=== PATIENT | male | born 1940 | race Caucasian/White ===

== ENCOUNTER 2016-09-21 05:01 | Emergency (ER) | payer OTHER ==
[~2016-09-21] VITALS: Ht 177.8 cm; Wt 87.5 kg
[~2016-09-21 05:01] MED LIST: CYAN10005 PO; GLUC10007 PO; LISI40TA PO; MULT-513 PO; OMEG10007 PO; VGR50 PO
[2016-09-21 05:06] VITALS: TEMP 36.5; Ht 177.8 cm; Wt 87.5 kg
--- NOTE | 2016-09-21 05:29 | EMERGENCY ROOM VISIT NOTE ---
History Report prepared by Kalpanaibshelton: Gordo Ford Under the Supervision of: Dr. Josh Ruggiero D.O. First contact with patient: 05:10 Chief Complaint: SHOULDER PAIN Stated Complaint: PAIN RAIDIATING FROM LT SHOULDER DOWN ARM/FINGERS History of Present Illness The patient is a 76 year old male who presents to the Emergency Room with complaints of persistent left shoulder pain for the past four days. The pain starts in the neck / shoulder area and radiates down the left arm. The patient denies chest pain. His pain is worse when he is trying to relax at night. The patient has had some relief from Aleve. He is also using ice packs and heating pads. The patient was working on his lawn when he felt some "pull" prior to the onset of pain. Source of History: patient Onset: four days ago Position: shoulder (left) Timing: other (persistent) Modifying Factors (Relieving): ibuprofen Associated Symptoms: No chest pain Review of Systems See HPI for pertinent positives and negatives. A total of ten systems were reviewed and were otherwise negative. Past Medical & Surgical Medical Problems: (1) Diabetes Family History Patient reports no known family medical history. Social History Smoking Status: Never Smoker Housing Status: lives with family Occupation Status: retired Current/Historical Medications Scheduled Cyanocobalamin (Vitamin B-12), Unknown Dose PO DAILY Fish Oil ([place]-3), 1 CAP PO DAILY Lisinopril (Zestril), 40 MG PO DAILY Methylprednisolone (Medrol Dosepak), 1 PKT PO UD Multivitamins/Minerals (Mvi With Minerals), 1 TAB PO DAILY Sildenafil Citrate (Viagra), 50 MG PO PRN Scheduled PRN Cyclobenzaprine Hcl (Flexeril), 10 MG PO TID PRN for Pain Hydrocodone/Acetaminophen 5MG/325MG ([place] 5MG/325MG), 1 TABLET PO Q6 PRN for Pain Miscellaneous Medications Glucosamine Sulfate (Glucosamine), 1,000 MG PO Allergies Coded Allergies: Amoxicillin (Verified Allergy, Unknown, fever, 12/02/15) Physical Exam Vital Signs Date Time Temp Pulse Resp B/P Pulse Ox O2 Delivery O2 Flow Rate FiO2 09/21/16 05:06 36.5 70 20 206/101 97 Room Air Physical Exam GENERAL: Awake, alert, well-appearing, in no distress HENT: Normocephalic, atraumatic. Oropharynx unremarkable. EYES: Normal conjunctiva. Sclera non-icteric. NECK: Supple. No nuchal rigidity. FROM. No JVD. RESPIRATORY: Clear to auscultation. CARDIAC: Regular rate, normal rhythm. Extremities warm and well perfused. Pulses equal. ABDOMEN: Soft, non-distended. No tenderness to palpation. No rebound or guarding. No masses. RECTAL: Deferred. BACK: Trapezial tenderness and spasm left upper back. MUSCULOSKELETAL: Chest examination reveals no tenderness. The back is symmetrical on inspection without obvious abnormality. There is no CVA tenderness to palpation. No joint edema. LOWER EXTREMITIES: Calves are equal size bilaterally and non-tender. No edema. No discoloration. NEURO: Normal sensorium. No sensory or motor deficits noted. SKIN: No rash or jaundice noted. Medical Decision & Procedures ECG Indication: back/shoulder pain Rate (beats per minute): 63 Rhythm: normal sinus Findings: no acute ischemic change, other (normal axis, normal intervals) ED Course 0512: The patient was evaluated in room B10. A complete history and physical exam was performed. 0530: Discussed the discharge instructions with the patient. He verbalized understanding. The patient is ready for discharge. Medical Decision Differential diagnosis includes sprain, strain, muscle spasm, pinched nerve, cervical herniated disc, neuropathy. Doubt ACS. I suspect that this is musculoskeletal in nature due to an injury that he sustained 3-4 days ago. I do not suspect acute coronary syndrome his EKG is nonischemic. I will place the patient on pain medicine muscle relaxers and steroids Impression Primary Impression: Back muscle spasm Scribe Attestation The scribe's documentation has been prepared under my direction and personally reviewed by me in its entirety. I confirm that the note above accurately reflects all work, treatment, procedures, and medical decision making performed by me. Departure Information Dispostion Home / Self-Care Prescriptions Methylprednisolone (MEDROL DOSEPAK) 4 Mg Lei 1 PKT PO UD for 6 Days, #1 PKT Prov: Josh Ruggiero, DO 09/21/16 Cyclobenzaprine Hcl (FLEXERIL) 10 Mg Tab 10 MG PO TID Y for Pain, #21 TAB Prov: Josh Ruggiero, DO 09/21/16 Hydrocodone/Acetaminophen 5MG/325MG ([place] 5MG/325MG) Tab 1 TABLET PO Q6 Y for Pain for 2 Days, #14 TAB Prov: Josh Ruggiero, 09/21/16 Referrals Art Cavazos D.ODilip (PCP) Forms HOME CARE DOCUMENTATION FORM, IMPORTANT VISIT INFORMATION Patient Instructions ED Spasm Back No Trauma, My [facility]
[2016-09-21] MEDS ORDERED: HYDR-5688 PO (05:32)
[2016-09-21] MEDS ORDERED: CYCL10TA6 PO (05:32)
[2016-09-21] MEDS ORDERED: METH4PAK PO (05:35)
[2016-09-21 05:51] VITALS: BP 169/101; PULSE 70; O2SAT 97
== END 2016-09-21 05:55 | disposition home or self-care (01) ==
LOC: C.EDB 05:03
DX: M62.830 Muscle spasm of back (principal); E11.9 Type 2 diabetes mellitus without complications

== ENCOUNTER 2016-10-17 01:05 | Emergency (ER) | payer OTHER ==
[~2016-10-17] VITALS: Ht 177.8 cm; Wt 83.6 kg
[2016-10-17 01:10] VITALS: TEMP 36.4; Ht 177.8 cm; Wt 83.6 kg
[2016-10-17] MEDS ORDERED: HYDR-5688 PO (01:44)
[2016-10-17] MEDS ORDERED: METH4PAK PO (01:44)
[2016-10-17] MEDS ORDERED: FLEXERIL HOME PACK 10 MG VIAL PO ONE (01:45)
[2016-10-17] MEDS ORDERED: NORCO 5/325MG HOME PACK PO ONE (01:45)
--- NOTE | 2016-10-17 01:45 | EMERGENCY ROOM VISIT NOTE ---
History Report prepared by Bong: Sotero Stuart Under the Supervision of: Dr. Camilo Moody M.D. First contact with patient: 01:22 Chief Complaint: NECK PAIN Stated Complaint: PAIN IN NECK History of Present Illness The patient is a 76 year old male who presents to the Emergency Room with complaints of intermittent left sided upper back pain beginning a month ago. He feels that he likely has a pinched nerve. He describes his pain as a feeling of "tension". The patient feels that if he were to receive a massage he feels that it would help. He has been seen by a chiropractor for his pain, which has helped. His pain is generally worse at night. He states that the pain and tightness radiates into his left arm and hand. The patient states that he has taken Advil for his pain today, but has seen no relief. He notes that he had a few alcoholic beverages tonight. He notes that his left arm as a "pins and needles" sensation throughout it. The patient states "I just want someone to rub my back". Source of History: patient Onset: a month ago Position: back (left upper) Quality: other ("tension") Timing: intermittent Modifying Factors (Worsening): other (at night) Modifying Factors (Relieving): other (Chiropractor) Note: The patient also complains of pain radiating into his left arm and hand, and a "pins and needles" sensation throughout his left arm. Review of Systems See HPI for pertinent positives & negatives. A total of 10 systems reviewed and were otherwise negative. Past Medical & Surgical Medical Problems: (1) Diabetes Family History Patient reports no known family medical history. Social History Smoking Status: Never Smoker Housing Status: lives with family Occupation Status: retired Current/Historical Medications Scheduled Cyanocobalamin (Vitamin B-12), Unknown Dose PO DAILY Fish Oil ([place]-3), 1 CAP PO DAILY Lisinopril (Zestril), 40 MG PO DAILY Methylprednisolone (Medrol Dosepak), 1 PKT PO UD Multivitamins/Minerals (Mvi With Minerals), 1 TAB PO DAILY Sildenafil Citrate (Viagra), 50 MG PO PRN Scheduled PRN Hydrocodone/Acetaminophen 5MG/325MG ([place] 5MG/325MG), 1-2 TABLET PO Q6H PRN for Pain Miscellaneous Medications Glucosamine Sulfate (Glucosamine), 1,000 MG PO Allergies Coded Allergies: Amoxicillin (Verified Allergy, Unknown, fever, 12/02/15) Physical Exam Vital Signs Date Time Temp Pulse Resp B/P Pulse Ox O2 Delivery O2 Flow Rate FiO2 10/17/16 01:54 74 18 156/96 96 Room Air 10/17/16 01:10 36.4 83 20 175/99 96 Room Air Physical Exam GENERAL: Patient is well appearing and in minimal distress. HEENT: No acute trauma, normocephalic atraumatic, mucous membranes moist, no nasal congestion, no scleral icterus. NECK: No stridor, no adenopathy, no meningismus, trachea is midline. LUNGS: No dyspnea. Clear to auscultation and equal bilaterally. No wheeze, no rhonchi. HEART: Regular rate and rhythm. No murmurs, rubs, gallops appreciated. ABDOMEN: Soft, nontender, bowel sounds positive, no masses appreciated, no peritonitis. BACK: No midline tenderness, no CVA tenderness. Tenderness to palpation with knot of the left shoulder muscles. Pain is improved with massage. EXTREMITIES: Normal motion all extremities, no cyanosis, no edema. NEUROLOGIC: Alert and oriented, no acute motor or sensory deficits, no focal weakness, cranial nerves grossly intact. SKIN: No rash, no jaundice, no diaphoresis. Medical Decision & Procedures Medications Administered Medications (Trade) Dose Ordered Sig/Rufino Route Start Time Stop Time Status Last Admin Dose Admin Acetaminophen/ Hydrocodone Bitart ([place] 5/325mg Home Pack) 1 homepack UD ONCE PO 10/17/16 01:45 10/17/16 01:46 DC 10/17/16 01:55 1 HOMEPACK Cyclobenzaprine HCl (FLEXERIL 10MG Home Pack) 1 homepack UD ONCE PO 10/17/16 01:45 10/17/16 01:46 DC 10/17/16 01:56 1 HOMEPACK Prednisone (PredniSONE TAB) 60 mg NOW STAT PO 10/17/16 01:42 10/17/16 01:44 DC 10/17/16 01:55 60 MG ED Course 0129: The patient was evaluated in room A12B. A complete history and physical exam was performed. 0137: I massaged the patient's upper left back per his request. He appeared to experience some relief. He is declining any further testing as he only wanted the massage. 0142: Ordered Prednisone Tab 60 mg PO. 0145: Ordered Flexeril 10 mg home pack PO, [place] 5/325 mg home pack PO. Reevaluated the patient. Discussed results and discharge instructions: he verbalized understanding and agreement. The patient is ready for discharge. Medical Decision 76 yr old with point TTP over left upper posterior shoulder. Adamantly refusing testing stating similar to previous muscle spasm that improved with steroids/pain meds. I was able to improve discomfort with point massage to area and release of considerable knot in the area. I did discuss my concerns this could be cardiac, cervical, etc which he vehemently refuses to accept and states he does not wish testing. He will be following up with PCP early next week. Aware he can return for further evaluation. Stable and comfortable at discharge. Reviewed risks narcotics, etc. Impression Primary Impression: Muscle spasm of left shoulder Additional Impression: Left cervical radiculopathy Scribe Attestation The scribe's documentation has been prepared under my direction and personally reviewed by me in its entirety. I confirm that the note above accurately reflects all work, treatment, procedures, and medical decision making performed by me. Departure Information Dispostion Home / Self-Care Prescriptions Methylprednisolone (MEDROL DOSEPAK) 4 Mg Lei 1 PKT PO UD for 6 Days, #1 PKT Prov: Camilo Moody M.D. 10/17/16 Hydrocodone/Acetaminophen 5MG/325MG ([place] 5MG/325MG) Tab 1-2 TABLET PO Q6H Y for Pain, #10 TAB Prov: Camilo Moody M.D. 10/17/16 Referrals Art Cavazos D.O. (PCP) Patient Instructions ED Spasm Muscle, My [facility] Additional Instructions Return if worsening symptoms, weakness, chest pain, shortness of breath or other concerning symptoms. Problem Qualifiers
[2016-10-17 01:54] VITALS: BP 156/96; PULSE 74; O2SAT 96
== END 2016-10-17 02:04 | disposition home or self-care (01) ==
LOC: C.EDB 01:06 → C.EDA 02:04
DX: S46.902A Unspecified injury of unspecified muscle, fascia and tendon at shoulder and upper arm level, left arm, initial encounter (principal); M54.12 Radiculopathy, cervical region; X58.XXXA Exposure to other specified factors, initial encounter; E11.9 Type 2 diabetes mellitus without complications

== ENCOUNTER 2016-10-19 09:25 | Emergency (ER) | payer OTHER ==
[~2016-10-19] VITALS: Ht 177.8 cm; Wt 83.1 kg
[~2016-10-19 09:25] MED LIST changes: +HYDR-5688 PO; +METH4PAK PO
[2016-10-19 09:29] VITALS: TEMP 36.7; Ht 177.8 cm; Wt 83.1 kg
[2016-10-19] MEDS ORDERED: CYCL10TA6 PO (10:07)
[2016-10-19] MEDS ORDERED: HYDR-5688 PO (10:07)
--- NOTE | 2016-10-19 10:07 | EMERGENCY ROOM VISIT NOTE ---
History Report prepared by Bong: Thu López Under the Supervision of: Dr. Samuel Lott M.D. First contact with patient: 09:51 Chief Complaint: MEDICATION REFILL REQUEST Stated Complaint: LEFT ARM PAIN-NEEDS MORE MEDICATION History of Present Illness The patient is a 76 year old male who presents to the Emergency Room with complaints of constant pain to the upper left back beginning 2 weeks prior to arrival. The patient describes the pain as a tightness and states that the pain radiates down his left arm causing his left hand to be numb. He believes he has a pinched nerve in his neck. The patient has been riding his bike for many hours at a time and notes that after the ride he notices an increase in his pain. The patient was in the ED 2 weeks ago and was given pain medication and a muscle relaxant. He was also seen in the ED 2 days ago and was given pain medication and Prednisone. He notes he did not receive a muscle relaxant which be states did help him. He also notes no changes in his symptoms from this visit. The patient has an appointment scheduled with Dr. Cavazos for Friday to have an MRI done. He denies neck pain. Source of History: patient Onset: 2 weeks MEDICAL OFFICE ASST Position: back (left upper) Quality: other (tightness) Timing: constant Modifying Factors (Relieving): other (pain medication and muscle relaxant) Associated Symptoms: + numbness, No neck pain Note: Patient is experiencing left arm pain. Review of Systems All systems have been listed, reviewed, and are negative other than those previously mentioned. Please see Additional Medical History Sheet. Past Medical & Surgical Medical Problems: (1) Diabetes Family History Patient reports no known family medical history. Social History Smoking Status: Never Smoker Smokeless Tobacco Use: No Housing Status: lives with family Occupation Status: retired Current/Historical Medications Scheduled Cyanocobalamin (Vitamin B-12), Unknown Dose PO DAILY Cyclobenzaprine Hcl (Flexeril), 10 MG PO TID Fish Oil ([place]-3), 1 CAP PO DAILY Lisinopril (Zestril), 40 MG PO DAILY Methylprednisolone (Medrol Dosepak), 1 PKT PO UD Multivitamins/Minerals (Mvi With Minerals), 1 TAB PO DAILY Sildenafil Citrate (Viagra), 50 MG PO PRN Scheduled PRN Hydrocodone/Acetaminophen 5MG/325MG ([place] 5MG/325MG), 1-2 TABLET PO Q6H PRN for Pain Hydrocodone/Acetaminophen 5MG/325MG ([place] 5MG/325MG), 1-2 TABLETS PO Q4 PRN for Pain Miscellaneous Medications Glucosamine Sulfate (Glucosamine), 1,000 MG PO Allergies Coded Allergies: Azithromycin (Verified Allergy, Unknown, fever/rash, 10/19/16) Physical Exam Vital Signs Date Time Temp Pulse Resp B/P Pulse Ox O2 Delivery O2 Flow Rate FiO2 10/19/16 10:15 64 16 118/76 99 10/19/16 09:29 36.7 91 18 163/107 98 Room Air Physical Exam GENERAL: Patient awake, alert, oriented x 3. Patient follows commands. Patient does not appear toxic. Patient is adequately hydrated and well- nourished. SKIN: No erythema, pallor, cyanosis or rash HEENT: Normal head, pupils equal, reactive to light and accommodation. Ears normal. Oral cavity and posterior pharynx appear normal. Neck: No point tenderness over neck. Tender over superior aspect of left trapezius. LUNGS: Clear to auscultation. No wheezes, no rales, no rhonchi. HEART: No murmurs. No gallops. No rubs EXTREMITIES: No signs of trauma. No pedal or pretibial edema. No calf or thigh tenderness. Motor sensory function intact to distally left arm. NEUROLOGIC: Cranial nerves II-XII within normal limits. No gross motor sensory function deficits. Medical Decision & Procedures ED Course 0952: Past medical records reviewed. The patient was evaluated in room B8. A complete history and physical examination was performed. 1012: Upon reevaluation, the patient appeared to have improvement of his symptoms. I discussed today's findings with him. He verbalized agreement of the treatment plan. He was discharged home. Medical Decision Nurses notes reviewed. Medical history sheet reviewed. Differential diagnosis includes but is not limited to: cervical radiculopathy, muscle strain/spasm. Patient offered option of having imaging done here today but he declined. Medication Reconciliation: I attest that I have personally reviewed the patient' s current medication list. Blood Pressure Screening: Patient was found to have an elevated blood pressure and was referred to their primary doctor for recheck and further treatment. The patient's symptoms are most consistent with cervical radiculopathy along with some spasm in his left upper trapezius. The patient requests indication for pain relief only. The patient is currently taking Medrol Dosepak. He was encouraged to check his blood sugars more frequently. Flexeril and hydrocodone were prescribed. The patient will follow-up with his family physician within the next several days. [place] Drug Monitoring Program Search Results: patient reviewed within database Drug Monitoring Findings: Patient received Hydrocodone 2 days ago. Impression Primary Impression: Cervical radiculopathy Additional Impression: Hypertension Scribe Attestation The scribe's documentation has been prepared under my direction and personally reviewed by me in its entirety. I confirm that the note above accurately reflects all work, treatment, procedures, and medical decision making performed by me. Departure Information Dispostion Home / Self-Care Prescriptions Cyclobenzaprine Hcl (FLEXERIL) 10 Mg Tab 10 MG PO TID, #20 TAB Prov: Samuel Lott M.D. 10/19/16 Hydrocodone/Acetaminophen 5MG/325MG ([place] 5MG/325MG) Tab 1-2 TABLETS PO Q4 Y for Pain, #20 TAB PRN PAIN Prov: Samuel Lott M.D. 10/19/16 Referrals Art Cavazos D.O. (PCP) Forms HOME CARE DOCUMENTATION FORM, IMPORTANT VISIT INFORMATION Patient Instructions My [facility] Additional Instructions 1-2 hydrocodone every 4 hours as needed for moderate to severe pain. One Flexeril every 8 hours until pain has resolved. Do not drive or operate machinery while taking hydrocodone or Flexeril. You may continue taking prednisone as prescribed but check your sugar more frequently. Follow-up with Dr. Cavazos on Friday. Have your blood pressure rechecked on Friday. Problem Qualifiers
[2016-10-19 10:15] VITALS: BP 118/76; PULSE 64; O2SAT 99
== END 2016-10-19 10:17 | disposition home or self-care (01) ==
LOC: C.EDB 09:26
DX: M54.12 Radiculopathy, cervical region (principal); I10 Essential (primary) hypertension; M54.6 Pain in thoracic spine; M79.602 Pain in left arm; R20.0 Anesthesia of skin; E11.9 Type 2 diabetes mellitus without complications; Z79.899 Other long term (current) drug therapy

== ENCOUNTER 2024-05-08 11:51 | Inpatient (IN) ==
--- NOTE | 2024-05-08 12:05 | Emergency Department Note ---
Impression & Plan Acute CVA (cerebrovascular accident), Acute hyponatremia ED Provider Note NAME: SOPHIE ORDONEZ AGE: 84 SEX: M : 1940 ARRIVES VIA: Ambulance INFORMANT: Patient ED PROVIDER(S): Selwyn Horowitz DO CHIEF COMPLAINT: Right-sided weakness HPI: Patient is an 84-year-old male with a past medical history of a GI bleed, alcohol use, hypertension and CKD and diabetes who presents to the ER for sudden onset of right-sided weakness just prior to arrival. He was sitting eating and noticed that his right leg was weak and he could not walk. He also noticed that he had weakness in his right arm. He is having trouble writing as well with his arm. He denies any headache or change or loss of vision. No chest pain or shortness of breath. No dysuria, urgency, or frequency. No other exacerbating or remitting factors. ADDITIONAL HISTORY OBTAINED: Per HPI Chronic Medical/Social Conditions Affecting Care: Per HPI PAST MEDICAL HISTORY:See Below PAST SURGICAL HISTORY:See Below FAMILY HISTORY:See Below SOCIAL HISTORY:See Below HOME MEDICATIONS:See Below ALLERGIES:See Below VITALS:See Below PHYSICAL EXAMINATION: GENERAL: Sitting up in bed, alert, well appearing, well nourished, no distress, non-toxic EYE EXAM: normal conjunctiva. PERRL and EOM's grossly intact. OROPHARYNX: no exudate, no erythema, lips, buccal mucosa, and tongue normal and mucous membranes are moist NECK: supple, no nuchal rigidity, no adenopathy, non-tender LUNGS: Clear to auscultation. Normal chest wall mechanics HEART: no murmurs, S1 normal and S2 normal ABDOMEN: abdomen soft, non-tender, normo-active bowel sounds, no masses, no rebound or guarding. UPPER EXTREMITIES: upper extremities are grossly normal. LOWER EXTREMITIES: No pitting edema. NEURO EXAM: Normal sensorium, cranial nerves II-XII intact, normal speech, weakness with right upper and right lower extremity in comparison to the left. + drift. Gross sensation intact. MEDICAL DECISION MAKING: Patient is an 84-year-old male who presents ER for the above-stated complaint. IV was established blood work was obtained. Stroke alert was called. Labs show no significant leukocytosis or anemia. INR unremarkable. BMP with LFTs bilirubin and mag was unremarkable. Troponin was negative. Patient does have a right-sided deficit. Telestroke was called. Patient was seen and evaluated by telestroke and they recommended TNK. Patient was admitted for stroke. Following the bolus of TNK started having expressive aphasia. CT was updated and patient was taken back over for repeat scan of the head which showed no obvious bleed. I did read discussed this with Amanda telestroke Dr. Tan who initially evaluated the patient. We also spoke with neurointervention initially on the initial consult and they noted that as it was an M3 segment he was unable to get to that for recovery/retrieval. Patient was given a dose of labetalol due to being hypertensive following administration of TNK. Patient was monitored closely. ICU was updated. Consults/Care Managements Discussions: Per [facility] Triage Nursing notes reviewed. Limited review of prior medical records performed Vital Signs: reviewed and remarkable for no significant abnormalities Differential diagnosis: Differential Diagnosis includes but is not limited to ischemic Stroke, hemorrhagic stroke, bells palsy, mass, neoplasm, migraine headache, seizure, subarachnoid hemorrhage, TIA, and transient global amnesia. ER treatment provided: See below Diagnostics interpreted by me include EKG and cardiac monitoring as listed below: -Cardiac Monitoring: An order was placed for continuous cardiac monitoring. The monitor shows a rate of 70 with sinus rhythm. -ECG: Sinus rhythm rate 63 Normal axis No PVCs QTc 446 -Laboratory studies:Interpreted by me as stated above in MDM and shown below. Imaging studies: Xrays: As interpreted by me:none CTs show: CT of the head per my preliminary interpreted and showed no obvious large bleed CT of the head as well as angios of the head and neck as described above per radiology Procedures:none Critical Care: I have personally spent 75 minutes of critical care time in the direct management of this patient. This includes bedside care, interpretation of diagnostic studies, and testing, discussion with consultants, patient, and family members, and other required patient management activities. This 75 minutes is in excess of all separately billable procedures. Past Med/Surg History Problem List (Updated 05/08/24 @ 18:03 by Selwyn Horowitz DO) Acute hyponatremia (Acute) Acute CVA (cerebrovascular accident) (Acute) Acute on chronic kidney failure Diverticulitis (Acute) Abscess (Acute) Diverticulitis Encounter for pre-operative examination Rectal bleed GI bleed Alcohol use (Chronic) HTN (hypertension) (Chronic) CKD (chronic kidney disease), stage III (Chronic) Diabetes mellitus, type II (Chronic) Upper GI bleeding (Acute) Medical History GERD (gastroesophageal reflux disease) Surgical History History of colonoscopy Family History Other Alzheimer disease Social History Smoking Status: Unknown if ever smoked Tobacco Type: Pipe Second Hand Exposure: No; Do You Dip or Chew Tobacco: No; Hx Alcohol Use: Yes Alcohol type: beer, wine and hard liquor Alcohol Intake Frequency Comment: average 3 drinks per day Hx Substance Use: No Preferred Language: French Communication Ability: Effective Register Of Wills Required: No Beliefs That Will Affect Care: None Current Living Situation: Alone Feels Safe at Home: Yes Assistive Devices: None Allergies Allergies Allergy/AdvReac Type Severity Reaction Status Date / Time amoxicillin Allergy Mild FEVER, RASH Verified 07/18/22 20:15 Home Meds Home Medications Medication Instructions Recorded Confirmed aspirin 81 mg tablet,delayed 81 mg PO DAILY 07/18/22 05/08/24 release cholecalciferol (vitamin D3) 10 20 mcg PO DAILY 07/18/22 05/08/24 mcg (400 unit) tablet (Vitamin D3) cyanocobalamin (vitamin B-12) 1,000 mcg PO QPM 07/18/22 05/08/24 1,000 mcg tablet (Vitamin B-12) empagliflozin 25 mg tablet 25 mg PO QAM 07/18/22 05/08/24 (Jardiance) ferrous sulfate 325 mg (65 mg 325 mg PO QPM 07/18/22 05/08/24 iron) tablet [id number]-[id number] C-Mn 500 1 cap PO AMHS 07/18/22 05/08/24 mg-400 mg capsule omeprazole 40 mg capsule,delayed 40 mg PO QAM 07/18/22 05/08/24 release sildenafil (pulm.hypertension) 20 20 mg PO DIRECTED 1-4 hr before 07/18/22 05/08/24 mg tablet sex allopurinol 100 mg tablet 100 mg PO DAILY 05/08/24 05/08/24 hydralazine 10 mg tablet 10 mg PO DAILY 05/08/24 05/08/24 latanoprost 0.005 % eye drops 1 drp OPB QPM 05/08/24 05/08/24 Results & Data (ED) Vital Signs Vital Signs - 24 hr 05/08/24 11:47 Temperature 36.8 C Temperature Source Oral Pulse Rate 62 Respiratory Rate 18 Respiratory Effort / Characteristics Non-Labored Spontaneous Respiratory Depth Normal Blood Pressure 158/86 H Blood Pressure Mean 110 Pulse Oximetry 94 Oxygen Delivery Method Room Air Sepsis Recent Fever Within 48 Hours No Sepsis New/Unexplained Change in Mental Status No Sepsis Action Taken by Nursing No Action Required Laboratory Data 05/08/24 12:08 05/08/24 12:08 Lab Results 05/08/24 05/08/24 Range/Units 12:08 12:12 WBC 6.33 (4.8-10.8) K/ul RBC 5.05 (4.70-6.10) M/uL Hgb 14.9 (14.0-18.0) g/dl POC Hgb 15.6 (14.0-18.0) g/dl Hct 44.1 (42.0-52.0) % POC Hct 46 (42-52) % MCV 87.3 (80.0-100.0) fL MCH 29.5 (25.0-34.0) pg MCHC 33.8 (32.0-36.0) g/dL RDW Std Deviation 46.4 H (36.4-46.3) fL RDW Coeff of Vaibhav 14.5 (11.5-14.5) % Plt Count 192 (130-400) K/uL MPV 9.8 (9.4-12.4) fL Immature Gran % (Auto) 0.3 % Neut % (Auto) 78.8 % Lymph % (Auto) 13.0 % [place] % (Auto) 6.6 % Eos % (Auto) 0.5 % Baso % (Auto) 0.8 % Neut # (Auto) 4.99 (1.40-6.50) K/uL Lymph # (Auto) 0.82 L (1.20-3.40) K/uL [place] # (Auto) 0.42 (0.11-0.59) K/uL Eos # (Auto) 0.03 (0.00-0.50) K/uL Baso # (Auto) 0.05 (0.00-0.20) K/uL Immature Gran # (Auto) 0.02 (0.01-0.20) K/uL POC Sodium 135 (135-144) mmol/L POC Potassium 4.2 (3.3-5.0) mmol/L POC Chloride 102 (101-112) mmol/L POC Total CO2 24 (24-31) mmol/L POC Anion Gap 13.0 L (16-25) mmol/L POC BUN 30 H (7-18) mg/dl POC Creatinine 1.5 H (0.6-1.3) mg/dl POC Glucose (other) 189 H (70-99) mg/dl POC Ioniz Calcium Saumya 1.19 (1.12-1.32) mmol/l Administered Medications Insulin Aspart (Insulin Aspart Per Unit Charge) 0 units SC ACHS CRISTIAN Stop: 06/07/24 16:29 Last Admin: 05/08/24 16:13 Dose: Not Given Documented By: JONAH Co-signed By: GPF Discontinued Medications Tenecteplase 20 mg/ Syringe 4 mls @ 52.8 mls/min IV NOW ONE; Protocol Stop: 05/08/24 12:31 Last Admin: 05/08/24 12:38 Dose: Not Given Documented By: ETIENNE Ioversol (Optiray 320 125ml) 119 ml IV ONCE ONE Stop: 05/08/24 12:07 Last Admin: 05/08/24 12:06 Dose: 119 ml Documented By: ANGELITA Labetalol HCl (Labetalol Hcl Iv 5 Mg/Ml 20ml) 10 mg IV NOW STA Stop: 05/08/24 13:19 Last Admin: 05/08/24 13:48 Dose: 10 mg Documented By: ETIENNE Miscellaneous (Stat Iv/Im) 1 each N/A NOW STA Stop: 05/08/24 12:23 Last Admin: 05/08/24 12:37 Dose: Not Given Documented By: ETIENNE Sodium Chloride (Sodium Chloride 0.9% 10ml Flush) 20 ml IV NOW STA Stop: 05/08/24 12:23 Last Admin: 05/08/24 12:37 Dose: 20 ml Documented By: ETIENNE Imaging Data Radiologist's Impression: Head CT 05/08/24 11:49 CT OF THE HEAD WITHOUT CONTRAST CLINICAL HISTORY: neuro deficit, acute stroke suspected COMPARISON STUDY: Head CT July 18, 2022. TECHNIQUE: Helical axial images of the head were obtained without IV contrast. Automated exposure control was utilized for the study. A dose lowering technique was utilized adhering to the principles of ALARA. FINDINGS: No acute intracranial hemorrhage, midline shift or mass effect is present. White matter hypodensity suggests small vessel disease. A few small hypodensities within the left frontal lobe favor old infarcts. The ventricular system is unremarkable. The basal cisterns are patent. No extra-axial collections are present. There are no findings to suggest acute dural sinus thrombosis or acute territorial infarct. No significant calvarial abnormalities are present. Visualized portions of the sinuses and mastoid air cells are clear. IMPRESSION: 1. No acute intracranial findings. 2. A few suspected old small left frontal lobe infarcts. ACT 112: Negative or not required by law. Electronically signed by: Issa Graf M.D. 05/08/2024 12:11 PM Head CTA 05/08/24 11:49 CTA ANGIOGRAPHY OF THE HEAD CLINICAL HISTORY: neuro deficit, acute stroke suspected COMPARISON STUDY: Head CT July 18, 2022. TECHNIQUE: Helical axial images of the head were obtained following uneventful intravenous administration of 119 cc of Optiray. Sagittal and coronal reconstructions were viewed as well as maximal intensity projections on an independent 3-D workstation. Automated exposure control was utilized for the study. A dose lowering technique was utilized adhering to the principles of ALARA. CT DOSE: 1225.61 mGy.cm FINDINGS: The bilateral M1, M2, A1 and A2 segments are patent. No intracranial aneurysm. There is an attenuated M3 branch of the left middle cerebral artery shown on image 147 of 265. Posterior circulation is intact. There is no dissection within the intracranial vessels. There is moderate stenosis within the left P1 segment. IMPRESSION: 1. Attenuated M3 branch of the left middle cerebral artery. This may reflect acute vessel occlusion versus severe stenosis. 2. Moderate stenosis within the left P1 segment. 3. No intracranial aneurysm. ACT 112: Negative or not required by law. Electronically signed by: Issa Graf M.D. 05/08/2024 12:23 PM Neck CTA 05/08/24 11:49 CT ANGIOGRAPHY OF THE NECK WITH CONTRAST CLINICAL HISTORY: neuro deficit, acute stroke suspected COMPARISON STUDY: No previous studies for comparison. Technique: CT angiography of the carotid and vertebral arteries was obtained using Optiray and 3D reconstruction on an independent workstation. NASCET criteria was utilized. Automated exposure control was utilized for the study. A dose lowering technique was utilized adhering to the principles of ALARA. Findings: Visualized portions of the lung apices are unremarkable. There is no cervical lymphadenopathy. No cervical spine fractures are present. There is severe stenosis at the origin of the right vertebral artery. Left vertebral artery is unremarkable. There is no aneurysm within neck. There is mild plaque within the proximal right internal carotid artery without stenosis. There is extensive plaque within the left carotid bifurcation. This results in severe stenosis of the distal left common carotid artery and the proximal left internal and external carotid arteries. There is approximate 80% stenosis of the proximal left internal carotid artery. IMPRESSION: 1. Extensive atherosclerotic plaque within the left carotid bifurcation which results in severe stenosis of the distal left common carotid artery and the proximal left internal and external carotid arteries with approximate 80% stenosis of the proximal left internal carotid artery. 2. Severe stenosis at the origin of the right vertebral artery. ACT 112: Negative or not required by law. Electronically signed by: Issa Graf M.D. 05/08/2024 12:20 PM Discharge Plan Visit Data Chief Complaint: Stroke Alert Stated Complaint: STROKE ALERT ED Provider: Selwyn Horowitz Discharge Problem: Acute CVA (cerebrovascular accident), Acute hyponatremia Patient Disposition: Admitted As Inpatient Discharge Instructions Interventions: ED Discharge Assessment Last Done: 05/08/24 14:01
[2024-05-08] MEDS: OPTIRAY 320 125ml IV ONE (12:06)
--- NOTE | 2024-05-08 12:13 | CT Scan Report ---
CT OF THE HEAD WITHOUT CONTRAST CLINICAL HISTORY: neuro deficit, acute stroke suspected COMPARISON STUDY: Head CT July 18, 2022. TECHNIQUE: Helical axial images of the head were obtained without IV contrast. Automated exposure con trol was utilized for the study. A dose lowering technique was utilized adhering to the principles o f ALARA. FINDINGS: No acute intracranial hemorrhage, midline shift or mass effect is present. White matter hyp odensity suggests small vessel disease. A few small hypodensities within the left frontal lobe favor old infarcts. The ventricular system is unremarkable. The basal cisterns are patent. No extra-axial c ollections are present. There are no findings to suggest acute dural sinus thrombosis or acute territ orial infarct. No significant calvarial abnormalities are present. Visualized portions of the sinuses and mastoid air cells are clear. IMPRESSION: 1. No acute intracranial findings. 2. A few suspected old small left frontal lobe infarcts. ACT 112: Negative or not required by law. Electronically signed by: Issa Graf M.D. 05/08/2024 12:11 PM
--- NOTE | 2024-05-08 12:23 | CT Scan Report ---
CT ANGIOGRAPHY OF THE NECK WITH CONTRAST CLINICAL HISTORY: neuro deficit, acute stroke suspected COMPARISON STUDY: No previous studies for comparison. Technique: CT angiography of the carotid and vertebral arteries was obtained using Optiray and 3D rec onstruction on an independent workstation. NASCET criteria was utilized. Automated exposure control was utilized for the study. A dose lowering technique was utilized adhering to the principles of ALA RA. Findings: Visualized portions of the lung apices are unremarkable. There is no cervical lymphadenopat hy. No cervical spine fractures are present. There is severe stenosis at the origin of the right vert ebral artery. Left vertebral artery is unremarkable. There is no aneurysm within neck. There is mild plaque within the proximal right internal carotid artery without stenosis. There is extensive plaque within the left carotid bifurcation. This results in severe stenosis of the distal left common caroti d artery and the proximal left internal and external carotid arteries. There is approximate 80% steno sis of the proximal left internal carotid artery. IMPRESSION: 1. Extensive atherosclerotic plaque within the left carotid bifurcation which results in severe steno sis of the distal left common carotid artery and the proximal left internal and external carotid beth kmi with approximate 80% stenosis of the proximal left internal carotid artery. 2. Severe stenosis at the origin of the right vertebral artery. ACT 112: Negative or not required by law. Electronically signed by: Issa Graf M.D. 05/08/2024 12:20 PM
[2024-05-08 12:25] LABS: iSTAT Creatinine 1.5 mg/dl (0.6-1.3); iSTAT Hemoglobin 15.6 g/dl (14.0-18.0); iSTAT Ionized Calcium 1.19 mmol/l (1.12-1.32); iSTAT Potassium 4.2 mmol/L (3.3-5.0)
--- NOTE | 2024-05-08 12:26 | CT Scan Report ---
CTA ANGIOGRAPHY OF THE HEAD CLINICAL HISTORY: neuro deficit, acute stroke suspected COMPARISON STUDY: Head CT July 18, 2022. TECHNIQUE: Helical axial images of the head were obtained following uneventful intravenous administr ation of 119 cc of Optiray. Sagittal and coronal reconstructions were viewed as well as maximal inten sity projections on an independent 3-D workstation. Automated exposure control was utilized for the study. A dose lowering technique was utilized adhering to the principles of ALARA. CT DOSE: 1225.61 mGy.cm FINDINGS: The bilateral M1, M2, A1 and A2 segments are patent. No intracranial aneurysm. There is an attenuated M3 branch of the left middle cerebral artery shown on image 147 of 265. Posterior circulat ion is intact. There is no dissection within the intracranial vessels. There is moderate stenosis wit hin the left P1 segment. IMPRESSION: 1. Attenuated M3 branch of the left middle cerebral artery. This may reflect acute vessel occlusion v ersus severe stenosis. 2. Moderate stenosis within the left P1 segment. 3. No intracranial aneurysm. ACT 112: Negative or not required by law. Electronically signed by: Issa Graf M.D. 05/08/2024 12:23 PM
[2024-05-08] MEDS: TENECTEPLASE 22 MG in SYRINGE 0 ML IV ONE (12:27)
[2024-05-08] MEDS ORDERED: No Aspirin within 24hrs of THROMBOLYTIC-Stroke PO SCH (12:30)
[2024-05-08 12:34] LABS: Basophils # (auto) 0.05 K/uL (0.00-0.20); Basophils % (auto) 0.8 %; Eosinophils # (auto) 0.03 K/uL (0.00-0.50); Eosinophils % (auto) 0.5 %; Hematocrit (blood only) 44.1 % (42.0-52.0); Hemoglobin 14.9 g/dl (14.0-18.0); Immature Granulocytes # (auto) 0.02 K/uL (0.01-0.20); Immature Granulocytes % (auto) 0.3 %; Lymphocytes # (auto) 0.82 K/uL (1.20-3.40); Mean Corpuscular Hemoglobin 29.5 pg (25.0-34.0); Mean Corpuscular Hgb Conc 33.8 g/dL (32.0-36.0); Mean Corpuscular Volume 87.3 fL (80.0-100.0); Mean Platelet Volume 9.8 fL (9.4-12.4); Monocytes # (auto) 0.42 K/uL (0.11-0.59); Monocytes % (auto) 6.6 %; Neutrophils # (auto) 4.99 K/uL (1.40-6.50); Neutrophils % (auto) 78.8 %; Platelet Count 192 K/uL (130-400); RDW Coefficient of Variation 14.5 % (11.5-14.5); RDW Standard Deviation 46.4 fL (36.4-46.3); Red Blood Count 5.05 M/uL (4.70-6.10); White Blood Count 6.33 K/ul (4.8-10.8)
[2024-05-08] MEDS: STAT IV/IM STA (12:37)
[2024-05-08] MEDS: SODIUM CHLORIDE 0.9% 10ML FLUSH IV STA (12:37)
[2024-05-08] MEDS: TENECTEPLASE 20 MG in SYRINGE 0 ML IV ONE (12:38)
[2024-05-08 12:53] LABS: Albumin Globulin Ratio 1.4 (0.9-2); Albumin Level 3.8 gm/dl (3.4-5.0); Bilirubin,Total 0.7 mg/dl (0.2-1.0); Calcium 8.8 mg/dl (8.6-10.3); Creatinine Clr Calc Pharmacy 36.7 ml/min; Globulin 2.8 gm/dl (2.5-4.0); Magnesium 1.9 mg/dl (1.7-2.4); Potassium 4.1 mmol/L (3.5-5.1); Total Protein 6.6 gm/dl (6.0-8.3)
[2024-05-08 12:59] LABS: Troponin I High Sensitivity 10.7 pg/ml (0-20)
--- NOTE | 2024-05-08 13:02 | History & Physical Report ---
Date of Service May 08, 2024 Assessment & Plan (1) Acute CVA (cerebrovascular accident): Plan Mg Little is an 84-year-old male with past medical history significant for DM type II, diabetic polyneuropathy, alcohol use, arthritis, gout, HTN, GERD, Anderson's esophagus, history of diverticulitis and CKD stage III who presented to the ED on 05/08/2024 via EMS secondary to strokelike symptoms. Patient reportedly with sudden onset of right-sided weakness prior to arrival. He was also having trouble writing with his right arm. All of these symptoms reportedly started to occur around 11:20AM. Patient was made a stroke alert prior to arrival. Initial head CT without contrast did not reveal any acute intracranial findings however it did note a few suspected old small left frontal lobe infarcts. Head CTA revealed an attenuated M3 branch of the left middle cerebral artery (may reflect acute vessel occlusion vs severe stenosis) and moderate stenosis within the left P1 segment. Neck CTA showed extensive atherosclerotic plaque within the left carotid bifurcation resulting in severe stenosis of the distal left common carotid artery and the proximal left internal and external carotid arteries with approximate 80% stenosis of the proximal left internal carotid artery. Neck CTA also revealed severe stenosis at the origin of the right vertebral artery. Given his presenting symptoms and radiographic findings as per above, patient was administered TNK as advised by the TeleStroke neurologist. Patient developed expressive aphasia and word finding difficulty following administration of the TNK per staff in the ED. Repeat stat head CT without contrast was obtained in the ED following his change in mental status which did not show any evidence of acute intracranial hemorrhage however it did once again note several hypodense foci within the left frontal lobe consistent with infarct as previously seen on his prior head CT - although age indeterminate, it is assumed that these are old areas of infarct. Patient's right-sided weakness has significantly improved following administration of the TNK. His expressive aphasia and word finding difficulty however still persist. Acute CVA s/p TNK Administration: History as per above and HPI. Presenting labs + EKG rather unremarkable. Patient to ICU s/p TNK administration - ICU consulted and made of patient via TT. Repeat head CT in 24 hours following TNK administration to monitor for any evidence of bleeding. Complete bedrest. NPO for now pending speech therapy evaluation. Contract Technician also consulted for nutritional assessment. Brain MRI, echocardiogram pending. Neurology consult pending. Lipid panel, Hgb A1c in AM. PT/OT evals pending. Continue routine neuro checks. Starting Lipitor 40mg daily tomorrow AM. Allowing for permissive hypertension ISO acute CVA. CKD Stage III: Cr stable at 1.5 on admission, baseline Cr ~1.4-1.7 per chart review. Avoid nephrotoxic medications when able. Monitor renal function closely and renally dose medications when able. DM Type II: Hold home agents, SSI regimen while inpatient. Currently NPO as per above, glucose elevated slightly at 189 on admission. BSG checks ACHS. Most recent Hgb A1c was 7.3% approximately 1 month ago per chart review. Repeat Hgb A1c in AM as per above. Prior Alcohol Use: Patient with history of alcohol use disorder per chart review. Unsure of how much alcohol patient typically consumes secondary to his expressive aphasia and word finding difficulty s/p TNK as per above. As a precaution, will start IV thiamine + folic acid daily beginning tomorrow AM. Monitor for any signs of alcohol withdrawal. Other Chronic Medical Conditions: * HTN - Home hydralazine on hold for now ISO above. Of note, home ASA on hold for now s/p TNK administration. * Gout/GERD/Iron Deficiency - Can resume medications for these specific conditions when able. Can also resume home latanoprost eye drops. DVT Prophylaxis: SCDs/TEDs ISO TNK administration. Code Status: FULL CODE PCP: Art Cavazos DO Disposition: Admit to ICU for closer monitoring s/p TNK administration. Patient seen in collaboration with Dr. Dahl. Please see addendum. I spent a total of 55 minutes coordinating, documenting, and providing care for this patient excluding time spent in the performance of separately billed services. This included personally reviewing all current laboratories and imaging studies, medical reconciliation, outpatient chart review and discussion with specialists. This chart was completed in part utilizing Speech Voice Recognition Software. Grammatical errors, random word insertions, pronoun errors, and incomplete sentences are an occasional consequence of this system due to software limitations, ambient noise, and hardware issues. Any formal questions or concerns about the content, text, or information contained within the body of this dictation should be directly addressed to the provider for clarification. History of Present Illness Chief Complaint: Strokelike Symptoms Primary Care Provider: DO Mg Rondon is an 84-year-old male with past medical history significant for DM type II, diabetic polyneuropathy, alcohol use, arthritis, gout, HTN, GERD, Anderson's esophagus, history of diverticulitis and CKD stage III who presented to the ED on 05/08/2024 via EMS secondary to strokelike symptoms. Patient seen at bedside in the ED with Dr. Dahl. Patient reportedly with sudden onset of right-sided weakness prior to arrival; he was sitting down to eat when he noticed that the entire right side of his body became suddenly weak to the point where he could no longer walk per EMS report - patient had personally called EMS. He was also having trouble writing with his right arm. All of these symptoms reportedly started to occur around 11:20AM. Initial head CT without contrast in the ED did not reveal any acute intracranial findings however it did note a few suspected old small left frontal lobe infarcts. Head CTA revealed an attenuated M3 branch of the left middle cerebral artery (may reflect acute vessel occlusion versus severe stenosis) and moderate stenosis within the left P1 segment. Neck CTA showed extensive atherosclerotic plaque within the left carotid bifurcation resulting in severe stenosis of the distal left common carotid artery and the proximal left internal and external carotid arteries with approximate 80% stenosis of the proximal left internal carotid artery. Neck CTA also revealed severe stenosis at the origin of the right vertebral artery. Given his presenting symptoms and radiographic findings, patient was administered TNK as advised by the TeleStroke neurologist. Patient developed expressive aphasia and word finding difficulty following administration of the TNK per staff in the ED - therefore most history was obtained from nursing staff in the ED and associated chart review. Repeat stat head CT was obtained in the ED following his change in mental status which did not show any evidence of acute intracranial hemorrhage however it did once again note several hypodense foci within the left frontal lobe consistent with infarct as previously seen on his prior head CT - although age indeterminate, it is assumed that these are old areas of infarct. Patient's right-sided weakness has significantly improved following administration of the TNK. Allergies Allergy/AdvReac Type Severity Reaction Status Date / Time amoxicillin Allergy Mild FEVER, RASH Verified 07/18/22 20:15 Home Medications Medication Instructions Recorded Confirmed Type aspirin 81 mg tablet,delayed 81 mg PO DAILY 07/18/22 05/08/24 History release cholecalciferol (vitamin D3) 10 20 mcg PO DAILY 07/18/22 05/08/24 History mcg (400 unit) tablet (Vitamin D3) cyanocobalamin (vitamin B-12) 1,000 mcg PO QPM 07/18/22 05/08/24 History 1,000 mcg tablet (Vitamin B-12) empagliflozin 25 mg tablet 25 mg PO QAM 07/18/22 05/08/24 History (Jardiance) ferrous sulfate 325 mg (65 mg 325 mg PO QPM 07/18/22 05/08/24 History iron) tablet gmriijlelij-qzxquytxh-tgv C-Mn 500 1 cap PO AMHS 07/18/22 05/08/24 History mg-400 mg capsule omeprazole 40 mg capsule,delayed 40 mg PO QAM 07/18/22 05/08/24 History release sildenafil (pulm.hypertension) 20 20 mg PO DIRECTED 1-4 hr before 07/18/22 05/08/24 History mg tablet sex allopurinol 100 mg tablet 100 mg PO DAILY 05/08/24 05/08/24 History hydralazine 10 mg tablet 10 mg PO DAILY 05/08/24 05/08/24 History latanoprost 0.005 % eye drops 1 drp OPB QPM 05/08/24 05/08/24 History Past Med/Surg History Problem List Acute CVA (cerebrovascular accident) Acute on chronic kidney failure Diverticulitis (Acute) Abscess (Acute) Diverticulitis Encounter for pre-operative examination Rectal bleed GI bleed Alcohol use (Chronic) HTN (hypertension) (Chronic) CKD (chronic kidney disease), stage III (Chronic) Diabetes mellitus, type II (Chronic) Upper GI bleeding (Acute) Medical History GERD (gastroesophageal reflux disease) Surgical History History of colonoscopy Family History Other Alzheimer disease Social History Smoking Status: Unknown if ever smoked Tobacco Type: Pipe Second Hand Exposure: No; Do You Dip or Chew Tobacco: No; Hx Alcohol Use: Yes Alcohol type: beer, wine and hard liquor Alcohol Intake Frequency Comment: average 3 drinks per day Hx Substance Use: No Preferred Language: Romanian Communication Ability: Effective Chuck Splitter Required: No Beliefs That Will Affect Care: None Current Living Situation: Alone Feels Safe at Home: Yes Assistive Devices: None Review of Systems Review of Systems: At least ten systems reviewed and negative, except as noted in the HPI. Physical Exam Physical Exam: Please refer to Dr. Dahl's addendum for physical examination findings. Results & Data Results & Data Vital Signs (Past 12 Hours) Vital Signs Temp Pulse Pulse Resp BP BP Pulse Ox 05/08/24 12:42 61 18 157/98 H 93 05/08/24 12:30 63 16 176/93 H 97 05/08/24 12:23 161/94 H 05/08/24 12:21 66 19 161/94 H 05/08/24 12:15 163/96 H 05/08/24 12:12 65 05/08/24 11:47 36.8 C 62 18 158/86 H 94 O2 Del Method 05/08/24 12:42 Room Air 05/08/24 12:30 05/08/24 12:23 05/08/24 12:21 05/08/24 12:15 05/08/24 12:12 05/08/24 11:47 Room Air Laboratory Results Short CBC 05/08/24 Range/Units 12:08 WBC 6.33 (4.8-10.8) K/ul Hgb 14.9 (14.0-18.0) g/dl Hct 44.1 (42.0-52.0) % Plt Count 192 (130-400) K/uL BMP 05/08/24 12:08 Sodium 134 L Potassium 4.1 Chloride 103 Carbon Dioxide 25 BUN 30 H Creatinine 1.50 H Glucose 194 H Calcium 8.8 Liver Function 05/08/24 Range/Units 12:08 Total Bilirubin 0.7 (0.2-1.0) mg/dl AST 11 L (13-39) U/L ALT 9 (7-52) U/L Alkaline Phosphatase 71 (34-104) U/L Albumin 3.8 (3.4-5.0) gm/dl Diagnostic Findings Head CT 05/08/24 11:49 CT OF THE HEAD WITHOUT CONTRAST CLINICAL HISTORY: neuro deficit, acute stroke suspected COMPARISON STUDY: Head CT July 18, 2022. TECHNIQUE: Helical axial images of the head were obtained without IV contrast. Automated exposure control was utilized for the study. A dose lowering technique was utilized adhering to the principles of ALARA. FINDINGS: No acute intracranial hemorrhage, midline shift or mass effect is present. White matter hypodensity suggests small vessel disease. A few small hypodensities within the left frontal lobe favor old infarcts. The ventricular system is unremarkable. The basal cisterns are patent. No extra-axial collections are present. There are no findings to suggest acute dural sinus thrombosis or acute territorial infarct. No significant calvarial abnormalities are present. Visualized portions of the sinuses and mastoid air cells are clear. IMPRESSION: 1. No acute intracranial findings. 2. A few suspected old small left frontal lobe infarcts. ACT 112: Negative or not required by law. Electronically signed by: Issa Graf M.D. 05/08/2024 12:11 PM Head CTA 05/08/24 11:49 CTA ANGIOGRAPHY OF THE HEAD CLINICAL HISTORY: neuro deficit, acute stroke suspected COMPARISON STUDY: Head CT July 18, 2022. TECHNIQUE: Helical axial images of the head were obtained following uneventful intravenous administration of 119 cc of Optiray. Sagittal and coronal r econstructions were viewed as well as maximal intensity projections on an independent 3-D workstation. Automated exposure control was utilized for the study. A dose lowering technique was utilized adhering to the principles of ALARA. CT DOSE: 1225.61 mGy.cm FINDINGS: The bilateral M1, M2, A1 and A2 segments are patent. No intracranial aneurysm. There is an attenuated M3 branch of the left middle cerebral artery shown on image 147 of 265. Posterior circulation is intact. There is no dissection within the intracranial vessels. There is moderate stenosis within the left P1 segment. IMPRESSION: 1. Attenuated M3 branch of the left middle cerebral artery. This may reflect acute vessel occlusion versus severe stenosis. 2. Moderate stenosis within the left P1 segment. 3. No intracranial aneurysm. ACT 112: Negative or not required by law. Electronically signed by: Issa Graf M.D. 05/08/2024 12:23 PM Neck CTA 05/08/24 11:49 CT ANGIOGRAPHY OF THE NECK WITH CONTRAST CLINICAL HISTORY: neuro deficit, acute stroke suspected COMPARISON STUDY: No previous studies for comparison. Technique: CT angiography of the carotid and vertebral arteries was obtained using Optiray and 3D reconstruction on an independent workstation. NASCET criteria was utilized. Automated exposure control was utilized for the study. A dose lowering technique was utilized adhering to the principles of ALARA. Findings: Visualized portions of the lung apices are unremarkable. There is no cervical lymphadenopathy. No cervical spine fractures are present. There is severe stenosis at the origin of the right vertebral artery. Left vertebral artery is unremarkable. There is no aneurysm within neck. There is mild plaque within the proximal right internal carotid artery without stenosis. There is extensive plaque within the left carotid bifurcation. This results in severe stenosis of the distal left common carotid artery and the proximal left internal and external carotid arteries. There is approximate 80% stenosis of the proximal left internal carotid artery. IMPRESSION: 1. Extensive atherosclerotic plaque within the left carotid bifurcation which results in severe stenosis of the distal left common carotid artery and the proximal left internal and external carotid arteries with approximate 80% stenosis of the proximal left internal carotid artery. 2. Severe stenosis at the origin of the right vertebral artery. ACT 112: Negative or not required by law. Electronically signed by: Issa Graf M.D. 05/08/2024 12:20 PM Medications Administered Discontinued Medications Tenecteplase 20 mg/ Syringe 4 mls @ 52.8 mls/min IV NOW ONE; Protocol Stop: 05/08/24 12:31 Last Admin: 05/08/24 12:38 Dose: Not Given Documented By: ETIENNE Ioversol (Optiray 320 125ml) 119 ml IV ONCE ONE Stop: 05/08/24 12:07 Last Admin: 05/08/24 12:06 Dose: 119 ml Documented By: ANGELITA Miscellaneous (Stat Iv/Im) 1 each N/A NOW STA Stop: 05/08/24 12:23 Last Admin: 05/08/24 12:37 Dose: Not Given Documented By: ETIENNE Sodium Chloride (Sodium Chloride 0.9% 10ml Flush) 20 ml IV NOW STA Stop: 05/08/24 12:23 Last Admin: 05/08/24 12:37 Dose: 20 ml Documented By: ETIENNE Code Status & VTE Plan Code Status FULL CODE Supervising Physician Co-Signing Physician Notes Patient is an 84-year-old male with history of CKD stage III, alcohol use disorder, diabetes mellitus type 2, diverticulosis, GERD, esophagitis, hypertension, vitamin B12 deficiency and other medical problems presents with history of right upper and lower extremity weakness which started this morning while having his breakfast. Patient is currently having expressive aphasia and most of the history is obtained from ER staff and medical records. Patient was not able to ambulate this morning and also had difficulty writing and so called ambulance for evaluation. Patient received TNK as recommended by telestroke. His weakness improved dramatically. After TNK administration, patient developed some expressive aphasia which was new per ER staff. Patient denies any chest pain, dyspnea, nausea, vomiting, dizziness, headache, change in vision. No family at bedside. I personally reviewed blood work and imaging studies. CT head showed no acute intracranial findings, findings suggestive of few suspected old small left frontal lobe infarcts. Head CTA showed attenuated M3 branch of the left middle cerebral artery suggestive of possible acute vessel occlusion versus severe stenosis. Also noted moderate stenosis of the left P1 segment. Neck CTA showed extensive atherosclerosis within the left carotid bifurcation- suggestive of stenosis of the distal left common carotid artery and proximal left internal and external carotid arteries with approximately 80% stenosis of the proximal left internal carotid artery. Severe stenosis also noted in the origin of the right vertebral artery. Blood work is fairly within normal limits. Glucose elevated at 194.. Creatinine 1.5 at his baseline. Troponin negative. EKG showed normal sinus rhythm with nonspecific T wave changes. Physical Exam: Vitals signs as noted above General Appearance:Moderately built and nourished, no apparent distress Head: normocephalic, Atraumatic Eyes: normal inspection, EOMI Neck: supple, Trachea midline Respiratory/Chest: Normal breath sounds, CTA, No accessory muscle use Cardiovascular: S1, S2, No murmur Abdomen/GI:Soft, Non tender, Bowel sounds present Extremities/Musculoskeletal:normal inspection, no edema Neurologic/Psych:AAOX2, expressive aphasia, otherwise grossly no focal neurological deficits Skin: normal color, warm Acute CVA: S/P TNK Presented with right-sided weakness, ambulatory dysfunction, difficulty writing and developed expressive aphasia post TNK Imaging studies as above Post TNK CT head did not show any acute intracranial hemorrhage. Patient will be admitted in ICU for monitoring Neurology, manager solar will be consulted Stroke work up including lipid panel, A1C, MRI Brain, ECHO Speech and swallow eval Hold aspirin secondary to TNK administration Start on Lipitor Neuro checks PT/OT Allow permissive HTN in setting of acute CVA Will need repeat CT head 24 hours from TNK administration CKD stage III Monitor renal function closely given administration of contrast use Avoid nephrotoxic agents as able ? Alcohol use disorder Patient unclear currently if he has been drinking alcohol on daily basis Thiamine, folic acid Monitor for withdrawal I personally interviewed and examined at bedside. Patient's care is coordinated with Marisol Iyer PA-C. I have reviewed the advanced practitioner's documentation, and I agree with plan of care. Please refer to the documentation above for details of patient's presentation and for discussion of other issues. I spent a total [id number] coordinating, documenting, and providing care for this patient excluding time spent in the performance of separately billed services.
[2024-05-08 13:16] LABS: INR 1.1 (0.9-1.1); Partial Thromboplastin Time 27 Seconds (21-31); Prothrombin Time 11.9 Seconds (9.0-12.0)
--- NOTE | 2024-05-08 13:22 | CT Scan Report ---
CT OF THE HEAD WITHOUT CONTRAST CLINICAL HISTORY: Trouble talking post tnk COMPARISON STUDY: Head CT and CTA of the head performed earlier today. CT DOSE: 688.24 mGy.cm TECHNIQUE: Helical axial images of the head were obtained without IV contrast. Automated exposure con trol was utilized for the study. A dose lowering technique was utilized adhering to the principles o f ALARA. FINDINGS: Incidental note is made of intravascular contrast from recent contrast-enhanced CT. Ventric ular system is normal. Basal cisterns are patent. There are no extra axial collections. No acute intr acranial hemorrhage, midline shift or mass effect is present. Hypodense foci within the left frontal lobe are again noted. These are similar appearance to prior CT. IMPRESSION: 1. No acute intracranial hemorrhage although sensitivity diminished given intravascular contrast from recent CT. 2. Several hypodense foci within the left frontal lobe consistent with infarcts. Although age indeter minate, these are probably chronic. ACT 112: Negative or not required by law. Electronically signed by: Issa Graf M.D. 05/08/2024 1:20 PM
[2024-05-08] MEDS: LABETALOL HCL IV 5 MG/ML 20ML IV STA ×2 (13:48→18:46)
--- NOTE | 2024-05-08 13:52 | Critical Care Consultation ---
Date of Consultation May 08, 2024 Assessment & Plan (1) Acute CVA (cerebrovascular accident): Reason Critically Ill: Status post TNKase for acute CVA PLAN: Neuro: Acute CVA -Status post TNK will follow stroke protocol -Worsening aphasia per discussion with ED tertiary stroke center aware not candidate for clot retrieval CV: History of hypertension -Labetalol as needed for BP greater than 180 requiring 1 dose while in ED -Asymptomatic bradycardia, will proceed with labetalol for BP control despite heart rate in the 60s Fluids/Renal: Chronic kidney disease -Creatinine elevated however has remained elevated since April 16, 2018 GI/Nutrition: N.p.o. at this time Heme: Less than 24 hours status post thrombolytic administered DVT prophylaxis: SCDs Endocrine: ICU hyperglycemia protocol Diabetes mellitus type 2 -Check A1c Vascular access: Peripheral IVs Code Status: Full code Disposition: ICU (2) Alcohol use: (3) HTN (hypertension): (4) CKD (chronic kidney disease), stage III: (5) Diabetes mellitus, type II: Supervising Physician Co-Signing Physician Notes Patient critically ill due to CVA and needing vasoactive medication administration for blood pressure control in the setting of recent thrombolytic administration. I have personally spent 40 minutes of critical care time in the direct management of this patient. This is a life/limb threatening event. This includes time spent evaluating patient, direct bedside care, chart review, placing orders, interpretation of diagnostic studies, discussion with consultants, patient, and/or family members regarding treatment decisions, as well as other required patient management activities. This time is exclusive of all separately billable procedures, and teaching time and separate from and in addition to any other critical care service time. History of Present Illness Reason for Consultation: Status post TNK for acute CVA History of Present Illness History is obtained from prior records as the patient is experiencing expressive aphasia and difficulty in providing history: Patient is an 84-year-old male with a past medical history of a GI bleed, alcohol use, hypertension and CKD and diabetes who presents to the ER for sudden onset of right-sided weakness just prior to arrival. He was sitting eating and noticed that his right leg was weak and he could not walk. He also noticed that he had weakness in his right arm. He is having trouble writing as well with his arm. He denies any headache or change or loss of vision. No chest pain or shortness of breath. No dysuria urgency or frequency. No other exacerbating or remitting factors. During my evaluation the patient was able to follow two-step commands. Allergies Allergy/AdvReac Type Severity Reaction Status Date / Time amoxicillin Allergy Mild FEVER, RASH Verified 07/18/22 20:15 Home Medications Medication Instructions Recorded Confirmed Type aspirin 81 mg tablet,delayed 81 mg PO DAILY 07/18/22 05/08/24 History release cholecalciferol (vitamin D3) 10 20 mcg PO DAILY 07/18/22 05/08/24 History mcg (400 unit) tablet (Vitamin D3) cyanocobalamin (vitamin B-12) 1,000 mcg PO QPM 07/18/22 05/08/24 History 1,000 mcg tablet (Vitamin B-12) empagliflozin 25 mg tablet 25 mg PO QAM 07/18/22 05/08/24 History (Jardiance) ferrous sulfate 325 mg (65 mg 325 mg PO QPM 07/18/22 05/08/24 History iron) tablet zvofjwgaeph-[id number]-wpy C-Mn 500 1 cap PO AMHS 07/18/22 05/08/24 History mg-400 mg capsule omeprazole 40 mg capsule,delayed 40 mg PO QAM 07/18/22 05/08/24 History release sildenafil (pulm.hypertension) 20 20 mg PO DIRECTED 1-4 hr before 07/18/22 05/08/24 History mg tablet sex allopurinol 100 mg tablet 100 mg PO DAILY 05/08/24 05/08/24 History hydralazine 10 mg tablet 10 mg PO DAILY 05/08/24 05/08/24 History latanoprost 0.005 % eye drops 1 drp OPB QPM 05/08/24 05/08/24 History Patient History Medical History GERD (gastroesophageal reflux disease) Surgical History History of colonoscopy Family History Other Alzheimer disease Social History Smoking Status: Never smoker Tobacco Type: Pipe Second Hand Exposure: No; Do You Dip or Chew Tobacco: No; Hx Alcohol Use: Yes Alcohol type: beer, wine and hard liquor Alcohol Intake Frequency Comment: average 3 drinks per day Hx Substance Use: No Preferred Language: Occitan Communication Ability: Effective Programmer Analyst Required: No Beliefs That Will Affect Care: None Current Living Situation: Alone Feels Safe at Home: Yes Assistive Devices: None Physical Exam Physical Exam: General: Alert. nontoxic. Skin: Warm, dry, Head: Atraumatic Ears, nose, mouth and throat: airway patent Cardiovascular: Normal peripheral perfusion Respiratory: no respiratory distress Gastrointestinal: Non distended Musculoskeletal: No deformity Neuro: Cranial nerves II through XII grossly intact Patient's art historian strength equal bilaterally able to raise his right foot off the ground hold up for 5 seconds appears to be equal bilaterally -Patient experiencing what I would describe is mild expressive aphasia with difficulty in word finding Results & Data Results & Data Vital Signs (Past 12 Hours) Vital Signs Temp Pulse Pulse Resp BP BP Pulse Ox 05/08/24 13:27 36.9 C 57 L 12 180/103 H 94 05/08/24 13:16 180/101 H 94 05/08/24 13:01 174/104 H 05/08/24 12:57 36.8 C 53 L 18 164/96 H 94 05/08/24 12:42 61 18 157/98 H 93 05/08/24 12:30 63 16 176/93 H 97 05/08/24 12:23 161/94 H 05/08/24 12:21 66 19 161/94 H 05/08/24 12:15 163/96 H 05/08/24 12:12 65 05/08/24 11:47 36.8 C 62 18 158/86 H 94 O2 Del Method 05/08/24 13:27 Room Air 05/08/24 13:16 Room Air 05/08/24 13:01 05/08/24 12:57 Room Air 05/08/24 12:42 Room Air 05/08/24 12:30 05/08/24 12:23 05/08/24 12:21 05/08/24 12:15 05/08/24 12:12 05/08/24 11:47 Room Air Critical Care Results & Data Vital Signs (Past 12 Hours) Vital Signs Temp Pulse Pulse Resp BP BP Pulse Ox 05/08/24 13:27 36.9 C 57 L 12 180/103 H 94 05/08/24 13:16 180/101 H 94 05/08/24 13:01 174/104 H 05/08/24 12:57 36.8 C 53 L 18 164/96 H 94 05/08/24 12:42 61 18 157/98 H 93 05/08/24 12:30 63 16 176/93 H 97 05/08/24 12:23 161/94 H 05/08/24 12:21 66 19 161/94 H 05/08/24 12:15 163/96 H 05/08/24 12:12 65 05/08/24 11:47 36.8 C 62 18 158/86 H 94 O2 Del Method 05/08/24 13:27 Room Air 05/08/24 13:16 Room Air 05/08/24 13:01 05/08/24 12:57 Room Air 05/08/24 12:42 Room Air 05/08/24 12:30 05/08/24 12:23 05/08/24 12:21 05/08/24 12:15 05/08/24 12:12 05/08/24 11:47 Room Air Lab & Micro Results (Past 24 Hours) RBC 5.05 M/uL (4.70-6.10) 05/08/24 WBC 6.33 K/ul (4.8-10.8) 05/08/24 Hgb 14.9 g/dl (14.0-18.0) 05/08/24 Hct 44.1 % (42.0-52.0) 05/08/24 MCV 87.3 fL (80.0-100.0) 05/08/24 MCH 29.5 pg (25.0-34.0) 05/08/24 MCHC 33.8 g/dL (32.0-36.0) 05/08/24 RDW Standard Deviation 46.4 fL (36.4-46.3) H 05/08/24 RDW Coefficient of Variation 14.5 % (11.5-14.5) 05/08/24 Plt Count 192 K/uL (130-400) 05/08/24 MPV 9.8 fL (9.4-12.4) 05/08/24 Neutrophils (%) (Auto) 78.8 % 05/08/24 Lymphocytes (%) (Auto) 13.0 % 05/08/24 Monocytes # (Auto) 0.42 K/uL (0.11-0.59) 05/08/24 Eosinophils # (Auto) 0.03 K/uL (0.00-0.50) 05/08/24 Immature Granulocyte % (Auto) 0.3 % 05/08/24 Neutrophils # (Auto) 4.99 K/uL (1.40-6.50) 05/08/24 Lymphocytes # (Auto) 0.82 K/uL (1.20-3.40) L 05/08/24 Monocytes # (Auto) 0.42 K/uL (0.11-0.59) 05/08/24 Eosinophils # (Auto) 0.03 K/uL (0.00-0.50) 05/08/24 Basophils # (Auto) 0.05 K/uL (0.00-0.20) 05/08/24 Immature Granulocyte # (Auto) 0.02 K/uL (0.01-0.20) 4 Na 134 mmol/L (136-145) L 05/08/24 K 4.1 mmol/L (3.5-5.1) 05/08/24 Cl 103 mmol/L (98-107) 05/08/24 CO2 25 mmol/L (21-32) 05/08/24 Anion Gap 6 (3-11) 05/08/24 BUN 30 mg/dl (6-23) H 05/08/24 Creatinine 1.50 mg/dl (0.6-1.4) H 05/08/24 BUN/Creatinine Ratio 20.0 (10-20) 05/08/24 Glu 194 mg/dl (70-99(Fasting)) H 05/08/24 Ca 8.8 mg/dl (8.6-10.3) 05/08/24 Total Bilirubin 0.7 mg/dl (0.2-1.0) 05/08/24 AST 11 U/L (13-39) L 05/08/24 ALT 9 U/L (7-52) 05/08/24 Alkaline Phosphatase 71 U/L (34-104) 05/08/24 TP 6.6 gm/dl (6.0-8.3) 05/08/24 Albumin 3.8 gm/dl (3.4-5.0) 05/08/24 Globulin 2.8 gm/dl (2.5-4.0) 05/08/24 Albumin/Globulin Ratio 1.4 (0.9-2) 05/08/24 Mg 1.9 mg/dl (1.7-2.4) 05/08/24 12:08 Calcium Level 8.8 mg/dl (8.6-10.3) 05/08/24 12:08 Prothromb Time International Ratio 1.1 (0.9-1.1) 05/08/24 12:0 8 Diagnostic Findings (Past 24 Hours) Head CT 05/08/24 11:49 CT OF THE HEAD WITHOUT CONTRAST CLINICAL HISTORY: neuro deficit, acute stroke suspected COMPARISON STUDY: Head CT July 18, 2022. TECHNIQUE: Helical axial images of the head were obtained without IV contrast. Automated exposure control was utilized for the study. A dose lowering technique was utilized adhering to the principles of ALARA. FINDINGS: No acute intracranial hemorrhage, midline shift or mass effect is present. White matter hypodensity suggests small vessel disease. A few small hypodensities within the left frontal lobe favor old infarcts. The ventricular system is unremarkable. The basal cisterns are patent. No extra-axial collections are present. There are no findings to suggest acute dural sinus thrombosis or acute territorial infarct. No significant calvarial abnormalities are present. Visualized portions of the sinuses and mastoid air cells are clear. IMPRESSION: 1. No acute intracranial findings. 2. A few suspected old small left frontal lobe infarcts. ACT 112: Negative or not required by law. Electronically signed by: Issa Graf M.D. 05/08/2024 12:11 PM Head CTA 05/08/24 11:49 CTA ANGIOGRAPHY OF THE HEAD CLINICAL HISTORY: neuro deficit, acute stroke suspected COMPARISON STUDY: Head CT July 18, 2022. TECHNIQUE: Helical axial images of the head were obtained following uneventful intravenous administration of 119 cc of Optiray. Sagittal and coronal reconstructions were viewed as well as maximal intensity projections on an independent 3-D workstation. Automated exposure control was utilized for the study. A dose lowering technique was utilized adhering to the principles of ALARA. CT DOSE: 1225.61 mGy.cm FINDINGS: The bilateral M1, M2, A1 and A2 segments are patent. No intracranial aneurysm. There is an attenuated M3 branch of the left middle cerebral artery shown on image 147 of 265. Posterior circulation is intact. There is no dissection within the intracranial vessels. There is moderate stenosis within the left P1 segment. IMPRESSION: 1. Attenuated M3 branch of the left middle cerebral artery. This may reflect acute vessel occlusion versus severe stenosis. 2. Moderate stenosis within the left P1 segment. 3. No intracranial aneurysm. ACT 112: Negative or not required by law. Electronically signed by: Issa Graf M.D. 05/08/2024 12:23 PM Neck CTA 05/08/24 11:49 CT ANGIOGRAPHY OF THE NECK WITH CONTRAST CLINICAL HISTORY: neuro deficit, acute stroke suspected COMPARISON STUDY: No previous studies for comparison. Technique: CT angiography of the carotid and vertebral arteries was obtained using Optiray and 3D reconstruction on an independent workstation. NASCET criteria was utilized. Automated exposure control was utilized for the study. A dose lowering technique was utilized adhering to the principles of ALARA. Findings: Visualized portions of the lung apices are unremarkable. There is no cervical lymphadenopathy. No cervical spine fractures are present. There is severe stenosis at the origin of the right vertebral artery. Left vertebral artery is unremarkable. There is no aneurysm within neck. There is mild plaque within the proximal right internal carotid artery without stenosis. There is extensive plaque within the left carotid bifurcation. This results in severe stenosis of the distal left common carotid artery and the proximal left internal and external carotid arteries. There is approximate 80% stenosis of the proximal left internal carotid artery. IMPRESSION: 1. Extensive atherosclerotic plaque within the left carotid bifurcation which results in severe stenosis of the distal left common carotid artery and the proximal left internal and external carotid arteries with approximate 80% stenosis of the proximal left internal carotid artery. 2. Severe stenosis at the origin of the right vertebral artery. ACT 112: Negative or not required by law. Electronically signed by: Issa Graf M.D. 05/08/2024 12:[address] 05/08/24 13:05 CT OF THE HEAD WITHOUT CONTRAST CLINICAL HISTORY: Trouble talking post tnk COMPARISON STUDY: Head CT and CTA of the head performed earlier today. CT DOSE: 688.24 mGy.cm TECHNIQUE: Helical axial images of the head were obtained without IV contrast. Automated exposure control was utilized for the study. A dose lowering technique was utilized adhering to the principles of ALARA. FINDINGS: Incidental note is made of intravascular contrast from recent contrast-enhanced CT. Ventricular system is normal. Basal cisterns are patent. There are no extra axial collections. No acute intracranial hemorrhage, midline shift or mass effect is present. Hypodense foci within the left frontal lobe are again noted. These are similar appearance to prior CT. IMPRESSION: 1. No acute intracranial hemorrhage although sensitivity diminished given intravascular contrast from recent CT. 2. Several hypodense foci within the left frontal lobe consistent with infarcts. Although age indeterminate, these are probably chronic. ACT 112: Negative or not required by law. Electronically signed by: Issa Graf M.D. 05/08/2024 1:20 PM RT Ventilator Mngmt (Last Documented) Ventilator Ordered Settings Respiratory Rate 12 05/08/24 13:27 Ventilator - PT Measurements Respiratory Rate 12 Coding Level of Care Code 69221 CRITICAL CARE 1ST 30-74M Diagnoses Acute CVA (cerebrovascular accident) I63.9 Alcohol use Z78.9 Hypertension, unspecified type I10 Hypertension type: unspecified CKD (chronic kidney disease), stage III N18.3 Diabetes mellitus, type II E11.9 (3) HTN (hypertension) Hypertension type: unspecified Qualified Code(s): I10 - Essential (primary) hypertension
[2024-05-08] MEDS ORDERED: GLUCOSE 40% GEL 15 GM TUBE PO PRN (14:24)
[2024-05-08] MEDS ORDERED: DEXTROSE 50% 50 ML SYRINGE IV PRN (14:24)
[2024-05-08] MEDS ORDERED: GLUCAGON FOR INJ 1 MG VIAL SQ PRN (14:24)
[2024-05-08] MEDS ORDERED: CARBOHYDRATES FOR HYPOGLYCEMIA PO PRN (14:24)
[2024-05-08] MEDS ORDERED: PHARMACIST DISCHARGE MED REC CONSULT PRN (14:24)
[2024-05-08] MEDS ORDERED: GLUCOSE 10 TAB/TUBE PO PRN (14:24)
[2024-05-08] MEDS ORDERED: No Aspirin within 24hrs of THROMBOLYTIC-Stroke SCH (14:30)
[2024-05-08] MEDS: INSULIN ASPART PER UNIT CHARGE SC SCH (16:13)
[2024-05-08] MEDS ORDERED: Nursing to Pharmacy Communication SCH (16:15)
[2024-05-08] MEDS ORDERED: ICU Protocol for HYPERglycemia SCH (16:30)
--- NOTE | 2024-05-08 19:11 | Magnetic Resonance Report ---
EXAM: MR brain wo con CLINICAL HISTORY: PT STATES RIGHT-SIDED WEAKNESS TODAY. EXPRESSIVE APHASIA. STROKE ALERT. GIVEN TNK. ?STROKE. NO PRIOR SURGERY. NO HX OF CANCER. TECHNIQUE: MRI of the brain was performed without contrast with multiplanar sequences obtained. Images were sent through PACS for diagnostic interpretation. COMPARISON: No previous studies are available for comparison. FINDINGS: Brain Parenchyma: Left posterior temporoparietal areas of altered signal intensity and restricted diffusion being of high signal intensity in diffusion-weighted images and low ADC value. Another two tiny ovoid-shaped foci are seen within the left deep parietal region periventricular and left centrum semiovale showing restricted diffusion. No evidence of acute hemorrhage. Bilateral deep periventricular streaks of bright signal intensity in T2/ FLAIR weighted images are noted. Bilateral frontal and parietal deep white matter tiny foci of bright signal intensity in T2 on the FLAIR weighted images few examined of CSF like signal intensity no evidence of restricted diffusion or mass effect signifying microvascular angiopathic changes. Ventricles and Sulci: Mild to moderate symmetrical dilatation of the ventricular system. widened both sylvian fissures, prominent cortical sulci basal cisterns, and extra-axial CSF spaces signifying senile involutionary changes. Posterior Fossa: The cerebellum and brainstem appear normal without evidence of mass lesions or signal abnormalities. Cranial Nerves: Normal course and appearance of cranial nerves identified. Vessels: No evidence of vascular malformations or aneurysms. Intracranial arteries and veins appear normal without evidence of stenosis or occlusion. Orbits and Skull Base: Orbits and skull base structures are normal without evidence of abnormalities. IMPRESSION: 1. left posterior temporoparietal cortical left deep parietal periventricular and left centrum semiovale acute non-hemorrhagic infarcts likely signifying water-shed infarcts. 2. Brain involutional changes with deep white matter small artery disease and bilateral cerebral ischaemic foci / old lacunar infarcts. 3. Follow-up with bilateral carotid doppler/angiography is advised. [facility] ER was called at [phone] at 06:06 PM MULTI SITE LEASING CONSULTANT, 05/08/2024, and Nurse Marian was informed regarding the presence of critical medical findings in the reports. Electronically signed by Lexi James 05-08-2024 7:10 PM
[2024-05-08] MEDS: hydrALAZINE HCL 20 MG/ML VIAL IV STA (19:58)
[2024-05-08] MEDS: FERROUS SULFATE 325 MG TAB PO SCH (21:47)
[2024-05-08] MEDS: CYANOCOBALAMIN (B-12) 500 MCG TABLET PO SCH (21:48)
[2024-05-08] MEDS: LATANOPROST 0.005% OP SOLN 2.5 ML BTL OPB SCH (21:49)
[2024-05-09 00:26] VITALS: O2SAT 94
[2024-05-09] MEDS ORDERED: hydrALAZINE HCL 20 MG/ML VIAL IV STA (02:17)
--- NOTE | 2024-05-09 03:18 | CT Scan Report ---
EXAM: CT head/brain wo con CLINICAL HISTORY: deteriorating neurological status TECHNIQUE: Multiple axial images are obtained from the skull base to the vertex without contrast. CT scan was performed according to ALARA (as low as reasonable achievable). COMPARISON: None. FINDINGS: There is cerebral atrophy. No evidence of space occupying lesion, hemorrhage, edema, mass effect, midline shift, extra axial collection, or hydrocephalus is noted. Basal cisterns are symmetric and normal in size and configuration. There are scattered periventricular hypodensities as can be seen with chronic microvascular ischemic changes. The crump-white matter differentiation is preserved. Visualized paranasal sinuses and mastoid air cells are well aerated. Orbital contents are within normal limits. Bony structures are intact. IMPRESSION: 1. No evidence of acute intracranial abnormality is demonstrated. 2. Chronic microvascular ischemic changes. 3. Cerebral atrophy. Electronically signed by Jayme Humphrey 05-09-2024 03:18 AM
[2024-05-09] MEDS: OPTIRAY 320 125ml IV ONE (03:19)
[2024-05-09] MEDS: PLASMA-LYTE A 500 ML IV ONE (03:22)
[2024-05-09] MEDS: MAGNESIUM SULFATE / D5W 1 GM/100 ML BAG IV SCH ×2 (03:24→03:43)
[2024-05-09 03:37] VITALS: TEMP 98.1
--- NOTE | 2024-05-09 04:00 | CT Scan Report ---
EXAM: CT angio head w con CLINICAL HISTORY: acute change in neuro exam. TECHNIQUE: CT angiography of the head was performed following the intravenous administration of 118 cc optiray 320 of iodinated contrast material. Contiguous axial images were obtained from the base of the skull to the vertex. Coronal and sagittal reformatted images were also reviewed. One of these 3D techniques was utilized: Maximum Intensity Pixel (MIP), 3D Reconstructed Images, Volume Rendered Images, Surface Shaded Rendering. One of the following dose reduction techniques was utilized for this exam. Automated exposure control, adjustment of the mA and/or kV according to patient size, and use of iterative reconstruction. COMPARISON: Prior study dated 05/09/2024. FINDINGS: Intracranial Arteries: The intracranial arteries, including the anterior cerebral arteries, middle cerebral arteries, posterior cerebral arteries, basilar artery, and vertebral arteries, are all patent without evidence of significant stenosis, aneurysm, or dissection. There is no evidence of vascular malformations. Parchman of Chávez: The [place] of [place] is intact with no anatomical variations or abnormalities noted. All segments are well-visualized and normal in appearance. Venous System: The visualized portions of the venous system, including the dural venous sinuses, are patent with no evidence of thrombosis. Brain Parenchyma: Still noted mild age-related cerebral involutional changes with white matte changes related to microvascular angiopathy. The brain parenchyma shows no evidence of acute infarct, hemorrhage, or mass effect. The ventricles and sulci are normal in size and configuration. Bones: The bony structures of the skull are intact without evidence of fracture or destructive lesions. Soft Tissues: The visualized soft tissues of the head are unremarkable. Additional Findings: No other significant findings are noted. IMPRESSION: 1. Unremarkable CT angiography of the head. 2. No evidence of significant vascular abnormalities, acute infarction, or hemorrhage. Electronically signed by Lexi James 05-09-2024 03:59 AM
[2024-05-09] MEDS: PLASMA-LYTE A 1,000 ML IV SCH (04:02)
--- NOTE | 2024-05-09 04:29 | CT Scan Report ---
EXAM: CT angio neck with con CLINICAL HISTORY: Acute change in neuro exam. TECHNIQUE: CT angiography of the neck was performed following the intravenous administration of [118 cc's optiray 320] of iodinated contrast material. Axial images were obtained from the aortic arch to the vertex. Coronal and sagittal reformatted images were also reviewed. One of the following dose reduction techniques was utilized for this exam. Automated exposure control, adjustment of the mA and/or kV according to patient size, and use of iterative reconstruction. One of these 3D techniques was utilized: Maximum Intensity Pixel (MIP), 3D Reconstructed Images, Volume Rendered Images, Surface Shaded Rendering. COMPARISON: No previous studies are available for comparison. FINDINGS: The left carotid bulb displays concentric soft atheromatous plaque causing 60 % stenosis of its lumen with extension to the proximal segment of the left ICA causing 80% stenosis. The right internal carotid artery shows a proximal segment small eccentric calcified atheromatous plaque noted. Carotid Arteries: The common, internal, and external carotid arteries are patent bilaterally with no evidence of aneurysm, or dissection. Vertebral Arteries: The vertebral arteries are patent bilaterally with no evidence of significant stenosis, aneurysm, or dissection. Thyroid Gland: The thyroid gland is normal in size with a small right lobe small 5 x 6 mm hypodense nodule is seen. Lymph Nodes: There is no evidence of significant lymphadenopathy in the neck. Soft Tissues: The soft tissues of the neck are unremarkable with no evidence of masses or abnormal collections. Additional Findings: No other significant findings are noted. An aortic atherosclerotic lesion is seen. Moderate spondylosis of the cervical spine is seen. IMPRESSION: 1. Evidence of left carotid bulb soft atheromatous plaque with significant 60% stenosis extension to the proximal segment of the left ICA causing 80 % stenosis of its lumen. 2. Another small calcified right ICA plaque is seen without causing significant stenosis. 3. Right thyroid nodule noted. [facility] was called at [phone] at 03:25 AM REMELT PAN TANK OPERATOR, 05/09/2024, and RITCHIE Nichole was informed regarding the presence of important medical findings in the report. Electronically signed by Lexi James 05-09-2024 04:28 AM
[2024-05-09] MEDS ORDERED: ONDANSETRON INJ 2 MG/ML 2 ML VIAL IV PRN (04:34)
[2024-05-09] MEDS: ONDANSETRON INJ 2 MG/ML 2 ML VIAL IV ONE (04:41)
[2024-05-09 05:01] VITALS: BP 162/99; PULSE 63; RESP 18
[2024-05-09 05:53] LABS: Basophils # (auto) 0.06 K/uL (0.00-0.20); Basophils % (auto) 0.7 %; Eosinophils # (auto) 0.02 K/uL (0.00-0.50); Eosinophils % (auto) 0.2 %; Hematocrit (blood only) 46.4 % (42.0-52.0); Hemoglobin 15.7 g/dl (14.0-18.0); Immature Granulocytes # (auto) 0.15 K/uL (0.01-0.20); Immature Granulocytes % (auto) 1.7 %; Lymphocytes # (auto) 0.87 K/uL (1.20-3.40); Lymphocytes % (auto) 9.8 %; Mean Corpuscular Hemoglobin 29.4 pg (25.0-34.0); Mean Corpuscular Hgb Conc 33.8 g/dL (32.0-36.0); Mean Corpuscular Volume 86.9 fL (80.0-100.0); Mean Platelet Volume 9.5 fL (9.4-12.4); Monocytes # (auto) 0.49 K/uL (0.11-0.59); Monocytes % (auto) 5.5 %; Neutrophils # (auto) 7.31 K/uL (1.40-6.50); Neutrophils % (auto) 82.1 %; Platelet Count 194 K/uL (130-400); RDW Coefficient of Variation 14.5 % (11.5-14.5); RDW Standard Deviation 45.9 fL (36.4-46.3); Red Blood Count 5.34 M/uL (4.70-6.10)
--- NOTE | 2024-05-09 06:02 | Communication Note ---
Date of Service: May 09, 2024 I was informed by the patient's primary nurse that he had a neurological decline earlier this evening, and was no longer moving his right arm, lower extremity, and had worsening expressive aphasia with new onset of right facial droop. Patient was taken for stat CT head Noncon, which did not show any new acute intracranial findings. Simultaneously, [facility] teleneurology was again consulted and evaluated the patient via monitor. Repeat CTA head and neck was recommended and were evaluated by the neurologist, who thought there might be residual thrombus in the left M2 segment. Recommended transfer to [facility] for arteriogram and possible thrombectomy. Unfortunately due to weather were unable to find transfer. I did call [facility] who accepted the patient with plan to undergo perfusion study and possible thrombectomy depending on findings. [facility] is currently en route and plan to transfer to [facility] at this time. CRITICAL CARE TIME I have personally spent 70 minutes of critical care time in the direct management of this patient. This is a life/limb threatening event. This includes time spent evaluating patient, direct bedside care, chart review, placing orders, interpretation of diagnostic studies, discussion with consultants, patient, and family members, as well as other required patient management activities. This time is exclusive of all separately billable procedures, and teaching time and separate from and in addition to any other critical care service time. Coding Level of Care Code 79026 CRITICAL CARE 1ST 30-74M
--- NOTE | 2024-05-09 06:06 | Electrocardiogram Report ---
Test Reason : Blood Pressure : */* mmHG Vent. Rate : 63 BPM Atrial Rate : 63 BPM P-R Int : 164 ms QRS Dur : 102 ms QT Int : 436 ms P-R-T Axes : 12 3 61 degrees QTcB Int : 446 ms Normal sinus rhythm Normal ECG When compared with ECG of 15-Apr-2018 10:05, No significant change Confirmed by Homar Bledsoe ([id number]) on 05/09/2024 6:06:22 AM Referred By: REFERRED SELF Confirmed By: Homar Bledsoe
[2024-05-09 06:22] LABS: Albumin Globulin Ratio 1.3 (0.9-2); Albumin Level 3.9 gm/dl (3.4-5.0); BUN Creatinine Ratio 18.5 (10-20); Bilirubin,Total 0.9 mg/dl (0.2-1.0); Calcium 8.9 mg/dl (8.6-10.3); Chol HDL Ratio 3.8 (0-5); Magnesium 2.6 mg/dl (1.7-2.4); Phosphorus 3.1 mg/dl (2.5-4.9); Potassium 4.3 mmol/L (3.5-5.1); Total Protein 6.9 gm/dl (6.0-8.3)
[2024-05-09 06:46] LABS: Folate (Folic Acid),Ser orPlas 15.61 ng/ml (>5.38)
[2024-05-09] MEDS ORDERED: STROKE PATIENT DISCHARGE STA (06:55)
--- NOTE | 2024-05-09 06:55 | Discharge Summary ---
Date of Service May 09, 2024 Admission HPI Per Admitting Provider Mg Little is an 84-year-old male with past medical history significant for DM type II, diabetic polyneuropathy, alcohol use, arthritis, gout, HTN, GERD, Anderson's esophagus, history of diverticulitis and CKD stage III who presented to the ED on 05/08/2024 via EMS secondary to strokelike symptoms. Patient seen at bedside in the ED with Dr. Dahl. Patient reportedly with sudden onset of right-sided weakness prior to arrival; he was sitting down to eat when he noticed that the entire right side of his body became suddenly weak to the point where he could no longer walk per EMS report - patient had personally called EMS. He was also having trouble writing with his right arm. All of these symptoms reportedly started to occur around 11:20AM. Initial head CT without contrast in the ED did not reveal any acute intracranial findings however it did note a few suspected old small left frontal lobe infarcts. Head CTA revealed an attenuated M3 branch of the left middle cerebral artery (may reflect acute vessel occlusion versus severe stenosis) and moderate stenosis within the left P1 segment. Neck CTA showed extensive atherosclerotic plaque within the left carotid bifurcation resulting in severe stenosis of the distal left common carotid artery and the proximal left internal and external carotid arteries with approximate 80% stenosis of the proximal left internal carotid artery. Neck CTA also revealed severe stenosis at the origin of the right vertebral artery. Given his presenting symptoms and radiographic findings, patient was administered TNK as advised by the TeleStroke neurologist. Patient developed expressive aphasia and word finding difficulty following administration of the TNK per staff in the ED - therefore most history was obtained from nursing staff in the ED and associated chart review. Repeat stat head CT was obtained in the ED following his change in mental status which did not show any evidence of acute intracranial hemorrhage however it did once again note several hypodense foci within the left frontal lobe consistent with infarct as previously seen on his prior head CT - although age indeterminate, it is assumed that these are old areas of infarct. Patient's right-sided weakness has significantly improved following administration of the TNK. Principal Diagnosis acute ischemic CVA sp TNK Discharge Data Allergies Allergy/AdvReac Type Severity Reaction Status Date / Time amoxicillin Allergy Mild FEVER, RASH Verified 07/18/22 20:15 Consultations 05/08/24 12:59 ED Decision to Admit Stat 05/08/24 13:06 Consult Report Writer Routine Consult Neurology Routine 05/09/24 03:13 Burn CD for patient Stat Ordered Studies 05/08/24 11:49 CT angio head w con Stat CT angio neck with con Stat CT head/brain wo con Stat 05/08/24 13:05 CT head/brain wo con Stat 05/08/24 13:06 MR brain wo con Routine 05/09/24 01:36 CT head/brain wo con Stat 05/09/24 02:56 CTA head w con [CT angio head w con] Stat CTA neck with con [CT angio neck with con] Stat 05/09/24 13:03 CT head/brain wo con Routine Hospital Course (1) Acute CVA (cerebrovascular accident): Abigail Little is an 84-year-old male with past medical history significant for DM type II, diabetic polyneuropathy, alcohol use, arthritis, gout, HTN, GERD, Anderson's esophagus, history of diverticulitis and CKD stage III who presented to the ED on 05/08/2024 via EMS secondary to strokelike symptoms. Patient reportedly with sudden onset of right-sided weakness prior to arrival. He was also having trouble writing with his right arm. All of these symptoms reportedly started to occur around 11:20AM. Patient was made a stroke alert prior to arrival. Initial head CT without contrast did not reveal any acute intracranial findings however it did note a few suspected old small left frontal lobe infarcts. Head CTA revealed an attenuated M3 branch of the left middle cerebral artery (may reflect acute vessel occlusion vs severe stenosis) and moderate stenosis within the left P1 segment. Neck CTA showed extensive atherosclerotic plaque within the left carotid bifurcation resulting in severe stenosis of the distal left common carotid artery and the proximal left internal and external carotid arteries with approximate 80% stenosis of the proximal left internal carotid artery. Neck CTA also revealed severe stenosis at the origin of the right vertebral artery. Given his presenting symptoms and radiographic findings as per above, patient was administered TNK as advised by the TeleStroke neurologist. Patient developed expressive aphasia and word finding difficulty following administration of the TNK per staff in the ED. Repeat stat head CT without contrast was obtained in the ED following his change in mental status which did not show any evidence of acute intracranial hemorrhage however it did once again note several hypodense foci within the left frontal lobe consistent with infarct as previously seen on his prior head CT - although age indeterminate, it is assumed that these are old areas of infarct. Patient's right-sided weakness has significantly improved following administration of the TNK. His expressive aphasia and word finding difficulty however still persist. Acute CVA s/p TNK Administration: History as per above and HPI. Presenting labs + EKG rather unremarkable. Patient to ICU s/p TNK administration - ICU consulted and made of patient via TT. Repeat head CT in 24 hours following TNK administration to monitor for any evidence of bleeding. Complete bedrest. NPO for now pending speech therapy evaluation. Service Superintendent also consulted for nutritional assessment. Brain MRI, echocardiogram pending. Neurology consult pending. Lipid panel, Hgb A1c in AM. PT/OT evals pending. Continue routine neuro checks. Starting Lipitor 40mg daily tomorrow AM. Allowing for permissive hypertension ISO acute CVA. CKD Stage III: Cr stable at 1.5 on admission, baseline Cr ~1.4-1.7 per chart review. Avoid nephrotoxic medications when able. Monitor renal function closely and renally dose medications when able. DM Type II: Hold home agents, SSI regimen while inpatient. Currently NPO as per above, glucose elevated slightly at 189 on admission. BSG checks ACHS. Most recent Hgb A1c was 7.3% approximately 1 month ago per chart review. Repeat Hgb A1c in AM as per above. Prior Alcohol Use: Patient with history of alcohol use disorder per chart review. Unsure of how much alcohol patient typically consumes secondary to his expressive aphasia and word finding difficulty s/p TNK as per above. As a precaution, will start IV thiamine + folic acid daily beginning tomorrow AM. Monitor for any signs of alcohol withdrawal. Other Chronic Medical Conditions: * HTN - Home hydralazine on hold for now ISO above. Of note, home ASA on hold for now s/p TNK administration. * Gout/GERD/Iron Deficiency - Can resume medications for these specific conditions when able. Can also resume home latanoprost eye drops. DVT Prophylaxis: SCDs/TEDs ISO TNK administration. Code Status: FULL CODE PCP: Art Cavazos, Disposition: Admit to ICU for closer monitoring s/p TNK administration. (Preceding documentation as per admitting provider.) Patient monitored overnight at the ICU for acute CVA status post TNK. 05/09, 1 AM Patient noted to have right-sided weakness, new right facial droop and worsening expressive aphasia relayed ICU provider. No new findings on repeat noncontrast head CT, CT angio of the head and neck. [place] stroke specialist recommended transfer for arteriogram and possible thrombectomy given concerns for residual thrombus in left M2 segment. Unable to find transport to [place] given weather conditions as per provider note. [facility] Neurology service was able to accept patient for transfer. Patient to transfer via [facility]. Total time to prepare this discharge summary was less than 10 minutes. Text document was generated using [employer] voice recognition software. It may contain grammatical or spelling errors. Kindly contact undersigned for clarification of any documentation item in question. Total Time Total Time Spent Total Time Spent (In Minutes): 10 Discharge Plan Discharge Items Patient Disposition: Transfer Acute Care Hospital Reason For Visit: ACUTE CVA S/P TNK Discharge Diagnosis: CVA status post TNK Activity: As commented below Activity Comment: as per [facility] eval Non-emergency contact: Primary Care Provider Call non-emergency contact if: you have any medication questions Follow-up/Referrals: Art Cavazos, [Primary Care Provider] - Diet: Nothing by Mouth Addtl Attending Provider Instructions: As per [facility] Pending Studies at Discharge: No Stand-Alone Forms: My [facility] Skilled Items Patient informed of condition?: Yes DNR: Yes Discharge Level of Care: Other Communicable Disease: No Discharge Prognosis: Deteriorating Lines: Peripheral IV Urinary Catheter: No Medications and DC Order Prescriptions: No Action cyanocobalamin (vitamin B-12) [Vitamin B-12] 1,000 mcg Tablet 1,000 mcg PO QPM omeprazole 40 mg capsule,delayed release(DR/EC) 40 mg PO QAM aspirin [Aspir-Low] 81 mg Tablet,Delayed Release (Dr/Ec) 81 mg PO DAILY ferrous sulfate 325 mg (65 mg iron) Tablet 325 mg PO QPM cholecalciferol (vitamin D3) [Vitamin D3] 10 mcg (400 unit) Tablet 20 mcg PO DAILY gqjtdnvvxle-wsyohcbym-ern C-Mn [Glucosamine Complex] 500-400 mg Capsule 1 cap PO AMHS sildenafil (pulm.hypertension) 20 mg Tablet 20 mg PO DIRECTED Rx Instructions: administer doses at least 4-6 hours apart Jardiance 25 mg tablet 25 mg PO QAM latanoprost 0.005 % drops 1 drp OPB QPM hydralazine 10 mg tablet 10 mg PO DAILY allopurinol 100 mg tablet 100 mg PO DAILY Discharge Orders: Discharge Order (Routine); Ordered 05/09/24 Ordered By: Nakul Tejada Admission Data Admit Date/Time: 05/08/24 12:06 Attending Provider: Justin Dahl Admit Provider: Justin Dahl Primary Care Provider: Art Cavazos Other Providers: Justin Dahl; Richard Mullen; Enrique Morrison Other Interventions: Discharge Summary Assessment (RN) Last Done: 05/09/24 07:07
[2024-05-09 07:19] LABS: Estimated Average Glucose 160 mg/dl; Hemoglobin A1C 7.2 % (4.5-5.6)
[2024-05-09] MEDS ORDERED: CHOLECALCIFEROL 10 MCG (400 UNITS) TAB PO SCH (09:00)
[2024-05-09] MEDS ORDERED: hydrALAZINE 10 MG TAB PO SCH (09:00)
[2024-05-09] MEDS ORDERED: allopurinoL 100 MG TAB PO SCH (09:00)
[2024-05-09] MEDS ORDERED: THIAMINE HCL 100 MG in SYRINGE 9 ML IV SCH (09:00)
[2024-05-09] MEDS ORDERED: ATORVASTATIN 40 MG TAB PO SCH (09:00)
[2024-05-09] MEDS ORDERED: FOLIC ACID 1 MG in SYRINGE 9.8 ML IV SCH (09:00)
[2024-05-09] MEDS ORDERED: PANTOprazole 40 MG TAB PO SCH ×2 (09:00)
[2024-05-09] MEDS ORDERED: PANTOprazole 40 MG/10 ML SYR IV SCH (09:00)
--- OUTSIDE RECORDS SUMMARY | 2024-05-09 10:41 | External Medical Summary | Summary of Care ---
Author Name Unknown Organization [facility] Address [address] [place] [address] Phone [phone] Care Team Providers Care It Security Consultant Name Role Phone Art Cavazos DO Primary Care Provider Encounter Details Date Type Department Care Team (Late st Contact Info) Description 04/15/2024 Documentation [facility] Shan Ritchie, Health Internet Sales Associate Allergies Active Allergy Reactions Criticality Noted Date Comments Amoxicillin Fever,Rash Medium 12/29/2013 documented as of this encounter (statuses as of 04/15/2024) Medications ONETOUCH ULTRA SYSTEM W/DEVICE KITIndications: DM type 2, goal A1c below 7 Use up to four times a day as directed 1 Kit 0 12/22/2009 Active B-12 1000 MCG PO TBCR Take by mouth 1 Tablet daily . Active FISH OIL 1000 MG PO CAPS Take 1 Capsule by mouth in the morning. Active GLUCOSAMINE CHONDR 1500 COMPLX PO CAPS Take 1 Capsule by mouth in the morning and 1 Capsule before bedtime. Pt takes tablets. 09/01/2013 Active aspirin 81 MG chewable tablet Take 1 Tablet by mouth in the morning. with food.. 100 Tab 5 10/29/2016 Active Ferrous Sulfate 325 (65 Fe) MG Oral Tablet (Feosol) Take 1 Tablet by mouth every afternoon. 60 Tab 11 07/02/2020 Active OneTouch UltraSoft LancetsIndicati ons:Type 2 diabetes mellitus with hemoglobin A1c goal of less than 7.0% (HCC) Use to test sugars once daily 100 Each 3 08/29/2021 Active Vitamin D-400 10 MCG (400 UNIT) Oral Tablet (cholecalcifero l (VIT D3))Indications :Vitamin D deficiency Take 2 Tablets by mouth daily. 120 Tablet 3 07/08/2022 Active OneTouch Ultra In Vitro Strip (Glucose Blood)Indicatio ns:Type 2 diabetes mellitus with stage 3a chronic kidney disease, without long-term current use of insulin (HCC) TEST 1 TO 2 TIMES DAILY. 200 Strip 3 02/20/2024 7:22 AM EDT 04/27/2023 06/05/19 25 Active Latanoprost 0.005 % Ophthalmic Solution (Xalatan) Instill 1 Drop into both eyes once daily every evening as directed 10 mL 3 01/19/2024 9:39 AM EDT 04/30/2023 Active hydrALAZINE HCl 10 MG Oral Tablet (Apresoline) Take 1 Tablet by mouth in the morning and 1 Tablet in the evening. 200 Tablet 3 02/28/2024 9:11 AM EDT 08/15/2023 Active Allopurinol 100 MG Oral Tablet (Zyloprim)Indic ations:Gouty arthritis of both feet Take 1 Tablet by mouth in the morning. 90 Tablet 3 02/16/2024 11:23 AM EDT 08/25/2023 Active Omeprazole 40 MG Oral Capsule Delayed Release (PriLOSEC) TAKE ONE CAPSULE BY MOUTH IN THE MORNING. 100 Capsule 3 02/28/2024 9:11 AM EDT 11/24/2023 11/24/19 25 Active Ketoconazole 2 % External Shampoo (Nizoral)Indica tions:Seborrhei c dermatitis of scalp Lather into scalp in the shower, leave in for 3 minutes, then rinse. Do this three times per week 120 mL 11 03/22/2024 11:42 AM EDT 03/19/2024 Active Empagliflozin 25 MG Oral Tablet (Jardiance)Ginger cations:Type 2 diabetes mellitus with stage 3a chronic kidney disease, without long-term current use of insulin (HCC) Take 1 Tablet by mouth in the morning. 90 Tablet 3 03/31/2024 Active documented as of this encounter (statuses as of 04/15/2024) Active Problems Problem Noted Date Diagnosed Date Gout of both feet 11/19/2023 MCI (mild cognitive impairment) 11/19/2023 Stress and adjustment reaction 07/10/2022 Hyponatremia 11/27/2021 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 Drug-induced hyperkalemia 10/25/2021 Overview (10/25/2021): Lisinopril Hypertensive kidney disease with stage 3a chronic kidney disease 05/30/2021 Type 2 diabetes mellitus wit h stage 3a chronic kidney disease, without long-term current use of insulin 10/16/2020 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 10/16/2020 Gastroesophageal reflux disease without esophagi tis 07/23/2018 HTN, goal below 140/90 07/15/2012 documented as of this encounter (statuses as of 04/15/2024) Resolved Problems Problem Noted Date Diagnosed Date Resolved Date Type 2 diabetes mellitus wit h stage 3b chronic kidney disease, without long-term current use of insulin 05/30/2021 06/07/2021 Essential hypertension with goal blood pressure less than 140/90 06/13/2014 03/27/2021 DM type 2 causing CKD stage 2 12/23/2012 03/09/2018 Overview: Per CKD protocol #1 CKD (chronic kidney disease) stage 2, GFR 60-89 ml/min 12/23/2012 07/21/2017 DM type 2 causing neurological disease 02/19/2010 09/01/2013 Diabetic polyneuropathy 02/19/2010 04/01/2014 Overview (08/11/2015): ICD-10 update of inactive term Type 2 DM with CKD stage 3 and hypertension 12/22/2009 10/16/2020 Overview (09/19/2015): ICD-10 update of inactive term NONE 12/18/2009 12/22/2009 documented as of this encounter (statuses as of 04/15/2024) Immunizations Name Administration Dates Next Due COVID-19 mRNA, LNP-s, No Pre serve, 2-Dose Series (Moderna) 08/02/2020,07/05/2020 COVID-19, MRNA-LNP, PF, 30 M CG/0.3 mL, 12 YRS AND ABOVE, IM (PFIZER-Comirnaty) 03/31/2024,03/21/2023 COVID-19, mRNA, LNP-s, PF, B ooster, 100mcg/0.5mg (Moderna) 11/09/2021,05/05/2021 Covid-19, Mrna, Lnp-s, Pf, B ivalent, 50 Mcg, IM, 12 yrs and above (Moderna) 05/31/2022 Pneumococcal Conjugate Vacc, 13 Valent (Prevnar) 09/29/2015 Pneumococcal Polysaccharide PPV23 (Pneumovax) 12/22/2009 Seasonal Influenza Vac., MDV , IM, 0.5 mL (Fluzone) 01/27/2015,03/02/2014,04/07/2013,01/25,03/19/2011,02/19/2010 03/02/2015 Seasonal Influenza, High Dos e, Trivalent, PF, IM (Fluzone HD) 03/31/2024 Seasonal Influenza, PF, 6 M & above, IM , (FluLaval or Fluzone) 02/18/2020,02/17/2017 Seasonal Influenza, Quadriva lent Hd (Fluzone Hd) 03/21/2023,02/04/2022,03/27/2021 Seasonal Influenza, Quadriva lent, No Preserve, IM 02/02/2016 Seasonal Influenza, Trivalen t, Adjuvanted, 65+ YRS, PF, (Fluad) 03/30/2019 TDAP (age 10 and older)(Boostrix) 05/23/2021 documented as of this encounter Social History Tobacco Use Types Packs/Day Years Used Date Smoking Tobacco: Former Pipe Passive Smoke Exposure: Past Smokeless Tobacco: Never Comments:used to smoke pipe in 1959's Alcohol Use Standard Drinks/Week Comments Yes 0 (1 standard drink = 0.6 oz pur e alcohol) occasional of variety PHQ-2 Answer Date Recorded PHQ Adult Total Score 4 10/10/2023 Hunger Vital Sign Answer Date Recorded Within the past 12 months, y ou worried that your food would run out before you got the money to buy more. Never true 03/21/20 23 Within the past 12 months, t he food you bought just didn't last and you didn't have money to get more. Never true 03/21/2023 Childcare Answer Date Recorded Do you feel overwhelmed with taking care of a child, family member or friend? No 03/21/2023 Does your family need help f inding childcare? (Household - for ages 0-17 years) Not on file 03/21/2023 Clothing Answer Date Recorded Have you been unable to get clothing when it was really needed? No 03/21/2023 Is your family able to get c lothes or diapers when needed? (Household - for ages 0-17 years) Not on file 03/21/2023 Personal Safety Answer Date Recorded Do you feel unsafe or have concerns for your saf ety? No 03/21/2023 Do you have concerns for you r family's safety? (Household - for ages 0-17 years) Not on file 03/21/2023 Utilities Answer Date Recorded Do you have trouble paying y our heating, water, or electric bill? (Adult - for ages 18 years and over) Not on file 03/21/2024 Is your family able to pay t he heat, water, or electric bill? (Household - for ages 0-17 years) Not on file 03/21/2024 Does your family have access to good internet? (Household - for ages 0-17 years) Not on file 03/21/2024 Employment Status Answer Date Recorded Are you unemployed or without regular income? No 03/21/2023 Does the household have a re lar source of income? (Household - for ages 0-17 years) Not on file 03/21/2023 Social Connections Answer Date Recorded How often do you feel lonely or isolated from those around you? (Adult - for ages 18 years and over) Not on file 03/21/2024 Financial Resource Strain Answer Date R ecorded Do you have any trouble payi ng for your medications, or do you think you might in the future? No 03/21/2023 Does your family have troubl e paying for medicine? (Household - for ages 0-17 years) Not on file 03/21/2023 Transportation Needs Answer Date Record ed READ ONLY Do you have troubl e getting a ride to medical visits or work? Never True 03/21/2023 Does your family have a hard time getting a ride to doctors visits? (Household - for ages 0-17 years) Not on file 03/21/2023 Has lack of transportation k ept you from medical appointments, meetings, work, or from getting things needed for daily living? Check all that apply. (Adult - for ages 18 years and over) Not on file 03/21/2023 Do you (or your family) have trouble finding or paying for a ride (transportation)? (Household - for ages 0-17 years) Not on file 03/21/2023 Housing Stability Answer Date Recorded Do you currently live in a s helter or have no steady place to sleep at night? No 03/21/2023 READ ONLY Do you think you a re at risk of becoming homeless? No 03/21/2023 Does your family worry about paying for your home or becoming homeless? (Household - for ages 0-17 years) Not on file 1 Are you homeless or worried that you might be in the future? (Adult - for ages 18 years and over) Not on file Are you (or your family) susan eless or worried that you might be in the future? (Household - for ages 0-17 years) Not on file Food Insecurity Answer Date Recorded Do you need food for this week? No 03/21/2023 Are you able to get enough f ood for your family? (Household - for ages 0-17 years) Not on file 03/21/2023 Does your family need food t his week? (Household - for ages 0-17 years) Not on file 03/21/2023 Do you always have enough fo od for your family? (Household - for ages 0-17 years) Not on file 03/21/2023 Sex and Gender Information Value Date Recorded Sex Assigned at Male 11/25/2018 9:05 AM EDT Legal Sex Male 5:56 AM EST Gender Identity Male 11/25/2018 9:05 AM EDT Sexual Orientation Straight 11/25/2018 9: 05 AM EDT documented as of this encounter Progress Notes * Shan Ritchie, Health Internet Sales Associate - 04/15/2024 1:50 PM EST Visit Type: Return Wellness Return Visit Type: Group exercise balance and strength circuit 45 min documented in this encounter Plan of Treatment Upcoming Encounters Date Type Department Care Team (Late st Contact Info) Description 05/05/2024 8:30 AM EST [facility] [place] [address] [facility] [place] [address] Enrique Kay, PhD [address] [facility] [place] [address] 08/02/2024 1:00 PM EDT Office Visit Family Practice [address] [place] [address] [address] [place] [phone] Art Cavazos DO [address] [place] [address] 10/15/2024 2:00 PM EDT Nurse Only [facility] [address] [place] [address] [address] [place] [phone] Sonali Echeverria RN [address] [place] [phone] 11/01/2024 2:20 PM EDT Office Visit Nephrology, [facility] [address] [place], [place] [address] Baldo Mackey MD [address] [facility] [place], [place] [address] 12/03/2024 2:00 PM EDT Office Visit Rheumatology [place] [address] [address] [place], [place] [address] Sarah Stroud CRNP [facility] [facility] [employer] [place], [place] [address] Scheduled Procedures Name Priority Associated Diagnoses Date/Ti me ESOPHAGOGASTRODUODENOSCOPY ( EGD), FLEXIBLE, TRANSORAL, DIAGNOSTIC Recall Anderson's esophagus with esophagitis Health Maintenance Due Date Last Done Comments Zoster Vaccines (1 of 2) 1990 Anderson's Esophagus Surveilance 10/26/2023 10/25/2020, 10/25/2020, 04/09/2018 Diabetic Eye Exam 04/01/2024 04/01/2023, , 06/02/2018, Additional history exists CKD HGB USE SMARTSET 30951 09/18/202409/18, 09/19/2023, 08/11/2023, Additional history exists GFR 09/28/2024 03/31/2024, 09/25, 09/19/2023, Additional history exists HbA1c 09/28/2024 03/31/2024, 10/25, 07/21/2023, Additional history exists Adult Wellness Visit 10/09/2024 10/10/2023, 09/20/2022, 06/06/2021 Albumin/Creatinine Ratio 10/09/2024 024, 11/18/2022, 11/20/2021, Additional history exists Depression Screening 10/09/2024 10/10/2023, 10/10/19 24 CKD PHOS USE SMARTSET 71803 03/31/2025 110 10/2023, 03/21/2023, 12/20/2021, Additional history exists Diabetic Foot Exam 03/31/2025 03/31/2024, 1 , 03/07/2022, Additional history exists DTap/Tdap Vaccines (2 - Td or Tdap) 05/23/2031 05/23/2021 Pneumococcal Vaccine: 65+ Years Completed 09/29/2015, 12/22/2009 COVID-19 Vaccine Completed 03/31/2024, , 05/31/2022, Additional history exists Influenza Vaccine (FLU shot) Completed 10/2023, 03/21/2023, 02/04/2022, Additional history exists HPV (Gardasil) Vaccine Aged Out No lo nger eligible based on patient's age to complete this topic Hepatitis B Vaccine Aged Out No longe r eligible based on patient's age to complete this topic MENINGOCOCCAL (MENACTRA/MENVEO) Aged Out No longer eligible based on patient's age to complete this topic documented as of this encounter Medical Devices Not on filedocumented as of this encounter Care Teams It Security Consultant Relationship Specialty Start Date End Date Art Cavazos DO [address] [place] [address] PCP - General Internal Medicine 11/19/23 documented as of this encounter
--- OUTSIDE RECORDS SUMMARY | 2024-05-09 10:41 | External Medical Summary | Summary of Care ---
Author Name Unknown Organization [facility] Address [address] [place] [address] Phone [phone] Care Team Providers Care Blood Collector Name Role Phone Art Cavazos DO Primary Care Provider Encounter Details Date Type Department Care Team (Late st Contact Info) Description 04/27/2024 Documentation HEALTH & WELLNESS Shan Ritchie, Health Diffusion Operator Allergies Active Allergy Reactions Criticality Noted Date Comments Amoxicillin Fever,Rash Medium 12/29/2013 documented as of this encounter (statuses as of 04/27/2024) Medications ONETOUCH ULTRA SYSTEM W/DEVICE KITIndications: DM [...] every evening as directed 10 mL 3 04/19/2024 11:05 AM EST 04/30/2023 Active hydrALAZINE HCl 10 MG Oral [...] as of this encounter (statuses as of 04/27/2024) Active Problems Problem Noted Date Diagnosed Date [...] as of this encounter (statuses as of 04/27/2024) Resolved Problems Problem Noted Date Diagnosed Date [...] neurological disease 02/19/2010 09/01/2013 Diabetic polyneuropathy 02/19/2010 0401/2014 Overview (08/11/2015): ICD-10 update of inactive term Type 2 DM with CKD stage 3 and hypertension 12/22/2009 10/16/2020 Overview (09/19/2015): ICD-10 update of inactive term NONE 12/18/2009 12/22/2009 documented as of this encounter (statuses as of 04/27/2024) Immunizations Name Administration Dates Next Due COVID-19 [...] encounter Progress Notes * Shan Ritchie, Health Diffusion Operator - 04/27/2024 1:49 PM EST Visit Type: Return Wellness Return Visit Type: Group exercise strength and balance circuit 45 min documented in this encounter Plan of Treatment Upcoming Encounters Date Type Department Care Team (Late st Contact Info) Description 05/05/2024 8:30 AM EST Therapy Neuropsychology [facility] [place] [address] [facility] [place] [address] Enrique Kay, PhD [address] [facility] [place] [address] 08/02/2024 1:00 PM EDT Office Visit Family Practice [address] [place] [address] [address] [place] [phone] Art Cavazos DO [address] [place] [address] 10/15/2024 2:00 PM EDT Nurse Only [facility] [address] [place] [address] [address] [place] [phone] Sonali Echeverria RN [address] [place] [phone] 11/01/2024 2:20 PM EDT Office Visit Nephrology, [facility] Tamika [address] [place], [place] [address] Baldo Mackey MD [address] [facility] [place] [address] 12/03/2024 2:00 PM EDT Office Visit Rheumatology [address] [place], [place] [address] Sarah Stroud CRNP [facility] [place] [address] Scheduled Procedures Name Priority Associated Diagnoses Date/Ti me ESOPHAGOGASTRODUODENOSCOPY ( EGD), FLEXIBLE, TRANSORAL, DIAGNOSTIC Recall Anderson's esophagus with esophagitis Health Maintenance Due Date Last Done Comments Zoster Vaccines (1 of 2) 1990 Anderson's Esophagus Surveilance 10/26/2023 10/25/2020, 10/25/2020, 04/09/2018 Diabetic Eye Exam 04/01/2024 04/01/2023, , 06/02/2018, Additional history exists CKD HGB USE SMARTSET 33547 09/18/202409/18, 09/19/2023, 08/11/2023, Additional history exists GFR 09/28/2024 03/31/2024, 09/25, 09/19/2023, Additional history exists HbA1c 09/28/2024 03/31/2024, 10/25, 07/21/2023, Additional history exists Adult Wellness Visit 10/09/2024 10/10/2023, 09/20/2022, 06/06/2021 Albumin/Creatinine Ratio 10/09/2024 024, 11/18/2022, 11/20/2021, Additional history exists Depression Screening 10/09/2024 10/10/2023, 10/10/19 24 CKD PHOS USE SMARTSET 10900 03/31/2025 11/0 10/2023, 03/21/2023, 12/20/2021, Additional history exists Diabetic [...] filedocumented as of this encounter Care Teams Blood Collector Relationship Specialty Start Date End Date Art Cavazos DO [address] [place] [address] PCP - General Internal Medicine 11/19/23 documented as of this encounter
--- OUTSIDE RECORDS SUMMARY | 2024-05-09 10:41 | External Medical Summary | Summary of Care ---
Author Name Unknown Organization [facility] Address [address] [place] [address] Phone [phone] Care Team Providers Care General Assistant Name Role Phone Art Cavazos DO Primary Care Provider [phone] Reason for Visit * Reason Onset Date Comments Advice 05/07/2024 Encounter Details Date Type Department Care Team (Late st Contact Info) Description 05/07/2024 Telephone Family Practice [address] [facility] [place] [address] [place] [phone] Art Cavazos DO [address] [place], [place] [phone] Advice Allergies Active Allergy Reactions Criticality Noted Date Comments Amoxicillin Fever,Rash Medium 12/29/2013 documented as of this encounter (statuses as of 05/07/2024) Medications ScaleXtreme SYSTEM W/DEVICE KITIndications: DM type 2, goal [...] mouth in the morning. 90 Tablet 3 05/07/2024 Active documented as of this encounter (statuses as of 05/07/2024) Active Problems Problem Noted Date Diagnosed Date [...] as of this encounter (statuses as of 05/07/2024) Resolved Problems Problem Noted Date Diagnosed Date [...] as of this encounter (statuses as of 05/07/2024) Immunizations Name Administration Dates Next Due COVID-19 [...] Tobacco: Never Comments:used to smoke pipe in 1960's Alcohol Use Standard Drinks/Week Comments Yes 0 [...] 03/21/2023 Does the household have a re gular source of income? (Household - for ages [...] AM EDT documented as of this encounter Miscellaneous Notes * Telephone Encounter - Sonali OrrNESTOR - 05/07/2024 4:21 PM EST See prior note, was advised to contact [facility] pharmacy, will call Robert Aquino. Thank you * Telephone Encounter - Ashtyn Morgan OSA - 05/07/2024 4:00 PM EST Wants Sonali to call him documented in this encounter Plan of Treatment Upcoming Encounters Date Type Department Care Team (Late st Contact Info) Description 05/31/2024 11:00 AM EST Therapy Neuropsychology [facility] [place] [address] [place] [address] Enrique Kay, PhD [address] [place] [address] 08/02/2024 1:00 PM EDT Office Visit Family Practice [address] [place] [address] [address] [place] [phone] Art Cavazos DO [address] [facility] [place] [address] 10/15/2024 2:00 PM EDT Nurse Only Family Practice [address] [facility] [address] [place] [phone] Sonali Echeverria, RITCHIE [address] [facility] [place] [phone] 11/01/2024 2:20 PM EDT Office Visit Nephrology, [facility] [address] [place] [address] Baldo Mackey MD [address] [place] [address] 12/03/2024 2:00 PM EDT Office Visit Rheumatology [facility] [address] [facility] [place] [address] Sarah Stroud CRNP [address] [facility] [place] [address] Scheduled Procedures Name Priority Associated Diagnoses Date/Ti me ESOPHAGOGASTRODUODENOSCOPY ( EGD), FLEXIBLE, TRANSORAL, DIAGNOSTIC Recall Anderson's esophagus with esophagitis Health Maintenance Due Date Last Done Comments Zoster Vaccines (1 of 2) 1990 Anderson's Esophagus Surveilance 10/26/2023 10/25/2020, 10/25/2020, 04/09/2018 Diabetic Eye Exam 04/01/2024 04/01/2023, , 06/02/2018, Additional history exists CKD HGB USE SMARTSET 71637 09/18/202409/18, 09/19/2023, 08/11/2023, Additional history exists GFR 09/28/2024 03/31/2024, 09/25, 09/19/2023, Additional history exists HbA1c 09/28/2024 03/31/2024, 10/25, 07/21/2023, Additional history exists Adult Wellness Visit 10/09/2024 10/10/2023, 09/20/2022, 06/06/2021 Albumin/Creatinine Ratio 10/09/2024 024, 11/18/2022, 11/20/2021, Additional history exists Depression Screening 10/09/2024 10/10/2023, 10/10/19 24 CKD PHOS USE SMARTSET 40497 03/31/2025 11/0 10/2023, 03/21/2023, 12/20/2021, Additional history [...] filedocumented as of this encounter Care Teams General Assistant Relationship Specialty Start Date End Date Art Cavazos DO [address] [facility] [place] [address] PCP - General Internal Medicine 11/19/23 documented as of this encounter
--- OUTSIDE RECORDS SUMMARY | 2024-05-09 10:41 | External Medical Summary | Summary of Care ---
Author Name Unknown Organization [facility] Address [address] [place] [address] Phone [phone] Care Team Providers Care Per Diem Nurse Name Role Phone Art Cavazos DO Primary Care Provider Reason for Visit * Reason Comments Neuropsychological Evaluation * Evaluate & Treat - Unlimited Visits (Within 10 days (routine)) - Authorized Specialty Diagnoses / Procedures Referred By Kulwinder calderon Referred To Contact Psychiatry / Psychology Diagnoses Memory loss Art Cavazos DO Phone: tel: fax: Referral ID Status Reason Start Date Expiration Date Visits Requested Visits Authorized [id number] Authorized Specialty Services Required 10/13/[phone] Encounter Details Date Type Department Care Team (Late st Contact Info) Description 05/05/2024 8:30 AM EST Therapy Neuropsychology [facility] [place] [address] [place] [address] Enrique Kay, PhD 200 [facility] [place] [address] MCI (mild cognitive impairment)*; Mild anxiety; Memory loss [R41.3] Allergies Active Allergy Reactions Criticality Noted Date Comments Amoxicillin Fever,Rash Medium 12/29/2013 documented as of this encounter (statuses as of 05/06/2024) Medications Wealth Access SYSTEM W/DEVICE KITIndications: DM type 2, goal [...] hemoglobin A1c goal of less than 7.0% ([facility]) Use to test sugars once daily 100 Each 3 08/29/2021 Active Vitamin D-400 10 MCG (400 UNIT) Oral Tablet (cholecalcifero l (VIT D3))Indications :Vitamin D deficiency Take 2 Tablets by mouth daily. 120 Tablet 3 07/08/2022 Active OneTouch Ultra In Vitro Strip (Glucose Blood)Indicatio ns:Type 2 diabetes mellitus with stage 3a chronic kidney disease, without long-term current use of insulin ([facility]) TEST 1 TO 2 TIMES DAILY. 200 [...] 3 02/28/2024 9:11 AM EDT 11/24/2023 11/24/19 Active Ketoconazole 2 % External Shampoo (Nizoral)Indica [...] as of this encounter (statuses as of 05/06/2024) Active Problems Problem Noted Date Diagnosed Date [...] as of this encounter (statuses as of 05/06/2024) Resolved Problems Problem Noted Date Diagnosed Date [...] causing neurological disease 02/19/2010 09/01/2013 Diabetic polyneuropathy 02/19/201001/2014 Overview (08/11/2015): ICD-10 update of inactive term Type 2 DM with CKD stage 3 and hypertension 12/22/2009 10/16/2020 Overview (09/19/2015): ICD-10 update of inactive term NONE 12/18/2009 12/22/2009 documented as of this encounter (statuses as of 05/06/2024) Immunizations Name Administration Dates Next Due COVID-19 mRNA, LNP-s, No Pre serve, 2-Dose Series (Moderna) 08/02/2020,07/05/2020 COVID-19, MRNA-LNP, PF, 30 M CG/0.3 mL, 12 YRS AND ABOVE, IM ([email or web address]) 03/31/2024,03/21/2023 COVID-19, mRNA, LNP-s, PF, B ooster, [...] Tobacco: Never Comments:used to smoke pipe in s Alcohol Use Standard Drinks/Week Comments Yes 0 [...] as of this encounter Progress Notes * Enrique Kay, PhD - 05/05/2024 8:30 AM EST NEUROPSYCHOLOGY: REFERRAL AND INTAKE Patient Name: Mg Little Jr. Date of : 1940 Age: 84 Education: 18 years Date of Evaluation: 05/05/2024 Identifying and Referral Information: Mr. Mg Little Jr. was referred for a neuropsychological evaluation by Art Cavazos DO of [address] to assess current cognitive and emotional/behavioral functioning in thecontext of possible memory decline. We discussed what to expect during the neuropsychological evaluation process. I described limits ofconfidentiality. Pt provided informed consent to proceed with the evaluation. Background Information and Present Concerns: Pt is an 84-year-old, right-hand dominant, Andorran-speaking, man with 18 years of formal education. Pt was unaccompanied to the appt. Pt reported memory concern to PCP (Dr. Cavazos) within the past year. MMSE was 30/30 in 06/2023. Pt expressed that he feels his cognition is largely normal for his age. Pt endorsed mild short-term memory issues, namely he has some trouble at times with forgetfulness and has been relying more heavily on notes/reminders, which he feels is normal; pt reportedly has notbeen repeating self nor has he been misplacing items more frequently. Pt denied becoming lost/disoriented in familiar places. Pt denied attention/concentration issues. Pt denied slowed information processing speed. Pt denied fundamental language concerns. Pt denied concerns with visuospatial/constructional ability. Pt denied executive functioning issues. Pt endorsed somewhat recent imbalance, unclear as to what is contributing. Otherwise, he denied gait changes, shuffling, rigidity, tremors, recurrent falls, incontinence, dysphagia, changes in smell/taste, apraxia, and ataxia. Pt described recent mood as usually happy. Pt denied current depression and anxiety. He further denied SI/HI, hallucinations, paranoia, delusions, ken, apathy, and/or significant personality/behavioral changes (e.g., disinhibition, inappropriateness). Pt is not currently prescribed psychotropic medication. Pt is not currently in counseling. Sleep is "good." Pt achieves "the right amount" of sleep per night but could not provide an exact estimation. Pt denied symptoms of insomnia, STANISLAV, and RSBD. Energy is "good." Pt recently stopped distance running. He engages in an exercise program at [employer] numerous days each week. Appetite is normal. Pt has diabetes and is careful about his diet for this reason. Pt denied unusual food cravings/eating habits. Pt denied chronic pain. Pt denied any acute pain/discomfort today. Pt endorsed current ETOH use: sounds like he has several drinks per week. Pt denied current tobaccouse. Pt denied current recreational use of prescription/illict substances. Pt denied current excessive caffeine intake. Pt is reportedly independent for all basic and instrumental ADLs. 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 Driving is unremarkable- no concerns, recent accidents, tickets, or near-misses; he only engages in local driving and often takes the bus around town. Complications and Developmental Delays: Denied. Educational/Vocational History: Denied any history of learning problems/disorders. Denied academic retention. Graduated from high school. Earned undergraduate degree in Elementary Education. Has a master's degree in Education from [email or web address]. Worked in [employer], [employer], and the [employer]. Retired 24 years ago. Service: Served in the [employer] for 2 years. No combat exposure. Psychiatric History: Denied. Substance Use History: Denied. Social History: Born and raised in [place], [place]. Denied any history of abuse or neglect. Twice , twice . Has 5 adult children. Stays in touch with children. Has two adult children nearby. Legal Issues: Denied. 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) 02/19/2010 Patient Active Problem List Diagnosis HTN, goal below 140/90 Gastroesophageal reflux disease without esophagitis Type 2 diabetes mellitus with stage 3a chronic kidney disease, without long-term current use of insulin (HCC) 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 Hypertensive kidney disease with stage 3a chronic kidney disease (HCC) CHARLIE inhibitor intolerance Drug-induced hyperkalemia Hyponatremia Stress and adjustment reaction Gout of both feet MCI (mild cognitive impairment) Has a chronic L MCA infarct and CVD on neuroimaging but denied any history of acute stroke. Denied any known history of TBI/concussion, TIA, and seizures. MRI of the brain conducted on 10/10/2023 showed (per radiology read): FINDINGS Moderate generalized age-related cerebral parenchymal atrophy is appreciated with compensatory dilatation of the ventricles, sulci, and basal cisterns. A chronic left MCA infarct is noted with small areas of encephalomalacia in the left middle frontal, precentral, and central gyri. Patchy areas of T2 FLAIR hyperintensity in the bilateral cerebral white matter in the patient of this age most likely represent moderate chronic small vessel ischemic changes. There is no evidence of intracranial space-occupying lesion, edema, hemorrhage, mass effect, midline shift, hydrocephalus, or extraaxial fluid collection. The midline structures, including the pituitary gland, corpus callosum, brainstem, pineal region, and craniocervical junction are unremarkable. No restricted diffusion is identified to suspect acute ischemia. No abnormal susceptibility artifact is noted. Expected flow voids are maintained in the main intracranial vessels. Aside from hyperostosis frontalis interna, no calvarial abnormalities are detected. The intraorbital contents are within normal limits. The paranasal sinuses and mastoid air cells are clear and well aerated. IMPRESSION 1. No convincing acute abnormality identified. Chronic left MCA infarct as described above. Moderate to advanced generalized age-related cerebral parenchymal atrophy and moderate chronic small vesselwhite matter ischemic changes. Current Outpatient Medications (per medical record): Current Outpatient Medications Medication Sig Dispense Refill Wealth Access SYSTEM W/DEVICE KIT Use up to four times a day as directed 1 Kit 0 B-12 1000 MCG PO TBCR Take by mouth 1 Tablet daily . FISH OIL 1000 MG PO CAPS Take 1 Capsule by mouth in the morning. GLUCOSAMINE CHONDR 1500 COMPLX PO CAPS Take 1 Capsule by mouth in the morning and 1 Capsule before bedtime. Pt takes tablets. aspirin 81 MG chewable tablet Take 1 Tablet by mouth in the morning. with food.. 100 Tab 5 Ferrous Sulfate 325 (65 Fe) MG Oral Tablet (Feosol) Take 1 Tablet by mouth every afternoon. 60 Tab 11 OneTouch UltraSoft Lancets Use to test sugars once daily 100 Each 3 Vitamin D-400 10 MCG (400 UNIT) Oral Tablet (cholecalciferol (VIT D3)) Take 2 Tablets by mouth daily. 120 Tablet 3 OneTouch Ultra In Vitro Strip (Glucose Blood) TEST 1 TO 2 TIMES DAILY. 200 Strip 3 Latanoprost 0.005 % Ophthalmic Solution (Xalatan) Instill 1 Drop into both eyes once daily every evening as directed 10 mL 3 hydrALAZINE HCl 10 MG Oral Tablet (Apresoline) Take 1 Tablet by mouth in the morning and 1 Tablet in the evening. 200 Tablet 3 Allopurinol 100 MG Oral Tablet (Zyloprim) Take 1 Tablet by mouth in the morning. 90 Tablet 3 Omeprazole 40 MG Oral Capsule Delayed Release (PriLOSEC) TAKE ONE CAPSULE BY MOUTH IN THE MORNING. 100 Capsule 3 Ketoconazole 2 % External Shampoo (Nizoral) Lather into scalp in the shower, leave in for 3 minutes, then rinse. Do this three times per week 120 mL 11 Empagliflozin 25 MG Oral Tablet (Jardiance) Take 1 Tablet by mouth in the morning. 90 Tablet 3 No current facility-administered medications for this visit. Family History: Father had AD, at age 84. Mother was forgetful at end of life, at 99. Otherwise, denied any known family history of dementia, neurological disease, psychiatric illness, and substance abuse. Family History Problem Relation Name Age of Onset Other (Other) Mother dementia Other (Other) Father alzheimer's Heart disease Brother Vitor Mental Status Evaluation/Behavioral Observations: Sensorium: Awake and alert to stimulus with no difficulty maintaining an appropriate level of arousal. Orientation: Oriented to person, place, time, date. Was able to named president with MC cues; was able to accurately describe president without cues. Knew Trump was just re-elected. Appearance: Casually dressed and was appropriate to season and situation. No apparent distress. Grooming, Hygiene: Good. Behavior: Compliant and cooperative with the evaluation and testing procedures. Pleasant. Socially appropriate. Speech/language: Speech was WNL for rate, volume, and prosody. Receptive and expressive language were broadly WNL. Gait/Posture: Ambulated independently. Gait was mildly slow. Posture was unremarkable on casual observation. Assistive Devices: Hearing and vision were adequate for purposes of testing. Mood: Described as usually happy. Affect: Euthymic. Broad in range. Congruent. Motor: No tremor noted. Normal facial expression. Thought process/Content/Hallucinations: Broadly logical and linear. No unusual content noted. No hallucinations noted. Safety: Any safety issues, thoughts of harming self or others were denied. CSSRS was negative. Insight: Fair. Procedures: Clinical Interview & Record Review; Wide Range Achievement Test - 4 (WRAT-4: Word Reading); Hernandez Intellectual Screening Test (RIST); Neuropsychological Assessment Battery (NAB Form 1: Digits Forward/Backward, Naming, List Learning); Repeatable Battery for the Assessment of Neurop sychological Status (RBANS A: Figure Copy, Figure Recall, Line Orientation, Coding); Harmon Making Test A & B; Controlled Oral Word Association Test (COWAT: FAS, Animal Naming); Modified WisconsinCard Sorting Task (MWCST); BDAE Complex Ideational Material; Clock Drawing; A Random Letter Test; Geriatric Depression Scale-Short Form (GDS-SF); Generalized Anxiety Disorder-7 (MITESH-7) Plan: Clinical interview and neuropsychological testing completed. Interpretation of results and report of findings/impressions to follow. Feedback appointment scheduled for 05/31/2024. Enrique Kay, Ph.D., [facility] Neuropsychologist documented in this encounter Plan of Treatment Upcoming Encounters Date Type Department Care Team (Late st Contact Info) Description 05/31/2024 11:00 AM EST Therapy Neuropsychology [facility] [place] [address] [place] [address] Enrique Kay, PhD [address] [place] [address] 08/02/2024 1:00 PM EDT Office Visit [address] [place] [phone] Art Cavazos DO 293 [facility] [place] [address] 10/15/2024 2:00 PM EDT Nurse Only Family Practice [address] [facility] 293 [facility] [place] [phone] Sonali Echeverria, RITCHIE 293 [facility] [place] [phone] 11/01/2024 2:20 PM EDT Office Visit Nephrology, [facility] 200 [facility] [place] [address] Baldo Mackey MD 200 [facility] [place] [address] 12/03/2024 2:00 PM EDT Office Visit Rheumatology [facility] [address] [place], [place] [address] Sarah Stroud CRNP [address] [place], [place] [id number] Scheduled Procedures Name Priority Associated Diagnoses Date/Ti me ESOPHAGOGASTRODUODENOSCOPY ( EGD), FLEXIBLE, TRANSORAL, DIAGNOSTIC Recall Anderson's esophagus with esophagitis Scheduled Referrals Name Type Priority Associated Diagnoses Order Schedule ADULT/PEDS NEUROPSYCHOLOGY REFERRAL OP Referral Within 10 days (routine) Memory loss Ordered: 10/13/2023 Health Maintenance Due Date Last Done Comments Zoster Vaccines (1 of 2) 1990 Anderson's Esophagus Surveilance 10/26/2023 10/25/2020, 10/25/2020, 04/09/2018 Diabetic Eye Exam 04/01/2024 04/01/2023, , 06/02/2018, Additional history exists CKD HGB USE SMARTSET 60564 09/18/202409/18, 09/19/2023, 08/11/2023, Additional history exists GFR 09/28/2024 03/31/2024, 09/25, 09/19/2023, Additional history exists HbA1c 09/28/2024 03/31/2024, 10/25, 07/21/2023, Additional history exists Adult Wellness Visit 10/09/2024 10/10/2023, 09/20/2022, 06/06/2021 Albumin/Creatinine Ratio 10/09/2024 024, 11/18/2022, 11/20/2021, Additional history exists Depression Screening 10/09/2024 10/10/2023, 10/10/19 24 CKD PHOS USE SMARTSET 16524 03/31/2025 11/10/2023, 03/21/2023, 12/20/2021, Additional history exists Diabetic Foot [...] Not on filedocumented as of this encounter Visit Diagnoses Diagnosis MCI (mild cognitive impairment)- Primary Mild cognitive impairment, so stated Mild anxiety Anxiety state, unspecified Memory loss [R41.3] Memory loss documented in this encounter Care Teams Per Diem Nurse Relationship Specialty Start Date End Date Art Cavazos DO [address] [place] [address] PCP - General Internal Medicine 11/19/23 documented as of this encounter
--- OUTSIDE RECORDS SUMMARY | 2024-05-09 10:41 | External Medical Summary | Summary of Care ---
Author Name Unknown Organization [facility] Address [address] [place] [address] Phone [phone] Care Team Providers Care Armature Straightener Name Role Phone Art Cavazos DO Primary Care Provider [phone] Encounter Details Date Type Department Care Team (Late st Contact Info) Description 04/28/2024 Documentation HEALTH & WELLNESS Shan [place], Health Plate Washer Allergies Active Allergy Reactions Criticality Noted Date Comments Amoxicillin Fever,Rash Medium 12/29/2013 documented as of this encounter (statuses as of 04/29/2024) Medications ONETOUCH ULTRA SYSTEM W/DEVICE KITIndications: DM [...] as of this encounter (statuses as of 04/29/2024) Active Problems Problem Noted Date Diagnosed Date [...] as of this encounter (statuses as of 04/29/2024) Resolved Problems Problem Noted Date Diagnosed Date [...] as of this encounter (statuses as of 04/29/2024) Immunizations Name Administration Dates Next Due COVID-19 [...] encounter Progress Notes * Shan R[place]ie, Health Plate Washer - 04/29/2024 10:33 AM EST Visit Type: Return Wellness Return Visit Type: Group exercise stretching class 45 min Visit Type: Return Wellness Return Visit Type: Group exercise basic balance class 30 min documented in this encounter Plan of Treatment Upcoming Encounters Date Type Department Care Team (Late st Contact Info) Description 05/05/2024 8:30 AM EST Therapy [facility]ology [facility] [place] 200 [facility] [place] [address] Enrique Kay, PhD 200 [facility] [place] [address] 08/02/2024 1:00 PM EDT Office Visit Family Practice [address] [place] [address] 293 [place] [phone] Art Cavazos DO 293 [place] [address] 10/15/2024 2:00 PM EDT Nurse Only Family Practice [address] [place] [address] 293 [facility] [place] [phone] Sonali Echeverria, RITCHIE [address] [place] [phone] 11/01/2024 2:20 PM EDT Office Visit Nephrology, [facility] [place] 200 [facility] [place], [place] [address] Baldo Mackey MD 200 [facility] [place], [place] [address] 12/03/2024 2:00 PM EDT Office Visit Rheumatology [place] [address] [email or web address] [place], [place] [address] Sarah Stroud CRNP [facility] [employer] [place], [place] [address] Scheduled Procedures Name Priority Associated Diagnoses Date/Ti me ESOPHAGOGASTRODUODENOSCOPY ( EGD), FLEXIBLE, TRANSORAL, DIAGNOSTIC Recall Anderson's esophagus with esophagitis Health Maintenance Due Date Last Done Comments Zoster Vaccines (1 of 2) 1990 Anderson's Esophagus Surveilance 10/26/2023 10/25/2020, 10/25/2020, 04/09/2018 Diabetic Eye Exam 04/01/2024 04/01/2023, , 06/02/2018, Additional history exists CKD HGB USE SMARTSET 36147 09/18/202409/18, 09/19/2023, 08/11/2023, Additional history exists GFR 09/28/2024 03/31/2024, 09/25, 09/19/2023, Additional history exists HbA1c 09/28/2024 03/31/2024, 10/25, 07/21/2023, Additional history exists Adult Wellness Visit 10/09/2024 10/10/2023, 09/20/2022, 06/06/2021 Albumin/Creatinine Ratio 10/09/2024 024, 11/18/2022, 11/20/2021, Additional history exists Depression Screening 10/09/2024 10/10/2023, 10/10/19 24 CKD PHOS USE SMARTSET 02982 03/31/2025 11/0 10/2023, 03/21/2023, 12/20/2021, Additional history [...] filedocumented as of this encounter Care Teams Armature Straightener Relationship Specialty Start Date End Date Art Cavazos DO [address] [place] [place] [address] PCP - General Internal Medicine 11/19/23 documented as of this encounter
--- OUTSIDE RECORDS SUMMARY | 2024-05-09 10:41 | External Medical Summary | Summary of Care ---
Author Name Unknown Organization [facility] Address [address] [place] [address] Phone [phone] Care Team Providers Care Liquefied Natural Gas Plant Operator Name Role Phone Danny Cavazos DO Primary Care Provider [phone] Reason for Visit * Reason Comments Medication Refill Encounter Details Date Type Department Care Team (Late st Contact Info) Description 05/07/2024 Refill Family Practice [address], [place] [address] [place] [address] Danny Cavazos DO [address] [place], [place] [id number] Type 2 diabetes mellitus with stage 3a chronic kidney disease, without long-term current use of insulin ([facility]) Allergies Active Allergy Reactions Criticality Noted Date Comments Amoxicillin Fever,Rash Medium 12/29/2013 documented as of this encounter (statuses as of 05/07/2024) Medications Findline SYSTEM W/DEVICE KITIndications: DM type 2, goal A1c below 7 Use up to four times a day as directed 1 Kit 0 0 Active B-12 1000 MCG PO TBCR Take by mouth 1 Tablet daily . Active FISH OIL 1000 MG PO CAPS Take 1 Capsule by mouth in the morning. Active GLUCOSAMINE CHONDR 1500 COMPLX PO CAPS Take 1 Capsule by mouth in the morning and 1 Capsule before bedtime. Pt takes tablets. 4 Active aspirin 81 MG chewable tablet Take 1 Tablet by mouth in the morning. with food.. 100 Tab 5 7 Active Ferrous Sulfate 325 (65 Fe) MG Oral Tablet (Feosol) Take 1 Tablet by mouth every afternoon. 60 Tab 11 1 Active OneTouch UltraSoft LancetsIndicati ons:Type 2 diabetes mellitus with hemoglobin A1c goal of less than 7.0% ([facility]) Use to test sugars once daily 100 Each 3 2 Active Vitamin D-400 10 MCG (400 UNIT) Oral Tablet (cholecalcifero l (VIT D3))Indications :Vitamin D deficiency Take 2 Tablets by mouth daily. 120 Tablet 3 3 Active OneTouch Ultra In Vitro Strip (Glucose Blood)Indicatio ns:Type 2 diabetes mellitus with stage 3a chronic kidney disease, without long-term current use of insulin ([facility]) TEST 1 TO 2 TIMES DAILY. 200 Strip 3 02/20/2024 7:22 AM EDT 3 06/05/19 25 Active Latanoprost 0.005 % Ophthalmic Solution (Xalatan) Instill 1 Drop into both eyes once daily every evening as directed 10 mL 3 04/19/2024 11:05 AM EST 3 Active hydrALAZINE HCl 10 MG Oral Tablet (Apresoline) Take 1 Tablet by mouth in the morning and 1 Tablet in the evening. 200 Tablet 3 02/28/2024 9:11 AM EDT 4 Active Allopurinol 100 MG Oral Tablet (Zyloprim)Indic ations:Gouty arthritis of both feet Take 1 Tablet by mouth in the morning. 90 Tablet 3 02/16/2024 11:23 AM EDT 4 Active Omeprazole 40 MG Oral Capsule Delayed Release (PriLOSEC) TAKE ONE CAPSULE BY MOUTH IN THE MORNING. 100 Capsule 3 02/28/2024 9:11 AM EDT 4 11/24/19 25 Active Ketoconazole 2 % External Shampoo (Nizoral)Indica tions:Seborrhei c dermatitis of scalp Lather into scalp in the shower, leave in for 3 minutes, then rinse. Do this three times per week 120 mL 11 03/22/2024 11:42 AM EDT 4 Active Empagliflozin 25 MG Oral Tablet (Jardiance)Ginger cations:Type 2 diabetes mellitus with stage 3a chronic kidney disease, without long-term current use of insulin (HCC) Take 1 Tablet by mouth in the morning. 90 Tablet 3 4 Active Empagliflozin 25 MG Oral Tablet (Jardiance)Ginger cations:Type 2 diabetes mellitus with stage 3a chronic kidney disease, without long-term current use of insulin (HCC) Take 1 Tablet by mouth in the morning. 90 Tablet 3 4 05/07/20 24 Discontinu ed(Medicat ion List Clean Up) documented as of this encounter (statuses as [...] CG/0.3 mL, 12 YRS AND ABOVE, IM ([facility]) 03/31/2024,03/21/2023 COVID-19, mRNA, LNP-s, PF, B ooster, [...] encounter Miscellaneous Notes * Telephone Encounter - Loco Bush [facility] - 05/07/2024 4:03 PM ESTSigned Prescriptions: Disp Refills Empagliflozin 25 MG Oral Tablet (Jardiance)90 Tab*3 Sig: Take 1 Tablet by mouth in the morning. Authorizing Provider: DANNY CAVAZOS Ordering User: LOCO MAK * Telephone Encounter - Loco Bush [facility] - 05/07/2024 4:01 PM EST Rx resent. documented in this encounter Plan of Treatment Upcoming Encounters Date Type Department Care Team (Late st Contact Info) Description 05/31/2024 11:00 AM EST Therapy Neuropsychology [facility] [place] 200 [facility] [address] [place], [place] [address] Enrique Kay, PhD 200 [facility] [place], [place] [address] 08/02/2024 1:00 PM EDT Office Visit Family Practice [address] [place] [address] 293 [facility] [place] [address] Danny Cavazos, DO 293 [place] [address] 10/15/2024 2:00 PM EDT Nurse Only Family Practice [address] [place] [address], [place] [address] [place] [address] Sonali Echeverria, RN [address] [place] [address] 11/01/2024 2:20 PM EDT Office Visit Nephrology, [address] 200 [facility] [place], [place] [phone] Baldo Mackey MD 200 [facility] [place], [place] [address] 12/03/2024 2:00 PM EDT Office Visit Rheumatology [facility] [address] [place], [place] [address] Sarah Stroud CRNP [address] [facility] [place], [place] [address] Scheduled Procedures Name Priority Associated Diagnoses Date/Ti me ESOPHAGOGASTRODUODENOSCOPY ( EGD), FLEXIBLE, TRANSORAL, DIAGNOSTIC Recall Anderson's esophagus with esophagitis Health Maintenance Due Date Last Done Comments Zoster Vaccines (1 of 2) 1990 Anderson's Esophagus Surveilance 10/26/2023 10/25/2020, 10/25/2020, 04/09/2018 Diabetic Eye Exam 04/01/2024 04/01/2023, , 06/02/2018, Additional history exists CKD HGB USE SMARTSET 53482 09/18/202409/18, 09/19/2023, 08/11/2023, Additional history exists GFR 09/28/2024 03/31/2024, 09/25, 09/19/2023, Additional history exists HbA1c 09/28/2024 03/31/2024, 10/25, 07/21/2023, Additional history exists Adult Wellness Visit 10/09/2024 10/10/2023, 09/20/2022, 06/06/2021 Albumin/Creatinine Ratio 10/09/20242 024, 11/18/2022, 11/20/2021, Additional history exists Depression Screening 10/09/2024 10/10/2023, 10/10/19 CKD PHOS USE SMARTSET 97585 03/31/2025 11/0 10/2023, 03/21/2023, 12/20/2021, Additional history [...] as of this encounter Visit Diagnoses Diagnosis Type 2 diabetes mellitus with stage 3a chronic kidney disease, without long-term current use of insulin (HCC) documented in this encounter Care Teams Liquefied Natural Gas Plant Operator Relationship Specialty Start Date End Date Danny Cavazos DO [address] [place] [place] [address] PCP - General Internal Medicine 11/19/23 documented as of this encounter
--- OUTSIDE RECORDS SUMMARY | 2024-05-09 10:42 | External Medical Summary | Summary of Care ---
Author Name Unknown Organization [facility] Address [address] [place] [address] Phone [phone] Care Team Providers Care Dial Mounter Name Role Phone Art Cavazos DO Primary Care Provider [phone] Encounter Details Date Type Department Care Team (Late st Contact Info) Description 03/30/2024 Documentation HEALTH & WELLNESS Shan Ritchie, Health Glass Beveller Allergies Active Allergy Reactions Criticality Noted Date Comments Amoxicillin Fever,Rash Medium 12/29/2013 documented as of this encounter (statuses as of 03/30/2024) Medications Medication Sig Dispensed Refills Start Date End Date Status DNAdigestTOUCH ULTRA SYSTEM W/DEVICE KITIndications:DM type 2, goal A1c below 7 Use [...] 60 Tab 11 07/02/2020 Active OneTouch UltraSoft LancetsIndications :Type 2 diabetes mellitus with hemoglobin A1c goal of less than 7.0% (HCC) Use to test sugars once daily 100 Each 3 08/29/2021 Active Vitamin D-400 10 MCG (400 UNIT) Oral Tablet (cholecalciferol (VIT D3))Indications:Vi tamin D deficiency Take 2 Tablets by mouth daily. 120 Tablet 3 07/08/2022 Active OneTouch Ultra In Vitro Strip (Glucose Blood)Indications: Type 2 diabetes mellitus with stage 3a chronic kidney disease, without long-term current use of insulin (HCC) TEST 1 TO 2 TIMES DAILY. 200 Strip 3 04/27/2023 06/05/2024 Active Latanoprost 0.005 % Ophthalmic Solution (Xalatan) Instill 1 Drop into both eyes once daily every evening as directed 10 mL 3 04/30/2023 Active Empagliflozin 25 MG Oral Tablet (Jardiance)Indicat ions:Type 2 diabetes mellitus with stage 3a chronic kidney disease, without long-term current use of insulin (HCC) Take 1 Tablet by mouth in the morning. 90 Tablet 3 07/01/2023 Active hydrALAZINE HCl 10 MG Oral Tablet (Apresoline) Take 1 Tablet by mouth in the morning and 1 Tablet in the evening. 200 Tablet 3 08/15/2023 Active Allopurinol 100 MG Oral Tablet (Zyloprim)Indicati ons:Gouty arthritis of both feet Take 1 Tablet by mouth in the morning. 90 Tablet 3 08/25/2023 Active Omeprazole 40 MG Oral Capsule Delayed Release (PriLOSEC) TAKE ONE CAPSULE BY MOUTH IN THE MORNING. 100 Capsule 3 11/24/2023 11/23/2024 Active Ketoconazole 2 % External Shampoo (Nizoral)Indicatio ns:Seborrheic dermatitis of scalp Lather into scalp in the shower, leave in for 3 minutes, then rinse. Do this three times per week 120 mL 11 03/19/2024 Active documented as of this encounter (statuses as of 03/30/2024) Active Problems Problem Noted Date Diagnosed Date Gout of both feet 11/19/2023 MCI (mild cognitive impairment) 11/19/2023 Stress and adjustment reaction 07/10/2022 Hyponatremia 11/27/2021 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 Drug-induced hyperkalemia 10/25/2021 Overview: Lisinopril Hypertensive kidney disease with stage 3a chronic kidney disease 05/30/2021 Type 2 diabetes mellitus wit h stage 3a chronic kidney disease, without long-term current use of insulin 10/16/2020 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 10/16/2020 Gastroesophageal reflux disease without esophagi tis 07/23/2018 HTN, goal below 140/90 07/15/2012 documented as of this encounter (statuses as of 03/30/2024) Resolved Problems Problem Noted Date Diagnosed Date [...] neurological disease 02/19/2010 09/01/2013 Diabetic polyneuropathy 02/19/201001/2014 Overview: ICD-10 update of inactive term Type 2 DM with CKD stage 3 and hypertension 12/22/2009 10/16/2020 Overview: ICD-10 update of inactive term NONE 12/18/2009 12/22/2009 documented as of this encounter (statuses as of 03/30/2024) Immunizations Name Administration Dates Next Due COVID-19 mRNA, LNP-s, No Pre serve, 2-Dose Series (Moderna) 08/02/2020,07/05/2020 COVID-19, MRNA-LNP, PF, 30 M CG/0.3 mL, 12 YRS AND ABOVE, IM (PFIZER-Comirnat) 03/21/2023 COVID-19, mRNA, LNP-s, PF, B ooster, 100mcg/0.5mg (Moderna) 11/09/2021,05/05/2021 Covid-19, Mrna, Lnp-s, Pf, B ivalent, 50 Mcg, IM, 12 yrs and above (Moderna) 05/31/2022 Pneumococcal Conjugate Vacc, 13 Valent (Prevnar) 09/29/2015 Pneumococcal Polysaccharide PPV23 (Pneumovax) 12/22/2009 Seasonal Influenza Vac., MDV , IM, 0.5 mL (Fluzone) 01/27/2015,03/02/2014,04/07/2013,01/25,03/19/2011,02/19/2010 03/02/2015 Seasonal Influenza, PF, 6 M & above, [...] Tobacco: Never Comments:used to smoke pipe in Alcohol Use Standard Drinks/Week Comments Yes 0 [...] Assigned at Male 11/25/2018 9:05 AM EDT Gender Identity Male 11/25/2018 9:05 AM EDT Sexual Orientation Straight 11/25/2018 9: 05 AM EDT Job Start Date Occupation Industry Not on file Not on file Not on file documented as of this encounter Progress Notes * Shan Ritchie, Health Glass Beveller - 03/30/2024 2:04 PM EST Visit Type: Return Wellness Return Visit Type: Group exercise strength and balance class 45 min Visit Type: Return Wellness Return Visit Type: Independent exercise bike 30 min documented in this encounter Plan of Treatment Upcoming Encounters Date Type Department Care Team (Late st Contact Info) Description 03/31/2024 2:00 PM EST Nutrition Services Nutrition Services [address], [place] [address] [place] [address] Lisa Ma RDN [address] [place] [address] 03/31/2024 3:20 PM EST Office Visit Family Practice [address] [facility] 293 [facility] [place] [address] Art Cavazos DO 293 [facility] [place] [address] 05/05/2024 8:30 AM EST Therapy Neuropsychology [facility] 200 [place] [address] Enrique Kay, PhD 200 [facility] [place], [place] [id number] 10/15/2024 2:00 PM EDT Nurse Only Family Practice [address] [facility] 293 [facility] [place] [phone] Sonali Echeverria, [place] [address] [place] [address] 11/01/2024 2:20 PM EDT Office Visit Nephrology, [facility] 200 [place] [address] Baldo Mackey MD 200 [facility] [place], [place] [id number] 12/03/2024 2:00 PM EDT Office Visit Rheumatology [place] [address] [facility] [place], [place] [address] Sarah Stroud CRNP [facility] [place], [place] [id number] Scheduled Procedures Name Priority Associated Diagnoses Date/Ti me ESOPHAGOGASTRODUODENOSCOPY ( EGD), FLEXIBLE, TRANSORAL, DIAGNOSTIC Recall Anderson's esophagus with esophagitis Health Maintenance Due Date Last Done Comments Zoster Vaccines (1 of 2) 1990 Anderson's Esophagus Surveilance 10/26/2023 10/25/2020, 10/25/2020, 04/09/2018 COVID-19 Vaccine ( season) 2024 03/21/2023, 05/31/2022, 11/09/2021, Additional history exists Influenza Vaccine (FLU shot) (#1) 2024 03/21/2023, 02/04/2022, 03/27/2021, Additional history exists CKD PHOS USE SMARTSET 87765 03/21/202402/24, 12/20/2021, 10/03/2021, Additional history exists Diabetic Foot Exam 03/21/2024 03/21/2023, 1 , 10/16/2020, Additional history exists Diabetic Eye Exam 04/01/2024 04/01/2023, , 06/02/2018, Additional history exists GFR 04/24/2024 10/24/2023, 08/25, 08/11/2023, Additional history exists HbA1c 05/20/2024 11/19/2023, 06/27, 03/21/2023, Additional history exists CKD HGB USE SMARTSET 75769 09/18/202409/18, 09/19/2023, 08/11/2023, Additional history exists Adult Wellness Visit 10/09/2024 10/10/2023, 09/20/2022, 06/06/2021 Albumin/Creatinine Ratio 10/09/2024 024, 11/18/2022, 11/20/2021, Additional history exists Depression Screening 10/09/2024 10/10/2023, 10/10/19 24 DTap/Tdap Vaccines (2 - Td or Tdap) 05/23/2031 05/23/2021 Pneumococcal Vaccine: 65+ Years Completed 09/29/2015, 12/22/2009 HPV (Gardasil) Vaccine Aged Out No lo [...] filedocumented as of this encounter Care Teams Dial Mounter Relationship Specialty Start Date End Date Art Cavazos DO [address] [place] [place] [address] PCP - General Internal Medicine 11/19/23 documented as of this encounter
--- OUTSIDE RECORDS SUMMARY | 2024-05-09 10:42 | External Medical Summary ---
Author Name Unknown Address Unknown Organization [id number]:[facility] - [address] [facility] [address] Laboratory Report Ordering Provider Test Date Status LUCINDA DELGADO 03/31/2024 15:56:28 Final Observation Date Value Abnormality Reference (Units ) Status HbA1C 03/31/2024 15:56:28 7.3 Above high normal 4. 0-5.6 (%) Final The use of HbA1c to monitor glycemic status is based on normal hemoglobin and HbA composition. This test should not be used in patients with abnormal hemoglobin that affects the half life of the red blood cell or the in vivo glycation rates. Glucose, estimated average 03/31/2024 15:56:28 163 Above high normal <126 (mg/dL) Jaswinder blankenship Performing Location [facility] [address]il[address] [facility] [address]
--- OUTSIDE RECORDS SUMMARY | 2024-05-09 10:42 | External Medical Summary | Summary of Care ---
Author Name Unknown Organization [facility] Address [address] [place] [address] Phone [phone] Care Team Providers Care Drafter Detail Name Role Phone Art Cavazos DO Primary Care Provider [phone] Encounter Details Date Type Department Care Team (Late st Contact Info) Description 03/31/2024 Documentation HEALTH & WELLNESS Shan Ritchie, Health Hydroelectric Mechanic Allergies Active Allergy Reactions Criticality Noted Date Comments Amoxicillin Fever,Rash Medium 12/29/2013 documented as of this encounter (statuses as of 04/01/2024) Medications Medication Sig Dispensed Refills Start Date End Date Status WeissBeergerTOUCH ULTRA SYSTEM W/DEVICE KITIndications:DM type 2, goal [...] as directed 10 mL 3 04/30/2023 Active hydrALAZINE HCl 10 MG Oral [...] per week 120 mL 11 03/19/2024 Active Empagliflozin 25 MG Oral Tablet (Jardiance)Indicat ions:Type 2 diabetes mellitus with stage 3a chronic kidney disease, without long-term current use of insulin (HCC) Take 1 Tablet by mouth in the morning. 90 Tablet 3 03/31/2024 Active documented as of this encounter (statuses as of 04/01/2024) Active Problems Problem Noted Date Diagnosed Date [...] as of this encounter (statuses as of 04/01/2024) Resolved Problems Problem Noted Date Diagnosed Date [...] as of this encounter (statuses as of 04/01/2024) Immunizations Name Administration Dates Next Due COVID-19 mRNA, LNP-s, No Pre serve, 2-Dose Series (Moderna) 08/02/2020,07/05/2020 COVID-19, MRNA-LNP, PF, 30 M CG/0.3 mL, 12 YRS AND ABOVE, IM (PFIZER-Comirnat) 03/31/2024,03/21/2023 COVID-19, mRNA, LNP-s, PF, B ooster, [...] encounter Progress Notes * Shan Ritchie, Health Hydroelectric Mechanic - 04/01/2024 12:20 PM EST Visit Type: Return Wellness Return Visit Type: Group exercise stretching class 45 min Visit Type: Return Wellness Return Visit Type: Group exercise basic strength and balance 30 min documented in this encounter Plan of Treatment Upcoming Encounters Date Type Department Care Team (Late st Contact Info) Description 05/05/2024 8:30 AM EST Therapy Neuropsychology [address] [place] [address] [place] [address] Enrique Kay, PhD [address] [place] [address] 08/02/2024 1:00 PM EDT Office Visit Family Practice 65 [facility] 293 [place] [phone] Art Cavazos DO 293 [place] [address] 10/15/2024 2:00 PM EDT Nurse Only Family Practice 65 [facility] 293 [place] [phone] Sonali Echeverria, RITCHIE 293 [place] [phone] 11/01/2024 2:20 PM EDT Office Visit Nephrology, [facility] 200 [facility] [place] [address] Baldo Mackey MD 200 [facility] [place], [place] [address] 12/03/2024 2:00 PM EDT Office Visit Rheumatology [facility] [address] [facility] [place], [place] [address] Sarah Stroud CRNP [address] [facility] [place], [place] [address] Scheduled Procedures Name Priority Associated Diagnoses Date/Ti me ESOPHAGOGASTRODUODENOSCOPY ( EGD), FLEXIBLE, TRANSORAL, DIAGNOSTIC Recall Anderson's esophagus with esophagitis Health Maintenance Due Date Last Done Comments Anderson's Esophagus Surveilance 10/26/2023 10/25/2020, 10/25/2020, 04/09/2018 Diabetic Eye Exam 04/01/2024 04/01/2023, , 06/02/2018, Additional history exists Zoster Vaccines (1 of 2) 04/01/2024 Pos tponed from 1990 (Patient Declined After Education) CKD HGB USE SMARTSET 20753 09/18/202409/18, 09/19/2023, 08/11/2023, Additional history exists GFR 09/28/2024 03/31/2024, 09/25, 09/19/2023, Additional history exists HbA1c 09/28/2024 03/31/2024, 10/25, 07/21/2023, Additional history exists Adult Wellness Visit 10/09/2024 10/10/2023, 09/20/2022, 06/06/2021 Albumin/Creatinine Ratio 10/09/2024 024, 11/18/2022, 11/20/2021, Additional history exists Depression Screening 10/09/2024 10/10/2023, 10/10/19 CKD PHOS USE SMARTSET 54931 03/31/2025 11/10/2023, 03/21/2023, 12/20/2021, Additional history exists Diabetic Foot Exam 03/31/2025 03/31/2024, 1 , 03/07/2022, Additional history exists DTap/Tdap Vaccines (2 - Td or Tdap) 05/23/2031 05/23/2021 Pneumococcal Vaccine: 65+ Years Completed 09/29/2015, 12/22/2009 COVID-19 Vaccine Completed 03/31/2024, , 05/31/2022, Additional history exists Influenza Vaccine (FLU shot) Completed 03/31/2024, 03/21/2023, 02/04/2022, Additional history exists HPV (Gardasil) [...] filedocumented as of this encounter Care Teams Drafter Detail Relationship Specialty Start Date End Date Art Cavazos DO [address] [place] [address] PCP - General Internal Medicine 11/19/23 documented as of this encounter
--- OUTSIDE RECORDS SUMMARY | 2024-05-09 10:42 | External Medical Summary | Summary of Care ---
Author Name Unknown Organization [facility] Address [address] [place] [address] Phone [phone] Care Team Providers Care Assembler Installer Structures Name Role Phone Art Cavazos DO Primary Care Provider [phone] Encounter Details Date Type Department Care Team (Late st Contact Info) Description 04/06/2024 Documentation HEALTH & WELLNESS Shan Ritchie, Health Extractor Tender Raw Stock Allergies Active Allergy Reactions Criticality Noted Date Comments Amoxicillin Fever,Rash Medium 12/29/2013 documented as of this encounter (statuses as of 04/06/2024) Medications ONETOUCH ULTRA SYSTEM W/DEVICE KITIndications: DM [...] as of this encounter (statuses as of 04/06/2024) Active Problems Problem Noted Date Diagnosed Date [...] as of this encounter (statuses as of 04/06/2024) Resolved Problems Problem Noted Date Diagnosed Date [...] as of this encounter (statuses as of 04/06/2024) Immunizations Name Administration Dates Next Due COVID-19 [...] encounter Progress Notes * Shan Ritchie, Health Extractor Tender [employer] - 04/06/2024 2:12 PM EST Visit Type: Return Wellness Return Visit Type: Group exercisestrength and balance class 45 min documented in this encounter Plan of Treatment Upcoming Encounters Date Type Department Care Team (Late st Contact Info) Description 05/05/2024 8:30 AM EST Therapy Neuropsychology [facility] 200 [facility] [place] [address] Enrique Kay, PhD 200 [facility] [place] [address] 08/02/2024 1:00 PM EDT Office Visit Family Practice [address] [place] [address] 293 [place] [phone] Art Cavazos DO 293 [place] [address] 10/15/2024 2:00 PM EDT Nurse Only [facility] [address] [place] [address] 293 [place] [phone] Sonali Echeverria RN 293 [place] [phone] 11/01/2024 2:20 PM EDT Office Visit Nephrology, [facility] [address] [place] [address] Baldo Mackey MD 200 [facility] [place], [place] [address] 12/03/2024 2:00 PM EDT Office Visit Rheumatology [place] [address] [employer] [place], [place] [address] Sarah Stroud CRNP [facility] [employer] [place], [place] [address] Scheduled Procedures Name Priority Associated Diagnoses Date/Ti me ESOPHAGOGASTRODUODENOSCOPY ( EGD), FLEXIBLE, TRANSORAL, DIAGNOSTIC Recall Anderson's esophagus with esophagitis Health Maintenance Due Date Last Done Comments Zoster Vaccines (1 of 2) 1990 Anderson's Esophagus Surveilance 10/26/2023 10/25/2020, 10/25/2020, 04/09/2018 Diabetic Eye Exam 04/01/2024 04/01/2023, , 06/02/2018, Additional history exists CKD HGB USE SMARTSET 38821 09/18/202409/18, 09/19/2023, 08/11/2023, Additional history exists GFR 09/28/2024 03/31/2024, 05/05/2023, 09/19/2023, Additional history exists HbA1c 09/28/2024 03/31/2024, 10/25, 07/21/2023, Additional history exists Adult Wellness Visit 10/09/2024 10/10/2023, 09/20/2022, 06/06/2021 Albumin/Creatinine Ratio 10/09/2024 024, 11/18/2022, 11/20/2021, Additional history exists Depression Screening 10/09/2024 10/10/2023, 10/10/19 24 CKD PHOS USE SMARTSET 33609 03/31/2025 11/0 10/2023, 03/21/2023, 12/20/2021, Additional history [...] filedocumented as of this encounter Care Teams Assembler Installer Structures Relationship Specialty Start Date End Date Art Cavazos DO [address] [place] [address] PCP - General Internal Medicine 11/19/23 documented as of this encounter
--- OUTSIDE RECORDS SUMMARY | 2024-05-09 10:42 | External Medical Summary | Summary of Care ---
Author Name Unknown Organization [facility] Address [address] [place] [address] Phone [phone] Care Team Providers Care Honing Machine Set Up Operator Name Role Phone Art Cavazos DO Primary Care Provider [phone] Encounter Details Date Type Department Care Team (Late st Contact Info) Description 04/07/2024 Documentation HEALTH & WELLNESS Shan Ritchie, Health Geosciences Faculty Member Allergies Active Allergy Reactions Criticality Noted Date Comments Amoxicillin Fever,Rash Medium 12/29/2013 documented as of this encounter (statuses as of 04/08/2024) Medications ONETOUCH ULTRA SYSTEM W/DEVICE KITIndications: DM [...] as of this encounter (statuses as of 04/08/2024) Active Problems Problem Noted Date Diagnosed Date [...] as of this encounter (statuses as of 04/08/2024) Resolved Problems Problem Noted Date Diagnosed Date [...] as of this encounter (statuses as of 04/08/2024) Immunizations Name Administration Dates Next Due COVID-19 [...] encounter Progress Notes * Shan Ritchie, Health Geosciences Faculty Member - 04/08/2024 10:12 AM EST Visit Type: Return Wellness Return Visit Type: Group exercise beginner balance class 30 min documented in this encounter Plan of Treatment Upcoming Encounters Date Type Department Care Team (Late st Contact Info) Description 05/05/2024 8:30 AM EST Therapy [facility]ology [facility] [place] [address] [facility] [place] [address] Enrique Kay, PhD [address] [facility] [place] [address] 08/02/2024 1:00 PM EDT Office Visit Family Practice [address] [place] [address] [address] [place] [phone] Art Cavazos DO [address] [place] [address] 10/15/2024 2:00 PM EDT Nurse Only [facility] Practice [address] [place] [address] 293 [place] [phone] Sonali Echeverria RN [address] [place] [phone] 11/01/2024 2:20 PM EDT Office Visit Nephrology, [facility] [place] [address] [place], [place] [address] Baldo Mackey MD [address] [facility] [place], [place] [address] 12/03/2024 2:00 PM EDT Office Visit Rheumatology [place] [address] [place], [place] [address] Sarah Stroud CRNP [address] [place] [address] Scheduled Procedures Name Priority Associated Diagnoses Date/Ti me ESOPHAGOGASTRODUODENOSCOPY ( EGD), FLEXIBLE, TRANSORAL, DIAGNOSTIC Recall Anderson's esophagus with esophagitis Health Maintenance Due Date Last Done Comments Zoster Vaccines (1 of 2) 1990 Anderson's Esophagus Surveilance 10/26/2023 10/25/2020, 10/25/2020, 04/09/2018 Diabetic Eye Exam 04/01/2024 04/01/2023, , 06/02/2018, Additional history exists CKD HGB USE SMARTSET 25481 09/18/202409/18, 09/19/2023, 08/11/2023, Additional history exists GFR 09/28/2024 03/31/2024, 09/25, 09/19/2023, Additional history exists HbA1c 09/28/2024 03/31/2024, 10/25, 07/21/2023, Additional history exists Adult Wellness Visit 10/09/2024 10/10/2023, 09/20/2022, 06/06/2021 Albumin/Creatinine Ratio 10/09/2024 024, 11/18/2022, 11/20/2021, Additional history exists Depression Screening 10/09/2024 10/10/2023, 10/10/19 24 CKD PHOS USE SMARTSET 35326 03/31/2025 110 10/2023, 03/21/2023, 12/20/2021, Additional history [...] filedocumented as of this encounter Care Teams Honing Machine Set Up Operator Relationship Specialty Start Date End Date Art Cavazos DO [address] [place] [address] PCP - General Internal Medicine 11/19/23 documented as of this encounter
--- OUTSIDE RECORDS SUMMARY | 2024-05-09 10:42 | External Medical Summary ---
Author Name Unknown Address Unknown Organization K01:[facility] [place] [address] [facility] [address] Laboratory Report Ordering Provider Test Date Status LUCINDA DELGADO 03/31/2024 15:56:28 Final Observation Date Value Abnormality Reference (Units ) Status BUN 03/31/2024 15:56:28 40 Above high normal 6-20 (mg/dL) Final Creatinine 03/31/2024 15:56:28 1.5 Above high normal 0.6-1.2 (mg/dL) Final Glomerular filtration rate/1.73 sq M.predicted [Volume Rate/Area] in Serum, Plasma or Blood by Creatinine-based formula (CKD-EPI) 03/31/2024 15:56:28 45 Below low normal >=60 (mL/min) Final eGFR is calculated based on the CKD-EPI 2020 equation. Sodium 03/31/2024 15:56:28 137 135-146 (m mol/L) Final Potassium 03/31/2024 15:56:28 4.3 3.5-5.1 (m mol/L) Final Cl 03/31/2024 15:56:28 101 98-107 (mm ol/L) Final CO2 03/31/2024 15:56:28 24 22-32 (mmo l/L) Final Anion gap 03/31/2024 15:56:28 12 7-15 (mmol /L) Final Glucose 03/31/2024 15:56:28 198 Above high normal 70 -120 (mg/dL) Final Calcium 03/31/2024 15:56:28 9.4 8.4-10.2 ( mg/dL) Final Performing Location [facility] [place] [address] [place] [address]
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
--- OUTSIDE RECORDS SUMMARY | 2024-05-09 10:42 | External Medical Summary | Summary of Care ---
Author Name Unknown Organization [facility] Address [address] [place] [address] Phone [phone] Care Team Providers Care Club Lounge Attendant Name Role Phone Art Cavazos DO Primary Care Provider [phone] Reason for Referral * Evaluate & Treat - Unlimited Visits (Within 30 days (routine)) - Authorized Specialty Diagnoses / Procedures Referred By Kulwinder t Referred To Contact Optometry Diagnoses Type 2 diabetes mellitus with stage 3a chronic kidney disease, without long-term current use of insulin (HCC) Art Cavazos DO [address] [place] [address] Referral ID Status Reason Start Date Expiration Date Visits Requested Visits Authorized [id number] Authorized Specialty Services Required 03/31/2024 1 1 Question Answer Referring for: Optometry Conditions Optometry Conditions Diabetic Eye Exam without Retinopathy Referral Priority Within 30 days (routine) Where should this appointment be scheduled? External Reason for Visit * Reason Comments Follow Up Encounter Details Date Type Department Care Team (Late st Contact Info) Description 03/31/2024 3:20 PM EST Office Visit Family Practice [address], [place] [address] [place] [address] Art Cavazos DO [address] [place] [address] Type 2 diabetes mellitus with stage 3a chronic kidney disease, without long-term current use of insulin (HCC)*; Gastroesophageal reflux disease without esophagitis; 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; Hypertensive kidney disease with stage 3a chronic kidney disease (HCC); CHARLIE inhibitor intolerance; Hyponatremia; Gout of both feet; MCI (mild cognitive impairment); Risk and functional assessment; Gouty arthritis of both feet Allergies Active Allergy Reactions Criticality Noted Date Comments Amoxicillin Fever,Rash Medium 12/29/2013 documented as of this encounter (statuses as of 03/31/2024) Medications Medication Sig Dispensed Refills Start Date End Date Status ArtVenue SYSTEM W/DEVICE KITIndications:D M type 2, goal A1c below 7 Use [...] every afternoon. 60 Tab 11 07/02/2020 Active SCP Events UltraSoft LancetsIndicatio ns:Type 2 diabetes mellitus with hemoglobin A1c goal of less than 7.0% ([facility]) Use to test sugars once daily 100 Each 3 08/29/2021 Active Vitamin D-400 10 MCG (400 UNIT) Oral Tablet (cholecalciferol (VIT D3))Indications: Vitamin D deficiency Take 2 Tablets by mouth daily. 120 Tablet 3 07/08/2022 Active SCP Events Ultra In Vitro Strip (Glucose Blood)Indication s:Type 2 diabetes mellitus with stage 3a chronic kidney disease, without long-term current use of insulin ([facility]) TEST 1 TO 2 TIMES DAILY. 200 [...] 08/15/2023 Active Allopurinol 100 MG Oral Tablet (Zyloprim)Indica tions:Gouty arthritis of both feet Take 1 Tablet by mouth in the morning. 90 Tablet 3 08/25/2023 Active Omeprazole 40 MG Oral Capsule Delayed Release (PriLOSEC) TAKE ONE CAPSULE BY MOUTH IN THE MORNING. 100 Capsule 3 11/24/2023 11/23/2024 Active Ketoconazole 2 % External Shampoo (Nizoral)Indicat ions:Seborrheic dermatitis of scalp Lather into scalp in the shower, leave in for 3 minutes, then rinse. Do this three times per week 120 mL 11 03/19/2024 Active Empagliflozin 25 MG Oral Tablet (Jardiance)Indic ations:Type 2 diabetes mellitus with stage 3a chronic kidney disease, without long-term current use of insulin (HCC) Take 1 Tablet by mouth in the morning. 90 Tablet 3 03/31/2024 Active Empagliflozin 25 MG Oral Tablet (Jardiance)Indic ations:Type 2 diabetes mellitus with stage 3a chronic kidney disease, without long-term current use of insulin (HCC) Take 1 Tablet by mouth in the morning. 90 Tablet 3 07/01/2023 03/31/2024 Discontinued (Refill) documented as of this encounter (statuses as [...] CG/0.3 mL, 12 YRS AND ABOVE, IM ([facility]) 03/31/2024,03/21/2023 COVID-19, mRNA, LNP-s, PF, B ooster, [...] Passive Smoke Exposure: Past Smokeless Tobacco: Never Tobacco Cessation:Counseling Given: Yes Comments:used to smoke pipe in 1959's Alcohol [...] Sign Reading Time Taken Comments Blood Pressure 132/80 03/31/2024 3:35 PM EST Pulse 65 03/31/2024 3:35 PM EST Temperature 36 C (96.8 F) 03/31/2024 3:35 PM EST Respiratory Rate 14 03/31/2024 3:35 PM EST Oxygen Saturation 94% 03/31/2024 3:35 PM EST Inhaled Oxygen Concentration - - Weight 87 kg (191 lb 14.4 oz) 03/31/2024 3:35 PM EST Height 172.1 cm (5' 7.75") 03/31/2024 3:35 PM ES T Body Mass Index 29.39 03/31/2024 3:35 PM EST documented in this encounter Patient Instructions * Patient Instructions* Sonali Orr LPN - 03/31/2024 3:30 PM EST Patient Instructions - Fall Prevention (This education is for all patients over 65 regardless of symptoms) Remember to take your current medications as prescribed. In order to prevent falls, you are encouraged to: Exercise Utilize assistive/adaptive devices Avoid multifocal lenses when walking Avoid hazards in home Maintain a regular toileting schedule Any questions please contact our office. Preventing Falls in the Home (This education is for all patients over 65 regardless of symptoms) As you get older, falls are more likely. Thats because your reaction time slows. Your muscles and joints may also get stiffer, making them less flexible. Illness, medications, and vision changes can also affect your balance. A fall could leave you unable to live on your own. To make your home safer, follow these tips: Floors Put nonskid pads under area rugs Remove throw rugs Replace worn floor coverings Tack carpets firmly to each step on carpeted stairs. Put nonskid strips on the edges of uncarpeted stairs Keep floors and stairs free of clutter and cords Arrange furniture so there are clear pathways Clean up any spills right away Bathrooms Install grab bars in the tub or shower Apply nonskid strips or put a nonskid rubber mat in the tub or shower Sit on a bath chair to bathe Use bathmats with nonskid backing Lighting Keep a flashlight in each room Put a nightlight along the pathway between the bedroom and the bathroom Arturo Patient Education Copyright 2008 - 2010 Arturo except where otherwise noted Preventing Falls: Exercises to Improve Balance, Flexibility, Strength, and Staying Power (This education is for all patients over 65 regardless of symptoms) Certain types of exercises may help make you less likely to fall. Try the ones below. Or do other exercises that your healthcare provider suggests. Depending on your health, you may need to start slowly. Dont let that stop you. Even small amounts of exercise can help you. Be sure to talk to yourhealthcare provider before starting any exercise program. Improve Balance Many types of exercise can help improve balance. Miguel chi and yoga are good examples. Heres another one to try. You can do it anytime and almost anywhere. Stand next to a counter or solid support. Push yourself up onto your tiptoes. Hold for 5 seconds. If you start to lose your balance, hold on to the counter. Rest and repeat 5 times. Work up to holding for 20 to 30 seconds, if you can. Increase Flexibility Being more flexible makes it easier for you to move around safely. Try exercises like the seated hamstring stretch. Sit in a chair and put one foot on a stool. Straighten your leg and reach with both hands down either side of your leg. Reach as far down your leg as you can. Hold for about 20 seconds. Go back to the starting position. Then repeat 5 times. Switch legs. Build Strength Resistance exercises help build strength. You can do them without equipment. Or you can use weights, elastic bands, or special machines. One such exercise is called the biceps curl. You can hold a 1 pound weight or even a can of soup. Do this exercise at least 3 times a week. Strive for everyday. Sit up straight in a chair. Keep your elbow close to your body and your wrist straight. Bend your arm, moving your hand up to your shoulder. Then slowly lower your arm. Repeat 5 times. Switch to the other arm. Build Your Staying Power Aerobic exercises make your heart and lungs stronger so you can keep moving longer. Walking and swimming are two of the best types of exercises you can do. Using a stationary bike is great, too. Find an aerobic exercise that you enjoy. Start slowly and build up. Even 5 minutes is helpful. Aimfor a goal of 30 minutes, at least 3 times a week. You dont have to do 30 minutes in one session. Break it up and walk a little throughout the day. More Helpful Tips Start easy. Slowly work up to doing more. Talk with your healthcare provider about the best exercises for you. Call senior centers or health clubs about exercise programs. If needed, have a family member watch you walk every so often to check your stability. Exercise with a friend. Choose an activity you both enjoy. Try exercises that you can do anytime, anywhere. Here are two examples. Have someone with you when you first try these: Practice walking by placing one foot right in front of the other. Stand up and sit down 10 times. Repeat this throughout the day. Arturo Patient Education Copyright 2009 - 2010 Arturo except where otherwise noted. Preventing Falls: Moving Safely Using a Cane or Walker (This education is for all patients over 65 regardless of symptoms) Keep the cane away from your feet so you dont trip. A walking aid, such as a cane or walker, can help you stay more independent and avoid falls. Remember to keep your walking aid within easy reach when youre in a chair or in bed. And learn how to use it safely so you dont injure yourself. Using a Cane If you have a stronger side, hold the cane on that side. Get your balance. Move the cane and your weaker leg forward. Support your weight on both the cane and your weaker side. Step with your stronger leg. Start again from step 1. If youre using a folding walker, be sure you know how to lock it open. Check that its locked open before each use. Using a Walker Roll the walker (or lift it, if youre using one without wheels) forward about 12 inches. Step forward with your weaker leg first. Use the walker to help keep your balance. Bring your other foot forward to the center of the walker. Start again from step 1. Helpful Tips Check with your healthcare provider about the right walking aid to use. Ask about a walker with a seat attached. Check the tips of your cane or walker to make sure they have nonskid covers. Move slowly from room to room. Dont barnes. Sit down to get dressed. Use a vianca pack or backpack to keep your hands free. Get help for jobs that mean climbing, even on a stepstool. Arturo Patient Education Copyright 2008 - 2010 Arturo except where otherwise noted. Treating Urinary Incontinence in Men (This education is for all patients over 65 regardless of symptoms) You can't always control the release of urine. You may leak urine. Or you may not be able to hold your urine until you can get to a bathroom. This is called urinary incontinence. The problem can be managed. Talk to your doctor about your treatment options. Taking Medications Prescription medications may help you. They may: Help the sphincter to work better. (This is the muscle that closes to keep urine from leaking out of the bladder.) Help stop the bladder from jonathan too often to push urine out. Help the bladder muscles contract with more force. Help relax the sphincter muscle and allow urine to flow more freely. Making Changes to Your Routine Certain changes in your daily routine may help. These include: Avoiding caffeine and alcohol. Using timed voiding. This is following a schedule for drinking fluids and urinating. Doing Kegel exercises daily. These exercises involve tightening the muscles in your sphincter and around your bladder to help strengthen them. Your doctor can explain how to do them. Using a Catheter A catheter is a narrow tube that is inserted through the urethra into the bladder. It drains urine.A condom catheter covers the penis. It channels urine into a collection bag. It is worn most of thetime. Intermittent catheterization means inserting a catheter to drain the bladder, then removing it. This is done on a regular schedule. Having Surgery If other options don't work, surgery may be recommended. If surgery is an option, your healthcare provider can discuss it with you and explain its risks and benefits. Healing After Prostate Surgery Surgery on the prostate gland can cause incontinence. Most often, the incontinence is only for a short time. It clears up when healing is complete. Very rarely, prostate surgery can result in permanent incontinence. Diabetes: Keeping Feet Healthy Inspect your feet every day for signs of a problem. Diabetes can damage nerves in your feet and cause neuropathy. This condition makes it hard for you to feel injuries or sore spots. Diabetes can also change blood flow, making it harder for small problems, like a blister, to heal properly. In fact, minor injuries can quickly become serious infections that send you to the hospital. Practice self-care to protect your feet and keep them healthy. Take Special Care Inspect your feet daily for problems such as redness, blisters, cracks, dry skin, or numbness. Use a mirror to see the bottoms of your feet. Or, ask for help. Manage your diabetes. Monitor and control your blood sugar. Take all your medications as prescribed. Avoid walking barefoot, even indoors. Wash your feet with warm water and mild soap. Dry well, especially between toes. Dont treat corns or calluses yourself. Talk to your doctor or accounts payable associate (a doctor who specializes in foot care) if you need assistance trimming your toenails. Use moisturizing cream or lotion if you have dry skin, but dont use it between toes. Dont use heating pads on your feet. If you have neuropathy, you could get a burn and not feel it. Stop smoking. Smoking restricts blood flow and can make it harder for wounds to heal. Have Regular Checkups Foot problems can develop quickly. So be sure to follow your healthcare teams schedule for regular checkups. During office visits, take off your shoes and socks as soon as you get in the exam room. Ask your healthcare provider to examine your feet for problems. This will make it easier to find and treat small skin irritations before they get worse. Regular checkups can also help keep track of the blood flow and feeling in your feet. If you have neuropathy, you may need to have checkups more often. Wear Proper Footwear Wearing proper footwear is very important. If areas of your feet have been damaged by too much pressure, your healthcare provider may recommend changing your footwear. In some cases, avoiding high heels or tight work boots may be all thats needed. Or, your healthcare provider may recommend special shoes or custom inserts. These help protect your feet and keep existing irritations from getting worse. If you need special footwear, ask your healthcare provider if you qualify for [facility] diabetic shoe program. Make Sure Shoes and Socks Fit Any pair of shoes--new or old--should feel comfortable as soon as you put them on. There shouldnt be any rubbing when you walk. Wear the right shoe for any activity. For instance, a running shoe is designed to keep your feet injury-free while jogging. Buy shoes at the end of the day, when your feet are larger. Make sure they provide support without feeling too loose. Make sure your socks fit, t oo. Wear soft, seamless, well-padded socks for activity. Cotton or microfiber socks are best to help to absorb sweat. To protect your feet, avoid shoes that are open-toed or open-heeled. If you have questions about what kinds of shoes and socks are best, talk to your healthcare team. Get Regular Exercise Regular exercise improves blood flow in your feet. It also increases foot strength and flexibility.Gentle exercises, like walking or riding a stationary bicycle, are best. You can also do special foot exercises. Just be sure to talk with your healthcare provider before starting any exercise program. Also mention if any exercise causes pain, redness, or other signs of foot problems. Note: If you have any kind of break in the skin of your foot or ankle, keep the area clean. Then call your doctor--especially if the area doesnt appear to be healing. [id number] [employer], [address] [place] [address], [place] [address]. All rights reserved. This information is not intended as a substitute for professional medical care. Always follow your healthcare professional's instructions. documented in this encounter Progress Notes * Art Cavazos, - 03/31/2024 4:01 PM EST SUBJECTIVE: Mg Little Jr. is a 84 year old male. Chief Complaint Patient presents with Follow Up HPI: Patient is an 83 year old male with a history of DM type II, HTN, CKD stage III, CVA, MCI, Anderson's Esophagus, and Anxiety that is seen for follow up. He is feeling well. No chest pain or shortness of breath. Weight is stable and appetite is good. Memory loss is stable. He continues to exercise [address] and walks outside for exercise. Patient Active Problem List Diagnosis HTN, goal below 140/90 Gastroesophageal reflux disease without esophagitis Type 2 diabetes mellitus with stage 3a chronic kidney disease, without long-term current use of insulin (HCC) 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 Hypertensive kidney disease with stage 3a chronic kidney disease (HCC) CHARLIE inhibitor intolerance Drug-induced hyperkalemia Hyponatremia Stress and adjustment reaction Gout of both feet MCI (mild cognitive impairment) Current Outpatient Medications Medication Sig Dispense Refill B-12 1000 MCG PO TBCR Take by [...] by mouth every afternoon. 60 Tab 11 Vitamin D-400 10 MCG (400 UNIT) Oral Tablet (cholecalciferol (VIT D3)) Take 2 Tablets by mouth daily. 120 Tablet 3 hydrALAZINE HCl 10 MG Oral Tablet (Apresoline) Take 1 Tablet by mouth in the morning and 1 Tablet in the evening. 200 Tablet 3 Allopurinol 100 MG Oral Tablet (Zyloprim) Take 1 Tablet by mouth in the morning. 90 Tablet 3 Omeprazole 40 MG Oral Capsule Delayed Release (PriLOSEC) TAKE ONE CAPSULE BY MOUTH IN THE MORNING. 100 Capsule 3 Empagliflozin 25 MG Oral Tablet (Jardiance) Take 1 Tablet by mouth in the morning. 90 Tablet 3 [employer]enue SYSTEM W/DEVICE KIT Use up to four times a day as directed 1 Kit 0 Prieto BatteryTouch UltraSoft Lancets Use to test sugars once daily 100 Each 3 OneTouch Ultra In Vitro Strip (Glucose Blood) TEST 1 TO 2 TIMES DAILY. 200 Strip 3 Latanoprost 0.005 % Ophthalmic Solution (Xalatan) Instill 1 Drop into both eyes once daily every evening as directed 10 mL 3 Ketoconazole 2 % External Shampoo (Nizoral) Lather into scalp in the shower, leave in for 3 minutes, then rinse. Do this three times per week 120 mL 11 No current facility-administered medications for this visit. The patient's medication list was reviewed and updated as needed. 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) 02/19/2010 Past Surgical History: Procedure Laterality Date COLONOSCOPY, DIAGNOSTIC (RECTUM) 02/06/2010 hyperplastic tissue repeat 5 yrs COLONOSCOPY, DIAGNOSTIC (RECTUM) 06/16/2018 diverticulosis/COLONOSCOPY FLEXIBLE PROXIMAL DIAGNOSTIC performed by John Paul Jameson MD at [facility] EGD, FLEXIBLE, DIAGNOSTIC 04/09/2018 Barretts, hiatal hernia, repeat 2 yrs/[facility] EGD, FLEXIBLE, DIAGNOSTIC 10/25/2020 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, small HH / evidence of inflammation, long segment of Anderson's Esophigitis / 2 year recall / ESOPHAGOGASTRODUODENOSCOPY (EGD), FLEXIBLE, TRANSORAL, DIAGNOSTIC performed by Marian Conley DO at [facility]COPY [facility] VASECTOMY 1972 Review of patient's allergies indicates: Allergen Reactions Amoxicillin Fever and Rash Review of Systems Constitutional: Negative for appetite change, fatigue and unexpected weight change. HENT: Negative for congestion. Respiratory: Negative for cough, shortness of breath and wheezing. Cardiovascular: Negative for chest pain, palpitations and leg swelling. Gastrointestinal: Negative for abdominal pain, blood in stool, constipation, diarrhea, nausea and vomiting. Genitourinary: Negative for dysuria, frequency and hematuria. Musculoskeletal: Positive for gait problem. Negative for back pain. Neurological: Negative for dizziness, syncope and headaches. Psychiatric/Behavioral: Positive for decreased concentration. Negative for sleep disturbance. The patient is not nervous/anxious. OBJECTIVE: BP 132/80 | Pulse 65 | Temp 36 C (96.8 F) | Resp 14 | Ht 1.721 m (5' 7.75") | Wt 87 kg (191 lb 14.4 oz) | SpO2 94% | BMI 29.39 kg/m | BSA 2.04 m Physical Exam Vitals and nursing note reviewed. Constitutional: General: He is not in acute distress. Appearance: Normal appearance. He is not toxic-appearing. HENT: Head: Normocephalic and atraumatic. Cardiovascular: Rate and Rhythm: Normal rate and regular rhythm. Heart sounds: Normal heart sounds. No murmur heard. No gallop. Pulmonary: Effort: Pulmonary effort is normal. Breath sounds: Normal breath sounds. No wheezing, rhonchi or rales. Abdominal: General: Bowel sounds are normal. There is no distension. Palpations: Abdomen is soft. Tenderness: There is no abdominal tenderness. Musculoskeletal: Right lower leg: No edema. Neurological: Mental Status: He is alert. Mental status is at baseline. Motor: No weakness. Gait: Gait normal. Psychiatric: Mood and Affect: Mood normal. Behavior: Behavior normal. Cognition and Memory: He exhibits impaired recent memory. PLAN AND ASSESSMENT: Type 2 diabetes mellitus with stage 3a chronic kidney disease, without long-term current use of insulin (HCC) (Primary) - DIABETES FOOT EXAM - TELEMEDICINE DIABETIC EYE - ADULT/PEDS OPHTHALMOLOGY/OPTOMETRY REFERRAL OP - PHOSPHORUS; Future; Expected date: 03/31/2024 - Renew Empagliflozin 25 MG Oral Tablet (Jardiance); Take 1 Tablet by mouth in the morning. - HEMOGLOBIN A1C; Future; Expected date: 03/31/2024 - BASIC METABOLIC PANEL; Future; Expected date: 03/31/2024 - PHOSPHORUS - HEMOGLOBIN A1C - BASIC METABOLIC PANEL Gastroesophageal reflux disease without esophagitis Continue Omeprazole 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 Continue Omeprazole Hypertensive kidney disease with stage 3a chronic kidney disease (HCC) Continue Hydralazine CHARLIE inhibitor intolerance Hyponatremia - BASIC METABOLIC PANEL; Future; Expected date: 03/31/2024 - BASIC METABOLIC PANEL Gout of both feet - URIC ACID; Future; Expected date: 03/31/2024 MCI (mild cognitive impairment) Patent scheduled for Neuropsychiatric Testing Risk and functional assessment Gouty arthritis of both feet - URIC ACID Continue Allopurinol Other orders - INFLUENZA VAC., TRIVALENT, HD, PF, 65 AND ABOVE, 0.5 ML IM (FLUZONE HD) - COVID-19, MRNA-LNP, PF, 24-25, 30MCG/0.3ML, IM, 12YRS AND ABOVE (PFIZER) Follow Up: Return in about 4 months (around 07/29/2024), or if symptoms worsen or fail to improve. Art Cavazos DO 4:01 PM 03/31/2024 * Sonali Orr LPN - 03/31/2024 3:30 PM EST Images from the original note were not included. Fall Risk Plan of Care Documentation: - Current medications reconciled Patient encouraged to: - Exercise - Provide education materials for Core strengthening - Utilize assistive/adaptive devices - Provide education materials - Avoid multifocal lenses when walking - Avoid hazards in home - Provide education materials - Maintain a regular toileting schedule Sonali Orr LPN 03/31/2024 DM Foot Exam completed today. Provider aware. Sonali Orr LPN Socks and Shoes Removed for Annual Diabetic Foot Screening RIGHT FOOT: No Reddened, Cracking, Or Open Areas Noted. RIGHT Dorsalis Pedis Pulse: Palpable RIGHT Posterior Tibial Pulse: Palpable RIGHT Monofilament:Patient reports feeling monofilament pressure on plantar surface of foot Bilaterally yellow flaky nails and bilateral great toe bunions. LEFT FOOT: No Reddened, Cracking or Open Areas Noted. LEFT Dorsalis Pedis Pulse: Palpable LEFT Posterior Tibial Pulse: Palpable LEFT Monofilament:Patient reports feeling monofilament pressure on plantar surface of foot Do you need diabetic shoes: N/A The importance of having a yearly diabetic eye exam has been discussed with patient. Order and/or Referral placed along with patient instructions. Provider made aware. Sonali Orr LPN Diabetic Retinopathy: Evaluating Your Eyes Diabetic retinopathy is a condition that happens when diabetes damages blood vessels in the rear ofthe eye. It can lead to vision loss. To help catch it early, have a complete dilated eye exam at least once a year. During the exam, the eye healthcare provider will review your medical history, examine your eyes, and check your vision. Women who are and have pre-existing type 1 or type 2 diabetes have an increased risk of retinopathy. Women with diabetes should have an eye exam before or in the first trimester. They should continue to be monitored every trimester and for 1 year after delivery, depending on the severity of the retinopathy. The retina is the light-sensitive part of the eye that allows you to see. High blood sugar can damage blood vessels of the retina and cause them to leak or bleed. This damage can lead to abnormal blood vessel growth. This condition is called diabetic retinopathy. You may not have symptoms early in the disease. Later, there may be floaters, blurred vision, or poor night vision. There may also be partial or complete vision loss. Early cases of diabetic retinopathy can be treated by carefully controlling blood sugar, blood pressure, and cholesterol. Surgery or laser treatments may help restore lost vision. Laser surgery can shrink abnormal blood vessels or close ones that are leaking. Medicines injected in the eye can help decrease swelling of the retina. Home care Take all medicines, including insulin or oral diabetic medicine, exactly as prescribed. Follow the diet advised by your healthcare provider. If you have high cholesterol, follow a low-fat, low-cholesterol diet. Monitor blood sugars as advised. Try to achieve your ideal weight. If you smoke, quit smoking. Tobacco use worsens the effect of diabetes on your blood vessels. If you have high blood pressure, consider buying an automatic blood pressure machine. These are available at most pharmacies. Use this to monitor your blood pressure. Report your blood pressure readings to your healthcare provider. Exercise regularly. Follow-up care Follow up with your healthcare provider, or as advised. You must have a complete eye exam at least once a year, more often if needed. Untreated diabetic retinopathy can lead to complete loss of vision. Occupational therapists can help you adapt to any vision loss you have, including learning techniques to safely administer insulin. When to seek medical advice Call your healthcare provider right away if any of these occur. Increasing blurriness or any sudden changes in your vision Sudden flashes of light inside your eye New floaters (small dots or strings that seem to be moving across your field of vision) Eye pain, redness, or discharge from your eyelid New dark spots appearing in your field of vision Halos around lights Dimness of vision Partial or complete loss of vision Women with diabetes should have a complete eye exam before becoming , or as soon as possible when they find out they are . Retinopathy sometimes worsens during . Your eye exam Your eye healthcare provider uses an eye chart and other tools to check your vision. Then he or sheexamines your eyes for signs of disease. You are given eye drops to widen (dilate) your pupils. Youmay have one or more of the following tests: Tonometry to measure fluid pressure inside the eye. Slit lamp exam to allow the healthcare provider to view the structures of your eye. Ultrasound to create an image of the eye using sound waves. Ultrasound may be used if blood is found in the clear gel that fills the eye (vitreous). Ocular coherence tomography (OCT) to create an image of the retina using light waves. This shows ifthere is fluid leaking into certain parts of the eye. It can also measure the thickness of the retina. Fluorescein angiography This test may be done to check the health of the inside lining of the eye (retina). It also checks the tiny blood vessels (capillaries) that carry blood to the retina. During the test: Photographs are taken of the retina. A dye is then injected into the bloodstream through the arm or hand. The dye travels to the capillaries in the eye. More photographs are taken of the retina. The dye causes the capillaries to stand out on the photographs. You may feel brief nausea during the procedure. For a few hours after the test, your skin, eyes, and urine may appear yellow. Talk with your healthcare provider for more information about this test. Date Last Reviewed: 10/25/201519998043-7658 [employer]. [address] [place] [address], [place] [address]. All rights reserved. This information is not intended as a substitute for professional medical care. Always follow your healthcare professional's instructions. documented in this encounter Plan of Treatment Upcoming Encounters Date Type Department Care Team (Late st Contact Info) Description 05/05/2024 8:30 AM EST Therapy Neuropsychology [facility] [place] [address] [facility] [place] [address] Enrique Kay, PhD 200 [facility] [place] [address] 08/02/2024 1:00 PM EDT Office Visit Family Practice [address] [place] [address] [address] [place] [phone] Art Cavazos DO [address] [place] [address] 10/15/2024 2:00 PM EDT Nurse Only Family Practice [address] [place] [address] [address] [place] [phone] Sonali Echeverria, RITCHIE [address] [place] [phone] 11/01/2024 2:20 PM EDT Office Visit Nephrology, [facility] 200 [facility] [place], [place] [address] Baldo Mackey MD 200 [facility] [place], [place] [address] 12/03/2024 2:00 PM EDT Office Visit Rheumatology [place] [id number] [place], [place] [address] Sarah Stroud CRNP [facility] [employer] [place], [place] [address] Pending Results Name Type Priority Associated Diagnoses Date /Time PHOSPHORUS Lab Routine Type 2 diabetes mellitus with stage 3a chronic kidney disease, without long-term current use of insulin (HCC) 03/31/2024 3:56 PM EST HEMOGLOBIN A1C Lab Routine Type 2 diabetes mellitus with stage 3a chronic kidney disease, without long-term current use of insulin (HCC) 03/31/2024 3:56 PM EST BASIC METABOLIC PANEL Lab Routine Type 2 diabetes mellitus with stage 3a chronic kidney disease, without long-term current use of insulin (HCC) Hyponatremia 03/31/2024 3:56 PM EST URIC ACID Lab Routine Gouty arthritis of both feet 03/31/2024 3:56 PM EST Scheduled Orders Name Type Priority Associated Diagnoses Orde r Schedule PHOSPHORUS Lab Routine Type 2 diabetes mellitus with stage 3a chronic kidney disease, without long-term current use of insulin (HCC) Expected: 03/31/2024, Expires: 03/31/2025 HEMOGLOBIN A1C Lab Routine Type 2 diabetes mellitus with stage 3a chronic kidney disease, without long-term current use of insulin (HCC) Expected: 03/31/2024 (Approximate), Expires: 03/31/2025 BASIC METABOLIC PANEL Lab Routine Type 2 diabetes mellitus with stage 3a chronic kidney disease, without long-term current use of insulin (HCC) Hyponatremia Expected: 03/31/2024 (Approximate), Expires: 03/31/2025 Scheduled Procedures Name Priority Associated Diagnoses Date/Ti me ESOPHAGOGASTRODUODENOSCOPY ( EGD), FLEXIBLE, TRANSORAL, DIAGNOSTIC Recall Anderson's esophagus with esophagitis Scheduled Referrals Name Type Priority Associated Diagnoses Orde r Schedule ADULT/PEDS OPHTHALMOLOGY/OPTOM ETRY REFERRAL OP Referral Within 30 days (routine) Type 2 diabetes mellitus with stage 3a chronic kidney disease, without long-term current use of insulin (HCC) Ordered: 03/31/2024 Health Maintenance Due Date Last Done Comments Anderson's Esophagus Surveilance 10/26/2023 10/25/2020, 10/25/2020, 04/09/2018 CKD PHOS USE SMARTSET 68249 03/21/202402/24, 12/20/2021, 10/03/2021, Additional history exists Diabetic Eye Exam 04/01/2024 04/01/2023, , 06/02/2018, Additional history exists Zoster Vaccines (1 of 2) 04/01/2024 Pos tponed from 1990 (Patient Declined After Education) GFR 04/24/2024 10/24/2023, 08/25, 08/11/2023, Additional history exists HbA1c 05/20/2024 11/19/2023, 0210/2023, 03/21/2023, Additional history exists CKD HGB USE SMARTSET 09300 09/18/202409/18, 09/19/2023, 08/11/2023, Additional history exists Adult Wellness Visit 10/09/2024 10/10/2023, 09/20/2022, 06/06/2021 Albumin/Creatinine Ratio 10/09/2024 024, 11/18/2022, 11/20/2021, Additional history exists Depression Screening 10/09/2024 10/10/2023, 10/10/19 24 Diabetic Foot Exam 03/31/2025 03/31/2024, 1 , [...] long-term current use of insulin (HCC)- Primary Gastroesophageal reflux disease without esophagitis Esophageal reflux 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 Anderson's esophagus Hypertensive kidney disease with stage 3a chronic kidney disease (HCC) CHARLIE inhibitor intolerance Other drug allergy Hyponatremia Hyposmolality and/or hyponatremia Gout of both feet MCI (mild cognitive impairment) Mild cognitive impairment, so stated Risk and functional assessment Screening for unspecified condition Gouty arthritis of both feet documented in this encounter Care Teams Club Lounge Attendant Relationship Specialty Start Date End Date Art Cavazos DO [address] [facility] [address] PCP - General Internal Medicine 11/19/23 documented as of this encounter
--- OUTSIDE RECORDS SUMMARY | 2024-05-09 10:42 | External Medical Summary | Summary of Care ---
Author Name Unknown Organization [facility] Address [address] [place] [address] Phone [phone] Care Team Providers Care Retail Analytics Manager Name Role Phone Art Cavazos DO Primary Care Provider [phone] Reason for Referral * Evaluate & Treat - Unlimited Visits (Within 30 days (routine)) - Authorized Specialty Diagnoses / Procedures Referred By Contoscar t Referred To Contact Optometry Diagnoses Type 2 diabetes mellitus with stage 3a chronic kidney disease, without long-term current use of insulin (HCC) Art Cavazos DO [address] [place] [address] Phone: tel: fax: Referral ID Status Reason Start Date Expiration Date Visits Requested Visits Authorized [id number] Authorized Specialty Services Required 03/31/2024 1 1 Question Answer Referring for: Optometry Conditions Optometry Conditions Diabetic Eye Exam without Retinopathy Referral Priority Within 30 days (routine) Where should this appointment be scheduled? External Reason for Visit * Reason Comments Follow Up Encounter Details Date Type Department Care Team (Late st Contact Info) Description 03/31/2024 3:20 PM EST Office Visit Family Practice [address] [facility] [place] [address] [place] [address] Art Cavazos DO [address] [place] [address] Type 2 diabetes mellitus with stage 3a [...] as of this encounter (statuses as of 04/05/2024) Medications [employer] SYSTEM W/DEVICE KITIndications: DM type 2, goal [...] every afternoon. 60 Tab 11 1 Active [employer] UltraSoft LancetsIndicati ons:Type 2 diabetes mellitus with hemoglobin A1c goal of less than 7.0% ([facility]) Use to test sugars once daily 100 Each 3 2 Active Vitamin D-400 10 MCG (400 UNIT) Oral Tablet (cholecalcifero l (VIT D3))Indications :Vitamin D deficiency Take 2 Tablets by mouth daily. 120 Tablet 3 3 Active [employer] Ultra In Vitro Strip (Glucose Blood)Indicatio ns:Type 2 diabetes mellitus with stage 3a chronic kidney disease, without long-term current use of insulin ([facility]) TEST 1 TO 2 TIMES DAILY. 200 Strip 3 02/20/2024 7:22 AM EDT 3 06/05/19 25 Active Latanoprost 0.005 % Ophthalmic Solution (Xalatan) Instill 1 Drop into both eyes once daily every evening as directed 10 mL 3 01/19/2024 9:39 AM EDT 3 Active hydrALAZINE HCl 10 MG Oral [...] mouth in the morning. 90 Tablet 3 01/20/2024 5:43 PM EDT 4 03/31/20 24 Discontinu ed(Refill) documented as of this encounter (statuses as of 04/05/2024) Active Problems Problem Noted Date Diagnosed Date [...] as of this encounter (statuses as of 04/05/2024) Resolved Problems Problem Noted Date Diagnosed Date [...] as of this encounter (statuses as of 04/05/2024) Immunizations Name Administration Dates Next Due COVID-19 [...] No 03/21/2023 Does the household have a [facility] source of income? (Household - for ages [...] AM EDT documented as of this encounter Last Filed [...] encounter Patient Instructions * Patient Instructions* Sonali Orr, WEDDING PHOTOGRAPHER - 03/31/2024 3:30 PM EST Patient Instructions [...] calluses yourself. Talk to your doctor or communicable disease specialist (a doctor who specializes in foot care) [...] the area doesnt appear to be healing. [phone] [employer], [address] [place] [address], [place] [address]. All rights reserved. This information is not intended as a substitute for professional medical care. Always follow your healthcare professional's instructions. documented in this encounter Progress Notes * Art Cavazos, DO - 03/31/2024 4:01 PM EST SUBJECTIVE: Mg [...] mouth in the morning. 90 Tablet 3 [employer] ULTRA SYSTEM W/DEVICE KIT Use up to four times a day as directed 1 Kit 0 [employer] UltraSoft Lancets Use to test sugars once daily 100 Each 3 [employer] Ultra In Vitro Strip (Glucose Blood) TEST [...] by John Paul Jameson MD at ENDOSCOPY [facility] EGD, FLEXIBLE, DIAGNOSTIC 04/09/2018 Barretts, hiatal hernia, repeat 2 yrs/[facility] EGD, FLEXIBLE, DIAGNOSTIC 10/25/2020 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, small HH / evidence of inflammation, long segment of Anderson's Esophigitis / 2 year recall / ESOPHAGOGASTRODUODENOSCOPY (EGD), FLEXIBLE, TRANSORAL, DIAGNOSTIC performed by Marian Conley DO at ENDOSCOPY [facility] VASECTOMY 1972 Review of patient's allergies indicates: [...] disease, without long-term current use of insulin ([facility]) (Primary) - DIABETES FOOT EXAM - TELEMEDICINE [...] information about this test. Date Last Reviewed: 10/25/201519990690-9551 [employer]. [address] [place] [address]. All rights reserved. This information is not intended as a substitute for professional medical care. Always follow your healthcare professional's instructions. documented in this encounter Miscellaneous Notes * Addendum Note - Gabi Dejesus OSA - 04/05/2024 10:27 AM ESTAddended by: GABI DEJESUS on: 04/05/2024 10:27 AM Modules accepted: Orders * Result Encounter Note - Sandra Candelaria LPN - 04/01/2024 10:30 AM EST MyG sent to patient. documented in this encounter Plan of Treatment Upcoming Encounters Date Type Department Care Team (Late st Contact Info) Description 05/05/2024 8:30 AM EST Therapy Neuropsychology [address] [place] [address] [place] [address] Enrique Kay, PhD [address] [place] [address] 08/02/2024 1:00 PM EDT Office Visit Family Practice 65 [facility] [address] [place] [phone] Art Cavazos DO 293 [place] [place] [address] 10/15/2024 2:00 PM EDT Nurse Only Family Practice [address] [place] [address] [address] [place] [address] Sonali Echeverria, RITCHIE [address] [place], [place] [phone] 11/01/2024 2:20 PM EDT Office Visit Nephrology, [facility] 200 [facility] [place], [place] [address] Baldo Mackey MD 200 [facility] [place], [place] [address] 12/03/2024 2:00 PM EDT Office Visit Rheumatology [facility] [address] [place] [address] Sarah Stroud CRNP [address] [place], [place] [address] Scheduled Procedures Name Priority Associated Diagnoses Date/Ti [...] Additional history exists CKD HGB USE SMARTSET 15008 09/18/202409/18, 09/19/2023, 08/11/2023, Additional history exists GFR 09/28/2024 03/31/2024, 09/25, 09/19/2023, Additional history exists HbA1c 09/28/2024 03/31/2024, 10/25, 07/21/2023, Additional history exists Adult Wellness Visit 10/09/2024 10/10/2023, 09/20/2022, 06/06/2021 Albumin/Creatinine Ratio 10/09/2024 024, 11/18/2022, 11/20/2021, Additional history exists Depression Screening 10/09/2024 10/10/2023, 10/10/19 24 CKD PHOS USE SMARTSET 61766 03/31/2025 11/0 10/2023, 03/21/2023, 12/20/2021, Additional history [...] Not on filedocumented as of this encounter Procedures Procedure Name Priority Date/Time Associated Diagnosis Comments HEMOGLOBIN A1C Routine 03/31/2024 3:56 PM EST Type 2 diabetes mellitus with stage 3a chronic kidney disease, without long-term current use of insulin (HCC) BASIC METABOLIC PANEL Routine 03/31/2024 3:56 PM EST Type 2 diabetes mellitus with stage 3a chronic kidney disease, without long-term current use of insulin (HCC) Hyponatremia PHOSPHORUS Routine 03/31/2024 3:56 PM EST Type 2 diabetes mellitus with stage 3a chronic kidney disease, without long-term current use of insulin (HCC) URIC ACID Routine 03/31/2024 3:56 PM EST Gouty arthritis of both feet documented in this encounter Results * URIC ACID (03/31/2024 3:56 PM EST) Uric Acid 4.8 3.4 - 7.0 mg/dL 04/01/2024 12:50 AM EST LABORATORY [facility] Blood Venous blood specimen / Unknown Venipuncture / Unknown 03/31/2024 3:56 PM EST 03/31/2024 3:56 PM EST Sarah PADILLA LAB BLOOD ORDERABLES Stacy amor Result [facility] [address] [place] [address] * (ABNORMAL) BASIC METABOLIC PANEL (03/31/2024 3:56 PM EST) BUN 40(H) 6 - 20 mg/dL 04/01/2024 12:50 AM EST LABORATORY [facility] CREATININE 1.5(H) 0.6 - 1.2 mg/dL 04/01/2024 12:50 AM EST LABORATORY [facility] EGFR 45(L) >=60 mL/min 04/01/2024 12:50 AM EST LAB[facility]ATORY [facility] Comment:eGFR is calculated b ased on the CKD-EPI 2020 equation. SODIUM 137 135 - 146 mmol/L 04/01/2024 12:50 AM EST LAB[facility]ATORY [facility] POTASSIUM 4.3 3.5 - 5.1 mmol/L 04/01/2024 12:50 AM EST LAB[facility] CHLORIDE 101 98 - 107 mmol/L 04/01/2024 12:50 AM EST LAB[facility] CO2 24 22 - 32 mmol/L 04/01/2024 12:50 AM EST LAB[facility] ANION GAP 12 7 - 15 mmol/L 04/01/2024 12:50 AM EST [facility] GLUCOSE 198(H) 70 - 120 mg/dL 04/01/2024 12:50 AM EST [facility] CALCIUM 9.4 8.4 - 10.2 mg/dL 04/01/2024 12:50 AM EST [facility] Blood Venous blood specimen / Unknown Venipuncture / Unknown 03/31/2024 3:56 PM EST 03/31/2024 3:56 PM EST Art Cavazos DO LAB BLOOD ORDERABLES Final Res ult Performing Organization Address [facility] Phone Number [facility]ATORY [facility] [address] [place] [address] * (ABNORMAL) HEMOGLOBIN A1C (03/31/2024 3:56 PM EST) Hemoglobin A1C 7.3(H) 4.0 - 5.6 % 04/01/2024 12:50 AM EST [facility] Comment:The use of HbA1c to monitor glycemic status is based on normal hemoglobin and HbA composition. This test should not be used in patients with abnormal hemoglobin that affects the half life of the red blood cell or the in vivo glycation rates. Estimated Average Glucose 163(H) <126 mg/dL 04/01/2024 12:50 AM EST [facility]ORY [facility] Blood Venous blood specimen / Unknown Venipuncture / Unknown 03/31/2024 3:56 PM EST 03/31/2024 3:56 PM EST Art Cavazos DO LAB BLOOD ORDERABLES Final Res ult Performing Organization Address [facility] de Phone Number LABORATORY [facility] [address] [place] [address] * PHOSPHORUS (03/31/2024 3:56 PM EST) Phosphorus 3.8 2.5 - 4.8 mg/dL 04/01/2024 12:50 AM EST [facility]ORY [facility] Blood Venous blood specimen / Unknown Venipuncture / Unknown 03/31/2024 3:56 PM EST 03/31/2024 3:56 PM EST Art Cavazos DO LAB BLOOD ORDERABLES Final Res ult Performing Organization Address City/[facility] Co de Phone Number LABORATORY [facility] [address] [place] [address] documented in this encounter Visit Diagnoses Diagnosis Type 2 [...] feet documented in this encounter Care Teams Retail Analytics Manager Relationship Specialty Start Date End Date Art Cavazos DO [address] [place] [address] PCP - General Internal Medicine 11/19/23 documented as of this encounter
--- OUTSIDE RECORDS SUMMARY | 2024-05-09 10:42 | External Medical Summary ---
Author Name Unknown Address Unknown Organization K01:LABORATORY [facility] - [address] [place] [address] Laboratory Report Ordering Provider Test Date Status KESHIA VICTOR 03/31/2024 15:56:28 Final Observation Date Value Abnormality Reference (Units ) Status Uric Acid 03/31/2024 15:56:28 4.8 3.4-7.0 (m g/dL) Final Performing Location LABORATORY C - [address] [place] [address]
--- OUTSIDE RECORDS SUMMARY | 2024-05-09 10:42 | External Medical Summary | Summary of Care ---
Author Name Unknown Organization [facility] Address [address] [place] [address] Phone [phone] Care Team Providers Care [employer] Maintenance Worker Name Role Phone Art Cavazos DO Primary Care Provider [phone] Reason for Visit * Reason Onset Date Comments Other 03/25/2024 Encounter Details Date Type Department Care Team (Late st Contact Info) Description 03/25/2024 Telephone Care Coordination and Integration [address] [place], [place] [id number] Aria Lawler OSA [address] [place], [place] [phone] Other Allergies Active Allergy Reactions Criticality Noted Date Comments Amoxicillin Fever,Rash Medium 12/29/2013 documented as of this encounter (statuses as of 03/26/2024) Medications Medication Sig Dispensed Refills Start Date End Date Status [employer] SYSTEM W/DEVICE KITIndications:DM type 2, goal A1c [...] hemoglobin A1c goal of less than 7.0% ([facility]) Use to test sugars once daily 100 Each 3 08/29/2021 Active Vitamin D-400 10 MCG (400 UNIT) Oral Tablet (cholecalciferol (VIT D3))Indications:Vi tamin D deficiency Take 2 Tablets by mouth daily. 120 Tablet 3 07/08/2022 Active OneTouch Ultra In Vitro Strip (Glucose Blood)Indications: Type 2 diabetes mellitus with stage 3a chronic kidney disease, without long-term current use of insulin ([facility]) TEST 1 TO 2 TIMES DAILY. 200 Strip 3 04/27/2023 06/05/2024 Active Latanoprost 0.005 % Ophthalmic Solution (Xalatan) Instill 1 Drop into both eyes once daily every evening as directed 10 mL 3 04/30/2023 Active Empagliflozin 25 MG Oral Tablet (Jardiance)Indicat ions:Type 2 diabetes mellitus with stage 3a chronic kidney disease, without long-term current use of insulin ([facility]) Take 1 Tablet by mouth in the [...] as of this encounter (statuses as of 03/26/2024) Active Problems Problem Noted Date Diagnosed Date [...] as of this encounter (statuses as of 03/26/2024) Resolved Problems Problem Noted Date Diagnosed Date [...] as of this encounter (statuses as of 03/26/2024) Immunizations Name Administration Dates Next Due COVID-19 mRNA, LNP-s, No Pre serve, 2-Dose Series (Moderna) 08/02/2020,07/05/2020 COVID-19, MRNA-LNP, PF, 30 M CG/0.3 mL, 12 YRS AND ABOVE, IM ([facility] 03/21/2023 COVID-19, mRNA, LNP-s, PF, B ooster, [...] on file documented as of this encounter Miscellaneous Notes * Telephone Encounter - Art Cavazos DO - 03/26/2024 8:10 AM EDT Noted * Telephone Encounter - Aria Lawler OSA - 03/25/2024 2:38 PM EDT Contacted the patient to schedule HV for a food box, he stated he did not need food, he has food and wouldnt even admit he was at the pcp office and had snacks, he stated that his brother is here visiting a family member in the hospital, he asked if that corollates with anything like that? I explained no, the referral states you were at the PCP office, stated you had no food and they gave you snacks, he got very quiet and stated well my name is Mg and my brother is Vitor, he thinks this yrn mix up, reached out to CM who placed the referral and PCP documented in this encounter Plan of Treatment Upcoming Encounters Date Type Department Care Team (Late st Contact Info) Description 03/31/2024 2:00 PM EST Nutrition Services Nutrition Services [address] [place] [address] [phone] Lisa Ma RDN [address] [place] [address] 03/31/2024 3:20 PM EST Office Visit Family Practice [address] [place] [address], [place] [phone] Art Cavazos DO 293 [facility], [place] [phone] 05/05/2024 8:30 AM EST Therapy Neuropsychology [facility] [address] [place], [place] [phone] Enrique Kay, PhD 200 [place], [place] [phone] 10/15/2024 2:00 PM EDT Nurse Only Family Practice 65 [facility] 293 [place] [phone] Sonali Echeverria, RITCHIE [address] [place] [phone] 11/01/2024 2:20 PM EDT Office Visit Nephrology, [facility] 200 [facility], [place] [phone] Baldo Mackey MD [address] [place] [address] 12/03/2024 2:00 PM EDT Office Visit Rheumatology [facility] 2520 [facility] [place] [address] Sarah Stroud CRNP [address] [place] [address] Scheduled Procedures Name Priority Associated Diagnoses Date/Ti me ESOPHAGOGASTRODUODENOSCOPY ( EGD), FLEXIBLE, TRANSORAL, DIAGNOSTIC Recall Anderson's esophagus with esophagitis Health Maintenance Due Date Last Done Comments Zoster Vaccines (1 of 2) 1990 Anderosn's Esophagus Surveilance 10/26/2023 10/25/2020, 10/25/2020, 04/09/2018 COVID-19 Vaccine ( season) 2024 03/21/2023, 05/31/2022, 11/09/2021, Additional history exists Influenza Vaccine (FLU shot) (#1) 2024 03/21/2023, 02/04/2022, 03/27/2021, Additional history exists CKD PHOS USE SMARTSET 96067 03/21/202402/24, 12/20/2021, 10/03/2021, Additional history exists Diabetic Foot Exam 03/21/2024 03/21/2023, 1 , 10/16/2020, Additional history exists Diabetic Eye Exam 04/01/2024 04/01/2023, , 06/02/2018, Additional history exists GFR 04/24/2024 10/24/2023, 08/25, 08/11/2023, Additional history exists HbA1c 05/20/2024 11/19/2023, 06/27, 03/21/2023, Additional history exists CKD HGB USE SMARTSET 88576 09/18/202409/18, 09/19/2023, 08/11/2023, Additional history exists Adult Wellness Visit 10/09/2024 10/10/2023, 09/20/2022, 06/06/2021 Albumin/Creatinine Ratio 10/09/2024 024, 11/18/2022, 11/20/2021, Additional history exists Depression Screening 10/09/2024 10/10/2023, 10/10/19 DTap/Tdap Vaccines (2 - Td or Tdap) [...] filedocumented as of this encounter Care Teams [employer] Maintenance Worker Relationship Specialty Start Date End Date Art Cavazos DO [address] [place] [facility] [place] [address] PCP - General Internal Medicine 11/19/23 documented as of this encounter
--- OUTSIDE RECORDS SUMMARY | 2024-05-09 10:42 | External Medical Summary ---
Author Name Unknown Address Unknown Organization K01:[facility] [address] [place] [id number] Laboratory Report Ordering Provider Test Date Status LUCINDA DELGADO 03/31/2024 15:56:28 Final Observation Date Value Abnormality Reference (Units ) Status Phosphate 03/31/2024 15:56:28 3.8 2.5-4.8 (m g/dL) Final Performing Location [facility] [address] [place] [id number]
--- OUTSIDE RECORDS SUMMARY | 2024-05-09 10:43 | External Medical Summary | Summary of Care ---
Author Name Unknown Organization [facility] Address [address] [place] [address] Phone [phone] Care Team Providers Care Candy Bar Attendant Name Role Phone Art Cavazos DO Primary Care Provider [phone] Reason for Referral * Social Care (Within 24 hrs (call dept; emergent)) - Authorized Specialty Diagnoses / Procedures Referred By Kulwinder t Referred To Contact Shoe Patternmaker Diagnoses Food insecurity Art Cavazos DO [address] [place] [address] Referral ID Status Reason Start Date Expiration Date Visits Requested Visits Authorized [id number] Authorized Specialty Services Required 4 [phone] Question Answer Referral Priority Within 24 hrs (call dept; emergent) Where should this appointment be scheduled? [facility] Role [facility] Wood Form Builder Community [facility] Wood Form Builder Referral Reason Home Visit Comments Is patient being transitioned from [facility] to Complex Case Management? No REPORT FROM PCP OFFICE WAS THAT PATIENT HAD NO FOOD IN THE HOME AND HE WAS FED SNACKS AT THE OFFICE ON 03/19/24- NEEDS URGENT FOLLOW UP Reason for Visit * Reason Onset Date Comments Advice 03/24/2024 food Encounter Details Date Type Department Care Team ([facility] Contact Info) Description 03/24/2024 Telephone Family Practice 65 [facility] [place] [address] [place] [address] Art Cavazos DO [address] [place] [address] Advice (food) Allergies Active Allergy Reactions Criticality Noted Date Comments Amoxicillin Fever,Rash Medium 12/29/2013 documented as of this encounter (statuses as of 03/25/2024) Medications Medication Sig Dispensed Refills Start Date End Date Status [facility] Sponsorship[facility]CH ULTRA SYSTEM W/DEVICE KITIndications:DM type 2, goal [...] every afternoon. 60 Tab 11 07/02/2020 Active fluIT BiosystemsTouch UltraSoft LancetsIndications :Type 2 diabetes mellitus with hemoglobin A1c goal of less than 7.0% ([facility]) Use to test sugars once daily 100 Each 3 08/29/2021 Active Vitamin D-400 10 MCG (400 UNIT) Oral Tablet (cholecalciferol (VIT D3))Indications:Vi tamin D deficiency Take 2 Tablets by mouth daily. 120 Tablet 3 07/08/2022 Active [employer]uch Ultra In Vitro Strip (Glucose Blood)Indications: Type 2 diabetes mellitus with stage 3a chronic kidney disease, without long-term current use of insulin ([facility]) TEST 1 TO 2 TIMES DAILY. 200 Strip 3 04/27/2023 06/05/2024 Active Latanoprost 0.005 % Ophthalmic Solution (Xalatan) Instill 1 Drop into both eyes once daily every evening as directed 10 mL 3 04/30/2023 Active Empagliflozin 25 MG Oral Tablet (Jardiance)Indicat ions:Type 2 diabetes mellitus with stage 3a chronic kidney disease, without long-term current use of insulin ([facility]) Take 1 Tablet by mouth in [...] as of this encounter (statuses as of 03/25/2024) Active Problems Problem Noted Date Diagnosed Date [...] as of this encounter (statuses as of 03/25/2024) Resolved Problems Problem Noted Date Diagnosed Date [...] neurological disease 02/19/2010 09/01/2013 Diabetic polyneuropathy 02/19/2010 04/0 01/2014 Overview: ICD-10 update of inactive term Type 2 DM with CKD stage 3 and hypertension 12/22/2009 10/16/2020 Overview: ICD-10 update of inactive term NONE 12/18/2009 12/22/2009 documented as of this encounter (statuses as of 03/25/2024) Immunizations Name Administration Dates Next Due COVID-19 mRNA, LNP-s, No Pre serve, 2-Dose Series (Moderna) 08/02/2020,07/05/2020 COVID-19, MRNA-LNP, 23-24, P F, 30 MCG/0.3 mL, 12 YRS AND ABOVE, IM ([employer]) 03/21/2023 COVID-19, mRNA, LNP-s, PF, B ooster, [...] encounter Miscellaneous Notes * Telephone Encounter - Katharine Stone LPN - 03/25/2024 9:19 AM EDT uRGENT Pop Health referral placed for Community Health Worker referral for home visit * Telephone Encounter - Ashtyn Morgan OSA - 03/24/2024 3:56 PM EDT Mg came in today and told me he had no food in the house Plowed through the snacks we have here Not sure if he really has no food or is forgetting to eat... Can someone go out and check to see if he really has any/ documented in this encounter Plan of Treatment Upcoming Encounters Date Type Department Care Team (Late st Contact Info) Description 03/31/2024 2:00 PM EST Nutrition Services Nutrition Services 65 [facility] 293 [place] [address] Lisa Ma RDN 293 [facility] [place] [address] 03/31/2024 3:20 PM EST Office Visit Family Practice 65 [facility] 293 [place] [address] Art Cavazos DO 293 [facility] [place] [place] [address] 05/05/2024 8:30 AM EST Therapy Neuropsychology [facility] 200 [place] [address] Enrique Kay, PhD 200 [facility] [place] [place] [address] 10/15/2024 2:00 PM EDT Nurse Only Family Practice 65 [facility] [place] [address] [place] [facility] [place] [address] Sonali Echeverria, RITCHIE 293 [facility] [place] [place] [address] 11/01/2024 2:20 PM EDT Office Visit Nephrology, [facility] [place] 200 [facility] [place] [address] Baldo Mackey MD 200 [facility] [place], [place] [address] 12/03/2024 2:00 PM EDT Office Visit Rheumatology [place] [phone] [place], [place] [address] Sarah Stroud CRNP [address] [place], [place] [address] Scheduled Procedures Name Priority Associated Diagnoses Date/Ti me ESOPHAGOGASTRODUODENOSCOPY ( EGD), FLEXIBLE, TRANSORAL, DIAGNOSTIC Recall Anderson's esophagus with esophagitis Scheduled Referrals Name Type Priority Associated Diagnoses Orde r Schedule [facility] REFERRAL OP Referral Within 24 hrs (call dept; emergent) Food insecurity Ordered: 03/25/2024 Health Maintenance Due Date Last Done Comments Zoster Vaccines (1 of 2) 1990 Anderson's Esophagus Surveilance 10/26/2023 10/25/2020, 10/25/2020, 04/09/2018 COVID-19 Vaccine ( season) 2024 03/21/2023, 05/31/2022, 11/09/2021, Additional history exists Influenza Vaccine (FLU shot) (#1) 2024 03/21/2023, 02/04/2022, 03/27/2021, Additional history exists CKD PHOS USE SMARTSET 91063 03/21/202402/24, 12/20/2021, 10/03/2021, Additional history exists Diabetic Foot Exam 03/21/2024 03/21/2023, 1 , 10/16/2020, Additional history exists Diabetic Eye Exam 04/01/2024 04/01/2023, , 06/02/2018, Additional history exists GFR 04/24/2024 10/24/2023, 08/25, 08/11/2023, Additional history exists HbA1c 05/20/2024 11/19/2023, 06/27, 03/21/2023, Additional history exists CKD HGB USE SMARTSET 15772 09/18/202409/18, 09/19/2023, 08/11/2023, Additional history exists Adult [...] as of this encounter Visit Diagnoses Diagnosis Food insecurity- Primary documented in this encounter Care Teams Candy Bar Attendant Relationship Specialty Start Date End Date Art Cavazos DO [address] [place] [facility] [address] PCP - General Internal Medicine 11/19/23 documented as of this encounter
--- OUTSIDE RECORDS SUMMARY | 2024-05-09 10:43 | External Medical Summary | Summary of Care ---
Author Name Unknown Organization [facility] Address [address] [place] [address] Phone [phone] Care Team Providers Care Superintendent Name Role Phone Art Cavazos DO Primary Care Provider [phone] Encounter Details Date Type Department Care Team (Late st Contact Info) Description 03/03/2024 Orders Only PATIENT PORTAL DO NOT DELETE THIS DEPT USED BY SHIRA [place] [address] Allergies Active Allergy Reactions Criticality Noted Date Comments Amoxicillin Fever,Rash Medium 12/29/2013 documented as of this encounter (statuses as of 03/03/2024) Medications Medication Sig Dispensed Refills Start Date End Date Status ONETOUCH ULTRA SYSTEM W/DEVICE KITIndications:DM type 2, goal [...] long-term current use of insulin ([facility]) TEST 1 TO 2 TIMES DAILY. 200 Strip 3 04/27/2023 06/05/2024 Active Latanoprost 0.005 % Ophthalmic Solution (Xalatan) Instill 1 Drop into both eyes once daily every evening as directed 10 mL 3 04/30/2023 Active Empagliflozin 25 MG Oral Tablet (Jardiance)Indicat ions:Type 2 diabetes mellitus with stage 3a chronic kidney disease, without long-term current use of insulin ([facility]) Take 1 Tablet by mouth in [...] MORNING. 100 Capsule 3 11/24/2023 11/23/2024 Active documented as of this encounter (statuses as of 03/03/2024) Active Problems Problem Noted Date Diagnosed Date [...] as of this encounter (statuses as of 03/03/2024) Resolved Problems Problem Noted Date Diagnosed Date [...] as of this encounter (statuses as of 03/03/2024) Immunizations Name Administration Dates Next Due COVID-19 mRNA, LNP-s, No Pre serve, 2-Dose Series (Moderna) 08/02/2020,07/05/2020 COVID-19, MRNA-LNP, 23-24, P F, 30 MCG/0.3 mL, 12 YRS AND ABOVE, IM ([facility]) 03/21/2023 COVID-19, mRNA, LNP-s, PF, B ooster, [...] y our heating, water, or electric bill? No 03/21/2023 Is your family able to pay t he heat, water, or electric bill? (Household - for ages 0-17 years) Not on file 03/21/2023 Does your family have access to good internet? (Household - for ages 0-17 years) Not on file 03/21/2023 Employment Status Answer Date Recorded Are you unemployed or without regular income? No 03/21/2023 Does the household have a re lar source of income? (Household - for ages 0-17 years) Not on file 03/21/2023 Social Connections Answer Date Recorded How often do you feel lonely or isolated from th ose around you? Never 03/21/2023 Financial Resource Strain Answer Date R ecorded [...] on file documented as of this encounter Plan of Treatment Upcoming Encounters Date Type Department Care Team (Late st Contact Info) Description 03/19/2024 1:45 PM EDT Office Visit Dermatology [facility] 200 [facility] [place] [id number] Nicolas Moody MD 200 [place] [address] 03/31/2024 2:00 PM EST Nutrition Services Nutrition Services 65 [facility] 293 [place] [address] Lisa Ma RDN [address] [facility] [address] 03/31/2024 3:20 PM EST Office Visit Family Practice 65 [facility] 293 [facility] [place] [address] Art Cavazos DO 293 [place] [address] 05/05/2024 8:30 AM EST Therapy Neuropsychology [facility] 200 [place] [address] Enrique Kay, PhD 200 [place] [address] 10/15/2024 2:00 PM EDT Nurse Only Family Practice [address] [facility] [place] 293 [place] [phone] Sonali Echeverria, RITCHIE 293 [place] [phone] 11/01/2024 2:20 PM EDT Office Visit Nephrology, [facility] 200 [facility] [place], [place] [address] Baldo Mackey MD 200 [place] [address] 12/03/2024 2:00 PM EDT Office Visit Rheumatology [facility] [address] [place], [place] [address] Sarah Stroud CRNP [address] [place], [place] [id number] Scheduled Procedures Name Priority Associated Diagnoses Date/Ti [...] Additional history exists CKD PHOS USE SMARTSET 35339 03/21/202402/24, 12/20/2021, 10/03/2021, Additional history exists Diabetic Foot Exam 03/21/2024 03/21/2023, 1 , 10/16/2020, Additional history exists Diabetic Eye Exam 04/01/2024 04/01/2023, , 06/02/2018, Additional history exists GFR 04/24/2024 10/24/2023, 08/25, 08/11/2023, Additional history exists HbA1c 05/20/2024 11/19/2023, 06/27, 03/21/2023, Additional history exists CKD HGB USE SMARTSET 41578 09/18/202409/18, 09/19/2023, 08/11/2023, Additional history exists Adult [...] filedocumented as of this encounter Care Teams Superintendent Relationship Specialty Start Date End Date Art Cavazos DO [address] [place] [address] PCP - General Internal Medicine 11/19/23 documented as of this encounter
--- OUTSIDE RECORDS SUMMARY | 2024-05-09 10:43 | External Medical Summary | Summary of Care ---
Author Name Unknown Organization [facility] Address [address] [place] [address] Phone [phone] Care Team Providers Care Academic Counselor Name Role Phone Art Cavazos DO Primary Care Provider [phone] Encounter Details Date Type Department Care Team (Late st Contact Info) Description 03/02/2024 Documentation HEALTH & WELLNESS Mayra Colon, Health Time Clerk Allergies Active Allergy Reactions Criticality Noted Date Comments Amoxicillin Fever,Rash Medium 12/29/2013 documented as of this encounter (statuses as of 03/02/2024) Medications Medication Sig Dispensed Refills Start Date End Date Status Hive guard unlimitedTOUCH ULTRA SYSTEM W/DEVICE KITIndications:DM type 2, goal [...] as of this encounter (statuses as of 03/02/2024) Active Problems Problem Noted Date Diagnosed Date [...] as of this encounter (statuses as of 03/02/2024) Resolved Problems Problem Noted Date Diagnosed Date [...] as of this encounter (statuses as of 03/02/2024) Immunizations Name Administration Dates Next Due COVID-19 mRNA, LNP-s, No Pre serve, 2-Dose Series (Moderna) 08/02/2020,07/05/2020 COVID-19, MRNA-LNP, 23-24, P F, 30 MCG/0.3 mL, 12 YRS AND ABOVE, IM ([employer]) 03/21/2023 COVID-19, mRNA, LNP-s, PF, B ooster, [...] as of this encounter Progress Notes * Mayra Colon Health Time Clerk - 03/02/2024 3:28 PM EDT SESSION TYPE: Group exercise session: Exercise Subtype or Modality: Resistance Training Patient completed a group exercise session which consisted of resistance training. Body weight and dumbbells were used for the exercises. He tolerated exercise well and had no complaints. documented in this encounter Plan of Treatment Upcoming Encounters Date Type Department Care Team (Late st Contact Info) Description 03/19/2024 1:45 PM EDT Office Visit Dermatology [facility] 200 [facility] [address] [place], [place] [address] Nicolas Moody MD [address] [place] [address] 03/31/2024 2:00 PM EST Nutrition Services Nutrition Services [address] [place] [address] 293 [place] [address] Lisa Ma RDN 106 [facility] [place] [address] 03/31/2024 3:20 PM EST Office Visit Family [facility] 65 [facility] 293 [place] [phone] Art Cavazos DO 293 [facility] [place] [address] 05/05/2024 8:30 AM EST Therapy Neuropsychology [facility] 200 [facility] [place] [address] Enrique Kay, PhD 200 [facility] [place] [place] [address] 10/15/2024 2:00 PM EDT Nurse Only [facility] 65 [facility] 293 [place] [phone] Sonali Echeverria, RITCHIE 293 [facility] [place] [address] 11/01/2024 2:20 PM EDT Office Visit Nephrology, [facility] 200 [facility] [place] [address] Baldo Mackey MD 200 [facility] [place] [address] 12/03/2024 2:00 PM EDT Office Visit Rheumatology [address] [place] [address] Sarah Stroud CRNP [facility] [place] [address] Scheduled Procedures Name Priority Associated Diagnoses Date/Ti [...] Additional history exists CKD PHOS USE SMARTSET 07240 03/21/202402/24, 12/20/2021, 10/03/2021, Additional history exists Diabetic Foot Exam 03/21/2024 03/21/2023, 1 , 10/16/2020, Additional history exists Diabetic Eye Exam 04/01/2024 04/01/2023, , 06/02/2018, Additional history exists GFR 04/24/2024 10/24/2023, 08/25, 08/11/2023, Additional history exists HbA1c 05/20/2024 11/19/2023, 06/27, 03/21/2023, Additional history exists CKD HGB USE SMARTSET 68316 09/18/202409/18, 09/19/2023, 08/11/2023, Additional history exists Adult [...] filedocumented as of this encounter Care Teams Academic Counselor Relationship Specialty Start Date End Date Art Cavazos DO [address] [place] [address] PCP - General Internal Medicine 11/19/23 documented as of this encounter
--- OUTSIDE RECORDS SUMMARY | 2024-05-09 10:43 | External Medical Summary | Summary of Care ---
Author Name Unknown Organization [facility] Address [address] [place] [address] Phone [phone] Care Team Providers Care Bus Dispatcher Interstate Name Role Phone Danny Cavazos DO Primary Care Provider [phone] Reason for Visit * Reason Comments Skin Check 2 yr routine skin ex am. Denies concerns. Hx: Ak's, sk's Encounter Details Date Type Department Care Team (Late st Contact Info) Description 03/19/2024 1:45 PM EDT Office Visit Dermatology [facility] 200 [facility] [place] [address] Nicolas Moody MD 200 [facility] [place] [address] Seborrheic dermatitis of scalp*; Actinic skin damage; Actinic keratosis Allergies Active Allergy Reactions Criticality Noted Date Comments Amoxicillin Fever,Rash Medium 12/29/2013 documented as of this encounter (statuses as of 2024) Medications Medication Sig Dispensed Refills Start Date End Date Status Seanodes SYSTEM W/DEVICE KITIndications:DM type 2, goal A1c [...] hemoglobin A1c goal of less than 7.0% ([facility]) Use to test sugars once daily 100 Each 3 08/29/2021 Active Vitamin D-400 10 MCG (400 UNIT) Oral Tablet (cholecalciferol (VIT D3))Indications:Vi tamin D deficiency Take 2 Tablets by mouth daily. 120 Tablet 3 07/08/2022 Active OneTouch Ultra In Vitro Strip (Glucose Blood)Indications: Type 2 diabetes mellitus with stage 3a chronic kidney disease, without long-term current use of insulin ([facility]) TEST 1 TO 2 TIMES DAILY. 200 Strip 3 04/27/2023 06/05/2024 Active Latanoprost 0.005 % Ophthalmic Solution (Xalatan) Instill 1 Drop into both eyes once daily every evening as directed 10 mL 3 04/30/2023 Active Empagliflozin 25 MG Oral Tablet (Jardiance)Indicat ions:Type 2 diabetes mellitus with stage 3a chronic kidney disease, without long-term current use of insulin ([facility]) Take 1 Tablet by mouth in the [...] as of this encounter (statuses as of 2024) Active Problems Problem Noted Date Diagnosed Date [...] as of this encounter (statuses as of 2024) Resolved Problems Problem Noted Date Diagnosed Date [...] as of this encounter (statuses as of 2024) Immunizations Name Administration Dates Next Due COVID-19 mRNA, LNP-s, No Pre serve, 2-Dose Series (Moderna) 08/02/2020,07/05/2020 COVID-19, MRNA-LNP, 23-24, P F, 30 MCG/0.3 mL, 12 YRS AND ABOVE, IM ([facility]) 03/21/2023 COVID-19, mRNA, LNP-s, PF, B [...] No 03/21/2023 Does the household have a presbyterian española hospitallar source of income? (Household - for ages [...] as of this encounter Progress Notes * Nicolas Moody MD - 03/19/2024 1:45 PM EDT SUBJECTIVE: Chief Complaint: Chief Complaint Patient presents with Skin Check 2 yr routine skin exam. Denies concerns. Hx: Ak's, sk's HPI: gM Little Jr. is a 83 year old male seen for a full skin check. Waist up exam, pt request No spots of concern DERMATOLOGIC HISTORY: No prior history of skin cancer Hx of AK REVIEW OF SYSTEMS: CONSTITUTIONAL: negative SKIN: No new or changing moles or rashes other than those noted in HPI HEME/LYMPH: No new or enlarging lumps or bumps OBJECTIVE: GEN: Healthy, alert, no distress, appears oriented, pleasant, and cooperative SKIN: Detailed exam of hair, face, trunk, arms, and legs Right ear superior helix, right pentecostal x3, left nasal sidewall x1, left pentecostal x3, vertex scalp x2 - 10 gritty erythematous macules/papules Scattered in the scalp and the face are thin pink plaques with non-adherent bran-like scale Scattered on face, chest, back - diffuse mottled hypopigmented and hyperpigmented macules without significant irregularity. Associated telangiectasias ASSESSMENT/PLAN: Actinic keratosis -The diagnosis and malignant potential of the lesion was explained. Treatment options were reviewedincluding cryotherapy, topical medications, and observation. All questions were addressed. Procedure - Cryotherapy (Premalignant Destruction) -The patient would like to proceed with cryosurgery;Cryosurgery explained to the patient, consent obtained, patient, site and procedure verified, and then cryotherapy was performed with Liquid Nitrogen via cryo spray unit to 10 lesions. Location noted in physical exam. Post op course explained. -Discussed that if any of these lesions fail to completely resolve after treatment patient should call me for re-evaluation Seborrheic dermatitis Discussed nature of condition and expected course, treatment options Orders Placed This Encounter Medications Ketoconazole 2 % External Shampoo (Nizoral) Sig: Lather into scalp in the shower, leave in for 3 minutes, then rinse. Do this three times per week Dispense: 120 mL Refill: 11 Chronic Actinic Damage - Discussed that skin changes are due to chronic sun exposure. - Daily sun protection recommended including physical (i.e. clothing) and chemical blockers. Broad spectrum sunscreens with at least SPF 30 for UVA and UVA protection were recommended. Nicolas Moody MD REF: DANNY CAVAZOS [address] [place] [address] (office) [phone] (fax) PCP: DANNY CAVAZOS [address] [place] [address] [phone] documented in this encounter Nursing Notes * Kasia Urban LPN - 03/19/2024 1:21 PM EDT Patient identified by name and date. Chief Complaint Patient presents with Skin Check 2 yr routine skin exam. Denies concerns. Hx: Ak's, sk's documented in this encounter Plan of Treatment Upcoming Encounters Date Type Department Care Team (Late st Contact Info) Description 03/31/2024 2:00 PM EST Nutrition Services Nutrition Services [address] [address] Lisa Ma RDN [address] [place] [address] 03/31/2024 3:20 PM EST Office Visit Family Practice [address] [phone] Danny Cavazos, [address] [place] [address] 05/05/2024 8:30 AM EST Therapy Neuropsychology [facility] 200 [facility] [place], [place] [address] Enrique Kay, PhD 200 [facility] [place] [address] 10/15/2024 2:00 PM EDT Nurse Only Family Practice [address] [place] [address] 293 [place], [place] [phone] Sonali Echeverria, RITCHIE 293 [facility] [place] [phone] 11/01/2024 2:20 PM EDT Office Visit Nephrology, [facility] 200 [facility] [place], [place] [address] Baldo Mackey MD 200 [facility] [place], [place] [address] 12/03/2024 2:00 PM EDT Office Visit Rheumatology [place] [address] [facility] [place], [place] [address] Sarah Stroud CRNP [address] [facility] [place], [place] [address] Scheduled Procedures Name Priority Associated Diagnoses Date/Ti [...] Additional history exists CKD PHOS USE SMARTSET 91008 03/21/202402/24, 12/20/2021, 10/03/2021, Additional history exists Diabetic Foot Exam 03/21/2024 03/21/2023, 1 , 10/16/2020, Additional history exists Diabetic Eye Exam 04/01/2024 04/01/2023, , 06/02/2018, Additional history exists GFR 04/24/2024 10/24/2023, 08/25, 08/11/2023, Additional history exists HbA1c 05/20/2024 11/19/2023, 06/27, 03/21/2023, Additional history exists CKD HGB USE SMARTSET 80632 09/18/202409/18, 09/19/2023, 08/11/2023, Additional history exists Adult [...] as of this encounter Visit Diagnoses Diagnosis Seborrheic dermatitis of scalp- Primary Other seborrheic dermatitis Actinic skin damage Other dermatitis due to solar radiation Actinic keratosis documented in this encounter Care Teams Bus Dispatcher Interstate Relationship Specialty Start Date End Date Danny Cavazos DO [address] [place], [place] [id number] PCP - General Internal Medicine 11/19/23 documented as of this encounter
--- OUTSIDE RECORDS SUMMARY | 2024-05-09 10:43 | External Medical Summary | Summary of Care ---
Author Name Unknown Organization [facility] Address [address] [place] [address] Phone [phone] Care Team Providers Care Garde Manager Name Role Phone Art Cavazos DO Primary Care Provider [phone] Encounter Details Date Type Department Care Team (Late st Contact Info) Description 03/01/2024 Documentation HEALTH & WELLNESS Mayra Colon, Health Shoe Repairman Allergies Active Allergy Reactions Criticality Noted Date Comments Amoxicillin Fever,Rash Medium 12/29/2013 documented as of this encounter (statuses as of 03/01/2024) Medications Medication Sig Dispensed Refills Start Date End Date Status SeeSaw NetworksTOUCH ULTRA SYSTEM W/DEVICE KITIndications:DM type 2, goal [...] as of this encounter (statuses as of 03/01/2024) Active Problems Problem Noted Date Diagnosed Date [...] as of this encounter (statuses as of 03/01/2024) Resolved Problems Problem Noted Date Diagnosed Date [...] as of this encounter (statuses as of 03/01/2024) Immunizations Name Administration Dates Next Due COVID-19 mRNA, LNP-s, No Pre serve, 2-Dose Series (Moderna) 08/02/2020,07/05/2020 COVID-19, MRNA-LNP, 23-24, P F, 30 MCG/0.3 mL, 12 YRS AND ABOVE, IM ([facility]) 03/21/2023 COVID-19, mRNA, LNP-s, PF, B [...] encounter Progress Notes * Mayra Colon Health Shoe Repairman - 03/01/2024 4:01 PM EDT SESSION TYPE: Group exercise session: Exercise Subtype or Modality: Multi Exercise Patient completed a group exercise which consisted of cardiovascular and resistance training. Dumbbells, resistance bands and body weight were used for the exercises. He tolerated exercise well and had no complaints. * Mayra Colon Health Shoe Repairman - 03/01/2024 3:55 PM EDT SESSION TYPE: Group exercise session: Exercise Subtype or Modality: Flexibility Training Patient completed a group exercise session which consisted of flexibility training. All exercise was focused on improving flexibility and mobility of upper and lower body. He tolerated exercise well and had no complaints. documented in this encounter Plan of Treatment Upcoming Encounters Date Type Department Care Team (Late st Contact Info) Description 03/19/2024 1:45 PM EDT Office Visit Dermatology [facility] [place] [address] [place], [place] [address] Nicolas Moody MD [address] [place] [address] 03/31/2024 2:00 PM EST Nutrition Services Nutrition Services [address] [place] [address] 293 [place] [address] Lisa Ma RDN [address] [place] [address] 03/31/2024 3:20 PM EST Office Visit Family Practice [address] [place] [address] 293 [place] [phone] Art Cavazos DO 293 [place] [address] 05/05/2024 8:30 AM EST Therapy Neuropsychology [facility] [address] [place], [place] [phone] Enrique Kay, PhD 200 [facility] [address] [place], [place] [phone] 10/15/2024 2:00 PM EDT Nurse Only Family Practice [address] [place] [address] 293 [place] [phone] Sonali Echeverria, RITCHIE 293 [facility] [address] 11/01/2024 2:20 PM EDT Office Visit Nephrology, [facility] [address] [place], [place] [phone] Baldo Mackey MD [address] [place], [place] [phone] 12/03/2024 2:00 PM EDT Office Visit Rheumatology [place] [address] [employer] [place], [place] [phone] Sarah Stroud CRNP [facility] [employer] [facility] [place], [place] [phone] Scheduled Procedures Name Priority Associated Diagnoses Date/Ti [...] Additional history exists CKD PHOS USE SMARTSET 71608 03/21/202402/24, 12/20/2021, 10/03/2021, Additional history exists Diabetic Foot Exam 03/21/2024 03/21/2023, 1 , 10/16/2020, Additional history exists Diabetic Eye Exam 04/01/2024 04/01/2023, , 06/02/2018, Additional history exists GFR 04/24/2024 10/24/2023, 08/25, 08/11/2023, Additional history exists HbA1c 05/20/2024 11/19/2023, 06/27, 03/21/2023, Additional history exists CKD HGB USE SMARTSET 01220 09/18/202409/18, 09/19/2023, 08/11/2023, Additional history exists Adult [...] filedocumented as of this encounter Care Teams Garde Manager Relationship Specialty Start Date End Date Art Cavazos DO [address] [place] [address] PCP - General Internal Medicine 11/19/23 documented as of this encounter
--- OUTSIDE RECORDS SUMMARY | 2024-05-09 10:43 | External Medical Summary | Summary of Care ---
Author Name Unknown Organization [facility] Address [address] [place] [address] Phone [phone] Care Team Providers Care Flight Engineer Helicopter Name Role Phone Art Cavazos DO Primary Care Provider [phone] Encounter Details Date Type Department Care Team (Late st Contact Info) Description 02/26/2024 Documentation HEALTH & WELLNESS Mayra Colon, Health Liner Worker Allergies Active Allergy Reactions Criticality Noted Date Comments Amoxicillin Fever,Rash Medium 12/29/2013 documented as of this encounter (statuses as of 02/26/2024) Medications Medication Sig Dispensed Refills Start Date End Date Status Sport NginTOUCH ULTRA SYSTEM W/DEVICE KITIndications:DM type 2, goal [...] as of this encounter (statuses as of 02/26/2024) Active Problems Problem Noted Date Diagnosed Date [...] as of this encounter (statuses as of 02/26/2024) Resolved Problems Problem Noted Date Diagnosed Date [...] as of this encounter (statuses as of 02/26/2024) Immunizations Name Administration Dates Next Due COVID-19 mRNA, LNP-s, No Pre serve, 2-Dose Series (Moderna) 08/02/2020,07/05/2020 COVID-19, MRNA-LNP, 23-24, P F, 30 MCG/0.3 mL, 12 YRS AND ABOVE, IM ([facility]) 03/21/2023 COVID-19, mRNA, LNP-s, PF, B [...] encounter Progress Notes * Mayra Colon Health Liner Worker - 02/26/2024 3:36 PM EDT SESSION TYPE: Group exercise session: Exercise Subtype or Modality: Cardiovascular Training Patient completed a group exercise session which consisted of cardiovascular training. He walked for 45 minutes. documented in this encounter Plan of Treatment Upcoming Encounters Date Type Department Care Team (Late st Contact Info) Description 03/01/2024 8:30 AM EDT Office Visit Rheumatology [facility] 34[address] [facility] [place], [place] [address] Sarah Stroud CRNP [address] [place] [address] 03/19/2024 1:45 PM EDT Office Visit Dermatology [facility] [place] 200 [facility] [place] [address] Nicolas Moody MD 200 [facility] [place] [address] 03/31/2024 2:00 PM EST Nutrition Services Nutrition Services 65 [facility] 293 [place] [address] Lisa Ma RDN [address] [facility] [place] [address] 03/31/2024 3:20 PM EST Office Visit Family Practice [address] [place] [address] 293 [place] [phone] Art Cavazos, [address] [place] [address] 05/05/2024 8:30 AM EST Therapy Neuropsychology [facility] 200 [facility] [place] [address] Enrique Kay, PhD 200 [facility] [place] [address] 10/15/2024 2:00 PM EDT Nurse Only Family Practice [address] [place] [address], [place] [phone] Sonali Echeverria, RITCHIE [address] [place] [phone] 11/01/2024 2:20 PM EDT Office Visit Nephrology, [facility] 200 [facility] [place] [address] Baldo Mackey MD 200 [facility] [place] [address] Scheduled Procedures Name Priority Associated Diagnoses Date/Ti [...] Additional history exists CKD PHOS USE SMARTSET 04846 03/21/202402/24, 12/20/2021, 10/03/2021, Additional history exists Diabetic Foot Exam 03/21/2024 03/21/2023, 1 , 10/16/2020, Additional history exists Diabetic Eye Exam 04/01/2024 04/01/2023, , 06/02/2018, Additional history exists GFR 04/24/2024 10/24/2023, 08/25, 08/11/2023, Additional history exists HbA1c 05/20/2024 11/19/2023, 06/27, 03/21/2023, Additional history exists CKD HGB USE SMARTSET 19588 09/18/202409/18, 09/19/2023, 08/11/2023, Additional history exists Adult [...] filedocumented as of this encounter Care Teams Flight Engineer Helicopter Relationship Specialty Start Date End Date Art Cavazos DO [address] [facility] [place] [address] PCP - General Internal Medicine 11/19/23 documented as of this encounter
--- OUTSIDE RECORDS SUMMARY | 2024-05-09 10:43 | External Medical Summary | Summary of Care ---
Author Name Unknown Organization [facility] Address [address] [place] [address] Phone [phone] Care Team Providers Care Caponizer Name Role Phone Art Cavazos DO Primary Care Provider [phone] Encounter Details Date Type Department Care Team (Late st Contact Info) Description 03/04/2024 Documentation HEALTH & WELLNESS Mayra Colon, Health Employee Counselor Allergies Active Allergy Reactions Criticality Noted Date Comments Amoxicillin Fever,Rash Medium 12/29/2013 documented as of this encounter (statuses as of 03/04/2024) Medications Medication Sig Dispensed Refills Start Date End Date Status OceanTailerTOUCH ULTRA SYSTEM W/DEVICE KITIndications:DM type 2, goal [...] as of this encounter (statuses as of 03/04/2024) Active Problems Problem Noted Date Diagnosed Date [...] as of this encounter (statuses as of 03/04/2024) Resolved Problems Problem Noted Date Diagnosed Date [...] as of this encounter (statuses as of 03/04/2024) Immunizations Name Administration Dates Next Due COVID-19 mRNA, LNP-s, No Pre serve, 2-Dose Series (Moderna) 08/02/2020,07/05/2020 COVID-19, MRNA-LNP, 23-24, P F, 30 MCG/0.3 mL, 12 YRS AND ABOVE, IM ([facility]) 03/21/2023 COVID-19, mRNA, LNP-s, PF, B [...] encounter Progress Notes * Mayra Colon Health Employee Counselor - 03/04/2024 2:00 PM EDT SESSION TYPE: Group exercise session: Exercise Subtype or Modality: Cardiovascular Training Patient completed a group exercise session which consisted of cardiovascular training. He walked for 45 minutes. documented in this encounter Plan of Treatment Upcoming Encounters Date Type Department Care Team (Late st Contact Info) Description 03/19/2024 1:45 PM EDT Office Visit Dermatology [facility] [address] [place] [address] Nicolas Moody MD [address] [place], [place] [address] 03/31/2024 2:00 PM [facility] Nutrition Services Nutrition Services [address] [place] [address] 293 [facility] [place] [address] Lisa Ma RDN 106 [facility] [place] [address] 03/31/2024 3:20 PM EST Office Visit Family Practice 65 [facility] 293 [facility] [place] [phone] Art Cavazos DO 293 [place] [address] 05/05/2024 8:30 AM EST Therapy Neuropsychology [facility] 200 [facility] [place] [address] Enrique Kay, PhD 200 [facility] [place] [address] 10/15/2024 2:00 PM EDT Nurse Only Family Practice 65 [facility] 293 [facility] [phone] Sonali Echeverria, RITCHIE 293 [place] [phone] 11/01/2024 2:20 PM EDT Office Visit Nephrology, [facility] 200 [facility] [place] [address] Baldo Mackey MD 200 [facility] [place] [address] 12/03/2024 2:00 PM EDT Office Visit Rheumatology [place] [address] [facility] [place], [place] [address] Sarah Stroud CRNP [facility] [employer] [facility] [place], [place] [id number] Scheduled Procedures Name Priority Associated Diagnoses Date/Ti [...] Additional history exists CKD PHOS USE SMARTSET 06293 03/21/202402/24, 12/20/2021, 10/03/2021, Additional history exists Diabetic Foot Exam 03/21/2024 03/21/2023, 1 , 10/16/2020, Additional history exists Diabetic Eye Exam 04/01/2024 04/01/2023, , 06/02/2018, Additional history exists GFR 04/24/2024 10/24/2023, 08/25, 08/11/2023, Additional history exists HbA1c 05/20/2024 11/19/2023, 06/27, 03/21/2023, Additional history exists CKD HGB USE SMARTSET 37864 09/18/202409/18, 09/19/2023, 08/11/2023, Additional history exists Adult [...] filedocumented as of this encounter Care Teams Caponizer Relationship Specialty Start Date End Date Art Cavazos DO [address] [place] [address] PCP - General Internal Medicine 11/19/23 documented as of this encounter
--- OUTSIDE RECORDS SUMMARY | 2024-05-09 10:43 | External Medical Summary | Summary of Care ---
Author Name Unknown Organization [facility] Address [address] [place] [address] Phone [phone] Care Team Providers Care Spring Winder Name Role Phone Art Cavazos DO Primary Care Provider [phone] Reason for Visit * Reason Onset Date Comments Other 03/25/2024 Encounter Details Date Type Department Care Team (Late st Contact Info) Description 03/25/2024 Telephone Care Coordination and Integration [address] [place], [place] [phone] Aria Lawler OSA [address] [place], [place] [phone] Other Allergies Active Allergy Reactions Criticality Noted Date Comments Amoxicillin Fever,Rash Medium 12/29/2013 documented as of this encounter (statuses as of 03/25/2024) Medications Medication Sig Dispensed Refills Start Date End Date Status Pepscan SYSTEM W/DEVICE KITIndications:DM type 2, goal A1c [...] hemoglobin A1c goal of less than 7.0% ([facility]) Use to test sugars once daily 100 Each 3 08/29/2021 Active Vitamin D-400 10 MCG (400 UNIT) Oral Tablet (cholecalciferol (VIT D3))Indications:Vi tamin D deficiency Take 2 Tablets by mouth daily. 120 Tablet 3 07/08/2022 Active OneTouch Ultra In Vitro Strip (Glucose Blood)Indications: Type 2 diabetes mellitus with stage 3a chronic kidney disease, without long-term current use of insulin ([facility]) TEST 1 TO 2 TIMES DAILY. 200 Strip 3 04/27/2023 06/05/2024 Active Latanoprost 0.005 % Ophthalmic Solution (Xalatan) Instill 1 Drop into both eyes once daily every evening as directed 10 mL 3 04/30/2023 Active Empagliflozin 25 MG Oral Tablet (Jardiance)Indicat ions:Type 2 diabetes mellitus with stage 3a chronic kidney disease, without long-term current use of insulin ([facility]) Take 1 Tablet by mouth in the [...] CG/0.3 mL, 12 YRS AND ABOVE, IM ([facility] 03/21/2023 COVID-19, mRNA, LNP-s, PF, B [...] encounter Miscellaneous Notes * Telephone Encounter - Aria Lawler, STANISLAV - 03/25/2024 2:38 PM EDT Contacted the [...] 2:00 PM EST Nutrition Services Nutrition Services [address] [place] [address] 293 [place] [address] Lisa Ma RDN [address] [place] [address] 03/31/2024 3:20 PM EST Office Visit Family Practice [address] [place] [phone] Art Cavazos DO [address] [place] [address] 05/05/2024 8:30 AM EST Therapy Neuropsychology [facility] [address] [place] [phone] Enrique Kay, PhD 200 [facility] [place], [place] [phone] 10/15/2024 2:00 PM EDT Nurse Only Family Practice [address] [place] [address] 293 [place] [address] Sonali Echeverria, RITCHIE [address] [place] [phone] 11/01/2024 2:20 PM EDT Office Visit Nephrology, [facility] [address] [place] [phone] Baldo Mackey MD [address] [place] [address] 12/03/2024 2:00 PM EDT Office Visit Rheumatology [address] [place] [address] Sarah Stroud CRNP [address] [place] [address] Scheduled Procedures Name Priority Associated Diagnoses Date/Ti [...] Additional history exists CKD PHOS USE SMARTSET 96002 03/21/202402/24, 12/20/2021, 10/03/2021, Additional history exists Diabetic Foot Exam 03/21/2024 03/21/2023, 1 , 10/16/2020, Additional history exists Diabetic Eye Exam 04/01/2024 04/01/2023, , 06/02/2018, Additional history exists GFR 04/24/2024 10/24/2023, 08/25, 08/11/2023, Additional history exists HbA1c 05/20/2024 11/19/2023, 06/27, 03/21/2023, Additional history exists CKD HGB USE SMARTSET 83808 09/18/202409/18, 09/19/2023, 08/11/2023, Additional history exists Adult [...] filedocumented as of this encounter Care Teams Spring Winder Relationship Specialty Start Date End Date Art Cavazos DO [address] [place] [address] PCP - General Internal Medicine 11/19/23 documented as of this encounter
--- OUTSIDE RECORDS SUMMARY | 2024-05-09 10:43 | External Medical Summary | Summary of Care ---
Author Name Unknown Organization [facility] Address [address] [place] [address] Phone [phone] Care Team Providers Care Ornamental Iron Worker Name Role Phone Art Cavazos DO Primary Care Provider [phone] Encounter Details Date Type Department Care Team (Late st Contact Info) Description 03/11/2024 Documentation HEALTH & WELLNESS Mayra Colon, Health Shovel Engineer Allergies Active Allergy Reactions Criticality Noted Date Comments Amoxicillin Fever,Rash Medium 12/29/2013 documented as of this encounter (statuses as of 03/11/2024) Medications Medication Sig Dispensed Refills Start Date End Date Status FindProzTOUCH ULTRA SYSTEM W/DEVICE KITIndications:DM type 2, goal [...] as of this encounter (statuses as of 03/11/2024) Active Problems Problem Noted Date Diagnosed Date [...] as of this encounter (statuses as of 03/11/2024) Resolved Problems Problem Noted Date Diagnosed Date [...] as of this encounter (statuses as of 03/11/2024) Immunizations Name Administration Dates Next Due COVID-19 mRNA, LNP-s, No Pre serve, 2-Dose Series (Moderna) 08/02/2020,07/05/2020 COVID-19, MRNA-LNP, 23-24, P F, 30 MCG/0.3 mL, 12 YRS AND ABOVE, IM ([facility]) 03/21/2023 COVID-19, mRNA, LNP-s, PF, B [...] encounter Progress Notes * Mayra Colon Health Shovel Engineer - 03/11/2024 12:15 PM EDT Visit Type: Return Wellness Return Visit Type: Group exercise Walking for 45 minutes documented in this encounter Plan of Treatment Upcoming Encounters Date Type Department Care Team (Late st Contact Info) Description 03/19/2024 1:45 PM EDT Office Visit [facility] [address] [place] [address] Nicolas Moody MD [address] [place] [address] 03/31/2024 2:00 PM EST Nutrition Services Nutrition Services [facility] 293 [place] [address] Lisa Ma RDN 106 [facility] [place] [address] 03/31/2024 3:20 PM EST Office Visit Family Practice [facility] 293 [place] [address] Art Cavazos, 293 [place] [address] 05/05/2024 8:30 AM EST Therapy Neuropsychology [facility] 200 [facility] [place] [address] Enrique Kay, PhD 200 [facility] [place] [address] 10/15/2024 2:00 PM EDT Nurse Only Family Practice [address] [place] [address] 293 [place] [address] Sonali Echeverria, RITCHIE 293 [place] [phone] 11/01/2024 2:20 PM EDT Office [facility] 200 [facility] [place] [address] Baldo Mackey MD 200 [facility] [place] [address] 12/03/2024 2:00 PM EDT Office Visit Rheumatology [place] [address] [place], [place] [phone] Sarah Stroud CRNP [facility] [employer] [place] [address] Scheduled Procedures Name Priority Associated Diagnoses [...] Additional history exists CKD PHOS USE SMARTSET 68821 03/21/202402/24, 12/20/2021, 10/03/2021, Additional history exists Diabetic Foot Exam 03/21/2024 03/21/2023, 1 , 10/16/2020, Additional history exists Diabetic Eye Exam 04/01/2024 04/01/2023, , 06/02/2018, Additional history exists GFR 04/24/2024 10/24/2023, 08/25, 08/11/2023, Additional history exists HbA1c 05/20/2024 11/19/2023, 06/27, 03/21/2023, Additional history exists CKD HGB USE SMARTSET 62051 09/18/202409/18, 09/19/2023, 08/11/2023, Additional history exists Adult [...] filedocumented as of this encounter Care Teams Ornamental Iron Worker Relationship Specialty Start Date End Date Art Cavazos DO [address] [place] [address] PCP - General Internal Medicine 11/19/23 documented as of this encounter
--- OUTSIDE RECORDS SUMMARY | 2024-05-09 10:43 | External Medical Summary | Summary of Care ---
Author Name Unknown Organization [facility] Address [address] [place] [address] Phone [phone] Care Team Providers Care Operations Staff Specialist Security Name Role Phone Art Cvaazos DO Primary Care Provider [phone] Encounter Details Date Type Department Care Team (Late st Contact Info) Description 03/09/2024 Documentation HEALTH & WELLNESS Mayra Colon, Health Overhauler Bus Truck Allergies Active Allergy Reactions Criticality Noted Date Comments Amoxicillin Fever,Rash Medium 12/29/2013 documented as of this encounter (statuses as of 03/09/2024) Medications Medication Sig Dispensed Refills Start Date End Date Status TechMedia AdvertisingTOUCH ULTRA SYSTEM W/DEVICE KITIndications:DM type 2, goal [...] as of this encounter (statuses as of 03/09/2024) Active Problems Problem Noted Date Diagnosed Date [...] as of this encounter (statuses as of 03/09/2024) Resolved Problems Problem Noted Date Diagnosed Date [...] as of this encounter (statuses as of 03/09/2024) Immunizations Name Administration Dates Next Due COVID-19 mRNA, LNP-s, No Pre serve, 2-Dose Series (Moderna) 08/02/2020,07/05/2020 COVID-19, MRNA-LNP, 23-24, P F, 30 MCG/0.3 mL, 12 YRS AND ABOVE, IM ([facility]) 03/21/2023 COVID-19, mRNA, LNP-s, PF, B [...] encounter Progress Notes * Mayra Colon Health Overhauler Bus Truck - 03/09/2024 3:19 PM EDT Visit Type: Return Wellness Return Visit Type: Group exercise Resistance training documented in this encounter Plan of Treatment Upcoming Encounters Date Type Department Care Team (Late st Contact Info) Description 03/19/2024 1:45 PM EDT Office Visit Dermatology [facility] [address] [place] [address] Nicolas Moody MD [address] [place] [address] 03/31/2024 2:00 PM EST Nutrition Services Nutrition Services 65 [facility] 293 [facility], [place] [address] Lisa Ma RDN [address] [place] [address] [place] [address] 03/31/2024 3:20 PM EST Office Visit Family Practice [address] [facility] 293 [place] [phone] Art Cavazos DO 293 [place] [address] 05/05/2024 8:30 AM EST Therapy Neuropsychology [facility] 200 [facility] [place] [address] Enrique Kay, PhD 200 [facility] [place], [place] [phone] 10/15/2024 2:00 PM EDT Nurse Only Family Practice [address] [place] [address] 293 [place] [phone] Sonali Echeverria, RITCHIE 293 [place] [phone] 11/01/2024 2:20 PM EDT Office Visit Nephrology, [facility] 200 [facility] [place], [place] [phone] Baldo Mackey MD 200 [facility] [place] [address] 12/03/2024 2:00 PM EDT Office Visit Rheumatology [place] [address] [employer] [place], [place] [address] Sarah Stroud CRNP [address] [place], [place] [address] Scheduled Procedures Name Priority Associated Diagnoses Date/Ti [...] Additional history exists CKD PHOS USE SMARTSET 94963 03/21/202402/24, 12/20/2021, 10/03/2021, Additional history exists Diabetic Foot Exam 03/21/2024 03/21/2023, 1 , 10/16/2020, Additional history exists Diabetic Eye Exam 04/01/2024 04/01/2023, , 06/02/2018, Additional history exists GFR 04/24/2024 10/24/2023, 08/25, 08/11/2023, Additional history exists HbA1c 05/20/2024 11/19/2023, 06/27, 03/21/2023, Additional history exists CKD HGB USE SMARTSET 45502 09/18/202409/18, 09/19/2023, 08/11/2023, Additional history exists Adult [...] filedocumented as of this encounter Care Teams Operations Staff Specialist Security Relationship Specialty Start Date End Date Art Cavazos DO [address] [place], [place] [phone] PCP - General Internal Medicine 11/19/23 documented as of this encounter
--- OUTSIDE RECORDS SUMMARY | 2024-05-09 10:43 | External Medical Summary | Summary of Care ---
Author Name Unknown Organization [facility] Address [address] [place] [address] Phone [phone] Care Team Providers Care Chef Name Role Phone Art Cavazos DO Primary Care Provider [phone] Reason for Referral * Social Care (Within 24 hrs (call dept; emergent)) - Authorized Specialty Diagnoses / Procedures Referred By Kulwinder t Referred To Contact Door And Arrival Attendant Diagnoses Food insecurity Art Cavazos DO [address] [place] [address] Referral ID Status Reason Start Date Expiration Date Visits Requested Visits Authorized [id number] Authorized Specialty Services Required 4 [phone] Question Answer Referral Priority Within 24 hrs (call dept; emergent) Where should this appointment be scheduled? [facility] Role Community Health Review Consultant Community Health Review Consultant Referral Reason Home Visit Comments Is patient being transitioned from [facility] to Complex Case Management? No REPORT FROM PCP OFFICE WAS THAT PATIENT HAD NO FOOD IN THE HOME AND HE WAS FED SNACKS AT THE OFFICE ON 03/19/24- NEEDS URGENT FOLLOW UP Reason for Visit * Reason Onset Date Comments Advice 03/24/2024 food Encounter Details Date Type Department Care Team ([facility] Contact Info) Description 03/24/2024 Telephone [address] [facility] [place] [address] [place] [address] Art Cavazos DO [address] [place] [address] Advice (food) Allergies Active Allergy Reactions Criticality Noted Date Comments Amoxicillin Fever,Rash Medium 12/29/2013 documented as of this encounter (statuses as of 03/25/2024) Medications Medication Sig Dispensed Refills Start Date End Date Status Sanovia CorporationUCH ULTRA SYSTEM W/DEVICE KITIndications:DM type 2, goal [...] every afternoon. 60 Tab 11 07/02/2020 Active PartnerpediaTouch UltraSoft LancetsIndications :Type 2 diabetes mellitus with hemoglobin A1c goal of less than 7.0% ([facility]) Use to test sugars once daily 100 Each 3 08/29/2021 Active Vitamin D-400 10 MCG (400 UNIT) Oral Tablet (cholecalciferol (VIT D3))Indications:Vi tamin D deficiency Take 2 Tablets by mouth daily. 120 Tablet 3 07/08/2022 Active zSoupuch Ultra In Vitro Strip (Glucose Blood)Indications: Type 2 diabetes mellitus with stage 3a chronic kidney disease, without long-term current use of insulin ([facility]) TEST 1 TO 2 TIMES DAILY. 200 Strip 3 04/27/2023 06/05/2024 Active Latanoprost 0.005 % Ophthalmic Solution (Xalatan) Instill 1 Drop into both eyes once daily every evening as directed 10 mL 3 04/30/2023 Active Empagliflozin 25 MG Oral Tablet (Jardiance)Indicat ions:Type 2 diabetes mellitus with stage 3a chronic kidney disease, without long-term current use of insulin ([facility]) Take 1 Tablet by mouth [...] MCG/0.3 mL, 12 YRS AND ABOVE, IM ([facility]Com[facility]) 03/21/2023 COVID-19, mRNA, LNP-s, PF, B ooster, [...] PM EST Nutrition Services Nutrition Services [facility] 293 [place] [address] Lisa Ma RDN 293 [place] [address] 03/31/2024 3:20 PM EST Office Visit Family Practice [facility] 293 [place] [phone] Art Cavazos DO 293 [place] [address] 05/05/2024 8:30 AM EST Therapy Neuropsychology [facility] 200 [place] [address] Enrique Kay, PhD 200 [place] [address] 10/15/2024 2:00 PM EDT Nurse Only Family Practice 65 [facility] [place] [address] [facility] [place] [place] [address] Sonali Echeverria, RITCHIE 293 [place] [address] 11/01/2024 2:20 PM EDT Office Visit Nephrology, [facility] 200 [facility] [address] Baldo Mackey MD 200 [facility] [place], [place] [address] 12/03/2024 2:00 PM EDT Office Visit Rheumatology [place] [address] [employer] [place], [place] [address] Sarah Stroud CRNP [address] [employer] [place], [place] [address] Scheduled Procedures Name Priority Associated Diagnoses Date/Ti [...] Additional history exists CKD PHOS USE SMARTSET 03145 03/21/202402/24, 12/20/2021, 10/03/2021, Additional history exists Diabetic Foot Exam 03/21/2024 03/21/2023, 1 , 10/16/2020, Additional history exists Diabetic Eye Exam 04/01/2024 04/01/2023, , 06/02/2018, Additional history exists GFR 04/24/2024 10/24/2023, 08/25, 08/11/2023, Additional history exists HbA1c 05/20/2024 11/19/2023, 06/27, 03/21/2023, Additional history exists CKD HGB USE SMARTSET 26534 09/18/202409/18, 09/19/2023, 08/11/2023, Additional history exists Adult [...] Primary documented in this encounter Care Teams Chef Relationship Specialty Start Date End Date Art Cavazos DO [address] [place] [address] PCP - General Internal Medicine 11/19/23 documented as of this encounter
--- OUTSIDE RECORDS SUMMARY | 2024-05-09 10:43 | External Medical Summary | Summary of Care ---
Author Name Unknown Organization [facility] Address [address] [place] [address] Phone [phone] Care Team Providers Care Street Vendor Name Role Phone Art Cavazos DO Primary Care Provider [phone] Reason for Visit * Reason Comments Rheum Follow Up Follow up - Gout Encounter Details Date Type Department Care Team (Late st Contact Info) Description 03/01/2024 8:30 AM EDT Office Visit Rheumatology [place] [id number] [place] [address] Sarah Stroud CRNP [address] [place] [address] Gouty arthritis of both feet*; Hypertensive kidney disease with stage 3a chronic kidney disease (HCC) Allergies Active Allergy Reactions Criticality Noted Date Comments Amoxicillin Fever,Rash Medium 12/29/2013 documented as of this encounter (statuses as of 03/01/2024) Medications Medication Sig Dispensed Refills Start Date End Date Status GreenPal SYSTEM W/DEVICE KITIndications:DM type 2, goal A1c [...] hemoglobin A1c goal of less than 7.0% ([facility]) Use to test sugars once daily 100 Each 3 08/29/2021 Active Vitamin D-400 10 MCG (400 UNIT) Oral Tablet (cholecalciferol (VIT D3))Indications:Vi tamin D deficiency Take 2 Tablets by mouth daily. 120 Tablet 3 07/08/2022 Active OneTouch Ultra In Vitro Strip (Glucose Blood)Indications: Type 2 diabetes mellitus with stage 3a chronic kidney disease, without long-term current use of insulin ([facility]) TEST 1 TO 2 TIMES DAILY. 200 Strip 3 04/27/2023 06/05/2024 Active Latanoprost 0.005 % Ophthalmic Solution (Xalatan) Instill 1 Drop into both eyes once daily every evening as directed 10 mL 3 04/30/2023 Active Empagliflozin 25 MG Oral Tablet (Jardiance)Indicat ions:Type 2 diabetes mellitus with stage 3a chronic kidney disease, without long-term current use of insulin ([facility]) Take 1 Tablet by mouth in the [...] MCG/0.3 mL, 12 YRS AND ABOVE, IM ([facility]Comirnat[facility]) 03/21/2023 COVID-19, mRNA, LNP-s, PF, B ooster, [...] Past Smokeless Tobacco: Never Tobacco Cessation:Counseling Given: Not Answered Comments:used to smoke pipe in 1959's Alcohol [...] Sign Reading Time Taken Comments Blood Pressure 140/80 03/01/2024 8:39 AM EDT Pulse - - Temperature 36.6 C (97.8 F) 03/01/2024 8:39 AM ED T Respiratory Rate - - Oxygen Saturation - - Inhaled Oxygen Concentration - - Weight 88 kg (194 lb) 03/01/2024 8:39 AM EDT Height - - Body Mass Index 29.72 11/19/2023 10:38 AM EDT documented in this encounter Progress Notes * Sarah Stroud CRNP - 03/01/2024 8:44 AM EDT Subjective: Patient seen today for further follow up evaluation of gout. Since the last visit he has been on Allopurinol 100 mg daily with benefit. He notes he has had no interval pain or swelling. Denies interval illnesses, injuries, or hospitalization. No concerns today. Musculoskeletal ROS: . Normal Other ROS: . Constitutional: normal . Head normal . Eyes: normal . Ears, nose, throat, mouth: dry mouth . Cardiovascular: normal . Respiratory: normal . Gastrointestinal: normal . Genitourinary: normal . Skin: normal . Neurologic: normal All other ROS reviewed and negative. Pertinent positives listed in HPI. Social History: Social History Tobacco Use Smoking status: Former Types: Pipe Passive exposure: Past Smokeless tobacco: Never Tobacco comments: used to smoke pipe in 1960's Substance Use Topics Alcohol use: Yes Comment: occasional of variety Vaping/E-Cigarette Use Vaping/E-Cigarette Use Never User Vaping/E-Cigarette Substances Vaping/E-Cigarette Devices Current Outpatient Medications Medication Sig Dispense Refill GreenPal SYSTEM W/DEVICE KIT Use up to four [...] MOUTH IN THE MORNING. 100 Capsule 3 No current facility-administered medications for this visit. Physical Exam: BP 140/80 (BP Site: Left Arm, BP Position: Sitting) | Temp 36.6 C (97.8 F) (Infrared ) | Wt 88 kg (194 lb) | BMI 29.72 kg/m | BSA 2.05 m General: alert, healthy, and no distress HENT: normocephalic, external ears normal, no mucosal erythema, no mucosal edema, moist mucosa Eye Exam: PERRL, EOMI, conjunctiva are pink and non-injected, sclera clear Neck: supple, no adenopathy Heart: regular rate & rhythm, no murmur, and no gallops Lungs: clear to auscultation , no rales, wheezes or rhonchi Abdomen: abdomen soft, non-tender, and normal bowel sounds Extremities: no edema, no clubbing, no cyanosis Neuro Exam: alert & oriented x 3 with fluent speech, no focal motor/sensory deficits, gait normal Skin: skin color, texture, turgor are normal, no rashes or significant lesions Musculoskeletal Exam: .A comprehensive musculoskeletal exam was performed for all joints of each upper and lower extremity and assessed for swelling, tenderness and range of motion. No peripheral joint tenderness. Good range of motion of all joints. No SI joint tenderness. No joint swelling. Degenerative changes to left CMC joint Latest Reference Range & Units 11/10/23 14:31 CRP (Inflammatory Marker) <=5 mg/L <3 ESR <20 mm/hour 12 Latest Reference Range & Units 09/19/23 08:50 CBC Rpt WBC 4.00 - 10.80 K/uL 8.40 RBC 4.50 - 5.25 M/uL 4.99 HGB 14.0 - 16.8 g/dL 14.3 HCT 40.0 - 48.4 % 43.4 MCV 82.0 - 99.5 fL 87.0 MCH 27.0 - 34.0 pg 28.7 MCHC 32.0 - 36.0 g/dL 32.9 RDW 11.5 - 15.5 % 15.6 PLT 140 - 400 K/uL 257 MPV 6.6 - 11.1 fL 9.5 CBC WITH WBC DIFFERENTIAL Rpt ! Absolute Neutrophils 1.80 - 7.70 K/uL 6.55 Absolute Lymphocytes 1.00 - 4.80 K/ul 1.09 Absolute Monocytes 0.00 - 1.10 K/uL 0.63 Absolute Eosinophils 0.00 - 0.70 K/uL 0.02 Absolute Basophils 0.00 - 0.20 K/uL 0.08 Latest Reference Range & Units 09/19/23 08:50 Albumin 3.8 - 5.0 g/dL 4.2 AST 10 - 50 U/L 15 ALT 10 - 50 U/L 13 Alkaline Phosphatase 35 - 130 U/L 109 Bilirubin, Total <=1.2 mg/dL 0.3 Latest Reference Range & Units 09/19/23 08:50 SODIUM 135 - 146 mmol/L 136 POTASSIUM 3.5 - 5.1 mmol/L 4.6 CHLORIDE 98 - 107 mmol/L 99 CO2 22 - 32 mmol/L 28 BUN 6 - 20 mg/dL 29 (H) CREATININE 0.6 - 1.2 mg/dL 1.5 (H) EGFR >=60 mL/min 48 (L) ANION GAP 7 - 15 mmol/L 9 GLUCOSE 70 - 120 mg/dL 138 (H) CALCIUM 8.4 - 10.2 mg/dL 9.2 Protein 6.0 - 8.3 g/dL 7.2 Assessment: (M10.9) Gouty arthritis of both feet (primary encounter diagnosis) Plan: URIC ACID (I12.9, N18.31) Hypertensive kidney disease with stage 3a chronic kidney disease (HCC) Mr. Little returns today for management of gout. He is doing very well overall from a gout standpoint on allopurinol 100 mg daily. Continue allopurinol 100 mg daily. Patient will be getting flu shot later today at [address] forward. We will follow up 9 months, sooner if needed. Encouraged patient to contact clinic with any questions or concerns. Plan: 1. Labs: Uric acid 2. Continue allopurinol 100 mg daily 3. Follow up 9 months, sooner if needed 4. Contact clinic with any questions or concerns 5. Discussed the above in detail with the patient. All questions answered. CC RANDY Phelps Department of Rheumatology The patient was discussed with me. I agree with the findings and plan as documented by Sarah PADILLA in this note. Richard Oh MD Rheumatology Department documented in this encounter Nursing Notes * Monica Rodgers LPN - 03/01/2024 8:37 AM EDT Chief Complaint Patient presents with Rheum Follow Up Follow up - Gout documented in this encounter Plan of Treatment Upcoming Encounters Date Type Department Care Team (Late st Contact Info) Description 03/01/2024 12:45 PM EDT Office Visit Family Practice 65 [facility] 293 [facility] [place] [address] [facility] Cardiac Specialist Fam Prac [address] [place] [address] Arrived 03/01/2024 1:45 PM EDT Office Visit Family Practice 65 [facility] 293 [facility] [place] [address] [facility] Cardiac Specialist Fam Prac [address] [place] [address] Arrived 03/19/2024 1:45 PM EDT Office Visit Dermatology [facility] [place] [address] [facility] [place] [address] Nicolas Moody MD 200 [facility] [place] [address] 03/31/2024 2:00 PM EST Nutrition Services Nutrition Services [address] [facility] 293 [facility] [place] [address] Lisa Ma RDN 106 [facility] [place] [address] 03/31/2024 3:20 PM EST Office Visit Family Practice [address] [place] [address] 293 [facility] [place] [phone] Art Cavazos, 293 [place] [address] 05/05/2024 8:30 AM EST Therapy Neuropsychology [facility] 200 [facility] [address] Enrique Kay, PhD 200 [place] [address] 10/15/2024 2:00 PM EDT Nurse Only Family Practice [address] [place] [address] 293 [facility] [place] [phone] Sonali Echeverria, RITCHIE 293 [place] [phone] 11/01/2024 2:20 PM EDT Office Visit Nephrology, [facility] [address] [facility] [place] [address] Baldo Mackey MD 200 [place] [address] 12/03/2024 2:00 PM EDT Office Visit Rheumatology [place] [address] [facility] [place], [place] [address] Sarah Stroud CRNP [facility] [employer] [place], [place] [address] Scheduled Orders Name Type Priority Associated Diagnoses Orde r Schedule URIC ACID Lab Routine Gouty arthritis of both feet Expected: 03/01/2024, Expires: 03/01/2025 Scheduled Procedures Name Priority Associated Diagnoses Date/Ti [...] Additional history exists CKD PHOS USE SMARTSET 16100 03/21/202402/24, 12/20/2021, 10/03/2021, Additional history exists Diabetic Foot Exam 03/21/2024 03/21/2023, 1 , 10/16/2020, Additional history exists Diabetic Eye Exam 04/01/2024 04/01/2023, , 06/02/2018, Additional history exists GFR 04/24/2024 10/24/2023, 08/25, 08/11/2023, Additional history exists HbA1c 05/20/2024 11/19/2023, 06/27, 03/21/2023, Additional history exists CKD HGB USE SMARTSET 72160 09/18/202409/18, 09/19/2023, 08/11/2023, Additional history exists Adult [...] as of this encounter Visit Diagnoses Diagnosis Gouty arthritis of both feet- Primary Hypertensive kidney disease with stage 3a chronic kidney disease (HCC) documented in this encounter Care Teams Street Vendor Relationship Specialty Start Date End Date Art Cavazos DO [address] [place] [address] PCP - General Internal Medicine 11/19/23 documented as of this encounter"
--- OUTSIDE RECORDS SUMMARY | 2024-05-09 10:43 | External Medical Summary | Summary of Care ---
Author Name Unknown Organization [facility] Address [address] [place] [address] Phone [phone] Care Team Providers Care System Integration Engineer Name Role Phone Art Cavazos DO Primary Care Provider [phone] Encounter Details Date Type Department Care Team (Late st Contact Info) Description 03/10/2024 Documentation HEALTH & WELLNESS Mayra Colon, Health Certified Pediatric Nurse Practitioner Allergies Active Allergy Reactions Criticality Noted Date Comments Amoxicillin Fever,Rash Medium 12/29/2013 documented as of this encounter (statuses as of 03/10/2024) Medications Medication Sig Dispensed Refills Start Date End Date Status Printed PieceTOUCH ULTRA SYSTEM W/DEVICE KITIndications:DM type 2, goal [...] as of this encounter (statuses as of 03/10/2024) Active Problems Problem Noted Date Diagnosed Date [...] as of this encounter (statuses as of 03/10/2024) Resolved Problems Problem Noted Date Diagnosed Date [...] as of this encounter (statuses as of 03/10/2024) Immunizations Name Administration Dates Next Due COVID-19 mRNA, LNP-s, No Pre serve, 2-Dose Series (Moderna) 08/02/2020,07/05/2020 COVID-19, MRNA-LNP, 23-24, P F, 30 MCG/0.3 mL, 12 YRS AND ABOVE, IM ([facility]) 03/21/2023 COVID-19, mRNA, LNP-s, PF, B ooster, [...] encounter Progress Notes * Mayra Colon Health Certified Pediatric Nurse Practitioner - 03/10/2024 3:50 PM EDT Visit Type: Return Wellness Return Visit Type: Group exercise Balance training documented in this encounter Plan of Treatment Upcoming Encounters Date Type Department Care Team (Late st Contact Info) Description 03/19/2024 1:45 PM EDT Office Visit Dermatology [facility] [address] [place] [address] Nicolas Moody MD [address] [place] [address] 03/31/2024 2:00 PM EST Nutrition Services Nutrition Services 65 [facility] 293 [facility], [place] [address] Lisa Ma RDN [address] [place] [address] [place] [address] 03/31/2024 3:20 PM EST Office Visit Family Practice 65 [facility] 293 [facility] [place] [phone] Art Cavazos DO 293 [place] [address] 05/05/2024 8:30 AM EST Therapy Neuropsychology [facility] [address] [place] [address] Enrique Kay, PhD [address] [facility] [address] [facility] [place], [place] [phone] 10/15/2024 2:00 PM EDT Nurse Only Family Practice [address] [place] [address] 293 [facility] [place] [phone] Sonali Echeverria, RITCHIE 293 [place] [phone] 11/01/2024 2:20 PM EDT Office Visit Nephrology, [facility] [address] [facility] [address] [facility] [place], [place] [phone] Baldo Mackey MD [address] [place] [address] 12/03/2024 2:00 PM EDT Office Visit Rheumatology [place] [address] [employer] [place], [place] [address] Sarah Stroud CRNP [address] [place], [place] [phone] Scheduled Procedures Name Priority Associated Diagnoses Date/Ti [...] Additional history exists CKD PHOS USE SMARTSET 85514 03/21/202402/24, 12/20/2021, 10/03/2021, Additional history exists Diabetic Foot Exam 03/21/2024 03/21/2023, 1 , 10/16/2020, Additional history exists Diabetic Eye Exam 04/01/2024 04/01/2023, , 06/02/2018, Additional history exists GFR 04/24/2024 10/24/2023, 08/25, 08/11/2023, Additional history exists HbA1c 05/20/2024 11/19/2023, 06/27, 03/21/2023, Additional history exists CKD HGB USE SMARTSET 34954 09/18/202409/18, 09/19/2023, 08/11/2023, Additional history exists Adult [...] filedocumented as of this encounter Care Teams System Integration Engineer Relationship Specialty Start Date End Date Art Cavazos DO [address] [place], [place] [phone] PCP - General Internal Medicine 11/19/23 documented as of this encounter
--- OUTSIDE RECORDS SUMMARY | 2024-05-09 10:43 | External Medical Summary | Summary of Care ---
Author Name Unknown Organization [facility] Address [address] [place] [address] Phone [phone] Care Team Providers Care Highway Engineer Name Role Phone Art Cavazos DO Primary Care Provider [phone] Encounter Details Date Type Department Care Team (Late st Contact Info) Description 03/01/2024 Documentation HEALTH & WELLNESS Mayra Colon, Health Rebar Fabricator Allergies Active Allergy Reactions Criticality Noted Date Comments Amoxicillin Fever,Rash Medium 12/29/2013 documented as of this encounter (statuses as of 03/01/2024) Medications Medication Sig Dispensed Refills Start Date End Date Status 2 MinutesTOUCH ULTRA SYSTEM W/DEVICE KITIndications:DM type 2, goal [...] MCG/0.3 mL, 12 YRS AND ABOVE, IM ([facility]) 03/21/2023 COVID-19, mRNA, LNP-s, PF, [...] encounter Progress Notes * Mayra Colon Health Rebar Fabricator - 03/01/2024 4:01 PM EDT SESSION TYPE: Group exercise session: Exercise Subtype or Modality: Multi Exercise Patient completed a group exercise which consisted of cardiovascular and resistance training. Dumbbells, resistance bands and body weight were used for the exercises. He tolerated exercise well and had no complaints. * Mayra Colon Health Rebar Fabricator - 03/01/2024 3:55 PM EDT SESSION TYPE: [...] PM EDT Office Visit Dermatology [facility] [place] [address] [place], [place] [address] Nicolas Moody MD [address] [place] [address] 03/31/2024 2:00 PM EST Nutrition Services Nutrition Services [address] [place] [address] 293 [place] [address] Lisa Ma RDN 106 [place] [address] 03/31/2024 3:20 PM EST Office Visit Family Practice [address] [place] [address] 293 [place] [phone] rAt Cavazos DO 293 [facility] [place] [address] 05/05/2024 8:30 AM EST Therapy Neuropsychology [facility] [address] [place], [place] [address] Enrique Kay, PhD 200 [facility] [place], [place] [phone] 10/15/2024 2:00 PM EDT Nurse Only Family Practice [address] [place] [address] 293 [place] [phone] Sonali Echeverria, RITCHIE 293 [facility] [place] [address] 11/01/2024 2:20 PM EDT Office Visit Nephrology, [facility] [address] [place], [place] [phone] Baldo Mackey MD [address] [place], [place] [phone] 12/03/2024 2:00 PM EDT Office Visit Rheumatology [place] [address] [facility] [place], [place] [phone] Sarah Stroud CRNP [facility] [employer] [facility] [place], [place] [phone] Scheduled Procedures Name Priority Associated Diagnoses Date/Ti [...] Additional history exists CKD PHOS USE SMARTSET 57712 03/21/202402/24, 12/20/2021, 10/03/2021, Additional history exists Diabetic Foot Exam 03/21/2024 03/21/2023, 1 , 10/16/2020, Additional history exists Diabetic Eye Exam 04/01/2024 04/01/2023, , 06/02/2018, Additional history exists GFR 04/24/2024 10/24/2023, 08/25, 08/11/2023, Additional history exists HbA1c 05/20/2024 11/19/2023, 06/27, 03/21/2023, Additional history exists CKD HGB USE SMARTSET 19822 09/18/202409/18, 09/19/2023, 08/11/2023, Additional history exists Adult [...] filedocumented as of this encounter Care Teams Highway Engineer Relationship Specialty Start Date End Date Art Cavazos DO 293 [place] [address] PCP - General Internal Medicine 11/19/23 documented as of this encounter
--- OUTSIDE RECORDS SUMMARY | 2024-05-09 10:44 | External Medical Summary | Summary of Care ---
Author Name Unknown Organization [facility] Address [address] [place] [address] Phone [phone] Care Team Providers Care Vacuum Drier Tender Name Role Phone Art Cavazos DO Primary Care Provider [phone] Encounter Details Date Type Department Care Team (Late st Contact Info) Description 02/10/2024 Orders Only Outcomes Research Department [address] [place] [address] Maren Whitman CHRA [employer] Research Other*[id number] Allergies Active Allergy Reactions Criticality Noted Date Comments Amoxicillin Fever,Rash Medium 12/29/2013 documented as of this encounter (statuses as of 02/10/2024) Medications Medication Sig Dispensed Refills Start Date [...] 2 TIMES DAILY. 200 Strip 3 04/27/2023 04/26/2024 Active Latanoprost 0.005 % Ophthalmic Solution (Xalatan) Instill 1 Drop into both eyes once daily every evening as directed 10 mL 3 04/30/2023 Active Empagliflozin 25 MG Oral Tablet (Jardiance)Indicat ions:Type 2 diabetes mellitus with stage 3a chronic kidney disease, without long-term current use of insulin ([facility]) Take 1 Tablet by mouth in the [...] as of this encounter (statuses as of 02/10/2024) Active Problems Problem Noted Date Diagnosed Date [...] as of this encounter (statuses as of 02/10/2024) Resolved Problems Problem Noted Date Diagnosed Date [...] as of this encounter (statuses as of 02/10/2024) Immunizations Name Administration Dates Next Due COVID-19 mRNA, LNP-s, No Pre serve, 2-Dose Series (Moderna) 08/02/2020,07/05/2020 COVID-19, MRNA-LNP, 23-24, P F, 30 MCG/0.3 mL, 12 YRS AND ABOVE, IM ([facility]Comir[facility]) 03/21/2023 COVID-19, mRNA, LNP-s, PF, B ooster, 100mcg/0.5mg (Moderna) 11/09/2021,05/05/2021 Covid-19, Mrna, Lnp-s, Pf, B ivalent, 50 Mcg, IM, 12 yrs and above (Moderna) 05/31/2022 Pneumococcal Conjugate Vacc, 13 Valent (Prevnar) 09/29/2015 Pneumococcal Polysaccharide PPV23 (Pneumovax) 12/22/2009 Seasonal Influenza, PF, 6 M & above, IM , (FluLaval or Fluzone) 02/18/2020,02/17/2017 Seasonal Influenza, Quadriva lent Hd (Fluzone Hd) 03/21/2023,02/04/2022,03/27/2021 Seasonal Influenza, Quadriva lent, No Preserve, IM 02/02/2016 Seasonal Influenza, Trivalen t, (IIV3), with Preserv, (Fluzone) 01/27/2015,03/02/2014,04/07/2013,01/25,03/19/2011,02/19/2010 03/02/2015 Seasonal Influenza, Trivalen t, Adjuvanted, 65+ YRS, [...] No 03/21/2023 Does the household have a crownpoint healthcare facilitylar source of income? (Household - for ages [...] 18 years and over) Not on file 3 Are you (or your family) susan eless [...] 03/01/2024 8:30 AM EDT Office Visit Rheumatology [facility] [address] [place] [address] Sarah Stroud CRNP 25[address] [facility] [place] [address] 03/19/2024 1:45 PM EDT Office Visit Dermatology [facility] 200 [facility] [place] [address] Nicolas Moody MD [address] [place] [address] 03/31/2024 2:00 PM [facility] Nutrition Services Nutrition Services [address] [place] [address] 293 [facility], [place] [address] Lisa Ma RDN 106 [facility] [place] [phone] 05/05/2024 8:30 AM EST Therapy Neuropsychology [facility] 200 [place] [address] Enrique Kay, PhD 200 [place] [address] 10/15/2024 2:00 PM EDT Nurse Only Ancillary 65 [facility] 293 [place] [address] College, Nurse Annual Wellness Visit 65 [facility] 293 [place] [address] 11/01/2024 2:20 PM EDT Office Visit Nephrology, [facility] 200 [facility] [place], [place] [address] Baldo Mackey MD 200 [place] [address] Scheduled Orders Name Type Priority Associated Diagnoses Orde r Schedule MYCODE SUBSEQUENT ADULT Lab Routine [employer] Other*[id number] Every 6 Months for 2 Occurrences starting 02/10/2024 until 03/01/2025 Scheduled Procedures Name Priority Associated Diagnoses [...] Additional history exists CKD PHOS USE SMARTSET 40749 03/21/202402/24, 12/20/2021, 10/03/2021, Additional history exists Diabetic Foot Exam 03/21/2024 03/21/2023, 1 , 10/16/2020, Additional history exists Diabetic Eye Exam 04/01/2024 04/01/2023, , 06/02/2018, Additional history exists GFR 04/24/2024 10/24/2023, 08/25, 08/11/2023, Additional history exists HbA1c 05/20/2024 11/19/2023, 06/27, 03/21/2023, Additional history exists CKD HGB USE SMARTSET 60949 09/18/202409/18, 09/19/2023, 08/11/2023, Additional history exists Adult [...] as of this encounter Visit Diagnoses Diagnosis [employer] Other*[id number] documented in this encounter Care Teams Vacuum Drier Tender Relationship Specialty Start Date End Date Art Cavazos DO 293 [facility] [place] [address] PCP - General Internal Medicine 11/19/23 documented as of this encounter
--- OUTSIDE RECORDS SUMMARY | 2024-05-09 10:44 | External Medical Summary | Summary of Care ---
Author Name Unknown Organization [facility] Address [address] [place] [address] Phone [phone] Care Team Providers Care Therapeutic Mentor Name Role Phone Art Cavazos DO Primary Care Provider [phone] Encounter Details Date Type Department Care Team (Late st Contact Info) Description 02/24/2024 Documentation HEALTH & WELLNESS Mayra Colon, Health Electrical Test Technician Allergies Active Allergy Reactions Criticality Noted Date Comments Amoxicillin Fever,Rash Medium 12/29/2013 documented as of this encounter (statuses as of 02/24/2024) Medications Medication Sig Dispensed Refills Start Date End Date Status 24h00TOUCH ULTRA SYSTEM W/DEVICE KITIndications:DM type 2, goal [...] as of this encounter (statuses as of 02/24/2024) Active Problems Problem Noted Date Diagnosed Date [...] as of this encounter (statuses as of 02/24/2024) Resolved Problems Problem Noted Date Diagnosed Date [...] as of this encounter (statuses as of 02/24/2024) Immunizations Name Administration Dates Next Due COVID-19 mRNA, LNP-s, No Pre serve, 2-Dose Series (Moderna) 08/02/2020,07/05/2020 COVID-19, MRNA-LNP, 23-24, P F, 30 MCG/0.3 mL, 12 YRS AND ABOVE, IM ([facility]) 03/21/2023 COVID-19, mRNA, LNP-s, PF, B [...] encounter Progress Notes * Mayra Colon Health Electrical Test Technician - 02/24/2024 2:44 PM EDT SESSION TYPE: Group exercise session: [...] 03/01/2024 8:30 AM EDT Office Visit Rheumatology [facility] [address] [place] [address] Sarah Stroud CRNP [address] [place] [address] 03/19/2024 1:45 PM EDT Office Visit Dermatology [facility] Tamika [place] [address] [place] [address] Nicolas Moody MD [address] [place] [address] 03/31/2024 2:00 PM EST Nutrition Services Nutrition Services 65 [facility] 293 [place] [address] Lisa Ma RDN [address] [place] [address] 03/31/2024 3:20 PM EST Office Visit Family Practice [address] [place] [address] 293 [place] [phone] Art Cavazos, 293 [place] [address] 05/05/2024 8:30 AM EST Therapy Neuropsychology [facility] 200 [facility] [place] [address] Enrique Kay, PhD 200 [place] [place] [address] 10/15/2024 2:00 PM EDT Nurse Only Family Practice 65 [facility] 293 [place] [phone] Sonali Echeverria, RITCHIE 293 [facility] [place] [phone] 11/01/2024 2:20 PM EDT Office Visit Nephrology, [facility] 200 [facility] [place] [address] Baldo Mackey MD 200 [facility] [place] [address] Scheduled Procedures Name Priority Associated Diagnoses Date/Ti [...] Additional history exists CKD PHOS USE SMARTSET 98281 03/21/202402/24, 12/20/2021, 10/03/2021, Additional history exists Diabetic Foot Exam 03/21/2024 03/21/2023, 1 , 10/16/2020, Additional history exists Diabetic Eye Exam 04/01/2024 04/01/2023, , 06/02/2018, Additional history exists GFR 04/24/2024 10/24/2023, 08/25, 08/11/2023, Additional history exists HbA1c 05/20/2024 11/19/2023, 06/27, 03/21/2023, Additional history exists CKD HGB USE SMARTSET 43138 09/18/202409/18, 09/19/2023, 08/11/2023, Additional history exists Adult [...] filedocumented as of this encounter Care Teams Therapeutic Mentor Relationship Specialty Start Date End Date Art Cavazos DO [address] [place] [address] PCP - General Internal Medicine 11/19/23 documented as of this encounter
--- OUTSIDE RECORDS SUMMARY | 2024-05-09 10:44 | External Medical Summary | Summary of Care ---
Author Name Unknown Organization [facility] Address [address] [place] [address] Phone [phone] Care Team Providers Care Critical Systems Technician Name Role Phone Art Cavazos DO Primary Care Provider [phone] Encounter Details Date Type Department Care Team (Late st Contact Info) Description 01/07/2024 Documentation HEALTH & WELLNESS Mayra Colon, Health Hair Salon Manager Allergies Active Allergy Reactions Criticality Noted Date Comments Amoxicillin Fever,Rash Medium 12/29/2013 documented as of this encounter (statuses as of 01/07/2024) Medications Medication Sig Dispensed Refills Start Date End Date Status NouscoTOUCH ULTRA SYSTEM W/DEVICE KITIndications:DM type 2, goal [...] mouth daily. 120 Tablet 3 07/08/2022 Active Sildenafil Citrate 20 MG Oral Tablet (Revatio)Indicatio ns:Type 2 diabetes mellitus with stage 2 chronic kidney disease, without long-term current use of insulin (HCC) TAKE ONE TABLET BY MOUTH 1-4 HOURS BEFORE INTERCOURSE. NO MORE THAN 1 DOSE IN 24 HOURS. 30 Tablet 5 01/03/2023 01/22/2024 Active OneTouch Ultra In Vitro Strip (Glucose [...] as of this encounter (statuses as of 01/07/2024) Active Problems Problem Noted Date Diagnosed Date [...] as of this encounter (statuses as of 01/07/2024) Resolved Problems Problem Noted Date Diagnosed Date [...] as of this encounter (statuses as of 01/07/2024) Immunizations Name Administration Dates Next Due COVID-19 mRNA, LNP-s, No Pre serve, 2-Dose Series (Moderna) 08/02/2020,07/05/2020 COVID-19, MRNA-LNP, 23-24, P F, 30 MCG/0.3 mL, 12 YRS AND ABOVE, IM ([employer]) 03/21/2023 COVID-19, mRNA, LNP-s, PF, B ooster, [...] lent, No Preserve, IM 02/02/2016 Seasonal Influenza, Split, I IV3, With Preserve, Inj 01/27/2015,03/02/2014,04/07/2013,01/25,03/19/2011,02/19/2010 03/02/2015 Seasonal Influenza, Trivalen t, Adjuvanted, 65+ yrs 03/30/2019 TDAP (age 10 and older)(Boostrix) 05/23/2021 documented as of this encounter Social History Tobacco Use Types Packs/Day Years Used Date Smoking Tobacco: Former Pipe Passive Smoke Exposure: Past Smokeless Tobacco: Never Comments:used to smoke pipe in 1959' Alcohol Use Standard Drinks/Week Comments Yes 0 [...] encounter Progress Notes * Mayra Colon Health Hair Salon Manager - 01/07/2024 4:01 PM EDT SESSION TYPE: Group exercise session: Exercise Subtype or Modality: Multi Exercise Patient completed a group exercise session which consisted of cardiovascular, balance and resistance training. Patient moved through different cardio stations in 4 minute increments. The stations included using steps, seated/stationary exercises, dumbbells, recumbent bike and treadmill. Intensity of exercise was increased every minute at each station. He tolerated exercise well and had no complaints. * Mayra Colon Health Hair Salon Manager - 01/07/2024 4:00 PM EDT SESSION TYPE: Group exercise session: Exercise Subtype or Modality: Balance Training Patient completed a group exercise session which consisted of balance training. All exercises included improving balance and strength of lower extremities. He tolerated the exercises well and had no complaints. documented in this encounter Plan of Treatment Upcoming Encounters Date Type Department Care Team (Late st Contact Info) Description 03/01/2024 8:30 AM EDT Office Visit Rheumatology [place] [address] [facility] [place] [address] Sarah Stroud CRNP [address] [facility] [place] [address] 03/19/2024 1:45 PM EDT Office Visit Dermatology [facility] [address] [place] [address] Nicolas Moody MD 200 [facility] [place] [address] 03/31/2024 2:00 PM EST Nutrition Services Nutrition Services [address] [place] [address] Lisa Ma RDN [address] [place] [address] 05/05/2024 8:30 AM EST Therapy Neuropsychology [facility] [address] [place] [address] Enrique Kay, PhD 200 [facility] [place] [address] 10/15/2024 2:00 PM EDT Nurse Only Ancillary 65 [facility] 293 [place] [address] College, Nurse Annual Wellness Visit [address] [place] [address] 11/01/2024 2:20 PM EDT Office Visit Nephrology, [facility] [address] [place] [address] Baldo Mackey MD 200 [facility] [address] [place] [address] Scheduled Procedures Name Priority Associated Diagnoses Date/Ti me ESOPHAGOGASTRODUODENOSCOPY ( EGD), FLEXIBLE, TRANSORAL, DIAGNOSTIC Recall Anderson's esophagus with esophagitis Health Maintenance Due Date Last Done Comments Zoster Vaccines (1 of 2) 1990 COVID-19 Vaccine (2022- season) 2023 03/21/2023, 05/31/2022, 11/09/2021, Additional history exists Anderson's Esophagus Surveilance 10/26/2023 10/25/2020, 10/25/2020, 04/09/2018 Influenza Vaccine (FLU shot) (#1) 2024 03/21/2023, 02/04/2022, 03/27/2021, Additional history exists CKD PHOS USE SMARTSET 42693 03/21/202402/24, 12/20/2021, 10/03/2021, Additional history exists Diabetic Foot Exam 03/21/2024 03/21/2023, 1 , 10/16/2020, Additional history exists Diabetic Eye Exam 04/01/2024 04/01/2023, , 06/02/2018, Additional history exists GFR 04/24/2024 10/24/2023, 08/25, 08/11/2023, Additional history exists HbA1c 05/20/2024 11/19/2023, 06/27, 03/21/2023, Additional history exists CKD HGB USE SMARTSET 71663 09/18/202409/18, 09/19/2023, 08/11/2023, Additional history exists Adult Wellness Visit 10/09/2024 10/10/2023, 09/20/2022, 06/06/2021 Albumin/Creatinine Ratio 10/09/2024 024, 11/18/2022, 11/20/2021, Additional history exists Depression Screening 10/09/2024 10/10/2023, 10/10/19 24 DTaP,Tdap,and Td Vaccines (2 - Td or Tdap) 05/23/2031 [...] filedocumented as of this encounter Care Teams Critical Systems Technician Relationship Specialty Start Date End Date Art Cavazos DO [address] [place] [address] PCP - General Internal Medicine 11/19/23 documented as of this encounter
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
--- OUTSIDE RECORDS SUMMARY | 2024-05-09 10:44 | External Medical Summary | Summary of Care ---
Author Name Unknown Organization [facility] Address [address] [place] [address] Phone [phone] Care Team Providers Care Technical Support Specialist Name Role Phone Art Cavazos DO Primary Care Provider [phone] Encounter Details Date Type Department Care Team (Late st Contact Info) Description 01/29/2024 Documentation HEALTH & WELLNESS Mayra Colon, Health Oceanology Teacher Allergies Active Allergy Reactions Criticality Noted Date Comments Amoxicillin Fever,Rash Medium 12/29/2013 documented as of this encounter (statuses as of 01/29/2024) Medications Medication Sig Dispensed Refills Start Date End Date Status FARR TechnologiesTOUCH ULTRA SYSTEM W/DEVICE KITIndications:DM type 2, goal [...] as of this encounter (statuses as of 01/29/2024) Active Problems Problem Noted Date Diagnosed Date [...] as of this encounter (statuses as of 01/29/2024) Resolved Problems Problem Noted Date Diagnosed Date [...] as of this encounter (statuses as of 01/29/2024) Immunizations Name Administration Dates Next Due COVID-19 mRNA, LNP-s, No Pre serve, 2-Dose Series (Moderna) 08/02/2020,07/05/2020 COVID-19, MRNA-LNP, 23-24, P F, 30 MCG/0.3 mL, 12 YRS AND ABOVE, IM [facility] 03/21/2023 COVID-19, mRNA, LNP-s, PF, B [...] No 03/21/2023 Does the household have a kayenta health centerlar source of income? (Household - for ages [...] encounter Progress Notes * Mayra Colon Health Oceanology Teacher - 01/29/2024 11:22 AM EDT SESSION TYPE: Group exercise session: Exercise Subtype or Modality: Cardiovascular Training Patient completed 45 minutes of walking. documented in this encounter Plan of Treatment Upcoming Encounters Date Type Department Care Team (Late st Contact Info) Description 03/01/2024 8:30 AM EDT Office Visit Rheumatology [facility] [address] [facility] [place] [address] Sarah Stroud CRNP [address] [place] [address] 03/19/2024 1:45 PM EDT Office Visit Dermatology [facility] [address] [place] [address] Nicolas Moody MD [address] [place] [address] 03/31/2024 2:00 PM [facility] Nutrition Services Nutrition Services [address] [place] [address] 293 [facility] [place] [address] Lisa Ma RDN 106 [facility] [place] [address] 05/05/2024 8:30 AM EST Therapy Neuropsychology [facility] 200 [place] [address] Enrique Kay, PhD 200 [place] [address] 10/15/2024 2:00 PM EDT Nurse Only Ancillary [address] [address] College, Nurse Annual Wellness Visit [address] [address] 11/01/2024 2:20 PM EDT Office Visit Nephrology, [facility] 200 [place] [address] Baldo Mackey MD 200 [place] [address] Scheduled Procedures Name Priority Associated Diagnoses Date/Ti [...] Additional history exists CKD PHOS USE SMARTSET 98221 03/21/202402/24, 12/20/2021, 10/03/2021, Additional history exists Diabetic Foot Exam 03/21/2024 03/21/2023, 1 , 10/16/2020, Additional history exists Diabetic Eye Exam 04/01/2024 04/01/2023, , 06/02/2018, Additional history exists GFR 04/24/2024 10/24/2023, 08/25, 08/11/2023, Additional history exists HbA1c 05/20/2024 11/19/2023, 06/27, 03/21/2023, Additional history exists CKD HGB USE SMARTSET 46805 09/18/202409/18, 09/19/2023, 08/11/2023, Additional history exists Adult [...] filedocumented as of this encounter Care Teams Technical Support Specialist Relationship Specialty Start Date End Date Art Cavazos DO [address] [place] [address] PCP - General Internal Medicine 11/19/23 documented as of this encounter
--- OUTSIDE RECORDS SUMMARY | 2024-05-09 10:44 | External Medical Summary | Summary of Care ---
Author Name Unknown Organization [facility] Address [address] [place] [address] Phone [phone] Care Team Providers Care Armament Aircraft Mechanic Name Role Phone Art Cavazos DO Primary Care Provider Encounter Details Date Type Department Care Team (Late st Contact Info) Description 02/11/2024 Documentation HEALTH & WELLNESS Mayra Colon, Health Traffic Analysis Technician Allergies Active Allergy Reactions Criticality Noted Date Comments Amoxicillin Fever,Rash Medium 12/29/2013 documented as of this encounter (statuses as of 02/11/2024) Medications Medication Sig Dispensed Refills Start Date End Date Status TournEaseTOUCH ULTRA SYSTEM W/DEVICE KITIndications:DM type 2, goal [...] as of this encounter (statuses as of 02/11/2024) Active Problems Problem Noted Date Diagnosed Date [...] as of this encounter (statuses as of 02/11/2024) Resolved Problems Problem Noted Date Diagnosed Date [...] as of this encounter (statuses as of 02/11/2024) Immunizations Name Administration Dates Next Due COVID-19 mRNA, LNP-s, No Pre serve, 2-Dose Series (Moderna) 08/02/2020,07/05/2020 COVID-19, MRNA-LNP, 23-24, P F, 30 MCG/0.3 mL, 12 YRS AND ABOVE, IM ([employer]) 03/21/2023 COVID-19, mRNA, LNP-s, PF, B ooster, [...] No 03/21/2023 Does the household have a [facility] health center[facility] source of income? (Household - [...] encounter Progress Notes * Mayra Colon Health Traffic Analysis Technician - 02/11/2024 4:04 PM EDT SESSION TYPE: Group exercise session: Exercise Subtype or Modality: Balance Training Patient completed a group exercise session which consisted of balance training. All exercises included improving balance and strength of lower extremities. He tolerated the exercises well and had no complaints. * Mayra Colon Health Traffic Analysis Technician - 02/11/2024 4:04 PM EDT SESSION TYPE: Group exercise session: [...] 03/01/2024 8:30 AM EDT Office Visit Rheumatology [facility] 2520 [facility] [place], [place] [address] Sarah Stroud CRNP 2520 [facility] [place] [address] 03/19/2024 1:45 PM EDT Office Visit Dermatology [facility] [address] [place] [address] Nicolas Moody MD 200 [facility] [place] [address] 03/31/2024 2:00 PM EST Nutrition Services Nutrition Services [address] [place] [address] Lisa Ma RDN [address] [place] [address] 05/05/2024 8:30 AM EST Therapy Neuropsychology [facility] [address] [place], [place] [address] Enrique Kay, PhD 200 [place] [address] 10/15/2024 2:00 PM EDT Nurse Only Ancillary [address] [address] College, Nurse Annual Wellness Visit [address] [place] [address] 11/01/2024 2:20 PM EDT Office Visit Nephrology, [facility] [address] [place], [place] [address] Baldo Mackey MD 200 [facility] [address] [place], [place] [address] Scheduled Procedures Name Priority Associated Diagnoses Date/Ti [...] Additional history exists CKD PHOS USE SMARTSET 16308 03/21/202402/24, 12/20/2021, 10/03/2021, Additional history exists Diabetic Foot Exam 03/21/2024 03/21/2023, 1 , 10/16/2020, Additional history exists Diabetic Eye Exam 04/01/2024 04/01/2023, , 06/02/2018, Additional history exists GFR 04/24/2024 10/24/2023, 08/25, 08/11/2023, Additional history exists HbA1c 05/20/2024 11/19/2023, 06/27, 03/21/2023, Additional history exists CKD HGB USE SMARTSET 24275 09/18/202409/18, 09/19/2023, 08/11/2023, Additional history exists Adult [...] filedocumented as of this encounter Care Teams Armament Aircraft Mechanic Relationship Specialty Start Date End Date Art Cavazos DO [address] [place] [address] PCP - General Internal Medicine 11/19/23 documented as of this encounter
--- OUTSIDE RECORDS SUMMARY | 2024-05-09 10:44 | External Medical Summary | Summary of Care ---
Author Name Unknown Organization [facility] Address [address] [place] [address] Phone [phone] Care Team Providers Care Therapist Occupational Name Role Phone Art Cavazos DO Primary Care Provider [phone] Encounter Details Date Type Department Care Team (Late st Contact Info) Description 01/06/2024 Documentation HEALTH & WELLNESS Mayra Colon, Health Coffee Maker Servicer Allergies Active Allergy Reactions Criticality Noted Date Comments Amoxicillin Fever,Rash Medium 12/29/2013 documented as of this encounter (statuses as of 01/06/2024) Medications Medication Sig Dispensed Refills Start Date End Date Status MogadTOUCH ULTRA SYSTEM W/DEVICE KITIndications:DM type 2, goal [...] as of this encounter (statuses as of 01/06/2024) Active Problems Problem Noted Date Diagnosed Date [...] as of this encounter (statuses as of 01/06/2024) Resolved Problems Problem Noted Date Diagnosed Date [...] as of this encounter (statuses as of 01/06/2024) Immunizations Name Administration Dates Next Due COVID-19 mRNA, LNP-s, No Pre serve, 2-Dose Series (Moderna) 08/02/2020,07/05/2020 COVID-19, MRNA-LNP, 23-24, P F, 30 MCG/0.3 mL, 12 YRS AND ABOVE, IM (Shutl-Comirnat) 03/21/2023 COVID-19, mRNA, LNP-s, PF, B ooster, [...] encounter Progress Notes * Mayra Colon Health Coffee Maker Servicer - 01/06/2024 2:16 PM EDT SESSION TYPE: Group exercise session: [...] 03/01/2024 8:30 AM EDT Office Visit Rheumatology [facility] [address] [facility] [place] [address] Sarah Stroud CRNP [address] [place] [address] 03/19/2024 1:45 PM EDT Office Visit Dermatology [place], [place] 200 [facility] [place] [address] Nicolas Moody MD 200 [facility] [place] [address] 03/31/2024 2:00 PM EST Nutrition Services Nutrition Services [address] [address] Lisa Ma RDN [address] [place] [address] 05/05/2024 8:30 AM EST [facility] 200 [facility] [place] [address] Enrique Kay, PhD 200 [facility] [place] [address] 10/15/2024 2:00 PM EDT Nurse Only Ancillary [address] [address] [place], Nurse Annual Wellness Visit [address] [address] 11/01/2024 2:20 PM EDT Office Visit Nephrology, [facility] 200 [facility] [place] [address] Baldo Mackey MD 200 [facility] [place] [address] Scheduled Procedures Name Priority Associated Diagnoses Date/Ti [...] Additional history exists CKD PHOS USE SMARTSET 42501 03/21/202402/24, 12/20/2021, 10/03/2021, Additional history exists Diabetic Foot Exam 03/21/2024 03/21/2023, 1 , 10/16/2020, Additional history exists Diabetic Eye Exam 04/01/2024 04/01/2023, , 06/02/2018, Additional history exists GFR 04/24/2024 10/24/2023, 08/25, 08/11/2023, Additional history exists HbA1c 05/20/2024 11/19/2023, 06/27, 03/21/2023, Additional history exists CKD HGB USE SMARTSET 30961 09/18/202409/18, 09/19/2023, 08/11/2023, Additional history exists Adult [...] filedocumented as of this encounter Care Teams Therapist Occupational Relationship Specialty Start Date End Date Art Cavazso DO [address] [place] [address] PCP - General Internal Medicine 11/19/23 documented as of this encounter
--- OUTSIDE RECORDS SUMMARY | 2024-05-09 10:44 | External Medical Summary | Summary of Care ---
Author Name Unknown Organization [facility] Address [address] [place] [address] Phone [phone] Care Team Providers Care Finisher Denture Name Role Phone Art Cavazos DO Primary Care Provider [phone] Encounter Details Date Type Department Care Team (Late st Contact Info) Description 01/21/2024 Documentation HEALTH & WELLNESS Mayra Colon, Health Internet Developer Allergies Active Allergy Reactions Criticality Noted Date Comments Amoxicillin Fever,Rash Medium 12/29/2013 documented as of this encounter (statuses as of 01/21/2024) Medications Medication Sig Dispensed Refills Start Date End Date Status The Innovation FactoryTOUCH ULTRA SYSTEM W/DEVICE KITIndications:DM type 2, goal [...] as of this encounter (statuses as of 01/21/2024) Active Problems Problem Noted Date Diagnosed Date [...] as of this encounter (statuses as of 01/21/2024) Resolved Problems Problem Noted Date Diagnosed Date [...] as of this encounter (statuses as of 01/21/2024) Immunizations Name Administration Dates Next Due COVID-19 mRNA, LNP-s, No Pre serve, 2-Dose Series (Moderna) 08/02/2020,07/05/2020 COVID-19, MRNA-LNP, 23-24, P F, 30 MCG/0.3 mL, 12 YRS AND ABOVE, IM ([employer]-Comirnat) 03/21/2023 COVID-19, mRNA, LNP-s, PF, B ooster, [...] encounter Progress Notes * Mayra Colon Health Internet Developer - 01/21/2024 3:40 PM EDT SESSION TYPE: Group exercise session: Exercise Subtype or Modality: Balance Training Patient completed a group exercise session which consisted of balance training. All exercises included improving balance and strength of lower extremities. He tolerated the exercises well and had no complaints. * Mayra Colon Health Internet Developer - 01/21/2024 3:40 PM EDT SESSION TYPE: Group exercise session: [...] 03/01/2024 8:30 AM EDT Office Visit Rheumatology [facility] [address] [facility] [place] [address] Sarah Stroud CRNP 25[address] [facility] [place] [address] 03/19/2024 1:45 PM EDT Office Visit Dermatology [facility] [address] [place] [address] Nicolas Moody MD 200 [facility] [place] [address] 03/31/2024 2:00 PM EST Nutrition Services Nutrition Services [address] [place] [address] Lisa Ma RDN [address] [place] [address] 05/05/2024 8:30 AM EST Therapy Neuropsychology [facility] [address] [place] [address] Enrique Kay, PhD 200 [facility] [place] [address] 10/15/2024 2:00 PM EDT Nurse Only Ancillary 65 [facility] 293 [place] [address] [employer], Nurse Annual Wellness Visit [address] [place] [address] 11/01/2024 2:20 PM EDT Office Visit Nephrology, [facility] [address] [place] [address] Baldo Mackey MD 200 [facility] [address] [place] [address] Scheduled Procedures Name Priority Associated Diagnoses Date/Ti [...] Additional history exists CKD PHOS USE SMARTSET 86293 03/21/202402/24, 12/20/2021, 10/03/2021, Additional history exists Diabetic Foot Exam 03/21/2024 03/21/2023, 1 , 10/16/2020, Additional history exists Diabetic Eye Exam 04/01/2024 04/01/2023, , 06/02/2018, Additional history exists GFR 04/24/2024 10/24/2023, 08/25, 08/11/2023, Additional history exists HbA1c 05/20/2024 11/19/2023, 06/27, 03/21/2023, Additional history exists CKD HGB USE SMARTSET 16645 09/18/202409/18, 09/19/2023, 08/11/2023, Additional history exists Adult [...] filedocumented as of this encounter Care Teams Finisher Denture Relationship Specialty Start Date End Date Art Cavazos DO [address] [facility] [address] PCP - General Internal Medicine 11/19/23 documented as of this encounter
--- OUTSIDE RECORDS SUMMARY | 2024-05-09 10:44 | External Medical Summary | Summary of Care ---
Author Name Unknown Organization [facility] Address [address] [place] [address] Phone [phone] Care Team Providers Care Wire Drawing Setter Name Role Phone Art Cavazos DO Primary Care Provider [phone] Encounter Details Date Type Department Care Team (Late st Contact Info) Description 01/20/2024 Documentation HEALTH & WELLNESS Mayra Colon, Health Chemist Physical Allergies Active Allergy Reactions Criticality Noted Date Comments Amoxicillin Fever,Rash Medium 12/29/2013 documented as of this encounter (statuses as of 01/20/2024) Medications Medication Sig Dispensed Refills Start Date End Date Status Object MatrixTOUCH ULTRA SYSTEM W/DEVICE KITIndications:DM type 2, goal [...] as of this encounter (statuses as of 01/20/2024) Active Problems Problem Noted Date Diagnosed Date [...] as of this encounter (statuses as of 01/20/2024) Resolved Problems Problem Noted Date Diagnosed Date [...] as of this encounter (statuses as of 01/20/2024) Immunizations Name Administration Dates Next Due COVID-19 mRNA, LNP-s, No Pre serve, 2-Dose Series (Moderna) 08/02/2020,07/05/2020 COVID-19, MRNA-LNP, 23-24, P F, 30 MCG/0.3 mL, 12 YRS AND ABOVE, IM (Triductor-Comirnat) 03/21/2023 COVID-19, mRNA, LNP-s, PF, B ooster, [...] encounter Progress Notes * Mayra Colon Health Chemist Physical - 01/20/2024 3:14 PM EDT SESSION TYPE: Group exercise session: [...] AM EDT Office Visit Rheumatology [facility] [address] [facility] [place] [address] Sarah Stroud CRNP [address] [employer] [place] [address] 03/19/2024 1:45 PM EDT Office Visit Dermatology [place], [place] 200 [place] [address] Nicolas Moody MD 200 [place] [address] 03/31/2024 2:00 PM EST Nutrition Services Nutrition Services [address] [address] Lisa Ma RDN [address] [place] [address] 05/05/2024 8:30 AM EST Therapy Neuropsychology [facility] 200 [place] [address] Enrique Kay, PhD 200 [place] [address] 10/15/2024 2:00 PM EDT Nurse Only Ancillary [address] [address] [place], Nurse Annual Wellness Visit [address] [address] 11/01/2024 2:20 PM EDT Office Visit Nephrology, [facility] [address] [facility] [address] Baldo Mackey MD [address] [facility] [address] Scheduled Procedures Name Priority Associated Diagnoses Date/Ti [...] Additional history exists CKD PHOS USE SMARTSET 26232 03/21/202402/24, 12/20/2021, 10/03/2021, Additional history exists Diabetic Foot Exam 03/21/2024 03/21/2023, 1 , 10/16/2020, Additional history exists Diabetic Eye Exam 04/01/2024 04/01/2023, , 06/02/2018, Additional history exists GFR 04/24/2024 10/24/2023, 08/25, 08/11/2023, Additional history exists HbA1c 05/20/2024 11/19/2023, 06/27, 03/21/2023, Additional history exists CKD HGB USE SMARTSET 84253 09/18/202409/18, 09/19/2023, 08/11/2023, Additional history exists Adult [...] filedocumented as of this encounter Care Teams Wire Drawing Setter Relationship Specialty Start Date End Date Art Cavazos DO [address] [place] [address] PCP - General Internal Medicine 11/19/23 documented as of this encounter
--- OUTSIDE RECORDS SUMMARY | 2024-05-09 10:44 | External Medical Summary | Summary of Care ---
Author Name Unknown Organization [facility] Address [address] [place] [address] Phone [phone] Care Team Providers Care Hotel Guest Service Agent Name Role Phone Art Cavazos DO Primary Care Provider [phone] Encounter Details Date Type Department Care Team (Late st Contact Info) Description 01/28/2024 Documentation HEALTH & WELLNESS Mayra Colon, Health Burnishing Machine Operator Allergies Active Allergy Reactions Criticality Noted Date Comments Amoxicillin Fever,Rash Medium 12/29/2013 documented as of this encounter (statuses as of 01/28/2024) Medications Medication Sig Dispensed Refills Start Date End Date Status RaptTOUCH ULTRA SYSTEM W/DEVICE KITIndications:DM type 2, goal [...] as of this encounter (statuses as of 01/28/2024) Active Problems Problem Noted Date Diagnosed Date [...] as of this encounter (statuses as of 01/28/2024) Resolved Problems Problem Noted Date Diagnosed Date [...] as of this encounter (statuses as of 01/28/2024) Immunizations Name Administration Dates Next Due COVID-19 mRNA, LNP-s, No Pre serve, 2-Dose Series (Moderna) 08/02/2020,07/05/2020 COVID-19, MRNA-LNP, 23-24, P F, 30 MCG/0.3 mL, 12 YRS AND ABOVE, IM [facility] 03/21/2023 COVID-19, mRNA, LNP-s, PF, [...] No 03/21/2023 Does the household have a [facility] regional treatment centerlar source of income? (Household - for [...] encounter Progress Notes * Mayra Colon Health Burnishing Machine Operator - 01/28/2024 4:03 PM EDT SESSION TYPE: Group exercise session: [...] had no complaints. * Mayra Colon Health Burnishing Machine Operator - 01/28/2024 4:02 PM EDT SESSION TYPE: Group exercise session: [...] 03/01/2024 8:30 AM EDT Office Visit Rheumatology [facility] [address] [facility] [place], [place] [address] Sarah Stroud CRNP 2520 [facility] [place] [address] 03/19/2024 1:45 PM EDT Office Visit Dermatology [facility] [address] [place] [address] Nicolas Moody MD 200 [facility] [place] [address] 03/31/2024 2:00 PM EST Nutrition Services Nutrition Services [address] [place] [address] Lisa Ma RDN [address] [place] [address] 05/05/2024 8:30 AM EST Therapy Neuropsychology [facility] [address] [place], [place] [address] Enrique Kay, PhD 200 [facility] [place] [address] 10/15/2024 2:00 PM EDT Nurse Only Ancillary [address] [address] [place], Nurse Annual Wellness Visit [address] [place] [address] 11/01/2024 2:20 PM EDT Office Visit Nephrology, [facility] [address] [place], [place] [address] Baldo Mackey MD 200 [facility] [address] [place], [place] [address] Scheduled Procedures Name Priority Associated Diagnoses Date/Ti [...] Additional history exists CKD PHOS USE SMARTSET 61996 03/21/202402/24, 12/20/2021, 10/03/2021, Additional history exists Diabetic Foot Exam 03/21/2024 03/21/2023, 1 , 10/16/2020, Additional history exists Diabetic Eye Exam 04/01/2024 04/01/2023, , 06/02/2018, Additional history exists GFR 04/24/2024 10/24/2023, 08/25, 08/11/2023, Additional history exists HbA1c 05/20/2024 11/19/2023, 06/27, 03/21/2023, Additional history exists CKD HGB USE SMARTSET 57068 09/18/202409/18, 09/19/2023, 08/11/2023, Additional history exists Adult [...] filedocumented as of this encounter Care Teams Hotel Guest Service Agent Relationship Specialty Start Date End Date Art Cavazos DO [address] [place] [address] PCP - General Internal Medicine 11/19/23 documented as of this encounter
--- OUTSIDE RECORDS SUMMARY | 2024-05-09 10:44 | External Medical Summary | Summary of Care ---
Author Name Unknown Organization [facility] Address [address] [place] [address] Phone [phone] Care Team Providers Care Lead Radiologic Technologist Name Role Phone Art Cavazos DO Primary Care Provider [phone] Encounter Details Date Type Department Care Team (Late st Contact Info) Description 02/25/2024 Documentation HEALTH & WELLNESS Mayra Colon, Health Reproducer Allergies Active Allergy Reactions Criticality Noted Date Comments Amoxicillin Fever,Rash Medium 12/29/2013 documented as of this encounter (statuses as of 02/25/2024) Medications Medication Sig Dispensed Refills Start Date End Date Status NatSentTOUCH ULTRA SYSTEM W/DEVICE KITIndications:DM type 2, goal [...] as of this encounter (statuses as of 02/25/2024) Active Problems Problem Noted Date Diagnosed Date [...] as of this encounter (statuses as of 02/25/2024) Resolved Problems Problem Noted Date Diagnosed Date [...] as of this encounter (statuses as of 02/25/2024) Immunizations Name Administration Dates Next Due COVID-19 mRNA, LNP-s, No Pre serve, 2-Dose Series (Moderna) 08/02/2020,07/05/2020 COVID-19, MRNA-LNP, 23-24, P F, 30 MCG/0.3 mL, 12 YRS AND ABOVE, IM ([facility]) 03/21/2023 COVID-19, mRNA, LNP-s, PF, B [...] encounter Progress Notes * Mayra Colon Health Reproducer - 02/25/2024 3:40 PM EDT Visit Type: Return Wellness Return Visit Type: Group exercise Patient completed a group exercise session which [...] 03/01/2024 8:30 AM EDT [facility] [address] [place] [address] Sarah Stroud CRNP [address] [place] [address] 03/19/2024 1:45 PM EDT Office Visit Dermatology [place] [place] [address] [place] [address] Nicolas Moody MD 200 [facility] [place] [address] 03/31/2024 2:00 PM EST Nutrition Services Nutrition Services 65 [facility] 293 [place] [address] Lisa Ma, FROYLAN 106 [place] [address] 03/31/2024 3:20 PM EST Office Visit Family Practice [address] [place] [address] 293 [place] [address] Art Cavazos DO 293 [facility] [address] 05/05/2024 8:30 AM EST Therapy Neuropsychology [facility] 200 [facility] [place] [address] Enrique Kay, PhD 200 [facility] [place] [address] 10/15/2024 2:00 PM EDT Nurse Only Family Practice [address] [place] [address] 293 [facility] [place] [id number] Sonali Echeverria, RITCHIE 293 [facility] [address] 11/01/2024 2:20 PM EDT Office Visit Nephrology, [facility] [address] [place] [address] Baldo Mackey MD [address] [place] [address] Scheduled Procedures Name Priority Associated Diagnoses Date/Ti [...] Additional history exists CKD PHOS USE SMARTSET 54274 03/21/202402/24, 12/20/2021, 10/03/2021, Additional history exists Diabetic Foot Exam 03/21/2024 03/21/2023, 1 , 10/16/2020, Additional history exists Diabetic Eye Exam 04/01/2024 04/01/2023, , 06/02/2018, Additional history exists GFR 04/24/2024 10/24/2023, 08/25, 08/11/2023, Additional history exists HbA1c 05/20/2024 11/19/2023, 06/27, 03/21/2023, Additional history exists CKD HGB USE SMARTSET 85700 09/18/202409/18, 09/19/2023, 08/11/2023, Additional history exists Adult [...] filedocumented as of this encounter Care Teams Lead Radiologic Technologist Relationship Specialty Start Date End Date Art Cavazos DO [address] [place] [address] PCP - General Internal Medicine 11/19/23 documented as of this encounter
--- OUTSIDE RECORDS SUMMARY | 2024-05-09 10:44 | External Medical Summary | Summary of Care ---
Author Name Unknown Organization [facility] Address [address] [place] [address] Phone [phone] Care Team Providers Care Forge Utility Worker Name Role Phone Art Cavazos DO Primary Care Provider [phone] Encounter Details Date Type Department Care Team (Late st Contact Info) Description 02/12/2024 Documentation HEALTH & WELLNESS Mayra Colon, Health Appraisal Coordinator Allergies Active Allergy Reactions Criticality Noted Date Comments Amoxicillin Fever,Rash Medium 12/29/2013 documented as of this encounter (statuses as of 02/12/2024) Medications Medication Sig Dispensed Refills Start Date End Date Status CloutexTOUCH ULTRA SYSTEM W/DEVICE KITIndications:DM type 2, goal [...] as of this encounter (statuses as of 02/12/2024) Active Problems Problem Noted Date Diagnosed Date [...] as of this encounter (statuses as of 02/12/2024) Resolved Problems Problem Noted Date Diagnosed Date [...] as of this encounter (statuses as of 02/12/2024) Immunizations Name Administration Dates Next Due COVID-19 mRNA, LNP-s, No Pre serve, 2-Dose Series (Moderna) 08/02/2020,07/05/2020 COVID-19, MRNA-LNP, 23-24, P F, 30 MCG/0.3 mL, 12 YRS AND ABOVE, IM [facility]) 03/21/2023 COVID-19, mRNA, LNP-s, PF, B ooster, [...] No 03/21/2023 Does the household have a [facility] center[facility] source of income? (Household - for [...] encounter Progress Notes * Mayra Colon Health Appraisal Coordinator - 02/12/2024 1:26 PM EDT SESSION TYPE: Group exercise session: Exercise Subtype or Modality: Cardiovascular Training Patient completed group exercise session which included 45 minutes of walking. documented in this encounter Plan of Treatment Upcoming Encounters Date Type Department Care Team (Late st Contact Info) Description 03/01/2024 8:30 AM EDT Office Visit Rheumatology [facility] [address] [place], [place] [address] Sarah Stroud CRNP [address] [place], [place] [address] 03/19/2024 1:45 PM EDT Office Visit Dermatology [facility] [address] [place] [address] Nicolas Moody MD [address] [place] [address] 03/31/2024 2:00 PM EST Nutrition Services Nutrition Services 65 [facility] 293 [place] [address] Lisa Ma RDN [address] [facility] [address] [place] [address] 05/05/2024 8:30 AM EST Therapy Neuropsychology [facility] 200 [facility] [place] [address] Enrique Kay, PhD 200 [facility] [place] [address] 10/15/2024 2:00 PM EDT Nurse Only Ancillary 65 [facility] 293 [place] [address] College, Nurse Annual Wellness Visit [address] [address] 11/01/2024 2:20 PM EDT Office Visit Nephrology, [facility] 200 [facility] [place] [address] Baldo Mackey MD 200 [facility] [place] [address] Scheduled Procedures Name Priority Associated Diagnoses Date/Ti [...] Additional history exists CKD PHOS USE SMARTSET 74444 03/21/202402/24, 12/20/2021, 10/03/2021, Additional history exists Diabetic Foot Exam 03/21/2024 03/21/2023, 1 , 10/16/2020, Additional history exists Diabetic Eye Exam 04/01/2024 04/01/2023, , 06/02/2018, Additional history exists GFR 04/24/2024 10/24/2023, 08/25, 08/11/2023, Additional history exists HbA1c 05/20/2024 11/19/2023, 06/27, 03/21/2023, Additional history exists CKD HGB USE SMARTSET 92430 09/18/202409/18, 09/19/2023, 08/11/2023, Additional history exists Adult [...] filedocumented as of this encounter Care Teams Forge Utility Worker Relationship Specialty Start Date End Date Art Cavazos DO [address] [place] [address] PCP - General Internal Medicine 11/19/23 documented as of this encounter
--- OUTSIDE RECORDS SUMMARY | 2024-05-09 10:44 | External Medical Summary | Summary of Care ---
Author Name Unknown Organization [facility] Address [address] [place] [address] Phone [phone] Care Team Providers Care Centrifuge Separator Tender Name Role Phone Art Cavazos DO Primary Care Provider [phone] Encounter Details Date Type Department Care Team (Late st Contact Info) Description 01/22/2024 Documentation HEALTH & WELLNESS Mayra Colon, Health Clam Bed Laborer Allergies Active Allergy Reactions Criticality Noted Date Comments Amoxicillin Fever,Rash Medium 12/29/2013 documented as of this encounter (statuses as of 01/22/2024) Medications Medication Sig Dispensed Refills Start Date End Date Status PeekyTOUCH ULTRA SYSTEM W/DEVICE KITIndications:DM type 2, goal [...] as of this encounter (statuses as of 01/22/2024) Active Problems Problem Noted Date Diagnosed Date [...] as of this encounter (statuses as of 01/22/2024) Resolved Problems Problem Noted Date Diagnosed Date [...] as of this encounter (statuses as of 01/22/2024) Immunizations Name Administration Dates Next Due COVID-19 mRNA, LNP-s, No Pre serve, 2-Dose Series (Moderna) 08/02/2020,07/05/2020 COVID-19, MRNA-LNP, 23-24, P F, 30 MCG/0.3 mL, 12 YRS AND ABOVE, IM (Ewirelessgear-Comirnat) 03/21/2023 COVID-19, mRNA, LNP-s, PF, B ooster, [...] encounter Progress Notes * Mayra Colon Health Clam Bed Laborer - 01/22/2024 3:23 PM EDT SESSION TYPE: Group exercise session: Exercise Subtype or Modality: Cardiovascular Training Patient completed 45 minutes of cardio which consisted of walking. documented in this encounter Plan of Treatment Upcoming Encounters Date Type Department Care Team (Late st Contact Info) Description 03/01/2024 8:30 AM EDT Office Visit Rheumatology [facility] [address] [place] [address] Sarah Stroud CRNP [address] [place] [address] 03/19/2024 1:45 PM EDT Office Visit Dermatology [facility] 200 [facility] [place] [address] Nicolas Moody MD 200 [facility] [place] [address] 03/31/2024 2:00 PM EST Nutrition Services Nutrition Services [address] [place] [address] Lisa Ma RDN 106 [place] [address] 05/05/2024 8:30 AM EST Therapy Neuropsychology [facility] 200 [facility] [place] [address] Enrique Kay, PhD 200 [facility] [place] [address] 10/15/2024 2:00 PM EDT Nurse Only Ancillary [address] [address] College, Nurse Annual Wellness Visit [address] [address] 11/01/2024 2:20 PM EDT Office Visit Nephrology, [facility] [address] [facility] [place] [address] Balod Mackey MD [address] [facility] [place] [address] Scheduled Procedures Name Priority Associated Diagnoses Date/Ti [...] Additional history exists CKD PHOS USE SMARTSET 58571 03/21/202402/24, 12/20/2021, 10/03/2021, Additional history exists Diabetic Foot Exam 03/21/2024 03/21/2023, 1 , 10/16/2020, Additional history exists Diabetic Eye Exam 04/01/2024 04/01/2023, , 06/02/2018, Additional history exists GFR 04/24/2024 10/24/2023, 08/25, 08/11/2023, Additional history exists HbA1c 05/20/2024 11/19/2023, 06/27, 03/21/2023, Additional history exists CKD HGB USE SMARTSET 55962 09/18/202409/18, 09/19/2023, 08/11/2023, Additional history exists Adult [...] filedocumented as of this encounter Care Teams Centrifuge Separator Tender Relationship Specialty Start Date End Date Art Cavazos DO [address] [place] [address] PCP - General Internal Medicine 11/19/23 documented as of this encounter
--- OUTSIDE RECORDS SUMMARY | 2024-05-09 10:44 | External Medical Summary | Summary of Care ---
Author Name Unknown Organization [facility] Address [address] [place] [address] Phone [phone] Care Team Providers Care Tailor Women'S Garment Alteration Name Role Phone Art Cavazos DO Primary Care Provider [phone] Encounter Details Date Type Department Care Team (Late st Contact Info) Description 01/27/2024 Documentation HEALTH & WELLNESS Mayra Colon, Health Cash Crop Farmer Allergies Active Allergy Reactions Criticality Noted Date Comments Amoxicillin Fever,Rash Medium 12/29/2013 documented as of this encounter (statuses as of 01/27/2024) Medications Medication Sig Dispensed Refills Start Date End Date Status SnowBallTOUCH ULTRA SYSTEM W/DEVICE KITIndications:DM type 2, goal [...] as of this encounter (statuses as of 01/27/2024) Active Problems Problem Noted Date Diagnosed Date [...] as of this encounter (statuses as of 01/27/2024) Resolved Problems Problem Noted Date Diagnosed Date [...] as of this encounter (statuses as of 01/27/2024) Immunizations Name Administration Dates Next Due COVID-19 mRNA, LNP-s, No Pre serve, 2-Dose Series (Moderna) 08/02/2020,07/05/2020 COVID-19, MRNA-LNP, 23-24, P F, 30 MCG/0.3 mL, 12 YRS AND ABOVE, IM ([facility] 03/21/2023 COVID-19, mRNA, LNP-s, PF, B [...] No 03/21/2023 Does the household have a [facility] medical center[facility] source of income? (Household [...] encounter Progress Notes * Mayra Colon Health Cash Crop Farmer - 01/27/2024 3:37 PM EDT SESSION TYPE: Group exercise session: [...] 03/01/2024 8:30 AM EDT Office Visit Rheumatology [facility] [address] [place] [address] Sarah Stroud CRNP [address] [place] [address] 03/19/2024 1:45 PM EDT Office [facility] [place] [address] [address] Nicolas Moody MD [address] [place] [address] 03/31/2024 2:00 PM EST Nutrition Services Nutrition Services 65 [facility] 293 [place] [address] iLsa Ma RDN 106 [facility] [place] [address] 05/05/2024 8:30 AM EST Therapy Neuropsychology [facility] 200 [facility] [place] [address] Enrique Kay, PhD 200 [facility] [place] [address] 10/15/2024 2:00 PM EDT Nurse Only Ancillary 65 [facility] 293 [place] [address] College, Nurse Annual Wellness Visit [address] [address] 11/01/2024 2:20 PM EDT Office Visit Nephrology, [facility] 200 [facility] [place] [address] Baldo Mackey MD 200 [facility] [place] [address] Scheduled Procedures Name Priority Associated Diagnoses Date/Ti [...] Additional history exists CKD PHOS USE SMARTSET 44348 03/21/202402/24, 12/20/2021, 10/03/2021, Additional history exists Diabetic Foot Exam 03/21/2024 03/21/2023, 1 , 10/16/2020, Additional history exists Diabetic Eye Exam 04/01/2024 04/01/2023, , 06/02/2018, Additional history exists GFR 04/24/2024 10/24/2023, 08/25, 08/11/2023, Additional history exists HbA1c 05/20/2024 11/19/2023, 06/27, 03/21/2023, Additional history exists CKD HGB USE SMARTSET 35627 09/18/202409/18, 09/19/2023, 08/11/2023, Additional history exists Adult [...] filedocumented as of this encounter Care Teams Tailor Women'S Garment Alteration Relationship Specialty Start Date End Date Art Cavazos DO [address] [facility] [place] [address] PCP - General Internal Medicine 11/19/23 documented as of this encounter
--- OUTSIDE RECORDS SUMMARY | 2024-05-09 10:45 | External Medical Summary | Summary of Care ---
Author Name Unknown Organization [facility] Address [address] [place] [address] Phone [phone] Care Team Providers Care Music Executive Name Role Phone Art Cavazos DO Primary Care Provider [phone] Encounter Details Date Type Department Care Team (Late st Contact Info) Description 12/03/2023 Documentation HEALTH & WELLNESS Mayra Cloon, Health Billing Department Supervisor Allergies Active Allergy Reactions Criticality Noted Date Comments Amoxicillin Fever,Rash Medium 12/29/2013 documented as of this encounter (statuses as of 12/03/2023) Medications Medication Sig Dispensed Refills Start Date End Date Status Lit Building DirectoryTOUCH ULTRA SYSTEM W/DEVICE KITIndications:DM type 2, goal [...] IN 24 HOURS. 30 Tablet 5 01/03/2023 01/03/2024 Active OneTouch Ultra In Vitro Strip (Glucose [...] as of this encounter (statuses as of 12/03/2023) Active Problems Problem Noted Date Diagnosed Date [...] as of this encounter (statuses as of 12/03/2023) Resolved Problems Problem Noted Date Diagnosed Date [...] as of this encounter (statuses as of 12/03/2023) Immunizations Name Administration Dates Next Due COVID-19 mRNA, LNP-s, No Pre serve, 2-Dose Series (Moderna) 08/02/2020,07/05/2020 COVID-19, MRNA-LNP, 23-24, P F, 30 MCG/0.3 mL, 12 YRS AND ABOVE, IM (PeopleString-Comirnat) 03/21/2023 COVID-19, mRNA, LNP-s, PF, B ooster, [...] encounter Progress Notes * Mayra Colon Health Billing Department Supervisor - 12/03/2023 3:48 PM EDT SESSION TYPE: Group exercise session: [...] had no complaints. * Mayra Colon Health Billing Department Supervisor - 12/03/2023 3:46 PM EDT SESSION TYPE: Group exercise session: Exercise Subtype or Modality: Balance Training Patient completed a group exercise session which consisted of balance training. All exercises included improving balance and strength of lower extremities. He tolerated the exercises well and had no complaints. documented in this encounter Plan of Treatment Upcoming Encounters Date Type Department Care Team (Late st Contact Info) Description 12/12/2023 1:00 PM EDT Nutrition Services Nutrition Services [address] [place] [address] Lisa Ma RDN 106 [facility] [place] [address] 12/15/2023 11:00 AM EDT Cardiac Studies Cardiac Studies, [facility] 132 [facility] [place] [address] 03/01/2024 8:30 AM EDT Office Visit Rheumatology [place] [address] [employer] [employer] [facility] [place] [address] Sarah Stroud CRNP [address] [place] [address] [place] [address] 03/19/2024 1:45 PM EDT Office Visit Dermatology [facility] 200 [facility] [address] [place] [address] Nicolas Moody MD 200 [facility] [address] 05/05/2024 8:30 AM EST Therapy Neuropsychology [facility] [address] [place] [address] Enrique Kay, PhD 200 [facility] [address] 10/15/2024 2:00 PM EDT Nurse Only Ancillary [address] [place] [address] College, Nurse Annual Wellness Visit [address] [place] [address] 11/01/2024 2:20 PM EDT Office Visit Nephrology, [facility] [address] [address] Baldo Mackey MD 200 [facility] [place] [address] Scheduled Procedures Name Priority Associated Diagnoses Date/Ti [...] Additional history exists CKD PHOS USE SMARTSET 03914 03/21/202402/24, 12/20/2021, 10/03/2021, Additional history exists Diabetic Foot Exam 03/21/2024 03/21/2023, 1 , 10/16/2020, Additional history exists Diabetic Eye Exam 04/01/2024 04/01/2023, , 06/02/2018, Additional history exists GFR 04/24/2024 10/24/2023, 08/25, 08/11/2023, Additional history exists HbA1c 05/20/2024 11/19/2023, 06/27, 03/21/2023, Additional history exists CKD HGB USE SMARTSET 63064 09/18/202409/18, 09/19/2023, 08/11/2023, Additional history exists Albumin/Creatinine Ratio 10/09/2024 024, 11/18/2022, 11/20/2021, Additional [...] filedocumented as of this encounter Care Teams Music Executive Relationship Specialty Start Date End Date Art Cavazos DO 293 [facility] [place] [address] PCP - General Internal Medicine 11/19/23 documented as of this encounter
--- OUTSIDE RECORDS SUMMARY | 2024-05-09 10:45 | External Medical Summary | Summary of Care ---
Author Name Unknown Organization [facility] Address [address] [place] [address] Phone [phone] Care Team Providers Care Audio Visual Technician Name Role Phone Art Cavazos DO Primary Care Provider [phone] Encounter Details Date Type Department Care Team (Late st Contact Info) Description 12/10/2023 Documentation HEALTH & WELLNESS Mayra Colon, Health Assistant Broker Allergies Active Allergy Reactions Criticality Noted Date Comments Amoxicillin Fever,Rash Medium 12/29/2013 documented as of this encounter (statuses as of 12/10/2023) Medications Medication Sig Dispensed Refills Start Date End Date Status NeGoBuYTOUCH ULTRA SYSTEM W/DEVICE KITIndications:DM type 2, goal [...] as of this encounter (statuses as of 12/10/2023) Active Problems Problem Noted Date Diagnosed Date [...] as of this encounter (statuses as of 12/10/2023) Resolved Problems Problem Noted Date Diagnosed Date [...] as of this encounter (statuses as of 12/10/2023) Immunizations Name Administration Dates Next Due COVID-19 mRNA, LNP-s, No Pre serve, 2-Dose Series (Moderna) 08/02/2020,07/05/2020 COVID-19, MRNA-LNP, 23-24, P F, 30 MCG/0.3 mL, 12 YRS AND ABOVE, IM (Tilera-Comirnat) 03/21/2023 COVID-19, mRNA, LNP-s, PF, B ooster, [...] encounter Progress Notes * Mayra Colon Health Assistant Broker - 12/10/2023 3:41 PM EDT SESSION TYPE: Group exercise session: [...] had no complaints. * Mayra Colon Health Assistant Broker - 12/10/2023 3:41 PM EDT SESSION TYPE: Group exercise session: [...] PM EDT Nutrition Services Nutrition Services [address] [place] [address] Lisa Ma RDN 106 [facility] [place] [address] 12/15/2023 11:00 AM EDT Cardiac Studies Cardiac Studies, [facility] 132 [facility] [place] [address] 03/01/2024 8:30 AM EDT Office Visit Rheumatology [place] [address] [facility] [place] [address] Sarah Stroud CRNP [address] [place] [address] [place] [address] 03/19/2024 1:45 PM EDT Office Visit Dermatology [facility] 200 [facility] [address] [place] [address] Nicolas Moody MD 200 [facility] [place] [address] 05/05/2024 8:30 AM EST Therapy Neuropsychology [facility] [address] [place] [address] Enrique Kay, PhD 200 [facility] [place] [address] 10/15/2024 2:00 PM EDT Nurse Only Ancillary [address] [place] [address] College, Nurse Annual Wellness Visit [address] [place] [address] 11/01/2024 2:20 PM EDT Office Visit Nephrology, [facility] [address] [address] Baldo Mackey MD 200 [facility] [place] [address] Scheduled Procedures Name Priority Associated Diagnoses Date/Ti [...] Additional history exists CKD PHOS USE SMARTSET 65715 03/21/202402/24, 12/20/2021, 10/03/2021, Additional history exists Diabetic Foot Exam 03/21/2024 03/21/2023, 1 , 10/16/2020, Additional history exists Diabetic Eye Exam 04/01/2024 04/01/2023, , 06/02/2018, Additional history exists GFR 04/24/2024 10/24/2023, 08/25, 08/11/2023, Additional history exists HbA1c 05/20/2024 11/19/2023, 06/27, 03/21/2023, Additional history exists CKD HGB USE SMARTSET 55964 09/18/202409/18, 09/19/2023, 08/11/2023, Additional history exists Albumin/Creatinine [...] filedocumented as of this encounter Care Teams Audio Visual Technician Relationship Specialty Start Date End Date Art Cavazos DO 293 [place] [address] PCP - General Internal Medicine 11/19/23 documented as of this encounter
--- OUTSIDE RECORDS SUMMARY | 2024-05-09 10:45 | External Medical Summary | Summary of Care ---
Author Name Unknown Organization [facility] Address [address] [place] [address] Phone [phone] Care Team Providers Care Enterprise Security Architect Name Role Phone Art Cavazos DO Primary Care Provider [phone] Encounter Details Date Type Department Care Team (Late st Contact Info) Description 12/03/2023 Documentation HEALTH & WELLNESS Mayra Colon, Health Beauty School Instructor Allergies Active Allergy Reactions Criticality Noted Date Comments Amoxicillin Fever,Rash Medium 12/29/2013 documented as of this encounter (statuses as of 12/03/2023) Medications Medication Sig Dispensed Refills Start Date End Date Status VozeemeTOUCH ULTRA SYSTEM W/DEVICE KITIndications:DM type 2, goal [...] MCG/0.3 mL, 12 YRS AND ABOVE, IM ([employer]-Comirnat) 03/21/2023 COVID-19, mRNA, LNP-s, PF, B ooster, [...] encounter Progress Notes * Mayra Colon Health Beauty School Instructor - 12/03/2023 3:48 PM EDT SESSION TYPE: [...] had no complaints. * Mayra Colon Health Beauty School Instructor - 12/03/2023 3:46 PM EDT SESSION TYPE: [...] PM EDT Nutrition Services Nutrition Services [address] [place] [address] Lisa Ma RDN 106 [facility] [place] [address] 12/15/2023 11:00 AM EDT Cardiac Studies Cardiac Studies, [facility] 132 [facility] [place] [address] 03/01/2024 8:30 AM EDT Office Visit Rheumatology [place] [address] [facility] [place] [address] Sarah Stroud CRNP [address] [place] [address] [place] [address] 03/19/2024 1:45 PM EDT Office Visit Dermatology [facility] 200 [facility] [address] [place] [address] Nicolas Moody MD 200 [place] [address] 05/05/2024 8:30 AM EST Therapy Neuropsychology [facility] [address] [place] [address] Enrique Kay, PhD 200 [place] [address] 10/15/2024 2:00 PM EDT Nurse Only Ancillary [address] [place] [address] College, Nurse Annual Wellness Visit [address] [place] [address] 11/01/2024 2:20 PM EDT Office Visit Nephrology, [facility] [address] [address] Baldo Mackey MD 200 [facility] [place] [address] Scheduled Procedures Name Priority Associated Diagnoses Date/Ti [...] Additional history exists CKD PHOS USE SMARTSET 31257 03/21/202402/24, 12/20/2021, 10/03/2021, Additional history exists Diabetic Foot Exam 03/21/2024 03/21/2023, 1 , 10/16/2020, Additional history exists Diabetic Eye Exam 04/01/2024 04/01/2023, , 06/02/2018, Additional history exists GFR 04/24/2024 10/24/2023, 08/25, 08/11/2023, Additional history exists HbA1c 05/20/2024 11/19/2023, 06/27, 03/21/2023, Additional history exists CKD HGB USE SMARTSET 30275 09/18/202409/18, 09/19/2023, 08/11/2023, Additional history exists Albumin/Creatinine [...] filedocumented as of this encounter Care Teams Enterprise Security Architect Relationship Specialty Start Date End Date Art Cavazos DO 293 [place] [address] PCP - General Internal Medicine 11/19/23 documented as of this encounter
--- OUTSIDE RECORDS SUMMARY | 2024-05-09 10:45 | External Medical Summary | Summary of Care ---
Author Name Unknown Organization [facility] Address [address] [place] [address] Phone [phone] Care Team Providers Care Chaperon Name Role Phone Art Cavazos DO Primary Care Provider [phone] Encounter Details Date Type Department Care Team (Late st Contact Info) Description 12/09/2023 Documentation HEALTH & WELLNESS Mayra Colon, Health Financial Assistance Specialist Allergies Active Allergy Reactions Criticality Noted Date Comments Amoxicillin Fever,Rash Medium 12/29/2013 documented as of this encounter (statuses as of 12/09/2023) Medications Medication Sig Dispensed Refills Start Date End Date Status Medivantix TechnologiesTOUCH ULTRA SYSTEM W/DEVICE KITIndications:DM type 2, [...] as of this encounter (statuses as of 12/09/2023) Active Problems Problem Noted Date Diagnosed Date [...] as of this encounter (statuses as of 12/09/2023) Resolved Problems Problem Noted Date Diagnosed Date [...] as of this encounter (statuses as of 12/09/2023) Immunizations Name Administration Dates Next Due COVID-19 mRNA, LNP-s, No Pre serve, 2-Dose Series (Moderna) 08/02/2020,07/05/2020 COVID-19, MRNA-LNP, 23-24, P F, 30 MCG/0.3 mL, 12 YRS AND ABOVE, IM (Osmetech-Comirnat) 03/21/2023 COVID-19, mRNA, LNP-s, PF, B ooster, [...] encounter Progress Notes * Mayra Colon Health Financial Assistance Specialist - 12/09/2023 3:28 PM EDT SESSION TYPE: Group exercise session: Exercise Subtype or Modality: Flexibility Training Patient completed a group exercise session which consisted of flexibility training. All exercise was focused on improving flexibility and mobility of upper and lower body. He tolerated exercise well and had no complaints. * Mayra Colon Health Financial Assistance Specialist - 12/09/2023 3:28 PM EDT SESSION TYPE: Group exercise session: Exercise Subtype or Modality: Resistance Training Patient completed a group exercise session which consisted of resistance training. Body weight and dumbbells were used for the exercises. He tolerated exercise well and had no complaints documented in this encounter Plan of Treatment Upcoming Encounters Date Type Department Care Team (Late st Contact Info) Description 12/12/2023 1:00 PM EDT Nutrition Services Nutrition Services 65 [facility] 293 [facility], [place] [address] Lisa Ma, FROYLAN 106 [facility] [place] [address] 12/15/2023 11:00 AM EDT Cardiac Studies Cardiac Studies, [facility] 132 [place] [address] 03/01/2024 8:30 AM EDT Office Visit Rheumatology [place] [address] [facility] [place] [address] Sarah Stroud CRNP [facility] [place] [address] 03/19/2024 1:45 PM EDT Office Visit Dermatology [facility] [address] [place] [address] Nicolas Moody MD [address] [place] [address] 05/05/2024 8:30 AM EST Therapy Neuropsychology [facility] [address] [place] [address] Enrique Kay, PhD 200 [facility] [address] [place] [address] 10/15/2024 2:00 PM EDT Nurse Only Ancillary 65 [facility] 293 [facility], [place] [address] College, Nurse Annual Wellness Visit 65 [address] [address] 11/01/2024 2:20 PM EDT Office Visit Nephrology, [facility] [address] [place] [address] Baldo Mackey MD [address] [place] [address] Scheduled Procedures Name Priority Associated Diagnoses Date/Ti me ESOPHAGOGASTRODUODENOSCOPY ( EGD), FLEXIBLE, TRANSORAL, DIAGNOSTIC Recall Anderson's esophagus with esophagitis Health Maintenance Due Date Last Done Comments Zoster Vaccines (1 of 2) 1990 COVID-19 Vaccine ( season) 2023 03/21/2023, 05/31/2022, 11/09/2021, Additional history exists Anderson's Esophagus Surveilance 10/26/2023 10/25/2020, 10/25/2020, 04/09/2018 Influenza Vaccine (FLU shot) (#1) 2024 03/21/2023, 02/04/2022, 03/27/2021, Additional history exists CKD PHOS USE SMARTSET 61775 03/21/202402/24, 12/20/2021, 10/03/2021, Additional history exists Diabetic Foot Exam 03/21/2024 03/21/2023, 1 , 10/16/2020, Additional history exists Diabetic Eye Exam 04/01/2024 04/01/2023, , 06/02/2018, Additional history exists GFR 04/24/2024 10/24/2023, 08/25, 08/11/2023, Additional history exists HbA1c 05/20/2024 11/19/2023, 06/27, 03/21/2023, Additional history exists CKD HGB USE SMARTSET 33615 09/18/202409/18, 09/19/2023, 08/11/2023, Additional history exists Albumin/Creatinine [...] filedocumented as of this encounter Care Teams Chaperon Relationship Specialty Start Date End Date Art Cavazos DO [address] [place] [address] PCP - General Internal Medicine 11/19/23 documented as of this encounter
--- OUTSIDE RECORDS SUMMARY | 2024-05-09 10:45 | External Medical Summary | Summary of Care ---
Author Name Unknown Organization [facility] Address [address] [place] [address] Phone [phone] Care Team Providers Care Tool Filer Hand Name Role Phone Art Cavazos DO Primary Care Provider [phone] Encounter Details Date Type Department Care Team (Late st Contact Info) Description 12/24/2023 Documentation HEALTH & WELLNESS Mayra Colon, Health Pedal Assembler Allergies Active Allergy Reactions Criticality Noted Date Comments Amoxicillin Fever,Rash Medium 12/29/2013 documented as of this encounter (statuses as of 12/24/2023) Medications Medication Sig Dispensed Refills Start Date End Date Status Cotton & Reed DistilleryTOUCH ULTRA SYSTEM W/DEVICE KITIndications:DM type 2, goal [...] as of this encounter (statuses as of 12/24/2023) Active Problems Problem Noted Date Diagnosed Date [...] as of this encounter (statuses as of 12/24/2023) Resolved Problems Problem Noted Date Diagnosed Date [...] as of this encounter (statuses as of 12/24/2023) Immunizations Name Administration Dates Next Due COVID-19 mRNA, LNP-s, No Pre serve, 2-Dose Series (Moderna) 08/02/2020,07/05/2020 COVID-19, MRNA-LNP, 23-24, P F, 30 MCG/0.3 mL, 12 YRS AND ABOVE, IM (TalkSession-Comirnat) 03/21/2023 COVID-19, mRNA, LNP-s, PF, B ooster, [...] encounter Progress Notes * Mayra Colon Health Pedal Assembler - 12/24/2023 3:51 PM EDT SESSION TYPE: Group exercise session: Exercise Subtype or Modality: Balance Training Patient completed a group exercise session which consisted of balance training. All exercises included improving balance and strength of lower extremities. He tolerated the exercises well and had no complaints. * Mayra Colon Health Pedal Assembler - 12/24/2023 3:51 PM EDT SESSION TYPE: Group exercise session: [...] 03/01/2024 8:30 AM EDT Office Visit Rheumatology [place] [address] [facility] [place] [address] Sarah Stroud CRNP 2520 [facility] [place] [address] 03/19/2024 1:45 PM EDT Office Visit Dermatology [facility] [address] [place] [address] Nicolas Moody MD 200 [facility] [place] [address] 03/31/2024 2:00 PM EST Nutrition Services Nutrition Services [address] [place] [address] Lisa Ma RDN [address] [place] [address] 05/05/2024 8:30 AM EST Therapy Neuropsychology [facility] [address] [place] [address] Enrique Kay, PhD 200 [facility] [place] [address] 10/15/2024 2:00 PM EDT Nurse Only Ancillary 65 [facility] 293 [place] [address] College, Nurse Annual Wellness Visit [address] [place] [address] 11/01/2024 2:20 PM EDT Office Visit Nephrology, [facility] [address] [place] [address] Baldo aMckey MD 200 [facility] [address] [place] [address] Scheduled Procedures Name Priority Associated Diagnoses Date/Ti [...] Additional history exists CKD PHOS USE SMARTSET 96880 03/21/202402/24, 12/20/2021, 10/03/2021, Additional history exists Diabetic Foot Exam 03/21/2024 03/21/2023, 1 , 10/16/2020, Additional history exists Diabetic Eye Exam 04/01/2024 04/01/2023, , 06/02/2018, Additional history exists GFR 04/24/2024 10/24/2023, 08/25, 08/11/2023, Additional history exists HbA1c 05/20/2024 11/19/2023, 06/27, 03/21/2023, Additional history exists CKD HGB USE SMARTSET 33660 09/18/202409/18, 09/19/2023, 08/11/2023, Additional history exists Albumin/Creatinine [...] filedocumented as of this encounter Care Teams Tool Filer Hand Relationship Specialty Start Date End Date Art Cavazos DO [address] [place] [address] PCP - General Internal Medicine 11/19/23 documented as of this encounter
--- OUTSIDE RECORDS SUMMARY | 2024-05-09 10:45 | External Medical Summary | Summary of Care ---
Author Name Unknown Organization [facility] Address [address] [place] [address] Phone [phone] Care Team Providers Care Corn Sheller Operator Name Role Phone Art Cavazos DO Primary Care Provider Encounter Details Date Type Department Care Team (Late st Contact Info) Description 12/25/2023 Documentation HEALTH & WELLNESS Mayra Colon, Health Computer Numerical Control Programmer Allergies Active Allergy Reactions Criticality Noted Date Comments Amoxicillin Fever,Rash Medium 12/29/2013 documented as of this encounter (statuses as of 12/25/2023) Medications Medication Sig Dispensed Refills Start Date End Date Status DropThoughtTOUCH ULTRA SYSTEM W/DEVICE KITIndications:DM type 2, goal [...] as of this encounter (statuses as of 12/25/2023) Active Problems Problem Noted Date Diagnosed Date [...] as of this encounter (statuses as of 12/25/2023) Resolved Problems Problem Noted Date Diagnosed Date [...] as of this encounter (statuses as of 12/25/2023) Immunizations Name Administration Dates Next Due COVID-19 mRNA, LNP-s, No Pre serve, 2-Dose Series (Moderna) 08/02/2020,07/05/2020 COVID-19, MRNA-LNP, 23-24, P F, 30 MCG/0.3 mL, 12 YRS AND ABOVE, IM (Invested.in-Comirnat) 03/21/2023 COVID-19, mRNA, LNP-s, PF, B ooster, [...] encounter Progress Notes * Mayra Colon Health Computer Numerical Control Programmer - 12/25/2023 1:39 PM EDT SESSION TYPE: Group exercise session: Exercise Subtype or Modality: Cardiovascular Training Patient completed a group exercise session which consisted of cardiovascular training. He walked for 45 minutes. documented in this encounter Plan of Treatment Upcoming Encounters Date Type Department Care Team (Late st Contact Info) Description 03/01/2024 8:30 AM EDT Office Visit Rheumatology [facility] [address] [place] [address] Sarah Stroud CRNP [address] [place] [address] 03/19/2024 1:45 PM EDT Office Visit Dermatology [facility] [place] 200 [facility] [place] [address] Nicolas Moody MD 200 [facility] [address] 03/31/2024 2:00 PM EST Nutrition Services Nutrition Services [address] [place] [address] Lisa Ma RDN 106 [place] [address] 05/05/2024 8:30 AM EST Therapy Neuropsychology [facility] 200 [facility] [place] [address] Enrique Kay, PhD 200 [facility] [place] [address] 10/15/2024 2:00 PM EDT Nurse Only Ancillary [address] [address] College, Nurse Annual Wellness Visit [address] [address] 11/01/2024 2:20 PM EDT Office Visit Nephrology, [facility] 200 [facility] [place] [address] Baldo Mackey MD 200 [facility] [place] [address] Scheduled Procedures Name Priority Associated Diagnoses Date/Ti [...] Additional history exists CKD PHOS USE SMARTSET 71825 03/21/202402/24, 12/20/2021, 10/03/2021, Additional history exists Diabetic Foot Exam 03/21/2024 03/21/2023, 1 , 10/16/2020, Additional history exists Diabetic Eye Exam 04/01/2024 04/01/2023, , 06/02/2018, Additional history exists GFR 04/24/2024 10/24/2023, 08/25, 08/11/2023, Additional history exists HbA1c 05/20/2024 11/19/2023, 06/27, 03/21/2023, Additional history exists CKD HGB USE SMARTSET 97263 09/18/202409/18, 09/19/2023, 08/11/2023, Additional history exists Albumin/Creatinine [...] filedocumented as of this encounter Care Teams Corn Sheller Operator Relationship Specialty Start Date End Date Art Cavazos DO [address] [place] [address] PCP - General Internal Medicine 11/19/23 documented as of this encounter
--- OUTSIDE RECORDS SUMMARY | 2024-05-09 10:45 | External Medical Summary | Summary of Care ---
Author Name Unknown Organization [facility] Address [address] [place] [address] Phone [phone] Care Team Providers Care Jaw Skinner Name Role Phone Art Cavazos DO Primary Care Provider [phone] Encounter Details Date Type Department Care Team (Late st Contact Info) Description 12/16/2023 Documentation HEALTH & WELLNESS Mayra Colon, Health Supervisor Livestock Yard Allergies Active Allergy Reactions Criticality Noted Date Comments Amoxicillin Fever,Rash Medium 12/29/2013 documented as of this encounter (statuses as of 12/16/2023) Medications Medication Sig Dispensed Refills Start Date End Date Status LabourNetTOUCH ULTRA SYSTEM W/DEVICE KITIndications:DM type 2, goal [...] as of this encounter (statuses as of 12/16/2023) Active Problems Problem Noted Date Diagnosed Date [...] as of this encounter (statuses as of 12/16/2023) Resolved Problems Problem Noted Date Diagnosed Date [...] as of this encounter (statuses as of 12/16/2023) Immunizations Name Administration Dates Next Due COVID-19 mRNA, LNP-s, No Pre serve, 2-Dose Series (Moderna) 08/02/2020,07/05/2020 COVID-19, MRNA-LNP, 23-24, P F, 30 MCG/0.3 mL, 12 YRS AND ABOVE, IM (Gura Gear-Comirnat) 03/21/2023 COVID-19, mRNA, LNP-s, PF, B ooster, [...] encounter Progress Notes * Mayra Colon Health Supervisor Livestock Yard - 12/16/2023 1:59 PM EDT SESSION TYPE: Group exercise session: [...] 03/01/2024 8:30 AM EDT Office Visit Rheumatology [facility] 43[address] [facility] [place] [address] Sarah Stroud CRNP [address] [place] [address] 03/19/2024 1:45 PM EDT Office Visit Dermatology [place], [place] 200 [place] [address] Nicolas Moody MD 200 [place] [address] 03/31/2024 2:00 PM EST Nutrition Services Nutrition Services [address] [address] Lisa Ma RDN [address] [place] [address] 05/05/2024 8:30 AM EST Therapy Neuropsychology [facility] 200 [place] [address] Enrique Kay, PhD 200 [place] [address] 10/15/2024 2:00 PM EDT Nurse Only Ancillary [address] [address] [place], Nurse Annual Wellness Visit [address] [address] 11/01/2024 2:20 PM EDT Office Visit Nephrology, [facility] [address] [facility] [address] Baldo Mackey MD [address] [facility] [address] Scheduled Procedures Name Priority Associated Diagnoses Date/Ti [...] Additional history exists CKD PHOS USE SMARTSET 18923 03/21/202402/24, 12/20/2021, 10/03/2021, Additional history exists Diabetic Foot Exam 03/21/2024 03/21/2023, 1 , 10/16/2020, Additional history exists Diabetic Eye Exam 04/01/2024 04/01/2023, , 06/02/2018, Additional history exists GFR 04/24/2024 10/24/2023, 08/25, 08/11/2023, Additional history exists HbA1c 05/20/2024 11/19/2023, 06/27, 03/21/2023, Additional history exists CKD HGB USE SMARTSET 43824 09/18/202409/18, 09/19/2023, 08/11/2023, Additional history exists Albumin/Creatinine [...] filedocumented as of this encounter Care Teams Jaw Skinner Relationship Specialty Start Date End Date Art Cavazos DO [address] [place] [address] PCP - General Internal Medicine 11/19/23 documented as of this encounter
--- OUTSIDE RECORDS SUMMARY | 2024-05-09 10:45 | External Medical Summary | Summary of Care ---
Author Name Unknown Organization [facility] Address [address] [place] [address] Phone [phone] Care Team Providers Care Clay Puddler Name Role Phone Art Cavazos DO Primary Care Provider [phone] Encounter Details Date Type Department Care Team (Late st Contact Info) Description 12/23/2023 Documentation HEALTH & WELLNESS Mayra Colon, Health Clinical Research Tech Allergies Active Allergy Reactions Criticality Noted Date Comments Amoxicillin Fever,Rash Medium 12/29/2013 documented as of this encounter (statuses as of 12/23/2023) Medications Medication Sig Dispensed Refills Start Date End Date Status GigMastersTOUCH ULTRA SYSTEM W/DEVICE KITIndications:DM type 2, goal [...] as of this encounter (statuses as of 12/23/2023) Active Problems Problem Noted Date Diagnosed Date [...] as of this encounter (statuses as of 12/23/2023) Resolved Problems Problem Noted Date Diagnosed Date [...] as of this encounter (statuses as of 12/23/2023) Immunizations Name Administration Dates Next Due COVID-19 mRNA, LNP-s, No Pre serve, 2-Dose Series (Moderna) 08/02/2020,07/05/2020 COVID-19, MRNA-LNP, 23-24, P F, 30 MCG/0.3 mL, 12 YRS AND ABOVE, IM (Novelo-Comirnat) 03/21/2023 COVID-19, mRNA, LNP-s, PF, B ooster, [...] encounter Progress Notes * Mayra Colon Health Clinical Research Tech - 12/23/2023 2:01 PM EDT SESSION TYPE: Group exercise session: [...] 03/01/2024 8:30 AM EDT Office Visit Rheumatology [facility] [address] [facility] [place] [address] Sarah Stroud CRNP [address] [place] [address] 03/19/2024 1:45 PM EDT Office Visit Dermatology [place], [place] 200 [place] [address] Nicolas Moody MD 200 [place] [address] 03/31/2024 2:00 PM EST Nutrition Services Nutrition Services [address] [address] Lisa Ma RDN [address] [place] [address] 05/05/2024 8:30 AM EST Therapy Neuropsychology [facility] 200 [place] [address] Enrique Kay, PhD 200 [place] [address] 10/15/2024 2:00 PM EDT Nurse Only Ancillary [address] [address] [place], Nurse Annual Wellness Visit [address] [address] 11/01/2024 2:20 PM EDT Office Visit Nephrology, [facility] [address] [facility] [place] [address] Baldo Mackey MD [address] [place] [address] Scheduled Procedures Name Priority Associated Diagnoses Date/Ti [...] Additional history exists CKD PHOS USE SMARTSET 38225 03/21/202402/24, 12/20/2021, 10/03/2021, Additional history exists Diabetic Foot Exam 03/21/2024 03/21/2023, 1 , 10/16/2020, Additional history exists Diabetic Eye Exam 04/01/2024 04/01/2023, , 06/02/2018, Additional history exists GFR 04/24/2024 10/24/2023, 08/25, 08/11/2023, Additional history exists HbA1c 05/20/2024 11/19/2023, 06/27, 03/21/2023, Additional history exists CKD HGB USE SMARTSET 09198 09/18/202409/18, 09/19/2023, 08/11/2023, Additional history exists Albumin/Creatinine [...] filedocumented as of this encounter Care Teams Clay Puddler Relationship Specialty Start Date End Date Art Cavazos DO [address] [place] [address] PCP - General Internal Medicine 11/19/23 documented as of this encounter
--- OUTSIDE RECORDS SUMMARY | 2024-05-09 10:45 | External Medical Summary | Summary of Care ---
Author Name Unknown Organization [facility] Address [address] [place] [address] Phone [phone] Care Team Providers Care Chief Lifestyle Officer Name Role Phone Art Cavazos DO Primary Care Provider [phone] Encounter Details Date Type Department Care Team (Late st Contact Info) Description 12/11/2023 Documentation HEALTH & WELLNESS Mayra Colon, Health City Marshal Allergies Active Allergy Reactions Criticality Noted Date Comments Amoxicillin Fever,Rash Medium 12/29/2013 documented as of this encounter (statuses as of 12/11/2023) Medications Medication Sig Dispensed Refills Start Date End Date Status MoveratiTOUCH ULTRA SYSTEM W/DEVICE KITIndications:DM type 2, goal [...] as of this encounter (statuses as of 12/11/2023) Active Problems Problem Noted Date Diagnosed Date [...] as of this encounter (statuses as of 12/11/2023) Resolved Problems Problem Noted Date Diagnosed Date [...] as of this encounter (statuses as of 12/11/2023) Immunizations Name Administration Dates Next Due COVID-19 mRNA, LNP-s, No Pre serve, 2-Dose Series (Moderna) 08/02/2020,07/05/2020 COVID-19, MRNA-LNP, 23-24, P F, 30 MCG/0.3 mL, 12 YRS AND ABOVE, IM (Integral Ad Science-Comirnat) 03/21/2023 COVID-19, mRNA, LNP-s, PF, B ooster, [...] encounter Progress Notes * Mayra Colon Health City Marshal - 12/11/2023 2:29 PM EDT SESSION TYPE: Group exercise session: Exercise Subtype or Modality: Cardiovascular Training Patient completed a group exercise class which consisted of cardiovascular exercise. He walked for 45 minutes. documented in this encounter Plan of Treatment Upcoming Encounters Date Type Department Care Team (Late st Contact Info) Description 12/12/2023 1:00 PM EDT Nutrition Services Nutrition Services [address] [place], [place] 293 [facility] [place] [address] Lisa Ma RDN 106 [facility] [place] [id number] 12/15/2023 11:00 AM EDT Cardiac Studies Cardiac Studies, [facility] [place] [address] 03/01/2024 8:30 AM EDT Office Visit Rheumatology [facility] 25[address] [facility] [place] [address] Sarah Stroud CRNP [address] [facility] [place] [address] 03/19/2024 1:45 PM EDT Office Visit Dermatology [facility] 200 [facility] [place] [address] Nicolas Moody MD 200 [facility] [place] [address] 05/05/2024 8:30 AM EST Therapy Neuropsychology [facility] 200 [facility] [place] [address] Enrique Kay, PhD 200 [facility] [place] [address] 10/15/2024 2:00 PM EDT Nurse Only Ancillary 65 [facility] 293 [facility] [place] [address] College, Nurse Annual Wellness Visit [address] [place] [address] 11/01/2024 2:20 PM EDT Office Visit Nephrology, [facility] 200 [facility] [address] [place] [address] Baldo Mackey MD 200 [facility] [place], [place] [address] Scheduled Procedures Name Priority Associated Diagnoses Date/Ti [...] Additional history exists CKD PHOS USE SMARTSET 80312 03/21/202402/24, 12/20/2021, 10/03/2021, Additional history exists Diabetic Foot Exam 03/21/2024 03/21/2023, 1 , 10/16/2020, Additional history exists Diabetic Eye Exam 04/01/2024 04/01/2023, , 06/02/2018, Additional history exists GFR 04/24/2024 10/24/2023, 08/25, 08/11/2023, Additional history exists HbA1c 05/20/2024 11/19/2023, 06/27, 03/21/2023, Additional history exists CKD HGB USE SMARTSET 04167 09/18/202409/18, 09/19/2023, 08/11/2023, Additional history exists Albumin/Creatinine [...] filedocumented as of this encounter Care Teams Chief Lifestyle Officer Relationship Specialty Start Date End Date Art Cavazos DO [address] [place] [address] PCP - General Internal Medicine 11/19/23 documented as of this encounter
--- OUTSIDE RECORDS SUMMARY | 2024-05-09 10:45 | External Medical Summary | Summary of Care ---
Author Name Unknown Organization [facility] Address [address] [place] [address] Phone [phone] Care Team Providers Care Supervisor Heat Treating Name Role Phone Art Cavazos DO Primary Care Provider [phone] Encounter Details Date Type Department Care Team (Late st Contact Info) Description 12/18/2023 Documentation HEALTH & WELLNESS Mayra Colon, Health Surgical Resident Allergies Active Allergy Reactions Criticality Noted Date Comments Amoxicillin Fever,Rash Medium 12/29/2013 documented as of this encounter (statuses as of 12/18/2023) Medications Medication Sig Dispensed Refills Start Date End Date Status Pharmacy DevelopmentTOUCH ULTRA SYSTEM W/DEVICE KITIndications:DM type 2, goal [...] IN 24 HOURS. 30 Tablet 5 01/03/2023 01/16/2024 Active OneTouch Ultra In Vitro Strip (Glucose [...] as of this encounter (statuses as of 12/18/2023) Active Problems Problem Noted Date Diagnosed Date [...] as of this encounter (statuses as of 12/18/2023) Resolved Problems Problem Noted Date Diagnosed Date [...] as of this encounter (statuses as of 12/18/2023) Immunizations Name Administration Dates Next Due COVID-19 mRNA, LNP-s, No Pre serve, 2-Dose Series (Moderna) 08/02/2020,07/05/2020 COVID-19, MRNA-LNP, 23-24, P F, 30 MCG/0.3 mL, 12 YRS AND ABOVE, IM (Grubster-Comirnat) 03/21/2023 COVID-19, mRNA, LNP-s, PF, B ooster, [...] encounter Progress Notes * Mayra Colon Health Surgical Resident - 12/18/2023 2:04 PM EDT SESSION TYPE: Group exercise session: Exercise Subtype or Modality: Cardiovascular Training Patient completed 45 minutes of walking. documented in this encounter Plan of Treatment Upcoming Encounters Date Type Department Care Team (Late st Contact Info) Description 03/01/2024 8:30 AM EDT Office Visit Rheumatology [facility] [address] [place] [address] Sarah Stroud CRNP [address] [place] [address] 03/19/2024 1:45 PM EDT Office Visit Dermatology [facility] [place] [address] [place] [address] Nicolas Moody MD 200 [facility] [place] [address] 03/31/2024 2:00 PM EST Nutrition Services Nutrition Services [address] [place] [address] Lisa Ma RDN 106 [place] [address] 05/05/2024 8:30 AM EST Therapy Neuropsychology [facility] 200 [facility] [place] [address] Enrique Kay, PhD 200 [facility] [place] [address] 10/15/2024 2:00 PM EDT Nurse Only Ancillary [address] [address] College, Nurse Annual Wellness Visit [address] [address] 11/01/2024 2:20 PM EDT Office Visit Nephrology, [facility] 200 [facility] [place] [address] Baldo Mackey MD 200 [facility] [place] [address] Scheduled Procedures Name Priority Associated Diagnoses Date/Ti [...] Additional history exists CKD PHOS USE SMARTSET 72137 03/21/202402/24, 12/20/2021, 10/03/2021, Additional history exists Diabetic Foot Exam 03/21/2024 03/21/2023, 1 , 10/16/2020, Additional history exists Diabetic Eye Exam 04/01/2024 04/01/2023, , 06/02/2018, Additional history exists GFR 04/24/2024 10/24/2023, 08/25, 08/11/2023, Additional history exists HbA1c 05/20/2024 11/19/2023, 06/27, 03/21/2023, Additional history exists CKD HGB USE SMARTSET 03324 09/18/202409/18, 09/19/2023, 08/11/2023, Additional history exists Albumin/Creatinine [...] filedocumented as of this encounter Care Teams Supervisor Heat Treating Relationship Specialty Start Date End Date Art Cavazos DO [address] [place] [address] PCP - General Internal Medicine 11/19/23 documented as of this encounter
--- OUTSIDE RECORDS SUMMARY | 2024-05-09 10:45 | External Medical Summary | Summary of Care ---
Author Name Unknown Organization [facility] Address [address] [place] [address] Phone [phone] Care Team Providers Care Supervisor Electrolytic Tinning Name Role Phone Art Cavazos DO Primary Care Provider [phone] Encounter Details Date Type Department Care Team (Late st Contact Info) Description 12/04/2023 Documentation HEALTH & WELLNESS Mayra Colon, Health Shorer Allergies Active Allergy Reactions Criticality Noted Date Comments Amoxicillin Fever,Rash Medium 12/29/2013 documented as of this encounter (statuses as of 12/04/2023) Medications Medication Sig Dispensed Refills Start Date End Date Status Paloma PharmaceuticalsTOUCH ULTRA SYSTEM W/DEVICE KITIndications:DM type 2, goal [...] as of this encounter (statuses as of 12/04/2023) Active Problems Problem Noted Date Diagnosed Date [...] as of this encounter (statuses as of 12/04/2023) Resolved Problems Problem Noted Date Diagnosed Date [...] as of this encounter (statuses as of 12/04/2023) Immunizations Name Administration Dates Next Due COVID-19 mRNA, LNP-s, No Pre serve, 2-Dose Series (Moderna) 08/02/2020,07/05/2020 COVID-19, MRNA-LNP, 23-24, P F, 30 MCG/0.3 mL, 12 YRS AND ABOVE, IM (Cod[employer]-Comirnat) 03/21/2023 COVID-19, mRNA, LNP-s, PF, B ooster, [...] encounter Progress Notes * Mayra Colon Health Shorer - 12/04/2023 3:59 PM EDT SESSION TYPE: Group exercise session: Exercise Subtype or Modality: Cardiovascular Training Patient completed a group exercise session. He completed 45 minutes of cardio which consisted of walking. documented in this encounter Plan of Treatment Upcoming Encounters Date Type Department Care Team (Late st Contact Info) Description 12/12/2023 1:00 PM EDT Nutrition Services Nutrition Services [address] [place] [address], [place] 293 [facility] [place] [address] Lisa Ma RDN 106 [facility] [place] [id number] 12/15/2023 11:00 AM EDT Cardiac Studies Cardiac Studies, [facility] [address] [place] [address] 03/01/2024 8:30 AM EDT Office Visit Rheumatology [facility] 2520 [facility] [place] [address] Sarah Stroud CRNP 2520 [facility] [place] [address] 03/19/2024 1:45 PM EDT Office Visit Dermatology [facility] 200 [facility] [place] [address] Nicolas Moody MD 200 [facility] [place] [address] 05/05/2024 8:30 AM EST Therapy Neuropsychology [facility] 200 [facility] [place] [address] Enrique Kay, PhD 200 [facility] [place] [address] 10/15/2024 2:00 PM EDT Nurse Only Ancillary 65 [facility] 293 [facility] [place] [address] College, Nurse Annual Wellness Visit [address] [place] [address] 11/01/2024 2:20 PM EDT Office Visit Nephrology, [facility] 200 [facility] [address] [place] [address] Baldo Mackey MD 200 [facility] [place], [place] [address] Scheduled Procedures Name Priority Associated Diagnoses Date/Ti [...] Additional history exists CKD PHOS USE SMARTSET 55929 03/21/202402/24, 12/20/2021, 10/03/2021, Additional history exists Diabetic Foot Exam 03/21/2024 03/21/2023, 1 , 10/16/2020, Additional history exists Diabetic Eye Exam 04/01/2024 04/01/2023, , 06/02/2018, Additional history exists GFR 04/24/2024 10/24/2023, 08/25, 08/11/2023, Additional history exists HbA1c 05/20/2024 11/19/2023, 06/27, 03/21/2023, Additional history exists CKD HGB USE SMARTSET 38121 09/18/202409/18, 09/19/2023, 08/11/2023, Additional history exists Albumin/Creatinine [...] as of this encounter Care Teams Supervisor Electrolytic Tinning Relationship Specialty Start Date End Date Art Cavazos DO [address] [place] [address] PCP - General Internal Medicine 11/19/23 documented as of this encounter
--- OUTSIDE RECORDS SUMMARY | 2024-05-09 10:45 | External Medical Summary | Summary of Care ---
Author Name Unknown Organization [facility] Address [address] [place] [address] Phone [phone] Care Team Providers Care Cook Dinner Name Role Phone Art Cavazos DO Primary Care Provider [phone] Encounter Details Date Type Department Care Team (Late st Contact Info) Description 12/17/2023 Documentation HEALTH & WELLNESS Mayra Colon, Health Moving Picture Operator Allergies Active Allergy Reactions Criticality Noted Date Comments Amoxicillin Fever,Rash Medium 12/29/2013 documented as of this encounter (statuses as of 12/17/2023) Medications Medication Sig Dispensed Refills Start Date End Date Status IdeaPaintTOUCH ULTRA SYSTEM W/DEVICE KITIndications:DM type 2, goal [...] as of this encounter (statuses as of 12/17/2023) Active Problems Problem Noted Date Diagnosed Date [...] as of this encounter (statuses as of 12/17/2023) Resolved Problems Problem Noted Date Diagnosed Date [...] as of this encounter (statuses as of 12/17/2023) Immunizations Name Administration Dates Next Due COVID-19 mRNA, LNP-s, No Pre serve, 2-Dose Series (Moderna) 08/02/2020,07/05/2020 COVID-19, MRNA-LNP, 23-24, P F, 30 MCG/0.3 mL, 12 YRS AND ABOVE, IM ([employer]-Comirnat) 03/21/2023 COVID-19, mRNA, LNP-s, PF, B ooster, [...] encounter Progress Notes * Mayra Colon Health Moving Picture Operator - 12/17/2023 3:39 PM EDT SESSION TYPE: Group exercise session: Exercise Subtype or Modality: Balance Training Patient completed a group exercise session which consisted of balance training. All exercises included improving balance and strength of lower extremities. He tolerated the exercises well and had no complaints. * Mayra Colon Health Moving Picture Operator - 12/17/2023 3:39 PM EDT SESSION TYPE: Group exercise session: [...] 03/01/2024 8:30 AM EDT Office Visit Rheumatology [facility] [address] [facility] [place] [address] Sarah Stroud CRNP 2520 [facility] [place] [address] 03/19/2024 1:45 PM EDT Office Visit Dermatology [facility] [address] [place] [address] Nicolas Moody MD 200 [facility] [place] [address] 03/31/2024 2:00 PM EST Nutrition Services Nutrition Services [address] [place] [address] Lisa Ma RDN [address] [place] [address] 05/05/2024 8:30 AM EST Therapy Neuropsychology [facility] [address] [place] [address] Enrique Kay, PhD 200 [facility] [place] [address] 10/15/2024 2:00 PM EDT Nurse Only Ancillary 65 [facility] 293 [place] [address] College, Nurse Annual Wellness Visit [address] [place] [address] 11/01/2024 2:20 PM EDT Office Visit Nephrology, [facility] [address] [place] [address] Baldo Mackey MD [address] [place] [address] Scheduled Procedures Name Priority Associated Diagnoses Date/Ti [...] Additional history exists CKD PHOS USE SMARTSET 74776 03/21/202402/24, 12/20/2021, 10/03/2021, Additional history exists Diabetic Foot Exam 03/21/2024 03/21/2023, 1 , 10/16/2020, Additional history exists Diabetic Eye Exam 04/01/2024 04/01/2023, , 06/02/2018, Additional history exists GFR 04/24/2024 10/24/2023, 08/25, 08/11/2023, Additional history exists HbA1c 05/20/2024 11/19/2023, 06/27, 03/21/2023, Additional history exists CKD HGB USE SMARTSET 47186 09/18/202409/18, 09/19/2023, 08/11/2023, Additional history exists Albumin/Creatinine [...] filedocumented as of this encounter Care Teams Cook Dinner Relationship Specialty Start Date End Date Art Cavazos DO [address] [place] [address] PCP - General Internal Medicine 11/19/23 documented as of this encounter
--- OUTSIDE RECORDS SUMMARY | 2024-05-09 10:45 | External Medical Summary | Summary of Care ---
Author Name Unknown Organization [facility] Address [address] [place] [address] Phone [phone] Care Team Providers Care Calculation Clerk Name Role Phone Art Cavazos DO Primary Care Provider [phone] Reason for Visit * Reason Comments Medical Nutrition Therapy Encounter Details Date Type Department Care Team (Latest Contact Info) Description 12/12/2023 1:00 PM EDT Nutrition Services Nutrition Services 65 [facility], [place] 293 [place] [address] Lisa Ma RDN 106 [place] [address] Type 2 diabetes mellitus with stage 3a chronic kidney disease, without long-term current use of insulin (HCC)*; HTN, goal below 140/90; Hypertensive kidney disease with stage 3a chronic kidney disease (HCC) Allergies Active Allergy Reactions Criticality Noted Date Comments Amoxicillin Fever,Rash Medium 12/29/2013 documented as of this encounter (statuses as of 12/12/2023) Medications Medication Sig Dispensed Refills Start Date End Date Status [employer] SYSTEM W/DEVICE KITIndications:DM type 2, goal A1c [...] A1c goal of less than 7.0% ([facility]) Use to test sugars once daily 100 Each 3 08/29/2021 Active Vitamin D-400 10 MCG (400 UNIT) Oral Tablet (cholecalciferol (VIT D3))Indications:Vi tamin D deficiency Take 2 Tablets by mouth daily. 120 Tablet 3 07/08/2022 Active Sildenafil Citrate 20 MG Oral Tablet (Revatio)Indicatio ns:Type 2 diabetes mellitus with stage 2 chronic kidney disease, without long-term current use of insulin ([facility]) TAKE ONE TABLET BY MOUTH 1-4 HOURS BEFORE INTERCOURSE. NO MORE THAN 1 DOSE IN 24 HOURS. 30 Tablet 5 01/03/2023 01/03/2024 Active OneTouch Ultra In Vitro Strip (Glucose Blood)Indications: Type 2 diabetes mellitus with stage 3a chronic kidney disease, without long-term current use of insulin ([facility]) TEST 1 TO 2 TIMES DAILY. 200 Strip 3 04/27/2023 04/26/2024 Active Latanoprost 0.005 % Ophthalmic Solution (Xalatan) Instill 1 Drop into both eyes once daily every evening as directed 10 mL 3 04/30/2023 Active Empagliflozin 25 MG Oral Tablet (Jardiance)Indicat ions:Type 2 diabetes mellitus with stage 3a chronic kidney disease, without long-term current use of insulin ([facility]) Take 1 Tablet by mouth in the [...] as of this encounter (statuses as of 12/12/2023) Active Problems Problem Noted Date Diagnosed Date [...] as of this encounter (statuses as of 12/12/2023) Resolved Problems Problem Noted Date Diagnosed Date [...] as of this encounter (statuses as of 12/12/2023) Immunizations Name Administration Dates Next Due COVID-19 [...] - - Weight 87 kg (191 lb 11.2 oz) 12/12/2023 1:04 PM EDT Height - - Body Mass Index 29.36 11/19/2023 10:38 AM EDT documented in this encounter Patient Instructions * Patient Instructions* Lisa Ma RDN - 12/12/2023 1:27 PM EDT Current Goals: Discussed the following goals with patient who agrees to the following: Choose to trial a whole grain bread containing fiber (3-4 grams fiber/service) in place of current bread choice Choose to have vegetables at evening snack at least 5 days/week documented in this encounter Progress Notes * Lisa Ma RDN - 12/12/2023 1:00 PM EDT NUTRITION FOLLOW-UP NOTE - [address] [place] [address] Name: Mg Little Jr. Location: NUTRITION SERVICES [address] [place] [address] Date: 12/12/2023 Time: 1:00 PM Patient location: [address] [place] [address] Clinic. Patient was seen [id number] in the clinic. Patient was verified with two unique identifiers. Reason for Nutrition Follow-up: Type 2 Diabetes NUTRITION ASSESSMENT: Client History Patient reports he is not moving as much as usual. He states he typically is drinking increased fluids over the winter/spring. Has been eating more Patient has made good progress towards the following goals: Choose to add a fruit or vegetables to lunch time meal Support System: Self Barriers to Learning: None, forgetful Special Education Needs: None Food/Nutrition-Related History Describes typical diet history/24 hr recall Breakfast: 2 hard boiled eggs; 1 piece of fruit, cheerios with whole milk, coffee; Yogurt for dessert (probiotic) Lunch: ham and cheese sandwich with mustard and cheese; Coke Zero Dinner: ice cream last night; packaged salad with crain, chicken, egg with creamy dressing + tomatoand onion; no sugar soda or beer Snacks: once in a while an apple; ice cream Drinks: decaf coffee, milk (whole), [...] and other pertinent information: N/a Physical Activity: exercise classes 3-4 days/week at 65 [employer] 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 60 Tab 11 Future Domainuch UltraSoft Lancets Use to test sugars once daily 100 Each 3 Vitamin D-400 10 MCG (400 UNIT) Oral Tablet (cholecalciferol (VIT D3)) Take 2 Tablets by mouth daily. 120 Tablet 3 Sildenafil Citrate 20 MG Oral Tablet (Revatio) TAKE ONE TABLET BY MOUTH 1-4 HOURS BEFORE INTERCOURSE. NO MORE THAN 1 DOSE IN 24 HOURS. 30 Tablet 5 OneTouch Ultra In Vitro Strip (Glucose Blood) [...] Overall appearance: WNWD Fluid accumulation: Fluid Assessment: Normal Fluid Location: N/A Fluid Description: N/A Digestive system: No issues, Appetite: good Nerves and cognition: Awake, alert and Oriented Anthropometric Measurements Current Weight: Wt Readings from Last 1 Encounters: 12/12/23 87 kg (191 lb 11.2 oz) Wt Readings from Last 4 Encounters: 12/12/23 87 kg (191 lb 11.2 oz) 11/19/23 83.7 kg (184 lb 8 oz) 10/31/23 83 kg (183 lb) 10/24/23 84.6 kg (186 lb 6.4 oz) Weight Change: increased by 11 pounds in the past 4 months BMI Readings from Last 1 Encounters: 12/12/23 29.36 kg/m Biochemical Data, Medical Tests, and Procedures Latest Reference Range & Units 09/19/23 08:50 10/24/23 11:41 Sodium 135 - 146 mmol/L 136 135 Potassium 3.5 - 5.1 mmol/L 4.6 4.7 Chloride 98 - 107 mmol/L 99 102 CO2 22 - 32 mmol/L 28 20 (L) BUN 6 - 20 mg/dL 29 (H) 42 (H) Creatinine 0.6 - 1.2 mg/dL 1.5 (H) 1.6 (H) Estimated Glomerular Filtration Rate >=60 mL/min 48 (L) 42 (L) Anion Gap 7 - 15 mmol/L 9 13 Glucose 70 - 120 mg/dL 138 (H) 145 (H) Calcium 8.4 - 10.2 mg/dL 9.2 9.3 (L): Data is abnormally low (H): Data is abnormally high Renal parameters consistent with CKD Self-Monitoring Blood Glucose Source of Information: Participant verbally reviewed from memory Frequency of tests: twice daily Summary: 105 this AM, 180 last night Hypoglycemia?: No Hemoglobin AIC Results: Lab Results [...] (H) 09/01/2019 07:50 AM Previous Nutrition Diagnosis: Food and nutrition-related knowledge deficit related to Poor meal distribution as evidenced by Reported diet and/or activity recall CURRENT NUTRITION DIAGNOSIS Imbalance of nutrients related to High calorie, high fat and/or high sugar selections, Inconsistentcarbohydrate intake, Inadequate fiber intake, Significant sodium intake as evidenced by Reported diet and/or activity recall NUTRITION INTERVENTION: NUTRITION EDUCATION Comprehensive nutrition education NUTRITION COUNSELING Strategies Motivational Interviewing Diabetes Standards of Care: Care Gaps have been addressed with other members of [address] [place] [address] Care Team Nutrition Prescription: Diet: 2000 mg Sodium Consistent Carbohydrate Heart Healthy Low Fat/Low Cholesterol Daily Calorie Needs: 3565-1069 Kcals Daily Protein Needs: 66-82 Grams protein Current Goals: Discussed the following goals with patient who agrees to the following: Choose to trial a whole grain bread containing fiber (3-4 grams fiber/service) in place of current bread choice Choose to have vegetables at evening snack at least 5 days/week Dietitian Action: Discussed foods high in sodium to avoid Reviewed impact of decreased energy expenditure and increase in ice cream's effect on weight Reviewed healthy snacking options Reviewed portion control with snacks and starchy carbohydrate food choices Recommendations to Ordering Provider: Continue current plan of nutrition care. NUTRITION MONITORING AND EVALUATION: The following will be monitored and evaluated at the next visit: Monitor weight. Monitor labs. Monitor goals and progress. Plan: Patient scheduled to return in 3-4 months; dietitian phone # given for future reference. 30 minutes Medical Nutrition Therapy Time In: 1300 (12/12/23 1435) Time Out: 1331 (12/12/23 1435) 15 min (8-22 min) 30 min (23-37 min) 45 min (38-52 min) 60 min (53-67 min) 75 min (68-82 min) 90 min (83-97 min) 105 min (98-113 min) Lisa Ma RDN 12/12/2023 1:00 PM NUTRITION SERVICES [address] [place] [address] documented in this encounter Plan of Treatment Upcoming Encounters Date Type Department Care Team (Late st Contact Info) Description 12/15/2023 11:00 AM EDT [facility] 132 [facility] [place] [address] 03/01/2024 8:30 AM EDT Office Visit Rheumatology [place] [address] [facility] [place], [place] [address] Sarah Stroud CRNP [address] [place] [address] [place] [address] 03/19/2024 1:45 PM EDT Office Visit Dermatology [facility] [address] [place] [address] Nicolas Moody MD 200 [facility] [place] [address] 03/31/2024 2:00 PM EST Nutrition Services Nutrition Services 65 [facility] 293 [facility] [place] [address] Lisa Ma RDN [address] [place] [address] [place] [address] 05/05/2024 8:30 AM EST Therapy Neuropsychology [facility] [address] [place], [place] [address] Enrique Kay, PhD 200 [facility] [place], [place] [address] 10/15/2024 2:00 PM EDT Nurse Only Ancillary 65 [facility] 293 [facility], [place] [address] College, Nurse Annual Wellness Visit [address] [place] [address] 11/01/2024 2:20 PM EDT Office Visit Nephrology, [facility] [address] [place] [address] Baldo Mackey MD 200 [facility] [place] [address] Scheduled Procedures Name Priority Associated Diagnoses Date/Ti [...] Additional history exists CKD PHOS USE SMARTSET 14868 03/21/202402/24, 12/20/2021, 10/03/2021, Additional history exists Diabetic Foot Exam 03/21/2024 03/21/2023, 1 , 10/16/2020, Additional history exists Diabetic Eye Exam 04/01/2024 04/01/2023, , 06/02/2018, Additional history exists GFR 04/24/2024 10/24/2023, 08/25, 08/11/2023, Additional history exists HbA1c 05/20/2024 11/19/2023, 06/27, 03/21/2023, Additional history exists CKD HGB USE SMARTSET 22846 09/18/202409/18, 09/19/2023, 08/11/2023, Additional history exists Albumin/Creatinine [...] (HCC) documented in this encounter Care Teams Calculation Clerk Relationship Specialty Start Date End Date Art Cavazos DO [address] [place] [address] PCP - General Internal Medicine 11/19/23 documented as of this encounter
--- OUTSIDE RECORDS SUMMARY | 2024-05-09 10:45 | External Medical Summary | Summary of Care ---
Author Name Unknown Organization [facility] Address [address] [place] [address] Phone [phone] Care Team Providers Care Barrel Liner Name Role Phone Art Cavazos DO Primary Care Provider [phone] Encounter Details Date Type Department Care Team (Late st Contact Info) Description 12/02/2023 Documentation HEALTH & WELLNESS Mayra Colon, Health Hot Top Liner Allergies Active Allergy Reactions Criticality Noted Date Comments Amoxicillin Fever,Rash Medium 12/29/2013 documented as of this encounter (statuses as of 12/02/2023) Medications Medication Sig Dispensed Refills Start Date End Date Status KnowledgeVisionTOUCH ULTRA SYSTEM W/DEVICE KITIndications:DM type 2, goal [...] as of this encounter (statuses as of 12/02/2023) Active Problems Problem Noted Date Diagnosed Date [...] as of this encounter (statuses as of 12/02/2023) Resolved Problems Problem Noted Date Diagnosed Date [...] as of this encounter (statuses as of 12/02/2023) Immunizations Name Administration Dates Next Due COVID-19 mRNA, LNP-s, No Pre serve, 2-Dose Series (Moderna) 08/02/2020,07/05/2020 COVID-19, MRNA-LNP, 23-24, P F, 30 MCG/0.3 mL, 12 YRS AND ABOVE, IM ([employer]-Comirnat) 03/21/2023 COVID-19, mRNA, LNP-s, PF, B ooster, [...] encounter Progress Notes * Mayra Colon Health Hot Top Liner - 12/02/2023 3:22 PM EDT SESSION TYPE: Group exercise session: Exercise Subtype or Modality: Resistance Training Patient completed a group exercise session which consisted of resistance training. Body weight and dumbbells were used for the exercises. He tolerated exercise well and had no complaints. * Mayra Colon Health Hot Top Liner - 12/02/2023 3:21 PM EDT SESSION TYPE: Group exercise session: [...] PM EDT Nutrition Services Nutrition Services 65 [facility] 293 [facility], [place] [address] Lisa Ma, FROYLAN 106 [facility] [place] [address] 12/15/2023 11:00 AM EDT Cardiac Studies Cardiac Studies, [facility] 132 [facility] [place] [address] 03/01/2024 8:30 AM EDT Office Visit Rheumatology [place] [address] [facility] [place] [address] Sarah Stroud CRNP [address] [employer] [place] [address] 03/19/2024 1:45 PM EDT Office Visit Dermatology [facility] [address] [place] [address] Nicolas Moody MD [address] [place] [address] 05/05/2024 8:30 AM EST Therapy Neuropsychology [facility] [address] [place] [address] Enrique Kay, PhD 200 [facility] [address] [place] [address] 10/15/2024 2:00 PM EDT Nurse Only Ancillary 65 [facility] 293 [facility], [place] [address] College, Nurse Annual Wellness Visit 65 [address] [address] 11/01/2024 2:20 PM EDT Office Visit Nephrology, [facility] [address] [place] [address] Baldo Mackey MD [address] [place] [address] Scheduled Procedures Name Priority Associated Diagnoses Date/Ti [...] Additional history exists CKD PHOS USE SMARTSET 66308 03/21/202402/24, 12/20/2021, 10/03/2021, Additional history exists Diabetic Foot Exam 03/21/2024 03/21/2023, 1 , 10/16/2020, Additional history exists Diabetic Eye Exam 04/01/2024 04/01/2023, , 06/02/2018, Additional history exists GFR 04/24/2024 10/24/2023, 08/25, 08/11/2023, Additional history exists HbA1c 05/20/2024 11/19/2023, 06/27, 03/21/2023, Additional history exists CKD HGB USE SMARTSET 65758 09/18/202409/18, 09/19/2023, 08/11/2023, Additional history exists Albumin/Creatinine [...] filedocumented as of this encounter Care Teams Barrel Liner Relationship Specialty Start Date End Date Art Cavazos DO [address] [place] [address] PCP - General Internal Medicine 11/19/23 documented as of this encounter
--- OUTSIDE RECORDS SUMMARY | 2024-05-09 10:46 | External Medical Summary | Summary of Care ---
Author Name Unknown Organization [facility] Address [address] [place] [address] Phone [phone] Care Team Providers Care In Flight Refueling Craftsman Name Role Phone Art Cavazos DO Primary Care Provider [phone] Reason for Visit * Reason Comments Follow Up Encounter Details Date Type Department Care Team (Late st Contact Info) Description 11/19/2023 11:00 AM EDT Office Visit Family Practice [address] [place] [address] [place] [phone] Art Cavazos DO [address] [place], [place] [id number] Type 2 diabetes mellitus with stage 3a chronic kidney disease, without long-term current use of insulin (HCC)*; HTN, goal below 140/90; CHARLIE inhibitor intolerance; Drug-induced hyperkalemia; Hyponatremia; Stress and adjustment reaction; Gastroesophageal reflux disease without esophagitis; Gout of both feet; MCI (mild cognitive impairment) Allergies Active Allergy Reactions Criticality Noted Date Comments Amoxicillin Fever,Rash Medium 12/29/2013 documented as of this encounter (statuses as of 11/19/2023) Medications Medication Sig Dispensed Refills Start Date End Date Status Reach Surgical SYSTEM W/DEVICE KITIndications:DM type 2, goal A1c [...] mouth daily. 120 Tablet 3 07/08/2022 Active Omeprazole 40 MG Oral Capsule Delayed Release (PriLOSEC) TAKE 1 CAPSULE BY MOUTH IN THE MORNING. 100 Capsule 3 10/18/2022 12/01/2023 Active Sildenafil Citrate 20 MG Oral Tablet (Revatio)Indicatio ns:Type 2 diabetes mellitus with stage 2 chronic kidney disease, without long-term current use of insulin ([facility]) TAKE ONE TABLET BY MOUTH 1-4 HOURS [...] the morning. 90 Tablet 3 08/25/2023 Active documented as of this encounter (statuses as of 11/19/2023) Active Problems Problem Noted Date Diagnosed Date [...] as of this encounter (statuses as of 11/19/2023) Resolved Problems Problem Noted Date Diagnosed Date [...] as of this encounter (statuses as of 11/19/2023) Immunizations Name Administration Dates Next Due COVID-19 mRNA, LNP-s, No Pre serve, 2-Dose Series (Moderna) 08/02/2020,07/05/2020 COVID-19, MRNA-LNP, 23-24, P F, 30 MCG/0.3 mL, 12 YRS AND ABOVE, IM ([employer]-Comirnat) [...] Sign Reading Time Taken Comments Blood Pressure 142/82 11/19/2023 10:38 AM EDT Pulse 64 11/19/2023 10:38 AM EDT Temperature 36.7 C (98.1 F) 11/19/2023 10:38 AM E DT Respiratory Rate 16 11/19/2023 10:38 AM EDT Oxygen Saturation 97% 11/19/2023 10:38 AM EDT Inhaled Oxygen Concentration - - Weight 83.7 kg (184 lb 8 oz) 11/19/2023 10:38 AM EDT Height 172.1 cm (5' 7.75") 11/19/2023 10:38 AM E DT Body Mass Index 28.26 11/19/2023 10:38 AM EDT documented in this encounter Progress Notes * Art Cavazos, - 11/19/2023 11:05 AM EDT SUBJECTIVE: Mg Little Jr. is a 83 year old male. Chief Complaint Patient presents with Follow Up HPI: Patient is an 83 year old male with a history of DM type II, HTN, CKD stage III, CVA, Anderson's Esophagus, and Anxiety that is seen for follow up. He is feeling well. No chest pain or shortness of breath are present. Weight is stable and appetite is good. No falls and memory is stable. MMSE score 30/30 in 06/2023. He is still concerned about being forgetful at times. Anxiety is stable. He is no longer jogging. Diarrhea has resolved since he stopped drinking fruit juice. Patient Active Problem List Diagnosis HTN, goal [...] Current Outpatient Medications Medication Sig Dispense Refill Kingmaker ULTRA SYSTEM W/DEVICE KIT Use up to [...] Tablets by mouth daily. 120 Tablet 3 Omeprazole 40 MG Oral Capsule Delayed Release (PriLOSEC) TAKE 1 CAPSULE BY MOUTH IN THE MORNING. 100 Capsule 3 Sildenafil Citrate 20 MG Oral Tablet [...] by John Paul Jameson MD at [facility] EGD, FLEXIBLE, DIAGNOSTIC 04/09/2018 Barretts, hiatal hernia, repeat 2 yrs/[facility] EGD, FLEXIBLE, DIAGNOSTIC 10/25/2020 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, small HH / evidence of inflammation, long segment of Anderson's Esophigitis / 2 year recall / ESOPHAGOGASTRODUODENOSCOPY (EGD), FLEXIBLE, TRANSORAL, DIAGNOSTIC performed by Marian Conley DO at [facility] VASECTOMY 1972 Review of patient's allergies indicates: Allergen Reactions Amoxicillin Fever and Rash Review of Systems Constitutional: Negative for appetite change, fatigue and unexpected weight change. HENT: Negative for congestion, sore throat and trouble swallowing. Respiratory: Negative for cough, shortness of breath and wheezing. Cardiovascular: Negative for chest pain, palpitations and leg swelling. Gastrointestinal: Negative for abdominal pain, blood in stool, constipation, diarrhea, nausea and vomiting. Genitourinary: Negative for dysuria, frequency and hematuria. Musculoskeletal: Positive for gait problem. Negative for arthralgias and back pain. Neurological: Negative for dizziness, syncope and headaches. Psychiatric/Behavioral: Positive for decreased concentration and dysphoric mood. Negative for sleepdisturbance. OBJECTIVE: BP 142/82 (BP Site: Left Arm, BP Position: Sitting) | Pulse 64 | Temp 36.7 C (98.1 F) | Resp 16| Ht 1.721 m (5' 7.75") | Wt 83.7 kg (184 lb 8 oz) | SpO2 97% | BMI 28.26 kg/m | BSA 2 m Physical Exam Vitals and nursing note [...] tenderness. Musculoskeletal: Right lower leg: No edema. Left lower leg: No edema. Neurological: Mental Status: He is alert and oriented to person, place, and time. Mental status is at baseline. Motor: No weakness. Gait: Gait normal. Psychiatric: Cognition and Memory: Cognition normal. He exhibits impaired recent memory. He does not exhibit impaired remote memory. Results for orders placed or performed in visit on 11/10/23 ERYTHROCYTE SEDIMENTATION RATE (ESR) Result Value Ref Range ESR 12 <20 mm/hour CRP (INFLAMMATORY MARKER) Result Value Ref Range CRP (Inflammatory Marker) <3 <=5 mg/L *Note: Due to a large number of results and/or encounters for the requested time period, some results have not been displayed. A complete set of results can be found in Results Review. Component Latest Ref Rng 10/24/2023 BUN 6 - 20 mg/dL 42 (H) Creatinine 0.6 - 1.2 mg/dL 1.6 (H) Estimated Glomerular Filtration Rate >=60 mL/min 42 (L) Sodium 135 - 146 mmol/L 135 Potassium 3.5 - 5.1 mmol/L 4.7 Chloride 98 - 107 mmol/L 102 CO2 22 - 32 mmol/L 20 (L) Anion Gap 7 - 15 mmol/L 13 Glucose 70 - 120 mg/dL 145 (H) Albumin 3.8 - 5.0 g/dL 4.2 AST 10 - 50 U/L 22 Alkaline Phosphatase 35 - 130 U/L 79 Bilirubin, Total <=1.2 mg/dL 0.7 Calcium 8.4 - 10.2 mg/dL 9.3 Protein 6.0 - 8.3 g/dL 7.1 ALT 10 - 50 U/L 21 Legend: (H) High (L) Low PLAN AND ASSESSMENT: Type 2 diabetes mellitus with stage 3a chronic kidney disease, without long-term current use of insulin (HCC) (Primary) - HEMOGLOBIN A1C; Future; Expected date: 11/19/2023 - LIPID PANEL WITH DIRECT LDL IF TG IS HIGH; Future; Expected date: 11/19/2023 Continue Empagliflozin, and Hydralazine HTN, goal below 140/90 Continue Hydralazine CHARLIE inhibitor intolerance Drug-induced hyperkalemia Hyponatremia Stress and adjustment reaction Gastroesophageal reflux disease without esophagitis Continue Omeprazole Gout of both feet Continue Allopurinol MCI (mild cognitive impairment) Keep appointment with Neuropsychology as scheduled Mild memory loss may be present. Follow Up: Return in about 4 months (around 2024), or if symptoms worsen or fail to improve. Art Cavazos DO 11:05 AM 11/19/2023 documented in this encounter Nursing Notes * Susy Kenny CCMA - 11/19/2023 10:37 AM EDT Pt here for a 4m follow up. No questions or concerns for today. Patient has been verbally educated on the need or importance of Immunizations: covid shot and shingrix and has declined topic(s). documented in this encounter Plan of Treatment Upcoming Encounters Date Type Department Care Team (Late st Contact Info) Description 12/12/2023 1:00 PM EDT Nutrition Services Nutrition Services 65 [facility] 293 [facility] [place] [address] Lisa Ma RDN 106 [facility] [place] [address] 12/15/2023 11:00 AM EDT Cardiac Studies Cardiac Studies, [facility] 132 [facility] [place] [address] 02/24/2024 2:00 PM EDT Office Visit Rheumatology [place] [address] [employer] [place] [address] Sanju Geiger PA-C [address] [facility] [place] [address] 03/19/2024 1:45 PM EDT Office Visit Dermatology [facility] 200 [facility] [address] [place] [address] Nicolas Moody MD 200 [facility] [place] [address] 05/05/2024 8:30 AM EST Therapy Neuropsychology [facility] 200 [facility] [address] [place] [address] Enrique Kay, PhD 200 [facility] [place] [address] 10/15/2024 2:00 PM EDT Nurse Only Ancillary 65 [facility] 293 [facility] [address] College, Nurse Annual Wellness Visit [address] [address] 11/01/2024 2:20 PM EDT Office Visit Nephrology, [facility] [address] [place] [address] Baldo Mackey MD 200 [facility] [place] [address] Pending Results Name Type Priority Associated Diagnoses Date /Time HEMOGLOBIN A1C Lab Routine Type 2 diabetes mellitus with stage 3a chronic kidney disease, without long-term current use of insulin (HCC) 11/19/2023 11:06 AM EDT LIPID PANEL WITH DIRECT LDL IF TG IS HIGH Lab Routine Type 2 diabetes mellitus with stage 3a chronic kidney disease, without long-term current use of insulin (HCC) 11/19/2023 11:06 AM EDT Scheduled Orders Name Type Priority Associated Diagnoses Orde r Schedule HEMOGLOBIN A1C Lab Routine Type 2 diabetes mellitus with stage 3a chronic kidney disease, without long-term current use of insulin (HCC) Expected: 11/19/2023 (Approximate), Expires: 11/18/2024 LIPID PANEL WITH DIRECT LDL IF TG IS HIGH Lab Routine Type 2 diabetes mellitus with stage 3a chronic kidney disease, without long-term current use of insulin (HCC) Expected: 11/19/2023, Expires: 11/18/2024 Scheduled Procedures Name Priority Associated Diagnoses Date/Ti me ESOPHAGOGASTRODUODENOSCOPY ( EGD), FLEXIBLE, TRANSORAL, DIAGNOSTIC Recall Anderson's esophagus with esophagitis Health Maintenance Due Date Last Done Comments Anderson's Esophagus Surveilance 10/26/2023 10/25/2020, 10/25/2020, 04/09/2018 COVID-19 Vaccine ( season) 2023 03/21/2023, 05/31/2022, 11/09/2021, Additional history exists Postponed from 07/22/2023 (Patient Declined After Education) Zoster Vaccines (1 of 2) 11/20/2023 Pos tponed from 1990 (Patient Declined After Education) HbA1c 01/19/2024 07/21/2023, 02/24, 11/18/2022, Additional history exists CKD PHOS USE SMARTSET 17909 03/21/202402/24, 12/20/2021, 10/03/2021, Additional history exists Diabetic Foot Exam 03/21/2024 03/21/2023, 1 , 10/16/2020, Additional history exists Diabetic Eye Exam 04/01/2024 04/01/2023, , 06/02/2018, Additional history exists GFR 04/24/2024 10/24/2023, 08/25, 08/11/2023, Additional history exists CKD HGB USE SMARTSET 73054 09/18/202409/18, 09/19/2023, 08/11/2023, Additional history exists Albumin/Creatinine Ratio 10/09/2024 024, 11/18/2022, 11/20/2021, Additional history exists Depression Screening 10/09/2024 10/10/2023, 10/10/19 24 DTaP,Tdap,and Td Vaccines (2 - Td or Tdap) 05/23/2031 05/23/2021 Pneumococcal Vaccine: 65+ Years Completed 09/29/2015, 12/22/2009 Influenza Vaccine (FLU shot) Completed 03/21/2023, 02/04/2022, 03/27/2021, Additional history exists GARDASIL-HPV IMMUNIZATION SERIES Aged Out No longer eligible based on patient's age to complete this topic Hepatitis B Aged Out No longer eligi ble based on patient's age to complete this [...] HTN, goal below 140/90 Unspecified essential hypertension CHARLIE inhibitor intolerance Other drug allergy Drug-induced hyperkalemia Hyperpotassemia Hyponatremia Hyposmolality and/or hyponatremia Stress and adjustment reaction Other specified adjustment reaction Gastroesophageal reflux disease without esophagitis Esophageal reflux Gout of both feet MCI (mild cognitive impairment) Mild cognitive impairment, so stated documented in this encounter Care Teams In Flight Refueling Craftsman Relationship Specialty Start Date End Date Art Cavazos DO [address] [facility] [place] [address] PCP - General Internal Medicine 11/19/23 documented as of this encounter
--- OUTSIDE RECORDS SUMMARY | 2024-05-09 10:46 | External Medical Summary | Summary of Care ---
Author Name Unknown Organization [facility] Address [address] [place] [address] Phone [phone] Care Team Providers Care News Technical Director Name Role Phone Art Cavazos DO Primary Care Provider [phone] Encounter Details Date Type Department Care Team (Late st Contact Info) Description 11/11/2023 Documentation HEALTH & WELLNESS Mayra Colon, Health Supervisor Wet Room Allergies Active Allergy Reactions Criticality Noted Date Comments Amoxicillin Fever,Rash Medium 12/29/2013 documented as of this encounter (statuses as of 11/11/2023) Medications Medication Sig Dispensed Refills Start Date End Date Status ReadWorksTOUCH ULTRA SYSTEM W/DEVICE KITIndications:DM type 2, goal [...] as of this encounter (statuses as of 11/11/2023) Active Problems Problem Noted Date Diagnosed Date Stress and adjustment reaction 07/10/2022 Hyponatremia 11/27/2021 [...] as of this encounter (statuses as of 11/11/2023) Resolved Problems Problem Noted Date Diagnosed Date [...] as of this encounter (statuses as of 11/11/2023) Immunizations Name Administration Dates Next Due COVID-19 [...] of this encounter Progress Notes * Mayra Colon, Health Supervisor Wet Room - 11/11/2023 2:23 PM EDT SESSION TYPE: Group exercise session: [...] AM EDT Office Visit Family Practice 65 [facility] 293 [place] [address] Art Cavazos, 293 [place] [address] 12/12/2023 1:00 PM EDT Nutrition Services Nutrition Services 65 [facility] 293 [facility], [place] [address] Lisa Ma, FROYLAN 106 [facility] [place] [address] 12/15/2023 11:00 AM EDT Cardiac Studies Cardiac Studies, [facility] 132 [facility] [place] [address] 02/24/2024 2:00 PM EDT Office Visit Rheumatology [facility] 2520 [facility] [place] [address] Sanju Geiger PA-C 2520 [facility] [place] [address] 03/19/2024 1:45 PM EDT Office Visit Dermatology [facility] 200 [facility] [place] [address] Nicolas Moody MD 200 [facility] [place] [address] 05/05/2024 8:30 AM EST Therapy Neuropsychology [facility] 200 [facility] [place] [address] Enrique Kay, PhD 200 [facility] [place] [address] 10/15/2024 2:00 PM EDT Nurse Only Ancillary 65 [facility] 293 [facility], [place] [address] College, Nurse Annual Wellness Visit [address] [address] 11/01/2024 2:20 PM EDT Office Visit Nephrology, [facility] [address] [place] [address] Baldo Mackey MD 200 [facility] [place] [address] Scheduled Procedures Name Priority Associated Diagnoses Date/Ti me ESOPHAGOGASTRODUODENOSCOPY ( EGD), FLEXIBLE, TRANSORAL, DIAGNOSTIC Recall Anderson's esophagus with esophagitis Health Maintenance Due Date Last Done Comments Zoster Vaccines (1 of 2) 1990 COVID-19 Vaccine (2022- season) 2023 03/21/2023, 05/31/2022, 11/09/2021, Additional history exists Anderson's Esophagus Surveilance 10/26/2023 10/25/2020, 10/25/2020, 04/09/2018 HbA1c 01/19/2024 07/21/2023, 02/24, 11/18/2022, Additional history exists CKD PHOS USE SMARTSET 28302 03/21/202402/24, 12/20/2021, 10/03/2021, Additional history exists Diabetic Foot Exam 03/21/2024 03/21/2023, 1 , 10/16/2020, Additional history exists Diabetic Eye Exam 04/01/2024 04/01/2023, , 06/02/2018, Additional history exists GFR 04/24/2024 10/24/2023, 08/25, 08/11/2023, Additional history exists CKD HGB USE SMARTSET 02081 09/18/202409/18, 09/19/2023, 08/11/2023, Additional history exists Albumin/Creatinine Ratio 10/09/2024 024, 11/18/2022, 11/20/2021, Additional history exists Depression Screening 10/09/2024 10/10/2023, 10/10/19 24 DTaP,Tdap,and Td Vaccines (2 - Td or Tdap) 05/23/2031 05/23/2021 Pneumococcal Vaccine: 65+ Years Completed 09/29/2015, 12/22/2009 Influenza Vaccine (FLU shot) Completed , 02/04/2022, 03/27/2021, Additional history exists GARDASIL-HPV IMMUNIZATION [...] filedocumented as of this encounter Care Teams News Technical Director Relationship Specialty Start Date End Date Art Cavazos DO PCP - General Internal Medicine 03/22/21 documented as of this encounter
--- OUTSIDE RECORDS SUMMARY | 2024-05-09 10:46 | External Medical Summary ---
Author Name Unknown Address Unknown Organization K01:[facility] - [address] [facility] [address] Laboratory Report Ordering Provider Test Date Status LUCINDA DELGADO 11/19/2023 11:06:14 Final Observation Date Value Abnormality Reference (Units ) Status HbA1C 11/19/2023 11:06:14 7.1 Above high normal 4. 0-5.6 (%) Final The use of HbA1c to monitor glycemic status is based on normal hemoglobin and HbA composition. This test should not be used in patients with abnormal hemoglobin that affects the half life of the red blood cell or the in vivo glycation rates. Glucose, estimated average 11/19/2023 11:06:14 157 Above high normal <126 (mg/dL) Jaswinder blankenship Performing Location [facility] - [address] [place] [address]
--- OUTSIDE RECORDS SUMMARY | 2024-05-09 10:46 | External Medical Summary | Summary of Care ---
Author Name Unknown Organization [facility] Address [address] [place] [address] Phone [phone] Care Team Providers Care Sourcing Manager Name Role Phone Art Cavazos DO Primary Care Provider [phone] Encounter Details Date Type Department Care Team (Late st Contact Info) Description 11/19/2023 Documentation HEALTH & WELLNESS Mayra Colon, Health Annual Giving Director Allergies Active Allergy Reactions Criticality Noted Date Comments Amoxicillin Fever,Rash Medium 12/29/2013 documented as of this encounter (statuses as of 11/19/2023) Medications Medication Sig Dispensed Refills Start Date End Date Status Porter + SailTOUCH ULTRA SYSTEM W/DEVICE KITIndications:DM type 2, goal [...] MCG/0.3 mL, 12 YRS AND ABOVE, IM (M/[employer]-Comirnat) 03/21/2023 COVID-19, mRNA, LNP-s, PF, B ooster, [...] encounter Progress Notes * Mayra Colon Health Annual Giving Director - 11/19/2023 3:26 PM EDT SESSION TYPE: General exercise session Patient completed 20 minutes of cardio on the recumbent bike. documented in this encounter Plan of Treatment Upcoming Encounters Date Type Department Care Team (Late st Contact Info) Description 12/12/2023 1:00 PM EDT Nutrition Services Nutrition Services [address] [place] [address] 293 [place] [address] Lisa Ma RDN 106 [facility] [place] [address] 12/15/2023 11:00 AM EDT Cardiac Studies Cardiac Studies, [facility] 132 [place] [address] 02/24/2024 2:00 PM EDT Office Visit Rheumatology [facility] 2520 [facility] [place], [place] [address] Sanju Geiger PA-C [address] [facility] [place] [address] 03/19/2024 1:45 PM EDT Office Visit Dermatology [facility] 200 [facility] [address] [place] [address] Nicolas Moody MD 200 [facility] [place] [address] 05/05/2024 8:30 AM EST Therapy Neuropsychology [facility] 200 [facility] [place] [address] Enrique Kay, PhD 200 [facility] [place] [address] 10/15/2024 2:00 PM EDT Nurse Only Ancillary 65 [facility] 293 [place] [address] College, Nurse Annual Wellness Visit [address] [place] [address] 11/01/2024 2:20 PM EDT Office Visit Nephrology, [facility] 200 [facility] [address] [place], [place] [address] Baldo Mackey MD 200 [facility] [place], [place] [address] Scheduled Procedures Name Priority Associated Diagnoses Date/Ti [...] Additional history exists CKD PHOS USE SMARTSET 98795 03/21/202402/24, 12/20/2021, 10/03/2021, Additional history exists Diabetic Foot Exam 03/21/2024 03/21/2023, 1 , 10/16/2020, Additional history exists Diabetic Eye Exam 04/01/2024 04/01/2023, , 06/02/2018, Additional history exists GFR 04/24/2024 10/24/2023, 08/25, 08/11/2023, Additional history exists CKD HGB USE SMARTSET 27154 09/18/202409/18, 09/19/2023, 08/11/2023, Additional history exists Albumin/Creatinine [...] filedocumented as of this encounter Care Teams Sourcing Manager Relationship Specialty Start Date End Date Art Cavazos DO [address] [place] [address] PCP - General Internal Medicine 11/19/23 documented as of this encounter
--- OUTSIDE RECORDS SUMMARY | 2024-05-09 10:46 | External Medical Summary | Summary of Care ---
Author Name Unknown Organization [facility] Address [address] [place] [address] Phone [phone] Care Team Providers Care Edge Inker Uppers Name Role Phone Art Cavazos DO Primary Care Provider [phone] Encounter Details Date Type Department Care Team (Late st Contact Info) Description 11/17/2023 Documentation HEALTH & WELLNESS Mayra Colon, Health Rn Military Allergies Active Allergy Reactions Criticality Noted Date Comments Amoxicillin Fever,Rash Medium 12/29/2013 documented as of this encounter (statuses as of 11/17/2023) Medications Medication Sig Dispensed Refills Start Date End Date Status TouchstormTOUCH ULTRA SYSTEM W/DEVICE KITIndications:DM type 2, goal [...] as of this encounter (statuses as of 11/17/2023) Active Problems Problem Noted Date Diagnosed Date [...] as of this encounter (statuses as of 11/17/2023) Resolved Problems Problem Noted Date Diagnosed Date [...] as of this encounter (statuses as of 11/17/2023) Immunizations Name Administration Dates Next Due COVID-19 [...] encounter Progress Notes * Mayra Colon Health Rn Military - 11/17/2023 3:12 PM EDT SESSION TYPE: Group exercise session: [...] AM EDT Office Visit Family Practice 65 [facility] [address] [place] [phone] Art Cavazos, 293 [facility] [place] [address] 12/12/2023 1:00 PM EDT Nutrition Services Nutrition Services 65 [facility] 293 [place] [address] Lisa Ma, FROYLAN 106 [facility] [place] [address] 12/15/2023 11:00 AM EDT Cardiac Studies Cardiac Studies, [facility] 132 [facility] [place] [address] 02/24/2024 2:00 PM EDT Office Visit Rheumatology [place] [address]60 [facility] [place] [address] Sanju Geiger PA-C [facility] [employer] [place] [address] 03/19/2024 1:45 PM EDT Office Visit Dermatology [facility] 200 [facility] [place] [address] Nicolas Moody MD 200 [facility] [place] [address] 05/05/2024 8:30 AM EST Therapy Neuropsychology [facility] 200 [facility] [place] [address] Enrique Kay, PhD 200 [facility] [place] [address] 10/15/2024 2:00 PM EDT Nurse Only Ancillary 65 [facility] 293 [facility], [place] [address] College, Nurse Annual Wellness Visit 65 [facility] 293 [place] [address] 11/01/2024 2:20 PM EDT Office Visit Nephrology, [facility] [address] [place] [address] Baldo Mackey MD 200 [facility] [place] [address] Scheduled Procedures Name Priority Associated Diagnoses Date/Ti me ESOPHAGOGASTRODUODENOSCOPY ( EGD), FLEXIBLE, TRANSORAL, DIAGNOSTIC Recall Anderson's esophagus with esophagitis Health Maintenance Due Date Last Done Comments Zoster Vaccines (1 of 2) 1990 COVID-19 Vaccine (2022- season) 2023 03/21/2023, 05/31/2022, 11/09/2021, Additional history exists Anderson's Esophagus Surveilance 10/26/2023 10/25/2020, 10/25/2020, 04/09/2018 HbA1c 01/19/2024 07/21/2023, 02/24, 11/18/2022, Additional history exists CKD PHOS USE SMARTSET 29017 03/21/202402/24, 12/20/2021, 10/03/2021, Additional history exists Diabetic Foot Exam 03/21/2024 03/21/2023, 1 , 10/16/2020, Additional history exists Diabetic Eye Exam 04/01/2024 04/01/2023, , 06/02/2018, Additional history exists GFR 04/24/2024 10/24/2023, 08/25, 08/11/2023, Additional history exists CKD HGB USE SMARTSET 37476 09/18/202409/18, 09/19/2023, 08/11/2023, Additional history exists Albumin/Creatinine [...] filedocumented as of this encounter Care Teams Edge Inker Uppers Relationship Specialty Start Date End Date Art aCvazos DO PCP - General Internal Medicine 03/22/21 documented as of this encounter
--- OUTSIDE RECORDS SUMMARY | 2024-05-09 10:46 | External Medical Summary | Summary of Care ---
Author Name Unknown Organization [facility] Address [address] [place] [address] Phone [phone] Care Team Providers Care Landscape And Yardwork Laborer Name Role Phone Art Cavazos DO Primary Care Provider [phone] Reason for Visit * Reason Comments Follow Up Encounter Details Date Type Department Care Team (Late st Contact Info) Description 11/19/2023 11:00 AM EDT Office Visit Family Practice [address] [place] [address] [place] [phone] Art Cavazos DO 293 [place], [place] [phone] Type 2 diabetes mellitus with stage 3a [...] Dispensed Refills Start Date End Date Status Audaster SYSTEM W/DEVICE KITIndications:DM type 2, goal A1c [...] goal of less than 7.0% ([facility]) Use to test sugars once [...] long-term current use of insulin ([facility]) TAKE ONE TABLET BY MOUTH 1-4 HOURS BEFORE INTERCOURSE. NO MORE THAN 1 DOSE IN 24 HOURS. 30 Tablet 5 01/03/2023 01/03/2024 Active OneTouch Ultra In Vitro Strip (Glucose Blood)Indications: Type 2 diabetes mellitus with stage 3a chronic kidney disease, without long-term current use of insulin ([facility]) TEST 1 TO 2 TIMES DAILY. 200 Strip 3 04/27/2023 04/26/2024 Active Latanoprost 0.005 % Ophthalmic Solution (Xalatan) Instill 1 Drop into both eyes once daily every evening as directed 10 mL 3 04/30/2023 Active Empagliflozin 25 MG Oral Tablet (Jardiance)Indicat ions:Type 2 diabetes mellitus with stage 3a chronic kidney disease, without long-term current use of insulin ([facility]) Take 1 Tablet by mouth [...] Current Outpatient Medications Medication Sig Dispense Refill Groove ULTRA SYSTEM W/DEVICE KIT Use up to [...] by John Paul Jameson MD at [facility] EGD, FLEXIBLE, DIAGNOSTIC 04/09/2018 Barretts, hiatal hernia, repeat 2 yrs/[facility] EGD, FLEXIBLE, DIAGNOSTIC 10/25/2020 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, small HH / evidence of inflammation, long segment of Anderson's Esophigitis / 2 year recall / ESOPHAGOGASTRODUODENOSCOPY (EGD), FLEXIBLE, TRANSORAL, DIAGNOSTIC performed by Marian Conley DO at [facility] VASECTOMY 1972 Review of patient's allergies indicates: [...] PM EDT Nutrition Services Nutrition Services 65 [facility] 293 [place] [address] Lisa Ma RDN 106 [facility] [place] [address] 12/15/2023 11:00 AM EDT Cardiac Studies Cardiac Studies, [facility] 132 [facility] [place] [address] 02/24/2024 2:00 PM EDT Office Visit Rheumatology [place] [address] [place] [address] Sanju Geiger PA-C [address] [employer] [place] [address] 03/19/2024 1:45 PM EDT Office Visit Dermatology [facility] 200 [facility] [place] [address] Nicolas Moody MD 200 [facility] [place] [address] 05/05/2024 8:30 AM EST Therapy Neuropsychology [facility] 200 [facility] [place] [address] Enrique Kay, PhD 200 [facility] [place] [address] 10/15/2024 2:00 PM EDT Nurse Only Ancillary 65 [facility] 293 [place] [address] College, Nurse Annual Wellness Visit 65 [address] [address] 11/01/2024 2:20 PM EDT Office Visit Nephrology, [facility] [address] [place] [address] Baldo Mackey MD 200 [facility] [place] [address] Pending Results Name Type Priority Associated Diagnoses [...] Additional history exists CKD PHOS USE SMARTSET 98283 03/21/202402/24, 12/20/2021, 10/03/2021, Additional history exists Diabetic Foot Exam 03/21/2024 03/21/2023, 1 , 10/16/2020, Additional history exists Diabetic Eye Exam 04/01/2024 04/01/2023, , 06/02/2018, Additional history exists GFR 04/24/2024 10/24/2023, 08/25, 08/11/2023, Additional history exists CKD HGB USE SMARTSET 22363 09/18/202409/18, 09/19/2023, 08/11/2023, Additional history exists Albumin/Creatinine [...] stated documented in this encounter Care Teams Landscape And Yardwork Laborer Relationship Specialty Start Date End Date Art Cavazos DO [address] [facility] [place] [address] PCP - General Internal Medicine 11/19/23 documented as of this encounter
--- OUTSIDE RECORDS SUMMARY | 2024-05-09 10:46 | External Medical Summary | Summary of Care ---
Author Name Unknown Organization [facility] Address [address] [place] [address] Phone [phone] Care Team Providers Care Program Research Specialist Name Role Phone Art Cavazos DO Primary Care Provider [phone] Encounter Details Date Type Department Care Team (Late st Contact Info) Description 11/20/2023 Documentation HEALTH & WELLNESS Mayra Colon, Health Assignment Manager Allergies Active Allergy Reactions Criticality Noted Date Comments Amoxicillin Fever,Rash Medium 12/29/2013 documented as of this encounter (statuses as of 11/20/2023) Medications Medication Sig Dispensed Refills Start Date End Date Status LearnBoostTOUCH ULTRA SYSTEM W/DEVICE KITIndications:DM type 2, goal [...] as of this encounter (statuses as of 11/20/2023) Active Problems Problem Noted Date Diagnosed Date [...] as of this encounter (statuses as of 11/20/2023) Resolved Problems Problem Noted Date Diagnosed Date [...] as of this encounter (statuses as of 11/20/2023) Immunizations Name Administration Dates Next Due COVID-19 mRNA, LNP-s, No Pre serve, 2-Dose Series (Moderna) 08/02/2020,07/05/2020 COVID-19, MRNA-LNP, 23-24, P F, 30 MCG/0.3 mL, 12 YRS AND ABOVE, IM (Skyonic-Comirnat) 03/21/2023 COVID-19, mRNA, LNP-s, PF, B ooster, [...] encounter Progress Notes * Mayra Colon Health Assignment Manager - 11/20/2023 2:19 PM EDT SESSION TYPE: Group exercise session: Exercise Subtype or Modality: Cardiovascular Training Patient completed a group exercise session which consisted of cardiovascular training. Patient walked for 45 minutes. documented in this encounter Plan of Treatment Upcoming Encounters Date Type Department Care Team (Late st Contact Info) Description 12/12/2023 1:00 PM EDT Nutrition Services Nutrition Services [address] [place] 293 [facility] [place] [address] Lisa Ma RDN 106 [facility] [place] [id number] 12/15/2023 11:00 AM EDT Cardiac Studies Cardiac Studies, [facility] [place] [address] 02/24/2024 2:00 PM EDT Office Visit Rheumatology [facility] 2520 [facility] [place], [place] [address] Sanju Geiger PA-C 2520 [facility] [place] [address] 03/19/2024 1:45 PM EDT Office [facility] 200 [facility] [place] [address] Nicolas Moody MD 200 [facility] [place] [address] 05/05/2024 8:30 AM EST Therapy [facility] 200 [facility] [place] [address] Enrique Kay, PhD 200 [place] [address] 10/15/2024 2:00 PM EDT Nurse Only Ancillary 65 [facility] 293 [facility] [place] [address] College, Nurse Annual Wellness Visit [address] [place] [address] 11/01/2024 2:20 PM EDT Office Visit Nephrology, [facility] [address] [place] [address] Baldo Mackey MD 200 [facility] [place], [place] [address] Scheduled Procedures Name Priority Associated Diagnoses Date/Ti [...] from 1990 (Patient Declined After Education) CKD PHOS USE SMARTSET 35495 03/21/202402/24, 12/20/2021, 10/03/2021, Additional history exists Diabetic Foot Exam 03/21/2024 03/21/2023, 1 , 10/16/2020, Additional history exists Diabetic Eye Exam 04/01/2024 04/01/2023, , 06/02/2018, Additional history exists GFR 04/24/2024 10/24/2023, 08/25, 08/11/2023, Additional history exists HbA1c 05/20/2024 11/19/2023, 06/27, 03/21/2023, Additional history exists CKD HGB USE SMARTSET 30696 09/18/202409/18, 09/19/2023, 08/11/2023, Additional history exists Albumin/Creatinine [...] filedocumented as of this encounter Care Teams Program Research Specialist Relationship Specialty Start Date End Date Art Cavazos DO [address] [facility] [place] [address] PCP - General Internal Medicine 11/19/23 documented as of this encounter
--- OUTSIDE RECORDS SUMMARY | 2024-05-09 10:46 | External Medical Summary | Summary of Care ---
Author Name Unknown Organization [facility] Address [address] [place] [address] Phone [phone] Care Team Providers Care Amalgamator Name Role Phone Art Cavazos DO Primary Care Provider [phone] Encounter Details Date Type Department Care Team (Late st Contact Info) Description 11/25/2023 Documentation HEALTH & WELLNESS Mayra Colon, Health Novelty Twister Operator Allergies Active Allergy Reactions Criticality Noted Date Comments Amoxicillin Fever,Rash Medium 12/29/2013 documented as of this encounter (statuses as of 11/25/2023) Medications Medication Sig Dispensed Refills Start Date End Date Status Prospero BioSciencesTOUCH ULTRA SYSTEM W/DEVICE KITIndications:DM type 2, goal [...] as of this encounter (statuses as of 11/25/2023) Active Problems Problem Noted Date Diagnosed Date [...] as of this encounter (statuses as of 11/25/2023) Resolved Problems Problem Noted Date Diagnosed Date [...] as of this encounter (statuses as of 11/25/2023) Immunizations Name Administration Dates Next Due COVID-19 mRNA, LNP-s, No Pre serve, 2-Dose Series (Moderna) 08/02/2020,07/05/2020 COVID-19, MRNA-LNP, 23-24, P F, 30 MCG/0.3 mL, 12 YRS AND ABOVE, IM (Beeline-Comirnat) 03/21/2023 COVID-19, mRNA, LNP-s, PF, B ooster, [...] encounter Progress Notes * Mayra Colon Health Novelty Twister Operator - 11/25/2023 1:50 PM EDT SESSION TYPE: Group exercise session: Exercise Subtype or Modality: Resistance Training Patient completed a group exercise session which consisted of resistance training. Body weight, kettlebell and dumbbells were used for the exercises. He tolerated exercise well and had no complaints. documented in this encounter Plan of Treatment Upcoming Encounters Date Type Department Care Team (Late st Contact Info) Description 12/12/2023 1:00 PM EDT Nutrition Services Nutrition Services [address] [place] 293 [place] [address] Lisa Ma RDN 106 [facility] [place] [address] 12/15/2023 11:00 AM EDT Cardiac Studies Cardiac Studies, [facility] [address] [place] [address] 03/01/2024 8:30 AM EDT Office Visit Rheumatology [facility] 2520 [facility] [place] [address] Sarah Stroud CRNP 2520 [facility] [place] [address] 03/19/2024 1:45 PM EDT Office Visit Dermatology [facility] [address] [place] [address] Nicolas Moody MD 200 [facility] [place] [address] 05/05/2024 8:30 AM EST Therapy Neuropsychology [facility] 200 [facility] [place] [address] Enrique Kay, PhD 200 [facility] [place] [address] 10/15/2024 2:00 PM EDT Nurse Only Ancillary 65 [facility] 293 [place] [address] College, Nurse Annual Wellness Visit [address] [place] [address] 11/01/2024 2:20 PM EDT Office Visit Nephrology, [facility] [address] [place], [place] [address] Baldo Mackey MD 200 [facility] [place], [place] [address] Scheduled Procedures Name Priority Associated Diagnoses Date/Ti me ESOPHAGOGASTRODUODENOSCOPY ( EGD), FLEXIBLE, TRANSORAL, DIAGNOSTIC Recall Anderson's esophagus with esophagitis Health Maintenance Due Date Last Done Comments Zoster Vaccines (1 of 2) 1990 COVID-19 Vaccine (2022-24 season) 2023 03/21/2023, 05/31/2022, 11/09/2021, Additional history exists Anderson's Esophagus Surveilance 10/26/2023 10/25/2020, 10/25/2020, 04/09/2018 Influenza Vaccine (FLU shot) (#1) 2024 03/21/2023, 02/04/2022, 03/27/2021, Additional history exists CKD PHOS USE SMARTSET 16972 03/21/202402/24, 12/20/2021, 10/03/2021, Additional history exists Diabetic Foot Exam 03/21/2024 03/21/2023, 1 , 10/16/2020, Additional history exists Diabetic Eye Exam 04/01/2024 04/01/2023, , 06/02/2018, Additional history exists GFR 04/24/2024 10/24/2023, 08/25, 08/11/2023, Additional history exists HbA1c 05/20/2024 11/19/2023, 06/27, 03/21/2023, Additional history exists CKD HGB USE SMARTSET 45119 09/18/202409/18, 09/19/2023, 08/11/2023, Additional history exists Albumin/Creatinine Ratio 10/09/2024 024, 11/18/2022, 11/20/2021, Additional history exists Depression Screening 10/09/2024 10/10/2023, 10/10/19 24 DTaP,Tdap,and Td Vaccines (2 - Td or Tdap) 05/23/2031 05/23/2021 Pneumococcal Vaccine: 65+ Years Completed 09/29/2015, 12/22/2009 GARDASIL-HPV IMMUNIZATION SERIES Aged Out No longer eligible based on patient's age to complete this topic Hepatitis B Aged Out No longer eligi ble based on patient's age to complete this topic MENINGOCOCCAL (MENACTRA/MENVEO) Aged Out No longer eligible based on patient's age to complete this topic documented as of this encounter Medical Devices Not on filedocumented as of this encounter Care Teams Amalgamator Relationship Specialty Start Date End Date Art Cavazos DO [address] [facility] [address] PCP - General Internal Medicine 11/19/23 documented as of this encounter
--- OUTSIDE RECORDS SUMMARY | 2024-05-09 10:46 | External Medical Summary ---
Author Name Unknown Address Unknown Organization [id number]:[facility] [place] 100 [facility] [address] Laboratory Report Ordering Provider Test Date Status LUCINDA DELAGDO 11/19/2023 11:06:14 Final Observation Date Value Abnormality Reference (Units ) Status Triglyceride 11/19/2023 11:06:14 121 <=174 ( mg/dL) Final Triglyceride Reference Range s (mg/dL):
<150 Acceptable
150-174 Borderline high
175-499 High
>=500 Very high Cholesterol 11/19/2023 11:06:14 169 <200 (mg /dL) Final Total Cholesterol Reference Ranges (mg/dL):
<200 Desirable
200-239 Borderline high
>=240 High HDL 11/19/2023 11:06:14 51 >39 (mg/dL ) Final HDL Cholesterol Reference Ra nges (mg/dL):
>=60 High (Desirable)
<50 Low (Undesirable) For Females
<40 Low (Undesirable) For Males NON-HDL CHOLESTEROL 11/19/2023 11:06:14 118 <=159 (mg/dL) Final Non-HDL Cholesterol Referenc e Range (mg/dL):
<100 Target level for high risk ASCVD patient
<130 Optimal for general population
130-159 Near optimal for general population
160-189 Borderline High
190-219 High
>=220 Very High LDL, (calculated) 11/19/2023 11:06:14 94 <= 129 (mg/dL) Final LDL Cholesterol Reference Ra nges (mg/dL):
<70 Target level for high risk ASCVD patient
<100 Optimal for general population
100-129 Near optimal for general population
130-159 Borderline high
160-189 High
>=190 Very high Performing Location [facility] [place] [address] [place] [address]
--- OUTSIDE RECORDS SUMMARY | 2024-05-09 10:46 | External Medical Summary | Summary of Care ---
Author Name Unknown Organization [facility] Address [address] [place] [address] Phone [phone] Care Team Providers Care Service Tester Name Role Phone Danny Cavazos DO Primary Care Provider Reason for Visit * Reason Comments Medication Refill Encounter Details Date Type Department Care Team (Late st Contact Info) Description 11/23/2023 Refill Family Practice [address] [place] [address] [place] [address] Danny Cavazos DO [address] [place], [place] [id number] Encounter for long-term (current) use of other medications* Allergies Active Allergy Reactions Criticality Noted Date Comments Amoxicillin Fever,Rash Medium 12/29/2013 documented as of this encounter (statuses as of 11/24/2023) Medications Medication Sig Dispensed Refills Start Date End Date Status [employer] SYSTEM W/DEVICE KITIndications:D M type 2, goal [...] 60 Tab 11 07/02/2020 Active OneTouch UltraSoft LancetsIndicatio ns:Type 2 diabetes mellitus with hemoglobin A1c goal of less than 7.0% ([facility]) Use to test sugars once daily 100 Each 3 08/29/2021 Active Vitamin D-400 10 MCG (400 UNIT) Oral Tablet (cholecalciferol (VIT D3))Indications: Vitamin D deficiency Take 2 Tablets by mouth daily. 120 Tablet 3 07/08/2022 Active Sildenafil Citrate 20 MG Oral Tablet (Revatio)Indicat ions:Type 2 diabetes mellitus with stage 2 chronic kidney disease, without long-term current use of insulin ([facility]) TAKE ONE TABLET BY MOUTH 1-4 HOURS BEFORE INTERCOURSE. NO MORE THAN 1 DOSE IN 24 HOURS. 30 Tablet 5 01/03/2023 01/03/2024 Active OneTouch Ultra In Vitro Strip (Glucose Blood)Indication s:Type 2 diabetes mellitus with stage 3a chronic kidney disease, without long-term current use of insulin ([facility]) TEST 1 TO 2 TIMES DAILY. 200 Strip 3 04/27/2023 04/26/2024 Active Latanoprost 0.005 % Ophthalmic Solution (Xalatan) Instill 1 Drop into both eyes once daily every evening as directed 10 mL 3 04/30/2023 Active Empagliflozin 25 MG Oral Tablet (Jardiance)Indic ations:Type 2 diabetes mellitus with stage 3a chronic kidney disease, without long-term current use of insulin ([facility]) Take 1 Tablet by mouth in [...] MORNING. 100 Capsule 3 11/24/2023 11/23/2024 Active Omeprazole 40 MG Oral Capsule Delayed Release (PriLOSEC) TAKE 1 CAPSULE BY MOUTH IN THE MORNING. 100 Capsule 3 10/18/2022 11/23/2023 Discontinued (Refill) documented as of this encounter (statuses as of 11/24/2023) Active Problems Problem Noted Date Diagnosed Date [...] as of this encounter (statuses as of 11/24/2023) Resolved Problems Problem Noted Date Diagnosed Date [...] as of this encounter (statuses as of 11/24/2023) Immunizations Name Administration Dates Next Due COVID-19 [...] No 03/21/2023 Does the household have a [facility] source of income? (Household - for [...] encounter Miscellaneous Notes * Telephone Encounter - Yaneli Kitchen, [facility] - 11/24/2023 9:38 AM EDT Signed Prescriptions: Disp Refills Omeprazole 40 MG Oral Capsule Delayed Rele*100 Ca*3 Sig: TAKE 1 CAPSULE BY MOUTH IN THE MORNING.Authorizing Provider: DANNY CAVAZOS User: YANELI KITCHEN * Telephone Encounter - Yaneli Kitchen [facility] - 11/24/2023 9:24 AM EDT Per refill protocol patient needs magnesium and vitamin B-12 labs on file within the past 2 years while using PPIs. Lab work ordered. Patient may obtain with next routine labs. Thank you, Pelon Kitchen, PharmD Clinical Pharmacist [facility]) 11/24/23 9:38 AM [phone] documented in this encounter Plan of Treatment Upcoming Encounters Date Type Department Care Team (Late st Contact Info) Description 12/12/2023 1:00 PM EDT Nutrition Services Nutrition Services [address] [place] [address] 293 [facility], [place] [address] Lisa Ma RDN [address] [place] [address] [place] [address] 12/15/2023 11:00 AM EDT Cardiac Studies Cardiac Studies, [facility] 132 [facility] [place] [address] 03/01/2024 8:30 AM EDT Office Visit Rheumatology [facility] 05[address] [facility] [place], [place] [address] Sarah Stroud CRNP [address] [facility] [place] [address] 03/19/2024 1:45 PM EDT Office Visit Dermatology [facility] [address] [place] [address] Nicolas Moody MD 200 [facility] [place] [id number] 05/05/2024 8:30 AM EST Therapy Neuropsychology [facility] Tamika [place] 200 [facility] [place] [address] Enrique Kay, PhD 200 [facility] [place] [address] 10/15/2024 2:00 PM EDT Nurse Only Ancillary 65 [facility] [address] [place] [address] College, Nurse Annual Wellness Visit [address] [address] 11/01/2024 2:20 PM EDT Office Visit Nephrology, [facility] 200 [facility] [place] [address] Baldo Mackey MD 200 [facility] [place] [address] Scheduled Orders Name Type Priority Associated Diagnoses Orde r Schedule VITAMIN B12 Lab Routine Encounter for long-term (current) use of other medications Expected: 12/08/2023 (Approximate), Expires: 11/23/2024 MAGNESIUM Lab Routine Encounter for long-term (current) use of other medications Expected: 12/08/2023 (Approximate), Expires: 11/23/2024 Scheduled Procedures Name Priority Associated Diagnoses Date/Ti [...] Additional history exists CKD PHOS USE SMARTSET 73955 03/21/202402/24, 12/20/2021, 10/03/2021, Additional history exists Diabetic Foot Exam 03/21/2024 03/21/2023, 1 , 10/16/2020, Additional history exists Diabetic Eye Exam 04/01/2024 04/01/2023, , 06/02/2018, Additional history exists GFR 04/24/2024 10/24/2023, 08/25, 08/11/2023, Additional history exists HbA1c 05/20/2024 11/19/2023, 06/27, 03/21/2023, Additional history exists CKD HGB USE SMARTSET 58641 09/18/202409/18, 09/19/2023, 08/11/2023, Additional history exists Albumin/Creatinine [...] as of this encounter Visit Diagnoses Diagnosis Encounter for long-term (current) use of other medications- Primary documented in this encounter Care Teams Service Tester Relationship Specialty Start Date End Date Danny Cavazos DO [address] [place] [address] PCP - General Internal Medicine 11/19/23 documented as of this encounter
--- OUTSIDE RECORDS SUMMARY | 2024-05-09 10:46 | External Medical Summary | Summary of Care ---
Author Name Unknown Organization [facility] Address [address] [place] [address] Phone [phone] Care Team Providers Care Tube Making Machine Operator Name Role Phone Art Cavazos DO Primary Care Provider [phone] Encounter Details Date Type Department Care Team (Late st Contact Info) Description 11/26/2023 Documentation HEALTH & WELLNESS Mayra Colon, Health Broadcast Field Supervisor Allergies Active Allergy Reactions Criticality Noted Date Comments Amoxicillin Fever,Rash Medium 12/29/2013 documented as of this encounter (statuses as of 11/26/2023) Medications Medication Sig Dispensed Refills Start Date End Date Status [employer] DevicesTOUCH ULTRA SYSTEM W/DEVICE KITIndications:DM type 2, goal [...] as of this encounter (statuses as of 11/26/2023) Active Problems Problem Noted Date Diagnosed Date [...] as of this encounter (statuses as of 11/26/2023) Resolved Problems Problem Noted Date Diagnosed Date [...] as of this encounter (statuses as of 11/26/2023) Immunizations Name Administration Dates Next Due COVID-19 mRNA, LNP-s, No Pre serve, 2-Dose Series (Moderna) 08/02/2020,07/05/2020 COVID-19, MRNA-LNP, 23-24, P F, 30 MCG/0.3 mL, 12 YRS AND ABOVE, IM ([employer]) 03/21/2023 COVID-19, mRNA, LNP-s, PF, B ooster, [...] encounter Progress Notes * Mayra Colon Health Broadcast Field Supervisor - 11/26/2023 4:03 PM EDT SESSION TYPE: Group exercise session: Exercise Subtype or Modality: Balance Training Patient completed a group exercise session which consisted of balance training. All exercises included improving balance and strength of lower extremities. He tolerated the exercises well and had no complaints. * Mayra Colon Health Broadcast Field Supervisor - 11/26/2023 4:03 PM EDT SESSION TYPE: Group exercise [...] PM EDT Nutrition Services Nutrition Services [address] [place] [address] Lisa Ma RDN 106 [facility] [place] [address] 12/15/2023 11:00 AM EDT Cardiac Studies Cardiac Studies, [facility] 132 [facility] [place] [address] 03/01/2024 8:30 AM EDT Office Visit Rheumatology [place] [address] [facility] [place] [address] Sarah Stroud CRNP [address] [place] [address] [place] [address] 03/19/2024 1:45 PM EDT Office Visit Dermatology [facility] 200 [facility] [address] [place] [address] Nicolas Moody MD 200 [facility] [place] [address] 05/05/2024 8:30 AM EST Therapy Neuropsychology [facility] [address] [place] [address] Enrique Kay, PhD 200 [facility] [place] [address] 10/15/2024 2:00 PM EDT Nurse Only Ancillary [address] [place] [address] College, Nurse Annual Wellness Visit [address] [place] [address] 11/01/2024 2:20 PM EDT Office Visit Nephrology, [facility] [address] [address] [address] Baldo Mackey MD 200 [facility] [place] [address] Scheduled Procedures Name Priority Associated Diagnoses Date/Ti [...] Additional history exists CKD PHOS USE SMARTSET 29910 03/21/202402/24, 12/20/2021, 10/03/2021, Additional history exists Diabetic Foot Exam 03/21/2024 03/21/2023, 1 , 10/16/2020, Additional history exists Diabetic Eye Exam 04/01/2024 04/01/2023, , 06/02/2018, Additional history exists GFR 04/24/2024 10/24/2023, 08/25, 08/11/2023, Additional history exists HbA1c 05/20/2024 11/19/2023, 06/27, 03/21/2023, Additional history exists CKD HGB USE SMARTSET 85620 09/18/202409/18, 09/19/2023, 08/11/2023, Additional history exists Albumin/Creatinine [...] filedocumented as of this encounter Care Teams Tube Making Machine Operator Relationship Specialty Start Date End Date Art Cavazos DO 293 [place] [address] PCP - General Internal Medicine 11/19/23 documented as of this encounter
== END 2024-05-09 06:20 | disposition short-term general hospital (02) | DRG 66 ==
LOC: ED 11:51 → 1E 12:06

== ENCOUNTER 2024-05-18 10:52 | Inpatient (IN) ==
--- NOTE | 2024-05-18 11:05 | Emergency Department Note ---
Impression & Plan AMS (altered mental status), CVA (cerebral vascular accident), MICHAEL (acute kidney injury) ED Provider Note NAME: SOPHIE ORDONEZ AGE: 84 SEX: M : 1940 ARRIVES VIA: Ambulance INFORMANT: Patient ED PROVIDER(S): Selwyn Horowitz DO CHIEF COMPLAINT: Altered mental status HPI: Patient is an 84-year-old female with a past medical history of CVA, GI bleed, hypertension, alcohol use, CKD, diabetes who presents to the ER for altered mental status. Patient just recently got [facility]. He was agitated last night given 75 mg of Seroquel. He has been sleeping since then and they been unable to wake him up. His baseline is normally awake and alert intermittently following commands but impulsive and confused. Patient is unable to provide any history. ADDITIONAL HISTORY OBTAINED: Per HPI Chronic Medical/Social Conditions Affecting Care: Per HPI PAST MEDICAL HISTORY:See Below PAST SURGICAL HISTORY:See Below FAMILY HISTORY:See Below SOCIAL HISTORY:See Below HOME MEDICATIONS:See Below ALLERGIES:See Below VITALS:See Below PHYSICAL EXAMINATION: GENERAL: Sitting up in bed, eyes closed, moans to pain and withdraws all extremities EYE EXAM: normal conjunctiva. PERRL and EOM's grossly intact. OROPHARYNX: no exudate, no erythema, lips, buccal mucosa, and tongue normal and mucous membranes are moist NECK: supple, no nuchal rigidity, no adenopathy, non-tender LUNGS: Clear to auscultation. Normal chest wall mechanics HEART: no murmurs, S1 normal and S2 normal ABDOMEN: abdomen soft, non-tender, normo-active bowel sounds, no masses, no rebound or guarding. BACK: Back is symmetrical on inspection and there is no deformity, no midline tenderness, no CVA tenderness. SKIN: no rashes and no bruising UPPER EXTREMITIES: upper extremities are grossly normal. LOWER EXTREMITIES: No pitting edema. NEURO EXAM: Eyes are closed and moans to pain and withdraws all extremities MEDICAL DECISION MAKING: Patient is an 84-year-old male who presents ER for the above-stated complaint. IV was established and blood work was obtained. Labs show no significant leukocytosis or anemia. INR unremarkable. BMP with a creatinine 1.8 up from a baseline of 1.3. LFTs and bilirubin is unremarkable. Troponin negative. Lipase normal. UA was clean without any white cells to suggest infection. COVID was negative. CT of the head showed new subacute strokes. No obvious large bleeds or masses. Case was discussed with the hospitalist for further evaluation management treatment. Consults/Care Managements Discussions: Per MDM Triage Nursing notes reviewed. Limited review of prior medical records performed Vital Signs: reviewed and remarkable for no significant abnormalities Differential diagnosis: Differential diagnoses includes but is not limited to toxic, metabolic, infectious, traumatic, cardiac, neurologic, hematologic, psychiatric and inflammatory etiologies. ER treatment provided: See below Diagnostics interpreted by me include EKG and cardiac monitoring as listed below: -Cardiac Monitoring: An order was placed for continuous cardiac monitoring. The monitor shows a rate of 80 with sinus rhythm. -ECG: none -Laboratory studies:Interpreted by me as stated above in MDM and shown below. 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 (CVA) Recent cerebrovascular accident (CVA) Acute drug-induced confusion Acute hyponatremia (Acute) Acute CVA (cerebrovascular accident) (Acute) Acute on chronic kidney failure Medical History (Updated 05/18/24 @ 14:07 by Selwyn Horowitz DO) Diverticulitis GI bleed Alcohol use HTN (hypertension) CKD (chronic kidney disease), stage III Diabetes mellitus, type II GERD (gastroesophageal reflux disease) Surgical History (Updated 05/18/24 @ 13:53 by Eleanor Maynard PA-C) History of vasectomy History of colonoscopy Family History Other Alzheimer disease Social History Smoking Status: Unknown if ever smoked Tobacco Type: Pipe Second Hand Exposure: No; Do You Dip or Chew Tobacco: No; Hx Alcohol Use: Yes Alcohol type: beer, wine and hard liquor Alcohol Intake Frequency Comment: average 3 drinks per day Hx Substance Use: No Preferred Language: Tongan Communication Ability: Effective Flare Breaker Required: No Beliefs That Will Affect Care: None Current Living Situation: Alone Feels Safe at Home: Yes Assistive Devices: None Allergies Allergies Allergy/AdvReac Type Severity Reaction Status Date / Time amoxicillin Allergy Mild FEVER, RASH Verified 07/18/22 20:15 Home Meds Home Medications Medication Instructions Recorded Confirmed aspirin 81 mg tablet,delayed 81 mg PO DAILY 07/18/22 05/18/24 release cholecalciferol (vitamin D3) 10 20 mcg PO DAILY 07/18/22 05/18/24 mcg (400 unit) tablet (Vitamin D3) cyanocobalamin (vitamin B-12) 1,000 mcg PO QPM 07/18/22 05/18/24 1,000 mcg tablet (Vitamin B-12) empagliflozin 25 mg tablet 25 mg PO QAM 07/18/22 05/18/24 (Jardiance) ferrous sulfate 325 mg (65 mg 325 mg PO QPM 07/18/22 05/18/24 iron) tablet rdtpjdaofen-ietwdmdcf-rjb C-Mn 500 1 cap PO AMHS 07/18/22 05/18/24 mg-400 mg capsule omeprazole 40 mg capsule,delayed 40 mg PO QAM 07/18/22 05/18/24 release sildenafil (pulm.hypertension) 20 20 mg PO DIRECTED 1-4 hr before 07/18/22 05/18/24 mg tablet sex allopurinol 100 mg tablet 100 mg PO DAILY 05/08/24 05/18/24 hydralazine 10 mg tablet 10 mg PO DAILY 05/08/24 05/18/24 latanoprost 0.005 % eye drops 1 drp OPB QPM 05/08/24 05/18/24 Results & Data (ED) Vital Signs Vital Signs - 24 hr 05/18/24 10:59 05/18/24 10:59 05/18/24 11:00 Temperature 36.8 C Temperature Source Oral Pulse Rate 78 64 Pulse Rate from SpO2 Sensor Pulse Rhythm Regular Pulse Strength Normal Respiratory Rate 16 Respiratory Effort / Characteristics Non-Labored Spontaneous Respiratory Depth Normal Respiratory Pattern Regular Blood Pressure 125/81 Blood Pressure Mean 95 Blood Pressure Position Lying Pulse Oximetry 96 96 Oxygen Delivery Method Room Air Room Air Sepsis Recent Fever Within 48 Hours No Sepsis New/Unexplained Change in Mental Status N/A Sepsis Action Taken by Nursing No Action Required 05/18/24 11:15 12/24/24 11:30 05/18/24 12:24 Temperature Temperature Source Pulse Rate 71 74 66 Pulse Rate from SpO2 Sensor 71 74 66 Pulse Rhythm Pulse Strength Respiratory Rate 12 15 Respiratory Effort / Characteristics Respiratory Depth Respiratory Pattern Blood Pressure 127/78 139/77 122/83 Blood Pressure Mean 94 97 96 Blood Pressure Position Pulse Oximetry 98 98 96 Oxygen Delivery Method Sepsis Recent Fever Within 48 Hours Sepsis New/Unexplained Change in Mental Status Sepsis Action Taken by Nursing Laboratory Data 05/18/24 11:21 05/18/24 11:21 Lab Results 05/18/24 05/18/24 05/18/24 Range/Units 11:15 11:21 12:36 WBC 9.49 (4.8-10.8) K/ul RBC 5.26 (4.70-6.10) M/uL Hgb 15.5 (14.0-18.0) g/dl Hct 46.3 (42.0-52.0) % MCV 88.0 (80.0-100.0) fL MCH 29.5 (25.0-34.0) pg MCHC 33.5 (32.0-36.0) g/dL RDW Std Deviation 45.8 (36.4-46.3) fL RDW Coeff of Vaibhav 14.1 (11.5-14.5) % Plt Count 313 (130-400) K/uL MPV 9.9 (9.4-12.4) fL Immature Gran % (Auto) 0.7 % Neut % (Auto) 76.8 % Lymph % (Auto) 14.0 % [place] % (Auto) 7.2 % Eos % (Auto) 0.4 % Baso % (Auto) 0.9 % Neut # (Auto) 7.28 H (1.40-6.50) K/uL Lymph # (Auto) 1.33 (1.20-3.40) K/uL [place] # (Auto) 0.68 H (0.11-0.59) K/uL Eos # (Auto) 0.04 (0.00-0.50) K/uL Baso # (Auto) 0.09 (0.00-0.20) K/uL Immature Gran # (Auto) 0.07 (0.01-0.20) K/uL PT 11.7 (9.0-12.0) Seconds INR 1.1 (0.9-1.1) Sodium 142 (136-145) mmol/L Potassium 4.4 (3.5-5.1) mmol/L Chloride 106 (98-107) mmol/L Carbon Dioxide 26 (21-32) mmol/L Anion Gap 10 (3-11) BUN 51 H (6-23) mg/dl Creatinine 1.85 H (0.6-1.4) mg/dl Est Cr Clr Drug Dosing Not Reportable eGFR 35.47 BUN/Creatinine Ratio 27.6 H (10-20) Glucose 168 H (70-99(Fasting)) mg/dl Calcium 9.8 (8.6-10.3) mg/dl Total Bilirubin 1.1 H (0.2-1.0) mg/dl AST 21 (13-39) U/L ALT 20 (7-52) U/L Alkaline Phosphatase 77 (34-104) U/L Troponin I High Sens 15.5 (0-20) pg/ml Total Protein 7.7 (6.0-8.3) gm/dl Albumin 4.0 (3.4-5.0) gm/dl Globulin 3.7 (2.5-4.0) gm/dl Albumin/Globulin Ratio 1.1 (0.9-2) Lipase 16 (11-82) U/L Urine Color Dark Yellow Urine Appearance Clear (Clear) Urine pH 5.0 (4.5-7.5) Ur Specific Crosby 1.023 (1.000-1.030) Urine Protein 3+ H (Negative) Urine Glucose (UA) 3+ H (Negative) Urine Ketones Trace H (Negative) Urine Blood 3+ H (Negative) Urine Nitrite Negative (Negative) Urine Bilirubin 1+ H (Negative) Urine Urobilinogen Negative (Negative) Ur Leukocyte Esterase Negative (Negative) Urine WBC (Auto) 0-5 (0-5) /hpf Urine RBC (Auto) >20 H (0-2) /hpf U Hyaline Cast (Auto) 3-5 H (0-2) /lpf U Epithel Cells (Auto) 0-2 (0-2) /hpf Urine Bacteria (Auto) None Seen (None Seen) Hyaline Casts Present A (None Presnt) /lpf SARS-CoV-2, RNA, NAAT NEGATIVE (NEGATIVE) Administered Medications Sodium Chloride (Nss) 1,000 mls @ 100 mls/hr IV .Q10H CRISTIAN Stop: 05/19/24 13:29 Last Admin: 05/18/24 13:53 Dose: 100 mls/hr Documented By: BRYANT Imaging Data Radiologist's Impression: Head CT 05/18/24 10:59 CT OF THE HEAD WITHOUT CONTRAST CLINICAL HISTORY: Altered mental status. COMPARISON STUDY: MRI of the brain and head CT and CTA of the head May 08, 2024. Head CT May 09, 2024. CT DOSE: 625.8 mGy.cm TECHNIQUE: Helical axial images of the head were obtained without IV contrast. Automated exposure control was utilized for the study. A dose lowering technique was utilized adhering to the principles of ALARA. FINDINGS: No acute intracranial hemorrhage, midline shift or mass effect is present. Ventricular system is unremarkable. Basal cisterns are patent. There are no extra-axial collections. A 5.3 cm hypodense focus with loss of crump-white differentiation within the left parietal lobe is noted. This favors a subacute infarct which has increased in extent since MRI of May 08, 2024. A few additional suspected subacute infarcts within left basal ganglia and left diego radiata are present. There is no mass effect. There is no evidence for hemorrhagic conversion. Punctate radiodensities within the left parietal lobe infarct favor calcifications. IMPRESSION: 1. No acute intracranial hemorrhage. No mass effect. 2. 5.3 cm hypodense focus with loss of crump-white differentiation within the left parietal lobe. This favors a subacute infarct with increase in extent since MRI of May 08, 2024. Several additional suspected subacute infarcts within the left basal ganglia and left diego radiata. ACT 112: Negative or not required by law. Electronically signed by: Issa Graf M.D. 05/18/2024 12:23 PM Chest X-Ray 05/18/24 11:00 XR chest 1V portable CLINICAL HISTORY: Altered mental status COMPARISON STUDY: Chest radiograph April 08, 2018. FINDINGS: Lung volumes are normal. There is no consolidation. Linear right lower lung density suggests atelectasis. There is no pneumothorax or pleural effusion. Cardiac size is normal. Mediastinal contours are normal. There is no evidence for pulmonary edema. IMPRESSION: No acute cardiopulmonary findings. ACT 112: Negative or not required by law. Electronically signed by: Issa Graf M.D. 05/18/2024 11:41 AM Discharge Plan Visit Data Chief Complaint: Lethargic Stated Complaint: LATHARGIC ED Provider: Selwyn Horowitz Discharge Problem: AMS (altered mental status), CVA (cerebral vascular accident), MICHAEL (acute kidney injury) Forms Stand Alone Forms: [facility] Prescriptions Prescriptions: No Action cyanocobalamin (vitamin B-12) [Vitamin B-12] 1,000 mcg Tablet 1,000 mcg PO QPM omeprazole 40 mg capsule,delayed release(DR/EC) 40 mg PO QAM aspirin [Aspir-Low] 81 mg Tablet,Delayed Release (Dr/Ec) 81 mg PO DAILY ferrous sulfate 325 mg (65 mg iron) Tablet 325 mg PO QPM cholecalciferol (vitamin D3) [Vitamin D3] 10 mcg (400 unit) Tablet 20 mcg PO DAILY rbbwufhodwu-bvuaxrznm-smm C-Mn [Glucosamine Complex] 500-400 mg Capsule 1 cap PO AMHS sildenafil (pulm.hypertension) 20 mg Tablet 20 mg PO DIRECTED Rx Instructions: administer doses at least 4-6 hours apart Jardiance 25 mg tablet 25 mg PO QAM latanoprost 0.005 % drops 1 drp OPB QPM hydralazine 10 mg tablet 10 mg PO DAILY allopurinol 100 mg tablet 100 mg PO DAILY Referrals Referrals: Art Cavazos DO [Primary Care Provider] - Discharge Problem: AMS (altered mental status) Qualifiers: Altered mental status type: unspecified Qualified Code(s): R41.82 - Altered mental status, unspecified CVA (cerebral vascular accident) Qualifiers: CVA mechanism: unspecified Qualified Code(s): I63.9 - Cerebral infarction, unspecified
--- NOTE | 2024-05-18 11:43 | XRay Report ---
XR chest 1V portable CLINICAL HISTORY: Altered mental status COMPARISON STUDY: Chest radiograph April 08, 2018. FINDINGS: Lung volumes are normal. There is no consolidation. Linear right lower lung density suggest s atelectasis. There is no pneumothorax or pleural effusion. Cardiac size is normal. Mediastinal cont ours are normal. There is no evidence for pulmonary edema. IMPRESSION: No acute cardiopulmonary findings. ACT 112: Negative or not required by law. Electronically signed by: Issa Graf M.D. 05/18/2024 11:41 AM
[2024-05-18 11:51] LABS: Basophils # (auto) 0.09 K/uL (0.00-0.20); Basophils % (auto) 0.9 %; Eosinophils # (auto) 0.04 K/uL (0.00-0.50); Eosinophils % (auto) 0.4 %; Hematocrit (blood only) 46.3 % (42.0-52.0); Hemoglobin 15.5 g/dl (14.0-18.0); Immature Granulocytes # (auto) 0.07 K/uL (0.01-0.20); Immature Granulocytes % (auto) 0.7 %; Lymphocytes # (auto) 1.33 K/uL (1.20-3.40); Mean Corpuscular Hemoglobin 29.5 pg (25.0-34.0); Mean Corpuscular Hgb Conc 33.5 g/dL (32.0-36.0); Mean Platelet Volume 9.9 fL (9.4-12.4); Monocytes # (auto) 0.68 K/uL (0.11-0.59); Monocytes % (auto) 7.2 %; Neutrophils # (auto) 7.28 K/uL (1.40-6.50); Neutrophils % (auto) 76.8 %; Platelet Count 313 K/uL (130-400); RDW Coefficient of Variation 14.1 % (11.5-14.5); RDW Standard Deviation 45.8 fL (36.4-46.3); Red Blood Count 5.26 M/uL (4.70-6.10); White Blood Count 9.49 K/ul (4.8-10.8)
[2024-05-18 11:55] LABS: Alanine Aminotransferase 20 U/L (7-52); Albumin Globulin Ratio 1.1 (0.9-2); Alkaline Phosphatase 77 U/L (34-104); Anion Gap 10 (3-11); Aspartate Aminotransferase 21 U/L (13-39); BUN Creatinine Ratio 27.6 (10-20); Bilirubin,Total 1.1 mg/dl (0.2-1.0); Blood Urea Nitrogen 51 mg/dl (6-23); Calcium 9.8 mg/dl (8.6-10.3); Carbon Dioxide 26 mmol/L (21-32); Chloride 106 mmol/L (98-107); Globulin 3.7 gm/dl (2.5-4.0); Glucose 168 mg/dl (70-99(Fasting)); Lipase 16 U/L (11-82); Potassium 4.4 mmol/L (3.5-5.1); Sodium 142 mmol/L (136-145); Total Protein 7.7 gm/dl (6.0-8.3)
[2024-05-18 11:58] LABS: Appearance Urine Clear (Clear); Bacteria Urine Automated None Seen (None Seen); Bilirubin Urine 1+ (Negative); Blood Urine 3+ (Negative); Color Urine Dark Yellow; Epithelial Cell Urine Auto 0-2 /hpf (0-2); Glucose Urine UA 3+ (Negative); Hyaline Casts Urine Present /lpf (None Presnt); Ketones Urine Trace (Negative); Leukocyte Esterase Urine Negative (Negative); Nitrite Urine Negative (Negative); Protein Urine 3+ (Negative); RBC Urine Automated >20 /hpf (0-2); Specific Gravity Urine 1.023 (1.000-1.030); Urobilinogen Urine Negative (Negative); WBC Urine Automated 0-5 /hpf (0-5)
[2024-05-18 12:01] LABS: Troponin I High Sensitivity 15.5 pg/ml (0-20)
[2024-05-18 12:12] LABS: INR 1.1 (0.9-1.1); Prothrombin Time 11.7 Seconds (9.0-12.0)
--- NOTE | 2024-05-18 12:25 | CT Scan Report ---
CT OF THE HEAD WITHOUT CONTRAST CLINICAL HISTORY: Altered mental status. COMPARISON STUDY: MRI of the brain and head CT and CTA of the head May 08, 2024. Head CT Dece er 2023. CT DOSE: 625.8 mGy.cm TECHNIQUE: Helical axial images of the head were obtained without IV contrast. Automated exposure con trol was utilized for the study. A dose lowering technique was utilized adhering to the principles o f ALARA. FINDINGS: No acute intracranial hemorrhage, midline shift or mass effect is present. Ventricular syst em is unremarkable. Basal cisterns are patent. There are no extra-axial collections. A 5.3 cm hypoden se focus with loss of crump-white differentiation within the left parietal lobe is noted. This favors a subacute infarct which has increased in extent since MRI of May 08, 2024. A few additional joseph pected subacute infarcts within left basal ganglia and left diego radiata are present. There is no m ass effect. There is no evidence for hemorrhagic conversion. Punctate radiodensities within the left parietal lobe infarct favor calcifications. IMPRESSION: 1. No acute intracranial hemorrhage. No mass effect. 2. 5.3 cm hypodense focus with loss of crump-white differentiation within the left parietal lobe. Thi s favors a subacute infarct with increase in extent since MRI of May 08, 2024. Several additiona l suspected subacute infarcts within the left basal ganglia and left diego radiata. ACT 112: Negative or not required by law. Electronically signed by: Issa Graf M.D. 05/18/2024 12:23 PM
--- NOTE | 2024-05-18 12:51 | History & Physical Report ---
Date of Service May 18, 2024 Assessment & Plan (1) Acute drug-induced confusion: Plan: This is an 84 y/o male with recent acute CVA, DM2, CKD3, MCI, HTN, GERD, dyslipidemia, and other history as outlined below who presented to the ED today from [facility] with increased lethargy. Of note, pt was given additional dose of Seroquel last night due to agitation. Review of records from [facility] revealed issues with hyperactivity delirium while admitted there, mostly seems to have issues at night. Imaging from [facility] and [facility] were personally reviewed including images and reports without significant new acute findings at present. Suspect confusion due to medications, not progression of CVA. Mental status already improving in the ED. - Observe overnight on med telemetry - Decrease HS Seroquel dose to 25 mg HS and monitor mental status (2) Recent cerebrovascular accident (CVA): Plan: Subacute on imaging today without significant acute findings Continue DAPT and statin Plan for return to [facility] for ongoing rehab (3) Aphasia due to recent cerebrovascular accident (CVA): Plan: Speech therapy recommendations from [facility] reviewed Soft, bite-sized diet HOB at 90 degrees with any oral intake including medications Supervision and assistance with meals (4) Acute on chronic kidney failure: Plan: Creatine yesterday was 1.3, today 1.85. Gentle IVF at 100 cc/hr overnight Repeat BMP in the AM Hold chlorthalidone, olmesartan and potassium for now (5) Diabetes mellitus, type II: Plan: Chronic, stable Insulin sliding scale coverage (6) HTN (hypertension): Plan: Chronic, stable Holding chlorthalidone, olmesartan due to MICHAEL - will continue to monitor Plan Pt seen and reviewed with collaborating physician, Dr. Vicente. Plan of care discussed and as outlined above. Code Status: DNR/DNI DVT prophylaxis: subQ heparin Hopeful for d/c back to [facility] in 1-2 days. Sussy Maynard PA-C History of Present Illness Chief Complaint: lethargy Primary Care Provider: Art Cavazos, This is an 84 y/o male with recent acute CVA, DM2, CKD3, MCI, HTN, GERD, dyslipidemia, and other history as outlined below who presented to the ED today from [facility] with increased lethargy. 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 Developed expressive aphasia and word finding after administration of TNK but had significant improvement in the right sided weakness. Early on 05/09, pt had worsening expressive aphasia, new right facial droop, and right hemiparesis. Repeat CT head did not show any new acute intracranial findings but CTA showed possible residual thrombus in the M2 segment so pt was transferred to [facility] for possible thrombectomy. DSA showed no LVO so he was treated with LICA stent and DAPT. While admitted at [facility], he did have issues with hyperactive delirium that was initially treated with Precedex before being transitioned to oral Seroquel. The dose was rapidly titrated to the discharge dose of 25 mg in the AM, 50 mg HS, which seemed to control the symptoms per neurology notes from [facility]. He was evaluated by speech therapy who recommended soft & bite-sized solids with thin liquids, HOB at 90 degrees for all intake including meds. Pt was discharged to [facility] yesterday for rehab. His [facility] chart was extensively reviewed including recent neurology notes and imaging from admission to assist with history today due to pt's lethargy and expressive aphasia. Report from [facility] was that patient was more agitated last evening so given 75 mg of Seroquel instead of his usual dose. Since then, pt has been sleeping and difficult to arouse so he was sent to the ED for evaluation. History from the patient is unobtainable due to the expressive aphasia. He was more arousable at the time of my evaluation. Allergies Allergy/AdvReac Type Severity Reaction Status Date / Time amoxicillin Allergy Mild FEVER, RASH Verified 07/18/22 20:15 Home Medications Medication Instructions Recorded Confirmed Type aspirin 81 mg tablet,delayed 81 mg PO DAILY 07/18/22 05/18/24 History release cholecalciferol (vitamin D3) 10 20 mcg PO DAILY 07/18/22 05/18/24 History mcg (400 unit) tablet (Vitamin D3) cyanocobalamin (vitamin B-12) 1,000 mcg PO QPM 07/18/22 05/18/24 History 1,000 mcg tablet (Vitamin B-12) empagliflozin 25 mg tablet 25 mg PO QAM 07/18/22 05/18/24 History (Jardiance) ferrous sulfate 325 mg (65 mg 325 mg PO QPM 07/18/22 05/18/24 History iron) tablet jjmtooebxqe-[id number]-pwi C-Mn 500 1 cap PO AMHS 07/18/22 05/18/24 History mg-400 mg capsule omeprazole 40 mg capsule,delayed 40 mg PO QAM 07/18/22 05/18/24 History release sildenafil (pulm.hypertension) 20 20 mg PO DIRECTED 1-4 hr before 07/18/22 05/18/24 History mg tablet sex allopurinol 100 mg tablet 100 mg PO DAILY 05/08/24 05/18/24 History hydralazine 10 mg tablet 10 mg PO DAILY 05/08/24 05/18/24 History latanoprost 0.005 % eye drops 1 drp OPB QPM 05/08/24 05/18/24 History Past Med/Surg History Problem List (Updated 05/18/24 @ 14:07 by Selwyn Horowitz DO) MICHAEL (acute kidney injury) (Acute) CVA (cerebral vascular accident) (Acute) AMS (altered mental status) (Acute) Aphasia due to recent cerebrovascular accident (CVA) Recent cerebrovascular accident (CVA) Acute drug-induced confusion Acute hyponatremia (Acute) Acute CVA (cerebrovascular accident) (Acute) Acute on chronic kidney failure Medical History (Updated 05/18/24 @ 14:07 by Selwyn Horowitz DO) Diverticulitis GI bleed Alcohol use HTN (hypertension) CKD (chronic kidney disease), stage III Diabetes mellitus, type II GERD (gastroesophageal reflux disease) Surgical History (Updated 05/18/24 @ 13:53 by Eleanor Maynard PA-C) History of vasectomy History of colonoscopy Family History Other Alzheimer disease Social History Smoking Status: Unknown if ever smoked Tobacco Type: Pipe Second Hand Exposure: No; Do You Dip or Chew Tobacco: No; Hx Alcohol Use: Yes Alcohol type: beer, wine and hard liquor Alcohol Intake Frequency Comment: average 3 drinks per day Hx Substance Use: No Preferred Language: Citizen Of [place] Communication Ability: Effective Orthodontic Band Maker Required: No Beliefs That Will Affect Care: None Current Living Situation: Alone Feels Safe at Home: Yes Assistive Devices: None Review of Systems Review of Systems: Unobtainable due to expressive aphasia Physical Exam Physical Exam: See physician note for details of the physical exam. Results & Data Results & Data Vital Signs (Past 12 Hours) Vital Signs Pulse 05/18/24 11:00 64 Laboratory Results Lab Results 05/18/24 05/18/24 Range/Units 11:15 11:21 WBC 9.49 (4.8-10.8) K/ul RBC 5.26 (4.70-6.10) M/uL Hgb 15.5 (14.0-18.0) g/dl Hct 46.3 (42.0-52.0) % MCV 88.0 (80.0-100.0) fL MCH 29.5 (25.0-34.0) pg MCHC 33.5 (32.0-36.0) g/dL RDW Std Deviation 45.8 (36.4-46.3) fL RDW Coeff of Vaibhav 14.1 (11.5-14.5) % Plt Count 313 (130-400) K/uL MPV 9.9 (9.4-12.4) fL Immature Gran % (Auto) 0.7 % Neut % (Auto) 76.8 % Lymph % (Auto) 14.0 % [place] % (Auto) 7.2 % Eos % (Auto) 0.4 % Baso % (Auto) 0.9 % Neut # (Auto) 7.28 H (1.40-6.50) K/uL Lymph # (Auto) 1.33 (1.20-3.40) K/uL [place] # (Auto) 0.68 H (0.11-0.59) K/uL Eos # (Auto) 0.04 (0.00-0.50) K/uL Baso # (Auto) 0.09 (0.00-0.20) K/uL Immature Gran # (Auto) 0.07 (0.01-0.20) K/uL PT 11.7 (9.0-12.0) Seconds INR 1.1 (0.9-1.1) Sodium 142 (136-145) mmol/L Potassium 4.4 (3.5-5.1) mmol/L Chloride 106 (98-107) mmol/L Carbon Dioxide 26 (21-32) mmol/L Anion Gap 10 (3-11) BUN 51 H (6-23) mg/dl Creatinine 1.85 H (0.6-1.4) mg/dl Est Cr Clr Drug Dosing Not Reportable eGFR 35.47 BUN/Creatinine Ratio 27.6 H (10-20) Glucose 168 H (70-99(Fasting)) mg/dl Calcium 9.8 (8.6-10.3) mg/dl Total Bilirubin 1.1 H (0.2-1.0) mg/dl AST 21 (13-39) U/L ALT 20 (7-52) U/L Alkaline Phosphatase 77 (34-104) U/L Troponin I High Sens 15.5 (0-20) pg/ml Total Protein 7.7 (6.0-8.3) gm/dl Albumin 4.0 (3.4-5.0) gm/dl Globulin 3.7 (2.5-4.0) gm/dl Albumin/Globulin Ratio 1.1 (0.9-2) Lipase 16 (11-82) U/L Urine Color Dark Yellow Urine Appearance Clear (Clear) Urine pH 5.0 (4.5-7.5) Ur Specific [place] 1.023 (1.000-1.030) Urine Protein 3+ H (Negative) Urine Glucose (UA) 3+ H (Negative) Urine Ketones Trace H (Negative) Urine Blood 3+ H (Negative) Urine Nitrite Negative (Negative) Urine Bilirubin 1+ H (Negative) Urine Urobilinogen Negative (Negative) Ur Leukocyte Esterase Negative (Negative) Urine WBC (Auto) 0-5 (0-5) /hpf Urine RBC (Auto) >20 H (0-2) /hpf U Hyaline Cast (Auto) 3-5 H (0-2) /lpf U Epithel Cells (Auto) 0-2 (0-2) /hpf Urine Bacteria (Auto) None Seen (None Seen) Hyaline Casts Present A (None Presnt) /lpf Diagnostic Findings Head CT 05/18/24 10:59 CT OF THE HEAD WITHOUT CONTRAST CLINICAL HISTORY: Altered mental status. COMPARISON STUDY: MRI of the brain and head CT and CTA of the head May 08, 2024. Head CT May 09, 2024. CT DOSE: 625.8 mGy.cm TECHNIQUE: Helical axial images of the head were obtained without IV contrast. Automated exposure control was utilized for the study. A dose lowering technique was utilized adhering to the principles of ALARA. FINDINGS: No acute intracranial hemorrhage, midline shift or mass effect is present. Ventricular system is unremarkable. Basal cisterns are patent. There are no extra-axial collections. A 5.3 cm hypodense focus with loss of crump-white differentiation within the left parietal lobe is noted. This favors a subacute infarct which has increased in extent since MRI of May 08, 2024. A few additional suspected subacute infarcts within left basal ganglia and left diego radiata are present. There is no mass effect. There is no evidence for hemorrhagic conversion. Punctate radiodensities within the left parietal lobe infarct favor calcifications. IMPRESSION: 1. No acute intracranial hemorrhage. No mass effect. 2. 5.3 cm hypodense focus with loss of crump-white differentiation within the left parietal lobe. This favors a subacute infarct with increase in extent since MRI of May 08, 2024. Several additional suspected subacute infarcts within the left basal ganglia and left diego radiata. ACT 112: Negative or not required by law. Electronically signed by: Issa Graf M.D. 05/18/2024 12:23 PM Chest X-Ray 05/18/24 11:00 XR chest 1V portable CLINICAL HISTORY: Altered mental status COMPARISON STUDY: Chest radiograph April 08, 2018. FINDINGS: Lung volumes are normal. There is no consolidation. Linear right lower lung density suggests atelectasis. There is no pneumothorax or pleural effusion. Cardiac size is normal. Mediastinal contours are normal. There is no evidence for pulmonary edema. IMPRESSION: No acute cardiopulmonary findings. ACT 112: Negative or not required by law. Electronically signed by: Issa Graf M.D. 05/18/2024 11:41 AM Supervising Physician Co-Signing Physician Notes Patient seen and examined Recently hospitalized for CVA. Had TNK here and was transfered to [facility]. Disc harged from [facility] to rehab yesterday Was reported to have been agitated and got seroquel 75mg last night and was quite drowsy/difficult to arouse this AM necessitating presentation to the hospital Patient is currently awake, aphasic but follows simple commands. General: Elderly man in no distress Eyes: PERRL, conjunctivae normal, not pale, anicteric sclerae, EOM intact bilaterally ENMT: External ear and nose normal, oropharynx normal Respiratory: Normal respiratory effort, no respiratory distress, lungs clear to auscultation, no crackles and no wheezes Cardiovascular: RRR S1 S2 Gastrointestinal (Abdomen): Abdomen is not distended, soft, non-tender to palpation, no guarding, no palpable hepatosplenomegaly, normal bowel sounds Musculoskeletal: No pedal edema Skin: Maculopapular rash on trunk. Multiple areas of ecchymoses/bruise in lower right groin, legs Neurologic: Awake, alert, +expressive aphasia. Follows simple commands. Right hemiparesis Labs notable for Cr of 1.85 CT head showed subacute infarcts similar in distribution areas of infarct seen on MRI of 05/10/24 at [facility] on EPIC Altered mental status likely due to medication Reviewed discharge summary from [facility] Reduce seroquel to 25mg HS for now and monitor Give IVF for MICHAEL Hold chlorthalidone, olmesartan and potassium started at [facility] Continue ASA, plavix, statin I spent a total of 45 minutes coordinating, documenting and providing care for this patient excluding time spent in performance of separately billed services (4) Acute on chronic kidney failure Acute renal failure type: unspecified Chronic kidney disease stage: stage 3 (moderate) Chronic kidney disease stage 3 subtype: unspecified whether 3a or 3b Qualified Code(s): N17.9 - Acute kidney failure, unspecified; N18.30 - Chronic kidney disease, stage 3 unspecified (5) Diabetes mellitus, type II Chronic kidney disease stage: stage 3 (moderate) Chronic kidney disease stage 3 subtype: unspecified whether 3a or 3b Diabetes mellitus complication detail: with chronic kidney disease Diabetes mellitus complication status: with kidney complications Diabetes mellitus earth observations chief scientist insulin use: without earth observations chief scientist use Qualified Code(s): E11.22 - Type 2 diabetes mellitus with diabetic chronic kidney disease; N18.30 - Chronic kidney disease, stage 3 unspecified (6) HTN (hypertension) Hypertension type: unspecified Qualified Code(s): I10 - Essential (primary) hypertension
--- OUTSIDE RECORDS SUMMARY | 2024-05-18 13:06 | External Medical Summary ---
Author Name Unknown Address Unknown Organization [id number][facility] [place] [address] Laboratory Report Ordering Provider Test Date Status CESAR GONZALEZ 05/18/2024 05:55:49 Final Observation Date Value Abnormality Reference (Units ) Status WBC, Total 05/18/2024 05:55:49 9.49 4.00-10.8 0 (K/uL) Final RBC 05/18/2024 05:55:49 5.01 4.50-5.25 (M/uL) Final Hemoglobin 05/18/2024 05:55:49 14.9 14.0-16.8 (g/dL) Final HCT 05/18/2024 05:55:49 44.9 40.0-48.4 (%) Final MCV 05/18/2024 05:55:49 89.6 82.0-99.5 (fL) Final MCH 05/18/2024 05:55:49 29.7 27.0-34.0 (pg) Final MCHC 05/18/2024 05:55:49 33.2 32.0-36.0 (g/dL) Final RDW 05/18/2024 05:55:49 14.7 11.5-15.5 (%) Final Platelets 05/18/2024 05:55:49 293 140-400 (K /uL) Final MPV 05/18/2024 05:55:49 10.3 6.6-11.1 ( fL) Final Performing Location [facility] [place] [id number]
--- OUTSIDE RECORDS SUMMARY | 2024-05-18 13:06 | External Medical Summary ---
Author Name Unknown Address Unknown Organization K09[facility] [place] [id number] Laboratory Report Ordering Provider Test Date Status CESAR GONZALEZ 05/18/2024 05:55:49 Final Observation Date Value Abnormality Reference (Units ) Status BUN 05/18/2024 05:55:49 48 Above high normal 6-20 (mg/dL) Final Creatinine 05/18/2024 05:55:49 1.8 Above high normal 0.6-1.2 (mg/dL) Final Glomerular filtration rate/1.73 sq M.predicted [Volume Rate/Area] in Serum, Plasma or Blood by Creatinine-based formula (CKD-EPI) 05/18/2024 05:55:49 36 Below low normal >=60 (mL/min) Final eGFR is calculated based on the CKD-EPI 2020 equation. Sodium 05/18/2024 05:55:49 143 135-146 (m mol/L) Final Potassium 05/18/2024 05:55:49 4.3 3.5-5.1 (m mol/L) Final Cl 05/18/2024 05:55:49 105 98-107 (mm ol/L) Final CO2 05/18/2024 05:55:49 23 22-32 (mmo l/L) Final Anion gap 05/18/2024 05:55:49 15 7-15 (mmol /L) Final Glucose 05/18/2024 05:55:49 125 Above high normal 70 -120 (mg/dL) Final Calcium 05/18/2024 05:55:49 9.3 8.4-10.2 ( mg/dL) Final Performing Location [facility] [place] [id number]
--- OUTSIDE RECORDS SUMMARY | 2024-05-18 13:07 | External Medical Summary | Summary of Care ---
Author Name Unknown Organization [facility] Address [address] [place] [address] Phone [phone] Care Team Providers Care Electric Sign Assembler Name Role Phone Art Cavazos DO Primary Care Provider [phone] Reason for Visit * Reason Onset Date Comments [facility]: Maintenance 05/17/2024 Encounter Details Date Type Department Care Team (Late st Contact Info) Description 05/17/2024 Telephone [facility], [place] [address] [place] [address] Joyce Conley LPN [address] [place] [address] [facility]: Maintenance Allergies Active Allergy Reactions Criticality Noted Date Comments Amoxicillin Fever,Rash Medium 12/29/2013 documented as of this encounter (statuses as of 05/17/2024) Medications Acetaminophen 325 MG Oral Tablet (Tylenol) Administer 2 Tablets into NG tube every 4 hours as needed for Fever >38C(100.5F) or Pain, Moderate. Maximum of 4,000mg per day 30 Tablet 05/14/20 24 Active Atorvastatin Calcium 40 MG Oral Tablet (Lipitor) Take 1 Tablet by mouth every afternoon. 30 Tablet 11 05/14/20 24 Active hydrALAZINE HCl 10 MG Oral Tablet (Apresoline) Take 1 Tablet by mouth in the morning and 1 Tablet in the evening. 60 Tablet 05/14/20 24 Active Clopidogrel Bisulfate 75 MG Oral Tablet (pLAVix) Take 1 Tablet by mouth in the morning. Review needed duration of Plavix with neurosurgeon at follow up.. 30 Tablet 3 05/14/20 24 Active Sennosides 8.6 MG Oral Tablet (Senokot) Administer 1 Tablet into NG tube in the morning and 1 Tablet before bedtime. 60 Tablet 11 05/14/20 24 Active Chlorhexidine Gluconate 0.12 % Mouth/Throat Solution (Periogard) Apply 15 mL to inside of cheek in the morning and 15 mL in the evening. 473 mL 05/14/20 24 Active Pantoprazole Sodium 40 MG Oral Tablet Delayed Release (Protonix) Take 1 Tablet by mouth in the morning. 30 Tablet 11 05/16/20 24 Active Potassium Chloride ER 10 MEQ Oral Tablet Extended Release Take 4 Tablets by mouth in the morning. 120 Tablet 11 05/16/20 24 Active Chlorthalidone 25 MG Oral Tablet (Hygroton) Take 1 Tablet by mouth in the morning. 30 Tablet 11 05/16/20 24 Active QUEtiapine Fumarate 50 MG Oral Tablet (SEROquel) Take 1 Tablet by mouth every night at bedtime. 30 Tablet 11 05/16/20 24 Active QUEtiapine Fumarate 25 MG Oral Tablet (SEROquel) Take 1 Tablet by mouth in the morning. 30 Tablet 11 05/16/20 24 Active Olmesartan Medoxomil 20 MG Oral Tablet (Benicar) Take 1 Tablet by mouth in the morning. 30 Tablet 11 05/16/20 24 Active Melatonin 3 MG Oral Tablet Take 1 Tablet by mouth at bedtime. 30 Tablet 11 05/16/20 24 Active Optinuity SYSTEM W/DEVICE KITIndications :DM type 2, goal A1c below 7 Use up to four times a day as directed 1 Kit 0 12/23/19 10 Suspended B-12 1000 MCG PO TBCR Take by mouth 1 Tablet daily . Suspended FISH OIL 1000 MG PO CAPS Take 1 Capsule by mouth in the morning. Suspended GLUCOSAMINE CHONDR 1500 COMPLX PO CAPS Take 1 Capsule by mouth in the morning and 1 Capsule before bedtime. Pt takes tablets. 09/02/19 14 Suspended aspirin 81 MG chewable tablet Take 1 Tablet by mouth in the morning. with food.. 100 Tab 5 10/30/19 17 Suspended Ferrous Sulfate 325 (65 Fe) MG Oral Tablet (Feosol) Take 1 Tablet by mouth every afternoon. 60 Tab 11 07/02/19 21 Suspended OneTouch UltraSoft LancetsIndicat ions:Type 2 diabetes mellitus with hemoglobin A1c goal of less than 7.0% ([facility]) Use to test sugars once daily 100 Each 3 08/30/19 22 Suspended Vitamin D-400 10 MCG (400 UNIT) Oral Tablet (cholecalcifer ol (VIT D3))Indication s:Vitamin D deficiency Take 2 Tablets by mouth daily. 120 Tablet 3 07/08/19 23 Suspended OneTouch Ultra In Vitro Strip (Glucose Blood)Indicati ons:Type 2 diabetes mellitus with stage 3a chronic kidney disease, without long-term current use of insulin ([facility]) TEST 1 TO 2 TIMES DAILY. 200 Strip 3 02/20/2024 7:22 AM EDT 04/27/20 23 025 Suspended Latanoprost 0.005 % Ophthalmic Solution (Xalatan) Instill 1 Drop into both eyes once daily every evening as directed 10 mL 3 04/19/2024 11:05 AM EST 04/30/20 23 Suspended Allopurinol 100 MG Oral Tablet (Zyloprim)Ginger cations:Gouty arthritis of both feet Take 1 Tablet by mouth in the morning. 90 Tablet 3 05/17/2024 7:54 AM EST 08/25/19 24 Suspended Ketoconazole 2 % External Shampoo (Nizoral)Indic ations:Seborrh eic dermatitis of scalp Lather into scalp in the shower, leave in for 3 minutes, then rinse. Do this three times per week 120 mL 11 03/22/2024 11:42 AM EDT 03/19/20 24 Suspended Empagliflozin 25 MG Oral Tablet (Jardiance)Ind ications:Type 2 diabetes mellitus with stage 3a chronic kidney disease, without long-term current use of insulin ([facility]) Take 1 Tablet by mouth in the morning. 90 Tablet 3 05/07/20 24 Suspended documented as of this encounter (statuses as of 05/17/2024) Active Problems Problem Noted Date Diagnosed Date Internal carotid artery stent present 05/17/2024 AVF (arteriovenous fistula) 05/11/2024 Gait abnormality 05/10/2024 Impaired mobility and ADLs 05/10/2024 Acute ischemic left MCA stroke 05/09/2024 Dyslipidemia, goal LDL below 70 05/09/2024 Left carotid stenosis 05/09/2024 Right hemiparesis 05/09/2024 Mixed aphasia 05/09/2024 Gout of both feet 11/19/2023 MCI (mild [...] as of this encounter (statuses as of 05/17/2024) Resolved Problems Problem Noted Date Diagnosed Date [...] as of this encounter (statuses as of 05/17/2024) Immunizations Name Administration Dates Next Due COVID-19 [...] encounter Miscellaneous Notes * Telephone Encounter - Joyce Conley LPN - 05/17/2024 9:40 AM EST Pt d/c today 05/17 from hospital. Will change to clerical pool to call pt to attempt enrollment. Joyce Conley LPN [facility] 05/17/2024,9:40 AM documented in this encounter Plan of Treatment Upcoming Encounters Date Type Department Care Team (Late st Contact Info) Description 05/24/2024 1:40 PM EST Office Visit Family Practice [address] [place] [address] [place] [address] Art Cavazos, [address] [place] [address] 05/31/2024 11:00 AM EST Therapy Neuropsychology [facility] [place] [address] [facility] [place] [address] Enrique Kay, PhD [address] [place] [address] 06/16/2024 12:30 PM EST Telemedicine Neurosurgery, [place] [address] [place] [address] Crispin Nelson MD [address] [place] [address] 07/09/2024 3:00 PM EST [facility] [address] [place] [address] Jose Ramos MD [address] [place] [address] [address], [address] [place] [address] 08/02/2024 1:00 PM EDT Office Visit [facility] [address] [place] [address] [place] [address] Art Cavazos, [address] [place] [address] 10/15/2024 2:00 PM EDT Nurse Only Family Practice [address] [place] [address] [address] [place] [address] Sonali Echeverria, RITCHIE [address] [place], [place] [address] 11/01/2024 2:20 PM EDT Office Visit Nephrology, Quiana Lundberg [address] [facility] [place], [place] [address] Baldo Mackey MD [address] [facility] [place], [place] [address] 12/03/2024 2:00 PM EDT Office Visit Rheumatology [facility] [address] [place] [address] Sarah Stroud CRNP [address] [place], [place] [address] Scheduled Procedures Name Priority Associated Diagnoses Date/Ti me ESOPHAGOGASTRODUODENOSCOPY ( EGD), FLEXIBLE, TRANSORAL, DIAGNOSTIC Recall Anderson's esophagus with esophagitis Health Maintenance Due Date Last Done Comments Zoster Vaccines (1 of 2) 1990 Anderson's Esophagus Surveilance 10/26/2023 10/25/2020, 10/25/2020, 04/09/2018 Diabetic Eye Exam 04/01/2024 04/01/2023, , 06/02/2018, Additional history exists Adult Wellness Visit 10/09/2024 10/10/2023, 09/20/2022, 06/06/2021 Albumin/Creatinine Ratio 10/09/2024 024, 11/18/2022, 11/20/2021, Additional history exists Depression Screening 10/09/2024 10/10/2023, 10/10/19 24 HbA1c 11/07/2024 05/09/2024, 11/0 10/2023, 11/19/2023, Additional history exists GFR 11/15/2024 05/17/2024, 04/26, 05/15/2024, Additional history exists Diabetic Foot Exam 03/31/2025 03/31/2024, 1 , 03/07/2022, Additional history exists CKD HGB USE SMARTSET 33598 05/12/202505/12, 05/11/2024, 05/11/2024, Additional history exists CKD PHOS USE SMARTSET 57326 05/17/2025/07/2023, 05/16/2024, 05/15/2024, Additional history exists DTap/Tdap Vaccines (2 - [...] documented as of this encounter Medical Devices Implanted Type Area Ultrasound Technologist Sonographer Device Identifier Shelf Expiration Date Model / Serial / Lot Stent [id number] Precise [id number] - [id number] Implanted:Qty : 1 on 05/09/2024 by Crispin Nelson MD at [facility] [place] Left: Carotid [facility] [id number] 01/23/2026 [id number] / / [id number] documented as of this encounter Advance Directives * No Code (Latest Code Status on File) Date Activated Date Inactivated Comments 05/09/2024 8:31 AM This order re flects the patients wishes and were consensually agreed upon. Question Answer Comments Discussion of Advance Direct kade occurred with: Power of Personal Finance Instructor/Patient Placer Miner Does the patient have a Living Will? Yes, in sherrell rt and reviewed as current Does the patient have Health Care Power of Personal Finance Instructor? Yes, in chart and reviewed as current * Limited Code Date Activated Date Inactivated Comments 05/09/2024 8:16 AM 05/09/2024 8:31 AM This order reflects the patients wishes and were consensually agreed upon. She states that her father would like to be a DNR DNI but would be willing to undergo intubation temporarily for surgical procedures if necessary. She was states her father would not want to live on life support or on a ventilator. She was states that he would be okay to receive IV antibiotics, temporary feeding through a tube, and artificial fluids. Question Answer Comments Discussion of Advance Direct kade occurred with: Power of Personal Finance Instructor/Patient Placer Miner Does the patient have Health Care Power of Personal Finance Instructor? Yes, in chart and reviewed as current Intubation? No Cardiac Compressions? No Defibrillation? No Synchronized Cardioversion? No External Pacemaker? No Cardiac Drugs? No Care Teams Electric Sign Assembler Relationship Specialty Start Date End Date Art Cavazos DO [address] [place] [address] PCP - General Internal Medicine 11/19/23 documented as of this encounter
--- OUTSIDE RECORDS SUMMARY | 2024-05-18 13:07 | External Medical Summary | Summary of Care ---
Author Name Unknown Organization [facility] Address [address] [place] [address] Phone [phone] Care Team Providers Care Proposal Coordinator Name Role Phone Art Cavazos DO Primary Care Provider [phone] Reason for Visit * Reason Comments Neuro Deficit/Stroke/TIA * Auth/Cert Specialty Diagnoses / Procedures Referred By Kulwinder t Referred To Contact Diagnoses Stroke [facility] [address] [place] [address] Phone: tel:[phone] [facility] Emergency Department ([facility]) [address] [place] [address] Phone: tel: fax: Referral ID Status Reason Start Date Expiration Date Visits Re quested Visits Authorized [id number] Encounter Details Date Type Department Care Team (Latest Contact Info) Description 05/09/2024 7:18 AM EST - 05/17/2024 10:14 AM EST Hospital Encounter [id number] [place] [place] [facility] [address] [place] [address] Napoleon Gresham MD [address] [place] [address] Iman Ramos DO [address] [place] [address] Sonali Dawson MD [address] [place] [address] Paul Mack MD [address] [place] [address] Emily Claire MD [address] [place] [id number] Various: KRAVS,EKG Discharge Disposition: IP Rehab Allergies Active Allergy Reactions Criticality Noted Date Comments Amoxicillin Fever,Rash Medium 12/29/2013 documented as of this encounter (statuses as of 05/17/2024) Medications The [employer] ULTRA SYSTEM W/DEVICE KITIndications :DM type 2, goal A1c below 7 Use up to four times a day as directed 1 Kit 0 12/23/19 10 Active B-12 1000 MCG PO TBCR Take by mouth 1 Tablet daily . Active FISH OIL 1000 MG PO CAPS Take 1 Capsule by mouth in the morning. Active GLUCOSAMINE CHONDR 1500 COMPLX PO CAPS Take 1 Capsule by mouth in the morning and 1 Capsule before bedtime. Pt takes tablets. 09/02/19 14 Active aspirin 81 MG chewable tablet Take 1 Tablet by mouth in the morning. with food.. 100 Tab 5 10/30/19 17 Active Ferrous Sulfate 325 (65 Fe) MG Oral Tablet (Feosol) Take 1 Tablet by mouth every afternoon. 60 Tab 11 07/02/19 21 Active OneTouch UltraSoft LancetsIndicat ions:Type 2 diabetes mellitus with hemoglobin A1c goal of less than 7.0% (HCC) Use to test sugars once daily 100 Each 3 08/30/19 22 Active Vitamin D-400 10 MCG (400 UNIT) Oral Tablet (cholecalcifer ol (VIT D3))Indication s:Vitamin D deficiency Take 2 Tablets by mouth daily. 120 Tablet 3 07/08/19 23 Active OneTouch Ultra In Vitro Strip (Glucose Blood)Indicati ons:Type 2 diabetes mellitus with stage 3a chronic kidney disease, without long-term current use of insulin (HCC) TEST 1 TO 2 TIMES DAILY. 200 Strip 3 4 7:22 AM EDT 04/27/20 23 2024 Active Latanoprost 0.005 % Ophthalmic Solution (Xalatan) Instill 1 Drop into both eyes once daily every evening as directed 10 mL 3 4 11:05 AM EST 04/30/20 23 Active Allopurinol 100 MG Oral Tablet (Zyloprim)Ginger cations:Gouty arthritis of both feet Take 1 Tablet by mouth in the morning. 90 Tablet 3 4 7:54 AM EST 08/25/19 24 Active Ketoconazole 2 % External Shampoo (Nizoral)Indic ations:Seborrh eic dermatitis of scalp Lather into scalp in the shower, leave in for 3 minutes, then rinse. Do this three times per week 120 mL 11 4 11:42 AM EDT 03/19/20 24 Active Empagliflozin 25 MG Oral Tablet (Jardiance)Ind ications:Type 2 diabetes mellitus with stage 3a chronic kidney disease, without long-term current use of insulin (HCC) Take 1 Tablet by mouth in the morning. 90 Tablet 3 05/07/20 24 Active Acetaminophen 325 MG Oral Tablet (Tylenol) Administer [...] 1 Tablet in the evening. 60 Tablet 11 05/14/20 24 Active Clopidogrel Bisulfate 75 MG [...] in the morning. 30 Tablet 11 05/16/20 Active Potassium Chloride ER 10 MEQ Oral Tablet Extended Release Take 4 Tablets by mouth in the morning. 120 Tablet 11 05/16/20 Active Chlorthalidone 25 MG Oral Tablet (Hygroton) Take 1 Tablet by mouth in the morning. 30 Tablet 11 05/16/20 Active QUEtiapine Fumarate 50 MG Oral Tablet (SEROquel) Take 1 Tablet by mouth every night at bedtime. 30 Tablet 11 05/16/20 Active QUEtiapine Fumarate 25 MG Oral Tablet (SEROquel) Take 1 Tablet by mouth in the morning. 30 Tablet 11 05/16/20 24 Active Olmesartan Medoxomil 20 MG Oral Tablet (Benicar) Take 1 Tablet by mouth in the morning. 30 Tablet 11 05/16/20 Active Melatonin 3 MG Oral Tablet Take 1 Tablet by mouth at bedtime. 30 Tablet 11 05/16/20 Active Potassium Chloride 10 MEQ/100ML Intravenous Solution Administer 30 mEq at 100 mL/hr over 180 minutes via peripheral line daily as needed for Other (If patient is unable to tolerate oral potassium administer 30 mEq IV potassium chlorid in at a rate of 10 mEq per hour.). 1000 mL 2 05/17/20 Active Sildenafil Citrate 20 MG Oral Tablet (Revatio)Indic ations:Type 2 diabetes mellitus with stage 2 chronic kidney disease, without long-term current use of insulin (HCC) TAKE ONE TABLET BY MOUTH 1-4 HOURS BEFORE INTERCOURSE. NO MORE THAN 1 DOSE IN 24 HOURS. 30 Tablet 5 4 11:30 AM EDT 01/04/20 23 2023 hydrALAZINE HCl 10 MG Oral Tablet (Apresoline) Take 1 Tablet by mouth in the morning and 1 Tablet in the evening. 200 Tablet 3 4 9:11 AM EDT 08/15/19 24 2023 Discontinued Omeprazole 40 MG Oral Capsule Delayed Release (PriLOSEC) TAKE ONE CAPSULE BY MOUTH IN THE MORNING. 100 Capsule 3 4 9:11 AM EDT 11/24/19 24 2023 Discontinued Olmesartan Medoxomil 40 MG Oral Tablet (Benicar) Take 1 Tablet by mouth in the morning. 30 Tablet 11 05/14/20 24 2023 Discontinued QUEtiapine Fumarate 25 MG Oral Tablet (SEROquel) Take 1 Tablet by mouth every night at bedtime. Review this medication with Fabien's PCP after hospital discharge to see if this can be weaned off. If he starts having sundowning discuss goal of minimal antipsychotic dosage needed to control delirium. 30 Tablet 05/14/20 24 2023 Discontinued documented as of this encounter (statuses as [...] 02/19/2010 09/01/2013 Diabetic polyneuropathy 02/19/2010 04/0 01/2014 Overview (08/11/2015): ICD-10 update of inactive term [...] CG/0.3 mL, 12 YRS AND ABOVE, IM [facility] 03/31/2024,03/21/2023 COVID-19, mRNA, LNP-s, PF, B ooster, [...] Sign Reading Time Taken Comments Blood Pressure 163/91 05/17/2024 9:10 AM EST Pulse 76 05/17/2024 9:10 AM EST Temperature 36 C (96.8 F) 05/17/2024 6:32 AM EST Respiratory Rate 20 05/17/2024 6:32 AM EST Oxygen Saturation 100% 05/17/2024 6:32 AM EST Inhaled Oxygen Concentration - - Weight 83 kg (183 lb) 05/17/2024 12:18 AM EST Height - - Body Mass Index 28.03 03/31/2024 3:35 PM EST documented in this encounter Discharge Summaries * Issa Bautista DO - 05/17/2024 6:46 AM EST Images from the original note were not included. [address] [address] Admission Date: 05/09/2024 Discharge Date: 05/17/2024 RECOMMENDED TO DO FOR NEXT PROVIDER(S): Subacute Follow-up (4 - 8 weeks) See your primary care physician (Art Cavazos DO) in 1 week See neurology in 6 weeks Seen neurosurgery 06/16/23 SPECIAL INSTRUCTIONS: Continue to optimize BP medications for goal BP of <130/80 with caution to avoid acute hypotension and hypokalemia[place] [address] at any point after discharge to get your Zio patch in order to monitor you for atrial fibrilation Medication Sig Potassium Chloride 10 MEQ/100ML Intravenous Solution Administer 30 mEq at 100 mL/hr over 180 minutes via peripheral line daily as needed for Other (If patient is unable to tolerate oral potassium administer 30 mEq IV potassium chlorid in at a rate of 10 mEq per hour.). Chlorthalidone 25 MG Oral Tablet (Hygroton) Take 1 Tablet by mouth in the morning. Melatonin 3 MG Oral Tablet Take 1 Tablet by mouth at bedtime. Olmesartan Medoxomil 20 MG Oral Tablet (Benicar) Take 1 Tablet by mouth in the morning. Pantoprazole Sodium 40 MG Oral Tablet Delayed Release (Protonix) Take 1 Tablet by mouth in the morning. Potassium Chloride ER 10 MEQ Oral Tablet Extended Release Take 4 Tablets by mouth in the morning. QUEtiapine Fumarate 25 MG Oral Tablet (SEROquel) Take 1 Tablet by mouth in the morning. QUEtiapine Fumarate 50 MG Oral Tablet (SEROquel) Take 1 Tablet by mouth every night at bedtime. Acetaminophen 325 MG Oral Tablet (Tylenol) Administer 2 Tablets into NG tube every 4 hours as needed for Fever >38C(100.5F) or Pain, Moderate. Maximum of 4,000mg per day Atorvastatin Calcium 40 MG Oral Tablet (Lipitor) Take 1 Tablet by mouth every afternoon. Chlorhexidine Gluconate 0.12 % Mouth/Throat Solution (Periogard) Apply 15 mL to inside of cheek in the morning and 15 mL in the evening. Clopidogrel Bisulfate 75 MG Oral Tablet (pLAVix) Take 1 Tablet by mouth in the morning. Review needed duration of Plavix with neurosurgeon at follow up.. hydrALAZINE HCl 10 MG Oral Tablet (Apresoline) Take 1 Tablet by mouth in the morning and 1 Tablet in the evening. Sennosides 8.6 MG Oral Tablet (Senokot) Administer 1 Tablet into NG tube in the morning and 1 Tablet before bedtime. Empagliflozin 25 MG Oral Tablet (Jardiance) Take 1 Tablet by mouth in the morning. Ketoconazole 2 % External Shampoo (Nizoral) Lather into scalp in the shower, leave in for 3 minutes, then rinse. Do this three times per week Allopurinol 100 MG Oral Tablet (Zyloprim) Take 1 Tablet by mouth in the morning. Latanoprost 0.005 % Ophthalmic Solution (Xalatan) Instill 1 Drop into both eyes once daily every evening as directed OneTouch Ultra In Vitro Strip (Glucose Blood) TEST 1 TO 2 TIMES DAILY. Sildenafil Citrate 20 MG Oral Tablet (Revatio) TAKE ONE TABLET BY MOUTH 1-4 HOURS BEFORE INTERCOURSE. NO MORE THAN 1 DOSE IN 24 HOURS. Vitamin D-400 10 MCG (400 UNIT) Oral Tablet (cholecalciferol (VIT D3)) Take 2 Tablets by mouth daily. Loom DecorTouch UltraSoft Lancets Use to test sugars once daily Ferrous Sulfate 325 (65 Fe) MG Oral Tablet (Feosol) Take 1 Tablet by mouth every afternoon. aspirin 81 MG chewable tablet Take 1 Tablet by mouth in the morning. with food.. GLUCOSAMINE CHONDR 1500 COMPLX PO CAPS Take 1 Capsule by mouth in the morning and 1 Capsule before bedtime. Pt takes tablets. B-12 1000 MCG PO TBCR Take by mouth 1 Tablet daily . FISH OIL 1000 MG PO CAPS Take 1 Capsule by mouth in the morning. [employer] ULTRA SYSTEM W/DEVICE KIT Use up to four times a day as directed SCHEDULED FOLLOW-UP: Future Appointments Appt Date/Time Provider Department 05/24/2024 1:40 PM Art Cavazos DO [address] 05/31/2024 11:00 AM Enrique Kay, PhD Neuropsychology [facility] 06/16/2024 12:30 PM [facility]'s Home 07/09/2024 3:00 PM Cart, Telemed [address]; Jose Ramos MD Neurology [facility] Arrive at: ARRIVE AT: [address] 08/02/2024 1:00 PM Art Cavazos DO [address] 10/15/2024 2:00 PM Sonali Echeverria RN [address] 11/01/2024 2:20 PM Baldo Mackey MD Nephrology, [facility] 12/03/2024 2:00 PM Sarah Stroud CRNP Rheumatology [facility] DISPOSITION ON DISCHARGE: rehab: [facility] DISCHARGE DIAGNOSES: Active Hospital Problems Diagnosis *Principal Diagnosis - Acute ischemic left MCA stroke ([facility]) AVF (arteriovenous fistula) ([facility]) Gait abnormality Impaired mobility and ADLs Dyslipidemia, goal LDL below 70 Stroke with cerebral ischemia (HCC) Left carotid stenosis Right hemiparesis ([facility]) Mixed aphasia Hypertensive kidney disease with stage 3a chronic kidney disease (HCC) Type 2 diabetes mellitus with stage 3a chronic kidney disease, without long-term current use of insulin (HCC) Gastroesophageal reflux disease without esophagitis HTN, goal below 140/90 Resolved Hospital Problems No resolved problems to display. RISK FACTORS IDENTIFIED: Ischemic Stroke Risk Factors Prior Stroke Hypertension Dyslipidemia Diabetes Carotid Stenosis CKD Hemorrhagic Stroke Risk Factors Hypertension Stroke Mimic Risk Factors None PROPOSED STROKE MECHANISM: Symptomatic left ICA (TOAST Stroke Classification: large-artery atherosclerosis) ADMISSION HISTORY & PHYSICAL EXAM (focused): HPI: Fabien Little Jr. is an 84yoM with PMH of HTN, CKD3, GERD, [facility] and direct admit to [facility]. Patient with significant expressive/receptive aphasia, thus unable to obtain subjective data, thus history obtained from chartreview, family, and director of operations support. Patient [facility] yesterday around noon via EMS. Patient reported had acute onset right-sided weakness when he sat down to eat complicated by inability to walk. Symptoms started reportedly at 11:20 a.m. thus presented as stroke alert to ED, and initial head CT reportedly negative, and subsequent CTA revealed attenuated M3 branch of left MCA versus severe distal stenosis, and moderate stenosis and left P1 segment. CTA neck with severe stenosis of left internal carotid artery as well as the origin of right vertebral artery. TNK was administered at approximately 12:30 p.m. on 05/08/2024. Per ED staff patient has subsequently developed expressive aphasia with word-finding difficulty. Stat repeat CT head negative for intracranial hemorrhage and findings consistent with previous exam. Patient transferred to [facility] ED where CT perfusion study was unremarkable, thus patient taken directly to OR with Neurosurgery. Angiogram with no evidence of intra cranial vessel occlusion, but notable for severe flow- limiting stenosis of left carotid artery bifurcation, thus balloon angioplasty and carotid stent placement was performed with resultant recanalization of the leftcarotid artery. Patient is seen and examined after arrival to [facility]. Patient repeating same nonsensical words and not following commands. His brother Mikey, and sister Marcia or updated over the phone. They report thathe lives in a senior assisted facility. Marcia reports that he drinks 1-2 alcoholic beverages nightly with no history of withdrawal. They both plan to visit tomorrow. Marcia is flying in from [place] in her flight arrives at 9:00 a.m.. All questions answered to apparent satisfaction. ... BP: 149 mmHg/98 mmHg (05/09/24 101) Pulse: 71 (05/09/24 075) Resp: 17 (05/09/24754) Temp: 36.11 C (05/09/24 101) Temp Summary: Temp Min: 36.1 C (97 F) Max: 36.5 C (97.7 F) SpO2: 94 % (05/09/24754) O2 flow rate: Supplemental O2 Delivery: Room Air, None (05/09/241014) There is no height or weight on file to calculate BMI. Vital Signs Last 24 Hours: Systolic BP: Most Recent Systolic BP Av.7 mmHg Min: 126 mmHg Max: 174 mmHg Temperature: Most Recent Temperature Av.3 C Min: 36.11 C Max: 36.5 C Pulse: Pulse Av Min: 66 Max: 85 Respirations: Resp Av.9 Min: 16 Max: 26 SpO2: SpO2 Av.2 % Min: 93 % Max: 97 % General Examination: Constitutional: Appearance non-obese and no deformities Head/face, ears, nose, throat: normocephalic, atraumatic Psychiatric: appears confused Neurologic Examination: Mental Status and Orientation: GCS Adult: Eyes Open: 4 = spontaneous Best Verbal Response: 2 = incomprehensible, grunts Best Motor Response: 4 = flexion withdrawal TOTAL: 10 Memory: CHERYL - aphasic Attention: normal Knowledge:normal Language: paucity of speech, word-finding difficulty Speech: mild dysarthria Cranial Nerves: CN 2 - pupils round, equal, reactive to light and no blink to threat CN 3, 4, 6 - extra-ocular movements intact and no nystagmus CN 5 - not tested due to altered mental status CN 7 - mild R lower facial droop CN 8 - unable to assess due to altered mental status CN 9, 10 - cough intact CN 11 - unable to assess due to AMS CN 12 - unable to assess due to altered mental status Sensory: withdraws all extremities to pain except RUE Coordination: unable to assess due to AMS Muscle Tone: flaccid on RUE, RLE Muscle exam: withdraws to pain in RUE Reflexes: not tested SEVERITY SCORES: [facility] [place] [facility] Stroke Scale: 1A. LOC: 0 1B. Question: 2 1C. Commands: 2 2. Gaze: 0 3. Visual Obregon: 0 4. Facial Palsy: 1 5A. Arm Left: 0 5B. Arm Right: 4 6A. Leg Left: 0 6B. Leg Right: 4 7. Ataxia: untestable 8. Sensory: 0 9. Aphasia: 2 10. Dysarthria: 1 11. Extinction: 0 Total: 16 HOSPITAL COURSE (focused): Fabien Little Jr. is a 84 year old patient initially seen for stroke. He was a transfer from [facility]: he had presented with R arm weakness, got TNK at about 1200 on the , his weakness improved. CTA showed a L M3 occlusion. Then while in the hospital he developed worsening symptoms including aphasia; a repeat CTA showed an M2 occlusion. DSA showed no LVO and he was treated with a LICA stent and DAPT. CTP showed slowed perfusion in the left hemisphere. DSA was performed and no LVO was found, but LICA stent was placed. Patient was placed on heparin drip and then transitioned to DAPT. MRI brain showed multiple small acute infarcts in the left cerebral hemisphere, the largest in the parietal lobe. These are in the middle anterior cerebral artery distribution. Small petechial hemorrhage in the left postcentral gyrus. TTE showing small PFO, unlikely contributory. LDL 124, A1C 7.1 His clinical course was complicated by hyperactive delirium which required Precedex which was eventually transitioned to scheduled seroquel. LTM EEG showed slowing but no epileptiform activity. NG tube was placed due to poor oral tolerance but with resolution of his delirium he began eating PO. His antihypertensives were adjusted and at the time of discharge he was on - Olmesartan 20 mg daily - Chlorthalidone 25 mg daily - Hydralazine 10 mg BID Potassium was repleted as needed and he was discharged with scheduled oral potassium with IV backupif not tolerating oral. Stroke Center Guidelines and Treatment: Therapy needs were identified with recommendations as follows: Discharge SNF. Antithrombotic Therapy: receiving antiplatelet or anticoagulation Atrial Fibrillation or Flutter: no Statin: receiving - high intensity Stroke Education: personal risk factors for stroke Stroke Specific Test Results: Neuroimaging: CT HEAD/BRAIN WO CONTRAST 05/14/2024 IMPRESSION Evolving scattered subacute infarcts in the left cerebral hemisphere, concentrated in the watershedvascular territory, best demonstrated on recent MR brain 05/10/2024. No substantial mass effect or overt hemorrhagic conversion. Chronic ischemic changes and moderate global cerebral volume loss. CT HEAD PERFUSION 05/09/2024 IMPRESSION 1. No acute intracranial abnormality detected by CT, including no evidence of cerebral hemorrhage. 2. Perfusion imaging results as above. MRI BRAIN WITHOUT CONTRAST 05/10/2024 IMPRESSION Multiple small acute infarcts in the left cerebral hemisphere, the largest in the parietal lobe. These are in the middle anterior cerebral artery distribution. Small petechial hemorrhage in the left postcentral gyrus Vessel Status: CTA showed a L M3 occlusion. Then while in the hospital he developed worsening symptoms including aphasia; a repeat CTA showed an M2 occlusion. DSA showed no LVO and he was treated with a LICA stent and DAPT. Cardiac Evaluation: TTE w/o bubble study 05/09/24: EF 55% Interpretation Summary The primary indication after review was deemed appropriate and the examination was performed. The qualitative LV ejection fraction is 55-59% (normal). No LV segmental wall motion abnormalities. The left ventricular diastolic function is mildly abnormal (grade I). The aortic root is mildly enlarged. Trace bubbles visualized in the LV s/p valsalva consistent with Positive Bubble study 2/2 small PFO. Labwork: LDL: Lab Results Component Value Date/Time LDL CHOLESTEROL (CALCULATED) - [facility] 124 05/09/2024 07:54 AM LDL CHOLESTEROL (CALCULATED) - [facility] 93 12/16/2019 08:14 AM LDL CHOLESTEROL (DIRECT MEASURE) - [facility] NOT APPLICABLE 12/16/2019 08:14 AM LDL CHOLESTEROL (DIRECT MEASURE) - [facility] 98 02/14/2012 10:26 AM HbA1c: Hemoglobin AIC Results: Lab Results Component Value Date/Time HEMOGLOBIN A1C - [facility] 7.1 (H) 05/09/2024 07:54 AM HEMOGLOBIN A1C - [facility] 7.3 (H) 03/31/2024 03:56 PM HEMOGLOBIN A1C - [facility] 7.1 (H) 11/19/2023 11:06 AM HEMOGLOBIN A1C - [facility] 6.8 (H) 04/14/2020 07:11 AM HEMOGLOBIN A1C - [facility] 6.6 (H) 12/16/2019 08:14 AM HEMOGLOBIN A1C - [facility] 6.5 (H) 09/01/2019 07:50 AM Test Results Still Pending at Discharge: none MEDICATIONS: MEDICATION UPDATES AT DISCHARGE START taking these medications INSTRUCTIONS Acetaminophen 325 MG Tablet Commonly known as: Tylenol Administer 2 Tablets into NG tube every 4 hours as needed for Fever >38C(100.5F) or Pain, Moderate. Maximum of 4,000mg per day atorvaSTATin 40 MG Tablet Commonly known as: Lipitor Take 1 Tablet by mouth every afternoon. chlorHEXIDINE 0.12 % solution Commonly known as: Periogard Apply 15 mL to inside of cheek in the morning and 15 mL in the evening. Chlorthalidone 25 MG Tablet Commonly known as: Hygroton Take 1 Tablet by mouth in the morning. clopidogrel 75 MG Tablet Commonly known as: pLAVix Take 1 Tablet by mouth in the morning. Review needed duration of Plavix with neurosurgeon at followup.. melatonin 3 MG Tablet Take 1 Tablet by mouth at bedtime. olmesartan 20 MG Tablet Commonly known as: Benicar Take 1 Tablet by mouth in the morning. pantoprazole 40 MG Tbec Commonly known as: Protonix Take 1 Tablet by mouth in the morning. potassium chloride ER 10 MEQ Tbcr Take 4 Tablets by mouth in the morning. * QUEtiapine 50 MG Tablet Commonly known as: SEROquel Take 1 Tablet by mouth every night at bedtime. * QUEtiapine 25 MG Tablet Commonly known as: SEROquel Take 1 Tablet by mouth in the morning. senna Tablet Commonly known as: Senokot Administer 1 Tablet into NG tube in the morning and 1 Tablet before bedtime. * This list has 2 medication(s) that are the same as other medications prescribed for you. Read thedirections carefully, and ask your doctor or other care provider to review them with you. CONTINUE taking these medications INSTRUCTIONS Allopurinol 100 MG Tablet Commonly known as: Zyloprim Take 1 Tablet by mouth in the morning. aspirin 81 MG chewable tablet Take 1 Tablet by mouth in the morning. with food.. B-12 1000 MCG Tbcr Take by mouth 1 Tablet daily . Empagliflozin 25 MG Tabs Commonly known as: Jardiance Take 1 Tablet by mouth in the morning. Ferrous Sulfate 325 (65 FE) MG Tablet Commonly known as: Feosol Take 1 Tablet by mouth every afternoon. Fish Oil 1000 MG Capsule Take 1 Capsule by mouth in the morning. Glucosamine Chondr 1500 Complx Capsule Take 1 Capsule by mouth in the morning and 1 Capsule before bedtime. Pt takes tablets. hydrALAZINE 10 MG Tablet Commonly known as: Apresoline Take 1 Tablet by mouth in the morning and 1 Tablet in the evening. Ketoconazole 2 % shampoo Commonly known as: Nizoral Lather into scalp in the shower, leave in for 3 minutes, then rinse. Do this three times per week Latanoprost 0.005 % ophthalmic solution Commonly known as: Xalatan Instill 1 Drop into both eyes once daily every evening as directed OneTouch Ultra Strp Generic drug: Glucose Blood TEST 1 TO 2 TIMES DAILY. OneTouch Ultra System w/Device Kit Use up to four times a day as directed OneTouch UltraSoft Lancets [facility] Use to test sugars once daily Vitamin D-400 10 MCG (400 UNIT) Tabs Generic drug: cholecalciferol (VIT D3) Take 2 Tablets by mouth daily. STOP taking these medications omeprazole 40 MG Cpdr Commonly known as: PriLOSEC CONTINUE taking these medications but follow up with your Primary Care Physician (PCP). INSTRUCTIONS sildenafil 20 MG Tablet Commonly known as: Revatio Ask about: Should I take this medication? TAKE ONE TABLET BY MOUTH 1-4 HOURS BEFORE INTERCOURSE. NO MORE THAN 1 DOSE IN 24 HOURS. Operations & Procedures: 05/09/24 DSA and left ICA stent placement Complications: Small right AV fistula. Assessed by vascular surgery who deemed no intervention was warranted. OTHER INFORMATION: Vital Signs (last recorded): Most Recent Systolic BP: 188 mmHg (05/17/24631) Most Recent Diastolic BP: 70 mmHg (05/17/24631) Pulse: 73 (05/17/24 0632) Resp: 20 (05/17/24631) Most Recent Temperature: 36 C (05/17/24631) Weight: 83 kg (183 lb) (05/17/24 0018) SpO2: 100 % (05/17/24631) O2 flow rate: 0 L/MIN (05/14/24 0221) Allergies: Amoxicillin Activity: as tolerated Diet: 1. Soft & bite-sized solids with thin liquids via cup or straw 2. Supervision/assistance for meals 3. Small bites/sips and slow rate 4. HOB 90 degree for all intake, including medications 5. Meds as tolerated Code Status: No Code Condition on Discharge: stable Indwelling Devices: none Isolation status: None Cognition: normal Discharge NIH Stroke Scale: 11 1A. LOC: 1 1B. Question:2 1C. Commands: 2 2. Gaze: 0 3. Visual Obregon: 0 4. Facial Palsy:0 5. Arm Left: 0 Arm Right: 3 6. Leg Left: 0 Leg Right: 0 7. Ataxia: 0 8. Sensory: 0 9. Aphasia: 2 10. Dysarthria: 0 11. Extinction: 0 Modified Pawan Scale: 4 - Moderately severe disability. Unable to attend to own bodily needs without assistance or unable to walk unassisted. CONSULTS ORDERED: ADULT OCCUPATIONAL THERAPY CONSULT IP ADULT PHYSICAL THERAPY CONSULT IP ADULT SPEECH THERAPY CONSULT IP (ACUTE CARE REHAB) CARE MANAGEMENT CONSULT IP NEUROLOGY CONSULT IP REHAB CONSULT IP NEUROSURGERY CONSULT IP OTOLARYNGOLOGY CONSULT IP NUTRITION SERVICES (DIETITIAN) CONSULT IP WOUND/OSTOMY CONSULT IP VASCULAR SURGERY CONSULT IP REFERRING PHYSICIAN: REF: TORRES PURVIS PRIMARY CARE PROVIDER: PCP: Art Cavazos DO [address] [facility] [place] [facility] [address] (office) [phone] (fax) Note: To contact a physician responsible for this patients hospital care, please call [employer] [phone]. Cosigned by Emily Claire MD at 05/17/2024 4:51 PM EST Associated attestation - Emily Claire MD - 05/17/2024 4:51 PM EST I saw and evaluated the patient today. I have reviewed the resident/fellow physician note and agree. documented in this encounter Discharge Instructions * Discharge Instr - AVS* Issa Bautista DO - 05/16/2024 6:57 AM EST Discharge Date: 05/17/[address] Issa Bautista of the department of Neurology at [phone] during business hours for any questions or test results. For after-hours emergencies call [phone] and have the on callNeurologist paged. If you do not have a Neurology followup appointment scheduled prior to discharge, please call [phone] to schedule the appointment at your earliest convenience. The information below provides you with the instructions and the list of medications you need to betaking following discharge from the hospital. If you have any questions, please ask before leaving.Please carry this letter with you when you see your doctor in the clinic. If you have questions, you can reach us at the numbers above. Brief summary of your inpatient care: You came to the hospital due to stroke with left sided weakness and were found to have a stroke in the right middle cerebral artery. You got a clot busting medication at the time of admission and were monitored in the ICU for blood pressure control and post stroke monitoring. Neurosurgeons attempted to unblock the arteries in your brain but at the time of the angiogram there was no obvious blockage. They were able to place a stent in the left carotid artery which was narrowed and believed to bethe source of your stroke. You were confused and agitated during this hospitalization requiring mediations to help you keep calm and sometimes an NG tube had to be placed to ensure you were getting medication, but you were able to eat and take pills while not agitated. Your primary diagnosis at discharge was acute ischemic stroke due to symptomatic left ICA stenosis Your doctors during this hospitalization included: Dr. Sky Mack and Dr. Issa Bautista Inpatient test results pending: None Operations & Procedures: 05/09/24 DSA and left ICA stent placement Complications: Small right AV fistula. Assessed by vascular surgery who deemed no intervention was warranted. Advance Directive Documented: Advance Directive Does the Patient have an Advance Directive? Yes Diet: ADULT COMPLEX DIET: Minced and moist food (level 6), thin liquids (level 0) Activity: As tolerated Driving: Do not drive. Date you may return to work or school: N/A See your primary care physician (Art Cavazos DO) in 1 week See neurology in 6 weeks Seen neurosurgery 06/16/23 SPECIAL INSTRUCTIONS: Continue to optimize BP medications for goal BP of <130/80 with caution to avoid acute hypotension and hypokalemia. [place] [address] at any point after discharge to get your Zio patch in order to monitor you for atrial fibrilation Medication Sig Potassium Chloride 10 MEQ/100ML Intravenous Solution Administer 30 mEq at 100 mL/hr over 180 minutes via peripheral line daily as needed for Other (If patient is unable to tolerate oral potassium administer 30 mEq IV potassium chlorid in at a rate of 10 mEq per hour.). Chlorthalidone 25 MG Oral Tablet (Hygroton) Take 1 Tablet by mouth in the morning. Melatonin 3 MG Oral Tablet Take 1 Tablet by mouth at bedtime. Olmesartan Medoxomil 20 MG Oral Tablet (Benicar) Take 1 Tablet by mouth in the morning. Pantoprazole Sodium 40 MG Oral Tablet Delayed Release (Protonix) Take 1 Tablet by mouth in the morning. Potassium Chloride ER 10 MEQ Oral Tablet Extended Release Take 4 Tablets by mouth in the morning. QUEtiapine Fumarate 25 MG Oral Tablet (SEROquel) Take 1 Tablet by mouth in the morning. QUEtiapine Fumarate 50 MG Oral Tablet (SEROquel) Take 1 Tablet by mouth every night at bedtime. Acetaminophen 325 MG Oral Tablet (Tylenol) Administer 2 Tablets into NG tube every 4 hours as needed for Fever >38C(100.5F) or Pain, Moderate. Maximum of 4,000mg per day Atorvastatin Calcium 40 MG Oral Tablet (Lipitor) Take 1 Tablet by mouth every afternoon. Chlorhexidine Gluconate 0.12 % Mouth/Throat Solution (Periogard) Apply 15 mL to inside of cheek in the morning and 15 mL in the evening. Clopidogrel Bisulfate 75 MG Oral Tablet (pLAVix) Take 1 Tablet by mouth in the morning. Review needed duration of Plavix with neurosurgeon at follow up.. hydrALAZINE HCl 10 MG Oral Tablet (Apresoline) Take 1 Tablet by mouth in the morning and 1 Tablet in the evening. Sennosides 8.6 MG Oral Tablet (Senokot) Administer 1 Tablet into NG tube in the morning and 1 Tablet before bedtime. Empagliflozin 25 MG Oral Tablet (Jardiance) Take 1 Tablet by mouth in the morning. Ketoconazole 2 % External Shampoo (Nizoral) Lather into scalp in the shower, leave in for 3 minutes, then rinse. Do this three times per week Allopurinol 100 MG Oral Tablet (Zyloprim) Take 1 Tablet by mouth in the morning. Latanoprost 0.005 % Ophthalmic Solution (Xalatan) Instill 1 Drop into both eyes once daily every evening as directed OneTouch Ultra In Vitro Strip (Glucose Blood) TEST 1 TO 2 TIMES DAILY. Sildenafil Citrate 20 MG Oral Tablet (Revatio) TAKE ONE TABLET BY MOUTH 1-4 HOURS BEFORE INTERCOURSE. NO MORE THAN 1 DOSE IN 24 HOURS. Vitamin D-400 10 MCG (400 UNIT) Oral Tablet (cholecalciferol (VIT D3)) Take 2 Tablets by mouth daily. Loom DecorTouch UltraSoft Lancets Use to test sugars once daily Ferrous Sulfate 325 (65 Fe) MG Oral Tablet (Feosol) Take 1 Tablet by mouth every afternoon. aspirin 81 MG chewable tablet Take 1 Tablet by mouth in the morning. with food.. GLUCOSAMINE CHONDR 1500 COMPLX PO CAPS Take 1 Capsule by mouth in the morning and 1 Capsule before bedtime. Pt takes tablets. B-12 1000 MCG PO TBCR Take by mouth 1 Tablet daily . FISH OIL 1000 MG PO CAPS Take 1 Capsule by mouth in the morning. [employer] ULTRA SYSTEM W/DEVICE KIT Use up to four times a day as directed Stroke education was given for the following: Risk factors for stroke. Patient given written [employer] handouts: Risk Factors for Stroke Symptoms of a Stroke Discharge Instructions for Stroke Discharge Instructions for Transient Ischemic Attack (TIA) When to Use the Emergency Room (ER) Stroke: Taking Medications Make sure to bring the following items to your neuro follow-up appointment: (use the lines below as a check list when preparing for follow-up appointment) Medication list and medications in their bottles Copy of discharge instructions Any outside records Copies of any outside images Family member or friend A list of any questions you may have Stroke Support Group Information: When: FIRST Friday of each month Time: 1:00 pm Where: As of August 13, 2020, support group is virtual via [employer] Who: Open to public (any Stroke Survivor, family member, or caregiver) Info: For more information and [employer] Link, please call Laina Tomas OT at [phone] IF YOU HAVE ANY OF THE FOLLOWING SYMPTOMS, CALL 911 IMMEDIATELY. BE FAST Balance - Loss of balance, headache or dizziness Eyes - Blurred vision Face - One side of the face is drooping. Arms - Arm or leg weakness Speech - Speech difficulty Time - Time to call for ambulance immediately documented in this encounter Progress Notes * Issa Bautista DO - 05/16/2024 6:30 AM EST STROKE PROGRESS NOTE - Stroke / Vascular Neurology [facility] [address] Name: Fabien Little Jr. [place] [facility] Date: 05/16/2024 Time: 6:30 AM SUBJECTIVE: Fabien Little Jr. is a 84 year old patient initially seen for stroke. He was a transfer from [facility]: he had presented with R arm weakness, got TNK at about 1200 on the 14th, his weakness improved. CTA showed a L M3 occlusion. Then while in the hospital he developed worsening symptoms including aphasia; a repeat CTA showed an M2 occlusion. DSA showed no LVO and he was treated with a LICA stent and DAPT. Changes since last visit: No acute events overnight NGT has been removed. He remains aphasic but has not been agitated with Seroquel increased to 50 mgHS and 25 mg in the morning. Blood pressures remain elevated in the 180s and potassium is borderline low. 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 Ordered medicationsto be given in the future also display. Current Facility-Administered Medications Medication Dose Route Frequency Provider melatonin tab 5 mg 5 mg Oral HS France Gilmore DO QUEtiapine (SEROquel) tab 25 mg 25 mg Oral Q8H PRN France Gilmore DO Acetaminophen (Tylenol) tab 650 mg 650 mg Oral Q4H PRN Camilo Wright MD aspirin chew tab 81 mg 81 mg Oral Daily(AM) Camilo Wright MD atorvaSTATin (Lipitor) tab 40 mg 40 mg Oral Q 1700 Denis Harris MD Chlorthalidone (Hygroton) tab 25 mg 25 mg Oral Daily(AM) Camilo Wright MD clopidogrel (pLAVix) tab 75 mg 75 mg Oral Daily(AM) Camilo Wright MD hydrALAZINE (Apresoline) tab 10 mg 10 mg Oral BID (0700,1900) Denis Harris MD olmesartan (Benicar) tab 20 mg 20 mg Oral Daily(AM) Camilo Wright MD pantoprazole (Protonix) tab 40 mg 40 mg Oral Daily(AM) Camilo Wright MD potassium chloride ER tab 40 mEq 40 mEq Oral Daily(AM) Denis Harris MD QUEtiapine (SEROquel) tab 25 mg 25 mg Oral BID(AM/PM) Camilo Wright MD senna (Senokot) 1 Tablet 1 Tablet Oral BID(AM/PM) Camilo Wright MD labetalol (Trandate) inj 10 mg 10 mg Intravenous Q1H PRN Denis Harris MD insulin aspart (NovoLOG) inj Subcutaneous With meals Denis Harris MD Insulin Glargine (Lantus) inj 4 Units 4 Units Subcutaneous HS insulin Denis Hraris MD Enoxaparin (Lovenox) inj 40 mg 40 mg Subcutaneous Daily(AM) Issa Bautista DO insulin aspart (NovoLOG) inj Subcutaneous With Meals and HS Issa Bautista DO dextrose 50% inj 25 mL 25 mL IV Push PRN Issa Bautista DO dextrose 50% inj 50 mL 50 mL IV Push PRN Issa Bautista DO glucagon (Glucagen) inj 1 mg 1 mg Intramuscular PRN Issa Bautista DO Latanoprost (Xalatan) 0.005 % ophthalmic solution 1 Drop 1 Drop Both eyes QPM 1999 Issa Bautista DO OBJECTIVE: Physical Examination: Most Recent Vital Signs: BP: 155 mmHg/88 mmHg (05/15/242240) Pulse: 93 (05/15/242226) Resp: 18 (05/15/242226) Temp: 36.89 C (05/15/242226) Temp Summary: Temp Min: 36.9 C (98.4 F) Max: 37.4 C (99.3 F) SpO2: 94 % (05/15/242226) O2 flow rate: 0 L/MIN (05/14/24220) Supplemental O2 Delivery: Room Air, None (05/15/242226) Weight: 83.2 kg (183 lb 8 oz) (05/15/24932) Body mass index is 28.11 kg/m. Vital Signs Last 24 Hours: Systolic BP: Most Recent Systolic BP Av.2 mmHg Min: 146 mmHg Max: 174 mmHg Temperature: Most Recent Temperature Av.1 C Min: 36.89 C Max: 37.39 C Pulse: Pulse Av.5 Min: 84 Max: 114 Respirations: Resp Av.7 Min: 16 Max: 20 SpO2: SpO2 Av % Min: 94 % Max: 96 % General Examination: Constitutional: Appearance non-obese, no deformities, well groomed, and in bed Head/face, ears, nose, throat: normocephalic, atraumatic Cardiovascular: regular rate and regular rhythm Psychiatric: not agitated and otherwise unable to assess, due to altered mental status Neurologic Examination: Ophthalmoscopic: deferred due to insufficient pupillary dilation Mental Status and Orientation: Somnolent, reacts to noxious stimuli but otherwise limited interactivity Memory: CHERYL due to AMS Attention: diminished Knowledge:diminished Language: no aphasia. Speech: Mild-moderate dysarthria Cranial Nerves: CN 2 - pupils round, equal, reactive to light CN 3, 4, 6 - extra-ocular movements intact and no nystagmus CN 5 - facial sensation intact V1-3 CN 7 - no facial asymmetry CN 8 - intact hearing CN 9, 10 - CHERYL due to AMS CN 11 - CHERYL due to AMS CN 12 - CHERYL due to AMS Sensory: intact to light touch Coordination: Unable to assess 2/2 restraints Gait: CHERYL due to fall risk Muscle Tone: normal Muscle exam: Bilateral legs against gravity. Unable to formally assess UEs due to restraints Reflexes: Plantars downgoing on left, upgoing on R Personal Review and Interpretation of New Neuroimaging: I have reviewed Radiologic Studies and noted significant findings as follows: MRI brain 05/10/2024: IMPRESSION Multiple small acute infarcts in the left cerebral hemisphere, the largest in the parietal lobe. These are in the middle anterior cerebral artery distribution. Small petechial hemorrhage in the left postcentral gyrus. I have reviewed the following Diagnostic Tests and noted significant findings as follows: TTE w/o bubble study 05/09/24: EF 55% Interpretation Summary The primary indication after review was deemed appropriate and the examination was performed. The qualitative LV ejection fraction is 55-59% (normal). No LV segmental wall motion abnormalities. The left ventricular diastolic function is mildly abnormal (grade I). The aortic root is mildly enlarged. Trace bubbles visualized in the LV s/p valsalva consistent with Positive Bubble study 2/2 small PFO. LABS: Labs reviewed as indicated below: LDL: 124 A1C: 7.1 IMPRESSION: 84-year-old male with PMHx as above, presenting as a transfer from [facility] for suspected L M2 occlusion. He initially presented to [facility] with R weakness (out of proportion to his prior L MCA stroke), was given TNK at around 1200 on the , noted to have a left M3 on CTA. His symptoms worsened, repeat CTA showed left M2 occlusion, so [place] [facility] [place] and [place]. CTP showed slowed perfusion in the left hemisphere. DSA was performed and no LVO was found, but LICA stent was placed. Patient was placed on heparin drip and then transitioned to DAPT. MRI brain showed multiple small acute infarcts in the left cerebral hemisphere, the largest in the parietal lobe. These are in the middle anterior cerebral artery distribution. Small petechial hemorrhage in the left postcentral gyrus. TTE showing small PFO, unlikely contributory. LDL 124, A1C 7.1 His clinical course was complicated by hyperactive delirium which required Precedex which was eventually transitioned to scheduled seroquel. LTM EEG showed slowing but no epileptiform activity. NG tube was placed due to poor oral tolerance but with resolution of his delirium he began eating PO. 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 Soft & bite-sized solids with thin liquids via cup or straw 2. Supervision/assistance for meals 3. Small bites/sips and slow rate 4. HOB 90 degree for all intake, including medications 5. Meds as tolerated Stroke Checklist: DVT Prophylaxis: receiving chemical and mechanical Antithrombotic Therapy: receiving antiplatelet or anticoagulation Atrial Fibrillation or Flutter: no Statin: receiving - high intensity Stroke Education: could not be provided due to: patient has altered mental status Rehab Therapy Plan: O.T., P.T., and Speech Disposition: Ride to SNF on Friday Patient Has Decision Making Capacity: no, reason: AMS Code Status: No Code The patient was examined and was discussed with Dr. Mack. Cosigned by Paul Mack MD at 05/16/2024 4:30 PM EST Associated attestation - Paul Mack MD - 05/16/2024 4:30 PM EST I saw and evaluated the patient today. I have reviewed the resident/fellow physician note and agree. * Camilo Wright MD - 05/15/2024 6:43 AM EST STROKE PROGRESS NOTE - Stroke / Vascular Neurology [facility] [address] Name: Fabien Little Jr. [place] [facility] Date: 05/15/2024 Time: 6:43 AM SUBJECTIVE: Fabien Little Jr. is a 84 year old patient initially seen for stroke. He was a transfer from [facility]: he had presented with R arm weakness, got TNK at about 1200 on the , his weakness improved. CTA showed a L M3 occlusion. Then while in the hospital he developed worsening symptoms including aphasia; a repeat CTA showed an M2 occlusion. DSA showed no LVO and he was treated with a LICA stent and DAPT. Changes since last visit: Overnight, removed NGT with his R arm. NGT was replaced and patient was changed to bilateral restraints. This morning, patient is resting comfortably in bed. Disoriented but responding to questions appropriately and following commands. No acute complaints at this time. 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 Ordered medicationsto be given in the future also display. Current Facility-Administered Medications Medication Dose Route Frequency Provider aspirin chew tab 81 mg 81 mg NG Tube Daily(AM) France Gilmore DO atorvaSTATin (Lipitor) tab 40 mg 40 mg NG Tube Q 1700 France Gilmore DO Chlorthalidone (Hygroton) tab 25 mg 25 mg NG Tube Daily(AM) France Gilmore DO clopidogrel (pLAVix) tab 75 mg 75 mg NG Tube Daily(AM) France Gilmore DO hydrALAZINE (Apresoline) tab 10 mg 10 mg NG Tube BID (0700,1900) France Gilmore DO labetalol (Trandate) inj 10 mg 10 mg Intravenous Q1H PRN Denis Harris MD olmesartan (Benicar) tab 20 mg 20 mg NG Tube Daily(AM) France Gilmore DO pantoprazole (Protonix) tab 40 mg 40 mg Oral Daily(AM) Issa Bautista DO potassium chloride ER tab 10 mEq 10 mEq Oral Daily(AM) Issa Bautista DO QUEtiapine (SEROquel) tab 25 mg 25 mg NG Tube QHS France Gilmore DO senna (Senokot) 1 Tablet 1 Tablet NG Tube BID(AM/PM) France Gilmore DO insulin aspart (NovoLOG) inj Subcutaneous With meals Denis Harris MD Insulin Glargine (Lantus) inj 4 Units 4 Units Subcutaneous HS insulin Denis Harris MD Enoxaparin (Lovenox) inj 40 mg 40 mg Subcutaneous Daily(AM) Issa Bautista DO insulin aspart (NovoLOG) inj Subcutaneous With Meals and HS LilyIssa DO dextrose 50% inj 25 mL 25 mL IV Push PRN LilyIssa DO dextrose 50% inj 50 mL 50 mL IV Push PRN Lily DO Issa glucagon (Glucagen) inj 1 mg 1 mg Intramuscular PRN Lily DO Issa Acetaminophen (Tylenol) tab 650 mg 650 mg NG Tube Q4H PRN Lily DO Issa Latanoprost (Xalatan) 0.005 % ophthalmic solution 1 Drop 1 Drop Both eyes QPM 2000 LilyIssa DO OBJECTIVE: Physical Examination: Most Recent Vital Signs: BP: 153 mmHg/103 mmHg (05/15/24 0551) Pulse: 78 (05/15/24599) Resp: 17 (05/15/24614) Temp: 37 C (05/15/24599) Temp Summary: Temp Min: 36.5 C (97.7 F) Max: 37 C (98.6 F) SpO2: 96 % (05/15/24599) O2 flow rate: 0 L/MIN (05/14/24 022) Supplemental O2 Delivery: Room Air, None (05/15/24599) Weight: 88.4 kg (194 lb 14.2 oz) (05/14/24 020) Body mass index is 29.85 kg/m. Vital Signs Last 24 Hours: Systolic BP: Most Recent Systolic BP Av.5 mmHg Min: 153 mmHg Max: 191 mmHg Temperature: Most Recent Temperature Av.7 C Min: 36.5 C Max: 37 C Pulse: Pulse Av Min: 67 Max: 88 Respirations: Resp Av.3 Min: 16 Max: 18 SpO2: SpO2 Av % Min: 96 % Max: 96 % General Examination: Constitutional: Appearance non-obese, no deformities, well groomed, and in bed Head/face, ears, nose, throat: normocephalic, atraumatic Cardiovascular: regular rate and regular rhythm Psychiatric: not agitated and otherwise unable to assess, due to altered mental status Neurologic Examination: Ophthalmoscopic: deferred due to insufficient pupillary dilation Mental Status and Orientation: Somnolent, reacts to noxious stimuli but otherwise limited interactivity Memory: CHERYL due to AMS Attention: diminished Knowledge:diminished Language: no aphasia. Speech: Mild-moderate dysarthria Cranial Nerves: CN 2 - pupils round, equal, reactive to light CN 3, 4, 6 - extra-ocular movements intact and no nystagmus CN 5 - facial sensation intact V1-3 CN 7 - no facial asymmetry CN 8 - intact hearing CN 9, 10 - CHERYL due to AMS CN 11 - CHERYL due to AMS CN 12 - CHERYL due to AMS Sensory: intact to light touch Coordination: Unable to assess 2/2 restraints Gait: CHERYL due to fall risk Muscle Tone: normal Muscle exam: Bilateral legs against gravity. Unable to formally assess UEs due to restraints Reflexes: Plantars downgoing on left, upgoing on R Personal Review and Interpretation of New Neuroimaging: I have reviewed Radiologic Studies and noted significant findings as follows: MRI brain 05/10/2024: IMPRESSION Multiple small acute infarcts in the left cerebral hemisphere, the largest in the parietal lobe. These are in the middle anterior cerebral artery distribution. Small petechial hemorrhage in the leftpostcentral gyrus. I have reviewed the following Diagnostic Tests and noted significant findings as follows: TTE w/o bubble study 05/09/24: EF 55% Interpretation Summary The primary indication after review was deemed appropriate and the examination was performed. The qualitative LV ejection fraction is 55-59% (normal). No LV segmental wall motion abnormalities. The left ventricular diastolic function is mildly abnormal (grade I). The aortic root is mildly enlarged. Trace bubbles visualized in the LV s/p valsalva consistent with Positive Bubble study 2/2 small PFO. LABS: Labs reviewed as indicated below: LDL: 124 A1C: 7.1 IMPRESSION: 84-year-old male with PMHx as above, presenting as a transfer from [facility] for suspected R M2 occlusion. He initially presented to [facility] with R weakness (out of proportion to his prior L MCA stroke), was given TNK at around 1200 on the , noted to have a left M3 on CTA. His symptoms worsened, repeat CTA showed left M2 occlusion, so [place] [facility] [place]. CTP showed slowed perfusion in the left hemisphere. DSA was performed and no LVO was found, but LICA stent was placed. Patient was placed on heparin drip and then transitioned to DAPT. MRI brain showed multiple small acute infarcts in the left cerebral hemisphere, the largest in the parietal lobe. These are in the middle anterior cerebral artery distribution. Small petechial hemorrhage in the left postcentral gyrus. TTE showing small PFO, unlikely contributory. LDL 124, A1C 7.1 His clinical course was complicated by hyperactive delirium which required Precedex which was eventually transitioned to scheduled seroquel. LTM EEG showed slowing but no epileptiform activity. NG tube was placed due to poor oral tolerance but with resolution of his delirium he began eating PO. 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 Soft & bite-sized solids with thin liquids via cup or straw 2. Supervision/assistance for meals 3. Small bites/sips and slow rate 4. HOB 90 degree for all intake, including medications 5. Meds as tolerated Stroke Checklist: DVT Prophylaxis: receiving chemical and mechanical Antithrombotic Therapy: receiving antiplatelet or anticoagulation Atrial Fibrillation or Flutter: no Statin: receiving - high intensity Stroke Education: could not be provided due to: patient has altered mental status Rehab Therapy Plan: O.T., P.T., and Speech Disposition: Ride to SNF on Friday Patient Has Decision Making Capacity: no, reason: AMS Code Status: No Code The patient was examined and was discussed with Dr. Mack. Cosigned by Paul Mack MD at 05/15/2024 5:54 PM EST Associated attestation - Paul Mack MD - 05/15/2024 5:54 PM EST I saw and evaluated the patient today. I have reviewed the resident/fellow physician note and agree. * Julisa Rowe, RITCHIE - 05/15/2024 12:30 AM EST Nursing Critical Care Response Note [address] [address] Name: Fabien Little Jr. Date: 05/15/2024 Time: 1:00 AM Event [place]: [facility] Area: AP4 In the role of the Critical Response Nurse I was involved in the care of this patient. Method of notification to the critical care response nurse: Unit call/request for assistance Reason for notification or follow up: NG tube placement Observations/Interventions/Assessment: Asked to place NGT due to patient removing prior one. 14 fr NGT placed in left nares. Attempt x 3 due to coiling in the mouth. Taped at 65 cm marking on tube. Awaiting KUB results. Patient without complications. Outcome/Plan CRN can be contacted via Baring Text: [facility] Critical Response Nurse. * Xiomara Patel RN - 05/14/2024 6:45 PM EST Nursing Critical Care Response Note [address] [address] Name: Fabien Little Jr. Date: 05/14/2024 Time: 1845 Event Location: [facility] Area: AP4 In the role of the Critical Response Nurse I was involved in the care of this patient. Method of notification to the critical care response nurse: Unit call/request for assistance Reason for notification or follow up: NG tube placement Observations/Interventions/Assessment: 1st NGT placement by myself unsuccessful NGT curled in oral pharynx. 2nd NGT placed to tube [id number] external measurement 52 cm by Oseas CORLEY. Outcome/Plan Xray to be obtained to confirm placement. Care and monitoring to continue by bedside nurse. JORY sandy contacted via Baring Text: [facility] Critical Response Nurse. * Issa Bautista DO - 05/14/2024 7:40 AM EST STROKE PROGRESS NOTE - Stroke / Vascular Neurology [facility] [address] Name: Fabien Little Jr. [place] [facility] A467/A Date: 05/14/2024 Time: 7:40 AM SUBJECTIVE: Fabien Little Jr. is a 84 year old patient initially seen for stroke. He was a transfer from [facility]: he had presented with R arm weakness, got TNK at about 1200 on the , his weakness improved. CTA showed a L M3 occlusion. Then while in the hospital he developed worsening symptoms including aphasia; a repeat CTA showed an M2 occlusion. DSA showed no LVO and he was treated with a LICA stent and DAPT. Changes since last visit: Hypertensive to 180s this morning. 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 Ordered medicationsto be given in the future also display. Current Facility-Administered Medications Medication Dose Route Frequency Provider aspirin chew tab 81 mg 81 mg Oral Daily(AM) Issa Bautista DO atorvaSTATin (Lipitor) tab 40 mg 40 mg Oral Q 1700 Issa Bautista DO clopidogrel (pLAVix) tab 75 mg 75 mg Oral Daily(AM) Issa Bautista DO hydrALAZINE (Apresoline) inj 10 mg 10 mg Intravenous Q4H PRN Issa Bautista DO insulin aspart (NovoLOG) inj Subcutaneous With meals Denis Harris MD Insulin Glargine (Lantus) inj 4 Units 4 Units Subcutaneous HS insulin Denis Harris MD Isolyte-S pH 7.4 infusion Intravenous Continuous Issa Bautista DO olmesartan (Benicar) tab 40 mg 40 mg Oral Daily(AM) Denis Harris MD omeprazole (PriLOSEC) oral susp 40 mg 40 mg Oral Daily(AM) Issa Bautista DO QUEtiapine (SEROquel) tab 25 mg 25 mg Oral QHS Issa Bautista DO Enoxaparin (Lovenox) inj 40 mg 40 mg Subcutaneous Daily(AM) Issa Bautista DO insulin aspart (NovoLOG) inj Subcutaneous With Meals and HS Issa Bautista DO senna (Senokot) 1 Tablet 1 Tablet NG Tube BID(AM/PM) Issa Bautista DO dextrose 50% inj 25 mL 25 mL IV Push PRN Issa Bautista DO dextrose 50% inj 50 mL 50 mL IV Push PRN Issa Bautista DO glucagon (Glucagen) inj 1 mg 1 mg Intramuscular PRN Issa Bautista DO Acetaminophen (Tylenol) tab 650 mg 650 mg NG Tube Q4H PRN Issa Bautista DO chlorHEXIDINE (Periogard) 0.12 % oral rinse 15 mL 15 mL Oral mucosal membrane BID (0800,1999) Issa Bautista DO labetalol (Trandate) inj 20 mg 20 mg Intravenous Q1H PRN Issa Bautista DO Latanoprost (Xalatan) 0.005 % ophthalmic solution 1 Drop 1 Drop Both eyes QPM 2000 Issa Bautista DO Oral Hygiene: Mouth Swab with dentifrice Oral Q4H Limited (00;04;12;16) Issa Bautista DO OBJECTIVE: Physical Examination: Most Recent Vital Signs: BP: 182 mmHg/94 mmHg (05/14/24607) Pulse: 82 (05/14/24607) Resp: 18 (05/14/24607) Temp: 36.78 C (05/14/24607) Temp Summary: Temp Min: 36.8 C (98.2 F) Max: 37.4 C (99.3 F) SpO2: 91 % (05/14/24607) O2 flow rate: 0 L/MIN (05/14/24 0221) Supplemental O2 Delivery: Room Air, None (05/14/24607) Weight: 88.4 kg (194 lb 14.2 oz) (05/14/24 0200) Body mass index is 29.85 kg/m. Vital Signs Last 24 Hours: Systolic BP: Most Recent Systolic BP Av mmHg Min: 143 mmHg Max: 182 mmHg Temperature: Most Recent Temperature Av C Min: 36.78 C Max: 37.39 C Pulse: Pulse Av.6 Min: 71 Max: 100 Respirations: Resp Av Min: 16 Max: 20 SpO2: SpO2 Av.3 % Min: 91 % Max: 95 % General Examination: Constitutional: Appearance non-obese, no deformities, well groomed, ill appearing, in bed, and encephalopathic Head/face, ears, nose, throat: normocephalic, atraumatic Cardiovascular: regular rate and regular rhythm Psychiatric: not agitated and otherwise unable to assess, due to altered mental status Neurologic Examination: Ophthalmoscopic: deferred due to insufficient pupillary dilation Mental Status and Orientation: Somnolent, reacts to noxious stimuli but otherwise limited interactivity Memory: CHERYL due to AMS Attention: diminished Knowledge:unable to assess due to AMS Language: CHERYL due to AMS . Groans. Speech: no speech elicited Cranial Nerves: CN 2 - pupils round, equal, reactive to light CN 3, 4, 6 - Eyes midline, no visual tracking CN 5 - corneal reflexes present bilaterally CN 7 - no facial asymmetry CN 8 - unable to assess due to altered mental status CN 9, 10 - CHERYL due to AMS CN 11 - CHERYL due to AMS CN 12 - CHERYL due to AMS Sensory: responds to noxious stimuli Coordination: CHERYL due to AMS Gait: CHERYL due to AMS Muscle Tone: normal Muscle exam: LUE, and bilateral legs against gravity. RUE is flaccid. Reflexes: Plantars downgoing on left, upgoing on R Personal Review and Interpretation of New Neuroimaging: I have reviewed Radiologic Studies and noted significant findings as follows: MRI brain 05/10/2024: IMPRESSION Multiple small acute infarcts in the left cerebral hemisphere, the largest in the parietal lobe. These are in the middle anterior cerebral artery distribution. Small petechial hemorrhage in the left postcentral gyrus. I have reviewed the following Diagnostic Tests and noted significant findings as follows: TTE w/o bubble study 05/09/24: EF 55% Interpretation Summary The primary indication after review was deemed appropriate and the examination was performed. The qualitative LV ejection fraction is 55-59% (normal). No LV segmental wall motion abnormalities. The left ventricular diastolic function is mildly abnormal (grade I). The aortic root is mildly enlarged. Trace bubbles visualized in the LV s/p valsalva consistent with Positive Bubble study 2/2 small PFO. LABS: Labs reviewed as indicated below: LDL: 124 A1C: 7.1 IMPRESSION: 84-year-old male with PMHx as above, presenting as a transfer from [facility] for suspected R M2 occlusion. He initially presented to [facility] with R weakness (out of proportion to his prior L MCA stroke), was given TNK at around 1200 on the , noted to have a left M3 on CTA. His symptoms worsened, repeat CTA showed left M2 occlusion, so he was transferred [place] [facility] [place] and [place]. CTP showed slowed perfusion in the left hemisphere. DSA was performed and no LVO was found, but LICA stent was placed. Patient was placed on heparin drip and then transitioned to DAPT. MRI brain showed multiple small acute infarcts in the left cerebral hemisphere, the largest in the parietal lobe. These are in the middle anterior cerebral artery distribution. Small petechial hemorrhage in the left postcentral gyrus. TTE showing small PFO, unlikely contributory. LDL 124, A1C 7.1 His clinical course was complicated by hyperactive delirium which required Precedex which was eventually transitioned to scheduled seroquel. LTM EEG showed slowing but no epileptiform activity. He briefly had an NG tube in place due to poor oral tolerance but with resolution of his delirium he began eating PO. 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 Soft & bite-sized solids with thin liquids via cup or straw 2. Supervision/assistance for meals 3. Small bites/sips and slow rate 4. HOB 90 degree for all intake, including medications 5. Meds as tolerated Stroke Checklist: DVT Prophylaxis: receiving chemical and mechanical Antithrombotic Therapy: receiving antiplatelet or anticoagulation Atrial Fibrillation or Flutter: no Statin: receiving - high intensity Stroke Education: could not be provided due to: patient has altered mental status Rehab Therapy Plan: O.T., P.T., and Speech Disposition: Ride to SNF on Friday Patient Has Decision Making Capacity: no, reason: AMS Code Status: No Code The patient was examined and was discussed with Dr. Mack. Cosigned by Paul Mack MD at 05/14/2024 6:20 PM EST Associated attestation - Paul Mack MD - 05/14/2024 6:20 PM EST I saw and evaluated the patient today. I have reviewed the resident/fellow physician note and agree. * Issa Bautista DO - 05/13/2024 8:48 AM EST STROKE PROGRESS NOTE - Stroke / Vascular Neurology [facility] [address] Name: Fabien Little Jr. [place] [facility] A467/A Date: 05/13/2024 Time: 8:48 AM SUBJECTIVE: Fabien Little Jr. is a 84 year old patient initially seen for stroke. He was a transfer from [facility]: he had presented with R arm weakness, got TNK at about 1200 on the , his weakness improved. CTA showed a L M3 occlusion. Then while in the hospital he developed worsening symptoms including aphasia; a repeat CTA showed an M2 occlusion. DSA showed no LVO and he was treated with a LICA stent and DAPT. Changes since last visit: Fabien was transferred to floors from the ICU last night. No acute incidents overnight. He started eating by mouth yesterday and today speech has cleared him for minced and moist foods and thin liquids. NGT was removed. His creatinine continues to improve. He was started on gentle IV hydration. Mentally he is more alert but still with fluent aphasia. I spoke to Fabien's daughter Marcia and informed her of his current progress and planned discharge to rehab Friday. 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 Ordered medicationsto be given in the future also display. Current Facility-Administered Medications Medication Dose Route Frequency Provider Enoxaparin (Lovenox) inj 40 mg 40 mg Subcutaneous Daily(AM) Issa Bautista DO hydrALAZINE (Apresoline) tab 10 mg 10 mg NG Tube Q6H Issa Bautista DO insulin aspart (NovoLOG) inj Subcutaneous With Meals and HS Issa Bautista DO Nutren 1.5 liquid 60 mL/hr Tube feed QHS Issa Bautista DO QUEtiapine (SEROquel) tab 25 mg 25 mg NG Tube QHS Issa Bautista DO senna (Senokot) 1 Tablet 1 Tablet NG Tube BID(AM/PM) Issa Bautista DO dextrose 50% inj 25 mL 25 mL IV Push PRN Issa Bautista DO dextrose 50% inj 50 mL 50 mL IV Push PRN Issa Bautista DO glucagon (Glucagen) inj 1 mg 1 mg Intramuscular PRN Issa Bautista DO Acetaminophen (Tylenol) tab 650 mg 650 mg NG Tube Q4H PRN Issa Bautista DO aspirin chew tab 81 mg 81 mg NG Tube Daily(AM) Issa Bautista DO atorvaSTATin (Lipitor) tab 40 mg 40 mg NG Tube Q 1700 Issa Bautista DO chlorHEXIDINE (Periogard) 0.12 % oral rinse 15 mL 15 mL Oral mucosal membrane BID (0800,1999) Issa Bautista DO clopidogrel (pLAVix) tab 75 mg 75 mg NG Tube Daily(AM) Issa Bautista DO hydrALAZINE (Apresoline) inj 10 mg 10 mg Intravenous Q4H PRN Issa Bautista DO labetalol (Trandate) inj 20 mg 20 mg Intravenous Q1H PRN Issa Bautista DO Latanoprost (Xalatan) 0.005 % ophthalmic solution 1 Drop 1 Drop Both eyes QPM 2000 Issa Bautista DO omeprazole (PriLOSEC) oral susp 40 mg 40 mg NG Tube Daily(AM) Issa Bautista DO Oral Hygiene: Mouth Swab with dentifrice Oral Q4H Limited (00;04;12;16) Issa Bautista DO OBJECTIVE: Physical Examination: Most Recent Vital Signs: BP: 166 mmHg/98 mmHg (05/13/24 0603) Pulse: 92 (05/13/24 0600) Resp: 16 (05/13/24 0800) Temp: 37.61 C (05/13/24599) Temp Summary: Temp Min: 36.3 C (97.3 F) Max: 37.6 C (99.7 F) SpO2: 96 % (05/13/24599) O2 flow rate: 0 L/MIN (05/12/24 0567) Supplemental O2 Delivery: Room Air, None (05/12/242234) Weight: 80 kg (176 lb 6.4 oz) (05/13/243) Body mass index is 27.02 kg/m. Vital Signs Last 24 Hours: Systolic BP: Most Recent Systolic BP Av.4 mmHg Min: 118 mmHg Max: 182 mmHg Temperature: Most Recent Temperature Av C Min: 36.28 C Max: 37.61 C Pulse: Pulse Av.3 Min: 64 Max: 94 Respirations: Resp Av.3 Min: 15 Max: 35 SpO2: SpO2 Av.6 % Min: 88 % Max: 97 % General Examination: Constitutional: Appearance non-obese, no deformities, well groomed, ill appearing, in bed, and encephalopathic Head/face, ears, nose, throat: normocephalic, atraumatic Cardiovascular: regular rate and regular rhythm Psychiatric: not agitated and otherwise unable to assess, due to altered mental status Neurologic Examination: Ophthalmoscopic: deferred due to insufficient pupillary dilation Mental Status and Orientation: Somnolent, reacts to noxious stimuli but otherwise limited interactivity Memory: CHERYL due to AMS Attention: diminished Knowledge:unable to assess due to AMS Language: CHERYL due to AMS . Groans. Speech: no speech elicited Cranial Nerves: CN 2 - pupils round, equal, reactive to light CN 3, 4, 6 - Eyes midline, no visual tracking CN 5 - corneal reflexes present bilaterally CN 7 - no facial asymmetry CN 8 - unable to assess due to altered mental status CN 9, 10 - CHERYL due to AMS CN 11 - CHERYL due to AMS CN 12 - CHERYL due to AMS Sensory: responds to noxious stimuli Coordination: CHERYL due to AMS Gait: CHERYL due to AMS Muscle Tone: normal Muscle exam: LUE, and bilateral legs against gravity. RUE is flaccid. Reflexes: Plantars downgoing on left, upgoing on R Personal Review and Interpretation of New Neuroimaging: I have reviewed Radiologic Studies and noted significant findings as follows: MRI brain 05/10/2024: IMPRESSION Multiple small acute infarcts in the left cerebral hemisphere, the largest in the parietal lobe. These are in the middle anterior cerebral artery distribution. Small petechial hemorrhage in the left postcentral gyrus. I have reviewed the following Diagnostic Tests and noted significant findings as follows: TTE w/o bubble study 05/09/24: EF 55% Interpretation Summary The primary indication after review was deemed appropriate and the examination was performed. The qualitative LV ejection fraction is 55-59% (normal). No LV segmental wall motion abnormalities. The left ventricular diastolic function is mildly abnormal (grade I). The aortic root is mildly enlarged. Trace bubbles visualized in the LV s/p valsalva consistent with Positive Bubble study 2/2 small PFO. LABS: Labs reviewed as indicated below: LDL: 124 A1C: 7.1 IMPRESSION: 84-year-old male with PMHx as above, presenting as a transfer from [facility] for suspected R M2 occlusion. He initially presented to [facility] with R weakness (out of proportion to his prior L MCA stroke), was given TNK at around 1200 on the , noted to have a left M3 on CTA. His symptoms worsened, repeat CTA showed left M2 occlusion, so he was transferred [place] [facility] [place] and [place]. CTP showed slowed perfusion in the left hemisphere. DSA was performed and no LVO was found, but LICA stent was placed. Patient was placed on heparin drip and then transitioned to DAPT. MRI brain showed multiple small acute infarcts in the left cerebral hemisphere, the largest in the parietal lobe. These are in the middle anterior cerebral artery distribution. Small petechial hemorrhage in the left postcentral gyrus. TTE showing small PFO, unlikely contributory. LDL 124, A1C 7.1 His clinical course was complicated by hyperactive delirium which required Precedex which was eventually transitioned to scheduled seroquel. LTM EEG showed slowing but no epileptiform activity. He briefly had an NG tube in place due to poor oral tolerance but with resolution of his delirium he began eating PO. 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 status post stent) - S/p LICA stenting, DAPT per neurosurgery with follow up 06/16/24 - Lipitor 40 mg - Telemetry/Zio patch on DC - Return neurology 07/09/24 # Delirium (seizure ruled out on LTM) - Off of PCDX - On Seroquel 25 mg HS which we will continue for the time being - at time of discharge remind future providers to trial weaning this off as tolerated # Hypertension - Olmesartan 40 mg daily - Labetalol 20 mg PRN with HR >60 - Hydralazine 10 mg Q4 hours for SBP >160 + bradycardia # MICHAEL - Gradually improving Stroke Checklist: DVT Prophylaxis: receiving chemical and mechanical Antithrombotic Therapy: receiving antiplatelet or anticoagulation Atrial Fibrillation or Flutter: no Statin: receiving - high intensity Stroke Education: could not be provided due to: patient has altered mental status Rehab Therapy Plan: O.T., P.T., and Speech Disposition: Ride to SNF on Friday Patient Has Decision Making Capacity: no, reason: AMS Code Status: No Code The patient was examined and was discussed with Dr. Mack. Cosigned by Paul Mack MD at 05/14/2024 2:11 PM EST Associated attestation - Paul Mack MD - 05/14/2024 2:11 PM EST I saw and evaluated the patient 05/13. I have reviewed the resident/fellow physician note and agree. * Issa Bautista DO - 05/12/2024 7:36 AM EST STROKE PROGRESS NOTE - Stroke / Vascular Neurology [facility] [address] Name: Fabien Little Jr. [place] [facility] [id number]/A Date: 05/12/2024 Time: 7:36 AM SUBJECTIVE: Fabien Little Jr. is a 84 year old patient initially seen for stroke. He was a transfer from [facility]: he had presented with R arm weakness, got TNK at about 1200 on the , his weakness improved. CTA showed a L M3 occlusion. Then while in the hospital he developed worsening symptoms including aphasia; a repeat CTA showed an M2 occlusion. DSA showed no LVO and he was treated with a LICA stent and DAPT. Changes since last visit: Vascular surgery found a small AV fistula at the right groin, no intervention indicated, hematoma is improving. Clinically he is unchanged, arousable to voice but aphasic and not following commands, plegic on the right side. 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 Ordered medicationsto be given in the future also display. Current Facility-Administered Medications Medication Dose Route Frequency Provider hydrALAZINE (Apresoline) tab 10 mg 10 mg NG Tube Q6H Zunilda Sifuentes MD insulin aspart (NovoLOG) inj Subcutaneous With Meals and HS Zunilda Sifuentes MD Polyethylene Glycol 3350 (Miralax) oral powder 17 g 1 Packet NG Tube BID (0900,2100) Zunilda Sifuentes MD dextrose 50% inj 25 mL 25 mL IV Push PRN Maniakhina, Jessica, DO dextrose 50% inj 50 mL 50 mL IV Push PRN Maniakhina, Jessica, DO Docusate Sodium (Colace) oral liquid 100 mg 100 mg NG Tube BID(AM/PM) Zunilda Sifuentes MD glucagon (Glucagen) inj 1 mg 1 mg Intramuscular PRN Maniakhina, Jessica, DO QUEtiapine (SEROquel) tab 25 mg 25 mg NG Tube BID(AM/PM) Zunilda Sifuentes MD senna (Senokot) 1 Tablet 1 Tablet NG Tube BID(AM/PM) Zunilda Sifuentes MD Acetaminophen (Tylenol) tab 650 mg 650 mg NG Tube Q4H PRN Jessica Lopez DO aspirin chew tab 81 mg 81 mg NG Tube Daily(AM) John Paul Guerin DO atorvaSTATin (Lipitor) tab 40 mg 40 mg NG Tube Q 1700 John Paul Guerin DO chlorHEXIDINE (Periogard) 0.12 % oral rinse 15 mL 15 mL Oral mucosal membrane BID (0800,1999) John Paul Guerin DO clopidogrel (pLAVix) tab 75 mg 75 mg NG Tube Daily(AM) John Paul Guerin DO hydrALAZINE (Apresoline) inj 10 mg 10 mg Intravenous Q4H PRN John Paul Guerin DO labetalol (Trandate) inj 20 mg 20 mg Intravenous Q1H PRN John Paul Guerin DO Latanoprost (Xalatan) 0.005 % ophthalmic solution 1 Drop 1 Drop Both eyes QPM 2000 Linda Guerin DO omeprazole (PriLOSEC) oral susp 40 mg 40 mg NG Tube Daily(AM) John Paul Guerin DO Oral Hygiene: Mouth Swab with dentifrice Oral Q4H Limited (00;04;12;16) John Paul Guerin DO OBJECTIVE: Physical Examination: Most Recent Vital Signs: BP: 149 mmHg/74 mmHg (05/12/24 0700) Pulse: 70 (05/12/24 0700) Resp: 19 (05/12/24 07) Temp: 37.5 C (05/12/24599) Temp Summary: Temp Min: 37.2 C (99 F) Max: 37.6 C (99.7 F) SpO2: 95 % (05/12/24 07) O2 flow rate: 2 L/MIN (05/11/24 1300) Supplemental O2 Delivery: Room Air, None (05/12/24 07) Weight: 85 kg (187 lb 6.3 oz) (05/12/24 0600) Body mass index is 28.7 kg/m. Vital Signs Last 24 Hours: Systolic BP: Most Recent Systolic BP Av.4 mmHg Min: 111 mmHg Max: 184 mmHg Temperature: Most Recent Temperature Av.4 C Min: 37.22 C Max: 37.61 C Pulse: Pulse Av.7 Min: 62 Max: 86 Respirations: Resp Av.3 Min: 14 Max: 24 SpO2: SpO2 Av.9 % Min: 92 % Max: 98 % General Examination: Constitutional: Appearance non-obese, no deformities, well groomed, ill appearing, in bed, and encephalopathic Head/face, ears, nose, throat: normocephalic, atraumatic Cardiovascular: regular rate and regular rhythm Psychiatric: not agitated and otherwise unable to assess, due to altered mental status Neurologic Examination: Ophthalmoscopic: deferred due to insufficient pupillary dilation Mental Status and Orientation: Somnolent, reacts to noxious stimuli but otherwise limited interactivity Memory: CHERYL due to AMS Attention: diminished Knowledge:unable to assess due to AMS Language: CHERYL due to AMS . Groans. Speech: no speech elicited Cranial Nerves: CN 2 - pupils round, equal, reactive to light CN 3, 4, 6 - Eyes midline, no visual tracking CN 5 - corneal reflexes present bilaterally CN 7 - no facial asymmetry CN 8 - unable to assess due to altered mental status CN 9, 10 - CHERYL due to AMS CN 11 - CHERYL due to AMS CN 12 - CHERYL due to AMS Sensory: responds to noxious stimuli Coordination: CHERYL due to AMS Gait: CHERYL due to AMS Muscle Tone: normal Muscle exam: LUE, and bilateral legs against gravity. RUE is flaccid. Reflexes: Plantars downgoing on left, upgoing on R Personal Review and Interpretation of New Neuroimaging: I have reviewed Radiologic Studies and noted significant findings as follows: MRI brain 05/10/2024: IMPRESSION Multiple small acute infarcts in the left cerebral hemisphere, the largest in the parietal lobe. These are in the middle anterior cerebral artery distribution. Small petechial hemorrhage in the left postcentral gyrus. I have reviewed the following Diagnostic Tests and noted significant findings as follows: TTE w/o bubble study 05/09/24: EF 55% Interpretation Summary The primary indication after review was deemed appropriate and the examination was performed. The qualitative LV ejection fraction is 55-59% (normal). No LV segmental wall motion abnormalities. The left ventricular diastolic function is mildly abnormal (grade I). The aortic root is mildly enlarged. Trace bubbles visualized in the LV s/p valsalva consistent with Positive Bubble study 2/2 small PFO. LABS: Labs reviewed as indicated below: LDL: 124 A1C: 7.1 IMPRESSION: 84-year-old male with PMHx as above, presenting as a transfer from [facility] for suspected R M2 occlusion. He initially presented to [facility] with R weakness (out of proportion to his prior L MCA stroke), was given TNK at around 1200 on the , noted to have a left M3 on CTA. His symptoms worsened, repeat CTA showed left M2 occlusion, so [place] [facility] [place] CTP showed slowed perfusion in the left hemisphere. DSA was performed and no LVO was found, but LICA stent was placed. Patient was placed on heparin drip and then transitioned to DAPT. MRI brain showed multiple small acute infarcts in the left cerebral hemisphere, the largest in the parietal lobe. These are in the middle anterior cerebral artery distribution. Small petechial hemorrhage in the left postcentral gyrus. TTE showing small PFO, unlikely contributory. LDL 124, A1C 7.1 He has been agitated and confused, required Precedex. LTM EEG showed slowing but no epileptiform activity. He has been calm this morning as the Precedex weans off. 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 status post stent) # Encephalopathy (likely ICU delirium + stroke, no evidence of seizures) - S/p LICA stenting, DAPT per neurosurgery - Lipitor 40 mg - Telemetry/Zio patch on DC - PT/OT/Speech once awake - If mental status does not improve, further workup for metabolic causes of AMS # Delirium - Off of PCDX - On Seroquel 25 mg BID # Hypertension - Currently on Hydralazine 10 mg Q6h with an additional 10 mg Q4 hours for SBP >160 - Labetalol 20 mg PRN - Off of nicardipine Stroke Checklist: DVT Prophylaxis: receiving chemical and mechanical Antithrombotic Therapy: receiving antiplatelet or anticoagulation Atrial Fibrillation or Flutter: no Statin: receiving - high intensity Stroke Education: could not be provided due to: patient has altered mental status Rehab Therapy Plan: O.T., P.T., and Speech Patient Has Decision Making Capacity: no, reason: AMS Code Status: No Code The patient was examined and was discussed with Dr. Mack. Cosigned by Paul Mack MD at 05/12/2024 5:24 PM EST Associated attestation - Paul Mack MD - 05/12/2024 5:24 PM EST I saw and evaluated the patient today. I have reviewed the resident/fellow physician note and agree. * Zunilda Sifuentes MD - 05/12/2024 5:52 AM EST CCM - [place]GR[place] [facility] [id number] Name: Fabien Little JrDilip [place] [facility] [place]438[place]A Date: 05/10/2024 Time: 6:42 AM PATIENT DESCRIPTION: 84yoM with PMH of HTN, CKD3, GERD, who presents as a transfer from [facility] for further management of LMCA stroke and direct admit [place] [facility] [place] . Patient was found to have left M2 occlusion for which patient received TNK at 12:57 p.m.05/09. Patient found to have dense right hemiparesis as well as expressive aphasia. On DSA patient noted to have recanalized left M2 however left carotid stenosis was noted for which patient underwent stenting. Patient was subsequently started on heparin infusion Interval History: Overnight groin hematoma felt to be larger and vascular was notified. No intervention required. Patient evaluated at bedside this morning. No new changes. CONSTITUTIONAL DATA: BP: 152 mmHg/73 mmHg (05/12/24 0500) Pulse: 77 (05/12/24 0500) Resp: 24 (05/12/24 0500) Temp: 37.22 C (05/12/24 0400) Temp Summary: Temp Min: 36.6 C (97.9 F) Max: 37.6 C (99.7 F) SpO2: 96 % (05/12/24 0500) O2 flow rate: 2 L/MIN (05/11/24 1300) Supplemental O2 Delivery: Room Air, None (05/12/24 0500) PHYSICAL EXAM: General: Ill-appearing HEENT: atraumatic, normocephalic, MMM, EOMI, PERRLA Neck: supple, no masses Chest: no use of accessory muscles, clear to auscultation, no wheezes, rales, or rhonchi Cardiac: RRR, no murmurs, rubs, or gallops auscultated Abdomen: soft active bowel sounds, no CVA tenderness, no organomegaly Extremities: no LE edema; dorsalis pedis and posterior tibial pulses 2+ and equal b/l Skin: warm, dry, and intact. No cyanosis, ecchymosis, pallor, or jaundice, hematoma to R groin Neuro: Moves left upper and lower extremities spontaneously, hemiplegia right side, aphasic, does not follow commands Psych: Unable to assess LABORATORY VALUES: reviewed RADIOGRAPHIC STUDIES: reviewed Principal Problem: Acute ischemic left MCA stroke (HCC) (POA: Yes) Active Problems: HTN, goal below 140/90 (POA: Yes) Gastroesophageal reflux disease without esophagitis (POA: Yes) Type 2 diabetes mellitus with stage 3a chronic kidney disease, without long-term current use of insulin (HCC) (POA: Yes) Hypertensive kidney disease with stage 3a chronic kidney disease (HCC) (POA: Yes) Dyslipidemia, goal LDL below 70 (POA: Yes) Stroke with cerebral ischemia (HCC) (POA: Unknown) Left carotid stenosis (POA: Unknown) Right hemiparesis (HCC) (POA: Unknown) Mixed aphasia (POA: Unknown) POA = Present On Admission SYSTEM BASED PLAN: Neuro Left MCA stroke M2 occlusion Status post DCA: Left internal carotid stenosis status post stenting Right hemiparesis with aphasia Acute encephalopathy, multifactorial -Status post TPA 12:57 pm, 05/08 -History of alcohol use(1-2 drinks daily): No signs of withdrawal -Systolic blood pressure goal less than 160 -Repeat CT head was negative for head bleed. Patient did have moderate size acute left MCA territory infarct -MRI completed showing infarcts and small central gyrus petechial bleed -Continue aspirin 81 milligram daily -Continue atorvastatin 40 milligram daily -Continue Plavix 75 milligram day -DC LTM on 05/11 -continue Seroquel 25 mg twice daily Respiratory -on room air -Saturating more than 90% -Respiratory driven protocol Cardiovascular History of hypertension Small PFO Diastolic dysfunction -TTE -- EF 55%, grade 1 diastolic dysfunction, small PFO -target systolic blood pressure less than 160. P.r.n. labetalol and hydralazine ordered -increase SHIRT TURNER hydralazine to 10 mg q.6 hours, plan to increase to 25 mg q.6 hours if continues to remain hypertensive GI/hepatobiliary History of GERD Anderson's esophagus -evaluated by speech and cleared for pureed diet thin liquids -SHIRT TURNER omeprazole -last BM SHIRT TURNER, start senna and Colace, add miralax -we will consider starting tube feeds at night if continues to have poor p.o. intake Renal/electrolyte Acute kidney injury on stage III CKD>> likely prerenal; improving -Baseline creatinine 1.3-1.6 -current creatinine 1.5 -Continue to monitor kidney function test Endocrine History of chq-kazijqn-vlbkkcuiu type 2 diabetes mellitus -A1c 7.1 -Continue sliding scale insulin AC and HS -Hold SHIRT TURNER Jardiance Hematology R groin hematoma, suspected AV fistula -monitor CBC -Vascular Surgery consulted and no intervention needed at this time -resume subQ heparin Written for Med/Surg Lines Peripheral IV access x3 NG tube Patient was discussed with Dr. Samir Sifuentes MD Critical Care Medicine Fellow - PGY5 Cosigned by Sonali Dawson MD at 05/12/2024 3:44 PM EST Associated attestation - Sonali Dawson MD - 05/12/2024 3:44 PM EST I saw and evaluated the patient today. I have reviewed the resident/fellow physician note and agree. I spent a total of 52 minutes coordinating, documenting, and providing care for this patient excluding time spent in the performance of separately billed services or time spent by another provider/QHP. R groin hematoma stable. Intermittantly refusing medications. Will keep corflo for now. When consistantly taking meds and food will dc. Neuroligically stable. No overt ICU level needs Begin dispo planning Sonali Dawson MD,FACS,FCCM,FCCP Associate Critical Care and General Surgery * Zunilda Sifuentes MD - 05/11/2024 2:43 PM EST CCM - [place]GR[place] [facility] [address] Name: Fabien Little Jr. [place] [facility] [place]438[place]A Date: 05/10/2024 Time: 6:42 AM PATIENT DESCRIPTION: 84yoM with PMH of HTN, CKD3, GERD, who presents as a transfer from [facility] for further management of LMCA stroke and direct admit [place] [facility] [place] Patient was found to have left M2 occlusion for which patient received TNK at 12:57 p.m.05/09. Patient found to have dense right hemiparesis as well as expressive aphasia. On DSA patient noted to have recanalized left M2 however left carotid stenosis was noted for which patient underwent stenting. Patient was subsequently started on heparin infusion Interval History: No overnight events. Patient evaluated at bedside this morning. Sedated with Precedex at 0.3. Saturating well on 2 L nasal cannula. Addendum: In afternoon notified by nursing staff that has expanding R groin hematoma. CONSTITUTIONAL DATA: BP: 106 mmHg/57 mmHg (05/11/24399) Pulse: 61 (05/11/240) Resp: 18 (05/11/24399) Temp: 37 C (05/11/24399) Temp Summary: Temp Min: 36 C (96.8 F) Max: 37.4 C (99.3 F) SpO2: 95 % (05/11/24399) O2 flow rate: 2 L/MIN (05/11/24399) Supplemental O2 Delivery: Nasal Cannula (05/11/24399) PHYSICAL EXAM: General: Sedated, minimally follows commands, on 2 L nasal cannula HEENT: atraumatic, normocephalic, MMM, EOMI, PERRLA Neck: supple, no masses Chest: no use of accessory muscles, clear to auscultation, no wheezes, rales, or rhonchi Cardiac: RRR, no murmurs, rubs, or gallops auscultated Abdomen: soft active bowel sounds, no CVA tenderness, no organomegaly Extremities: no LE edema; dorsalis pedis and posterior tibial pulses 2+ and equal b/l Skin: warm, dry, and intact. No cyanosis, ecchymosis, pallor, or jaundice, hematoma to R groin Neuro: Full neurological examination could not be done due to patient's sedation Psych: Sedated LABORATORY VALUES: reviewed RADIOGRAPHIC STUDIES: reviewed Principal Problem: Acute ischemic left MCA stroke (HCC) (POA: Yes) Active Problems: HTN, goal below 140/90 (POA: Yes) Gastroesophageal reflux disease without esophagitis (POA: Yes) Type 2 diabetes mellitus with stage 3a chronic kidney disease, without long-term current use of insulin (HCC) (POA: Yes) Hypertensive kidney disease with stage 3a chronic kidney disease (HCC) (POA: Yes) Dyslipidemia, goal LDL below 70 (POA: Yes) Stroke with cerebral ischemia (HCC) (POA: Unknown) Left carotid stenosis (POA: Unknown) Right hemiparesis (HCC) (POA: Unknown) Mixed aphasia (POA: Unknown) POA = Present On Admission SYSTEM BASED PLAN: Neuro Left MCA stroke M2 occlusion Status post DCA: Left internal carotid stenosis status post stenting Right hemiparesis with aphasia Acute encephalopathy, multifactorial -Status post TPA 12:57 pm, 05/08 -History of alcohol use(1-2 drinks daily): No signs of withdrawal so far -Systolic blood pressure goal less than 160 -Repeat CT head was negative for head bleed. Patient did have moderate size acute left MCA territory infarct -MRI completed showing infarcts and small central gyrus petechial bleed -Continue aspirin 81 milligram daily -Continue atorvastatin 40 milligram daily -Continue Plavix 75 milligram day -DC LTM -Patient currently on low-dose Precedex for agitation, wean and can start seroquel Respiratory -on 2 L oxygen -Saturating more than 90% -Respiratory driven protocol -there was concern for upper airway bleeding status post extubation in OR, patient was evaluated byENT will there was no any evidence of bleed - wean supplemental oxygen Cardiovascular History of hypertension Small PFO Diastolic dysfunction -TTE -- EF 55%, grade 1 diastolic dysfunction, small PFO -target systolic blood pressure less than 160. P.r.n. labetalol and hydralazine ordered -start SHIRT TURNER hydralazine 10 mg twice daily GI/hepatobiliary History of GERD Anderson's esophagus -evaluated by speech and cleared for pureed diet thin liquids -SHIRT TURNER omeprazole -last BM SHIRT TURNER, start senna and Colace Renal/electrolyte Acute kidney injury on stage III CKD>> likely prerenal -Baseline creatinine 1.3-1.6 -current creatinine 1.9 -Continue to monitor kidney function test Endocrine History of wuk-kqidlfv-gqpddpbki type 2 diabetes mellitus -A1c 7.1 -Continue sliding scale insulin AC and HS -Hold SHIRT TURNER Jardiance Hematology R groin hematoma -monitor CBC, f/u TEG -right groin arterial ultrasound to rule out pseudoaneurysm/fistula -possible vascular surgery consult pending US results -hold subQ heparin in setting of hematoma Lines Peripheral IV access x2 NG tube Dominguez catheter, remove Dominguez catheter in place external cath instead Patient was discussed with Dr. Samir Sifuentes MD Critical Care Medicine Fellow - PGY5 Cosigned by Sonali Dawson MD at 05/11/2024 3:36 PM EST Associated attestation - Sonali Dawson MD - 05/11/2024 3:36 PM EST I saw and evaluated the patient today. I have reviewed the resident/fellow physician note and agree. I spent a total of 68 minutes coordinating, documenting, and providing care for this patient excluding time spent in the performance of separately billed services or time spent by another provider/QHP. There is a high probability of sudden clinically significant or life-threatening deterioration in the patient's condition that requires the highest level of physician preparedness to intervene urgently. High complexity decision-making to assess manipulate and support vital system to treat single or multiple vital organ system failure and/or prevent further life- threatening deterioration of the patient's condition is required. The following problems were reviewed and addressed during my assessment and evaluation. Principal Problem: Acute ischemic left MCA stroke (HCC) (POA: Yes) Active Problems: HTN, goal below 140/90 (POA: Yes) Gastroesophageal reflux disease without esophagitis (POA: Yes) Type 2 diabetes mellitus with stage 3a chronic kidney disease, without long-term current use of insulin (HCC) (POA: Yes) Hypertensive kidney disease with stage 3a chronic kidney disease (HCC) (POA: Yes) Dyslipidemia, goal LDL below 70 (POA: Yes) Stroke with cerebral ischemia (HCC) (POA: Unknown) Left carotid stenosis (POA: Unknown) Right hemiparesis (HCC) (POA: Unknown) Mixed aphasia (POA: Unknown) Gait abnormality (POA: Unknown) Impaired mobility and ADLs (POA: Unknown) Possible R femoral AV fistula All pertinent history, physical exam findings, labs, imaging and medications were reviewed and applied. Radial Arm Saw Operator input was evaluated. Pt neurologically improved still with focal deficit but more alert. More prominent R groin mass prompted US which showed not pseudoaneurysm but did show femoral/ext iliac pulsatile flow consistent with av fistula. Appreciate vascular input. Updated daughter at bedside. Sonali Dawson MD,FACS,FCCM,FCCP Associate Critical Care and General Surgery * Sathya Farah PA-C - 05/11/2024 12:18 PM EST BRIEF NEUROSURGERY PROGRESS NOTE Component Latest Ref Rng 05/11/2024 VerifyNow Aspirin >=550 ARU 479 (L) VerifyNow P2Y12 182 - 335 PRU 123 (L) Legend: (L) Low No further neurosurgical involvement required during this admission Will sign off Call with questions Will have patient follow up in clinic [address] Nelson (ordered) [place] Omar Farah [facility] [place] Lead Physician Career Services Officer, Department of Neurosurgery [employer] Business Representative of Neurosurgery, [facility] [facility] [employer] 05/11/2024 (This note was completed using the dictation program Fluency Direct. As such, there may be misspellings, word substitutions, or other variations that should not change the essence of the clinical content of this encounter note. If there is need for further clarification, please direct questions to the provider listed above.) * Issa Bautista DO - 05/11/2024 7:10 AM EST STROKE PROGRESS NOTE - Stroke / Vascular Neurology [facility] [place] [id number] Name: Fabien Little Jr. [place] [facility] A438[place]A Date: 05/11/2024 Time: 7:10 AM SUBJECTIVE: Fabien Little Jr. is a 84 year old patient initially seen for stroke. He was a transfer from [facility]: he had presented with R arm weakness, got TNK at about 1200 on the , his weakness improved. CTA showed a L M3 occlusion. Then while in the hospital he developed worsening symptoms including aphasia; a repeat CTA showed an M2 occlusion. Changes since last visit: - No acute events overnight. He remains on PCDX - No clinical or electrographic events of note on LTM, only moderate diffuse slowing. - He remains obtunded speaking only in grunts and groans, not following commands but moving all extremities except RUE which is still flaccid. 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 Ordered medicationsto be given in the future also display. Current Facility-Administered Medications Medication Dose Route Frequency Provider Acetaminophen (Tylenol) tab 650 mg 650 mg NG Tube Q4H PRN Jessica Lopez DO aspirin chew tab 81 mg 81 mg NG Tube Daily(AM) John Paul Guerin DO atorvaSTATin (Lipitor) tab 40 mg 40 mg NG Tube Q 1700 John Paul Guerin DO chlorHEXIDINE (Periogard) 0.12 % oral rinse 15 mL 15 mL Oral mucosal membrane BID (0800,1999) John Paul Guerin DO clopidogrel (pLAVix) tab 75 mg 75 mg NG Tube Daily(AM) John Paul Guerin DO dexmedeTOMIDine (Precedex) 400 mcg in 100 mL infusion 0-1.5 mcg/kg/hr Intravenous Titrate Fred Medrano PA-C hydrALAZINE (Apresoline) inj 10 mg 10 mg Intravenous Q4H PRN John Paul Guerin DO labetalol (Trandate) inj 20 mg 20 mg Intravenous Q1H PRN John Paul Guerin DO Latanoprost (Xalatan) 0.005 % ophthalmic solution 1 Drop 1 Drop Both eyes QPM 1999 Linda Guerin DO omeprazole (PriLOSEC) oral susp 40 mg 40 mg NG Tube Daily(AM) John Paul Guerin DO Oral Hygiene: Mouth Swab with dentifrice Oral Q4H Limited (00;04;12;16) John Paul Guerin DO OBJECTIVE: Physical Examination: Most Recent Vital Signs: BP: 148 mmHg/69 mmHg (05/11/24599) Pulse: 70 (05/11/24599) Resp: 18 (05/11/24599) Temp: 36.61 C (05/11/24599) Temp Summary: Temp Min: 36 C (96.8 F) Max: 37.4 C (99.3 F) SpO2: 95 % (05/11/24599) O2 flow rate: 2 L/MIN (05/11/24599) Supplemental O2 Delivery: Nasal Cannula (12/17/24 0600) Weight: 85.4 kg (188 lb 4.4 oz) (05/11/24 0600) Body mass index is 28.84 kg/m. Vital Signs Last 24 Hours: Systolic BP: Most Recent Systolic BP Av.5 mmHg Min: 97 mmHg Max: 178 mmHg Temperature: Most Recent Temperature Av.6 C Min: 36 C Max: 37.39 C Pulse: Pulse Av.9 Min: 54 Max: 82 Respirations: Resp Av.2 Min: 17 Max: 27 SpO2: SpO2 Av.9 % Min: 89 % Max: 96 % General Examination: Constitutional: Appearance non-obese, no deformities, well groomed, ill appearing, in bed, and encephalopathic Head/face, ears, nose, throat: normocephalic, atraumatic Cardiovascular: regular rate and regular rhythm Psychiatric: not agitated and otherwise unable to assess, due to altered mental status Neurologic Examination: Ophthalmoscopic: deferred due to insufficient pupillary dilation Mental Status and Orientation: Somnolent, reacts to noxious stimuli but otherwise limited interactivity Memory: CHERYL due to AMS Attention: diminished Knowledge:unable to assess due to AMS Language: CHERYL due to AMS . Groans once. Speech: no speech elicited Cranial Nerves: CN 2 - pupils round, equal, reactive to light CN 3, 4, 6 - Eyes midline, no visual tracking CN 5 - corneal reflexes present bilaterally CN 7 - no facial asymmetry CN 8 - unable to assess due to altered mental status CN 9, 10 - CHERYL due to AMS CN 11 - CHERYL due to AMS CN 12 - CHERYL due to AMS Sensory: responds to noxious stimuli Coordination: CHERYL due to AMS Gait: CHERYL due to AMS Muscle Tone: normal Muscle exam: LUE, and bilateral legs against gravity. RUE is flaccid. Reflexes: Plantars downgoing on left, upgoing on R Personal Review and Interpretation of New Neuroimaging: I have reviewed Radiologic Studies and noted significant findings as follows: MRI brain 05/10/2024: IMPRESSION Multiple small acute infarcts in the left cerebral hemisphere, the largest in the parietal lobe. These are in the middle anterior cerebral artery distribution. Small petechial hemorrhage in the left postcentral gyrus. I have reviewed the following Diagnostic Tests and noted significant findings as follows: TTE w/o bubble study 05/09/24: EF 55% Interpretation Summary The primary indication after review was deemed appropriate and the examination was performed. The qualitative LV ejection fraction is 55-59% (normal). No LV segmental wall motion abnormalities. The left ventricular diastolic function is mildly abnormal (grade I). The aortic root is mildly enlarged. Trace bubbles visualized in the LV s/p valsalva consistent with Positive Bubble study 2/2 small PFO. LABS: Labs reviewed as indicated below: LDL: 124 A1C: 7.1 IMPRESSION: 84-year-old male with PMHx as above, presenting as a transfer from [facility] for suspected R M2 occlusion. He initially presented to [facility] with R weakness (out of proportion to his prior L MCA stroke), was given TNK at around 1200 on the , noted to have a left M3 on CTA. His symptoms worsened, repeat CTA showed left M2 occlusion, so [place] was [place] [facility] [place] and [place]. CTP showed slowed perfusion in the left hemisphere. DSA was performed and no LVO was found, but LICA stent was placed. Patient was placed on heparin drip and then transitioned to DAPT. MRI brain showed multiple small acute infarcts in the left cerebral hemisphere, the largest in the parietal lobe. These are in the middle anterior cerebral artery distribution. Small petechial hemorrhage in the left postcentral gyrus. TTE showing small PFO, unlikely contributory. LDL 124, A1C 7.1 He has been agitated and confused, required Precedex. LTM EEG showed slowing but no epileptiform activity. He has been calm this morning as the Precedex weans off. 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 status post stent) # Encephalopathy (likely ICU delirium + stroke, no evidence of seizures) - S/p LICA stenting, DAPT per neurosurgery - Lipitor 40 mg - Disconnect LTM - Telemetry/Zio patch on DC - PT/OT/Speech once awake - If mental status does not improve, further workup for metabolic causes of AMS Stroke Checklist: DVT Prophylaxis: receiving chemical and mechanical Antithrombotic Therapy: receiving antiplatelet or anticoagulation Atrial Fibrillation or Flutter: no Statin: receiving - high intensity Stroke Education: could not be provided due to: patient has altered mental status Rehab Therapy Plan: O.T., P.T., and Speech Patient Has Decision Making Capacity: no, reason: AMS Code Status: No Code The patient was examined and was discussed with Dr. Mack. Cosigned by Paul Mack MD at 05/11/2024 5:34 PM EST Associated attestation - Paul Mack MD - 05/11/2024 5:34 PM EST I saw and evaluated the patient today. I have reviewed the resident/fellow physician note and agree. * Sonali Brandon MD - 05/10/2024 7:10 AM EST STROKE PROGRESS NOTE - Stroke / Vascular Neurology [facility] [address] Name: Fabien Little Jr. [place] [facility] A438[place]A Date: 05/10/2024 Time: 7:10 AM SUBJECTIVE: Fabien Little Jr. is a 84 year old patient initially seen for stroke. He was a transfer from [facility]: he had presented with R arm weakness, got TNK at about 1200 on the , his weakness improved. CTA showed a L M3 occlusion. Then while in the hospital he developed worsening symptoms including aphasia; a repeat CTA showed an M2 occlusion. Changes since last visit: Overnight was agitated, required Precedex. Weaning off as of this morning. Still very somnolent, keeps having apneas and has to be aroused. 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 Ordered medicationsto be given in the future also display. Current Facility-Administered Medications Medication Dose Route Frequency Provider aspirin chew tab 81 mg 81 mg NG Tube Daily(AM) John Paul Guerin DO atorvaSTATin (Lipitor) tab 40 mg 40 mg NG Tube Q 1700 John Paul Guerin DO chlorHEXIDINE (Periogard) 0.12 % oral rinse 15 mL 15 mL Oral mucosal membrane BID (0800,1999) John Paul Guerin DO clopidogrel (pLAVix) tab 75 mg 75 mg NG Tube Daily(AM) John Paul Guerin DO dexmedeTOMIDine (Precedex) 400 mcg in 100 mL infusion 0-1.5 mcg/kg/hr Intravenous Titrate Fred Medrano PA-C hEParin 25,000 units in 250 mL (Xa-Neurologic) infusion 0-30 Units/kg/hr (Adjusted) Intravenous Titrate John Paul Guerin DO hydrALAZINE (Apresoline) inj 10 mg 10 mg Intravenous Q4H PRN John Paul Guerin DO labetalol (Trandate) inj 20 mg 20 mg Intravenous Q1H PRN John Paul Guerin DO Latanoprost (Xalatan) 0.005 % ophthalmic solution 1 Drop 1 Drop Both eyes QPM 1999 Linda Guerin DO omeprazole (PriLOSEC) oral susp 40 mg 40 mg NG Tube Daily(AM) John Paul Guerin DO Oral Hygiene: Mouth Swab with dentifrice Oral Q4H Limited (00;04;12;16) John Paul Guerin DO OBJECTIVE: Physical Examination: Most Recent Vital Signs: BP: 149 mmHg/77 mmHg (05/10/24619) Pulse: 70 (05/10/24619) Resp: 26 (05/10/24619) Temp: 36.39 C (05/10/24599) Temp Summary: Temp Min: 36.1 C (97 F) Max: 37.7 C (99.9 F) SpO2: 93 % (05/10/24619) O2 flow rate: 2 L/MIN (12/16/24 0600) Supplemental O2 Delivery: Nasal Cannula (05/10/24 0600) Weight: 86.4 kg (190 lb 7.6 oz) (05/09/24 1015) Body mass index is 29.18 kg/m. Vital Signs Last 24 Hours: Systolic BP: Most Recent Systolic BP Av.3 mmHg Min: 81 mmHg Max: 186 mmHg Temperature: Most Recent Temperature Av.7 C Min: 36.11 C Max: 37.72 C Pulse: Pulse Av.6 Min: 52 Max: 98 Respirations: Resp Av.6 Min: 12 Max: 31 SpO2: SpO2 Av.1 % Min: 90 % Max: 99 % General Examination: Constitutional: Appearance non-obese, no deformities, well groomed, ill appearing, in bed, and encephalopathic Head/face, ears, nose, throat: normocephalic, atraumatic Cardiovascular: regular rate and regular rhythm Psychiatric: not agitated and otherwise unable to assess, due to altered mental status Neurologic Examination: Ophthalmoscopic: deferred due to insufficient pupillary dilation Mental Status and Orientation: Somnolent, reacts to noxious stimuli but otherwise limited interactivity Memory: CHERYL due to AMS Attention: diminished Knowledge:unable to assess due to AMS Language: CHERYL due to AMS . Groans once. Speech: no speech elicited Cranial Nerves: CN 2 - pupils round, equal, reactive to light CN 3, 4, 6 - Eyes midline, no visual tracking CN 5 - corneal reflexes present bilaterally CN 7 - no facial asymmetry CN 8 - unable to assess due to altered mental status CN 9, 10 - CHERYL due to AMS CN 11 - CHERYL due to AMS CN 12 - CHERYL due to AMS Sensory: responds to noxious stimuli Coordination: CHERYL due to AMS Gait: CHERYL due to AMS Muscle Tone: normal Muscle exam: Moves left arm and leg slightly to noxious stim. No movement on right Reflexes: Plantars downgoing on left, upgoing on R Personal Review and Interpretation of New Neuroimaging: I have reviewed Radiologic Studies and noted significant findings as follows: MRI brain 05/10/2024: IMPRESSION Multiple small acute infarcts in the left cerebral hemisphere, the largest in the parietal lobe. These are in the middle anterior cerebral artery distribution. Small petechial hemorrhage in the left postcentral gyrus. I have reviewed the following Diagnostic Tests and noted significant findings as follows: TTE w/o bubble study 05/09/24: EF 55% Interpretation Summary The primary indication after review was deemed appropriate and the examination was performed. The qualitative LV ejection fraction is 55-59% (normal). No LV segmental wall motion abnormalities. The left ventricular diastolic function is mildly abnormal (grade I). The aortic root is mildly enlarged. Trace bubbles visualized in the LV s/p valsalva consistent with Positive Bubble study 2/2 small PFO. LABS: Labs reviewed as indicated below: LDL: 124 A1C: 7.1 IMPRESSION: 84-year-old male with PMHx as above, presenting as a transfer from [facility] for suspected R M2 occlusion. He initially presented to [facility] with R weakness (out of proportion to his prior L MCA stroke), was given TNK at around 1200 on the , noted to have a left M3 on CTA. His symptoms worsened, repeat CTA showed left M2 occlusion, so he was transferred [place] [facility] [place] and [place]. CTP showed slowed perfusion in the left hemisphere. DSA was performed and no LVO was found, but LICA stent was placed. Patient was placed on heparin drip and then transitioned to DAPT. Overnight he was agitated and confused, required Precedex. LTM EEG showed slowing but no epileptiform activity. He has been calm this morning as the Precedex weans off. RECOMMENDATIONS/PLAN: - MRI brain completed - TTE showing small PFO, unlikely contributory - LDL 124, A1C 7.1 - S/p LICA stenting, DAPT per neurosurgery - Lipitor 40 mg - Telemetry/Zio patch on DC - LTM EEG shows only slowing, can discontinue after 12 hours monitoring - Okay to come to Neurology floors once pressures stable after stenting and off Precedex/other infusions - PT/OT/Speech once awake - If mental status does not improve, further workup for metabolic causes of AMS Stroke Checklist: DVT Prophylaxis: receiving chemical and mechanical Antithrombotic Therapy: receiving antiplatelet or anticoagulation Atrial Fibrillation or Flutter: no Statin: receiving - high intensity Stroke Education: could not be provided due to: patient has altered mental status Rehab Therapy Plan: O.T., P.T., and Speech Patient Has Decision Making Capacity: no, reason: AMS Code Status: No Code The patient was examined and was discussed with Dr. Mack. Cosigned by Paul Mack MD at 05/11/2024 5:25 PM EST Associated attestation - Paul Mack MD - 05/11/2024 5:25 PM EST I saw and evaluated the patient 05/10. I have reviewed the resident/fellow physician note and agree. * Tricia Fisher MD - 05/10/2024 6:42 AM EST CCM - PROGRESS NOTE [facility] [address] Name: Fabien Little Jr. [place] [facility] A438/A Date: 05/10/2024 Time: 6:42 AM PATIENT DESCRIPTION: 84yoM with PMH of HTN, CKD3, GERD, who presents as a transfer from [facility] for further management of LMCA stroke and direct admit to NS OR . Patient was found to have left M2 occlusion for which patient received TNK at 12:57 p.m.05/09. Patient found to have dense right hemiparesis as well as expressive aphasia. On DSA patient noted to have recanalized left M2 however left carotid stenosis was noted for which patient underwent stenting. Patient was subsequently started on heparin infusion Interval History : Overnight patient was very agitated following which patient was started on Precedex infusion. Patient on my evaluation was sedated on Precedex. Currently patient is able to protect his airway, on 2 Loxygen satting more than 90%. Review of system limited due to patient's mental status CONSTITUTIONAL DATA: BP: 149 mmHg/77 mmHg (05/10/24619) Pulse: 70 (05/10/24 06) Resp: 26 (05/10/24619) Temp: 36.39 C (05/10/24 0400) Temp Summary: Temp Min: 36.1 C (97 F) Max: 37.7 C (99.9 F) SpO2: 93 % (05/10/24619) O2 flow rate: 6 L/MIN (05/10/24 0510) Supplemental O2 Delivery: Nasal Cannula (05/10/24 0510) Vent Settings: O2 %: 28 % (05/09/24 1900) PHYSICAL EXAM: General: Patient is sedated on 2 L oxygen HEENT: atraumatic, normocephalic, MMM, EOMI, PERRLA Neck: supple, no masses Chest: no use of accessory muscles, clear to auscultation, no wheezes, rales, or rhonchi Cardiac: RRR, no murmurs, rubs, or gallops auscultated Abdomen: soft active bowel sounds, no CVA tenderness, no organomegaly Extremities: no LE edema; dorsalis pedis and posterior tibial pulses 2+ and equal b/l Skin: warm, dry, and intact. No cyanosis, ecchymosis, pallor, or jaundice Neuro: Full neurological examination could not be done due to patient's sedation Psych: Sedated LABORATORY VALUES: reviewed RADIOGRAPHIC STUDIES: reviewed Principal Problem: Acute ischemic left MCA stroke (HCC) (POA: Yes) Active Problems: HTN, goal below 140/90 (POA: Yes) Gastroesophageal reflux disease without esophagitis (POA: Yes) Type 2 diabetes mellitus with stage 3a chronic kidney disease, without long-term current use of insulin (HCC) (POA: Yes) Hypertensive kidney disease with stage 3a chronic kidney disease (HCC) (POA: Yes) Dyslipidemia, goal LDL below 70 (POA: Yes) Stroke with cerebral ischemia (HCC) (POA: Unknown) Left carotid stenosis (POA: Unknown) Right hemiparesis (HCC) (POA: Unknown) Mixed aphasia (POA: Unknown) POA = Present On Admission SYSTEM BASED PLAN: Neuro Left MCA stroke M2 occlusion Status post DCA: Left internal carotid stenosis status post stenting Right hemiparesis with aphasia -Status post TPA 12:57 pm, 05/08 -History of alcohol use(1-2 drinks daily): No signs of withdrawal so far -Systolic blood pressure goal less than 160 -Repeat CT head was negative for head bleed. Patient did have moderate size acute left MCA territory infarct -MRI in process -TTE ordered -Continue aspirin 81 milligram daily -Continue atorvastatin 40 milligram daily -Continue Plavix 75 milligram day -Spot EEG negative for seizures -heparin stopped as per Neurosurgery -Patient currently on low-dose Precedex for agitation Respiratory -on 2 L oxygen -Saturating more than 90% -Respiratory driven protocol -there was concern for upper airway bleeding status post extubation in OR, patient was evaluated byENT will there was no any evidence of bleed Cardiovascular History of hypertension -TTE pending -target systolic blood pressure less than 160. P.r.n. labetalol and hydralazine order GI/hepatobiliary History of GERD Anderson's esophagus -NPO pending dysphagia screen -Swallow evaluation pending -SHIRT [employer]URNER omeprazole Renal/electrolyte Acute kidney injury on stage III CKD>> likely prerenal -Baseline creatinine 1.3-1.6 -current creatinine 2.0 -Continue to monitor kidney function test -was start patient on isolate infusion Endocrine History of glt-wznkqhn-prkkxwlov type 2 diabetes mellitus -Continue sliding scale insulin Hematology -Continue heparin infusion Line Peripheral IV access x2 NG tube Dominguez catheter Patient was discussed with Dr. Dawson Cosigned by Sonali Dawson MD at 05/10/2024 3:03 PM EST Associated attestation - Sonali Dawson MD - 05/10/2024 3:03 PM EST Attending Attestation: I have discussed the patient's management with the medical trainee and agree with the note. Please refer to the documented findings and plan of care. The patient's bedside service today consisted of an evaluation. I was present and confirmed the findings of the history and exam. There is a high probability of sudden clinically significant or life-threatening deterioration in the patient's condition that requires the highest level of physician preparedness to intervene urgently. High complexity decision-making to assess manipulate and support vital system to treat single or multiple vital organ system failure and/or prevent further life- threatening deterioration of the patient's condition is required. The following problems were reviewed and addressed during my assessment and evaluation. Principal Problem: Acute ischemic left MCA stroke (HCC) (POA: Yes) Active Problems: HTN, goal below 140/90 (POA: Yes) Gastroesophageal reflux disease without esophagitis (POA: Yes) Type 2 diabetes mellitus with stage 3a chronic kidney disease, without long-term current use of insulin (HCC) (POA: Yes) Hypertensive kidney disease with stage 3a chronic kidney disease (HCC) (POA: Yes) Dyslipidemia, goal LDL below 70 (POA: Yes) Stroke with cerebral ischemia (HCC) (POA: Unknown) Left carotid stenosis (POA: Unknown) Right hemiparesis (HCC) (POA: Unknown) Mixed aphasia (POA: Unknown) POA = Present On Admission All pertinent history, physical exam findings, labs, imaging and medications were reviewed and applied. Radial Arm Saw Operator input was evaluated. DC heparin continue dapt. Wean precedex. FAce to face time 61minutes Sonali Dawson MD,FACS,FCCM,FCCP Associate Critical Care and General Surgery * Callie Guillen RN - 05/09/2024 4:00 PM EST Nursing Critical Care Response Note [facility] [address] Name: Fabien Little Date: 05/09/2024 Time: 4:32 PM Event [place] [facility] Area: [facility] In the role of the Critical Response Nurse I was involved in the care of this patient. Method of notification to the critical care response nurse: Unit call/request for assistance Reason for notification or follow up: NG tube placement Observations/Interventions/Assessment: Received TT via secure message asking to place NGT after multiple failed attempts. Attempted to place #16 fr NGT in both nares and resistance met both times, unable to pass and coiling in mouth. Pt noted to have blood in the back of his throat and palate. Dr. Guerin made aware and also attempted a#14 fr NGT in both nares and also met resistance, coiling in mouth and unable to pass. NGT placement aborted. CCM will reach out to ENT. Outcome/Plan CRN can be contacted via Baring Text: [facility] Critical Response Nurse. * Sathya Farah PA-C - 05/09/2024 10:28 AM EST NEUROSURGERY POST OP NOTE Fabien Little Jr. is a 84 year old yo male who is hospital day # 1, POD # 0 s/p diagnostic cervico-cerebral angiogram and LICA stent placement with Crispin Nelson MD. The patient tolerated the procedure well and there were no complications. The patient had an episode of emesis before the start of the procedure. BP 126/70 | Pulse 71 | Temp 36.5 C (97.7 F) (Tympanic) | Resp 17 | SpO2 94% Pt lying flat in bed; NAD Pleasant and cooperative with exam CN ii-xii grossly intact Corie to command Right groin dressed without signs of hematoma RLE distal pulses 2+ at posterior tibialis and dorsal pedis A/P: 84 year old yo male s/p above Post angio orders as written HOB flat for 4 hours Keep RLE straight for 4 hours Neurovascular checks as ordered Call NSurg for bleeding or hematoma Please start a Heparin gtt, neurology nomogram, no bolus Patient s/p ASA [address] head in 6 hours (ordered) Will decide on Plavix after CT head is completed SBP < 160 for now Watch for signs of aspiration Dispo: NSICU D/w Crispin Nelson MD documented in this encounter H&P Notes * John Paul Guerin DO - 05/09/2024 12:52 PM EST HISTORY & PHYSICAL EXAMINATION - Critical Care Medicine [address] [address] Name: Fabien Little Jr. [place] [facility] A438/A Date: 05/09/2024 Time: 12:52 PM Date of Admission: 05/09/2024 PRESENTING PROBLEM: Right-sided weakness HPI: Fabien Little Jr. is an 84yoM with PMH of HTN, CKD3, GERD, [facility] and direct admit to [facility] OR. Patient with significant expressive/receptive aphasia, thus unable to obtain subjective data, thus history obtained from chartreview, family, and director of operations support. Patient [facility] yesterday around noon via EMS. Patient reported had acute onset right-sided weakness when he sat down to eat complicated by inability to walk. Symptoms started reportedly at 11:20 a.m. thus presented as stroke alert to ED, and initial head CT reportedly negative, and subsequent CTA revealed attenuated M3 branch of left MCA versus severe distal stenosis, and moderate stenosis and left P1 segment. CTA neck with severe stenosis of left internal carotid artery as well as the origin of right vertebral artery. TNK was administered at approximately 12:30 p.m. on 05/08/2024. Per ED staff patient has subsequently developed expressive aphasia with word-finding difficulty. Stat repeat CT head negative for intracranial hemorrhage and findings consistent with previous exam. Patient transferred to [facility] ED where CT perfusion study was unremarkable, thus patient taken directly to OR with Neurosurgery. Angiogram with no evidence of intra cranial vessel occlusion, but notable for severe flow- limiting stenosis of left carotid artery bifurcation, thus balloon angioplasty and carotid stent placement was performed with resultant recanalization of the leftcarotid artery. Patient is seen and examined after arrival to [facility]. Patient repeating same nonsensical words and not following commands. His brother Mikey, and sister Marcia or updated over the phone. They report thathe lives in a senior assisted facility. Marcia reports that he drinks 1-2 alcoholic beverages nightly with no history of withdrawal. They both plan to visit tomorrow. Marcia is flying in from [place] in her flight arrives at 9:00 a.m.. All questions answered to apparent satisfaction. 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) 02/19/2010 PAST SURGICAL HISTORY: Past Surgical History: Procedure Laterality Date COLONOSCOPY, DIAGNOSTIC (RECTUM) 02/06/2010 hyperplastic tissue repeat 5 yrs COLONOSCOPY, DIAGNOSTIC (RECTUM) 06/16/2018 diverticulosis/COLONOSCOPY FLEXIBLE PROXIMAL DIAGNOSTIC performed by John Paul Jameson MD at ENDOSCOPY [facility] EGD, FLEXIBLE, DIAGNOSTIC 04/09/2018 Barretts, hiatal hernia, repeat 2 yrs/[facility] EGD, FLEXIBLE, DIAGNOSTIC 10/25/2020 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, small HH / evidence of inflammation, long segment of Anderson's Esophigitis / 2 year recall / ESOPHAGOGASTRODUODENOSCOPY (EGD), FLEXIBLE, TRANSORAL, DIAGNOSTIC performed by Marian Conley DO at ENDOSCOPY [facility] VASECTOMY 1972 FAMILY HISTORY: non-contributory SOCIAL HISTORY: Social History Tobacco Use Smoking status: Former Types: Pipe Passive exposure: Past Smokeless tobacco: Never Tobacco comments: used to smoke pipe in 1959' Vaping Use Vaping status: Never Used Substance Use Topics Alcohol use: Yes Comment: occasional of variety Drug use: No PRIOR TO ADMISSION MEDS: Prior to Admission medications Medication Sig Last Dose Discont. Empagliflozin 25 MG Oral Tablet (Jardiance) Take 1 Tablet by mouth in the morning. Ketoconazole 2 % External Shampoo (Nizoral) Lather into scalp in the shower, leave in for 3 minutes, then rinse. Do this three times per week Omeprazole 40 MG Oral Capsule Delayed Release (PriLOSEC) TAKE ONE CAPSULE BY MOUTH IN THE MORNING. Allopurinol 100 MG Oral Tablet (Zyloprim) Take 1 Tablet by mouth in the morning. hydrALAZINE HCl 10 MG Oral Tablet (Apresoline) Take 1 Tablet by mouth in the morning and 1 Tablet in the evening. Latanoprost 0.005 % Ophthalmic Solution (Xalatan) Instill 1 Drop into both eyes once daily every evening as directed OneTouch Ultra In Vitro Strip (Glucose Blood) TEST 1 TO 2 TIMES DAILY. Sildenafil Citrate 20 MG Oral Tablet (Revatio) TAKE ONE TABLET BY MOUTH 1-4 HOURS BEFORE INTERCOURSE. NO MORE THAN 1 DOSE IN 24 HOURS. Vitamin D-400 10 MCG (400 UNIT) Oral Tablet (cholecalciferol (VIT D3)) Take 2 Tablets by mouth daily. OneTouch UltraSoft Lancets Use to test sugars once daily Ferrous Sulfate 325 (65 Fe) MG Oral Tablet (Feosol) Take 1 Tablet by mouth every afternoon. aspirin 81 MG chewable tablet Take 1 Tablet by mouth in the morning. with food.. GLUCOSAMINE CHONDR 1500 COMPLX PO CAPS Take 1 Capsule by mouth in the morning and 1 Capsule before bedtime. Pt takes tablets. B-12 1000 MCG PO TBCR Take by mouth 1 Tablet daily . FISH OIL 1000 MG PO CAPS Take 1 Capsule by mouth in the morning. [employer] SYSTEM W/DEVICE KIT Use up to four times a day as directed ALLERGIES: Amoxicillin ROS: Unavailable: Patient unable to answer ROS questions appropriately secondary to poor mental status. PHYSICAL EXAMINATION: Most Recent Vital Signs: BP: 168 mmHg/95 mmHg (05/09/24 1200) Pulse: 73 (05/09/24 1200) Resp: 22 (05/09/24 1200) Temp: 36.22 C (05/09/24 1200) Temp Summary: Temp Min: 36.1 C (97 F) Max: 36.5 C (97.7 F) SpO2: 96 % (05/09/24 1200) O2 flow rate: Supplemental O2 Delivery: Room Air, None (05/09/241199) Vent Settings: Physical Examination Physical Exam Vitals reviewed. Constitutional: General: He is not in acute distress. Appearance: Normal appearance. He is not ill-appearing or toxic-appearing. HENT: Head: Normocephalic and atraumatic. Right Ear: External ear normal. Left Ear: External ear normal. Nose: Nose normal. Eyes: General: No scleral icterus. Extraocular Movements: Extraocular movements intact. Conjunctiva/sclera: Conjunctivae normal. Pupils: Pupils are equal, round, and reactive to light. Cardiovascular: Rate and Rhythm: Normal rate and regular rhythm. Heart sounds: Murmur heard. Pulmonary: Effort: Pulmonary effort is normal. No respiratory distress. Breath sounds: Normal breath sounds. No stridor. No wheezing, rhonchi or rales. Abdominal: General: Bowel sounds are normal. Palpations: Abdomen is soft. Tenderness: There is no abdominal tenderness. There is no guarding or rebound. Musculoskeletal: Right lower leg: No edema. Left lower leg: No edema. Skin: General: Skin is warm. Capillary Refill: Capillary refill takes less than 2 seconds. Neurological: General: No focal deficit present. Mental Status: He is disoriented and confused. GCS: GCS eye subscore is 4. GCS verbal subscore is 3. GCS motor subscore is 5. Motor: Weakness present. Comments: Opens eyes spontaneously, repeat garbled speech, does not follow commands, flaccid right upper and lower extremities, right facial droop Psychiatric: Mood and Affect: Mood normal. Behavior: Behavior normal. Thought Content: Thought content normal. Judgment: Judgment normal. UOP = Urine Output Urine Output Source: IUBC (dominguez) (05/09/24 1100) Bladder Scan: 150 (05/09/24 1100) Last BM = Last Bowel Movement: (SHIRT TURNER) (05/09/24 1100) Laboratory Values: 05/09/24 07:54 Hemoglobin A1C 7.1 (H) 07/21/23 10:54 TSH 1.82 11/19/23 11:06 05/09/24 07:54 Triglycerides 121 107 Cholesterol 169 196 Non-HDL Cholesterol 118 145 HDL Cholesterol 51 51 LDL Cholesterol 94 124 No results in the last 7 days - inpatent use only Lab results within last 7 days (see chart for full results) Units 05/09/24 1027 05/09/24 0754 HGB g/dL 15.6 16.0 HCT % 48.1 48.6* WBC K/uL 9.60 8.23 PLT K/uL 187 186 Neutrophils % % -- 83.4* Monocytes % % -- 6.1 Eosinophils % % -- 0.1 Lab results within last 7 days (see chart for full results) Units 05/09/24 0754 SODIUM mmol/L 132* POTASSIUM mmol/L 4.3 CHLORIDE mmol/L 98 CO2 mmol/L 21* BUN mg/dL 22* CREATININE mg/dL 1.4* Lab results within last 7 days (see chart for full results) Units 05/09/24 0754 Protein g/dL 7.1 Bilirubin, Total mg/dL 0.8 Alkaline Phosphatase U/L 96 AST U/L 15 ALT U/L 10 Radiographic & Other Studies: reviewed CT HEAD/BRAIN WO CONTRAST Result Date: 05/09/2024 IMPRESSION: Suspected subtle left MCA territory infarct with left-sided cerebral edema. No discreteparenchymal hematoma. CT HEAD PERFUSION Result Date: 05/09/2024 IMPRESSION 1. No acute intracranial abnormality detected by CT, including no evidence of cerebral hemorrhage. 2. Perfusion imaging results as above. Above findings were added to our urgent results communication system on 408:26 CT HEAD/BRAIN WO CONTRAST Result Date: 05/09/2024 IMPRESSION 1. No acute intracranial abnormality detected by CT, including no evidence of cerebral hemorrhage. 2. Perfusion imaging results as above. Above findings were added to our urgent results communication system on :26 XR CHEST 1 VIEW Result Date: 05/09/2024 IMPRESSION Hypoventilatory changes. No specific consolidations. Current Facility-Administered Medications Medication Dose Route Frequency Provider atorvaSTATin (Lipitor) tab 40 mg 40 mg Oral Q 1700 John Paul Guerin DO chlorHEXIDINE (Periogard) 0.12 % oral rinse 15 mL 15 mL Oral mucosal membrane BID (0800,1999) John Paul Guerin DO clopidogrel (pLAVix) tab 600 mg 600 mg Oral Once John Paul Guerin DO [START ON 05/10/2024] clopidogrel (pLAVix) tab 75 mg 75 mg Oral Daily(AM) John Paul Guerin DO dexmedeTOMIDine (Precedex) 400 mcg in 100 mL infusion 0-1.5 mcg/kg/hr Intravenous Titrate John Paul Guerin DO hEParin 25,000 units in 250 mL (Xa-Neurologic) infusion 0-30 Units/kg/hr (Adjusted) Intravenous Titrate John Paul Guerin DO hydrALAZINE (Apresoline) inj 10 mg 10 mg Intravenous Q4H PRN John Paul Guerin DO labetalol (Trandate) inj 20 mg 20 mg Intravenous Q1H PRN John Paul Guerin DO niCARdipine (CARDENE) 20 mg in 200 mL saline infusion 5 mg/hr Intravenous Continuous Mel Walls DO Oral Hygiene: Mouth Swab with dentifrice Oral Q4H Limited (00;04;12;16) John Paul Guerin DO CRITICAL CARE SYSTEM REVIEW & ASSESSMENT/PLAN: Principal Problem: Acute ischemic left MCA stroke (HCC) (POA: Yes) Active Problems: HTN, goal below 140/90 (POA: Yes) Gastroesophageal reflux disease without esophagitis (POA: Yes) Type 2 diabetes mellitus with stage 3a chronic kidney disease, without long-term current use of insulin (HCC) (POA: Yes) Hypertensive kidney disease with stage 3a chronic kidney disease (HCC) (POA: Yes) Dyslipidemia, goal LDL below 70 (POA: Yes) Stroke with cerebral ischemia (HCC) (POA: Unknown) Resolved Problems: * No resolved hospital problems. * POA = Present On Admission NEURO Left MCA stroke Critical left internal carotid artery stenosis - Neurology, Neurosurgery consulted, appreciate assistance - Etiology of stroke is atheroembolic - Initial CT head with left MCA stroke - Patient received tPA on 05/08/24 at 1230pm - Blood pressure goals: SBP < 160; MAP > 65 - Maintain eunatremia, euvolemia, euglycemia, normothermia - Repeat CT head 24 hours perfusion study unrevealing - MRI brain without contrast (stroke protocol): ordered, pending (MRI questionnaire completed) - TTE to evaluate for cardioembolic source: ordered, pending - Post-stroke labs: -Troponin: Unremarkable -Lipid panel: LDL 124 -Hemoglobin A1C: 7.1 -TSH with reflex T4: 1.82 - Start high-intensity statin with atorvastatin 40 mg daily - Start Aspirin 81 mg daily 24 hours post tPA - load with Plavix and initiate a 75 mg daily - obtain spot EEG - neurologic heparin nomogram Sedation - will start low-dose Precedex infusion for agitation - consider low-dose Ativan - CAM ICU protocol with RASS 0 EtOH use - reportedly drinks 1-2 alcoholic beverages nightly - low threshold to initiate CIWA/minds protocol, but avoid use of phenobarbital RESP No acute issues - reportedly had aspiration event after anesthesia - high-risk for airway compromise with significant stroke and neurologic deficits CV No acute issues History hypertension - Patient is hemodynamically stable at present - Admission EKG with normal sinus rhythm - As above, will check TTE and markers of cardiac ischemia - hold SHIRT TURNER hydralazine 10 mg twice daily - as above, maintain SBP less than 160 with p.r.n. labetalol, hydralazine GI/HEPATOBILIARY No acute issues History GERD, Anderson's esophagus - Strict NPO pending nursing dysphagia screening - NPO except meds pending formal speech evaluation - Last BM = Last Bowel Movement: (SHIRT TURNER) (05/09/24 1100) - Bowel regimen: None - Stress ulcer ppx: PPI therapy for other indication RENAL/FEN No acute issues History CKD 3 - baseline SCr 1.3-1.6 - strict intake/output q1H - maintain serum K>4, P>3, Mg>2 - Monitor electrolytes at least daily - Renal dosing and medication considerations adjusted for glomerular filtration rate - Daily weights INFECTIOUS DISEASES No acute issues ENDOCRINE No acute issues History [id number] type 2 diabetes - Blood Glucose Monitoring (BGM) Goal: 140-180 - Glycemic Control: SSI 2:50 >150 Most recent: Last 24 hours: No data recorded Last 36 hours: No data recorded Last 48 hours: No data recorded HEMATOLOGIC No acute issues - neurologic heparin nomogram as above her stent placement - DVT ppx: SCBs & TEDS and heparin gtt MSK/DERM No acute issues - PT/OT consulted, appreciate recommendations - Wound care: n/a L/D/As LINES ALL Duration Peripheral Line Left;Posterior Arm 18 Gauge -- days Peripheral Line Left <1 day Urethral Catheter Coude <1 day P.T./O.T./MOBILITY: Consulted GLOBAL ISSUES: Analgesia: no pain Sedation: N/A Delirium/Confusion Assessment Method for ICU (CAM-ICU): CAM-ICU negative HOB Elevation: greater than 30 degress Nutrition: NPO Glycemic Control: controlled - protocol Disposition: keep in ICU Patient's decisional capacity: does not have capacity to make decisions Communication with Patient/Family: Brief Family Communication. Patient/Family participation: Child/Children. Topics of meeting: Patient's diagnosis/current condition. Goals of Care: stabilize hemodynamic status and improve mental status to baseline Patient was seen, was examined, and was discussed with attending physician, DO John Paul Fischer DO PCCM Fellow Cosigned by Iman Ramos DO at 05/09/2024 2:39 PM EST Associated attestation - Iman Ramos DO - 05/09/2024 2:39 PM EST I saw and evaluated the patient today. I have reviewed the resident/fellow physician note and agree. Patient is an 84 yo with history of HTN, and CKD stage 3A presenting from [facility] for evaluation of R hemiparesis and expressive aphasia concerning for acute infarct found on CTA there to have an L M2 occlusion. He received TNK at 12:57PM with initial improvement however noted around midnight to develop worsening hemiparesis and more profound aphasia. He was transferred for thrombectomy. On DSA today, patient appeared to have recanalized L M2 however with significant stenosis of the L carotid now s/p stenting. Intra-op patient received ASA load, now on heparin gtt neuro nomogram. Of note, manisha-op course was c/b significant vomiting with aspiration. Able to be extubated prior tocoming to NSICU without difficulty, now on RA and saturating well. On exam, patient has dense R hemiparesis, significant expressive aphasia, unclear if receptive component. NIHSS immediately following OR of 23, later observed to be 16. Improved after receiving ativan. Repeat CTH without evidence oflarge infarct burden. - Cont on heparin neuro nomogrom - s/p ASA load, will load with Plavix 600mg - Cont on dapt starting 05/10 and plan to d/c heparin at that time - Cont close neurochecks, q1h - Aspiration event/vomiting prior to intubation, no further aspiration events noted. Saturating well on RA. - Repeat MRI brain wo contrast pending, obtained at [facility] as well, unable to view images but did nothave large stroke burden per report. - TTE pending - Unclear alcohol history, however some concern for potential withdrawal. Will obtain LTM EEG. If ongoing agitation continues, can place on MINDS protocol with ativan. I have provided critical care diagnostic services for neurologic failure and therapeutic services with neurological monitoring and treatment, frequent evaluation and titration of therapies for this patient on the date referenced above. Time devoted to patient care services described in this note equal: 50 minutes total critical care time exclusive of time spent performing procedures or time spentby another provider or resident. documented in this encounter Procedure Notes * Svitlana Ventura MD - 05/11/2024 10:14 AM ESTAssociated Order(s): EKG REASON FOR STUDY: Just checking QTc;Electrolyte abnormality CONCLUSIONS: Normal sinus rhythm Nonspecific T wave abnormality Abnormal ECG When compared with ECG of 09-May-2024 11:27, Nonspecific T wave abnormality now evident in Lateral leads Ventricular Rate: 64 Atrial Rate: 64 MS Interval: 176 QRS Duration: 100 QT/QTc: 432/445 ms P-R-T [place]: 68 : 23 : 65 degrees * Nakul Mccullough DO Saul - 05/11/2024 7:43 AM EST [facility] [place] [facility] [facility] 4th Floor [address] [facility] [address] Name: Fabien Little Jr. Age: [age] year old Study Start Date/Time: 05/10/2024, 399 Study End Date/Time: 05/11/2024, 920 Location: [place] [address] Referring Physician: Rosalba Clinical Summary: Fabien Little Jr. is a/an 84 year old male undergoing EEG evaluation for: Other differentials: paroxysmal behavior change Neuroactive Medications: Precedex Technical Summary: This digitally acquired electroencephalogram was performed using 21 scalp electrodes in the international 10/20 system placement, with additional scalp, precordial, and other surface electrodes used for electrical referencing and artifact detection. Video monitoring was utilized and reviewed periodically by the physician for electroclinical correlation. Physician access to datawas available throughout the recording. Activation Procedures: Photic stimulation resulted in: no evidence of change from baseline Background: Abnormal. Posterior dominant rhythm: absent. Amplitude: 20-70 (medium). Symmetry: Symmetric Organization: Mildly disorganized Reactivity: Present and reactive to external stimuli Variability: Present with distinct states of arousal Continuity: Continuous. Generalized slowing: Mild to moderate (Theta predominant). EKG: Normal sinus rhythm Sleep: Stage 2 sleep was not achieved for this study. Interictal Findings: No evidence of epileptiform abnormalities or focal asymmetries Clinical and Electrographic Events: No clinical or electrographic events were recorded. Summary of Findings: Abnormal: This EEG is abnormal due to the presence of: Moderate diffuse slowing, improved from previous. No seizures noted. Diagnostic Significance: Global AMUSEMENT CENTRE MANAGER dysfunction Clinical Comments: Generalized slowing - The above-described findings of diffuse slowing are etiologically non-specific, and similar findings have been reported in cases of toxic, metabolic, hypoxic ischemic, infectious, medication, sleep deprivation, postictal, and other causes of diffuse and multifocal encephalopathy. Clinical correlation of this differential diagnosis is suggested. * Nakul Mccullough DO - 05/10/2024 6:48 AM EST Electroencephalogram Report [place] [facility] [place], [facility] 4th Floor [address] [facility] [address] Name: Fabien Little Jr. Age: [age] year old Study Start Date/Time: 05/09/2024, 2105 Study End Date/Time: 05/10/2024, 0 Location: [place] [address]/[place] Referring Physician: Rosalba Clinical Summary: Fabien Little Jr. is a/an 84 year old male undergoing EEG evaluation for: Other differentials: paroxysmal behavior change Neuroactive Medications: Precedex Technical Summary: This digitally acquired electroencephalogram was performed using 21 scalp electrodes in the international 10/20 system placement, with additional scalp, precordial, and other surface electrodes used for electrical referencing and artifact detection. Video monitoring was utilized and reviewed periodically by the physician for electroclinical correlation. Physician access to datawas available throughout the recording. Activation Procedures: Photic stimulation resulted in: no evidence of change from baseline Background: Abnormal. Posterior dominant rhythm: absent. Amplitude: 20-70 (medium). Symmetry: Symmetric Organization: Absent Reactivity: Present and reactive to external stimuli Variability: Unclear Continuity: Continuous. Generalized slowing: Moderate to severe (Delta predominant). EKG: Normal sinus rhythm Sleep: Stage 2 sleep was not achieved for this study. Interictal Findings: No evidence of epileptiform abnormalities or focal asymmetries Clinical and Electrographic Events: No clinical or electrographic events were recorded. Summary of Findings: Abnormal: This EEG is abnormal due to the presence of: Moderate to severe diffuse slowing. No seizures noted. Diagnostic Significance: Global AMUSEMENT CENTRE MANAGER dysfunction Clinical Comments: Generalized slowing - The above-described findings of diffuse slowing are etiologically non-specific, and similar findings have been reported in cases of toxic, metabolic, hypoxic ischemic, infectious, medication, sleep deprivation, postictal, and other causes of diffuse and multifocal encephalopathy. Clinical correlation of this differential diagnosis is suggested. * Daniel Collado MD - 05/09/2024 11:27 AM ESTAssociated Order(s): EKG REASON FOR STUDY: Nausea CONCLUSIONS: Normal sinus rhythm Prolonged QT interval or tu fusion, consider myocardial disease, electrolyte imbalance, or drug effects Abnormal ECG When compared with ECG of 19-Sep-2023 08:34, Sinus rhythm has replaced Junctional rhythm Nonspecific T wave abnormality no longer evident in Inferior leads QT has lengthened Ventricular Rate: 76 Atrial Rate: 76 MS Interval: 188 QRS Duration: 100 QT/QTc: 432/486 ms P-R-T [place]: 55 : 54 : 71 degrees documented in this encounter Consult Notes * Nieves Bentley, DO - 05/11/2024 3:43 PM ESTAssociated Order(s): VASCULAR SURGERY CONSULT IP Consult - Vascular Surgery [facility] [place] [id number] Name: Fabien Little Jr. [place] [facility] [id number]A Date: 05/11/2024 Time: 3:43 PM Date of Service: 05/11/2024 3:43 PM Requesting Service/Physician: Critical Care Blue Chief Complaint: Neuro Deficit/Stroke/TIA Reason for consult: "Right common femoral/external iliac AVF after DSA 05/09" HPI: Fabien Little Jr. is a 84 year old male who is admitted to NSICU after he had R hemiparesis andexpressive aphasia concerning for acute infarct found on CTA at OSH and was found to have an L M2 occlusion. Neurosurgery performed cerebral angiogram and Left carotid artery bifurcation balloon angioplasty and stenting on 05/09 via right groin. Afternoon of 05/11, patient was noted to have had pulsatile mass of right groin concerning for possible right groin hematoma. Pressure was held by NSICU team truck driver and hematoma decreased in size. NSICU ordered arterial duplex showed possible AV fistulaof right groin and residual 2.4cm by 1.3cm hematoma with NO FLOW. Vascular surgery consulted for evaluation and management of above findings. Unable to obtain ROS due to patient's aphasia. Prior to Admission medications Medication Sig Last Dose Discont. Empagliflozin 25 MG Oral Tablet (Jardiance) Take 1 Tablet by mouth in the morning. Ketoconazole 2 % External Shampoo (Nizoral) Lather into scalp in the shower, leave in for 3 minutes, then rinse. Do this three times per week Omeprazole 40 MG Oral Capsule Delayed Release (PriLOSEC) TAKE ONE CAPSULE BY MOUTH IN THE MORNING. Allopurinol 100 MG Oral Tablet (Zyloprim) Take 1 Tablet by mouth in the morning. hydrALAZINE HCl 10 MG Oral Tablet (Apresoline) Take 1 Tablet by mouth in the morning and 1 Tablet in the evening. Latanoprost 0.005 % Ophthalmic Solution (Xalatan) Instill 1 Drop into both eyes once daily every evening as directed [employer] Ultra In Vitro Strip (Glucose Blood) TEST 1 TO 2 TIMES DAILY. Sildenafil Citrate 20 MG Oral Tablet (Revatio) TAKE ONE TABLET BY MOUTH 1-4 HOURS BEFORE INTERCOURSE. NO MORE THAN 1 DOSE IN 24 HOURS. Vitamin D-400 10 MCG (400 UNIT) Oral Tablet (cholecalciferol (VIT D3)) Take 2 Tablets by mouth daily. [employer] UltraSoft Lancets Use to test sugars once daily Ferrous Sulfate 325 (65 Fe) MG Oral Tablet (Feosol) Take 1 Tablet by mouth every afternoon. aspirin 81 MG chewable tablet Take 1 Tablet by mouth in the morning. with food.. GLUCOSAMINE CHONDR 1500 COMPLX PO CAPS Take 1 Capsule by mouth in the morning and 1 Capsule before bedtime. Pt takes tablets. B-12 1000 MCG PO TBCR Take by mouth 1 Tablet daily . FISH OIL 1000 MG PO CAPS Take 1 Capsule by mouth in the morning. 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 Hypertensive kidney disease with stage 3a chronic kidney disease (HCC) CHARLIE inhibitor intolerance Drug-induced hyperkalemia Hyponatremia Stress and adjustment reaction Gout of both feet MCI (mild cognitive impairment) Acute ischemic left MCA stroke (HCC) Dyslipidemia, goal LDL below 70 Stroke with cerebral ischemia (HCC) Left carotid stenosis Right hemiparesis (HCC) Mixed aphasia Gait abnormality Impaired mobility and ADLs 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) 02/19/2010 Past Surgical History: Procedure Laterality Date CAROTID (INTERNAL) ARTERY CATHETHER PLACEMENT Bilateral 05/09/2024 CATHETER PLACEMENT INTERNAL CAROTID ARTERY performed [place] Crispin Nelson [place] [facility] ([place]TERNAL) ARTERY CATHETHER PLACEMENT Bilateral 05/09/2024 CATHETER PLACEMENT EXTERNAL CAROTID ARTERY performed by Crispin Nelson MD [place] [facility] [place]ONOSCOPY, DIAGNOSTIC (RECTUM) 02/06/2010 hyperplastic tissue repeat 5 yrs COLONOSCOPY, DIAGNOSTIC (RECTUM) 06/16/2018 diverticulosis/COLONOSCOPY FLEXIBLE PROXIMAL DIAGNOSTIC performed by John Paul Jameson MD at [facility]COPY [facility] EGD, FLEXIBLE, DIAGNOSTIC 04/09/2018 Barretts, hiatal hernia, repeat 2 yrs/[facility] EGD, FLEXIBLE, DIAGNOSTIC 10/25/2020 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, small HH / evidence of inflammation, long segment of Anderson's Esophigitis / 2 year recall / ESOPHAGOGASTRODUODENOSCOPY (EGD), FLEXIBLE, TRANSORAL, DIAGNOSTIC performed by Marian Conley DO at [facility]COPY [facility] PC PERC ARTERIAL TRANSLUMINAL MECHANICAL THROMBECTOMY/INFUSION THROMBOLYSIS INTRACRANIAL W ANG/FLUOLeft 05/09/2024 PERCUTANEOUS ARTERIAL TRANSLUMINAL MECHANICAL THROMBECTOMY AND/OR INFUSION OF THROMBOLYSIS,INTRACRANIAL,& METHOD INCLUDING DIAGNOSTIC ANGIO performed by Crispin Nelson MD at [facility] VASECTOMY 1972 VERTEBRAL ARTERY CATHETER PLACEMENT Bilateral 05/09/2024 CATHETER PLACEMENT VERTEBRAL ARTERY, performed by Crispin Nelson [place] [facility] Family History: family history includes Heart disease in his brother; Other in his father and mother. Social History: reports that he has quit smoking. His smoking use included pipe. He has been exposed to tobacco smoke. He has never used smokeless tobacco. He reports current alcohol use. He reports that he does not use drugs. COMPLETE REVIEW OF SYSTEMS: All others negative other than those noted in the HPI. GENERAL MULTI-SYSTEM PHYSICAL EXAM: Vital Signs: BP 160/81 | Pulse 80 | Temp 37.5 C (99.5 F) (Tympanic) | Resp 22 | Wt 85.4 kg (188 lb 4.4 oz) |SpO2 95% | BMI 28.84 kg/m | BSA 2.02 m GENERAL: no acute distress NECK: trachea midline RESPIRATORY: respiratory effort normal and no audible wheezing CARDIOVASCULAR: no tachycardia, RRR GASTROINTESTINAL: no tenderness, abdominal aorta not palpable, and soft EYES: conjunctivae normal, eye lids normal, pupils normal, and irises normal NEUROLOGIC: aphasic VASCULAR EXAM: palpable bilateral femoral pulses, palpable right DP/PT LABS: CBC Lab results within last 7 days (see chart for full results) Units 05/11/24 1458 05/11/24 0717 05/10/24 0823 WBC K/uL 13.13* 12.54* 10.38 HGB g/dL 14.4 14.5 15.1 HCT % 43.2 43.5 47.3 PLT K/uL 182 172 168 BMP Lab results within last 7 days (see chart for full results) Units 05/11/24 0717 05/10/24 0823 05/09/24 0754 SODIUM mmol/L 139 135 132* POTASSIUM mmol/L 4.0 4.4 4.3 CHLORIDE mmol/L 103 101 98 CO2 mmol/L 21* 21* 21* BUN mg/dL 37* 31* 22* CREATININE mg/dL 1.9* 2.0* 1.4* GLUCOSE mg/dL 130* 184* 172* Ca, Mg, Phos Lab results within last 7 days (see chart for full results) Units 05/11/24 0717 05/10/24 0823 05/10/24 0335 05/09/24 0754 CALCIUM mg/dL 8.5 8.3* -- 8.9 Calcium, Ionized mmol/L 1.16 -- 1.15 -- Magnesium mg/dL 2.4 -- 2.4 -- Phosphorus mg/dL 3.1 -- 4.0 -- Hepatic Function Panel Lab results within last 7 days (see chart for full results) Units 05/09/24 0754 Bilirubin, Total mg/dL 0.8 Alkaline Phosphatase U/L 96 AST U/L 15 ALT U/L 10 Protein g/dL 7.1 Troponins Lab results within last 7 days (see chart for full results) Units 05/09/24 0754 Troponin T, High Sensitivity ng/L 26* Coags Lab results within last 7 days (see chart for full results) Units 05/11/24 0717 05/10/24 0335 05/09/24 1027 INR 1.3* 1.2 1.3* DIAGNOSTIC STUDIES: VASCULAR LAB RESULTS DATE OF EXAMINATION: 05/11/24 INDICATION: R/O PSEUDOANEURYSM FEMORAL ARTERY DUPLEX EXAMINATION S/P CATHETERIZATION Immediately before proceeding with the vascular lab procedure reported below, the identity of the patient, the correct exam and the correct procedural site were verified. Murdock scale, color flow and spectral doppler were performed for this examination. FINDINGS: Duplex ultrasound of the right groin reveals normal arterial flow in the external iliac artery, common femoral artery and proximal superficial femoral artery segments. There is pulsatile venous flow with a color bruit noted, consistent with possible AV fistula in thevenous outflow from the right entry site region. A hematoma with no flow is seen about the entry site which measures approximately 2.4 cm by 1.3 cm. CONCLUSION: Hematoma noted in the region of recent catheterization with size measurements as noted above. No pseudoaneurysm identified. 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 IMPRESSIONS: Fabien Little Jr. Is a 84 year old M with concern for right groin mass, concerning for possibleAV fistula, s/p cerebral angiogram and left carotid bifurcation angioplasty and stenting on 05/09. Physical exam is not concerning for acute limb ischemia 2/2 to right groin mass. Hematoma is not expansile and decreased in size when compared to outlined area of right groin. Small AV fistulas of this nature typically resolve on their own without surgical intervention. PLAN: - No acute vascular surgical intervention at this time - No need for follow up with vascular surgery Vascular surgery will sign off. Please feel free to contact the vascular surgery first call resident (Pager ID [phone]) with any questions or concerns. This patient was seen and examined at bedside and was discussed with Dr. Nguyen. Nieves Bentley DO Vascular Surgery Resident, PGY2 [facility] [place] 05/11/2024 Cosigned by Porfirio Nguyen MD at 05/11/2024 7:35 PM EST Associated attestation - Porfirio Nguyen MD - 05/11/2024 7:35 PM EST I saw and evaluated the patient today. I have reviewed the resident/fellow physician note and agree. Small AVF after neuro procedure No need for intervention or additional testing * Elizabeth Miguel, [facility]-BENCH WORKER APPRENTICE - 05/11/2024 1:33 PM EST COGNITIVE COMMUNICATION ASSESSMENT - Speech-Language Pathology [address] [address] Name: Fabien Little Jr. [place] [facility] [place]A Date: 05/11/2024 Time: 1:33 PM Patient Status: Inpatient Insurance: Payor: P GOLD / Plan: GHP GOLD PREFERRED ENHANCED MP-DD / Product Type: *No Product type* / Patient Age: [age] year old Referring Physician: Apoorva Admission Date: 05/09/2024 History: Per EPIC chart review the pt is a "84yoM with PMH of HTN, CKD3, GERD, who presents as a transfer from [facility] for further management of L MCA stroke and direct admit [place] [facility] [place]. Patient with significant expressive/receptive aphasia, thus unable to obtain subjective data, thus history obtainedfrom chart review, family, and director of operations support. Patient presented to [facility] yesterday around noon via EMS. Patient reported had acute onset right-sided weakness when he sat down to eat complicated by inability to walk. Symptoms started reportedly at 11:20 a.m. thus presented as stroke alert to ED, and initial head CT reportedly negative, and subsequent CTA revealed attenuated M3 branch of left MCA versus severe distal stenosis, and moderate stenosis and left P1 segment. CTA neck with severe stenosis of left internal carotid artery as well as the origin of right vertebral artery. TNK was administered at approximately 12:30 p.m. on 05/08/2024. Per ED staff patient has subsequently developed expressive aphasia with word-finding difficulty. Stat repeat CT head negative for intracranial hemorrhage and findings consistent with previous exam. Patient transferred to [facility] ED where CT perfusion study was unremarkable, thus patient taken directly to OR with Neurosurgery. Angiogram with no evidence of intra cranial vessel occlusion, but notable for severe flow- limiting stenosis of left carotid artery bifurcation, thus balloon angioplasty and carotid stent placement was performed with resultant recanalization of the leftcarotid artery. Patient is seen and examined after arrival to [facility]. Patient repeating same nonsensical words and not following commands. His brother Don, and sister Marcia or updated over the phone. They report thathe lives in a senior assisted facility. Marcia reports that he drinks 1-2 alcoholic beverages nightly with no history of withdrawal. They both plan to visit tomorrow. Marcia is flying in from [place] in her flight arrives at 9:00 a.m.. 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) 02/19/2010 Past Surgical History Past Surgical History: Procedure Laterality Date CAROTID (INTERNAL) ARTERY CATHETHER PLACEMENT Bilateral 05/09/2024 CATHETER PLACEMENT INTERNAL CAROTID ARTERY performed by Crispin Nelson MD [place] [facility]OTID (EXTERNAL) ARTERY CATHETHER PLACEMENT Bilateral 05/09/2024 CATHETER PLACEMENT EXTERNAL CAROTID ARTERY performed by Crispin Nelson MD [place] [facility] [place]ONOSCOPY, DIAGNOSTIC (RECTUM) 02/06/2010 hyperplastic tissue repeat 5 yrs COLONOSCOPY, DIAGNOSTIC (RECTUM) 06/16/2018 diverticulosis/COLONOSCOPY FLEXIBLE PROXIMAL DIAGNOSTIC performed by John Paul Jameson MD at [facility] EGD, FLEXIBLE, DIAGNOSTIC 04/09/2018 Barretts, hiatal hernia, repeat 2 yrs/[facility] EGD, FLEXIBLE, DIAGNOSTIC 10/25/2020 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, small HH / evidence of inflammation, long segment of Anderson's Esophigitis / 2 year recall / ESOPHAGOGASTRODUODENOSCOPY (EGD), FLEXIBLE, TRANSORAL, DIAGNOSTIC performed by Marian Conley DO at [facility] PC PERC ARTERIAL TRANSLUMINAL MECHANICAL THROMBECTOMY/INFUSION THROMBOLYSIS INTRACRANIAL W ANG/FLUOLeft 05/09/2024 PERCUTANEOUS ARTERIAL TRANSLUMINAL MECHANICAL THROMBECTOMY AND/OR INFUSION OF THROMBOLYSIS,INTRACRANIAL,& METHOD INCLUDING DIAGNOSTIC ANGIO performed by Crispin Nelson MD [place] [facility] [place] 1972 VERTEBRAL ARTERY CATHETER PLACEMENT Bilateral 05/09/2024 CATHETER PLACEMENT VERTEBRAL ARTERY, performed by Crispin Nelson MD [place] [facility] [place] Brain 05/10/24: IMPRESSION Multiple small acute infarcts in the left cerebral hemisphere, the largest in the parietal lobe. These are in the middle anterior cerebral artery distribution. Small petechial hemorrhage in the left postcentral gyrus. Educational History: Did not obtain Prior Functional Level: Money Management is done by: Unable to obtain from patient or family Homemaking: unable to obtain from patient or family Shopping: Unable to obtain shopping history from patient or family Occupation: Unable to obtain from patient or family Barriers to Learning: Medical Status Hearing Acuity: Deferred Best Learning Method: Combination Patient/Family Goal(s): None stated Pain: No Complaints of Pain Evaluations Results: Speech-Language Skills AUDITORY COMPREHENSION: Yes/No Questions Impaired Body Part Identification Impaired Right/Left Discrimination: Impaired Commands Simple Impaired Complex Did not test Comprehension Words Impaired Sentences Impaired Paragraphs Did not test Conversation Did not test VERBAL EXPRESSION: Naming Responsive Impaired Confrontation Impaired Repetition Impaired Automatic Speech Impaired Spontaneous Utterances Words Within normal limits Sentences Impaired Conversation Impaired Paraphasias/Jargon did not test Gestures/Augmentative Did not test Perseveration present READING COMPREHENSION: Oral: Words Did not test Sentences Did not test Paragraphs Did not test Comprehension Words Did not test Sentences Did not test Paragraphs Did not test WRITTEN EXPRESSION: Biographical Information Did not test Copying Did not test Spontaneous: Words Did not test Sentences Did not test Narrative Did not test SPEECH MECHANISM: Oral Motor Not formally assessed secondary to the pt's current cognitive status. Speech Intelligibility Impaired Dysarthria did not test Apraxia Oral suspect Verbal did not test LEVEL OF ALERTNESS: alert/unfocused COGNITIVE-COMMUNICATION SKILLS: ATTENTION/CONCENTRATION: Sustained (1:1 environment) Impaired BEHAVIORAL OBSERVATIONS NOTED: perseverations ASSESSMENT/DIAGNOSIS: Moderate-severe receptive and expressive language impairment Pt was alert but presented w/decreased attention to the speaker requiring moderate redirection He was able to repeat counting 1-3 w/repetition and max visual cues His yes/no responses were unrelilable Cognitive-Communication Rehab Potential: Fair-Good RECOMMENDATIONS / TREATMENT PLAN: Rskgjm-Kbjbwbot-Syuivbsmh-Communication Therapy: Indicated for length of hospital stay Communication Goals: 1) Pt will attend to the speaker w/greater than 90% accuracy less than 25% of cues from clinician 2) Pt will follow commands w/greater than 90% accuracy less than 25% of cues from clinician 3) Pt will answer yes/no questions via any modality w/greater than 90% accuracy less than 25% of cues from clinician 4) Pt will repeat words w/greater than 90% accuracy less than 25% of cues from clinician 5) Pt will perform automatic speech tasks w/greater than 90% accuracy less than 25% of cues from clinician ANTICIPATED FREQUENCY (ON EVAL): 1-3 times per week PATIENT/FAMILY EDUCATION: No family was present at the time the assessment was completed and pt unable to comprehend secondary to his current medical dx. * Elizabeth Miguel CCC-BENCH WORKER APPRENTICE - 05/11/2024 9:17 AM ESTAssociated Order(s): ADULT SPEECH THERAPY CONSULT IP (ACUTE CARE REHAB) CLINICAL BEDSIDE SWALLOW EVALUATION - Speech-Language Pathology [address] [address] Name: Fabien Little Jr. [place] [facility] [place]438[place] Date: 05/11/2024 Time: 9:17 AM Patient Status: Inpatient Insurance: Payor: [facility] [employer] / Plan: P JORGE PREFERRED ENHANCED MP-DD / Product Type: *No Product type* / GENERAL INFORMATION: Admission Date: 05/09/2024 Referring Physician: Apoorva Pertinent Medical History: Per EPIC chart review the pt is a "84yoM with PMH of HTN, CKD3, GERD, who presents as a transfer from [facility] for further management of L MCA stroke and direct admit [place] [facility]. Patient with significant expressive/receptive aphasia, thus unable to obtain subjective data, thus history obtained from chart review, family, and director of operations support. Patient presented to [facility] yesterday around noon via EMS. Patient reported had acute onset right-sided weakness when he sat down to eat complicated by inability to walk. Symptoms started reportedly at 11:20 a.m. thus presented as stroke alert to ED, and initial head CT reportedly negative, and subsequent CTA revealed attenuated M3 branch of left MCA versus severe distal stenosis, and moderate stenosis and left P1 segment. CTA neck with severe stenosis of left internal carotid artery as well as the origin of right vertebral artery. TNK was administered at approximately 12:30 p.m. on 05/08/2024. Per ED staff patient has subsequently developed expressive aphasia with word-finding difficulty. Stat repeat CT head negative for intracranial hemorrhage and findings consistent with previous exam. Patient transferred to [facility] ED where CT perfusion study was unremarkable, thus patient taken directly to OR with Neurosurgery. Angiogram with no evidence of intra cranial vessel occlusion, but notable for severe flow- limiting stenosis of left carotid artery bifurcation, thus balloon angioplasty and carotid stent placement was performed with resultant recanalization of the leftcarotid artery. Patient is seen and examined after arrival to [facility]. Patient repeating same nonsensical words and not following commands. His brother Mikey, and sister Marcia or updated over the phone. They report thathe lives in a senior assisted facility. Marcia reports that he drinks 1-2 alcoholic beverages nightly with no history of withdrawal. They both plan to visit tomorrow. Marcia is flying in from [place] in her flight arrives at 9:00 a.m.. 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) 02/19/2010 Past Surgical History: Procedure Laterality Date CAROTID (INTERNAL) ARTERY CATHETHER PLACEMENT Bilateral 05/09/2024 CATHETER PLACEMENT INTERNAL CAROTID ARTERY performed by Crispin Nelson MD [place] [facility] [place]OTID (EXTERNAL) ARTERY CATHETHER PLACEMENT Bilateral 05/09/2024 CATHETER PLACEMENT EXTERNAL CAROTID ARTERY performed by Crispin Nelson MD at [place] [facility] [place]ONOSCOPY, DIAGNOSTIC (RECTUM) 02/06/2010 hyperplastic tissue repeat 5 yrs COLONOSCOPY, DIAGNOSTIC (RECTUM) 06/16/2018 diverticulosis/COLONOSCOPY FLEXIBLE PROXIMAL DIAGNOSTIC performed by John Paul Jameson MD at [facility] EGD, FLEXIBLE, DIAGNOSTIC 04/09/2018 Barretts, hiatal hernia, repeat 2 yrs/[facility] EGD, FLEXIBLE, DIAGNOSTIC 10/25/2020 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, small HH / evidence of inflammation, long segment of Anderson's Esophigitis / 2 year recall / ESOPHAGOGASTRODUODENOSCOPY (EGD), FLEXIBLE, TRANSORAL, DIAGNOSTIC performed by Marian Conley DO at END[facility]COPY [facility] PC PERC ARTERIAL TRANSLUMINAL MECHANICAL THROMBECTOMY/INFUSION THROMBOLYSIS INTRACRANIAL W ANG/FLUOLeft 05/09/2024 PERCUTANEOUS ARTERIAL TRANSLUMINAL MECHANICAL THROMBECTOMY AND/OR INFUSION OF THROMBOLYSIS,INTRACRANIAL,& METHOD INCLUDING DIAGNOSTIC ANGIO performed by Crispin Nelson MD [place] [facility] [place] 1972 VERTEBRAL ARTERY CATHETER PLACEMENT Bilateral 05/09/2024 CATHETER PLACEMENT VERTEBRAL ARTERY, performed by Crispin Nelson MD [place] [facility] [place] Brain 05/10/24: IMPRESSION Multiple small acute infarcts in the left cerebral hemisphere, the largest in the parietal lobe. These are in the middle anterior cerebral artery distribution. Small petechial hemorrhage in the left postcentral gyrus. Current Diet/Dysphagia History: NPO/Corflo failed Nursing Bedside Dysphagia Screening EGD 10/2020: Impression: - Esophageal mucosal changes consistent with long-segment Anderson's esophagus. Biopsied. - Small hiatal hernia. - Normal examined duodenum. Cognitive-Communication: Pt was alert, impaired receptive and expressive language. Comprehensive cognitive-communicative assessment completed this date, refer to consult for details. Barriers to Learning: Medical Status Hearing Acuity: Deferred Best Learning Method: Multimodal Pain: Nonverbal; unable to express pain, no evidence of pain observed. ORAL MECHANISM EXAM: Facial Symmetry Within functional limits Labial Function Not formally assessed secondary to the pt's current cognitive status. Lingual Function Not formally assessed secondary to the pt's current cognitive status. Velar Function did not test Dentition: upper and lower PROTECTIVE MECHANISMS: Volitional Swallow Did not test Volitional Throat Clearing Did not test Volitional Cough Did not test Vocal Quality Within Functional Limits Tracheostomy Tube: Not Present Ventilator Status: Not Applicable SWALLOWING FUNCTION: ORAL PREPARATION PHASE: Puree (IDDSI Level 4): Within functional limits (WFL) Thin Liquid (IDDSI Level 0): WFL ORAL PHASE: Puree (IDDSI Level 4): WFL Thin Liquid (IDDSI Level 0): WFL PHARYNGEAL PHASE Puree (IDDSI Level 4): WFL Thin Liquid (IDDSI Level 0): Coug w/large consecutive sips from the straw RECOMMENDATIONS/PLAN: Videofluoroscopy: Not indicated at this time Diet Level: Puree Liquid Level: Thin Presentation of Medication: As tolerated Positioning: Seated with 90 degree hip flexion Level of Supervision: total assistance Use of Straws: allowed-single sip Compensatory Techniques to be Utilized During PO Intake: Small Bites/Sips, Alternate Solids & Liquids, Slow Rate of Intake, and Check Oral Cavity for Residue ANTICIPATED FREQUENCY (ON EVAL): 1-3 times per week DIAGNOSIS/IMPRESSIONS: Diagnosis/Impressions: Overall the oral and pharyngeal phases of the swallow appear to be within functional limits for trials presented Pt did not elicit overt cough w/spoon, cup and straw presentations and his vocal quality remained clear across trials (ate cup of pudding and 120 (+) ml of thin liquids) Pt did evidence an overt cough at the end of PO trials w/large consecutive sips of thin liquids viathe straw-presence of sensation Rehab Potential: Fair-good TREATMENT PLAN: Swallowing Treatment: Indicated Treatment Goals: Patient will consume least restricitive diet without signs/symptoms of aspiration Additional Recommendations: Monitor is cognitive status for appropriateness of PO intake No family was present at the time the assessment was completed and pt unable to comprehend secondary to his current medical dx. * Rosales Parnell OTR/Kartik - 05/10/2024 3:54 PM ESTAssociated Order(s): ADULT OCCUPATIONAL THERAPY CONSULT IP GENERAL EVALUATION - Occupational Therapy [address] [address] Name: Fabien Little Jr. [place] [facility] [place]438[place] Date: 05/10/2024 Time: 3:54 PM Fabien Little Jr. is a 84 year old male. Patient Status: Inpatient Insurance: Payor: [facility] JORGE Plan: [facility] JORGE PREFERRED ENHANCED MP-DD Product Type: *No Product type* Patient Seen: at bedside, nursing cleared patient for therapy Patient Identified By: Name, ID Band and Date Diagnosis: acute L MCA stroke (05/10/241335) Status of treatment: Evaluation completed (05/10/241335) Orders: OT evaluation and treatment (05/10/241335) Weight Bearing Status: Weight bearing as tolerated (05/10/241335) Precautions: 1:1;Alarms;EEG;Falls;Dominguez;NG tube;Oxygen;Safety (05/10/241335) Total Treatment Time: 23 (12/16/24 1336) Past Medical History: 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) 02/19/2010 Past Surgical History: Past Surgical History: Procedure Laterality Date CAROTID (INTERNAL) ARTERY CATHETHER PLACEMENT Bilateral 05/09/2024 CATHETER PLACEMENT INTERNAL CAROTID ARTERY performed [place] Crispin Nelson [place] [facility]NAL[place]ERY CATHETHER PLACEMENT Bilateral 05/09/2024 CATHETER PLACEMENT EXTERNAL CAROTID ARTERY performed by Crispin Nelson MD [place] [facility]ONOSCOPY, DIAGNOSTIC (RECTUM) 02/06/2010 hyperplastic tissue repeat 5 yrs COLONOSCOPY, DIAGNOSTIC (RECTUM) 06/16/2018 diverticulosis/COLONOSCOPY FLEXIBLE PROXIMAL DIAGNOSTIC performed by John Paul Jameson MD at [facility] EGD, FLEXIBLE, DIAGNOSTIC 04/09/2018 Barretts, hiatal hernia, repeat 2 yrs/[facility] EGD, FLEXIBLE, DIAGNOSTIC 10/25/2020 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, small HH / evidence of inflammation, long segment of Anderson's Esophigitis / 2 year recall / ESOPHAGOGASTRODUODENOSCOPY (EGD), FLEXIBLE, TRANSORAL, DIAGNOSTIC performed by Marian Conley DO at END[facility]COPY [facility] PC PERC ARTERIAL TRANSLUMINAL MECHANICAL THROMBECTOMY/INFUSION THROMBOLYSIS INTRACRANIAL W ANG/FLUOLeft 05/09/2024 PERCUTANEOUS ARTERIAL TRANSLUMINAL MECHANICAL THROMBECTOMY AND/OR INFUSION OF THROMBOLYSIS,INTRACRANIAL,& METHOD INCLUDING DIAGNOSTIC ANGIO performed by Crispin Nelson MD [place] [facility] V[place] 1972 VERTEBRAL ARTERY CATHETER PLACEMENT Bilateral 05/09/2024 CATHETER PLACEMENT VERTEBRAL ARTERY, performed by Crispin Nelson MD [place] [facility] Social History/Disposition Lives with: Unable to obtain from patient/family (05/10/24 6940) Assistance available: Unable to obtain from patient / family (05/10/24 9129) Dwelling type: Unable to obtain from patient / family (05/10/24 9463) Entry steps: Unable to obtain from patient / family (05/10/24 9469) Inside steps: Unable to obtain from patient / family (05/10/241358) Bedroom location: Unable to obtain from patient / family (05/10/24 135) Bath location: Unable to obtain from patient / family (05/10/241358) Prior Level of Function Reported by: Unable to obtain from patient / family (05/10/241335) Ambulation: Unable to obtain from patient / family (05/10/241335) Grooming: Unable to obtain from patient / family (05/10/241335) Bathing: Unable to obtain from patient / family (05/10/241335) Dressing: Unable to obtain from patient / family (05/10/241335) Feeding: Unable to obtain from patient / family (05/10/241335) Toileting: Unable to obtain from patient / family (05/10/241335) Subjective: Patient supine in bed, lethargic. Speech garbled, difficult to understand Pain: No complaints of pain Observations Consciousness: Lethargic (05/10/241335) Orientation: Person (05/10/241335) Cognitive Limitations: Processing;Problem solving (05/10/241335) Psychosocial: Patient cannot communicate basic needs.;Patient cannot converse in a social setting. (speech garbled; difficult to understand) (05/10/241335) Visual Deficits: (unable to track; difficulty attending) (05/10/241335) Sitting posture: Forward head;Rounded shoulders;Posterior lean (05/10/241335) Standing posture: Forward head;Rounded shoulders;Posterior lean;Right lateral lean (05/10/241335) Safety awareness: Needs cueing supervision. (05/10/241335) Other Findings Endurance: Sitting tolerance;Fair;Standing tolerance;Functional activity;Poor (05/10/241335) Coordination: LUE;Intact;RUE;Absent (05/10/241335) Tone: RUE;Flaccid (05/10/241335) Current Functional Status: Bilateral Upper Extremity Range of Motion: WFL, except (RUE; no active movement noted, passive ROM WFL) (05/10/241335) Strength Assessment: Deficits noted (05/10/241335) LUE: Shoulder;Elbow;3+/5;Grasp;4-/5 (05/10/241335) RUE: Shoulder;Elbow;Grasp;0/5 (05/10/241335) Dressing Upper Body: Dependent (to don gown) (05/10/241335) Lower Body: Dependent (to don socks) (05/10/241335) Functional Ambulation Assistive Device: No device (05/10/241335) Distance in feet:: 0 (05/10/241335) Level of Assistance: N/A (05/10/241335) Bed Mobility Roll (Right): Maximal Assistance (05/10/241335) Supine-Sit: Maximal Assistance (x1 modAx1) (05/10/241335) OT Transfers Sit-Stand: Maximal Assistance (x1 modAx1) (05/10/241335) Stand-Sit: Maximal Assistance (x1 modAx1) (05/10/241335) Bed-Chair: Maximal Assistance (x2 via stand pivot to head of bed) (05/10/241335) Balance Sit (Static): Poor (to poor-) (05/10/241335) Sit (Dynamic): Poor (-) (05/10/241335) Stand (Static): Poor (- to absent) (05/10/241335) Stand (Dynamic): Absent (05/10/241335) Alarm Status Patient positioned in: Bed (05/10/241335) With: Bed alarm intact and functioning and call tirado in reach (05/10/241335) Patient and Family Goals: unable to obtain Patient Education Education Topic: Role of OT;Plan of care goals (05/10/241335) Review of Precautions: Safety;Fall (05/10/241335) Method of Education: Verbalized to patient (05/10/241335) Education Provided to: Patient (05/10/241335) Response to Education: Has decreased awareness and understanding of education;Needs further education (05/10/241335) Barriers to learning: Medical status;Cognition;Speaking (05/10/241335) Preferred learning method: Combination (05/10/241335) Treatment Provided: Therapeutic Activity: 8 minutes Evaluation Moderate Complexity 15 minutes - 56856: Patient was cooperative and lethargic during treatment session. Moderate complexity evaluation performed and 3-5 activity limitations were identified, including ADL deficit, functional mobility deficit, bed mobility deficit, cognitive deficit, decreased strength, decreased endurance, decreased range of motion, and impaired balance. Minimal or moderate modification of the functional task was necessary to complete the evaluation. Deficits Requiring O.T. Treatment: Deficits requiring O.T. treatment needs: ADL/self-care;Balance;Endurance;Functional cognition;Functional mobility;Safety;Upper extremity strength;Upper extremity range of motion;Visual deficits;Weakness (05/10/24 1336) Assessment: Patient was [place] [facility] [place] for acute L MCA stroke. Patient was cooperativeduring OT evaluation this date. Increased cues needed to maintain alertness. Speech garbled and patient unable to answer prior level of function/social hx due to cognition/aphasia. Patient observed to say yes/no however inconsistent and still unclear. During session patient demonstrates no active movement of RUE with slight shoulder subluxation. LUE WFL with fair strength but again required increased cueing for command follow. Supine>sit performed with maxA x1 modAx1; patient able to assist with LLE, therapist helped with RLE. At edge of bed pt required modA-totalA assist for sitting balance with posterior lean noted. Pt attempted to right self with LUE however unable to truly pull self back to midline. UB/LB dressing tasks completed with totalA 2/2 cognition, decreased balance and functional reach. Sit/stand transfers (x2) performed with maxAx1 modAx1 and R knee block. Posterior andR lateral lean noted and unable to correct despite cues for posture. Ultimately stand pivot to headof bed performed maxA x2 as he was unable to advance BLEs or safely maintain upright position. He was returned supine maxAx2 assisting trunk and BLEs. All needs met. Pillows placed for improved RUE positioning. Currently, patients presents with deficits in ADLs, functional transfers and mobility, as well as decreased strength, ROM, endurance, cognition, balance and safety. Patient would benefit from continued OT services to improve independence in ADLs and functional mobility. When medically appropriate, Please consider post-acute care services which may include home health, chcf, outpatient therapy or inpatient rehabilitation. The level of care will be determined in collaboration with patient, family/caregiver and care team members. Goals: Demonstrates Self-Care at: UB Bathing: Kajal LB Bathing: ModA UB Dressing: Kajal to don gown/robe/shirt LB Dressing: ModA don socks/shoes/pants Grooming: supervision Feeding: supervision Toileting: Kajal Demonstrates Bed Mobility at: Supine to sit: Kajal Sit to supine: Kajal Rolling left/right: Kajal Side-lying<>sit: Kajal Demonstrates balance at: Sitting balance: Poor+ to Fair- Standing balance: Poor Transfers: Sit to Stand: Kajal x2 Stand to Sit: Kajal x2 Bed<>chair via stand pivot: Kajal x2 Toilet: MinAx2 Demonstrates standing/activity endurance at 2 minutes to increase participation in functional mobility and ADL tasks Increase AROM of RUE to WFL/tolerate PROM of RUE to decrease risk of tone/contractures Increase Strength of B UEs 1/2 muscle grade Patient will follow multi-step commands with 80% accuracy over 5 trials Goal Time Frame: 10 visits Treatment Plan: Safety, Bed mobility training, Functional Ambulation, Transfer Training, Upper extremity strengthening, Balance activities, ADL training and Endurance Anticipated Frequency (on eval): 3 to 5 times per week (05/10/241335) AM-PAC Help From Another Person Eating Meals: A lot (05/10/241335) Help From Another Person Taking Care of Personal Grooming: A lot (05/10/241335) Help From Another Person To Put On/Take Off Upper Body Clothing: A lot (05/10/241335) Help From Another Person To Put On/Take Off Lower Body Clothing: Total (05/10/241335) Help From Another Person Toileting: Total (05/10/241335) Help From Another Person Bathing: A lot (05/10/241335) OT AM-PAC Score: 10 (05/10/241335) OT AM-PAC t-Scale Score: 27.31 (05/10/241335) HLM (Highest Level of Mobility) Goal: Level 4 move to chair/commode (05/10/24 135) A portion of this AM-PAC assessment not scored based on functional assessment; rather clinical decision making utilized based on current findings and/or prior level of function. Please refer to future AM-PAC calculations of functional ability as they become available. * Surekha Pino, PT - 05/10/2024 1:59 PM ESTAssociated Order(s): ADULT PHYSICAL THERAPY CONSULT IP GENERAL EVALUATION - Physical Therapy [address] [address] Name: Fabien Little Jr. Location: [place] [address]/A Date: 05/10/2024 Time: 1358 Fabien Little Jr. is a/an 84 year old male. Patient Status: Inpatient Insurance: Payor: [facility] Plan: [facility] PREFERRED ENHANCED MP-DD Product Type: *No Product type* Patient Seen: at bedside, nursing cleared patient for therapy Patient Identified By: Name, ID Band and Date Diagnosis: acute ischemic L MCA stroke (05/10/24 1350) Status of treatment: Evaluation completed (05/10/24 984) Orders: PT evaluation and treatment;OOB (05/10/24 8221) Weight Bearing Status: Weight bearing as tolerated (05/10/24 8500) Precautions: 1:1;Alarms;Falls;Safety;Dominguez;EEG;NG tube;Oxygen;Wrist restraints (L wrist restraint only) (05/10/24 135) Total Treatment Time--free text: 23 (05/10/24 4824) Past Medical History: 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) 02/19/2010 Past Surgical History: Past Surgical History: Procedure Laterality Date CAROTID (INTERNAL) ARTERY CATHETHER PLACEMENT Bilateral 05/09/2024 CATHETER PLACEMENT INTERNAL CAROTID ARTERY performed by Crispin Nelson MD [place] [facility] [place] (EXTERNAL) ARTERY CATHETHER PLACEMENT Bilateral 05/09/2024 CATHETER PLACEMENT EXTERNAL CAROTID ARTERY performed by Crispin Nelson MD [place] [facility] [place]ONOSCOPY, DIAGNOSTIC (RECTUM) 02/06/2010 hyperplastic tissue repeat 5 yrs COLONOSCOPY, DIAGNOSTIC (RECTUM) 06/16/2018 diverticulosis/COLONOSCOPY FLEXIBLE PROXIMAL DIAGNOSTIC performed by John Paul Jameson MD at [facility] EGD, FLEXIBLE, DIAGNOSTIC 04/09/2018 Barretts, hiatal hernia, repeat 2 yrs/[facility] EGD, FLEXIBLE, DIAGNOSTIC 10/25/2020 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, small HH / evidence of inflammation, long segment of Anderson's Esophigitis / 2 year recall / ESOPHAGOGASTRODUODENOSCOPY (EGD), FLEXIBLE, TRANSORAL, DIAGNOSTIC performed by Marian Conley DO at [facility] PC PERC ARTERIAL TRANSLUMINAL MECHANICAL THROMBECTOMY/INFUSION THROMBOLYSIS INTRACRANIAL W ANG/FLUOLeft 05/09/2024 PERCUTANEOUS ARTERIAL TRANSLUMINAL MECHANICAL THROMBECTOMY AND/OR INFUSION OF THROMBOLYSIS,INTRACRANIAL,& METHOD INCLUDING DIAGNOSTIC ANGIO performed by Crispin Nelson MD [place] [facility] [place] 1972 VERTEBRAL ARTERY CATHETER PLACEMENT Bilateral 05/09/2024 CATHETER PLACEMENT VERTEBRAL ARTERY, performed by Crispin Nelson MD [place] [facility] Subjective: Pt in bed, lethargic. Social History/Disposition Lives with: Unable to obtain from patient/family (05/10/24 0300) Assistance available: Unable to obtain from patient / family (05/10/24 8833) Dwelling type: Unable to obtain from patient / family (05/10/24 [facility]) Entry steps: Unable to obtain from patient / family (05/10/24 4762) Inside steps: Unable to obtain from patient / family (05/10/24 6364) Bedroom location: Unable to obtain from patient / family (05/10/24 [facility]8) Bath location: Unable to obtain from patient / family (05/10/24 [facility]) Prior Level of Function Reported by: Unable to obtain from patient / family (05/10/24 3114) Ambulation: Unable to obtain from patient / family (05/10/24 [facility]) Devices at home: Unable to obtain from patient/family (05/10/24 [facility]) Observations Consciousness: Confused;Lethargic (05/10/24 4802) Orientation: (speech limited due to aphasia, only says yes/no/ok, not accurate at times) (05/10/24 9084) Psychosocial: Patient cannot communicate basic needs.;Patient cannot converse in a social setting. (speech limited due to aphasia, only says yes/no/ok, not accurate at times) (05/10/241358) Sitting Posture: Forward head;Rounded shoulders;Right lateral lean (05/10/241358) Standing Posture: Forward head;Rounded shoulders;Right lateral lean (05/10/241358) Pain: Nonverbal; unable to express pain, no evidence of pain observed. Range of Motion Range of Motion: WFL, except (increased tone versus resistance RLE) (05/10/241358) Strength Assessment Strength Assessment: (trouble following commands. roughly 4/5 LLE. increased tone versus resistanceRLE.) (05/10/241358) P.T. Bed Mobility Roll (Right): Maximal Assistance (05/10/241358) Roll (Left): Maximal Assistance (05/10/241358) Supine-Sit: Maximal Assistance (x1 modA x1) (05/10/241358) Sit-Supine: Maximal Assistance (x1 modA x1) (05/10/241358) Transfers Sit-Stand: Maximal Assistance (x1 modA x1, 2 times) (05/10/241358) Stand-Sit: Maximal Assistance (x1 modA x1) (05/10/241358) W/C-Bed/Mat: Maximal Assistance (x1 modA x1 via stand pivot to head of bed) (05/10/241358) Balance Sit (Static): Poor (to poor-) (05/10/241358) Sit (Dynamic): Poor (-) (05/10/241358) Stand (Static): Poor (- to absent) (05/10/241358) Stand (Dynamic): Poor (- to absent) (05/10/241358) Patient and or Family Goal(s): unable to obtain Patient Education Review of Precautions: Safety;Fall (role of PT) (05/10/241358) Review of Exercises: Pt Demonstrated Exercise;Verbal Exercises Provided (05/10/241358) Safety Awareness: Patient does not verbalize insight of current deficits;Patient does not demonstrates carryover of insight during functional tasks;Patient cannot communicate basic needs (05/10/241358) Preferred learning method: Not able to determine at present time (05/10/241358) Barriers to learning: Medical Status;Cognition;Level of alertness;Speaking (aphasia) (05/10/241358) Method of Education: Verbalized to patient;Patient demonstrated task (05/10/241358) Topic of Education: Safety with mobility, Goals/plan of care, and Fall prevention Method of Education: Verbal discussion and explanation provided to pt: demonstrated the exercise and or task and had reduced level of understanding due to overall status Extremity Exercise Sitting: (tolerance to sitting edge of bed, righting, weight shifting) (05/10/241358) Treatment Provided: Neuromuscular Re-education 10 minutes: balance and postural retraining Evaluation High Complexity 13 minutes - 74621: Patient was lethargic during treatment session. Highcomplexity evaluation performed and 3 or more personal factors or comorbidities were identified that will impact plan of care, including ICU status, recent stroke, limited communication, and current f unctional status. Patient presents with limitations in range of motion, strength, bed mobility, transfers, gait, elevations, balance, endurance, and safety, which will impact plan of care. These limitations will be addressed by the goals set for this patient. Alarm Status Patient positioned in: Bed (05/10/241358) With: Bed alarm intact and functioning and call tirado in reach (05/10/241358) Treatment Status: Treatment at bedside (05/10/241358) Goals: Demonstrate Bed Mobility with: minimal assistance Demonstrate Sit to/from Stand Transfers and/or Stand Pivot Transfers with: minimal assistance Demonstrate Ambulation: minimal assistance x2, least restrictive AD, 10 ft as able/appropriate Increase Strength of: B/L LE by 1/2-1 muscle grade Increase Balance: dynamic standing balance to poor+ Increase Safety: of functional mobility Time Frame: 9-10 visits Assessment: Pt is 84 year old male presenting with acute ischemic L MCA stroke. Pt seen on this date for initial evaluation. During session, pt was lethargic. Pt had trouble speaking and only able tosay yes, no, and ok, but not always accurately. Pt had trouble following commands and noted to haveincreased tone versus resistance RLE. Upon initial evaluation, pt was able to perform bed mobility with maxA for rolling and maxA x1 modA x1 for supine to/from sit. Pt worked on sitting edge of bed and required modA to maxA due to posterior and R lateral lean. Pt performed 2 sit to stand transfers with maxA x1 modA x1 and stand pivot to head of bed maxA x1 modA x1. Pt with R lean and needing R knee and foot block. Pt returned to supine maxA x1 modA x1. Following session, pt positioned in bed with alarm and call tirado in reach. Pt presents with deficits in strength, endurance, mobility, ambulation, and balance, all of which are currently negatively impacting pt's quality of life. Pt would continue to benefit from skilled PT services while inpatient at hospital to reach established goals andaddress deficits. Pt is not safe to return home due to requiring assist x2 for all mobility. Pleaseconsider post-acute care services which may include home health, chcf, outpatient therapy or inpatient rehabilitation. The level of care will be determined in collaboration with patient, family/caregiver and care team members. All needs met. Deficits requiring P.T. treatment needs: Safety;Mobility;Balance;Weakness;Endurance;Range of motion;Lower extremity strength (05/10/24 2192) Equipment Needs: Equipment needs: (TBD) (05/10/24 8007) Treatment Plan: Bed mobility training, Transfer training, Gait training, Strengthening exercises: B/L LE, Balance activities, and Educate on safety with functional mobility Anticipated Frequency (on eval): 3 to 5 times per week (05/10/24 6280) AM PAC Score with Stairs: 10 A portion of this AM-PAC assessment not scored based on functional assessment ; rather clinical decision making utilized based on current findings and/or prior level of function. Please refer to future AM-PAC calculations of functional ability as they become available. * Emily Haas RN - 05/10/2024 1:20 PM ESTAssociated Order(s): WOUND/OSTOMY CONSULT IP Images from the original note were not included. Wound / Ostomy Nurse Consult Note Wound Ostomy asked to see this 84 year old patient for sacral skin changes. Recommendations: Continue low air loss mattress Thin layer zinc moisture barrier cream to sacrum Q shift and prn with cleansing Turn and reposition Q 2 hours Limit time sitting to < 2 hours at a time; utilize waffle/bubble cushion while sitting Heel elevation off mattress at all times -utilize offloading heel boots as needed Call with changes in wound appearance or new concerns. Admitted 05/09/2024 for right sided weakness. 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 NGT and EEG in place. Sacrum with non-blanchable erythema, areas of partial thickness skin loss, approx 3cmL x 3cmW x 0.2cmD. Moisture barrier cream applied. Suggestive of stage 2 pressure injury, present on admission. * Majo Pena RDN - 05/10/2024 1:17 PM ESTAssociated Order(s): NUTRITION SERVICES (DIETITIAN) CONSULT IP CLINICAL NUTRITION CONSULT/PROGRESS NOTE [address] [address] Name: Fabien Little Jr. [place] [facility] [place] Date: 05/10/2024 Time: 10:15 AM How patient was identified (select 2): Wristband and date Discussed in interdisciplinary rounds: Renetta Fabien Little Jr. is a 84 year old male being seen for consult by provider and enteral nutrition Primary Diagnosis: L MCA stroke, R hemipare PMHx CKD 3, type 2 DM Other pertinent information: sitter at bedside as pt was agitated overnight. Swallow evaluation pending. NUTRITION ASSESSMENT: Past medical/surgical history and medications reviewed. Food/Nutrition-Related History Diet: NPO Previously followed diet: unknown Food Allergies/Intolerances: unable to be assessed Adult Energy Intake: Unable to obtain at present time Pertinent medications/vitamins/minerals/supplements: apresoline,isolyte infusion, prilosec, precedex Pertinent Biochemical Data: Nutrition related labs reviewed. There are no biochemical abnormalitiesrequiring a change in the nutrition plan of care at this time. Nutrition-Focused Physical Findings: Appearance: WNWD and Ill-appearing Respiratory support: Supplemental O2 Delivery: Nasal Cannula Nasal/Oral: Swallow function, compromised or painful due to AMS Digestive: No issues identified Last Bowel Movement: (SHIRT TURNER) (05/09/24 1100) Cognition: Confused and Sedated/Somnolent Skin: Intact Enteral access: NGT Nutrition Focused Physical Exam: NFPE deferred. Will complete at a more appropriate time Anthropometrics Measurements Admission weight: 86.4 kg Weight: 86.4 kg (190 lb 7.6 oz) (05/09/24 1015) Usual Body Weight: 79-84 kg earlier this year per EHR [place] weight: 74.3 kg [place] Weight Based on BMI: 24.9 Interpretation of Weight Change Prior to Admission: No recent/significant weight change Weight Changes Since Admission: N/A Nutrition Prescription: Energy needs: 22-25 Kcal/day: 1099-9011 Based on admission weight Protein needs: 1.0-1.2 gm/kg Protein 86-103 Based on admission weight Fluid needs: 25 ml/kg Fluid: 2160 ml/day Based on admission weight Malnutrition: Adult Malnutrition Classification: Unable to determine (05/10/24 1341) NUTRITION DIAGNOSIS: Potential for Swallowing difficulty related to stroke/AMS as evidenced by possible future need for non oral route of nutrition Goals: Diet advancement or initiation of enteral/parenteral nutrition within 24-48 hours. NUTRITION INTERVENTION/PLAN: Continue to monitor NPO/clear liquid status Clinical Nutrition Recommendations: If enteral nutrition needed then recommend: Nutren 1.5 @ 60 mL/hr --Provides 1260 mL, 1890 Kcal, 86 g protein And 958 mL free water. ( Calculated based on 21 hr infusion) NUTRITION MONITORING AND EVALUATION: NPO status/diet advancement and tolerance Lab values warranting change with MNT Weight for trends Plan follow-up: Will follow and adjust nutrition plan of care as medical condition requires. Please contact for change(s) in patient condition requiring earlier intervention. Majo Pena, MS, RD, LDN, FNKF Clinical Dietitian [facility] Extension: [phone] [address] Text * Lissa Mchugh MD - 05/10/2024 10:38 AM ESTAssociated Order(s): REHAB CONSULT IP CONSULT - Physical Medicine & Rehabilitation [address] [id number] Name: Fabien Little Jr. [place] [facility] [place]: 05/10/[place]24 Time: 10:38 AM Consulting Service: NSICU Reason for Consultation: : disposition Admission Date: 05/09/2024 Attending Physician/Provider: Sonali Dawson MD Subjective HPI: Fabien Little Jr. is a(n) 84 year old male with PMHx HTN, CKD3, GERD who was transferred to [facility] with further management of L MCA stroke on 05/09. Per the chart review, patient presented to [facility] via EMS for acute onset right-sided weakness and inability to walk at home. CTA revealed attenuated M3 branch of left MCA versus severe distal stenosis, and moderate stenosis and left P1 segment. CTA neck with severe stenosis of left internal carotid artery as well as the origin of right vertebral artery. TNK was administered at approximately 12:30 p.m. on 05/08/2024. In the ED, patient developed expressive aphasia with word-finding difficulty. Patient directly went to OR and Neurosurgery. Angiogram was showing no evidence of intracranial vessel occlusion but severe flow-limiting stenosis of left carotid artery bifurcation, thus balloon angioplasty and carotid stent placement was performed. Patient continued to repeat same nonsensical words and not following commands. Per the chart, patient has son and daughter who lives far. They report that he lives in a senior assisted facility. Patient was seen at the bedside but not able to answer questions and showed poor cognition. Presented antigravity movement with L side. PREVIOUS FUNCTIONAL STATUS: Home Set-up and Support System: Assistive Devices Used: Recent Physical Therapy Assessment: Recent Occupational Therapy Assessments: CURRENT LEVEL OF FUNCTION: Bed Mobility: Transfer: Ambulation: Review of Systems: as per HPI Past Medical History: Diagnosis Date CHARLIE inhibitor [...] by John Paul Jameson MD at ENDOSCOPY [facility] EGD, FLEXIBLE, DIAGNOSTIC 04/09/2018 Barretts, hiatal hernia, repeat 2 yrs/[facility] EGD, FLEXIBLE, DIAGNOSTIC 10/25/2020 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, small HH / evidence of inflammation, long segment of Anderson's Esophigitis / 2 year recall / ESOPHAGOGASTRODUODENOSCOPY (EGD), FLEXIBLE, TRANSORAL, DIAGNOSTIC performed by Marian Conley DO at ENDOSCOPY [facility] VASECTOMY 1972 Social History Tobacco Use Smoking status: Former Types: Pipe Passive exposure: Past Smokeless tobacco: Never Tobacco comments: used to smoke pipe in 1959's Vaping Use Vaping status: Never Used Substance Use Topics Alcohol use: Yes Comment: occasional of variety Drug use: No Family History Problem Relation Name Age of Onset Other (Other) Mother dementia Other (Other) Father alzheimer's Heart disease Brother Vitor Review of patient's allergies indicates: Allergen Reactions Amoxicillin Fever and Rash Current Facility-Administered Medications Medication Dose Route Frequency Provider Isolyte-S pH 7.4 infusion Intravenous Continuous Tricia Fisher MD aspirin chew tab 81 mg 81 mg NG Tube Daily(AM) John Paul Guerin DO atorvaSTATin (Lipitor) tab 40 mg 40 mg NG Tube Q 1700 John Paul Guerin DO chlorHEXIDINE (Periogard) 0.12 % oral rinse 15 mL 15 mL Oral mucosal membrane BID (08,1999) John Paul Guerin DO clopidogrel (pLAVix) tab 75 mg 75 mg NG Tube Daily(AM) John Paul Guerin DO dexmedeTOMIDine (Precedex) 400 mcg in 100 mL infusion 0-1.5 mcg/kg/hr Intravenous Titrate Fred Medrano PA-C hydrALAZINE (Apresoline) inj 10 mg 10 mg Intravenous Q4H PRN John Paul Guerin DO labetalol (Trandate) inj 20 mg 20 mg Intravenous Q1H PRN John Paul Guerin DO Latanoprost (Xalatan) 0.005 % ophthalmic solution 1 Drop 1 Drop Both eyes QPM 1999 Linda Guerin DO omeprazole (PriLOSEC) oral susp 40 mg 40 mg NG Tube Daily(AM) John Paul Guerin DO Oral Hygiene: Mouth Swab with dentifrice Oral Q4H Limited (00;04;12;16) John Paul Guerin DO Objective PHYSICAL EXAM: BP: 141 mmHg/71 mmHg (05/10/24 1000) Pulse: 55 (05/10/24 1000) Resp: 17 (05/10/24 1000) Temp: 36.28 C (05/10/24 1000) Temp Summary: Temp Min: 36.2 C (97.2 F) Max: 37.7 C (99.9 F) SpO2: 96 % (05/10/24 1000) O2 flow rate: 2 L/MIN (05/10/24 1000) Supplemental O2 Delivery: Nasal Cannula (05/10/24 1000) Vital Signs Last 24 Hours: BP Min: 81/47 Max: 186/102 Pulse Av.4 Min: 52 Max: 93 Most Recent Temperature Av.7 C Min: 36.22 C Max: 37.72 C Resp Av.2 Min: 12 Max: 26 General: NAD; resting comfortably Respiratory: non labored breathing on room air Skin: no erythema, no surgical site present : Dominguez catheter present Psychiatric: appropriate mood and affect NEURO/MSK: Mental Status & Orientation: awake, but not alert, oriented and not able to follow commands or verbal Motor: noticed antigravity movement on L side and 4/5 throughout on exam. R side is moving less than L side DATA REVIEW: Hemoglobin A1c Results: Lab Results Component Value Date/Time HEMOGLOBIN A1C - [facility] 7.1 (H) 05/09/2024 07:54 AM HEMOGLOBIN A1C - [facility] 7.3 (H) 03/31/2024 03:56 PM HEMOGLOBIN A1C - [facility] 7.1 (H) 11/19/2023 11:06 AM HEMOGLOBIN A1C - [facility] 6.8 (H) 04/14/2020 07:11 AM HEMOGLOBIN A1C - [facility] 6.6 (H) 12/16/2019 08:14 AM HEMOGLOBIN A1C - [facility] 6.5 (H) 09/01/2019 07:50 AM Recent Results (from the past 24 hours) MRSA SCREEN, PCR Collection Time: 05/09/24 11:16 AM Result Value Ref Range MRSA PCR Result Negative Negative ECHO, COMPLETE (2D), TRANS-THORACIC Collection Time: 05/09/24 1:38 PM Result Value Ref Range LEFT VENTRICULAR EJECTION FRACTION 55 % HEPARIN, UNFRACTIONATED Collection Time: 05/09/24 6:47 PM Result Value Ref Range Heparin, Unfractionated 0.33 (H) <0.10 IU/mL WHOLE BLOOD PROFILE, VENOUS Collection Time: 05/09/24 9:21 PM Result Value Ref Range Temperature 37.0 C pH, Venous 7.401 7.320 - 7.430 units pCO2, Venous 36.6 (L) 40.0 - 60.0 mmHg pO2, Venous 86.3 (H) 25.0 - 50.0 mmHg Base Excess, Venous -1.5 -2.0 - 2.0 mmol/L HGB 16.1 14.0 - 16.8 g/dL Oxyhemoglobin, Venous 95.2 (H) 40.0 - 85.0 % total Hgb Carboxyhemoglobin, Whole Blood 1.4 <=1.5 % total Hgb Methemoglobin, Whole Blood 0.7 <=1.5 % total Hgb Reduced Hemoglobin, Venous 2.7 % total Hgb O2 Content, Venous 21.6 (H) 7.0 - 18.0 %vol Potassium 4.4 3.5 - 5.1 mmol/L Sodium 137 135 - 146 mmol/L Chloride 104 98 - 107 mmol/L Calcium, Ionized 1.16 1.13 - 1.32 mmol/L Anion Gap 10.3 7.0 - 15.0 mmol/L Glucose 188 (H) 70 - 120 mg/dL Bicarbonate, Whole Blood 22.3 (L) 23.0 - 31.0 mmol/L HEPARIN, UNFRACTIONATED Collection Time: 05/10/24 1:14 AM Result Value Ref Range Heparin, Unfractionated 0.24 (H) <0.10 IU/mL CBC Collection Time: 05/10/24 3:35 AM Result Value Ref Range WBC 12.48 (H) 4.00 - 10.80 K/uL RBC 4.77 4.50 - 5.25 M/uL HGB 14.7 14.0 - 16.8 g/dL HCT 43.0 40.0 - 48.4 % MCV 90.1 82.0 - 99.5 fL MCH 30.8 27.0 - 34.0 pg MCHC 34.2 32.0 - 36.0 g/dL RDW 14.5 11.5 - 15.5 % PLT 181 140 - 400 K/uL MPV 9.9 6.6 - 11.1 fL nRBCs 0 <=0 /100 WBCs PT INR Collection Time: 05/10/24 3:35 AM Result Value Ref Range Prothrombin Time 15.5 (H) 11.6 - 15.2 seconds INR 1.2 0.8 - 1.2 P2Y12 INHIBITOR REACTIVITY (CLOPIDOGREL), VERIFYNOW Collection Time: 05/10/24 3:35 AM Result Value Ref Range VerifyNow P2Y12 179 (L) 182 - 335 PRU MAGNESIUM Collection Time: 05/10/24 3:35 AM Result Value Ref Range Magnesium 2.4 1.5 - 2.6 mg/dL PHOSPHORUS Collection Time: 05/10/24 3:35 AM Result Value Ref Range Phosphorus 4.0 2.5 - 4.8 mg/dL CALCIUM, IONIZED Collection Time: 05/10/24 3:35 AM Result Value Ref Range Calcium, Ionized 1.15 1.13 - 1.32 mmol/L ASPIRIN, VERIFYNOW Collection Time: 05/10/24 3:39 AM Result Value Ref Range VerifyNow Aspirin 404 (L) >=550 ARU HEPARIN, UNFRACTIONATED Collection Time: 05/10/24 6:58 AM Result Value Ref Range Heparin, Unfractionated 0.18 (H) <0.10 IU/mL CBC Collection Time: 05/10/24 8:23 AM Result Value Ref Range WBC 10.38 4.00 - 10.80 K/uL RBC 5.17 4.50 - 5.25 M/uL HGB 15.1 14.0 - 16.8 g/dL HCT 47.3 40.0 - 48.4 % MCV 91.5 82.0 - 99.5 fL MCH 29.2 27.0 - 34.0 pg MCHC 31.9 32.0 - 36.0 g/dL RDW 14.6 11.5 - 15.5 % PLT 168 140 - 400 K/uL MPV 9.6 6.6 - 11.1 fL nRBCs 0 <=0 /100 WBCs BASIC METABOLIC PANEL Collection Time: 05/10/24 8:23 AM Result Value Ref Range BUN 31 (H) 6 - 20 mg/dL CREATININE 2.0 (H) 0.6 - 1.2 mg/dL EGFR 33 (L) >=60 mL/min SODIUM 135 135 - 146 mmol/L POTASSIUM 4.4 3.5 - 5.1 mmol/L CHLORIDE 101 98 - 107 mmol/L CO2 21 (L) 22 - 32 mmol/L ANION GAP 13 7 - 15 mmol/L GLUCOSE 184 (H) 70 - 120 mg/dL CALCIUM 8.3 (L) 8.4 - 10.2 mg/dL LABS: CBC Lab Results Component Value Date/Time WBC 10.38 05/10/2024 08:23 AM WBC 6.93 05/30/2020 07:38 AM RBC 5.17 05/10/2024 08:23 AM RBC 4.98 05/30/2020 07:38 AM HGB 15.1 05/10/2024 08:23 AM HGB 12.8 (L) 05/30/2020 07:38 AM HCT 47.3 05/10/2024 08:23 AM HCT 37.6 (L) 05/30/2020 07:38 AM MCV 91.5 05/10/2024 08:23 AM MCV 75.5 (L) 05/30/2020 07:38 AM MCH 29.2 05/10/2024 08:23 AM MCH 25.7 (L) 05/30/2020 07:38 AM MCHC 31.9 05/10/2024 08:23 AM MCHC 34.0 05/30/2020 07:38 AM RDW 14.6 05/10/2024 08:23 AM RDW 16.3 (H) 05/30/2020 07:38 AM PLT 168 05/10/2024 08:23 AM PLT 269 05/30/2020 07:38 AM MPV 9.6 05/10/2024 08:23 AM NEUTS 83.4 (H) 05/09/2024 07:54 AM NEUTS 58.5 10/02/2016 07:10 AM LYMP 24.4 10/02/2016 07:10 AM MONOS 6.1 05/09/2024 07:54 AM MONOS 12.1 (H) 10/02/2016 07:10 AM EOS 0.1 05/09/2024 07:54 AM EOS 4.6 10/02/2016 07:10 AM BASOS 0.5 05/09/2024 07:54 AM BASOS 0.4 10/02/2016 07:10 AM LABS: BMP Lab Results Component Value Date/Time BUN 31 (H) 05/10/2024 08:23 AM BUN 19 04/14/2020 07:11 AM CREAT 2.0 (H) 05/10/2024 08:23 AM CREAT 1.4 (H) 04/14/2020 07:11 AM GFRESTIMATED 48.4 (L) 04/14/2020 07:11 AM NA 135 05/10/2024 08:23 AM NA 134 (L) 04/14/2020 07:11 AM POTASSIUM 4.4 05/10/2024 08:23 AM POTASSIUM 5.0 04/14/2020 07:11 AM CL 101 05/10/2024 08:23 AM CL 96 (L) 04/14/2020 07:11 AM CO2 21 (L) 05/10/2024 08:23 AM CO2 25 04/14/2020 07:11 AM AGP 13 05/10/2024 08:23 AM AGP 13 04/14/2020 07:11 AM CA 8.3 (L) 05/10/2024 08:23 AM CA 9.9 04/14/2020 07:11 AM IMAGING STUDIES: MRI BRAIN WITHOUT CONTRAST Narrative: EXAM MRI BRAIN WITHOUT CONTRAST - 05/10/2024 5:15 am HISTORY L MCA stroke f/u COMPARISON CT head 05/09/2024 TECHNIQUE Axial T1 weighted, fat suppressed T2 weighted, FLAIR, and GRE scans, sagittal T1 weighted scans, and coronal T2 weighted scans of the brain were obtained. Diffusion-weighted imaging was also performed. FINDINGS There are some motion artifacts. Multiple varying size foci of restricted diffusion are present in the left cerebral hemisphere involving the frontal, parietal and temporal lobes, basal ganglia and periventricular white matter. There is corresponding T2 and FLAIR hyperintensity. The largest region is in the left parietal lobe, andshows mild effacement of sulci.. At least 1 focus of susceptibility artifact is present, in the left postcentral gyrus. The right cerebral hemisphere and posterior fossa are spared. There is generalized cerebral volume loss, and patchy T2/FLAIR hyperintensity in the cerebral white matter suggestive of chronic small vessel disease. No hydrocephalus or extra-axial fluid collections. Basal cisterns are well preserved. No orbital lesions. Mild mucosal thickening in the sinuses. Impression: IMPRESSION Multiple small acute infarcts in the left cerebral hemisphere, the largest in the parietal lobe. These are in the middle anterior cerebral artery distribution. Small petechial hemorrhage in the left postcentral gyrus. CT HEAD/BRAIN WO CONTRAST Narrative: EXAM CT HEAD/BRAIN WO CONTRAST - 05/09/2024 HISTORY decreasing mental status COMPARISON CT HEAD_BRAIN WO CONTRAST, ACC: [id number], dated 2024-05-09 12:26:57; CT HEAD_BRAIN WO CONTRAST, ACC: [id number], dated 2024-05-09 07:25:03 TECHNIQUE Computed tomography of the head was performed without contrast. Axial and reformatted coronal/sagittal images were provided. Images were reviewed in bone, subdural, soft tissue, brain, and stroke windows. FINDINGS No acute intracranial hemorrhage, mass effect, significant midline shift/downward herniation, or convincing acute extra-axial fluid collection. No calvarial fracture. Probable moderate sized acute left MCA territory infarct is redemonstrated. Left cerebral sulcal effacement/edema is redemonstrated. Additional scattered hypodensities the appear to be artifactual. Atherosclerotic changes. Global parenchymal volume loss with proportionate sulcal prominence. No hydrocephalus. Non-specific hypodensities in the bilateral periventricular and subcortical white matter favor chronic microvascular ischemic disease in this age group. Murdock-white matter differentiation is otherwise preserved. No acute orbital finding. No evidence for acute sinusitis. Trace right mastoid air cell fluid. Cerumen in the right ear canal. Impression: IMPRESSION CT HEAD/BRAIN WO CONTRAST: Artifact degraded exam. 1. No acute hemorrhage. 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 No hemorrhage. Recommend further evaluation with non-contrast MRI of the brain. Added to [employer] result communication system on 05/10/2024 at 1:38 am. ASSESSMENT: Principal Problem: Acute ischemic left MCA stroke (HCC) (POA: Yes) Active Problems: HTN, goal below 140/90 (POA: Yes) Gastroesophageal reflux disease without esophagitis (POA: Yes) Type 2 diabetes mellitus with stage 3a chronic kidney disease, without long-term current use of insulin (HCC) (POA: Yes) Hypertensive kidney disease with stage 3a chronic kidney disease (HCC) (POA: Yes) Dyslipidemia, goal LDL below 70 (POA: Yes) Stroke with cerebral ischemia (HCC) (POA: Unknown) Left carotid stenosis (POA: Unknown) Right hemiparesis (HCC) (POA: Unknown) Mixed aphasia (POA: Unknown) POA = Present On Admission Fabien Little Jr. is a(n) 84 year old male PMHx HTN, CKD3, GERD who presents with mobility and ADL deficits secondary to L MCA stroke . PLAN: Disposition Recommendation: TBD pending PT/OT Physiatry-Focused Considerations(s): Rehabilitation Diagnosis: Stroke Pertinent Medical Post-Acute Care Information: L MCA stroke Ambulatory Dysfunction: not tested Speech/Cognition/Swallow: NPO Skin: prevent pressure injury Bowel: Miralax/Colace prn Bladder: dominguez cath. Pain: Tylenol prn Sleep: Melatonin prn PM&R will continue to follow. Please reach out if patient's functional or medical status changes. Thank you for consulting Physical Medicine and Rehabilitation (PM&R / Physiatry). We appreciatethe opportunity to assist in the care of your patient. Please contact service via [employer] Role for further questions or concerns: PMRRESIDENTCONSULTS Patient seen, discussed, and examined with Dr. Ho. Lissa Mchugh MD PGY-3, PM&R Resident Physician 05/10/2024 Cosigned by Hitesh Anderson MD at 05/10/2024 11:27 PM EST Associated attestation - Hitesh Anderson MD - 05/10/2024 11:27 PM EST I saw and evaluated the patient today. I have reviewed the resident/fellow physician note and agree. * Raymundo Harris DO - 05/09/2024 4:46 PM ESTAssociated Order(s): OTOLARYNGOLOGY CONSULT IP Consult - [place] [facility] [place] [id number] Name: Fabien Little Jr. [place] [facility] [place] Date: 05/09/2024 Time: 4:46 PM Requesting Service: ER Reason for Consult: Upper airway bleeding HPI: Fabien Ltitle Jr. is a 84 year old man with history of HTN, and CKD stage 3A presenting from [facility] for evaluation of R hemiparesis and expressive aphasia concerning for acute infarct found onCTA there to have an L M2 occlusion. s/p thrombectomy today. Started on aspirin and heparin. Extubated after procedure. ICU reported upper airway bleeding. NG tube placement was attempted and reportedly difficult bilaterally. Attempt was made to glidescope examine the upper airway with light sedation and it was unrevealing. ENT consulted for exam. Hospital Problem List: Principal Problem: Acute ischemic left MCA stroke (HCC) (POA: Yes) Active Problems: HTN, goal below 140/90 (POA: Yes) Gastroesophageal reflux disease without esophagitis (POA: Yes) Type 2 diabetes mellitus with stage 3a chronic kidney disease, without long-term current use of insulin (HCC) (POA: Yes) Hypertensive kidney disease with stage 3a chronic kidney disease (HCC) (POA: Yes) Dyslipidemia, goal LDL below 70 (POA: Yes) Stroke with cerebral ischemia (HCC) (POA: Unknown) Left carotid stenosis (POA: Unknown) Right hemiparesis (HCC) (POA: Unknown) Mixed aphasia (POA: Unknown) Resolved Problems: * No resolved hospital problems. 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) 02/19/2010 Past Surgical History: Past Surgical History: Procedure Laterality Date COLONOSCOPY, DIAGNOSTIC (RECTUM) 02/06/2010 hyperplastic tissue repeat 5 yrs COLONOSCOPY, DIAGNOSTIC (RECTUM) 06/16/2018 diverticulosis/COLONOSCOPY FLEXIBLE PROXIMAL DIAGNOSTIC performed by John Paul Jameson MD at ENDOSCOPY [facility] EGD, FLEXIBLE, DIAGNOSTIC 04/09/2018 Barretts, hiatal hernia, repeat 2 yrs/[facility] EGD, FLEXIBLE, DIAGNOSTIC 10/25/2020 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, small HH / evidence of inflammation, long segment of Anderson's Esophigitis / 2 year recall / ESOPHAGOGASTRODUODENOSCOPY (EGD), FLEXIBLE, TRANSORAL, DIAGNOSTIC performed by Marian Conley DO at ENDOSCOPY [facility] VASECTOMY 1972 Family History: Family History Problem Relation Name Age of Onset Other (Other) Mother dementia Other (Other) Father alzheimer's Heart disease Brother Vitor Social History: Social History Tobacco Use Smoking status: Former Types: Pipe Passive exposure: Past Smokeless tobacco: Never Tobacco comments: used to smoke pipe in 1959's Vaping Use Vaping status: Never Used Substance Use Topics Alcohol use: Yes Comment: occasional of variety Drug use: No Allergies: Amoxicillin Review of Systems: Negative unless otherwise indicated in HPI. Physical Examination: BP 145/85 | Pulse 89 | Temp 37.2 C (99 F) (Tympanic) | Resp 22 | Wt 86.4 kg (190 lb 7.6 oz) | SpO2 99% | BMI 29.18 kg/m | BSA 2.03 m General: Comfortable. Aphasic. Face: No cutaneous masses or lesions. Facial movement was symmetric without weakness. Nose: Examination of the nose revealed septum is non-obstructing. The turbinates are normal in appearance. No lesions, masses, polyps, or mucopurulence. No epistaxis. Oral cavity: Examination of the oral cavity revealed no mass lesions or infection. The palate was noted to be intact without evidence of clefting. The tongue exhibited normal mobility. Oropharynx: Mucosa was moist without lesion or inflammation. Uvula midline. Tonsils non-obstructing. Procedure: Fiberoptic examination of the larynx was performed. The nose was first topically decongested with topical oxymetazoline 0.05% spray and topically anesthetized with topical Lidocaine 4% spray. Blood in bilateral nasal cavities without active hemorrhage. Suspected cervical osteophyte making passage of endoscope through nasopharynx difficult. Some blood in pyriforms, no active bleeding. Vocal fold mobility was normal without paralysis or paresis. There was no significant edema or erythema of the larynx. No vocal fold masses were visualized. The exam was negative for post cricoid or pyriform sinus lesions. The patient tolerated the procedure well. Patient should refrain from eating or drinking for 30-45 minutes due to anesthesia of the pharynx and possible interference with swallowing. Procedure: A Corflo NG tube was placed in the left nasal cavity under direct visualization with a flexible fiberoptic endoscope in the right naris. The tube was seen advancing into the post-cricoid area. It was secured with tape at 65 cm. Labs: HGB 15.6 Impression: Fabien Little Jr. is a 84 year old man with stoke s/p thrombectomy today with resolved epistaxis following initiation of aspirin and plavix and NG tube placement attempts. No active bleeding seen. NG tube placed as detailed above. Recommendations: KUB to confirm NG tube placement Nasal saline spray TID Humidified face tent to prevent dry crusting of blood around airway ENT available as needed Patient will be discussed with Dr. Harris. James Antonio MD Otolaryngology Resident I did not see the patient, but I have reviewed the resident/fellow physician documentation and was readily available on date of service. * Ludmila Alexander MSW - 05/09/2024 10:15 AM ESTAssociated Order(s): CARE MANAGEMENT CONSULT IP Crispin Coronado MD - 05/09/2024 9:36 AM ESTAssociated Order(s): NEUROSURGERY CONSULT IP CONSULT - Neurosurgery [facility] [place] [id number] Name: Fabien Little Jr. Location: IP1/IP1 Date: 05/09/2024 Time: 9:37 AM REQUESTING SERVICE: Critical Care Medicine REASON FOR CONSULT: "LM2 stroke, eval for intervention" HPI: Fabien Little Jr. is a 84 year old, male with a past medical history significant for T2 dm, GERD, and arthritis; presents to [facility] via transfer from an outside hospital as a level 2 stroke alert. The patient presented to the outside hospital with right arm weakness, right facial droop, and expressive aphasia. 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) 02/19/2010 Past Surgical History: Past Surgical History: Procedure Laterality Date COLONOSCOPY, DIAGNOSTIC (RECTUM) 02/06/2010 hyperplastic tissue repeat 5 yrs COLONOSCOPY, DIAGNOSTIC (RECTUM) 06/16/2018 diverticulosis/COLONOSCOPY FLEXIBLE PROXIMAL DIAGNOSTIC performed by John Paul Jameson MD at ENDOSCOPY [facility] EGD, FLEXIBLE, DIAGNOSTIC 04/09/2018 Barretts, hiatal hernia, repeat 2 yrs/[facility] EGD, FLEXIBLE, DIAGNOSTIC 10/25/2020 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, small HH / evidence of inflammation, long segment of Anderson's Esophigitis / 2 year recall / ESOPHAGOGASTRODUODENOSCOPY (EGD), FLEXIBLE, TRANSORAL, DIAGNOSTIC performed by Marian Conley DO at ENDOSCOPY [facility] VASECTOMY 1971 Social History: Social History Tobacco Use Smoking status: Former Types: Pipe Passive exposure: Past Smokeless tobacco: Never Tobacco comments: used to smoke pipe in 1959's Vaping Use Vaping status: Never Used Substance Use Topics Alcohol use: Yes Comment: occasional of variety Drug use: No Family History: Family History Problem Relation Name Age of Onset Other (Other) Mother dementia Other (Other) Father alzheimer's Heart disease Brother Vitor Current Hospital Medications: Note that completed medications (per the MAR) continue to display for 24 hours. Ordered medicationsto be given in the future also display. Current Facility-Administered Medications Medication Dose Route Frequency Provider atorvaSTATin (Lipitor) tab 40 mg 40 mg Oral Q 1700 John Paul Guerin DO chlorHEXIDINE (Periogard) 0.12 % oral rinse 15 mL 15 mL Oral mucosal membrane BID (0800,1999) John Paul Guerin DO niCARdipine (CARDENE) 20 mg in 200 mL saline infusion 5 mg/hr Intravenous Continuous Mel Walls DO Oral Hygiene: Mouth Swab with dentifrice Oral Q4H Limited (00;04;12;16) John Paul Guerin DO verapamil (Isoptin) inj Once PRN Crispin Nelson MD Current Outpatient Medications Medication Empagliflozin 25 MG Oral Tablet (Jardiance) Ketoconazole 2 % External Shampoo (Nizoral) Omeprazole 40 MG Oral Capsule Delayed Release (PriLOSEC) Allopurinol 100 MG Oral Tablet (Zyloprim) hydrALAZINE HCl 10 MG Oral Tablet (Apresoline) Latanoprost 0.005 % Ophthalmic Solution (Xalatan) OneTouch Ultra In Vitro Strip (Glucose Blood) Vitamin D-400 10 MCG (400 UNIT) Oral Tablet (cholecalciferol (VIT D3)) OneTouch UltraSoft Lancets Ferrous Sulfate 325 (65 Fe) MG Oral Tablet (Feosol) aspirin 81 MG chewable tablet GLUCOSAMINE CHONDR 1500 COMPLX PO CAPS B-12 1000 MCG PO TBCR FISH OIL 1000 MG PO CAPS ONETOUCH ULTRA SYSTEM W/DEVICE KIT Facility-Administered Medications Ordered in Other Encounters Medication Dose Route Frequency Provider Glycopyrrolate (Robinul) inj Intravenous Once PRN Vitaliy Cartwright MD hEParin 1000 UNIT/ML inj Intravenous Once PRN Vitaliy Cartwright MD Lidocaine (PF) 2 % (PF) inj Intravenous Once PRN Vitaliy Cartwright MD ondansetron (Zofran) inj Intravenous Once PRN Vitaliy Cartwright MD PHENYLephrine (Neosynephrine) 0.4 MG/mL 25 mL Intravenous Continuous PRN Vitaliy Cartwright MD Propofol (Diprivan) 10 mg/mL (1%) bolus Intravenous Once PRN Vitaliy Cartwright MD Rocuronium inj Intravenous Once PRN Vitaliy Cartwright MD Succinylcholine Chloride (Anectine) inj Intravenous Once PRN Vitaliy Cartwright MD Allergies: Amoxicillin ROS: Unable to obtain due to patient status PHYSICAL EXAMINATION: Most Recent Vital Signs: BP: 126 mmHg/70 mmHg (05/09/24 075) Pulse: 71 (05/09/24 075) Resp: 17 (05/09/24754) Temp: 36.5 C (05/09/24 0735) Temp Summary: Temp Min: 36.5 C (97.7 F) Max: 36.5 C (97.7 F) SpO2: 94 % (05/09/24754) O2 flow rate: Supplemental O2 Delivery: Room Air, None (05/09/24754) Vital Signs Over Last 24 Hours: Systolic BP: Most Recent Systolic BP Av.1 mmHg Min: 126 mmHg Max: 174 mmHg Temperature: Most Recent Temperature Av.5 C Min: 36.5 C Max: 36.5 C Pulse: Pulse Av Min: 66 Max: 85 Respirations: Resp Av.9 Min: 16 Max: 26 SpO2: SpO2 Av.2 % Min: 93 % Max: 97 % Pt found lying in bed; NAD Pleasant and cooperative with exam Awake and alert Aphasic PERRL, EOMs intact, no nystagmus Right facial droop Left side intact No movement from RUE Able to lift RLE off bed LABS: Labs reviewed as indicated below: Component Latest Ref Rng 05/09/2024 BUN 6 - 20 mg/dL 22 (H) CREATININE 0.6 - 1.2 mg/dL 1.4 (H) EGFR >=60 mL/min 50 (L) SODIUM 135 - 146 mmol/L 132 (L) POTASSIUM 3.5 - 5.1 mmol/L 4.3 CHLORIDE 98 - 107 mmol/L 98 CO2 22 - 32 mmol/L 21 (L) ANION GAP 7 - 15 mmol/L 13 GLUCOSE 70 - 120 mg/dL 172 (H) Albumin 3.8 - 5.0 g/dL 4.1 AST 10 - 50 U/L 15 Alkaline Phosphatase 35 - 130 U/L 96 Bilirubin, Total <=1.2 mg/dL 0.8 CALCIUM 8.4 - 10.2 mg/dL 8.9 Protein 6.0 - 8.3 g/dL 7.1 ALT 10 - 50 U/L 10 WBC 4.00 - 10.80 K/uL 8.23 Neutrophils % 40.0 - 75.0 % 83.4 (H) Lymphocytes % 18.0 - 42.0 % 9.4 (L) Monocytes % 1.0 - 11.0 % 6.1 Eosinophils % 0.0 - 6.0 % 0.1 Basophils % 0.0 - 2.0 % 0.5 Immature Granulocytes % 0.0 - 2.0 % 0.5 Absolute Neutrophils 1.80 - 7.70 K/uL 6.87 Absolute Lymphocytes 1.00 - 4.80 K/ul 0.77 (L) Absolute Monocytes 0.00 - 1.10 K/uL 0.50 Absolute Eosinophils 0.00 - 0.70 K/uL 0.01 Absolute Basophils 0.00 - 0.20 K/uL 0.04 Absolute Immature Granulocytes 0.00 - 0.20 K/uL 0.04 WBC 4.00 - 10.80 K/uL 8.23 RBC 4.50 - 5.25 M/uL 5.39 HGB 14.0 - 16.8 g/dL 16.0 HCT 40.0 - 48.4 % 48.6 (H) MCV 82.0 - 99.5 fL 90.2 MCH 27.0 - 34.0 pg 29.7 MCHC 32.0 - 36.0 g/dL 32.9 RDW 11.5 - 15.5 % 14.6 PLT 140 - 400 K/uL 186 MPV 6.6 - 11.1 fL 9.5 nRBCs <=0 /100 WBCs 0 Prothrombin Time 11.6 - 15.2 seconds 14.2 INR 0.8 - 1.2 1.1 Hemoglobin A1C 4.0 - 5.6 % 7.1 (H) Estimated Average Glucose <126 mg/dL 157 (H) Legend: (H) High (L) Low IMAGING: OSH CT head showing no evidence of intracranial hemorrhage OSH CTA neck showing severe LICA origin stenosis COUNSELING TIME: I spent approximately 60 minutes with this patient greater than half the time was spent reviewing diagnosis, physical exam, imaging, and treatment IMPRESSION: 84 year old, male with a past medical history significant for T2 dm, GERD, and arthritis; patient presenting with right hemiparesis, right facial droop, and aphasia concerning for a left MCA stroke; CTA showing severe left ICA origin stenosis requiring emergent intervention RECOMMENDATIONS: Patient emergently taken to the OR for intervention Further recommendations to follow after intervention is complete Patient discussed [place]. Omar Farah[place] [facility] [place] Physician Career Services Officer, Department of Neurosurgery [employer] Business Representative of Neurosurgery, [facility] 05/09/2024 (This note was completed using the dictation program Fluency Direct. As such, there may be misspellings, word substitutions, or other variations that should not change the essence of the clinical content of this encounter note. If there is need for further clarification, please direct questions to the provider listed above.) I saw and evaluated the patient today. I have reviewed the resident/fellow physician note and agree. * Marii Rizo DO - 05/09/2024 7:14 AM ESTAssociated Order(s): NEUROLOGY CONSULT IP CONSULTS - Stroke / Vascular [place]rology [facility] [id number] Name: Fabien Little Jr. Location: Room/bed info not found Date: 05/09/2024 Time: 7:16 AM Date and Time Service was Contacted: Time: 635 Date: 05/09/2024 PRESENTING PROBLEM: Stroke-like Symptoms Last Known Well (LKW): Time: 1120 Date: 05/08/2024 Critical Response Times (document time using 24:00 clock) Stroke Alert Page Received 06:36 Neurology Assessment 07:09 Imaging (CT Scan, CT Angiogram, MRI) Review 07:38 Time patient seen 07:[address] HPI: Fabien Little Jr. is a 84 year old right handed male with stroke risk factors as outlined below, who presents with symptoms including right hemiparesis, aphasia, and dysarthria. Yesterday, patient presented to [facility] ED via EMS for acute right arm weakness. His initial NIHSS was 7. He received TNK at 12:47. Patient's RUE weakness initially seemed to improve, but around midnight later that evening he developed worsening right arm weakness as well as right-sided facial droop and expressive aphasia. Repeat NIHSS was 14. He underwent CTH, CT head/neck, and MRI brain at [facility], which showed possible M2 segment thrombus. Patient was then transferred [place] [facility] [place] and possible intervention. En route, patient was noted to have SBP in the 190s and was started on nicardipine gtt, with improvement to 150s. Patient had several small episodes of emesis on arrival to CT. He was given 10 mg metoclopramide, with improvement. Patient with expressive aphasia at present; unable to provide significant history. Ischemic Stroke Risk Factors Prior Stroke Hypertension Dyslipidemia Diabetes Carotid Stenosis CKD Hemorrhagic Stroke Risk Factors Hypertension Stroke Mimic Risk Factors None SHIRT TURNER Medications Reviewed: yes Recent Antithrombotics: Other Antithrombotic: TNK 12:47 05/08 Last Dose Taken: within 24 hours CURRENT MEDICATIONS: Note that completed medications (per the MAR) continue to display for 24 hours. Ordered medicationsto be given in the future also display. Current Facility-Administered Medications Medication Dose Route Frequency Provider atorvaSTATin (Lipitor) tab 40 mg 40 mg Oral Q 1700 John Paul Guerin DO chlorHEXIDINE (Periogard) 0.12 % oral rinse 15 mL 15 mL Oral mucosal membrane BID (0800,1999) John Paul Guerin DO dexmedeTOMIDine (Precedex) 400 mcg in 100 mL infusion 0-1.5 mcg/kg/hr Intravenous Titrate John Paul Guerin DO hEParin 25,000 units in 250 mL (Xa-Neurologic) infusion 0-30 Units/kg/hr (Adjusted) Intravenous Titrate John Paul Guerin DO hydrALAZINE (Apresoline) inj 10 mg 10 mg Intravenous Q4H PRN John Paul Guerin DO labetalol (Trandate) inj 20 mg 20 mg Intravenous Q1H PRN John Paul Guerin DO niCARdipine (CARDENE) 20 mg in 200 mL saline infusion 5 mg/hr Intravenous Continuous Mel Walls DO Oral Hygiene: Mouth Swab with dentifrice Oral Q4H Limited (00;04;12;16) John Paul Guerin DO ALLERGIES: Amoxicillin 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) 02/19/2010 PAST SURGICAL HISTORY: Past Surgical History: Procedure Laterality Date COLONOSCOPY, DIAGNOSTIC (RECTUM) 02/06/2010 hyperplastic tissue repeat 5 yrs COLONOSCOPY, DIAGNOSTIC (RECTUM) 06/16/2018 diverticulosis/COLONOSCOPY FLEXIBLE PROXIMAL DIAGNOSTIC performed by John Paul Jameson MD at ENDOSCOPY [facility] EGD, FLEXIBLE, DIAGNOSTIC 04/09/2018 Barretts, hiatal hernia, repeat 2 yrs/[facility] EGD, FLEXIBLE, DIAGNOSTIC 10/25/2020 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, small HH / evidence of inflammation, long segment of Anderson's Esophigitis / 2 year recall / ESOPHAGOGASTRODUODENOSCOPY (EGD), FLEXIBLE, TRANSORAL, DIAGNOSTIC performed by Marian Conley DO at ENDOSCOPY [facility] VASECTOMY 1972 FAMILY HISTORY: Family History Problem Relation Name Age of Onset Other (Other) Mother dementia Other (Other) Father alzheimer's Heart disease Brother Vitor Family History: Father had AD, at age 84. Mother was forgetful at end of life, at 99. Otherwise, denied any known family history of dementia, neurological disease, psychiatric illness, and substance abuse SOCIAL HISTORY: Social History Tobacco Use Smoking status: Former Types: Pipe Passive exposure: Past Smokeless tobacco: Never Tobacco comments: used to smoke pipe in Vaping Use Vaping status: Never Used Substance Use Topics Alcohol use: Yes Comment: occasional of variety Drug use: No ROS: Unable to obtain (aphasic) PHYSICAL EXAMINATION: Most Recent Vital Signs: BP: 149 mmHg/98 mmHg (05/09/24 1015) Pulse: 71 (05/09/24 0755) Resp: 17 (05/09/24 075) Temp: 36.11 C (05/09/24 1015) Temp Summary: Temp Min: 36.1 C (97 F) Max: 36.5 C (97.7 F) SpO2: 94 % (05/09/24 0755) O2 flow rate: Supplemental O2 Delivery: Room Air, None (05/09/241014) There is no height or weight on file to calculate BMI. Vital Signs Last 24 Hours: Systolic BP: Most Recent Systolic BP Av.7 mmHg Min: 126 mmHg Max: 174 mmHg Temperature: Most Recent Temperature Av.3 C Min: 36.11 C Max: 36.5 C Pulse: Pulse Av Min: 66 Max: 85 Respirations: Resp Av.9 Min: 16 Max: 26 SpO2: SpO2 Av.2 % Min: 93 % Max: 97 % General Examination: Constitutional: Appearance non-obese and no deformities Head/face, ears, nose, throat: normocephalic, atraumatic Psychiatric: appears confused Neurologic Examination: Mental Status and Orientation: GCS Adult: Eyes Open: 4 = spontaneous Best Verbal Response: 2 = incomprehensible, grunts Best Motor Response: 4 = flexion withdrawal TOTAL: 10 Memory: CHERYL - aphasic Attention: normal Knowledge:normal Language: paucity of speech, word-finding difficulty Speech: mild dysarthria Cranial Nerves: CN 2 - pupils round, equal, reactive to light and no blink to threat CN 3, 4, 6 - extra-ocular movements intact and no nystagmus CN 5 - not tested due to altered mental status CN 7 - mild R lower facial droop CN 8 - unable to assess due to altered mental status CN 9, 10 - cough intact CN 11 - unable to assess due to AMS CN 12 - unable to assess due to altered mental status Sensory: withdraws all extremities to pain except RUE Coordination: unable to assess due to AMS Muscle Tone: flaccid on RUE, RLE Muscle exam: withdraws to pain in RUE Reflexes: not tested SEVERITY SCORES: National [place] [facility] Stroke Scale: 1A. LOC: 0 1B. Question: 2 1C. Commands: 2 2. Gaze: 0 3. Visual Obregon: 0 4. Facial Palsy: 1 5A. Arm Left: 0 5B. Arm Right: 4 6A. Leg Left: 0 6B. Leg Right: 4 7. Ataxia: untestable 8. Sensory: 0 9. Aphasia: 2 10. Dysarthria: 1 11. Extinction: 0 Total: 16 Baseline / Pre-morbid Level of Function by Modified Pawan Scale: 0 - No Sxs; 6 - 3 - Mod disability can walk independently 1 - Sxs no disability 4 - Mod disability walks w/ assistance 2 - Sxs slight disability 5 - Severe disability bedridden Modified Pawan Scale = 4 - Moderately severe disability. Unable to attend to own bodily needs without assistance or unable to walk unassisted. Personal Review of Neuroimaging, my interpretations are as follows: MRI Brain: global volume loss. Small left MCA infarct I have reviewed Radiologic Studies and noted significant findings as follows: MRI of the brain conducted on 10/10/2023 showed (per radiology read): IMPRESSION 1. No convincing acute abnormality identified. Chronic left MCA infarct as described above. Moderate to advanced generalized age-related cerebral parenchymal atrophy and moderate chronic small vesselwhite matter ischemic changes. CT HEAD PERFUSION Result Date: 05/09/2024 IMPRESSION 1. No acute intracranial abnormality detected by CT, including no evidence of cerebral hemorrhage. There is an area of hypoperfusion involving left posterior MCA territory. RCBF<30% = 0 cc Tmax>6sec = 28 cc Mismatch Volume = 28 cc Mismatch Ratio = NA Hypoperfusion index = 0 CBV index = 0.7 CT HEAD/BRAIN WO CONTRAST Result Date: 05/09/2024 IMPRESSION 1. No acute intracranial abnormality detected by CT, including no evidence of cerebral hemorrhage. I have reviewed the following Diagnostic Tests and noted significant findings as follows: TTE w/o bubble study 12/15/23: Interpretation Summary The examination is adequate to evaluate the referral indication. The LV wall thickness is mildly increased (concentric). The left ventricular wall motion is normal. The left ventricular systolic function is normal. Calculated LV ejection Fraction = 60% (three dimensional volumes). The aortic root is mildly enlarged, 3.9 cm. The proximal ascending thoracic aorta is mildly enlarged, 3.8 cm. LABS: Labs reviewed as indicated below: Latest Reference Range & Units 05/09/24 07:54 Triglycerides <=174 mg/dL 107 Cholesterol <200 mg/dL 196 Non-HDL Cholesterol <=159 mg/dL 145 HDL Cholesterol >39 mg/dL 51 LDL Cholesterol <=129 mg/dL 124 Latest Reference Range & Units 05/09/24 07:54 Hemoglobin A1C 4.0 - 5.6 % 7.1 (H) (H): Data is abnormally high CONSIDERATION OF ACUTE STROKE THERAPIES: IV Thrombolysis Exclusion Criteria: - Last known well beyond the 4.5 hour time period IV Thrombolysis Relative Exclusion Criteria: - Received IV or IA (intraarterial) thrombolysis/thrombectomy to treat this stroke at an outside hospital prior to arrival IV Thrombolytic Therapy Considerations and Discussion: Patient is not eligible for IV thrombolytic therapy due to having the exclusion criteria above, andrisk to benefit is considered unfavorable. IV Thrombolysis Administration Recommendation: Do not administer IV thrombolytic agent. See any additional recommendations below for acute stroke care. Reason for delay in thrombolytic initiated > 30 minutes after hospital arrival: None. Endovascular Therapy Exclusion Criteria: - None Endovascular Therapy Relative Exclusion Criteria: - None Endovascular Therapy Assessment: - Patient is a candidate for endovascular acute stroke therapy considering the above exclusion criteria, and risk to benefit is considered favorable. Reason for delay in endovascular therapy: None. IMPRESSION: Fabien is a 84 year old male with a history of HTN, T2DM, DLD, CKD3a, and chronic L MCA infarct [facility] [facility] [place] and aphasia in the setting of recurrent L M2 occlusion s/p TNK. Most likely etiology of stroke is atheroembolic, given patient's vascular risk factors. He does have evidence of LICA stenosis on CT neck. Based on perfusion restriction in CT, discussed with NSGY and now planned for possible intervention. RECOMMENDATIONS / PLAN: Stroke: Monitoring: ICU admission Vitals and neurochecks Q1h Telemetry to assess for atrial fibrillation or other dysrhythmias STAT CT Head for any changes in mental status or neuro exam Diagnostic Studies: EKG TTE to investigate for cardioembolic source Blood Pressure: BP goal <140/90 mm Hg NSS 50 mL/hr Medications: Aspirin 81 mg daily starting tomorrow Increase atorvastatin to 80 mg daily (LDL 124) SSI for glycemic control (HgbA1c 7.1) Education: Stroke Education Rehab: Nursing Bedside Dysphagia screen PT/OT/ST consults Stroke Checklist: DVT Prophylaxis: N/A - pre-operative Antithrombotic Therapy: receiving antiplatelet or anticoagulation Atrial Fibrillation or Flutter: no Statin: receiving - high intensity Stroke Education: personal risk factors for stroke could not be provided due to: patient has aphasia and no family at bedside Rehab Therapy Plan: O.T., P.T., Speech, and likely inpatient rehab Additional Stroke Care (or Document Contraindication) as Follows: Bedside dysphagia screen; if patient does not pass, maintain NPO and order formal speech evaluation Antithrombotic therapy (ensure appropriate route, eg. PO, NGT, PEG, or MS) Lab work including CBC, CMP, PT/INR, aPTT Markers of cardiac ischemia (eg. Troponin) and obtain EKG Lipid panel and initiate high intensity statin therapy for LDL goal less than 70 Control blood sugar for goal less than 180, and preferably less than 140, and check HbA1c DVT prophylaxis P.T./O.T./Speech/Rehabilitation consultations Stroke education (contact stroke nurse if necessary) Dysphagia Screen prior to any oral intake: not done - bedside nurse to administer dysphagia screen Patient Has Decision Making Capacity: no, reason: AMS Code Status: No Code Patient plan was discussed with Dr. Ramos. Please see attending attestation for any updates or additions to plan. Marii Rizo DO Internal Medicine/Pediatrics PGY-2 Cosigned by Jose Ramos MD at 05/09/2024 1:45 PM EST Associated attestation - Jose Ramos MD - 05/09/2024 1:45 PM EST I saw and evaluated the patient today. I have reviewed the resident/fellow physician note and agree. Neurologic exam is out of proportion to ischemic burden appreciated on present neuroimaging. While repeat CT shows no evidence to suggest interval ischemia or hemorrhage, and DSA showed that the LM2 was recanalized, more definitive evaluation with repeat MRI may be prudent. Etiology of stroke is likely atheroembolism in the setting of L carotid stenosis. documented in this encounter Nursing Notes * Delano Marinelli RN - 05/17/2024 10:14 AM EST Report called to Jodie at [facility]. All questions answered to apparent satisfaction. * Marian Aldridge LPN - 05/14/2024 11:39 PM EST Patient removed right nares NG tube. call specialist made aware. * Lenka Grayson RN - 05/12/2024 7:48 PM EST Received pt from NSICU, dual skin and NIH completed with GEOLOGIC TECHNICIAN, however, did not come to agreement on NIH score. This RN believes it to be an 18, and rn behavioral health believes it to be a score of 14.. re evaluation of NIH completed with Marlene BAEZ, at shift change, and the result was a score of 18. * Lenka Grayson RN - 05/12/2024 6:53 PM EST Dual Licensed Skin Assessment completed by LENKA GRAYSON RN and ANJU DUGAN . The patient is/has a N/A Skin Breakdown (includes non blanchable erythema): No * Anju Sage RN - 05/11/2024 2:29 PM EST 05/11/2024 1330: Pt had new swelling around R groin site. RLE and R femoral pulse palpable. Dr Wheeler ([facility] Blue Resident) called to bedside. * Serina Dominguez RN - 05/10/2024 12:00 PM EST Patient/caregiver, Fabien, verbalized understanding that a pressure injury is anticipated due to the following conditions:other: EEG monitoring leads that may render established pressure injury prevention modalities ineffective. Skin breakdown is anticipated to occur in areas including but not limited to sacrum, heels, bony prominences, scalp, face. Education was provided about patient's condition and treatment as well as unit standards for turning, repositioning, and skin care. * Marlene Truong RN - 05/09/2024 8:02 PM EST Dual Licensed Skin Assessment completed by Marlene Hightower RN and Dayan Lin RN. The patient is/has a N/A Skin Breakdown (includes non blanchable erythema): Yes. Wound Type: Skin tear, location Sacrum Wound Ostomy Nurse Notified: Yes - notified via wound care protocol Nursing interventions: Q2 Turn and reposition, foam dressing, assess Q shift * Chintan Stroud RN - 05/09/2024 8:21 AM EST Neuroendovascular RN note Name: Fabien Little Jr. Date: 05/09/2024 Time: 8:21 AM [place] [facility] of Service: 05/09/2024 Patient arrived at 8:26 AM to [facility] [place] for a Carotid Stenosis treatment. Patient ID band checked using two identifiers. Patient placed supine on procedure table with comfort measures intact; bilateral arm boards and safety strap in place. Hemodynamic monitoring placed with anesthesia staff remaining at bedside for direct care. Distal pulses palpable and marked. RT staff prepares and preps for procedure. Anesthesia: General Procedure by physician. 8:46 AM Groin puncture. Access obtained on right. 8 Fr sheath placed. Catheter positioning under fluoroscopy. Angiogram in progress. 9:08 AM 3-D imaging obtained. 9:20 AM Balloon plasty L CCA. 9:22 AM Balloon plasty L CCA. 9:27 AM Stent implanted L CCA. 9:34 AM 3-D imaging obtained. Imaging finished. Catheters removed. 9:41 AM Angioseal placed. Sheath removed and manual pressure to site. Procedure ends. 9:50 AM Hemostasis obtained. Area cleaned. Gauze and Tegaderm dressing applied. Distal pulse unchanged. Patient tolerated well. Reported by RT: Total contrast used: 102 ml DAP plane A: 0.3 Gy DAP plane B: 0.01 Gy Fluoro time plane A: 11.3 minutes Fluoro time plane B: 4.8 minutes Reported as per physician, please see operative note for details: Implants: * No implants in log * documented in this encounter OR Notes * OR Surgeon - Crispin Nelson MD - 05/09/2024 9:46 AM EST [facility] [address] [facility] [id number] OPERATIVE REPORT Name: Fabien Little Jr. Date: 05/09/2024 Time: 9:47 AM [place] [facility] [place]: Neurosurgery Date of Operation: 05/09/2024 Pre-op Diagnosis: 1. Acute ischemic stroke. 2. Suspected left middle cerebral artery (M2 segment) occlusion. 3. Severe left carotid artery bifurcation stenosis Post-op Diagnosis: 1. No evidence of intracranial vessel occlusion. 2. Severe flow limiting stenosis of the left carotid artery bifurcation (85% according to NASCET criteria) secondary to atherosclerotic disease. 3. left carotid artery bifurcation balloon angioplasty and carotid stent placement with resultant recanalization of the left carotid artery. 4. Otherwise negative cerebral angiographic study with no evidence of branch occlusion, aneurysm, AVM, or dAVF. Operation: 1. 6-vessel cerebral angiogram. 2. Left carotid artery bifurcation balloon angioplasty with Viatrack balloon 5.0 x 20 mm and carotid stent placement using Precise 7.0 x 40 mm stent. Surgeon: Crispin Nelson MD Assistants: None Anesthesia: General endotracheal anesthesia Estimated Blood Loss: 30 ml. IV Fluids: NA Urine Output: NA Drains: None. Specimens/Disposition: None. Apparent Intraoperative Complications: None. Patient Condition: Stable. Disposition: Intensive Care Unit. Attestation: I performed the procedure. Indications and history: 84 year old male. The patient presented with acute onset of right sided weakness and aphasia to [facility]. Last known normal was 23:30 (05/08/2024). He was admitted to [facility] ICU. [facility] recommended transfer to [place] fro intervention but there was no transportation available. They therefore reached out to us at 04:30. TNK was given at [facility]. Brain MRI and CTA were done but unfortunatelyare still unavailable for us. He was transferred [place] [facility]. NIHSS on arrival to [facility] this morning was 16. On NCCT, the ASPECTS on repeat head CT was 9. Head CTA showed a suspected left middle cerebralartery (M2 segment) occlusion and severe left carotid artery bifurcation stenosis. CTP showed no cor e and large area of hypoperfusion. After discussion with the on-call stroke neurologist, we decidedthat the patient is a candidate for mechanical thrombectomy. As the patient was not able to signs the consent for the procedure and as there were no family contact with the patient or listed on file, we decided to proceed and perform the procedure as an emergency procedure. Procedure: The patient was brought into the endovascular suite and placed on the table. The patient was identified using two identifiers and a time-out was performed. After prepping and draping both femoral regions in the usual sterile fashion, a micropuncture kit was used to puncture the right femoral artery. Using regular Seldinger technique, a 8 Fr x 10 cm vascular sheath was then advanced over the wire and connected to a high-pressure arterial saline bag containing 4 units/ml of heparin. A 90 cm Neuron Max long guide catheter under constant heparinized saline irrigation was navigated over a 5F diagnostic Hanson catheter and a 0.038 Terumo Glidewire and used to selectively catheterize the following arteries in succession: Right common carotid artery was selected. AP and lateral views of the carotid bifurcation were obtained. Right internal carotid artery was selected. AP and lateral views of the anterior intracranial circluation were obtained. Left common carotid artery was selected. AP and lateral views of the carotid bifurcation were obtained. Left internal carotid artery was selected. AP and lateral views of the anterior intracranial circluation were obtained. LICA 3D rotational angiogram was obtained and processed at a separate workstation. The diagnostic catheter and 0.038 hydrophilic wire were removed. There is no evidence of intracranial vessel occlusion. However, there is severe flow limiting stenosis of the left carotid artery bifurcation (85% according to NASCET criteria) secondary to atherosclerotic disease. I therefore decided to proceed with balloon angioplasty and stent placement across the stenotic segment of the left carotid artery. Base line ACT was checked. 5,000 units of IV heparin were infused and the ACT was titrated to 220. Under roadmap guidance a 4 SpiderFX distal embolic protection device was navigated over a 0.014" Syncro Standard microwire and positioned in the distal internal carotid artery. The microwire was removed and the distal embolic protection device was opened. A 5 x 20 mm Viatrac balloon was brought up and inflated to nominal pressure and deflated. The balloon was removed. A 7 mm x 40 mm Precise stent was brought up and deployed across the stenotic segment. Focused AP and lateral views were obtained. The stent delivery system was removed. Focused AP and lateral views were obtained. The distal embolic protection device recaptured and removed. Global AP and lateral guide catheter views of the carotid bifurcation and anterior intracranial circulation were obtained. LICA 3D rotational angiogram was obtained and processed at a separate workstation. Right common femoral artery. AP views were obtained. At the end of the procedure, the diagnostic catheter was removed and the arteriotomy site was closed with 8-F Angioseal closure device. Findings: Right common carotid artery angiogram: The carotid bifurcation is well visualized and without significant arteriosclerotic disease or stenosis. Right internal carotid artery angiogram: The anterior intracranial circulation is unremarkable. No evidence of aneurysm, arteriovenous malformation, vasospasm, or other intracranial vascular abnormality. Left common carotid artery angiogram: pre intervention, the carotid bifurcation is well visualized,showing severe flow limiting stenosis of the left carotid artery bifurcation (85% according to NASCET criteria) secondary to atherosclerotic disease. Post stenting, there is resultant adequate recanal ization of the left carotid artery. Left internal carotid artery angiogram: The anterior intracranial circulation is unremarkable. No evidence of aneurysm, arteriovenous malformation, vasospasm, or other intracranial vascular abnormality. Right common femoral artery: The arteriotomy is above the femoral artery bifurcation. Impression: 1. No evidence of intracranial vessel occlusion. 2. Severe flow limiting stenosis of the left carotid artery bifurcation (85% according to NASCET criteria) secondary to atherosclerotic disease. 3. left carotid artery bifurcation balloon angioplasty and carotid stent placement with resultant recanalization of the left carotid artery. 4. Otherwise negative cerebral angiographic study with no evidence of branch occlusion, aneurysm, AVM, or dAVF. Implants Implant Name Type Inv. Item Serial No. Professor Of Floriculture Lot No. LRB No. Used Action STENT [id number] PRECISE [id number] - [id number] STENT 7X40 PRECISE [id number] [employer] [id number] Implanted Crispin Nelson MD Director of Open Vascular and Endovascular Neurosurgery at [facility] Certified Genetic Counselor of Neurosurgery, [facility] documented in this encounter ED Notes * Glenny Casey RN - 05/09/2024 8:04 AM EST Patient presents as a level 2 stroke alert transfer from [facility] for evaluation of carotid occlusion and possible thrombectomy. Upon arrival, patient's vital signs were stable and he was awake and alert. He has no movement in the right arm, a right sided facial droop, and expressive aphasia. Nicardipine drip was off for about two minutes due to air bubbles, but [facility] had it running at5 due to blood pressures in 190s systolic. Nicardipine turned down to 3 after first BP ran of 158/81. Patient had an episode of emesis around 0714. His head was turned to the side before emesis startedand he was assisted with suction. 10 mg metoclopramide was given before ct scan started. At 0740, nicardipine drip turned down to [address] Walls. At 0755, nicardipine drip turned off due to consecutive Bps of 131/65 and 126/70. Dr. Walls notified. Background: Last known well was 05/08/24 around 1130/noon and patient called 911 himself. He had right sided weakness. First NIHS scale was 7 on arrival to [facility]. At [facility]- TNK was given at 1247. At 0045, his symptoms worsened with right sided facial droop, expressive aphasia, no movement in the right leg or right arm. He was given a NIHS score of 14. documented in this encounter Miscellaneous Notes * Care Plan - Delano Marinelli RN - 05/17/2024 10:14 AM EST Clinical Goal(s): pt will remain free from falls (05/17/24 0915) Possible barriers to meeting goal(s)/advancing plan of care: AMS Stability of the patient: Moderately stable - low risk of patient condition declining or worsening Summary regarding today's goal(s): Met: no reported falls Recommendations: continue as tolerated * Ancillary Progress Note - Tasha Valdez MSW - 05/17/2024 9:10 AM EST CARE MANAGEMENT - ADULT DISCHARGE NOTE [facility] [address] Name: Fabien Little Location: [facility] A467/A Date: 05/17/2024 Time: 11:17 AM The following coordination of care and discharge plan has been coordinated with the care team, patient, family and/or caregiver according to the patients needs and preferences. Discharge Discharge Second Notice Important Message from Medicare delivered: Not Applicable (05/17/241116) Was Caregiver/Family/Facility contacted regarding discharge: Yes (05/17/241116) Discharge Transportation: BLS (05/17/24 111) Date of scheduled discharge transportation: 05/17/24 (05/17/24 111) Time of scheduled discharge transportation: 1000 (05/17/24 111) Patient declined post-hospital transition of care recommendation: N/A (05/17/241116) Final Discharge Plan (Complete only at time of Discharge): IP Rehab (05/17/24 1139) Destination - Discharged on 05/17/2024 Admission date: 05/09/2024 - Discharge disposition: IP Rehab Service Provider Services Address Phone Fax Patient Preferred Last Updated [facility] [address] [place] [address] [phone] -- Tasha Valdez MSW 05/14/2024 0942 Narrative: KINSEY spoke with Alyssa with [facility] this morning who said they want to take patient tomorrow- want to make sure he does well today. Transport was moved this morning from 10am today to 11am tomorrow. [facility] [employer] showed up at hospital at 10am and picked patient up. Service discharged patient. KINSEY noticed patient was discharged and called Alyssa with [facility] to inform them of discharge. Alyssa reported she checked with admissions and they are able to take patient today. KINSEY updated patient's brother Mikey ([phone]) and left message for daughter Marcia. KINSEY updated [employer] with utilization review as well. Case discussed with Professional Services Consultant Lety Gamino. Contact CM if discharge plan changes. * Care Plan - Aster Burris RN - 05/16/2024 4:50 PM EST Clinical Goal(s): Patient will remain free from falls this shift (05/16/24 0700) Possible barriers to meeting goal(s)/advancing plan of care: weakness Stability of the patient: Moderately stable - low risk of patient condition declining or worsening Summary regarding today's goal(s): Met: Patient remains free from falls Recommendations: Continue fall precautions and purposeful hourly rounding * Care Plan - Aster Burris RN - 05/15/2024 4:16 PM EST Clinical Goal(s): Patient will remain free from falls this shift (05/15/24 0700) Possible barriers to meeting goal(s)/advancing plan of care: weakness Stability of the patient: Moderately stable - low risk of patient condition declining or worsening Summary regarding today's goal(s): Met: Patient remains free from falls Recommendations: Continue fall precautions and purposeful hourly rounding * Care Plan - Shan Singleton RN - 05/15/2024 7:08 AM EST Clinical Goal(s): Pt will remain free from falls during this shift (05/14/24 1900) Possible barriers to meeting goal(s)/advancing plan of care: weakness, confusion Stability of the patient: Moderately stable - low risk of patient condition declining or worsening Summary regarding today's goal(s): Met: Pt remained free from falls during this shift Recommendations: Continue fall precautions and purposeful hourly rounding * Care Plan - Aster Burris RN - 05/14/2024 3:15 PM EST Clinical Goal(s): Pt will remain free from falls this shift (05/14/24 0700) Possible barriers to meeting goal(s)/advancing plan of care: weakness Stability of the patient: Moderately stable - low risk of patient condition declining or worsening Summary regarding today's goal(s): Met: Patient remains free from falls Recommendations: Continue fall precautions and purposeful hourly rounding * Ancillary Progress Note - Lety Katz RN - 05/14/2024 1:41 PM EST CARE MANAGEMENT - ADULT DISCHARGE NOTE [facility] [address] Name: Fabien Little JrDilip Location: [facility] A467/A Date: 05/14/2024 Time: 1:41 PM The following coordination of care and discharge plan has been coordinated with the care team, patient, family and/or caregiver according to the patients needs and preferences. Discharge Discharge Second Notice Important Message from Medicare delivered: Not Applicable (05/14/24 1341) Was Caregiver/Family/Facility contacted regarding discharge: Yes (05/14/24 1341) Discharge Transportation: BLS (05/14/24 1341) Date of scheduled discharge transportation: 05/14/24 (05/14/24 1341) Time of scheduled discharge transportation: 1400 (05/14/24 1341) Patient declined post-hospital transition of care recommendation: N/A (05/14/24 1341) Final Discharge Plan (Complete only at time of Discharge): IP Rehab (05/14/24 1341) Destination - Admitted Since 05/09/2024 Service Provider Services Address Phone Fax Patient Preferred Last Updated [facility] [address] [place] [phone] -- Tasha Valdez MSW 05/14/2024 0942 Narrative: Per service, patient is medically ready for discharge tomorrow. [facility] to [facility]. Service, bedside nurse, patient's daughter Marcia, patient's brother Mikey, and Alyssa with [facility] all aware. [place] slip with [facility]. Contact CM if discharge plan changes. 1000-this am, Cm was reached out to by Dr Denis Harris. Pt had episode of delirium, not taking meds, etc. NGT placed and restraints placed. CM called and spoke w Jenna @ [facility]. Pt will need offrestraints 24 hrs. CM moved ride to tomorrow for 1pm-awaiting confirmation of ride cook pickled meat. CM updated Dr Harris. Cm called left for Marcia (on a cruise) as well as calling and speaking with Mikey thebrother and updating him on changes for tomorrow. Jenna aware trying for ride for tomorrow as well. * Ancillary Progress Note - Jayde Connors PTA - 05/14/2024 10:07 AM EST PROGRESS NOTE - Physical Therapy [facility] [address] Name: Fabien Little Jr. Location: [facility] A467/A Date: 05/14/2024 Time: 10:07 AM Fabien Little Jr. is a/an 84 year old male. Patient Status: Inpatient Insurance: Payor: [employer] PAT[employer] Plan: [place] PATEL PREFERRED ENHANCED MP-DD Product Type: *No Product type* Patient Seen: at bedside, nursing cleared patient for therapy Patient Identified By: Name, ID Band and Date Diagnosis: acute ischemic L MCA stroke (05/14/241006) Status of treatment: Treatment completed (05/14/241006) Orders: PT evaluation and treatment (05/14/241006) Weight Bearing Status: Weight bearing as tolerated (05/14/241006) Precautions: Alarms;Falls;Safety (CVM) (05/14/241006) Total Treatment Time--free text: 30 (05/14/241006) Pain: No complaints of pain P.T. Bed Mobility Roll (Right): Dependent (05/14/241006) Roll (Left): Dependent (05/14/241006) Supine-Sit: Dependent (x2) (05/14/241006) Sit-Supine: Dependent (x2) (05/14/241006) Transfers Sit-Stand: Not Tested (05/14/241006) Stand-Sit: Not Tested (05/14/241006) Balance Sit (Static): (Poor- to absent) (05/14/241006) Sit (Dynamic): (Poor- to absent) (05/14/241006) Stand (Static): Not Tested (05/14/241006) Stand (Dynamic): Not Tested (05/14/241006) Patient and or Family Goal(s): to get well Topic of Education: Safety with mobility Extremity Exercise Supine: Hip;Knee;Ankle (05/14/241006) Hip : Right;Flexion;Adduction;Abduction;1 set of 10 (05/14/241006) Knee : Right;Heel slide;1 set of 10 (05/14/241006) Ankle: Right;Plantar flexion;Dorsiflexion;1 set of 10 (05/14/241006) Method of Education: Verbal discussion and explanation provided to patient: had reduced level of understanding due to level of alertness Treatment Provided: Therapeutic Activities 15 minutes: bed mobility training Neuromuscular Re-education 15 minutes: balance and postural retraining Alarm Status Patient positioned in: Bed (05/14/24 1007) With: Bed alarm intact and functioning and call tirado in reach (05/14/241006) Patient Education Review of Precautions: Safety;Fall (05/14/24 1007) Review of Exercises: Verbal Exercises Provided (05/14/24 1007) Safety Awareness: Needs cueing supervision;Patient cannot communicate basic needs;Patient does not demonstrates carryover of insight during functional tasks;Patient does not verbalize insight of current deficits (05/14/24 1007) Preferred learning method: Not able to determine at present time (05/14/24 1007) Barriers to learning: Medical Status;Willingness to learn;Level of alertness (05/14/241006) Method of Education: Verbalized to patient (05/14/241006) Assessment: Patient was found supine in bed upon arrival. Patient responded to noxious stimuli in all 4 extremities but did not follow any commands during the session. Patient initially opened eyes in response to his name and tactile cues but eyes remained closed throughout the rest of the session.Patient performed rolling with total assistance and sat onto the edge of the bed with total assistance x 2. Patient sat at the edge of the bed for ~15 minutes to increase postural awareness by completing reaching and self righting tasks requiring verbal/tactile cues for balance, posture, and to keep eyes open but was unable to complete tasks due to decreased level of alertness and decreased engagement. Sit to stand transfers deferred at this time due to decreased level of alertness and balance.Patient completed passive exercises on the right lower extremity to maintain range of motion (please see flowsheet). Noted patient's right lower extremity to have no active movement but did have sometone at this time. Patient limited by level of alertness and decreased patient engagement this session. Ended session with patient supine in bed with pillows for comfort, bed alarm activated, and call tirado within reach. Please consider post-acute care services which may include home health, skillednursing, outpatient therapy or inpatient rehabilitation. The level of care will be determined in collaboration with patient, family/caregiver and care team members. Deficits requiring P.T. treatment needs: Safety;Mobility;Balance;Weakness;Endurance;Lower extremitystrength;Range of motion (05/14/24 1007) Plan: Continue with current treatment plan established on evaluation. AM PAC Score with Stairs: 6 A portion of this AM-PAC assessment not scored based on functional assessment; rather clinical decision making utilized based on current findings and/or prior level of function. Please refer to future AM-PAC calculations of functional ability as they become available. * Ancillary Progress Note - Abbi Doyle COTA - 05/14/2024 9:43 AM EST PROGRESS NOTE - Occupational Therapy [address] [address] Name: Fabien Little Jr. [place] [facility] A467/A Date: 05/14/2024 Time: 2:25 PM Fabien Little Jr. is a 84 year old male. Patient Status: Inpatient Insurance: Payor: [facility] [employer] Plan: [facility] [employer] PREFERRED ENHANCED MP-DD Product Type: *No Product type* Patient Seen: at bedside, nursing cleared patient for therapy Patient Identified By: Name, ID Band and Date Diagnosis: acute L MCA stroke (05/14/24942) Status of treatment: Treatment completed (05/14/24942) Orders: OT evaluation and treatment (05/14/24942) Weight Bearing Status: Weight bearing as tolerated (05/14/24942) Precautions: Alarms;Falls;Safety (CVM) (05/14/24942) Total Treatment Time: 28 (05/14/24942) Subjective: lethargic Pain: No complaints of pain Observations Consciousness: Lethargic;Responsive to noxious stimuli (05/14/24942) Orientation: Person (05/14/24942) Cognitive Limitations: (Not tested due to decreased level of alertness) (05/14/24942) Psychosocial: (patient nodded head yes and no on occassions; did not attempt to verbalize.) (05/14/24942) Visual Deficits: (eyes remained closed throughout activity duration) (05/14/24942) Sitting posture: Forward head;Rounded shoulders;Posterior lean;Right lateral lean (05/14/24942) Standing posture: Not assessed (05/14/24942) Safety awareness: Needs cueing supervision. (05/14/24942) Other Findings Endurance: Sitting tolerance;Fair;Functional activity;Poor (05/14/24942) Current Functional Status: Activities of Daily Living: Self Care Grooming: Maximal Assistance (wash face) (05/14/24942) Dressing Upper Body: Not Tested (05/12/24 1340) Lower Body: Dependent (05/14/24942) Functional Ambulation Assistive Device: No device (05/14/24942) Distance in feet:: 0 (05/14/24942) Level of Assistance: Not Tested (05/14/24942) Bed Mobility Roll (Right): Dependent (05/14/24942) Roll (Left): Dependent (05/14/24942) Supine-Sit: Dependent (X2) (05/14/24942) Sit-Supine: Dependent (X2) (05/14/24942) OT Transfers Sit-Stand: Not Tested (05/14/24942) Stand-Sit: Not Tested (05/14/24942) Bed-Chair: Not Tested (05/14/24942) Balance Sit (Static): (poor - to absent) (05/14/24942) Sit (Dynamic): Absent (05/14/24942) Stand (Static): Not Tested (05/14/24942) Stand (Dynamic): Not Tested (05/14/24942) Patient Education Education Topic: Role of OT;Plan of care goals (05/14/24942) Review of Precautions: Safety;Fall (05/14/24942) Method of Education: Verbalized to patient (05/14/24942) Education Provided to: Patient (05/14/24942) Response to Education: Has decreased awareness and understanding of education;Needs further education (05/14/24942) Barriers to learning: Medical status;Cognition;Speaking;Level of alertness (05/14/24942) Preferred learning method: Combination (05/14/24942) Alarm Status Patient positioned in: Bed (05/14/24942) With: Pressure pad alarm intact and functioning and call tirado in reach (05/14/24942) Treatment Provided: Self [facility] Management Trainin minutes Therapeutic Procedure: 13 minutes Upper Extremity exercise Demonstrate Exercises: LUE;RUE;Shoulder;Elbow;Wrist;Grasp;1 set of 15;Flexion;Extension;Abduction;Adduction;Shoulder shrugs;Supination/pronation (05/14/24942) Peformed in: Supine (05/14/24942) Deficits requiring O.T. treatment needs: ADL/self- care;Balance;Endurance;Functional mobility;Safety;Weakness;Visual deficits;Upper extremity range of motion;Upper extremity strength;Fine motor coordination (05/14/24942) Assessment: Patient was found laying supine in bed upon arrival to room. Patients eyes remained closed throughout activity duration. Patient demonstrated bed mobility with dependence of 1-2 people. He nodded yes and no on occasions but overall did not engage and/or participate in ADL performance, sitting balance activities and/or passive core exercises despite maximal verbal and tactile stimulation. Patient did not follow commands this session, no active movement demonstrated in R UE however tone/pain noted to be in shoulder limiting full ROM ( flexion/abduction). Patient required hand over hand assistance to complete simple groom tasks using L UE, noting small attempts to wipe face, all other tasks were dependent. Due to patients decreased level of alertness and lack of participation/engagement this session functional transfers where not safe at this time therefore patient was returnedto supine, with pillows placed beneath LE's and UE's. Alarm was activated. This therapist completed1 set of 15 passive ROM bilateral UE's to maintain strength/endurance and promote active movement in paretic limb (R UE). Patient was more alert and following commands last session. Please consider post-acute care services which may include home health, chcf, outpatient therapy or inpatient rehabilitation. The level of care will be determined in collaboration with patient, family/caregiver and care team members. Plan: Will continue to follow patient per plan of care. Anticipated Frequency (on eval): 3 to 5 times per week (05/14/24942) Equipment Equipment used in Therapy: No Device (05/14/24942) AM-PAC assessment not scored at this time due to decreased level of alertness and decreased engagement and participation . Please refer to future AM-PAC calculations of functional mobility as they become available. * Ancillary Progress Note - Tasha Valdez MSW - 05/14/2024 9:37 AM EST CARE MANAGEMENT - ADULT TRANSITION NOTE [facility] [address] Name: Fabien Little Jr. [place] [facility] A467/A Date: 05/14/2024 Time: 9:38 AM Risk Stratification Risk Stratification Psycho Social / Medical Concerns Identified: Adjustment to illness/injury (05/10/241436) OBRA or OPTIONS needed for placement: No (05/10/241436) Readmission Risk Score: 19.63 (05/14/24 0800) AM-PAC Score With Stairs : 10 (05/12/241999) Caregiver Information Emergency Contacts Name Relation Home Work Mobile Marcia Urban Adult Child [phone] Other Contacts Name Relation Home Work Mobile TamayoKirti morris Adult Child [phone] Transition of Care Checklist Narrative: Auth approved for [facility]; auth number [id number]. Patient on CVM for safety purposes. KINSEY updated Alyssa with [facility]. Alyssa reported she will check to see if they are able to accommodate CVM. SW tentatively requested transport for 10:45am. SW to continue to follow. 1136: Alyssa reported she is awaiting an answer regarding CVM. KINSEY received a call from patient's daughter Marcia who asked for update. KINSEY provided update; auth approved, transport tentatively confirmedfor 11am tomorrow. Marcia reported she will be on cruise and asked SW to update patient's brother Mikey ([phone]) if she is unable to answer calls. Service updated. KINSEY to continue to follow. 1322: Alyssa with [facility] reported [facility] are able to accept patient tomorrow; asked for ride time to be moved back to 2pm. KINSEY updated transport request time back to 2pm. KINSEY called patient's daughter Marcia and provided an update. SW missed call from patient's brother Mikey ([phone]) . SW called patient's brother Mikey back and provided an update regarding discharge. Service updated. SW to continue to follow. Anticipated Transportation at Discharge: BLS Patient/Family Expectations: IRF Transition Planning Additional Considerations: --- Care Management will continue to monitor and assist with discharge planning needs * Care Plan - Kimberly Graham RN - 05/14/2024 5:58 AM EST Clinical Goal(s): pt will remain free from falls/injury (05/13/24 2300) Possible barriers to meeting goal(s)/advancing plan of care: pt diagnosis Stability of the patient: Moderately stable - low risk of patient condition declining or worsening Summary regarding today's goal(s): Met: safety maintained Recommendations: hourly rounding, call tirado in reach, safety devices in place. * Ancillary Progress Note - Tasha Valdez MSW - 05/13/2024 2:21 PM EST POST ACUTE CARE CARE [place] [facility] [address] Name: Fabien Patti Kane Jr. [place] [facility] [place]: 05/13/2024 Time: 2:21 PM Post-Acute Care Patient General Information Living Quarters: Apartment (05/10/241436) How many stories is the dwelling?: One Story (05/10/241436) Number of steps to enter living quarters:: elevator (05/10/241436) Location of bathroom(s): All floors or Single story dwelling (05/10/241436) History of falling: No (05/13/24 0800) What was your living situation prior to admission/observation?: Independently;Alone (05/10/241436) Do you have any children, pets, or other dependents that you are currently caring for?: No (05/10/241436) AM-PAC Score With Stairs : 10 (05/12/241999) Post-Acute Care with AM-PAC < 17.99 Rehab diagnosis: Stroke (05/13/241420) Inpatient Rehab Facility (IRF) Guidelines (1-8): Frequent assessment of progression toward goals;Rehabilitation intensity and frequency makes the services impracticable to obtain in less intense setting;Requires coordination care conference at least 1 time/week;Able to participate in intensive therapy program consisting of treatment at a minimum of 3 hours per day 5 days per week;Requires face toface interaction with a rehabilitative physician at a minimum of 3 times per week;Requires access to a rehabilitative RN 16/12;Indicate therapy modalities;Able to participate in rehabilitative therapyprogram including realistic goals with predictable timeframes for completion of goals (05/13/241420) Therapy Modalities: Physical Therapy;Occupational Therapy;Speech Therapy (05/13/241420) Inpatient Rehab Facility (IRF) Guidelines (9-12): Frequent re-assessment of established rehabilitative progress;Frequent monitoring and or revision of treatment plan;Established rehabilitative progress;Assistance with resolution of issues impeding rehabilitative progress (05/13/241420) [facility] Facility (SNF) Guidelines For Medical Approval (must select both): Care must be provided by an RN/BAT BOY/GIRL and cannot be managed at home;Care requires observation, monitoring and evaluation of effectiveness on a daily basis (05/11/241100) SNF guidelines for Rehab Approval (All selections required): Services required only able to be provided in an inpatient setting;Able to participate for at least 1 hour of therapy per day;Established rehabilitative progress;One or more therapy modalities (PT/OT/ST) at least 5 times a week;Requires intense care planning with realistic goals as identified by 1 of the following;Requries Training (select at least one);Frequent re-assessment of established rehabilitative progress;Frequent monitoring and or revision of treatment plan (05/11/241100) Therapy Modalities: Physical Therapy;Occupational Therapy;Speech Therapy (05/11/241100) Intense Care Plan Goals: Completion of home evaluation, assistance with home modifications;Assistance with application for community services;Coordination of multiple community services;Family medication and/or transfer training (05/11/24 1101) SNF Required Training: Gait training;Speech therapy for new diagnosis of dysphagia;Transfer Training;Speech therapy for cognitive training in conjunction with 1 additional modality;ADL training, withor without adaptive equipment (05/11/24 1101) Approved for [facility] Rehab: Approved for [facility] Re[facility] (05/11/24 1101) Meets criteria for Inpatient Rehab Facility (IRF): Patient meets criteria for IRF (05/13/24 1421) SW submitted auth request for [facility] via [employer] portal. SW to continue to follow. * Pt Handout (on AVS) - Kelley Arizmendi RPh - 05/13/2024 11:44 AM EST [id number] Clopidogrel Brand Name(s): Plavix; also available generically IMPORTANT WARNING: Clopidogrel must be changed to an active form in your body so that it can treat your condition. Some people do not change clopidogrel to its active form in the body as well as other people. Because the medication does not work as well in these people, they may be at a higher risk of having a heart attack or stroke. There are tests available to identify people who have trouble changing clopidogrelto an active form. Talk to your doctor about whether you should be tested. If you are found to havedifficulty converting clopidogrel to its active form, your doctor may change your dose of clopidogrel or tell you not to take clopidogrel. Your doctor or pharmacist will give you the medical and scientific illustrator's patient information sheet (Medication Guide) when you begin treatment with clopidogrel and each time you refill your prescription. Read the information carefully and ask your doctor or pharmacist if you have any questions. You can also visit the Food and Drug Administration (FDA) website (https://www.fda.gov/Drugs/DrugSafety/joj481247.htm) or the medical and scientific illustrator's website to obtain the Medication Guide. Talk to your doctor about the risks of taking clopidogrel. WHY is this medicine prescribed? Clopidogrel is used alone or with aspirin to prevent serious or life-threatening problems with the heart and blood vessels in people who have had a stroke, heart attack, or severe chest pain. This includes people who have percutaneous coronary intervention (PCI; angioplasty; a type of heart surgery) that may involve inserting coronary stents (metal tubes surgically placed in clogged blood vesselsto improve blood flow) or who have coronary artery bypass grafting (CABG; a type of heart surgery).Clopidogrel is also used to prevent serious or life-threatening problems with the heart and blood vessels in people who have peripheral arterial disease (poor circulation in the blood vessels that supply blood to the legs). Clopidogrel is in a class of medications called antiplatelet medications. It works by preventing platelets (a type of blood cell) from collecting and forming clots that may cause a heart attack or stroke. HOW should this medicine be used? Clopidogrel comes as a tablet to take by mouth. It is usually taken once a day with or without food. Take clopidogrel at around the same time every day. Follow the directions on your prescription label carefully, and ask your doctor or pharmacist to explain any part you do not understand. Take clopidogrel exactly as directed. Do not take more or less of it or take it more often than prescribed byyour doctor. Clopidogrel will help prevent serious problems with your heart and blood vessels only as long as you take the medication. Continue to take clopidogrel even if you feel well. Do not stop taking clopidogrel without talking to your doctor. If you stop taking clopidogrel, there is a higher risk that you may have a heart attack or stroke. If you have a stent, there is also a higher risk that you coulddevelop a blood clot in the stent if you stop taking clopidogrel too soon. Are there OTHER USES for this medicine? Clopidogrel is also sometimes used to prevent blood clots in people with atrial fibrillation (a condition in which the heart beats irregularly). Talk to your doctor about the possible risks of using this medication for your condition. This medication may be prescribed for other uses; ask your doctor or pharmacist for more information. What SPECIAL PRECAUTIONS should I follow? Before taking clopidogrel, tell your doctor and pharmacist if you are allergic to clopidogrel, prasugrel (Effient), ticlopidine, any other medications, or any ingredient in clopidogrel tablets. Ask your pharmacist or check the Medication Guide for a list of the ingredients. tell your doctor and pharmacist what other prescription and nonprescription medications, vitamins, nutritional supplements, and herbal products you are taking or plan to take while taking clopidogrel. Your doctor may need to change the doses of your medications or monitor you carefully for side effects. . The following nonprescription products may interact with clopidogrel: omeprazole (Prilosec, Prilosec OTC, Zegerid); esomeprazole (Nexium); aspirin and other nonsteroidal anti-inflammatory drugs (NSAIDs) such as ibuprofen (Advil, Motrin) and naproxen (Aleve, Naprosyn). Be sure to let your doctor and pharmacist know that you are taking these medications before you start taking clopidogrel. Do not start any of these medications while taking clopidogrel without discussing with your healthcare provider. tell your doctor if you have bleeding ulcers (sores in the lining of the stomach or small intestine that are bleeding), bleeding in the brain, or any other condition that causes severe bleeding. Your doctor may tell you that you should not take clopidogrel. tell your doctor if you have recently been injured and if you have or have ever had liver or kidney disease or any condition that may cause bleeding, including stomach problems such as ulcers. tell your doctor if you are , plan to become , or are breast- feeding. If you become while taking clopidogrel, call your doctor. if you are having surgery, including dental surgery, tell the doctor or dentist that you are taking clopidogrel. Your doctor may tell you to stop taking clopidogrel at least 5 days prior to your surgery to avoid excessive bleeding during surgery. Your doctor will tell you when to start taking clopidogrel again after your surgery. you should know that you may bleed more easily or for a longer time than usual while you are taking clopidogrel. Be careful not to cut or hurt yourself while you are taking clopidogrel. What SPECIAL DIETARY instructions should I follow? Unless your doctor tells you otherwise, continue your normal diet. What should I do IF I FORGET to take a dose? Take the missed dose as soon as you remember it. However, if it is almost time for the next dose, skip the missed dose and continue your regular dosing schedule. Do not take a double dose to make up for a missed one. What SIDE EFFECTS can this medicine cause? Clopidogrel may cause side effects. Tell your doctor if any of these symptoms are severe or do not go away: excessive tiredness headache dizziness nausea vomiting stomach pain diarrhea nosebleed Some side effects can be serious. If you experience any of the following symptoms, call your doctorimmediately: hives rash itching difficulty breathing or swallowing swelling of the face, throat, tongue, lips, eyes, hands, feet, ankles, or lower legs hoarseness black and tarry stools red blood in stools bloody vomit vomit that looks like coffee grounds unusual bleeding or bruising pink or brown urine slow or difficult speech weakness or numbness of an arm or a leg changes in vision fever shortness of breath fast heartbeat pale skin purple patches or bleeding under the skin confusion yellowing of the skin or eyes seizures Clopidogrel may cause other side effects. Call your doctor if you have any unusual problems while taking this medication. If you experience a serious side effect, you or your doctor may send a report to the Food and Drug Administration's (FDA) MedWatch Adverse Event Reporting program online (https://www.fda.gov/Safety/MedWatch) or by phone ( ). What should I know about STORAGE and DISPOSAL of this medication? Keep this medication in the container it came in, tightly closed, and out of reach of children. Store it at room temperature and away from excess heat and moisture (not in the bathroom). Unneeded medications should be disposed of in special ways to ensure that pets, children, and otherpeople cannot consume them. However, you should not flush this medication down the toilet. Instead,the best way to dispose of your medication is through a medicine take-back program. Talk to your pharmacist or contact your local garbage/recycling department to learn about take-back programs in your community. See the FDA's Safe Disposal of Medicines website (https://goo.gl/c4Rm4p) for more information if you do not have access to a take-back program. It is important to keep all medication out of sight and reach of children as many containers (such as weekly pill minders and those for eye drops, creams, patches, and inhalers) are not child-resistant and young children can open them easily. To protect young children from poisoning, always lock safety caps and immediately place the medication in a safe location -- one that is up and away and outof their sight and reach. https://www.upandaway.org What should I do in case of OVERDOSE? In case of overdose, call the poison control helpline at . Information is also available online at https://www.poisonhelp.org/help. If the victim has collapsed, had a seizure, has trouble breathing, or can't be awakened, immediately call emergency services at 911. Symptoms of overdose may include the following: unusual bruising or bleeding What OTHER INFORMATION should I know? Keep all appointments with your doctor. Do not let anyone else take your medication. Ask your pharmacist any questions you have about refilling your prescription. It is important for you to keep a written list of all of the prescription and nonprescription (fwuv-yvy-kjiqtal) medicines you are taking, as well as any products such as vitamins, minerals, or otherdietary supplements. You should bring this list with you each time you visit a doctor or if you areadmitted to a hospital. It is also important information to carry with you in case of emergencies. This report on medications is for your information only, and is not considered individual patient advice. Because of the changing nature of drug information, please consult your physician or pharmacist about specific clinical use. The [employer] [employer] represents that the information provided hereunder was formulated with a reasonable standard of care, and in conformity with professional standards in the field. The [employer] makes no representations or warranties, express or implied, including, but not limited to, any implied warranty of merchantability and/or fitness for a particular purpose, with respect to such information and specifically disclaims all such warranties. Users are advised that decisions regarding drug therapy are complex medical decisions requiring the independent, informed decision of an appropriate health home care companion, and the information is provided for informational purposes only. The entire monograph for a drug should be reviewed for a thorough understanding of the drug's actions, uses and side effects. The [employer] does not endorse or recommend the use of any drug.The information is not a substitute for medical care. [facility] Patient Medication Information?. Copyright, 2023. The [employer], [facility] Formerly [facility], [address], [place], [place]. All Rights Reserved. Duplication for commercial use must be authorized by [facility]. Selected Revisions: November 13, 2023. [facility] Patient Medication Information?. Copyright, 2023 * Ancillary Progress Note - Unruly Lange RDN - 05/13/2024 10:35 AM EST CLINICAL NUTRITION CONSULT/PROGRESS NOTE [facility] [address] Name: Fabien Little Jr. [place] [facility] [place] Date: 05/13/2024 Time: 10:35 AM How patient was identified (select 2): Wristband and Name Discussed in interdisciplinary rounds: No Fabien Little Jr. is a 84 year old male being seen for follow-up Primary Diagnosis: Admitted after stroke Other pertinent information: Patient seen this morning, he could not relay any information when seen today. Responding to questions but garbled speech and responses not appropriate. Breakfast tray in room but untouched by patient. Had received tube feeds briefly of nutren 1.5, NGT ordered to be removed. NUTRITION ASSESSMENT: Past medical/surgical history and medications reviewed. Food/Nutrition-Related History Diet: Soft & Bite Sized Food, Level 6 Previously followed diet: Regular Food Allergies/Intolerances: no known Adult Energy Intake: Less than 75% of estimated energy requirement for greater than 7 days (moderate, acute illness). Oral Nutrition Supplement (ONS): none Nutrition Support: none Pertinent medications/vitamins/minerals/supplements: Isolyte-S infsuion, NovoLOG, senna Pertinent Biochemical Data: There are no biochemical abnormalities requiring a change in the nutrition plan of care Nutrition-Focused Physical Findings: Appearance: Ill-appearing Respiratory support: Supplemental O2 Delivery: Room Air, None Nasal/Oral: Swallow function, compromised or painful Digestive: No issues identified Last Bowel Movement: (SHIRT TURNER) (05/09/24 1100) Cognition: Awake, alert and Neurologic deficits Skin: Intact Enteral access: none Anthropometrics Measurements Admission weight: 86 kg Weight: 80 kg (176 lb 6.4 oz) (05/13/24 0053) Usual Body Weight: 79-84 kg per EHR [place] weight: 74.3 kg [place] Weight Based on BMI: 24.9 Adjusted ideal weight: n/a Interpretation of Weight Change Prior to Admission: No recent/significant weight change Weight Changes Since Admission: n/a Nutrition Prescription: Energy needs: 22-25 Kcal/kg Based on admission weight Kcal/day: 8578-7988 Protein needs: 1.0-1.2 gm/kg Based on admission weight gm/day: 86-103 Fluid needs: 25 ml/kg Based on admission weight mL/day: 2150 Malnutrition: Adult Malnutrition Classification: Unable to determine (05/10/24 1341) NUTRITION DIAGNOSIS: Swallowing difficulty related to dysphagia as evidenced by need for texture modified diet. Goals: Patient to consume greater than 75 % of daily meals and 75% of daily supplements within 5 days. NUTRITION INTERVENTION/PLAN: Orders: Oral nutrition supplement added Supplement Shake (1/2 cup provides 200 calories, 6 grams protein, 34 grams carbohydrate) TID Clinical Nutrition Recommendations: Diet: Continue current nutrition plan NUTRITION MONITORING AND EVALUATION: Nursing documentation flowsheets for percent meal intake Tolerance of supplement per patient/nursing report Lab values warranting change with MNT Weight for trends Plan follow-up: Will follow and adjust nutrition plan of care as medical condition requires. Please contact for change(s) in patient condition requiring earlier intervention. Unruly TORREZ [facility] Clinical Nutrition Services Baring Text / x [phone] * Ancillary Progress Note - Aster Babb CCC-BENCH WORKER APPRENTICE - 05/13/2024 9:42 AM EST PROGRESS NOTE - Speech-Language Pathology [facility] [address] Name: Fabien Little [place] [facility] [place] Date: 05/13/2024 Time: 2:36 PM Patient Status: Inpatient Insurance: Payor: [facility] / Plan: Stevenson PATEL PREFERRED ENHANCED MP-DD / Product Type: *No Product type* / Patient Age: [age] year old SUBJECTIVE: Pt was seen for follow-up speech therapy for swallowing and speech/language. B/l soft wrist restraints and Corflo in place. Pain: No complaints of pain OBJECTIVE: Vital Signs: BP 148/86 | Pulse 100 | Temp 36.9 C (98.4 F) (Tympanic) | Resp 20 | Wt 80 kg (176lb 6.4 oz) | SpO2 93% | BMI 27.02 kg/m | BSA 1.96 m Cognition-communication: Pt awake and alert, attentive to BENCH WORKER APPRENTICE. The following goals were targeted: 1) Pt will attend to the speaker w/greater than 90% accuracy less than 25% of cues from clinician. GOAL MET - Eye contact and visual attention to task functional. 2) Pt will follow commands w/greater than 90% accuracy less than 25% of cues from clinician. GOAL NOT MET - Pt followed 60% of commands (3/5) given direct visual model. Some motor planning errors noted with suspected apraxia. 3) Pt will answer yes/no questions via any modality w/greater than 90% accuracy less than 25% of cues from clinician GOAL NOT MET - Pt answered biographical Y/N questions pertaining to name with 20% accuracy (1/5). Comprehension of questions pertaining to environment was dependent (0/5); improved to 20% given visual/gestural cues. 4) Pt will repeat words w/greater than 90% accuracy less than 25% of cues from clinician. GOAL NOT MET - Pt demonstrated repetition of BENCH WORKER APPRENTICE during structured task with 67% accuracy (10/15) given visual cues. Of note, pt frequently echolalic throughout evaluation, with greater accuracy during first 1-3 words of phrase and paraphasic errors on the last word. 5) Pt will perform automatic speech tasks w/greater than 90% accuracy less than 25% of cues from clinician GOAL NOT MET - Pt did count to 5 given initial visual/gestural cues to comprehend task directions. He counted to 10 with 90% accuracy x2 trials. Pt required max cues to verbalize days and months, repeating several targets directly following BENCH WORKER APPRENTICE. Pt limited by perseverations on prior tasks. Swallowing: Difficulty following commands for repeat cranial nerve examination. Slight upper facial asymmetry suspected on the R. Labial and lingual movement grossly functional with cues. -Pt currently on a pureed diet and thin liquids. Corflo in place. Service questioning if NGT can beremoved. Intake (meal %) over past 24 hours as follows: 05/11: 100/50/50, 05/12: 5/10/0 -The following consistencies were presented: thin liquid (Level 0) via straw, puree (Level 4), soft& bite-sized (Level 6) The pt secured and manipulated bolus with adequate oral containment. Mastication notably slow and prolonged. Suspect anterior mastication due to limited lower molars. Oral transit judged to be timely. Oral cavity clear after the swallow. Hyolaryngeal excursion palpated and judged to be timely. No coughing, throat clearing, or wet vocalquality evident. ASSESSMENT: Moderate-severe receptive and expressive language impairment evident. Mild oral dysphagia and no overt s/s pharyngeal dysphagia with consistencies presented. Pt appears to be making steady gains in both speech/language and swallowing. RECOMMENDATIONS/TREATMENT PLAN: 1. Soft & bite-sized solids with thin liquids via cup or straw 2. Supervision/assistance for meals 3. Small bites/sips and slow rate 4. HOB 90 degree for all intake, including medications 5. Meds as tolerated Continue Speech Therapy Treatment: Indicated Goals per initial POC PATIENT/FAMILY EDUCATION: Topic(s): Role of speech therapy; Results of visit; Plan of care Method of Education: Verbal discussion and explanation provided to pt: had reduced level of understanding due to aphasia Additional Recommendations: None * Ancillary Progress Note - Tasha Valdez MSW - 05/13/2024 9:09 AM EST CARE MANAGEMENT - [place] [facility] [address] Name: Fabien Fuentesruff [place] [facility] [place] Date: 05/13/2024 Time: 9:09 AM Risk Stratification Risk Stratification Psycho Social / Medical Concerns Identified: Adjustment to illness/injury (05/10/241436) OBRA or OPTIONS needed for placement: No (05/10/24 143) Readmission Risk Score: 18.78 (05/13/24 0800) AM-PAC Score With Stairs : 10 (05/12/241999) Caregiver Information Emergency Contacts Name Relation Home Work Mobile Marcia Urban Adult Child [phone] Other Contacts Name Relation Home Work Mobile BelkisKirti Adult Child [phone] Transition of Care Checklist Narrative: Per service, patient needs swallow study today. [facility] reviewing patient; SW updated Alyssa with [facility]. SW to continue to follow. 1130: Per service, NG tube and mitts to be removed today. SW updated Alyssa with [facility], who reported they are reviewing to see if they have an appropriate bed for patient. Service updated. SW to continue to follow. 1310: KINSEY spoke with Alyssa wt [facility], who reported they can offer a bed on Friday. Alyssa askedfor auth to be submitted. KINSEY called patient's daughter Marcia and provided update. Marcia asked for SW to call her back later today. SW to continue to follow. 1415: KINSEY called patient's daughter Marcia ([phone]) and provided update. Marcia agreeable to auth being submitted for [facility]. KINSEY updated Alyssa with [facility] and service. SW to continue to follow. Anticipated Transportation at Discharge: medical Patient/Family Expectations: IRF Transition Planning Additional Considerations: --- Care Management will continue to monitor and assist with discharge planning needs * Communication - Zunilda Sifuentes MD - 05/12/2024 4:20 PM EST Daughter updated. All questions answered. Support provided. * Ancillary Progress Note - Jayde Connors PTA - 05/12/2024 2:28 PM EST PROGRESS NOTE - Physical Therapy [facility] [place] [address] Name: Fabien Fuentesbritt Perez [place] [facility] [place] Date: 05/12/2024 Time: 2:28 PM Fabien Little Jr. is a/an 84 year old male. Patient Status: Inpatient Insurance: Payor: CARLITO PATEL Plan: CARLITO PATEL PREFERRED ENHANCED MP-DD Product Type: *No Product type* Patient Seen: at bedside, nursing cleared patient for therapy Patient Identified By: Name, ID Band and Date Diagnosis: acute ischemic L MCA stroke (05/12/241427) Status of treatment: Treatment completed (05/12/241427) Orders: PT evaluation and treatment (05/12/241427) Weight Bearing Status: Weight bearing as tolerated (05/12/241427) Precautions: 1:1;Alarms;Falls;Safety;NG tube;Wrist restraints (L wrist restraint) (05/12/241427) Total Treatment Time--free text: 50 (05/12/241427) Pain: No complaints of pain P.T. Bed Mobility Supine-Sit: Maximal Assistance (x2) (05/12/241427) Transfers Sit-Stand: Maximal Assistance (x2 from bed, moderate assistance x2 from chair with rail) (05/12/241427) Stand-Sit: Maximal Assistance (x2 from bed, moderate assistance x2 from chair with rail) (05/12/241427) W/C-Bed/Mat: Maximal Assistance (x2) (05/12/241427) Balance Sit (Static): (fair- to poor+) (05/12/241427) Sit (Dynamic): Poor (to poor-) (05/12/241427) Stand (Static): Poor (to poor-) (05/12/241427) Stand (Dynamic): (poor-) (05/12/241427) Patient and or Family Goal(s): to get well Topic of Education: Safety with mobility Method of Education: Verbal discussion and explanation provided to patient: demonstrated the exercise and or task Treatment Provided: Therapeutic Activities 35 minutes: bed mobility training transfer training Neuromuscular Re-education 15 minutes: balance and postural retraining Alarm Status Patient positioned in: Chair (05/12/241427) With: Pressure pad alarm intact and functioning and call tirado in reach (05/12/241427) Following session patient seated OOB in chair with chair alarm activated. Chair alarm (did not have cord to plug into call tirado system and/or room did not have port to plug cord into call tirado system). Patient's nurse was made aware. Patient Education Review of Precautions: Safety;Fall (05/12/241427) Safety Awareness: Needs cueing supervision;Patient cannot communicate basic needs;Patient does not demonstrates carryover of insight during functional tasks;Patient does not verbalize insight of current deficits (05/12/241427) Preferred learning method: Visual, tactile, verbal (05/12/241427) Barriers to learning: Medical Status;Speaking;Cognition (Aphasia) (05/12/241427) Method of Education: Verbalized to patient;Patient demonstrated task (05/12/241427) Assessment: Patient was found supine in bed upon arrival and agreeable to work with physical therapy services. Patient was alert and oriented to person and able to follow commands on his left side. Patient responded with "yes" "no" and nodded/shook head (responses were correct majority of the session however unsure of how accurate at this time). Patient completed bed mobility with maximal assistance x 2 and sat at the edge of the bed for ~15 minutes to increase postural awareness by completing self righting and trunk strengthening. Noted patient to have a right posterior lean in sitting and standing. Patient completed sit to stand transfer from the bed with maximal assistance x 2 requiring knee block on right lower extremity. Patient completed stand pivot transfer from bed to chair with maximal assistance x 2 with right knee block and assistance to advance right lower extremity. Patientcompleted another sit to stand transfer from the chair using the rail of the bed requiring right knee block and progressing to moderate assistance x 2. Patient is limited by aphasia and right sided weakness at this time however patient was able to follow commands to complete mobility. Ended sessionwith patient reclined in chair with pillows for comfort, pressure pad alarm activated, and call tirado within reach.Please consider post-acute care services which may include home health, chcf, outpatient therapy or inpatient rehabilitation. The level of care will be determined in collaboration with patient, family/caregiver and care team members. Deficits requiring P.T. treatment needs: Safety;Mobility;Balance;Weakness;Endurance;Lower extremitystrength;Range of motion (05/12/241427) Plan: Continue with current treatment plan established on evaluation. AM PAC Score with Stairs: 10 A portion of this AM-PAC assessment not scored based on functional assessment; rather clinical decision making utilized based on current findings and/or prior level of function. Please refer to future AM-PAC calculations of functional ability as they become available. * Ancillary Progress Note - Abbi Doyle COTA - 05/12/2024 1:40 PM EST PROGRESS NOTE - Occupational Therapy [address] [address] Name: Fabien Little Jr. [place] [facility] [place] Date: 05/12/2024 Time: 3:12 PM Fabien Little Jr. is a 84 year old male. Patient Status: Inpatient Insurance: Payor: [facility] Plan: Stevenson PATEL PREFERRED ENHANCED MP-DD Product Type: *No Product type* Patient Seen: at bedside, nursing cleared patient for therapy Patient Identified By: Name, ID Band and Date Diagnosis: acute L MCA stroke (05/12/241339) Status of treatment: Treatment completed (05/12/241339) Orders: OT evaluation and treatment (05/12/241339) Weight Bearing Status: Weight bearing as tolerated (05/12/241339) Precautions: 1:1;Alarms;Falls;NG tube;Safety (05/12/241339) Total Treatment Time: 45 (05/12/241339) Subjective: Agreeable to therapy with encouragement Pain: No complaints of pain Observations Consciousness: Alert;Eyes open (05/12/241339) Orientation: Person (05/12/241339) Cognitive Limitations: Attention to task;Processing;Visual attention (05/12/241339) Psychosocial: Patient cannot communicate basic needs.;Patient cannot converse in a social setting. (limited by aphasia- speech garbeled and difficult to understand) (05/12/241339) Visual Deficits: (track to the left slow; distracted) (05/12/241339) Sitting posture: Forward head;Rounded shoulders;Right lateral lean;Posterior lean (05/12/241339) Standing posture: Forward head;Rounded shoulders;Posterior lean;Right lateral lean (05/12/241339) Safety awareness: Needs cueing supervision. (05/12/241339) Other Findings Endurance: Sitting tolerance;Fair;Standing tolerance;Functional activity;Poor (05/12/241339) Coordination: LUE;Intact;RUE;Absent (05/10/241335) Tone: RUE;Flaccid (05/10/241335) Current Functional Status: Activities of Daily Living: Self Care Grooming: Not Tested (05/12/241339) Dressing Upper Body: Not Tested (05/12/241339) Lower Body: Dependent (05/12/241339) Functional Ambulation Assistive Device: No device (05/12/241339) Distance in feet:: 0 (05/12/241339) Level of Assistance: Not Tested (05/12/241339) Bed Mobility Roll (Right): Not Tested (05/12/241339) Supine-Sit: Maximal Assistance (X2) (05/12/241339) Sit-Supine: Not Tested (05/12/241339) OT Transfers Sit-Stand: Maximal Assistance (X2 b/l knee and foot block with side by side progressing to Mod A of2 b/l knee and foot block using rail in front to pull self up) (05/12/241339) Stand-Sit: Maximal Assistance (X2) (05/12/241339) Bed-Chair: Maximal Assistance (X2 via stand pivot assistance to advance R LE) (05/12/241339) Balance Sit (Static): (fair - to poor +) (05/12/241339) Sit (Dynamic): (poor to poor -) (05/12/241339) Stand (Static): Poor (poor -) (05/12/241339) Stand (Dynamic): (poor-) (05/12/241339) Patient Education Education Topic: Role of OT;Plan of care goals (05/12/241339) Review of Precautions: Safety;Fall (05/12/241339) Method of Education: Verbalized to patient (05/12/241339) Education Provided to: Patient (05/12/241339) Response to Education: Has decreased awareness and understanding of education;Needs further education (05/12/241339) Barriers to learning: Medical status;Cognition;Speaking (05/12/241339) Preferred learning method: Combination (05/12/241339) Alarm Status Patient positioned in: Bed (1: 1 present upon completion) (05/12/241339) With: Pressure pad alarm intact and functioning and call tirado in reach (05/12/241339) Following session patient seated OOB in chair with chair alarm activated. Chair alarm (did not havecord to plug into call tirado system and/or room did not have port to plug cord into call tirado system). Patient's nurse was made aware. Treatment Provided: Self [facility]itentiary Management Trainin minutes Therapeutic Activity: 27 minutes Therapeutic Procedure: 10 minutes Upper Extremity exercise Demonstrate Exercises: LUE;RUE;Shoulder;Elbow;Wrist;Grasp;1 set of 10;Flexion;Extension;Abduction;Adduction;Shoulder shrugs;Supination/pronation (05/12/241339) Peformed in: Supine (05/12/241339) Deficits requiring O.T. treatment needs: ADL/self- care;Balance;Endurance;Functional mobility;Safety;Weakness;Visual deficits;Upper extremity range of motion;Upper extremity strength;Fine motor coordination (05/12/241339) Assessment: Patient was found laying supine in bed upon arrival to room; Eyes closed initially; patient able to nod yes/no however accuracy unsure. Oriented X person. Continues to require maximal assistance of 2 to completed bed mobility. Patient more awake and alert as patient sat on the edge of the bed, noting improved command follow on L side this session which included say "Ah", stick out tongue, give thumbs up on L , kick L LE provided with verbal, visual, and tactile cues, except wiggle toes on L foot. Able to repeat and verbalize single words which included "morning, "afternoon, "hi" or "hello", " Fabien" . R UE and R LE continue to demonstrate no active movement this session. Patient focused on postural strength and stability seated at the edge of the bed for ~ 15 minutes with verbal cues to correct over all sitting balance as he leaned right and posterior. Sitting balance improved as he sat at the edge of the bed statically, but overall required maximal assistance with dynamic tasks. Patient was dependent to milena slipper socks due to decreased functional reach , visual atten tion, distractibility, R sided hemiparesis, decreased active movement R UE/R LE, impaired sitting balance, and decreased safety. Continues to required assistance of 2 for functional transfers as listed above, noting improved sit to stand and stand to sit transfer when reaching for rail in front to pull self up provided with Mod A of 2 and bilateral knee and foot block. Therapist completed 1 set of 10 reps R UE to increase active movement 2/2 R UE paresis to maximize functional independence and safety with ADL's and be mobility. Please consider post-acute care services which may include home health, chcf, outpatient therapy or inpatient rehabilitation. The level of care will be determined in collaboration with patient, family/caregiver and care team members. Patient pleasant and cooperative. Plan: Will continue to follow patient per plan of care. Anticipated Frequency (on eval): 3 to 5 times per week (05/12/24 134) Equipment Equipment used in Therapy: No Device (05/12/24 134) AM-PAC Help From Another Person Eating Meals: A lot (05/12/24 134) Help From Another Person Taking Care of Personal Grooming: A lot (05/12/24 134) Help From Another Person To Put On/Take Off Upper Body Clothing: A lot (05/12/24 134) Help From Another Person To Put On/Take Off Lower Body Clothing: Total (05/12/24 1340) Help From Another Person Toileting: Total (05/12/24 1340) Help From Another Person Bathing: A lot (05/12/24 1340) OT AM-PAC Score: 10 (05/12/24 1340) OT AM-PAC t-Scale Score: 27.31 (05/12/24 1340) JH HLM (Highest Level of Mobility) Goal: Level 4 move to chair/commode (05/12/24 1158) A portion of this AM-PAC assessment not scored based on functional assessment; rather clinical decision making utilized based on current findings and/or prior level of function. Please refer to future AM-PAC calculations of functional ability as they become available. * Ancillary Progress Note - Marilyn Peoples MSW - 05/12/2024 9:00 AM EST CARE MANAGEMENT - ADULT [place]ANSITION [place] [facility] [place] [address] Name: Fabien Little Jr. [place] [facility] [place] Date: 05/12/2024 Time: 9:00 AM Risk Stratification Risk Stratification Psycho Social / Medical Concerns Identified: Adjustment to illness/injury (05/10/24 143) OBRA or OPTIONS needed for placement: No (05/10/24 1437) Readmission Risk Score: 17.17 (05/12/24 0801) AM-PAC Score With Stairs : 10 (05/10/24 1359) Caregiver Information Emergency Contacts Name Relation Home Work Mobile Marcia Urban Adult Child [phone] Other Contacts Name Relation Home Work Mobile Kirti Tamayo Adult Child [phone] Transition of Care Checklist Narrative: SW participated in IDTs. Per service, potential transfer out of ICU today; pt cleared for PO diet yesterday, however NGT remains. SW spoke with patient's daughter via phone to discuss referral preferences. Pt's daughter reports that she reviewed lists and discussed with family and they would like a referral to [facility]. SW did discuss need for additional referrals in the event [facility] is unable to accept or patient is unable to tolerate 3 hrs of therapy. PT/OT to work with patient again today. Daughter reports she is flying back home today but will review tonight and SW will call tomorrow to obtain additional preferences if indicated. WILLIAMS opened to [facility] and SW sent message to liaison requesting they review when able. SW will continue to follow, address pt's evolving needs, and provide psychosocial support. Anticipated Transportation at Discharge: medical Patient/Family Expectations: TBD Transition Planning Additional Considerations: -- Care Management will continue to monitor and assist with discharge planning needs * Care Plan - Nelli Garcia RN - 05/12/2024 7:24 AM EST Clinical Goal(s): SBP<160 (05/11/241999) Possible barriers to meeting goal(s)/advancing plan of care: pt underlying acute condition Stability of the patient: Moderately stable - low risk of patient condition declining or worsening Summary regarding today's goal(s): Met: pt BP was <160 for most of the night and was effectively treated with labetalol and hydralizine Recommendations: consider agitation with HTN and tx w/ seroquel * Care Plan - Anju Sage RN - 05/11/2024 6:21 PM EST Clinical Goal(s): SBP<160 (05/10/241999) Possible barriers to meeting goal(s)/advancing plan of care: hypertension Stability of the patient: Moderately stable - low risk of patient condition declining or worsening Summary regarding today's goal(s): Not Met: pt required prn doses to achieve sbp < 160 Recommendations: keep in low stimulation environment * Communication - Zunilda Sifuentes MD - 05/11/2024 5:42 PM EST Patient's daughter Marcia updated over telephone. All of her questions answered. Support provided. * Ancillary Progress Note - Khushi Thomas RVT - 05/11/2024 3:36 PM EST PROCEDURE - Vascular Lab [facility] [place] [address] Name: Fabien Little JrDilip [place] [facility] [place] Date: 05/11/2024 Time: 3:36 PM FINAL PHYSICIAN REPORT TO FOLLOW. PROCEDURE: Exam done, please see final report. TECH NAME: Khushi Thomas RVT * Ancillary Progress Note - Marilyn Peoples MSW - 05/11/2024 11:02 AM EST POST ACUTE CARE CARE MANAGEMENT [address] [address] Name: Fabien Little JrDilip [place] [facility] [place] Date: 05/11/2024 Time: 11:02 AM Post-Acute Care Patient General Information Living Quarters: Apartment (05/10/241436) How many stories is the dwelling?: One Story (05/10/241436) Number of steps to enter living quarters:: elevator (05/10/241436) Location of bathroom(s): All floors or Single story dwelling (05/10/241436) History of falling: No (05/10/241999) What was your living situation prior to admission/observation?: Independently;Alone (05/10/241436) Do you have any children, pets, or other dependents that you are currently caring for?: No (05/10/241436) AM-PAC Score With Stairs : 10 (05/10/24 1359) Post-Acute Care with AM-PAC < 17.99 Rehab diagnosis: Stroke (05/11/24 110) Inpatient Rehab Facility (IRF) Guidelines (1-8): Requires face to face interaction with a rehabilitative physician at a minimum of 3 times per week;Requires access to a rehabilitative RN 16/12;Indicate therapy modalities;Able to participate in rehabilitative therapy program including realistic goalswith predictable timeframes for completion of goals;Rehabilitation intensity and frequency makes the services impracticable to obtain in less intense setting;Requires coordination care conference at least 1 time/week;Frequent assessment of progression toward goals;Does not meet Criteria (05/11/24 1101) Therapy Modalities: Physical Therapy;Occupational Therapy;Speech Therapy (05/11/24 110) [facility]sp Facility (SNF) Guidelines For Medical Approval (must select both): Care must be provided by an RN/BAT BOY/GIRL and cannot be managed at home;Care requires observation, monitoring and evaluation of effectiveness on a daily basis (05/11/241100) SNF guidelines for Rehab Approval (All selections required): Services required only able to be provided in an inpatient setting;Able to participate for at least 1 hour of therapy per day;Established rehabilitative progress;One or more therapy modalities (PT/OT/ST) at least 5 times a week;Requires intense care planning with realistic goals as identified by 1 of the following;Requries Training (select at least one);Frequent re-assessment of established rehabilitative progress;Frequent monitoring and or revision of treatment plan (05/11/241100) Therapy Modalities: Physical Therapy;Occupational Therapy;Speech Therapy (05/11/241100) Intense Care Plan Goals: Completion of home evaluation, assistance with home modifications;Assistance with application for community services;Coordination of multiple community services;Family medication and/or transfer training (05/11/241100) SNF Required Training: Gait training;Speech therapy for new diagnosis of dysphagia;Transfer Training;Speech therapy for cognitive training in conjunction with 1 additional modality;ADL training, withor without adaptive equipment (05/11/241100) Approved for [facility] Rehab: Approved for [facility] Re[facility] (05/11/241100) SW reviewed PT/OT notes, discussed with therapy and discussed with patient's daughter via phone. SWexplained IRF vs SNF LOC; PM&R following patient and per note, were awaiting therapy notes yesterday before making recommendation. SW explained that in order to meet IRF LOC; patient will need totolerate 3 hours of therapy every day. Daughter understanding of the same; requests lists of both SN Fs and IRFs be sent to her via phone. Daughter requests lists of facilities near [facility]. Both IRF and SNF lists sent to daughter via phone. Daughter reports she will review as able and discuss with family; daughter will reach out to once preferences obtained. * Progress Notes - Post-Op Devendra - Crispin Nelson MD - 05/11/2024 7:50 AM EST NEUROLOGICAL SURGERY PROGRESS [place] [facility] [address] Name: Fabien Little Jr. [place] [facility] [place] Date: 05/11/2024 Time: 7:50 AM SUBJECTIVE: LTM with no seizures. ARU/PRU today. OBJECTIVE: Most recent vital signs: BP: 114 mmHg/64 mmHg (05/11/24699) Pulse: 59 (05/11/24699) Resp: 18 (05/11/24699) Temp: 36.61 C (05/11/24599) Temp Summary: Temp Min: 36 C (96.8 F) Max: 37.4 C (99.3 F) SpO2: 92 % (05/11/24699) O2 flow rate: 2 L/MIN (05/11/24699) Supplemental O2 Delivery: Nasal Cannula (05/11/24699) Vital signs over last 24 hours: Systolic BP: Most Recent Systolic BP Av.7 mmHg Min: 97 mmHg Max: 178 mmHg Temperature: Most Recent Temperature Av.6 C Min: 36 C Max: 37.39 C Pulse: Pulse Avg: Pulse Av.7 Min: 54 Max: 82 Respirations: Resp Av.1 Min: 17 Max: 27 SpO2: SpO2 Av.8 % Min: 89 % Max: 96 % SpO2: SpO2 Av.8 % Min: 89 % Max: 96 % FiO2%: No data recorded ICP: No data found.CPP (adult): No data found.Intake Input/Output: (last 24 hours) Intake/Output Summary (Last 24 hours) at 05/11/2024 0750 Last data filed at 05/11/2024 0700 Gross per 24 hour Intake 1256.1 ml Output 1060 ml Net 196.1 ml Wound Care: clean, dry, intact Neurologic Examination [place] Coma Scale (GCS): Eyes Open: 4 = spontaneous Best Verbal Response: 4 = disoriented, inappropriate, cries Best Motor Response: 6 = obeys commands appropriate for age Awake, alert, oriented to person PERRL EOMI R facial droop RUE 2/5 LUE 5/5 RLE 4/5 LLE 5/5 Sensation diminished R side LABS: Blood count: Lab Results Component Value Date/Time WBC 10.38 05/10/2024 08:23 AM WBC 6.93 05/30/2020 07:38 AM HGB 15.1 05/10/2024 08:23 AM HGB 12.8 (L) 05/30/2020 07:38 AM HCT 47.3 05/10/2024 08:23 AM HCT 37.6 (L) 05/30/2020 07:38 AM PLT 168 05/10/2024 08:23 AM PLT 269 05/30/2020 07:38 AM Coagulation studies: Lab Results Component Value Date/Time INR 1.2 05/10/2024 03:35 AM Chemistry: Lab Results Component Value Date/Time BUN 31 (H) 05/10/2024 08:23 AM BUN 19 04/14/2020 07:11 AM CREAT 2.0 (H) 05/10/2024 08:23 AM CREAT 1.4 (H) 04/14/2020 07:11 AM GFRESTIMATED 48.4 (L) 04/14/2020 07:11 AM NA 135 05/10/2024 08:23 AM NA 134 (L) 04/14/2020 07:11 AM POTASSIUM 4.4 05/10/2024 08:23 AM POTASSIUM 5.0 04/14/2020 07:11 AM CO2 21 (L) 05/10/2024 08:23 AM CO2 25 04/14/2020 07:11 AM Imaging studies: No new images Problem list: Principal Problem: Acute ischemic left MCA stroke (HCC) Active Problems: HTN, goal below 140/90 Gastroesophageal reflux disease without esophagitis Type 2 diabetes mellitus with stage 3a chronic kidney disease, without long-term current use of insulin (HCC) Hypertensive kidney disease with stage 3a chronic kidney disease (HCC) Dyslipidemia, goal LDL below 70 Stroke with cerebral ischemia (HCC) Left carotid stenosis Right hemiparesis (HCC) Mixed aphasia Gait abnormality Impaired mobility and ADLs Resolved Problems: * No resolved hospital problems. * CLINICAL HISTORY AND PLAN: 84 year old, male with a past medical history significant for T2 dm, GERD, and arthritis; patient presenting with right hemiparesis, right facial droop, and aphasia concerning for a left MCA stroke; CTA showing severe left ICA origin stenosis requiring emergent intervention. Now s/p LICA stent (05/09/2024, Dr. Nelson) q1h neuro checks, vitals SBP goal < 160 bASA/Plav75 ARU/PRU therapeutic 12/16 am ARU/PRU levels again today Ok for SQH MRI complete - multiple small L acute infarcts. stroke care per neurology The author of this note may not be temperature control inspector at this time. Please check the phonebook for the neurosurgery first call for any additional questions. Patient was discussed with attending physician I saw and evaluated the patient today. I have reviewed the resident/fellow physician note and agree. I saw and evaluated the patient today. I have reviewed the resident/fellow physician note and agree. * Ancillary Progress Note - Marilyn Peoples MSW - 05/10/2024 2:38 PM EST CARE MANAGEMENT - ADULT INIT[place] [facility] [address] Name: Fabien Little Jr. [place] [facility] [place] Date: 05/10/2024 Time: 2:38 PM Discussed patient with the interdisciplinary care team. This [employer]oples[employer] Taleo Manager performed a chart review and met with patient's daughter and extended family in waiting room by request of patient's daughterto complete admission screen and assessed needs for transition planning. The home care aide role and services were explained and emotional support was provided. Chief Complaint: Neuro Deficit/Stroke/TIA Prior Living Arrangements What was your living situation prior to admission/observation?: Independently;Alone (05/10/241436) Living Quarters: Apartment (05/10/241436) Number of steps to enter living quarters:: elevator (05/10/241436) History of falling: No (05/10/24 0900) Prior Level of Functioning Describe the patient's ability prior to admission/observation to perform ADLs: Performs independently (05/10/241436) Describe the patient's mobility status prior to admission: Patient ambulates independently (05/10/241436) Caregiver Information Emergency Contacts Name Relation Home Work Mobile Marcia Urban Adult Child [phone] Other Contacts Name Relation Home Work Mobile Kirti Tamayo Adult Child [phone] Risk Stratification/Psychosocial/Care Gaps Risk Stratification Psycho Social / Medical Concerns Identified: Adjustment to illness/injury (05/10/241436) OBRA or OPTIONS needed for placement: No (05/10/241436) Readmission Risk Score: 18 (05/10/24 1201) Prior to Admission Services Services Prior to Admission [facility] Services (Services received within the last 30 days with exception, Psych within last two years): N/A (05/10/241436) [place] Dept. of Aging (PDA) Waiver Program: N/A (05/10/241436) [facility] [facility] Transportation (Services received within the last 30 days): Family/Friends Personal Vehicle;Patient drives self (05/10/241436) Outpatient Peoples[employer] Taleo Manager: Patient Care Team: Marian Matthews RN as Auction Block Clerk (Registered Nurse) Patient/Family Expectations: Prior to admission, patient lived alone in an apartment with elevator access. Pt is independent with ADLs and ambulation at baseline. Pt's daughter lives in [place] and reports she will be here in [place] until Friday. Pt's daughter gave SW additional contacts to add to patient's chart in the event she cannot be reached. Contacts added to chart. Per patient's daughter, no HH services or SNF/IRF stays. Patient does have OP CM; Marian, through [facility] [employer] program. Messagesent to Marian making her aware of admission. Pt's daughter inquiring about potential need for rehab@ d/c. SW explained that once PT/OT evaluates patient; rehab needs will be more well known. SW explained SNF vs IRF LOC and reported that she will provide daughter with list of facilities once needs more well known. For further screening information, please refer to the Care Management flow document. * Ancillary Progress Note - Josh Giles Chaplain - 05/10/2024 11:18 AM EST PROGRESS NOTE - Spiritual Care Contact Information [facility] [place] [place] [address] [place] [address] Name: Fabien Little Jr. [place] [facility] [place] Date: 05/10/2024 Time: 11:18 AM Restoration: No Mu-Ism Pref [66] Mu-Ism Affiliations: REASON FOR VISIT: rounding REQUEST RECEIVED FROM: rounding VISIT LENGTH: 20 mins REQUEST FACTORS (Nature of Situation): Follow-up Visit FOCUS OF CARE: Patient SPIRITUAL ASSESSMENT: Rajani or Belief System: Did not identify Most Important Need(s) / Concern(s): Did not identify Sense of Community and/or Mu-Ism Affiliation: Did not identify Addresses need(s)/concerns(s) and/or kasia through: Did not identify SPIRITUAL CARE PROVIDED: Medicine Technologist addressed needs/concerns and/or coping through: Prayer REFERRAL TO: Medicine Technologist OUTCOMES: Comfort/Healing Presence ANNOTATION: I visited patient who could not verbalize well, I prayed with him. Will follow up as needed or requested. * Pt Handout (on AVS) - THOR, PATIENT HANDOUT - 05/10/2024 10:49 AM EST Images from the original note were not included. 63081 What Is Ischemic Stroke? The brain needs a constant supply of blood to work. During a stroke, blood stops flowing to part ofthe brain. The affected area is damaged. Its functions are harmed or even lost. Most strokes are caused by a blockage in a blood vessel that supplies the brain. This is an ischemic stroke. They can also occur if a blood vessel in the brain ruptures (hemorrhagic stroke). The carotids are large arteries that carry blood from the heart to the brain. From the heart to the brain The heart is a pump. It sends oxygen-rich blood out through blood vessels called arteries. If an artery between the heart and the brain is blocked, the brain can?t get enough oxygen. Some artery blockages are caused by fatty deposits (plaque). Arteries can also be blocked by blood clots. Some clotsform on the plaque. Others can form in the heart?especially in people with atrial fibrillation, an irregular heart rhythm. If a piece of plaque or clot breaks off and enters the bloodstream, it can block flow to the brain and cause a stroke. How a stroke occurs Ischemic stroke occurs when an artery that supplies the brain is greatly narrowed or blocked. This can be caused by a buildup of plaque. It can also occur when small pieces of plaque or blood clot (emboli) break off from the blood vessel or heart into the bloodstream. The emboli flow in the blood until they get stuck in a small blood vessel that limits blood flow to the brain. Healthy arteries. In a healthy artery, the lining of the artery wall is smooth. This lets blood flow freely from the heart to the rest of the body. The brain gets all the blood it needs to function well. Damaged arteries. High blood pressure, cigarette smoking, high cholesterol, or other problems can roughen artery garrison. This allows plaque to build up in the garrison. Blood clots may also form on the plaque. This can narrow the artery and limit blood flow. Healthy arteries Damaged arteries Know the symptoms of a stroke Weakness. You may feel a sudden weakness, tingling, or a loss of feeling on one side of your face or body including your arm or leg. Vision problems. You may have sudden double vision or trouble seeing in one or both eyes. Speech problems. You may have sudden trouble talking, slurred speech, or problems understanding others. Movement problems. You may have sudden trouble walking, dizziness, a feeling of spinning, a lossof balance, a feeling of falling, or blackouts. Remember: If you have any of these symptoms, call 911 and your doctor as soon as possible. B.E. F.A.S.T. is an easy way to remember the signs of a stroke. When you see the signs, you will know what you need to call 911 fast. B.E. F.A.S.T. stands for: B is for balance. Sudden loss of balance or coordination. E is for eyes. Vision changes in one or both eyes. F is for face drooping. One side of the face is drooping or numb. When the person smiles, the smile is uneven. A is for arm weakness. One arm is weak or numb. When the person lifts both arms and the same time, one arm may drift downward. S is for speech difficulty. You may notice slurred speech or trouble speaking. The person can't repeat a simple sentence correctly when asked. T is for time to call 911. If someone shows any of these symptoms, even if they go away, call 911 right away. Make note of the time the symptoms first appeared. Last Reviewed Date: 2023 00:00:00 3547-6059 [employer]. All rights reserved. This information is not intended as a substitute for professional medical care. Always follow your healthcare professional's instructions. * Pt Handout (on AVS) - THOR, PATIENT HANDOUT - 05/10/2024 10:49 AM EST Images from the original note were not included. 30554 Symptoms of a Stroke During a stroke, blood stops flowing to part of the brain or there is bleeding in the brain. This can damage areas in the brain that control the rest of the body. A stroke can happen to anyone at anyage. Call 911 and get help right away if any of these symptoms come on suddenly, even if the symptoms don?t last. Know the symptoms of a stroke A sudden feeling of weakness on one side of your body may be a sign that you are having a stroke. Weakness. You may feel a sudden weakness, tingling, or a loss of feeling on one side of your face or body including your arm or leg. Vision problems. You may have sudden double vision or trouble seeing in one or both eyes. Speech problems. You may have sudden trouble talking, slurred speech, or problems understanding others. Headache. You may have a sudden, severe headache. Movement problems. You may have sudden trouble walking, dizziness, a feeling of spinning, a lossof balance, a feeling of falling, or blackouts. Seizure. You may also have a seizure as the first symptom of a stroke. When to call 911 Remember: If you have any of these symptoms, or if someone you are with has these symptoms, call 911 as soon as possible. Never drive yourself or the person with symptoms to the hospital. The ambulance can alert the hospital and start treatment right away. B.E. F.A.S.T. is an easy way to remember the signs of a stroke. When you see these signs, you will know that you need to call 911 fast. B.E. F.A.S.T. stands for: B is for balance. Sudden loss of balance or coordination. E is for eyes. Vision changes in one or both eyes. F is for face drooping. One side of the face is drooping or numb. When the person smiles, the smile is uneven. A is for arm weakness. One arm is weak or numb. When the person lifts both arms at the same time, one arm may drift downward. S is for speech difficulty. You may notice slurred speech or difficulty speaking. The person can't repeat a simple sentence correctly when asked. T is for time to dial 911. If someone shows any of these symptoms, even if they go away, call 911 right away. Make note of the time the symptoms first appeared. Last Reviewed Date: 2024 00:00:00 4406-3360 [employer]. All rights reserved. This information is not intended as a substitute for professional medical care. Always follow your healthcare professional's instructions. * Pt Handout (on AVS) - THOR PATIENT HANDOUT - 05/10/2024 10:49 AM EST 72832 Risk Factors for Stroke Certain health and lifestyle issues?called risk factors?increase your chances of having a stroke. The biggest risk factor for stroke is high blood pressure. But there are many other factors that alsoput you at risk. The list below can help you identify which risk factors you have. That way, you know where you need to make healthy changes. Talk with your healthcare provider about ways to help redu ce your risk factors. What are your risk factors? Risk factors are different for each person. Check off the factors that apply to you. Keep in mind that some factors, such as your age, can?t be changed. But others can be managed. Health risk factors You have high blood pressure. You?re overweight. You have unhealthy cholesterol levels. You have atrial fibrillation. You have atrial flutter. You?ve had a heart attack. You have narrowed arteries. You have diabetes. You are a man. You are an . You are an . You are an . Lifestyle risk factors You rarely exercise. You often eat salty, fried, or greasy foods. You smoke. You have more than 2 alcoholic drinks per day. Age and family history You?re over age 60. A parent, brother, or sister has had a stroke. Metabolic syndrome Any of the factors above may put you at increased risk for stroke. But having 3 or more of 5 certain risk factors raises your risk more. This is a condition called metabolic syndrome. These factors include: Too much weight around your waist (or apple shaped body) High blood pressure High blood sugar Low levels of HDL (good) cholesterol levels High levels of triglycerides If you're a woman, your risks may also include polycystic ovary syndrome. If you have any of these risk factors, be sure to talk with your provider about how to decrease your risk of stroke and improve your overall health. Last Reviewed Date: 2023 00:00:00 8914-6982 [employer]. All rights reserved. This information is not intended as a substitute for professional medical care. Always follow your healthcare professional's instructions. * Pt Handout (on AVS) - THOR PATIENT HANDOUT - 05/10/2024 10:49 AM EST 52367 Discharge Instructions for Stroke You have a high risk for a stroke, or a TIA (transient ischemic attack). During a stroke, blood stops flowing to part of your brain. This can damage areas in the brain that control other parts of thebody. Symptoms from a stroke depend on which part of the brain has been affected. Stroke risk factors Once you?ve had a stroke, you?re at greater risk for another one. Listed below are some other factors that can raise your risk for a stroke: High blood pressure High cholesterol Cigarette or cigar smoking Diabetes Carotid or other artery disease Atrial fibrillation, atrial flutter, or other heart disease Not being physically active Obesity Certain blood disorders, such as sickle cell anemia Drinking too much alcohol Abusing street drugs Race Gender Family history of stroke Diet high in salty, fried, or greasy foods Changes in daily living Doing some everyday tasks may be hard after you?ve had a stroke. But you can learn new ways to manage. In fact, doing daily activities may help you to regain muscle strength. This can help your affected arm or leg work more normally. Be patient. Give yourself time to adjust. And appreciate the progress you make. Daily activities You may be at risk of falling. Make changes to your home to help you walk more easily. A therapist will decide if you need an assistive device, such as a cane or walker, to walk safely. You may need to see an occupational therapist (OT). Or you may see a physical therapist (PT). Thesehealthcare providers can help you to learn new ways of doing things. For example, you may need to make changes in how you bathe or dress. You may also need a speech therapist. This is someone who helps you speak normally again and be able to swallow. Tips for showering or bathing Test the water temperature with a hand or foot that was not affected by the stroke. Use grab bars, a shower seat, a handheld showerhead, and a long-handled brush. Use any other device as advised by your therapists. Tips for getting dressed Dress while sitting, starting with the affected side or limb. Wear shirts that pull easily over your head. Wear pants or skirts with elastic waistbands. Use zippers with loops attached to the pull tabs. Lifestyle changes Take your medicines exactly as directed. Don?t skip doses. Begin an exercise program. Ask your provider how to get started. Ask how much activity you should try to get every day or week. You can benefit from simple activities such as walking or gardening. Limit how much alcohol you drink. Control your cholesterol level. Follow your provider?s advice about how to do this. If you are a smoker, quit now. Join a stop-smoking program to improve your chances of success. Ask your provider about medicines or other methods to help you quit. Learn stress management methods. These can help you deal with stress in your home and work life. Diet Your healthcare provider will guide you on changes you may need to make to your diet. They may advise that you see a registered dietitian for help with changes. The changes can improve your cholesterol, blood pressure, and blood sugar. Changes may include: Reducing the amount of fat and cholesterol you eat Reducing the amount of salt (sodium) in your diet, especially if you have high blood pressure Eating more vegetables and fruits Eating more lean proteins, such as fish, poultry, and beans and peas (legumes) Eating less red meat and processed meats Using low-fat dairy products Limiting vegetable oils and nut oils Limiting sweets and processed foods such as chips, cookies, and baked goods Not eating trans fats. These are often found in processed foods. Don't eat any food that has hydrogenated oils listed in its ingredients. Follow-up care Keep your medical appointments. Close follow-up is important to stroke rehabilitation and recovery. Some medicines require blood tests to check for progress or problems. Keep follow-up appointments for any blood tests ordered by your providers. Call 911 Call 911 right away if you have any of the following symptoms of stroke: Weakness, tingling, or loss of feeling on one side of your face or body Sudden double vision or trouble seeing in one or both eyes Sudden trouble talking or slurred speech Trouble understanding others Sudden, severe headache Dizziness, loss of balance, or a sense of falling Blackouts or seizures B.E. F.A.S.T. is an easy way to remember the signs of stroke. When you see these signs, you know that you need to call 911 fast. B.E. F.A.S.T. stands for: B is for balance. Sudden loss of balance or coordination. E is for eyes. Vision changes in one or both eyes. F is for face drooping. One side of the face is drooping or numb. When the person smiles, the smile is uneven. A is for arm weakness. One arm is weak or numb. When the person lifts both arms at the same time, one arm may drift downward. S is for speech difficulty. You may notice slurred speech or trouble speaking. The person can't repeat a simple sentence correctly when asked. T is for time to call 911. If someone shows any of these symptoms, even if they go away, call 911 right away. Make note of the time the symptoms first appeared. Last Reviewed Date: 2021 00:00:00 [id number] [employer]. All rights reserved. This information is not intended as a substitute for professional medical care. Always follow your healthcare professional's instructions. * Progress Notes - Post-Op Devendra - Crispin Nelson MD - 05/10/2024 10:03 AM EST NEUROLOGICAL SURGERY PROGRESS [place] [facility] [place] [address] Name: Fabien Little Jr. [place] [facility] [place] Date: 05/10/2024 Time: 10:05 AM SUBJECTIVE: ARU/PRU therapeutic. Can d/c heparin drip. MRI complete - multiple small L acute infarcts. OBJECTIVE: Most recent vital signs: BP: 117 mmHg/66 mmHg (05/10/24699) Pulse: 60 (05/10/24699) Resp: 19 (05/10/24699) Temp: 36.22 C (05/10/24799) Temp Summary: Temp Min: 36.1 C (97 F) Max: 37.7 C (99.9 F) SpO2: 93 % (05/10/24699) O2 flow rate: 2 L/MIN (05/10/24799) Supplemental O2 Delivery: Nasal Cannula (05/10/24799) Vital signs over last 24 hours: Systolic BP: Most Recent Systolic BP Av.3 mmHg Min: 81 mmHg Max: 186 mmHg Temperature: Most Recent Temperature Av.7 C Min: 36.11 C Max: 37.72 C Pulse: Pulse Avg: Pulse Av.3 Min: 52 Max: 98 Respirations: Resp Av.8 Min: 12 Max: 31 SpO2: SpO2 Av.3 % Min: 90 % Max: 99 % SpO2: SpO2 Av.3 % Min: 90 % Max: 99 % FiO2%: O2 % Av % Min: 28 % Max: 28 % ICP: No data found.CPP (adult): No data found.Intake Input/Output: (last 24 hours) Intake/Output Summary (Last 24 hours) at 05/10/2024 1005 Last data filed at 05/10/2024 0800 Gross per 24 hour Intake 426.05 ml Output 485 ml Net -58.95 ml Wound Care: clean, dry, intact Neurologic Examination [place] Coma Scale (GCS): Eyes Open: 4 = spontaneous Best Verbal Response: 4 = disoriented, inappropriate, cries Best Motor Response: 6 = obeys commands appropriate for age Awake, alert, oriented to person PERRL EOMI R facial droop RUE 0/5 LUE 5/5 RLE 4/5 LLE 5/5 Sensation diminished R side LABS: Blood count: Lab Results Component Value Date/Time WBC 10.38 05/10/2024 08:23 AM WBC 6.93 05/30/2020 07:38 AM HGB 15.1 05/10/2024 08:23 AM HGB 12.8 (L) 05/30/2020 07:38 AM HCT 47.3 05/10/2024 08:23 AM HCT 37.6 (L) 05/30/2020 07:38 AM PLT 168 05/10/2024 08:23 AM PLT 269 05/30/2020 07:38 AM Coagulation studies: Lab Results Component Value Date/Time INR 1.2 05/10/2024 03:35 AM Chemistry: Lab Results Component Value Date/Time BUN 31 (H) 05/10/2024 08:23 AM BUN 19 04/14/2020 07:11 AM CREAT 2.0 (H) 05/10/2024 08:23 AM CREAT 1.4 (H) 04/14/2020 07:11 AM GFRESTIMATED 48.4 (L) 04/14/2020 07:11 AM NA 135 05/10/2024 08:23 AM NA 134 (L) 04/14/2020 07:11 AM POTASSIUM 4.4 05/10/2024 08:23 AM POTASSIUM 5.0 04/14/2020 07:11 AM CO2 21 (L) 05/10/2024 08:23 AM CO2 25 04/14/2020 07:11 AM Imaging studies: No new images Problem list: Principal Problem: Acute ischemic left MCA stroke (HCC) Active Problems: HTN, goal below 140/90 Gastroesophageal reflux disease without esophagitis Type 2 diabetes mellitus with stage 3a chronic kidney disease, without long-term current use of insulin (HCC) Hypertensive kidney disease with stage 3a chronic kidney disease (HCC) Dyslipidemia, goal LDL below 70 Stroke with cerebral ischemia (HCC) Left carotid stenosis Right hemiparesis (HCC) Mixed aphasia Resolved Problems: * No resolved hospital problems. * CLINICAL HISTORY AND PLAN: 84 year old, male with a past medical history significant for T2 dm, GERD, and arthritis; patient presenting with right hemiparesis, right facial droop, and aphasia concerning for a left MCA stroke; CTA showing severe left ICA origin stenosis requiring emergent intervention. Now s/p LICA stent (05/09/2024, Dr. Nelson) q1h neuro checks, vitals SBP goal < 160 bASA/Plav75 ARU/PRU therapeutic 12/16 am D/c heparin gtt MRI complete - multiple small L acute infarcts. stroke care per neurology The author of this note may not be temperature control inspector at this time. Please check the phonebook for the neurosurgery first call for any additional questions. Patient was discussed with attending physician I saw and evaluated the patient today. I have reviewed the resident/fellow physician note and agree. * Ancillary Progress Note - Angela Goel CCC-BENCH WORKER APPRENTICE - 05/10/2024 8:49 AM EST PROGRESS NOTE - Speech-Language Pathology [facility] [place] [address] Name: Fabien Little Jr. [place] [facility] [place] Date: 05/10/2024 Time: 8:49 AM Patient Status: Inpatient Insurance: Payor: [facility] GOLD / Plan: P GOLD PREFERRED ENHANCED MP-DD / Product Type: *No Product type* / Patient Age: [age] year old Attempted to see pt for bedside swallow evaluation. Per RN, pt not appropriate fd/t cognitive status - unable to awaken despite maximal painful stimuli. Will f/u and complete evaluation as pt appropriate/available and as able. * Care Plan - Nelli Garcia RN - 05/10/2024 7:46 AM EST Clinical Goal(s): SBP<160 (05/09/241999) Possible barriers to meeting goal(s)/advancing plan of care: pt's agitation and fluctuation in RASSscores ranging from -4 to 3+ (the more agitated the pt was the higher and more labile his BP was while also depending on what he could tolerate with his precedex gtt. Stability of the patient: Unstable - high likelihood or risk of patient condition declining or worsening Summary regarding today's goal(s): Not Met: pt BP was on and off maintaining a goal of <160 during this shift Recommendations: Titrate precedex to find a rate that he will tolerate. Precedex at .4 resulted in patient with a RASS of +3 when it was at 0.6 the pt was at a RASS of -3 to -4 at times which in turncorrelated to the patients spike in BP. Continue labetalol Q1 while alos using hydralizine and managing patients pain * Progress Notes - Non-Billable - Fred Medrano PA-C - 05/09/2024 10:21 PM EST [facility] Progress Note: Pt evaluated at change of shift, pt unresponsive. Eyes perrl, not following commands, not waking up, not really moving to painful stimulus. Breathing slightly labored. Precedex infusion on, LTM pending. Precedex infusion now off, LTM read now pending. Due to decrease mental status Pt sent for CTH, read pending. After 2 hours, Pt starting to wake up, moan, follow commands and become agitated. Likely sedation related mental status, will use lower dose precedex and will try to find best dosing to prevent the above from happening again. Dr. Harris made aware. Cosigned by Gene Harris MD at 05/10/2024 12:01 AM EST * Ancillary Progress Note - Angela Goel CCC-BENCH WORKER APPRENTICE - 05/09/2024 9:06 AM EST PROGRESS NOTE - Speech-Language Pathology [facility] [address] Name: Fabien Little Jr. Location: 1/1 Date: 05/09/2024 Time: 9:06 AM Patient Status: Inpatient Insurance: Payor: [facility] [employer] / Plan: [facility] [employer] PREFERRED ENHANCED MP-DD / Product Type: *No Product type* / Patient Age: [age] year old Consult received and appreciated. Pt currently intubated. Will f/u and complete evaluation as appropriate/able s/p extubation. * Medical Necessity - Sonali Mandel RN - 05/09/2024 8:34 AM EST AdmissionCare Guideline: Stroke (Ischemic), Inpatient Based on the indications selected for the patient, the bed status of Inpatient was determined to beMET The following indications were selected as present at the time of evaluation of the patient: - Clinical Indications for Admission to Inpatient Care - Admission is indicated for 1 or more of the following: - Thrombolysis or thrombectomy performed or planned Additional Information: Procedures: PERCUTANEOUS ARTERIAL TRANSLUMINAL MECHANICAL THROMBECTOMY AND/OR INFUSION OF THROMBOLYSIS,INTRACRANIAL,& METHOD INCLUDING DIAGNOSTIC ANGIO AdmissionCare documentation entered by: Sonali Mandel [facility] [employer], 28th edition, Copyright 2023 [facility] [employer] [facility] All Rights Reserved. [id number] Solely for purpose of utilization review and payment; not a diagnostic tool * Communication - Mel Walls DO - 05/09/2024 8:13 AM EST I spoke with the patient's [id number] and updated her about the arrival of the patient to our emergency department. She states that her father would like to be a DNR DNI but would be willing to undergo intubation temporarily for surgical procedures if necessary. She was states her father would not want to live on life support or on a ventilator. She was states that he would be okay to receive IV antibiotics, temporary feeding through a tube, and artificial fluids. * Ancillary Progress Note - Josh Pham Chaplain - 05/09/2024 7:27 AM EST PROGRESS NOTE - Spiritual Care EMERGENCY DEPARTMENT ALERTS Stroke Alert Contact Information [address] [address] Name: Fabien Little Jr. Location: Date: 05/09/2024 Time: 7:27 AM Restoration: No Mu-Ism Pref [66] Mu-Ism Affiliations: REASON FOR CONTACT: Emergency Department Alert Response TYPE OF ALERT: Stroke Alert TIME OF ALERT: 06 CONTACT LENGTH: 30 min IDENTIFICATION STATUS: identified - on arrival Patient Name: Fabien Little Jr Address: [address] [place] [id number] Date of : 40 Source of Information:Hospital Records Confirmed By: Name - Fabien Little III via phone Relationship to Patient - son EMERGENCY CONTACT INFORMATION: EMERGENCY CONTACT 1: Name: Fabien Little III Relationship: son Phone Numbers - Home: xxx Work: xxx Time of Contact: approx. 0725 ADDITIONAL EMERGENCY CONTACT: Name: Marcia TRIVEDI Relationship: dtr Phone Numbers - Home: xxx Work: xxx Time of Contact: N/A ANNOTATION: responded to Stroke alert for pt arriving at ED via chopper from [facility]. Pt was unavailable on arrival to query and was taken immediately to CT scan. provided silent prayer for staff and pt, and family(not present). Called pt's son(Fabien GONZALEZ @ [phone]) who said he would not arrrive at [facility] until afternoon today. He requested that his sister be the main point person moving forward as she is the POA for pt. Fabien GONZALEZ then notified Marcia of pt's arrival at [facility] REFERRED TO : Duty; Date - 05/09/24; Time - 0800 documented in this encounter Plan of Treatment Upcoming Encounters Date Type Department Care Team (Late st Contact Info) Description 05/18/2024 5:20 AM EST Laboratory Lab Mobile Phlebotomy [facility] [address] [facility] [place] [address] [facility] [address] 05/24/2024 1:40 PM EST Office Visit Family Practice [address] [facility] [address] [place] [address] Art Cavazos, [address] [place] [address] 05/31/2024 11:00 AM EST Therapy Neuropsychology [facility] [address] [place] [address] Enrique Kay, PhD [address] [place] [address] 06/16/2024 12:30 PM EST Telemedicine Neurosurgery, [facility] [address] [place], [place] [id number] Crispin Nelson MD [address] [place], [place] [id number] 07/09/2024 3:00 PM EST Telemedicine Neurology [address] [place] [address] Jose Ramos MD [address] [place] [address] Ruben Aleman [place] 65 [facility] [address] [place] [address] 08/02/2024 1:00 PM EDT Office Visit Family Practice [address] [facility] 293 [place] [phone] Art Cavazos DO 293 [place] [address] 10/15/2024 2:00 PM EDT Nurse Only Family Practice [address] [facility] [address] [place] [phone] Sonali Echeverria, RITCHIE [address] [place] [address] 11/01/2024 2:20 PM EDT Office Visit Nephrology, [facility] 200 [place] [address] Baldo Mackey MD 200 [place] [address] 12/03/2024 2:00 PM EDT Office Visit Rheumatology [facility] [address] [place] [address] Sarah Stroud CRNP [address] [place] [address] Scheduled Orders Name Type Priority Associated Diagnoses Orde r Schedule EKG EKG Routine Stroke (HCC) One Time for 1 Occurrences starting 05/09/2024 until 05/09/2024 EXTERNAL EKG 8 TO 15 DAYS Holter Routine Stroke with cerebral ischemia (HCC) Expected: 05/17/2024 (Approximate), Expires: 05/16/2025 Scheduled Procedures Name Priority Associated Diagnoses Date/Ti [...] Additional history exists CKD HGB USE SMARTSET 24678 05/12/202505/12, 05/11/2024, 05/11/2024, Additional history exists CKD PHOS USE SMARTSET 96170 05/17/202504/26, 05/16/2024, 05/15/2024, Additional history exists DTap/Tdap Vaccines [...] this encounter Medical Devices Implanted Type Area Professor Of Floriculture Device Identifier Shelf Expiration Date Model / Serial / Lot Stent 7x40 Precise [id number] - [id number] Implanted:Qty : 1 on 05/09/2024 by Crispin Nelson MD [place] [facility] Left: Carotid [facility] [id number] 01/23/2026 [id number] / / [id number] documented as of this encounter Procedures Procedure Name Priority Date/Time Associated Diagnosis Comments RENAL FUNCTION PANEL Routine 05/17/2024 8:26 AM EST GLUCOSE METER, POINT OF CARE JOHN 05/16/2024 9:12 PM EST GLUCOSE METER, POINT OF CARE JOHN 05/16/2024 4:55 PM EST GLUCOSE METER, POINT OF CARE JOHN 05/16/2024 11:52 AM EST GLUCOSE METER, POINT OF CARE JOHN 05/16/2024 8:01 AM EST RENAL FUNCTION PANEL Routine 05/16/2024 7:10 AM EST GLUCOSE METER, POINT OF CARE JOHN 05/15/2024 9:23 PM EST GLUCOSE METER, POINT OF CARE JOHN 05/15/2024 5:22 PM EST GLUCOSE METER, POINT OF CARE JOHN 05/15/2024 12:31 PM EST RENAL FUNCTION PANEL Routine 05/15/2024 9:22 AM EST GLUCOSE METER, POINT OF CARE JOHN 05/15/2024 8:26 AM EST XR ABDOMEN 1 VIEW Routine 05/15/2024 1:1 0 AM EST Encounter for fitting and adjustment of other gastrointestinal appliance and device GLUCOSE METER, POINT OF CARE JOHN 05/14/2024 8:58 PM EST XR ABDOMEN 1 VIEW STAT 05/14/2024 7:3 7 PM EST Encounter for fitting and adjustment of other gastrointestinal appliance and device GLUCOSE METER, POINT OF CARE JOHN 05/14/2024 5:[address] HEAD/BRAIN WO CONTRAST STAT 05/14/2024 1:15 PM EST GLUCOSE METER, POINT OF CARE JOHN 05/14/2024 11:51 AM EST GLUCOSE METER, POINT OF CARE JOHN 05/14/2024 7:50 AM EST RENAL FUNCTION PANEL Routine 05/14/2024 7:36 AM EST GLUCOSE METER, POINT OF CARE JOHN 05/13/2024 9:01 PM EST GLUCOSE METER, POINT OF CARE [facility] 05/13/2024 4:51 PM EST GLUCOSE METER, POINT OF CARE [facility] 05/13/2024 12:13 PM EST RENAL FUNCTION PANEL Routine 05/13/2024 7:47 AM EST GLUCOSE METER, POINT OF CARE [facility] 05/13/2024 7:31 AM EST GLUCOSE METER, POINT OF CARE [facility] 05/12/2024 9:16 PM EST GLUCOSE METER, POINT OF CARE [facility] 05/12/2024 4:04 PM EST XR ABDOMEN 1 VIEW STAT 05/12/2024 1:1 4 PM EST Encounter for fitting and adjustment of other gastrointestinal appliance and device GLUCOSE METER, POINT OF CARE JOHN 05/12/2024 11:10 AM EST GLUCOSE METER, POINT OF CARE JOHN 05/12/2024 8:38 AM EST BASIC METABOLIC PANEL Routine 05/12/2024 6:09 AM EST PT INR Routine 05/12/2024 6:09 AM EST PHOSPHORUS STAT 05/12/2024 6:09 AM EST CALCIUM, IONIZED STAT 05/12/2024 6:09 AM EST CBC STAT 05/12/2024 6:09 AM EST MAGNESIUM STAT 05/12/2024 6:09 AM EST GLUCOSE METER, POINT OF CARE JOHN 05/11/2024 9:51 PM EST GLUCOSE METER, POINT OF CARE JOHN 05/11/2024 5:02 PM EST VASC [place] [employer] LE STAT 05/11/2024 3:36 PM EST TEG (THOMROBOELASTOGRAPH ) PANEL Routine 05/11/2024 2:59 PM EST TEG (THROMBOELASTOGRAPH) , HEPARINASE Routine 05/11/2024 2:59 PM EST TEG (THROMBOELASTOGRAPH) Routine 05/11/2024 2:59 PM EST CBC STAT 05/11/2024 2:58 PM EST GLUCOSE METER, POINT OF CARE JOHN 05/11/2024 12:10 PM EST HC ECG TRACING ONLY Routine 05/11/2024 10:14 AM EST Electrolyte abnormality GLUCOSE METER, POINT OF CARE JOHN 05/11/2024 10:02 AM EST P2Y12 INHIBITOR REACTIVITY (CLOPIDOGREL), VERIFYNOW Routine 05/11/2024 9:18 AM EST ASPIRIN, VERIFYNOW Routine 05/11/2024 9: 18 AM EST BASIC METABOLIC PANEL Add-on 05/11/2024 7:17 AM EST PT INR Routine 05/11/2024 7:17 AM EST PHOSPHORUS STAT 05/11/2024 7:17 AM EST CALCIUM, IONIZED STAT 05/11/2024 7:17 AM EST CBC STAT 05/11/2024 7:17 AM EST MAGNESIUM STAT 05/11/2024 7:17 AM EST BASIC METABOLIC PANEL Routine 05/10/2024 8:23 AM EST CBC Routine 05/10/2024 8:23 AM EST HEPARIN, UNFRACTIONATED STAT 05/10/2024 6:58 AM EST MRI BRAIN WITHOUT CONTRAST STAT 05/10/2024 5:15 AM EST ASPIRIN, VERIFYNOW STAT 05/10/2024 3: 39 AM EST P2Y12 INHIBITOR REACTIVITY (CLOPIDOGREL), VERIFYNOW STAT 05/10/2024 3:35 AM EST PT INR Routine 05/10/2024 3:35 AM EST PHOSPHORUS STAT 05/10/2024 3:35 AM EST CALCIUM, IONIZED STAT 05/10/2024 3:35 AM EST CBC STAT 05/10/2024 3:35 AM EST MAGNESIUM STAT 05/10/2024 3:35 AM EST HEPARIN, UNFRACTIONATED STAT 05/10/2024 1:14 AM EST EEG [facility] Routine 05/10/2024 CT HEAD/BRAIN WO CONTRAST Routine 05/09/2024 10:01 PM EST Cerebral edema (HCC) Other specified disorders of brain Other abnormal findings on diagnostic imaging of central nervous system WHOLE BLOOD PROFILE, VENOUS STAT 05/09/2024 9:21 PM EST HEPARIN, UNFRACTIONATED STAT 05/09/2024 6:47 PM EST XR ABDOMEN 1 VIEW STAT 05/09/2024 6:1 1 PM EST Encounter for fitting and adjustment of other gastrointestinal appliance and device ECHO, COMPLETE (2D), TRANS-THORACIC Routine 05/09/2024 1:38 PM EST Stroke (HCC) NEURO IR IMAGING Routine 05/09/2024 12:[address] HEAD/BRAIN WO CONTRAST STAT 05/09/2024 12:32 PM EST HC ECG TRACING ONLY STAT 05/09/2024 11:27 AM EST Nausea MRSA SCREEN, PCR Routine 05/09/2024 11:16 AM EST HEPARIN, UNFRACTIONATED STAT 05/09/2024 10:27 AM EST PT INR STAT 05/09/2024 10:27 AM EST APTT STAT 05/09/2024 10:27 AM EST CBC STAT 05/09/2024 10:27 AM EST ACT, POINT OF CARE JOHN 05/09/2024 9: 27 AM EST ACT, POINT OF CARE JOHN 05/09/2024 9: 17 AM EST XR CHEST 1 VIEW STAT 05/09/2024 8:13 AM EST CAROTID (EXTERNAL) ARTERY CATHETHER PLACEMENT 05/09/2024 8:11 AM EST Stroke with cerebral ischemia (HCC) VERTEBRAL ARTERY CATHETER PLACEMENT 05/09/2024 8:11 AM EST Stroke with cerebral ischemia (HCC) CAROTID (INTERNAL) ARTERY CATHETHER PLACEMENT 05/09/2024 8:11 AM EST Stroke with cerebral ischemia (HCC) PC PERC ARTERIAL TRANSLUMINAL MECHANICAL THROMBECTOMY/INFUSIO N THROMBOLYSIS INTRACRANIAL W ANG/FLUO 05/09/2024 8:11 AM EST Stroke with cerebral ischemia (HCC) DIFFERENTIAL, AUTOMATED STAT 05/09/2024 7:54 AM EST TROPONIN T, HIGH SENSITIVITY STAT 05/09/2024 7:54 AM EST LIPID PANEL WITH DIRECT LDL IF TG IS HIGH Add-on 05/09/2024 7:54 AM EST HEMOGLOBIN A1C Add-on 05/09/2024 7:54 AM EST COMPREHENSIVE METABOLIC PANEL STAT 05/09/2024 7:54 AM EST CBC STAT 05/09/2024 7:54 AM EST PT INR Routine 05/09/2024 7:54 AM EST CBC STAT 05/09/2024 7:54 AM EST RADIOLOGY EXAM - CT (IMAGES ONLY, NO REPORT) Routine 05/09/2024 7:43 AM EST RADIOLOGY EXAM - CT (IMAGES ONLY, NO REPORT) Routine 05/09/2024 7:43 AM EST RADIOLOGY EXAM - CT (IMAGES ONLY, NO REPORT) Routine 05/09/2024 7:43 AM EST RADIOLOGY EXAM - CT (IMAGES ONLY, NO REPORT) Routine 05/09/2024 7:[address] HEAD PERFUSION STROKE ALERT STAT 05/09/2024 7:[address] HEAD/BRAIN WO CONTRAST STROKE ALERT STAT 05/09/2024 7:38 AM EST documented in this encounter Results * (ABNORMAL) RENAL FUNCTION PANEL (05/17/2024 8:26 AM EST) BUN 31(H) 6 - 20 mg/dL 05/17/2024 9:30 AM EST [facility] CREATININE 1.3(H) 0.6 - 1.2 mg/dL 05/17/2024 9:30 AM EST [facility] EGFR 57(L) >=60 mL/min 05/17/2024 9:30 AM EST [facility] Comment:eGFR is calculated b ased on the CKD-EPI 2020 equation. SODIUM 140 135 - 146 mmol/L 05/17/2024 9:30 AM EST [facility] POTASSIUM 4.1 3.5 - 5.1 mmol/L 05/17/2024 9:30 AM EST [facility] CHLORIDE 104 98 - 107 mmol/L 05/17/2024 9:30 AM EST [facility] CO2 22 22 - 32 mmol/L 05/17/2024 9:30 AM EST [facility] ANION GAP 14 7 - 15 mmol/L 05/17/2024 9:30 AM EST [facility] GLUCOSE 124(H) 70 - 120 mg/dL 05/17/2024 9:30 AM EST [facility] CALCIUM 9.6 8.4 - 10.2 mg/dL 05/17/2024 9:30 AM EST [facility] Albumin 3.7(L) 3.8 - 5.0 g/dL 05/17/2024 9:30 AM EST [facility] Phosphorus 4.0 2.5 - 4.8 mg/dL 05/17/2024 9:30 AM EST [facility] Blood Venous blood specimen / Unknown Venipuncture / Unknown 05/17/2024 8:26 AM EST 05/17/2024 8:57 AM EST us Denis Harris MD LAB BLOOD ORDERABLES Stacy l Result [facility] [address] [place] [address] * (ABNORMAL) GLUCOSE METER, POINT OF CARE (05/16/2024 9:12 PM EST) GLUCOSE - POCT 163(H) 70 - 120 mg/dL 05/16/2024 9:16 PM EST [employer] Blood Whole blood specimen / Unknown 05/16/2024 9:12 PM EST 05/16/2024 9:16 PM EST us Paul Mack MD LAB POINT OF CA RE TEST DOCKED DEVICE UNSOLICITED RESULTS Final Result [facility] [address] [place] [address] * GLUCOSE METER, POINT OF CARE (05/16/2024 4:55 PM EST) GLUCOSE - POCT 112 70 - 120 mg/dL 05/16/2024 9:45 PM EST [employer] Blood Whole blood specimen / Unknown 05/16/2024 4:55 PM EST 05/16/2024 9:45 PM EST us Paul Mack MD LAB POINT OF CA RE TEST DOCKED DEVICE UNSOLICITED RESULTS Final Result Performing Organization Address City/[facility]/ZIP Co de Phone Number [facility] [address] [place] [address] * (ABNORMAL) GLUCOSE METER, POINT OF CARE (05/16/2024 11:52 AM EST) GLUCOSE - POCT 162(H) 70 - 120 mg/dL 05/16/2024 12:10 PM EST [employer] Blood Whole blood specimen / Unknown 05/16/2024 11:52 AM EST 05/16/2024 12:10 PM EST us Paul Mack MD LAB POINT OF CA RE TEST DOCKED DEVICE UNSOLICITED RESULTS Final Result [facility] [address] [place] [address] * (ABNORMAL) GLUCOSE METER, POINT OF CARE (05/16/2024 8:01 AM EST) Pathologist [facility] GLUCOSE - POCT 163(H) 70 - 120 mg/dL 05/16/2024 8:05 AM EST [facility] Blood Whole blood specimen / Unknown 05/16/2024 8:01 AM EST 05/16/2024 8:05 AM EST us Paul Mack MD LAB POINT OF CA RE TEST DOCKED DEVICE UNSOLICITED RESULTS Final Result [facility] [address] [place] [address] * (ABNORMAL) RENAL FUNCTION PANEL (05/16/2024 7:10 AM EST) Pathologist [facility] BUN 28(H) 6 - 20 mg/dL 05/16/2024 7:51 AM EST [facility] CREATININE 1.3(H) 0.6 - 1.2 mg/dL 05/16/2024 7:51 AM EST [facility] EGFR 57(L) >=60 mL/min 05/16/2024 7:51 AM EST [facility] Comment:eGFR is calculated b ased on the CKD-EPI 2020 equation. SODIUM 142 135 - 146 mmol/L 05/16/2024 7:51 AM EST [facility] POTASSIUM 3.5 3.5 - 5.1 mmol/L 05/16/2024 7:51 AM EST [facility] CHLORIDE 105 98 - 107 mmol/L 05/16/2024 7:51 AM EST [facility] CO2 23 22 - 32 mmol/L 05/16/2024 7:51 AM EST [facility] ANION GAP 14 7 - 15 mmol/L 05/16/2024 7:51 AM EST [facility] GLUCOSE 134(H) 70 - 120 mg/dL 05/16/2024 7:51 AM EST [facility] CALCIUM 9.4 8.4 - 10.2 mg/dL 05/16/2024 7:51 AM EST [facility] Albumin 3.7(L) 3.8 - 5.0 g/dL 05/16/2024 7:51 AM EST [facility] Phosphorus 3.5 2.5 - 4.8 mg/dL 05/16/2024 7:51 AM EST [facility] Blood Venous blood specimen / Unknown Venipuncture / Unknown 05/16/2024 7:10 AM EST 05/16/2024 7:22 AM EST Denis Harris MD LAB BLOOD ORDERABLES Stacy l Result [facility] [address] [place] [address] * (ABNORMAL) GLUCOSE METER, POINT OF CARE (05/15/2024 9:23 PM EST) GLUCOSE - POCT 136(H) 70 - 120 mg/dL 05/15/2024 9:33 PM EST [employer] Blood Whole blood specimen / Unknown 05/15/2024 9:23 PM EST 05/15/2024 9:33 PM EST Paul Mack MD LAB POINT OF CA RE TEST DOCKED DEVICE UNSOLICITED RESULTS Final Result Performing Organization Address [facility] Co de Phone Number [facility] [address] [place] [address] * (ABNORMAL) GLUCOSE METER, POINT OF CARE (05/15/2024 5:22 PM EST) GLUCOSE - POCT 135(H) 70 - 120 mg/dL 05/15/2024 5:39 PM EST [employer] Blood Whole blood specimen / Unknown 05/15/2024 5:22 PM EST 05/15/2024 5:39 PM EST Paul Mack MD LAB POINT OF CA RE TEST DOCKED DEVICE UNSOLICITED RESULTS Final Result Performing Organization Address City/[facility]/ZIP Co de Phone Number [facility] [address] [place] [address] * (ABNORMAL) GLUCOSE METER, POINT OF CARE (05/15/2024 12:31 PM EST) GLUCOSE - POCT 195(H) 70 - 120 mg/dL 05/15/2024 12:39 PM EST [facility] Blood Whole blood specimen / Unknown 05/15/2024 12:31 PM EST 05/15/2024 12:39 PM EST us Paul aMck MD LAB POINT OF CA RE TEST DOCKED DEVICE UNSOLICITED RESULTS Final Result [facility] [address] [place] [address] * (ABNORMAL) RENAL FUNCTION PANEL (05/15/2024 9:22 AM EST) BUN 27(H) 6 - 20 mg/dL 05/15/2024 10:25 AM EST [facility] CREATININE 1.1 0.6 - 1.2 mg/dL 05/15/2024 10:25 AM EST [facility] EGFR 65 >=60 mL/min 05/15/2024 10:25 AM EST [facility] Comment:eGFR is calculated b ased on the CKD-EPI 2020 equation. SODIUM 141 135 - 146 mmol/L 05/15/2024 10:25 AM EST [facility] POTASSIUM 3.4(L) 3.5 - 5.1 mmol/L 05/15/2024 10:25 AM EST [facility] CHLORIDE 104 98 - 107 mmol/L 05/15/2024 10:25 AM EST [facility] CO2 21(L) 22 - 32 mmol/L 05/15/2024 10:25 AM EST [facility] ANION GAP 16(H) 7 - 15 mmol/L 05/15/2024 10:25 AM EST [facility] GLUCOSE 123(H) 70 - 120 mg/dL 05/15/2024 10:25 AM EST [facility] CALCIUM 9.0 8.4 - 10.2 mg/dL 05/15/2024 10:25 AM EST [facility] Albumin 3.9 3.8 - 5.0 g/dL 05/15/2024 10:25 AM EST [facility] Phosphorus 3.0 2.5 - 4.8 mg/dL 05/15/2024 10:25 AM EST [facility] Blood Venous blood specimen / Unknown Venipuncture / Unknown 05/15/2024 9:22 AM EST 05/15/2024 9:50 AM EST us Denis Harris MD LAB BLOOD ORDERABLES Stacy l Result [facility] [address] [place] [address] * GLUCOSE METER, POINT OF CARE (05/15/2024 8:26 AM EST) [facility] GLUCOSE - POCT 98 70 - 120 mg/dL 05/15/2024 8:31 AM EST [facility] Blood Whole blood specimen / Unknown 05/15/2024 8:26 AM EST 05/15/2024 8:31 AM EST Paul Mack MD LAB POINT OF CA RE TEST DOCKED DEVICE UNSOLICITED RESULTS Final Result [facility] [address] [place] [address] * XR ABDOMEN 1 VIEW (05/15/2024 1:10 AM EST) Anatomical Region Laterality Modality Abdomen, Pelvis Computed Radiogr aphy 05/15/2024 7:24 AM EST Impressions 05/15/2024 7:22 AM EST IMPRESSION 1. NG tube with tip overlying proximal stomach. Advancement into the stomach recommended. Narrative 05/15/2024 7:22 AM EST EXAM XR ABDOMEN 1 VIEW-05/15/2024 1:10 am HISTORY NGT placement COMPARISON XR ABDOMEN 1 VIEW, ACC: [id number], dated 2024-05-14 19:29:20 TECHNIQUE Portable semi upright AP film of the lower chest and upper abdomen was obtained FINDINGS NG tube extends into the abdomen tip overlying the proximal stomach, advancement into the stomach recommended.. Moderate retained stool burden. Degenerative changes of the spine. Procedure Note Kerri Gonzalez MD - 05/15/2024 EXAM XR ABDOMEN 1 VIEW-05/15/2024 1:10 am HISTORY NGT placement COMPARISON XR ABDOMEN 1 VIEW, ACC: [id number], dated 2024-05-14 19:29:20 TECHNIQUE Portable semi upright AP film of the lower chest and upper abdomen wasobtained FINDINGS NG tube extends into the abdomen tip overlying the proximal stomach,advancement into the stomach recommended.. Moderate retained stoolburden. Degenerative changes of the spine. IMPRESSION IMPRESSION 1. NG tube with tip overlying proximal stomach. Advancement into thestomach recommended. us France Gilmore DO RADIOLOGY (RAD GENERAL) Final Result * GLUCOSE METER, POINT OF CARE (05/14/2024 8:58 PM EST) [facility] GLUCOSE - POCT 119 70 - 120 mg/dL 05/14/2024 9:02 PM EST [facility] Blood Whole blood specimen / Unknown 05/14/2024 8:58 PM EST 05/14/2024 9:02 PM EST Paul Mack MD LAB POINT OF CA RE TEST DOCKED DEVICE UNSOLICITED RESULTS Final Result Performing Organization Address City/State/[facility] Co de Phone Number [facility] [address] [place] [address] * XR ABDOMEN 1 VIEW (05/14/2024 7:37 PM EST) Anatomical Region Laterality Modality Abdomen, Pelvis Computed Radiogr aphy 05/15/2024 12:3 7 AM EST Impressions 05/15/2024 12:34 AM EST IMPRESSION NG tube tip is in the body of the stomach. Narrative 05/15/2024 12:34 AM EST EXAM XR ABDOMEN 1 VIEW - 05/14/2024 7:37 pm HISTORY Gastric Tube placement verification TECHNIQUE Single view abdomen COMPARISON 05/12/2024. FINDINGS NG tube tip is in the body of the stomach. Nonobstructive bowel gas pattern. Moderate amount of stool is contained within the colon. Procedure Note Manny Vizcaino MD - 05/15/2024 EXAM XR ABDOMEN 1 VIEW - 05/14/2024 7:37 pm HISTORY Gastric Tube placement verification TECHNIQUE Single view abdomen COMPARISON 05/12/2024. FINDINGS NG tube tip is in the body of the stomach. Nonobstructive bowel gaspattern. Moderate amount of stool is contained within the colon. IMPRESSION IMPRESSION NG tube tip is in the body of the stomach. France Gilmore DO RADIOLOGY (RAD GENERAL) Final Result * GLUCOSE METER, POINT OF CARE (05/14/2024 5:08 PM EST) GLUCOSE - POCT 107 70 - 120 mg/dL 05/14/2024 5:15 PM EST [employer] Blood Whole blood specimen / Unknown 05/14/2024 5:08 PM EST 05/14/2024 5:15 PM EST Paul Mack MD LAB POINT OF CA RE TEST DOCKED DEVICE UNSOLICITED RESULTS Final Result [facility] [address] [place] [address] * CT HEAD/BRAIN WO CONTRAST (05/14/2024 1:15 PM EST) Anatomical Region Laterality Modality Head Computed Tomogra phy 05/14/2024 1:48 PM EST Impressions 05/14/2024 2:25 PM EST IMPRESSION Evolving scattered subacute infarcts in the left cerebral hemisphere, concentrated in the watershed vascular territory, best demonstrated on recent MR brain 05/10/2024. No substantial mass effect or overt hemorrhagic conversion. Chronic ischemic changes and moderate global cerebral volume loss. I have personally reviewed this examination and agree with the resident/fellow physician's interpretation. Narrative 05/14/2024 2:[address] HEAD WITHOUT CONTRAST - 05/14/2024 HISTORY 84 y/o M presented for evaluation altered mental status. TECHNIQUE Axial CT images of the head were obtained without contrast. Coronal and sagittal reconstructions are provided. COMPARISON MRI brain 05/10/[address] head 05/09/2024 FINDINGS Multifocal parenchymal hypoattenuation in the left cerebral hemisphere, compatible with scattered subacute infarcts, distributed predominantly in the watershed vascular territory. Effacement of sulci and partial effacement of the left lateral ventricle atrium, without substantial mass effect or midline shift. No overt hemorrhagic conversion. No evidence of new acute territorial infarct. Subacute ischemic changes are superimposed on chronic infarcts in the left frontoparietal region, and there are multiple chronic lacunar infarcts in both cerebral hemispheres, best demonstrated on the prior MR exam. Other patchy hypoattenuation in the cerebral white matter, most suggestive of chronic microvascular ischemic changes. No hydrocephalus, downward herniation, midline shift, mass effect or extra-axial fluid collections are demonstrated. Moderate global brain volume loss is appreciated, with proportionate ventriculosulcal prominence. No extra-axial fluid collections. Basal cisterns are patent. Vascular calcification at the skull base. Unremarkable orbits. The mastoid air cells and paranasal sinuses are clear. Calvarium and visualized craniofacial soft tissues are unremarkable. Procedure Note Porfirio Schmitt MD - 05/14/[address] HEAD WITHOUT CONTRAST - 05/14/2024 HISTORY 84 y/o M presented for evaluation altered mental status. TECHNIQUE Axial CT images of the head were obtained without contrast. Coronal andsagittal reconstructions are provided. COMPARISON MRI brain 05/10/[address] head 05/09/2024 FINDINGS Multifocal parenchymal hypoattenuation in the left cerebral hemisphere,compatible with scattered subacute infarcts, distributed predominantly inthe watershed vascular territory. Effacement of sulci and partialeffacement of the left lateral ventricle atrium, without substantial masseffect or midline shift. No overt hemorrhagic conversion. No evidence of new acute territorial infarct. Subacute ischemic changesare superimposed on chronic infarcts in the left frontoparietal region,and there are multiple chronic lacunar infarcts in both cerebralhemispheres, best demonstrated on the prior MR exam. Other patchyhypoattenuation in the cerebral white matter, most suggestive of chronicmicrovascular ischemic changes. No hydrocephalus, downward herniation,midline shift, mass effect or extra-axial fluid collections aredemonstrated. Moderate global brain volume loss is appreciated, with proportionateventriculosulcal prominence. No extra-axial fluid collections. Basalcisterns are patent. Vascular calcification at the skull base. Unremarkable orbits. The mastoid air cells and paranasal sinuses areclear. Calvarium and visualized craniofacial soft tissues areunremarkable. IMPRESSION IMPRESSION Evolving scattered subacute infarcts in the left cerebral hemisphere,concentrated in the watershed vascular territory, best demonstrated onrecent MR brain 05/10/2024. No substantial mass effect or overthemorrhagic conversion. Chronic ischemic changes and moderate global cerebral volume loss. I have personally reviewed this examination and agree with the resident/fellow physician's interpretation. us Issa Bautista DO RAD CT Final Result * (ABNORMAL) GLUCOSE METER, POINT OF CARE (05/14/2024 11:51 AM EST) GLUCOSE - POCT 151(H) 70 - 120 mg/dL 05/14/2024 12:13 PM EST [employer] Blood Whole blood specimen / Unknown 05/14/2024 11:51 AM EST 05/14/2024 12:13 PM EST Paul Mack MD LAB POINT OF CA RE TEST DOCKED DEVICE UNSOLICITED RESULTS Final Result [facility] [address] [place] [address] * (ABNORMAL) GLUCOSE METER, POINT OF CARE (05/14/2024 7:50 AM EST) GLUCOSE - POCT 164(H) 70 - 120 mg/dL 05/14/2024 7:56 AM EST [employer] Blood Whole blood specimen / Unknown 05/14/2024 7:50 AM EST 05/14/2024 7:56 AM EST Paul Mack MD LAB POINT OF CA RE TEST DOCKED DEVICE UNSOLICITED RESULTS Final Result [facility] [address] [place] [address] * (ABNORMAL) RENAL FUNCTION PANEL (05/14/2024 7:36 AM EST) BUN 26(H) 6 - 20 mg/dL 05/14/2024 8:14 AM EST [facility] CREATININE 1.3(H) 0.6 - 1.2 mg/dL 05/14/2024 8:14 AM EST [facility] EGFR 57(L) >=60 mL/min 05/14/2024 8:14 AM EST [facility] Comment:eGFR is calculated b ased on the CKD-EPI 2020 equation. SODIUM 139 135 - 146 mmol/L 05/14/2024 8:14 AM EST [facility] POTASSIUM 3.6 3.5 - 5.1 mmol/L 05/14/2024 8:14 AM EST [facility] CHLORIDE 103 98 - 107 mmol/L 05/14/2024 8:14 AM EST [facility] CO2 24 22 - 32 mmol/L 05/14/2024 8:14 AM EST [facility] ANION GAP 12 7 - 15 mmol/L 05/14/2024 8:14 AM EST [facility] GLUCOSE 155(H) 70 - 120 mg/dL 05/14/2024 8:14 AM EST [facility] CALCIUM 9.0 8.4 - 10.2 mg/dL 05/14/2024 8:14 AM EST [facility] Albumin 3.8 3.8 - 5.0 g/dL 05/14/2024 8:14 AM EST [facility] Phosphorus 3.2 2.5 - 4.8 mg/dL 05/14/2024 8:14 AM EST [facility] Blood Venous blood specimen / Unknown Venipuncture / Unknown 05/14/2024 7:36 AM EST 05/14/2024 7:46 AM EST Denis Harris MD LAB BLOOD ORDERABLES Stacy l Result [facility] [address] [place] [address] * (ABNORMAL) GLUCOSE METER, POINT OF CARE (05/13/2024 9:01 PM EST) [facility] GLUCOSE - POCT 176(H) 70 - 120 mg/dL 05/13/2024 9:11 PM EST [employer] Blood Whole blood specimen / Unknown 05/13/2024 9:01 PM EST 05/13/2024 9:11 PM EST Paul Mack MD LAB POINT OF CA RE TEST DOCKED DEVICE UNSOLICITED RESULTS Final Result Performing Organization Address City/[facility]/ZIP Co de Phone Number [facility] [address] [place] [address] * (ABNORMAL) GLUCOSE METER, POINT OF CARE (05/13/2024 4:51 PM EST) GLUCOSE - POCT 138(H) 70 - 120 mg/dL 05/13/2024 4:59 PM EST [employer] Blood Whole blood specimen / Unknown 05/13/2024 4:51 PM EST 05/13/2024 4:59 PM EST Paul Mack MD LAB POINT OF CA RE TEST DOCKED DEVICE UNSOLICITED RESULTS Final Result Performing Organization Address [facility]/ZIP Co de Phone Number [address] [address] * (ABNORMAL) GLUCOSE METER, POINT OF CARE (05/13/2024 12:13 PM EST) GLUCOSE - POCT 221(H) 70 - 120 mg/dL 05/13/2024 12:33 PM EST [employer] Blood Whole blood specimen / Unknown 05/13/2024 12:13 PM EST 05/13/2024 12:33 PM EST Paul Mack MD LAB POINT OF CA RE TEST DOCKED DEVICE UNSOLICITED RESULTS Final Result Performing Organization Address City/[facility]/ZIP Co de Phone Number [address] [address] * (ABNORMAL) RENAL FUNCTION PANEL (05/13/2024 7:47 AM EST) BUN 30(H) 6 - 20 mg/dL 05/13/2024 8:41 AM EST [facility] CREATININE 1.3(H) 0.6 - 1.2 mg/dL 05/13/2024 8:41 AM EST [facility] EGFR 54(L) >=60 mL/min 05/13/2024 8:41 AM EST [facility] Comment:eGFR is calculated b ased on the CKD-EPI 2020 equation. SODIUM 139 135 - 146 mmol/L 05/13/2024 8:41 AM EST [facility] POTASSIUM 3.7 3.5 - 5.1 mmol/L 05/13/2024 8:41 AM EST [facility] CHLORIDE 103 98 - 107 mmol/L 05/13/2024 8:41 AM EST [facility] CO2 23 22 - 32 mmol/L 05/13/2024 8:41 AM EST [facility] ANION GAP 13 7 - 15 mmol/L 05/13/2024 8:41 AM EST [facility] GLUCOSE 191(H) 70 - 120 mg/dL 05/13/2024 8:41 AM EST [facility] CALCIUM 9.5 8.4 - 10.2 mg/dL 05/13/2024 8:41 AM EST [facility] Albumin 3.8 3.8 - 5.0 g/dL 05/13/2024 8:41 AM EST [facility] Phosphorus 2.3(L) 2.5 - 4.8 mg/dL 05/13/2024 8:41 AM EST [facility] Blood Venous blood specimen / Unknown Venipuncture / Unknown 05/13/2024 7:47 AM EST 05/13/2024 8:14 AM EST Denis Harris MD LAB BLOOD ORDERABLES Stacy l Result [facility]AT[facility] [address] [place] [address] * (ABNORMAL) GLUCOSE METER, POINT OF CARE (05/13/2024 7:31 AM EST) [facility] GLUCOSE - POCT 186(H) 70 - 120 mg/dL 05/13/2024 7:48 AM EST [employer] Blood Whole blood specimen / Unknown 05/13/2024 7:31 AM EST 05/13/2024 7:48 AM EST us Paul Mack MD LAB POINT OF CA RE TEST DOCKED DEVICE UNSOLICITED RESULTS Final Result Performing Organization Address [facility]/ZIP Co de Phone Number [facility] [address] [place] [address] * (ABNORMAL) GLUCOSE METER, POINT OF CARE (05/12/2024 9:16 PM EST) GLUCOSE - POCT 177(H) 70 - 120 mg/dL 05/12/2024 9:19 PM EST [employer] Blood Whole blood specimen / Unknown 05/12/2024 9:16 PM EST 05/12/2024 9:19 PM EST us Paul Mack MD LAB POINT OF CA RE TEST DOCKED DEVICE UNSOLICITED RESULTS Final Result Performing Organization Address [facility] Co de Phone Number [facility] [address] [place] [address] * (ABNORMAL) GLUCOSE METER, POINT OF CARE (05/12/2024 4:04 PM EST) GLUCOSE - POCT 131(H) 70 - 120 mg/dL 05/12/2024 4:20 PM EST [employer] Blood Whole blood specimen / Unknown 05/12/2024 4:04 PM EST 05/12/2024 4:20 PM EST us Sonali Dawson MD LAB POINT OF CARE TE ST DOCKED DEVICE UNSOLICITED RESULTS Final Result Performing Organization Address [facility] Co de Phone Number [facility] [address] [place] [address] * XR ABDOMEN 1 VIEW (05/12/2024 1:14 PM EST) Anatomical Region Laterality Modality Abdomen, Pelvis Computed Radiogr aphy 05/12/2024 2:20 PM EST Impressions 05/12/2024 2:17 PM EST IMPRESSION 1. NG tube extends into the abdomen overlies mid stomach. Narrative 05/12/2024 2:17 PM EST EXAM XR ABDOMEN 1 VIEW-05/12/2024 1:14 pm HISTORY Patient dislodged NG. Confirm NG Tube placement COMPARISON No Comparison. TECHNIQUE Frontal film of the lower chest and upper abdomen was obtained FINDINGS NG tube extends into the abdomen tip overlying the mid to distal stomach. Retained stool in the colon. Blunted left costophrenic angle. Procedure Note Kerri Gonzalez MD - 05/12/2024 EXAM XR ABDOMEN 1 VIEW-05/12/2024 1:14 pm HISTORY Patient dislodged NG. Confirm NG Tube placement COMPARISON No Comparison. TECHNIQUE Frontal film of the lower chest and upper abdomen was obtained FINDINGS NG tube extends into the abdomen tip overlying the mid to distal stomach.Retained stool in the colon. Blunted left costophrenic angle. IMPRESSION IMPRESSION 1. NG tube extends into the abdomen overlies mid stomach. Josh Whalen MD RADIOLOGY (RAD GENERAL) Final Result * (ABNORMAL) GLUCOSE METER, POINT OF CARE (05/12/2024 11:10 AM EST) GLUCOSE - POCT 155(H) 70 - 120 mg/dL 05/12/2024 11:25 AM EST [employer] Blood Whole blood specimen / Unknown 05/12/2024 11:10 AM EST 05/12/2024 11:25 AM EST Sonali Dawson MD LAB POINT OF CARE TE ST DOCKED DEVICE UNSOLICITED RESULTS Final Result [facility] [address] [place] [address] * (ABNORMAL) GLUCOSE METER, POINT OF CARE (05/12/2024 8:38 AM EST) GLUCOSE - POCT 159(H) 70 - 120 mg/dL 05/12/2024 9:16 AM EST [employer] Blood Whole blood specimen / Unknown 05/12/2024 8:38 AM EST 05/12/2024 9:16 AM EST Sonali Dawson MD LAB POINT OF CARE TE ST DOCKED DEVICE UNSOLICITED RESULTS Final Result [facility] [address] [place] [address] * (ABNORMAL) BASIC METABOLIC PANEL (05/12/2024 6:09 AM EST) BUN 31(H) 6 - 20 mg/dL 05/12/2024 7:08 AM EST [facility] CREATININE 1.5(H) 0.6 - 1.2 mg/dL 05/12/2024 7:08 AM EST [facility] EGFR 48(L) >=60 mL/min 05/12/2024 7:08 AM EST [facility] Comment:eGFR is calculated b ased on the CKD-EPI 2020 equation. SODIUM 138 135 - 146 mmol/L 05/12/2024 7:08 AM EST [facility] POTASSIUM 3.8 3.5 - 5.1 mmol/L 05/12/2024 7:08 AM EST LAB[facility]ATORY C CHLORIDE 103 98 - 107 mmol/L 05/12/2024 7:08 AM EST [facility] CO2 22 22 - 32 mmol/L 05/12/2024 7:08 AM EST [facility] ANION GAP 13 7 - 15 mmol/L 05/12/2024 7:08 AM EST LAB[facility]ORY C GLUCOSE 156(H) 70 - 120 mg/dL 05/12/2024 7:08 AM EST [facility] CALCIUM 8.9 8.4 - 10.2 mg/dL 05/12/2024 7:08 AM EST [facility] Blood Venous blood specimen / Unknown Venipuncture / Unknown 05/12/2024 6:09 AM EST 05/12/2024 6:39 AM EST us Jessica Lopez DO LAB BLOOD ORDERABLES Final Re sult [facility]ORY [facility] [address], [place] [id number] * CALCIUM, IONIZED (05/12/2024 6:09 AM EST) Calcium, Ionized 1.18 1.13 - 1.32 mmol/L 05/12/2024 7:00 AM EST [facility] Comment:This test was develo ped and its performance characteristics dtermined by [email or web address]. It has not been cleared or approved by the [place] Food and Drug Administration Blood Venous blood specimen / Unknown Venipuncture / Unknown 05/12/2024 6:09 AM EST 05/12/2024 6:39 AM EST Fred Medrano PA-C LAB BLOOD ORDERABLES Fin al Result [facility] [address] [place] [address] * PHOSPHORUS (05/12/2024 6:09 AM EST) Phosphorus 2.5 2.5 - 4.8 mg/dL 05/12/2024 7:08 AM EST [facility] Blood Venous blood specimen / Unknown Venipuncture / Unknown 05/12/2024 6:09 AM EST 05/12/2024 6:39 AM EST [facility] Patricio LLANES-Keegan LAB BLOOD ORDERABLES Fin al Result Performing Organization Address [facility] Co de Phone Number [facility] [address] [place] [address] * MAGNESIUM (05/12/2024 6:09 AM EST) Magnesium 2.1 1.5 - 2.6 mg/dL 05/12/2024 7:08 AM EST [facility] Blood Venous blood specimen / Unknown Venipuncture / Unknown 05/12/2024 6:09 AM EST 05/12/2024 6:39 AM EST [facility] Patricio LLANES-C LAB BLOOD ORDERABLES Fin al Result Performing Organization Address City/[facility] Co de Phone Number [facility]ORY [facility] [address] [place] [address] * PT INR (05/12/2024 6:09 AM EST) Prothrombin Time 15.0 11.6 - 15.2 seconds 05/12/2024 7:04 AM EST [facility] INR 1.2 0.8 - 1.2 05/12/2024 7:04 AM EST [facility] Blood Venous blood specimen / Unknown Venipuncture / Unknown 05/12/2024 6:09 AM EST 05/12/2024 6:39 AM EST Narrative [facility] - 05/12/2024 7:04 AM EST Warfarin Therapy INR: 2.0-3.0 conventional anticoagulation INR: 2.5-3.5 high intensity anticoagulation us John Paul Guerin DO LAB BLOOD ORDERABLES Fin al Result [facility] [address] [place] [address] * (ABNORMAL) CBC (05/12/2024 6:09 AM EST) WBC 10.90(H) 4.00 - 10.80 K/uL 05/12/2024 6:51 AM EST [facility] RBC 4.94 4.50 - 5.25 M/uL 05/12/2024 6:51 AM EST [facility] HGB 14.7 14.0 - 16.8 g/dL 05/12/2024 6:51 AM EST [facility] HCT 44.6 40.0 - 48.4 % 05/12/2024 6:51 AM EST [facility] MCV 90.3 82.0 - 99.5 fL 05/12/2024 6:51 AM EST [facility] MCH 29.8 27.0 - 34.0 pg 05/12/2024 6:51 AM EST [facility] MCHC 33.0 32.0 - 36.0 g/dL 05/12/2024 6:51 AM EST [facility] RDW 14.5 11.5 - 15.5 % 05/12/2024 6:51 AM EST [facility] PLT 181 140 - 400 K/uL 05/12/2024 6:51 AM EST [facility] MPV 9.9 6.6 - 11.1 fL 05/12/2024 6:51 AM EST [facility] nRBCs 0 <=0 /100 WBCs 05/12/2024 6:51 AM EST [facility] Blood Venous blood specimen / Unknown Venipuncture / Unknown 05/12/2024 6:09 AM EST 05/12/2024 6:39 AM EST John Paul Guerin DO LAB BLOOD ORDERABLES Fin al Result [facility] [address] [place] [address] * (ABNORMAL) GLUCOSE METER, POINT OF CARE (05/11/2024 9:51 PM EST) GLUCOSE - POCT 192(H) 70 - 120 mg/dL 05/11/2024 9:59 PM EST [employer] Blood Whole blood specimen / Unknown 05/11/2024 9:51 PM EST 05/11/2024 9:59 PM EST Sonali Dawson MD LAB POINT OF CARE TE ST DOCKED DEVICE UNSOLICITED RESULTS Final Result Performing Organization Address City/[facility]/ZIP Co de Phone Number [facility] [address] [place] [address] * (ABNORMAL) GLUCOSE METER, POINT OF CARE (05/11/2024 5:02 PM EST) GLUCOSE - POCT 148(H) 70 - 120 mg/dL 05/11/2024 5:05 PM EST [employer] Blood Whole blood specimen / Unknown 05/11/2024 5:02 PM EST 05/11/2024 5:05 PM EST Sonali Dawson MD LAB POINT OF CARE TE ST DOCKED DEVICE UNSOLICITED RESULTS Final Result [facility] [address] [place] [address] * VASC [place] [employer] (05/11/2024 3:36 PM EST) Anatomical Region Laterality Modality Lower Extremity, Vascular Ultras ound Narrative 05/11/2024 3:46 PM EST VASCULAR LAB RESULTS DATE OF EXAMINATION: 05/11/24 INDICATION: R/O PSEUDOANEURYSM FEMORAL ARTERY DUPLEX EXAMINATION S/P CATHETERIZATION Immediately before proceeding with the vascular lab procedure reported below, the identity of the patient, the correct exam and the correct procedural site were verified. Murdock scale, color flow and spectral doppler were performed for this examination. FINDINGS: Duplex ultrasound of the right groin reveals normal arterial flow in the external iliac artery, common femoral artery and proximal superficial femoral artery segments. There is pulsatile venous flow with a color bruit noted, consistent with possible AV fistula in the venous outflow from the right entry site region. A hematoma with no flow is seen about the entry site which measures approximately 2.4 cm by 1.3 cm. CONCLUSION: Hematoma noted in the region of recent catheterization with size measurements as noted above. No pseudoaneurysm identified. 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 Jessica Lopez DO [facility] VASCULAR Final Result * TEG (THROMBOELASTOGRAPH), HEPARINASE (05/11/2024 2:59 PM EST) Reaction Time 4.8 2.5 - 8.3 minutes 05/11/2024 4:24 PM EST [facility] Kinetics Time 1.2 0.5 - 3.7 minutes 05/11/2024 4:24 PM EST LABORATORY C Alpha Angle 72.7 46.8 - 78.4 degrees 05/11/2024 4:24 PM EST [facility] Maximum Amplitude 72.0 50.6 - 72.5 mm 05/11/2024 4:24 PM EST [facility] Coagulation Index 2.9 -3.0 - 3.0 05/11/2024 4:24 PM EST [facility] Percent Lysis 30 1.4 0.0 - 7.5 % 024 4:24 PM EST [facility] Comment:This is an appended report. These results have been appended to a previously preliminary verified report. Blood Venous blood specimen / Unknown Venipuncture / Unknown 05/11/2024 2:59 PM EST 05/11/2024 3:06 PM EST us Zunilda Sifuentes MD LAB BLOOD ORDERABLES Final Re sult Performing Organization Address [facility] Co de Phone Number [facility] [address] [place] [address] * TEG (THROMBOELASTOGRAPH) (05/11/2024 2:59 PM EST) Reaction Time 4.9 2.5 - 8.3 minutes 05/11/2024 4:24 PM EST [facility] Kinetics Time 1.2 0.5 - 3.7 minutes 05/11/2024 4:24 PM EST [facility] Alpha Angle 72.2 46.8 - 78.4 degrees 05/11/2024 4:24 PM EST [facility] Maximum Amplitude 68.9 50.6 - 72.5 mm 05/11/2024 4:24 PM EST [facility] Coagulation Index 2.4 -3.0 - 3.0 05/11/2024 4:24 PM EST [facility] Percent Lysis 30 0.8 0.0 - 7.5 % 024 4:24 PM EST [facility] Comment:This is an appended report. These results have been appended to a previously preliminary verified report. Blood Venous blood specimen / Unknown Venipuncture / Unknown 05/11/2024 2:59 PM EST 05/11/2024 3:06 PM EST Narrative [facility] - 05/11/2024 4:24 PM EST If R time > 20 minutes and no clot formed suggesting hypocoagulable state or interfering substance (anticoagulation). Consider resubmitting a new sample and/or checking PT/INR, aPTT, fibrinogen, and platelet count. us Zunilda Sifuentes MD LAB BLOOD ORDERABLES Final Re sult Performing Organization Address [facility] Co de Phone Number [facility] [address] [place] [address] * (ABNORMAL) CBC (05/11/2024 2:58 PM EST) WBC 13.13(H) 4.00 - 10.80 K/uL 05/11/2024 3:15 PM EST [facility] RBC 4.76 4.50 - 5.25 M/uL 05/11/2024 3:15 PM EST [facility] HGB 14.4 14.0 - 16.8 g/dL 05/11/2024 3:15 PM EST [facility] HCT 43.2 40.0 - 48.4 % 05/11/2024 3:15 PM EST [facility] MCV 90.8 82.0 - 99.5 fL 05/11/2024 3:15 PM EST [facility] MCH 30.3 27.0 - 34.0 pg 05/11/2024 3:15 PM EST [facility] MCHC 33.3 32.0 - 36.0 g/dL 05/11/2024 3:15 PM EST [facility] RDW 14.6 11.5 - 15.5 % 05/11/2024 3:15 PM EST [facility] PLT 182 140 - 400 K/uL 05/11/2024 3:15 PM EST [facility] MPV 9.8 6.6 - 11.1 fL 05/11/2024 3:15 PM EST [facility] nRBCs 0 <=0 /100 WBCs 05/11/2024 3:15 PM EST [facility] Blood Venous blood specimen / Unknown Venipuncture / Unknown 05/11/2024 2:58 PM EST 05/11/2024 3:06 PM EST Zunilda Sifuentes MD LAB BLOOD ORDERABLES Final Re sult Performing Organization Address City/State/[facility] Co de Phone Number [facility] [address] [place] [address] * (ABNORMAL) GLUCOSE METER, POINT OF CARE (05/11/2024 12:10 PM EST) [facility] GLUCOSE - POCT 207(H) 70 - 120 mg/dL 05/11/2024 12:23 PM EST [employer] Blood Whole blood specimen / Unknown 05/11/2024 12:10 PM EST 05/11/2024 12:23 PM EST Sonali Dawson MD LAB POINT OF CARE TE ST DOCKED DEVICE UNSOLICITED RESULTS Final Result Performing Organization Address [facility]/ZIP Co de Phone Number [facility] [address] [place] [address] * EKG (05/11/2024 10:14 AM EST) 05/11/2024 10:1 4 AM EST Narrative Procedure Note Svitlana Ventura MD - 05/11/2024 10:14 AM EST REASON FOR STUDY: Just checking QTc;Electrolyte abnormality CONCLUSIONS: Normal sinus rhythm Nonspecific T wave abnormality Abnormal ECG When compared with ECG of 09-May-2024 11:27, Nonspecific T wave abnormality now evident in Lateral leads Ventricular Rate: 64 Atrial Rate: 64 MS Interval: 176 QRS Duration: 100 QT/QTc: 432/445 ms P-R-T [place]: 68 : 23 : 65 degrees Jessica Lopez DO EKG Final Result Performing Organization Address [facility] Co de Phone Number [facility] CARDIOLOGY * (ABNORMAL) GLUCOSE METER, POINT OF CARE (05/11/2024 10:02 AM EST) Pathologist [facility] [place] GLUCOSE - POCT 185(H) 70 - 120 mg/dL 05/11/2024 10:49 AM EST [facility] Blood Whole blood specimen / Unknown 05/11/2024 10:02 AM EST 05/11/2024 10:49 AM EST Sonali Dawson MD LAB POINT OF CARE TE ST DOCKED DEVICE UNSOLICITED RESULTS Final Result Performing Organization Address City/[facility]/ZIP Co de Phone Number [facility] [address] [place] [address] * (ABNORMAL) [id number] INHIBITOR REACTIVITY (CLOPIDOGREL), VERIFYNOW (05/11/2024 9:18 AM EST) Pathologist [facility] [place] Ver[employer]Now P2Y12 123(L) 182 - 335 PRU 05/11/2024 11:02 AM EST LABORATORY C Blood Venous blood specimen / Unknown Venipuncture / Unknown 05/11/2024 9:18 AM EST 05/11/2024 9:30 AM EST Narrative [facility] [place] 05/11/2024 11:02 AM EST Assay measures the level of platelet P2Y12 receptor blockade from clopidogrel and it should not be used to detect other platelet functional disorders. This test is not to be used for therapeutic monitoring. >=182 P2Y12 inhibitory drug (clopidogrel) NOT detected % clopidogrel inhibition = (Baseline PRU - Post-treatment PRU) / Baseline PRU x100 <10% inhibition indicated the patient is resistant to therapy and recommend different antiplatelet medication Interfering substances/Test limitations: Do not test patients if on the following medications until platelet function has recovered (timeframe), as they may result in low ARU values; dipyridamole - 12 hours, cilostazol - 12 hours, Aggrenox (aspirin/dipyridamole) - 10 days. Samples may also be affected by low hematocrit (<29%), high hematocrit (>56%), or low platelet counts (<92,000/cmm). Patients on ticlopidine, prasugrel, and ticagrelor or with inherited platelet disorders have not been studied using this assay and the ability of the assay to detect these drugs or clopidogrel usage in these patients is unknown. Jessica Lopez DO LAB BLOOD ORDERABLES Final Re sult [facility] [address] [place] [address] * (ABNORMAL) ASPIRIN, VERIFYNOW (05/11/2024 9:18 AM EST) [facility] VerifyNow Aspirin 479(L) >=550 ARU 05/11/2024 11:02 AM EST [facility] Blood Venous blood specimen / Unknown Venipuncture / Unknown 05/11/2024 9:18 AM EST 05/11/2024 9:30 AM EST Narrative [facility] [place] 05/11/2024 11:02 AM EST Assay designed to measure the effect of aspirin and it should not be used to detect other platelet functional disorders. >=550 ARU - Aspirin not detected < 550 ARU - Aspirin detected Interfering substances/Test limitations: Do not test patients if on the following medications until platelet function has recovered (timeframe), as they may result in low ARU values; clopidogrel -5 days, ticlopidine- 5 days, prasugrel - 10 days, dipyridamole - 12 hours, cilostazol - 12 hours, Aggrenox (aspirin/dipyridamole) - 10 days, ibuprofen - 8 hours, naproxen - 24 hours, diclofenac - 24 hours, indocin - 24 hours, feldene - 50 hours, tirofiban - 2 days, eptifibatide - 2 days, abciximab - 2 week. Samples may also be affected by low hematocrit (<29%), high hematocrit (>56%), or low platelet counts (<92,000/cmm). Patients on ticagrelor or with inherited platelet disorders have not been studied using this assay and the ability of the assay to detect aspirin usage in these patients is unknown. Jessica Lopez DO LAB BLOOD ORDERABLES Final Re sult [facility] [address] [place] [address] * (ABNORMAL) BASIC METABOLIC PANEL (05/11/2024 7:17 AM EST) BUN 37(H) 6 - 20 mg/dL 05/11/2024 9:18 AM EST LABORATORY [facility] CREATININE 1.9(H) 0.6 - 1.2 mg/dL 05/11/2024 9:18 AM EST LABORATORY [facility] EGFR 35(L) >=60 mL/min 05/11/2024 9:18 AM EST LABORATORY [facility] Comment:eGFR is calculated b ased on the CKD-EPI 2020 equation. SODIUM 139 135 - 146 mmol/L 05/11/2024 9:18 AM EST [facility] POTASSIUM 4.0 3.5 - 5.1 mmol/L 05/11/2024 9:18 AM EST LABORATORY [facility] CHLORIDE 103 98 - 107 mmol/L 05/11/2024 9:18 AM EST LABORATORY [facility] CO2 21(L) 22 - 32 mmol/L 05/11/2024 9:18 AM EST [facility] ANION GAP 15 7 - 15 mmol/L 05/11/2024 9:18 AM EST LABORATORY C GLUCOSE 130(H) 70 - 120 mg/dL 05/11/2024 9:18 AM EST LABORATORY C CALCIUM 8.5 8.4 - 10.2 mg/dL 05/11/2024 9:18 AM EST [facility] [place] Venous blood specimen / Unknown Venipuncture / Unknown 05/11/2024 7:17 AM EST 05/11/2024 7:54 AM EST Jessica Lopez DO LAB BLOOD ORDERABLES Final Re sult Performing Organization Address City/[facility]/ZIP Co de Phone Number LABORATORY [place] [address] [place] [address] * CALCIUM, IONIZED (05/11/2024 7:17 AM EST) Calcium, Ionized 1.16 1.13 - 1.32 mmol/L 05/11/2024 8:03 AM EST [facility] Comment:This test was develo ped and its performance characteristics dtermined by [email or web address]. It has not been cleared or approved by the US Food and Drug Administration Blood Venous blood specimen / Unknown Venipuncture / Unknown 05/11/2024 7:17 AM EST 05/11/2024 7:54 AM EST Fred Medrano PA-C LAB BLOOD ORDERABLES Fin al Result Performing Organization Address City/[facility]/ZIP Co de Phone Number [facility] [address] [place] [address] * PHOSPHORUS (05/11/2024 7:17 AM EST) Phosphorus 3.1 2.5 - 4.8 mg/dL 05/11/2024 8:14 AM EST [facility] [place] Venous blood specimen / Unknown Venipuncture / Unknown 05/11/2024 7:17 AM EST 05/11/2024 7:54 AM EST Fred Medrano PA-C LAB BLOOD ORDERABLES Fin al Result [facility] [address] [place] [address] * MAGNESIUM (05/11/2024 7:17 AM EST) Magnesium 2.4 1.5 - 2.6 mg/dL 05/11/2024 8:14 AM EST [facility] Blood Venous blood specimen / Unknown Venipuncture / Unknown 05/11/2024 7:17 AM EST 05/11/2024 7:54 AM EST Fred Medrano PA-C LAB BLOOD ORDERABLES Fin al Result Performing Organization Address [facility] Co de Phone Number [facility] [address] [place] [address] * (ABNORMAL) PT INR (05/11/2024 7:17 AM EST) Prothrombin Time 16.6(H) 11.6 - 15.2 seconds 05/11/2024 8:38 AM EST [facility] INR 1.3(H) 0.8 - 1.2 05/11/2024 8:38 AM EST [facility] Blood Venous blood specimen / Unknown Venipuncture / Unknown 05/11/2024 7:17 AM EST 05/11/2024 7:54 AM EST Narrative [facility] - 05/11/2024 8:38 AM EST Warfarin Therapy INR: 2.0-3.0 conventional anticoagulation INR: 2.5-3.5 high intensity anticoagulation John Paul Guerin DO LAB BLOOD ORDERABLES Fin al Result Performing Organization Address City/[facility]/ZIP Co de Phone Number [facility] [address] [place] [address] * (ABNORMAL) CBC (05/11/2024 7:17 AM EST) WBC 12.54(H) 4.00 - 10.80 K/uL 05/11/2024 7:58 AM EST LABORATORY [facility] RBC 4.76 4.50 - 5.25 M/uL 05/11/2024 7:58 AM EST [facility] HGB 14.5 14.0 - 16.8 g/dL 05/11/2024 7:58 AM EST [facility] HCT 43.5 40.0 - 48.4 % 05/11/2024 7:58 AM EST [facility] MCV 91.4 82.0 - 99.5 fL 05/11/2024 7:58 AM EST [facility] MCH 30.5 27.0 - 34.0 pg 05/11/2024 7:58 AM EST [facility] MCHC 33.3 32.0 - 36.0 g/dL 05/11/2024 7:58 AM EST [facility] RDW 14.5 11.5 - 15.5 % 05/11/2024 7:58 AM EST [facility] PLT 172 140 - 400 K/uL 05/11/2024 7:58 AM EST [facility] MPV 10.5 6.6 - 11.1 fL 05/11/2024 7:58 AM EST [facility] nRBCs 0 <=0 /100 WBCs 05/11/2024 7:58 AM EST [facility] Blood Venous blood specimen / Unknown Venipuncture / Unknown 05/11/2024 7:17 AM EST 05/11/2024 7:54 AM EST us John Paul Guerin DO LAB BLOOD ORDERABLES Fin al Result Performing Organization Address City/State/[facility] Co de Phone Number [facility] [address] [place] [address] * (ABNORMAL) BASIC METABOLIC PANEL (05/10/2024 8:23 AM EST) BUN 31(H) 6 - 20 mg/dL 05/10/2024 9:04 AM EST [facility] CREATININE 2.0(H) 0.6 - 1.2 mg/dL 05/10/2024 9:04 AM EST [facility] EGFR 33(L) >=60 mL/min 05/10/2024 9:04 AM EST LAB[facility] Comment:eGFR is calculated b ased on the CKD-EPI 2020 equation. SODIUM 135 135 - 146 mmol/L 05/10/2024 9:04 AM EST [facility] POTASSIUM 4.4 3.5 - 5.1 mmol/L 05/10/2024 9:04 AM EST [facility] CHLORIDE 101 98 - 107 mmol/L 05/10/2024 9:04 AM EST [facility] CO2 21(L) 22 - 32 mmol/L 05/10/2024 9:04 AM EST [facility] ANION GAP 13 7 - 15 mmol/L 05/10/2024 9:04 AM EST [facility] GLUCOSE 184(H) 70 - 120 mg/dL 05/10/2024 9:04 AM EST [facility] CALCIUM 8.3(L) 8.4 - 10.2 mg/dL 05/10/2024 9:04 AM EST [facility] Blood Venous blood specimen / Unknown Venipuncture / Unknown 05/10/2024 8:23 AM EST 05/10/2024 8:35 AM EST [facility] Natalia CABALLERO LAB BLOOD ORDERABLES Final Resul t LAB[facility] [address] [place] [address] * CBC (05/10/2024 8:23 AM EST) WBC 10.38 4.00 - 10.80 K/uL 05/10/2024 8:47 AM EST [facility] RBC 5.17 4.50 - 5.25 M/uL 05/10/2024 8:47 AM EST [facility] HGB 15.1 14.0 - 16.8 g/dL 05/10/2024 8:47 AM EST [facility] HCT 47.3 40.0 - 48.4 % 05/10/2024 8:47 AM EST [facility] MCV 91.5 82.0 - 99.5 fL 05/10/2024 8:47 AM EST [facility] MCH 29.2 27.0 - 34.0 pg 05/10/2024 8:47 AM EST [facility] MCHC 31.9 32.0 - 36.0 g/dL 05/10/2024 8:47 AM EST [facility] RDW 14.6 11.5 - 15.5 % 05/10/2024 8:47 AM EST [facility] PLT 168 140 - 400 K/uL 05/10/2024 8:47 AM EST [facility] MPV 9.6 6.6 - 11.1 fL 05/10/2024 8:47 AM EST [facility] nRBCs 0 <=0 /100 WBCs 05/10/2024 8:47 AM EST [facility] Blood Venous blood specimen / Unknown Venipuncture / Unknown 05/10/2024 8:23 AM EST 05/10/2024 8:35 AM EST Tricia Fisher MD LAB BLOOD ORDERABLES Final Resul t Performing Organization Address [facility] de Phone Number [place] [address] [place] [address] * (ABNORMAL) HEPARIN, UNFRACTIONATED (05/10/2024 6:58 AM EST) [facility] Heparin, Unfractionated 0.18(H) <0.10 IU/mL 05/10/2024 8:12 AM EST [facility] Comment: Unfractionated therapeutic ranges for Anti Xa activity: For Cardiac/Neurologic treatment: 0.3 to 0.6 IU/mL. For treatment of DVT or Pulmonary Embolism: 0.3 to 0.7 IU/mL. Blood Venous blood specimen / Unknown Venipuncture / Unknown 05/10/2024 6:58 AM EST 05/10/2024 7:05 AM EST John Paul Guerin DO LAB BLOOD ORDERABLES Fin al Result Performing Organization Address 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 These are in the middle anterior cerebral artery distribution. Small petechial hemorrhage in the left postcentral gyrus. Narrative 05/10/2024 8:51 AM EST EXAM MRI BRAIN WITHOUT CONTRAST - 05/10/2024 5:15 am HISTORY L MCA stroke f/u COMPARISON CT head 05/09/2024 TECHNIQUE Axial T1 weighted, fat suppressed T2 weighted, FLAIR, and GRE scans, sagittal T1 weighted scans, and coronal T2 weighted scans of the brain were obtained. Diffusion-weighted imaging was also performed. FINDINGS There are some motion artifacts. Multiple varying size foci of restricted diffusion are present in the left cerebral hemisphere involving the frontal, parietal and temporal lobes, basal ganglia and periventricular white matter. There is corresponding T2 and FLAIR hyperintensity. The largest region is in the left parietal lobe, and shows mild effacement of sulci.. At least 1 focus of susceptibility artifact is present, in the left postcentral gyrus. The right cerebral hemisphere and posterior fossa are spared. There is generalized cerebral volume loss, and patchy T2/FLAIR hyperintensity in the cerebral white matter suggestive of chronic small vessel disease. No hydrocephalus or extra-axial fluid collections. Basal cisterns are well preserved. No orbital lesions. Mild mucosal thickening in the sinuses. Procedure Note Charu Gastelum MD - 05/10/2024 EXAM MRI BRAIN WITHOUT CONTRAST - 05/10/2024 5:15 am HISTORY L MCA stroke f/u COMPARISON CT head 05/09/2024 TECHNIQUE Axial T1 weighted, fat suppressed T2 weighted, FLAIR, and GRE scans,sagittal T1 weighted scans, and coronal T2 weighted scans of the brainwere obtained. Diffusion-weighted imaging was also performed. FINDINGS There are some motion artifacts. Multiple varying size foci of restricted diffusion are present in the leftcerebral hemisphere involving the frontal, parietal and temporal lobes,basal ganglia and periventricular white matter. There is corresponding T2and FLAIR hyperintensity. The largest region is in the left parietallobe, and shows mild effacement of sulci.. At least 1 focus ofsusceptibility artifact is present, in the left postcentral gyrus. The right cerebral hemisphere and posterior fossa are spared. There isgeneralized cerebral volume loss, and patchy T2/FLAIR hyperintensity inthe cerebral white matter suggestive of chronic small vessel disease. Nohydrocephalus or extra-axial fluid collections. Basal cisterns are wellpreserved. No orbital lesions. Mild mucosal thickening in the sinuses. IMPRESSION IMPRESSION Multiple small acute infarcts in the left cerebral hemisphere, the largestin the parietal lobe. These are in the middle anterior cerebral arterydistribution. Small petechial hemorrhage in the left postcentral gyrus. John Paul Guerin DO RAD MRI-MRA Final Re sult * (ABNORMAL) ASPIRIN, VERIFYNOW (05/10/2024 3:39 AM EST) Pathologist [facility] VerifyNow Aspirin 404(L) >=550 ARU 05/10/2024 4:03 AM EST [facility] [place] Venous blood specimen / Unknown Venipuncture / Unknown 05/10/2024 3:39 AM EST 05/10/2024 3:49 AM EST Narrative [facility] [place] 05/10/2024 4:03 AM EST Assay designed to measure the effect of aspirin and it should not be used to detect other platelet functional disorders. >=550 ARU - Aspirin not detected < 550 ARU - Aspirin detected Interfering substances/Test limitations: Do not test patients if on the following medications until platelet function has recovered (timeframe), as they may result in low ARU values; clopidogrel -5 days, ticlopidine- 5 days, prasugrel - 10 days, dipyridamole - 12 hours, cilostazol - 12 hours, Aggrenox (aspirin/dipyridamole) - 10 days, ibuprofen - 8 hours, naproxen - 24 hours, diclofenac - 24 hours, indocin - 24 hours, feldene - 50 hours, tirofiban - 2 days, eptifibatide - 2 days, abciximab - 2 week. Samples may also be affected by low hematocrit (<29%), high hematocrit (>56%), or low platelet counts (<92,000/cmm). Patients on ticagrelor or with inherited platelet disorders have not been studied using this assay and the ability of the assay to detect aspirin usage in these patients is unknown. Sathya Farah PA-C LAB BLOOD ORDERAB LES Final Result [facility] [address] [place] [address] * CALCIUM, IONIZED (05/10/2024 3:35 AM EST) Calcium, Ionized 1.15 1.13 - 1.32 mmol/L 05/10/2024 4:23 AM EST LAB[facility]AT[facility] Comment:This test was develo ped and its performance characteristics dtermined by [employer]. It has not been cleared or approved by the US Food and Drug Administration Blood Venous blood specimen / Unknown Venipuncture / Unknown 05/10/2024 3:35 AM EST 05/10/2024 3:43 AM EST Fred Medrano PA-C LAB BLOOD ORDERABLES Fin al Result Performing Organization Address [facility] Co de Phone Number LABORATORY [place] [address] [place] [address] * PHOSPHORUS (05/10/2024 3:35 AM EST) Phosphorus 4.0 2.5 - 4.8 mg/dL 05/10/2024 4:07 AM EST [facility] Blood Venous blood specimen / Unknown Venipuncture / Unknown 05/10/2024 3:35 AM EST 05/10/2024 3:43 AM EST Fred Medrano PA-C LAB BLOOD ORDERABLES Fin al Result Performing Organization Address City/[facility] Co de Phone Number LABORATORY [place] [address] [place] [address] * MAGNESIUM (05/10/2024 3:35 AM EST) Magnesium 2.4 1.5 - 2.6 mg/dL 05/10/2024 4:07 AM EST [facility] Blood Venous blood specimen / Unknown Venipuncture / Unknown 05/10/2024 3:35 AM EST 05/10/2024 3:43 AM EST Fred Medrano PA-C LAB BLOOD ORDERABLES Fin al Result Performing Organization Address City/State/[facility] Co de Phone Number [facility] [address] [place] [address] * (ABNORMAL) PT INR (05/10/2024 3:35 AM EST) Prothrombin Time 15.5(H) 11.6 - 15.2 seconds 05/10/2024 3:56 AM EST [facility] INR 1.2 0.8 - 1.2 05/10/2024 3:56 AM EST [facility] Blood Venous blood specimen / Unknown Venipuncture / Unknown 05/10/2024 3:35 AM EST 05/10/2024 3:43 AM EST Narrative [facility] - 05/10/2024 3:56 AM EST Warfarin Therapy INR: 2.0-3.0 conventional anticoagulation INR: 2.5-3.5 high intensity anticoagulation John Paul Guerin LAB BLOOD ORDERABLES Fin al Result Performing Organization Address [facility] de Phone Number [facility] [address] [place] [address] * (ABNORMAL) CBC (05/10/2024 3:35 AM EST) WBC 12.48(H) 4.00 - 10.80 K/uL 05/10/2024 3:54 AM EST [facility] RBC 4.77 4.50 - 5.25 M/uL 05/10/2024 3:54 AM EST [facility] HGB 14.7 14.0 - 16.8 g/dL 05/10/2024 3:54 AM EST [facility] HCT 43.0 40.0 - 48.4 % 05/10/2024 3:54 AM EST [facility] MCV 90.1 82.0 - 99.5 fL 05/10/2024 3:54 AM EST [facility] MCH 30.8 27.0 - 34.0 pg 05/10/2024 3:54 AM EST [facility] MCHC 34.2 32.0 - 36.0 g/dL 05/10/2024 3:54 AM EST [facility] RDW 14.5 11.5 - 15.5 % 05/10/2024 3:54 AM EST [facility] PLT 181 140 - 400 K/uL 05/10/2024 3:54 AM EST [facility] MPV 9.9 6.6 - 11.1 fL 05/10/2024 3:54 AM EST [facility] nRBCs 0 <=0 /100 WBCs 05/10/2024 3:54 AM EST [facility] Blood Venous blood specimen / Unknown Venipuncture / Unknown 05/10/2024 3:35 AM EST 05/10/2024 3:43 AM EST John Paul Guerin DO LAB BLOOD ORDERABLES Fin al Result [facility] [address] [place] [address] * (ABNORMAL) P2Y12 INHIBITOR REACTIVITY (CLOPIDOGREL), VERIFYNOW (05/10/2024 3:35 AM EST) VerifyNow P2Y12 179(L) 182 - 335 PRU 05/10/2024 3:54 AM EST [facility] Blood Venous blood specimen / Unknown Venipuncture / Unknown 05/10/2024 3:35 AM EST 05/10/2024 3:49 AM EST Narrative [facility] [place] 05/10/2024 3:54 AM EST Assay measures the level of platelet P2Y12 receptor blockade from clopidogrel and it should not be used to detect other platelet functional disorders. This test is not to be used for therapeutic monitoring. >=182 P2Y12 inhibitory drug (clopidogrel) NOT detected % clopidogrel inhibition = (Baseline PRU - Post-treatment PRU) / Baseline PRU x100 <10% inhibition indicated the patient is resistant to therapy and recommend different antiplatelet medication Interfering substances/Test limitations: Do not test patients if on the following medications until platelet function has recovered (timeframe), as they may result in low ARU values; dipyridamole - 12 hours, cilostazol - 12 hours, Aggrenox (aspirin/dipyridamole) - 10 days. Samples may also be affected by low hematocrit (<29%), high hematocrit (>56%), or low platelet counts (<92,000/cmm). Patients on ticlopidine, prasugrel, and ticagrelor or with inherited platelet disorders have not been studied using this assay and the ability of the assay to detect these drugs or clopidogrel usage in these patients is unknown. Sathya Farah PA-C LAB BLOOD ORDERAB LES Final Result Performing Organization Address [facility] de Phone Number LABORATORY [address] [address] * (ABNORMAL) HEPARIN, UNFRACTIONATED (05/10/2024 1:14 AM EST) [facility] Heparin, Unfractionated 0.24(H) <0.10 IU/mL 05/10/2024 1:33 AM EST [facility] Comment: Unfractionated therapeutic ranges for Anti Xa activity: For Cardiac/Neurologic treatment: 0.3 to 0.6 IU/mL. For treatment of DVT or Pulmonary Embolism: 0.3 to 0.7 IU/mL. Blood Venous blood specimen / Unknown Venipuncture / Unknown 05/10/2024 1:14 AM EST 05/10/2024 1:18 AM EST John Paul Guerin DO LAB BLOOD ORDERABLES Fin al Result Performing Organization Address [facility] de Phone Number LABORATORY [place] [address] [place] [address] * (ABNORMAL) EEG [facility] (05/10/2024) Narrative Martha Benavidez TECH - 05/10/2024 [facility]-NEUROPHYSIOLOGY COMMENTS: NAME: Fabien Little Jr. MACHINE:[id number] MEDS: precedex HISTORY: 84 yo with history of HTN, and CKD stage 3A presenting from [facility] for evaluation of R hemiparesis and expressive aphasia concerning for acute infarct found on CTA there to have an L M2 occlusion. He received TNK at 12:57PM with initial improvement however noted around midnight to develop worsening hemiparesis and more profound aphasia. He was transferred for thrombectomy. On DSA today, patient appeared to have recanalized L M2 however with significant stenosis of the L carotid now s/p stenting. Intra-op patient received ASA load, now on heparin gtt neuro nomogram. DATE/TIME STARTED: 05/09@2105 DATE/TIME ENDED: 05/11@920 DAY:1 DATE: 05/09-05/10 TIME: PB/EVENTS: COMMENTS: Abnormal: This EEG is abnormal due to the presence of: 1. Moderate to severe diffuse slowing. REPORTING PHYS: GILMA BILLING:Hookup and 24hrs on 05/09 DAY: 2 DATE: 05/10-05/11 TIME: PB/EVENTS: COMMENTS: Diffuse slowing/cfSummary of Findings: Abnormal: This EEG is abnormal due to the presence of: 1. Moderate diffuse slowing, improved from previous. No seizures noted. REPORTING PHYS: GILMA BILLING: x24 on 05/10 DAY: 3 DATE: 05/11 TIME: PB/EVENTS: COMMENTS: diffuse slowing, right attenuation/lahSummary of Findings: Abnormal: This EEG is abnormal due to the presence of: 1. Moderate diffuse slowing, improved from previous. No seizures noted. REPORTING PHYS: GILMA BILLING: [place] Garett Navarrete MD MEDICINE Final Resul t * CT HEAD/BRAIN WO CONTRAST (05/09/2024 10:01 PM EST) Anatomical Region Laterality Modality Head Computed Tomogra phy 05/10/2024 1:42 AM EST Impressions 05/10/2024 1:[address] HEAD/BRAIN WO CONTRAST: Artifact degraded exam. 1. No acute hemorrhage. Probable moderate sized acute left MCA territory infarct is redemonstrated. Left MCA territory edema and sulcal effacement has increased. No hemorrhage. Recommend further evaluation with non-contrast MRI of the brain. Added to DRYING ROOM ATTENDANT result communication system on 05/10/2024 at 1:38 am. Narrative 05/10/2024 1:[address] HEAD/BRAIN WO CONTRAST - 05/09/2024 HISTORY decreasing mental status COMPARISON CT HEAD_BRAIN WO CONTRAST, ACC: [id number], dated 2024-05-09 12:26:57; CT HEAD_BRAIN WO CONTRAST, ACC: [id number], dated 2024-05-09 07:25:03 TECHNIQUE Computed tomography of the head was performed without contrast. Axial and reformatted coronal/sagittal images were provided. Images were reviewed in bone, subdural, soft tissue, brain, and stroke windows. FINDINGS No acute intracranial hemorrhage, mass effect, significant midline shift/downward herniation, or convincing acute extra-axial fluid collection. No calvarial fracture. Probable moderate sized acute left MCA territory infarct is redemonstrated. Left cerebral sulcal effacement/edema is redemonstrated. Additional scattered hypodensities the appear to be artifactual. Atherosclerotic changes. Global parenchymal volume loss with proportionate sulcal prominence. No hydrocephalus. Non-specific hypodensities in the bilateral periventricular and subcortical white matter favor chronic microvascular ischemic disease in this age group. Murdock-white matter differentiation is otherwise preserved. No acute orbital finding. No evidence for acute sinusitis. Trace right mastoid air cell fluid. Cerumen in the right ear canal. Procedure Note Saul Barros MD - 05/10/[address] HEAD/BRAIN WO CONTRAST - 05/09/2024 HISTORY decreasing mental status COMPARISON CT HEAD_BRAIN WO CONTRAST, ACC: [id number], dated 2024-05-09 12:26:57; CT HEAD_BRAIN WO CONTRAST, ACC: [id number], dated 2024-05-09 07:25:03 TECHNIQUE Computed tomography of the head was performed without contrast. Axial andreformatted coronal/sagittal images were provided. Images were reviewed inbone, subdural, soft tissue, brain, and stroke windows. FINDINGS No acute intracranial hemorrhage, mass effect, significant midlineshift/downward herniation, or convincing acute extra-axial fluidcollection. No calvarial fracture. Probable moderate sized acute leftMCA territory infarct is redemonstrated. Left cerebral sulcaleffacement/edema is redemonstrated. Additional scattered hypodensitiesthe appear to be artifactual. Atherosclerotic changes. Global parenchymal volume loss with proportionatesulcal prominence. No hydrocephalus. Non-specific hypodensities in thebilateral periventricular and subcortical white matter favor chronicmicrovascular ischemic disease in this age group. Murdock-white matterdifferentiation is otherwise preserved. No acute orbital finding. No evidence for acute sinusitis. Trace rightmastoid air cell fluid. Cerumen in the right ear canal. IMPRESSION IMPRESSION CT HEAD/BRAIN WO CONTRAST: Artifact degraded exam. 1. No acute hemorrhage. Probable moderate sized acute left MCA territoryinfarct is redemonstrated. Left MCA territory edema and sulcal effacementhas increased. No hemorrhage. Recommend further evaluation withnon-contrast MRI of the brain. Added to [employer]YING RO[employer] ATTENDANT result communication system on 05/10/2024 at 1:38 am. Fred Medrano PA-C RAD CT Final Re sult * (ABNORMAL) WHOLE BLOOD PROFILE, VENOUS (05/09/2024 9:21 PM EST) Temperature 37.0 C 05/09/2024 9:37 PM EST [facility] pH, Venous 7.401 7.320 - 7.430 units 05/09/2024 9:37 PM EST [facility] pCO2, Venous 36.6(L) 40.0 - 60.0 mmHg 05/09/2024 9:37 PM EST [facility] pO2, Venous 86.3(H) 25.0 - 50.0 mmHg 05/09/2024 9:37 PM EST [facility] Base Excess, Venous -1.5 -2.0 - 2.0 mmol/L 05/09/2024 9:37 PM EST [facility] HGB 16.1 14.0 - 16.8 g/dL 05/09/2024 9:37 PM EST [facility] Oxyhemoglobin, Venous 95.2(H) 40.0 - 85.0 % total Hgb 05/09/2024 9:37 PM EST [facility] Carboxyhemoglobi n, Whole Blood 1.4 <=1.5 % total Hgb 05/09/2024 9:37 PM EST [facility] Comment:Smokers: 0-9.0 % Methemoglobin, Whole Blood 0.7 <=1.5 % total Hgb 05/09/2024 9:37 PM EST [facility] Reduced Hemoglobin, Venous 2.7 % total Hgb 05/09/2024 9:37 PM EST [facility] O2 Content, Venous 21.6(H) 7.0 - 18.0 %vol 05/09/2024 9:37 PM EST [facility] Potassium 4.4 3.5 - 5.1 mmol/L 05/09/2024 9:37 PM EST [facility] Sodium 137 135 - 146 mmol/L 05/09/2024 9:37 PM EST [facility] Chloride 104 98 - 107 mmol/L 05/09/2024 9:37 PM EST [facility] Calcium, Ionized 1.16 1.13 - 1.32 mmol/L 05/09/2024 9:37 PM EST [facility] Anion Gap 10.3 7.0 - 15.0 mmol/L 05/09/2024 9:37 PM EST [facility] Glucose 188(H) 70 - 120 mg/dL 05/09/2024 9:37 PM EST [facility] Bicarbonate, Whole Blood 22.3(L) 23.0 - 31.0 mmol/L 05/09/2024 9:37 PM EST [facility] Blood Venous blood specimen / Unknown Venipuncture / Unknown 05/09/2024 9:21 PM EST 05/09/2024 9:25 PM EST Fred Medrano PA-C LAB BLOOD ORDERABLES Fin al Result Performing Organization Address City/[facility]/ZIP Co de Phone Number [facility]AT[facility] [place] [address] [place] [address] * (ABNORMAL) HEPARIN, UNFRACTIONATED (05/09/2024 6:47 PM EST) [facility] Heparin, Unfractionated 0.33(H) <0.10 IU/mL 05/09/2024 7:09 PM EST [facility] Comment: Unfractionated therapeutic ranges for Anti Xa activity: For Cardiac/Neurologic treatment: 0.3 to 0.6 IU/mL. For treatment of DVT or Pulmonary Embolism: 0.3 to 0.7 IU/mL. Blood Venous blood specimen / Unknown Venipuncture / Unknown 05/09/2024 6:47 PM EST 05/09/2024 6:52 PM EST John Paul Guerin DO LAB BLOOD ORDERABLES Fin al Result [facility] [address] [place] [address] * XR ABDOMEN 1 VIEW (05/09/2024 6:11 PM EST) Anatomical Region Laterality Modality Abdomen, Pelvis Computed Radiogr aphy 05/09/2024 6:16 PM EST Impressions 05/09/2024 6:30 PM EST IMPRESSION Enteric tube in adequate position. I have personally reviewed this examination and agree with the resident/fellow physician's interpretation. Narrative 05/09/2024 6:30 PM EST EXAM XR ABDOMEN 1 VIEW - 05/09/2024 6:11 pm HISTORY Gastric Tube placement verification TECHNIQUE One radiograph of the abdomen and pelvis is submitted. FINDINGS Catheters/tubes/devices/foreign bodies: Enteric tube crosses the diaphragm with the distal tip projecting over the stomach. Nonobstructive bowel gas pattern. The osseous structures are unremarkable. The lung bases are clear. Procedure Note Harriet Major DO - 05/09/2024 EXAM XR ABDOMEN 1 VIEW - 05/09/2024 6:11 pm HISTORY Gastric Tube placement verification TECHNIQUE One radiograph of the abdomen and pelvis is submitted. FINDINGS Catheters/tubes/devices/foreign bodies: Enteric tube crosses the diaphragmwith the distal tip projecting over the stomach. Nonobstructive bowel gas pattern. The osseous structures are unremarkable. The lung bases are clear. IMPRESSION IMPRESSION Enteric tube in adequate position. I have personally reviewed this examination and agree with the resident/fellow physician's interpretation. us John Paul Guerin DO RADIOLOGY (RAD GENERAL) Final Result * ECHO, COMPLETE (2D), TRANS-THORACIC (05/09/2024 1:38 PM EST) LEFT VENTRICULAR EJECTION FRACTION 55 % [facility] 05/09/2024 11:5 5 AM EST us John Paul Guerin DO ECHOCARDIOLOGY Final Re sult [facility] * NEURO IR IMAGING (05/09/2024 12:59 PM EST) Narrative Scheduling, Silent - 05/09/2024 1:00 PM EST This procedure will not be read by a Radiologist. Please see operative note. us Crispin Nelson MD RAD SPECIAL PROCEDURES Final Res ult * CT HEAD/BRAIN WO CONTRAST (05/09/2024 12:32 PM EST) Anatomical Region Laterality Modality Head Computed Tomogra phy 05/09/2024 12:4 9 PM EST Impressions 05/09/2024 12:47 PM EST IMPRESSION: Suspected subtle left MCA territory infarct with left-sided cerebral edema. No discrete parenchymal hematoma. Narrative 05/09/2024 12:47 PM EST EXAM: CT HEAD/BRAIN WO CONTRAST 05/09/2024 HISTORY: f/u stroke, dual energy TECHNIQUE: Axial CT imaging of the head was performed from the skull base to the vertex without intravenous contrast. Coronal and sagittal reformats were processed. COMPARISON: CT brain perfusion 05/09/2024, diagnostic cerebral angiogram 05/09/2024 FINDINGS: There is recirculating intravenous contrast from recent angiography. There is mild sulcal effacement throughout the left MCA territory likely on account of cerebral edema, with mild patchy hypoattenuation of the left centrum semiovale potentially due to early ischemia. There is no discrete parenchymal hematoma. Some trace gyriform hyperattenuation throughout the left MCA territory may be on account of hemosiderin stating versus minimal petechial hemorrhage. There is otherwise [id number] cerebral volume loss. No extra-axial fluid collection or midline shift. The basal cisterns are patent. The visualized paranasal sinuses and mastoid air cells are clear. Procedure Note Peterson Melgar MD - 05/09/2024 EXAM: CT HEAD/BRAIN WO CONTRAST 05/09/2024 HISTORY: f/u stroke, dual energy TECHNIQUE: Axial CT imaging of the head was performed from the skull base to thevertex without intravenous contrast. Coronal and sagittal reformats wereprocessed. COMPARISON: CT brain perfusion 05/09/2024, diagnostic cerebral angiogram 05/09/2024 FINDINGS: There is recirculating intravenous contrast from recent angiography. There is mild sulcal effacement throughout the left MCA territory likelyon account of cerebral edema, with mild patchy hypoattenuation of the leftcentrum semiovale potentially due to early ischemia. There is no discreteparenchymal hematoma. Some trace gyriform hyperattenuation throughout theleft MCA territory may be on account of hemosiderin stating versus minimalpetechial hemorrhage. There is otherwise tyko-tl-bqagnbyg cerebral volume loss. No extra-axialfluid collection or midline shift. The basal cisterns are patent. Thevisualized paranasal sinuses and mastoid air cells are clear. IMPRESSION IMPRESSION: Suspected subtle left MCA territory infarct with left-sided cerebraledema. No discrete parenchymal hematoma. John Paul Guerin DO RAD CT Final Re sult * EKG (05/09/2024 11:27 AM EST) 05/09/2024 11:2 7 AM EST Narrative Procedure Note Daniel Collado MD - 05/09/2024 11:27 AM EST REASON FOR STUDY: Nausea CONCLUSIONS: Normal sinus rhythm Prolonged QT interval or tu fusion, consider myocardial disease,electrolyte imbalance, or drug effects Abnormal ECG When compared with ECG of 19-Sep-2023 08:34, Sinus rhythm has replaced Junctional rhythm Nonspecific T wave abnormality no longer evident in Inferior leads QT has lengthened Ventricular Rate: 76 Atrial Rate: 76 MS Interval: 188 QRS Duration: 100 QT/QTc: 432/486 ms P-R-T [place]: 55 : 54 : 71 degrees Napoleon Gresham MD EKG Final Result [facility] * MRSA SCREEN, PCR (05/09/2024 11:16 AM EST) Pathologist [facility] [place] MRSA PCR Result Negative Negative 2:37 PM EST LABORATORY C Comment:No Methicillin resis tant Staphylococcus aureus detected by PCR (amplified probe). Upper Respiratory Swab of internal nose / Unknown Non-blood Collection / Unknown 05/09/2024 11:16 AM EST 05/09/2024 1:10 PM EST John Paul Guerin DO LAB MICRO - GENERAL ORDE RABLES Final Result [facility] [address] [place] [address] * (ABNORMAL) HEPARIN, UNFRACTIONATED (05/09/2024 10:27 AM EST) Pathologist [facility] [place] Heparin, Unfractionated >1.10(HH) <0.10 IU/mL 05/09/2024 11:01 AM EST [facility] Comment:Results rechecked. Blood Venous blood specimen / Unknown Venipuncture / Unknown 05/09/2024 10:27 AM EST 05/09/2024 10:32 AM EST us John Paul Guerin DO LAB BLOOD ORDERABLES Fin al Result Performing Organization Address City/[facility]/ZIP Co de Phone Number [facility] [address] [place] [address] * CBC (05/09/2024 10:27 AM EST) [facility] WBC 9.60 4.00 - 10.80 K/uL 05/09/2024 10:51 AM EST [facility] RBC 5.25 4.50 - 5.25 M/uL 05/09/2024 10:51 AM EST [facility] HGB 15.6 14.0 - 16.8 g/dL 05/09/2024 10:51 AM EST [facility] HCT 48.1 40.0 - 48.4 % 05/09/2024 10:51 AM EST [facility] MCV 91.6 82.0 - 99.5 fL 05/09/2024 10:51 AM EST [facility] MCH 29.7 27.0 - 34.0 pg 05/09/2024 10:51 AM EST [facility] MCHC 32.4 32.0 - 36.0 g/dL 05/09/2024 10:51 AM EST [facility] RDW 14.6 11.5 - 15.5 % 05/09/2024 10:51 AM EST [facility] PLT 187 140 - 400 K/uL 05/09/2024 10:51 AM EST [facility] MPV 9.6 6.6 - 11.1 fL 05/09/2024 10:51 AM EST [facility] nRBCs 0 <=0 /100 WBCs 05/09/2024 10:51 AM EST [facility] Blood Venous blood specimen / Unknown Venipuncture / Unknown 05/09/2024 10:27 AM EST 05/09/2024 10:44 AM EST John Paul Camposteve Guerin LAB BLOOD ORDERABLES Fin al Result Performing Organization Address [facility]/ZIP Co de Phone Number LABORATORY [address] [address] * (ABNORMAL) APTT (05/09/2024 10:27 AM EST) aPTT >200(HH) 21 - 38 seconds 05/09/2024 11:01 AM EST [facility] Comment:Results rechecked. Blood Venous blood specimen / Unknown Venipuncture / Unknown 05/09/2024 10:27 AM EST 05/09/2024 10:32 AM EST Narrative [facility] - 05/09/2024 11:01 AM EST Anticoagulation may affect testing. Refer to [employer] Test Catalog for a list of effects. John Paul Guerin LAB BLOOD ORDERABLES Fin al Result Performing Organization Address [facility] de Phone Number LABORATORY [address] [address] * (ABNORMAL) PT INR (05/09/2024 10:27 AM EST) Prothrombin Time 16.1(H) 11.6 - 15.2 seconds 05/09/2024 10:55 AM EST [facility] INR 1.3(H) 0.8 - 1.2 05/09/2024 10:55 AM EST [facility] Blood Venous blood specimen / Unknown Venipuncture / Unknown 05/09/2024 10:27 AM EST 05/09/2024 10:32 AM EST Narrative [facility] - 05/09/2024 10:55 AM EST Warfarin Therapy INR: 2.0-3.0 conventional anticoagulation INR: 2.5-3.5 high intensity anticoagulation John Paul Guerin DO LAB BLOOD ORDERABLES Fin al Result [facility] [address] [place] [address] * ACT, POINT OF CARE (05/09/2024 9:27 AM EST) Pathologist [facility] [place] ACT 193 50 - 1,000 secs 05/09/2024 2:09 PM EST [employer] Blood 05/09/2024 9:27 AM EST 05/09/2024 2:09 PM EST [email or web address] - 05/09/2024 2:09 PM EST NORMAL (NON-HEPARINIZED) 74-137 SECONDS HEPARINIZED 200+ SECONDS CRITICAL GREATER THAN 1000 SECONDS Iman Torresabarti Pulakanti DO LAB POI NT OF CARE TEST DOCKED DEVICE UNSOLICITED RESULTS Final Result [facility] [employer] [facility] [address] [place] [address] * ACT, POINT OF CARE (05/09/2024 9:17 AM EST) [facility] ACT 124 50 - 1,000 secs 05/09/2024 2:09 PM EST [employer] Blood 05/09/2024 9:17 AM EST 05/09/2024 2:09 PM EST [email or web address] - 05/09/2024 2:09 PM EST NORMAL (NON-HEPARINIZED) 74-137 SECONDS HEPARINIZED 200+ SECONDS CRITICAL GREATER THAN 1000 SECONDS Satabdi Joe Pulakanti DO LAB POI NT OF CARE TEST DOCKED DEVICE UNSOLICITED RESULTS Final Result [facility] [address] [place] [address] * XR CHEST 1 VIEW (05/09/2024 8:13 AM EST) Anatomical Region Laterality Modality Chest Computed Radiogr aphy 05/09/2024 8:36 AM EST Impressions 05/09/2024 8:33 AM EST IMPRESSION Hypoventilatory changes. No specific consolidations. Narrative 05/09/2024 8:33 AM EST EXAM XR CHEST 1 VIEW - 05/09/2024 8:13 am HISTORY ?aspiration COMPARISON RADIOLOGY EXAM - CT (IMAGES ONLY, NO REPORT), ACC: [id number], dated 2024-05-08 11:49:32 TECHNIQUE Frontal view of the chest. FINDINGS Support apparatus: None. Bronchovascular crowding. No specific consolidations, pleural effusion or pneumothorax. Cardiomediastinal silhouette and pulmonary vasculature within normal limits. Procedure Note Jose Juan Caruso II, MD - 05/09/2024 EXAM XR CHEST 1 VIEW - 05/09/2024 8:13 am HISTORY ?aspiration COMPARISON RADIOLOGY EXAM - CT (IMAGES ONLY, NO REPORT), ACC: [id number], [id number] 11:49:32 TECHNIQUE Frontal view of the chest. FINDINGS Support apparatus: None. Bronchovascular crowding. No specific consolidations, pleural effusion orpneumothorax. Cardiomediastinal silhouette and pulmonary vasculaturewithin normal limits. IMPRESSION IMPRESSION Hypoventilatory changes. No specific consolidations. us Napoleon Gresham MD RADIOLOGY (RAD GENERAL) Stacy amor Result * LIPID PANEL WITH DIRECT LDL IF TG IS HIGH (05/09/2024 7:54 AM EST) Triglycerides 107 <=174 mg/dL 05/09/2024 9:46 AM EST [facility] Comment: Triglyceride Reference Ranges (mg/dL): <150 Acceptable 150-174 Borderline high 175-499 High >=500 Very high Cholesterol 196 <200 mg/dL 05/09/2024 9:46 AM EST [facility] Comment: Total Cholesterol Reference Ranges (mg/dL): <200 Desirable 200-239 Borderline high >=240 High HDL Cholesterol 51 >39 mg/dL 9:46 AM EST [facility] Comment: HDL Cholesterol Reference Ranges (mg/dL): >=60 High (Desirable) <50 Low (Undesirable) For Females <40 Low (Undesirable) For Males Non-HDL Cholesterol 145 <=159 mg/dL 05/09/2024 9:46 AM EST [facility] Comment: Non-HDL Cholesterol Reference Range (mg/dL): <100 Target level for high risk ASCVD patient <130 Optimal for general population 130-159 Near optimal for general population 160-189 Borderline High 190-219 High >=220 Very High LDL Cholesterol 124 <=129 mg/dL 05/09/2024 9:46 AM EST [facility] Comment: LDL Cholesterol Reference Ranges (mg/dL): <70 Target level for high risk ASCVD patient <100 Optimal for general population 100-129 Near optimal for general population 130-159 Borderline high 160-189 High >=190 Very high Blood Venous blood specimen / Unknown Venipuncture / Unknown 05/09/2024 7:54 AM EST 05/09/2024 7:59 AM EST John Paul Guerin DO LAB BLOOD ORDERABLES Fin al Result Performing Organization Address [facility] de Phone Number LAB[facility]ATORY [place] [address] [place] [address] * (ABNORMAL) HEMOGLOBIN A1C (05/09/2024 7:54 AM EST) [facility] Hemoglobin A1C 7.1(H) 4.0 - 5.6 % 05/09/2024 8:59 AM EST [facility] Comment:The use of HbA1c to monitor glycemic status is based on normal hemoglobin and HbA composition. This test should not be used in patients with abnormal hemoglobin that affects the half life of the red blood cell or the in vivo glycation rates. Estimated Average Glucose 157(H) <126 mg/dL 05/09/2024 8:59 AM EST [facility] Blood Venous blood specimen / Unknown Venipuncture / Unknown 05/09/2024 7:54 AM EST 05/09/2024 7:59 AM EST John Paul Guerin DO LAB BLOOD ORDERABLES Fin al Result Performing Organization Address [facility] de Phone Number [facility] [address] [place] [address] * PT INR (05/09/2024 7:54 AM EST) Prothrombin Time 14.2 11.6 - 15.2 seconds 05/09/2024 8:20 AM EST [facility] INR 1.1 0.8 - 1.2 05/09/2024 8:20 AM EST [facility] Blood Venous blood specimen / Unknown Venipuncture / Unknown 05/09/2024 7:54 AM EST 05/09/2024 8:00 AM EST Narrative [facility] - 05/09/2024 8:20 AM EST Warfarin Therapy INR: 2.0-3.0 conventional anticoagulation INR: 2.5-3.5 high intensity anticoagulation us Napoleon Gresham MD LAB BLOOD ORDERABLES Final R esult [facility] [address] [place] [address] * (ABNORMAL) DIFFERENTIAL, AUTOMATED (05/09/2024 7:54 AM EST) Pathologist [facility] [place] WBC 8.23 4.00 - 10.80 K/uL 05/09/2024 8:11 AM EST [facility] Neutrophils % 83.4(H) 40.0 - 75.0 % 05/09/2024 8:11 AM EST [facility] Lymphocytes % 9.4(L) 18.0 - 42.0 % 05/09/2024 8:11 AM EST [facility] Monocytes % 6.1 1.0 - 11.0 % 05/09/2024 8:11 AM EST [facility] Eosinophils % 0.1 0.0 - 6.0 % 05/09/2024 8:11 AM EST [facility] Basophils % 0.5 0.0 - 2.0 % 05/09/2024 8:11 AM EST [facility] Immature Granulocytes % 0.5 0.0 - 2.0 % 05/09/2024 8:11 AM EST [facility] Absolute Neutrophils 6.87 1.80 - 7.70 K/uL 05/09/2024 8:11 AM EST [facility] Absolute Lymphocytes 0.77(L) 1.00 - 4.80 K/ul 05/09/2024 8:11 AM EST [facility] Absolute Monocytes 0.50 0.00 - 1.10 K/uL 05/09/2024 8:11 AM EST [facility] Absolute Eosinophils 0.01 0.00 - 0.70 K/uL 05/09/2024 8:11 AM EST [facility] Absolute Basophils 0.04 0.00 - 0.20 K/uL 05/09/2024 8:11 AM EST [facility] Absolute Immature Granulocytes 0.04 0.00 - 0.20 K/uL 05/09/2024 8:11 AM EST [facility] Blood Venous blood specimen / Unknown Venipuncture / Unknown 05/09/2024 7:54 AM EST 05/09/2024 7:59 AM EST us Napoleon Gresham MD LAB BLOOD ORDERABLES Final R esult Performing Organization Address City/State/[facility] Co de Phone Number [facility] [address] [place] [address] * (ABNORMAL) CBC (05/09/2024 7:54 AM EST) WBC 8.23 4.00 - 10.80 K/uL 05/09/2024 8:11 AM EST [facility] RBC 5.39 4.50 - 5.25 M/uL 05/09/2024 8:11 AM EST [facility] HGB 16.0 14.0 - 16.8 g/dL 05/09/2024 8:11 AM EST [facility] HCT 48.6(H) 40.0 - 48.4 % 05/09/2024 8:11 AM EST [facility] MCV 90.2 82.0 - 99.5 fL 05/09/2024 8:11 AM EST [facility] MCH 29.7 27.0 - 34.0 pg 05/09/2024 8:11 AM EST [facility] MCHC 32.9 32.0 - 36.0 g/dL 05/09/2024 8:11 AM EST [facility] RDW 14.6 11.5 - 15.5 % 05/09/2024 8:11 AM EST [facility] PLT 186 140 - 400 K/uL 05/09/2024 8:11 AM EST [facility] MPV 9.5 6.6 - 11.1 fL 05/09/2024 8:11 AM EST [facility] nRBCs 0 <=0 /100 WBCs 05/09/2024 8:11 AM EST [facility] Blood Venous blood specimen / Unknown Venipuncture / Unknown 05/09/2024 7:54 AM EST 05/09/2024 7:59 AM EST Napoleon Gresham MD LAB BLOOD ORDERABLES Final R esult Performing Organization Address City/[facility]/ZIP Co de Phone Number LAB[facility]ATORY [facility] [address] [place] [address] * (ABNORMAL) TROPONIN T, HIGH SENSITIVITY (05/09/2024 7:54 AM EST) Troponin T, High Sensitivity 26(H) <=22 ng/L 05/09/2024 8:31 AM EST [facility] Blood Venous blood specimen / Unknown Venipuncture / Unknown 05/09/2024 7:54 AM EST 05/09/2024 7:59 AM EST us Napoleon Gresham MD LAB BLOOD ORDERABLES Final R esult Performing Organization Address City/[facility]/ZIP Co de Phone Number [facility] [address] [place] [address] * (ABNORMAL) COMPREHENSIVE METABOLIC PANEL (05/09/2024 7:54 AM EST) BUN 22(H) 6 - 20 mg/dL 05/09/2024 8:20 AM EST LABORATORY [facility] CREATININE 1.4(H) 0.6 - 1.2 mg/dL 05/09/2024 8:20 AM EST [facility] EGFR 50(L) >=60 mL/min 05/09/2024 8:20 AM EST [facility] Comment:eGFR is calculated b ased on the CKD-EPI 2020 equation. SODIUM 132(L) 135 - 146 mmol/L 05/09/2024 8:20 AM EST [facility] POTASSIUM 4.3 3.5 - 5.1 mmol/L 05/09/2024 8:20 AM EST [facility] CHLORIDE 98 98 - 107 mmol/L 05/09/2024 8:20 AM EST [facility] CO2 21(L) 22 - 32 mmol/L 05/09/2024 8:20 AM EST [facility] ANION GAP 13 7 - 15 mmol/L 05/09/2024 8:20 AM EST [facility] GLUCOSE 172(H) 70 - 120 mg/dL 05/09/2024 8:20 AM EST [facility] Albumin 4.1 3.8 - 5.0 g/dL 05/09/2024 8:20 AM EST [facility] AST 15 10 - 50 U/L 05/09/2024 8:20 AM EST [facility] Comment:Results may be false ly elevated due to hemolysis. Alkaline Phosphatase 96 35 - 130 U/L 05/09/2024 8:20 AM EST [facility] Bilirubin, Total 0.8 <=1.2 mg/dL 05/09/2024 8:20 AM EST [facility] CALCIUM 8.9 8.4 - 10.2 mg/dL 05/09/2024 8:20 AM EST [facility] Protein 7.1 6.0 - 8.3 g/dL 05/09/2024 8:20 AM EST [facility] ALT 10 10 - 50 U/L 05/09/2024 8:20 AM EST [facility] Blood Venous blood specimen / Unknown Venipuncture / Unknown 05/09/2024 7:54 AM EST 05/09/2024 7:59 AM EST us Napoleon Gresham MD LAB BLOOD ORDERABLES Final R esult [facility] [address] [place] [address] * RADIOLOGY EXAM - CT (IMAGES ONLY, NO REPORT) (05/09/2024 7:43 AM EST) Narrative Scheduling, Silent - 05/09/2024 7:43 AM EST This is an imaging study not interpreted or resulted by a [facility] or [facility] contracted radiologist. us Napoleon Gresham MD RAD CT Final Result * RADIOLOGY EXAM - CT (IMAGES ONLY, NO REPORT) (05/09/2024 7:43 AM EST) Narrative Scheduling, Silent - 05/09/2024 7:43 AM EST This is an imaging study not interpreted or resulted by a [facility] or [facility] contracted radiologist. Result [facility] us Napoleon Gresham MD RAD CT Final Result * RADIOLOGY EXAM - CT (IMAGES ONLY, NO REPORT) (05/09/2024 7:43 AM EST) Narrative Scheduling, Silent - 05/09/2024 7:43 AM EST This is an imaging study not interpreted or resulted by a [facility] or [facility] contracted radiologist. Result [facility] us Napoleon Gresham MD RAD CT Final Result * RADIOLOGY EXAM - CT (IMAGES ONLY, NO REPORT) (05/09/2024 7:42 AM EST) Narrative Scheduling, Silent - 05/09/2024 7:43 AM EST This is an imaging study not interpreted or resulted by a [facility] or [facility] contracted radiologist. Result [facility] [facility] Napoleon Gresham MD RAD CT Final Result * CT HEAD/BRAIN WO CONTRAST (05/09/2024 7:38 AM EST) Anatomical Region Laterality Modality Head Computed Tomogra phy 05/09/2024 8:38 AM EST Impressions 05/09/2024 8:36 AM EST IMPRESSION 1. No acute intracranial abnormality detected by CT, including no evidence of cerebral hemorrhage. 2. Perfusion imaging results as above. Above findings were added to our urgent results communication system on 408:[id number] Narrative 05/09/2024 8:[address] HEAD/BRAIN WO CONTRAST; CT HEAD PERFUSION-05/09/2024 7:38 am HISTORY 84-year-old male air flight from [facility] Stroke alert; right zechariah, aphasia, concern for M2 occlusion at [facility] COMPARISON None TECHNIQUE Axial images obtained through the head without contrast. Sagittal and coronal reconstructed images are also provided. CT perfusion imaging obtained per current protocol. FINDINGS CT HEAD WITHOUT CONTRAST: No acute infarction hemorrhage or mass is detected in the cerebrum or posterior fossa. No abnormal extra-axial fluid is appreciated. The cisterns and sulci are clear. No midline or downward shift is appreciated. The brain volume is within normal limits for age, and the ventricles are of normal size and contour. There is patchy lucency in the cerebral white matter bilaterally most commonly reflecting chronic small vessel ischemic change. Midline structures appear normally developed and positioned. The craniocervical junction appears normal. No acute paranasal sinus disease is detected. The middle ear cavities are clear. No acute osseous lesion is detected. The visualized portions of the orbits and facial soft tissues show no acute abnormality. CT PERFUSION IMAGING: There is an area of hypoperfusion involving left posterior MCA territory. RCBF<30% = 0 cc Tmax>6sec = 28 cc Mismatch Volume = 28 cc Mismatch Ratio = NA Hypoperfusion index = 0 CBV index = 0.7 Procedure Note Ayse Perez, Nakul Olivares MD - 05/09/[address] HEAD/BRAIN WO CONTRAST; CT HEAD PERFUSION-05/09/2024 7:38 am HISTORY 84-year-old male air flight from [facility] Stroke alert; right zechariah, aphasia,concern for M2 occlusion at [facility] COMPARISON None TECHNIQUE Axial images obtained through the head without contrast. Sagittal andcoronal reconstructed images are also provided. CT perfusion imaging obtained per current protocol. FINDINGS CT HEAD WITHOUT CONTRAST: No acute infarction hemorrhage or mass is detected in the cerebrum orposterior fossa. No abnormal extra-axial fluid is appreciated. The cisterns and sulci are clear. No midline or downward shift is appreciated. The brain volume is within normal limits for age, and the ventricles areof normal size and contour. There is patchy lucency in the cerebral white matter bilaterally mostcommonly reflecting chronic small vessel ischemic change. Midline structures appear normally developed and positioned. The craniocervical junction appears normal. No acute paranasal sinus disease is detected. The middle ear cavities are clear. No acute osseous lesion is detected. The visualized portions of the orbits and facial soft tissues show noacute abnormality. CT PERFUSION IMAGING: There is an area of hypoperfusion involving left posterior MCAterritory. RCBF<30% = 0 cc Tmax>6sec = 28 cc Mismatch Volume = 28 cc Mismatch Ratio = NA Hypoperfusion index = 0 CBV index = 0.7 IMPRESSION IMPRESSION 1. No acute intracranial abnormality detected by CT, including noevidence of cerebral hemorrhage. 2. Perfusion imaging results as above. Above findings were added to our urgent results communication system on:26 Sonali Brandon MD RAD CT Stacy l Result * CT HEAD PERFUSION (05/09/2024 7:38 AM EST) Anatomical Region Laterality Modality Head Computed Tomogra phy 05/09/2024 8:38 AM EST Impressions 05/09/2024 8:36 AM EST IMPRESSION 1. No acute intracranial abnormality detected by CT, including no evidence of cerebral hemorrhage. 2. Perfusion imaging results as above. Above findings were added to our urgent results communication system on :26 Narrative 05/09/2024 8:[address] HEAD/BRAIN WO CONTRAST; CT HEAD PERFUSION-05/09/2024 7:38 am HISTORY 84-year-old male air flight from [facility] Stroke alert; right zechariah, aphasia, concern for M2 occlusion at [facility] COMPARISON None TECHNIQUE Axial images obtained through the head without contrast. Sagittal and coronal reconstructed images are also provided. CT perfusion imaging obtained per current protocol. FINDINGS CT HEAD WITHOUT CONTRAST: No acute infarction hemorrhage or mass is detected in the cerebrum or posterior fossa. No abnormal extra-axial fluid is appreciated. The cisterns and sulci are clear. No midline or downward shift is appreciated. The brain volume is within normal limits for age, and the ventricles are of normal size and contour. There is patchy lucency in the cerebral white matter bilaterally most commonly reflecting chronic small vessel ischemic change. Midline structures appear normally developed and positioned. The craniocervical junction appears normal. No acute paranasal sinus disease is detected. The middle ear cavities are clear. No acute osseous lesion is detected. The visualized portions of the orbits and facial soft tissues show no acute abnormality. CT PERFUSION IMAGING: There is an area of hypoperfusion involving left posterior MCA territory. RCBF<30% = 0 cc Tmax>6sec = 28 cc Mismatch Volume = 28 cc Mismatch Ratio = NA Hypoperfusion index = 0 CBV index = 0.7 Procedure Note Ayse Perez, Nakul Olivares MD - 05/09/[address] HEAD/BRAIN WO CONTRAST; CT HEAD PERFUSION-05/09/2024 7:38 am HISTORY 84-year-old male air flight from [facility] Stroke alert; right zechariah, aphasia,concern for M2 occlusion at [facility] COMPARISON None TECHNIQUE Axial images obtained through the head without contrast. Sagittal andcoronal reconstructed images are also provided. CT perfusion imaging obtained per current protocol. FINDINGS CT HEAD WITHOUT CONTRAST: No acute infarction hemorrhage or mass is detected in the cerebrum orposterior fossa. No abnormal extra-axial fluid is appreciated. The cisterns and sulci are clear. No midline or downward shift is appreciated. The brain volume is within normal limits for age, and the ventricles areof normal size and contour. There is patchy lucency in the cerebral white matter bilaterally mostcommonly reflecting chronic small vessel ischemic change. Midline structures appear normally developed and positioned. The craniocervical junction appears normal. No acute paranasal sinus disease is detected. The middle ear cavities are clear. No acute osseous lesion is detected. The visualized portions of the orbits and facial soft tissues show noacute abnormality. CT PERFUSION IMAGING: There is an area of hypoperfusion involving left posterior MCAterritory. RCBF<30% = 0 cc Tmax>6sec = 28 cc Mismatch Volume = 28 cc Mismatch Ratio = NA Hypoperfusion index = 0 CBV index = 0.7 IMPRESSION IMPRESSION 1. No acute intracranial abnormality detected by CT, including noevidence of cerebral hemorrhage. 2. Perfusion imaging results as above. Above findings were added to our urgent results communication system [id number] us Napoleon Gresham MD RAD CT Final Result documented in this encounter Visit Diagnoses Diagnosis Acute ischemic left MCA stroke (HCC)- Primary Unspecified cerebral artery occlusion with cerebral infarction Nausea Nausea alone Stroke with cerebral ischemia (HCC) Unspecified cerebral artery occlusion with cerebral infarction Stroke (HCC) Unspecified cerebral artery occlusion with cerebral infarction Encounter for fitting and adjustment of other gastrointestinal appliance and device Cerebral edema (HCC) Cerebral edema Other specified disorders of brain Other abnormal findings on diagnostic imaging of central nervous system Electrolyte abnormality Electrolyte and fluid disorders not elsewhere classified Type 2 diabetes mellitus with stage 2 chronic kidney disease, without long-term current use of insulin (HCC) Type 2 diabetes mellitus with stage 3a chronic kidney disease, without long-term current use of insulin (HCC) Hypertensive kidney disease with stage 3a chronic kidney disease (HCC) HTN, goal below 140/90 Unspecified essential hypertension Gastroesophageal reflux disease without esophagitis Esophageal reflux Dyslipidemia, goal LDL below 70 Other and unspecified hyperlipidemia Left carotid stenosis Occlusion and stenosis of carotid artery without mention of cerebral infarction Right hemiparesis (HCC) Hemiplegia, unspecified, affecting unspecified side Mixed aphasia Aphasia Gait abnormality Abnormality of gait Impaired mobility and ADLs Mechanical problems with limbs AVF (arteriovenous fistula) (HCC) Arteriovenous fistula, acquired Internal carotid artery stent present documented in this encounter Administered Medications Inactive Administered Medications - up to 3 most recent administrations Medication Order MAR Action Action Date Dose Rate Site Acetaminophen (Ofirmev) inj 1,000 mg 1,000 mg, Intravenous, ONCE, 1 dose, On 05/09/24 at 2345, Administer over 15 Minutes, Administer undiluted over 15 minutes! NOTE: Maximum of 4000 mg per 24 hours of acetaminophen from all acetaminophen containing products., Indication: Patient is strictly NPO New Bag 05/10/2024 12:12 AM EST 1,000 mg 400 mL/hr Acetaminophen (Tylenol) tab 650 mg 650 mg, NG Tube, Q4H PRN Pain, Mild, Fever >38C(100.5F), Headache, Starting on 05/10/24 at 1756, Until 05/15/24 at 0944, Maximum of 4 grams (4000 mg) per day. Given 05/11/2024 1:19 PM EST 650 mg Given 05/10/2024 6:17 PM EST 650 mg Acetaminophen (Tylenol) tab 650 mg 650 mg, Oral, Q4H PRN Pain, Mild, Fever >38C(100.5F), Headache, Starting on 05/15/24 at 0943, Until 05/17/24 at 1415, Maximum of 4 grams (4000 mg) per day. aspirin chew tab 81 mg 81 mg, NG Tube, Daily(AM), First dose on 05/10/24 at 0900, Until Discontinued Given 05/13/2024 9:44 AM EST 81 mg Given 05/12/2024 8:47 AM EST 81 mg Given 05/11/2024 9:39 AM EST 81 mg aspirin chew tab 81 mg 81 mg, NG Tube, Daily(AM), First dose (after last modification) on 05/15/24 at 0900, Until Discontinued Given 05/15/2024 8:37 AM EST 81 mg aspirin chew tab 81 mg 81 mg, Oral, Daily(AM), First dose (after last modification) on 05/16/24 at 0900, Until Discontinued Given 05/17/2024 9:15 AM EST 81 mg Given 05/16/2024 8:31 AM EST 81 mg atorvaSTATin (Lipitor) tab 40 mg 40 mg, NG Tube, Q1700, First dose (after last modification) on 05/10/24 at 1700, Until Discontinued Given 05/12/2024 4:13 PM EST 40 mg Given 05/11/2024 4:55 PM EST 40 mg Given 05/10/2024 4:21 PM EST 40 mg atorvaSTATin (Lipitor) tab 40 mg 40 mg, Oral, Q1700, First dose (after last modification) on [place] 05/13/24 at 1700, Until Discontinued Given 05/13/2024 4:46 PM EST 40 mg atorvaSTATin (Lipitor) tab 40 mg 40 mg, Oral, Q1700, First dose (after last modification) on 05/15/24 at 2000, Until Discontinued Given 05/16/2024 8:03 PM EST 40 mg Given 05/15/2024 8:52 PM EST 40 mg Bisacodyl (Dulcolax) supp 10 mg 10 mg, Rectal, ONCE, On Fri05/12/24 at 1815, For 1 dose Given 05/12/2024 5:51 PM EST 10 mg chlorHEXIDINE (Periogard) 0.12 % oral rinse 15 mL 15 mL, Oral mucosal membrane, BID (0800,1999), First dose on 05/09/24 at 0915, Until Discontinued, Include oral/gum/tooth brushing with medication. Use prepackaged oral kit suction tooth brush if available. Given 05/13/2024 8:15 PM EST 15 mL Given 05/13/2024 9:44 AM EST 15 mL Given 05/12/2024 8:41 PM EST 15 mL Chlorthalidone (Hygroton) tab 25 mg 25 mg, NG Tube, Daily(AM), First dose (after last modification) on [facility] 05/15/24 at 0900, Until Discontinued Given 05/15/2024 8:37 AM EST 25 mg Chlorthalidone (Hygroton) tab 25 mg 25 mg, Oral, Daily(AM), First dose (after last modification) on [place] 05/16/24 at 0900, Until Discontinued Given 05/17/2024 9:15 AM EST 25 mg Given 05/16/2024 8:31 AM EST 25 mg clopidogrel (pLAVix) tab 600 mg 600 mg, NG Tube, ONCE, On [place] 05/09/24 at 1845, For 1 dose Given 05/09/2024 6:18 PM EST 600 mg clopidogrel (pLAVix) tab 75 mg 75 mg, NG Tube, Daily(AM), First dose (after last modification) on 05/10/24 at 0900, Until Discontinued Given 05/13/2024 9:44 AM EST 75 mg Given 05/12/2024 8:47 AM EST 75 mg Given 05/11/2024 9:39 AM EST 75 mg clopidogrel (pLAVix) tab 75 mg 75 mg, NG Tube, Daily(AM), First dose (after last modification) on [facility] 05/15/24 at 0900, Until Discontinued Given 05/15/2024 8:37 AM EST 75 mg clopidogrel (pLAVix) tab 75 mg 75 mg, Oral, Daily(AM), First dose (after last modification) on [place] 05/16/24 at 0900, Until Discontinued Given 05/17/2024 9:15 AM EST 75 mg Given 05/16/2024 8:31 AM EST 75 mg dexmedeTOMIDine (Precedex) 400 mcg in 100 mL infusion Order Mode: Standard Titration, Starting Rate (mcg/kg/hr): 0.2, Infusion Titration Adjustments: Increase or decrease by up to 0.2 mcg/kg/hr no more frequently than every 15 minutes to maintain specified goal RASS, Maximum Dose: 1.5 mcg/kg/hr, Patient Transfer: Patient should be transferred to a higher level of care if rate exceeds nursing unit specific guidelines., Notes to Nursing: Caution in BRADYcardia and HYPOtension. Reorient the patient, assess and treat pain separately. Abort acute agitation by seeking provider assistance., 0-1.5 mcg/kg/hr 87 kg (0-32.625 mL/hr, rounded to 0-32.63 mL/hr), Please select this medication from the infusion pump library, TITRATE, Starting on Fri05/09/24 at 1115, Until Fri05/09/24 at 2050, Intravenous Rate Verify 05/09/2024 8:00 PM EST 0.2 mcg/kg/hr 4.35 mL/hr Rate Change 05/09/2024 7:11 PM EST 0.2 mcg/kg/hr 4.35 mL/h r Rate Change 05/09/2024 5:12 PM EST 0.4 mcg/kg/hr 8.7 mL/hr dexmedeTOMIDine (Precedex) 400 mcg in 100 mL infusion Order Mode: Standard Titration, Starting Rate (mcg/kg/hr): 0.2, Infusion Titration Adjustments: Increase or decrease by up to 0.2 mcg/kg/hr no more frequently than every 15 minutes to maintain specified goal RASS, Maximum Dose: 1.5 mcg/kg/hr, Patient Transfer: Patient should be transferred to a higher level of care if rate exceeds nursing unit specific guidelines., Notes to Nursing: Caution in BRADYcardia and HYPOtension. Reorient the patient, assess and treat pain separately. Abort acute agitation by seeking provider assistance., 0-1.5 mcg/kg/hr 86.4 kg (0-32.4 mL/hr), Please select this medication from the infusion pump library, TITRATE, Starting on Fri05/09/24 at 2345, Until Fri05/11/24 at 1457, Intravenous Rate Verify 05/11/2024 10:00 AM EST 0.1 mcg/kg/hr 2.16 mL/hr Rate Change 05/11/2024 9:41 AM EST 0.1 mcg/kg/hr 2.16 mL/h r Rate Verify 05/11/2024 9:00 AM EST 0.2 mcg/kg/hr 4.32 mL/h r dextrose 50% inj 25 mL 25 mL, IV Push, PRN Hypoglycemia, Other, For blood glucose 54 - 69 mg/dL or 70 - 100 mg/dL with symptoms AND patient is unresponsive, NPO, OR unable to swallow, Starting on Fri05/11/24 at 0901, Until Fri05/17/24 at 1415, Administer IV. Recheck blood glucose after 15 minutes. Notify provider. dextrose 50% inj 50 mL 50 mL, IV Push, PRN Hypoglycemia, Other, For blood glucose below 54 mg/dL AND patient unresponsive, NPO, OR unable to swallow, Starting on Fri05/11/24 at 0901, Until Fri05/17/24 at 1415, Administer IV. Recheck blood glucose in 15 minutes. Notify provider. Docusate Sodium (Colace) oral liquid 100 mg 100 mg, NG Tube, BID (.AM/PM), First dose on Fri05/11/24 at 2100, Until Discontinued Given 05/12/2024 8:48 AM EST 100 mg Given 05/11/2024 8:02 PM EST 100 mg Enoxaparin (Lovenox) inj 40 mg 40 mg, Subcutaneous, Daily(AM), First dose on [place] 05/13/24 at 0900, Until Discontinued, If patient is on warfarin, inform provider if daily INR value is 2 or greater! Given 05/17/2024 9:15 AM EST 40 mg Abdom en Right Lower Given 05/16/2024 8:40 AM EST 40 mg Ab domen Right Lower Given 05/15/2024 8:36 AM EST 40 mg Ab domen Left Lower glucagon (Glucagen) inj 1 mg 1 mg, Intramuscular, PRN Hypoglycemia, Other, If patient is unresponsive, or NPO and has no IV access, Starting on Fri05/11/24 at 0901, Until Fri05/17/24 at 1415, NPO and no IV access with either 1) blood glucose less than 100 mg/dL and symptomatic OR 2) blood glucose less than 70 mg/dL and asymptomatic hEParin 25,000 units in 250 mL (Xa-Neurologic) infusion Intravenous, at 0-22.65 mL/hr, Start heparin as soon as baseline labs are drawn. Please select this medication from the infusion pump library! Concentration: 100 units/mL Expires 96 hours after spiking on (date) at (hour) , TITRATE, Starting on Fri05/09/24 at 1045, Until Fri05/10/24 at 0839 Rate Verify 05/10/2024 8:35 AM EST 12 Units/kg/hr 9.06 mL/hr Nurse Change 05/10/2024 7:28 AM EST 12 Units/kg/hr 9.06 mL /hr Rate Verify 05/10/2024 7:00 AM EST 12 Units/kg/hr 9.06 mL/ hr hEParin inj 5,000 Units 5,000 Units, Subcutaneous, Q8H, First dose on Fri05/12/24 at 1400, Until Discontinued Given 05/12/2024 2:36 PM EST 5,000 Units Abdomen Left Lower hydrALAZINE (Apresoline) inj 10 mg 10 mg, Intravenous, Q4H PRN Other, SBP >160 for >5 min and HR <60, Starting on Fri05/09/24 at 1036, Until Fri05/13/24 at 1022 Given 05/12/2024 1:13 AM EST 10 mg Given 05/09/2024 2:42 PM EST 10 mg hydrALAZINE (Apresoline) inj 10 mg 10 mg, Intravenous, Q4H PRN Other, SBP >160 for >5 min and HR <60, Starting on Fri05/13/24 at 1020, Until Fri05/14/24 at 1407 Given 05/14/2024 10:5 7 AM EST 10 mg hydrALAZINE (Apresoline) inj 10 mg 10 mg, Intravenous, ONCE, On Fri05/14/24 at 1415, For 1 dose Given 05/14/2024 2:16 PM EST 10 mg hydrALAZINE (Apresoline) tab 10 mg 10 mg, NG Tube, BID (0700,1900), First dose on Fri05/11/24 at 0945, Until Discontinued, Hold for SBP below 100 and notify service if dose is held Given 05/11/2024 6:14 PM EST 10 mg Given 05/11/2024 9:40 AM EST 10 mg hydrALAZINE (Apresoline) tab 10 mg 10 mg, NG Tube, Q6H, First dose (after last modification) on Fri05/12/24 at 0630, Until Discontinued, Hold for SBP below 100 and notify service if dose is held Given 05/13/2024 6:02 AM EST 10 mg Given 05/12/2024 10:59 PM EST 10 mg Given 05/12/2024 5:02 PM EST 10 mg hydrALAZINE (Apresoline) tab 10 mg 10 mg, NG Tube, BID (0700,1900), First dose (after last modification) on Fri05/14/24 at 1900, Until Discontinued, Hold for SBP below 100 and notify service if dose is held Given 05/15/2024 5:50 AM EST 10 mg Given 05/14/2024 9:10 PM EST 10 mg hydrALAZINE (Apresoline) tab 10 mg 10 mg, Oral, BID (0700,1900), First dose (after last modification) on Fri05/15/24 at 2000, Until Discontinued, Hold for SBP below 100 and notify service if dose is held Given 05/17/2024 9:14 AM EST 10 mg Given 05/16/2024 8:03 PM EST 10 mg Given 05/16/2024 6:53 AM EST 10 mg insulin aspart (NovoLOG) inj Subcutaneous, W/MEALS AND HS, First dose (after last modification) on Fri05/11/24 at 1200, Until Discontinued, LOW DOSE (Elderly insulin sensitive patient): Sliding Scale Correctional insulin may be given if the patient is NPO. Dose based on standard build from Insulin Calculator. Do not modify insulin doses in administration instructions!, Glucose less than 70 instructions: Obtain STAT lab blood glucose and call covering provider., Glucose 80-150 (units): 0, Glucose 151-200 (units): 1, Glucose 201-250 (units): 2, Glucose 251-300 (units): 3, Glucose greater than 300 (units): 4, Glucose greater than 300 instructions: Give suggested insulin dose and call covering provider. Given 05/11/2024 9:55 PM EST 1 Units Abdomen Right Lower Given 05/11/2024 12:17 PM EST 2 Units A rm Right Upper insulin aspart (NovoLOG) inj Subcutaneous, W/MEALS AND HS, First dose on Fri05/12/24 at 0800, Until Discontinued, MEDIUM DOSE (Usual starting dose): Sliding Scale Correctional insulin may be given if the patient is NPO. Dose based on standard build from Insulin Calculator. Do not modify insulin doses in administration instructions!, Glucose less than 70 instructions: Obtain STAT lab blood glucose and call covering provider., Glucose 80-150 (units): 0, Glucose 151-200 (units): 2, Glucose 201-250 (units): 4, Glucose 251-300 (units): 6, Glucose greater than 300 (units): 8, Glucose greater than 300 instructions: Give suggested insulin dose and call covering provider. Given 05/16/2024 9:28 PM EST 2 Units Abdomen Right Upper Given 05/16/2024 12:36 PM EST 2 Units A bdomen Left Lower Given 05/16/2024 8:40 AM EST 2 Units Ar m Right Upper insulin aspart (NovoLOG) inj Subcutaneous, WITH MEALS, First dose on [place] 05/13/24 at 1330, Until Discontinued, Dose equals 1 unit of insulin per 10 grams of carbohydrate consumed. Hold dose if patient does not eat Given 05/17/2024 9:28 AM EST 5 Units Arm Right Upper Given 05/15/2024 6:27 PM EST 4 Units Ar m Right Upper Given 05/13/2024 6:40 PM EST 9 Units Ar m Right Upper Insulin Glargine (Lantus) inj 4 Units 4 Units, Subcutaneous, HSINSULIN, First dose on [place] 05/13/24 at 2200, Until Discontinued, "IF DOSE IS HELD- NOTIFY COVERING PROVIDER!" Given 05/16/2024 9:28 PM EST 4 Units Arm Left Upper Given 05/15/2024 9:27 PM EST 4 Units Ar m Left Upper Given 05/14/2024 9:09 PM EST 4 Units Ar m Right Upper Insulin Glargine (Lantus) inj 5 Units 5 Units, Subcutaneous, HSINSULIN, First dose (after last modification) on 05/17/24 at 2200, Until Discontinued, "IF DOSE IS HELD- NOTIFY COVERING PROVIDER!" Iopamidol (Isovue 370) inj 40 mL 40 mL, Intravenous, ONCE, On 05/09/24 at 0815, For 1 dose, Radiology Medication Routing (Non-IR) Given 05/09/2024 8:15 AM EST 40 mL Isolyte-S pH 7.4 infusion Intravenous, at 100 mL/hr, Plasma-LYTE 148, isolyte-S, and isolyte-S pH 7.4 are considered equivalent - including for MAR barcode scanning., CONTINUOUS, Starting on Fri05/10/24 at 1115, Until Fri05/10/24 at 1814 Rate Verify 05/10/2024 7:00 PM EST 100 mL/hr Rate Verify 05/10/2024 6:00 PM EST 100 mL/hr Rate Verify 05/10/2024 5:58 PM EST 100 mL/hr Isolyte-S pH 7.4 infusion Intravenous, at 75 mL/hr, Plasma-LYTE 148, isolyte-S, and isolyte-S pH 7.4 are considered equivalent - including for MAR barcode scanning., CONTINUOUS, Starting on Fri05/13/24 at 1100, Until Fri05/14/24 at 0924 Rate Verify 05/14/2024 6:00 AM EST 75 mL/hr New Bag 05/14/2024 12:03 AM EST 75 mL/hr Rate Verify 05/13/2024 11:08 PM EST 75 mL/hr Isolyte-S pH 7.4 infusion Intravenous, at 75 mL/hr, Plasma-LYTE 148, isolyte-S, and isolyte-S pH 7.4 are considered equivalent - including for MAR barcode scanning., CONTINUOUS, Starting on Fri05/14/24 at 1115, Until Fri05/14/24 at 1209 New Bag 05/14/2024 11:03 AM EST 75 mL/hr Isolyte-S pH 7.4 infusion Intravenous, at 75 mL/hr, Plasma-LYTE 148, isolyte-S, and isolyte-S pH 7.4 are considered equivalent - including for MAR barcode scanning., CONTINUOUS, Starting on Fri05/14/24 at 1800, Until 05/15/24 at 0559 Rate Verify 05/14/2024 11:08 PM EST 75 mL/hr Rate Verify 05/14/2024 7:24 PM EST 75 mL/hr Restarted 05/14/2024 6:57 PM EST 75 mL/hr Isolyte-S pH 7.4 infusion Intravenous, at 75 mL/hr, Plasma-LYTE 148, isolyte-S, and isolyte-S pH 7.4 are considered equivalent - including for MAR barcode scanning., CONTINUOUS, Starting on 05/16/24 at 1915, Until 05/17/24 at 0712 Rate Verify 05/16/2024 7:22 PM EST 75 mL/hr Rate Verify 05/16/2024 6:47 PM EST 75 mL/hr New Bag 05/16/2024 6:41 PM EST 75 mL/hr labetalol (Trandate) inj 10 mg 10 mg, Intravenous, Q1H PRN Other, SBP >160 for >5 min, hold for HR <60, Starting on Fri05/14/24 at 1407, Until 05/17/24 at 1415 Given 05/16/2024 6:00 PM EST 10 mg Given 05/15/2024 10:34 PM EST 10 mg Given 05/14/2024 10:42 PM EST 10 mg labetalol (Trandate) inj 20 mg 20 mg, Intravenous, Q1H PRN Other, SBP >160 for >5 min, hold for HR <60, Starting on 05/09/24 at 1036, Until Fri05/14/24 at 1407 Given 05/14/2024 12:1 0 PM EST 20 mg Given 05/12/2024 6:01 PM EST 20 mg Given 05/12/2024 4:15 PM EST 20 mg Latanoprost (Xalatan) 0.005 % ophthalmic solution 1 Drop 1 Drop, Both eyes, QPM-1999, First dose on 05/09/24 at 2000, Until Discontinued Given 05/15/2024 9:03 PM EST 1 D rop Given 05/14/2024 9:11 PM EST 1 Drop Given 05/13/2024 8:15 PM EST 1 Drop LORazepam (Ativan) inj 1 mg 1 mg, IV Push, ONCE, On 05/09/24 at 1230, For 1 dose, MUST FURTHER DILUTE FOR IV PUSH WITH EQUAL VOLUME OF NSS Given 05/09/2024 11:57 AM EST 1 mg LORazepam (Ativan) inj 1 mg 1 mg, IV Push, ONCE, On 05/09/24 at 1645, For 1 dose, MUST FURTHER DILUTE FOR IV PUSH WITH EQUAL VOLUME OF NSS Given 05/09/2024 4:05 PM EST 1 mg melatonin tab 3 mg 3 mg, Oral, HS, First dose (after last modification) on 05/16/24 at 2200, Until Discontinued Given 05/16/2024 9:27 PM EST 3 mg melatonin tab 5 mg 5 mg, Oral, HS, First dose on 05/16/24 at 0100, Until Discontinued Given 05/16/2024 12:27 AM EST 5 mg Metoclopramide (Reglan) inj 10 mg 10 mg, IV Push, ONCE, On 05/09/24 at 0815, For 1 dose Given 05/09/2024 7:18 AM EST 10 mg midazolam (Versed) 2 MG/2ML inj 1 mg 1 mg, IV Push, ONCE, On Fri05/10/24 at 0530, For 1 dose Given 05/10/2024 4:53 AM EST 1 mg Nutren 1.5 liquid 60 mL/hr, Administer over 12 Hours, Tube feed, QHS, First dose on Fri05/12/24 at 1800, Until Discontinued Given 05/12/2024 5:56 PM EST 30 mL/hr 30 mL/hr olmesartan (Benicar) tab 20 mg 20 mg, Oral, Daily(AM), First dose on Fri05/13/24 at 1100, Until Discontinued Given 05/13/2024 11:00 AM EST 20 mg olmesartan (Benicar) tab 20 mg 20 mg, Oral, ONCE, On Fri05/13/24 at 1345, For 1 dose Given 05/13/2024 2:51 PM EST 20 mg olmesartan (Benicar) tab 20 mg 20 mg, NG Tube, Daily(AM), First dose (after last modification) on [facility] 05/15/24 at 0900, Until Discontinued Given 05/15/2024 8:36 AM EST 20 mg olmesartan (Benicar) tab 20 mg 20 mg, Oral, Daily(AM), First dose (after last modification) on 05/16/24 at 0900, Until Discontinued Given 05/17/2024 9:15 AM EST 20 mg Given 05/16/2024 8:31 AM EST 20 mg omeprazole (PriLOSEC) oral susp 40 mg 40 mg, NG Tube, Daily(AM), First dose on Fri05/10/24 at 0900, Until Discontinued, SHAKE WELL AND REFRIGERATEREFRIGERATEREFRIGERATE Given 05/13/2024 9:52 AM EST 40 m g Given 05/12/2024 8:48 AM EST 40 mg Given 05/11/2024 9:39 AM EST 40 mg Oral Hygiene: Mouth Swab with dentifrice Oral, Q4H LIMITED (00;04;12;16), First dose on 05/09/24 at 1200, Until Discontinued, To be used with 1.5% hydrogen peroxide solution or 0.05% cetylpyridium chloride oral rinse Given 05/14/2024 12:00 AM EST Given 05/13/2024 4:46 PM EST 1 Kit Given 05/13/2024 4:00 AM EST pantoprazole (Protonix) tab 40 mg 40 mg, Oral, Daily(AM), First dose on Fri05/14/24 at 0915, Until Discontinued, This med should NOT be Crushed or Chewed Given 05/15/2024 8:37 AM EST 40 mg pantoprazole (Protonix) tab 40 mg 40 mg, Oral, Daily(AM), First dose (after last modification) on Fri05/16/24 at 0900, Until Discontinued, This med should NOT be Crushed or Chewed Given 05/16/2024 8:32 AM EST 40 mg Polyethylene Glycol 3350 (Miralax) oral powder 17 g 17 g (1 Packet), NG Tube, BID (0900,2100), First dose on Fri05/12/24 at 0900, Until Discontinued, Mix in 8 oz of water, juice, soda, coffee, or tea. Given 05/12/2024 8:48 AM EST 17 g potassium chloride 10 mEq in 100 mL ivpb LOCKED DOSE 10 mEq, Peripheral IV, Q1H, 1 dose, First dose on Fri05/17/24 at 1100, Administer over 60 Minutes, Standard infusion duration is 60 minutes. potassium chloride ER tab 10 mEq 10 mEq, Oral, Daily(AM), First dose on Fri05/14/24 at 1615, Until Discontinued, This med should NOT be Crushed or Chewed Given 05/15/2024 8:37 AM EST 10 mEq potassium chloride ER tab 40 mEq 40 mEq, Oral, Daily(AM), First dose (after last modification) on Fri05/16/24 at 0900, Until Discontinued, This med should NOT be Crushed or Chewed Given 05/16/2024 8:31 AM EST 40 mEq potassium CHLORide liquid 40 mEq 40 mEq, Oral, ONCE, On 05/15/24 at 2000, For 1 dose, To avoid GI irritation, must further diilute 15 ml in 3 ounces H2O or other fluid Given 05/15/2024 8:52 PM EST 40 mEq QUEtiapine (SEROquel) tab 12.5 mg 12.5 mg, NG Tube, BID (.AM/PM), First dose (after last modification) on Fri05/11/24 at 1130, Until Discontinued Given 05/11/2024 11:30 AM EST 12.5 mg QUEtiapine (SEROquel) tab 25 mg 25 mg, NG Tube, BID (.AM/PM), First dose (after last modification) on Fri05/11/24 at 2100, Until Discontinued Given 05/12/2024 8:47 AM EST 25 mg Given 05/11/2024 8:02 PM EST 25 mg QUEtiapine (SEROquel) tab 25 mg 25 mg, NG Tube, QHS, First dose (after last modification) on Fri05/12/24 at 2200, Until Discontinued Given 05/12/2024 8:41 PM EST 25 mg QUEtiapine (SEROquel) tab 25 mg 25 mg, Oral, QHS, First dose (after last modification) on Fri05/13/24 at 2200, Until Discontinued Given 05/13/2024 10:41 PM EST 25 mg QUEtiapine (SEROquel) tab 25 mg 25 mg, NG Tube, QHS, First dose (after last modification) on Fri05/14/24 at 2200, Until Discontinued Given 05/14/2024 9:11 PM EST 25 mg QUEtiapine (SEROquel) tab 25 mg 25 mg, Oral, BID (.AM/PM), First dose (after last modification) on 05/15/24 at 1215, Until Discontinued Given 05/15/2024 8:52 PM EST 25 mg Given 05/15/2024 11:48 AM EST 25 mg QUEtiapine (SEROquel) tab 25 mg 25 mg, Oral, Q8H PRN Agitation, Insomnia, Starting on 05/16/24 at 0340, Until 05/16/24 at 0648 Given 05/16/2024 3:49 AM EST 25 mg QUEtiapine (SEROquel) tab 25 mg 25 mg, Oral, Daily(AM), First dose (after last modification) on 05/16/24 at 0900, Until Discontinued Given 05/17/2024 9:15 AM EST 25 mg Given 05/16/2024 8:31 AM EST 25 mg QUEtiapine (SEROquel) tab 50 mg 50 mg, Oral, QHS, First dose on 05/16/24 at 2200, Until Discontinued Given 05/16/2024 9:28 PM EST 50 mg senna (Senokot) 1 Tablet 1 Tablet, NG Tube, BID (.AM/PM), First dose on Fri05/11/24 at 2100, Until Discontinued Given 05/12/2024 8:48 AM EST 1 Tablet Given 05/11/2024 8:02 PM EST 1 Tablet senna (Senokot) 1 Tablet 1 Tablet, NG Tube, BID (.AM/PM), First dose (after last modification) on Fri05/12/24 at 2100, Until Discontinued Given 05/13/2024 8:15 PM EST 1 Tablet Given 05/12/2024 8:40 PM EST 1 Tablet senna (Senokot) 1 Tablet 1 Tablet, NG Tube, BID (.AM/PM), First dose (after last modification) on Fri05/14/24 at 2100, Until Discontinued Given 05/15/2024 8:37 AM EST 1 Tablet Given 05/14/2024 9:10 PM EST 1 Tablet senna (Senokot) 1 Tablet 1 Tablet, Oral, BID (.AM/PM), First dose (after last modification) on Fri05/15/24 at 2100, Until Discontinued Given 05/17/2024 9:15 AM EST 1 Tablet Given 05/16/2024 8:03 PM EST 1 Tablet Given 05/16/2024 8:32 AM EST 1 Tablet documented in this encounter Active and Recently Administered Medications Times are shown in EST. Scheduled Medication Order 05/15/2024 05/16/2024 05/17/2024 aspirin chew tab 81 mg (CANCELED) 81 mg, NG Tube, Daily(AM), First dose (after last modification) on 05/15/24 at 0900, Until Discontinued 08 (Given - Provider: Aster Burris, RITCHIE) aspirin chew tab 81 mg 81 mg, Oral, Daily(AM), First dose (after last modification) on 05/16/24 at 0900, Until Discontinued 830 (Given - Provider: Aster Burris RN) 914 (Given - Provider: Delano Marinelli RN) atorvaSTATin (Lipitor) tab 40 mg 40 mg, Oral, Q1700, First dose (after last modification) on 05/15/24 at 2000, Until Discontinued 2051 (Given - Provider: Duncan Silva RN) 2002 (Given - Provider: Leida Rousseau, RITCHIE) Chlorthalidone (Hygroton) tab 25 mg (CANCELED) 25 mg, NG Tube, Daily(AM), First dose (after last modification) on 05/15/24 at 0900, Until Discontinued 0837 (Given - Provider: Aster Burris RN) Chlorthalidone (Hygroton) tab 25 mg 25 mg, Oral, Daily(AM), First dose (after last modification) on 05/16/24 at 0900, Until Discontinued 0831 (Given - Provider: Aster Burris RN) 0915 (Given - Provider: Delano Marinelli, RITCHIE) clopidogrel (pLAVix) tab 75 mg (CANCELED) 75 mg, NG Tube, Daily(AM), First dose (after last modification) on 05/15/24 at 0900, Until Discontinued 0837 (Given - Provider: Aster Burris RN) clopidogrel (pLAVix) tab 75 mg 75 mg, Oral, Daily(AM), First dose (after last modification) on 05/16/24 at 0900, Until Discontinued 0831 (Given - Provider: Aster Burris RN) 0915 (Given - Provider: Delano Marinelli, RITCHIE) Enoxaparin (Lovenox) inj 40 mg 40 mg, Subcutaneous, Daily(AM), First dose on Antoinette 05/13/24 at 0900, Until Discontinued, If patient is on warfarin, inform provider if daily INR value is 2 or greater! 0836 (Given - Provider: Aster Burris RN) 0840 (Given - Provider: Aster Burris RN) 0915 (Given - Provider: Delano Marinelli, RITCHIE) hydrALAZINE (Apresoline) tab 10 mg (CANCELED) 10 mg, NG Tube, BID (0700,1900), First dose (after last modification) on Fri05/14/24 at 1900, Until Discontinued, Hold for SBP below 100 and notify service if dose is held 0550 (Given - Provider: Marian Aldridge LPN - Comment: bp 153/103 hr 85) hydrALAZINE (Apresoline) tab 10 mg 10 mg, Oral, BID (0700,1900), First dose (after last modification) on 05/15/24 at 2000, Until Discontinued, Hold for SBP below 100 and notify service if dose is held 2052 (Given - Provider: Duncan Silva RN) 0653 (Given - Provider: Duncan Silva RN)2002 (Given - Provider: Leida Rousseau, RITCHIE) 09 (Given - Provider: Delano Marinelli, RN) insulin aspart (NovoLOG) inj Subcutaneous, W/MEALS AND HS, First dose on Fri05/12/24 at 0800, Until Discontinued, MEDIUM DOSE (Usual starting dose): Sliding Scale Correctional insulin may be given if the patient is NPO. Dose based on standard build from Insulin Calculator. Do not modify insulin doses in administration instructions!, Glucose less than 70 instructions: Obtain STAT lab blood glucose and call covering provider., Glucose 80-150 (units): 0, Glucose 151-200 (units): 2, Glucose 201-250 (units): 4, Glucose 251-300 (units): 6, Glucose greater than 300 (units): 8, Glucose greater than 300 instructions: Give suggested insulin dose and call covering provider. 0847 (Not Given - Provider: Aster Burris RN - Reason: Parameter(s) Not Met)1325 (Given - Provider: Aster Burris RN)1732 (Not Given - Provider: Aster Burris RN - Reason: Parameter(s) Not Met)2200 (Not Given - Provider: Duncan Silva RN - Reason: Parameter(s) Not Met) 0840 (Given - Provider: Aster Burris RN)1236 (Given - Provider: Aster Burris RN)1709 (Not Given - Provider: Aster Burris RN - Reason: Parameter(s) Not Met)2128 (Given - Provider: Leida Rousseau, RITCHIE) 0800 (No Insulin - Provider: Delano Marinelli RN - Reason: Parameter(s) Not Met - Comment: 134) insulin aspart (NovoLOG) inj Subcutaneous, WITH MEALS, First dose on Antoinette 05/13/24 at 1330, Until Discontinued, Dose equals 1 unit of insulin per 10 grams of carbohydrate consumed. Hold dose if patient does not eat 0800 (Not Given - Provider: Aster Burris RN - Reason: Other- Please add reason in Comments - Comment: Tray taken prior to completion of carb count. Dr. Denis Harris notified via [employer].)1322 (Not Given - Provider: Aster Burris RN - Reason: Parameter(s) Not Met - Comment: pt declined lunch tray)1827 (Given - Provider: Aster Burris RN) 0933 (Not Given - Provider: Aster Burris RN - Reason: Parameter(s) Not Met - Comment: pt refused breakfast tray)1233 (Not Given - Provider: Aster Burris RN - Reason: Parameter(s) Not Met - Comment: pt refused lunch tray)1838 (Not Given - Provider: Aster Burris RN - Reason: Parameter(s) Not Met - Comment: pt refused dinner tray) 0928 (Given - Provider: Delano Marinelli RN) Insulin Glargine (Lantus) inj 4 Units (CANCELED) 4 Units, Subcutaneous, HSINSULIN, First dose on Antoinette 05/13/24 at 2200, Until Discontinued, "IF DOSE IS HELD- NOTIFY COVERING PROVIDER!" 2126 (Given - Provider: Duncan Silva RN) 2127 (Given - Provider: Leida Rousseau RN) Insulin Glargine (Lantus) inj 5 Units 5 Units, Subcutaneous, HSINSULIN, First dose (after last modification) on 05/17/24 at 2200, Until Discontinued, "IF DOSE IS HELD- NOTIFY COVERING PROVIDER!" Latanoprost (Xalatan) 0.005 % ophthalmic solution 1 Drop 1 Drop, Both eyes, QPM-1999, First dose on 05/09/24 at 2000, Until Discontinued 2102 (Given - Provider: Duncan Silva, RITCHIE) 1999 (Not Given - Provider: Leida Rousseau RN - Reason: Refused-Notify Provider) melatonin tab 3 mg 3 mg, Oral, HS, First dose (after last modification) on 05/16/24 at 2200, Until Discontinued 2126 (Given - Provider: Leida Rousseau, RITCHIE) melatonin tab 5 mg (CANCELED) 5 mg, Oral, HS, First dose on 05/16/24 at 0100, Until Discontinued 0027 (Given - Provider: Duncan Silva RN) olmesartan (Benicar) tab 20 mg (CANCELED) 20 mg, NG Tube, Daily(AM), First dose (after last modification) on Fri05/15/24 at 0900, Until Discontinued 0836 (Given - Provider: Aster Burris, RITCHIE) olmesartan (Benicar) tab 20 mg 20 mg, Oral, Daily(AM), First dose (after last modification) on 05/16/24 at 0900, Until Discontinued 0831 (Given - Provider: Aster Burris RN) 0915 (Given - Provider: Delano Marinelli RN) pantoprazole (Protonix) tab 40 mg (CANCELED) 40 mg, Oral, Daily(AM), First dose on Fri05/14/24 at 0915, Until Discontinued, This med should NOT be Crushed or Chewed 0837 (Given - Provider: Aster Burris RN) pantoprazole (Protonix) tab 40 mg 40 mg, Oral, Daily(AM), First dose (after last modification) on Fri05/16/24 at 0900, Until Discontinued, This med should NOT be Crushed or Chewed 0832 (Given - Provider: Aster Burris RN) 0911 (Not Given - Provider: Delano Marinelli RN - Reason: Other-Notify Provider - Comment: pt wont swallow whole. Unable to crush. Dr Harris made aware) potassium chloride 10 mEq in 100 mL ivpb LOCKED DOSE 10 mEq, Peripheral IV, Q1H, 1 dose, First dose on Fri05/17/24 at 1100, Administer over 60 Minutes, Standard infusion duration is 60 minutes. potassium chloride ER tab 10 mEq (CANCELED) 10 mEq, Oral, Daily(AM), First dose on Fri05/14/24 at 1615, Until Discontinued, This med should NOT be Crushed or Chewed 0837 (Given - Provider: Aster Burris RN) potassium chloride ER tab 40 mEq 40 mEq, Oral, Daily(AM), First dose (after last modification) on Fri05/16/24 at 0900, Until Discontinued, This med should NOT be Crushed or Chewed 0831 (Given - Provider: Aster Burris RN) 0911 (Not Given - Provider: Delano Marinelli, RITCHIE - Reason: Other-Notify Provider - Comment: pt wont swallow whole. Unable to crush. Dr Harris made aware) potassium CHLORide liquid 40 mEq (COMPLETED) 40 mEq, Oral, ONCE, On 05/15/24 at 2000, For 1 dose, To avoid GI irritation, must further diilute 15 ml in 3 ounces H2O or other fluid 2051 (Given - Provider: Duncan Silva, RITCHIE) QUEtiapine (SEROquel) tab 25 mg (CANCELED) 25 mg, Oral, BID (.AM/PM), First dose (after last modification) on 05/15/24 at 1215, Until Discontinued 114 (Given - Provider: Aster Burris RN)2051 (Given - Provider: Duncan Silva, RITCHIE) QUEtiapine (SEROquel) tab 25 mg 25 mg, Oral, Daily(AM), First dose (after last modification) on 05/16/24 at 0900, Until Discontinued 830 (Given - Provider: Aster Burris RN) 914 (Given - Provider: Delano Marinelli, RITCHIE) QUEtiapine (SEROquel) tab 50 mg 50 mg, Oral, QHS, First dose on 05/16/24 at 2200, Until Discontinued 2127 (Given - Provider: Leida Rousseau, RITCHIE) senna (Senokot) 1 Tablet (CANCELED) 1 Tablet, NG Tube, BID (.AM/PM), First dose (after last modification) on Fri05/14/24 at 2100, Until Discontinued 836 (Given - Provider: Aster Burris RN) senna (Senokot) 1 Tablet 1 Tablet, Oral, BID (.AM/PM), First dose (after last modification) on 05/15/24 at 2100, Until Discontinued 2051 (Given - Provider: Duncan Silva RN) 0832 (Given - Provider: Aster Burris, RITCHIE)2002 (Given - Provider: Leida Rousseau RN) 0915 (Given - Provider: Delano Marinelli, RITCHIE) Continuous Medication Order 05/15/2024 05/16/2024 05/17/2024 Isolyte-S pH 7.4 infusion (CANCELED) Intravenous, at 75 mL/hr, Plasma-LYTE 148, isolyte-S, and isolyte-S pH 7.4 are considered equivalent - including for MAR barcode scanning., CONTINUOUS, Starting on Fri05/16/24 at 1915, Until Fri05/17/24 at 0712 1841 (New Bag - Provider: Aster Burris RN)1847 (Rate Verify - Provider: Aster Burris RN)1922 (Rate Verify - Provider: Aster Burris RN) 0021 (Stopped - Provider: Leida Rousseau RN)0732 (Stopped - Provider: Delano Marinelli RN) PRN Medication Order 05/15/2024 05/16/2024 05/17/2024 Acetaminophen (Tylenol) tab 650 mg 650 mg, Oral, Q4H PRN Pain, Mild, Fever >38C(100.5F), Headache, Starting on 05/15/24 at 0943, Until Fri05/17/24 at 1415, Maximum of 4 grams (4000 mg) per day. dextrose 50% inj 25 mL 25 mL, IV Push, PRN Hypoglycemia, Other, For blood glucose 54 - 69 mg/dL or 70 - 100 mg/dL with symptoms AND patient is unresponsive, NPO, OR unable to swallow, Starting on Fri05/11/24 at 0901, Until Fri05/17/24 at 1415, Administer IV. Recheck blood glucose after 15 minutes. Notify provider. dextrose 50% inj 50 mL 50 mL, IV Push, PRN Hypoglycemia, Other, For blood glucose below 54 mg/dL AND patient unresponsive, NPO, OR unable to swallow, Starting on Fri05/11/24 at 0901, Until Fri05/17/24 at 1415, Administer IV. Recheck blood glucose in 15 minutes. Notify provider. glucagon (Glucagen) inj 1 mg 1 mg, Intramuscular, PRN Hypoglycemia, Other, If patient is unresponsive, or NPO and has no IV access, Starting on Fri05/11/24 at 0901, Until Fri05/17/24 at 1415, NPO and no IV access with either 1) blood glucose less than 100 mg/dL and symptomatic OR 2) blood glucose less than 70 mg/dL and asymptomatic labetalol (Trandate) inj 10 mg 10 mg, Intravenous, Q1H PRN Other, SBP >160 for >5 min, hold for HR <60, Starting on 05/14/24 at 1407, Until 05/17/24 at 1415 2234 (Given - Provider: Duncan Silva RN) 1800 (Given - Provider: Aster Burris RN) QUEtiapine (SEROquel) tab 25 mg (CANCELED) 25 mg, Oral, Q8H PRN Agitation, Insomnia, Starting on 05/16/24 at 0340, Until 05/16/24 at 0648 0349 (Given - Provider: Duncan Silva RN) documented in this encounter Advance Directives * No Code (Latest Code Status on File) Date Activated Date Inactivated Comments 05/09/2024 8:31 AM 05/17/2024 2:15 PM This order reflects the patients wishes and were consensually agreed upon. Question Answer Comments Discussion of Advance Direct kade occurred with: Power of Park Landscape Architect/Patient Surgery Technician Does the patient have a Living Will? Yes, in sherrell rt and reviewed as current Does the patient have Health Care Power of Park Landscape Architect? Yes, in chart and reviewed as current [...] Advance Direct kade occurred with: Power of Park Landscape Architect/Patient Surgery Technician Does the patient have Health Care Power of Park Landscape Architect? Yes, in chart and reviewed as current Intubation? No Cardiac Compressions? No Defibrillation? No Synchronized Cardioversion? No External Pacemaker? No Cardiac Drugs? No Care Teams Proposal Coordinator Relationship Specialty Start Date End Date Art Cavazos DO [address] [place] [address] PCP - General Internal Medicine 11/19/23 documented as of this encounter
--- OUTSIDE RECORDS SUMMARY | 2024-05-18 13:07 | External Medical Summary | Summary of Care ---
Author Name Unknown Organization [facility] Address [address] [place] [address] Phone [phone] Care Team Providers Care Vice President Global Advertising Sales Name Role Phone Art Cavazos DO Primary Care Provider [phone] Reason for Visit * Reason Onset Date Comments [facility]: Enrollment 05/17/2024 Encounter Details Date Type Department Care Team (Late st Contact Info) Description 05/17/2024 Telephone [facility] [place] [address] [place] [address] [phone] Gill Jasmine, STANISLAV [address] [place] [address] [facility]: Enrollment Allergies Active Allergy Reactions Criticality Noted Date Comments Amoxicillin Fever,Rash Medium 12/29/2013 documented as of this encounter (statuses as of 05/17/2024) Medications TwoFish SYSTEM W/DEVICE KITIndications: DM type 2, goal [...] 3 04/19/2024 11:05 AM EST 3 Active Allopurinol 100 MG Oral Tablet (Zyloprim)Indic ations:Gouty arthritis of both feet Take 1 Tablet by mouth in the morning. 90 Tablet 3 05/17/2024 7:54 AM EST 4 Active Ketoconazole 2 % External Shampoo (Nizoral)Indica [...] the morning. 90 Tablet 3 4 Active Acetaminophen 325 MG Oral Tablet (Tylenol) Administer 2 Tablets into NG tube every 4 hours as needed for Fever >38C(100.5F) or Pain, Moderate. Maximum of 4,000mg per day 30 Tablet 4 Active Atorvastatin Calcium 40 MG Oral Tablet (Lipitor) Take 1 Tablet by mouth every afternoon. 30 Tablet 11 4 Active hydrALAZINE HCl 10 MG Oral Tablet (Apresoline) Take 1 Tablet by mouth in the morning and 1 Tablet in the evening. 60 Tablet 11 4 Active Clopidogrel Bisulfate 75 MG Oral Tablet (pLAVix) Take 1 Tablet by mouth in the morning. Review needed duration of Plavix with neurosurgeon at follow up.. 30 Tablet 3 4 Active Sennosides 8.6 MG Oral Tablet (Senokot) Administer 1 Tablet into NG tube in the morning and 1 Tablet before bedtime. 60 Tablet 11 4 Active Chlorhexidine Gluconate 0.12 % Mouth/Throat Solution (Periogard) Apply 15 mL to inside of cheek in the morning and 15 mL in the evening. 473 mL 4 Active Pantoprazole Sodium 40 MG Oral Tablet Delayed Release (Protonix) Take 1 Tablet by mouth in the morning. 30 Tablet 11 4 Active Potassium Chloride ER 10 MEQ Oral Tablet Extended Release Take 4 Tablets by mouth in the morning. 120 Tablet 11 4 Active Chlorthalidone 25 MG Oral Tablet (Hygroton) Take 1 Tablet by mouth in the morning. 30 Tablet 11 4 Active QUEtiapine Fumarate 50 MG Oral Tablet (SEROquel) Take 1 Tablet by mouth every night at bedtime. 30 Tablet 11 4 Active QUEtiapine Fumarate 25 MG Oral Tablet (SEROquel) Take 1 Tablet by mouth in the morning. 30 Tablet 11 4 Active Olmesartan Medoxomil 20 MG Oral Tablet (Benicar) Take 1 Tablet by mouth in the morning. 30 Tablet 11 4 Active Melatonin 3 MG Oral Tablet Take 1 Tablet by mouth at bedtime. 30 Tablet 11 4 Active Potassium Chloride 10 MEQ/100ML Intravenous Solution Administer 30 mEq at 100 mL/hr over 180 minutes via peripheral line daily as needed for Other (If patient is unable to tolerate oral potassium administer 30 mEq IV potassium chlorid in at a rate of 10 mEq per hour.). 1000 mL 2 4 Active documented as of this encounter (statuses [...] money to buy more. Never true 03/21/20 Within the past 12 months, t he [...] encounter Miscellaneous Notes * Telephone Encounter - Gill Jasmine OSA - 05/17/2024 12:24 PM EST [facility] - attempt 1 - left a voicemail Looking at May 29 with Jose F Lukas documented in this encounter Plan of Treatment Upcoming Encounters Date Type Department Care Team (Late st Contact Info) Description 05/24/2024 1:40 PM EST Office Visit [address] [place] [phone] Art Cavazos, [address] [place] [address] 05/31/2024 11:00 AM EST Therapy Neuropsychology [facility] [facility] [place] [address] [place] [address] Enrique Kay, PhD 200 [place] [address] 06/16/2024 12:30 PM EST Telemedicine Neurosurgery, [facility] [address] [place], [place] [phone] Crispin Nelson MD [address] [place] [address] 07/09/2024 3:00 PM EST Telemedicine Neurology [address] [facility] [address] [place] [address] Jose Ramos MD [address] [place] [address] [facility] [address] [place] [address] 08/02/2024 1:00 PM EDT Office Visit [facility] [address] [facility] [address] [place] [phone] Art Cavazos DO 293 [place] [address] 10/15/2024 2:00 PM EDT Nurse Only Family Practice [address] [place] [address] 293 [place] [phone] Sonali Echeverria, RITCHIE 293 [place] [address] 11/01/2024 2:20 PM EDT Office Visit Nephrology, [facility] 200 [place] [address] Baldo Mackey MD [address] [place] [address] 12/03/2024 2:00 PM EDT Office Visit Rheumatology [place] [phone] [place] [address] Sarah Stroud CRNP [address] [email or web address] [address] Scheduled Procedures Name Priority Associated Diagnoses Date/Ti [...] 10/09/2024 10/10/2023, 10/10/19 24 HbA1c 11/07/2024 05/09/2024, 11/10/2023, 11/19/2023, Additional history exists GFR 11/15/2024 05/17/2024, 04/26, 05/15/2024, Additional history exists Diabetic Foot Exam 03/31/2025 03/31/2024, 1 , 03/07/2022, Additional history exists CKD HGB USE SMARTSET 19364 05/12/202505/12, 05/11/2024, 05/11/2024, Additional history exists CKD PHOS USE SMARTSET 34241 05/17/202504/26, 05/16/2024, 05/15/2024, Additional history exists DTap/Tdap [...] this encounter Medical Devices Implanted Type Area Group Fitness Department Head Device Identifier Shelf Expiration Date Model / Serial / Lot Stent 7x40 Precise [id number] - [id number] Implanted:Qty : 1 on 05/09/2024 by Crispin Nelson MD at OR [facility] Left: Carotid CORDIS US PHIL [id number] 01/23/2026 [id number] / / [id number] documented as of this encounter Advance Directives * No Code (Latest Code Status on File) Date Activated Date Inactivated Comments 05/09/2024 8:31 AM This order re flects the patients wishes and were consensually agreed upon. Question Answer Comments Discussion of Advance Direct kade occurred with: Power of Section Laborer/Patient Unit Nurse Does the patient have a Living Will? Yes, in sherrell rt and reviewed as current Does the patient have Health Care Power of Section Laborer? Yes, in chart and reviewed as current [...] Advance Direct kade occurred with: Power of Section Laborer/Patient Unit Nurse Does the patient have Health Care Power of Section Laborer? Yes, in chart and reviewed as current Intubation? No Cardiac Compressions? No Defibrillation? No Synchronized Cardioversion? No External Pacemaker? No Cardiac Drugs? No Care Teams Vice President Global Advertising Sales Relationship Specialty Start Date End Date Art Cavazos DO [address] [place] [address] PCP - General Internal Medicine 11/19/23 documented as of this encounter
--- OUTSIDE RECORDS SUMMARY | 2024-05-18 13:08 | External Medical Summary ---
Author Name Unknown Address Unknown Organization : Laboratory Report Ordering Provider Test Date Status NOMI MESSER 05/15/2024 12:31:31 Final Observation Date Value Abnormality Reference (Units ) Status Glucose Point of Care 05/15/2024 12:31:31 195 Above high normal 70-120 (mg/dL) Final Performing Location
--- OUTSIDE RECORDS SUMMARY | 2024-05-18 13:08 | External Medical Summary | Summary of Care ---
Author Name Unknown Organization [facility] Address [address] [place] [address] Phone [phone] Care Team Providers Care Rn Bsn Name Role Phone Art Cavazos DO Primary Care Provider [phone] Encounter Details Date Type Department Care Team (Late st Contact Info) Description 05/14/2024 Documentation [facility] [place] [facility] [address] [place] [address] Ale Cobos RN [address] [facility] [address] [address] Allergies Active Allergy Reactions Criticality Noted Date Comments Amoxicillin Fever,Rash Medium 12/29/2013 documented as of this encounter (statuses as of 05/14/2024) Medications Acetaminophen 325 MG Oral Tablet (Tylenol) [...] evening. 60 Tablet 11 05/14/20 24 Active Olmesartan Medoxomil 40 MG Oral Tablet (Benicar) Take 1 Tablet by mouth in the morning. 30 Tablet 11 05/14/20 24 Active QUEtiapine Fumarate 25 MG Oral Tablet (SEROquel) Take 1 Tablet by mouth every night at bedtime. Review this medication with Mg's PCP after hospital discharge to see if this can be weaned off. If he starts having sundowning discuss goal of minimal antipsychotic dosage needed to control delirium. 30 Tablet 05/14/20 24 Active Clopidogrel Bisulfate 75 [...] the evening. 473 mL 05/14/20 24 Active Volar Video ULTRA SYSTEM W/DEVICE KITIndications :DM type 2, [...] of less than 7.0% ([facility]) Use to test sugars once daily 100 Each 3 08/30/19 22 Suspended Vitamin D-400 10 MCG (400 UNIT) Oral Tablet (cholecalcifer ol (VIT D3))Indication s:Vitamin D deficiency Take 2 Tablets by mouth daily. 120 Tablet 3 07/08/19 23 Suspended VictorOpsuch Ultra In Vitro Strip (Glucose Blood)Indicati ons:Type 2 diabetes mellitus with stage 3a chronic kidney disease, without long-term current use of insulin (HCC) TEST 1 TO 2 TIMES DAILY. 200 Strip 3 4 7:22 AM EDT 04/27/20 23 025 Suspended Latanoprost 0.005 % Ophthalmic Solution (Xalatan) Instill 1 Drop into both eyes once daily every evening as directed 10 mL 3 4 11:05 AM EST 04/30/20 23 Suspended Allopurinol 100 MG Oral Tablet (Zyloprim)Ginger cations:Gouty arthritis of both feet Take 1 Tablet by mouth in the morning. 90 Tablet 3 4 11:23 AM EDT 08/25/19 24 Suspended Ketoconazole 2 % External Shampoo (Nizoral)Indic ations:Seborrh eic dermatitis of scalp Lather into scalp in the shower, leave in for 3 minutes, then rinse. Do this three times per week 120 mL 11 4 11:42 AM EDT 03/19/20 24 Suspended Empagliflozin 25 MG Oral Tablet (Jardiance)Ind ications:Type 2 diabetes mellitus with stage 3a chronic kidney disease, without long-term current use of insulin (HCC) Take 1 Tablet by mouth in the morning. 90 Tablet 3 05/07/20 24 Suspended documented as of this encounter (statuses as of 05/14/2024) Active Problems Problem Noted Date Diagnosed Date AVF (arteriovenous fistula) 05/11/2024 Gait abnormality 05/10/2024 Impaired mobility and ADLs 05/10/2024 Acute ischemic left MCA stroke 05/09/2024 Dyslipidemia, goal LDL below 70 05/09/2024 Stroke with cerebral ischemia 05/09/2024 Left carotid stenosis 05/09/2024 Right hemiparesis [...] as of this encounter (statuses as of 05/14/2024) Resolved Problems Problem Noted Date Diagnosed Date [...] as of this encounter (statuses as of 05/14/2024) Immunizations Name Administration Dates Next Due COVID-19 mRNA, LNP-s, No Pre serve, 2-Dose Series (Moderna) 08/02/2020,07/05/2020 COVID-19, MRNA-LNP, PF, 30 M CG/0.3 mL, 12 YRS AND ABOVE, IM ([facility]) 03/31/2024,03/21/2023 COVID-19, mRNA, LNP-s, PF, B ooster, [...] as of this encounter Progress Notes * Ale Cobos RN - 05/14/2024 3:21 PM EST [facility] at [facility] Care Legal Collector Subjective: Spoke with pt's IP CM and call placed to patient's daughter. Pt to be discharged to [facility] tomorrow. Daughter agreeable to [facility] following discharge from [facility]. TT sent to [facility] to follow. Care Legal Collector Documentation The patient's case been reviewed with: Interdisciplinary Team, IP Health Care Team Discharge Disposition: Pending (Plan for IRF 05/15) documented in this encounter Plan of Treatment Upcoming Encounters Date Type Department Care Team (Late st Contact Info) Description 05/31/2024 11:00 AM EST Therapy Neuropsychology [address] [place] [address] Enrique Kay, PhD [address] [place] [address] 06/16/2024 12:30 PM EST Telemedicine Neurosurgery, [place] [address] [place] [address] Crispin Nelson MD [address] [place], [place] [phone] 07/09/2024 3:00 PM EST [facility] [address] [place] [address] Jose Ramos MD [address] [place], [place] [id number] [facility] 65 [facility] [address] [place] [address] 08/02/2024 1:00 PM EDT Office Visit Family Practice [facility] [address] [place] [address] Art Cavazos DO [address] [place] [address] 10/15/2024 2:00 PM EDT Nurse Only Family Practice [address] [facility] [address] [place] [address] Sonali Echeverria, RITCHIE [address] [place] [phone] 11/01/2024 2:20 PM EDT [facility] [address] [place], [place] [phone] Baldo Mackey MD [address] [place] [address] 12/03/2024 2:00 PM EDT Office Visit Rheumatology [address] [place], [place] [address] Sarah Stroud CRNP [address] [facility] [place] [address] Scheduled Procedures Name Priority Associated Diagnoses Date/Ti me ESOPHAGOGASTRODUODENOSCOPY ( EGD), FLEXIBLE, TRANSORAL, DIAGNOSTIC Recall Anderson's esophagus with esophagitis Health Maintenance Due Date Last Done Comments Zoster Vaccines (1 of 2) 1990 Andreson's Esophagus Surveilance 10/26/2023 10/25/2020, 10/25/2020, 04/09/2018 Diabetic Eye Exam 04/01/2024 04/01/2023, , 06/02/2018, Additional history exists Adult Wellness Visit 10/09/2024 10/10/2023, 09/20/2022, 06/06/2021 Albumin/Creatinine Ratio 10/09/2024 024, 11/18/2022, 11/20/2021, Additional history exists Depression Screening 10/09/2024 10/10/2023, 10/10/19 24 HbA1c 11/07/2024 05/09/2024, 11/0 10/2023, 11/19/2023, Additional history exists GFR 11/12/2024 05/14/2024, 04/25, 05/12/2024, Additional history exists Diabetic Foot Exam 03/31/2025 03/31/2024, 1 , 03/07/2022, Additional history exists CKD HGB USE SMARTSET 11216 05/12/202505/12, 05/11/2024, 05/11/2024, Additional history exists CKD PHOS USE SMARTSET 58985 05/14/202504/26, 05/13/2024, 05/12/2024, Additional history exists DTap/Tdap Vaccines (2 - [...] this encounter Medical Devices Implanted Type Area Nursery Nurse Device Identifier Shelf Expiration Date Model / Serial / Lot Stent 7x40 Precise [id number] - [id number] Implanted:Qty : 1 on 05/09/2024 by Crispin Nelson MD at OR [facility] Left: Carotid CORDIS Wyl[employer] PHIL [id number] 01/23/2026 [id number] / / [id number] documented as of this encounter Advance Directives * No Code (Latest Code Status on File) Date Activated Date Inactivated Comments 05/09/2024 8:31 AM This order re flects the patients wishes and were consensually agreed upon. Question Answer Comments Discussion of Advance Direct kade occurred with: Power of Service Developer/Patient Director Of Rehabilitation Does the patient have a Living Will? Yes, in sherrell rt and reviewed as current Does the patient have Health Care Power of Service Developer? Yes, in chart and reviewed as current [...] Advance Direct kade occurred with: Power of Service Developer/Patient Director Of Rehabilitation Does the patient have Health Care Power of Service Developer? Yes, in chart and reviewed as current Intubation? No Cardiac Compressions? No Defibrillation? No Synchronized Cardioversion? No External Pacemaker? No Cardiac Drugs? No Care Teams Rn Bsn Relationship Specialty Start Date End Date Art Cavazos DO [address] [place] [address] PCP - General Internal Medicine 11/19/23 documented as of this encounter
--- OUTSIDE RECORDS SUMMARY | 2024-05-18 13:08 | External Medical Summary ---
Author Name Unknown Address Unknown Organization : Laboratory Report Ordering Provider Test Date Status NOMI MESSER 05/16/2024 16:55:26 Final Observation Date Value Abnormality Reference (Units ) Status Glucose Point of Care 05/16/2024 16:55:26 112 70-120 (mg/dL) Final Performing Location
--- OUTSIDE RECORDS SUMMARY | 2024-05-18 13:08 | External Medical Summary | Summary of Care ---
Author Name Unknown Organization [facility] Address [address] [place] [address] Phone [phone] Care Team Providers Care Telesales Professional Name Role Phone Art Cavazos DO Primary Care Provider [phone] Encounter Details Date Type Department Care Team (Late st Contact Info) Description 05/08/2024 Orders Only GPS Provider Triage [address] [place] [address] Napoleon Gresham MD [address] [place] [address] Allergies Active Allergy Reactions Criticality Noted Date Comments Amoxicillin Fever,Rash Medium 12/29/2013 documented as of this encounter (statuses as of 05/13/2024) Medications AutoESL SYSTEM W/DEVICE KITIndications: DM type 2, goal A1c below 7 Use up to four times a day as directed 1 Kit 0 0 Suspended B-12 1000 MCG PO TBCR Take by mouth 1 Tablet daily . Suspended FISH OIL 1000 MG PO CAPS Take 1 Capsule by mouth in the morning. Suspended GLUCOSAMINE CHONDR 1500 COMPLX PO CAPS Take 1 Capsule by mouth in the morning and 1 Capsule before bedtime. Pt takes tablets. 4 Suspended aspirin 81 MG chewable tablet Take 1 Tablet by mouth in the morning. with food.. 100 Tab 5 7 Suspended Ferrous Sulfate 325 (65 Fe) MG Oral Tablet (Feosol) Take 1 Tablet by mouth every afternoon. 60 Tab 11 1 Suspended OneTouch UltraSoft LancetsIndicati ons:Type 2 diabetes mellitus with hemoglobin A1c goal of less than 7.0% ([facility]) Use to test sugars once daily 100 Each 3 2 Suspended Vitamin D-400 10 MCG (400 UNIT) Oral Tablet (cholecalcifero l (VIT D3))Indications :Vitamin D deficiency Take 2 Tablets by mouth daily. 120 Tablet 3 3 Suspended OneTouch Ultra In Vitro Strip (Glucose Blood)Indicatio ns:Type 2 diabetes mellitus with stage 3a chronic kidney disease, without long-term current use of insulin ([facility]) TEST 1 TO 2 TIMES DAILY. 200 Strip 3 02/20/2024 7:22 AM EDT 3 06/05/19 25 Suspended Latanoprost 0.005 % Ophthalmic Solution (Xalatan) Instill 1 Drop into both eyes once daily every evening as directed 10 mL 3 04/19/2024 11:05 AM EST 3 Suspended hydrALAZINE HCl 10 MG Oral Tablet (Apresoline) Take 1 Tablet by mouth in the morning and 1 Tablet in the evening. 200 Tablet 3 02/28/2024 9:11 AM EDT 4 Suspended Allopurinol 100 MG Oral Tablet (Zyloprim)Indic ations:Gouty arthritis of both feet Take 1 Tablet by mouth in the morning. 90 Tablet 3 02/16/2024 11:23 AM EDT 4 Suspended Omeprazole 40 MG Oral Capsule Delayed Release (PriLOSEC) TAKE ONE CAPSULE BY MOUTH IN THE MORNING. 100 Capsule 3 02/28/2024 9:11 AM EDT 4 11/24/19 25 Suspended Ketoconazole 2 % External Shampoo (Nizoral)Indica tions:Seborrhei c dermatitis of scalp Lather into scalp in the shower, leave in for 3 minutes, then rinse. Do this three times per week 120 mL 11 03/22/2024 11:42 AM EDT 4 Suspended Empagliflozin 25 MG Oral Tablet (Jardiance)Ginger cations:Type 2 diabetes mellitus with stage 3a chronic kidney disease, without long-term current use of insulin ([facility]) Take 1 Tablet by mouth in the morning. 90 Tablet 3 12/13/202 4 Suspended documented as of this encounter (statuses as of 05/13/2024) Active Problems Problem Noted Date Diagnosed Date [...] as of this encounter (statuses as of 05/13/2024) Resolved Problems Problem Noted Date Diagnosed Date [...] as of this encounter (statuses as of 05/13/2024) Immunizations Name Administration Dates Next Due COVID-19 [...] AM EDT documented as of this encounter Plan of Treatment Upcoming Encounters Date Type Department Care Team (Late st Contact Info) Description 05/31/2024 11:00 AM EST Therapy Neuropsychology [facility] [place] [address] [place] [address] Enrique Kay, PhD [address] [place] [address] 06/16/2024 12:30 PM EST Telemedicine Neurosurgery, [place] [address] [place], [place] [phone] Crispin Nelson MD [address] [place], [place] [phone] 07/09/2024 3:00 PM EST [facility] [address] [place] [address] Pulakaashley, Jose Velez MD [address] [place], [place] [phone] [facility] [address] [place] [address] 08/02/2024 1:00 PM EDT Office Visit Family Practice [address] [facility] [address] [place] [address] Art Cavazos DO [address] [place] [address] 10/15/2024 2:00 PM EDT Nurse Only Family Practice [address] [place] [address] 293 [place] [address] Sonali Echeverria RN [address] [place] [address] 11/01/2024 2:20 PM EDT Office Visit Nephrology, [facility] [address] [place] [address] Baldo Mackey MD [address] [place], [place] [address] 12/03/2024 2:00 PM EDT Office Visit Rheumatology [facility] [address] [place] [address] Sarah Stroud CRNP [address] [place] [address] Scheduled Procedures Name Priority Associated Diagnoses Date/Ti [...] 10/09/2024 10/10/2023, 10/10/19 24 HbA1c 11/07/2024 05/09/2024, 10/2023, 11/19/2023, Additional history exists GFR 11/11/2024 05/13/2024, 04/25, 05/11/2024, Additional history exists Diabetic Foot Exam 03/31/2025 03/31/2024, 1 , 03/07/2022, Additional history exists CKD HGB USE SMARTSET 55698 05/12/202505/12, 05/11/2024, 05/11/2024, Additional history exists CKD PHOS USE SMARTSET 12897 05/13/202504/25, 05/12/2024, 05/11/2024, Additional history exists DTap/Tdap Vaccines (2 - [...] this encounter Medical Devices Implanted Type Area Time Clerk Device Identifier Shelf Expiration Date Model / Serial / Lot Stent 7x40 Precise [id number] - [id number] Implanted:Qty : 1 on 05/09/2024 by Crispin Nelson MD at [facility] Left: Carotid CORDIS Mon[employer] PHIL [id number] 01/23/2026 [id number] / / [id number] documented as of this encounter Procedures Procedure Name Priority Date/Time Associated Diagnosis Comments RADIOLOGY EXAM - MRI (IMAGES ONLY, NO REPORT) Routine 05/08/2024 5:05 PM EST documented in this encounter Results * RADIOLOGY EXAM - MRI (IMAGES ONLY, NO REPORT) (05/08/2024 5:05 PM EST) 05/08/2024 5:02 PM EST Narrative Scheduling, Silent - 05/13/2024 10:43 AM EST This is an imaging study not interpreted or resulted by a [facility] or [facility] contracted radiologist. us Napoleon Gresham MD RAD MRI-MRA Final Result documented in this encounter Advance Directives * No Code (Latest Code Status on File) Date Activated Date Inactivated Comments 05/09/2024 8:31 AM This order re flects the patients wishes and were consensually agreed upon. Question Answer Comments Discussion of Advance Direct kade occurred with: Power of Gear Technician/Patient Negative Developer Does the patient have a Living Will? Yes, in sherrell rt and reviewed as current Does the patient have Health Care Power of Gear Technician? Yes, in chart and reviewed as current [...] Advance Direct kade occurred with: Power of Gear Technician/Patient Negative Developer Does the patient have Health Care Power of Gear Technician? Yes, in chart and reviewed as current Intubation? No Cardiac Compressions? No Defibrillation? No Synchronized Cardioversion? No External Pacemaker? No Cardiac Drugs? No Care Teams Telesales Professional Relationship Specialty Start Date End Date Art Cavazos DO [address] [place] [address] PCP - General Internal Medicine 11/19/23 documented as of this encounter
--- OUTSIDE RECORDS SUMMARY | 2024-05-18 13:08 | External Medical Summary | Summary of Care ---
Author Name Unknown Organization [facility] Address [address] [place] [address] Phone [phone] Care Team Providers Care Curb Machine Operator Name Role Phone Art Cavazos DO Primary Care Provider [phone] Encounter Details Date Type Department Care Team (Latest Contact Info) Description 05/08/2024 11:50 AM EST - 05/08/2024 5:04 PM EST Hospital Encounter Radiology Film File [address] [place] [address] Discharge Disposition: Home - Self Care Allergies Active Allergy Reactions Criticality Noted Date Comments Amoxicillin Fever,Rash Medium 12/29/2013 documented as of this encounter (statuses as of 05/14/2024) Medications ONETOUCH ULTRA SYSTEM W/DEVICE KITIndications :DM type 2, [...] 60 Tab 11 1 Suspended OneTouch UltraSoft LancetsIndicat ions:Type 2 diabetes mellitus with hemoglobin A1c goal of less than 7.0% ([facility]) Use to test sugars once daily 100 Each 3 2 Suspended Vitamin D-400 10 MCG (400 UNIT) Oral Tablet (cholecalcifer ol (VIT D3))Indication s:Vitamin D deficiency Take 2 Tablets by mouth daily. 120 Tablet 3 3 Suspended OneTouch Ultra In Vitro Strip (Glucose Blood)Indicati ons:Type 2 diabetes mellitus with stage 3a chronic kidney disease, without long-term current use of insulin ([facility]) TEST 1 TO 2 TIMES DAILY. 200 Strip 3 02/20/2024 7:22 AM EDT 3 025 Suspended Latanoprost 0.005 % Ophthalmic Solution (Xalatan) Instill 1 Drop into both eyes once daily every evening as directed 10 mL 3 04/19/2024 11:05 AM EST 3 Suspended hydrALAZINE HCl 10 MG Oral Tablet (Apresoline) Take 1 Tablet by mouth in the morning and 1 Tablet in the evening. 200 Tablet 3 02/28/2024 9:11 AM EDT 4 024 Discontinued Allopurinol 100 MG Oral Tablet (Zyloprim)Ginger cations:Gouty arthritis of both feet Take 1 Tablet by mouth in the morning. 90 Tablet 3 02/16/2024 11:23 AM EDT 4 Suspended Omeprazole 40 MG Oral Capsule Delayed Release (PriLOSEC) TAKE ONE CAPSULE BY MOUTH IN THE MORNING. 100 Capsule 3 02/28/2024 9:11 AM EDT 4 024 Discontinued Ketoconazole 2 % External Shampoo (Nizoral)Indic ations:Seborrh eic dermatitis of scalp Lather into scalp in the shower, leave in for 3 minutes, then rinse. Do this three times per week 120 mL 11 03/22/2024 11:42 AM EDT 4 Suspended Empagliflozin 25 MG Oral Tablet (Jardiance)Ind ications:Type 2 diabetes mellitus with stage 3a chronic kidney disease, without long-term current use of insulin ([facility]) Take 1 Tablet by mouth in the morning. 90 Tablet 3 4 Suspended documented as of this encounter [...] 11:00 AM EST Therapy Neuropsychology [address] [place] [address] [place] [address] Enrique Kay, PhD 200 [facility] [place] [address] 06/16/2024 12:30 PM EST Telemedicine Neurosurgery, [place] [address] [place] [address] Crispin Nelson MD [address] [place] [address] 07/09/2024 3:00 PM EST [facility]medicine [facility] [address] [place] [address] Jose Ramos MD [address] [place] [address] [facility] [address] [place] [address] 08/02/2024 1:00 PM EDT Office Visit Family Practice 65 [facility] 293 [place] [address] Art Cavazos DO 293 [place] [address] 10/15/2024 2:00 PM EDT Nurse Only Family Practice 65 [facility] 293 [place] [address] Sonali Echeverria RN 293 [place] [phone] 11/01/2024 2:20 PM EDT Office Visit Nephrology, [facility] 200 [facility] [place] [address] Baldo Mackey MD [address] [place], [place] [address] 12/03/2024 2:00 PM EDT Office Visit Rheumatology [facility] [address] [place] [address] Sarah Stroud CRNP [address] [place] [address] Scheduled Procedures Name Priority Associated Diagnoses Date/Ti [...] 05/09/2024, 11/10/2023, 11/19/2023, Additional history exists GFR 11/12/2024 05/14/2024, 04/25, 05/12/2024, Additional history exists Diabetic Foot Exam 03/31/2025 03/31/2024, 1 , 03/07/2022, Additional history exists CKD HGB USE SMARTSET 18191 05/12/202505/12, 05/11/2024, 05/11/2024, Additional history exists CKD PHOS USE SMARTSET 35388 05/14/2025 12, 05/13/2024, 05/12/2024, Additional history exists DTap/Tdap Vaccines [...] this encounter Medical Devices Implanted Type Area Lockstitch Binder Device Identifier Shelf Expiration Date Model / Serial / Lot Stent 7x40 Precise [id number] - [id number] Implanted:Qty : 1 on 05/09/2024 by Crispin Nelson MD at [facility] Left: Carotid [facility] [id number] 01/23/2026 [id number] / / [id number] documented as of this encounter Procedures Procedure Name Priority Date/Time Associated Diagnosis Comments RADIOLOGY EXAM - CT (IMAGES ONLY, NO REPORT) Routine 05/08/2024 11:50 AM EST documented in this encounter Results * RADIOLOGY EXAM - CT (IMAGES ONLY, NO REPORT) (05/08/2024 11:50 AM EST) 05/08/2024 11:4 9 AM EST Narrative Scheduling, Silent - 05/13/2024 10:42 AM EST This is an imaging study not interpreted or resulted by a [facility] or [employer] contracted radiologist. Napoleon Gresham MD RAD CT Final Result documented in this encounter Advance Directives * No Code (Latest Code Status on File) Date Activated Date Inactivated Comments 05/09/2024 8:31 AM This order re flects the patients wishes and were consensually agreed upon. Question Answer Comments Discussion of Advance Direct kade occurred with: Power of Redipper/Patient Child Guidance Counselor Does the patient have a Living Will? Yes, in sherrell rt and reviewed as current Does the patient have Health Care Power of Redipper? Yes, in chart and reviewed as current [...] Advance Direct kade occurred with: Power of Redipper/Patient Child Guidance Counselor Does the patient have Health Care Power of Redipper? Yes, in chart and reviewed as current Intubation? No Cardiac Compressions? No Defibrillation? No Synchronized Cardioversion? No External Pacemaker? No Cardiac Drugs? No Care Teams Curb Machine Operator Relationship Specialty Start Date End Date Art Cavazos DO [address] [place] [address] PCP - General Internal Medicine 11/19/23 documented as of this encounter
--- OUTSIDE RECORDS SUMMARY | 2024-05-18 13:08 | External Medical Summary ---
Author Name Unknown Address Unknown Organization : Laboratory Report Ordering Provider Test Date Status NOMI MESSER 05/14/2024 07:50:12 Final Observation Date Value Abnormality Reference (Units ) Status Glucose Point of Care 05/14/2024 07:50:12 164 Above high normal 70-120 (mg/dL) Final Performing Location
--- OUTSIDE RECORDS SUMMARY | 2024-05-18 13:08 | External Medical Summary ---
Author Name Unknown Address Unknown Organization : Laboratory Report Ordering Provider Test Date Status NOMI MESSER 05/16/2024 11:52:05 Final Observation Date Value Abnormality Reference (Units ) Status Glucose Point of Care 05/16/2024 11:52:05 162 Above high normal 70-120 (mg/dL) Final Performing Location
--- OUTSIDE RECORDS SUMMARY | 2024-05-18 13:08 | External Medical Summary ---
Author Name Unknown Address Unknown Organization : Laboratory Report Ordering Provider Test Date Status NOMI MESSER 05/13/2024 16:51:14 Final Observation Date Value Abnormality Reference (Units ) Status Glucose Point of Care 05/13/2024 16:51:14 138 Above high normal 70-120 (mg/dL) Final Performing Location
--- OUTSIDE RECORDS SUMMARY | 2024-05-18 13:08 | External Medical Summary ---
Author Name Unknown Address Unknown Organization : Laboratory Report Ordering Provider Test Date Status NOMI MESSER 05/14/2024 17:08:03 Final Observation Date Value Abnormality Reference (Units ) Status Glucose Point of Care 05/14/2024 17:08:03 107 70-120 (mg/dL) Final Performing Location
--- OUTSIDE RECORDS SUMMARY | 2024-05-18 13:08 | External Medical Summary ---
Author Name Unknown Address Unknown Organization : Laboratory Report Ordering Provider Test Date Status NOMI MESSER 05/14/2024 20:58:55 Final Observation Date Value Abnormality Reference (Units ) Status Glucose Point of Care 05/14/2024 20:58:55 119 70-120 (mg/dL) Final Performing Location
--- OUTSIDE RECORDS SUMMARY | 2024-05-18 13:08 | External Medical Summary ---
Author Name Unknown Address Unknown Organization K01:[facility] [place] [address] [place] [address] Laboratory Report Ordering Provider Test Date Status PATRICIA CASTILLO 05/15/2024 09:22:00 Final Observation Date Value Abnormality Reference (Units ) Status BUN 05/15/2024 09:22:00 27 Above high normal 6-20 (mg/dL) Final Creatinine 05/15/2024 09:22:00 1.1 0.6-1.2 (mg/dL) Final Glomerular filtration rate/1.73 sq M.predicted [Volume Rate/Area] in Serum, Plasma or Blood by Creatinine-based formula (CKD-EPI) 05/15/2024 09:22:00 65 >=60 (mL/min) Final eGFR is calculated based on the CKD-EPI 2020 equation. Sodium 05/15/2024 09:22:00 141 135-146 (m mol/L) Final Potassium 05/15/2024 09:22:00 3.4 Below low normal 3.5 -5.1 (mmol/L) Final Cl 05/15/2024 09:22:00 104 98-107 (mm ol/L) Final CO2 05/15/2024 09:22:00 21 Below low normal 22- 32 (mmol/L) Final Anion gap 05/15/2024 09:22:00 16 Above high normal 7- 15 (mmol/L) Final Glucose 05/15/2024 09:22:00 123 Above high normal 70 -120 (mg/dL) Final Calcium 05/15/2024 09:22:00 9.0 8.4-10.2 ( mg/dL) Final Albumin 05/15/2024 09:22:00 3.9 3.8-5.0 (g /dL) Final Phosphate 05/15/2024 09:22:00 3.0 2.5-4.8 (m g/dL) Final Performing Location LABORATORY C - [address] [place] [address]
--- OUTSIDE RECORDS SUMMARY | 2024-05-18 13:08 | External Medical Summary | Summary of Care ---
Author Name Unknown Organization [facility] Address [address] [place] [address] Phone [phone] Care Team Providers Care Tube Sizer And Cutter Operator Name Role Phone Art Cavazos DO Primary Care Provider [phone] Encounter Details Date Type Department Care Team (Late st Contact Info) Description 05/14/2024 Documentation [facility] [place] [address] [place] [address] Ale Cobos RN [address] [facility] [address] [place] [address] Allergies Active Allergy Reactions Criticality Noted Date [...] the evening. 473 mL 05/14/20 24 Active [employer] Group[employer]CH ULTRA SYSTEM W/DEVICE KITIndication s:DM type 2, goal A1c below 7 Use [...] Tab 11 07/02/19 21 Suspended OneTouch UltraSoft LancetsIndica tions:Type 2 diabetes mellitus with hemoglobin A1c goal of less than 7.0% (HCC) Use to test sugars once daily 100 Each 3 08/30/19 22 Suspended Vitamin D-400 10 MCG (400 UNIT) Oral Tablet (cholecalcife rol (VIT D3))Indicatio ns:Vitamin D deficiency Take 2 Tablets by mouth daily. 120 Tablet 3 07/08/19 23 Suspended OneToSterio.me Ultra In Vitro Strip (Glucose Blood)Indicat ions:Type 2 diabetes mellitus with stage 3a [...] 23 Suspended Allopurinol 100 MG Oral Tablet (Zyloprim)Ind ications:Gout y arthritis of both feet Take 1 Tablet by mouth in the morning. 90 Tablet 3 4 7:54 AM EST 08/25/19 24 Suspended Ketoconazole 2 % External Shampoo (Nizoral)Ginger cations:Sebor rheic dermatitis of scalp Lather into scalp in the shower, leave in for 3 minutes, then rinse. Do this three times per week 120 mL 11 4 11:42 AM EDT 03/19/20 24 Suspended Empagliflozin 25 MG Oral Tablet (Jardiance)In dications:Typ e 2 diabetes mellitus with stage 3a chronic kidney disease, without long-term current use of insulin (HCC) Take 1 Tablet by mouth in the morning. 90 Tablet 3 05/07/20 24 Suspended Olmesartan Medoxomil 40 MG Oral Tablet (Benicar) Take 1 Tablet by mouth in the morning. 30 Tablet 11 05/14/20 24 024 Discontinued QUEtiapine Fumarate 25 MG Oral Tablet (SEROquel) Take 1 Tablet by mouth every night at bedtime. Review this medication with Mg's PCP after hospital discharge to see if this can be weaned off. If he starts having sundowning discuss goal of minimal antipsychotic dosage needed to control delirium. 30 Tablet 05/14/20 24 024 Discontinued documented as of this encounter (statuses [...] Notes * Ale Cobos RN - 05/14/2024 9:21 AM EST Mg Fuentesbritt Perez was referred as a potential candidate for enrollment for [facility]. A review of this chart was completed and: Mg meets criteria for [facility]. Jump to Initiation Referring care team was notified via : Epic communication documented in this encounter Plan of Treatment Upcoming Encounters Date Type Department Care Team (Late st Contact Info) Description 05/24/2024 1:40 PM EST Office Visit Family Practice 65 [facility] [place] 293 [place] [place] [address] Art Cavazos, DO 293 [place] [address] 05/31/2024 11:00 AM EST Therapy Neuropsychology [facility] [place] 200 [facility] [place] [address] Enrique Kay, PhD 200 [place] [address] 06/16/2024 12:30 PM EST Telemedicine Neurosurgery, [place] [address], [place] [id number] Crispin Nelson MD [address], [place] [id number] 07/09/2024 3:00 PM EST [facility] [address] [place] [address] Jose Ramos MD [address] [place] [address] [facility] 65 [facility] 293 [facility] [place] [address] 08/02/2024 1:00 PM EDT Office Visit Family Practice [address] [place] [address], [place] [phone] Art Cavazos, DO 293 [place] [address] 10/15/2024 2:00 PM EDT Nurse Only Family Practice [address] [place] [address] 293 [facility] [place] [phone] Sonali Echeverria, [place]ITCHIE [address] [place] [address] 11/01/2024 2:20 PM EDT Office Visit Nephrology, [facility] [address] [place] [address] Baldo Mackey MD [address] [place] [address] 12/03/2024 2:00 PM EDT Office Visit Rheumatology [facility] 25[address] [facility] [place] [address] Sarah Stroud CRNP [address] [place] [address] Scheduled Procedures Name Priority Associated Diagnoses Date/Ti [...] 05/09/2024, 10/2023, 11/19/2023, Additional history exists GFR 11/15/2024 05/17/2024, 04/26, 05/15/2024, Additional history exists Diabetic Foot Exam 03/31/2025 03/31/2024, 1 , 03/07/2022, Additional history exists CKD HGB USE SMARTSET 25985 05/12/202505/12, 05/11/2024, 05/11/2024, Additional history exists CKD PHOS USE SMARTSET 25673 05/17/202504/26, 05/16/2024, 05/15/2024, Additional history exists DTap/Tdap [...] this encounter Medical Devices Implanted Type Area Rag Production Worker Device Identifier Shelf Expiration Date Model / Serial / Lot Stent 7x40 Precise [id number] - [id number] Implanted:Qty : 1 on 05/09/2024 by Crispin Nelson [place] [facility] Left: Carotid [facility] [id number] 01/23/2026 [id number] / / [id number] documented as of this encounter Advance Directives * No Code (Latest Code Status on File) Date Activated Date Inactivated Comments 05/09/2024 8:31 AM This order re flects the patients wishes and were consensually agreed upon. Question Answer Comments Discussion of Advance Direct kade occurred with: Power of Dust Handler/Patient Workers Compensation Claims Analyst Does the patient have a Living Will? Yes, in sherrell rt and reviewed as current Does the patient have Health Care Power of Dust Handler? Yes, in chart and reviewed as current [...] Advance Direct kade occurred with: Power of Dust Handler/Patient Workers Compensation Claims Analyst Does the patient have Health Care Power of Dust Handler? Yes, in chart and reviewed as current Intubation? No Cardiac Compressions? No Defibrillation? No Synchronized Cardioversion? No External Pacemaker? No Cardiac Drugs? No Care Teams Tube Sizer And Cutter Operator Relationship Specialty Start Date End Date Art Cavazos DO [address] [facility] [place] [facility] [address] PCP - General Internal Medicine 11/19/23 documented as of this encounter
--- OUTSIDE RECORDS SUMMARY | 2024-05-18 13:08 | External Medical Summary | Summary of Care ---
Author Name Unknown Organization [facility] Address [address] [place] [address] Phone [phone] Care Team Providers Care Certified Forklift Operator Name Role Phone Art Cavazos DO Primary Care Provider [phone] Encounter Details Date Type Department Care Team (Late st Contact Info) Description 05/14/2024 Documentation [facility] [place] [address] [place] [address] Ale Cobos RN [address] [facility] [address] [place] [address] Allergies Active Allergy Reactions Criticality Noted Date [...] the evening. 473 mL 05/14/20 24 Active [employer]you ULTRA SYSTEM W/DEVICE KITIndications :DM type 2, [...] goal of less than 7.0% ([facility]) Use to test sugars once daily 100 Each 3 08/30/19 22 Suspended Vitamin D-400 10 MCG (400 UNIT) Oral Tablet (cholecalcifer ol (VIT D3))Indication s:Vitamin D deficiency Take 2 Tablets by mouth daily. 120 Tablet 3 07/08/19 23 Suspended [employer]uch Ultra In Vitro Strip (Glucose Blood)Indicati ons:Type [...] CG/0.3 mL, 12 YRS AND ABOVE, IM ([facility]) 03/31/2024,03/21/2023 COVID-19, mRNA, LNP-s, PF, B ooster, [...] RN - 05/14/2024 9:21 AM EST Mg Little was referred as a potential candidate for [...] Description 05/31/2024 11:00 AM EST Therapy Neuropsychology [place] [address] [place] [address] Enrique Kay, PhD [address] [place] [address] 06/16/2024 12:30 PM EST Telemedicine Neurosurgery, [place] [address] [place], [place] [id number] Crispin Nelson MD [address] [place], [place] [id number] 07/09/2024 3:00 PM EST Telemedicine Neurology [address] [place] [address] [place] [address] Jose Ramos MD [address] [place] [address] [facility] 65 [facility] [address] [place] [address] 08/02/2024 1:00 PM EDT Office Visit Family Practice [address] [place] [address] [address] [place] [address] Art Cavazos DO 293 [place] [address] 10/15/2024 2:00 PM EDT Nurse Only Family Practice [address] [place] [address] [address] [place] [address] Sonali Echeverria, RITCHIE 293 [place] [address] 11/01/2024 2:20 PM EDT Office Visit Nephrology, [facility] [address] [place] [address] Baldo Mackey MD [address] [place], [place] [address] 12/03/2024 2:00 PM EDT Office Visit Rheumatology [place] [address] [place] [address] Sarah Stroud CRNP [facility] [employer] [facility] [place] [address] Scheduled Procedures Name Priority Associated Diagnoses Date/Ti [...] Additional history exists CKD HGB USE SMARTSET 33253 05/12/202505/12, 05/11/2024, 05/11/2024, Additional history exists CKD PHOS USE SMARTSET 20696 05/14/2025 12, 05/13/2024, 05/12/2024, Additional history exists [...] this encounter Medical Devices Implanted Type Area Mill Helper Device Identifier Shelf Expiration Date Model / Serial / Lot Stent 7x40 Precise [id number] - [id number] Implanted:Qty : 1 on 05/09/2024 by Crispin Nelson MD at [facility] Left: Carotid [employer] [facility] [id number] 01/23/2026 [id number] / / [id number] documented as of this encounter Advance Directives * No Code (Latest Code Status on File) Date Activated Date Inactivated Comments 05/09/2024 8:31 AM This order re flects the patients wishes and were consensually agreed upon. Question Answer Comments Discussion of Advance Direct kade occurred with: Power of Electric Meter Reader/Patient Power Operator Does the patient have a Living Will? Yes, in sherrell rt and reviewed as current Does the patient have Health Care Power of Electric Meter Reader? Yes, in chart and reviewed as current [...] Advance Direct kade occurred with: Power of Electric Meter Reader/Patient Power Operator Does the patient have Health Care Power of Electric Meter Reader? Yes, in chart and reviewed as current Intubation? No Cardiac Compressions? No Defibrillation? No Synchronized Cardioversion? No External Pacemaker? No Cardiac Drugs? No Care Teams Certified Forklift Operator Relationship Specialty Start Date End Date Art Cavazos DO [address] [place] [address] PCP - General Internal Medicine 11/19/23 documented as of this encounter
--- OUTSIDE RECORDS SUMMARY | 2024-05-18 13:08 | External Medical Summary ---
Author Name Unknown Address Unknown Organization K01:LABORATORY [facility] [place] - [address] [place] [address] Laboratory Report Ordering Provider Test Date Status PATRICIA CASTILLO 05/16/2024 07:10:00 Final Observation Date Value Abnormality Reference (Units ) Status BUN 05/16/2024 07:10:00 28 Above high normal 6-20 (mg/dL) Final Creatinine 05/16/2024 07:10:00 1.3 Above high normal 0.6-1.2 (mg/dL) Final Glomerular filtration rate/1.73 sq M.predicted [Volume Rate/Area] in Serum, Plasma or Blood by Creatinine-based formula (CKD-EPI) 05/16/2024 07:10:00 57 Below low normal >=60 (mL/min) Final eGFR is calculated based on the CKD-EPI 2020 equation. Sodium 05/16/2024 07:10:00 142 135-146 (m mol/L) Final Potassium 05/16/2024 07:10:00 3.5 3.5-5.1 (m mol/L) Final Cl 05/16/2024 07:10:00 105 98-107 (mm ol/L) Final CO2 05/16/2024 07:10:00 23 22-32 (mmo l/L) Final Anion gap 05/16/2024 07:10:00 14 7-15 (mmol /L) Final Glucose 05/16/2024 07:10:00 134 Above high normal 70 -120 (mg/dL) Final Calcium 05/16/2024 07:10:00 9.4 8.4-10.2 ( mg/dL) Final Albumin 05/16/2024 07:10:00 3.7 Below low normal 3.8 -5.0 (g/dL) Final Phosphate 05/16/2024 07:10:00 3.5 2.5-4.8 (m g/dL) Final Performing Location LABORATORY C - [address] [facility] [address]
--- OUTSIDE RECORDS SUMMARY | 2024-05-18 13:08 | External Medical Summary ---
Author Name Unknown Address Unknown Organization : Laboratory Report Ordering Provider Test Date Status NOMI MESSER 05/15/2024 08:26:07 Final Observation Date Value Abnormality Reference (Units ) Status Glucose Point of Care 05/15/2024 08:26:07 98 70-120 (mg/dL) Final Performing Location
--- OUTSIDE RECORDS SUMMARY | 2024-05-18 13:08 | External Medical Summary ---
Author Name Unknown Address Unknown Organization : Laboratory Report Ordering Provider Test Date Status NOMI MESSER 05/16/2024 21:12:31 Final Observation Date Value Abnormality Reference (Units ) Status Glucose Point of Care 05/16/2024 21:12:31 163 Above high normal 70-120 (mg/dL) Final Performing Location
--- OUTSIDE RECORDS SUMMARY | 2024-05-18 13:08 | External Medical Summary ---
Author Name Unknown Address Unknown Organization : Laboratory Report Ordering Provider Test Date Status CESAR MESSER 05/17/2024 08:21:48 Final Observation Date Value Abnormality Reference (Units ) Status Glucose Point of Care 05/17/2024 08:21:48 134 Above high normal 70-120 (mg/dL) Final Performing Location
--- OUTSIDE RECORDS SUMMARY | 2024-05-18 13:08 | External Medical Summary ---
Author Name Unknown Address Unknown Organization : Laboratory Report Ordering Provider Test Date Status NOMI MESSER 05/15/2024 21:23:24 Final Observation Date Value Abnormality Reference (Units ) Status Glucose Point of Care 05/15/2024 21:23:24 136 Above high normal 70-120 (mg/dL) Final Performing Location
--- OUTSIDE RECORDS SUMMARY | 2024-05-18 13:08 | External Medical Summary ---
Author Name Unknown Address Unknown Organization : Laboratory Report Ordering Provider Test Date Status NOMI MESSER 05/15/2024 17:22:33 Final Observation Date Value Abnormality Reference (Units ) Status Glucose Point of Care 05/15/2024 17:22:33 135 Above high normal 70-120 (mg/dL) Final Performing Location
--- OUTSIDE RECORDS SUMMARY | 2024-05-18 13:08 | External Medical Summary ---
Author Name Unknown Address Unknown Organization K01:LABORATORY [facility] [place] - [address] [address] Laboratory Report Ordering Provider Test Date Status PATRICIA CASTILLO 05/14/2024 07:36:00 Final Observation Date Value Abnormality Reference (Units ) Status BUN 05/14/2024 07:36:00 26 Above high normal 6-20 (mg/dL) Final Creatinine 05/14/2024 07:36:00 1.3 Above high normal 0.6-1.2 (mg/dL) Final Glomerular filtration rate/1.73 sq M.predicted [Volume Rate/Area] in Serum, Plasma or Blood by Creatinine-based formula (CKD-EPI) 05/14/2024 07:36:00 57 Below low normal >=60 (mL/min) Final eGFR is calculated based on the CKD-EPI 2020 equation. Sodium 05/14/2024 07:36:00 139 135-146 (m mol/L) Final Potassium 05/14/2024 07:36:00 3.6 3.5-5.1 (m mol/L) Final Cl 05/14/2024 07:36:00 103 98-107 (mm ol/L) Final CO2 05/14/2024 07:36:00 24 22-32 (mmo l/L) Final Anion gap 05/14/2024 07:36:00 12 7-15 (mmol /L) Final Glucose 05/14/2024 07:36:00 155 Above high normal 70 -120 (mg/dL) Final Calcium 05/14/2024 07:36:00 9.0 8.4-10.2 ( mg/dL) Final Albumin 05/14/2024 07:36:00 3.8 3.8-5.0 (g /dL) Final Phosphate 05/14/2024 07:36:00 3.2 2.5-4.8 (m g/dL) Final Performing Location LAB[facility]ATORY [facility] [place] - [address] [place] [address]
--- OUTSIDE RECORDS SUMMARY | 2024-05-18 13:08 | External Medical Summary ---
Author Name Unknown Address Unknown Organization : Laboratory Report Ordering Provider Test Date Status NOMI MESSER 05/14/2024 11:51:08 Final Observation Date Value Abnormality Reference (Units ) Status Glucose Point of Care 05/14/2024 11:51:08 151 Above high normal 70-120 (mg/dL) Final Performing Location
--- OUTSIDE RECORDS SUMMARY | 2024-05-18 13:08 | External Medical Summary ---
Author Name Unknown Address Unknown Organization : Laboratory Report Ordering Provider Test Date Status NOMI MESSER 05/13/2024 21:01:50 Final Observation Date Value Abnormality Reference (Units ) Status Glucose Point of Care 05/13/2024 21:01:50 176 Above high normal 70-120 (mg/dL) Final Performing Location
--- OUTSIDE RECORDS SUMMARY | 2024-05-18 13:08 | External Medical Summary ---
Author Name Unknown Address Unknown Organization : Laboratory Report Ordering Provider Test Date Status NOMI MESSER 05/16/2024 08:01:27 Final Observation Date Value Abnormality Reference (Units ) Status Glucose Point of Care 05/16/2024 08:01:27 163 Above high normal 70-120 (mg/dL) Final Performing Location
--- OUTSIDE RECORDS SUMMARY | 2024-05-18 13:08 | External Medical Summary | Summary of Care ---
Author Name Unknown Organization [facility] Address [address] [place] [address] Phone [phone] Care Team Providers Care Manager Ui Name Role Phone Art Cavazos DO Primary Care Provider [phone] Encounter Details Date Type Department Care Team (Latest Contact Info) Description 05/08/2024 5:05 PM EST - 05/08/2024 11:59 PM EST Hospital Encounter Radiology Film File [address] [place] [address] Discharge Disposition: Home - Self [...] 11:00 AM EST Therapy Neuropsychology [facility] [place] [address] [place] [address] Enrique Kay, PhD 200 [facility] [place] [address] 06/16/2024 12:30 PM EST Telemedicine Neurosurgery, [place] [address] [place] [address] Crispin Nelson MD [address] [place] [address] 07/09/2024 3:00 PM EST [facility] [address] [place] [address] Jose Ramos MD [address] [place] [address] [facility] [address] [facility] [place] [address] 08/02/2024 1:00 PM EDT Office Visit Family Practice 65 [facility] [address] [facility] [place] [address] Art Cavazos DO 293 [facility] [place] [address] 10/15/2024 2:00 PM EDT Nurse Only Family Practice 65 [facility] [address] [facility] [place] [address] Sonali Echeverria RN 293 [facility] [place] [id number] 11/01/2024 2:20 PM EDT Office Visit Nephrology, [facility] 200 [facility] [place] [address] Baldo Mackey MD [address] [place], [place] [address] 12/03/2024 2:00 PM EDT Office Visit Rheumatology [facility] [address] [employer] [address] Sarah Stroud CRNP [address] [place] [address] Scheduled Procedures Name Priority Associated Diagnoses Date/Ti [...] Additional history exists CKD HGB USE SMARTSET 77137 05/12/202505/12, 05/11/2024, 05/11/2024, Additional history exists CKD PHOS USE SMARTSET 22452 05/14/2025 12, 05/13/2024, 05/12/2024, Additional history exists [...] this encounter Medical Devices Implanted Type Area Air Saw Operator Device Identifier Shelf Expiration Date Model / Serial / Lot Stent 7x40 Precise [id number] - [id number] Implanted:Qty : 1 on 05/09/2024 by Crispin Nelson MD at [facility] Left: Carotid [facility] [id number] 01/23/2026 [id number] / / [id number] documented as of this encounter Procedures Procedure [...] study not interpreted or resulted by a [facility] or [employer] contracted radiologist. us Napoleon Gresham MD RAD MRI-MRA Final Result documented in this encounter Advance Directives * No Code (Latest Code Status on File) Date Activated Date Inactivated Comments 05/09/2024 8:31 AM This order re flects the patients wishes and were consensually agreed upon. Question Answer Comments Discussion of Advance Direct kade occurred with: Power of Merchandise Flow Team Leader/Patient Ornament Maker Hand Does the patient have a Living Will? Yes, in sherrell rt and reviewed as current Does the patient have Health Care Power of Merchandise Flow Team Leader? Yes, in chart and reviewed as current [...] Advance Direct kade occurred with: Power of Merchandise Flow Team Leader/Patient Ornament Maker Hand Does the patient have Health Care Power of Merchandise Flow Team Leader? Yes, in chart and reviewed as current Intubation? No Cardiac Compressions? No Defibrillation? No Synchronized Cardioversion? No External Pacemaker? No Cardiac Drugs? No Care Teams Manager Ui Relationship Specialty Start Date End Date Art Cavazos DO [address] [place] [address] PCP - General Internal Medicine 11/19/23 documented as of this encounter
--- OUTSIDE RECORDS SUMMARY | 2024-05-18 13:08 | External Medical Summary ---
Author Name Unknown Address Unknown Organization K01:LABORATORY [facility] [place] - [address] [place] [address] Laboratory Report Ordering Provider Test Date Status PATRICIA CASTILLO 05/17/2024 08:26:00 Final Observation Date Value Abnormality Reference (Units ) Status BUN 05/17/2024 08:26:00 31 Above high normal 6-20 (mg/dL) Final Creatinine 05/17/2024 08:26:00 1.3 Above high normal 0.6-1.2 (mg/dL) Final Glomerular filtration rate/1.73 sq M.predicted [Volume Rate/Area] in Serum, Plasma or Blood by Creatinine-based formula (CKD-EPI) 05/17/2024 08:26:00 57 Below low normal >=60 (mL/min) Final eGFR is calculated based on the CKD-EPI 2020 equation. Sodium 05/17/2024 08:26:00 140 135-146 (m mol/L) Final Potassium 05/17/2024 08:26:00 4.1 3.5-5.1 (m mol/L) Final Cl 05/17/2024 08:26:00 104 98-107 (mm ol/L) Final CO2 05/17/2024 08:26:00 22 22-32 (mmo l/L) Final Anion gap 05/17/2024 08:26:00 14 7-15 (mmol /L) Final Glucose 05/17/2024 08:26:00 124 Above high normal 70 -120 (mg/dL) Final Calcium 05/17/2024 08:26:00 9.6 8.4-10.2 ( mg/dL) Final Albumin 05/17/2024 08:26:00 3.7 Below low normal 3.8 -5.0 (g/dL) Final Phosphate 05/17/2024 08:26:00 4.0 2.5-4.8 (m g/dL) Final Performing Location LABORATORY C - [address] [facility] [address]
--- OUTSIDE RECORDS SUMMARY | 2024-05-18 13:09 | External Medical Summary ---
Author Name Unknown Address Unknown Organization K01:LABORATORY [facility] [place] - [facility] [place][note 2] [address] [facility] [address] [facility] [address] Laboratory Report Ordering Provider Test Date Status NEY RODRÍGUEZ 05/11/2024 14:59:00 Final Observation Date Value Abnormality Reference (Units ) Status Clot formation [Time] in Blood by Thromboelastography 05/11/2024 14:59:00 4.8 2.5-8.3 (minutes) Final Clot strength in Blood by Thromboelastography 05/11/2024 14:59:00 1.2 0.5-3.7 (minutes) Final Clot angle in Blood by Thromboelastography 05/11/2024 14:59:00 72.7 46.8-78.4 (degrees) Final Maximum clot firmness [Length] in Blood by Thromboelastography 05/11/2024 14:59:00 72.0 50.6-72.5 (mm) Final Coagulation index in Blood b y Thromboelastography 05/11/2024 14:59:00 2.9 -3.0-3.0 Final Clot Lysis [Length fraction] in Blood by Thromboelastography --30 minutes post maximum clot amplitude 05/11/2024 14:59:00 1.4 0.0-7.5 (%) Final This is an appended report. These results have been appended to a previously preliminary verified report. Performing Location LABORATORY [facility] [place] - [address] [place] [address]
--- OUTSIDE RECORDS SUMMARY | 2024-05-18 13:09 | External Medical Summary ---
Author Name Unknown Address Unknown Organization K01:LABORATORY C - [address] [place] [address] Laboratory Report Ordering Provider Test Date Status CHARO ALVAREZ 05/11/2024 07:17:00 Final Observation Date Value Abnormality Reference (Units ) Status Phosphate 05/11/2024 07:17:00 3.1 2.5-4.8 (m g/dL) Final Performing Location LABORATORY [facility] - [address] [place] [address]
--- OUTSIDE RECORDS SUMMARY | 2024-05-18 13:09 | External Medical Summary | Continuity of Care Document ---
Author Name Unknown Organization [facility] [address] Address [address] [place], [place] [id number] [id number] Date(s): 05/08/24 - 05/08/24 [facility] [address] [facility] [address] [place], [place] [id number] Discharge Disposition: Home or Self Care Attending Physician: MD Tan Evan David Referring Physician: DO Horowitz Ryan M Social History Social History Type Response Sex Male Sex Representation Male (finding) Patient Care team information Care Team Related Persons Name: RORO ORDONEZ
--- OUTSIDE RECORDS SUMMARY | 2024-05-18 13:09 | External Medical Summary ---
Author Name Unknown Address Unknown Organization : Laboratory Report Ordering Provider Test Date Status SHY LEA 05/11/2024 21:51:48 Final Observation Date Value Abnormality Reference (Units ) Status Glucose Point of Care 05/11/2024 21:51:48 192 Above high normal 70-120 (mg/dL) Final Performing Location
--- OUTSIDE RECORDS SUMMARY | 2024-05-18 13:09 | External Medical Summary | Summary of Care ---
Author Name Unknown Organization [facility] Address [address] [place] [address] Phone [phone] Care Team Providers Care Continuous Pickling Line Pickler Helper Name Role Phone Art Cavazos DO Primary Care Provider [phone] Encounter Details Date Type Department Care Team (Late st Contact Info) Description 05/08/2024 Orders Only GPS Provider Triage [address] [place] [address] Napoleon Gresham MD [address] [place] [address] Allergies Active Allergy Reactions Criticality Noted Date Comments Amoxicillin Fever,Rash Medium 12/29/2013 documented as of this encounter (statuses as of 05/13/2024) Medications SepSensor SYSTEM W/DEVICE KITIndications: DM type 2, goal [...] A1c goal of less than 7.0% ([facility]) Use to test sugars once daily 100 Each 3 2 Suspended Vitamin D-400 10 MCG (400 UNIT) Oral Tablet (cholecalcifero l (VIT D3))Indications :Vitamin D deficiency Take 2 Tablets by mouth daily. 120 Tablet 3 3 Suspended OneTouch Ultra In Vitro Strip (Glucose Blood)Indicatio ns:Type 2 diabetes mellitus with stage 3a chronic kidney disease, without long-term current use of insulin ([facility]) TEST 1 TO 2 TIMES [...] without long-term current use of insulin ([facility]) Take 1 Tablet by mouth [...] Description 05/31/2024 11:00 AM EST Therapy Neuropsychology [facility] [place] [address] [place] [address] Enrique Kay, PhD [address] [facility] [place] [address] 06/16/2024 12:30 PM EST Telemedicine Neurosurgery, [place] [address] [place], [place] [id number] Crispin Nelson MD [address] [place], [place] [id number] 07/09/2024 3:00 PM EST [facility]medicine [facility] [address] [place] [address] [place], Jose Velez MD [address] [place], [place] [id number] [facility] [address] [place] [address] 08/02/2024 1:00 PM EDT Office Visit Family Practice 65 [facility] [address] [place] [address] Art Cavazos DO [address] [place] [address] 10/15/2024 2:00 PM EDT Nurse Only Family Practice [address] [place] [address] [address] [place] [address] Sonali Echeverria RN [address] [place] [address] 11/01/2024 2:20 PM EDT Office Visit Nephrology, [facility] [address] [place] [address] Baldo Mackey MD [address] [place], [place] [address] 12/03/2024 2:00 PM EDT Office Visit Rheumatology [facility] [address] [employer] [address] [place] [address] Sarah Stroud CRNP [address] [place] [address] Scheduled Procedures Name Priority Associated Diagnoses Date/Ti [...] Additional history exists CKD HGB USE SMARTSET 45345 05/12/202505/12, 05/11/2024, 05/11/2024, Additional history exists CKD PHOS USE SMARTSET 26573 05/13/202504/25, 05/12/2024, 05/11/2024, Additional history exists DTap/Tdap [...] this encounter Medical Devices Implanted Type Area Hat And Cap Opener Device Identifier Shelf Expiration Date Model / Serial / Lot Stent 7x40 Precise [id number] - [id number] Implanted:Qty : 1 on 05/09/2024 by Crispin Nelson MD at [facility] Left: Carotid C[employer]IS [employer] [id number] 01/23/2026 [id number] / / [id number] documented as of this encounter Procedures Procedure [...] interpreted or resulted by a [facility] or [employer] contracted radiologist. us Napoleon Gresham MD RAD CT Final Result documented in this encounter Advance Directives * No Code (Latest Code Status on File) Date Activated Date Inactivated Comments 05/09/2024 8:31 AM This order re flects the patients wishes and were consensually agreed upon. Question Answer Comments Discussion of Advance Direct kade occurred with: Power of Floral Artist/Patient Installer Apprentice Does the patient have a Living Will? Yes, in sherrell rt and reviewed as current Does the patient have Health Care Power of Floral Artist? Yes, in chart and reviewed as current [...] Advance Direct kade occurred with: Power of Floral Artist/Patient Installer Apprentice Does the patient have Health Care Power of Floral Artist? Yes, in chart and reviewed as current Intubation? No Cardiac Compressions? No Defibrillation? No Synchronized Cardioversion? No External Pacemaker? No Cardiac Drugs? No Care Teams Continuous Pickling Line Pickler Helper Relationship Specialty Start Date End Date Art Cavazos DO [address] [facility] [place] [address] PCP - General Internal Medicine 11/19/23 documented as of this encounter
--- OUTSIDE RECORDS SUMMARY | 2024-05-18 13:09 | External Medical Summary ---
Author Name Unknown Address Unknown Organization : Laboratory Report Ordering Provider Test Date Status SHY LEA 05/12/2024 08:38:31 Final Observation Date Value Abnormality Reference (Units ) Status Glucose Point of Care 05/12/2024 08:38:31 159 Above high normal 70-120 (mg/dL) Final Performing Location
--- OUTSIDE RECORDS SUMMARY | 2024-05-18 13:09 | External Medical Summary ---
Author Name Unknown Address Unknown Organization : Laboratory Report Ordering Provider Test Date Status NOMI MESSER 05/13/2024 12:13:18 Final Observation Date Value Abnormality Reference (Units ) Status Glucose Point of Care 05/13/2024 12:13:18 221 Above high normal 70-120 (mg/dL) Final Performing Location
--- OUTSIDE RECORDS SUMMARY | 2024-05-18 13:09 | External Medical Summary ---
Author Name Unknown Address Unknown Organization K01:LABORATORY [facility] [place] - [address] [place] [address] Laboratory Report Ordering Provider Test Date Status LANEY NICHOLS 05/11/2024 07:17:00 Final Warfarin Therapy
INR: 2 .0-3.0 conventional anticoagulation
INR: 2.5- 3.5 high intensity anticoagulation Observation Date Value Abnormality Reference (Units ) Status PT 05/11/2024 07:17:00 16.6 Above high normal 11 .6-15.2 (seconds) Final INR 05/11/2024 07:17:00 1.3 Above high normal 0. 8-1.2 Final Performing Location LABORATORY [facility] [place] - [address] [place] [address]
--- OUTSIDE RECORDS SUMMARY | 2024-05-18 13:09 | External Medical Summary ---
Author Name Unknown Address Unknown Organization : Laboratory Report Ordering Provider Test Date Status NOMI MESSER 05/13/2024 07:31:24 Final Observation Date Value Abnormality Reference (Units ) Status Glucose Point of Care 05/13/2024 07:31:24 186 Above high normal 70-120 (mg/dL) Final Performing Location
--- OUTSIDE RECORDS SUMMARY | 2024-05-18 13:09 | External Medical Summary ---
Author Name Unknown Address Unknown Organization K01:LABORATORY [facility] [place] [address] [facility] [address] Laboratory Report Ordering Provider Test Date Status LANEY NICHOLS 05/11/2024 07:17:00 Final Observation Date Value Abnormality Reference (Units ) Status WBC, Total 05/11/2024 07:17:00 12.54 Above high normal 4.00-10.80 (K/uL) Final RBC 05/11/2024 07:17:00 4.76 4.50-5.25 (M/uL) Final Hemoglobin 05/11/2024 07:17:00 14.5 14.0-16.8 (g/dL) Final HCT 05/11/2024 07:17:00 43.5 40.0-48.4 (%) Final MCV 05/11/2024 07:17:00 91.4 82.0-99.5 (fL) Final MCH 05/11/2024 07:17:00 30.5 27.0-34.0 (pg) Final MCHC 05/11/2024 07:17:00 33.3 32.0-36.0 (g/dL) Final RDW 05/11/2024 07:17:00 14.5 11.5-15.5 (%) Final Platelets 05/11/2024 07:17:00 172 140-400 (K/uL) Final MPV 05/11/2024 07:17:00 10.5 6.6-11.1 (fL) Final Nucleated erythrocytes/100 leukocytes [Ratio] in Blood by Automated count 05/11/2024 07:17:00 0 <=0 (/100 WBCs) Final Performing Location LABORATORY [facility] [place] [address] [facility] [address]
--- OUTSIDE RECORDS SUMMARY | 2024-05-18 13:09 | External Medical Summary ---
Author Name Unknown Address Unknown Organization K01:LABORATORY C - [address] [place] [address] Laboratory Report Ordering Provider Test Date Status CHARO ALVAREZ 05/12/2024 06:09:00 Final Observation Date Value Abnormality Reference (Units ) Status Magnesium 05/12/2024 06:09:00 2.1 1.5-2.6 (m g/dL) Final Performing Location LABORATORY [facility] - [address] [place] [address]
--- OUTSIDE RECORDS SUMMARY | 2024-05-18 13:09 | External Medical Summary ---
Author Name Unknown Address Unknown Organization K01:LABORATORY [facility] [place] - [facility] [address] [facility] [address] Laboratory Report Ordering Provider Test Date Status JOANN SIMEON 05/11/2024 09:18:00 Final Assay measures the level of platelet P2Y12 [...] clopidogrel usage in these patients is unknown. Observation Date Value Abnormality Reference (Units ) Status Platelet aggregation ADP induced [Units/volume] in Blood 05/11/2024 09:18:00 123 Below low normal 182-335 (PRU) Final Performing Location LABORATORY [facility] [place] - [facility] [address] [facility] [address]
--- OUTSIDE RECORDS SUMMARY | 2024-05-18 13:09 | External Medical Summary | Summary of Care ---
Author Name Unknown Organization [facility] Address [address] [place] [address] Phone [phone] Care Team Providers Care Youth Counselor Name Role Phone Art Cavazos DO Primary Care Provider [phone] Encounter Details Date Type Department Care Team (Late st Contact Info) Description 05/07/2024 2:45 PM EST Nurse Only Family Practice 65 [facility] [address] [place] [address] College, Nurse [facility] Prac [address] [address] Allergies Active Allergy Reactions Criticality Noted Date Comments Amoxicillin Fever,Rash Medium 12/29/2013 documented as of this encounter (statuses as of 05/11/2024) Medications Blurr SYSTEM W/DEVICE KITIndications :DM type 2, goal [...] hemoglobin A1c goal of less than 7.0% ([facility]) Use to test sugars once daily 100 Each 3 2 Suspended Vitamin D-400 10 MCG (400 UNIT) Oral Tablet (cholecalcifer ol (VIT D3))Indication s:Vitamin D deficiency Take 2 Tablets by mouth daily. 120 Tablet 3 3 Suspended OneTouch Ultra In Vitro Strip (Glucose Blood)Indicati ons:Type 2 diabetes mellitus with stage 3a chronic kidney disease, without long-term current use of insulin ([facility]) TEST 1 TO 2 TIMES DAILY. [...] 4 Suspended Allopurinol 100 MG Oral Tablet (Zyloprim)Ginger cations:Gouty arthritis of both feet Take 1 Tablet by mouth in the morning. 90 Tablet 3 02/16/2024 11:23 AM EDT 4 Suspended Omeprazole 40 MG Oral Capsule Delayed Release (PriLOSEC) TAKE ONE CAPSULE BY MOUTH IN THE MORNING. 100 Capsule 3 02/28/2024 9:11 AM EDT 4 11/24/19 25 Suspended Ketoconazole 2 % External Shampoo (Nizoral)Indic ations:Seborrh eic dermatitis of scalp Lather into scalp in the shower, leave in for 3 minutes, then rinse. Do this three times per week 120 mL 11 03/22/2024 11:42 AM EDT 4 Suspended Empagliflozin 25 MG Oral Tablet (Jardiance)Ind ications:Type 2 diabetes mellitus with stage 3a chronic kidney disease, without long-term current use of insulin ([facility]) Take 1 Tablet by mouth in the morning. 90 Tablet 3 4 05/07/20 24 Discontinued (Medication List Clean Up) documented as of this encounter (statuses as of 05/11/2024) Active Problems Problem Noted Date Diagnosed Date Gait abnormality 05/10/2024 Impaired mobility and ADLs [...] as of this encounter (statuses as of 05/11/2024) Resolved Problems Problem Noted Date Diagnosed Date [...] as of this encounter (statuses as of 05/11/2024) Immunizations Name Administration Dates Next Due COVID-19 mRNA, LNP-s, No Pre serve, 2-Dose Series (Moderna) 08/02/2020,07/05/2020 COVID-19, MRNA-LNP, PF, 30 M CG/0.3 mL, 12 YRS AND ABOVE, IM (Urban Remedy-Comirnaty) 03/31/2024,03/21/2023 COVID-19, mRNA, LNP-s, PF, B ooster, [...] as of this encounter Progress Notes * Ashtyn Morgan OSA - 05/07/2024 3:59 PM EST Returned Sonali call * OrrSonali NESTOR Kirkpatrick - 05/07/2024 2:13 PM EST Stopped by to discuss jardiance. States he lost his script, advised to call. States he did last week and was told it would be sent out. Advised to call back again and let me know. Thank you documented in this encounter Plan of Treatment Upcoming Encounters Date Type Department Care Team (Late st Contact Info) Description 05/31/2024 11:00 AM EST Therapy Neuropsychology [facility] 200 [facility] [place] [address] Enrique Kay, PhD 200 [place] [address] 07/09/2024 3:00 PM EST Telemedicine Neurology [address] [place] [address] Jose Ramos MD [address] [facility] [address] Cart, [facility] 65 [facility] 293 [place] [address] 08/02/2024 1:00 PM EDT Office Visit Family Practice 65 [facility] 293 [place] [address] Art Cavazos, DO 293 [place] [address] 10/15/2024 2:00 PM EDT Nurse Only Family Practice [address] [place] [address], [place] [address] [place] [address] Sonali Echeverria, RN [address] [place] [address] 11/01/2024 2:20 PM EDT Office Visit Nephrology, Quiana Lundberg 200 [facility] [place], [place] [id number] Baldo Mackey MD 200 [facility] [place], [place] [address] 12/03/2024 2:00 PM EDT Office Visit Rheumatology [facility] [address] [place], [place] [address] Sarah Stroud CRNP [address] [place], [place] [address] Scheduled Procedures Name Priority [...] 11/0 10/2023, 11/19/2023, Additional history exists GFR 11/08/2024 05/10/2024, 04/25, 03/31/2024, Additional history exists Diabetic Foot Exam 03/31/2025 03/31/2024, 1 , 03/07/2022, Additional history exists CKD HGB USE SMARTSET 33267 05/11/202505/11, 05/10/2024, 05/10/2024, Additional history exists CKD PHOS USE SMARTSET 88344 05/11/202504/25, 05/10/2024, 03/31/2024, Additional history exists DTap/Tdap Vaccines (2 - [...] this encounter Medical Devices Implanted Type Area Cable Testers Helper Device Identifier Shelf Expiration Date Model / Serial / Lot Stent 7x40 Precise [id number] - [id number] Implanted:Qty : 1 on 05/09/2024 by Crispin Nelson MD at OR [facility] Left: Carotid CORDIS PHIL [id number] 01/23/2026 [id number] / / [id number] documented as of this encounter Advance Directives * No Code (Latest Code Status on File) Date Activated Date Inactivated Comments 05/09/2024 8:31 AM This order re flects the patients wishes and were consensually agreed upon. Question Answer Comments Discussion of Advance Direct kade occurred with: Power of Storage Specialist/Patient Lipstick Molder Does the patient have a Living Will? Yes, in sherrell rt and reviewed as current Does the patient have Health Care Power of Storage Specialist? Yes, in chart and reviewed as current [...] Advance Direct kade occurred with: Power of Storage Specialist/Patient Lipstick Molder Does the patient have Health Care Power of Storage Specialist? Yes, in chart and reviewed as current Intubation? No Cardiac Compressions? No Defibrillation? No Synchronized Cardioversion? No External Pacemaker? No Cardiac Drugs? No Care Teams Youth Counselor Relationship Specialty Start Date End Date Art Cavazos DO [address] [place] [address] PCP - General Internal Medicine 11/19/23 documented as of this encounter
--- OUTSIDE RECORDS SUMMARY | 2024-05-18 13:09 | External Medical Summary ---
Author Name Unknown Address Unknown Organization K01:LABORATORY [facility] [place] - [facility] [address] [facility] [address] [facility] [address] Laboratory Report Ordering Provider Test Date Status JOANN SIMEON 05/11/2024 09:18:00 Final Assay designed to measure th e effect of aspirin and it should not [...] aspirin usage in these patients is unknown.
null Observation Date Value Abnormality Reference (Units ) Status Platelet aggregation arachidonate induced [Units/volume] in Platelet rich plasma 05/11/2024 09:18:00 479 Below low normal >=550 (ARU) Final Performing Location LAB[facility]ATORY [facility] [place] - [address] [place] [address]
--- OUTSIDE RECORDS SUMMARY | 2024-05-18 13:09 | External Medical Summary ---
Author Name Unknown Address Unknown Organization K01:LABORATORY [facility] [place] - [address] [facility] [place] [address] Laboratory Report Ordering Provider Test Date Status CHARO ALVAREZ 05/12/2024 06:09:00 Final Observation Date Value Abnormality Reference (Units ) Status Calcium.ionized [Moles/volume] in Serum or Plasma by Ion-selective membrane electrode (ISE) 05/12/2024 06:09:00 1.18 1.13-1.32 (mmol/L) Final This test was developed and its performance characteristics dtermined by [employer]. It has not been cleared or approved by the US Food and Drug Administration Performing Location LABORATORY [place] [address] [place] [address]
--- OUTSIDE RECORDS SUMMARY | 2024-05-18 13:09 | External Medical Summary ---
Author Name Unknown Address Unknown Organization K01:LABORATORY [facility] [place] - [facility] [address] [facility] [address] Laboratory Report Ordering Provider Test Date Status NEY RODRÍGUEZ 05/11/2024 14:58:00 Final Observation Date Value Abnormality Reference (Units ) Status WBC, Total 05/11/2024 14:58:00 13.13 Above high normal 4.00-10.80 (K/uL) Final RBC 05/11/2024 14:58:00 4.76 4.50-5.25 (M/uL) Final Hemoglobin 05/11/2024 14:58:00 14.4 14.0-16.8 (g/dL) Final HCT 05/11/2024 14:58:00 43.2 40.0-48.4 (%) Final MCV 05/11/2024 14:58:00 90.8 82.0-99.5 (fL) Final MCH 05/11/2024 14:58:00 30.3 27.0-34.0 (pg) Final MCHC 05/11/2024 14:58:00 33.3 32.0-36.0 (g/dL) Final RDW 05/11/2024 14:58:00 14.6 11.5-15.5 (%) Final Platelets 05/11/2024 14:58:00 182 140-400 (K/uL) Final MPV 05/11/2024 14:58:00 9.8 6.6-11.1 (fL) Final Nucleated erythrocytes/100 leukocytes [Ratio] in Blood by Automated count 05/11/2024 14:58:00 0 <=0 (/100 WBCs) Final Performing Location LABORATORY [facility] - [address] [facility] [address]
--- OUTSIDE RECORDS SUMMARY | 2024-05-18 13:09 | External Medical Summary ---
Author Name Unknown Address Unknown Organization K01:LABORATORY C - [address] [place] [address] Laboratory Report Ordering Provider Test Date Status CHARO ALVAREZ 05/12/2024 06:09:00 Final Observation Date Value Abnormality Reference (Units ) Status Phosphate 05/12/2024 06:09:00 2.5 2.5-4.8 (m g/dL) Final Performing Location LABORATORY [facility] - [address] [place] [address]
--- OUTSIDE RECORDS SUMMARY | 2024-05-18 13:09 | External Medical Summary ---
Author Name Unknown Address Unknown Organization : Laboratory Report Ordering Provider Test Date Status SHY LEA 05/11/2024 17:02:22 Final Observation Date Value Abnormality Reference (Units ) Status Glucose Point of Care 05/11/2024 17:02:22 148 Above high normal 70-120 (mg/dL) Final Performing Location
--- OUTSIDE RECORDS SUMMARY | 2024-05-18 13:09 | External Medical Summary ---
Author Name Unknown Address Unknown Organization : Laboratory Report Ordering Provider Test Date Status SHY LEA 05/12/2024 16:04:04 Final Observation Date Value Abnormality Reference (Units ) Status Glucose Point of Care 05/12/2024 16:04:04 131 Above high normal 70-120 (mg/dL) Final Performing Location
--- OUTSIDE RECORDS SUMMARY | 2024-05-18 13:09 | External Medical Summary ---
Author Name Unknown Address Unknown Organization : Laboratory Report Ordering Provider Test Date Status NOMI MESSER 05/12/2024 21:16:00 Final Observation Date Value Abnormality Reference (Units ) Status Glucose Point of Care 05/12/2024 21:16:00 177 Above high normal 70-120 (mg/dL) Final Performing Location
--- OUTSIDE RECORDS SUMMARY | 2024-05-18 13:09 | External Medical Summary ---
Author Name Unknown Address Unknown Organization : Laboratory Report Ordering Provider Test Date Status SHY LEA 05/12/2024 11:10:52 Final Observation Date Value Abnormality Reference (Units ) Status Glucose Point of Care 05/12/2024 11:10:52 155 Above high normal 70-120 (mg/dL) Final Performing Location
--- OUTSIDE RECORDS SUMMARY | 2024-05-18 13:09 | External Medical Summary ---
Author Name Unknown Address Unknown Organization K01:LABORATORY [facility] [place] - [facility] [address] [place] [address] Laboratory Report Ordering Provider Test Date Status JOANN SIMEON 05/11/2024 07:17:00 Final Observation Date Value Abnormality Reference (Units ) Status BUN 05/11/2024 07:17:00 37 Above high normal 6-20 (mg/dL) Final Creatinine 05/11/2024 07:17:00 1.9 Above high normal 0.6-1.2 (mg/dL) Final Glomerular filtration rate/1.73 sq M.predicted [Volume Rate/Area] in Serum, Plasma or Blood by Creatinine-based formula (CKD-EPI) 05/11/2024 07:17:00 35 Below low normal >=60 (mL/min) Final eGFR is calculated based on the CKD-EPI 2020 equation. Sodium 05/11/2024 07:17:00 139 135-146 (m mol/L) Final Potassium 05/11/2024 07:17:00 4.0 3.5-5.1 (m mol/L) Final Cl 05/11/2024 07:17:00 103 98-107 (mm ol/L) Final CO2 05/11/2024 07:17:00 21 Below low normal 22- 32 (mmol/L) Final Anion gap 05/11/2024 07:17:00 15 7-15 (mmol /L) Final Glucose 05/11/2024 07:17:00 130 Above high normal 70 -120 (mg/dL) Final Calcium 05/11/2024 07:17:00 8.5 8.4-10.2 ( mg/dL) Final Performing Location LABORATORY [facility] - [address] [place] [address]
--- OUTSIDE RECORDS SUMMARY | 2024-05-18 13:09 | External Medical Summary ---
Author Name Unknown Address Unknown Organization K01:[facility] [place] [address] [place] [address] Laboratory Report Ordering Provider Test Date Status LANEY NICHOLS 05/12/2024 06:09:00 Final Warfarin Therapy
INR: 2 .0-3.0 conventional anticoagulation
INR: 2.5- 3.5 high intensity anticoagulation Observation Date Value Abnormality Reference (Units ) Status PT 05/12/2024 06:09:00 15.0 11.6-15.2 (seconds) Final INR 05/12/2024 06:09:00 1.2 0.8-1.2 Final Performing Location [facility] [place] [address] [place] [address]
--- OUTSIDE RECORDS SUMMARY | 2024-05-18 13:09 | External Medical Summary | Summary of Care ---
Author Name Unknown Organization [facility] Address [address] [place] [address] Phone [phone] Care Team Providers Care Moccasin Sewer Name Role Phone Art Cavazos DO Primary Care Provider [phone] Reason for Visit * Reason Comments [facility] ICU to [facility] ER with ischemic stroke * Auth/Cert Specialty Diagnoses / Procedures Referred By Kulwinder t Referred To Contact [email or web address] [address] [place] [address] Referral ID Status Reason Start Date Expiration Date Visits Re quested Visits Authorized [id number] Encounter Details Date Type Department Care Team (Late st Contact Info) Description 05/09/2024 8:35 AM EST Documentation [email or web address] [address] [place] [address] 2, [email or web address] [address] [place], [place] [id number] Ischemic stroke without coma (HCC)* Allergies Active Allergy Reactions Criticality Noted Date Comments Amoxicillin Fever,Rash Medium 12/29/2013 documented as of this encounter (statuses as of 05/13/2024) Medications [employer] SYSTEM W/DEVICE KITIndications: DM type 2, goal [...] hemoglobin A1c goal of less than 7.0% ([facility]) Use to test sugars once daily 100 Each 3 2 Suspended Vitamin D-400 10 MCG (400 UNIT) Oral Tablet (cholecalcifero l (VIT D3))Indications :Vitamin D deficiency Take 2 Tablets by mouth daily. 120 Tablet 3 3 Suspended Sildenafil Citrate 20 MG Oral Tablet (Revatio)Indica tions:Type 2 diabetes mellitus with stage 2 chronic kidney disease, without long-term current use of insulin ([facility]) TAKE ONE TABLET BY MOUTH 1-4 HOURS BEFORE INTERCOURSE. NO MORE THAN 1 DOSE IN 24 HOURS. 30 Tablet 5 12/23/2023 11:30 AM EDT 3 05/12/20 24 OneTouch Ultra In Vitro Strip (Glucose Blood)Indicatio ns:Type 2 diabetes mellitus with stage 3a chronic kidney disease, without long-term current use of insulin ([facility]) TEST 1 TO 2 TIMES [...] as of this encounter Progress Notes * Nakul Neves EMT-P - 05/12/2024 9:00 PM EST MEDICARE AMBULANCE INFORMATION SHEET Patient Admitted as an Inpatient: yes Certifying Physician/Ordering Service:[facility] [place] ED Physician - Napoleon Gresham M.D. [place] [address] [address] [facility] [place] [address] Point of Electronic Equipment Installer (zip code required): [facility] - [address] [facility] [address]; [place] [address] Destination (Specify Name/Address): [facility] [address] [facility]; [place] [address] Patient transported to nearest facility (capable of mgmt for Pt's condition): YES Total number of Loaded Miles: 66.0 miles Mode of Transport: Air Completed by: RITCHIE Dalton NREMT-P, FP-C * Nakul Neves EMT-P - 05/12/2024 8:59 PM EST Documentation from incorrect encounter transferred to this encounter by myself. Nakul T. Kutza, DIRECTOR PRODUCT MANAGEMENT-P, FP-C documented in this encounter Plan of Treatment Upcoming Encounters Date Type Department Care Team (Late st Contact Info) Description 05/31/2024 11:00 AM EST Therapy Neuropsychology [facility] [place] [address] [facility] [place] [address] Enrique Kay, PhD [address] [facility] [place] [address] 06/16/2024 12:30 PM EST Telemedicine Neurosurgery, [place] [address] [place], [place] [phone] Crispin Nelson MD [address] [place], [place] [id number] 07/09/2024 3:00 PM EST [facility] [address] [place] [address] Jose Ramos MD [address] [place] [address] [facility] [address] [place] [address] 08/02/2024 1:00 PM EDT Office Visit Family Practice 65 [facility] 293 [place] [address] Art Cavazos DO 293 [place] [address] 10/15/2024 2:00 PM EDT Nurse Only Family Practice 65 [facility] 293 [place] [address] Sonali Echeverria, RITCHIE [address] [place] [address] 11/01/2024 2:20 PM EDT Office Visit Nephrology, [facility] [address] [place] [address] Baldo Mackey MD [address] [place], [place] [address] 12/03/2024 2:00 PM EDT Office Visit Rheumatology [facility] [address] [place] [address] Sarah Stroud CRNP [address] [place] [address] Scheduled Procedures Name Priority Associated Diagnoses Date/Ti [...] 05/09/2024, 10/2023, 11/19/2023, Additional history exists GFR 11/10/2024 05/12/2024, 04/25, 05/10/2024, Additional history exists Diabetic Foot Exam 03/31/2025 03/31/2024, 1 , 03/07/2022, Additional history exists CKD HGB USE SMARTSET 79322 05/12/202505/12, 05/11/2024, 05/11/2024, Additional history exists CKD PHOS USE SMARTSET 57379 05/12/202504/25, 05/11/2024, 05/10/2024, Additional history exists DTap/Tdap Vaccines (2 - [...] this encounter Medical Devices Implanted Type Area Tile Edger Device Identifier Shelf Expiration Date Model / Serial / Lot Stent 7x40 Precise [id number] - [id number] Implanted:Qty : 1 on 05/09/2024 by Crispin Nelson MD at OR [facility] [place] Left: Carotid CORDIS [employer] [id number] 01/23/2026 [id number] / / [id number] documented as of this encounter Visit Diagnoses Diagnosis Ischemic stroke without coma (HCC)- Primary documented in this encounter Advance Directives * No Code (Latest Code Status on File) Date Activated Date Inactivated Comments 05/09/2024 8:31 AM This order re flects the patients wishes and were consensually agreed upon. Question Answer Comments Discussion of Advance Direct kade occurred with: Power of Library Director/Patient Nonprofit Manager Does the patient have a Living Will? Yes, in sherrell rt and reviewed as current Does the patient have Health Care Power of Library Director? Yes, in chart and reviewed as current [...] Advance Direct kade occurred with: Power of Library Director/Patient Nonprofit Manager Does the patient have Health Care Power of Library Director? Yes, in chart and reviewed as current Intubation? No Cardiac Compressions? No Defibrillation? No Synchronized Cardioversion? No External Pacemaker? No Cardiac Drugs? No Care Teams Moccasin Sewer Relationship Specialty Start Date End Date Art Cavazos DO [address] [place] [address] PCP - General Internal Medicine 11/19/23 documented as of this encounter
--- OUTSIDE RECORDS SUMMARY | 2024-05-18 13:09 | External Medical Summary ---
Author Name Unknown Address Unknown Organization K01:[place] [facility] [address] [place] [address] Laboratory Report Ordering Provider Test Date Status JOANN SIMEON 05/12/2024 06:09:00 Final Observation Date Value Abnormality Reference (Units ) Status BUN 05/12/2024 06:09:00 31 Above high normal 6-20 (mg/dL) Final Creatinine 05/12/2024 06:09:00 1.5 Above high normal 0.6-1.2 (mg/dL) Final Glomerular filtration rate/1.73 sq M.predicted [Volume Rate/Area] in Serum, Plasma or Blood by Creatinine-based formula (CKD-EPI) 05/12/2024 06:09:00 48 Below low normal >=60 (mL/min) Final eGFR is calculated based on the CKD-EPI 2020 equation. Sodium 05/12/2024 06:09:00 138 135-146 (m mol/L) Final Potassium 05/12/2024 06:09:00 3.8 3.5-5.1 (m mol/L) Final Cl 05/12/2024 06:09:00 103 98-107 (mm ol/L) Final CO2 05/12/2024 06:09:00 22 22-32 (mmo l/L) Final Anion gap 05/12/2024 06:09:00 13 7-15 (mmol /L) Final Glucose 05/12/2024 06:09:00 156 Above high normal 70 -120 (mg/dL) Final Calcium 05/12/2024 06:09:00 8.9 8.4-10.2 ( mg/dL) Final Performing Location [facility] [place] [address] [place] [address]
--- OUTSIDE RECORDS SUMMARY | 2024-05-18 13:09 | External Medical Summary ---
Author Name Unknown Address Unknown Organization K01:[place] [facility] [place] [address] [facility] [address] Laboratory Report Ordering Provider Test Date Status LANEY NICHOLS 05/12/2024 06:09:00 Final Observation Date Value Abnormality Reference (Units ) Status WBC, Total 05/12/2024 06:09:00 10.90 Above high normal 4.00-10.80 (K/uL) Final RBC 05/12/2024 06:09:00 4.94 4.50-5.25 (M/uL) Final Hemoglobin 05/12/2024 06:09:00 14.7 14.0-16.8 (g/dL) Final HCT 05/12/2024 06:09:00 44.6 40.0-48.4 (%) Final MCV 05/12/2024 06:09:00 90.3 82.0-99.5 (fL) Final MCH 05/12/2024 06:09:00 29.8 27.0-34.0 (pg) Final MCHC 05/12/2024 06:09:00 33.0 32.0-36.0 (g/dL) Final RDW 05/12/2024 06:09:00 14.5 11.5-15.5 (%) Final Platelets 05/12/2024 06:09:00 181 140-400 (K/uL) Final MPV 05/12/2024 06:09:00 9.9 6.6-11.1 (fL) Final Nucleated erythrocytes/100 leukocytes [Ratio] in Blood by Automated count 05/12/2024 06:09:00 0 <=0 (/100 WBCs) Final Performing Location [place] [facility] [place] [address] [place] [address]
--- OUTSIDE RECORDS SUMMARY | 2024-05-18 13:09 | External Medical Summary | Summary of Care ---
Author Name Unknown Organization [facility] Address [address] [place] [address] Phone [phone] Care Team Providers Care Hydroelectric Plant Technician Name Role Phone Art Cavazos DO Primary Care Provider [phone] Reason for Visit * Reason Comments [facility] ICU to [facility] ER with ischemic stroke * Auth/Cert Specialty Diagnoses / Procedures Referred By Kulwinder t [facility] [address] [place] [address] Referral ID Status Reason Start Date Expiration Date Visits Re quested Visits Authorized [id number] Encounter Details Date Type Department Care Team (Late st Contact Info) Description 05/09/2024 8:35 AM EST Documentation [facility] [address] [place] [address] 2, [facility] [address] [place], [place] [id number] Ischemic stroke without coma (HCC)* Allergies Active Allergy Reactions Criticality Noted Date Comments Amoxicillin Fever,Rash Medium 12/29/2013 documented as of this encounter (statuses as of 05/12/2024) Medications SquareHook SYSTEM W/DEVICE KITIndications: DM type 2, goal [...] A1c goal of less than 7.0% ([facility]) Use to test sugars [...] without long-term current use of insulin ([facility]) TAKE ONE TABLET BY MOUTH 1-4 HOURS BEFORE INTERCOURSE. NO MORE THAN 1 DOSE IN 24 HOURS. 30 Tablet 5 12/23/2023 11:30 AM EDT 3 05/12/20 24 Suspended OneTouch Ultra In Vitro Strip (Glucose Blood)Indicatio ns:Type 2 diabetes mellitus with stage 3a chronic kidney disease, without long-term current use of insulin ([facility]) TEST 1 TO 2 [...] as of this encounter (statuses as of 05/12/2024) Active Problems Problem Noted Date Diagnosed Date [...] as of this encounter (statuses as of 05/12/2024) Resolved Problems Problem Noted Date Diagnosed Date [...] as of this encounter (statuses as of 05/12/2024) Immunizations Name Administration Dates Next Due COVID-19 [...] Admitted as an Inpatient: yes Certifying Physician/Ordering Service[place] [place] - Napoleon Gresham M.D. [place] [address] [address] [facility] [place] [address] Point of Sand Control Worker (zip code required): [facility] - [address] [address]; [place] [address] Destination (Specify Name/Address): [facility] [address] [facility]; [place] [address] Patient transported to nearest facility (capable of mgmt for Pt's condition): YES Total number of Loaded Miles: 66.0 miles Mode of Transport: Air Completed by: RITCHIE Dalton NREMT-P, FP-C * Nakul Neves EMT-P - 05/12/2024 8:59 PM EST Documentation from incorrect encounter transferred to this encounter by myself. Nakul T. Kutza, SHAKE SPLITTER-P, FP-C documented in this encounter Plan of Treatment Upcoming Encounters Date Type Department Care Team (Late st Contact Info) Description 05/31/2024 11:00 AM EST Therapy Neuropsychology [facility] [place] [address] [facility] [place] [address] Enrique Kay, PhD [address] [facility] [place] [address] 06/16/2024 12:30 PM EST Telemedicine Neurosurgery, [place] [address] [place], [place] [phone] Crispin Nelson MD [address], [place] [phone] 07/09/2024 3:00 PM EST Telemedicine [facility] [address] [place] [address] PulakaJose ramirez MD [address] [place] [address] [facility] [address] [place] [address] 08/02/2024 1:00 PM EDT Office Visit Family Practice [facility] [address] [place] [address] Art Cavazos DO 293 [place] [address] 10/15/2024 2:00 PM EDT Nurse Only Family Practice [facility] [address] [place] [address] Sonali Echeverria, RITCHIE [address] [place] [phone] 11/01/2024 2:20 PM EDT Office Visit Nephrology, [facility] [address] [place] [address] Baldo Mackey MD [address] [place], [place] [address] 12/03/2024 2:00 PM EDT Office Visit Rheumatology [facility] [address] [place] [address] Sarah Stroud CRNP [address] [place], [place] [address] Scheduled Procedures Name Priority Associated Diagnoses Date/Ti [...] Additional history exists CKD HGB USE SMARTSET 50237 05/12/202505/12, 05/11/2024, 05/11/2024, Additional history exists CKD PHOS USE SMARTSET 25811 05/12/202504/25, 05/11/2024, 05/10/2024, Additional history exists DTap/Tdap [...] this encounter Medical Devices Implanted Type Area Turbo Operator Device Identifier Shelf Expiration Date Model / Serial / Lot Stent 7x40 Precise [id number] - [id number] Implanted:Qty : 1 on 05/09/2024 by Crispin Nelson MD at [facility] Left: Carotid CORDIS [employer] PHIL [id number] 01/23/2026 [id number] / / [id number] documented as of this encounter Visit Diagnoses Diagnosis Ischemic stroke without coma (HCC)- Primary documented in this encounter Advance Directives * No Code (Latest Code Status on File) Date Activated Date Inactivated Comments 05/09/2024 8:31 AM This order re flects the patients wishes and were consensually agreed upon. Question Answer Comments Discussion of Advance Direct kade occurred with: Power of Drain Cleaner Plumber/Patient Surg Tech Does the patient have a Living Will? Yes, in sherrell rt and reviewed as current Does the patient have Health Care Power of Drain Cleaner Plumber? Yes, in chart and reviewed as current [...] Advance Direct kade occurred with: Power of Drain Cleaner Plumber/Patient Surg Tech Does the patient have Health Care Power of Drain Cleaner Plumber? Yes, in chart and reviewed as current Intubation? No Cardiac Compressions? No Defibrillation? No Synchronized Cardioversion? No External Pacemaker? No Cardiac Drugs? No Care Teams Hydroelectric Plant Technician Relationship Specialty Start Date End Date Art Cavazos DO [address] [place] [address] PCP - General Internal Medicine 11/19/23 documented as of this encounter
--- OUTSIDE RECORDS SUMMARY | 2024-05-18 13:09 | External Medical Summary ---
Author Name Unknown Address Unknown Organization : Laboratory Report Ordering Provider Test Date Status SHY LEA 05/11/2024 10:02:56 Final Observation Date Value Abnormality Reference (Units ) Status Glucose Point of Care 05/11/2024 10:02:56 185 Above high normal 70-120 (mg/dL) Final Performing Location
--- OUTSIDE RECORDS SUMMARY | 2024-05-18 13:09 | External Medical Summary ---
Author Name Unknown Address Unknown Organization [id number]:[place] [place] [address] [facility] [address] Laboratory Report Ordering Provider Test Date Status NEY RODRÍGUEZ 05/11/2024 14:59:00 Final If R time > 20 minutes and n o clot formed suggesting hypocoagulable state or interfering substance (anticoagulation). Consider resubmitting a new sample and/or checking PT/INR, aPTT, fibrinogen, and platelet count. Observation Date Value Abnormality Reference (Units ) Status Clot formation [Time] in Blood by Thromboelastography 05/11/2024 14:59:00 4.9 2.5-8.3 (minutes) Final Clot strength in Blood by Thromboelastography 05/11/2024 14:59:00 1.2 0.5-3.7 (minutes) Final Clot angle in Blood by Thromboelastography 05/11/2024 14:59:00 72.2 46.8-78.4 (degrees) Final Maximum clot firmness [Length] in Blood by Thromboelastography 05/11/2024 14:59:00 68.9 50.6-72.5 (mm) Final Coagulation index in Blood b y Thromboelastography 05/11/2024 14:59:00 2.4 -3.0-3.0 Final Clot Lysis [Length fraction] in Blood by Thromboelastography --30 minutes post maximum clot amplitude 05/11/2024 14:59:00 0.8 0.0-7.5 (%) Final This is an appended report. These results have been appended to a previously preliminary verified report. Performing Location [place] [facility] [place] [address] [place] [address]
--- OUTSIDE RECORDS SUMMARY | 2024-05-18 13:09 | External Medical Summary ---
Author Name Unknown Address Unknown Organization K01:LABORATORY C - [address] [place] [address] Laboratory Report Ordering Provider Test Date Status CHARO ALVAREZ 05/11/2024 07:17:00 Final Observation Date Value Abnormality Reference (Units ) Status Magnesium 05/11/2024 07:17:00 2.4 1.5-2.6 (m g/dL) Final Performing Location [facility] - [address] [place] [address]
--- OUTSIDE RECORDS SUMMARY | 2024-05-18 13:09 | External Medical Summary ---
Author Name Unknown Address Unknown Organization : Laboratory Report Ordering Provider Test Date Status SHY LEA 05/11/2024 12:10:18 Final Observation Date Value Abnormality Reference (Units ) Status Glucose Point of Care 05/11/2024 12:10:18 207 Above high normal 70-120 (mg/dL) Final Performing Location
--- OUTSIDE RECORDS SUMMARY | 2024-05-18 13:10 | External Medical Summary | Summary of Care ---
Author Name Unknown Organization [facility] Address [address] [place] [address] Phone [phone] Care Team Providers Care Casing In Line Feeder Name Role Phone Dirk Art Mazariegos DO Primary Care Provider [phone] Encounter Details Date Type Department Care Team (Late st Contact Info) Description 05/10/2024 Population Health External Data Unspecified Department Allergies Active Allergy Reactions Criticality Noted Date Comments Amoxicillin Fever,Rash Medium 12/29/2013 documented as of this encounter (statuses as of 05/10/2024) Medications ONETOUCH ULTRA SYSTEM W/DEVICE KITIndications: DM [...] long-term current use of insulin ([facility]) TEST 1 TO 2 TIMES [...] long-term current use of insulin ([facility]) Take 1 Tablet by mouth in the morning. 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 Dyslipidemia, [...] as of this encounter (statuses as of 05/10/2024) Resolved Problems Problem Noted Date Diagnosed Date [...] as of this encounter (statuses as of 05/10/2024) Immunizations Name Administration Dates Next Due COVID-19 mRNA, LNP-s, No Pre serve, 2-Dose Series (Moderna) 08/02/2020,07/05/2020 COVID-19, MRNA-LNP, PF, 30 M CG/0.3 mL, 12 YRS AND ABOVE, IM ([facility]) 03/31/2024,03/21/2023 COVID-19, mRNA, LNP-s, PF, B ooster, [...] Description 05/31/2024 11:00 AM EST Therapy Neuropsychology [facility] [address] [place] [address] Enrique Kay, PhD [address] [facility] [place], [place] [phone] 08/02/2024 1:00 PM EDT Office Visit Family [address] [place] [phone] Art Cavazos, [address] [place] [address] 10/15/2024 2:00 PM EDT Nurse Only [facility] [address] [place] [address] 293 [facility] [place] [address] Sonali Echeverria, RITCHIE [address] [place] [address] 11/01/2024 2:20 PM EDT Office Visit Nephrology, [facility] [address] [place], [place] [address] Blado Mackey MD [address] [facility] [place], [place] [address] 12/03/2024 2:00 PM EDT Office Visit Rheumatology [address] [place], [place] [address] Sarah Stroud CRNP [facility] [employer] [facility] [place], [place] [id number] Scheduled Procedures Name Priority Associated Diagnoses Date/Ti [...] exists Depression Screening 10/09/2024 10/10/2023, 10/10/19 24 GFR 11/07/2024 05/09/2024, 110 10/2023, 10/24/2023, Additional history exists HbA1c 11/07/2024 05/09/2024, 11/0 10/2023, 11/19/2023, Additional history exists Diabetic Foot Exam 03/31/2025 03/31/2024, 1 , 03/07/2022, Additional history exists CKD HGB USE SMARTSET 90585 05/10/202505/10, 05/09/2024, 05/09/2024, Additional history exists CKD PHOS USE SMARTSET 31055 05/10/202504/25, 03/31/2024, 03/21/2023, Additional history exists DTap/Tdap Vaccines (2 - [...] this encounter Medical Devices Implanted Type Area Cocoa Milling Machine Operator Device Identifier Shelf Expiration Date Model / Serial / Lot Stent 7x40 Precise [id number] - [id number] Implanted:Qty : 1 on 05/09/2024 by Crispin Nelson MD [place] [facility] Left: Carotid CORDIS [employer] PHIL [id number] 01/23/2026 [id number] / / [id number] documented as of this encounter Advance Directives * No Code (Latest Code Status on File) Date Activated Date Inactivated Comments 05/09/2024 8:31 AM This order re flects the patients wishes and were consensually agreed upon. Question Answer Comments Discussion of Advance Direct kade occurred with: Power of Anesthesiology Physician/Patient Manager International Does the patient have a Living Will? Yes, in sherrell rt and reviewed as current Does the patient have Health Care Power of Anesthesiology Physician? Yes, in chart and reviewed as current [...] Advance Direct kade occurred with: Power of Anesthesiology Physician/Patient Manager International Does the patient have Health Care Power of Anesthesiology Physician? Yes, in chart and reviewed as current Intubation? No Cardiac Compressions? No Defibrillation? No Synchronized Cardioversion? No External Pacemaker? No Cardiac Drugs? No Care Teams Casing In Line Feeder Relationship Specialty Start Date End Date Art Cavazos DO [address] [place] [address] PCP - General Internal Medicine 11/19/23 documented as of this encounter
--- OUTSIDE RECORDS SUMMARY | 2024-05-18 13:10 | External Medical Summary | Summary of Care ---
Author Name Unknown Organization [facility] Address [address] [place] [address] Phone [phone] Care Team Providers Care Slurry Control Tender Name Role Phone Kashifnadine Art Mazariegos DO Primary Care Provider [phone] Encounter Details Date Type Department Care Team (Late st Contact Info) Description 05/09/2024 Documentation [facility] [address] [place] [address] 2, [facility] [address] [place], [place] [phone] Allergies Active Allergy Reactions Criticality Noted Date Comments Amoxicillin Fever,Rash Medium 12/29/2013 documented as of this encounter (statuses as of 05/09/2024) Medications Nymirum SYSTEM W/DEVICE KITIndications: DM type 2, goal [...] hemoglobin A1c goal of less than 7.0% ([facility]) Use to test sugars once daily 100 Each 3 2 Suspended Vitamin D-400 10 MCG (400 UNIT) Oral Tablet (cholecalcifero l (VIT D3))Indications :Vitamin D deficiency Take 2 Tablets by mouth daily. 120 Tablet 3 3 Suspended OneTouch Ultra In Vitro Strip (Glucose Blood)Indicatio ns:Type 2 diabetes mellitus with stage 3a chronic kidney disease, without long-term current use of insulin ([facility]) TEST 1 TO 2 TIMES DAILY. [...] disease, without long-term current use of insulin ([facility]) Take 1 Tablet by mouth in the morning. 90 Tablet 3 4 Suspended documented as of this encounter (statuses as of 05/09/2024) Active Problems Problem Noted Date Diagnosed Date [...] as of this encounter (statuses as of 05/09/2024) Resolved Problems Problem Noted Date Diagnosed Date [...] as of this encounter (statuses as of 05/09/2024) Immunizations Name Administration Dates Next Due COVID-19 [...] 11:00 AM EST Therapy Neuropsychology [address] [place] 200 [facility] [place] [address] Enrique Kay, PhD 200 [facility] [place] [address] 08/02/2024 1:00 PM EDT Office Visit Family Practice [address] [place] [address] 293 [place] [phone] Art Cavazos DO 293 [place] [address] 10/15/2024 2:00 PM EDT Nurse Only Family Practice [address] [place] [address] 293 [facility] [place] [phone] Sonali Echeverria, RITCHIE 293 [place] [phone] 11/01/2024 2:20 PM EDT Office Visit Nephrology, [facility] [address] [facility] [place] [address] Baldo Mackey MD 200 [facility] [place], [place] [address] 12/03/2024 2:00 PM EDT Office Visit Rheumatology [place] [address] [employer] [place], [place] [address] Sarah Stroud CRNP [facility] [employer] [place], [place] [address] Scheduled Procedures Name Priority Associated Diagnoses Date/Ti me PERCUTANEOUS ARTERIAL TRANSL UMINAL MECHANICAL THROMBECTOMY AND/OR INFUSION OF THROMBOLYSIS,INTRACRANIAL,& METHOD INCLUDING DIAGNOSTIC ANGIO Stroke with cerebral ischemia (HCC) 05/09/2024 8:11 AM EST CATHETER PLACEMENT INTERNAL CAROTID ARTERY Stroke with cerebral ischemia (HCC) 05/09/2024 8:11 AM EST CATHETER PLACEMENT VERTEBRAL ARTERY, Stroke with cerebral ischemia (HCC) 05/09/2024 8:11 AM EST CATHETER PLACEMENT EXTERNAL CAROTID ARTERY Stroke with cerebral ischemia (HCC) 05/09/2024 8:11 AM EST 3D RENDERING W/CT, MRI, US, OR OTHER TOMOGRAPHY Stroke with cerebral ischemia (HCC) 05/09/2024 8:[address] - HEAD/BRAIN W/O CONTRAST Stroke with cerebral ischemia (HCC) 05/09/2024 8:11 AM EST ESOPHAGOGASTRODUODENOSCOPY ( EGD), FLEXIBLE, TRANSORAL, DIAGNOSTIC Recall [...] 10/09/2024 10/10/2023, 10/10/19 24 GFR 11/07/2024 05/09/2024, 1110/2023, 10/24/2023, Additional history exists HbA1c 11/07/2024 05/09/2024, 1110/2023, 11/19/2023, Additional history exists CKD PHOS USE SMARTSET 17828 03/31/2025 110 10/2023, 03/21/2023, 12/20/2021, Additional history exists Diabetic Foot Exam 03/31/2025 03/31/2024, 1 , 03/07/2022, Additional history exists CKD HGB USE SMARTSET 96764 05/09/202505/09, 05/09/2024, 05/09/2024, Additional history exists DTap/Tdap Vaccines (2 - [...] this encounter Medical Devices Implanted Type Area Adjunct Physics Instructor Device Identifier Shelf Expiration Date Model / Serial / Lot Stent 7x40 Precise [id number] - [id number] Implanted:Qty : 1 on 05/09/2024 [place] [facility] [place]: Carotid CORDIS PHIL [id number] 01/23/2026 [id number] / / [id number] documented as of this encounter Advance Directives * No Code (Latest Code Status on File) Date Activated Date Inactivated Comments 05/09/2024 8:31 AM This order re flects the patients wishes and were consensually agreed upon. Question Answer Comments Discussion of Advance Direct kade occurred with: Power of Dry Wall Nailer/Patient Internet Merchant Does the patient have a Living Will? Yes, in sherrell rt and reviewed as current Does the patient have Health Care Power of Dry Wall Nailer? Yes, in chart and reviewed as current [...] Advance Direct kade occurred with: Power of Dry Wall Nailer/Patient Internet Merchant Does the patient have Health Care Power of Dry Wall Nailer? Yes, in chart and reviewed as current Intubation? No Cardiac Compressions? No Defibrillation? No Synchronized Cardioversion? No External Pacemaker? No Cardiac Drugs? No Care Teams Slurry Control Tender Relationship Specialty Start Date End Date Art Cavazos DO [address] [place] [address] PCP - General Internal Medicine 11/19/23 documented as of this encounter
--- OUTSIDE RECORDS SUMMARY | 2024-05-18 13:10 | External Medical Summary ---
Author Name Unknown Address Unknown Organization K01:LABORATORY C - [address] [place] [address] [place] [address] Laboratory Report Ordering Provider Test Date Status CHARO ALVAREZ 05/10/2024 03:35:00 Final Observation Date Value Abnormality Reference (Units ) Status Magnesium 05/10/2024 03:35:00 2.4 1.5-2.6 (m g/dL) Final Performing Location [facility] [address] [facility] [address]
--- OUTSIDE RECORDS SUMMARY | 2024-05-18 13:10 | External Medical Summary ---
Author Name Unknown Address Unknown Organization K01:[place] [place] [facility] [address] [facility] [address] [facility] [address] Laboratory Report Ordering Provider Test Date Status LANEY NICHOLS 05/10/2024 03:35:00 Final Observation Date Value Abnormality Reference (Units ) Status WBC, Total 05/10/2024 03:35:00 12.48 Above high normal 4.00-10.80 (K/uL) Final RBC 05/10/2024 03:35:00 4.77 4.50-5.25 (M/uL) Final Hemoglobin 05/10/2024 03:35:00 14.7 14.0-16.8 (g/dL) Final HCT 05/10/2024 03:35:00 43.0 40.0-48.4 (%) Final MCV 05/10/2024 03:35:00 90.1 82.0-99.5 (fL) Final MCH 05/10/2024 03:35:00 30.8 27.0-34.0 (pg) Final MCHC 05/10/2024 03:35:00 34.2 32.0-36.0 (g/dL) Final RDW 05/10/2024 03:35:00 14.5 11.5-15.5 (%) Final Platelets 05/10/2024 03:35:00 181 140-400 (K/uL) Final MPV 05/10/2024 03:35:00 9.9 6.6-11.1 (fL) Final Nucleated erythrocytes/100 leukocytes [Ratio] in Blood by Automated count 05/10/2024 03:35:00 0 <=0 (/100 WBCs) Final Performing Location [facility] [place] [address] [facility] [place] [address]
--- OUTSIDE RECORDS SUMMARY | 2024-05-18 13:10 | External Medical Summary ---
Author Name Unknown Address Unknown Organization K01:[facility] [place] [address] [place] [address] Laboratory Report Ordering Provider Test Date Status LANEY NICHOLS 05/10/2024 03:35:00 Final Warfarin Therapy
INR: 2 .0-3.0 conventional anticoagulation
INR: 2.5- 3.5 high intensity anticoagulation Observation Date Value Abnormality Reference (Units ) Status PT 05/10/2024 03:35:00 15.5 Above high normal 11 .6-15.2 (seconds) Final INR 05/10/2024 03:35:00 1.2 0.8-1.2 Final Performing Location [facility] [place] [address] [place] [address]
--- OUTSIDE RECORDS SUMMARY | 2024-05-18 13:10 | External Medical Summary ---
Author Name Unknown Address Unknown Organization K01[place] [facility] [place] [address] [facility] [address] Laboratory Report Ordering Provider Test Date Status LANEY NICHOLS 05/09/2024 07:54:00 Final Observation Date Value Abnormality Reference (Units ) Status Triglyceride 05/09/2024 07:54:00 107 <=174 ( mg/dL) Final Triglyceride Reference Range s (mg/dL):
<150 Acceptable
150-174 Borderline high
175-499 High
>=500 Very high Cholesterol 05/09/2024 07:54:00 196 <200 (mg /dL) Final Total Cholesterol Reference Ranges (mg/dL):
<200 Desirable
200-239 Borderline high
>=240 High HDL 05/09/2024 07:54:00 51 >39 (mg/dL ) Final HDL Cholesterol Reference Ra nges (mg/dL):
>=60 High (Desirable)
<50 Low (Undesirable) For Females
<40 Low (Undesirable) For Males NON-HDL CHOLESTEROL 05/09/2024 07:54:00 145 <=159 (mg/dL) Final Non-HDL Cholesterol Referenc e Range (mg/dL):
<100 Target level for high risk ASCVD patient
<130 Optimal for general population
130-159 Near optimal for general population
160-189 Borderline High
190-219 High
>=220 Very High LDL, (calculated) 05/09/2024 07:54:00 124 <= 129 (mg/dL) Final LDL Cholesterol Reference Ra nges (mg/dL):
<70 Target level for high risk ASCVD patient
<100 Optimal for general population
100-129 Near optimal for general population
130-159 Borderline high
160-189 High
>=190 Very high Performing Location [place] [facility] [place] [address] [facility] [address]
--- OUTSIDE RECORDS SUMMARY | 2024-05-18 13:10 | External Medical Summary ---
Author Name Unknown Address Unknown Organization K01:LABORATORY [facility] [place] - [address] [facility] [address] Laboratory Report Ordering Provider Test Date Status LANEY NICHOLS 05/09/2024 07:54:00 Final Observation Date Value Abnormality Reference (Units ) Status HbA1C 05/09/2024 07:54:00 7.1 Above high normal 4. 0-5.6 (%) Final The use of HbA1c to monitor glycemic status is based on normal hemoglobin and HbA composition. This test should not be used in patients with abnormal hemoglobin that affects the half life of the red blood cell or the in vivo glycation rates. Glucose, estimated average 05/09/2024 07:54:00 157 Above high normal <126 (mg/dL) Jaswinder blankenship Performing Location LABORATORY [facility] [place] - [address] [facility] [address]
--- OUTSIDE RECORDS SUMMARY | 2024-05-18 13:10 | External Medical Summary ---
Author Name Unknown Address Unknown Organization [id number]:[place] [facility] [place] [address] [place] [address] Laboratory Report Ordering Provider Test Date Status LANEY NICHOLS 05/09/2024 10:27:00 Final Anticoagulation may affect t esting. Refer to [facility] Test Catalog for a list of effects. Observation Date Value Abnormality Reference (Units ) Status aPTT panel - Platelet poor plasma 05/09/2024 10:27:00 >200 Above upper panic limits 21-38 (seconds) Final Results rechecked. Performing Location [place] [facility] [place] [address] [place] [address]
--- OUTSIDE RECORDS SUMMARY | 2024-05-18 13:10 | External Medical Summary | Summary of Care ---
Author Name Unknown Organization [facility] Address [address] [place] [address] Phone [phone] Care Team Providers Care Staff Development Coordinator Name Role Phone Art Cavazos DO Primary Care Provider [phone] Reason for Visit * Auth/Cert Specialty Diagnoses / Procedures Referred By Kulwinder calderon Referred To Contact Diagnoses Stroke [facility] [address] [place] [address] Phone: tel:[phone] [facility]) Emergency Department ([facility]) [address] [place] [address] Phone: tel: fax: Referral ID Status Reason Start Date Expiration Date Visits Re quested Visits Authorized [id number] Encounter Details Date Type Department Care Team (Latest Contact Info) Description 05/09/2024 1:29 PM EST - 05/09/2024 11:59 PM EST Hospital Encounter Cardiac Studies [facility] [address] [place] [address] Discharge Disposition: Home - Self Care Allergies Active Allergy Reactions Criticality Noted Date Comments Amoxicillin Fever,Rash Medium 12/29/2013 documented as of this encounter (statuses as of 05/10/2024) Medications [employer] SYSTEM W/DEVICE KITIndications: DM type 2, goal [...] CG/0.3 mL, 12 YRS AND ABOVE, IM ([employer]) 03/31/2024,03/21/2023 COVID-19, mRNA, LNP-s, PF, [...] Description 05/31/2024 11:00 AM EST Therapy [facility] [address] [place] [address] Enrique Kay, PhD [address] [place] [address] 07/09/2024 3:00 PM EST Telemedicine Neurology [address] [place] [address] Jose Ramos MD [address] [place] [address] [facility] [address] [place] [address] 08/02/2024 1:00 PM EDT Office Visit Family Practice [address] [facility] [address] [place] [phone] Art Cavazos DO [address] [place] [address] 10/15/2024 2:00 PM EDT Nurse Only Family Practice [address] [facility] [address] [place] [address] Sonali Echeverria, RITCHIE [address] [place] [address] 11/01/2024 2:20 PM EDT Office Visit Nephrology, Quiana Lundberg [address] [place] [address] Baldo Mackey MD [address] [facility] [place], [place] [address] 12/03/2024 2:00 PM EDT Office Visit Rheumatology [facility] [address] [place] [address] Sarah Stroud CRNP [address] [address] [place], [place] [address] Scheduled Procedures Name Priority Associated Diagnoses Date/Ti [...] 05/09/2024, 10/2023, 11/19/2023, Additional history exists GFR 11/08/2024 05/10/2024, 04/25, 03/31/2024, Additional history exists Diabetic Foot Exam 03/31/2025 03/31/2024, 1 , 03/07/2022, Additional history exists CKD HGB USE SMARTSET 24432 05/10/202505/10, 05/10/2024, 05/09/2024, Additional history exists CKD PHOS USE SMARTSET 66266 05/10/202504/25, 03/31/2024, 03/21/2023, Additional history exists DTap/Tdap [...] this encounter Medical Devices Implanted Type Area Nutrition Specialist Device Identifier Shelf Expiration Date Model / Serial / Lot Stent 7x40 Precise [id number] - [id number] Implanted:Qty : 1 on 05/09/2024 by Crispin [place] MD at [facility] Left: Carotid [employer] PHIL [id number] 01/23/2026 [id number] / / [id number] documented as of this encounter Procedures Procedure Name Priority Date/Time Associated Diagnosis Comments ECHO, COMPLETE (2D), TRANS-THORACIC Routine 05/09/2024 1:38 PM EST Stroke (HCC) documented in this encounter Visit Diagnoses Diagnosis Dyslipidemia, goal LDL below 70- Primary Other and unspecified hyperlipidemia HTN, goal below 140/90 Unspecified essential hypertension documented in this encounter Administered Medications Inactive Administered Medications - up to 3 most recent administrations Medication Order MAR Action Action Date Dose Rate Site perflutren lipid microsphere inj SUSP 1.956 mg 1.956 mg, Intravenous, ONCE PRN Other, For Echo Only - Suboptimal Echo Images, Starting on 05/09/24 at 1333, Until 05/09/24 at 1532, For 2 hours, Administer IVP over 45 seconds, Cardiac Studies_HODHOVIndications:Dyslip idemia, goal LDL below 70,HTN, goal below 140/90 Given 05/09/2024 1:34 PM EST 1.956 mg documented in this encounter Advance Directives * No Code (Latest Code Status on File) Date Activated Date Inactivated Comments 05/09/2024 8:31 AM This order re flects the patients wishes and were consensually agreed upon. Question Answer Comments Discussion of Advance Direct kade occurred with: Power of Sales Management Trainee/Patient Chief Procurement Officer Does the patient have a Living Will? Yes, in sherrell rt and reviewed as current Does the patient have Health Care Power of Sales Management Trainee? Yes, in chart and reviewed as current [...] Advance Direct kade occurred with: Power of Sales Management Trainee/Patient Chief Procurement Officer Does the patient have Health Care Power of Sales Management Trainee? Yes, in chart and reviewed as current Intubation? No Cardiac Compressions? No Defibrillation? No Synchronized Cardioversion? No External Pacemaker? No Cardiac Drugs? No Care Teams Staff Development Coordinator Relationship Specialty Start Date End Date Art Cavazos DO [address] [place] [address] PCP - General Internal Medicine 11/19/23 documented as of this encounter
--- OUTSIDE RECORDS SUMMARY | 2024-05-18 13:10 | External Medical Summary ---
Author Name Unknown Address Unknown Organization K01:[place] [facility] [place] [address] [place] [address] Laboratory Report Ordering Provider Test Date Status LANEY NICHOLS 05/09/2024 18:47:00 Final Get Heparin, unfractionated (Xa) level 6 hours after start of infusion and 6 hours after each dose adjustment Observation Date Value Abnormality Reference (Units ) Status Heparin, unfractionated level 05/09/2024 18:47:00 0.33 Above high normal <0.10 (IU/mL) Final Unfractionated therapeutic r anges for Anti Xa activity:
For Cardiac/Neurologic treatment: 0.3 to 0.6 IU/mL.
For treatment of DVT or Pulmonary Embolism: 0.3 to 0.7 IU/mL. Performing Location [place] [facility] [place] [address] [place] [address]
--- OUTSIDE RECORDS SUMMARY | 2024-05-18 13:10 | External Medical Summary ---
Author Name Unknown Address Unknown Organization K01:LAB[facility]ORY [facility] [place] [address] [place] [address] Laboratory Report Ordering Provider Test Date Status LANEY NICHOLS 05/10/2024 01:14:00 Final Get Heparin, unfractionated (Xa) level 6 hours after start of infusion and 6 hours after each dose adjustment Observation Date Value Abnormality Reference (Units ) Status Heparin, unfractionated level 05/10/2024 01:14:00 0.24 Above high normal <0.10 (IU/mL) Final Unfractionated therapeutic r anges for Anti Xa activity:
For Cardiac/Neurologic treatment: 0.3 to 0.6 IU/mL.
For treatment of DVT or Pulmonary Embolism: 0.3 to 0.7 IU/mL. Performing Location LABORATORY [facility] [place] - [address] [place] [address]
--- OUTSIDE RECORDS SUMMARY | 2024-05-18 13:10 | External Medical Summary ---
Author Name Unknown Address Unknown Organization K01:LABORATORY [facility] [place] - [address] [place] [address] Laboratory Report Ordering Provider Test Date Status CHARO ALVAREZ 05/10/2024 03:35:00 Final Observation Date Value Abnormality Reference (Units ) Status Calcium.ionized [Moles/volume] in Serum or Plasma by Ion-selective membrane electrode (ISE) 05/10/2024 03:35:00 1.15 1.13-1.32 (mmol/L) Final This test was developed and its performance characteristics dtermined by [employer]. It has not been cleared or approved by the US Food and Drug Administration Performing Location LABORATORY [place] [address] [place] [address]
--- OUTSIDE RECORDS SUMMARY | 2024-05-18 13:10 | External Medical Summary ---
Author Name Unknown Address Unknown Organization K01:[place] [facility] [place] [facility] [address] [facility] [address] Laboratory Report Ordering Provider Test Date Status LANEY NICHOLS 05/09/2024 10:27:00 Final Observation Date Value Abnormality Reference (Units ) Status WBC, Total 05/09/2024 10:27:00 9.60 4.00-10.80 (K/uL) Final RBC 05/09/2024 10:27:00 5.25 4.50-5.25 (M/uL) Final Hemoglobin 05/09/2024 10:27:00 15.6 14.0-16.8 (g/dL) Final HCT 05/09/2024 10:27:00 48.1 40.0-48.4 (%) Final MCV 05/09/2024 10:27:00 91.6 82.0-99.5 (fL) Final MCH 05/09/2024 10:27:00 29.7 27.0-34.0 (pg) Final MCHC 05/09/2024 10:27:00 32.4 32.0-36.0 (g/dL) Final RDW 05/09/2024 10:27:00 14.6 11.5-15.5 (%) Final Platelets 05/09/2024 10:27:00 187 140-400 (K/uL) Final MPV 05/09/2024 10:27:00 9.6 6.6-11.1 (fL) Final Nucleated erythrocytes/100 leukocytes [Ratio] in Blood by Automated count 05/09/2024 10:27:00 0 <=0 (/100 WBCs) Final Performing Location [place] [facility] [place] [address] [facility] [address]
--- OUTSIDE RECORDS SUMMARY | 2024-05-18 13:10 | External Medical Summary ---
Author Name Unknown Address Unknown Organization K01:LABORATORY C - [address] [place] [address] Laboratory Report Ordering Provider Test Date Status CHARO ALVAREZ 05/10/2024 03:35:00 Final Observation Date Value Abnormality Reference (Units ) Status Phosphate 05/10/2024 03:35:00 4.0 2.5-4.8 (m g/dL) Final Performing Location LABORATORY [facility] - [address] [place] [address]
--- OUTSIDE RECORDS SUMMARY | 2024-05-18 13:10 | External Medical Summary ---
Author Name Unknown Address Unknown Organization : Laboratory Report Ordering Provider Test Date Status FLORECITA PAK 05/09/2024 09:17:47 Final NORMAL (NON-HEPARINIZED) 74- 137 SECONDS
HEPARINIZED 200+ SECONDS
CRITICAL GREATER THAN 1000 SECONDS
null Observation Date Value Abnormality Reference (Units ) Status Kaolin activated time [Units/volume] in Blood 05/09/2024 09:17:47 124 50-1000 (secs) Final Performing Location
--- OUTSIDE RECORDS SUMMARY | 2024-05-18 13:10 | External Medical Summary ---
Author Name Unknown Address Unknown Organization K01:[facility] [place] [address] [facility] [address] Laboratory Report Ordering Provider Test Date Status LAURIE WANG 05/10/2024 08:23:00 Final Observation Date Value Abnormality Reference (Units ) Status BUN 05/10/2024 08:23:00 31 Above high normal 6-20 (mg/dL) Final Creatinine 05/10/2024 08:23:00 2.0 Above high normal 0.6-1.2 (mg/dL) Final Glomerular filtration rate/1.73 sq M.predicted [Volume Rate/Area] in Serum, Plasma or Blood by Creatinine-based formula (CKD-EPI) 05/10/2024 08:23:00 33 Below low normal >=60 (mL/min) Final eGFR is calculated based on the CKD-EPI 2020 equation. Sodium 05/10/2024 08:23:00 135 135-146 (m mol/L) Final Potassium 05/10/2024 08:23:00 4.4 3.5-5.1 (m mol/L) Final Cl 05/10/2024 08:23:00 101 98-107 (mm ol/L) Final CO2 05/10/2024 08:23:00 21 Below low normal 22- 32 (mmol/L) Final Anion gap 05/10/2024 08:23:00 13 7-15 (mmol /L) Final Glucose 05/10/2024 08:23:00 184 Above high normal 70 -120 (mg/dL) Final Calcium 05/10/2024 08:23:00 8.3 Below low normal 8.4 -10.2 (mg/dL) Final Performing Location [facility] [place] [address] [place] [address]
--- OUTSIDE RECORDS SUMMARY | 2024-05-18 13:10 | External Medical Summary ---
Author Name Unknown Address Unknown Organization K01:LABORATORY [facility] [place] - [address] [place] [address] Laboratory Report Ordering Provider Test Date Status LANEY NICHOLS 05/09/2024 10:27:00 Final Observation Date Value Abnormality Reference (Units ) Status Heparin, unfractionated level 05/09/2024 10:27:00 >1.10 Above upper panic limits <0.10 (IU/mL) Final Results rechecked. Performing Location LABORATORY [facility] [place] - [address] [place] [address]
--- OUTSIDE RECORDS SUMMARY | 2024-05-18 13:10 | External Medical Summary ---
Author Name Unknown Address Unknown Organization K01:[place] [facility] [place] [address] [place] [address] Laboratory Report Ordering Provider Test Date Status LANEY NICHOLS 05/09/2024 10:27:00 Final Warfarin Therapy
INR: 2 .0-3.0 conventional anticoagulation
INR: 2.5- 3.5 high intensity anticoagulation Observation Date Value Abnormality Reference (Units ) Status PT 05/09/2024 10:27:00 16.1 Above high normal 11 .6-15.2 (seconds) Final INR 05/09/2024 10:27:00 1.3 Above high normal 0. 8-1.2 Final Performing Location LAB[facility] [place] [address] [place] [address]
--- OUTSIDE RECORDS SUMMARY | 2024-05-18 13:10 | External Medical Summary ---
Author Name Unknown Address Unknown Organization K01:[place] [facility] [place] - [address] [address] Laboratory Report Ordering Provider Test Date Status CHARO ALVAREZ 05/09/2024 21:21:00 Final Observation Date Value Abnormality Reference (Units ) Status Body temperature 05/09/2024 21:21:00 37.0 (C) Final pH of Venous blood 05/09/2024 21:21:00 7.401 7.320-7.430 (units) Final Carbon dioxide [Partial pressure] in Venous blood 05/09/2024 21:21:00 36.6 Below low normal 40.0-60.0 (mmHg) Final Oxygen [Partial pressure] in Venous blood 05/09/2024 21:21:00 86.3 Above high normal 25.0-50.0 (mmHg) Final Base excess, Capillary 05/09/2024 21:21:00 -1.5 -2.0-2.0 (mmol/L) Final Hemoglobin [Mass/volume] in Blood by Oximetry 05/09/2024 21:21:00 16.1 14.0-16.8 (g/dL) Final Oxyhemoglobin, Venous (FO2HB) 05/09/2024 21:21:00 95.2 Above high normal 40.0-85.0 (% total Hgb) Final Carboxyhemoglobin 05/09/2024 21:21:00 1.4 <=1.5 (% total Hgb) Final Smokers: 0-9.0 % Methemoglobin 05/09/2024 21:21:00 0.7 <= 1.5 (% total Hgb) Final Deoxyhemoglobin/Hemoglo bin.total in Venous blood 05/09/2024 21:21:00 2.7 (% total Hgb) Final Oxygen content in Venous blood 05/09/2024 21:21:00 21.6 Above high normal 7.0-18.0 (%vol) Final Potassium, Whole Blood 05/09/2024 21:21:00 4.4 3.5-5.1 (mmol/L) Final Sodium, Whole Blood 05/09/2024 21:21:00 137 135-146 (mmol/L) Final Chloride, Whole Blood 05/09/2024 21:21:00 104 98-107 (mmol/L) Final Calcium.ionized [Moles/volume] in Blood by Ion-selective membrane electrode (ISE) 05/09/2024 21:21:00 1.16 1.13-1.32 (mmol/L) Final Anion gap, Whole Blood 05/09/2024 21:21:00 10.3 7.0-15.0 (mmol/L) Final Glucose, whole blood 05/09/2024 21:21:00 188 Above high normal 70-120 (mg/dL) Final Bicarbonate, Venous, POC (i-STAT) 05/09/2024 21:21:00 22.3 Below low normal 23.0-31.0 (mmol/L) Final Performing Location LAB[place]ORY [facility] [place] - [address] [facility] [address]
--- OUTSIDE RECORDS SUMMARY | 2024-05-18 13:10 | External Medical Summary ---
Author Name Unknown Address Unknown Organization K01:[place]ORY [facility] [place] [address] [place] [address] Laboratory Report Ordering Provider Test Date Status LANEY NICHOLS 05/10/2024 06:58:00 Final Get Heparin, unfractionated (Xa) level 6 hours after start of infusion and 6 hours after each dose adjustment Observation Date Value Abnormality Reference (Units ) Status Heparin, unfractionated level 05/10/2024 06:58:00 0.18 Above high normal <0.10 (IU/mL) Final Unfractionated therapeutic r anges for Anti Xa activity:
For Cardiac/Neurologic treatment: 0.3 to 0.6 IU/mL.
For treatment of DVT or Pulmonary Embolism: 0.3 to 0.7 IU/mL. Performing Location LABORATORY [facility] [place] [address] [place] [address]
--- OUTSIDE RECORDS SUMMARY | 2024-05-18 13:10 | External Medical Summary | Summary of Care ---
Author Name Unknown Organization [facility] Address [address] [place] [address] Phone [phone] Care Team Providers Care Plating Operator Name Role Phone Art Cavazos Yair PEARSON Primary Care Provider [phone] Reason for Visit * Reason Onset Date Comments Test Results 05/10/2024 Unexpected or In determinate Result Encounter Details Date Type Department Care Team (Late st Contact Info) Description 05/10/2024 Telephone Laboratory, [place] [address] [place] [address] Fred Medrano PA-C [address] [place] [address] Test Results (Unexpected or Indeterminate ... Allergies Active Allergy Reactions Criticality Noted Date Comments Amoxicillin Fever,Rash Medium 12/29/2013 documented as of this encounter (statuses as of 05/10/2024) Medications Likeability SYSTEM W/DEVICE KITIndications: DM type 2, goal [...] without long-term current use of insulin 10/16/2020 Anderosn's esophagus without dysplasia 10/16/2020 Gastroesophageal reflux disease [...] CG/0.3 mL, 12 YRS AND ABOVE, IM ([employer]) 03/31/2024,03/21/2023 COVID-19, mRNA, LNP-s, PF, B ooster, [...] encounter Miscellaneous Notes * Telephone Encounter - Lety Holland OSA - 05/10/2024 3:35 AM EST Hello- The radiologist discovered an unexpected or indeterminate finding on Mg Little . ([id number]) and asks that you review the following report. Study Type: CT HEAD/BRAIN WO CONTRAST Date of Study: 05/09/[address] HEAD/BRAIN WO CONTRAST: Artifact degraded exam. 1. No acute hemorrhage. 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 No hemorrhage. Recommend further evaluation with non-contrast MRI of the brain. Please respond to this encounter to acknowledge receipt of this message and take responsibility to ensure this report is reviewed. Thank you, STANISLAV Reyna Client Service Rep [facility] documented in this encounter Plan of Treatment Upcoming Encounters Date Type Department Care Team (Late st Contact Info) Description 05/31/2024 11:00 AM EST Therapy Neuropsychology [facility] [address] [place] [address] Enrique Kay, PhD [address] [place] [address] 08/02/2024 1:00 PM EDT Office Visit Family Practice [address] [place] [address] [address] [place] [address] Art Cavazos DO [address] [facility], [place] [address] 10/15/2024 2:00 PM EDT Nurse Only Family Practice [address] [facility] [address] [place] [address] Sonali Echeverria RN [address] [facility] [address] 11/01/2024 2:20 PM EDT Office Visit Nephrology, Quiana Lundberg [address] [place] [address] Baldo Mackey MD [address] [place] [address] 12/03/2024 2:00 PM EDT Office Visit Rheumatology [facility] [address] [place] [address] Sarah Stroud CRNP [address] [place] [address] Scheduled Procedures Name Priority Associated Diagnoses Date/Ti [...] 10/09/2024 10/10/2023, 10/10/19 24 GFR 11/07/2024 05/09/2024, 10/2023, 10/24/2023, Additional history exists HbA1c 11/07/2024 05/09/2024, 10/2023, 11/19/2023, Additional history exists CKD PHOS USE SMARTSET 96150 03/31/202510/2023, 03/21/2023, 12/20/2021, Additional history exists Diabetic Foot Exam 03/31/2025 03/31/2024, 1 , 03/07/2022, Additional history exists CKD HGB USE SMARTSET 97772 05/09/202505/09, 05/09/2024, 05/09/2024, Additional history exists DTap/Tdap [...] this encounter Medical Devices Implanted Type Area Medical Orderly Device Identifier Shelf Expiration Date Model / Serial / Lot Stent 7x40 Precise [id number] - [id number] Implanted:Qty : 1 on 05/09/2024 [place] [facility] [place]: Carotid [employer] PHIL [id number] 01/23/2026 [id number] / / [id number] documented as of this encounter Advance Directives * No Code (Latest Code Status on File) Date Activated Date Inactivated Comments 05/09/2024 8:31 AM This order re flects the patients wishes and were consensually agreed upon. Question Answer Comments Discussion of Advance Direct kade occurred with: Power of Lining Feller/Patient Subeditor Does the patient have a Living Will? Yes, in sherrell rt and reviewed as current Does the patient have Health Care Power of Lining Feller? Yes, in chart and reviewed as current [...] Advance Direct kade occurred with: Power of Lining Feller/Patient Subeditor Does the patient have Health Care Power of Lining Feller? Yes, in chart and reviewed as current Intubation? No Cardiac Compressions? No Defibrillation? No Synchronized Cardioversion? No External Pacemaker? No Cardiac Drugs? No Care Teams Plating Operator Relationship Specialty Start Date End Date Art Cavazos DO [address] [place] [address] PCP - General Internal Medicine 11/19/23 documented as of this encounter
--- OUTSIDE RECORDS SUMMARY | 2024-05-18 13:10 | External Medical Summary ---
Author Name Unknown Address Unknown Organization K01:LABORATORY [facility] [place] - [address] [facility] [address] Laboratory Report Ordering Provider Test Date Status JUANJO GROVES 05/10/2024 03:39:00 Final Assay designed to measure th e [...] arachidonate induced [Units/volume] in Platelet rich plasma 05/10/2024 03:39:00 404 Below low normal >=550 (ARU) Final Performing Location LABORATORY [facility] [place] - [address] [place] [address]
--- OUTSIDE RECORDS SUMMARY | 2024-05-18 13:10 | External Medical Summary ---
Author Name Unknown Address Unknown Organization K01:LABORATORY [facility] [place] [address] [place] [address] [place] [address] Laboratory Report Ordering Provider Test Date Status CHARO ALVAREZ 05/11/2024 07:17:00 Final Observation Date Value Abnormality Reference (Units ) Status Calcium.ionized [Moles/volume] in Serum or Plasma by Ion-selective membrane electrode (ISE) 05/11/2024 07:17:00 1.16 1.13-1.32 (mmol/L) Final This test was developed and its performance characteristics dtermined by [employer]. It has not been cleared or approved by the [place] Food and Drug Administration Performing Location LABORATORY [place] [address] [place] [address]
--- OUTSIDE RECORDS SUMMARY | 2024-05-18 13:10 | External Medical Summary ---
Author Name Unknown Address Unknown Organization [id number]:[place] [facility] [place] [address] [place] [address] Ave. [facility] [address] Laboratory Report Ordering Provider Test Date Status JUANJO GROVES 05/10/2024 03:35:00 Final Assay measures the level of platelet [...] Platelet aggregation ADP induced [Units/volume] in Blood 05/10/2024 03:35:00 179 Below low normal 182-335 (PRU) Final Performing Location [place] [facility] [place] [address] [facility] [address]
--- OUTSIDE RECORDS SUMMARY | 2024-05-18 13:10 | External Medical Summary ---
Author Name Unknown Address Unknown Organization [id number]:LABORATORY [facility] [place] - [facility] [address] [facility] [address] [facility] [address] Laboratory Report Ordering Provider Test Date Status LAURIE WNAG 05/10/2024 08:23:00 Final Observation Date Value Abnormality Reference (Units ) Status WBC, Total 05/10/2024 08:23:00 10.38 4.00-10.80 (K/uL) Final RBC 05/10/2024 08:23:00 5.17 4.50-5.25 (M/uL) Final Hemoglobin 05/10/2024 08:23:00 15.1 14.0-16.8 (g/dL) Final HCT 05/10/2024 08:23:00 47.3 40.0-48.4 (%) Final MCV 05/10/2024 08:23:00 91.5 82.0-99.5 (fL) Final MCH 05/10/2024 08:23:00 29.2 27.0-34.0 (pg) Final MCHC 05/10/2024 08:23:00 31.9 32.0-36.0 (g/dL) Final RDW 05/10/2024 08:23:00 14.6 11.5-15.5 (%) Final Platelets 05/10/2024 08:23:00 168 140-400 (K/uL) Final MPV 05/10/2024 08:23:00 9.6 6.6-11.1 (fL) Final Nucleated erythrocytes/100 leukocytes [Ratio] in Blood by Automated count 05/10/2024 08:23:00 0 <=0 (/100 WBCs) Final Performing Location LAB[facility]ATORY [facility] [place] - [address] [facility] [address]
--- OUTSIDE RECORDS SUMMARY | 2024-05-18 13:10 | External Medical Summary | Summary of Care ---
Author Name Unknown Organization [facility] Address [address] [place] [address] Phone [phone] Care Team Providers Care Computer Drafter Name Role Phone Kashifnadine Art Mazariegos DO Primary Care Provider [phone] Encounter Details Date Type Department Care Team (Late st Contact Info) Description 05/09/2024 Documentation [facility] [place] [address] [place] [address] 2, [employer] [address] [place], [place] [phone] Allergies Active Allergy Reactions Criticality Noted Date Comments Amoxicillin Fever,Rash Medium 12/29/2013 documented as of this encounter (statuses as of 05/09/2024) Medications Tupalo SYSTEM W/DEVICE KITIndications: DM type 2, goal [...] 11:00 AM EST Therapy Neuropsychology Quiana Lundberg [place] [address] [facility] [place] [address] Enrique Kay, PhD 200 [facility] [place] [address] 08/02/2024 1:00 PM EDT Office Visit Family Practice [address] [place] [address] [place] [phone] Art Cavazos DO 293 [place] [address] 10/15/2024 2:00 PM EDT Nurse Only Family Practice [address] [place] [address] [place] [phone] Sonali Echeverria, RITCHIE 293 [place] [phone] 11/01/2024 2:20 PM EDT Office Visit Nephrology, [facility] [address] [facility] [place] [address] Baldo Mackey MD 200 [facility] [place], [place] [address] 12/03/2024 2:00 PM EDT Office Visit Rheumatology [place] [address] [facility] [place], [place] [address] Sarah Stroud CRNP [facility] [email or web address] [place], [place] [address] Scheduled Procedures Name Priority Associated Diagnoses Date/Ti [...] Additional history exists CKD PHOS USE SMARTSET 39361 03/31/2025 110 10/2023, 03/21/2023, 12/20/2021, Additional history exists Diabetic Foot Exam 03/31/2025 03/31/2024, 1 , 03/07/2022, Additional history exists CKD HGB USE SMARTSET 08654 05/09/202505/09, 05/09/2024, 05/09/2024, Additional history exists DTap/Tdap [...] this encounter Medical Devices Implanted Type Area Market Research Senior Project Manager Device Identifier Shelf Expiration Date Model / Serial / Lot Stent 7x40 Precise [id number] - [id number] Implanted:Qty : 1 on 05/09/2024 by rCispin Nelson MD at OR [facility] [place] Left: Carotid CORDIS PHIL [id number] 01/23/2026 [id number] / / [id number] documented as of this encounter Advance Directives * No Code (Latest Code Status on File) Date Activated Date Inactivated Comments 05/09/2024 8:31 AM This order re flects the patients wishes and were consensually agreed upon. Question Answer Comments Discussion of Advance Direct kade occurred with: Power of Jet Handler/Patient Box Tender Does the patient have a Living Will? Yes, in sherrell rt and reviewed as current Does the patient have Health Care Power of Jet Handler? Yes, in chart and reviewed as [...] Advance Direct kade occurred with: Power of Jet Handler/Patient Box Tender Does the patient have Health Care Power of Jet Handler? Yes, in chart and reviewed as current Intubation? No Cardiac Compressions? No Defibrillation? No Synchronized Cardioversion? No External Pacemaker? No Cardiac Drugs? No Care Teams Computer Drafter Relationship Specialty Start Date End Date Art Cavazos DO [address] [facility] [place] [address] PCP - General Internal Medicine 11/19/23 documented as of this encounter
--- OUTSIDE RECORDS SUMMARY | 2024-05-18 13:10 | External Medical Summary ---
Author Name Unknown Address Unknown Organization [id number]:LABORATORY [facility] [place] - [address] [facility] [address] Laboratory Report Ordering Provider Test Date Status BAYLEE CRANE 05/09/2024 07:54:00 Final Observation Date Value Abnormality Reference (Units ) Status BUN 05/09/2024 07:54:00 22 Above high normal 6-20 (mg/dL) Final Creatinine 05/09/2024 07:54:00 1.4 Above high normal 0.6-1.2 (mg/dL) Final Glomerular filtration rate/1.73 sq M.predicted [Volume Rate/Area] in Serum, Plasma or Blood by Creatinine-based formula (CKD-EPI) 05/09/2024 07:54:00 50 Below low normal >=60 (mL/min) Final eGFR is calculated based on the CKD-EPI 2020 equation. Sodium 05/09/2024 07:54:00 132 Below low normal 135 -146 (mmol/L) Final Potassium 05/09/2024 07:54:00 4.3 3.5-5.1 (m mol/L) Final Cl 05/09/2024 07:54:00 98 98-107 (mm ol/L) Final CO2 05/09/2024 07:54:00 21 Below low normal 22- 32 (mmol/L) Final Anion gap 05/09/2024 07:54:00 13 7-15 (mmol /L) Final Glucose 05/09/2024 07:54:00 172 Above high normal 70 -120 (mg/dL) Final Albumin 05/09/2024 07:54:00 4.1 3.8-5.0 (g /dL) Final AST (Aspartate aminotransferase) 05/09/2024 07:54:00 15 10-50 (U/L) Fin al Results may be falsely eleva tye due to hemolysis. Alk Phos 05/09/2024 07:54:00 96 35-130 (U/ L) Final Bilirubin, Total 05/09/2024 07:54:00 0.8 <=1 .2 (mg/dL) Final Calcium 05/09/2024 07:54:00 8.9 8.4-10.2 ( mg/dL) Final Protein 05/09/2024 07:54:00 7.1 6.0-8.3 (g /dL) Final ALT (Alanine aminotransferase) 05/09/2024 07:54:00 10 10-50 (U/L) Final Performing Location LABORATORY [facility] [place] - [address] [facility] [address]
--- OUTSIDE RECORDS SUMMARY | 2024-05-18 13:10 | External Medical Summary ---
Author Name Unknown Address Unknown Organization K01:[place] [facility] [place] [address] [place] [address] Laboratory Report Ordering Provider Test Date Status BAYLEE CRANE 05/09/2024 07:54:00 Final Observation Date Value Abnormality Reference (Units ) Status Troponin T 05/09/2024 07:54:00 26 Above high normal < =22 (ng/L) Final Performing Location [place] [facility] [place] [address] [place] [address]
--- OUTSIDE RECORDS SUMMARY | 2024-05-18 13:10 | External Medical Summary ---
Author Name Unknown Address Unknown Organization : Laboratory Report Ordering Provider Test Date Status FLORECITA PAK 05/09/2024 09:27:07 Final NORMAL (NON-HEPARINIZED) 74- 137 SECONDS
HEPARINIZED 200+ SECONDS
CRITICAL GREATER THAN 1000 SECONDS
null Observation Date Value Abnormality Reference (Units ) Status Kaolin activated time [Units/volume] in Blood 05/09/2024 09:27:07 193 50-1000 (secs) Final Performing Location
--- OUTSIDE RECORDS SUMMARY | 2024-05-18 13:10 | External Medical Summary ---
Author Name Unknown Address Unknown Organization K01:LAB[facility]ATORY [facility] [place] - [address] [facility] [address] Laboratory Report Ordering Provider Test Date Status BAYLEE CRANE 05/09/2024 07:54:00 Final Observation Date Value Abnormality Reference (Units ) Status WBC, Total 05/09/2024 07:54:00 8.23 4.00-10.80 (K/uL) Final RBC 05/09/2024 07:54:00 5.39 4.50-5.25 (M/uL) Final Hemoglobin 05/09/2024 07:54:00 16.0 14.0-16.8 (g/dL) Final HCT 05/09/2024 07:54:00 48.6 Above high normal 40.0-48.4 (%) Final MCV 05/09/2024 07:54:00 90.2 82.0-99.5 (fL) Final MCH 05/09/2024 07:54:00 29.7 27.0-34.0 (pg) Final MCHC 05/09/2024 07:54:00 32.9 32.0-36.0 (g/dL) Final RDW 05/09/2024 07:54:00 14.6 11.5-15.5 (%) Final Platelets 05/09/2024 07:54:00 186 140-400 (K/uL) Final MPV 05/09/2024 07:54:00 9.5 6.6-11.1 (fL) Final Nucleated erythrocytes/100 leukocytes [Ratio] in Blood by Automated count 05/09/2024 07:54:00 0 <=0 (/100 WBCs) Final Performing Location LABORATORY [facility] [place] - [address] [place] [address]
--- OUTSIDE RECORDS SUMMARY | 2024-05-18 13:10 | External Medical Summary ---
Author Name Unknown Address Unknown Organization K01[place] [facility] [place] [address] [place] [address] [place] [address] Laboratory Report Ordering Provider Test Date Status LANEY NICHOLS 05/09/2024 11:16:10 Final Observation Date Value Abnormality Reference (Units ) Status Methicillin resistant Staphylococcus aureus (MRSA) DNA [Presence] in Nose by SOL with probe detection 05/09/2024 11:16:10 Negative Negative Final No Methicillin resistant Sta phylococcus aureus detected by PCR (amplified probe). Performing Location LABORATORY [facility] - [address] [place] [address]
--- OUTSIDE RECORDS SUMMARY | 2024-05-18 13:11 | External Medical Summary | Summary of Care ---
Author Name Unknown Organization [facility] Address [address] [place] [address] Phone [phone] Care Team Providers Care Strapping Machine Operator Name Role Phone Art Cavazos DO Primary Care Provider [phone] Reason for Visit * Reason Onset Date Comments Medication Refill 05/07/2024 Encounter Details Date Type Department Care Team (Late st Contact Info) Description 05/07/2024 Refill Family Practice [address], [place] [address] [place] [address] Art Cavazos DO [address] [place], [place] [phone] Type 2 diabetes mellitus with stage 3a chronic kidney disease, without long-term current use of insulin (HCC) Allergies Active Allergy Reactions Criticality Noted Date Comments Amoxicillin Fever,Rash Medium 12/29/2013 documented as of this encounter (statuses as of 05/08/2024) Medications Lucidworks SYSTEM W/DEVICE KITIndications: DM type 2, goal [...] 11 03/22/2024 11:42 AM EDT 03/19/2024 Active documented as of this encounter (statuses as of 05/08/2024) Active Problems Problem Noted Date Diagnosed Date [...] as of this encounter (statuses as of 05/08/2024) Resolved Problems Problem Noted Date Diagnosed Date [...] as of this encounter (statuses as of 05/08/2024) Immunizations Name Administration Dates Next Due COVID-19 mRNA, LNP-s, No Pre serve, 2-Dose Series (Moderna) 08/02/2020,07/05/2020 COVID-19, MRNA-LNP, PF, 30 M CG/0.3 mL, 12 YRS AND ABOVE, IM ([facility]) 03/31/2024,03/21/2023 COVID-19, mRNA, LNP-s, PF, B ooster, [...] encounter Miscellaneous Notes * Telephone Encounter - Milyl Scanlon [facility] - 05/08/2024 3:10 PM EST Refused Prescriptions: Disp Refills Empagliflozin 25 MG Oral Tablet (Jardiance)90 Tab*3 Sig: Take 1Tablet by mouth in the morning.Refused By: Sarah SCANLON for Refusal: Duplicate Request------- Electronically signed by Milly Scanlon [facility] at 05/08/2024 3:10 PM EST * Telephone Encounter - Ashtyn Morgan, STANISLAV - 05/07/2024 1:39 PM EST Pending Prescriptions: Disp Refills Empagliflozin 25 MG Oral Tablet (Jardianc*90 Tab*3 Sig: Take 1 Tablet by mouth in the morning. 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 Hypertensive kidney disease with stage 3a chronic kidney disease (HCC) CHARLIE inhibitor intolerance Drug-induced hyperkalemia Hyponatremia Stress and adjustment reaction Gout of both feet MCI (mild cognitive impairment) Labs: Lab Results Component Value Date/Time CREATININE - [facility] 1.5 (H) 03/31/2024 03:56 PM CREATININE - [facility] 1.4 (H) 04/14/2020 07:11 AM CREATININE, RANDOM URINE - [facility] 88 10/10/2023 10:54 AM CREATININE, RANDOM URINE - [facility] 47 12/16/2019 08:14 AM Lab Results Component Value Date/Time POTASSIUM - [facility] 4.3 03/31/2024 03:56 PM POTASSIUM - [facility] 5.0 04/14/2020 07:11 AM Lab Results Component Value Date/Time TSH - [facility] 1.82 07/21/2023 10:54 AM TSH - [facility] 1.54 02/19/2010 11:09 AM TSH - OUTSIDE LAB 1.050 04/08/2018 12:00 AM Lab Results Component Value Date/Time LDL CHOLESTEROL (CALCULATED) - [facility] 94 11/19/2023 11:06 AM LDL CHOLESTEROL (CALCULATED) - [facility] 117 11/18/2022 10:19 AM LDL CHOLESTEROL (CALCULATED) - [facility] 93 12/16/2019 08:14 AM LDL CHOLESTEROL (CALCULATED) - [facility] 96 11/24/2018 07:07 AM LDL CHOLESTEROL (DIRECT MEASURE) - [facility] NOT APPLICABLE 12/16/2019 08:14 AM LDL CHOLESTEROL (DIRECT MEASURE) - [facility] NOT APPLICABLE 11/24/2018 07:07 AM LDL CHOLESTEROL (DIRECT MEASURE) - [facility] 98 02/14/2012 10:26 AM LDL CHOLESTEROL (DIRECT MEASURE) - [facility] 81 03/19/2011 10:46 AM Lab Results Component Value Date/Time ALT - [facility] 21 10/24/2023 11:41 AM ALT - [facility] 8 (L) 11/24/2018 07:07 AM Hemoglobin AIC Results: Lab Results Component Value Date/Time HEMOGLOBIN A1C - [facility] 7.3 (H) 03/31/2024 03:56 PM HEMOGLOBIN A1C - [facility] 7.1 (H) 11/19/2023 11:06 AM HEMOGLOBIN A1C - [facility] 6.7 (H) 07/21/2023 10:54 AM HEMOGLOBIN A1C - [facility] 6.8 (H) 04/14/2020 07:11 AM HEMOGLOBIN A1C - [facility] 6.6 (H) 12/16/2019 08:14 AM HEMOGLOBIN A1C - [facility] 6.5 (H) 09/01/2019 07:50 AM documented in this encounter Plan of Treatment Upcoming Encounters Date Type Department Care Team (Late st Contact Info) Description 05/31/2024 11:00 AM EST Therapy Neuropsychology Quiana Lundberg [place] [address] [facility] [place] [address] Enrique Kay, PhD 200 [facility] [place] [address] 08/02/2024 1:00 PM EDT Office Visit Family Practice [address] [facility] 293 [place] [phone] Art Cavazos DO 293 [place] [address] 10/15/2024 2:00 PM EDT Nurse Only [facility] [address] [facility] 293 [place] [phone] Sonali Echeverria, RITCHIE [address] [place] [phone] 11/01/2024 2:20 PM EDT Office Visit Nephrology, Quiana [place] [address] [place] [address] Baldo Mackey MD 200 [place] [address] 12/03/2024 2:00 PM EDT Office Visit Rheumatology [place] [phone] [address] [place], [place] [address] Sarah Stroud CRNP [address] [place], [place] [phone] Scheduled Procedures Name Priority Associated Diagnoses Date/Ti me ESOPHAGOGASTRODUODENOSCOPY ( EGD), FLEXIBLE, TRANSORAL, DIAGNOSTIC Recall Anderson's esophagus with esophagitis Health Maintenance Due Date Last Done Comments Zoster Vaccines (1 of 2) 1990 Anderson's Esophagus Surveilance 10/26/2023 10/25/2020, 10/25/2020, 04/09/2018 Diabetic Eye Exam 04/01/2024 04/01/2023, , 06/02/2018, Additional history exists CKD HGB USE SMARTSET 63124 09/18/202409/18, 09/19/2023, 08/11/2023, Additional history exists GFR 09/28/2024 03/31/2024, 09/25, 09/19/2023, Additional history exists HbA1c 09/28/2024 03/31/2024, 10/25, 07/21/2023, Additional history exists Adult Wellness Visit 10/09/2024 10/10/2023, 09/20/2022, 06/06/2021 Albumin/Creatinine Ratio 10/09/2024 024, 11/18/2022, 11/20/2021, Additional history exists Depression Screening 10/09/2024 10/10/2023, 10/10/19 24 CKD PHOS USE SMARTSET 32175 03/31/2025 11/0 10/2023, 03/21/2023, 12/20/2021, Additional history [...] (HCC) documented in this encounter Care Teams Strapping Machine Operator Relationship Specialty Start Date End Date Art Cavazos DO [address] [facility] [place] [address] PCP - General Internal Medicine 11/19/23 documented as of this encounter
--- OUTSIDE RECORDS SUMMARY | 2024-05-18 13:11 | External Medical Summary ---
Author Name Unknown Address Unknown Organization K01:[place] [facility] [place] [address] [place] [address] Laboratory Report Ordering Provider Test Date Status BAYLEE CRANE 05/09/2024 07:54:00 Final Warfarin Therapy
INR: 2 .0-3.0 conventional anticoagulation
INR: 2.5- 3.5 high intensity anticoagulation Observation Date Value Abnormality Reference (Units ) Status PT 05/09/2024 07:54:00 14.2 11.6-15.2 (seconds) Final INR 05/09/2024 07:54:00 1.1 0.8-1.2 Final Performing Location LABORATORY [facility] [place] - [address] [place] [address]
--- OUTSIDE RECORDS SUMMARY | 2024-05-18 13:11 | External Medical Summary ---
Author Name Unknown Address Unknown Organization K01:[place] [facility] [place] [address] [facility] [address] Laboratory Report Ordering Provider Test Date Status BAYLEE CRANE 05/09/2024 07:54:00 Final Observation Date Value Abnormality Reference (Units ) Status SYNC LEUKOCYTES IN BLOOD BY AUTOMATED COUNT 05/09/2024 07:54:00 8.23 4.00-10.80 (K/uL) Final Segs 05/09/2024 07:54:00 83.4 Above high normal 40.0-75.0 (%) Final Lymphs % 05/09/2024 07:54:00 9.4 Below low normal 18.0-42.0 (%) Final Monos 05/09/2024 07:54:00 6.1 1.0-11.0 (%) Final Eosinophils 05/09/2024 07:54:00 0.1 0.0-6.0 (%) Final Basos 05/09/2024 07:54:00 0.5 0.0-2.0 (%) Final Immature Granulocyte, Percent 05/09/2024 07:54:00 0.5 0.0-2.0 (%) Final Absolute Segs 05/09/2024 07:54:00 6.87 1.80-7.70 (K/uL) Final Lymphs, absolute 05/09/2024 07:54:00 0.77 Below low normal 1.00-4.80 (K/ul) Final Monos, Abs 05/09/2024 07:54:00 0.50 0.00-1.10 (K/uL) Final Eos, Abs 05/09/2024 07:54:00 0.01 0.00-0.70 (K/uL) Final Basos, Abs 05/09/2024 07:54:00 0.04 0.00-0.20 (K/uL) Final Immature Granulocytes, Number 05/09/2024 07:54:00 0.04 0.00-0.20 (K/uL) Final Performing Location [place] [facility] [place] [facility] [address] [facility] [address]
[2024-05-18] MEDS: SODIUM CHLORIDE 0.9% 1,000 ML IV SCH (13:53)
[2024-05-18] MEDS ORDERED: GLUCAGON FOR INJ 1 MG VIAL SQ PRN (15:58)
[2024-05-18] MEDS ORDERED: CARBOHYDRATES FOR HYPOGLYCEMIA PO PRN (15:58)
[2024-05-18] MEDS ORDERED: GLUCOSE 40% GEL 15 GM TUBE PO PRN (15:58)
[2024-05-18] MEDS ORDERED: GLUCOSE 10 TAB/TUBE PO PRN (15:58)
--- NOTE | 2024-05-18 17:48 | Electrocardiogram Report ---
Test Reason : Blood Pressure : */* mmHG Vent. Rate : 70 BPM Atrial Rate : 70 BPM P-R Int : 158 ms QRS Dur : 94 ms QT Int : 402 ms P-R-T Axes : 60 13 77 degrees QTcB Int : 434 ms Normal sinus rhythm Nonspecific T wave abnormality Abnormal ECG When compared with ECG of 08-May-2024 12:07, No significant change was found Confirmed by Sathya Jean ([id number]) on 05/18/2024 5:48:16 PM Referred By: REFERRED SELF Confirmed By: Sathya Jean
[2024-05-18] MEDS: INSULIN ASPART PER UNIT CHARGE SC SCH (18:16)
[2024-05-18 20:00] LABS: Hematocrit (blood only) 43.4 % (42.0-52.0); Hemoglobin 14.6 g/dl (14.0-18.0); Mean Corpuscular Hemoglobin 29.7 pg (25.0-34.0); Mean Corpuscular Hgb Conc 33.6 g/dL (32.0-36.0); Mean Corpuscular Volume 88.4 fL (80.0-100.0); Mean Platelet Volume 9.8 fL (9.4-12.4); Platelet Count 320 K/uL (130-400); RDW Standard Deviation 45.4 fL (36.4-46.3); Red Blood Count 4.91 M/uL (4.70-6.10); White Blood Count 7.66 K/ul (4.8-10.8)
[2024-05-18] MEDS: CYANOCOBALAMIN (B-12) 500 MCG TABLET PO SCH (20:52)
[2024-05-18] MEDS: hydrALAZINE 10 MG TAB PO SCH (20:52)
[2024-05-18] MEDS: FERROUS SULFATE 325 MG TAB PO SCH (20:52)
[2024-05-18] MEDS: ATORVASTATIN 40 MG TAB PO SCH (20:53)
[2024-05-18] MEDS: CHLORHEXIDINE GLUCONATE 0.12% 480 ML MT SCH (20:54)
[2024-05-18] MEDS: SENNA 8.6 MG TAB PO SCH (20:54)
[2024-05-18] MEDS: MELATONIN 3 MG TAB PO SCH (20:54)
[2024-05-18] MEDS: LATANOPROST 0.005% OP SOLN 2.5 ML BTL OPB SCH (20:55)
[2024-05-18] MEDS ORDERED: HEPARIN SOD 5,000 UNIT/0.5 ML VIAL SQ SCH (22:00)
--- NOTE | 2024-05-18 22:09 | CT Scan Report ---
Exam(s): CT ABDOMEN + PELVIS Without Contrast EXAM: CT Abdomen and Pelvis Without Intravenous Contrast CLINICAL HISTORY: Lui hematuria. Assess. TECHNIQUE: Axial computed tomography images of the abdomen and pelvis without intravenous contrast. CTDI is 22.78 mGy and DLP is 1179.28 mGy-cm. Automated exposure control was utilized for the study. A dose lowering technique was utilized adhering to the principles of ALARA. COMPARISON: CT abdomen and pelvis with contrast dated 04/15/2018 FINDINGS: Artifacts: Scatter artifact likely related to patient's arm position. Limitations: There is respiratory artifact, which degrades image quality on multiple image slices. Lung bases: Curvilinear changes noted at the lung bases. No consolidation. ABDOMEN: Liver: Unremarkable. Gallbladder and bile ducts: Unremarkable. No calcified stones. No ductal dilation. Pancreas: Unremarkable. No ductal dilation. Spleen: Unremarkable. No splenomegaly. Adrenals: Unremarkable. No mass. Kidneys and ureters: The unenhanced kidneys demonstrate similar contours to the prior examination. No hydronephrosis, nephrolithiasis or ureteral stones. The previously noted cortical cyst posteriorly at the midpole of the left kidney is grossly stable, measuring approximately 8.5 mm. Detail evaluation limited. Stomach and bowel: No evidence for bowel obstruction. Evaluation of the bowel mucosa is slightly limited without contrast. Extensive diverticulosis noted involving the distal descending and sigmoid colon. No obvious diverticulitis. PELVIS: Appendix: A normal caliber appendix is noted in the right lower quadrant. Bladder: A Dominguez catheter is noted in the bladder. There is extensive hyperdense material throughout the bladder. Is most consistent with hemorrhagic clot burden throughout the bladder. Detail evaluation limited without contrast. No stones. Reproductive: Prostatic hypertrophy. ABDOMEN and PELVIS: Intraperitoneal space: Unremarkable. No free air. No significant fluid collection. Bones/joints: No acute fracture. No dislocation. Soft tissues: Hyperdense crescentic and irregular soft tissue swelling noted superficial to the right common femoral vasculature at the right groin. Vasculature: Unremarkable. No abdominal aortic aneurysm. Lymph nodes: Unremarkable. No enlarged lymph nodes. IMPRESSION: 1. The unenhanced kidneys demonstrate similar contours to the prior examination. No hydronephrosis, nephrolithiasis or ureteral stones. The previously noted cortical cyst posteriorly at the midpole of the left kidney is grossly stable, measuring approximately 8.5 mm. Detail evaluation limited. 2. A Dominguez catheter is noted in the bladder. There is extensive hyperdense material throughout the bladder. The appearance is most consistent with brain clot burden. No obvious focal bladder wall thickening. Detail evaluation limited. Prostatic hypertrophy. 3. Hyperdense crescentic and irregular soft tissue swelling noted superficial to the right common femoral vasculature at the right groin. Please correlate clinically for attempted vascular access in this region. Electronically signed by: George Newman MD 05/18/24 22:08 PM
[2024-05-19 06:52] LABS: Hematocrit (blood only) 41.4 % (42.0-52.0); Hemoglobin 13.9 g/dl (14.0-18.0); Mean Corpuscular Hemoglobin 29.6 pg (25.0-34.0); Mean Corpuscular Hgb Conc 33.6 g/dL (32.0-36.0); Mean Corpuscular Volume 88.1 fL (80.0-100.0); Mean Platelet Volume 10.1 fL (9.4-12.4); Platelet Count 309 K/uL (130-400); RDW Coefficient of Variation 13.9 % (11.5-14.5); RDW Standard Deviation 44.9 fL (36.4-46.3); White Blood Count 9.04 K/ul (4.8-10.8)
[2024-05-19 07:11] LABS: BUN Creatinine Ratio 31.4 (10-20); Calcium 8.7 mg/dl (8.6-10.3); Creatinine Clr Calc Pharmacy 34.3 ml/min; Potassium 4.3 mmol/L (3.5-5.1)
[2024-05-19] MEDS: CHOLECALCIFEROL 10 MCG (400 UNITS) TAB PO SCH (08:17)
[2024-05-19] MEDS: ASPIRIN 81 MG ECTAB PO SCH (08:17)
[2024-05-19] MEDS: allopurinoL 100 MG TAB PO SCH (08:17)
[2024-05-19] MEDS: PANTOprazole 40 MG TAB PO SCH (08:17)
[2024-05-19] MEDS: CLOPIDOGREL BISULFATE 75 MG TAB PO SCH (08:17)
--- NOTE | 2024-05-19 08:27 | Urology Consultation ---
Date of Consultation May 19, 2024 Assessment & Plan (1) Gross hematuria: Plan 84-year-old male admitted to the hospital on 05/18/2024 for drug-induced confusion. Patient was reportedly noted to have hematuria in his condom catheter and a CT scan was ordered. Urology was consulted. On evaluation, patient was unable to provide a history due to expressive aphasia but his catheter was draining maroon blood and having some leakage around the meatus. I attempted to irrigate through the 16 Ugandan catheter but was unable to be successful so I opted to swap out to a hematuria catheter. All of this was discussed with the patient as he could not adequately communicate w ith me but could understand what I was saying Procedure: Dominguez catheter balloon was deflated and 16 Ugandan catheter was removed. Patient was prepped and draped in sterile fashion. I advanced a 24 F rench hematuria catheter but every time I attempted to inflate the balloon the patient started screaming and it was unclear if the balloon was in the prostate. He was unable to communicate with me so I had to go off his reaction and therefore I was concerned that was not in the appropriate position. I cut off the tip of the 24 Ugandan and tried to advance a wire through this for appropriate placement but was unable to successfully get anything ub that I felt comfortable with. I was able to irrigate through it and got out maybe 20 cc of clot and then his urine was relatively clear. That being said, I suspect he may have a formed ball of clot in his bladder based on his CT scan. As I could not appropriately confirm position of the catheter, I opted to scope the catheter in. 24 Ugandan catheter was removed. I obtained verbal consent from the patient as he was able to say yes when I discussed a cystoscopy. The flexible cystoscope was inserted per urethra into the bladder. He did have an enlarged prostate but no obvious stricture or false passage. I was able to gain entry into the bladder. Super Stiff wire was advanced through the scope and the scope was backed out. A 22 Ugandan bill moore's slough tip three-way catheter was advanced over the wire into the bladder. Wire was removed. I inflated the balloon and seated the catheter. The patient did have some discomfort with placement but reported no pain during inflation or afterwards. The catheter irrigated appropriately with no obvious clot. Given his difficult situation and expressive aphasia, my goal is to not have to manipu late his catheter any further today. He is also not appropriately n.p.o. if he would need the OR, which would be the next step. Therefore, I elected to place him on CBI. This was hooked up and he was placed on a moderate drip with crystal-clear urine coming out. Patient reported feeling comfortable. Plan: Maintain CBI to moderate drip. Nursing can hand irrigate as necessary Please make patient n.p.o. at midnight in the event that he would need a procedure tomorrow Defer to primary team regarding anticoagulation in the setting of a recent stroke. Urology can manage hematuria while on anticoagulation if necessary Recommend antibiotics such as Bactrim or Cipro, renally dosed while patient is on CBI as he cannot get Ancef due to on amoxicillin allergy Urology to follow. Patient will need hematuria workup as an outpatient. Greater than 75 minutes was spent on the procedure and providing care for the patient. History of Present Illness Attending Physician: Tod Mon MD History of Present Illness 84-year-old male admitted to the hospital on 05/18/2024 for drug-induced confusion. Patient was reportedly noted to have hematuria in his condom catheter and a CT scan was ordered. Urology was consulted. I independently reviewed his CT scan which shows a catheter in place with what appears to be a large amount of clot in the bladder. There was no hydronephrosis. Labs today show hemoglobin of 13.9, creatinine of 1.56 which is downtrending. Urinalysis the previous days showed greater than 20 RBCs, but no other new abnormalities. It appears that the patient is on aspirin and Plavix at home. He is afebrile with stable vitals today. Patient was eating when I saw him so not appropriately n.p.o. in the event that he would need the OR. He has expressive aphasia from recent stroke so difficult to get a history. Catheter did appear to be draining however urine was bloody and he was having some leakage around the meatus. Allergies Allergy/AdvReac Type Severity Reaction Status Date / Time amoxicillin Allergy Mild FEVER, RASH Verified 07/18/22 20:15 Home Medications Medication Instructions Recorded Confirmed Type aspirin 81 mg tablet,delayed 81 mg PO DAILY 07/18/22 05/18/24 History release cholecalciferol (vitamin D3) 10 20 mcg PO DAILY 07/18/22 05/18/24 History mcg (400 unit) tablet (Vitamin D3) cyanocobalamin (vitamin B-12) 1,000 mcg PO QPM 07/18/22 05/18/24 History 1,000 mcg tablet (Vitamin B-12) empagliflozin 25 mg tablet 25 mg PO QAM 07/18/22 05/18/24 History (Jardiance) ferrous sulfate 325 mg (65 mg 325 mg PO QPM 07/18/22 05/18/24 History iron) tablet kywuaaduprx-qymjwlgva-euo C-Mn 500 1 cap PO AMHS 07/18/22 05/18/24 History mg-400 mg capsule allopurinol 100 mg tablet 100 mg PO DAILY 05/08/24 05/18/24 History hydralazine 10 mg tablet 10 mg PO BID 05/08/24 05/18/24 History latanoprost 0.005 % eye drops 1 drp OPB QPM 05/08/24 05/18/24 History acetaminophen 325 mg tablet 650 mg PO QID PRN Fever Or Pain 05/18/24 05/18/24 History atorvastatin 40 mg tablet 40 mg PO PM 05/18/24 05/18/24 History chlorhexidine gluconate 0.12 % 15 ml buccal BID 05/18/24 05/18/24 History mouthwash chlorthalidone 25 mg tablet 25 mg PO DAILY 05/18/24 05/18/24 History clopidogrel 75 mg tablet 75 mg PO DAILY 05/18/24 05/18/24 History melatonin 3 mg tablet 3 mg PO HS 05/18/24 05/18/24 History olmesartan 20 mg tablet 20 mg PO DAILY 05/18/24 05/18/24 History pantoprazole 40 mg tablet,delayed 40 mg PO DAILY 05/18/24 05/18/24 History release potassium chloride 10 mEq 40 meq PO DAILY 05/18/24 05/18/24 History tablet,extended release(part/cryst) quetiapine 25 mg tablet 25 mg PO DAILY 05/18/24 05/18/24 History quetiapine 50 mg tablet 50 mg PO HS 05/18/24 05/18/24 History sennosides 8.6 mg tablet (senna) 8.6 mg PO BID 05/18/24 05/18/24 History Patient History Medical History (Updated 05/19/24 @ 08:27 by Art Craig MD) Diverticulitis GI bleed Alcohol use HTN (hypertension) CKD (chronic kidney disease), stage III Diabetes mellitus, type II GERD (gastroesophageal reflux disease) Surgical History (Updated 05/18/24 @ 13:53 by Eleanor Maynard PA-C) History of vasectomy History of colonoscopy Family History Other Alzheimer disease Social History Smoking Status: Unknown if ever smoked Second Hand Exposure: No; Preferred Language: Guamanian Vacuum Conditioner Operator Required: No Beliefs That Will Affect Care: None Current Living Situation: Rehab Physical Exam Physical Exam: General: Alert and oriented, no acute distress HEENT: Normocephalic, mucous membranes moist Pulmonary: Nonlabored respirations Abdomen: Nondistended : 16 Ugandan catheter draining maroon blood with some drainage around the meatus Extremities: Moves all 4 spontaneously Neuro: Expressive aphasia, right-sided weakness Skin: Warm, dry, no rashes noted Results & Data Vital Signs (Past 12 Hours) Vital Signs Temp Pulse Pulse Pulse Resp BP Pulse Ox 05/19/24 07:30 36.5 C 70 16 146/76 H 93 05/19/24 07:30 05/19/24 07:00 64 05/19/24 04:10 36.7 C 70 20 143/73 H 93 05/19/24 00:05 36.3 C L 70 20 114/68 94 05/18/24 23:29 05/18/24 21:48 70 O2 Del Method 05/19/24 07:30 Room Air 05/19/24 07:30 Room Air 05/19/24 07:00 05/19/24 04:10 Room Air 05/19/24 00:05 Room Air 05/18/24 23:29 Room Air 05/18/24 21:48 PG Care Time/CCT Total # of Minutes Spent Total Time Spent with Patient: Total time spent is greater than 50% in coordination of care (as documented) at patient's floor/unit and/or counseling patient: Coding Level of Care Code 99185 INT INP/OBS CARE 3/75MIN Diagnoses Gross hematuria R31.0
--- OUTSIDE RECORDS SUMMARY | 2024-05-19 12:58 | External Medical Summary | Summary of Care ---
Author Name Unknown Organization [facility] Address [address] [place] [address] Phone [phone] Care Team Providers Care Plastic Finisher Name Role Phone Art Cavazos DO Primary Care Provider [phone] Encounter Details Date Type Department Care Team (Late st Contact Info) Description 05/18/2024 Telephone [facility] [place] [address] [place] [address] Aster Shrestha, STANISLAV [address] [place], [place] [phone] Allergies Active Allergy Reactions Criticality Noted Date Comments Amoxicillin Fever,Rash Medium 12/29/2013 documented as of this encounter (statuses as of 05/18/2024) Medications [employer] SYSTEM W/DEVICE KITIndications: DM type 2, goal [...] A1c goal of less than 7.0% ([facility]) Use to test sugars once daily 100 Each 3 2 Active Vitamin D-400 10 MCG (400 UNIT) Oral Tablet (cholecalcifero l (VIT D3))Indications :Vitamin D deficiency Take 2 Tablets by mouth daily. 120 Tablet 3 3 Active OneTouch Ultra In Vitro Strip (Glucose Blood)Indicatio ns:Type 2 diabetes mellitus with stage 3a chronic kidney disease, without long-term current use of insulin ([facility]) TEST 1 TO 2 TIMES DAILY. [...] without long-term current use of insulin ([facility]) Take 1 Tablet by mouth in [...] as of this encounter (statuses as of 05/18/2024) Active Problems Problem Noted Date Diagnosed Date [...] as of this encounter (statuses as of 05/18/2024) Resolved Problems Problem Noted Date Diagnosed Date [...] as of this encounter (statuses as of 05/18/2024) Immunizations Name Administration Dates Next Due COVID-19 [...] encounter Miscellaneous Notes * Telephone Encounter - Aster Shrestha OSA - 05/18/2024 11:16 AM EST Clerical pool documented in this encounter Plan of Treatment Upcoming Encounters Date Type Department Care Team (Late st Contact Info) Description 05/24/2024 1:40 PM EST Office Visit Family Practice 65 [facility] 293 [facility], [place] [phone] Art Cavazos, [address] [place] [address] 05/31/2024 11:00 AM EST Therapy Neuropsychology [facility] 200 [facility] [place] [address] Enrique Kay, PhD [address] [place] [address] 06/16/2024 12:30 PM EST Telemedicine Neurosurgery, [place] [address] [place] [address] Crispin Nelson MD [address] [place] [address] 07/09/2024 3:00 PM EST [facility] [address] [place] [phone] Jose Ramos MD [address] [place], [place] [phone] [facility] [address] [facility], [place] [address] 08/02/2024 1:00 PM EDT Office Visit Family Practice 65 [facility] 293 [facility], [place] [phone] Art Cavazos, DO [address] [place] [address] 10/15/2024 2:00 PM EDT Nurse Only Family Practice 65 [facility] [place] [address] [place] [address] Sonali Echeverria, RITCHIE [address] [place] [address] 11/01/2024 2:20 PM EDT Office Visit Nephrology, [facility] 200 [facility] [place] [address] Baldo Mackey MD 200 [facility] [place], [place] [address] 12/03/2024 2:00 PM EDT Office Visit Rheumatology [facility] [address] [place] [address] Sarah Stroud CRNP [address] [place] [address] Scheduled Procedures Name Priority Associated Diagnoses Date/Ti [...] 05/09/2024, 10/2023, 11/19/2023, Additional history exists GFR 11/16/2024 05/18/2024, 04/26, 05/16/2024, Additional history exists Diabetic Foot Exam 03/31/2025 03/31/2024, 1 , 03/07/2022, Additional history exists CKD PHOS USE SMARTSET 59270 05/17/2025 12/2 07/2023, 05/16/2024, 05/15/2024, Additional history exists CKD HGB USE SMARTSET 61250 05/18/202505/18, 05/12/2024, 05/11/2024, Additional history exists DTap/Tdap Vaccines [...] this encounter Medical Devices Implanted Type Area Brick Paving Checker Device Identifier Shelf Expiration Date Model / Serial / Lot Stent 7x40 Precise [id number] - [id number] Implanted:Qty : 1 on 05/09/2024 by Crispin Nelson MD [place] [facility] Left: Carotid [facility] [id number] 01/23/2026 [id number] / / [id number] documented as of this encounter Advance Directives Documents on File Type Date Recorded Patient Broker Assistant Expl anation Advance Directives and Living Will 05/18/2024 signed on 10/02/2022 ADVANCE DIRECTIVE / LIVING WILL * No Code (Latest Code Status on File) Date Activated Date Inactivated Comments 05/09/2024 8:31 AM 05/17/2024 2:15 PM This order reflects the patients wishes and were consensually agreed upon. Question Answer Comments Discussion of Advance Direct kade occurred with: Power of Microbiology Instructor/Patient Broker Assistant Does the patient have a Living Will? Yes, in sherrell rt and reviewed as current Does the patient have Health Care Power of Microbiology Instructor? Yes, in chart and reviewed as [...] Advance Direct kade occurred with: Power of Microbiology Instructor/Patient Broker Assistant Does the patient have Health Care Power of Microbiology Instructor? Yes, in chart and reviewed as current Intubation? No Cardiac Compressions? No Defibrillation? No Synchronized Cardioversion? No External Pacemaker? No Cardiac Drugs? No Care Teams Plastic Finisher Relationship Specialty Start Date End Date Art Cavazos DO [address] [place] [address] PCP - General Internal Medicine 11/19/23 documented as of this encounter
--- OUTSIDE RECORDS SUMMARY | 2024-05-19 12:58 | External Medical Summary | Summary of Care ---
Author Name Unknown Organization [facility] Address [address] [place] [address] Phone [phone] Care Team Providers Care Library Media Technician Name Role Phone Art Cavazos DO Primary Care Provider [phone] Encounter Details Date Type Department Care Team (Late st Contact Info) Description 05/18/2024 Telephone [facility] [place] [address] [place] [address] Aster Shrestha, STANISLAV [address] [place], [place] [phone] Allergies Active Allergy Reactions Criticality Noted Date Comments Amoxicillin Fever,Rash Medium 12/29/2013 documented as of this encounter (statuses as of 05/18/2024) Medications [employer] SYSTEM W/DEVICE KITIndications: DM type 2, goal [...] hemoglobin A1c goal of less than 7.0% ([facility]) Use to test sugars once daily 100 Each 3 2 Active Vitamin D-400 10 MCG (400 UNIT) Oral Tablet (cholecalcifero l (VIT D3))Indications :Vitamin D deficiency Take 2 Tablets by mouth daily. 120 Tablet 3 3 Active OneTouch Ultra In Vitro Strip (Glucose Blood)Indicatio ns:Type 2 diabetes mellitus with stage 3a chronic kidney disease, without long-term current use of insulin ([facility]) TEST 1 TO 2 TIMES [...] disease, without long-term current use of insulin ([facility]) Take 1 Tablet by mouth [...] No 03/21/2023 Does the household have a [facility] source of income? (Household - [...] Practice 65 [facility] 293 [facility] [place] [address] Art Cavazos, 293 [place] [address] 05/31/2024 11:00 AM EST Therapy Neuropsychology [facility] [place] [address] [place] [address] Enrique Kay, PhD 200 [facility] [place] [address] 06/16/2024 12:30 PM EST Telemedicine Neurosurgery, [place] [address] [place], [place] [phone] Crispin Nelson MD [address] [place] [address] 07/09/2024 3:00 PM EST Telemedicine Neurology [facility] [place] [address] [place] [address] Jose Ramos MD [address] [place] [address] [facility] 65 [facility] 293 [facility] [place] [address] 08/02/2024 1:00 PM EDT Office Visit Family Practice [address] [place] [phone] Art Cavazos, 293 [place] [address] 10/15/2024 2:00 PM EDT Nurse Only Family Practice [address] [place] [phone] Sonali Echeverria RN 293 [place] [address] 11/01/2024 2:20 PM EDT Office Visit Nephrology, Quiana Lundberg 200 [place] [address] Baldo Mackey MD 200 [facility] [place] [address] 12/03/2024 2:00 PM EDT Office Visit Rheumatology [facility] [address] [facility] [place] [address] Sarah Stroud CRNP [address] [place] [address] Scheduled Procedures Name Priority Associated Diagnoses Date/Ti [...] Additional history exists CKD PHOS USE SMARTSET 94764 05/17/202504/26, 05/16/2024, 05/15/2024, Additional history exists CKD HGB USE SMARTSET 33293 05/18/202505/18, 05/12/2024, 05/11/2024, Additional history exists DTap/Tdap [...] this encounter Medical Devices Implanted Type Area Cap Maker Device Identifier Shelf Expiration Date Model / Serial / Lot Stent 7x40 Precise [id number] - [id number] Implanted:Qty : 1 on 05/09/2024 by Crispin Nelson MD [place] [facility] Left: Carotid [employer]IS [employer] PHIL [id number] 01/23/2026 [id number] / / [id number] documented as of this encounter Advance Directives Documents on File Type Date Recorded Patient Palliative Nurse Expl anation Advance Directives and Living Will 05/18/2024 signed on 10/02/2022 ADVANCE DIRECTIVE / LIVING WILL * No Code (Latest Code Status on File) Date Activated Date Inactivated Comments 05/09/2024 8:31 AM 05/17/2024 2:15 PM This order reflects the patients wishes and were consensually agreed upon. Question Answer Comments Discussion of Advance Direct kade occurred with: Power of Registered Medical Transcriptionist/Patient Palliative Nurse Does the patient have a Living Will? Yes, in sherrell rt and reviewed as current Does the patient have Health Care Power of Registered Medical Transcriptionist? Yes, in chart and reviewed as current [...] Advance Direct kade occurred with: Power of Registered Medical Transcriptionist/Patient Palliative Nurse Does the patient have Health Care Power of Registered Medical Transcriptionist? Yes, in chart and reviewed as current Intubation? No Cardiac Compressions? No Defibrillation? No Synchronized Cardioversion? No External Pacemaker? No Cardiac Drugs? No Care Teams Library Media Technician Relationship Specialty Start Date End Date Art Cavazos DO [address] [place] [address] PCP - General Internal Medicine 11/19/23 documented as of this encounter
--- OUTSIDE RECORDS SUMMARY | 2024-05-19 12:59 | External Medical Summary | Summary of Care ---
Author Name Unknown Organization [facility] Address [address] [place] [address] Phone [phone] Care Team Providers Care Mining Consultant Name Role Phone Art Cavazos DO Primary Care Provider Encounter Details Date Type Department Care Team (Late st Contact Info) Description 05/18/2024 Telephone [facility] [place] [address] [place] [address] Aster Shrestha, STANISLAV [address] [place], [place] [phone] Allergies Active Allergy Reactions Criticality Noted Date Comments Amoxicillin Fever,Rash Medium 12/29/2013 documented as of this encounter (statuses as of 05/18/2024) Medications [employer] SYSTEM W/DEVICE KITIndications: DM type 2, goal [...] A1c goal of less than 7.0% ([facility]) Use to test sugars once daily 100 Each 3 2 Active Vitamin D-400 10 MCG (400 UNIT) Oral Tablet (cholecalcifero l (VIT D3))Indications :Vitamin D deficiency Take 2 Tablets by mouth daily. 120 Tablet 3 3 Active OneTouch Ultra In Vitro Strip (Glucose Blood)Indicatio ns:Type 2 diabetes mellitus with stage 3a chronic kidney disease, without long-term current use of insulin ([facility]) TEST 1 TO 2 TIMES DAILY. 200 [...] without long-term current use of insulin ([facility]) Take 1 Tablet by mouth in the [...] No 03/21/2023 Does the household have a [facility] source of income? (Household - for [...] Encounter - Aster Shrestha OSA - 05/18/2024 11:11 AM EST Assigned to SW documented in this encounter Plan of Treatment Upcoming Encounters Date Type Department Care Team (Late st Contact Info) Description 05/24/2024 1:40 PM EST Office Visit Family Practice 65 [facility] 293 [place] [phone] Art Cavazos, [address] [place] [address] 05/31/2024 11:00 AM EST Therapy Neuropsychology [facility] 200 [facility] [place] [address] Enrique Kay, PhD [address] [place] [address] 06/16/2024 12:30 PM EST Telemedicine Neurosurgery, [place] [address] [place] [address] Crispin Nelson MD [address] [place] [address] 07/09/2024 3:00 PM EST [facility] [address] [place] [phone] Jose Ramos MD [address] [place], [place] [phone] [facility] [address] [facility] [place] [address] 08/02/2024 1:00 PM EDT Office Visit Family Practice 65 [facility] 293 [facility] [place] [phone] Art Cavazos, DO [address] [place] [address] 10/15/2024 2:00 PM EDT Nurse Only Family Practice 65 [facility] [place] [address] [place] [address] Sonali Echeverria, RITCHIE [address] [place] [address] 11/01/2024 2:20 PM EDT Office Visit Nephrology, [facility]iana [facility]berg 200 [facility] [place] [address] Baldo Mackey MD 200 [facility] [place], [place] [address] 12/03/2024 2:00 PM EDT Office Visit Rheumatology [facility] [address] [place] [address] Sarah Stroud CRNP [address] [place] [address] Scheduled Procedures Name Priority Associated Diagnoses Date/Ti [...] Additional history exists CKD PHOS USE SMARTSET 75609 05/17/2025 12/2 07/2023, 05/16/2024, 05/15/2024, Additional history exists CKD HGB USE SMARTSET 10966 05/18/202505/18, 05/12/2024, 05/11/2024, Additional history exists DTap/Tdap [...] this encounter Medical Devices Implanted Type Area Information Resource Consultant Device Identifier Shelf Expiration Date Model / Serial / Lot Stent 7x40 Precise [id number] - [id number] Implanted:Qty : 1 on 05/09/2024 by Crispin Nelson MD at [place] [facility] [place] Left: Carotid [facility] [id number] 01/23/2026 [id number] / / [id number] documented as of this encounter Advance Directives Documents on File Type Date Recorded Patient Hole Puncher Strap Expl anation Advance Directives and Living Will 05/18/2024 signed on 10/02/2022 ADVANCE DIRECTIVE / LIVING WILL * No Code (Latest Code Status on File) Date Activated Date Inactivated Comments 05/09/2024 8:31 AM 05/17/2024 2:15 PM This order reflects the patients wishes and were consensually agreed upon. Question Answer Comments Discussion of Advance Direct kade occurred with: Power of Echocardiograph Tech/Patient Hole Puncher Strap Does the patient have a Living Will? Yes, in sherrell rt and reviewed as current Does the patient have Health Care Power of Echocardiograph Tech? Yes, in chart and reviewed as current [...] Advance Direct kade occurred with: Power of Echocardiograph Tech/Patient Hole Puncher Strap Does the patient have Health Care Power of Echocardiograph Tech? Yes, in chart and reviewed as current Intubation? No Cardiac Compressions? No Defibrillation? No Synchronized Cardioversion? No External Pacemaker? No Cardiac Drugs? No Care Teams Mining Consultant Relationship Specialty Start Date End Date Art Cavazos DO [address] [place] [address] PCP - General Internal Medicine 11/19/23 documented as of this encounter
--- OUTSIDE RECORDS SUMMARY | 2024-05-19 12:59 | External Medical Summary | Summary of Care ---
Author Name Unknown Organization [facility] Address [address] [place] [address] Phone [phone] Care Team Providers Care Editor Sound Name Role Phone Art Cavazos DO Primary Care Provider [phone] Encounter Details Date Type Department Care Team (Late st Contact Info) Description 05/18/2024 Telephone [facility], [place] [address] [place] [address] Aster Shrestha, STANISLAV [address] [place], [place] [phone] Allergies Active Allergy Reactions Criticality Noted Date Comments Amoxicillin Fever,Rash Medium 12/29/2013 documented as of this encounter (statuses as of 05/18/2024) Medications Brightbox Charge SYSTEM W/DEVICE KITIndications: DM type 2, goal [...] goal of less than 7.0% ([facility]) Use to test sugars once [...] long-term current use of insulin ([facility]) TEST 1 TO 2 TIMES [...] long-term current use of insulin ([facility]) Take 1 Tablet by mouth [...] 03/21/2023 Does the household have a presbyterian kaseman hospitallar source of income? (Household - for [...] Encounter - Aster Shrestha OSA - 05/18/2024 11:14 AM EST Clerical pool documented in this encounter Plan of Treatment Upcoming Encounters Date Type Department Care Team (Late st Contact Info) Description 05/24/2024 1:40 PM EST Office Visit Family Practice 65 [facility] 293 [place] [phone] Art Cavazos, [address] [place] [address] 05/31/2024 11:00 AM EST Therapy Neuropsychology [facility] 200 [facility] [place] [address] Enrique Kay, PhD [address] [place] [address] 06/16/2024 12:30 PM EST Telemedicine Neurosurgery, [place] [address] [place] [address] Crispin Nelson MD [address] [place] [address] 07/09/2024 3:00 PM EST [facility] [address] [place] [phone] Jose Ramos MD [address] [place], [place] [id number] [facility] [address] [facility] [place] [address] 08/02/2024 1:00 PM EDT Office Visit Family Practice [facility] 293 [place] [phone] Art Cavazos, DO [address] [place] [address] 10/15/2024 2:00 PM EDT Nurse Only Family Practice 65 [facility] [place] [address] [place] [address] Sonali Echeverria, RITCHIE [address] [place] [address] 11/01/2024 2:20 PM EDT Office Visit Nephrology, [facility]iana Lundberg 200 [facility] [place] [address] Baldo Mackey MD 200 [facility] [place], [place] [address] 12/03/2024 2:00 PM EDT Office Visit Rheumatology [facility] [address] [place] [address] Sarah Stroud CRNP [address] [place] [address] Scheduled Procedures Name Priority Associated Diagnoses Date/Ti [...] Additional history exists CKD PHOS USE SMARTSET 52877 05/17/2025 12/2 07/2023, 05/16/2024, 05/15/2024, Additional history exists CKD HGB USE SMARTSET 15314 05/18/202505/18, 05/12/2024, 05/11/2024, Additional history exists DTap/Tdap [...] this encounter Medical Devices Implanted Type Area Gaming Associate Device Identifier Shelf Expiration Date Model / Serial / Lot Stent 7x40 Precise [id number] - [id number] Implanted:Qty : 1 on 05/09/2024 by Crispin Nelson MD at [place] [facility] [place] Left: Carotid [facility] [id number] 01/23/2026 [id number] / / [id number] documented as of this encounter Advance Directives Documents on File Type Date Recorded Patient Net Applications Developer Expl anation Advance Directives and Living Will 05/18/2024 signed on 10/02/2022 ADVANCE DIRECTIVE / LIVING WILL * No Code (Latest Code Status on File) Date Activated Date Inactivated Comments 05/09/2024 8:31 AM 05/17/2024 2:15 PM This order reflects the patients wishes and were consensually agreed upon. Question Answer Comments Discussion of Advance Direct kade occurred with: Power of Lockstitch Binder/Patient Net Applications Developer Does the patient have a Living Will? Yes, in sherrell rt and reviewed as current Does the patient have Health Care Power of Lockstitch Binder? Yes, in chart and reviewed as current [...] Advance Direct kade occurred with: Power of Lockstitch Binder/Patient Net Applications Developer Does the patient have Health Care Power of Lockstitch Binder? Yes, in chart and reviewed as current Intubation? No Cardiac Compressions? No Defibrillation? No Synchronized Cardioversion? No External Pacemaker? No Cardiac Drugs? No Care Teams Editor Sound Relationship Specialty Start Date End Date Art Cavazos DO [address] [place] [address] PCP - General Internal Medicine 11/19/23 documented as of this encounter
--- OUTSIDE RECORDS SUMMARY | 2024-05-19 12:59 | External Medical Summary | Summary of Care ---
Author Name Unknown Organization [facility] Address [address] [place] [address] Phone [phone] Care Team Providers Care Riveter Hand Name Role Phone Art Cavazos DO Primary Care Provider [phone] Encounter Details Date Type Department Care Team (Late st Contact Info) Description 05/18/2024 Telephone [facility], [place] [address] [place] [address] Aster Shrestha, STANISLAV [address] [place], [place] [phone] Allergies Active Allergy Reactions Criticality Noted Date Comments Amoxicillin Fever,Rash Medium 12/29/2013 documented as of this encounter (statuses as of 05/18/2024) Medications Kewego SYSTEM W/DEVICE KITIndications: DM type 2, goal [...] goal of less than 7.0% ([facility]) Use to test sugars once daily 100 Each 3 2 Active Vitamin D-400 10 MCG (400 UNIT) Oral Tablet (cholecalcifero l (VIT D3))Indications :Vitamin D deficiency Take 2 Tablets by mouth daily. 120 Tablet 3 3 Active OneTouch Ultra In Vitro Strip (Glucose Blood)Indicatio ns:Type 2 diabetes mellitus with stage 3a chronic kidney disease, without long-term current use of insulin ([facility]) TEST 1 TO 2 TIMES DAILY. [...] long-term current use of insulin ([facility]) Take 1 Tablet by mouth in [...] Encounter - Aster Shrestha OSA - 05/18/2024 11:09 AM EST Assigned to Care Transition documented in this encounter Plan of Treatment Upcoming Encounters Date Type Department Care Team (Late st Contact Info) Description 05/24/2024 1:40 PM EST Office Visit Family [facility] 65 [facility] 293 [facility] [place] [phone] Art Cavazos, [address] [place] [address] 05/31/2024 11:00 AM EST Therapy Neuropsychology [facility] 200 [facility] [place] [address] Enrique Kay, PhD 200 [place] [address] 06/16/2024 12:30 PM EST Telemedicine Neurosurgery, [place] [address] [place] [address] Crispin Nelson MD [address] [place] [address] 07/09/2024 3:00 PM EST [facility]med[facility] [address] [place] [phone] Jose Ramos MD [address] [place] [address] [facility] [address] [place] [address] 08/02/2024 1:00 PM EDT Office Visit [facility] 65 [facility] 293 [facility] [place] [phone] Art Cavazos, DO [address] [place] [address] 10/15/2024 2:00 PM EDT Nurse Only Family Practice 65 [facility], [place] [address] [place] [address] Sonali Echeverria, RITCHIE [address] [place] [address] 11/01/2024 2:20 PM EDT Office Visit Nephrology, Quiana Lundberg 200 [facility] [place] [address] Baldo Mackey MD 200 [facility] [place] [address] 12/03/2024 2:00 PM EDT Office Visit Rheumatology [facility] [address] [place] [address] Sarah Stroud CRNP [address] [place] [address] Scheduled Procedures Name Priority Associated Diagnoses Date/Ti [...] 10/09/2024 10/10/2023, 10/10/19 24 HbA1c 11/07/2024 05/09/2024, 1110/2023, 11/19/2023, Additional history exists GFR 11/16/2024 05/18/2024, 04/26, 05/16/2024, Additional history exists Diabetic Foot Exam 03/31/2025 03/31/2024, 1 , 03/07/2022, Additional history exists CKD PHOS USE SMARTSET 50013 05/17/2025 12/2 07/2023, 05/16/2024, 05/15/2024, Additional history exists CKD HGB USE SMARTSET 81285 05/18/202505/18, 05/12/2024, 05/11/2024, Additional history exists DTap/Tdap [...] this encounter Medical Devices Implanted Type Area Plate Gauger Device Identifier Shelf Expiration Date Model / Serial / Lot Stent 7x40 Precise [id number] - [id number] Implanted:Qty : 1 on 05/09/2024 [place] [facility] [place]: Carotid [facility] [place] [id number] 01/23/2026 [id number] / / [id number] documented as of this encounter Advance Directives Documents on File Type Date Recorded Patient Fiber Locking Supervisor Expl anation Advance Directives and Living Will 05/18/2024 signed on 10/02/2022 ADVANCE DIRECTIVE / LIVING WILL * No Code (Latest Code Status on File) Date Activated Date Inactivated Comments 05/09/2024 8:31 AM 05/17/2024 2:15 PM This order reflects the patients wishes and were consensually agreed upon. Question Answer Comments Discussion of Advance Direct kade occurred with: Power of Pigment Weigher/Patient Fiber Locking Supervisor Does the patient have a Living Will? Yes, in sherrell rt and reviewed as current Does the patient have Health Care Power of Pigment Weigher? Yes, in chart and reviewed as current [...] Advance Direct kade occurred with: Power of Pigment Weigher/Patient Fiber Locking Supervisor Does the patient have Health Care Power of Pigment Weigher? Yes, in chart and reviewed as current Intubation? No Cardiac Compressions? No Defibrillation? No Synchronized Cardioversion? No External Pacemaker? No Cardiac Drugs? No Care Teams Riveter Hand Relationship Specialty Start Date End Date Art Cavazos DO [address] [place] [address] PCP - General Internal Medicine 11/19/23 documented as of this encounter
--- OUTSIDE RECORDS SUMMARY | 2024-05-19 12:59 | External Medical Summary | Summary of Care ---
Author Name Unknown Organization [facility] Address [address] [place] [address] Phone [phone] Care Team Providers Care Break Out Worker Name Role Phone Art Cavazos DO Primary Care Provider [phone] Reason for Visit * Reason Onset Date Comments [facility]: Enrollment 05/18/2024 Encounter Details Date Type Department Care Team (Late st Contact Info) Description 05/18/2024 Telephone [facility], [place] [address] [place] [phone] Gill Jasmine, STANISLAV [address] [place] [address] [facility]: Enrollment Allergies Active Allergy Reactions Criticality Noted Date Comments Amoxicillin Fever,Rash Medium 12/29/2013 documented as of this encounter (statuses as of 05/18/2024) Medications UCROO SYSTEM W/DEVICE KITIndications: DM type 2, goal [...] Telephone Encounter - Gill Jasmine OSA - 05/18/2024 9:31 AM EST [facility] Enrollment 05/18 - attempt 2 - left a voicemail Looking at May 29 with Jose F Gaytan documented in this encounter Plan of Treatment Upcoming Encounters Date Type Department Care Team (Late st Contact Info) Description 05/24/2024 1:40 PM EST Office Visit [address] [place] [phone] Art Cavazos, [address] [place] [address] 05/31/2024 11:00 AM EST Therapy Neuropsychology Quiana Lundberg [place] [address] [place] [address] Enrique Kay, PhD 200 [facility] [place] [address] 06/16/2024 12:30 PM EST Telemedicine Neurosurgery, [place] [address] [place], [place] [phone] Crispin Nelson MD [address] [place] [address] 07/09/2024 3:00 PM EST Telemedicine Neurology Erasmo Sloan [place] [address] [place] [address] Jose Ramos MD [address] [place] [address] [facility] [address] [place] [address] 08/02/2024 1:00 PM EDT Office Visit [facility] 65 [facility] [address] [place] [phone] Art Cavazos DO 293 [place] [address] 10/15/2024 2:00 PM EDT Nurse Only Family Practice [address] [place] [address] [place] [phone] Sonali Echeverria, RITCHIE 293 [place] [address] 11/01/2024 2:20 PM EDT Office Visit Nephrology, [facility] 200 [facility] [place] [address] Baldo Mackey MD 200 [facility] [place] [address] 12/03/2024 2:00 PM EDT Office Visit Rheumatology [place] [id number] [place] [address] Sarah Stroud CRNP [address] [place] [address] Scheduled Procedures Name Priority Associated Diagnoses Date/Ti [...] 05/09/2024, 11/10/2023, 11/19/2023, Additional history exists GFR 11/16/2024 05/18/2024, 04/26, 05/16/2024, Additional history exists Diabetic Foot Exam 03/31/2025 03/31/2024, 1 , 03/07/2022, Additional history exists CKD PHOS USE SMARTSET 06206 05/17/202504/26, 05/16/2024, 05/15/2024, Additional history exists CKD HGB USE SMARTSET 17501 05/18/202505/18, 05/12/2024, 05/11/2024, Additional history exists DTap/Tdap [...] this encounter Medical Devices Implanted Type Area Certifed Refrigeration Operator Device Identifier Shelf Expiration Date Model / Serial / Lot Stent 7x40 Precise [id number] - [id number] Implanted:Qty : 1 on 05/09/2024 by Crispin Nelson MD at [place] [facility] [place] Left: Carotid [employer] [facility] [id number] 01/23/2026 [id number] / / [id number] documented as of this encounter Advance Directives * No Code (Latest Code Status on File) Date Activated Date Inactivated Comments 05/09/2024 8:31 AM 05/17/2024 2:15 PM This order reflects the patients wishes and were consensually agreed upon. Question Answer Comments Discussion of Advance Direct kade occurred with: Power of Protection Consultant/Patient Associate Professor Does the patient have a Living Will? Yes, in sherrell rt and reviewed as current Does the patient have Health Care Power of Protection Consultant? Yes, in chart and reviewed as current [...] Advance Direct kade occurred with: Power of Protection Consultant/Patient Associate Professor Does the patient have Health Care Power of Protection Consultant? Yes, in chart and reviewed as current Intubation? No Cardiac Compressions? No Defibrillation? No Synchronized Cardioversion? No External Pacemaker? No Cardiac Drugs? No Care Teams Break Out Worker Relationship Specialty Start Date End Date Art Cavazos DO [address] [place] [address] PCP - General Internal Medicine 11/19/23 documented as of this encounter
--- NOTE | 2024-05-19 17:17 | Hospitalist Progress Note ---
Date of Service May 19, 2024 Assessment & Plan (1) Gross hematuria: (2) AMS (altered mental status): Plan 84 y/o male with recent acute CVA, DM2, CKD3, MCI, HTN, GERD, dyslipidemia, and other history as outlined below who presented to the ED 05/18 from [facility] with increased lethargy. Of note, pt was given additional dose of Seroquel last night due to agitation. Review of records from [facility] revealed issues with hyperactivity delirium while admitted there, mostly seems to have issues at night. He is being managed for the following: Acute drug-induced confusion: Recent cerebrovascular accident: has aphasia from recent CVA, speech has evaluated at [facility]. Soft, bite-size diet. HOB at 90 degrees with any oral intake including medications. Supervision and assistance with meals. Admitting CT head showed subacute infarcts similar in distribution areas of infarct seen on MRI of 05/10/24 at [facility] on EPIC. Suspect confusion due to medication, not progression of CVA. By 05/19 AM, patient back to his baseline mentation. Decreased at bedtime Seroquel dose to 25 Mg at bedtime and continue to monitor mental status. Continue DAPT and home statin. Plan for return to [facility] for ongoing rehab. Mild dehydration vs Acute on chronic kidney failure: Does not quite qualify for acute kidney injury definition. Baseline creatinine around 1.5, admitting creatinine of 1.85. Creatinine resolved back down to 1.56. Continue to monitor. Labs in AM. Status post IV fluid, currently chlorthalidone and olmesartan are on hold. Hematuria: Patient noted to have vernon hematuria and condom cath 05/18. 05/18 UA reviewed. 05/18 CTAP reviewed - Redemonstration of stable left renal cortical cyst, 8.5 cm. No bladder wall thickening, blood clot burden within the bladder noted. Urology evaluated, currently on CBI. Status post cystoscopy 05/19. Recommends antibiotic while pt is on cbi. N.p.o. midnight until further urological evaluation in AM. Follow-up with urology as an outpatient. Ciprofloxacin initiated 05/19. EKG for qtc monitoring. Other chronic medical conditions: Continue with/resume home meds as when able. T2DM: Chronic, stable. Sliding scale insulin. HTN: Chronic, stable. Holding chlorthalidone and olmesartan due to MICHAEL concern. Continue to monitor. As needed blood pressure medication. CODE STATUS: DNR/DNI DVT prophylaxis: Subcu heparin Dispo: Pending urology eval.Likely DC back to [facility] in next 1 to 2 days. Admission and Anticipated Discharge Date Admission Date: May 18, 2024 Subjective Patient was seen and examined at bedside. Patient was lying in bed, on room air, NAD. Per RN, patient improving mentation mccullough and back to his baseline according to patient's granddaughter who visited him. Patient refused his breakfast in the morning. Patient is trying to remove his Dominguez catheter and hence we will put him on soft mittens. No new acute medical issues overnight. Bowel movement 2 so far. Patient denies pain, ROS not able in detail due to cognition status. Blood pressure elevated during the day, as needed blood pressure medications in place. Physical Exam Physical Exam: General: Elderly man in no distress Eyes: PERRL, conjunctivae normal, not pale, anicteric sclerae, EOM intact bilaterally ENMT: External ear and nose normal, oropharynx normal Respiratory: Normal respiratory effort, no respiratory distress, lungs clear to auscultation, no crackles and no wheezes Cardiovascular: RRR S1 S2 Gastrointestinal (Abdomen): Abdomen is not distended, soft, non-tender to palpation, no guarding, no palpable hepatosplenomegaly, normal bowel sounds Musculoskeletal: No pedal edema Skin: Maculopapular rash on trunk. Multiple areas of ecchymoses/bruise in lower right groin, legs Neurologic: Awake, alert, +expressive aphasia. Follows simple commands. Right hemiparesis noted. CBI running, very light pinkish tinge to collection noted. Results & Data Results & Data Vital Signs (Past 12 Hours) Vital Signs Temp Pulse Pulse Resp BP Pulse Ox O2 Del Method 05/19/24 15:30 36.9 C 97 H 18 163/100 H 96 Room Air 05/19/24 14:27 98 H 05/19/24 11:48 102 H 169/90 H 05/19/24 11:15 36.9 C 103 H 18 200/105 H 95 Room Air 05/19/24 07:30 36.5 C 70 16 146/76 H 93 Room Air 05/19/24 07:30 Room Air 05/19/24 07:00 64 (2) AMS (altered mental status) Altered mental status type: unspecified Qualified Code(s): R41.82 - Altered mental status, unspecified
[2024-05-19] MEDS: LABETALOL HCL IV 5 MG/ML 20ML IV PRN (19:21)
[2024-05-19] MEDS: traMADol HCL 50 MG TABLET PO STA (20:03)
[2024-05-19] MEDS: QUEtiapine FUMARATE 25 MG TABLET PO SCH (20:54)
[2024-05-19] MEDS: CIPROFLOXACIN 500 MG TAB PO SCH (20:54)
[2024-05-20 06:52] LABS: Hemoglobin 14.9 g/dl (14.0-18.0); Mean Corpuscular Hemoglobin 29.4 pg (25.0-34.0); Mean Corpuscular Hgb Conc 33.9 g/dL (32.0-36.0); Mean Platelet Volume 10.1 fL (9.4-12.4); Platelet Count 334 K/uL (130-400); RDW Coefficient of Variation 13.6 % (11.5-14.5); RDW Standard Deviation 43.8 fL (36.4-46.3); Red Blood Count 5.06 M/uL (4.70-6.10); White Blood Count 13.54 K/ul (4.8-10.8)
[2024-05-20 07:11] LABS: BUN Creatinine Ratio 28.9 (10-20); Creatinine Clr Calc Pharmacy 39.7 ml/min; Potassium 4.1 mmol/L (3.5-5.1)
[2024-05-20 07:12] LABS: Calcium 9.4 mg/dl (8.6-10.3); Magnesium 1.8 mg/dl (1.7-2.4); Phosphorus 3.3 mg/dl (2.5-4.9)
--- NOTE | 2024-05-20 07:46 | Urology Progress Note ---
Date of Service May 20, 2024 Assessment & Plan (1) Gross hematuria: Plan - Afebrile with stable vitals at present - Labs reviewed - WBC 13.54, Hemoglobin 14.9, Creatinine downtrending to 1.49 today. Continue to trend. - Callaway draining clear yellow on slow CBI - OK to clamp CBI this morning and monitor, nursing aware. - No plan for intervention. OK for diet. - Continue antibiotics - Maintain callaway catheter. Can hand irrigate as needed for clots, retention, suprapubic pain. - Anticoagulation per primary team. Urology can manage hematuria as needed. - Patient will need hematuria workup as an outpatient. - Urology to follow. Admission and Anticipated Discharge Date Admission Date: May 18, 2024 Subjective Pt seen at bedside this AM Awake and resting in bed on arrival No acute distress Nursing at bedside Hx expressive aphasia, can express yes/no to questions Callaway draining clear yellow urine with CBI on slow drip Review of Systems Constitutional: as per Subjective / HPI Genitourinary: + as per Subjective / HPI Physical Exam Constitutional: no acute distress Restless Respiratory: no respiratory distress Neurologic: awake Psychiatric: Orientation: alert +expressive aphasia Genitourinary: Callaway intact Results & Data Vital Signs (Past 12 Hours) Vital Signs Temp Pulse Pulse Resp BP BP Pulse Ox 05/20/24 07:38 36.4 C L 90 18 125/70 93 05/20/24 07:00 90 05/20/24 03:49 36.6 C 97 H 18 136/66 97 05/19/24 23:23 36.6 C 81 18 120/77 94 05/19/24 22:29 05/19/24 21:59 88 05/19/24 20:09 87 184/104 H O2 Del Method 05/20/24 07:38 Room Air 05/20/24 07:00 05/20/24 03:49 Room Air 05/19/24 23:23 Room Air 05/19/24 22:29 Room Air 05/19/24 21:59 05/19/24 20:09 PG Care Time/CCT Total # of Minutes Spent Total Time Spent with Patient: Total time spent is greater than 50% in coordination of care (as documented) at patient's floor/unit and/or counseling patient: Coding Level of Care Code 62269 SUB INP/OBS CARE 2/35MIN Diagnoses Gross hematuria R31.0
[2024-05-20] MEDS: QUEtiapine FUMARATE 25 MG TABLET PO SCH (09:09)
--- NOTE | 2024-05-20 12:44 | Electrocardiogram Report ---
Test Reason : Blood Pressure : */* mmHG Vent. Rate : 86 BPM Atrial Rate : 86 BPM P-R Int : 164 ms QRS Dur : 94 ms QT Int : 386 ms P-R-T Axes : 86 15 130 degrees QTcB Int : 461 ms Poor data quality, interpretation may be adversely affected Normal sinus rhythm Nonspecific ST and T wave abnormality Abnormal ECG When compared with ECG of 18-May-2024 11:25, Nonspecific T wave abnormality, worse in Lateral leads Confirmed by Sathya Jean ([id number]) on 05/20/2024 12:43:59 PM Referred By: REFERRED SELF Confirmed By: Sathya Jean
[2024-05-20] MEDS: CALAMINE/PRAMOXINE LOTION 180 APPLN/180 ML BTL EXT PRN (14:37)
--- NOTE | 2024-05-20 16:14 | Hospitalist Progress Note ---
Date of Service May 20, 2024 Assessment & Plan (1) Gross hematuria: (2) AMS (altered mental status): Plan 84 y/o male with recent acute CVA, DM2, CKD3, MCI, HTN, GERD, dyslipidemia, and other history as outlined below who presented to the ED 05/18 from [facility] with increased lethargy. Of note, pt was given additional dose of Seroquel last night due to agitation. [place] [facility] [place] with hyperactivity delirium while admitted there, mostly seems to have issues at night. He is being managed for the following: Acute drug-induced confusion: Recent cerebrovascular accident: has aphasia from recent CVA, speech has evaluated [place] [facility] Soft, bite-size diet. HOB at 90 degrees with any oral intake including medications. Supervision and assistance with meals. Admitting CT head showed subacute infarcts similar in distribution areas of infarct seen on MRI of 05/10/24 [place] [facility] [place]. Suspect confusion due to medication, not progression of CVA. By 05/19 AM, patient back to his baseline mentation. Decreased bedtime Seroquel dose to 25 Mg at bedtime/c/w am Seroquel and continue to monitor mental status. Continue DAPT and home statin. Plan for return to [facility] for ongoing rehab. Needed one to one observation in AM, appears calm later in the morning. Mild dehydration vs Acute on chronic kidney failure: Does not quite qualify for acute kidney injury definition. Baseline creatinine around 1.5, admitting creatinine of 1.85. Creatinine resolved back down to 1.56. Continue to monitor. Labs in AM. Status post IV fluid, currently chlorthalidone and o lmesartan are on hold - gradually resume these meds w/ bmp monitoring. Hematuria: Patient noted to have vernon hematuria and condom cath 05/18. 05/18 UA reviewed. 05/18 CTAP reviewed - Redemonstration of stable left renal cortical cyst, 8.5 cm. No bladder wall thickening, blood clot burden within the bladder noted. Urology evaluated, currently CBI clamped. Status post cystoscopy 05/19. Recommends antibiotic to continue.Follow-up with urology as an outpatient. Ciprofloxacin initiated 05/19. daily EKG for qtc monitoring. Other chronic medical conditions: Continue with/resume home meds as when able. T2DM: Chronic, stable. Sliding scale insulin. HTN: Chronic, stable. Holding chlorthalidone and olmesartan due to MICHAEL concern. Continue to monitor. As needed blood pressure medication. CODE STATUS: DNR/DNI DVT prophylaxis: Subcu heparin Dispo: [facility] next 1 to 2 days. Admission and Anticipated Discharge Date Admission Date: May 18, 2024 Subjective Patient was seen and examined at bedside. Patient was lying in bed, on room air, NAD. Patient's mentation seems to have improved and is at baseline. Per RN, patient was agitated and hitting care providers in the morning, was briefly on lower extremity restraint, later on one-to-one observation, patient has calmed down by later morning. Patient is eating okay, CBI has been clamped. Patient denies pain, ROS not able in detail due to cognition status. Physical Exam Physical Exam: General: Elderly man in no distress Eyes: PERRL, conjunctivae normal, not pale, anicteric sclerae, EOM intact bilaterally ENMT: External ear and nose normal, oropharynx normal Respiratory: Normal respiratory effort, no respiratory distress, lungs clear to auscultation, no crackles and no wheezes Cardiovascular: RRR S1 S2 Gastrointestinal (Abdomen): Abdomen is not distended, soft, non-tender to palpa tion, no guarding, no palpable hepatosplenomegaly, normal bowel sounds Musculoskeletal: No pedal edema Skin: Maculopapular rash on trunk. Multiple areas of ecchymoses/bruise in lower right groin, legs Neurologic: Awake, alert, +expressive aphasia. Follows simple commands. Right hemiparesis noted. CBI Clamped, clear yellow urine collection in bag noted. Results & Data Results & Data Vital Signs (Past 12 Hours) Vital Signs Temp Pulse Pulse Resp BP Pulse Ox O2 Del Method 05/20/24 14:00 97 H 05/20/24 07:38 36.4 C L 90 18 125/70 93 Room Air 05/20/24 07:35 Room Air 05/20/24 07:00 90 (2) AMS (altered mental status) Altered mental status type: unspecified Qualified Code(s): R41.82 - Altered mental status, unspecified
[2024-05-20] MEDS: HEPARIN SOD 5,000 UNIT/0.5 ML VIAL SQ SCH (20:35)
[2024-05-20] MEDS: MoRPHine SULFATE 2 MG/ML CARP IV STA (22:20)
[2024-05-21] MEDS: oxyCODONE HCL IR 5 MG TAB (IMMEDIATE RELEASE) PO STA (01:48)
--- NOTE | 2024-05-21 09:16 | Urology Progress Note ---
Date of Service May 21, 2024 Assessment & Plan (1) Gross hematuria: Plan 84-year-old male admitted to the hospital on 05/18/2024 for drug-induced confusion and hx recent stroke. Patient was reportedly noted to have hematuria in his condom catheter and a CT scan was ordered showing clot within the bladder. A 22 [place] three-way catheter was scoped in at bedside by Dr. rCaig on 05/19. The catheter irrigated appropriately with no obvious clot and CBI was initiated. - Pt afebrile with stable vitals at present. - Labs reviewed - WBC 12.50, Hemoglobin 14.0, Creatinine 1.85. Continue to trend. - He continues on oral Ciprofloxacin. - CBI clamped 05/20. Pt required manual irrigation of the catheter by nursing staff yesterday evening 05/20. - Dominguez currently draining yellow urine. Pt remains off CBI. No hematuria/clots were visualized at time of exam. - Maintain Dominguez catheter and continue to monitor. OK to hand irrigate as needed for obstruction/clots, retention, or suprapubic pain. - Anticoagulation per primary team. Urology can manage hematuria as needed. - Patient will need hematuria workup as an outpatient. Will send message to our office to arrange follow-up. - Urology will follow peripherally. Please call with any further questions/concerns or changes in patient status. Admission and Anticipated Discharge Date Admission Date: May 20, 2024 Subjective Pt seen at bedside this AM Awake and resting in bed on arrival No acute distress Nursing at bedside - 1:1 sitter Hx expressive aphasia, can express yes/no to questions Dominguez draining clear yellow urine Dominguez catheter required manual irrigation by nursing staff yesterday evening. Per nursing, some clots were removed with irrigation and the catheter was draining well thereafter Review of Systems Constitutional: as per Subjective / HPI Genitourinary: + as per Subjective / HPI Physical Exam Constitutional: no acute distress Respiratory: no respiratory distress Neurologic: awake Psychiatric: Orientation: alert +expressive aphasia Genitourinary: Dominguez intact Results & Data Vital Signs (Past 12 Hours) Vital Signs Temp Pulse Pulse Pulse Resp BP Pulse Ox 05/21/24 07:40 75 05/21/24 07:23 36.6 C 70 16 111/67 98 05/21/24 04:06 36.5 C 77 20 118/72 96 05/21/24 03:34 36.5 C 80 18 96/59 L 94 05/20/24 23:28 36.7 C 95 H 20 169/90 H 93 05/20/24 22:35 05/20/24 21:52 104 H O2 Del Method O2 Flow Rate 05/21/24 07:40 05/21/24 07:23 Room Air 05/21/24 04:06 Oxymask 4 05/21/24 03:34 Room Air 05/20/24 23:28 Room Air 05/20/24 22:35 Room Air 05/20/24 21:52 PG Care Time/CCT Total # of Minutes Spent Total Time Spent with Patient: Total time spent is greater than 50% in coordination of care (as documented) at patient's floor/unit and/or counseling patient: Coding Level of Care Code 70660 SUB INP/OBS CARE 235MIN Diagnoses Gross hematuria R31.0
[2024-05-21 09:20] LABS: Hematocrit (blood only) 41.1 % (42.0-52.0); Mean Corpuscular Hemoglobin 29.9 pg (25.0-34.0); Mean Corpuscular Hgb Conc 34.1 g/dL (32.0-36.0); Mean Corpuscular Volume 87.6 fL (80.0-100.0); Mean Platelet Volume 10.2 fL (9.4-12.4); Platelet Count 311 K/uL (130-400); RDW Coefficient of Variation 13.9 % (11.5-14.5); RDW Standard Deviation 44.3 fL (36.4-46.3); Red Blood Count 4.69 M/uL (4.70-6.10)
[2024-05-21 09:35] LABS: BUN Creatinine Ratio 28.1 (10-20); Calcium 9.4 mg/dl (8.6-10.3); Creatinine Clr Calc Pharmacy 31.9 ml/min; Phosphorus 4.7 mg/dl (2.5-4.9); Potassium 4.4 mmol/L (3.5-5.1)
[2024-05-21] MEDS: LOSARTAN POTASSIUM 50 MG TAB PO SCH (13:10)
--- NOTE | 2024-05-21 15:50 | Electrocardiogram Report ---
Test Reason : Blood Pressure : */* mmHG Vent. Rate : 73 BPM Atrial Rate : 73 BPM P-R Int : 164 ms QRS Dur : 96 ms QT Int : 406 ms P-R-T Axes : 74 41 115 degrees QTcB Int : 447 ms Normal sinus rhythm Nonspecific T wave abnormality Abnormal ECG When compared with ECG of 20-May-2024 05:57, No significant change was found Confirmed by Sathya Jean ([id number]) on 05/21/2024 3:49:57 PM Referred By: REFERRED SELF Confirmed By: Sathya Jean
--- NOTE | 2024-05-21 15:50 | Hospitalist Progress Note ---
Date of Service May 21, 2024 Assessment & Plan (1) Gross hematuria: (2) AMS (altered mental status): Plan 84 y/o male with recent acute CVA, DM2, CKD3, MCI, HTN, GERD, dyslipidemia, and other history as outlined below who presented to the ED 05/18 from [facility] with increased lethargy. Of note, pt was given additional dose of Seroquel last night due to agitation. [place] [facility] [place] with hyperactivity delirium while admitted there, mostly seems to have issues at night. He is being managed for the following: Acute drug-induced confusion: Recent cerebrovascular accident: has aphasia from recent CVA, speech has evaluated at [facility]. Soft, bite-size diet. HOB at 90 degrees with any oral intake including medications. Supervision and assistance with meals. Admitting CT head showed subacute infarcts similar in distribution areas of infarct seen on MRI of 05/10/24 at [facility] [place]. Suspect confusion due to medication, not progression of CVA. By 05/19 AM, patient back to his baseline mentation. Decreased bedtime Seroquel dose to 25 Mg at bedtime/c/w am Seroquel and continue to monitor mental status. Continue DAPT and home statin. Plan for return to [facility] for ongoing rehab. Needed one to one observation in AM, will transition to q15 min check if able. Mild dehydration vs Acute on chronic kidney failure: Does not quite qualify for acute kidney injury definition. Baseline creatinine around 1.5, admitting creatinine of 1.85. Creatinine resolved back down to 1.56. Continue to monitor. Labs in AM. Status post IV fluid, currently chlorthalidone and olmesartan are on hold - gradually resume these meds w/ bmp monitoring. Cr slightly up today, will monitor in AM. Hematuria: Patient noted to have vernon hematuria and condom cath 05/18. 05/18 UA reviewed. 05/18 CTAP reviewed - Redemonstration of stable left renal cortical cyst, 8.5 cm. No bladder wall thickening, blood clot burden within the bladder noted. Urology evaluated, currently CBI clamped. Status post cystoscopy 05/19. Recommends antibiotic to continue.Follow-up with urology as an outpatient. Ciprofloxacin initiated 05/19. will do 5 day course. daily EKG for qtc monitoring. Other chronic medical conditions: Continue with/resume home meds as when able. T2DM: Chronic, stable. Sliding scale insulin. HTN: Chronic, stable. Holding chlorthalidone and olmesartan due to MICHAEL concern. Continue to monitor. As needed blood pressure medication. CODE STATUS: DNR/DNI DVT prophylaxis: Subcu heparin Dispo: Lik[facility] DC [facility] in next 1 to 2 days. Admission and Anticipated Discharge Date Admission Date: May 20, 2024 Subjective Patient was seen and examined at bedside. Patient was lying in bed, on room air, NAD. Pt sleepy, no agitation per sitter at bedside. Ros n/a d/t cognition status. Physical Exam Physical Exam: General: Elderly man in no distress Eyes: PERRL, conjunctivae normal, not pale, anicteric sclerae ENMT: External ear and nose normal, oropharynx normal Respiratory: Normal respiratory effort, no respiratory distress, lungs clear to auscultation, no crackles and no wheezes Cardiovascular: RRR S1 S2 Gastrointestinal (Abdomen): Abdomen is not distended, soft, non-tender to palpation, no guarding, no palpable hepatosplenomegaly, normal bowel sounds Musculoskeletal: No pedal edema Skin: Maculopapular rash on trunk. Multiple areas of ecchymoses/bruise in lower right groin, legs Neurologic: Awake, alert, +expressive aphasia. Follows simple commands. Right hemiparesis noted. CBI Clamped, yellow urine collection in bag noted. Results & Data Results & Data Vital Signs (Past 12 Hours) Vital Signs Temp Pulse Pulse Resp BP Pulse Ox O2 Del Method 05/21/24 11:41 36.5 C 77 18 114/70 94 Room Air 05/21/24 08:00 Room Air 05/21/24 07:40 75 05/21/24 07:23 36.6 C 70 16 111/67 98 Room Air 05/21/24 04:06 36.5 C 77 20 118/72 96 Oxymask O2 Flow Rate 05/21/24 11:41 05/21/24 08:00 05/21/24 07:40 05/21/24 07:23 05/21/24 04:06 4 (2) AMS (altered mental status) Altered mental status type: unspecified Qualified Code(s): R41.82 - Altered mental status, unspecified
[2024-05-21] MEDS: ACETAMINOPHEN 325 MG TAB PO SCH (18:20)
[2024-05-21 20:48] LABS: Basophils % (auto) 0.9 %; Eosinophils # (auto) 0.02 K/uL (0.00-0.50); Eosinophils % (auto) 0.2 %; Hematocrit (blood only) 40.9 % (42.0-52.0); Hemoglobin 13.8 g/dl (14.0-18.0); Immature Granulocytes # (auto) 0.05 K/uL (0.01-0.20); Immature Granulocytes % (auto) 0.4 %; Lymphocytes % (auto) 14.7 %; Mean Corpuscular Hemoglobin 29.4 pg (25.0-34.0); Mean Corpuscular Hgb Conc 33.7 g/dL (32.0-36.0); Mean Platelet Volume 9.9 fL (9.4-12.4); Monocytes # (auto) 0.88 K/uL (0.11-0.59); Monocytes % (auto) 7.6 %; Neutrophils # (auto) 8.83 K/uL (1.40-6.50); Neutrophils % (auto) 76.2 %; Platelet Count 315 K/uL (130-400); RDW Coefficient of Variation 13.9 % (11.5-14.5); RDW Standard Deviation 44.6 fL (36.4-46.3); White Blood Count 11.58 K/ul (4.8-10.8)
[2024-05-21 21:04] LABS: Albumin Globulin Ratio 1.1 (0.9-2); Albumin Level 3.7 gm/dl (3.4-5.0); BUN Creatinine Ratio 25.1 (10-20); Bilirubin,Total 0.7 mg/dl (0.2-1.0); Calcium 9.3 mg/dl (8.6-10.3); Creatinine Clr Calc Pharmacy 23.5 ml/min; Globulin 3.5 gm/dl (2.5-4.0); Total Protein 7.2 gm/dl (6.0-8.3)
[2024-05-22 07:50] LABS: Hematocrit (blood only) 39.9 % (42.0-52.0); Hemoglobin 13.3 g/dl (14.0-18.0); Mean Corpuscular Hemoglobin 29.3 pg (25.0-34.0); Mean Corpuscular Hgb Conc 33.3 g/dL (32.0-36.0); Mean Corpuscular Volume 87.9 fL (80.0-100.0); Mean Platelet Volume 10.3 fL (9.4-12.4); Platelet Count 304 K/uL (130-400); RDW Coefficient of Variation 14.1 % (11.5-14.5); RDW Standard Deviation 45.3 fL (36.4-46.3); Red Blood Count 4.54 M/uL (4.70-6.10); White Blood Count 10.69 K/ul (4.8-10.8)
[2024-05-22 08:05] LABS: BUN Creatinine Ratio 24.9 (10-20); Calcium 9.1 mg/dl (8.6-10.3); Potassium 4.1 mmol/L (3.5-5.1)
[2024-05-22] MEDS: SODIUM CHLORIDE 0.9% 1,000 ML IV SCH (11:37)
--- NOTE | 2024-05-22 11:40 | Electrocardiogram Report ---
Test Reason : Blood Pressure : */* mmHG Vent. Rate : 64 BPM Atrial Rate : 64 BPM P-R Int : 168 ms QRS Dur : 94 ms QT Int : 438 ms P-R-T Axes : 10 8 59 degrees QTcB Int : 451 ms Normal sinus rhythm Normal ECG When compared with ECG of 21-May-2024 05:44, Nonspecific T wave abnormality, improved in Lateral leads Confirmed by Abbi Foster (Sheldon) on 05/22/2024 11:39:48 AM Referred By: REFERRED SELF Confirmed By: Abbi Foster
--- NOTE | 2024-05-22 15:58 | Hospitalist Progress Note ---
Date of Service May 22, 2024 Assessment & Plan (1) Gross hematuria: (2) AMS (altered mental status): Plan 84 y/o male with recent acute CVA, DM2, CKD3, MCI, HTN, GERD, dyslipidemia, and other history as outlined below who presented to the ED 05/18 from [facility] with increased lethargy. Of note, pt was given additional dose of Seroquel last night due to agitation. Review of records from [facility] [place] revealed issues with hyperactivity delirium while admitted there, mostly seems to have issues at night. He is being managed for the following: Acute drug-induced confusion: Recent cerebrovascular accident: has aphasia from recent CVA, speech has evaluated at [facility] [place]. Soft, bite-size diet. HOB at 90 degrees with any oral intake including medications. Supervision and assistance with meals. Admitting CT head showed subacute infarcts similar in distribution areas of infarct seen on MRI of 05/10/24 at [facility] [place] on EPIC. Suspect confusion due to medication, not progression of CVA. By 05/19 AM, patient back to his baseline mentation. Decreased bedtime Seroquel dose to 25 Mg at bedtime/c/w am Seroquel and continue to monitor mental status. Continue DAPT and home statin. Plan for return to [facility] for ongoing rehab. Delirium precautions. Mild dehydration vs Acute on chronic kidney failure: Does not quite qualify for acute kidney injury definition. Baseline creatinine around 1.5, admitting creatinine of 1.85. Creatinine resolved back down to 1.56. Now up again to 2.57, start ivf, labs in AM, encourage PO fluid intake. hold losartan, c/t hold chlorthalidone. labs in AM. Hematuria: Patient noted to have vernon hematuria and condom cath 05/18. 05/18 UA reviewed. 05/18 CTAP reviewed - Redemonstration of stable left renal cortical cyst, 8.5 cm. No bladder wall thickening, blood clot burden within the bladder noted. Urology evaluated, currently CBI clamped. Status post cystoscopy 05/19. Recommends antibiotic to continue.Follow-up with urology as an outpatient. Ciprofloxacin initiated 05/19. will do 5 day course. daily EKG for qtc monitoring. Other chronic medical conditions: Continue with/resume home meds as when able. T2DM: Chronic, stable. Sliding scale insulin. HTN: Chronic, stable. Holding chlorthalidone and olmesartan due to MICHAEL concern. Continue to monitor. As needed blood pressure medication. CODE STATUS: DNR/DNI DVT prophylaxis: Subcu heparin Dispo: [facility] once renal fxn better. Admission and Anticipated Discharge Date Admission Date: May 20, 2024 Subjective Patient was seen and examined at bedside. Patient was lying in bed, on room air, NAD. Pt sleepy, appears confused. Ros n/a d/t cognition status. Physical Exam Physical Exam: General: Elderly man in no distress Eyes: PERRL, conjunctivae normal, not pale, anicteric sclerae ENMT: External ear and nose normal, oropharynx normal Respiratory: Normal respiratory effort, no respiratory distress, lungs clear to auscultation, no crackles and no wheezes Cardiovascular: RRR S1 S2 Gastrointestinal (Abdomen): Abdomen is not distended, soft, non-tender to palpation, no guarding, no palpable hepatosplenomegaly, normal bowel sounds Musculoskeletal: No pedal edema Skin: Maculopapular rash on trunk. Multiple areas of ecchymoses/bruise in lower right groin, legs Neurologic: Awake, alert, +expressive aphasia. Follows simple commands. Right hemiparesis noted. UC in situ, yellow urine collection in bag noted. Results & Data Results & Data Vital Signs (Past 12 Hours) Vital Signs Temp Pulse Pulse Resp BP BP Pulse Ox 05/22/24 15:37 36.8 C 97 H 18 105/69 97 05/22/24 14:50 85 05/22/24 11:18 36.3 C L 86 16 108/68 93 05/22/24 07:50 36.4 C L 65 16 132/78 94 05/22/24 07:18 62 05/22/24 04:10 36.4 C L 71 16 95/62 L 95 O2 Del Method 05/22/24 15:37 Room Air 05/22/24 14:50 05/22/24 11:18 Room Air 05/22/24 07:50 Room Air 05/22/24 07:18 05/22/24 04:10 Room Air (2) AMS (altered mental status) Altered mental status type: unspecified Qualified Code(s): R41.82 - Altered mental status, unspecified
[2024-05-23 06:38] LABS: Hematocrit (blood only) 39.9 % (42.0-52.0); Hemoglobin 13.6 g/dl (14.0-18.0); Mean Corpuscular Hemoglobin 29.3 pg (25.0-34.0); Mean Corpuscular Hgb Conc 34.1 g/dL (32.0-36.0); Mean Platelet Volume 10.1 fL (9.4-12.4); Platelet Count 326 K/uL (130-400); RDW Coefficient of Variation 13.4 % (11.5-14.5); RDW Standard Deviation 42.4 fL (36.4-46.3); Red Blood Count 4.64 M/uL (4.70-6.10); White Blood Count 9.79 K/ul (4.8-10.8)
[2024-05-23 06:58] LABS: BUN Creatinine Ratio 29.4 (10-20); Calcium 8.9 mg/dl (8.6-10.3); Creatinine Clr Calc Pharmacy 34.7 ml/min; Magnesium 1.7 mg/dl (1.7-2.4); Phosphorus 3.1 mg/dl (2.5-4.9); Potassium 3.9 mmol/L (3.5-5.1)
[2024-05-23] MEDS: CIPROFLOXACIN 500 MG TAB PO SCH (08:57)
[2024-05-23] MEDS: ADVANCED PROBIOTIC 625 MG CAPSULE PO SCH (08:57)
--- NOTE | 2024-05-23 15:37 | Hospitalist Progress Note ---
Date of Service May 23, 2024 Assessment & Plan (1) Gross hematuria: (2) AMS (altered mental status): Plan 84 y/o male with recent acute CVA, DM2, CKD3, MCI, HTN, GERD, dyslipidemia, and other history as outlined below who presented to the ED 05/18 from [facility] with increased lethargy. Of note, pt was given additional dose of Seroquel last night due to agitation. Review of records from [facility] [place] revealed issues with hyperactivity delirium while admitted there, mostly seems to have issues at night. He is being managed for the following: Acute drug-induced confusion: Recent cerebrovascular accident: has aphasia from recent CVA, speech has evaluated at [facility] [place]. Soft, bite-size diet. HOB at 90 degrees with any oral intake including medications. Supervision and assistance with meals. Admitting CT head showed subacute infarcts similar in distribution areas of infarct seen on MRI of 05/10/24 at [facility] [place] on EPIC. Suspect confusion due to medication, not progression of CVA. By 05/19 AM, patient back to his baseline mentation. Decreased bedtime Seroquel dose to 25 Mg at bedtime/c/w am Seroquel and continue to monitor mental status. Continue DAPT and home statin. Plan for return [facility] for [facility] re[facility]. Delirium precautions. Acute on chronic kidney failure: Baseline creatinine around 1.5, admitting creatinine of 1.85. Creatinine resolved back down to 1.56. Trended upto 2.57 05/22, started ivf, Cr today 1.7. labs in AM, encourage PO fluid intake. hold losartan, c/t hold chlorthalidone. Hematuria: Patient noted to have vernon hematuria and condom cath 05/18. 05/18 UA reviewed. 05/18 CTAP reviewed - Redemonstration of stable left renal cortical cyst, 8.5 cm. No bladder wall thickening, blood clot burden within the bladder noted. Urology evaluated, currently CBI clamped. Status post cystoscopy 05/19. Recommends antibiotic to continue.Follow-up with urology as an outpatient. Ciprofloxacin initiated 05/19. will do 5 day course. daily EKG for qtc monitoring. Other chronic medical conditions: Continue with/resume home meds as when able. T2DM: Chronic, stable. Sliding scale insulin. HTN: Chronic, stable. Holding chlorthalidone and olmesartan due to MICHAEL concern. Continue to monitor. As needed blood pressure medication. CODE STATUS: DNR/DNI DVT prophylaxis: Subcu heparin Dispo: [facility] as renal fxn better. Admission and Anticipated Discharge Date Admission Date: May 20, 2024 Subjective Patient was seen and examined at bedside. Patient was lying in bed, on room air, NAD. Pt alert, denies pain. Ros n/a d/t cognition status. Physical Exam Physical Exam: General: Elderly man in no distress Eyes: PERRL, conjunctivae normal, not pale, anicteric sclerae ENMT: External ear and nose normal, oropharynx normal Respiratory: Normal respiratory effort, no respiratory distress, lungs clear to auscultation, no crackles and no wheezes Cardiovascular: RRR S1 S2 Gastrointestinal (Abdomen): Abdomen is not distended, soft, non-tender to palpation, no guarding, no palpable hepatosplenomegaly, normal bowel sounds Musculoskeletal: No pedal edema Skin: Maculopapular rash on trunk. Multiple areas of ecchymoses/bruise in lower right groin, legs Neurologic: Awake, alert, +expressive aphasia. Follows simple commands. Right hemiparesis noted. UC in situ, yellow urine collection in bag noted. Results & Data Results & Data Vital Signs (Past 12 Hours) Vital Signs Temp Pulse Pulse Resp BP Pulse Ox O2 Del Method 05/23/24 11:17 36.6 C 94 H 18 189/70 H 95 Room Air 05/23/24 07:56 36.8 C 80 16 129/72 93 Room Air 05/23/24 07:20 72 (2) AMS (altered mental status) Altered mental status type: unspecified Qualified Code(s): R41.82 - Altered mental status, unspecified
--- NOTE | 2024-05-23 20:05 | Communication Note ---
Date of Service: May 23, 2024
[2024-05-23] MEDS: ACETAMINOPHEN 1,000 MG/100 ML VIAL IV STA (20:20)
[2024-05-23 21:00] LABS: Hematocrit (blood only) 41.7 % (42.0-52.0); Hemoglobin 14.3 g/dl (14.0-18.0)
[2024-05-24 07:19] LABS: Hematocrit (blood only) 41.5 % (42.0-52.0); Hemoglobin 14.1 g/dl (14.0-18.0); Mean Corpuscular Hemoglobin 29.7 pg (25.0-34.0); Mean Corpuscular Volume 87.6 fL (80.0-100.0); Mean Platelet Volume 10.2 fL (9.4-12.4); Platelet Count 383 K/uL (130-400); RDW Coefficient of Variation 13.2 % (11.5-14.5); RDW Standard Deviation 42.6 fL (36.4-46.3); Red Blood Count 4.74 M/uL (4.70-6.10); White Blood Count 8.78 K/ul (4.8-10.8)
[2024-05-24 07:33] LABS: BUN Creatinine Ratio 27.9 (10-20); Calcium 9.3 mg/dl (8.6-10.3); Creatinine Clr Calc Pharmacy 42.2 ml/min; Magnesium 1.7 mg/dl (1.7-2.4); Potassium 4.3 mmol/L (3.5-5.1)
--- NOTE | 2024-05-24 11:03 | CT Scan Report ---
CT OF THE ABDOMEN AND PELVIS WITHOUT CONTRAST CLINICAL HISTORY: Gross hematuria. COMPARISON STUDY: CT of the abdomen and pelvis May 18, 2024. TECHNIQUE: Axial images of the abdomen and pelvis were obtained without IV contrast. Images were revi ewed in the axial, sagittal, and coronal planes. Automated exposure control was utilized for the mildred dy. A dose lowering technique was utilized adhering to the principles of ALARA. FINDINGS: No pneumatosis, free air or portal venous gas is present. No renal, ureteral or bladder gloria culi are present. There is no hydronephrosis. A Dominguez balloon within the bladder is noted. Hyperdense material within the bladder is again noted. This suggests a moderate amount of clot. Sensitivity for detection of urothelial lesions is diminished on unenhanced exam. Prostate is enlarged, measuring 6. 5 cm in caliber. A small amount of hemorrhage within the right groin is noted. Density of the clot s decreased since prior CT. Evaluation the remainder of the abdomen and pelvis is suboptimal on this unenhanced examination. Liver, spleen, adrenal glands and pancreas are unremarkable with the exceptio n of pancreatic glandular atrophy. There is no lymphadenopathy. There is no evidence for a bowel obst ruction. Note is made of extensive colonic diverticulosis without evidence for acute diverticulitis. IMPRESSION: 1. No urinary calculi or hydronephrosis. 2. Moderate amount of hyperdense material within the bladder consistent with clot. Dominguez balloon with in the bladder. 3. Enlarged prostate. 4. Redemonstration of a small amount of hemorrhage within the right groin which has decreased in dens ity since prior CT. ACT 112: Negative or not required by law. Electronically signed by: Issa Graf M.D. 05/24/2024 11:02 AM
--- NOTE | 2024-05-24 13:31 | Urology Progress Note ---
Date of Service May 24, 2024 Assessment & Plan (1) Gross hematuria: Plan - Follow-up for gross hematuria - Pt afebrile and hemodynamically stable - Labs today show WBC 8.78, hemoglobin 14.1, creatinine 1.40 - He continues on oral Ciprofloxacin. - Pt reportedly tugged on his Dominguez catheter overnight and developed gross hematuria w/clots. CBI was initiated. - CT abd pelvis today demonstrated a moderate amount of clot within the bladder and the Dominguez catheter in place. - On exam today, the 3-way Dominguez catheter was intact and draining dark red urine with CBI on slow rate. CBI was clamped. I manually irrigated/aspirated the catheter with 1L of NSS with removal of a moderate amount of clot. At the end of the procedure, the catheter flushed without difficulty and was draining clear urine. CBI was restarted at a slow rate. Pt tolerated the procedure well. - Maintain the catheter and continue to monitor closely. Will plan to reassess later today, nursing aware. Keep NPO for now. - Urology to follow. Update- - Pt reassessed this afternoon - Three-way Dominguez catheter intact and draining clear yellow urine with CBI clamped. - No plan for intervention. - Maintain catheter and continue to monitor. Okay to hand irrigate as needed for clot/obstruction, retention, suprapubic pain. - Continue antibiotics given catheter manipulation today and CBI. - Urology will follow. Plan of care and imaging reviewed with Dr. Narayan, on-call urologist. Admission and Anticipated Discharge Date Admission Date: May 20, 2024 Subjective Pt seen at bedside today Awake and resting in bed on arrival Nurse at bedside Soft restraints in place - pt was pulling at catheter per nursing Three-way Dominguez intact with CBI on slow rate - dark red urine draining Review of Systems Constitutional: as per Subjective / HPI Genitourinary: + as per Subjective / HPI Physical Exam Constitutional: no acute distress Respiratory: no respiratory distress Gastrointestinal (Abdomen): Inspection/Auscultation: abdomen not distended Percussion/Palpation: abdomen soft Neurologic: awake Psychiatric: Orientation: alert +expressive aphasia Genitourinary: Dominguez intact w/CBI Results & Data Vital Signs (Past 12 Hours) Vital Signs Temp Pulse Resp BP BP Pulse Ox O2 Del Method 05/24/24 10:30 36.7 C 91 H 18 100/63 94 Room Air 12/30/24 07:20 36.7 C 81 18 144/88 H 96 Room Air 05/24/24 03:33 36.6 C 98 H 20 162/82 H 96 Room Air PG Care Time/CCT Total # of Minutes Spent Total Time Spent with Patient: Total time spent is greater than 50% in coordination of care (as documented) at patient's floor/unit and/or counseling patient: Coding Level of Care Code 43735 SUB INP/OBS CARE 2/35MIN Diagnoses Gross hematuria R31.0
--- NOTE | 2024-05-24 15:47 | Hospitalist Progress Note ---
Date of Service May 24, 2024 Assessment & Plan (1) Gross hematuria: (2) AMS (altered mental status): Plan 84 y/o male with recent acute CVA, DM2, CKD3, MCI, HTN, GERD, dyslipidemia, and other history as outlined below who presented to the ED 05/18 from [facility] with increased lethargy. Of note, pt was given additional dose of Seroquel last night due to agitation. Review of records from [facility] revealed issues with hyperactivity delirium while admitted there, mostly seems to have issues at night. He is being managed for the following: Acute drug-induced confusion: Recent cerebrovascular accident: has aphasia from recent CVA, speech has evaluated at [facility]. Soft, bite-size diet. HOB at 90 degrees with any oral intake including medications. Supervision and assistance with meals. Admitting CT head showed subacute infarcts similar in distribution areas of infarct seen on MRI of 05/10/[address] [facility] on EPIC. Suspect confusion due to medication, not progression of CVA. By 05/19 AM, patient back to his baseline mentation. Decreased bedtime Seroquel dose to 25 Mg at bedtime/c/w am Seroquel and continue to monitor mental status. Continue DAPT and home statin. Plan for return to [facility] for ongoing rehab. Delirium precautions. Acute on chronic kidney failure: Baseline creatinine around 1.5, admitting creatinine of 1.85. Creatinine resolved back down to 1.56. Trended upto 2.57 05/22, started ivf, Cr today 1.7. labs in AM, encourage PO fluid intake. hold losartan, c/t hold chlorthalidone. MICHAEL resolved today, likely resume losartan from vannessa after AM labs. Hematuria: Patient noted to have vernon hematuria and condom cath 05/18. 05/18 UA reviewed. 05/18 CTAP reviewed - Redemonstration of stable left renal cortical cyst, 8.5 cm. No bladder wall thickening, blood clot burden within the bladder noted. Urology evaluated, currently CBI running again, CTAP repeated today w/ clots noted in bladder. Status post cystoscopy 05/19. Recommends antibiotic to continue while cbi running.Follow-up with urology as an outpatient. Ciprofloxacin initiated 05/19. will do 5 day course or until cbi is running w/ urology recs. daily EKG for qtc monitoring. Other chronic medical conditions: Continue with/resume home meds as when able. T2DM: Chronic, stable. Sliding scale insulin. HTN: Chronic, stable. Holding chlorthalidone and olmesartan due to MICHAEL concern. Continue to monitor. As needed blood pressure medication. CODE STATUS: DNR/DNI DVT prophylaxis: Subcu heparin Dispo: PT/OT. [facility] per Uro. Abel [phone] was given phone call for gen update, and left to call us back and ask for dr monae. Admission and Anticipated Discharge Date Admission Date: May 20, 2024 Subjective Patient was seen and examined at bedside. Patient was lying in bed, on room air, NAD. Right limb on soft restraint as he was trying to pull at Dominguez catheter. Pt alert, denies pain. Has one-to-one sitter. Ros n/a d/t cognition status. Physical Exam Physical Exam: General: Elderly man in no distress Eyes: PERRL, conjunctivae normal, not pale, anicteric sclerae ENMT: External ear and nose normal, oropharynx normal Respiratory: Normal respiratory effort, no respiratory distress, lungs clear to auscultation, no crackles and no wheezes Cardiovascular: RRR S1 S2 Gastrointestinal (Abdomen): Abdomen is not distended, soft, non-tender to palpation, no guarding, no palpable hepatosplenomegaly, normal bowel sounds Musculoskeletal: No pedal edema Skin: Maculopapular rash on trunk. Multiple areas of ecchymoses/bruise in lower right groin, legs Neurologic: Awake, alert, +expressive aphasia. Follows simple commands. Right hemiparesis noted. UC in situ, Hematuric urine collection in bag noted. CBI running. Results & Data Results & Data Vital Signs (Past 12 Hours) Vital Signs Temp Pulse Pulse Resp BP BP Pulse Ox 05/24/24 15:38 36.7 C 83 17 106/67 93 05/24/24 14:29 79 05/24/24 10:30 36.7 C 91 H 18 100/63 94 05/24/24 07:20 36.7 C 81 18 144/88 H 96 O2 Del Method 05/24/24 15:38 Room Air 05/24/24 14:29 05/24/24 10:30 Room Air 05/24/24 07:20 Room Air (2) AMS (altered mental status) Altered mental status type: unspecified Qualified Code(s): R41.82 - Altered mental status, unspecified
[2024-05-24] MEDS: CIPROFLOXACIN 500 MG TAB PO SCH (20:24)
[2024-05-25 07:16] LABS: Hematocrit (blood only) 41.5 % (42.0-52.0); Hemoglobin 13.9 g/dl (14.0-18.0); Mean Corpuscular Hemoglobin 29.6 pg (25.0-34.0); Mean Corpuscular Hgb Conc 33.5 g/dL (32.0-36.0); Mean Corpuscular Volume 88.3 fL (80.0-100.0); Platelet Count 349 K/uL (130-400); RDW Standard Deviation 45.1 fL (36.4-46.3); White Blood Count 6.99 K/ul (4.8-10.8)
[2024-05-25 07:29] LABS: BUN Creatinine Ratio 25.9 (10-20); Calcium 9.1 mg/dl (8.6-10.3); Magnesium 1.9 mg/dl (1.7-2.4); Phosphorus 3.4 mg/dl (2.5-4.9); Potassium 3.9 mmol/L (3.5-5.1)
--- NOTE | 2024-05-25 07:38 | Urology Progress Note ---
Date of Service May 25, 2024 Assessment & Plan (1) Gross hematuria: Plan - Follow-up for gross hematuria. - Pt afebrile and hemodynamically stable. - Labs todayWBC 6.99, hemoglobin 13.9, creatinine 1.58. - Pt reportedly tugged on his Dominguez catheter and developed gross hematuria w/clots. CBI was initiated. - CT abd pelvis yesterday demonstrated a moderate amount of clot within the bladder and the Dominguez catheter in place. - Catheter was manually irrigated by urology yesterday with removal of a moderate amount of clot. CBI was restarted at a slow rate. - He continues on oral Ciprofloxacin. - Dominguez draining yellow urine this am with CBI clamped. - Discontinue CBI, plug irrigation port. - Maintain Dominguez catheter. - No acute intervention today, pt can have diet from perspective. - Okay to gently hand irrigate catheter as needed for clot/obstruction, ret ention, suprapubic pain. - Continue supportive care medical management per hospital medicine service. - Will arrange outpatient f/u with our service. - will follow peripherally, please contact us with any additional questions/concerns. Admission and Anticipated Discharge Date Admission Date: May 20, 2024 Subjective Patient seen and examined at bedside this morning. He is resting in bed in no apparent distress. One-to-one sitter at bedside, restraints in place. Dominguez intact and draining yellow urine with CBI clamped. Review of Systems Review of Systems: Unobtainable due to cognitive status Physical Exam Constitutional: no acute distress Respiratory: normal respiratory effort; no respiratory distress and no labored breathing Gastrointestinal (Abdomen): Inspection/Auscultation: abdomen normal to inspection Musculoskeletal: Head/Neck/Chest: normocephalic Genitourinary: Dominguez draining yellow urine with CBI clamped Results & Data Vital Signs (Past 12 Hours) Vital Signs Temp Pulse Pulse Resp BP Pulse Ox O2 Del Method 05/25/24 07:00 82 05/25/24 03:24 36.5 C 76 18 146/85 H 93 Room Air 05/24/24 23:16 36.8 C 92 H 17 112/71 92 Room Air 05/24/24 22:52 94 H PG Care Time/CCT Total # of Minutes Spent Total Time Spent with Patient: Total time spent is greater than 50% in coordination of care (as documented) at patient's floor/unit and/or counseling patient: Coding Level of Care Code 03514 SUB INP/OBS CARE 06/19MIN Diagnoses Gross hematuria R31.0
[2024-05-25 09:13] LABS: Appearance Urine Cloudy (Clear); Bacteria Urine Automated None Seen (None Seen); Bilirubin Urine Negative (Negative); Blood Urine 3+ (Negative); Color Urine Yellow; Epithelial Cell Urine Auto 0-2 /hpf (0-2); Glucose Urine UA Negative (Negative); Ketones Urine Trace (Negative); Leukocyte Esterase Urine 1+ (Negative); Nitrite Urine Negative (Negative); Protein Urine 2+ (Negative); RBC Urine Automated >20 /hpf (0-2); Specific Gravity Urine 1.024 (1.000-1.030); Urobilinogen Urine Negative (Negative); WBC Urine Automated 21-50 /hpf (0-5)
--- NOTE | 2024-05-25 10:13 | Electrocardiogram Report ---
Test Reason : Blood Pressure : */* mmHG Vent. Rate : 71 BPM Atrial Rate : 71 BPM P-R Int : 176 ms QRS Dur : 98 ms QT Int : 428 ms P-R-T Axes : 58 7 63 degrees QTcB Int : 465 ms Normal sinus rhythm Nonspecific T wave abnormality Prolonged QT Abnormal ECG When compared with ECG of 22-May-2024 04:39, No significant change was found Confirmed by John Paul Romero ([id number]) on 05/25/2024 10:13:07 AM Referred By: REFERRED SELF Confirmed By: John Paul Romero
--- NOTE | 2024-05-25 15:41 | Hospitalist Progress Note ---
Date of Service May 25, 2024 Assessment & Plan (1) Gross hematuria: (2) AMS (altered mental status): Plan 84 y/o male with recent acute CVA, DM2, CKD3, MCI, HTN, GERD, dyslipidemia, and other history as outlined below who presented to the ED 05/18 from [facility] with increased lethargy. Of note, pt was given additional dose of Seroquel last night due to agitation. Review of records from [facility] revealed issues with hyperactivity delirium while admitted there, mostly seems to have issues at night. He is being managed for the following: Acute drug-induced confusion: Aphasia Recent cerebrovascular accident: has aphasia from recent CVA, speech has evaluated at [facility]. Soft, bite-size diet. HOB at 90 degrees with any oral intake including medications. Supervision and assistance with meals. Admitting CT head showed subacute infarcts similar in distribution areas of infarct seen on MRI of 05/10/24 at [facility] on EPIC. Suspect confusion due to medication, not progression of CVA. By 05/19 AM, patient back to his baseline mentation. Decreased bedtime Seroquel dose to 25 Mg at bedtime/c/w am Seroquel and continue to monitor mental status. Continue DAPT and home statin. Plan for return to [facility] for ongoing rehab. Delirium precautions. Occasional aggressiveness with tending to pull out medical equipments including Dominguez catheter Will put soft restraint to prevent any withdrawal of medical equipment Remains otherwise medically stable and is still requiring one-to-one sitter Acute on chronic kidney failure: Baseline creatinine around 1.5, admitting creatinine of 1.85. Creatinine resolved back down to 1.56. Trended upto 2.57 05/22, started ivf, Cr today 1.7. labs in AM, encourage PO fluid intake. hold losartan, c/t hold chlorthalidone. MICHAEL resolved today, likely resume losartan from vannessa after AM labs. Creatinine is slightly up at 1.58 Will try to push more fluid and monitor PRP Hematuria: Patient noted to have vernon hematuria and condom cath 05/18. 05/18 UA reviewed. 05/18 CTAP reviewed - Redemonstration of stable left renal cortical cyst, 8.5 cm. No bladder wall thickening, blood clot burden within the bladder noted. Urology evaluated, currently CBI running again, CTAP repeated today w/ clots noted in bladder. Status post cystoscopy 05/19. Recommends antibiotic to continue while cbi running.Follow-up with urology as an outpatient. Ciprofloxacin initiated 05/19. will do 5 day course or until cbi is running w/ urology recs. daily EKG for qtc monitoring. Other chronic medical conditions: Continue with/resume home meds as when able. T2DM: Chronic, stable. Sliding scale insulin. HTN: Chronic, stable. Holding chlorthalidone and olmesartan due to MICHAEL concern. Continue to monitor. As needed blood pressure medication. CODE STATUS: DNR/DNI DVT prophylaxis: Subcu heparin Dispo: PT/OT. [facility] cleared per Uro. Abel [phone] was given phone call for gen update, and left to call us back and ask for dr monae. Admission and Anticipated Discharge Date Admission Date: May 20, 2024 Subjective 05/25/2024 The patient was seen and examined in medical telemetry unit He has been stable and seems to be not much communicative today Hematuria has been improving Has occasional unsteadiness with tending to take out medical equipment Review of Systems Review of Systems: Unobtainable due to cognitive status Physical Exam Physical Exam: Lying in bed without any acute distress Constitutional: + ill appearing and average body habitus Eyes: PERRL, conjunctivae normal, anicteric sclerae ENMT: external ear and nose normal, oropharynx normal Neck: trachea midline, no thyromegaly Respiratory: no respiratory distress Auscultation: lungs clear to auscultation bilaterally Cardiovascular: Rate/Rhythm: regular rate and regular rhythm; not tachycardic Heart Sounds: normal S1 and normal S2; no murmur Extremities: no edema Gastrointestinal (Abdomen): Inspection/Auscultation: normal bowel sounds; abdomen not distended Percussion/Palpation: abdomen soft; abdomen nontender Musculoskeletal: No acute arthritis involving any of the joint Neurologic: Alert and awake. getting aggressive at times and tending to take out medical equipment. Lymphatic: no cervical or axillary lymphadenopathy Results & Data Results & Data Vital Signs (Past 12 Hours) Vital Signs Temp Pulse Pulse Resp BP Pulse Ox O2 Del Method 05/25/24 14:00 90 05/25/24 12:16 36.8 C 79 18 119/84 95 Room Air 05/25/24 07:55 36.4 C L 74 16 139/86 97 Room Air 05/25/24 07:00 82 Laboratory Results Short CBC 05/25/24 Range/Units 05:40 WBC 6.99 (4.8-10.8) K/ul Hgb 13.9 L (14.0-18.0) g/dl Hct 41.5 L (42.0-52.0) % Plt Count 349 (130-400) K/uL BMP 05/25/24 05:40 Sodium 140 Potassium 3.9 Chloride 110 H Carbon Dioxide 21 BUN 41 H Creatinine 1.58 H Glucose 135 H Calcium 9.1 Urine 05/25/24 Range/Units 08:34 Urine Color Yellow Urine Appearance Cloudy A (Clear) Urine pH 5.0 (4.5-7.5) Ur Specific [place] 1.024 (1.000-1.030) Urine Protein 2+ H (Negative) Urine Glucose (UA) Negative (Negative) Medications Administered Current Inpatient Medications Acetaminophen (Acetaminophen 325 Mg Tab) 650 mg PO Q6H [facility] Stop: 06/20/24 15:59 Last Admin: 05/25/24 11:12 Dose: Not Given Allopurinol (Allopurinol 100 Mg Tab) 100 mg PO DAILY [facility] Stop: 06/18/24 08:59 Last Admin: 05/25/24 08:45 Dose: 100 mg Aspirin (Aspirin 81 Mg Ectab) 81 mg PO DAILY [facility] Stop: 06/18/24 08:59 Last Admin: 05/25/24 09:13 Dose: 81 mg Atorvastatin Calcium (Atorvastatin 40 Mg Tab) 40 mg PO PM [facility] Stop: 06/17/24 20:59 Last Admin: 05/24/24 20:27 Dose: 40 mg Calamine/Pramoxine (Calamine/Pramoxine Lotion 180 Appln/180 Ml Btl) 1 appln EXT BID PRN PRN Reason: for rash at back Stop: 06/19/24 11:18 Last Admin: 05/23/24 20:35 Dose: 1 appln Chlorhexidine Gluconate (Chlorhexidine Gluconate 0.12% 480 Ml) 15 ml MT BID [facility] Stop: 06/17/24 20:59 Last Admin: 05/25/24 08:46 Dose: 15 ml Ciprofloxacin (Ciprofloxacin 500 Mg Tab) 500 mg PO BID [facility]; Protocol Stop: 05/29/24 20:59 Last Admin: 05/25/24 08:44 Dose: 500 mg Clopidogrel Bisulfate (Clopidogrel Bisulfate 75 Mg Tab) 75 mg PO DAILY [facility] Stop: 06/18/24 08:59 Last Admin: 05/25/24 09:14 Dose: 75 mg Cyanocobalamin (Cyanocobalamin (B-12) 500 Mcg Tablet) 1,000 mcg PO QPM [facility] Stop: 06/17/24 20:59 Last Admin: 05/24/24 20:26 Dose: 1,000 mcg Dextrose (Dextrose 50% 50 Ml Syringe) 25 - 50 ml IV UD PRN; Protocol PRN Reason: Hypoglycemia Protocol Stop: 06/17/24 15:57 Ferrous Sulfate (Ferrous Sulfate 325 Mg Tab) 325 mg PO QPM [facility] Stop: 06/17/24 20:59 Last Admin: 05/24/24 20:25 Dose: 325 mg Glucagon (Glucagon For Inj 1 Mg Vial) 1 mg SQ UD PRN; Protocol PRN Reason: Hypoglycemia Protocol Stop: 06/17/24 15:57 Glucose (Glucose 40% Gel 15 Gm Tube) 15 - 30 gm PO UD PRN; Protocol PRN Reason: Hypoglycemia Protocol Stop: 06/17/24 15:57 Glucose (Glucose 10 Tab/Tube) 4 - 8 tab PO UD PRN; Protocol PRN Reason: Hypoglycemia Protocol Stop: 06/17/24 15:57 Heparin Sodium (Porcine) (Heparin Sod 5,000 Unit/0.5 Ml Vial) 5,000 units SQ Q12 [facility] Stop: 06/19/24 20:59 Last Admin: 05/25/24 08:48 Dose: 5,000 units Hydralazine HCl (Hydralazine 10 Mg Tab) 10 mg PO BID [facility] Stop: 06/17/24 20:59 Last Admin: 05/25/24 08:44 Dose: 10 mg Insulin Aspart (Insulin Aspart Per Unit Charge) 0 units SC ACHS [facility] Stop: 06/17/24 16:29 Last Admin: 05/25/24 13:32 Dose: 5 units Labetalol HCl (Labetalol Hcl Iv 5 Mg/Ml 20ml) 10 mg IV Q4H PRN PRN Reason: HTN\ Stop: 06/18/24 11:25 Last Admin: 05/19/24 19:39 Dose: 10 mg Lactobacillus Acidophilus (Advanced Probiotic 625 Mg Capsule) 1,250 mg PO DAILY [facility] Stop: 06/22/24 08:59 Last Admin: 05/25/24 08:44 Dose: 1,250 mg Latanoprost (Latanoprost 0.005% Op Soln 2.5 Ml Btl) 1 drops OPB QPM [facility] Stop: 06/17/24 20:59 Last Admin: 05/24/24 20:23 Dose: 1 drops Losartan Potassium (Losartan Potassium 50 Mg Tab) 50 mg PO DAILY [facility] Stop: 06/20/24 08:59 Last Admin: 05/21/24 13:10 Dose: 50 mg Melatonin (Melatonin 3 Mg Tab) 3 mg PO HS [facility] Stop: 06/17/24 20:59 Last Admin: 05/24/24 20:25 Dose: 3 mg Miscellaneous (Carbohydrates For Hypoglycemia ) 15 - 30 gm PO UD PRN PRN Reason: Hypoglycemia Protocol Stop: 06/17/24 15:57 Pantoprazole Sodium (Pantoprazole 40 Mg Tab) 40 mg PO DAILY [facility] Stop: 06/18/24 08:59 Last Admin: 05/25/24 08:45 Dose: 40 mg Quetiapine Fumarate (Quetiapine Fumarate 25 Mg Tablet) 25 mg PO HS [facility] Stop: 06/18/24 20:59 Last Admin: 05/24/24 20:26 Dose: 25 mg Quetiapine Fumarate (Quetiapine Fumarate 25 Mg Tablet) 25 mg PO DAILY [facility] Stop: 06/19/24 08:59 Last Admin: 05/25/24 08:45 Dose: 25 mg Sennosides (Senna 8.6 Mg Tab) 8.6 mg PO BID [facility] Stop: 06/17/24 20:59 Last Admin: 05/25/24 09:14 Dose: 8.6 mg Vitamin D (Cholecalciferol 10 Mcg (400 Units) Tab) 20 mcg PO DAILY [facility] Stop: 06/18/24 08:59 Last Admin: 05/25/24 08:45 Dose: 20 mcg (2) AMS (altered mental status) Altered mental status type: unspecified Qualified Code(s): R41.82 - Altered mental status, unspecified
[2024-05-26 07:33] LABS: Hematocrit (blood only) 39.9 % (42.0-52.0); Hemoglobin 13.7 g/dl (14.0-18.0); Mean Corpuscular Hemoglobin 29.9 pg (25.0-34.0); Mean Corpuscular Hgb Conc 34.3 g/dL (32.0-36.0); Mean Corpuscular Volume 87.1 fL (80.0-100.0); Platelet Count 381 K/uL (130-400); RDW Coefficient of Variation 13.7 % (11.5-14.5); RDW Standard Deviation 43.8 fL (36.4-46.3); Red Blood Count 4.58 M/uL (4.70-6.10); White Blood Count 7.85 K/ul (4.8-10.8)
[2024-05-26 07:51] LABS: BUN Creatinine Ratio 26.7 (10-20); Calcium 9.4 mg/dl (8.6-10.3); Creatinine Clr Calc Pharmacy 35.8 ml/min
--- NOTE | 2024-05-26 14:33 | Hospitalist Progress Note ---
Date of Service May 26, 2024 Assessment & Plan (1) Gross hematuria: (2) AMS (altered mental status): Plan 84 y/o male with recent acute CVA, DM2, CKD3, MCI, HTN, GERD, dyslipidemia, and other history as outlined below who presented to the ED 05/18 from [facility] with increased lethargy. Of note, pt was given additional dose of Seroquel last night due to agitation. Review of records from [facility] revealed issues with hyperactivity delirium while admitted there, mostly seems to have issues at night. He is being managed for the following: Acute drug-induced confusion: Aphasia Recent cerebrovascular accident: has aphasia from recent CVA, speech has evaluated at [facility]. Soft, bite-size diet. HOB at 90 degrees with any oral intake including medications. Supervision and assistance with meals. Admitting CT head showed subacute infarcts similar in distribution areas of infarct seen on MRI of 05/10/24 at [facility] on EPIC. Suspect confusion due to medication, not progression of CVA. By 05/19 AM, patient back to his baseline mentation. Decreased bedtime Seroquel dose to 25 Mg at bedtime/c/w am Seroquel and continue to monitor mental status. Continue DAPT and home statin. Plan for return to [facility] for ongoing rehab. Delirium precautions. Occasional aggressiveness with tending to pull out medical equipments including Dominguez catheter Will put soft restraint to prevent any withdrawal of medical equipment Remains otherwise medically stable and is still requiring one-to-one sitter Requiring left hand mitten prevent pulling out of medical equipment Otherwise seems to be stable and has been drinking and eating reasonably Acute on chronic kidney failure: Baseline creatinine around 1.5, admitting creatinine of 1.85. Creatinine resolved back down to 1.56. Trended upto 2.57 05/22, started ivf, Cr today 1.7. labs in AM, encourage PO fluid intake. hold losartan, c/t hold chlorthalidone. MICHAEL resolved today, likely resume losartan from vannessa after AM labs. Creatinine is slightly up at 1.58 Will try to push more fluid and monitor PRP Creatinine is little bit up at 1.72 Advised to have more fluid otherwise he will go to severe MICHAEL Hematuria: Patient noted to have vernon hematuria and condom cath 05/18. 05/18 UA reviewed. 05/18 CTAP reviewed - Redemonstration of stable left renal cortical cyst, 8.5 cm. No bladder wall thickening, blood clot burden within the bladder noted. Urology evaluated, currently CBI running again, CTAP repeated today w/ clots noted in bladder. Status post cystoscopy 05/19. Recommends antibiotic to continue while cbi running.Follow-up with urology as an outpatient. Ciprofloxacin initiated 05/19. will do 5 day course or until cbi is running w/ urology recs. daily EKG for qtc monitoring. Hematuria has cleared Other chronic medical conditions: Continue with/resume home meds as when able. T2DM: Chronic, stable. Sliding scale insulin. HTN: Chronic, stable. Holding chlorthalidone and olmesartan due to MICHAEL concern. Continue to monitor. As needed blood pressure medication. CODE STATUS: DNR/DNI DVT prophylaxis: Subcu heparin Dispo: PT/OT. [facility] per Uro. Abel [phone] was given phone call for gen update, and left to call us back and ask for dr monae. Admission and Anticipated Discharge Date Admission Date: May 20, 2024 Subjective 05/25/2024 The patient was seen and examined in medical telemetry unit He has been stable and seems to be not much communicative today Hematuria has been improving Has occasional unsteadiness with tending to take out medical equipment 05/26/2024 Patient was seen and examined in medical telemetry unit He remains pleasantly confused and tries to take out the Dominguez He has been requiring mid to left hand to prevent pulling out any medical equip ment and lines Will need to be free from restraint an one-to-one sitter if any before being transferred to the facility Review of Systems Review of Systems: Unobtainable due to expressive aphasia Physical Exam Physical Exam: Lying in bed without any acute distress Constitutional: + ill appearing and average body habitus Eyes: PERRL, conjunctivae normal, anicteric sclerae ENMT: external ear and nose normal, oropharynx normal Neck: trachea midline, no thyromegaly Respiratory: no respiratory distress Auscultation: lungs clear to auscultation bilaterally Cardiovascular: Rate/Rhythm: regular rate and regular rhythm; not tachycardic Heart Sounds: normal S1 and normal S2; no murmur Extremities: no edema Gastrointestinal (Abdomen): Inspection/Auscultation: normal bowel sounds; abdomen not distended Percussion/Palpation: abdomen soft; abdomen nontender Musculoskeletal: He does not have any acute arthritis involving any of the joint Neurologic: normal touch/pain/proprioception, moves all extremities and + confused (Remains pleasantly confused); no focal motor deficits Lymphatic: no cervical or axillary lymphadenopathy Results & Data Results & Data Vital Signs (Past 12 Hours) Vital Signs Temp Pulse Pulse Resp BP BP Pulse Ox 05/26/24 11:46 36.5 C 81 18 112/67 95 05/26/24 10:25 05/26/24 07:46 36.4 C L 78 20 146/78 H 95 05/26/24 07:22 75 05/26/24 02:37 36.4 C L 84 18 114/70 98 O2 Del Method 05/26/24 11:46 Room Air 05/26/24 10:25 Room Air 05/26/24 07:46 Room Air 05/26/24 07:22 05/26/24 02:37 Room Air Laboratory Results Short CBC 05/26/24 Range/Units 07:17 WBC 7.85 (4.8-10.8) K/ul Hgb 13.7 L (14.0-18.0) g/dl Hct 39.9 L (42.0-52.0) % Plt Count 381 (130-400) K/uL BMP 05/26/24 07:17 Sodium 140 Potassium 4.0 Chloride 110 H Carbon Dioxide 22 BUN 46 H Creatinine 1.72 H Glucose 152 H Calcium 9.4 Medications Administered Current Inpatient Medications Acetaminophen (Acetaminophen 325 Mg Tab) 650 mg PO Q6H CRISTIAN Stop: 06/20/24 15:59 Last Admin: 05/26/24 09:12 Dose: 650 mg Allopurinol (Allopurinol 100 Mg Tab) 100 mg PO DAILY CRISTIAN Stop: 06/18/24 08:59 Last Admin: 05/26/24 09:13 Dose: 100 mg Aspirin (Aspirin 81 Mg Ectab) 81 mg PO DAILY CRISTIAN Stop: 06/18/24 08:59 Last Admin: 05/26/24 09:14 Dose: 81 mg Atorvastatin Calcium (Atorvastatin 40 Mg Tab) 40 mg PO PM CRISTIAN Stop: 06/17/24 20:59 Last Admin: 05/25/24 22:12 Dose: 40 mg Calamine/Pramoxine (Calamine/Pramoxine Lotion 180 Appln/180 Ml Btl) 1 appln EXT BID PRN PRN Reason: for rash at back Stop: 06/19/24 11:18 Last Admin: 05/23/24 20:35 Dose: 1 appln Chlorhexidine Gluconate (Chlorhexidine Gluconate 0.12% 480 Ml) 15 ml MT BID [facility] Stop: 06/17/24 20:59 Last Admin: 05/26/24 09:15 Dose: 15 ml Ciprofloxacin (Ciprofloxacin 500 Mg Tab) 500 mg PO BID CRISTIAN; Protocol Stop: 05/29/24 20:59 Last Admin: 05/26/24 09:13 Dose: 500 mg Clopidogrel Bisulfate (Clopidogrel Bisulfate 75 Mg Tab) 75 mg PO DAILY CRISTIAN Stop: 06/18/24 08:59 Last Admin: 05/26/24 09:14 Dose: 75 mg Cyanocobalamin (Cyanocobalamin (B-12) 500 Mcg Tablet) 1,000 mcg PO QPM CRISTIAN Stop: 06/17/24 20:59 Last Admin: 05/25/24 22:12 Dose: 1,000 mcg Dextrose (Dextrose 50% 50 Ml Syringe) 25 - 50 ml IV UD PRN; Protocol PRN Reason: Hypoglycemia Protocol Stop: 06/17/24 15:57 Ferrous Sulfate (Ferrous Sulfate 325 Mg Tab) 325 mg PO QPM [facility] Stop: 06/17/24 20:59 Last Admin: 05/25/24 22:12 Dose: 325 mg Glucagon (Glucagon For Inj 1 Mg Vial) 1 mg SQ UD PRN; Protocol PRN Reason: Hypoglycemia Protocol Stop: 06/17/24 15:57 Glucose (Glucose 40% Gel 15 Gm Tube) 15 - 30 gm PO UD PRN; Protocol PRN Reason: Hypoglycemia Protocol Stop: 06/17/24 15:57 Glucose (Glucose 10 Tab/Tube) 4 - 8 tab PO UD PRN; Protocol PRN Reason: Hypoglycemia Protocol Stop: 06/17/24 15:57 Heparin Sodium (Porcine) (Heparin Sod 5,000 Unit/0.5 Ml Vial) 5,000 units SQ Q12 CRISTIAN Stop: 06/19/24 20:59 Last Admin: 05/26/24 09:15 Dose: 5,000 units Hydralazine HCl (Hydralazine 10 Mg Tab) 10 mg PO BID CRISTIAN Stop: 06/17/24 20:59 Last Admin: 05/26/24 09:14 Dose: 10 mg Insulin Aspart (Insulin Aspart Per Unit Charge) 0 units SC ACHS CRISTIAN Stop: 06/17/24 16:29 Last Admin: 05/26/24 12:56 Dose: 6 units Labetalol HCl (Labetalol Hcl Iv 5 Mg/Ml 20ml) 10 mg IV Q4H PRN PRN Reason: HTN\ Stop: 06/18/24 11:25 Last Admin: 05/19/24 19:39 Dose: 10 mg Lactobacillus Acidophilus (Advanced Probiotic 625 Mg Capsule) 1,250 mg PO DAILY CRISTIAN Stop: 06/22/24 08:59 Last Admin: 05/26/24 09:13 Dose: 1,250 mg Latanoprost (Latanoprost 0.005% Op Soln 2.5 Ml Btl) 1 drops OPB QPM CRISTIAN Stop: 06/17/24 20:59 Last Admin: 05/25/24 22:11 Dose: 1 drops Losartan Potassium (Losartan Potassium 50 Mg Tab) 50 mg PO DAILY CRISTIAN Stop: 06/20/24 08:59 Last Admin: 05/21/24 13:10 Dose: 50 mg Melatonin (Melatonin 3 Mg Tab) 3 mg PO HS CRISTIAN Stop: 06/17/24 20:59 Last Admin: 05/25/24 22:08 Dose: 3 mg Miscellaneous (Carbohydrates For Hypoglycemia ) 15 - 30 gm PO UD PRN PRN Reason: Hypoglycemia Protocol Stop: 06/17/24 15:57 Pantoprazole Sodium (Pantoprazole 40 Mg Tab) 40 mg PO DAILY CRISTIAN Stop: 06/18/24 08:59 Last Admin: 05/26/24 09:14 Dose: 40 mg Quetiapine Fumarate (Quetiapine Fumarate 25 Mg Tablet) 25 mg PO HS CRISTIAN Stop: 06/18/24 20:59 Last Admin: 05/25/24 22:09 Dose: 25 mg Quetiapine Fumarate (Quetiapine Fumarate 25 Mg Tablet) 25 mg PO DAILY CRISTIAN Stop: 06/19/24 08:59 Last Admin: 05/26/24 09:13 Dose: 25 mg Sennosides (Senna 8.6 Mg Tab) 8.6 mg PO BID CRISTIAN Stop: 06/17/24 20:59 Last Admin: 05/26/24 10:18 Dose: 8.6 mg Vitamin D (Cholecalciferol 10 Mcg (400 Units) Tab) 20 mcg PO DAILY CRISTIAN Stop: 06/18/24 08:59 Last Admin: 05/26/24 09:14 Dose: 20 mcg (2) AMS (altered mental status) Altered mental status type: unspecified Qualified Code(s): R41.82 - Altered mental status, unspecified
--- NOTE | 2024-05-26 21:04 | Communication Note ---
Date of Service: May 26, 2024 Hematuria noted after patient pulled out Dominguez catheter. Hold antiplatelet Rx and heparin subcu for now.
[2024-05-26] MEDS: OLANZapine 10 MG/2.1 ML SDV IM STA (21:09)
[2024-05-26 21:55] LABS: Hematocrit (blood only) 37.6 % (42.0-52.0); Hemoglobin 12.9 g/dl (14.0-18.0)
--- NOTE | 2024-05-26 23:23 | Electrocardiogram Report ---
Test Reason : Blood Pressure : */* mmHG Vent. Rate : 75 BPM Atrial Rate : 75 BPM P-R Int : 168 ms QRS Dur : 96 ms QT Int : 412 ms P-R-T Axes : 52 10 45 degrees QTcB Int : 460 ms Normal sinus rhythm Normal ECG When compared with ECG of 25-May-2024 05:28, No significant change was found Confirmed by Homar Bledsoe ([id number]) on 05/26/2024 11:23:15 PM Referred By: REFERRED SELF Confirmed By: Homar Bledsoe
--- NOTE | 2024-05-27 08:47 | Hospitalist Progress Note ---
Date of Service May 27, 2024 Assessment & Plan (1) Gross hematuria: (2) AMS (altered mental status): Plan 84 y/o male with recent acute CVA, DM2, CKD3, MCI, HTN, GERD, dyslipidemia, and other history as outlined below who presented to the ED 05/18 from [facility] with increased lethargy. Of note, pt was given additional dose of Seroquel last night due to agitation. Review of records from [facility] revealed issues with hyperactivity delirium while admitted there, mostly seems to have issues at night. He is being managed for the following: Acute drug-induced confusion: Aphasia Recent cerebrovascular accident: has aphasia from recent CVA, speech has evaluated at [facility]. Soft, bite-size diet. HOB at 90 degrees with any oral intake including medications. Supervision and assistance with meals. Admitting CT head showed subacute infarcts similar in distribution areas of infarct seen on MRI of 05/10/24 at [facility] on EPIC. Suspect confusion due to medication, not progression of CVA. By 05/19 AM, patient back to his baseline mentation. Decreased bedtime Seroquel dose to 25 Mg at bedtime/c/w am Seroquel and continue to monitor mental status. Continue DAPT and home statin. Plan for return to [facility] for ongoing rehab. Delirium precautions. Occasional aggressiveness with tending to pull out medical equipment including Callaway catheter Will put soft restraint to prevent any withdrawal of medical equipment Remains otherwise medically stable, no longer requiring one-to-one sitter Requiring left hand mitten prevent pulling out of medical equipment Otherwise seems to be stable and has been drinking and eating reasonably Acute on chronic kidney failure: Baseline creatinine around 1.5, admitting creatinine of 1.85. Creatinine resolved back down to 1.56. Trended up to 2.57 05/22, started ivf, Cr today 1.7. Hold losartan, cont. holding chlorthalidone Repeat BMP in AM Hematuria: -> resolved Patient noted to have vernon hematuria and condom cath 05/18. 05/18 UA reviewed. 05/18 CTAP reviewed - Redemonstration of stable left renal cortical cyst, 8.5 cm. No bladder wall thickening, blood clot burden within the bladder noted. Urology consulted, status post cystoscopy 05/19. Recommends antibiotic to continue while cbi running. Follow-up with urology as an outpatient. Ciprofloxacin initiated 05/19, completed 5 day course Hematuria has cleared today -> resume aspirin 81mg, SQ heparin held overnight Callaway remains in place but concern it is contributing to agitation Discussed with urology - plan to try a void trail tomorrow morning Other chronic medical conditions: Continue with/resume home meds as when able. T2DM: Chronic, stable. Sliding scale insulin. HTN: Chronic, stable. Holding chlorthalidone and olmesartan due to MICHAEL concern. Continue to monitor. As needed blood pressure medication. CODE STATUS: DNR/DNI DVT prophylaxis: Resume SQ heparin Dispo: PT/OT. [facility] when cleared per Uro. I spent a total of 40 minutes coordinating, documenting, and providing care for this patient excluding time spent in the performance of separately billed services. Admission and Anticipated Discharge Date Admission Date: May 20, 2024 Supervising Physician Co-Signing Physician Notes Attending addendum: Patient was seen and examined in medical telemetry He has been requiring ongoing CHF and also mitten in left hand Denies any acute symptoms On examination Lying in bed without any acute distress Hemodynamically stable and does not have any more hematuria Chestclear bilaterally HeartS1-S2, regular Abdomenbenign His medications reviewed His catheter will be taken out following discussion with urologist to prevent any worsening of confusion Agree with assessment plan as outlined above by Gerogie Castillo PA-C and take the full responsibility of care in the hospital DR Ramonita Downey Subjective Seen and examined in 286-2. Pleasantly confused, resting. Required Zyprexa around 2100 overnight after tugging on callaway catheter. Developed bleeding at the side - SQ heparin and aspirin held. Urine initially tea colored per RN but has cleared up today. Review of Systems Review of Systems: Unobtainable due to cognitive status Physical Exam Physical Exam: Gen: WD/WN, NAD, resting in bed, pleasantly confused, appears chronically ill HEENT: Normocephalic, atraumatic, conjunctivae moist, sclerae anicteric, mucous membranes moist Lung: Clear to Auscultation bilaterally Heart: Regular rate, regular rhythm Abdomen: Soft, NT, ND +BS x 4 : Callaway in place, draining yellow urine, some dried blood around urethra Extremities: no edema Skin: Warm, no rash Results & Data Results & Data Vital Signs (Past 12 Hours) Vital Signs Temp Pulse Pulse Resp BP Pulse Ox O2 Del Method 05/27/24 07:51 36.5 C 87 18 146/80 H 95 Room Air 05/27/24 07:36 Room Air 05/27/24 07:18 74 05/27/24 02:50 36.6 C 87 18 146/81 H 95 Room Air 05/26/24 23:01 36.3 C L 90 20 161/91 H 96 Room Air 05/26/24 22:00 99 H Laboratory Results Short CBC 05/26/24 Range/Units 21:22 Hgb 12.9 L (14.0-18.0) g/dl Hct 37.6 L (42.0-52.0) % Diagnostic Findings Head CT 05/18/24 10:59 CT OF THE HEAD WITHOUT CONTRAST CLINICAL HISTORY: Altered mental status. COMPARISON STUDY: MRI of the brain and head CT and CTA of the head May 08, 2024. Head CT May 09, 2024. CT DOSE: 625.8 mGy.cm TECHNIQUE: Helical axial images of the head were obtained without IV contrast. Automated exposure control was utilized for the study. A dose lowering technique was utilized adhering to the principles of ALARA. FINDINGS: No acute intracranial hemorrhage, midline shift or mass effect is present. Ventricular system is unremarkable. Basal cisterns are patent. There are no extra-axial collections. A 5.3 cm hypodense focus with loss of crump-white differentiation within the left parietal lobe is noted. This favors a subacute infarct which has increased in extent since MRI of May 08, 2024. A few additional suspected subacute infarcts within left basal ganglia and left diego radiata are present. There is no mass effect. There is no evidence for hemorrhagic conversion. Punctate radiodensities within the left parietal lobe infarct favor calcifications. IMPRESSION: 1. No acute intracranial hemorrhage. No mass effect. 2. 5.3 cm hypodense focus with loss of crump-white differentiation within the left parietal lobe. This favors a subacute infarct with increase in extent since MRI of May 08, 2024. Several additional suspected subacute infarcts within the left basal ganglia and left diego radiata. ACT 112: Negative or not required by law. Electronically signed by: Issa Graf M.D. 05/18/2024 12:23 PM Chest X-Ray 05/18/24 11:00 XR chest 1V portable CLINICAL HISTORY: Altered mental status COMPARISON STUDY: Chest radiograph April 08, 2018. FINDINGS: Lung volumes are normal. There is no consolidation. Linear right lower lung density suggests atelectasis. There is no pneumothorax or pleural effusion. Cardiac size is normal. Mediastinal contours are normal. There is no evidence for pulmonary edema. IMPRESSION: No acute cardiopulmonary findings. ACT 112: Negative or not required by law. Electronically signed by: Issa Graf M.D. 05/18/2024 11:41 AM Abdomen/Pelvis CT 05/18/24 19:14 Exam(s): CT ABDOMEN + PELVIS Without Contrast EXAM: CT Abdomen and Pelvis Without Intravenous Contrast CLINICAL HISTORY: Vernon hematuria. Assess. TECHNIQUE: Axial computed tomography images of the abdomen and pelvis without intravenous contrast. CTDI is 22.78 mGy and DLP is 1179.28 mGy-cm. Automated exposure control was utilized for the study. A dose lowering technique was utilized adhering to the principles of ALARA. COMPARISON: CT abdomen and pelvis with contrast dated 04/15/2018 FINDINGS: Artifacts: Scatter artifact likely related to patient's arm position. Limitations: There is respiratory artifact, which degrades image quality on multiple image slices. Lung bases: Curvilinear changes noted at the lung bases. No consolidation. ABDOMEN: Liver: Unremarkable. Gallbladder and bile ducts: Unremarkable. No calcified stones. No ductal dilation. Pancreas: Unremarkable. No ductal dilation. Spleen: Unremarkable. No splenomegaly. Adrenals: Unremarkable. No mass. Kidneys and ureters: The unenhanced kidneys demonstrate similar contours to the prior examination. No hydronephrosis, nephrolithiasis or ureteral stones. The previously noted cortical cyst posteriorly at the midpole of the left kidney is grossly stable, measuring approximately 8.5 mm. Detail evaluation limited. Stomach and bowel: No evidence for bowel obstruction. Evaluation of the bowel mucosa is slightly limited without contrast. Extensive diverticulosis noted involving the distal descending and sigmoid colon. No obvious diverticulitis. PELVIS: Appendix: A normal caliber appendix is noted in the right lower quadrant. Bladder: A Callaway catheter is noted in the bladder. There is extensive hyperdense material throughout the bladder. Is most consistent with hemorrhagic clot burden throughout the bladder. Detail evaluation limited without contrast. No stones. Reproductive: Prostatic hypertrophy. ABDOMEN and PELVIS: Intraperitoneal space: Unremarkable. No free air. No significant fluid collection. Bones/joints: No acute fracture. No dislocation. Soft tissues: Hyperdense crescentic and irregular soft tissue swelling noted superficial to the right common femoral vasculature at the right groin. Vasculature: Unremarkable. No abdominal aortic aneurysm. Lymph nodes: Unremarkable. No enlarged lymph nodes. IMPRESSION: 1. The unenhanced kidneys demonstrate similar contours to the prior examination. No hydronephrosis, nephrolithiasis or ureteral stones. The previously noted cortical cyst posteriorly at the midpole of the left kidney is grossly stable, measuring approximately 8.5 mm. Detail evaluation limited. 2. A Callaway catheter is noted in the bladder. There is extensive hyperdense material throughout the bladder. The appearance is most consistent with brain clot burden. No obvious focal bladder wall thickening. Detail evaluation limited. Prostatic hypertrophy. 3. Hyperdense crescentic and irregular soft tissue swelling noted superficial to the right common femoral vasculature at the right groin. Please correlate clinically for attempted vascular access in this region. Electronically signed by: George Newman MD 05/18/24 22:08 PM Abdomen/Pelvis CT 05/24/24 08:48 CT OF THE ABDOMEN AND PELVIS WITHOUT CONTRAST CLINICAL HISTORY: Gross hematuria. COMPARISON STUDY: CT of the abdomen and pelvis May 18, 2024. TECHNIQUE: Axial images of the abdomen and pelvis were obtained without IV contrast. Images were reviewed in the axial, sagittal, and coronal planes. Automated exposure control was utilized for the study. A dose lowering technique was utilized adhering to the principles of ALARA. FINDINGS: No pneumatosis, free air or portal venous gas is present. No renal, ureteral or bladder calculi are present. There is no hydronephrosis. A Callaway balloon within the bladder is noted. Hyperdense material within the bladder is again noted. This suggests a moderate amount of clot. Sensitivity for detection of urothelial lesions is diminished on unenhanced exam. Prostate is enlarged, measuring 6.5 cm in caliber. A small amount of hemorrhage within the right groin is noted. Density of the clot has decreased since prior CT. Evaluation the remainder of the abdomen and pelvis is suboptimal on this unenhanced examination. Liver, spleen, adrenal glands and pancreas are unremarkable with the exception of pancreatic glandular atrophy. There is no lymphadenopathy. There is no evidence for a bowel obstruction. Note is made of extensive colonic diverticulosis without evidence for acute diverticulitis. IMPRESSION: 1. No urinary calculi or hydronephrosis. 2. Moderate amount of hyperdense material within the bladder consistent with clot. Callaway balloon within the bladder. 3. Enlarged prostate. 4. Redemonstration of a small amount of hemorrhage within the right groin which has decreased in density since prior CT. ACT 112: Negative or not required by law. Electronically signed by: Issa Graf M.D. 05/24/2024 11:02 AM (2) AMS (altered mental status) Altered mental status type: unspecified Qualified Code(s): R41.82 - Altered mental status, unspecified
--- NOTE | 2024-05-27 14:09 | Electrocardiogram Report ---
Test Reason : Blood Pressure : */* mmHG Vent. Rate : 77 BPM Atrial Rate : 77 BPM P-R Int : 176 ms QRS Dur : 94 ms QT Int : 402 ms P-R-T Axes : 52 10 28 degrees QTcB Int : 454 ms Sinus rhythm with Premature ventricular complexes Otherwise normal ECG When compared with ECG of 26-May-2024 05:38, Premature ventricular complexes now present Confirmed by John Paul Romero ([id number]) on 05/27/2024 2:09:16 PM Referred By: REFERRED SELF Confirmed By: John Paul Romero
[2024-05-28 06:56] LABS: Hematocrit (blood only) 39.5 % (42.0-52.0); Hemoglobin 13.4 g/dl (14.0-18.0); Mean Corpuscular Hemoglobin 29.5 pg (25.0-34.0); Mean Corpuscular Hgb Conc 33.9 g/dL (32.0-36.0); Mean Corpuscular Volume 86.8 fL (80.0-100.0); Mean Platelet Volume 10.2 fL (9.4-12.4); Platelet Count 415 K/uL (130-400); RDW Coefficient of Variation 13.8 % (11.5-14.5); RDW Standard Deviation 43.8 fL (36.4-46.3); Red Blood Count 4.55 M/uL (4.70-6.10); White Blood Count 8.23 K/ul (4.8-10.8)
[2024-05-28 07:10] LABS: BUN Creatinine Ratio 26.8 (10-20); Calcium 9.3 mg/dl (8.6-10.3); Creatinine Clr Calc Pharmacy 38.3 ml/min; Potassium 4.2 mmol/L (3.5-5.1)
[2024-05-28 12:19] LABS: Base Excess VBG -2.2 mEq/L; HCO3 VBG 23 mmol/L; Oxygen Saturation VBG 72.3 %; PCO2 VBG 41 mmHg (38-50); PO2 VBG 42 mmHg; pH VBG 7.36 (7.36-7.41)
--- NOTE | 2024-05-28 13:50 | Hospitalist Progress Note ---
Date of Service May 28, 2024 Assessment & Plan (1) Gross hematuria: (2) AMS (altered mental status): Plan This is a 84 y/o male with recent acute CVA, DM2, CKD3, MCI, HTN, GERD, dyslipidemia, and other history as outlined below who presented to the ED 05/18 from [facility] with increased lethargy. Of note, pt was given additional dose of Seroquel last night due to agitation. Review of records from [facility] revealed issues with hyperactivity delirium while admitted there, mostly seems to have issues at night. He is being managed for the following: Acute drug-induced confusion: Aphasia Recent cerebrovascular accident: has aphasia and R sided weakness from recent CVA, speech has evaluated at [facility]. Soft, bite-size diet. HOB at 90 degrees with any oral intake including medications. Supervision and assistance with meals. Admitting CT head showed subacute infarcts similar in distribution areas of infarct seen on MRI of 05/10/24 at [facility] on EPIC. Suspect confusion due to medication, not progression of CVA. By 05/19 AM, patient back to his baseline mentation. Seroquel decreased to 25mg BID on 05/24 - lethargic this AM, VBG checked and WNL, more awake by noon. Reducing AM Seroquel dose to 12.5mg, keeping PM at 25mg Did not require IM Zyprexa last evening Delirium precautions; occasional aggressiveness with tending to pull out medical equipment including Dominguez catheter PRN soft restraint to prevent any withdrawal of medical equipment - discussed with RN today, trial with it removed Continue DAPT and home statin for recent CVA Remains otherwise medically stable, no longer requiring one-to-one sitter PT/OT to see now since more alert - recommending return to [facility] for rehab once medically stable Acute on chronic kidney failure: -> resolving Baseline creatinine around 1.5, admitting creatinine of 1.85. Creatinine resolved back down to 1.56. Trended up to 2.57 05/22. Holding losartan, chlorthalidone Cr back to baseline 1.53 today BP normotensive - continue holding chlorthalidone, losartan Hematuria: -> resolved Patient noted to have vernon hematuria and condom cath 05/18. 05/18 UA reviewed. 05/18 CTAP reviewed - Redemonstration of stable left renal cortical cyst, 8.5 cm. No bladder wall thickening, blood clot burden within the bladder noted. Urology consulted, status post cystoscopy 05/19. Follow-up with urology as an outpatient. Ciprofloxacin initiated 05/19, has been completed Hematuria has cleared as of 05/27 -> resumed aspirin 81mg, SQ heparin Dominguez remains in place but concern it is contributing to agitation - trial to void this afternoon Other chronic medical conditions: Continue with/resume home meds as when able. T2DM: Chronic, stable. Sliding scale insulin. HTN: Chronic, stable. Holding chlorthalidone and olmesartan due to MICHAEL concern. Continue to monitor. As needed blood pressure medication. CODE STATUS: DNR/DNI DVT prophylaxis: Resume SQ heparin Dispo: PT/OT recommending return to [facility] when medically stable. Extensive discussion with daughter Marcia (POA) at [phone]. She is processing extreme change since stroke, lives in [place] but looking to visit to better participate in decision making. I spent a total of 60 minutes coordinating, documenting, and providing care for this patient excluding time spent in the performance of separately billed services. Admission and Anticipated Discharge Date Admission Date: May 20, 2024 Supervising Physician Co-Signing Physician Notes Attending addendum: The patient was seen and examined in medical telemetry unit He was less talkative today and looks very drowsy On examination Lying in bed without any apparent distress Hemodynamically stable Remains very drowsy and lethargic and not being coming His labs were noted and medication noted too Seems to be lethargic due to medication/effects of stroke in the hospital His Dominguez catheter was taken out for comfort and to decrease agitation The care PA did talk to the POA and updated his condition Agree with assessment plan as outlined above by Georgie Castillo PA-C and take the full responsibility of care in the hospital, Dr Ramonita Downey Subjective Seen and examined in 286-2. Lethargic today. Awakens during exam but then falls back asleep. Did not require IM Zyprexa overnight per nursing. Dominguez catheter in place. No other acute complaints. Limited hx 2/2 expressive aphasia from stroke but nodding appropriately to some questions, appears comfortable. Review of Systems Review of Systems: Unobtainable due to cognitive status Physical Exam Physical Exam: Gen: WD/WN, NAD, resting in bed comfortably, LLE soft restraint in place, lethargic but awakens to verbal stimuli, + baseline expressive aphasia HEENT: Normocephalic, atraumatic, conjunctivae moist, sclerae anicteric, mucous membranes moist Lung: Clear to Auscultation bilaterally, no wheezes/rales/rhonchi Heart: Regular rate, regular rhythm, no murmurs, rubs, or gallops Abdomen: Soft, NT, ND +BS x 4 Extremities: + R sided weakness (chronic), no edema Skin: Warm, no rash Results & Data Results & Data Vital Signs (Past 12 Hours) Vital Signs Temp Pulse Pulse Resp BP Pulse Ox O2 Del Method 05/28/24 11:26 36.7 C 77 14 123/75 94 Room Air 05/28/24 08:00 Room Air 05/28/24 07:45 36.6 C 64 20 128/83 96 Room Air 05/28/24 07:34 70 Laboratory Results Short CBC 05/28/24 Range/Units 06:02 WBC 8.23 (4.8-10.8) K/ul Hgb 13.4 L (14.0-18.0) g/dl Hct 39.5 L (42.0-52.0) % Plt Count 415 H (130-400) K/uL BMP 05/28/24 06:02 Sodium 140 Potassium 4.2 Chloride 109 H Carbon Dioxide 22 BUN 41 H Creatinine 1.53 H Glucose 143 H Calcium 9.[address] 05/18/24 10:59 CT OF THE HEAD WITHOUT CONTRAST CLINICAL HISTORY: Altered mental status. COMPARISON STUDY: MRI of the brain and head CT and CTA of the head May 08, 2024. Head CT May 09, 2024. CT DOSE: 625.8 mGy.cm TECHNIQUE: Helical axial images of the head were obtained without IV contrast. Automated exposure control was utilized for the study. A dose lowering technique was utilized adhering to the principles of ALARA. FINDINGS: No acute intracranial hemorrhage, midline shift or mass effect is present. Ventricular system is unremarkable. Basal cisterns are patent. There are no extra-axial collections. A 5.3 cm hypodense focus with loss of crump-white differentiation within the left parietal lobe is noted. This favors a subacute infarct which has increased in extent since MRI of May 08, 2024. A few additional suspected subacute infarcts within left basal ganglia and left diego radiata are present. There is no mass effect. There is no evidence for hemorrhagic conversion. Punctate radiodensities within the left parietal lobe infarct favor calcifications. IMPRESSION: 1. No acute intracranial hemorrhage. No mass effect. 2. 5.3 cm hypodense focus with loss of crump-white differentiation within the left parietal lobe. This favors a subacute infarct with increase in extent since MRI of May 08, 2024. Several additional suspected subacute infarcts within the left basal ganglia and left diego radiata. ACT 112: Negative or not required by law. Electronically signed by: Issa Graf M.D. 05/18/2024 12:23 PM Chest X-Ray 05/18/24 11:00 XR chest 1V portable CLINICAL HISTORY: Altered mental status COMPARISON STUDY: Chest radiograph April 08, 2018. FINDINGS: Lung volumes are normal. There is no consolidation. Linear right lower lung density suggests atelectasis. There is no pneumothorax or pleural effusion. Cardiac size is normal. Mediastinal contours are normal. There is no evidence for pulmonary edema. IMPRESSION: No acute cardiopulmonary findings. ACT 112: Negative or not required by law. Electronically signed by: Issa Garf M.D. 05/18/2024 11:41 AM Abdomen/Pelvis CT 05/18/24 19:14 Exam(s): CT ABDOMEN + PELVIS Without Contrast EXAM: CT Abdomen and Pelvis Without Intravenous Contrast CLINICAL HISTORY: [place] hematuria. Assess. TECHNIQUE: Axial computed tomography images of the abdomen and pelvis without intravenous contrast. CTDI is 22.78 mGy and DLP is 1179.28 mGy-cm. Automated exposure control was utilized for the study. A dose lowering technique was utilized adhering to the principles of ALARA. COMPARISON: CT abdomen and pelvis with contrast dated 04/15/2018 FINDINGS: Artifacts: Scatter artifact likely related to patient's arm position. Limitations: There is respiratory artifact, which degrades image quality on multiple image slices. Lung bases: Curvilinear changes noted at the lung bases. No consolidation. ABDOMEN: Liver: Unremarkable. Gallbladder and bile ducts: Unremarkable. No calcified stones. No ductal dilation. Pancreas: Unremarkable. No ductal dilation. Spleen: Unremarkable. No splenomegaly. Adrenals: Unremarkable. No mass. Kidneys and ureters: The unenhanced kidneys demonstrate similar contours to the prior examination. No hydronephrosis, nephrolithiasis or ureteral stones. The previously noted cortical cyst posteriorly at the midpole of the left kidney is grossly stable, measuring approximately 8.5 mm. Detail evaluation limited. Stomach and bowel: No evidence for bowel obstruction. Evaluation of the bowel mucosa is slightly limited without contrast. Extensive diverticulosis noted involving the distal descending and sigmoid colon. No obvious diverticulitis. PELVIS: Appendix: A normal caliber appendix is noted in the right lower quadrant. Bladder: A Dominguez catheter is noted in the bladder. There is extensive hyperdense material throughout the bladder. Is most consistent with hemorrhagic clot burden throughout the bladder. Detail evaluation limited without contrast. No stones. Reproductive: Prostatic hypertrophy. ABDOMEN and PELVIS: Intraperitoneal space: Unremarkable. No free air. No significant fluid collection. Bones/joints: No acute fracture. No dislocation. Soft tissues: Hyperdense crescentic and irregular soft tissue swelling noted superficial to the right common femoral vasculature at the right groin. Vasculature: Unremarkable. No abdominal aortic aneurysm. Lymph nodes: Unremarkable. No enlarged lymph nodes. IMPRESSION: 1. The unenhanced kidneys demonstrate similar contours to the prior examination. No hydronephrosis, nephrolithiasis or ureteral stones. The previously noted cortical cyst posteriorly at the midpole of the left kidney is grossly stable, measuring approximately 8.5 mm. Detail evaluation limited. 2. A Dominguez catheter is noted in the bladder. There is extensive hyperdense material throughout the bladder. The appearance is most consistent with brain clot burden. No obvious focal bladder wall thickening. Detail evaluation limited. Prostatic hypertrophy. 3. Hyperdense crescentic and irregular soft tissue swelling noted superficial to the right common femoral vasculature at the right groin. Please correlate clinically for attempted vascular access in this region. Electronically signed by: George Newman MD 05/18/24 22:08 PM Abdomen/Pelvis CT 05/24/24 08:48 CT OF THE ABDOMEN AND PELVIS WITHOUT CONTRAST CLINICAL HISTORY: Gross hematuria. COMPARISON STUDY: CT of the abdomen and pelvis May 18, 2024. TECHNIQUE: Axial images of the abdomen and pelvis were obtained without IV contrast. Images were reviewed in the axial, sagittal, and coronal planes. Automated exposure control was utilized for the study. A dose lowering technique was utilized adhering to the principles of ALARA. FINDINGS: No pneumatosis, free air or portal venous gas is present. No renal, ureteral or bladder calculi are present. There is no hydronephrosis. A Dominguez balloon within the bladder is noted. Hyperdense material within the bladder is again noted. This suggests a moderate amount of clot. Sensitivity for detection of urothelial lesions is diminished on unenhanced exam. Prostate is enlarged, measuring 6.5 cm in caliber. A small amount of hemorrhage within the right groin is noted. Density of the clot has decreased since prior CT. Evaluation the remainder of the abdomen and pelvis is suboptimal on this unenhanced examination. Liver, spleen, adrenal glands and pancreas are unremarkable with the exception of pancreatic glandular atrophy. There is no lymphadenopathy. There is no evidence for a bowel obstruction. Note is made of extensive colonic diverticulosis without evidence for acute diverticulitis. IMPRESSION: 1. No urinary calculi or hydronephrosis. 2. Moderate amount of hyperdense material within the bladder consistent with clot. Dominguez balloon within the bladder. 3. Enlarged prostate. 4. Redemonstration of a small amount of hemorrhage within the right groin which has decreased in density since prior CT. ACT 112: Negative or not required by law. Electronically signed by: Issa Graf M.D. 05/24/2024 11:02 AM (2) AMS (altered mental status) Altered mental status type: unspecified Qualified Code(s): R41.82 - Altered mental status, unspecified
[2024-05-29 06:43] LABS: Hemoglobin 12.9 g/dl (14.0-18.0); Mean Corpuscular Hemoglobin 29.3 pg (25.0-34.0); Mean Corpuscular Hgb Conc 33.9 g/dL (32.0-36.0); Mean Corpuscular Volume 86.4 fL (80.0-100.0); Mean Platelet Volume 10.2 fL (9.4-12.4); Platelet Count 406 K/uL (130-400); RDW Coefficient of Variation 13.7 % (11.5-14.5); RDW Standard Deviation 42.8 fL (36.4-46.3); White Blood Count 7.45 K/ul (4.8-10.8)
[2024-05-29 07:00] LABS: BUN Creatinine Ratio 25.8 (10-20); Calcium 9.2 mg/dl (8.6-10.3); Creatinine Clr Calc Pharmacy 36.7 ml/min; Potassium 4.1 mmol/L (3.5-5.1)
--- NOTE | 2024-05-29 07:39 | Hospitalist Progress Note ---
Date of Service May 29, 2024 Assessment & Plan (1) Gross hematuria: (2) AMS (altered mental status): Plan This is a 84 y/o male with recent acute CVA, DM2, CKD3, MCI, HTN, GERD, dyslipidemia, and other history as outlined below who presented to the ED 05/18 from [facility] with increased lethargy. Of note, pt was given additional dose of Seroquel last night due to agitation. Review of records from [facility] revealed issues with hyperactivity delirium while admitted there, mostly seems to have issues at night. He is being managed for the following: Acute drug-induced confusion: Aphasia Recent cerebrovascular accident: has aphasia and R sided weakness from recent CVA, speech has evaluated at [facility]. observed swallowing medications without difficulty; continue to require supervision and assistance with meals. Soft, bite-size diet. HOB at 90 degrees with any oral intake including medications. Admitting CT head showed subacute infarcts similar in distribution areas of infarct seen on MRI of 05/10/24 at [facility] on EPIC. Suspect confusion due to medication, not progression of CVA. By 05/19 AM, patient back to his baseline mentation. Seroquel decreased to 25mg BID on 05/24 - lethargic this AM, VBG checked and WNL, more awake by noon. AM Seroquel dose reduced to 12.5mg (first dose 05/29) keeping PM at 25mg Has not required IM Zyprexa; consider discontinuation on 05/30 Delirium precautions; occasional aggressiveness with tending to pull out medical equipment including Dominguez catheter soft restraints removed overnight; discontinued order Continue DAPT and home statin for recent CVA Remains otherwise medically stable, no longer requiring one-to-one sitter PT/OT to see now since more alert - recommending return to [facility] for rehab once medically stable if mental status worsens consider repeat head CT to monitor for progression of CVA Acute on chronic kidney failure: -> resolving Baseline creatinine around 1.5, admitting creatinine of 1.85. Trended up to 2.57 05/22. Holding losartan, chlorthalidone 05/29 Cr back to baseline 1.59 today BP normotensive (131-90)- continue holding chlorthalidone, losartan Does follow with Nephro as an outpatient with [facility] Hematuria: -> resolved Patient noted to have vernon hematuria and condom cath 05/18. 05/18 UA reviewed. 05/18 CTAP reviewed - Redemonstration of stable left renal cortical cyst, 8.5 cm. No bladder wall thickening, blood clot burden within the bladder noted. Urology consulted, status post cystoscopy 05/19. Follow-up with urology as an outpatient. Ciprofloxacin initiated 05/19, has been completed Hematuria has cleared as of 05/27 -> resumed aspirin 81mg, SQ heparin Dominguez removed 05/28; 0530 spontaneous voiding trial; urinary incontinence. Bladder scan as necessary PRN Other chronic medical conditions: Continue with/resume home meds as when able. T2DM: Chronic, stable. Sliding scale insulin. HTN: Chronic, stable. Holding chlorthalidone and olmesartan due to MICHAEL concern. Continue to monitor. As needed blood pressure medication; continued to be normotensive. CODE STATUS: DNR/DNI DVT prophylaxis: SQ heparin Dispo: PT/OT recommending return to [facility] when medically stable. Extensive discussion with daughter Marcia CERVANTES) at [phone]. She is processing extreme change since stroke, lives in [place] but looking to visit to better participate in decision making. She is hoping to fly to [place] on 06/05 and stay through 06/11. I spent a total of 56 minutes coordinating, documenting, and providing care for this patient excluding time spent in the performance of separately billed ser vices. Admission and Anticipated Discharge Date Admission Date: May 20, 2024 Supervising Physician Co-Signing Physician Notes 05/29/2024 The patient was seen and examined in medical telemetry unit He is much better today and is more alert and awake Has been communicating reasonably On examination Lying in bed without any acute distress Remains hemodynamically stable Other system examination is unremarkable His labs and medications reviewed Remains pleasantly confused without any acute delirium and is off of one-to-one sitter Awaiting placement Agree with assessment and plan as outlined above by Leda PADILLA and take the full responsibility of care in the hospital DR Ramonita Downey Subjective Pt seen and examined in 286-2. patient lying in his bed in no apparent distress; fully Patient was notably lethargic yesterday but seems more interactive today and was awake throughout my examination and interaction. He followed simple commands with intent including squeezing his left hand and wiggling his toes, smiling; right arm is flaccid secondary to recent stroke. I personally gave patient his medications in pudding and he swallowed them appropriately without signs of pocketing. At 0530 he did have an episode of urinary incontinence/spontaneous voiding trial. Soft restraints have been off all night and will discontinue order. No acute episodes overnight and per telemetry remains sinus bradycardia 50 to the 60s. 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 On RA GI: Abdomen S/NT/ND, Ax4 bowel sounds, (-) CVA tenderness Musculoskeletal: 5/5 LUE strength, 5/5 LLE strength. Entire R side flacidity Skin: (-) rashes , (-) erythema. Psych: euthymic mood Results & Data Results & Data Vital Signs (Past 12 Hours) Vital Signs Temp Pulse Pulse Resp BP Pulse Ox O2 Del Method 05/29/24 07:25 63 05/29/24 03:29 36.6 C 59 L 18 131/90 94 Room Air 05/28/24 23:38 36.3 C L 76 18 146/68 H 95 Room Air 05/28/24 21:44 60 05/28/24 20:12 Room Air 05/28/24 20:06 36.4 C L 72 20 122/78 95 Room Air Laboratory Results Short CBC 05/29/24 Range/Units 06:06 WBC 7.45 (4.8-10.8) K/ul Hgb 12.9 L (14.0-18.0) g/dl Hct 38.0 L (42.0-52.0) % Plt Count 406 H (130-400) K/uL BMP 05/29/24 06:06 Sodium 139 Potassium 4.1 Chloride 108 H Carbon Dioxide 24 BUN 41 H Creatinine 1.59 H Glucose 147 H Calcium 9.2 (2) AMS (altered mental status) Altered mental status type: unspecified Qualified Code(s): R41.82 - Altered mental status, unspecified
[2024-05-29] MEDS: QUEtiapine FUMARATE 25 MG TABLET PO SCH (08:44)
[2024-05-30] MEDS: traMADol HCL 50 MG TABLET PO STA (04:27)
[2024-05-30 06:38] LABS: Calcium 9.4 mg/dl (8.6-10.3); Creatinine Clr Calc Pharmacy 42.1 ml/min
--- NOTE | 2024-05-30 13:44 | Hospitalist Progress Note ---
Date of Service May 30, 2024 Assessment & Plan (1) Gross hematuria: (2) AMS (altered mental status): Plan This is a 84 y/o male with recent acute CVA, DM2, CKD3, MCI, HTN, GERD, dyslipidemia, and other history as outlined below who presented to the ED 05/18 from [facility] with increased lethargy. Of note, pt was given additional dose of Seroquel last night due to agitation. Review of records from [facility] revealed issues with hyperactivity delirium while admitted there, mostly seems to have issues at night. He is being managed for the following: Acute drug-induced confusion: Aphasia Recent cerebrovascular accident: has aphasia and R sided weakness from recent CVA, speech has evaluated at [facility]. observed swallowing medications without difficulty; continue to require supervision and assistance with meals. Soft, bite-size diet. HOB at 90 degrees with any oral intake including medications. Admitting CT head showed subacute infarcts similar in distribution areas of infarct seen on MRI of 05/10/24 at [facility] on EPIC. Suspect confusion due to medication, not progression of CVA. By 05/19 AM, patient back to his baseline mentation. Seroquel decreased to 25mg BID on 05/24 - lethargic this AM, VBG checked and WNL, more awake by noon. AM Seroquel dose reduced to 12.5mg (first dose 05/29) keeping PM at 25mg Has not required IM Zyprexa; consider discontinuation on 05/30 Delirium precautions; occasional aggressiveness with tending to pull out medical equipment including Dominguez catheter soft restraints removed overnight; discontinued order Continue DAPT and home statin for recent CVA Remains otherwise medically stable, no longer requiring one-to-one sitter PT/OT to see now since more alert - recommending return to [facility] for rehab once medically stable with waxing and waning mental status and known expressive aphagia. Ordered head CT today to see if any changes/new development, could help family with decision making also. Would consider Palliative consultation for GOC. Rec for [facility] once appropriate; I think SNF would be better suited. Do not forsee him returning to baseline. Acute on chronic kidney failure: -> resolving Baseline creatinine around 1.5, admitting creatinine of 1.85. Trended up to 2.57 05/22. Holding losartan, chlorthalidone 05/30 Cr back to baseline 1.43 today BP normotensive (131-90)- continue holding chlorthalidone, losartan if persistent elevated BP and continued improved renal function, consider resuming chlorthalidone, losartan Does follow with Nephro as an outpatient with [facility] Hematuria: -> resolved Patient noted to have vernon hematuria and condom cath 05/18. 05/18 UA reviewed. 05/18 CTAP reviewed - Redemonstration of stable left renal cortical cyst, 8.5 cm. No bladder wall thickening, blood clot burden within the bladder noted. Urology consulted, status post cystoscopy 05/19. Follow-up with urology as an outpatient. Ciprofloxacin initiated 05/19, has been completed Hematuria has cleared as of 05/27 -> resumed aspirin 81mg, SQ heparin Dominguez removed 05/28; 05 spontaneous voiding trial; urinary incontinence. Bladder scan as necessary PRN Other chronic medical conditions: Continue with/resume home meds as when able. T2DM: Chronic, stable. Sliding scale insulin. HTN: Chronic, stable. Holding chlorthalidone and olmesartan due to MICHAEL concern. Continue to monitor. As needed blood pressure medication; continued to be normotensive. CODE STATUS: DNR/DNI DVT prophylaxis: SQ heparin Dispo: PT/OT recommending return to [facility] when medically stable. Extensive discussion with daughter Marcia CERVANTES) at [phone]. She is processing extreme change since stroke, lives in [place] but looking to visit to better participate in decision making. She is hoping to fly to [place] on 06/05 and stay through 06/11. I spent a total of 56 minutes coordinating, documenting, and providing care for this patient excluding time spent in the performance of separately billed services. Admission and Anticipated Discharge Date Admission Date: May 20, 2024 Supervising Physician Co-Signing Physician Notes Attending addendum: The patient was seen and examined in medical telemetry unit He has been stable but not being talking today Remains drowsy and pleasantly confused On examination Lying in bed without any acute distress Hemodynamically stable and is afebrile Noted to be generally very weak and lethargic and remains pleasantly confused His labs and imaging studies reviewed No significant findings noted in CAT scan of the head No hematuria noted Remains medically stable with dementia Agree with assessment and plan as outlined above by Leda PADILLA and take the full responsibility of care in the hospital Dr Ramonita Downey Subjective Pt seen and examined in 286-2. patient lying in his bed in no apparent distress; very sleepy today compared to yesterday, which seems to be a new pattern for him He followed simple commands with intent including squeezing his left hand and wiggling his toes, not smiling today. Right arm is flaccid secondary to recent stroke. I personally gave patient his medications in pudding and he swallowed them appropriately without signs of pocketing. No acute episodes overnight and per telemetry remains sinus bradycardia 50 to the 60s. 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 On RA GI: Abdomen S/NT/ND, Ax4 bowel sounds, (-) CVA tenderness Musculoskeletal: 5/5 LUE strength, 5/5 LLE strength. Entire R side flacidity Skin: (-) rashes , (-) erythema. scattered old ecchymosis on upper arms Psych: euthymic mood Results & Data Results & Data Vital Signs (Past 12 Hours) Vital Signs Temp Pulse Resp BP Pulse Ox O2 Del Method 05/30/24 12:22 Room Air 05/30/24 11:59 36.5 C 81 16 153/74 H 96 Room Air Laboratory Results [facility] 05/30/24 05:52 Sodium 138 Potassium 4.0 Chloride 108 H Carbon Dioxide 23 BUN 40 H Creatinine 1.43 H Glucose 161 H Calcium 9.4 (2) AMS (altered mental status) Altered mental status type: unspecified Qualified Code(s): R41.82 - Altered mental status, unspecified
--- NOTE | 2024-05-30 15:13 | CT Scan Report ---
CT head without contrast History: Altered mental status Comparison: 05/18/2024 Technique: Using multidetector thin collimation helical acquisition technique, axial, coronal and sagittal CT images from the skull base to the vertex were obtained without intravenous contrast. Dose reduction techniques were achieved by using automatic exposure control and/or adjustment of mA and/or kV according to patient size and/or use of iterative reconstruction technique. Findings: No intracranial hemorrhage, mass-effect, or midline shift. The ventricles are proportionate to the cerebral sulci. There is marked cerebral atrophy. Evolving areas of previously seen infarct which are decreasing in conspicuity in the high left frontal lobe, the left caudate nucleus, and in the left temporal parietal lobe. No convincing evidence for new infarct. The basal cisterns are patent. The visualized paranasal sinuses are clear. Mastoid air cells are clear. Impression: No acute intracranial pathology. Electronically signed by Sathya Claire 05-30-2024 3:13 PM
[2024-05-31 08:20] LABS: BUN Creatinine Ratio 26.9 (10-20); Calcium 9.7 mg/dl (8.6-10.3); Creatinine Clr Calc Pharmacy 37.4 ml/min; Potassium 3.9 mmol/L (3.5-5.1)
--- NOTE | 2024-05-31 11:47 | Hospitalist Progress Note ---
Date of Service May 31, 2024 Assessment & Plan (1) Gross hematuria: (2) AMS (altered mental status): Plan This is a 84 y/o male with recent acute CVA, DM2, CKD3, MCI, HTN, GERD, dyslipidemia, and other history as outlined below who presented to the ED 05/18 from [facility] with increased lethargy. Of note, pt was given additional dose of Seroquel last night due to agitation. Review of records from [facility] revealed issues with hyperactivity delirium while admitted there, mostly seems to have issues at night. He is being managed for the following: Acute drug-induced confusion: Aphasia Recent cerebrovascular accident: has aphasia and R sided weakness from recent CVA, speech has evaluated at [facility]. observed swallowing medications without difficulty; continue to require supervision and assistance with meals. Soft, bite-size diet. HOB at 90 degrees with any oral intake including medications. Admitting CT head showed subacute infarcts similar in distribution areas of infarct seen on MRI of 05/10/24 at [facility] on EPIC. Suspect confusion due to medication, not progression of CVA. By 05/19 AM, patient back to his baseline mentation. Seroquel decreased to 25mg BID on 05/24 - lethargic this AM, VBG checked and WNL, more awake by noon. AM Seroquel dose reduced to 12.5mg (first dose 05/29) keeping PM at 25mg Has not required IM Zyprexa Delirium precautions; occasional aggressiveness with tending to pull out medical equipment including Dominguez catheter soft restraints removed overnight; discontinued order Continue DAPT and home statin for recent CVA Remains otherwise medically stable, no longer requiring one-to-one sitter PT/OT to see now since more alert - recommending return to [facility] for rehab once medically stable with waxing and waning mental status and known expressive aphasia. --repeat Head CT on 05/30 w/o acute change, showing evolving changes of recent CVA but decreasing in size Rec for [facility] once appropriate; I think SNF would be better suited. Do not forsee him returning to baseline. Acute on chronic kidney failure: -> resolving Baseline creatinine around 1.5, admitting creatinine of 1.85. Trended up to 2.57 05/22. Holding losartan, chlorthalidone Cr at baseline 1.5 Does follow with Nephro as an outpatient with [facility] Hematuria: -> resolved Patient noted to have vernon hematuria and condom cath 05/18. 05/18 UA reviewed. 05/18 CTAP reviewed - Re demonstration of stable left renal cortical cyst, 8.5 cm. No bladder wall thickening, blood clot burden within the bladder noted. Urology consulted, status post cystoscopy 05/19. Follow-up with urology as an outpatient. Ciprofloxacin initiated 05/19, has been completed Hematuria has cleared as of 05/27 -> resumed aspirin 81mg, SQ heparin Dominguez removed 05/28; 0530 spontaneous voiding trial; urinary incontinence. Bladder scan as necessary PRN Plavix and heparin initially placed on hold, will resume HTN: pt is hypotensive later this morning, BP 84/54, HR 106. Chlorthalidone and losartan already on hold, will further hold hydralazine, last dose a.m. of 05/31. Suspect this may be related to hydralazine. Will give 500ml NSS bolus. Lactate, CBC, BMP, Procal WNL, no clinical suspicion for infection. Other chronic medical conditions: Continue with/resume home meds as when able. T2DM: Chronic, stable. Sliding scale insulin. CODE STATUS: DNR/DNI DVT prophylaxis: SQ heparin Dispo: PT/OT recommending return to [facility] when medically stable. I spent a total of 47 minutes coordinating, documenting, and providing care for this patient excluding time spent in the performance of separately billed services. Care coordinated with Dr. Downey, please see addendum Admission and Anticipated Discharge Date Admission Date: May 20, 2024 Supervising Physician Co-Signing Physician Notes 05/31/2024 The patient was seen and examined in medical telemetry unit He remains confused and lying in bed without any meaningful conversation On examination Lying in bed without any apparent distress Hemodynamically stable Clear chest, heartS1-S2, regular, abdomenbenign CNSalert and awake. Very confused and drowsy without any meaningful conversation. Moving all limbs His labs and medications reviewed Remained confused and needs media center assistant with ADLs including feeding Will need placement Agree with assessment and plan as outlined above by Nena Hodge PA-C and take the full responsibility of care in the hospital Dr Ramonita Downey Subjective Pt seen in room 286-2 with nurse Bernie at bedside. She endorses no concerns and reports pt is non compliant and communication is very difficult given aphasia. ROS unreliable/unobtainable given aphasia. Review of Systems Review of Systems: All systems reviewed & are unremarkable except as noted in HPI & below Physical Exam Physical Exam: Gen: Tall, Thin, M, lying in bed, alert and oriented, severe expressive aphasia HEENT: Normocephalic, atraumatic, conjunctivae moist, sclerae anicteric, mucous membranes moist. Lung: Clear to Auscultation bilaterally, no wheezes/rales/rhonchi Heart: Regular rate, regular rhythm, no murmurs, rubs, or gallops Abdomen: Soft, NT, ND +BS x 4 Extremities: No edema, RHP Skin: Warm, no rash, negative turgor. Results & Data Results & Data Vital Signs (Past 12 Hours) Vital Signs Temp Pulse Pulse Resp BP Pulse Ox O2 Del Method 05/31/24 11:07 36.5 C 106 H 18 84/54 L 95 Room Air 05/31/24 07:52 36.3 C L 101 H 18 121/67 93 Room Air 05/31/24 04:16 36.7 C 76 20 136/75 95 Room Air Laboratory Results I have independently reviewed and interpreted patient's cbc, bmp BMP 05/31/24 07:15 Sodium 140 Potassium 3.9 Chloride 108 H Carbon Dioxide 23 BUN 42 H Creatinine 1.56 H Glucose 145 H Calcium 9.7 Medications Administered Current Inpatient Medications Acetaminophen (Acetaminophen 325 Mg Tab) 650 mg PO Q6H CRISTIAN Stop: 06/20/24 15:59 Last Admin: 05/31/24 09:25 Dose: 650 mg Allopurinol (Allopurinol 100 Mg Tab) 100 mg PO DAILY CRITSIAN Stop: 06/18/24 08:59 Last Admin: 05/31/24 08:46 Dose: 100 mg Aspirin (Aspirin 81 Mg Ectab) 81 mg PO DAILY CRISTIAN Stop: 06/18/24 08:59 Last Admin: 05/31/24 08:46 Dose: 81 mg Atorvastatin Calcium (Atorvastatin 40 Mg Tab) 40 mg PO PM CRISTIAN Stop: 06/17/24 20:59 Last Admin: 05/30/24 21:20 Dose: 40 mg Calamine/Pramoxine (Calamine/Pramoxine Lotion 180 Appln/180 Ml Btl) 1 appln EXT BID PRN PRN Reason: for rash at back Stop: 06/19/24 11:18 Last Admin: 05/23/24 20:35 Dose: 1 appln Chlorhexidine Gluconate (Chlorhexidine Gluconate 0.12% 480 Ml) 15 ml MT BID CRISTIAN Stop: 06/17/24 20:59 Last Admin: 05/31/24 08:47 Dose: 15 ml Clopidogrel Bisulfate (Clopidogrel Bisulfate 75 Mg Tab) 75 mg PO DAILY CRISTIAN Stop: 06/18/24 08:59 Last Admin: 05/26/24 09:14 Dose: 75 mg Cyanocobalamin (Cyanocobalamin (B-12) 500 Mcg Tablet) 1,000 mcg PO QPM CRISTIAN Stop: 06/17/24 20:59 Last Admin: 05/30/24 21:20 Dose: 1,000 mcg Dextrose (Dextrose 50% 50 Ml Syringe) 25 - 50 ml IV UD PRN; Protocol PRN Reason: Hypoglycemia Protocol Stop: 06/17/24 15:57 Ferrous Sulfate (Ferrous Sulfate 325 Mg Tab) 325 mg PO QPM CRISTIAN Stop: 06/17/24 20:59 Last Admin: 05/30/24 21:19 Dose: 325 mg Glucagon (Glucagon For Inj 1 Mg Vial) 1 mg SQ UD PRN; Protocol PRN Reason: Hypoglycemia Protocol Stop: 06/17/24 15:57 Glucose (Glucose 40% Gel 15 Gm Tube) 15 - 30 gm PO UD PRN; Protocol PRN Reason: Hypoglycemia Protocol Stop: 06/17/24 15:57 Glucose (Glucose 10 Tab/Tube) 4 - 8 tab PO UD PRN; Protocol PRN Reason: Hypoglycemia Protocol Stop: 06/17/24 15:57 Heparin Sodium (Porcine) (Heparin Sod 5,000 Unit/0.5 Ml Vial) 5,000 units SQ Q12 CRISTIAN Stop: 06/19/24 20:59 Last Admin: 05/31/24 08:49 Dose: 5,000 units Hydralazine HCl (Hydralazine 10 Mg Tab) 10 mg PO BID CRISTIAN Stop: 06/17/24 20:59 Last Admin: 05/31/24 08:47 Dose: 10 mg Sodium Chloride (Nss) 500 mls @ 999 mls/hr IV .Q31M ONE Stop: 05/31/24 12:00 Last Admin: 05/31/24 11:55 Dose: 999 mls/hr Insulin Aspart (Insulin Aspart Per Unit Charge) 0 units SC ACHS CRISTIAN Stop: 06/17/24 16:29 Last Admin: 05/31/24 09:25 Dose: 5 units Labetalol HCl (Labetalol Hcl Iv 5 Mg/Ml 20ml) 10 mg IV Q4H PRN PRN Reason: HTN\ Stop: 06/18/24 11:25 Last Admin: 05/19/24 19:39 Dose: 10 mg Lactobacillus Acidophilus (Advanced Probiotic 625 Mg Capsule) 1,250 mg PO DAILY CRISTIAN Stop: 06/22/24 08:59 Last Admin: 05/31/24 08:46 Dose: 1,250 mg Latanoprost (Latanoprost 0.005% Op Soln 2.5 Ml Btl) 1 drops OPB QPM CRISTIAN Stop: 06/17/24 20:59 Last Admin: 05/30/24 21:18 Dose: 1 drops Losartan Potassium (Losartan Potassium 50 Mg Tab) 50 mg PO DAILY CRISTIAN Stop: 06/20/24 08:59 Last Admin: 05/21/24 13:10 Dose: 50 mg Melatonin (Melatonin 3 Mg Tab) 3 mg PO HS CRISTIAN Stop: 06/17/24 20:59 Last Admin: 05/30/24 21:19 Dose: 3 mg Miscellaneous (Carbohydrates For Hypoglycemia ) 15 - 30 gm PO UD PRN PRN Reason: Hypoglycemia Protocol Stop: 06/17/24 15:57 Olanzapine (Olanzapine 10 Mg/2.1 Ml Sdv) 2.5 mg IM Q4H PRN PRN Reason: Agitation Stop: 06/25/24 21:01 Pantoprazole Sodium (Pantoprazole 40 Mg Tab) 40 mg PO DAILY CRISTIAN Stop: 06/18/24 08:59 Last Admin: 05/31/24 08:46 Dose: 40 mg Quetiapine Fumarate (Quetiapine Fumarate 25 Mg Tablet) 25 mg PO HS CRISTIAN Stop: 06/18/24 20:59 Last Admin: 05/30/24 21:19 Dose: 25 mg Quetiapine Fumarate (Quetiapine Fumarate 25 Mg Tablet) 12.5 mg PO DAILY CRISTIAN Stop: 06/28/24 08:59 Last Admin: 05/31/24 08:46 Dose: 12.5 mg Sennosides (Senna 8.6 Mg Tab) 8.6 mg PO BID CRISTIAN Stop: 06/17/24 20:59 Last Admin: 05/31/24 08:48 Dose: 8.6 mg Vitamin D (Cholecalciferol 10 Mcg (400 Units) Tab) 20 mcg PO DAILY CRISTIAN Stop: 06/18/24 08:59 Last Admin: 05/31/24 08:45 Dose: 20 mcg (2) AMS (altered mental status) Altered mental status type: unspecified Qualified Code(s): R41.82 - Altered mental status, unspecified
[2024-05-31] MEDS: SODIUM CHLORIDE 0.9% 500 ML IV ONE (11:55)
[2024-05-31 12:02] LABS: Basophils # (auto) 0.11 K/uL (0.00-0.20); Basophils % (auto) 1.1 %; Eosinophils # (auto) 0.06 K/uL (0.00-0.50); Eosinophils % (auto) 0.6 %; Hematocrit (blood only) 38.2 % (42.0-52.0); Hemoglobin 12.9 g/dl (14.0-18.0); Immature Granulocytes # (auto) 0.04 K/uL (0.01-0.20); Immature Granulocytes % (auto) 0.4 %; Lymphocytes # (auto) 1.11 K/uL (1.20-3.40); Lymphocytes % (auto) 10.7 %; Mean Corpuscular Hemoglobin 29.5 pg (25.0-34.0); Mean Corpuscular Hgb Conc 33.8 g/dL (32.0-36.0); Mean Corpuscular Volume 87.4 fL (80.0-100.0); Monocytes # (auto) 0.68 K/uL (0.11-0.59); Monocytes % (auto) 6.6 %; Neutrophils # (auto) 8.34 K/uL (1.40-6.50); Neutrophils % (auto) 80.6 %; Platelet Count 406 K/uL (130-400); RDW Coefficient of Variation 13.7 % (11.5-14.5); RDW Standard Deviation 44.4 fL (36.4-46.3); Red Blood Count 4.37 M/uL (4.70-6.10); White Blood Count 10.34 K/ul (4.8-10.8)
[2024-05-31] MEDS: OLANZapine 10 MG/2.1 ML SDV IM PRN (13:17)
[2024-06-01 08:49] LABS: Hematocrit (blood only) 36.9 % (42.0-52.0); Hemoglobin 12.5 g/dl (14.0-18.0); Mean Corpuscular Hemoglobin 29.4 pg (25.0-34.0); Mean Corpuscular Hgb Conc 33.9 g/dL (32.0-36.0); Mean Corpuscular Volume 86.8 fL (80.0-100.0); Mean Platelet Volume 10.4 fL (9.4-12.4); Platelet Count 396 K/uL (130-400); RDW Coefficient of Variation 13.8 % (11.5-14.5); RDW Standard Deviation 43.8 fL (36.4-46.3); Red Blood Count 4.25 M/uL (4.70-6.10); White Blood Count 10.87 K/ul (4.8-10.8)
[2024-06-01 09:08] LABS: Calcium 9.4 mg/dl (8.6-10.3); Creatinine Clr Calc Pharmacy 34.9 ml/min; Potassium 4.4 mmol/L (3.5-5.1)
--- NOTE | 2024-06-01 11:33 | Psychiatric Consultation ---
Date of Consultation June 01, 2024 Impression / Recommendations Impression Diagnostically consistent with encephalopathy/delirium likely superimposed on cognitive changes 2/2 recent CVA with unclear impact on comprehension given significant expressive aphasia. Unfortunately there are no known medications to cure or shorten the duration of delirium; rather antipsychotics are used at times to help with sleep/appetite/psychomotor agitation and hallucinations if these symptoms are causing significant distress and/or interfering with acute safety. Duration of delirium varies broadly with persistent delirium (defined as lasting for weeks or months) occurring frequently with [id number]% of patients exhibiting some symptoms of delirium at 6 months after symptom onset, see:Apolinar Baer., Francia Quarles., Holly Gomezet al.Delirium.[facility] Rev Dis Primers6, 90 (2020). https://doi.org/10.1038/[email or web address]. Goal s to avoid medication management of behaviors if possible by maximizing non-pharmacologic strategies for behavioral management. However, given ongoing agitation/aggression/restlessness agree with use of antipsychotic as risk/benefit profile favors treatment and so long as benefits are being seen without significant side effects. Note all antipsychotic medications carry black box warning for increased risk of all-cause mortality in setting of dementia/cognitive changes and metabolic side effects can increase risk for cardiac and CVA events. Overall, I spent a total of 60 minutes with this case including review of chart records, review of labwork, review of EKG QTc, direct evaluation of the patient at bedside, counseling the patient, discussion of the patient with the Nurse and with the hospitalist provider, discussion with the psychiatric liason during clinical rounds and documentation in the electronic health record. 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 -Continue medical workup to rule out and treat any underlying causes contributing to potential delirium, avoid or limit use of deliriogenic medications (benzodiazepines, opioids, anticholinergics) -Continue with delirium prevention measures: raising blinds during the day, closing at night, frequent re-orientation, contact with family/friends, explaining procedures/nursing care measures prior to physical contact, correct any hearing and visual impairments -Consider use of music as sometimes individuals with expressive aphasia can sing or find comfort from musical genres they previously enjoyed -For behavioral emergency: olanzapine 2.5 mg IM x 1 (DO NOT exceed 10mg per 24 hours, check EKG if IM dose required, NEVER co-administer with IM or IV benzodiazepines). Psych History Identifying Data 84 yo man with a history of recent acute CVA, DM2, CKD3, MCI, HTN, GERD, dyslipidemia, admitted from physical rehab for worsening lethargy and confusion. Psychiatry consulted for medication recommendations for delirium and agitation in setting of recent stroke. Chief Complaint sleeping History of Present Illness Mg was sleeping this morning, seemed to briefly open his eyes. RN was bedside and discussed that he typically does a bit better in the morning but with increased restlessness and agitation as the day goes on. Ongoing confusion. At times seems to follow commands, other times doesn't seem to understands. Attempts continue to be made to use visual communication board, he has pushed this away. Expressive aphasia present. Concerns for Seroquel causing excessive sedation but then at other times he develops significant restlessness/agitation including trying to pull out catheter (now removed). Yesterday he required olanzapine 2.5mg IM at ~1pm. Allergies Allergy/AdvReac Type Severity Reaction Status Date / Time amoxicillin Allergy Mild FEVER, RASH Verified 07/18/22 20:15 Home Medications Medication Instructions Recorded Confirmed Type aspirin 81 mg tablet,delayed 81 mg PO DAILY 07/18/22 05/18/24 History release cholecalciferol (vitamin D3) 10 20 mcg PO DAILY 07/18/22 05/18/24 History mcg (400 unit) tablet (Vitamin D3) cyanocobalamin (vitamin B-12) 1,000 mcg PO QPM 07/18/22 05/18/24 History 1,000 mcg tablet (Vitamin B-12) empagliflozin 25 mg tablet 25 mg PO QAM 07/18/22 05/18/24 History (Jardiance) ferrous sulfate 325 mg (65 mg 325 mg PO QPM 07/18/22 05/18/24 History iron) tablet [id number] C-Mn 500 1 cap PO AMHS 07/18/22 05/18/24 History mg-400 mg capsule allopurinol 100 mg tablet 100 mg PO DAILY 05/08/24 05/18/24 History hydralazine 10 mg tablet 10 mg PO BID 05/08/24 05/18/24 History latanoprost 0.005 % eye drops 1 drp OPB QPM 05/08/24 05/18/24 History acetaminophen 325 mg tablet 650 mg PO QID PRN Fever Or Pain 05/18/24 05/18/24 History atorvastatin 40 mg tablet 40 mg PO PM 05/18/24 05/18/24 History chlorhexidine gluconate 0.12 % 15 ml buccal BID 05/18/24 05/18/24 History mouthwash chlorthalidone 25 mg tablet 25 mg PO DAILY 05/18/24 05/18/24 History clopidogrel 75 mg tablet 75 mg PO DAILY 05/18/24 05/18/24 History melatonin 3 mg tablet 3 mg PO HS 05/18/24 05/18/24 History olmesartan 20 mg tablet 20 mg PO DAILY 05/18/24 05/18/24 History pantoprazole 40 mg tablet,delayed 40 mg PO DAILY 05/18/24 05/18/24 History release potassium chloride 10 mEq 40 meq PO DAILY 05/18/24 05/18/24 History tablet,extended release(part/cryst) quetiapine 25 mg tablet 25 mg PO DAILY 05/18/24 05/18/24 History quetiapine 50 mg tablet 50 mg PO HS 05/18/24 05/18/24 History sennosides 8.6 mg tablet (senna) 8.6 mg PO BID 05/18/24 05/18/24 History Patient History Medical History (Updated 06/01/24 @ 13:37 by Shama Comer MD) Diverticulitis GI bleed Alcohol use HTN (hypertension) CKD (chronic kidney disease), stage III Diabetes mellitus, type II GERD (gastroesophageal reflux disease) Surgical History (Updated 05/18/24 @ 13:53 by Eleanor Maynard PA-C) History of vasectomy History of colonoscopy Family History Other Alzheimer disease Social History Smoking Status: Unknown if ever smoked Second Hand Exposure: No; Preferred Language: Marshallese Communication Ability: Impaired Cardiology Nurse Practitioner Required: No Beliefs That Will Affect Care: None Current Living Situation: Rehab Assistive Devices: None Physical Exam Psychiatric: Orientation: + not alert Motor Behavior: n EPS (no evidence for dystonia or tremor on observation) Vital Signs (Past 24 Hours): Last Vital Signs Temp 36.4 C L 06/01/24 10:51 Pulse 90 06/01/24 10:51 Resp 16 06/01/24 10:51 BP 143/62 H 06/01/24 10:51 Pulse Ox 95 06/01/24 10:51 O2 Del Method Room Air 06/01/24 10:51 O2 Flow Rate 4 05/21/24 04:06 Results & Data (PSY) Medications Administered Acetaminophen (Acetaminophen 325 Mg Tab) 650 mg PO Q6H CRISTIAN Stop: 06/20/24 15:59 Last Admin: 06/01/24 10:19 Dose: 650 mg Documented By: Admin: 06/01/24 04:01 Dose: 650 mg Documented By: Admin: 05/31/24 20:29 Dose: 650 mg Documented By: Admin: 05/31/24 16:08 Dose: 650 mg Documented By: Admin: 05/31/24 09:25 Dose: 650 mg Documented By: Admin: 05/31/24 05:50 Dose: 650 mg Documented By: Admin: 05/30/24 21:17 Dose: 650 mg Documented By: Admin: 05/30/24 15:46 Dose: 650 mg Documented By: Admin: 05/30/24 11:06 Dose: 650 mg Documented By: Admin: 05/30/24 03:53 Dose: 650 mg Documented By: Admin: 05/29/24 21:51 Dose: 650 mg Documented By: Admin: 05/29/24 17:01 Dose: 650 mg Documented By: Admin: 05/29/24 08:56 Dose: 650 mg Documented By: Admin: 05/29/24 03:57 Dose: Not Given Documented By: KAJhoan Admin: 05/28/24 20:51 Dose: 650 mg Documented By: Admin: 05/28/24 16:55 Dose: 650 mg Documented By: Admin: 05/28/24 09:23 Dose: 650 mg Documented By: Admin: 05/28/24 04:00 Dose: Not Given Documented By: Admin: 05/27/24 20:22 Dose: 650 mg Documented By: Admin: 05/27/24 15:51 Dose: 650 mg Documented By: Admin: 05/27/24 09:20 Dose: 650 mg Documented By: Admin: 05/27/24 04:15 Dose: Not Given Documented By: Admin: 05/26/24 19:53 Dose: 650 mg Documented By: Admin: 05/26/24 17:28 Dose: 650 mg Documented By: Admin: 05/26/24 09:12 Dose: 650 mg Documented By: Admin: 05/26/24 04:05 Dose: Not Given Documented By: Admin: 05/25/24 22:08 Dose: 650 mg Documented By: Admin: 05/25/24 15:50 Dose: 650 mg Documented By: Admin: 05/25/24 11:12 Dose: Not Given Documented By: Admin: 05/25/24 03:20 Dose: Not Given Documented By: guest room attendant: 05/24/24 22:31 Dose: 650 mg Documented By: guest room attendant: 05/24/24 16:43 Dose: 650 mg Documented By: SL Admin: 05/24/24 09:25 Dose: 650 mg Documented By: Admin: 05/24/24 03:03 Dose: 650 mg Documented By: Admin: 05/23/24 21:11 Dose: 650 mg Documented By: Admin: 05/23/24 16:11 Dose: 650 mg Documented By: Admin: 05/23/24 09:10 Dose: 650 mg Documented By: Admin: 05/23/24 02:51 Dose: 650 mg Documented By: Admin: 05/22/24 20:58 Dose: 650 mg Documented By: Admin: 05/22/24 16:54 Dose: 650 mg Documented By: Admin: 05/22/24 09:25 Dose: 650 mg Documented By: Admin: 05/22/24 04:47 Dose: 650 mg Documented By: Admin: 05/21/24 21:58 Dose: 650 mg Documented By: Admin: 05/21/24 18:20 Dose: 650 mg Documented By: SLOANE Allopurinol (Allopurinol 100 Mg Tab) 100 mg PO DAILY CRISTIAN Stop: 06/18/24 08:59 Last Admin: 06/01/24 10:18 Dose: 100 mg Documented By: Admin: 05/31/24 08:46 Dose: 100 mg Documented By: Admin: 05/30/24 11:04 Dose: 100 mg Documented By: Admin: 05/29/24 08:44 Dose: 100 mg Documented By: Admin: 05/28/24 09:18 Dose: 100 mg Documented By: Admin: 05/27/24 08:21 Dose: 100 mg Documented By: Admin: 05/26/24 09:13 Dose: 100 mg Documented By: Admin: 05/25/24 08:45 Dose: 100 mg Documented By: Admin: 05/24/24 08:13 Dose: 100 mg Documented By: Admin: 05/23/24 08:56 Dose: 100 mg Documented By: Admin: 05/22/24 08:59 Dose: 100 mg Documented By: Admin: 05/21/24 13:09 Dose: 100 mg Documented By: Admin: 05/20/24 08:26 Dose: 100 mg Documented By: Admin: 05/19/24 08:17 Dose: 100 mg Documented By: HESHAM Aspirin (Aspirin 81 Mg Ectab) 81 mg PO DAILY CRISTIAN Stop: 06/18/24 08:59 Last Admin: 06/01/24 10:18 Dose: 81 mg Documented By: Admin: 05/31/24 08:46 Dose: 81 mg Documented By: Admin: 05/30/24 11:02 Dose: 81 mg Documented By: Admin: 05/29/24 08:44 Dose: 81 mg Documented By: Admin: 05/28/24 12:06 Dose: Not Given Documented By: Admin: 05/26/24 09:14 Dose: 81 mg Documented By: Admin: 05/25/24 09:13 Dose: 81 mg Documented By: Admin: 05/24/24 08:13 Dose: 81 mg Documented By: Admin: 05/23/24 08:56 Dose: 81 mg Documented By: Admin: 05/22/24 08:59 Dose: 81 mg Documented By: Admin: 05/21/24 13:09 Dose: 81 mg Documented By: Admin: 05/20/24 08:26 Dose: 81 mg Documented By: Admin: 05/19/24 08:17 Dose: 81 mg Documented By: HESHAM Atorvastatin Calcium (Atorvastatin 40 Mg Tab) 40 mg PO PM CRISTIAN Stop: 06/17/24 20:59 Last Admin: 05/31/24 20:31 Dose: 40 mg Documented By: Admin: 05/30/24 21:20 Dose: 40 mg Documented By: Admin: 05/29/24 21:54 Dose: 40 mg Documented By: Admin: 05/28/24 20:45 Dose: 40 mg Documented By: Admin: 05/27/24 20:32 Dose: 40 mg Documented By: Admin: 05/26/24 19:54 Dose: 40 mg Documented By: Admin: 05/25/24 22:12 Dose: 40 mg Documented By: Admin: 05/24/24 20:27 Dose: 40 mg Documented By: guest room attendant: 05/23/24 20:41 Dose: 40 mg Documented By: Admin: 05/22/24 21:02 Dose: 40 mg Documented By: Admin: 05/21/24 21:59 Dose: 40 mg Documented By: Admin: 05/20/24 20:38 Dose: 40 mg Documented By: guest room attendant: 05/19/24 20:54 Dose: 40 mg Documented By: guest room attendant: 05/18/24 20:53 Dose: 40 mg Documented By: MED Calamine/Pramoxine (Calamine/Pramoxine Lotion 180 Appln/180 Ml Btl) 1 appln EXT BID PRN PRN Reason: for rash at back Stop: 06/19/24 11:18 Last Admin: 05/23/24 20:35 Dose: 1 appln Documented By: Admin: 05/20/24 20:49 Dose: 1 appln Documented By: guest room attendant: 05/20/24 14:37 Dose: 1 appln Documented By: ARIC Chlorhexidine Gluconate (Chlorhexidine Gluconate 0.12% 480 Ml) 15 ml MT BID CRISTIAN Stop: 06/17/24 20:59 Last Admin: 06/01/24 10:32 Dose: 15 ml Documented By: RRLeslie Admin: 05/31/24 20:29 Dose: 15 ml Documented By: Admin: 05/31/24 08:47 Dose: 15 ml Documented By: Admin: 05/30/24 21:18 Dose: 15 ml Documented By: Admin: 05/30/24 11:04 Dose: 15 ml Documented By: Admin: 05/29/24 21:51 Dose: 15 ml Documented By: Admin: 05/29/24 08:46 Dose: 15 ml Documented By: Admin: 05/28/24 20:45 Dose: 15 ml Documented By: Admin: 05/28/24 12:06 Dose: Not Given Documented By: Admin: 05/27/24 20:23 Dose: 15 ml Documented By: Admin: 05/27/24 08:21 Dose: 15 ml Documented By: Admin: 05/26/24 19:54 Dose: 15 ml Documented By: Admin: 05/26/24 09:15 Dose: 15 ml Documented By: Admin: 05/25/24 22:12 Dose: 15 ml Documented By: Admin: 05/25/24 08:46 Dose: 15 ml Documented By: Admin: 05/24/24 20:23 Dose: 15 ml Documented By: guest room attendant: 05/24/24 08:16 Dose: 15 ml Documented By: Admin: 05/23/24 20:41 Dose: 15 ml Documented By: Admin: 05/23/24 09:38 Dose: 15 ml Documented By: Admin: 05/22/24 21:02 Dose: 15 ml Documented By: Admin: 05/22/24 09:34 Dose: 15 ml Documented By: Admin: 05/21/24 21:59 Dose: 15 ml Documented By: Admin: 05/21/24 13:09 Dose: 15 ml Documented By: Admin: 05/20/24 20:36 Dose: 15 ml Documented By: guest room attendant: 05/20/24 09:08 Dose: Not Given Documented By: Admin: 05/19/24 20:55 Dose: 15 ml Documented By: guest room attendant: 05/19/24 08:18 Dose: 15 ml Documented By: Admin: 05/18/24 20:54 Dose: 15 ml Documented By: CAESAR Clopidogrel Bisulfate (Clopidogrel Bisulfate 75 Mg Tab) 75 mg PO DAILY CRISTIAN Stop: 06/18/24 08:59 Last Admin: 06/01/24 10:18 Dose: 75 mg Documented By: Admin: 05/26/24 09:14 Dose: 75 mg Documented By: Admin: 05/25/24 09:14 Dose: 75 mg Documented By: Admin: 05/24/24 08:13 Dose: 75 mg Documented By: Admin: 05/23/24 08:57 Dose: 75 mg Documented By: Admin: 05/22/24 09:00 Dose: 75 mg Documented By: Admin: 05/21/24 13:10 Dose: 75 mg Documented By: Admin: 05/20/24 08:26 Dose: 75 mg Documented By: Admin: 05/19/24 08:17 Dose: 75 mg Documented By: HESHAM Cyanocobalamin (Cyanocobalamin (B-12) 500 Mcg Tablet) 1,000 mcg PO QPM CRISTIAN Stop: 06/17/24 20:59 Last Admin: 05/31/24 20:32 Dose: 1,000 mcg Documented By: Admin: 05/30/24 21:20 Dose: 1,000 mcg Documented By: Admin: 05/29/24 21:54 Dose: 1,000 mcg Documented By: Admin: 05/28/24 20:45 Dose: 1,000 mcg Documented By: Admin: 05/27/24 20:32 Dose: 1,000 mcg Documented By: Admin: 05/26/24 19:55 Dose: 1,000 mcg Documented By: Admin: 05/25/24 22:12 Dose: 1,000 mcg Documented By: Admin: 05/24/24 20:26 Dose: 1,000 mcg Documented By: guest room attendant: 05/23/24 20:40 Dose: 1,000 mcg Documented By: Admin: 05/22/24 21:01 Dose: 1,000 mcg Documented By: Admin: 05/21/24 21:59 Dose: 1,000 mcg Documented By: Admin: 05/20/24 20:37 Dose: 1,000 mcg Documented By: guest room attendant: 05/19/24 20:55 Dose: 1,000 mcg Documented By: guest room attendant: 05/18/24 20:52 Dose: 1,000 mcg Documented By: MED Ferrous Sulfate (Ferrous Sulfate 325 Mg Tab) 325 mg PO QPM CRISTIAN Stop: 06/17/24 20:59 Last Admin: 05/31/24 20:32 Dose: 325 mg Documented By: KAJhoan Admin: 05/30/24 21:19 Dose: 325 mg Documented By: Admin: 05/29/24 21:54 Dose: 325 mg Documented By: Admin: 05/28/24 20:45 Dose: 325 mg Documented By: Admin: 05/27/24 20:31 Dose: 325 mg Documented By: Admin: 05/26/24 19:54 Dose: 325 mg Documented By: Admin: 05/25/24 22:12 Dose: 325 mg Documented By: Admin: 05/24/24 20:25 Dose: 325 mg Documented By: guest room attendant: 05/23/24 20:39 Dose: 325 mg Documented By: Admin: 05/22/24 21:02 Dose: 325 mg Documented By: Admin: 05/21/24 22:00 Dose: 325 mg Documented By: Admin: 05/20/24 20:38 Dose: 325 mg Documented By: guest room attendant: 05/19/24 20:55 Dose: 325 mg Documented By: guest room attendant: 05/18/24 20:52 Dose: 325 mg Documented By: MED Heparin Sodium (Porcine) (Heparin Sod 5,000 Unit/0.5 Ml Vial) 5,000 units SQ Q12 CRISTIAN Stop: 06/19/24 20:59 Last Admin: 06/01/24 10:41 Dose: 5,000 units Documented By: Admin: 05/31/24 20:32 Dose: 5,000 units Documented By: Admin: 05/31/24 08:49 Dose: 5,000 units Documented By: Admin: 05/30/24 21:16 Dose: 5,000 units Documented By: Admin: 05/30/24 11:05 Dose: 5,000 units Documented By: Admin: 05/29/24 21:51 Dose: 5,000 units Documented By: Admin: 05/29/24 08:54 Dose: 5,000 units Documented By: Admin: 05/28/24 20:53 Dose: 5,000 units Documented By: Admin: 05/28/24 09:26 Dose: 5,000 units Documented By: Admin: 05/27/24 21:43 Dose: 5,000 units Documented By: Admin: 05/26/24 19:53 Dose: 5,000 units Documented By: Admin: 05/26/24 09:15 Dose: 5,000 units Documented By: Admin: 05/25/24 22:08 Dose: 5,000 units Documented By: Admin: 05/25/24 08:48 Dose: 5,000 units Documented By: Admin: 05/24/24 20:28 Dose: 5,000 units Documented By: guest room attendant: 05/24/24 09:18 Dose: 5,000 units Documented By: Admin: 05/23/24 08:58 Dose: 5,000 units Documented By: Admin: 05/22/24 20:58 Dose: 5,000 units Documented By: Admin: 05/22/24 09:34 Dose: 5,000 units Documented By: Admin: 05/21/24 21:58 Dose: 5,000 units Documented By: Admin: 05/21/24 13:11 Dose: Not Given Documented By: Admin: 05/20/24 20:35 Dose: 5,000 units Documented By: MED Hydralazine HCl (Hydralazine 10 Mg Tab) 10 mg PO BID CRISTIAN Stop: 06/17/24 20:59 Last Admin: 05/31/24 08:47 Dose: 10 mg Documented By: Admin: 05/30/24 21:18 Dose: 10 mg Documented By: Admin: 05/30/24 11:05 Dose: 10 mg Documented By: Admin: 05/29/24 21:53 Dose: 10 mg Documented By: Admin: 05/29/24 08:46 Dose: 10 mg Documented By: Admin: 05/28/24 20:54 Dose: 10 mg Documented By: Admin: 05/28/24 09:19 Dose: 10 mg Documented By: Admin: 05/27/24 20:31 Dose: 10 mg Documented By: Admin: 05/27/24 08:21 Dose: 10 mg Documented By: Admin: 05/26/24 19:56 Dose: 10 mg Documented By: Admin: 05/26/24 09:14 Dose: 10 mg Documented By: Admin: 05/25/24 22:10 Dose: 10 mg Documented By: Admin: 05/25/24 08:44 Dose: 10 mg Documented By: Admin: 05/24/24 20:24 Dose: 10 mg Documented By: guest room attendant: 05/24/24 08:12 Dose: 10 mg Documented By: Admin: 05/23/24 20:40 Dose: 10 mg Documented By: Admin: 05/23/24 08:57 Dose: 10 mg Documented By: Admin: 05/22/24 21:02 Dose: 10 mg Documented By: Admin: 05/22/24 09:01 Dose: 10 mg Documented By: Admin: 05/21/24 22:00 Dose: Not Given Documented By: Admin: 05/21/24 13:12 Dose: 10 mg Documented By: Admin: 05/20/24 20:36 Dose: 10 mg Documented By: guest room attendant: 05/20/24 08:26 Dose: 10 mg Documented By: Admin: 05/19/24 20:54 Dose: 10 mg Documented By: guest room attendant: 05/19/24 08:17 Dose: 10 mg Documented By: Admin: 05/18/24 20:52 Dose: 10 mg Documented By: MED Insulin Aspart (Insulin Aspart Per Unit Charge) 0 units SC ACHS CRISTIAN Stop: 06/17/24 16:29 Last Admin: 06/01/24 10:41 Dose: 4 units Documented By: CHRISTIAN Co-signed By: GABRIEL Admin: 05/31/24 20:33 Dose: Not Given Documented By: Admin: 05/31/24 17:56 Dose: 1 units Documented By: RANDA Co-signed By: VIPUL Admin: 05/31/24 12:56 Dose: 6 units Documented By: RANDA Co-signed By: AALIYAH Admin: 05/31/24 09:25 Dose: 5 units Documented By: RANDA Co-signed By: AALIYAH Admin: 05/30/24 20:27 Dose: Not Given Documented By: Admin: 05/30/24 17:24 Dose: Not Given Documented By: Admin: 05/30/24 13:14 Dose: 3 units Documented By: MEENAKSHI Co-signed By: ENDY Admin: 05/30/24 10:01 Dose: Not Given Documented By: Admin: 05/29/24 20:40 Dose: Not Given Documented By: Admin: 05/29/24 18:07 Dose: Not Given Documented By: Admin: 05/29/24 13:53 Dose: 2 units Documented By: MEENAKSHI Co-signed By: VIPUL Admin: 05/29/24 08:55 Dose: Not Given Documented By: Admin: 05/28/24 20:42 Dose: Not Given Documented By: Admin: 05/28/24 18:09 Dose: 4 units Documented By: RRR Co-signed By: SAL Admin: 05/28/24 13:47 Dose: 2 units Documented By: RRR Co-signed By: FRANKIE Admin: 05/28/24 09:37 Dose: 4 units Documented By: RRLeslie Co-signed By: JAQUELIN Admin: 05/27/24 20:05 Dose: Not Given Documented By: Admin: 05/27/24 18:09 Dose: 4 units Documented By: AMS Co-signed By: JAQUELIN Admin: 05/27/24 13:00 Dose: 4 units Documented By: AMS Co-signed By: TAVO Admin: 05/27/24 09:20 Dose: 5 units Documented By: AMS Co-signed By: TAVO Admin: 05/26/24 19:55 Dose: Not Given Documented By: Admin: 05/26/24 17:49 Dose: 2 units Documented By: AMS Co-signed By: ENDY Admin: 05/26/24 12:56 Dose: 6 units Documented By: AMS Co-signed By: MEENAKSHI Admin: 05/26/24 09:30 Dose: 6 units Documented By: LYLY Co-signed By: ENDY Admin: 05/25/24 22:08 Dose: 2 units Documented By: LIDIA Co-signed By: JOSEPHINE Admin: 05/25/24 17:58 Dose: 5 units Documented By: RENATO Co-signed By: KKS Admin: 05/25/24 13:32 Dose: 5 units Documented By: RENATO Co-signed By: KKS Admin: 05/25/24 09:01 Dose: Not Given Documented By: Admin: 05/24/24 20:31 Dose: Not Given Documented By: guest room attendant: 05/24/24 17:45 Dose: Not Given Documented By: Admin: 05/24/24 13:02 Dose: 1 units Documented By: SLH Co-signed By: FERNANDO Admin: 05/24/24 09:25 Dose: 1 units Documented By: MATTHEWH Co-signed By: LND Admin: 05/23/24 20:38 Dose: Not Given Documented By: Admin: 05/23/24 18:16 Dose: 3 units Documented By: RRR Co-signed By: KBB Admin: 05/23/24 12:52 Dose: Not Given Documented By: Admin: 05/23/24 09:31 Dose: 5 units Documented By: RRR Co-signed By: KBB Admin: 05/22/24 20:43 Dose: Not Given Documented By: Admin: 05/22/24 17:59 Dose: 4 units Documented By: RRR Co-signed By: KMC Admin: 05/22/24 14:04 Dose: 8 units Documented By: RRR Co-signed By: KKS Admin: 05/22/24 09:33 Dose: 6 units Documented By: RRR Co-signed By: CB Admin: 05/21/24 22:00 Dose: 1 units Documented By: JOSEPHINE Co-signed By: MCS Admin: 05/21/24 18:21 Dose: 5 units Documented By: KKS Co-signed By: KJS Admin: 05/21/24 13:16 Dose: 9 units Documented By: KKS Co-signed By: MELLO Admin: 05/21/24 09:27 Dose: Not Given Documented By: Admin: 05/20/24 20:49 Dose: 1 units Documented By: MED Co-signed By: AES Admin: 05/20/24 17:44 Dose: Not Given Documented By: Admin: 05/20/24 12:54 Dose: 5 units Documented By: KMC Co-signed By: VIPUL Admin: 05/20/24 08:27 Dose: Not Given Documented By: Admin: 05/19/24 20:56 Dose: Not Given Documented By: guest room attendant: 05/19/24 18:19 Dose: Not Given Documented By: Admin: 05/19/24 13:45 Dose: 3 units Documented By: RANDA Co-signed By: MTM Admin: 05/19/24 10:07 Dose: Not Given Documented By: Admin: 05/18/24 20:45 Dose: Not Given Documented By: guest room attendant: 05/18/24 18:16 Dose: 2 units Documented By: HESHAM Co-signed By: RANDA Labetalol HCl (Labetalol Hcl Iv 5 Mg/Ml 20ml) 10 mg IV Q4H PRN PRN Reason: HTN\ Stop: 06/18/24 11:25 Last Admin: 05/19/24 19:39 Dose: 10 mg Documented By: guest room attendant: 05/19/24 19:21 Dose: 10 mg Documented By: MED Lactobacillus Acidophilus (Advanced Probiotic 625 Mg Capsule) 1,250 mg PO DAILY CRISTIAN Stop: 06/22/24 08:59 Last Admin: 06/01/24 10:19 Dose: 1,250 mg Documented By: Admin: 05/31/24 08:46 Dose: 1,250 mg Documented By: Admin: 05/30/24 11:02 Dose: 1,250 mg Documented By: Admin: 05/29/24 08:43 Dose: 1,250 mg Documented By: Admin: 05/28/24 09:19 Dose: 1,250 mg Documented By: Admin: 05/27/24 08:21 Dose: 1,250 mg Documented By: Admin: 05/26/24 09:13 Dose: 1,250 mg Documented By: Admin: 05/25/24 08:44 Dose: 1,250 mg Documented By: Admin: 05/24/24 08:12 Dose: 1,250 mg Documented By: Admin: 05/23/24 08:57 Dose: 1,250 mg Documented By: RRR Latanoprost (Latanoprost 0.005% Op Soln 2.5 Ml Btl) 1 drops OPB QPM CRISTIAN Stop: 06/17/24 20:59 Last Admin: 05/31/24 20:29 Dose: 1 drops Documented By: Admin: 05/30/24 21:18 Dose: 1 drops Documented By: Admin: 05/29/24 21:52 Dose: 1 drops Documented By: Admin: 05/28/24 20:44 Dose: 1 drops Documented By: Admin: 05/27/24 20:23 Dose: 1 drops Documented By: Admin: 05/26/24 19:56 Dose: 1 drops Documented By: Admin: 05/25/24 22:11 Dose: 1 drops Documented By: Admin: 05/24/24 20:23 Dose: 1 drops Documented By: guest room attendant: 05/23/24 20:35 Dose: 1 drops Documented By: Admin: 05/22/24 21:03 Dose: 1 drops Documented By: Admin: 05/21/24 22:01 Dose: 1 drops Documented By: Admin: 05/20/24 20:36 Dose: 1 drops Documented By: guest room attendant: 05/19/24 20:55 Dose: 1 drops Documented By: guest room attendant: 05/18/24 20:55 Dose: 1 drops Documented By: MED Losartan Potassium (Losartan Potassium 50 Mg Tab) 50 mg PO DAILY [facility] Stop: 06/20/24 08:59 Last Admin: 05/21/24 13:10 Dose: 50 mg Documented By: SLOANE Melatonin (Melatonin 3 Mg Tab) 3 mg PO HS [facility] Stop: 06/17/24 20:59 Last Admin: 05/31/24 20:31 Dose: 3 mg Documented By: Admin: 05/30/24 21:19 Dose: 3 mg Documented By: Admin: 05/29/24 21:51 Dose: 3 mg Documented By: Admin: 05/28/24 20:45 Dose: 3 mg Documented By: Admin: 05/27/24 20:31 Dose: 3 mg Documented By: Admin: 05/26/24 19:53 Dose: 3 mg Documented By: Admin: 05/25/24 22:08 Dose: 3 mg Documented By: Admin: 05/24/24 20:25 Dose: 3 mg Documented By: guest room attendant: 05/23/24 20:41 Dose: 3 mg Documented By: Admin: 05/22/24 20:59 Dose: 3 mg Documented By: Admin: 05/21/24 21:58 Dose: 3 mg Documented By: Admin: 05/20/24 20:37 Dose: 3 mg Documented By: guest room attendant: 05/19/24 20:54 Dose: 3 mg Documented By: guest room attendant: 05/18/24 20:54 Dose: 3 mg Documented By: MED Olanzapine (Olanzapine 10 Mg/2.1 Ml Sdv) 2.5 mg IM Q4H PRN PRN Reason: Agitation Stop: 06/25/24 21:01 Last Admin: 05/31/24 13:17 Dose: 2.5 mg Documented By: RANDA Pantoprazole Sodium (Pantoprazole 40 Mg Tab) 40 mg PO DAILY C[facility] Stop: 06/18/24 08:59 Last Admin: 06/01/24 10:19 Dose: 40 mg Documented By: Admin: 05/31/24 08:46 Dose: 40 mg Documented By: Admin: 05/30/24 11:05 Dose: 40 mg Documented By: Admin: 05/29/24 08:43 Dose: 40 mg Documented By: Admin: 05/28/24 09:19 Dose: 40 mg Documented By: Admin: 05/27/24 08:21 Dose: 40 mg Documented By: Admin: 05/26/24 09:14 Dose: 40 mg Documented By: Admin: 05/25/24 08:45 Dose: 40 mg Documented By: Admin: 05/24/24 08:13 Dose: 40 mg Documented By: Admin: 05/23/24 08:57 Dose: 40 mg Documented By: Admin: 05/22/24 09:01 Dose: 40 mg Documented By: Admin: 05/21/24 13:10 Dose: 40 mg Documented By: Admin: 05/20/24 08:26 Dose: 40 mg Documented By: Admin: 05/19/24 08:17 Dose: 40 mg Documented By: HESHAM Quetiapine Fumarate (Quetiapine Fumarate 25 Mg Tablet) 25 mg PO HS [facility] Stop: 06/18/24 20:59 Last Admin: 05/31/24 20:32 Dose: 25 mg Documented By: Admin: 05/30/24 21:19 Dose: 25 mg Documented By: Admin: 05/29/24 21:53 Dose: 25 mg Documented By: Admin: 05/28/24 20:45 Dose: 25 mg Documented By: Admin: 05/27/24 20:31 Dose: 25 mg Documented By: Admin: 05/26/24 19:54 Dose: 25 mg Documented By: Admin: 05/25/24 22:09 Dose: 25 mg Documented By: Admin: 05/24/24 20:26 Dose: 25 mg Documented By: guest room attendant: 05/23/24 20:40 Dose: 25 mg Documented By: Admin: 05/22/24 21:03 Dose: 25 mg Documented By: Admin: 05/21/24 22:00 Dose: 25 mg Documented By: Admin: 05/20/24 20:37 Dose: 25 mg Documented By: guest room attendant: 05/19/24 20:54 Dose: 25 mg Documented By: MED Quetiapine Fumarate (Quetiapine Fumarate 25 Mg Tablet) 12.5 mg PO DAILY [facility] Stop: 06/28/24 08:59 Last Admin: 06/01/24 10:19 Dose: 12.5 mg Documented By: Admin: 05/31/24 08:46 Dose: 12.5 mg Documented By: Admin: 05/30/24 11:03 Dose: 12.5 mg Documented By: Admin: 05/29/24 08:44 Dose: 12.5 mg Documented By: MEENAKSHI Sennosides (Senna 8.6 Mg Tab) 8.6 mg PO BID [facility] Stop: 06/17/24 20:59 Last Admin: 05/31/24 20:30 Dose: 8.6 mg Documented By: Admin: 05/31/24 08:48 Dose: 8.6 mg Documented By: Admin: 05/30/24 21:18 Dose: 8.6 mg Documented By: Admin: 05/30/24 11:05 Dose: 8.6 mg Documented By: Admin: 05/29/24 21:51 Dose: 8.6 mg Documented By: Admin: 05/29/24 08:54 Dose: 8.6 mg Documented By: Admin: 05/28/24 20:51 Dose: 8.6 mg Documented By: Admin: 05/28/24 09:22 Dose: 8.6 mg Documented By: Admin: 05/27/24 20:23 Dose: 8.6 mg Documented By: Admin: 05/27/24 08:22 Dose: 8.6 mg Documented By: Admin: 05/26/24 19:53 Dose: 8.6 mg Documented By: Admin: 05/26/24 10:18 Dose: 8.6 mg Documented By: Admin: 05/25/24 22:08 Dose: 8.6 mg Documented By: Admin: 05/25/24 09:14 Dose: 8.6 mg Documented By: Admin: 05/24/24 20:28 Dose: 8.6 mg Documented By: guest room attendant: 05/24/24 09:18 Dose: 8.6 mg Documented By: Admin: 05/23/24 20:41 Dose: 8.6 mg Documented By: Admin: 05/23/24 08:58 Dose: 8.6 mg Documented By: Admin: 05/22/24 20:59 Dose: 8.6 mg Documented By: Admin: 05/22/24 09:06 Dose: 8.6 mg Documented By: Admin: 05/21/24 22:02 Dose: 8.6 mg Documented By: Admin: 05/21/24 18:21 Dose: 8.6 mg Documented By: Admin: 05/20/24 20:35 Dose: 8.6 mg Documented By: guest room attendant: 05/20/24 08:27 Dose: Not Given Documented By: Admin: 05/19/24 20:57 Dose: 8.6 mg Documented By: guest room attendant: 05/19/24 10:08 Dose: Not Given Documented By: Admin: 05/18/24 20:54 Dose: 8.6 mg Documented By: MED Vitamin D (Cholecalciferol 10 Mcg (400 Units) Tab) 20 mcg PO DAILY [facility] Stop: 06/18/24 08:59 Last Admin: 06/01/24 10:18 Dose: 20 mcg Documented By: Admin: 05/31/24 08:45 Dose: 20 mcg Documented By: Admin: 05/30/24 11:03 Dose: 20 mcg Documented By: Admin: 05/29/24 08:44 Dose: 20 mcg Documented By: Admin: 05/28/24 09:18 Dose: 20 mcg Documented By: Admin: 05/27/24 08:21 Dose: 20 mcg Documented By: Admin: 05/26/24 09:14 Dose: 20 mcg Documented By: Admin: 05/25/24 08:45 Dose: 20 mcg Documented By: Admin: 05/24/24 08:13 Dose: 20 mcg Documented By: Admin: 05/23/24 08:56 Dose: 20 mcg Documented By: Admin: 05/22/24 09:00 Dose: 20 mcg Documented By: Admin: 05/21/24 13:09 Dose: 20 mcg Documented By: KKYina Admin: 05/20/24 08:26 Dose: 20 mcg Documented By: Admin: 05/19/24 08:17 Dose: 20 mcg Documented By: MTM Coding Level of Care Code 84666 IN/OBS CONSULT LVL 4,60M Diagnoses AMS (altered mental status) R41.82 Altered mental status type: unspecified Aphasia due to recent cerebrovascular accident (CVA) I69.320 Delirium R41.0
--- NOTE | 2024-06-01 14:13 | Hospitalist Progress Note ---
Date of Service June 01, 2024 Assessment & Plan (1) Gross hematuria: (2) AMS (altered mental status): Plan This is a 84 y/o male with recent acute CVA, DM2, CKD3, MCI, HTN, GERD, dyslipidemia, and other history as outlined below who presented to the ED 05/18 from [facility] with increased lethargy. Of note, pt was given additional dose of Seroquel last night due to agitation. Review of records from [facility] revealed issues with hyperactivity delirium while admitted there, mostly seems to have issues at night. He is being managed for the following: Acute drug-induced confusion: Aphasia Recent cerebrovascular accident: has aphasia and R sided weakness from recent CVA, speech has evaluated at [facility]. observed swallowing medications without difficulty; continue to require supervision and assistance with meals. Soft, bite-size diet. HOB at 90 degrees with any oral intake including medications. Admitting CT head showed subacute infarcts similar in distribution areas of infarct seen on MRI of 05/10/24 at [facility] on EPIC. Suspect confusion due to medication, not progression of CVA. By 05/19 AM, patient back to his baseline mentation. Seroquel decreased to 25mg BID on 05/24 - lethargic this AM, VBG checked and WNL, more awake by noon. Delirium precautions; occasional aggressiveness with tending to pull out medical equipment including Dominguez catheter (now removed) soft restraints removed overnight; discontinued order Continue DAPT and home statin for recent CVA Remains otherwise medically stable, no longer requiring one-to-one sitter PT/OT to see now since more alert - recommending return to [facility] for rehab once medically stable --repeat Head CT on 05/30 w/o acute change, showing evolving changes of recent CVA but decreasing in size --Psych consulted - appreciate their input and will trial D/C Seroquel all together and trial Abilify 2.5mg in the a.m. --He seems to be improving, Last dose of IM zyprexa was 05/31 at 1300 Acute on chronic kidney failure: -> resolving Baseline creatinine around 1.5, admitting creatinine of 1.85. Trended up to 2.57 05/22. Holding losartan, chlorthalidone Cr at baseline 1.5 Does follow with Nephro as an outpatient with [facility] Hematuria: -> resolved Patient noted to have vernon hematuria and condom cath 05/18. 05/18 UA reviewed. 05/18 CTAP reviewed - Re demonstration of stable left renal cortical cyst, 8.5 cm. No bladder wall thickening, blood clot burden within the bladder noted. Urology consulted, status post cystoscopy 05/19. Follow-up with urology as an outpatient. Ciprofloxacin initiated 05/19, has been completed Hematuria has cleared as of 05/27 -> resumed aspirin 81mg, SQ heparin Dominguez removed 05/28; 0530 spontaneous voiding trial; urinary incontinence. Bladder scan as necessary PRN Plavix and heparin initially placed on hold,but have since been resumed HTN: BP has been on the lower side, all BP meds on hold, Chlorthalidone, losartan & hydralazine. Initially chlorthalidone and losartan held due to MICHAEL. BP up a bit today, 143/62, continue to monitor and resume as needed Other chronic medical conditions: Continue with/resume home meds as when able. T2DM: Chronic, stable. a1c 7.2 on 05/09/24, Sliding scale insulin. BSG stable CODE STATUS: DNR/DNI DVT prophylaxis: SQ heparin Dispo: PT/OT recommending return to [facility] when medically stable. Will D/C Telemetry as this may be continuing to result in delirium, awaiting PT/OT re evaluation, he is medically stable for rehab I spent a total of 47 minutes coordinating, documenting, and providing care for this patient excluding time spent in the performance of separately billed services. Care coordinated with Dr. Downey, please see addendum Marcia (POA) at [phone]. Attempted to contact and went straight to voicemail. Admission and Anticipated Discharge Date Admission Date: May 20, 2024 Supervising Physician Co-Signing Physician Notes Attending addendum: The patient was seen and examined in medical floor He has been stable but remains pleasantly confused His mental status waxes and wanes Has been eating reasonably with help On examination Lying in bed without any acute distress Remains hemodynamically stable Other systemic examination unremarkable except weak and lethargic and minimally communicative His labs and medications reviewed Psychiatric note reviewed Medications adjusted Reviewed with assessment and plan as outlined above by Nena Pena PA-C and take the full responsibility of care in the hospital Dr Ramonita Downey Subjective Pt seen in room 286-2. He is w/o acute complaint although ROS difficult due to aphasia. He denies pain, CP or sob with a head nod. He is trying to re arrange himself in the bed. Review of Systems Review of Systems: All systems reviewed & are unremarkable except as noted in HPI & below Unobtainable due to expressive aphasia Physical Exam Physical Exam: Gen: Tall, Thin, M, lying in bed, alert and oriented, severe expressive aphasia HEENT: Normocephalic, atraumatic, conjunctivae moist, sclerae anicteric, mucous membranes moist. Lung: Clear to Auscultation bilaterally, no wheezes/rales/rhonchi Heart: Regular rate, regular rhythm, no murmurs, rubs, or gallops Abdomen: Soft, NT, ND +BS x 4 Extremities: No edema, RHP Skin: Warm, no rash, negative turgor. Results & Data Results & Data Vital Signs (Past 12 Hours) Vital Signs Temp Pulse Resp BP Pulse Ox O2 Del Method 06/01/24 10:51 36.4 C L 90 16 143/62 H 95 Room Air 06/01/24 09:00 Room Air 06/01/24 03:49 36.5 C 94 H 20 138/62 95 Room Air Medications Administered Current Inpatient Medications Acetaminophen (Acetaminophen 325 Mg Tab) 650 mg PO Q6H [facility] Stop: 06/20/24 15:59 Last Admin: 06/01/24 10:19 Dose: 650 mg Allopurinol (Allopurinol 100 Mg Tab) 100 mg PO DAILY [facility] Stop: 06/18/24 08:59 Last Admin: 06/01/24 10:18 Dose: 100 mg Aspirin (Aspirin 81 Mg Ectab) 81 mg PO DAILY [facility] Stop: 06/18/24 08:59 Last Admin: 06/01/24 10:18 Dose: 81 mg Atorvastatin Calcium (Atorvastatin 40 Mg Tab) 40 mg PO PM [facility] Stop: 06/17/24 20:59 Last Admin: 05/31/24 20:31 Dose: 40 mg Calamine/Pramoxine (Calamine/Pramoxine Lotion 180 Appln/180 Ml Btl) 1 appln EXT BID PRN PRN Reason: for rash at back Stop: 06/19/24 11:18 Last Admin: 05/23/24 20:35 Dose: 1 appln Chlorhexidine Gluconate (Chlorhexidine Gluconate 0.12% 480 Ml) 15 ml MT BID [facility] Stop: 06/17/24 20:59 Last Admin: 06/01/24 10:32 Dose: 15 ml Clopidogrel Bisulfate (Clopidogrel Bisulfate 75 Mg Tab) 75 mg PO DAILY [facility] Stop: 06/18/24 08:59 Last Admin: 06/01/24 10:18 Dose: 75 mg Cyanocobalamin (Cyanocobalamin (B-12) 500 Mcg Tablet) 1,000 mcg PO QPM [facility] Stop: 06/17/24 20:59 Last Admin: 05/31/24 20:32 Dose: 1,000 mcg Dextrose (Dextrose 50% 50 Ml Syringe) 25 - 50 ml IV UD PRN; Protocol PRN Reason: Hypoglycemia Protocol Stop: 06/17/24 15:57 Ferrous Sulfate (Ferrous Sulfate 325 Mg Tab) 325 mg PO QPM [facility] Stop: 06/17/24 20:59 Last Admin: 05/31/24 20:32 Dose: 325 mg Glucagon (Glucagon For Inj 1 Mg Vial) 1 mg SQ UD PRN; Protocol PRN Reason: Hypoglycemia Protocol Stop: 06/17/24 15:57 Glucose (Glucose 40% Gel 15 Gm Tube) 15 - 30 gm PO UD PRN; Protocol PRN Reason: Hypoglycemia Protocol Stop: 06/17/24 15:57 Glucose (Glucose 10 Tab/Tube) 4 - 8 tab PO UD PRN; Protocol PRN Reason: Hypoglycemia Protocol Stop: 06/17/24 15:57 Heparin Sodium (Porcine) (Heparin Sod 5,000 Unit/0.5 Ml Vial) 5,000 units SQ Q12 [facility] Stop: 06/19/24 20:59 Last Admin: 06/01/24 10:41 Dose: 5,000 units Hydralazine HCl (Hydralazine 10 Mg Tab) 10 mg PO BID [facility] Stop: 06/17/24 20:59 Last Admin: 05/31/24 08:47 Dose: 10 mg Insulin Aspart (Insulin Aspart Per Unit Charge) 0 units SC ACHS [facility] Stop: 06/17/24 16:29 Last Admin: 06/01/24 13:43 Dose: 2 units Labetalol HCl (Labetalol Hcl Iv 5 Mg/Ml 20ml) 10 mg IV Q4H PRN PRN Reason: HTN\ Stop: 06/18/24 11:25 Last Admin: 05/19/24 19:39 Dose: 10 mg Lactobacillus Acidophilus (Advanced Probiotic 625 Mg Capsule) 1,250 mg PO DAILY [facility] Stop: 06/22/24 08:59 Last Admin: 06/01/24 10:19 Dose: 1,250 mg Latanoprost (Latanoprost 0.005% Op Soln 2.5 Ml Btl) 1 drops OPB QPM [facility] Stop: 06/17/24 20:59 Last Admin: 05/31/24 20:29 Dose: 1 drops Losartan Potassium (Losartan Potassium 50 Mg Tab) 50 mg PO DAILY [facility] Stop: 06/20/24 08:59 Last Admin: 05/21/24 13:10 Dose: 50 mg Melatonin (Melatonin 3 Mg Tab) 3 mg PO HS [facility] Stop: 06/17/24 20:59 Last Admin: 05/31/24 20:31 Dose: 3 mg Miscellaneous (Carbohydrates For Hypoglycemia ) 15 - 30 gm PO UD PRN PRN Reason: Hypoglycemia Protocol Stop: 06/17/24 15:57 Olanzapine (Olanzapine 10 Mg/2.1 Ml Sdv) 2.5 mg IM Q4H PRN PRN Reason: Agitation Stop: 06/25/24 21:01 Last Admin: 05/31/24 13:17 Dose: 2.5 mg Pantoprazole Sodium (Pantoprazole 40 Mg Tab) 40 mg PO DAILY [facility] Stop: 06/18/24 08:59 Last Admin: 06/01/24 10:19 Dose: 40 mg Quetiapine Fumarate (Quetiapine Fumarate 25 Mg Tablet) 25 mg PO HS [facility] Stop: 06/18/24 20:59 Last Admin: 05/31/24 20:32 Dose: 25 mg Quetiapine Fumarate (Quetiapine Fumarate 25 Mg Tablet) 12.5 mg PO DAILY [facility] Stop: 06/28/24 08:59 Last Admin: 06/01/24 10:19 Dose: 12.5 mg Sennosides (Senna 8.6 Mg Tab) 8.6 mg PO BID [facility] Stop: 06/17/24 20:59 Last Admin: 06/01/24 11:57 Dose: Not Given Vitamin D (Cholecalciferol 10 Mcg (400 Units) Tab) 20 mcg PO DAILY [facility] Stop: 06/18/24 08:59 Last Admin: 06/01/24 10:18 Dose: 20 mcg (2) AMS (altered mental status) Altered mental status type: unspecified Qualified Code(s): R41.82 - Altered mental status, unspecified
[2024-06-02] MEDS: ARIPiprazole 5 MG TAB PO SCH (09:13)
[2024-06-02 09:42] LABS: Basophils % (auto) 0.9 %; Eosinophils # (auto) 0.07 K/uL (0.00-0.50); Eosinophils % (auto) 0.6 %; Immature Granulocytes # (auto) 0.03 K/uL (0.01-0.20); Immature Granulocytes % (auto) 0.3 %; Lymphocytes # (auto) 1.33 K/uL (1.20-3.40); Lymphocytes % (auto) 11.9 %; Mean Corpuscular Hgb Conc 33.3 g/dL (32.0-36.0); Mean Corpuscular Volume 87.1 fL (80.0-100.0); Mean Platelet Volume 10.2 fL (9.4-12.4); Monocytes # (auto) 0.56 K/uL (0.11-0.59); Neutrophils # (auto) 9.05 K/uL (1.40-6.50); Neutrophils % (auto) 81.3 %; Platelet Count 381 K/uL (130-400); RDW Coefficient of Variation 14.2 % (11.5-14.5); RDW Standard Deviation 45.1 fL (36.4-46.3); Red Blood Count 4.48 M/uL (4.70-6.10); White Blood Count 11.14 K/ul (4.8-10.8)
[2024-06-02 09:56] LABS: Calcium 9.5 mg/dl (8.6-10.3); Potassium 4.2 mmol/L (3.5-5.1)
[2024-06-02 10:02] LABS: Creatinine Clr Calc Pharmacy 35.6 ml/min
--- NOTE | 2024-06-02 10:11 | Hospitalist Progress Note ---
<Statement entered by Avery Hinojosa, - 06/02/24 16:49> I have seen and examined the patient and have discussed the case with the provider above. I have reviewed the advanced practitioner's documentation, and I agree with, and take responsibility for that plan of care. Patient resting comfortably, does not appear to be agitated or anxious at this time. Continue with current medical plan, Abilify just started Continue to pursue possible placement options. Date of Service June 02, 2024 Assessment & Plan (1) Acute drug-induced confusion: Plan Mg Little is an 84-year-old male with past medical history significant for DM type II, diabetic polyneuropathy, alcohol use, arthritis, gout, HTN, GERD, Anderson's esophagus, history of diverticulitis, CKD stage III and recent acute ischemic left MCA stroke who presented to the ED via EMS from [facility] on 05/18/2024 secondary to increased lethargy. His is being managed for the following: Acute Drug-Induced Confusion Severe Expressive Aphasia & Cognitive Changes 2/2 Recent CVA: Patient was recently admitted to [facility] [place] on 05/08/2024 with acute onset of right- sided weakness and was ultimately found to have an acute CVA due to left MCA M3 branch occlusion. Patient received TNK at that time as directed the on-call TeleStroke neurologist from [facility] [place] [place]. Patient however developed expressive aphasia and word finding difficulty after administration of the TNK but he did show significant improvement in his right-sided weakness. Patient was ultimately transferred to the ICU here at [facility] [place] for further inpatient management however early on 05/09/2024, the patient had worsening expressive aphasia, new right- sided facial drooping and right hemiparesis. Repeat head CT did not show any new acute intracranial findings but repeat CTA revealed possible residual thrombus in the M2 segment therefore the patient was transferred to [facility] via [facility] for possible thrombectomy on 05/09/2024. Per discharge summary from [facility]: CTP showed slowed perfusion in the left hemisphere. DSA was performed and no LVO was found, but LICA stent was placed. Patient was placed on heparin drip and then transitioned to DAPT. MRI brain showed multiple small acute infarcts in the left cerebral hemisphere, the largest in the parietal lobe. These are in the middle anterior cerebral artery distribution. Small petechial hemorrhage in the left postcentral gyrus. TTE showing small PFO, unlikely contributory. LDL 124, A1C 7.1; His clinical course was complicated by hyperactive delirium which required Precedex which was eventually transitioned to scheduled Seroquel (the dose was rapidly titrated to the discharge dose of 25mg in the AM, 50 mg HS - seemed to control his symptoms per neurology notes from [facility] [place] LTM EEG showed slowing but no epileptiform activity. NG tube was placed due to poor oral tolerance but with resolution of his delirium he began eating PO. He was evaluated by speech therapy at [facility] who recommended soft & bite-sized solids with thin liquids, HOB at 90 degrees for all intake including meds. Report from [facility] was that patient was more agitated the evening prior to presenting to the ED so he was given 75mg of Seroquel instead of his usual dose of 50mg HS as per above. Head CT from 05/18/2024 showed subacute infarcts similar in distribution to areas of infarct seen on brain MRI done 05/10/24 at [facility] per [facility] records. Suspect confusion due to medication, not progression of CVA. By 05/19/2024, patient was back at his baseline mentation status. He was somewhat lethargic in the AM on 05/24/2024 but that resolved by the afternoon. VBG was checked at that time and WNL. Patient with occasional aggressiveness with tending to pull out medical equipment including Dominguez catheter (now removed) previously. Previously required soft restraints. Repeat head CT done 05/30/2024 without acute change, shows evolving changes of recent CVA but decreasing in size. Seroquel dose was initially decreased to 25mg BID. Patient was seen and evaluated by psychiatry on 06/01/2024. Psychiatry recommended considering a trial of a less sedating antipsychotic such as Abilify 2.5mg daily vs Seroquel 25mg BID, which may also help with delirium/restlessness. Seroquel 25mg BID stopped; he is now currently on 2.5mg Abilify daily. His mentation status seems to be improving, continue to monitor. Remains otherwise medically stable, no longer requiring one-to-one sitter. Last dose of IM Zyprexa was on 05/31/2024 at 13:00. Patient working with PT/OT now that he is more alert --> Recommending return to [facility] for rehab once medically stable. Continue DAPT and statin for recent CVA. MICHAEL on CKD Stage III - RESOLVED: Baseline Cr ~1.4-1.7 per chart review. Cr was previously elevated at 1.85 on admission, trended up to 2.57 on 05/22/2024. Cr now around baseline today 1.6; continue to hold losartan and chlorthalidone. He follows with [facility] as an outpatient [Dr. Mackey]. Continue to monitor renal function and avoid nephrotoxic medications when able. Gross Hematuria - RESOLVED: Patient noted to have vernon hematuria in his condom catheter on 05/18/2024. UA from 05/18 with no evidence of urine bacteria. CTAP on 05/18/2024 --> Noted stable left renal cortical cyst measuring 8.5mm, blood clot burden within the bladder. Urology was consulted. S/p cystoscopy on 05/19/2025. Had Dominguez in place. Was on ciprofloxacin while on CBI per urology's recommendation, this has been completed. Hematuria has cleared as of 05/27/2024 --> ASA 81mg daily and SQ heparin resumed as they were previously placed on hold ISO active bleeding. Dominguez catheter removed on 05/28/2024; spontaneous voiding trial. Still with urinary incontinence. Bladder scan PRN. Plavix als resumed as hematuria is resolved. HTN: Patient has been relatively hypotensive. His antihypertensives were adjusted at [facility] and at the time of discharge he was on the following: olmesartan 20mg daily, chlorthalidone 25mg daily and hydralazine 10 mg BID. All BP meds currently still on hold; initially chlorthalidone and losartan held due to MICHAEL as per above. Continue to monitor BP closely and resume home meds if/when able. Other Chronic Medical Conditions: * DM Type II - Chronic, stable. Hgb A1c was 7.2 on 05/09/2024. SSI on board, BSG remains stable. * Gout/GERD/Iron Deficiency - Can resume medications for these specific conditions when able. Can also resume home latanoprost eye drops. DVT Prophylaxis: SQ Heparin Code Status: DNR/DNI - No Resuscitation PCP: Art Cavazos DO Disposition: PT/OT recommending return to [facility] when medically stable. Telemetry discontinued as this may have been contributing to his delirium. Medically stable for rehab placement. Patient seen in collaboration with Dr. Hinojosa. Please see addendum. I spent a total of 55 minutes coordinating, documenting, and providing care for this patient excluding time spent in the performance of separately billed services. This included personally reviewing all current laboratories and imaging studies, medical reconciliation, outpatient chart review and discussion with specialists. This chart was completed in part utilizing Speech Voice Recognition Software. Grammatical errors, random word insertions, pronoun errors, and incomplete sentences are an occasional consequence of this system due to software limitations, ambient noise, and hardware issues. Any formal questions or concerns about the content, text, or information contained within the body of this dictation should be directly addressed to the provider for clarification. Admission and Anticipated Discharge Date Admission Date: May 20, 2024 Subjective Patient seen and examined at bedside this morning. METAL COATER at bedside reports that he has been more alert this morning and has been able to answer direct yes/no questioning. Patient said "no" when asked if he had any chest pain or SOB. He does nod his head yes/no as well. He was incontinent of urine this morning. No additional hematuria. He has not been agitated this morning per the METAL COATER at bedside. He has been feeding himself per nursing staff. Review of Systems Review of Systems: Unable to properly obtain secondary to the patient's expressive aphasia. Physical Exam Physical Exam: General: Tall/thin M, NAD, lying in bed with METAL COATER at bedside, severe expressive aphasia, A&O to direct yes/no questioning. HEENT: Normocephalic, atraumatic. Conjunctivae normal. External ear and nose normal, oropharynx normal. Respiratory: Normal respiratory effort, lungs clear to auscultation, no wheeze/rales/rhonchi. No accessory muscle use. Cardiovascular: Regular rate, rhythm, normal peripheral pulses, no BLE edema. Vessels: No JVD. Abdomen/GI: Normal bowel sounds, soft, nondistended, nontender to palpation in all quadrants. Results & Data Results & Data Vital Signs (Past 12 Hours) Vital Signs Temp Pulse Resp BP Pulse Ox O2 Del Method 06/02/24 07:39 36.6 C 90 16 115/70 94 Room Air Laboratory Results Short CBC 06/02/24 Range/Units 08:59 WBC 11.14 H (4.8-10.8) K/ul Hgb 13.0 L (14.0-18.0) g/dl Hct 39.0 L (42.0-52.0) % Plt Count 381 (130-400) K/uL [facility] 06/02/24 08:59 Sodium 140 Potassium 4.2 Chloride 112 H Carbon Dioxide 19 L BUN 48 H Creatinine 1.60 H Glucose 191 H Calcium 9.5
[2024-06-03] MEDS: OLANZapine 10 MG/2.1 ML SDV IM STA (02:38)
--- NOTE | 2024-06-03 07:18 | Hospitalist Progress Note ---
<Statement entered by Avery Hinojosa DO - 06/03/24 13:16> I have seen and examined the patient and have discussed the case with the provider above. I have reviewed the advanced practitioner's documentation, and I agree with, and take responsibility for that plan of care. Events of last night reviewed, required IM Zyprexa. This morning, patient interactive and calm. No real recollection of the events last night. Increase Abilify twice daily as outlined below Continue to monitor behaviors Date of Service June 03, 2024 Assessment & Plan (1) Acute drug-induced confusion: (2) Aphasia due to recent cerebrovascular accident (CVA): (3) Acute kidney injury superimposed on CKD: (4) Gross hematuria: Plan Mg Little is an 84-year-old male with past medical history significant for DM type II, diabetic polyneuropathy, alcohol use, arthritis, gout, HTN, GERD, Anderson's esophagus, history of diverticulitis, CKD stage III and recent acute ischemic left MCA stroke who presented to the ED via EMS from [facility] on 05/18/2024 secondary to increased lethargy. He is currently being managed for the following: Acute Drug-Induced Confusion, Delirium Severe Expressive Aphasia & Cognitive Changes 2/2 Recent CVA: Patient was recently admitted to [facility] on 05/08/2024 with acute onset of right- sided weakness and was ultimately found to have an acute CVA due to left MCA M3 branch occlusion. Patient received TNK at that time as directed the on-call TeleStroke neurologist from [facility] [place]. Patient however developed expressive aphasia and word finding difficulty after administration of the TNK but he did show s ignificant improvement in his right-sided weakness. Patient was ultimately transferred to the ICU here at [facility] for further inpatient management however early on 05/09/2024, the patient had worsening expressive aphasia, new right- sided facial drooping and right hemiparesis. Repeat head CT did not show any new acute intracranial findings but repeat CTA revealed possible residual thrombus in the M2 segment therefore the patient was transferred to [facility] via [facility] for possible thrombectomy on 05/09/2024. Per discharge summary from [facility]: CTP showed slowed perfusion in the left hemisphere. DSA was performed and no LVO was found, but LICA stent was placed. Patient was placed on heparin drip and then transitioned to DAPT. MRI brain showed multiple small acute infarcts in the left cerebral hemisphere, the largest in the parietal lobe. These are in the middle anterior cerebral artery distribution. Small petechial hemorrhage in the left postcentral gyrus. TTE showing small PFO, unlikely contributory. LDL 124, A1C 7.1; His clinical course was complicated by hyperactive delirium which required Precedex which was eventually transitioned to scheduled Seroquel (the dose was rapidly titrated to the discharge dose of 25mg in the AM, 50 mg HS - seemed to control his symptoms per neurology notes [place] [facility] [place] LTM EEG showed slowing but no epileptiform activity. NG tube was placed due to poor oral tolerance but with resolution of his delirium he began eating PO. He was evaluated by speech therapy at [facility] who recommended soft & bite-sized solids with thin liquids, HOB at 90 degrees for all intake including meds. Report from [facility] was that patient was more agitated the evening prior to presenting to the ED so he was given 75mg of Seroquel instead of his usual dose of 50mg HS as per above. Head CT from 05/18/2024 showed subacute infarcts similar in distribution to areas of infarct seen on brain MRI done 05/10/24 at [facility] per [facility] records. Suspect confusion due to medication, not progression of CVA. By 05/19/2024, patient was back at his baseline mentation status. He was somewhat lethargic in the AM on 05/24/2024 but that resolved by the afternoon. VBG was checked at that time and WNL. 06/02/2024 Patient with occasional aggressiveness with tending to pull out medical equipment including Dominguez catheter (now removed) previously. Previously required soft restraints. Repeat head CT done 05/30/2024 without acute change, shows evolving changes of recent CVA but decreasing in size. Seroquel dose was initially decreased to 25mg BID. Patient was seen and evaluated by psychiatry on 06/01/2024. Psychiatry recommended considering a trial of a less sedating antipsychotic such as Abilify 2.5mg daily vs Seroquel 25mg BID, which may also help with delirium/restlessness. Seroquel 25mg BID stopped; he was started on 2.5mg Abilify daily. His mentation status seems to be improving, continue to monitor. Remains otherwise medically stable. Last dose of IM Zyprexa was on 05/31/2024 at 13:00. , 06/03/2024 Patient with some increased agitation/delirium overnight; he had to receive an additional dose of 2.5mg IM Zyprexa. Patient cooperative with staff on examination this morning, mentation status stable. He is able to answer direct yes/no questions with head nodding, simple "yes/no" phrases. Has sitter at bedside. Discussed with Dr. Comer regarding the patient's increased delirium overnight --> Will increase dose of Abilify to 2.5mg BID; "unfortunately there are no known effective medications for treating delirium nor post-stroke behavioral complications." Per previous psych consult --> "If concern for delirium lessens and restlessness is thought to be a manifestation of distress from CVA and expressive aphasia could do a very low dose and cautious trial of Ativan po or IV to see if this lessens distress without subsequently worsening confusion." Will hold off on Ativan or any other benzodiazepines for now. Patient has been working with PT/OT now that he is more alert --> Recommending return to [facility] for rehab once medically stable. Continue DAPT and statin for recent CVA. MICHAEL on CKD Stage III - RESOLVED: Baseline Cr ~1.4-1.7 per chart review. Cr was previously elevated at 1.85 on admission, trended up to 2.57 on 05/22/2024. Cr now at baseline; continue to hold losartan and chlorthalidone (BP remains relatively hypotensive). He follows with [facility] as an outpatient [Dr. Mackey]. Continue to monitor renal function and avoid nephrotoxic medications when able. Gross Hematuria - RESOLVED: Patient noted to have vernon hematuria in his condom catheter on 05/18/2024. UA from 05/18 with no evidence of urine bacteria. CTAP on 05/18/2024 --> Noted stable left renal cortical cyst measuring 8.5mm, blood clot burden within the bladder. Urology was consulted. S/p cystoscopy on 05/19/2025. Had Dominguez in place. Was on ciprofloxacin while on CBI per urology's recommendation, this has been completed. Hematuria has cleared as of 05/27/2024 --> ASA 81mg daily and SQ heparin resumed as they were previously placed on hold ISO active bleeding. Dominguez catheter removed on 05/28/2024; spontaneous voiding trial. Still with urinary incontinence. Bladder scan PRN. Plavix also resumed as hematuria is resolved. HTN: Patient remains relatively hypotensive. His antihypertensives were adjusted at [facility] and at the time of discharge he was on the following: olmesartan 20mg daily, chlorthalidone 25mg daily and hydralazine 10 mg BID. All BP meds currently still on hold; initially chlorthalidone and losartan only held due to MICHAEL as per above. Continue to monitor BP closely and resume home meds if/when able. Other Chronic Medical Conditions: * DM Type II - Chronic, stable. Hgb A1c was 7.2 on 05/09/2024. SSI on board, BSG remains stable. * Gout/GERD/Iron Deficiency - Can resume medications for these specific conditions when able. Can also resume home latanoprost eye drops. DVT Prophylaxis: SQ Heparin Code Status: DNR/DNI - No Resuscitation PCP: Art Cavazos DO Disposition: PT/OT recommending return to [facility] when medically stable; working on adjusting his antipsychotic regimen to manage his delirium as per above. Patient seen in collaboration with Dr. Hinojosa. Please see addendum. I spent a total of 50 minutes coordinating, documenting, and providing care for this patient excluding time spent in the performance of separately billed services. This included personally reviewing all current laboratories and imaging studies, medical reconciliation, outpatient chart review and discussion with specialists. This chart was completed in part utilizing Speech Voice Recognition Software. Grammatical errors, random word insertions, pronoun errors, and incomplete sentences are an occasional consequence of this system due to software limitations, ambient noise, and hardware issues. Any formal questions or concerns about the content, text, or information contained within the body of this dictation should be directly addressed to the provider for clarification. Admission and Anticipated Discharge Date Admission Date: May 20, 2024 Subjective Patient seen and examined at bedside this morning. Patient with increased agitation overnight and had to receive another dose of 2.5mg IM Zyprexa. INTERACTIVE MEDIA DESIGNER at bedside reports that the patient has been alert this morning and cooperating with staff. Review of Systems Review of Systems: Unable to properly obtain secondary to the patient's expressive aphasia. Physical Exam Physical Exam: General: Tall/thin M, NAD, sitting up in bed with INTERACTIVE MEDIA DESIGNER at bedside, severe expressive aphasia, A&O to direct yes/no questioning. HEENT: Normocephalic, atraumatic. Conjunctivae normal. External ear and nose normal, oropharynx normal. Respiratory: Normal respiratory effort, lungs clear to auscultation, no wheeze/rales/rhonchi. No accessory muscle use. Cardiovascular: Regular rate, rhythm, normal peripheral pulses, no BLE edema. Vessels: No JVD. Abdomen/GI: Normal bowel sounds, soft, nondistended, nontender to palpation in all quadrants. Results & Data Results & Data Vital Signs (Past 12 Hours) Vital Signs Temp Pulse Resp BP Pulse Ox O2 Del Method 06/02/24 19:51 36.5 C 75 18 123/73 97 Room Air Laboratory Results Short CBC 06/03/24 Range/Units 06:58 WBC 7.92 (4.8-10.8) K/ul Hgb 11.7 L (14.0-18.0) g/dl Hct 33.8 L (42.0-52.0) % Plt Count 332 (130-400) K/uL [facility] 06/03/24 06:58 Sodium 136 Potassium 3.9 Chloride 107 Carbon Dioxide 20 L BUN 47 H Creatinine 1.58 H Glucose 129 H Calcium 8.9
[2024-06-03 07:34] LABS: Hematocrit (blood only) 33.8 % (42.0-52.0); Hemoglobin 11.7 g/dl (14.0-18.0); Mean Corpuscular Hemoglobin 29.7 pg (25.0-34.0); Mean Corpuscular Hgb Conc 34.6 g/dL (32.0-36.0); Mean Corpuscular Volume 85.8 fL (80.0-100.0); Platelet Count 332 K/uL (130-400); RDW Standard Deviation 43.8 fL (36.4-46.3); Red Blood Count 3.94 M/uL (4.70-6.10); White Blood Count 7.92 K/ul (4.8-10.8)
[2024-06-03 07:42] LABS: BUN Creatinine Ratio 29.7 (10-20); Calcium 8.9 mg/dl (8.6-10.3); Magnesium 1.7 mg/dl (1.7-2.4); Potassium 3.9 mmol/L (3.5-5.1)
[2024-06-03] MEDS: ARIPiprazole 5 MG TAB PO SCH (21:25)
[2024-06-04] MEDS: OLANZapine ZYDIS 5 MG ORALLY DIS. TAB PO STA (06:58)
[2024-06-04] MEDS: OLANZapine 10 MG/2.1 ML SDV IM STA (07:22)
[2024-06-04 11:59] LABS: Hematocrit (blood only) 36.3 % (42.0-52.0); Hemoglobin 12.1 g/dl (14.0-18.0); Mean Corpuscular Hemoglobin 28.6 pg (25.0-34.0); Mean Corpuscular Hgb Conc 33.3 g/dL (32.0-36.0); Mean Corpuscular Volume 85.8 fL (80.0-100.0); Mean Platelet Volume 10.1 fL (9.4-12.4); Platelet Count 318 K/uL (130-400); RDW Coefficient of Variation 13.8 % (11.5-14.5); RDW Standard Deviation 42.9 fL (36.4-46.3); Red Blood Count 4.23 M/uL (4.70-6.10); White Blood Count 11.33 K/ul (4.8-10.8)
[2024-06-04 12:01] LABS: BUN Creatinine Ratio 26.9 (10-20); Calcium 9.3 mg/dl (8.6-10.3); Creatinine Clr Calc Pharmacy 47.8 ml/min; Magnesium 1.6 mg/dl (1.7-2.4)
[2024-06-04] MEDS: OLANZapine ZYDIS 5 MG ORALLY DIS. TAB PO SCH (13:15)
--- NOTE | 2024-06-04 15:25 | Hospitalist Progress Note ---
<Statement entered by Avery Hinojosa, - 06/04/24 17:06> I have seen and examined the patient and have discussed the case with the provider above. I have reviewed the advanced practitioner's documentation, and I agree with, and take responsibility for that plan of care. Patient extremely restless earliest morning requiring IM Zyprexa. Kicking at staff and agitated. Time of my evaluation patient still somewhat restless but not violent. Patient cannot verbalize any definitive complaints. Increase Abilify 5 mg twice daily Scheduled Zyprexa 2 times daily Standing IM Zyprexa as needed for severe agitation Increase melatonin to help with sleep through the night. Continue to monitor behaviors with these medication changes Further plan of care as outlined below, discussed med changes with RUDDY Date of Service June 04, 2024 Assessment & Plan (1) Acute drug-induced confusion: (2) Aphasia due to recent cerebrovascular accident (CVA): (3) Acute kidney injury superimposed on CKD: (4) Gross hematuria: Plan Mg Little is an 84-year-old male with past medical history significant for DM type II, diabetic polyneuropathy, alcohol use, arthritis, gout, HTN, GERD, Anderson's esophagus, history of diverticulitis, CKD stage III and recent acute ischemic left MCA stroke who presented to the ED via EMS from [facility] on 05/18/2024 secondary to increased lethargy. He is currently being managed for the following: Acute Drug-Induced Confusion, Delirium Severe Expressive Aphasia & Cognitive Changes 2/2 Recent CVA: Patient was recently admitted to [facility] on 05/08/2024 with acute onset of right-sided weakness and was ultimately found to have an acute CVA due to left MCA M3 branch occlusion. Patient received TNK at that time as directed the on- call TeleStroke neurologist from [facility]. Patient however developed expressive aphasia and word finding difficulty after administration of the TNK but he did show significant improvement in his right-sided weakness. Patient was ultimately transferred to the ICU here at [facility] for further inpatient management however early on 05/09/2024, the patient had worsening expressive aphasia, new right- sided facial drooping and right hemiparesis. Repeat head CT did not show any new acute intracranial findings but repeat CTA revealed possible residual thrombus in the M2 segment therefore the patient was transferred to [facility] via [facility] for possible thrombectomy on 05/09/2024. Per discharge summary from [facility]: CTP showed slowed perfusion in the left hemisphere. DSA was performed and no LVO was found, but LICA stent was placed. Patient was placed on heparin drip and then transitioned to DAPT. MRI brain showed multiple small acute infarcts in the left cerebral hemisphere, the largest in the parietal lobe. These are in the middle anterior cerebral artery distribution. Small petechial hemorrhage in the left postcentral gyrus. TTE showing small PFO, unlikely contributory. LDL 124, A1C 7.1; His clinical course was complicated by hyperactive delirium which required Precedex which was eventually transitioned to scheduled Seroquel (the dose was rapidly titrated to the discharge dose of 25mg in the AM, 50 mg HS - seemed to control his symptoms per neurology notes from [facility]). LTM EEG showed slowing but no epileptiform activity. NG tube was placed due to poor oral tolerance but with resolution of his delirium he began eating PO. He was evaluated by speech therapy at [facility] who recommended soft & bite-sized solids with thin liquids, HOB at 90 degrees for all intake including meds. Report from [facility] was that patient was more agitated the evening prior to presenting to the ED so he was given 75mg of Seroquel instead of his usual dose of 50mg HS as per above. Head CT from 05/18/2024 showed subacute infarcts similar in distribution to areas of infarct seen on brain MRI done 05/10/24 at [facility] per [facility] records. Suspect confusion due to medication, not progression of CVA. By 05/19/2024, patient was back at his baseline mentation status. He was somewhat lethargic in the AM on 05/24/2024 but that resolved by the afternoon. VBG was checked at that time and WNL. 06/02/2024 Patient with occasional aggressiveness with tending to pull out medical equipment including Dominguez catheter (now removed) previously. Previously required soft restraints. Repeat head CT done 05/30/2024 without acute change, shows evolving changes of recent CVA but decreasing in size. Seroquel dose was initially decreased to 25mg BID. Patient was seen and evaluated by psychiatry on 06/01/2024. Psychiatry recommended considering a trial of a less sedating antipsychotic such as Abilify 2.5mg daily vs Seroquel 25mg BID, which may also help with delirium/restlessness. Seroquel 25mg BID stopped; he was started on 2.5mg Abilify daily. His mentation status seems to be improving, continue to monitor. Remains otherwise medically stable. Last dose of IM Zyprexa was on 05/31/2024 at 13:00. , 06/03/2024 Patient with some increased agitation/delirium overnight; he had to receive an additional dose of 2.5mg IM Zyprexa. Patient cooperative with staff on [facility] this morning, mentation status stable. He is able to answer direct yes/no questions with head nodding, simple "yes/no" phrases. Has sitter at bedside. Discussed with Dr. Comer regarding the patient's increased delirium overnight --> Will increase dose of Abilify to 2.5mg BID; "unfortunately there are no known effective medications for treating delirium nor post-stroke behavioral complications." Per previous psych consult --> "If concern for delirium lessens and restlessness is thought to be a manifestation of distress from CVA and expressive aphasia could do a very low dose and cautious trial of Ativan po or IV to see if this lessens distress without subsequently worsening confusion." Will hold off on Ativan or any other benzodiazepines for now. 06/04/2024 Patient with increased agitation this morning around 7AM; he required another dose of 2.5mg IM Zyprexa. Given that, the following antipsychotic medication changes are being made: po Abilify increased to 5mg BID and adding on po Zyprexa 5mg BID. Continue sitter at bedside. Monitor delirium/aggression on new regimen and continue to adjust PRN. Was able to get in touch with the patient's daughter + Marcia TRIVEDI (cell #[phone]), this afternoon and updated her on the plan of care. She is coming up on Friday, 06/07, from [place] where she resides. Patient has been working with PT/OT intermittently --> Recommending return to [facility] for rehab once medically stable. Continue DAPT and statin for recent CVA. MICHAEL on CKD Stage III - RESOLVED: Baseline Cr ~1.4-1.7 per chart review. Cr was previously elevated at 1.85 on admission, trended up to 2.57 on 05/22/2024. Cr now at baseline; continue to hold chlorthalidone. Will resume losartan as his BP is elevated today as per below. He follows with [facility] as an outpatient [Dr. Mackey]. Continue to monitor renal function and avoid nephrotoxic medications when able. Gross Hematuria - RESOLVED: Patient noted to have vernon hematuria in his condom catheter on 05/18/2024. UA from 05/18 with no evidence of urine bacteria. CTAP on 05/18/2024 --> Noted stable left renal cortical cyst measuring 8.5mm, blood clot burden within the bladder. Urology was consulted. S/p cystoscopy on 05/19/2025. Had Dominguez in place. Was on ciprofloxacin while on CBI per urology's recommendation, this has been completed. Hematuria has cleared as of 05/27/2024 --> ASA 81mg daily and SQ heparin resumed as they were previously placed on hold ISO active bleeding. Dominguez catheter removed on 05/28/2024; spontaneous voiding trial. Still with urinary incontinence, uses urinal. Bladder scan PRN. Plavix also resumed as hematuria is resolved. HTN: Patient noted to be hypertensive today. His antihypertensives were adjusted at [facility] and at the time of discharge he was on the following: olmesartan 20mg daily, chlorthalidone 25mg daily and hydralazine 10 mg BID. All BP meds were on hold, going to restart losartan; holding chlorthalidone and hydralazine for now. Continue to monitor BP closely and resume home meds if/when able. Other Chronic Medical Conditions: * Hypomagnesemia - Mag 1.6 today, will replete via IV as able with patient's agitation. * DM Type II - Chronic, stable. Hgb A1c was 7.2 on 05/09/2024. SSI on board, BSG remains stable. * Gout/GERD/Iron Deficiency - Can resume medications for these specific conditions when able. Can also resume home latanoprost eye drops. DVT Prophylaxis: SQ Heparin Code Status: DNR/DNI - No Resuscitation PCP: Art Cavazos, Disposition: PT/OT recommending return to [facility] when medically stable; working on adjusting his antipsychotic regimen to manage his delirium as per above. Patient seen in collaboration with Dr. Hinojosa. Please see addendum. I spent a total of 45 minutes coordinating, documenting, and providing care for this patient excluding time spent in the performance of separately billed services. This included personally reviewing all current laboratories and imaging studies, medical reconciliation, outpatient chart review and discussion with specialists. This chart was completed in part utilizing Speech Voice Recognition Software. Grammatical errors, random word insertions, pronoun errors, and incomplete sentences are an occasional consequence of this system due to software limitations, ambient noise, and hardware issues. Any formal questions or concerns about the content, text, or information contained within the body of this dictation should be directly addressed to the provider for clarification. Admission and Anticipated Discharge Date Admission Date: May 20, 2024 Subjective Patient seen and examined at bedside this morning in room N376-1. Patient with increased agitation earlier this morning which required an additional dose of IM Zyprexa 2.5mg. VIDEO GAME ANIMATOR at bedside reports that the patient was previously agitated and kicking nursing staff. He was more calm at the time of my examination however nursing staff reports he becomes agitated with very minimal care. He refused to put on a gown this morning and was lying in bed undressed this morning. He was able to tell me "no" when asked if he was experiencing any pain. He refused to take some of his medications this morning. Nursing staff was however able to get him to take both his Plavix and dose of Abilify. VIDEO GAME ANIMATOR at bedside reports he threw other medications across the room when they were given to him. Review of Systems Review of Systems: Unable to properly obtain secondary to the patient's expressive aphasia. Physical Exam Physical Exam: General: Tall/thin M, NAD, laying in bed undressed with VIDEO GAME ANIMATOR at bedside, severe expressive aphasia, A&O to direct yes/no questioning. HEENT: Normocephalic, atraumatic. Conjunctivae normal. External ear and nose normal, oropharynx normal. Respiratory: Normal respiratory effort, lungs clear to auscultation, no wheeze/rales/rhonchi. No accessory muscle use. Cardiovascular: Regular rate, rhythm, normal peripheral pulses, no BLE edema. Vessels: No JVD. Results & Data Results & Data Vital Signs (Past 12 Hours) Vital Signs Temp Pulse Resp BP Pulse Ox O2 Del Method 06/04/24 14:02 36.7 C 98 H 16 165/100 H 95 Room Air 06/04/24 07:16 37.0 C 80 17 140/70 96 Room Air Laboratory Results Short CBC 06/04/24 Range/Units 11:25 WBC 11.33 H (4.8-10.8) K/ul Hgb 12.1 L (14.0-18.0) g/dl Hct 36.3 L (42.0-52.0) % Plt Count 318 (130-400) K/uL BMP 06/04/24 11:25 Sodium 137 Potassium 4.0 Chloride 106 Carbon Dioxide 25 BUN 32 H Creatinine 1.19 D Glucose 160 H Calcium 9.3
[2024-06-04] MEDS: MAGNESIUM SULFATE / D5W 1 GM/100 ML BAG IV ONE (16:10)
[2024-06-04] MEDS: MELATONIN 3 MG TAB PO SCH (20:27)
[2024-06-04] MEDS: ARIPiprazole 5 MG TAB PO SCH (20:29)
[2024-06-04] MEDS: FERROUS SULFATE 325 MG/7.4 ML UDP PO SCH (20:33)
[2024-06-05 07:34] LABS: Hemoglobin 12.7 g/dl (14.0-18.0); Mean Corpuscular Hemoglobin 29.3 pg (25.0-34.0); Mean Corpuscular Hgb Conc 34.3 g/dL (32.0-36.0); Mean Corpuscular Volume 85.3 fL (80.0-100.0); Platelet Count 322 K/uL (130-400); RDW Coefficient of Variation 13.7 % (11.5-14.5); RDW Standard Deviation 42.5 fL (36.4-46.3); Red Blood Count 4.34 M/uL (4.70-6.10); White Blood Count 8.58 K/ul (4.8-10.8)
[2024-06-05 08:12] LABS: Calcium 9.3 mg/dl (8.6-10.3); Creatinine Clr Calc Pharmacy 52.7 ml/min; Magnesium 1.8 mg/dl (1.7-2.4); Potassium 3.9 mmol/L (3.5-5.1)
--- NOTE | 2024-06-05 08:53 | Hospitalist Progress Note ---
<Statement entered by Avery Hinojosa DO - 06/05/24 15:15> I have seen and examined the patient and have discussed the case with the provider above. I have reviewed the advanced practitioner's documentation, and I agree with, and take responsibility for that plan of care. Patient seen early this morning, medication changes seem to be effective at least overnight did not require any IM Zyprexa. Patient bit drowsy and difficult to awaken for breakfast this morning. Adjust medications as outlined below, decreasing scheduled Zyprexa. Continue current dose of Abilify Further plan of care as outlined below and discussed with RUDDY Date of Service June 05, 2024 Assessment & Plan (1) Acute drug-induced confusion: (2) Aphasia due to recent cerebrovascular accident (CVA): (3) Acute kidney injury superimposed on CKD: (4) Gross hematuria: Plan This is an 84-year-old male with PMH of DM type II, diabetic polyneuropathy, alcohol use, arthritis, gout, HTN, GERD, Anderson's esophagus, history of diverticulitis, CKD stage III and recent acute ischemic left MCA stroke who presented to the ED via EMS from [facility] on 05/18/2024 secondary to increased lethargy. Acute Drug-Induced Confusion, Delirium Severe Expressive Aphasia & Cognitive Changes 2/2 Recent CVA: Patient was recently admitted to [facility] on 05/08/2024 with acute onset of right- sided weakness and was ultimately found to have an acute CVA due to left MCA M3 branch occlusion, received TNK at that time Patient had worsening expressive aphasia, new right-sided facial drooping and right hemiparesis on 05/09, repeat CTA revealed possible residual thrombus in the M2 segment therefore the patient was transferred to [facility], CTP showed slowed perfusion in the left hemisphere. DSA was performed and no LVO was found, but LICA stent was placed MRI brain showed multiple small acute infarcts in the left cerebral hemisphere, the largest in the parietal lobe. These are in the middle anterior cerebral artery distribution. Small petechial hemorrhage in the left postcentral gyrus. TTE showing small PFO, unlikely contributory. Clinical course was complicated by hyperactive delirium which required Precedex which was eventually transitioned to scheduled Seroquel LTM EEG showed slowing but no epileptiform activity. Initially required NG tube due to poor oral tolerance but with resolution of his delirium he began eating PO. He was evaluated by speech therapy at [facility] who recommended soft & bite-sized solids with thin liquids Report from [facility] was that patient was more agitated the evening prior to presenting to the ED so he was given 75mg of Seroquel instead of his usual dose of 50mg HS as per above Head CT from 05/18/2024 showed subacute infarcts similar in distribution to areas of infarct seen on brain MRI done 05/10/24 at [facility] per [facility] records Suspect confusion due to medication, not progression of CVA By 05/19/2024, patient was back at his baseline mentation status. He was somewhat lethargic in the AM on 05/24/2024 but that resolved by the afternoon. VBG was checked at that time and WNL. Have spent 06/02-06/05 attempting to titrate antipsychotic medication in order to better manage intermittent agitation and aggression. Has required required soft restraint, PRN IM zyprexa, 1:1 sitting intermittently Repeat head CT done 05/30/2024 without acute change, shows evolving changes of recent CVA but decreasing in size Seroquel dose was initially decreased to 25mg BID. Patient was seen and evaluated by psychiatry on 06/01/2024 and recommended a less sedating antipsychotic such as Abilify 2.5mg daily Seroquel 25mg BID stopped; he was started on 2.5mg Abilify daily. His mentation status seems to be improving, continue to monitor. Requiring intermittent IM Zyprexa overnight (06/03, 06/04), seems to occur overnight. Discussed with psych again on 06/04- increased Abilify to 5mg BID, added back Zyprexa 5mg BID, requiring sitter at bedside, monitoring for delirium/aggression No IM Zyprexa required last night but appears lethargic Plan to continue Abilify to 5mg BID, reduce Zyprexa dose to 2.5mg BID Daughter/POYair Kennedy (cell #[phone]) visiting from [place] to see patient on Friday Per previous psych consult --> "If concern for delirium lessens and restlessness is thought to be a manifestation of distress from CVA and expressive aphasia could do a very low dose and cautious trial of Ativan po or IV to see if this lessens distress without subsequently worsening confusion." Will hold off on Ativan or any other benzodiazepines for now Patient has been working with PT/OT intermittently --> Recommending return to [facility] for rehab once medically stable. Continue DAPT and statin for recent CVA. MICHAEL on CKD Stage III - resolved Baseline Cr ~1.4-1.7 per chart review. Cr was previously elevated at 1.85 on admission, trended up to 2.57 on 05/22/2024 Cr now at baseline, resuming losartan Continue to hold chlorthalidone Follows with [facility] as an outpatient (Dr. Mackey) Continue to monitor renal function and avoid nephrotoxic medications when able. Gross Hematuria - resolved Patient noted to have vernon hematuria in his condom catheter on 05/18/2024. UA from 05/18 with no evidence of urine bacteria. CTAP on 05/18/2024 --> Noted stable left renal cortical cyst measuring 8.5mm, blood clot burden within the bladder. Urology was consulted. S/p cystoscopy on 05/19/2025. Had Dominguez in place. Was on ciprofloxacin while on CBI per urology's recommendation, this has been completed. Hematuria has cleared as of 05/27/2024 --> ASA 81mg daily and SQ heparin resumed as they were previously placed on hold ISO active bleeding Dominguez catheter removed on 05/28/2024; spontaneous voiding trial. Still with urinary incontinence, uses urinal. Bladder scan PRN. Plavix also resumed as hematuria is resolved HTN His antihypertensives were adjusted at [facility] and at the time of discharge he was on the following: olmesartan 20mg daily, chlorthalidone 25mg daily and hydralazine 10 mg BID Resumed losartan Continue holding chlorthalidone and hydralazine for now Other Chronic Medical Conditions: * Hypomagnesemia - Mag 1.6 today, will replete via IV as able with patient's agitation * DM Type II - Chronic, stable. Hgb A1c was 7.2 on 05/09/2024. SSI on board, BSG remains stable. * Gout/GERD/Iron Deficiency - Can resume medications for these specific conditions when able. Can also resume home latanoprost eye drops. DVT Prophylaxis: SQ Heparin Code Status: DNR/DNI PCP: Dirk Disposition: PT/OT recommending return to [facility] when medically stable; working on adjusting his antipsychotic regimen to manage his delirium as per above Patient seen in collaboration with Dr. Hinojosa. Please see addendum. I spent a total of 45 minutes coordinating, documenting, and providing care for this patient excluding time spent in the performance of separately billed services. This included personally reviewing all current laboratories and imaging studies, medical reconciliation, outpatient chart review and discussion with specialists. Admission and Anticipated Discharge Date Admission Date: May 20, 2024 Subjective Patient seen and examined at bedside this morning in room N376-1. Required IM Zyprexa overnight 2 nights ago and PO meds adjusted with help of psych. Resting comfortably and sleeping during rounds this AM but did awaken to take his AM meds. Unable to provide ROS. Last documented bowel movement from 06/01. Review of Systems Review of Systems: Unobtainable due to cognitive status Physical Exam Physical Exam: Gen: WD/WN, NAD, resting in bed comfortably,lethargic but awakens to verbal stimuli, + baseline expressive aphasia HEENT: Normocephalic, atraumatic, conjunctivae moist, sclerae anicteric, mucous membranes moist Lung: Clear to Auscultation bilaterally, no wheezes/rales/rhonchi Heart: Regular rate, regular rhythm Abdomen: Soft, NT, ND +BS x 4 Extremities: + R sided weakness (chronic), no edema Skin: Warm, no rash Results & Data Results & Data Vital Signs (Past 12 Hours) Vital Signs Temp Pulse Resp BP Pulse Ox O2 Del Method 06/05/24 07:41 36.7 C 79 16 135/75 96 Room Air Laboratory Results Short CBC 06/05/24 Range/Units 06:49 WBC 8.58 (4.8-10.8) K/ul Hgb 12.7 L (14.0-18.0) g/dl Hct 37.0 L (42.0-52.0) % Plt Count 322 (130-400) K/uL BMP 06/05/24 06:49 Sodium 138 Potassium 3.9 Chloride 107 Carbon Dioxide 23 BUN 27 H Creatinine 1.08 Glucose 151 H Calcium 9.[address] 05/18/24 10:59 CT OF THE HEAD WITHOUT CONTRAST CLINICAL HISTORY: Altered mental status. COMPARISON STUDY: MRI of the brain and head CT and CTA of the head May 08, 2024. Head CT May 09, 2024. CT DOSE: 625.8 mGy.cm TECHNIQUE: Helical axial images of the head were obtained without IV contrast. Automated exposure control was utilized for the study. A dose lowering technique was utilized adhering to the principles of ALARA. FINDINGS: No acute intracranial hemorrhage, midline shift or mass effect is present. Ventricular system is unremarkable. Basal cisterns are patent. There are no extra-axial collections. A 5.3 cm hypodense focus with loss of crump-white differentiation within the left parietal lobe is noted. This favors a subacute infarct which has increased in extent since MRI of May 08, 2024. A few additional suspected subacute infarcts within left basal ganglia and left diego radiata are present. There is no mass effect. There is no evidence for hemorrhagic conversion. Punctate radiodensities within the left parietal lobe infarct favor calcifications. IMPRESSION: 1. No acute intracranial hemorrhage. No mass effect. 2. 5.3 cm hypodense focus with loss of crump-white differentiation within the left parietal lobe. This favors a subacute infarct with increase in extent since MRI of May 08, 2024. Several additional suspected subacute infarcts within the left basal ganglia and left diego radiata. ACT 112: Negative or not required by law. Electronically signed by: Issa Graf M.D. 05/18/2024 12:23 PM Chest X-Ray 05/18/24 11:00 XR chest 1V portable CLINICAL HISTORY: Altered mental status COMPARISON STUDY: Chest radiograph April 08, 2018. FINDINGS: Lung volumes are normal. There is no consolidation. Linear right lower lung density suggests atelectasis. There is no pneumothorax or pleural effusion. Cardiac size is normal. Mediastinal contours are normal. There is no evidence for pulmonary edema. IMPRESSION: No acute cardiopulmonary findings. ACT 112: Negative or not required by law. Electronically signed by: Issa Graf M.D. 05/18/2024 11:41 AM Abdomen/Pelvis CT 05/18/24 19:14 Exam(s): CT ABDOMEN + PELVIS Without Contrast EXAM: CT Abdomen and Pelvis Without Intravenous Contrast CLINICAL HISTORY: Vernon hematuria. Assess. TECHNIQUE: Axial computed tomography images of the abdomen and pelvis without intravenous contrast. CTDI is 22.78 mGy and DLP is 1179.28 mGy-cm. Automated exposure control was utilized for the study. A dose lowering technique was utilized adhering to the principles of ALARA. COMPARISON: CT abdomen and pelvis with contrast dated 04/15/2018 FINDINGS: Artifacts: Scatter artifact likely related to patient's arm position. Limitations: There is respiratory artifact, which degrades image quality on multiple image slices. Lung bases: Curvilinear changes noted at the lung bases. No consolidation. ABDOMEN: Liver: Unremarkable. Gallbladder and bile ducts: Unremarkable. No calcified stones. No ductal dilation. Pancreas: Unremarkable. No ductal dilation. Spleen: Unremarkable. No splenomegaly. Adrenals: Unremarkable. No mass. Kidneys and ureters: The unenhanced kidneys demonstrate similar contours to the prior examination. No hydronephrosis, nephrolithiasis or ureteral stones. The previously noted cortical cyst posteriorly at the midpole of the left kidney is grossly stable, measuring approximately 8.5 mm. Detail evaluation limited. Stomach and bowel: No evidence for bowel obstruction. Evaluation of the bowel mucosa is slightly limited without contrast. Extensive diverticulosis noted involving the distal descending and sigmoid colon. No obvious diverticulitis. PELVIS: Appendix: A normal caliber appendix is noted in the right lower quadrant. Bladder: A Dominguez catheter is noted in the bladder. There is extensive hyperdense material throughout the bladder. Is most consistent with hemorrhagic clot burden throughout the bladder. Detail evaluation limited without contrast. No stones. Reproductive: Prostatic hypertrophy. ABDOMEN and PELVIS: Intraperitoneal space: Unremarkable. No free air. No significant fluid collection. Bones/joints: No acute fracture. No dislocation. Soft tissues: Hyperdense crescentic and irregular soft tissue swelling noted superficial to the right common femoral vasculature at the right groin. Vasculature: Unremarkable. No abdominal aortic aneurysm. Lymph nodes: Unremarkable. No enlarged lymph nodes. IMPRESSION: 1. The unenhanced kidneys demonstrate similar contours to the prior examination. No hydronephrosis, nephrolithiasis or ureteral stones. The previously noted cortical cyst posteriorly at the midpole of the left kidney is grossly stable, measuring approximately 8.5 mm. Detail evaluation limited. 2. A Dominguez catheter is noted in the bladder. There is extensive hyperdense material throughout the bladder. The appearance is most consistent with brain clot burden. No obvious focal bladder wall thickening. Detail evaluation limited. Prostatic hypertrophy. 3. Hyperdense crescentic and irregular soft tissue swelling noted superficial to the right common femoral vasculature at the right groin. Please correlate clinically for attempted vascular access in this region. Electronically signed by: George Newman MD 05/18/24 22:08 PM Abdomen/Pelvis CT 05/24/24 08:48 CT OF THE ABDOMEN AND PELVIS WITHOUT CONTRAST CLINICAL HISTORY: Gross hematuria. COMPARISON STUDY: CT of the abdomen and pelvis May 18, 2024. TECHNIQUE: Axial images of the abdomen and pelvis were obtained without IV contrast. Images were reviewed in the axial, sagittal, and coronal planes. Automated exposure control was utilized for the study. A dose lowering technique was utilized adhering to the principles of ALARA. FINDINGS: No pneumatosis, free air or portal venous gas is present. No renal, ureteral or bladder calculi are present. There is no hydronephrosis. A Dominguez balloon within the bladder is noted. Hyperdense material within the bladder is again noted. This suggests a moderate amount of clot. Sensitivity for detection of urothelial lesions is diminished on unenhanced exam. Prostate is enlarged, measuring 6.5 cm in caliber. A small amount of hemorrhage within the right groin is noted. Density of the clot has decreased since prior CT. Evaluation the remainder of the abdomen and pelvis is suboptimal on this unenhanced examination. Liver, spleen, adrenal glands and pancreas are unremarkable with the exception of pancreatic glandular atrophy. There is no lymphadenopathy. There is no evidence for a bowel obstruction. Note is made of extensive colonic diverticulosis without evidence for acute diverticulitis. IMPRESSION: 1. No urinary calculi or hydronephrosis. 2. Moderate amount of hyperdense material within the bladder consistent with clot. Dominguez balloon within the bladder. 3. Enlarged prostate. 4. Redemonstration of a small amount of hemorrhage within the right groin which has decreased in density since prior CT. ACT 112: Negative or not required by law. Electronically signed by: Issa Graf M.D. 05/24/2024 11:[address] 05/30/24 13:38 CT head without contrast History: Altered mental status Comparison: 05/18/2024 Technique: Using multidetector thin collimation helical acquisition technique, axial, coronal and sagittal CT images from the skull base to the vertex were obtained without intravenous contrast. Dose reduction techniques were achieved by using automatic exposure control and/or adjustment of mA and/or kV according to patient size and/or use of iterative reconstruction technique. Findings: No intracranial hemorrhage, mass-effect, or midline shift. The ventricles are proportionate to the cerebral sulci. There is marked cerebral atrophy. Evolving areas of previously seen infarct which are decreasing in conspicuity in the high left frontal lobe, the left caudate nucleus, and in the left temporal parietal lobe. No convincing evidence for new infarct. The basal cisterns are patent. The visualized paranasal sinuses are clear. Mastoid air cells are clear. Impression: No acute intracranial pathology. Electronically signed by Sathya Claire 05-30-2024 3:13 PM
[2024-06-05] MEDS: OLANZAPINE 2.5 MG TAB PO SCH (20:47)
[2024-06-06 07:21] LABS: Hematocrit (blood only) 37.4 % (42.0-52.0); Hemoglobin 12.5 g/dl (14.0-18.0); Mean Corpuscular Hemoglobin 28.7 pg (25.0-34.0); Mean Corpuscular Hgb Conc 33.4 g/dL (32.0-36.0); Platelet Count 294 K/uL (130-400); RDW Coefficient of Variation 14.1 % (11.5-14.5); RDW Standard Deviation 44.6 fL (36.4-46.3); Red Blood Count 4.35 M/uL (4.70-6.10); White Blood Count 8.75 K/ul (4.8-10.8)
[2024-06-06 07:51] LABS: Anion Gap 10 (3-11); BUN Creatinine Ratio 22.4 (10-20); Blood Urea Nitrogen 41 mg/dl (6-23); Calcium 9.2 mg/dl (8.6-10.3); Carbon Dioxide 19 mmol/L (21-32); Chloride 108 mmol/L (98-107); Creatinine Clr Calc Pharmacy 31.1 ml/min; Glucose 139 mg/dl (70-99(Fasting)); Magnesium 1.9 mg/dl (1.7-2.4); Sodium 137 mmol/L (136-145)
--- NOTE | 2024-06-06 11:15 | Hospitalist Progress Note ---
<Statement entered by Avery Hinojosa, - 06/06/24 15:37> I have seen and examined the patient and have discussed the case with the provider above. I have reviewed the advanced practitioner's documentation, and I agree with, and take responsibility for that plan of care. Patient sleepy but arousable tomorrow visit. Nurses aide at the bedside cared for him yesterday as well. She reports that he was awake earlier today ate his full breakfast and did well with taking his pills. She reports yesterday afternoon he was awake and they had a good conversation. His behaviors have significantly improved and he has not needed any as needed medications to control his behaviors for greater than 48 hours. Continue with current medical plan, agree with discontinuing one-to-one Further plan of care as outlined below discussed with RUDDY. Date of Service June 06, 2024 Assessment & Plan (1) Acute drug-induced confusion: (2) Aphasia due to recent cerebrovascular accident (CVA): (3) Acute kidney injury superimposed on CKD: (4) Gross hematuria: Plan This is an 84-year-old male with PMH of DM type II, diabetic polyneuropathy, alcohol use, arthritis, gout, HTN, GERD, Anderson's esophagus, history of diverticulitis, CKD stage III and recent acute ischemic left MCA stroke who presented to the ED via EMS from [facility] on 05/18/2024 secondary to increased lethargy. Acute Drug-Induced Confusion, Delirium Severe Expressive Aphasia & Cognitive Changes 2/2 Recent CVA: Pertinent recent hospital course: Patient was recently admitted to [facility] on 05/08/2024 with acute onset of right- sided weakness and was ultimately found to have an acute CVA due to left MCA M3 branch occlusion, received TNK at that time. Had worsening expressive aphasia, new right-sided facial drooping and right hemiparesis on 05/09, repeat CTA revealed possible residual thrombus in the M2 segment therefore the patient was transferred to [facility]. [place] [facility] [place]P showed slowed perfusion in the left hemisphere. DSA was performed and no LVO was found, but LICA stent was placed. MRI brain showed multiple small acute infarcts in the left cerebral hemisphere, the largest in the parietal lobe. These are in the middle anterior cerebral artery distribution. Small petechial hemorrhage in the left postcentral gyrus. TTE showing small PFO, unlikely contributory. Clinical course was complicated by hyperactive delirium which required Precedex which was eventually transitioned to scheduled Seroquel. LTM EEG showed slowing but no epileptiform activity. Initially required NG tube due to poor oral tolerance but with resolution of his delirium he began eating PO. He was evaluated by speech therapy at [facility] who recommended soft & bite-sized solids with thin liquids. Was then discharged ton [facility]. While there, had Seroquel dose increased due to agitation (75mg HS) and presented to [facility] on 05/[address] from 05/18/2024 showed subacute infarcts similar in distribution to areas of infarct seen on brain MRI done 05/10/24 at [facility] per Epic records. Suspect confusion due to medication, not progression of CVA. Has had intermittent agitation requirring soft restraints, IM Zyprexa overnight as well as 1:1. Have been titrating medications with help of psych with goal to reduce intermittent agitation and hallucinations without sedation. Repeat head CT done 05/30/2024 without acute change, shows evolving changes of recent CVA but decreasing in size. Per psych recommendation on 06/01, trialed a less sedating antipsychotic such as Abilify 2.5mg daily -> titrated up to 5mg BID Seroquel dc'd for a time but then patient began requiring intermittent IM Zyprexa overnight again (06/03, 06/04), as well as 1:1 Resumed Seroquel at 5mg BID -> decreased to 2.5 mg BID on 06/05 in attend to increase alertness Seems to be tolerating current medication regimen of Abilify 5mg BID, Seroquel 2.5mg BID well, with periods of alertness, able to finish meals and have simple conversations No IM Zyprexa needed since 06/04 Discontinue 1:1 Will call Marcia/FAROOQ today with update (cell #[phone]) - she is due to visit from [place] and see patient tomorrow Patient has been working with PT/OT intermittently --> Recommending return to [facility] for rehab once medically stable. Continue DAPT and statin for recent CVA. MICHAEL on CKD Stage III - resolved Baseline Cr ~1.4-1.7 per chart review. Cr was previously elevated at 1.85 on admission, trended up to 2.57 on 05/22/2024 Cr now at baseline, resuming losartan Continue to hold chlorthalidone Follows with [facility] as an outpatient (Dr. Mackey) Continue to monitor renal function and avoid nephrotoxic medications when able. Gross Hematuria - resolved Patient noted to have vernon hematuria in his condom catheter on 05/18/2024. UA from 05/18 with no evidence of urine bacteria. CTAP on 05/18/2024 --> Noted stable left renal cortical cyst measuring 8.5mm, blood clot burden within the bladder. Urology was consulted. S/p cystoscopy on 05/19/2025. Had Dominguez in place. Was on ciprofloxacin while on CBI per urology's recommendation, this has been completed. Hematuria has cleared as of 05/27/2024 --> ASA 81mg daily and SQ heparin resumed as they were previously placed on hold ISO active bleeding Dominguez catheter removed on 05/28/2024; spontaneous voiding trial. Still with urinary incontinence, uses urinal. Bladder scan PRN. Plavix also resumed as hematuria is resolved HTN His antihypertensives were adjusted at [facility] and at the time of discharge he was on the following: olmesartan 20mg daily, chlorthalidone 25mg daily and hydralazine 10 mg BID Resumed losartan Continue holding chlorthalidone and hydralazine for now Other Chronic Medical Conditions: * Hypomagnesemia - Mag 1.6 today, will replete via IV as able with patient's agitation * DM Type II - Chronic, stable. Hgb A1c was 7.2 on 05/09/2024. SSI on board, BSG remains stable. * Gout/GERD/Iron Deficiency - Can resume medications for these specific conditions when able. Can also resume home latanoprost eye drops. DVT Prophylaxis: SQ Heparin Code Status: DNR/DNI PCP: Dirk Disposition: PT/OT recommending return to [facility] when medically stable; working on adjusting his antipsychotic regimen to manage his delirium as per above Patient seen in collaboration with Dr. Hinojosa. Please see addendum. I spent a total of 45 minutes coordinating, documenting, and providing care for this patient excluding time spent in the performance of separately billed services. This included personally reviewing all current laboratories and imaging studies, medical reconciliation, outpatient chart review and discussion with specialists. Admission and Anticipated Discharge Date Admission Date: May 20, 2024 Subjective Patient seen and examined at bedside this morning in room N376-1. Did not require IM zyprexa overnight per nursing. Was able to sit up and eat at meals, watch TV and converse some with 1:1. No agitation. Is sleepy this morning during rounds and awakens somewhat to verbal stimuli. Unable to provide ROS. Last documented bowel movement from 06/01. Per RN more alert in afternoons and will re- evaluate then. Review of Systems Review of Systems: Unobtainable due to cognitive status Physical Exam Physical Exam: Gen: WD/WN, NAD, resting in bed comfortably,lethargic but awakens to verbal s timuli, + baseline expressive aphasia HEENT: Normocephalic, atraumatic, conjunctivae moist, sclerae anicteric, mucous membranes moist Lung: Clear to Auscultation bilaterally, no wheezes/rales/rhonchi Heart: Regular rate, regular rhythm Abdomen: Soft, NT, ND +BS x 4 Extremities: + R sided weakness (chronic), no edema Skin: Warm, no rash Results & Data Results & Data Vital Signs (Past 12 Hours) Vital Signs Temp Pulse Resp BP Pulse Ox O2 Del Method 06/06/24 07:30 36.3 C L 70 18 119/76 97 Room Air Laboratory Results Short CBC 06/06/24 Range/Units 06:21 WBC 8.75 (4.8-10.8) K/ul Hgb 12.5 L (14.0-18.0) g/dl Hct 37.4 L (42.0-52.0) % Plt Count 294 (130-400) K/uL BMP 06/06/24 06/06/24 06:21 08:03 Sodium 137 Potassium TNP 3.9 Chloride 108 H Carbon Dioxide 19 L BUN 41 H Creatinine 1.83 H D Glucose 139 H Calcium 9.[address] 05/18/24 10:59 CT OF THE HEAD WITHOUT CONTRAST CLINICAL HISTORY: Altered mental status. COMPARISON STUDY: MRI of the brain and head CT and CTA of the head May 08, 2024. Head CT May 09, 2024. CT DOSE: 625.8 mGy.cm TECHNIQUE: Helical axial images of the head were obtained without IV contrast. Automated exposure control was utilized for the study. A dose lowering technique was utilized adhering to the principles of ALARA. FINDINGS: No acute intracranial hemorrhage, midline shift or mass effect is present. Ventricular system is unremarkable. Basal cisterns are patent. There are no extra-axial collections. A 5.3 cm hypodense focus with loss of crump-white differentiation within the left parietal lobe is noted. This favors a subacute infarct which has increased in extent since MRI of May 08, 2024. A few additional suspected subacute infarcts within left basal ganglia and left diego radiata are present. There is no mass effect. There is no evidence for hemorrhagic conversion. Punctate radiodensities within the left parietal lobe infarct favor calcifications. IMPRESSION: 1. No acute intracranial hemorrhage. No mass effect. 2. 5.3 cm hypodense focus with loss of crump-white differentiation within the left parietal lobe. This favors a subacute infarct with increase in extent since MRI of May 08, 2024. Several additional suspected subacute infarcts within the left basal ganglia and left diego radiata. ACT 112: Negative or not required by law. Electronically signed by: Issa Graf M.D. 05/18/2024 12:23 PM Chest X-Ray 05/18/24 11:00 XR chest 1V portable CLINICAL HISTORY: Altered mental status COMPARISON STUDY: Chest radiograph April 08, 2018. FINDINGS: Lung volumes are normal. There is no consolidation. Linear right lower lung density suggests atelectasis. There is no pneumothorax or pleural effusion. Cardiac size is normal. Mediastinal contours are normal. There is no evidence for pulmonary edema. IMPRESSION: No acute cardiopulmonary findings. ACT 112: Negative or not required by law. Electronically signed by: Issa Graf M.D. 05/18/2024 11:41 AM Abdomen/Pelvis CT 05/18/24 19:14 Exam(s): CT ABDOMEN + PELVIS Without Contrast EXAM: CT Abdomen and Pelvis Without Intravenous Contrast CLINICAL HISTORY: Vernon hematuria. Assess. TECHNIQUE: Axial computed tomography images of the abdomen and pelvis without intravenous contrast. CTDI is 22.78 mGy and DLP is 1179.28 mGy-cm. Automated exposure control was utilized for the study. A dose lowering technique was utilized adhering to the principles of ALARA. COMPARISON: CT abdomen and pelvis with contrast dated 04/15/2018 FINDINGS: Artifacts: Scatter artifact likely related to patient's arm position. Limitations: There is respiratory artifact, which degrades image quality on multiple image slices. Lung bases: Curvilinear changes noted at the lung bases. No consolidation. ABDOMEN: Liver: Unremarkable. Gallbladder and bile ducts: Unremarkable. No calcified stones. No ductal dilation. Pancreas: Unremarkable. No ductal dilation. Spleen: Unremarkable. No splenomegaly. Adrenals: Unremarkable. No mass. Kidneys and ureters: The unenhanced kidneys demonstrate similar contours to the prior examination. No hydronephrosis, nephrolithiasis or ureteral stones. The previously noted cortical cyst posteriorly at the midpole of the left kidney is grossly stable, measuring approximately 8.5 mm. Detail evaluation limited. Stomach and bowel: No evidence for bowel obstruction. Evaluation of the bowel mucosa is slightly limited without contrast. Extensive diverticulosis noted involving the distal descending and sigmoid colon. No obvious diverticulitis. PELVIS: Appendix: A normal caliber appendix is noted in the right lower quadrant. Bladder: A Dominguez catheter is noted in the bladder. There is extensive hyperdense material throughout the bladder. Is most consistent with hemorrhagic clot burden throughout the bladder. Detail evaluation limited without contrast. No stones. Reproductive: Prostatic hypertrophy. ABDOMEN and PELVIS: Intraperitoneal space: Unremarkable. No free air. No significant fluid collection. Bones/joints: No acute fracture. No dislocation. Soft tissues: Hyperdense crescentic and irregular soft tissue swelling noted superficial to the right common femoral vasculature at the right groin. Vasculature: Unremarkable. No abdominal aortic aneurysm. Lymph nodes: Unremarkable. No enlarged lymph nodes. IMPRESSION: 1. The unenhanced kidneys demonstrate similar contours to the prior examination. No hydronephrosis, nephrolithiasis or ureteral stones. The previously noted cortical cyst posteriorly at the midpole of the left kidney is grossly stable, measuring approximately 8.5 mm. Detail evaluation limited. 2. A Dominguez catheter is noted in the bladder. There is extensive hyperdense material throughout the bladder. The appearance is most consistent with brain clot burden. No obvious focal bladder wall thickening. Detail evaluation limited. Prostatic hypertrophy. 3. Hyperdense crescentic and irregular soft tissue swelling noted superficial to the right common femoral vasculature at the right groin. Please correlate clinically for attempted vascular access in this region. Electronically signed by: George Newman MD 05/18/24 22:08 PM Abdomen/Pelvis CT 05/24/24 08:48 CT OF THE ABDOMEN AND PELVIS WITHOUT CONTRAST CLINICAL HISTORY: Gross hematuria. COMPARISON STUDY: CT of the abdomen and pelvis May 18, 2024. TECHNIQUE: Axial images of the abdomen and pelvis were obtained without IV contrast. Images were reviewed in the axial, sagittal, and coronal planes. Automated exposure control was utilized for the study. A dose lowering technique was utilized adhering to the principles of ALARA. FINDINGS: No pneumatosis, free air or portal venous gas is present. No renal, ureteral or bladder calculi are present. There is no hydronephrosis. A Dominguez balloon within the bladder is noted. Hyperdense material within the bladder is again noted. This suggests a moderate amount of clot. Sensitivity for detection of urothelial lesions is diminished on unenhanced exam. Prostate is enlarged, measuring 6.5 cm in caliber. A small amount of hemorrhage within the right groin is noted. Density of the clot has decreased since prior CT. Evaluation the remainder of the abdomen and pelvis is suboptimal on this unenhanced examination. Liver, spleen, adrenal glands and pancreas are unremarkable with the exception of pancreatic glandular atrophy. There is no lymphadenopathy. There is no evidence for a bowel obstruction. Note is made of extensive colonic diverticulosis without evidence for acute diverticulitis. IMPRESSION: 1. No urinary calculi or hydronephrosis. 2. Moderate amount of hyperdense material within the bladder consistent with clot. Dominguez balloon within the bladder. 3. Enlarged prostate. 4. Redemonstration of a small amount of hemorrhage within the right groin which has decreased in density since prior CT. ACT 112: Negative or not required by law. Electronically signed by: Issa Graf M.D. 05/24/2024 11:[address] 05/30/24 13:38 CT head without contrast History: Altered mental status Comparison: 05/18/2024 Technique: Using multidetector thin collimation helical acquisition technique, axial, coronal and sagittal CT images from the skull base to the vertex were obtained without intravenous contrast. Dose reduction techniques were achieved by using automatic exposure control and/or adjustment of mA and/or kV according to patient size and/or use of iterative reconstruction technique. Findings: No intracranial hemorrhage, mass-effect, or midline shift. The ventricles are proportionate to the cerebral sulci. There is marked cerebral atrophy. Evolving areas of previously seen infarct which are decreasing in conspicuity in the high left frontal lobe, the left caudate nucleus, and in the left temporal parietal lobe. No convincing evidence for new infarct. The basal cisterns are patent. The visualized paranasal sinuses are clear. Mastoid air cells are clear. Impression: No acute intracranial pathology. Electronically signed by Sathya Claire 05-30-2024 3:13 PM
--- NOTE | 2024-06-07 11:34 | Hospitalist Progress Note ---
<Statement entered by Avery Hinojosa, DO - 06/07/24 13:24> Correction to below, patient on scheduled Zyprexa 2.5 mg p.o. daily with the Abilify, not Seroquel Date of Service June 07, 2024 Assessment & Plan (1) Acute drug-induced confusion: (2) Aphasia due to recent cerebrovascular accident (CVA): (3) Acute kidney injury superimposed on CKD: (4) Gross hematuria: Plan This is an 84-year-old male with PMH of DM type II, diabetic polyneuropathy, alcohol use, arthritis, gout, HTN, GERD, Anderson's esophagus, history of diverticulitis, CKD stage III and recent acute ischemic left MCA stroke who presented to the ED via EMS from [facility] on 05/18/2024 secondary to increased lethargy. Acute Drug-Induced Confusion, Delirium Severe Expressive Aphasia & Cognitive Changes 2/2 Recent CVA: Pertinent recent hospital course: Patient was recently admitted to [facility] on 05/08/2024 with acute onset of right- sided weakness and was ultimately found to have an acute CVA due to left MCA M3 branch occlusion, received TNK at that time. Had worsening expressive aphasia, new right-sided facial drooping and right hemiparesis on 05/09, repeat CTA revealed possible residual thrombus in the M2 segment therefore the patient was transferred to [facility]. [place] [facility] showed slowed perfusion in the left hemisphere. DSA was performed and no LVO was found, but LICA stent was placed. MRI brain showed multiple small acute infarcts in the left cerebral hemisphere, the largest in the parietal lobe. These are in the middle anterior cerebral artery distribution. Small petechial hemorrhage in the left postcentral gyrus. TTE showing small PFO, unlikely contributory. Clinical course was complicated by hyperactive delirium which required Precedex which was eventually transitioned to scheduled Seroquel. LTM EEG showed slowing but no epileptiform activity. Initially required NG tube due to poor oral tolerance but with resolution of his delirium he began eating PO. He was evaluated by speech therapy at [facility] who recommended soft & bite-sized solids with thin liquids. Was then discharged ton [facility]. While there, had Seroquel dose increased due to agitation (75mg HS) and presented to [facility] on 05/[address] from 05/18/2024 showed subacute infarcts similar in distribution to areas of infarct seen on brain MRI done 05/10/24 at [facility] per [facility] records. Repeat head CT done 05/30/2024 without acute change, shows evolving changes of recent CVA but decreasing in size. Per psych recommendation on 06/01, trialed a less sedating antipsychotic such as Abilify 2.5mg daily -> titrated up to 5mg BID Seroquel dc'd Scheduled Zyprexa added 2.5mg bid Seems to be tolerating current medication regimen of Abilify 5mg BID, Seroquel 2.5mg BID well, with periods of alertness, able to finish meals and have simple conversations No IM Zyprexa needed since 06/04 Pt apparently needed 1:1 overnight Patient has been working with PT/OT intermittently --> Recommending return to [facility] for rehab once medically stable. Continue DAPT and statin for recent CVA. MICHAEL on CKD Stage III - resolved Baseline Cr ~1.4-1.7 per chart review. Cr was previously elevated at 1.85 on admission, trended up to 2.57 on 05/22/2024 Cr now at baseline, resuming losartan Continue to hold chlorthalidone Follows with [facility] as an outpatient (Dr. Mackey) Continue to monitor renal function and avoid nephrotoxic medications when able. Gross Hematuria - resolved HTN His antihypertensives were adjusted at [facility] and at the time of discharge he was on the following: olmesartan 20mg daily, chlorthalidone 25mg daily and hydralazine 10 mg BID Resumed losartan Continue holding chlorthalidone and hydralazine for now as pt has remained normotensive Other Chronic Medical Conditions: * Hypomagnesemia - Mag 1.6 today, will replete via IV as able with patient's agitation * DM Type II - Chronic, stable. Hgb A1c was 7.2 on 05/09/2024. SSI on board, BSG remains stable. * Gout/GERD/Iron Deficiency - Can resume medications for these specific conditions when able. Can also resume home latanoprost eye drops. DVT Prophylaxis: SQ Heparin Code Status: DNR/DNI PCP: Dirk Disposition: PT/OT recommending return to [facility], he apparently needed a 1:1 overnight, will continue to monitor and coordinate with CM. Patient seen in collaboration with Dr. Hinojosa. Please see addendum. I spent a total of 43 minutes coordinating, documenting, and providing care for this patient excluding time spent in the performance of separately billed services. This included personally reviewing all current laboratories and imaging studies, medical reconciliation, outpatient chart review and discussion with specialists. Admission and Anticipated Discharge Date Admission Date: May 20, 2024 Subjective Pt endorses no concerns and denies pain. Discussed with RN Ludwig who states pt has been stable and more calm per his report. Nursing assist at bedside who is assisting with breakfast states he has been more calm as well. ROS unobtainable given cognition. Review of Systems Review of Systems: All systems reviewed & are unremarkable except as noted in HPI & below Physical Exam 2 Physical Exam: Gen: Tall, Thin, M, lying in bed, alert and oriented, severe expressive aphasia HEENT: Normocephalic, atraumatic, conjunctivae moist, sclerae anicteric, mucous membranes moist. Lung: Clear to Auscultation bilaterally, no wheezes/rales/rhonchi Heart: Regular rate, regular rhythm, no murmurs, rubs, or gallops Abdomen: Soft, NT, ND +BS x 4 Extremities: No edema, RHP Skin: Warm, no rash, negative turgor. Results & Data Results & Data Vital Signs (Past 12 Hours) Vital Signs Temp Pulse Resp BP Pulse Ox O2 Del Method 06/07/24 07:41 36.5 C 85 20 136/78 96 Room Air Medications Administered Current Inpatient Medications Acetaminophen (Acetaminophen 325 Mg Tab) 650 mg PO Q6H CRISTIAN Stop: 06/20/24 15:59 Last Admin: 06/07/24 10:15 Dose: 650 mg Allopurinol (Allopurinol 100 Mg Tab) 100 mg PO DAILY CRISTIAN Stop: 06/18/24 08:59 Last Admin: 06/07/24 09:23 Dose: 100 mg Aripiprazole (Aripiprazole 5 Mg Tab) 5 mg PO BID CRISTIAN Stop: 07/04/24 20:59 Last Admin: 06/07/24 09:23 Dose: 5 mg Aspirin (Aspirin 81 Mg Ectab) 81 mg PO DAILY CRISTIAN Stop: 06/18/24 08:59 Last Admin: 06/07/24 09:23 Dose: 81 mg Atorvastatin Calcium (Atorvastatin 40 Mg Tab) 40 mg PO PM CRISTIAN Stop: 06/17/24 20:59 Last Admin: 06/06/24 21:35 Dose: 40 mg Calamine/Pramoxine (Calamine/Pramoxine Lotion 180 Appln/180 Ml Btl) 1 appln EXT BID PRN PRN Reason: for rash at back Stop: 06/19/24 11:18 Last Admin: 05/23/24 20:35 Dose: 1 appln Chlorhexidine Gluconate (Chlorhexidine Gluconate 0.12% 480 Ml) 15 ml MT BID CRISTIAN Stop: 06/17/24 20:59 Last Admin: 06/07/24 09:21 Dose: 15 ml Clopidogrel Bisulfate (Clopidogrel Bisulfate 75 Mg Tab) 75 mg PO DAILY CRISTIAN Stop: 06/18/24 08:59 Last Admin: 06/07/24 09:23 Dose: 75 mg Cyanocobalamin (Cyanocobalamin (B-12) 500 Mcg Tablet) 1,000 mcg PO QPM CRISTIAN Stop: 06/17/24 20:59 Last Admin: 06/06/24 21:35 Dose: 1,000 mcg Dextrose (Dextrose 50% 50 Ml Syringe) 25 - 50 ml IV UD PRN; Protocol PRN Reason: Hypoglycemia Protocol Stop: 06/17/24 15:57 Ferrous Sulfate (Ferrous Sulfate 325 Mg/7.4 Ml Udp) 325 mg PO QPM CRISTIAN Stop: 07/04/24 20:59 Last Admin: 06/06/24 21:34 Dose: Not Given Glucagon (Glucagon For Inj 1 Mg Vial) 1 mg SQ UD PRN; Protocol PRN Reason: Hypoglycemia Protocol Stop: 06/17/24 15:57 Glucose (Glucose 40% Gel 15 Gm Tube) 15 - 30 gm PO UD PRN; Protocol PRN Reason: Hypoglycemia Protocol Stop: 06/17/24 15:57 Glucose (Glucose 10 Tab/Tube) 4 - 8 tab PO UD PRN; Protocol PRN Reason: Hypoglycemia Protocol Stop: 06/17/24 15:57 Heparin Sodium (Porcine) (Heparin Sod 5,000 Unit/0.5 Ml Vial) 5,000 units SQ Q12 CRISTIAN Stop: 06/19/24 20:59 Last Admin: 06/07/24 09:42 Dose: 5,000 units Hydralazine HCl (Hydralazine 10 Mg Tab) 10 mg PO BID CRISTIAN Stop: 06/17/24 20:59 Last Admin: 05/31/24 08:47 Dose: 10 mg Insulin Aspart (Insulin Aspart Per Unit Charge) 0 units SC ACHS CRISTIAN Stop: 06/17/24 16:29 Last Admin: 06/07/24 09:51 Dose: 5 units Lactobacillus Acidophilus (Advanced Probiotic 625 Mg Capsule) 1,250 mg PO DAILY CRISTIAN Stop: 06/22/24 08:59 Last Admin: 06/07/24 09:23 Dose: 1,250 mg Latanoprost (Latanoprost 0.005% Op Soln 2.5 Ml Btl) 1 drops OPB QPM CRISTIAN Stop: 06/17/24 20:59 Last Admin: 06/06/24 21:36 Dose: 1 drops Losartan Potassium (Losartan Potassium 50 Mg Tab) 50 mg PO DAILY CRISTIAN Stop: 06/20/24 08:59 Last Admin: 06/07/24 09:23 Dose: 50 mg Melatonin (Melatonin 3 Mg Tab) 9 mg PO HS CRISTIAN Stop: 07/04/24 20:59 Last Admin: 06/06/24 21:34 Dose: 9 mg Miscellaneous (Carbohydrates For Hypoglycemia ) 15 - 30 gm PO UD PRN PRN Reason: Hypoglycemia Protocol Stop: 06/17/24 15:57 Olanzapine (Olanzapine 10 Mg/2.1 Ml Sdv) 5 mg IM Q8H PRN PRN Reason: Agitation Stop: 07/04/24 12:29 Olanzapine (Olanzapine 2.5 Mg Tab) 2.5 mg PO BID CRISTIAN Stop: 07/05/24 20:59 Last Admin: 06/07/24 09:22 Dose: 2.5 mg Pantoprazole Sodium (Pantoprazole 40 Mg Tab) 40 mg PO DAILY CRISTIAN Stop: 06/18/24 08:59 Last Admin: 06/07/24 09:22 Dose: 40 mg Sennosides (Senna 8.6 Mg Tab) 8.6 mg PO BID CRISTIAN Stop: 06/17/24 20:59 Last Admin: 06/07/24 09:25 Dose: 8.6 mg Vitamin D (Cholecalciferol 10 Mcg (400 Units) Tab) 20 mcg PO DAILY CRISTIAN Stop: 06/18/24 08:59 Last Admin: 06/07/24 09:21 Dose: 20 mcg
--- NOTE | 2024-06-08 12:05 | Hospitalist Progress Note ---
Date of Service June 08, 2024 Assessment & Plan (1) Acute drug-induced confusion: (2) Aphasia due to recent cerebrovascular accident (CVA): (3) Acute kidney injury superimposed on CKD: (4) Gross hematuria: Plan This is an 84-year-old male with PMH of DM type II, diabetic polyneuropathy, alcohol use, arthritis, gout, HTN, GERD, Anderson's esophagus, history of diverticulitis, CKD stage III and recent acute ischemic left MCA stroke who presented to the ED via EMS from [facility] on 05/18/2024 secondary to increased lethargy. Acute Drug-Induced Confusion, Delirium Severe Expressive Aphasia & Cognitive Changes 2/2 Recent CVA: Pertinent recent hospital course: Patient was recently admitted to [facility] on 05/08/2024 with acute onset of right- sided weakness and was ultimately found to have an acute CVA due to left MCA M3 branch occlusion, received TNK at that time. Had worsening expressive aphasia, new right-sided facial drooping and right hemiparesis on 05/09, repeat CTA revealed possible residual thrombus in the M2 segment therefore the patient was transferred to [facility] [place]. At [facility], CTP showed slowed perfusion in the left hemisphere. DSA was performed and no LVO was found, but LICA stent was placed. MRI brain showed multiple small acute infarcts in the left cerebral hemisphere, the largest in the parietal lobe. These are in the middle anterior cerebral artery distribution. Small petechial hemorrhage in the left postcentral gyrus. TTE showing small PFO, unlikely contributory. Clinical course was complicated by hyperactive delirium which required Precedex which was eventually transitioned to scheduled Seroquel. LTM EEG showed slowing but no epileptiform activity. Initially required NG tube due to poor oral tolerance but with resolution of his delirium he began eating PO. He was evaluated by speech therapy at [facility] who recommended soft & bite-sized solids with thin liquids. Was then discharged ton [facility]. While there, had Seroquel dose increased due to agitation (75mg HS) and presented to [facility] on 05/[address] from 05/18/2024 showed subacute infarcts similar in distribution to areas of infarct seen on brain MRI done 05/10/24 at [facility] per Epic records. Repeat head CT done 05/30/2024 without acute change, shows evolving changes of recent CVA but decreasing in size. Per psych recommendation on 06/01, trialed a less sedating antipsychotic such as Abilify 2.5mg daily -> titrated up to 5mg BID Seroquel dc'd Scheduled Zyprexa added 2.5mg bid Seems to be tolerating current medication regimen of Abilify 5mg BID, Seroquel 2.5mg BID well, with periods of alertness, able to finish meals and have simple conversations No IM Zyprexa needed since 06/04 Continue DAPT and statin for recent CVA. Patient has been working with PT/OT intermittently --> I feel pt is at his new medical baseline and I do not feel he will be able to tolerate the length of therapy that [facility] offers. I feel he would be best suited at [facility] where he will likely need termite inspector placement after rehab stay. MICHAEL on CKD Stage III - resolved Baseline Cr ~1.4-1.7 per chart review. Cr was previously elevated at 1.85 on admission, trended up to 2.57 on 05/22/2024 Cr now at baseline, resuming losartan Continue to hold chlorthalidone Follows with [facility] as an outpatient (Dr. Mackey) Continue to monitor renal function and avoid nephrotoxic medications when able. Gross Hematuria - resolved HTN His antihypertensives were adjusted at [facility] [place] and at the time of discharge he was on the following: olmesartan 20mg daily, chlorthalidone 25mg daily and hydralazine 10 mg BID Resumed losartan Continue holding chlorthalidone and hydralazine for now as pt has remained normotensive and these can likely be discontinued at discharge DM Type II - Chronic, stable. Hgb A1c was 7.2 on 05/09/2024. SSI on board, BSG remains stable. DVT Prophylaxis: SQ Heparin Code Status: DNR/DNI PCP: Dirk Disposition: PT/OT recommending rehab, I feel pt will be best suited at [facility] as he will not be able to tolerate the therapy at [facility] I spent a total of 40 minutes coordinating, documenting, and providing care for this patient excluding time spent in the performance of separately billed services. This included personally reviewing all current laboratories and imaging studies, medical reconciliation, outpatient chart review and discussion with specialists. Admission and Anticipated Discharge Date Admission Date: May 20, 2024 Subjective Pt seen with nurse at bedside. He remains pleasant without any agitated behaviors. He does continue to have difficulty following commands and will occasionally throw his legs over the rales. Aide is reporting good oral intake with meals with assistance. Review of Systems Review of Systems: Unobtainable due to cognitive status Physical Exam Physical Exam: Gen: Tall, Thin, M, lying in bed, alert and oriented, severe expressive aphasia HEENT: Normocephalic, atraumatic, conjunctivae moist, sclerae anicteric, mucous membranes moist. Lung: Clear to Auscultation bilaterally, no wheezes/rales/rhonchi Heart: Regular rate, regular rhythm, no murmurs, rubs, or gallops Abdomen: Soft, NT, ND +BS x 4 Extremities: No edema, RHP Skin: Warm, no rash, negative turgor. Results & Data Results & Data Vital Signs (Past 12 Hours) Vital Signs Temp Pulse Resp BP Pulse Ox O2 Del Method 06/08/24 07:01 36.6 C 89 16 123/64 92 Room Air Medications Administered Current Inpatient Medications Acetaminophen (Acetaminophen 325 Mg Tab) 650 mg PO Q6H CRISTIAN Stop: 06/20/24 15:59 Last Admin: 06/08/24 08:30 Dose: 650 mg Allopurinol (Allopurinol 100 Mg Tab) 100 mg PO DAILY CRISTIAN Stop: 06/18/24 08:59 Last Admin: 06/08/24 08:24 Dose: 100 mg Aripiprazole (Aripiprazole 5 Mg Tab) 5 mg PO BID CRISTIAN Stop: 07/04/24 20:59 Last Admin: 06/08/24 08:24 Dose: 5 mg Aspirin (Aspirin 81 Mg Ectab) 81 mg PO DAILY CRISTIAN Stop: 06/18/24 08:59 Last Admin: 06/08/24 08:24 Dose: 81 mg Atorvastatin Calcium (Atorvastatin 40 Mg Tab) 40 mg PO PM CRISTIAN Stop: 06/17/24 20:59 Last Admin: 06/07/24 20:07 Dose: 40 mg Calamine/Pramoxine (Calamine/Pramoxine Lotion 180 Appln/180 Ml Btl) 1 appln EXT BID PRN PRN Reason: for rash at back Stop: 06/19/24 11:18 Last Admin: 05/23/24 20:35 Dose: 1 appln Chlorhexidine Gluconate (Chlorhexidine Gluconate 0.12% 480 Ml) 15 ml MT BID CRISTIAN Stop: 06/17/24 20:59 Last Admin: 06/08/24 08:25 Dose: 15 ml Clopidogrel Bisulfate (Clopidogrel Bisulfate 75 Mg Tab) 75 mg PO DAILY CRISTIAN Stop: 06/18/24 08:59 Last Admin: 06/08/24 08:24 Dose: 75 mg Cyanocobalamin (Cyanocobalamin (B-12) 500 Mcg Tablet) 1,000 mcg PO QPM CRISTIAN Stop: 06/17/24 20:59 Last Admin: 06/07/24 20:07 Dose: 1,000 mcg Dextrose (Dextrose 50% 50 Ml Syringe) 25 - 50 ml IV UD PRN; Protocol PRN Reason: Hypoglycemia Protocol Stop: 06/17/24 15:57 Ferrous Sulfate (Ferrous Sulfate 325 Mg/7.4 Ml Udp) 325 mg PO QPM CRISTIAN Stop: 07/04/24 20:59 Last Admin: 06/07/24 20:08 Dose: 325 mg Glucagon (Glucagon For Inj 1 Mg Vial) 1 mg SQ UD PRN; Protocol PRN Reason: Hypoglycemia Protocol Stop: 06/17/24 15:57 Glucose (Glucose 40% Gel 15 Gm Tube) 15 - 30 gm PO UD PRN; Protocol PRN Reason: Hypoglycemia Protocol Stop: 06/17/24 15:57 Glucose (Glucose 10 Tab/Tube) 4 - 8 tab PO UD PRN; Protocol PRN Reason: Hypoglycemia Protocol Stop: 06/17/24 15:57 Heparin Sodium (Porcine) (Heparin Sod 5,000 Unit/0.5 Ml Vial) 5,000 units SQ Q12 CRISTIAN Stop: 06/19/24 20:59 Last Admin: 06/08/24 08:30 Dose: 5,000 units Hydralazine HCl (Hydralazine 10 Mg Tab) 10 mg PO BID CRISTIAN Stop: 06/17/24 20:59 Last Admin: 05/31/24 08:47 Dose: 10 mg Insulin Aspart (Insulin Aspart Per Unit Charge) 0 units SC ACHS CRISTIAN Stop: 06/17/24 16:29 Last Admin: 06/08/24 08:29 Dose: 3 units Lactobacillus Acidophilus (Advanced Probiotic 625 Mg Capsule) 1,250 mg PO DAILY CRISTIAN Stop: 06/22/24 08:59 Last Admin: 06/08/24 08:24 Dose: 1,250 mg Latanoprost (Latanoprost 0.005% Op Soln 2.5 Ml Btl) 1 drops OPB QPM CRISTIAN Stop: 06/17/24 20:59 Last Admin: 06/07/24 20:06 Dose: 1 drops Losartan Potassium (Losartan Potassium 50 Mg Tab) 50 mg PO DAILY CRISTIAN Stop: 06/20/24 08:59 Last Admin: 06/08/24 08:24 Dose: 50 mg Melatonin (Melatonin 3 Mg Tab) 9 mg PO HS CRISTIAN Stop: 07/04/24 20:59 Last Admin: 06/07/24 20:06 Dose: 9 mg Miscellaneous (Carbohydrates For Hypoglycemia ) 15 - 30 gm PO UD PRN PRN Reason: Hypoglycemia Protocol Stop: 06/17/24 15:57 Olanzapine (Olanzapine 10 Mg/2.1 Ml Sdv) 5 mg IM Q8H PRN PRN Reason: Agitation Stop: 07/04/24 12:29 Olanzapine (Olanzapine 2.5 Mg Tab) 2.5 mg PO BID CRISTIAN Stop: 07/05/24 20:59 Last Admin: 06/08/24 08:24 Dose: 2.5 mg Pantoprazole Sodium (Pantoprazole 40 Mg Tab) 40 mg PO DAILY CRISTIAN Stop: 06/18/24 08:59 Last Admin: 06/08/24 08:24 Dose: 40 mg Sennosides (Senna 8.6 Mg Tab) 8.6 mg PO BID CRISTIAN Stop: 06/17/24 20:59 Last Admin: 06/08/24 08:30 Dose: 8.6 mg Vitamin D (Cholecalciferol 10 Mcg (400 Units) Tab) 20 mcg PO DAILY CRISTIAN Stop: 06/18/24 08:59 Last Admin: 06/08/24 08:32 Dose: 20 mcg
[2024-06-08 13:01] LABS: BUN Creatinine Ratio 30.2 (10-20); Calcium 9.7 mg/dl (8.6-10.3)
--- NOTE | 2024-06-08 16:40 | Communication Note ---
Date of Service: June 08, 2024 Patient's daughter when the is arrived from [place] and is at the bedside. Met with her and additional family members at bedside. When he was not aware of how difficult his behaviors were last week. Explained how during the day his cognitive abilities wax and wane. Did tell her that here at this hour would expect him maybe to get a little bit more confused with "sundowning" behaviors. She understands that his recovery will take timeframe of months and that they would need to prepare for more prolonged length of care. Course this will not be exclusively in the hospital but hopefully at some rehab facility whether skilled rehab or acute inpatient rehab. Answered her questions to her satisfaction.
--- NOTE | 2024-06-09 11:21 | Hospitalist Progress Note ---
Date of Service June 09, 2024 Assessment & Plan (1) Acute drug-induced confusion: (2) Aphasia due to recent cerebrovascular accident (CVA): (3) Acute kidney injury superimposed on CKD: (4) Gross hematuria: Plan This is an 84-year-old male with PMH of DM type II, diabetic polyneuropathy, alcohol use, arthritis, gout, HTN, GERD, Anderson's esophagus, history of diverticulitis, CKD stage III and recent acute ischemic left MCA stroke who presented to the ED via EMS from [facility] on 05/18/2024 secondary to increased lethargy. Acute Drug-Induced Confusion, Delirium Severe Expressive Aphasia & Cognitive Changes 2/2 Recent CVA: Pertinent recent hospital course: Patient was recently admitted to [facility] on 05/08/2024 with acute onset of right- sided weakness and was ultimately found to have an acute CVA due to left MCA M3 branch occlusion, received TNK at that time. Had worsening expressive aphasia, new right-sided facial drooping and right hemiparesis on 05/09, repeat CTA revealed possible residual thrombus in the M2 segment therefore the patient was transferred to [facility]. [place] [facility] [place] showed slowed perfusion in the left hemisphere. DSA was performed and no LVO was found, but LICA stent was placed. MRI brain showed multiple small acute infarcts in the left cerebral hemisphere, the largest in the parietal lobe. These are in the middle anterior cerebral artery distribution. Small petechial hemorrhage in the left postcentral gyrus. TTE showing small PFO, unlikely contributory. Clinical course was complicated by hyperactive delirium which required Precedex which was eventually transitioned to scheduled Seroquel. LTM EEG showed slowing but no epileptiform activity. Initially required NG tube due to poor oral tolerance but with resolution of his delirium he began eating PO. He was evaluated by speech therapy at [facility] who recommended soft & bite-sized solids with thin liquids. Was then discharged ton [facility]. While there, had Seroquel dose increased due to agitation (75mg HS) and presented to [facility] on 05/[address] from 05/18/2024 showed subacute infarcts similar in distribution to areas of infarct seen on brain MRI done 05/10/24 at [facility] per Epic records. Repeat head CT done 05/30/2024 without acute change, shows evolving changes of recent CVA but decreasing in size. Per psych recommendation on 06/01, trialed a less sedating antipsychotic such as Abilify 2.5mg daily -> titrated up to 5mg BID Seroquel dc'd Scheduled Zyprexa added 2.5mg bid Seems to be tolerating current medication regimen of Abilify 5mg BID, Seroquel 2.5mg BID well, with periods of alertness, able to finish meals and have simple conversations No IM Zyprexa needed since 06/04 Continue DAPT and statin for recent CVA. Patient has been working with PT/OT intermittently --> I feel pt is at his new medical baseline and I do not feel he will be able to tolerate the length of therapy that [facility] offers. I feel he would be best suited at [facility] where he will likely need long wall mining machine tender placement after rehab stay. MICHAEL on CKD Stage III - resolved Baseline Cr ~1.4-1.7 per chart review. Cr was previously elevated at 1.85 on admission, trended up to 2.57 on 05/22/2024 Cr now at baseline, resuming losartan Continue to hold chlorthalidone Follows with [facility] as an outpatient (Dr. Mackey) Continue to monitor renal function and avoid nephrotoxic medications when able. Gross Hematuria - resolved HTN His antihypertensives were adjusted at [facility] and at the time of discharge he was on the following: olmesartan 20mg daily, chlorthalidone 25mg daily and hydralazine 10 mg BID Resumed losartan Continue holding chlorthalidone and hydralazine for now as pt has remained normotensive and these can likely be discontinued at discharge DM Type II - Chronic, stable. Hgb A1c was 7.2 on 05/09/2024. SSI on board, BSG remains stable. DVT Prophylaxis: SQ Heparin Code Status: DNR/DNI PCP: Dirk Disposition: PT/OT recommending rehab, I feel pt will be best suited at [facility] as he will not be able to tolerate the therapy at [facility], medically stable when facility can accept I spent a total of 30 minutes coordinating, documenting, and providing care for this patient excluding time spent in the performance of separately billed servic es. This included personally reviewing all current laboratories and imaging studies, medical reconciliation, outpatient chart review and discussion with specialists. Discussed with Marcia TRIVEDI. She wishes to be the only person contacted regarding her fathers care. We discussed his overall condition and how it is felt that he is stable from a medical perspective. His behaviors remain stable on his current regimen and at this point It is prudent to start looking for rehab placement. We discussed how Mg is not an [facility] candidate given the therapy requirement and he would be better suited for SNF. Marcia believes in God and is very hopeful for a Miracle that her father could be rehabbed and returned home, but she also understands this is not a likely reality. She initially contemplated having his transported to [place] for rehab, but she again understands that this is not feasible given his condition. It is strongly recommended that patient be considered for SNF rehab and likely eventual long wall mining machine tender placement. She understands this. She wishes for referrals to be placed to [facility]. She will continue to research other facilities. This was also relayed to MERRITT Porter. Admission and Anticipated Discharge Date Admission Date: May 20, 2024 Supervising Physician Co-Signing Physician Notes Patient seen and examined Was drowsy but arousable Did not want to be disturbed, stated to be left alone I spent a total of 25 minutes coordinating, documenting and providing care for this patient excluding time spent in performance of separately billed services Subjective Pt drowsy this morning. He is arousable to tactile stimuli, but falls back asleep. ROS unobtainable. Review of Systems Review of Systems: Unobtainable due to cognitive status Physical Exam Physical Exam: Gen: Tall, Thin, M, lying in bed, drowsy, arouses to tactile stimuli severe expressive aphasia HEENT: Normocephalic, atraumatic, conjunctivae moist, sclerae anicteric, mucous membranes dry. Lung: Clear to Auscultation bilaterally, no wheezes/rales/rhonchi Heart: Regular rate, regular rhythm, no murmurs, rubs, or gallops Abdomen: Soft, NT, ND +BS x 4 Extremities: No edema, RHP Skin: Warm, no rash, negative turgor. Results & Data Results & Data Vital Signs (Past 12 Hours) Vital Signs Temp Pulse Resp BP Pulse Ox O2 Del Method 06/09/24 09:36 70 109/68 06/09/24 07:01 36.9 C 70 20 114/67 95 Room Air Medications Administered Current Inpatient Medications Acetaminophen (Acetaminophen 325 Mg Tab) 650 mg PO Q6H CRISTIAN Stop: 06/20/24 15:59 Last Admin: 06/09/24 09:24 Dose: 650 mg Allopurinol (Allopurinol 100 Mg Tab) 100 mg PO DAILY CRISTIAN Stop: 06/18/24 08:59 Last Admin: 06/09/24 09:23 Dose: 100 mg Aripiprazole (Aripiprazole 5 Mg Tab) 5 mg PO BID CRISTIAN Stop: 07/04/24 20:59 Last Admin: 06/09/24 09:23 Dose: 5 mg Aspirin (Aspirin 81 Mg Ectab) 81 mg PO DAILY CRISTIAN Stop: 06/18/24 08:59 Last Admin: 06/09/24 09:23 Dose: 81 mg Atorvastatin Calcium (Atorvastatin 40 Mg Tab) 40 mg PO PM CRISTIAN Stop: 06/17/24 20:59 Last Admin: 06/08/24 19:56 Dose: 40 mg Calamine/Pramoxine (Calamine/Pramoxine Lotion 180 Appln/180 Ml Btl) 1 appln EXT BID PRN PRN Reason: for rash at back Stop: 06/19/24 11:18 Last Admin: 05/23/24 20:35 Dose: 1 appln Chlorhexidine Gluconate (Chlorhexidine Gluconate 0.12% 480 Ml) 15 ml MT BID CRISTIAN Stop: 06/17/24 20:59 Last Admin: 06/09/24 09:46 Dose: Not Given Clopidogrel Bisulfate (Clopidogrel Bisulfate 75 Mg Tab) 75 mg PO DAILY CRISTIAN Stop: 06/18/24 08:59 Last Admin: 06/09/24 09:24 Dose: 75 mg Cyanocobalamin (Cyanocobalamin (B-12) 500 Mcg Tablet) 1,000 mcg PO QPM CRISTIAN Stop: 06/17/24 20:59 Last Admin: 06/08/24 19:55 Dose: 1,000 mcg Dextrose (Dextrose 50% 50 Ml Syringe) 25 - 50 ml IV UD PRN; Protocol PRN Reason: Hypoglycemia Protocol Stop: 06/17/24 15:57 Ferrous Sulfate (Ferrous Sulfate 325 Mg/7.4 Ml Udp) 325 mg PO QPM CRISTIAN Stop: 07/04/24 20:59 Last Admin: 06/08/24 19:56 Dose: 325 mg Glucagon (Glucagon For Inj 1 Mg Vial) 1 mg SQ UD PRN; Protocol PRN Reason: Hypoglycemia Protocol Stop: 06/17/24 15:57 Glucose (Glucose 40% Gel 15 Gm Tube) 15 - 30 gm PO UD PRN; Protocol PRN Reason: Hypoglycemia Protocol Stop: 06/17/24 15:57 Glucose (Glucose 10 Tab/Tube) 4 - 8 tab PO UD PRN; Protocol PRN Reason: Hypoglycemia Protocol Stop: 06/17/24 15:57 Heparin Sodium (Porcine) (Heparin Sod 5,000 Unit/0.5 Ml Vial) 5,000 units SQ Q12 CRISTIAN Stop: 06/19/24 20:59 Last Admin: 06/09/24 09:24 Dose: 5,000 units Hydralazine HCl (Hydralazine 10 Mg Tab) 10 mg PO BID CRISTIAN Stop: 06/17/24 20:59 Last Admin: 05/31/24 08:47 Dose: 10 mg Insulin Aspart (Insulin Aspart Per Unit Charge) 0 units SC ACHS CRISTIAN Stop: 06/17/24 16:29 Last Admin: 06/09/24 09:14 Dose: Not Given Lactobacillus Acidophilus (Advanced Probiotic 625 Mg Capsule) 1,250 mg PO DAILY CRISTIAN Stop: 06/22/24 08:59 Last Admin: 06/09/24 09:24 Dose: 1,250 mg Latanoprost (Latanoprost 0.005% Op Soln 2.5 Ml Btl) 1 drops OPB QPM CRISTIAN Stop: 06/17/24 20:59 Last Admin: 06/08/24 19:57 Dose: 1 drops Losartan Potassium (Losartan Potassium 50 Mg Tab) 50 mg PO DAILY CRISTIAN Stop: 06/20/24 08:59 Last Admin: 06/09/24 09:36 Dose: 50 mg Melatonin (Melatonin 3 Mg Tab) 9 mg PO HS CRISTIAN Stop: 07/04/24 20:59 Last Admin: 06/08/24 19:54 Dose: 9 mg Miscellaneous (Carbohydrates For Hypoglycemia ) 15 - 30 gm PO UD PRN PRN Reason: Hypoglycemia Protocol Stop: 06/17/24 15:57 Olanzapine (Olanzapine 10 Mg/2.1 Ml Sdv) 5 mg IM Q8H PRN PRN Reason: Agitation Stop: 07/04/24 12:29 Olanzapine (Olanzapine 2.5 Mg Tab) 2.5 mg PO BID CRISTIAN Stop: 07/05/24 20:59 Last Admin: 06/09/24 09:24 Dose: 2.5 mg Pantoprazole Sodium (Pantoprazole 40 Mg Tab) 40 mg PO DAILY CRISTIAN Stop: 06/18/24 08:59 Last Admin: 06/09/24 09:24 Dose: 40 mg Sennosides (Senna 8.6 Mg Tab) 8.6 mg PO BID CRISTIAN Stop: 06/17/24 20:59 Last Admin: 06/09/24 09:24 Dose: 8.6 mg Vitamin D (Cholecalciferol 10 Mcg (400 Units) Tab) 20 mcg PO DAILY CRISTIAN Stop: 06/18/24 08:59 Last Admin: 06/09/24 09:24 Dose: 20 mcg
[2024-06-09] MEDS: ACETAMINOPHEN 1,000 MG/100 ML VIAL IV STA (17:14)
[2024-06-10] MEDS: ACETAMINOPHEN 1,000 MG/100 ML VIAL IV SCH (02:20)
[2024-06-10] MEDS: ACETAMINOPHEN 1000 MG/100 ML IV IV ONE (02:26)
[2024-06-10] MEDS: SODIUM CHLORIDE 0.9% 1,000 ML IV ONE (06:42)
[2024-06-10 08:03] LABS: Basophils # (auto) 0.08 K/uL (0.00-0.20); Basophils % (auto) 1.2 %; Eosinophils # (auto) 0.02 K/uL (0.00-0.50); Eosinophils % (auto) 0.3 %; Hematocrit (blood only) 37.8 % (42.0-52.0); Hemoglobin 12.6 g/dl (14.0-18.0); Immature Granulocytes # (auto) 0.02 K/uL (0.01-0.20); Immature Granulocytes % (auto) 0.3 %; Lymphocytes # (auto) 1.62 K/uL (1.20-3.40); Lymphocytes % (auto) 23.6 %; Mean Corpuscular Hemoglobin 29.4 pg (25.0-34.0); Mean Corpuscular Hgb Conc 33.3 g/dL (32.0-36.0); Mean Corpuscular Volume 88.3 fL (80.0-100.0); Mean Platelet Volume 10.2 fL (9.4-12.4); Monocytes # (auto) 0.61 K/uL (0.11-0.59); Monocytes % (auto) 8.9 %; Neutrophils # (auto) 4.52 K/uL (1.40-6.50); Neutrophils % (auto) 65.7 %; Platelet Count 239 K/uL (130-400); RDW Coefficient of Variation 14.4 % (11.5-14.5); RDW Standard Deviation 46.3 fL (36.4-46.3); Red Blood Count 4.28 M/uL (4.70-6.10); White Blood Count 6.87 K/ul (4.8-10.8)
[2024-06-10 08:28] LABS: Calcium 9.3 mg/dl (8.6-10.3); Potassium 4.1 mmol/L (3.5-5.1)
[2024-06-10 08:33] LABS: Creatinine Clr Calc Pharmacy 46.7 ml/min
--- NOTE | 2024-06-10 11:24 | Hospitalist Progress Note ---
Date of Service June 10, 2024 Assessment & Plan (1) Acute drug-induced confusion: (2) Aphasia due to recent cerebrovascular accident (CVA): (3) Acute kidney injury superimposed on CKD: (4) Gross hematuria: Plan This is an 84-year-old male with PMH of DM type II, diabetic polyneuropathy, alcohol use, arthritis, gout, HTN, GERD, Anderson's esophagus, history of diverticulitis, CKD stage III and recent acute ischemic left MCA stroke who presented to the ED via EMS from [facility] on 05/18/2024 secondary to increased lethargy. Acute Drug-Induced Confusion, Delirium Severe Expressive Aphasia & Cognitive Changes 2/2 Recent CVA: Pertinent recent hospital course: Patient was recently admitted to [facility] on 05/08/2024 with acute onset of right- sided weakness and was ultimately found to have an acute CVA due to left MCA M3 branch occlusion, received TNK at that time. Had worsening expressive aphasia, new right-sided facial drooping and right hemiparesis on 05/09, repeat CTA revealed possible residual thrombus in the M2 segment therefore the patient was transferred to [facility]. At [facility], CTP showed slowed perfusion in the left hemisphere. DSA was performed and no LVO was found, but LICA stent was placed. MRI brain showed multiple small acute infarcts in the left cerebral hemisphere, the largest in the parietal lobe. These are in the middle anterior cerebral artery distribution. Small petechial hemorrhage in the left postcentral gyrus. TTE showing small PFO, unlikely contributory. Clinical course was complicated by hyperactive delirium which required Precedex which was eventually transitioned to scheduled Seroquel. LTM EEG showed slowing but no epileptiform activity. Initially required NG tube due to poor oral tolerance but with resolution of his delirium he began eating PO. He was evaluated by speech therapy at [facility] who recommended soft & bite-sized solids with thin liquids. Was then discharged ton [facility]. While there, had Seroquel dose increased due to agitation (75mg HS) and presented to [facility] on 05/[address] from 05/18/2024 showed subacute infarcts similar in distribution to areas of infarct seen on brain MRI done 05/10/[address] [facility] per Epic records. Repeat head CT done 05/30/2024 without acute change, shows evolving changes of recent CVA but decreasing in size. Per psych recommendation on 06/01, trialed a less sedating antipsychotic such as Abilify 2.5mg daily -> titrated up to 5mg BID Seroquel dc'd Was initially started on scheduled Zyprexa was added 2.5mg bid. Agitation improved significantly on current regimen but more lethargic - continue Abilify 5mg BID, hold Zyprexa for now No IM Zyprexa needed since 06/04 Continue DAPT and statin for recent CVA Patient has been working with PT/OT intermittently --> Feel pt is at his new medical baseline and I do not feel he will be able to tolerate the length of therapy that [facility] offers. I feel he would be best suited at [facility] where he will likely need vermin exterminator placement after rehab stay. MICHAEL on CKD Stage III - resolved Baseline Cr ~1.4-1.7 per chart review. Cr was previously elevated at 1.85 on admission, trended up to 2.57 on 05/22/2024 Cr now at baseline, resuming losartan Continue to hold chlorthalidone Follows with [facility] as an outpatient (Dr. Mackey) Continue to monitor renal function and avoid nephrotoxic medications when able. Gross Hematuria - resolved HTN His antihypertensives were adjusted at [facility] and at the time of discharge he was on the following: olmesartan 20mg daily, chlorthalidone 25mg daily and hydralazine 10 mg BID Resumed losartan Continue holding chlorthalidone and hydralazine for now as pt has remained normotensive and these can likely be discontinued at discharge DM Type II - Chronic, stable. Hgb A1c was 7.2 on 05/09/2024. SSI on board, BSG remains stable. DVT Prophylaxis: SQ Heparin Code Status: DNR/DNI PCP: Dirk Disposition: PT/OT recommending rehab, I feel pt will be best suited at [facility] as he will not be able to tolerate the therapy at [facility], medically stable when facility can accept I spent a total of 35 minutes coordinating, documenting, and providing care for this patient excluding time spent in the performance of separately billed services. This included personally reviewing all current laboratories and imaging studies, medical reconciliation, outpatient chart review and discussion with specialists. Discussed with Marcia TRIVEDI. She wishes to be the only person contacted regarding her fathers care. They discussed how Mg is not an [facility] candidate given the therapy requirement and he would be better suited for SNF. Marcia believes in God and is very hopeful for a miracle that her father could be rehabbed and returned home, but she also understands this is not a likely reality. She initially contemplated having his transported to [place] for rehab, but she again understands that this is not feasible given his condition. It is strongly recommended that patient be considered for SNF rehab and likely eventual vermin exterminator placement. CM working on referral Admission and Anticipated Discharge Date Admission Date: May 20, 2024 Supervising Physician Co-Signing Physician Notes Patient seen and examined Drowsy but arousable Hold zyprexa for now I spent a total of 35 minutes coordinating, documenting and providing care for this patient excluding time spent in performance of separately billed services Subjective Patient drowsy this morning. He is arousable to tactile stimuli, but falls back asleep. Nursing does not report an issue overnight. Ate a small amount for breakfast. ROS unobtainable. Review of Systems Review of Systems: Unable to properly obtain secondary to the patient's expressive aphasia. Physical Exam Physical Exam: Gen: WD/WN, NAD, resting in bed comfortably, lethargic but awakens to tactile stimuli, + baseline expressive aphasia HEENT: Normocephalic, atraumatic, conjunctivae moist, sclerae anicteric, mucous membranes moist Lung: Clear to Auscultation bilaterally, no wheezes/rales/rhonchi Heart: Regular rate, regular rhythm Abdomen: Soft, NT, ND +BS x 4 Extremities: + R sided weakness (chronic), no edema Skin: Warm, no rash Results & Data Results & Data Vital Signs (Past 12 Hours) Vital Signs Temp Pulse Resp BP Pulse Ox O2 Del Method 06/10/24 07:15 Room Air 06/10/24 07:05 36.8 C 85 18 149/88 H 95 Room Air Laboratory Results Short CBC 06/10/24 Range/Units 07:32 WBC 6.87 (4.8-10.8) K/ul Hgb 12.6 L (14.0-18.0) g/dl Hct 37.8 L (42.0-52.0) % Plt Count 239 (130-400) K/uL BMP 06/10/24 07:32 Sodium 138 Potassium 4.1 Chloride 110 H Carbon Dioxide 20 L BUN 39 H Creatinine 1.22 Glucose 105 H Calcium 9.[address] 05/18/24 10:59 CT OF THE HEAD WITHOUT CONTRAST CLINICAL HISTORY: Altered mental status. COMPARISON STUDY: MRI of the brain and head CT and CTA of the head May 08, 2024. Head CT May 09, 2024. CT DOSE: 625.8 mGy.cm TECHNIQUE: Helical axial images of the head were obtained without IV contrast. Automated exposure control was utilized for the study. A dose lowering technique was utilized adhering to the principles of ALARA. FINDINGS: No acute intracranial hemorrhage, midline shift or mass effect is present. Ventricular system is unremarkable. Basal cisterns are patent. There are no extra-axial collections. A 5.3 cm hypodense focus with loss of crump-white differentiation within the left parietal lobe is noted. This favors a subacute infarct which has increased in extent since MRI of May 08, 2024. A few additional suspected subacute infarcts within left basal ganglia and left diego radiata are present. There is no mass effect. There is no evidence for hemorrhagic conversion. Punctate radiodensities within the left parietal lobe infarct favor calcifications. IMPRESSION: 1. No acute intracranial hemorrhage. No mass effect. 2. 5.3 cm hypodense focus with loss of crump-white differentiation within the left parietal lobe. This favors a subacute infarct with increase in extent since MRI of May 08, 2024. Several additional suspected subacute infarcts within the left basal ganglia and left diego radiata. ACT 112: Negative or not required by law. Electronically signed by: Issa Graf M.D. 05/18/2024 12:23 PM Chest X-Ray 05/18/24 11:00 XR chest 1V portable CLINICAL HISTORY: Altered mental status COMPARISON STUDY: Chest radiograph April 08, 2018. FINDINGS: Lung volumes are normal. There is no consolidation. Linear right lower lung density suggests atelectasis. There is no pneumothorax or pleural effusion. Cardiac size is normal. Mediastinal contours are normal. There is no evidence for pulmonary edema. IMPRESSION: No acute cardiopulmonary findings. ACT 112: Negative or not required by law. Electronically signed by: Issa Graf M.D. 05/18/2024 11:41 AM Abdomen/Pelvis CT 05/18/24 19:14 Exam(s): CT ABDOMEN + PELVIS Without Contrast EXAM: CT Abdomen and Pelvis Without Intravenous Contrast CLINICAL HISTORY: Lui hematuria. Assess. TECHNIQUE: Axial computed tomography images of the abdomen and pelvis without intravenous contrast. CTDI is 22.78 mGy and DLP is 1179.28 mGy-cm. Automated exposure control was utilized for the study. A dose lowering technique was utilized adhering to the principles of ALARA. COMPARISON: CT abdomen and pelvis with contrast dated 04/15/2018 FINDINGS: Artifacts: Scatter artifact likely related to patient's arm position. Limitations: There is respiratory artifact, which degrades image quality on multiple image slices. Lung bases: Curvilinear changes noted at the lung bases. No consolidation. ABDOMEN: Liver: Unremarkable. Gallbladder and bile ducts: Unremarkable. No calcified stones. No ductal dilation. Pancreas: Unremarkable. No ductal dilation. Spleen: Unremarkable. No splenomegaly. Adrenals: Unremarkable. No mass. Kidneys and ureters: The unenhanced kidneys demonstrate similar contours to the prior examination. No hydronephrosis, nephrolithiasis or ureteral stones. The previously noted cortical cyst posteriorly at the midpole of the left kidney is grossly stable, measuring approximately 8.5 mm. Detail evaluation limited. Stomach and bowel: No evidence for bowel obstruction. Evaluation of the bowel mucosa is slightly limited without contrast. Extensive diverticulosis noted involving the distal descending and sigmoid colon. No obvious diverticulitis. PELVIS: Appendix: A normal caliber appendix is noted in the right lower quadrant. Bladder: A Dominguez catheter is noted in the bladder. There is extensive hyperdense material throughout the bladder. Is most consistent with hemorrhagic clot burden throughout the bladder. Detail evaluation limited without contrast. No stones. Reproductive: Prostatic hypertrophy. ABDOMEN and PELVIS: Intraperitoneal space: Unremarkable. No free air. No significant fluid collection. Bones/joints: No acute fracture. No dislocation. Soft tissues: Hyperdense crescentic and irregular soft tissue swelling noted superficial to the right common femoral vasculature at the right groin. Vasculature: Unremarkable. No abdominal aortic aneurysm. Lymph nodes: Unremarkable. No enlarged lymph nodes. IMPRESSION: 1. The unenhanced kidneys demonstrate similar contours to the prior examination. No hydronephrosis, nephrolithiasis or ureteral stones. The previously noted cortical cyst posteriorly at the midpole of the left kidney is grossly stable, measuring approximately 8.5 mm. Detail evaluation limited. 2. A Dominguez catheter is noted in the bladder. There is extensive hyperdense material throughout the bladder. The appearance is most consistent with brain clot burden. No obvious focal bladder wall thickening. Detail evaluation limited. Prostatic hypertrophy. 3. Hyperdense crescentic and irregular soft tissue swelling noted superficial to the right common femoral vasculature at the right groin. Please correlate clinically for attempted vascular access in this region. Electronically signed by: George Newman MD 05/18/24 22:08 PM Abdomen/Pelvis CT 05/24/24 08:48 CT OF THE ABDOMEN AND PELVIS WITHOUT CONTRAST CLINICAL HISTORY: Gross hematuria. COMPARISON STUDY: CT of the abdomen and pelvis May 18, 2024. TECHNIQUE: Axial images of the abdomen and pelvis were obtained without IV contrast. Images were reviewed in the axial, sagittal, and coronal planes. Automated exposure control was utilized for the study. A dose lowering technique was utilized adhering to the principles of ALARA. FINDINGS: No pneumatosis, free air or portal venous gas is present. No renal, ureteral or bladder calculi are present. There is no hydronephrosis. A Dominguez balloon within the bladder is noted. Hyperdense material within the bladder is again noted. This suggests a moderate amount of clot. Sensitivity for detection of urothelial lesions is diminished on unenhanced exam. Prostate is enlarged, measuring 6.5 cm in caliber. A small amount of hemorrhage within the right groin is noted. Density of the clot has decreased since prior CT. Evaluation the remainder of the abdomen and pelvis is suboptimal on this unenhanced examination. Liver, spleen, adrenal glands and pancreas are unremarkable with the exception of pancreatic glandular atrophy. There is no lymphadenopathy. There is no evidence for a bowel obstruction. Note is made of extensive colonic diverticulosis without evidence for acute diverticulitis. IMPRESSION: 1. No urinary calculi or hydronephrosis. 2. Moderate amount of hyperdense material within the bladder consistent with clot. Dominguez balloon within the bladder. 3. Enlarged prostate. 4. Redemonstration of a small amount of hemorrhage within the right groin which has decreased in density since prior CT. ACT 112: Negative or not required by law. Electronically signed by: Issa Graf M.D. 05/24/2024 11:[address] 05/30/24 13:38 CT head without contrast History: Altered mental status Comparison: 05/18/2024 Technique: Using multidetector thin collimation helical acquisition technique, axial, coronal and sagittal CT images from the skull base to the vertex were obtained without intravenous contrast. Dose reduction techniques were achieved by using automatic exposure control and/or adjustment of mA and/or kV according to patient size and/or use of iterative reconstruction technique. Findings: No intracranial hemorrhage, mass-effect, or midline shift. The ventricles are proportionate to the cerebral sulci. There is marked cerebral atrophy. Evolving areas of previously seen infarct which are decreasing in conspicuity in the high left frontal lobe, the left caudate nucleus, and in the left temporal parietal lobe. No convincing evidence for new infarct. The basal cisterns are patent. The visualized paranasal sinuses are clear. Mastoid air cells are clear. Impression: No acute intracranial pathology. Electronically signed by Sathya Claire 05-30-2024 3:13 PM
[2024-06-11] MEDS ORDERED: SENNA 8.6 MG TAB PO PRN (07:52)
--- NOTE | 2024-06-11 13:40 | Hospitalist Progress Note ---
Date of Service June 11, 2024 Assessment & Plan (1) Acute drug-induced confusion: (2) Aphasia due to recent cerebrovascular accident (CVA): (3) Acute kidney injury superimposed on CKD: (4) Gross hematuria: Plan This is an 84-year-old male with PMH of DM type II, diabetic polyneuropathy, alcohol use, arthritis, gout, HTN, GERD, Anderson's esophagus, history of diverticulitis, CKD stage III and recent acute ischemic left MCA stroke who presented to the ED via EMS from [facility] on 05/18/2024 secondary to increased lethargy. Acute Drug-Induced Confusion, Delirium Severe Expressive Aphasia & Cognitive Changes 2/2 Recent CVA: Pertinent recent hospital course: Patient was recently admitted to [facility] on 05/08/2024 with acute onset of right- sided weakness and was ultimately found to have an acute CVA due to left MCA M3 branch occlusion, received TNK at that time. Had worsening expressive aphasia, new right-sided facial drooping and right hemiparesis on 05/09, repeat CTA revealed possible residual thrombus in the M2 segment therefore the patient was transferred to [facility]. At [facility] [place], CTP showed slowed perfusion in the left hemisphere. DSA was performed and no LVO was found, but LICA stent was placed. MRI brain showed multiple small acute infarcts in the left cerebral hemisphere, the largest in the parietal lobe. These are in the middle anterior cerebral artery distribution. Small petechial hemorrhage in the left postcentral gyrus. TTE showing small PFO, unlikely contributory. Clinical course was complicated by hyperactive delirium which required Precedex which was eventually transitioned to scheduled Seroquel. LTM EEG showed slowing but no epileptiform activity. Initially required NG tube due to poor oral tolerance but with resolution of his delirium he began eating PO. He was evaluated by speech therapy at [facility] who recommended soft & bite-sized solids with thin liquids. Was then discharged ton [facility]. While there, had Seroquel dose increased due to agitation (75mg HS) and presented to [facility] on 05/[address] from 05/18/2024 showed subacute infarcts similar in distribution to areas of infarct seen on brain MRI done 05/10/24 at [facility] per Epic records. Repeat head CT done 05/30/2024 without acute change, shows evolving changes of recent CVA but decreasing in size. Per psych recommendation on 06/01, trialed a less sedating antipsychotic such as Abilify 2.5mg daily -> titrated up to 5mg BID Seroquel discontinued 06/11: Have been titrating Zyprexa dose for past few days and held completely yesterday due to lethargy but increased agitation overnight Continue Abilify 5mg BID, resume Zyprexa 2.5 HS only No IM Zyprexa needed since 06/04 Continue DAPT and statin for recent CVA Patient has been working with PT/OT intermittently --> Feel pt is at his new medical baseline and would be best suited at [facility], where he will likely need termite exterminator helper placement after rehab stay. MICHAEL on CKD Stage III - resolved Baseline Cr ~1.4-1.7 per chart review. Cr was previously elevated at 1.85 on admission, trended up to 2.57 on 05/22/2024 Cr now at baseline, resuming losartan Continue to hold chlorthalidone Follows with [facility] as an outpatient (Dr. Mackey) Continue to monitor renal function and avoid nephrotoxic medications when able. Gross Hematuria - resolved HTN His antihypertensives were adjusted at [facility] and at the time of discharge he was on the following: olmesartan 20mg daily, chlorthalidone 25mg daily and hydralazine 10 mg BID Resumed losartan Continue holding chlorthalidone and hydralazine for now as pt has remained normotensive and these can likely be discontinued at discharge DM Type II - Chronic, stable. Hgb A1c was 7.2 on 05/09/2024. SSI on board, BSG remains stable. DVT Prophylaxis: SQ Heparin Code Status: DNR/DNI PCP: Dirk Disposition: PT/OT recommending rehab, I feel pt will be best suited at [facility] as [facility], medically stable when facility can accept Discussed with Marcia/FAROOQ. Agreeable to SNF placement and working with case management with pending referrals. I spent a total of 40 minutes coordinating, documenting, and providing care for this patient excluding time spent in the performance of separately billed s ervices. This included personally reviewing all current laboratories and imaging studies, medical reconciliation, outpatient chart review and discussion with specialists. Care coordinated with Dr. Vicente. Admission and Anticipated Discharge Date Admission Date: May 20, 2024 Supervising Physician Co-Signing Physician Notes I spent a total of 20 minutes coordinating, documenting and providing care for this patient excluding time spent in performance of separately billed services Subjective Patient more alert today. Answering questions appropriately but difficult to understand 2/2 dysarthria. Agitated overnight per RN but re-directable. No IM zyprexa needed. Eating his meals with assistance. ROS unobtainable. Review of Systems Review of Systems: Unobtainable due to cognitive status Physical Exam Physical Exam: Gen: WD/WN, NAD, resting in bed comfortably, lethargic but awakens to tactile stimuli, + baseline expressive aphasia HEENT: Normocephalic, atraumatic, conjunctivae moist, sclerae anicteric, mucous membranes moist Lung: Clear to Auscultation bilaterally, no wheezes/rales/rhonchi Heart: Regular rate, regular rhythm Abdomen: Soft, NT, ND +BS x 4 Extremities: + R sided weakness (chronic), no edema Skin: Warm, no rash Results & Data Results & Data Vital Signs (Past 12 Hours) Vital Signs Temp Pulse Resp BP Pulse Ox O2 Del Method 06/11/24 08:15 Room Air 06/11/24 07:03 36.4 C L 69 18 135/87 96 Room Air
[2024-06-11] MEDS: DEXTROSE 50% 50 ML SYRINGE IV PRN (20:07)
[2024-06-11] MEDS: OLANZapine 10 MG/2.1 ML SDV IM PRN (23:00)
--- NOTE | 2024-06-12 06:39 | Hospitalist Progress Note ---
Date of Service June 12, 2024 Assessment & Plan (1) Acute drug-induced confusion: (2) Aphasia due to recent cerebrovascular accident (CVA): (3) Acute kidney injury superimposed on CKD: (4) Gross hematuria: Plan Mg Little is an 84y/o M with PMHx significant for DMII, diabetic polyneuropathy, alcohol use, arthritis, gout, HTN, GERD, Andesron's esophagus, diverticulitis, CKD stage III and recent acute ischemic left MCA stroke who presented to the ED via EMS from [facility] on 05/18/2024 secondary to increased lethargy. Pertinent recent hospital course: Patient was recently admitted to [facility] on 05/08/2024 with acute onset of right- sided weakness and was ultimately found to have an acute CVA due to left MCA M3 branch occlusion, received TNK at that time. Had worsening expressive aphasia, new right-sided facial drooping and right hemiparesis on 05/09/2024, repeat CTA revealed possible residual thrombus in the M2 segment therefore the patient was transferred to [facility]. [place] [facility] showed slowed perfusion in the left hemisphere. DSA was performed and no LVO was found, but LICA stent was placed. MRI brain showed multiple small acute infarcts in the left cerebral hemisphere, the largest in the parietal lobe. These are in the middle anterior cerebral artery distribution. Small petechial hemorrhage in the left postcentral gyrus. TTE showing small PFO, unlikely contributory. Clinical course was complicated by hyperactive delirium which required Precedex which was eventually transitioned to scheduled Seroquel. LTM EEG showed slowing but no epileptiform activity. Initially required NG tube due to poor oral tolerance but with resolution of his delirium he began eating PO. He was evaluated by speech therapy at [facility] who recommended soft & bite-sized solids with thin liquids. Was then discharged to [facility]. While there, had Seroquel dose increased due to agitation (75mg HS) and presented to [facility] on 05/18/[address] from 05/18/2024 showed subacute infarcts similar in distribution to areas of infarct seen on brain MRI done 05/10/24 at [facility] per Epic records. Acute Drug-Induced Confusion, Delirium Severe Expressive Aphasia & Cognitive Changes 2/2 Recent CVA: Repeat head CT done 05/30/2024 without acute change, shows evolving changes of recent CVA but decreasing in size. Per psych recommendation on 06/01, trialed a less sedating antipsychotic such as Abilify 2.5mg daily --> titrated up to 5mg BID. Seroquel discontinued. Zyprexa 2.5mg BID was added to his regimen 2/2 increased agitation however he developed significant lethargy. Reduced Zyprexa dose to 2.5mg only HS on 06/11. Patient did require a dose of IM Zyprexa 5mg last evening 2/2 increased agitation. Continue Abilify 5mg BID, Zyprexa 2.5mg HS for now. May need to titrate dose of Zyprexa. Continue DAPT and statin for recent CVA. Patient has been working with PT/OT intermittently --> Feel he is at his new medical baseline and would be best suited at SNF; he will likely need long-term placement after rehab stay. MICHAEL on CKD Stage III - RESOLVED: Baseline Cr ~1.4-1.7 per chart review. Cr was previously elevated at 1.85 on admission, trended up to 2.57 on 05/22/2024. Cr at baseline as of 06/10; continue to hold chlorthalidone. Home losartan resumed. Follows with [facility] [Dr. Mackey]. Gross Hematuria - RESOLVED: Patient noted to have vernon hematuria in his condom catheter on 05/18/2024. UA from 05/18 with no evidence of urine bacteria. CTAP on 05/18/2024 --> Noted stable left renal cortical cyst measuring 8.5mm, blood clot burden within the bladder. Urology was consulted. S/p cystoscopy on 05/19/2025. Had Dominguez in place. Was on ciprofloxacin while on CBI per urology's recommendation, this has been completed. Hematuria has cleared as of 05/27/2024 --> ASA 81mg daily and SQ heparin resumed as they were previously placed on hold ISO active bleeding. Dominguez catheter removed on 05/28/2024; spontaneous voiding trial. Still with urinary incontinence, uses urinal. Bladder scan PRN. Plavix also resumed as hematuria is resolved. HTN: His antihypertensives were adjusted at [facility] and at the time of discharge he was on the following: olmesartan 20mg daily, chlorthalidone 25mg daily and hydralazine 10 mg BID. All BP meds were on hold previously 2/2 relative hypotension. Losartan resumed on 06/04. Continue to hold chlorthalidone and hydralazine for now as he has remained normotensive with losartan resumption. Likely chlorthalidone and hydralazine can be discontinued at disch arge if he remains normotensive. DMII: Chronic, stable. Hgb A1c was 7.2 on 05/09/2024. SSI on board, BSG remains stable. DVT Prophylaxis: SQ Heparin Code Status: DNR/DNI - No Resuscitation PCP: Art Cavazos DO Disposition: PT/OT recommending rehab; Patient will be best suited at SNF as he will not be able to tolerate the therapy at [facility], medically stable when facility can accept. Plan to update the patient's daughter/Marcia TRIVEDI, later this afternoon [ ]. Patient seen in collaboration with Dr. Vicente. Please see addendum. I spent a total of 35 minutes coordinating, documenting, and providing care for this patient excluding time spent in the performance of separately billed s ervices. This included personally reviewing all current laboratories and imaging studies, medical reconciliation, outpatient chart review and discussion with specialists. This chart was completed in part utilizing Speech Voice Recognition Software. Grammatical errors, random word insertions, pronoun errors, and incomplete sentences are an occasional consequence of this system due to software limi tations, ambient noise, and hardware issues. Any formal questions or concerns about the content, text, or information contained within the body of this dictation should be directly addressed to the provider for clarification. Admission and Anticipated Discharge Date Admission Date: May 20, 2024 Supervising Physician Co-Signing Physician Notes Patient seen and examined I spent a total of 15 minutes coordinating, documenting and providing care for this patient excluding time spent in performance of separately billed services Subjective Patient seen and examined at bedside this morning in room N376-1. Patient with increased agitation overnight requiring a dose of IM Zyprexa 5mg per discussion with nursing staff. He was restless at the time of my evaluation however he was not agitated/aggressive. He answers yes/no questions appropriately. Difficult to understand patient 2/2 to severe aphasia s/p CVA. Eating his meals with assistance as tolerated. Review of Systems Review of Systems: Unable to properly obtain secondary to the patient's expressive aphasia. Physical Exam Physical Exam: General: Tall/thin M, NAD, laying in bed with ROTARY DRUM DYER at bedside, severe expressive aphasia, A&O to direct yes/no questioning. HEENT: Normocephalic, atraumatic. Conjunctivae normal. External ear and nose normal, oropharynx normal. Respiratory: Normal respiratory effort, lungs clear to auscultation, no wheeze/rales/rhonchi. No accessory muscle use. Cardiovascular: Regular rate, rhythm, normal peripheral pulses, no BLE edema. Vessels: No JVD. Results & Data Results & Data Vital Signs (Past 12 Hours) Vital Signs Temp Pulse Resp BP Pulse Ox O2 Del Method 06/11/24 19:55 36.5 C 73 18 110/65 94 Room Air
--- NOTE | 2024-06-12 16:58 | Communication Note ---
Date of Service: June 12, 2024 Dose of po Zyprexa increased from 2.5mg HS to 5mg HS 2/2 increased agitation last evening requiring IM dose of 5mg Zyprexa. Holding off on PRN antipsychotics for now in preparation for SNF placement. Continue with delirium prevention measures: raising blinds during the day/closing at night, frequent re- orientation, contact with family/friends, explaining procedures/nursing care measures prior to physical contact, correct any hearing and visual impairments.
[2024-06-12] MEDS: ACETAMINOPHEN 325 MG TAB PO PRN (19:58)
[2024-06-12] MEDS: OLANZapine 5 MG TABLET PO SCH (20:00)
[2024-06-12] MEDS ORDERED: OLANZAPINE 2.5 MG TAB PO SCH (21:00)
--- NOTE | 2024-06-13 12:43 | Hospitalist Progress Note ---
Date of Service June 13, 2024 Assessment & Plan (1) Acute drug-induced confusion: (2) Aphasia due to recent cerebrovascular accident (CVA): (3) Acute kidney injury superimposed on CKD: (4) Gross hematuria: Plan Mg Little is an 84y/o M with PMHx significant for DMII, diabetic polyneuropathy, alcohol use, arthritis, gout, HTN, GERD, Anderson's esophagus, diverticulitis, CKD stage III and recent acute ischemic left MCA stroke who presented to the ED via EMS from [facility] on 05/18/2024 secondary to increased lethargy. Pertinent recent hospital course: Patient was recently admitted to [facility] on 05/08/2024 with acute onset of right- sided weakness and was ultimately found to have an acute CVA due to left MCA M3 branch occlusion, received TNK at that time. Had worsening expressive aphasia, new right-sided facial drooping and right hemiparesis on 05/09/2024, repeat CTA revealed possible residual thrombus in the M2 segment therefore the patient was transferred to [facility]. At [facility] [place], CTP showed slowed perfusion in the left hemisphere. DSA was performed and no LVO was found, but LICA stent was placed. MRI brain showed multiple small acute infarcts in the left cerebral hemisphere, the largest in the parietal lobe. These are in the middle anterior cerebral artery distribution. Small petechial hemorrhage in the left postcentral gyrus. TTE showing small PFO, unlikely contributory. Clinical course was complicated by hyperactive delirium which required Precedex which was eventually transitioned to scheduled Seroquel. LTM EEG showed slowing but no epileptiform activity. Initially required NG tube due to poor oral tolerance but with resolution of his delirium he began eating PO. He was evaluated by speech therapy at [facility] who recommended soft & bite-sized solids with thin liquids. Was then discharged to [facility]. While there, had Seroquel dose increased due to agitation (75mg HS) and presented to [facility] on 05/18/[address] from 05/18/2024 showed subacute infarcts similar in distribution to areas of infarct seen on brain MRI done 05/10/[address] [facility] per Epic records. Acute Drug-Induced Confusion, Delirium Severe Expressive Aphasia & Cognitive Changes 2/2 Recent CVA: Repeat head CT done 05/30/2024 without acute change, shows evolving changes of recent CVA but decreasing in size. Per psych recommendation on 06/01, trialed a less sedating antipsychotic such as Abilify 2.5mg daily -> titrated up to 5mg BID. Seroquel discontinued. Zyprexa 2.5mg BID was added to his regimen 2/2 increased agitation however he developed significant lethargy -> reduced Zyprexa dose to 2.5mg only HS on 06/11. Patient required a dose of IM Zyprexa 5mg on 06/11 reportedly 2/2 increased agitation; dose of po Zyprexa increased to 5mg HS on 06/12. Stopped PRN IM antipsychotics for now as he needs to be off IM meds in order to be accepted for SNF placement per prior discussion w/ CM. Continue Abilify 5mg BID, Zyprexa 5mg HS for now. Continue DAPT and statin for recent CVA. Patient has been working with PT/OT intermittently --> Feel he is at his new medical baseline and would be best suited at SNF; he will likely need long-term placement after rehab stay. MICHAEL on CKD Stage III - RESOLVED: Baseline Cr ~1.4-1.7 per chart review. Cr was previously elevated at 1.85 on admission, trended up to 2.57 on 05/22/2024. Cr at baseline as of 06/10; continue to hold chlorthalidone. Home losartan resumed. Follows with [facility] [Dr. Mackey]. Gross Hematuria - RESOLVED: Patient noted to have vernon hematuria in his condom catheter on 05/18/2024. UA from 05/18 with no evidence of urine bacteria. CTAP on 05/18/2024 --> Noted stable left renal cortical cyst measuring 8.5mm, blood clot burden within the bladder. Urology was consulted. S/p cystoscopy on 05/19/2025. Had Dominguez in place. Was on ciprofloxacin while on CBI per urology's recommendation, this has been completed. Hematuria has cleared as of 05/27/2024 --> ASA 81mg daily and SQ heparin resumed as they were previously placed on hold ISO active bleeding. Dominguez catheter removed on 05/28/2024; spontaneous voiding trial. Still with urinary incontinence, uses urinal. Bladder scan PRN. Plavix also resumed as hematuria has resolved. HTN: His antihypertensives were adjusted at [facility] and at the time of discharge he was on the following: olmesartan 20mg daily, chlorthalidone 25mg daily and hydralazine 10 mg BID. All BP meds were on hold previously 2/2 relative hypotension. Losartan resumed on 06/04. Continue to hold chlorthalidone and hydralazine for now as he has remained normotensive with losartan resumption. Likely chlorthalidone and hydralazine can be discontinued at discharge if he remains normotensive. DMII: Chronic, stable. Hgb A1c was 7.2 on 05/09/2024. SSI on board, BSG remains stable. DVT Prophylaxis: SQ Heparin Code Status: DNR/DNI - No Resuscitation PCP: Art Cavazos DO Disposition: PT/OT recommending rehab; Patient will be best suited at [facility] as he will not be able to tolerate the therapy at [facility], medically stable when facility can accept. Could not get in touch w/ the patient's daughter/Marcia TRIVEDI, yesterday; plan to call her again later this afternoon [ ]. Patient seen in collaboration with Dr. Vicente. Please see addendum. I spent a total of 30 minutes coordinating, documenting, and providing care for this patient excluding time spent in the performance of separately billed services. This included personally reviewing all current laboratories and imaging studies, medical reconciliation, outpatient chart review and discussion with specialists. This chart was completed in part utilizing Speech Voice Recognition Software. Grammatical errors, random word insertions, pronoun errors, and incomplete sentences are an occasional consequence of this system due to software limitations, ambient noise, and hardware issues. Any formal questions or concerns about the content, text, or information contained within the body of this dictation should be directly addressed to the provider for clarification. Admission and Anticipated Discharge Date Admission Date: May 20, 2024 Supervising Physician Co-Signing Physician Notes Patient seen and examined I spent a total of 15 minutes coordinating, documenting and providing care for this patient excluding time spent in performance of separately billed services Subjective Patient seen and examined at bedside this morning in room N3-1. Spoke with WEIGHT RECORDER at bedside. He is still quite restless with intermittent varying levels of agitation. He was sleeping in bed completely undressed when I entered the room as he repeatedly takes off his gown. He offered no complaints with direct yes/no questioning. When asked if he was tired, he simply responded "yes" and went back to sleep. Review of Systems Review of Systems: Unable to properly obtain secondary to the patient's expressive aphasia. Physical Exam Physical Exam: General: Tall/thin M, NAD, laying in bed with WEIGHT RECORDER at bedside, severe expressive aphasia, A&O to direct yes/no questioning. HEENT: Normocephalic, atraumatic. Conjunctivae normal. External ear and nose normal, oropharynx normal. Respiratory: Normal respiratory effort, lungs clear to auscultation, no wheeze/rales/rhonchi. No accessory muscle use. Cardiovascular: Regular rate, rhythm, normal peripheral pulses, no BLE edema. Vessels: No JVD. Results & Data Results & Data Vital Signs (Past 12 Hours) Vital Signs Temp Resp BP Pulse Ox O2 Del Method 06/13/24 07:57 36.7 C 16 144/80 H 96 Room Air
--- NOTE | 2024-06-14 10:03 | Hospitalist Progress Note ---
Date of Service June 14, 2024 Assessment & Plan (1) Acute drug-induced confusion: (2) Aphasia due to recent cerebrovascular accident (CVA): (3) Acute kidney injury superimposed on CKD: (4) Gross hematuria: Plan Mg Little is an 84y/o M with PMHx significant for DMII, diabetic polyneuropathy, alcohol use, arthritis, gout, HTN, GERD, Anderson's esophagus, diverticulitis, CKD stage III and recent acute ischemic left MCA stroke who presented to the ED via EMS from [facility] on 05/18/2024 secondary to increased lethargy. Pertinent recent hospital course: Patient was recently admitted to [facility] on 05/08/2024 with acute onset of right- sided weakness and was ultimately found to have an acute CVA due to left MCA M3 branch occlusion, received TNK at that time. Had worsening expressive aphasia, new right-sided facial drooping and right hemiparesis on 05/09/2024, repeat CTA revealed possible residual thrombus in the M2 segment therefore the patient was transferred to [facility]. At [facility], CTP showed slowed perfusion in the left hemisphere. DSA was performed and no LVO was found, but LICA stent was placed. MRI brain showed multiple small acute infarcts in the left cerebral hemisphere, the largest in the parietal lobe. These are in the middle anterior cerebral artery distribution. Small petechial hemorrhage in the left postcentral gyrus. TTE showing small PFO, unlikely contributory. Clinical course was complicated by hyperactive delirium which required Precedex which was eventually transitioned to scheduled Seroquel. LTM EEG showed slowing but no epileptiform activity. Initially required NG tube due to poor oral tolerance but with resolution of his delirium he began eating PO. He was evaluated by speech therapy at [facility] who recommended soft & bite-sized solids with thin liquids. Was then discharged to [facility]. While there, had Seroquel dose increased due to agitation (75mg HS) and presented to [facility] on 05/18/[address] from 05/18/2024 showed subacute infarcts similar in distribution to areas of infarct seen on brain MRI done 05/10/24 at [facility] per Epic records. Acute Drug-Induced Confusion, Delirium Severe Expressive Aphasia & Cognitive Changes 2/2 Recent CVA: Repeat head CT done 05/30/2024 without acute change, shows evolving changes of recent CVA but decreasing in size. Per psych recommendation on 06/01, trialed a less sedating antipsychotic such as Abilify 2.5mg daily -> titrated up to 5mg BID. Seroquel discontinued. Zyprexa 2.5mg BID was added to his regimen 2/2 increased agitation however he developed significant lethargy -> reduced Zyprexa dose to 2.5mg only HS on 06/11. Patient required a dose of IM Zyprexa 5mg on 06/11 reportedly 2/2 increased agitation; dose of po Zyprexa increased to 5mg HS on 06/12. Stopped PRN IM antipsychotics for now as he needs to be off IM meds in order to be accepted for SNF placement per prior discussion w/ CM. NAEO. Continue Abilify 5mg BID, Zyprexa 5mg HS. Continue DAPT and statin for recent CVA. Patient has been working with PT/OT intermittently --> Feel he is at his new medical baseline and would be best suited at SNF; he will likely need long-term placement after rehab stay. MICHAEL on CKD Stage III - RESOLVED: Baseline Cr ~1.4-1.7 per chart review. Cr was previously elevated at 1.85 on admission, trended up to 2.57 on 05/22/2024. Cr at baseline as of 06/10; continue to hold chlorthalidone. Home losartan resumed. Follows with [facility] [Dr. Mackey]. Gross Hematuria - RESOLVED: Patient noted to have vernon hematuria in his condom catheter on 05/18/2024. UA from 05/18 with no evidence of urine bacteria. CTAP on 05/18/2024 --> Noted stable left renal cortical cyst measuring 8.5mm, blood clot burden within the bladder. Urology was consulted. S/p cystoscopy on 05/19/2025. Had Dominguez in place. Was on ciprofloxacin while on CBI per urology's recommendation, this has been completed. Hematuria has cleared as of 05/27/2024 --> ASA 81mg daily and SQ heparin resumed as they were previously placed on hold ISO active bleeding. Dominguez catheter removed on 05/28/2024; spontaneous voiding trial. Still with urinary incontinence, uses urinal. Bladder scan PRN. Plavix also resumed as hematuria has resolved. HTN: His antihypertensives were adjusted at [facility] and at the time of discharge he was on the following: olmesartan 20mg daily, chlorthalidone 25mg daily and hydralazine 10 mg BID. All BP meds were on hold previously 2/2 relative hypotension. Losartan resumed on 06/04. Continue to hold chlorthalidone and hydralazine for now as he has remained rather normotensive with losartan resumption. Likely chlorthalidone and hydralazine can be discontinued at discharge if he remains normotensive. DMII: Chronic, stable. Hgb A1c was 7.2 on 05/09/2024. SSI on board, BSG remains stable. DVT Prophylaxis: SQ Heparin Code Status: DNR/DNI - No Resuscitation PCP: Art Cavazos, Disposition: PT/OT recommending rehab; Patient will be best suited at [facility] as he will not be able to tolerate the therapy at [facility], medically stable when facility can accept. Patient's daughter/POA, Marcia, is planning to visit him today - will meet with her as she is planning to return back to [place] tomorrow; she can otherwise be reached at the following phone #: . Patient seen in collaboration with Dr. Vicente. Please see addendum. I spent a total of 30 minutes coordinating, documenting, and providing care for this patient excluding time spent in the performance of separately billed services. This included personally reviewing all current laboratories and imaging studies, medical reconciliation, outpatient chart review and discussion with specialists. This chart was completed in part utilizing Speech Voice Recognition Software. Grammatical errors, random word insertions, pronoun errors, and incomplete sentences are an occasional consequence of this system due to software limitations, ambient noise, and hardware issues. Any formal questions or co ncerns about the content, text, or information contained within the body of this dictation should be directly addressed to the provider for clarification. Admission and Anticipated Discharge Date Admission Date: May 20, 2024 Supervising Physician Co-Signing Physician Notes Patient seen and examine Agree with plans as detailed by Marisol Iyer PA-C I spent a total of 15 minutes coordinating, documenting and providing care for this patient excluding time spent in performance of separately billed services Subjective Patient seen and examined at bedside this morning in room N376-1. KRISHAN. Spoke with nursing staff at bedside who reports he did well overnight; he was sleeping when I entered the room. No additional need for IM antipsychotic injections since 06/11. His daughter, Marcia, is planning to come in and see him today before she heads back to [place]. Plan to meet with her later this afternoon. Review of Systems Review of Systems: Unable to properly obtain secondary to the patient's expressive aphasia. Physical Exam Physical Exam: General: Tall/thin M, NAD, laying in bed with TRAINER at bedside, severe expressive aphasia, A&O to direct yes/no questioning. HEENT: Normocephalic, atraumatic. Conjunctivae normal. External ear and nose normal, oropharynx little dry. Respiratory: Normal respiratory effort, lungs clear to auscultation, no wheeze/rales/rhonchi. No accessory muscle use. Cardiovascular: Regular rate, rhythm, normal peripheral pulses, no BLE edema. Vessels: No JVD. Results & Data Results & Data Vital Signs (Past 12 Hours) Vital Signs Temp Pulse Resp BP Pulse Ox O2 Del Method 06/14/24 06:57 36.7 C 100 H 17 179/81 H 96 Room Air
[2024-06-15] MEDS ORDERED: CIPROFLOXACIN HCL 0.3% OP SOLN 2.5 ML BTL OP SCH (00:30)
[2024-06-15] MEDS: CIPROFLOXACIN HCL 0.3% OP SOLN 2.5 ML BTL OPL SCH (01:20)
[2024-06-15 06:34] LABS: Basophils # (auto) 0.08 K/uL (0.00-0.20); Eosinophils # (auto) 0.02 K/uL (0.00-0.50); Eosinophils % (auto) 0.2 %; Hematocrit (blood only) 34.9 % (42.0-52.0); Hemoglobin 11.8 g/dl (14.0-18.0); Immature Granulocytes # (auto) 0.04 K/uL (0.01-0.20); Immature Granulocytes % (auto) 0.5 %; Lymphocytes # (auto) 1.44 K/uL (1.20-3.40); Lymphocytes % (auto) 17.5 %; Mean Corpuscular Hemoglobin 28.9 pg (25.0-34.0); Mean Corpuscular Hgb Conc 33.8 g/dL (32.0-36.0); Mean Corpuscular Volume 85.5 fL (80.0-100.0); Mean Platelet Volume 9.9 fL (9.4-12.4); Monocytes # (auto) 0.52 K/uL (0.11-0.59); Monocytes % (auto) 6.3 %; Neutrophils # (auto) 6.12 K/uL (1.40-6.50); Neutrophils % (auto) 74.5 %; Platelet Count 270 K/uL (130-400); RDW Coefficient of Variation 14.2 % (11.5-14.5); RDW Standard Deviation 44.4 fL (36.4-46.3); Red Blood Count 4.08 M/uL (4.70-6.10); White Blood Count 8.22 K/ul (4.8-10.8)
[2024-06-15 07:24] LABS: Calcium 9.5 mg/dl (8.6-10.3); Magnesium 1.6 mg/dl (1.7-2.4); Potassium 4.1 mmol/L (3.5-5.1)
[2024-06-15] MEDS: MAGNESIUM OXIDE 400 MG TAB PO SCH (09:06)
--- NOTE | 2024-06-15 10:45 | Hospitalist Progress Note ---
Date of Service June 15, 2024 Assessment & Plan (1) Acute drug-induced confusion: (2) Aphasia due to recent cerebrovascular accident (CVA): (3) Acute kidney injury superimposed on CKD: (4) Gross hematuria: Plan Mg Little is an 84y/o M with PMHx significant for DMII, diabetic polyneuropathy, alcohol use, arthritis, gout, HTN, GERD, Anderson's esophagus, diverticulitis, CKD stage III and recent acute ischemic left MCA stroke who presented to the ED via EMS from [facility] on 05/18/2024 secondary to increased lethargy. Pertinent recent hospital course: Patient was recently admitted to [facility] on 05/08/2024 with acute onset of right- sided weakness and was ultimately found to have an acute CVA due to left MCA M3 branch occlusion, received TNK at that time. Had worsening expressive aphasia, new right-sided facial drooping and right hemiparesis on 05/09/2024, repeat CTA revealed possible residual thrombus in the M2 segment therefore the patient was transferred to [facility]. At [facility], CTP showed slowed perfusion in the left hemisphere. DSA was performed and no LVO was found, but LICA stent was placed. MRI brain showed multiple small acute infarcts in the left cerebral hemisphere, the largest in the parietal lobe. These are in the middle anterior cerebral artery distribution. Small petechial hemorrhage in the left postcentral gyrus. TTE showing small PFO, unlikely contributory. Clinical course was complicated by hyperactive delirium which required Precedex which was eventually transitioned to scheduled Seroquel. LTM EEG showed slowing but no epileptiform activity. Initially required NG tube due to poor oral tolerance but with resolution of his delirium he began eating PO. He was evaluated by speech therapy at [facility] who recommended soft & bite-sized solids with thin liquids. Was then discharged to [facility] While there, had Seroquel dose increased due to agitation (75mg HS) and presented to [facility] on 05/18/[address] from 05/18/2024 showed subacute infarcts similar in distribution to areas of infarct seen on brain MRI done 05/10/24 at [facility] per Epic records. Acute Drug-Induced Confusion, Delirium Severe Expressive Aphasia & Cognitive Changes 2/2 Recent CVA: Repeat head CT done 05/30/2024 without acute change, shows evolving changes of recent CVA but decreasing in size. Per psych recommendation on 06/01, trialed a less sedating antipsychotic such as Abilify 2.5mg daily -> titrated up to 5mg BID. Seroquel discontinued. Zyprexa 2.5mg BID was added to his regimen 2/2 increased agitation however he developed significant lethargy -> reduced Zyprexa dose to 2.5mg only HS on 06/11. Patient required a dose of IM Zyprexa 5mg on 06/11 reportedly 2/2 increased agitation; dose of po Zyprexa increased to 5mg HS on 06/12. Stopped PRN IM antipsychotics for now as he needs to be off IM meds in order to be accepted for SNF placement per prior discussion w/ CM. Bit his tongue overnight but otherwise no other acute events; repeat labs stable. Continue Abilify 5mg BID, Zyprexa 5mg HS. Continue DAPT and statin for recent CVA. Patient has been working with PT/OT intermittently --> Feel he is at his new medical baseline and would be best suited at SNF; he will likely need long-term placement after rehab stay. MICHAEL on CKD Stage III - RESOLVED: Baseline Cr ~1.4-1.7 per chart review. Cr was previously elevated at 1.85 on admission, trended up to 2.57 on 05/22/2024. Cr at baseline as of 06/10; continue to hold chlorthalidone. Home losartan resumed. Follows with [facility] [Dr. Mackey]. Gross Hematuria - RESOLVED: Patient noted to have vernon hematuria in his condom catheter on 05/18/2024. UA from 05/18 with no evidence of urine bacteria. CTAP on 05/18/2024 --> Noted stable left renal cortical cyst measuring 8.5mm, blood clot burden within the bladder. Urology was consulted. S/p cystoscopy on 05/19/2025. Had Dominguez in place. Was on ciprofloxacin while on CBI per urology's recommendation, this has been completed. Hematuria has cleared as of 05/27/2024 --> ASA 81mg daily and SQ heparin resumed as they were previously placed on hold ISO active bleeding. Dominguez catheter removed on 05/28/2024; spontaneous voiding trial. Still with urinary incontinence, uses urinal. Bladder scan PRN. Plavix also resumed as hematuria has resolved. HTN: His antihypertensives were adjusted at [facility] and at the time of discharge he was on the following: olmesartan 20mg daily, chlorthalidone 25mg daily and hydralazine 10 mg BID. All BP meds were on hold previously 2/2 relative hypotension. Losartan resumed on 06/04. Continue to hold chlorthalidone and hydralazine for now as he has remained rather normotensive with losartan resumption. Likely chlorthalidone and hydralazine can be discontinued at discharge if he remains normotensive. DMII: Chronic, stable. Hgb A1c was 7.2 on 05/09/2024. SSI on board, BSG remains stable. Hypomagnesemia: Mag 1.6 on repeat labs this morning. Started on magnesium supplementation. DVT Prophylaxis: SQ Heparin Code Status: DNR/DNI - No Resuscitation PCP: Atr Cavazos, Disposition: PT/OT recommending rehab; Patient will be best suited at [facility] as he will not be able to tolerate the therapy at [facility] medically stable when facility can accept. Patient's daughter/POA, Marcia, returned back home to [place] yesterday. She is requesting routine updates. She is working with to secure placement hopefully in [facility] close to other relatives. She can be reached at the following phone #: . Patient seen in collaboration with Dr. Vicente. Please see addendum. I spent a total of 35 minutes coordinating, documenting, and providing care for this patient excluding time spent in the performance of separately billed services and time spent by another provider/QHP. This included personally reviewing all current laboratories and imaging studies, medical reconciliation, outpatient chart review and discussion with specialists. This chart was completed in part utilizing Speech Voice Recognition Software. Grammatical errors, random word insertions, pronoun errors, and incomplete sentences are an occasional consequence of this system due to software limitations, ambient noise, and hardware issues. Any formal questions or concerns about the content, text, or information contained within the body of this dictation should be directly addressed to the provider for clarification. Admission and Anticipated Discharge Date Admission Date: May 20, 2024 Supervising Physician Co-Signing Physician Notes Patient seen and examined Agree with plans as detailed by Marisol Dunkleberger PA-C I spent a total of 15 minutes coordinating, documenting and providing care for this patient excluding time spent in performance of separately billed services Subjective Patient seen and examined at bedside this morning in room N376-1. JEIMY. Patient drowsy when I entered the room but was opening his eyes to verbal cues. Not as restless. He ate breakfast earlier. Spoke with his daughter, Marcia, yesterday afternoon in his room prior to her heading back home to [place]. Still working to obtain placement with CM. No additional need for IM antipsychotic injections since 06/11. He was found to have some blood in his mouth overnight by nursing staff. Suspect this was 2/2 him biting his tongue and there were no obvious injuries/active bleeding. Now resolved. Labs stable this morning. Review of Systems Review of Systems: Unable to properly obtain secondary to the patient's mentation status/expressive aphasia. Physical Exam Physical Exam: General: Tall/thin M, NAD, laying in bed, severe expressive aphasia, A&O to direct yes/no questioning. HEENT: Normocephalic, atraumatic. Conjunctivae normal. Oropharynx w/ minimal dried blood, no active bleeding. Respiratory: Normal respiratory effort, lungs clear to auscultation, no wheeze/rales/rhonchi. No accessory muscle use. Cardiovascular: Regular rate, rhythm, normal peripheral pulses, no BLE edema. Vessels: No JVD. Results & Data Results & Data Vital Signs (Past 12 Hours) Vital Signs Temp Pulse Resp BP Pulse Ox O2 Del Method 06/15/24 07:17 36.6 C 89 16 136/79 96 Room Air Laboratory Results Short CBC 06/15/24 Range/Units 05:45 WBC 8.22 (4.8-10.8) K/ul Hgb 11.8 L (14.0-18.0) g/dl Hct 34.9 L (42.0-52.0) % Plt Count 270 (130-400) K/uL BMP 06/15/24 05:45 Sodium 140 Potassium 4.1 Chloride 107 Carbon Dioxide 23 BUN 32 H Creatinine 1.39 Glucose 122 H Calcium 9.5
[2024-06-15] MEDS: LORazepam 2 MG/1 ML VIAL IV STA (16:47)
--- NOTE | 2024-06-16 12:06 | Hospitalist Progress Note ---
Date of Service June 16, 2024 Assessment & Plan (1) Acute drug-induced confusion: (2) Aphasia due to recent cerebrovascular accident (CVA): (3) Acute kidney injury superimposed on CKD: (4) Gross hematuria: Plan Mg Little is an 84y/o M with PMHx significant for DMII, diabetic polyneuropathy, alcohol use, arthritis, gout, HTN, GERD, Anderson's esophagus, diverticulitis, CKD stage III and recent acute ischemic left MCA stroke who presented to the ED via EMS from [facility] on 05/18/2024 secondary to increased lethargy. Pertinent recent hospital course: Patient was recently admitted to [facility] on 05/08/2024 with acute onset of right- sided weakness and was ultimately found to have an acute CVA due to left MCA M3 branch occlusion, received TNK at that time. Had worsening expressive aphasia, new right-sided facial drooping and right hemiparesis on 05/09/2024, repeat CTA revealed possible residual thrombus in the M2 segment therefore the patient was transferred to [facility]. At [facility], CTP showed slowed perfusion in the left hemisphere. DSA was performed and no LVO was found, but LICA stent was placed. MRI brain showed multiple small acute infarcts in the left cerebral hemisphere, the largest in the parietal lobe. These are in the middle anterior cerebral artery distribution. Small petechial hemorrhage in the left postcentral gyrus. TTE showing small PFO, unlikely contributory. Clinical course was complicated by hyperactive delirium which required Precedex which was eventually transitioned to scheduled Seroquel. LTM EEG showed slowing but no epileptiform activity. Initially required NG tube due to poor oral tolerance but with resolution of his delirium he began eating PO. He was evaluated by speech therapy at [facility] who recommended soft & bite-sized solids with thin liquids. Was then discharged to [facility]. While there, had Seroquel dose increased due to agitation (75mg HS) and presented to [facility] on 05/18/[address] from 05/18/2024 showed subacute infarcts similar in distribution to areas of infarct seen on brain MRI done 05/10/24 at [facility] per Epic records. Acute Drug-Induced Confusion, Delirium Severe Expressive Aphasia & Cognitive Changes 2/2 Recent CVA: Repeat head CT done 05/30/2024 negative, shows evolving changes of recent CVA but decreasing in size. Per psych recommendation on 06/01, trialed a less sedating antipsychotic such as Abilify 2.5mg daily -> titrated up to 5mg BID. Seroquel discontinued. Zyprexa 2.5mg BID was added to his regimen 2/2 increased agitation however he developed significant lethargy -> reduced Zyprexa dose to 2.5mg only HS on 06/11. Has not required antipsychotics since 06/11. Continue Abilify 5mg BID, Zyprexa 5mg HS. Continue DAPT and statin for recent CVA. Patient has been working with PT/OT intermittently --> Feel he is at his new medical baseline and would be best suited at SNF; he will likely need long-term placement after rehab stay. MICHAEL on CKD Stage III - RESOLVED: Baseline Cr ~1.4-1.7 per chart review. Cr at baseline as of 06/10; continue to hold chlorthalidone. Home losartan resumed. Follows with [facility] [Dr. Mackey]. Gross Hematuria - RESOLVED: Patient noted to have vernon hematuria in his condom catheter on 05/18/2024. UA from 05/18 with no evidence of urine bacteria. CTAP on 05/18/2024 --> Noted stable left renal cortical cyst measuring 8.5mm, blood clot burden within the bladder. Urology was consulted. S/p cystoscopy on 05/19/2025. Had Dominguez in place. Was on ciprofloxacin while on CBI per urology's recommendation, this has been completed. Hematuria has cleared as of 05/27/2024 --> ASA 81mg daily and SQ heparin resumed as they were previously placed on hold ISO active bleeding. Dominguez catheter removed on 05/28/2024; spontaneous voiding trial. Still with urinary incontinence, uses urinal. Bladder scan PRN. Plavix also resumed as hematuria has resolved. HTN: All BP meds were on hold previously 2/2 relative hypotension. Losartan resumed on 06/04. Continue to hold chlorthalidone and hydralazine. Likely chlorthalidone and hydralazine can be discontinued at discharge if he remains normotensive. DMII: Chronic, stable. Hgb A1c was 7.2 on 05/09/2024. SSI on board, BSG remains stable. Hypomagnesemia: Mg 1.6 on 06/15. Started on PO Mg+. Will recheck in AM. DVT Prophylaxis: SQ Heparin Code Status: DNR/DNI - No Resuscitation PCP: Art Cavazos, Disposition: PT/OT recommending rehab; Patient will be best suited at SNF as he will not be able to tolerate the therapy at [facility], medically stable when facility can accept. Patient's daughter/POA, Marcia, returned back home to [place] yesterday. She is requesting routine updates. She is working with to secure placement hopefully in [facility] close to other relatives. She can be reached at the following phone #: . I spent a total of 53 minutes coordinating, documenting, and providing care for this patient excluding time spent in the performance of separately billed services and time spent by another provider/QHP. This included personally reviewing all current laboratories and imaging studies, medical reconciliation, outpatient chart review and discussion with specialists. This chart was completed in part utilizing Speech Voice Recognition Software. Grammatical errors, random word insertions, pronoun errors, and incomplete sentences are an occasional consequence of this system due to software limitations, ambient noise, and hardware issues. Any formal questions or concerns about the content, text, or information contained within the body of this dictation should be directly addressed to the provider for clarification. Admission and Anticipated Discharge Date Admission Date: May 20, 2024 Supervising Physician Co-Signing Physician Notes delayed entry date of service noted above Attending Addendum: Case reviewed with the advanced practitioner. I have personally performed a history and physical examination on the patient. I have reviewed the advanced practitioner's documentation on the date of service referenced in note, and I agree with, and take responsibility for the plan of care. please refer to her notes for full details patient seen and examined, records reviewed by myself as well diagnoses and plan of care as per advanced practitioner's notes Hussain Daniels MD Subjective Patient seen and examined at bedside this morning in room N376-1. Nursing was just working with the patient. He does open his eyes and responds to verbal command Has not required any antipsychotics since 06/11. Unable to respond to ROS due to aphagia. Discussed with CM; goal for SNF once bed available. Patient does not appear to be in any apparent distress. Review of Systems Review of Systems: Unable to properly obtain secondary to the patient's mentation status/expressive aphasia. Physical Exam Physical Exam: Neuro: AAOx1, PERRLA, no aphagia, memory changes, CNII-XII grossly intact; follows simple commands; is focal HEENT: head normocephalic, dry mucus membranes CV: S1/S2, (-) M/G/R, (-) edema, cap refill < 3 seconds Resp: Lungs decreased in all kelley. On RA GI: Abdomen S/NT/ND, Ax4 bowel sounds, (-) CVA tenderness Musculoskeletal: 5/5 LUE strength, 5/5 LLE strength. Entire R side flacidity Skin: (-) rashes , (-) erythema. scattered old ecchymosis on upper arms Psych: euthymic mood Results & Data Results & Data Vital Signs (Past 12 Hours) Vital Signs Temp Pulse Resp BP Pulse Ox O2 Del Method 06/16/24 07:52 Room Air 06/16/24 07:13 36.9 C 69 20 151/80 H 98 Room Air
[2024-06-17 09:17] LABS: BUN Creatinine Ratio 26.1 (10-20); Calcium 9.7 mg/dl (8.6-10.3); Creatinine Clr Calc Pharmacy 49.5 ml/min; Magnesium 1.7 mg/dl (1.7-2.4); Potassium 4.1 mmol/L (3.5-5.1)
[2024-06-17] MEDS ORDERED: GLUCAGON FOR INJ 1 MG VIAL SQ PRN ×2 (15:08→21:31)
[2024-06-17] MEDS ORDERED: DEXTROSE 50% 50 ML SYRINGE IV PRN ×2 (15:08→21:31)
[2024-06-17] MEDS ORDERED: GLUCOSE 10 TAB/TUBE PO PRN ×2 (15:08→21:31)
[2024-06-17] MEDS ORDERED: CARBOHYDRATES FOR HYPOGLYCEMIA PO PRN ×2 (15:08→21:31)
[2024-06-17] MEDS ORDERED: GLUCOSE 40% GEL 15 GM TUBE PO PRN ×2 (15:08→21:31)
--- NOTE | 2024-06-17 15:17 | Hospitalist Progress Note ---
Date of Service June 17, 2024 Assessment & Plan (1) Acute drug-induced confusion: (2) Aphasia due to recent cerebrovascular accident (CVA): (3) Acute kidney injury superimposed on CKD: (4) Gross hematuria: Plan Mg Little is an 84y/o M with PMHx significant for DMII, diabetic polyneuropathy, alcohol use, arthritis, gout, HTN, GERD, Anderson's esophagus, diverticulitis, CKD stage III and recent acute ischemic left MCA stroke who presented to the ED via EMS from [facility] on 05/18/2024 secondary to increased lethargy. Pertinent recent hospital course: Patient was recently admitted to [facility] on 05/08/2024 with acute onset of right- sided weakness and was ultimately found to have an acute CVA due to left MCA M3 branch occlusion, received TNK at that time. Had worsening expressive aphasia, new right-sided facial drooping and right hemiparesis on 05/09/2024, repeat CTA revealed possible residual thrombus in the M2 segment therefore the patient was transferred to [facility]. [place] [facility] [place] showed slowed perfusion in the left hemisphere. DSA was performed and no LVO was found, but LICA stent was placed. MRI brain showed multiple small acute infarcts in the left cerebral hemisphere, the largest in the parietal lobe. These are in the middle anterior cerebral artery distribution. Small petechial hemorrhage in the left postcentral gyrus. TTE showing small PFO, unlikely contributory. Clinical course was complicated by hyperactive delirium which required Precedex which was eventually transitioned to scheduled Seroquel. LTM EEG showed slowing but no epileptiform activity. Initially required NG tube due to poor oral tolerance but with resolution of his delirium he began eating PO. He was evaluated by speech therapy at [facility] who recommended soft & bite-sized solids with thin liquids. Was then discharged to [facility]. While there, had Seroquel dose increased due to agitation (75mg HS) and presented to [facility] on 05/18/[address] from 05/18/2024 showed subacute infarcts similar in distribution to areas of infarct seen on brain MRI done 05/10/24 at [facility] per Epic records. Acute Drug-Induced Confusion, Delirium Severe Expressive Aphasia & Cognitive Changes 2/2 Recent CVA: Repeat head CT done 05/30/2024 negative, shows evolving changes of recent CVA but decreasing in size. Per psych recommendation on 06/01, trialed a less sedating antipsychotic such as Abilify 2.5mg daily -> titrated up to 5mg BID. Seroquel discontinued. Zyprexa 2.5mg BID was added to his regimen 2/2 increased agitation however he developed significant lethargy -> reduced Zyprexa dose to 2.5mg only HS on 06/11. Has not required antipsychotics since 06/11. Continue Abilify 5mg BID, Zyprexa 5mg HS. Continue DAPT and statin for recent CVA. Patient has been working with PT/OT intermittently --> Feel he is at his new medical baseline and would be best suited at SNF; he will likely need long-term placement after rehab stay. Daughter Marcia heavily involved with process MICHAEL on CKD Stage III - RESOLVED: Baseline Cr ~1.4-1.7 per chart review. Cr at baseline as of 06/10; continue to hold chlorthalidone. Home losartan resumed. Follows with [facility] [Dr. Mackey]. SBP ranges 100-150 Gross Hematuria - RESOLVED: Patient noted to have vernon hematuria in his condom catheter on 05/18/2024. UA from 05/18 with no evidence of urine bacteria. CTAP on 05/18/2024 --> Noted stable left renal cortical cyst measuring 8.5mm, blood clot burden within the bladder. Urology was consulted. S/p cystoscopy on 05/19/2025. Had Dominguez in place. Was on ciprofloxacin while on CBI per urology's recommendation, this has been completed. Hematuria has cleared as of 05/27/2024 --> ASA 81mg daily and SQ heparin resumed as they were previously placed on hold ISO active bleeding. Dominguez catheter removed on 05/28/2024; spontaneous voiding trial. Still with urinary incontinence, uses urinal. Bladder scan PRN. Plavix also resumed as hematuria has resolved. HTN: All BP meds were on hold previously 2/2 relative hypotension. Losartan resumed on 06/04. Continue to hold chlorthalidone and hydralazine. L cielo chlorthalidone and hydralazine can be discontinued at discharge if he remains normotensive. DMII: Chronic, stable. Hgb A1c was 7.2 on 05/09/2024. SSI on board, BSG remains stable. Hypomagnesemia: Mg 1.7 Trend Mg+ in AM DVT Prophylaxis: SQ Heparin Code Status: DNR/DNI - No Resuscitation PCP: Art Cavazos, Disposition: PT/OT recommending rehab; Patient will be best suited at SNF as he will not be able to tolerate the therapy at [facility], medically stable when facility can accept. Patient's daughter/POA, Marcia, returned back home to [place] yesterday. She is requesting routine updates. She is working with to secure placement hopefully in [facility] close to other relatives. She can be reached at the following phone #: . I spent a total of 53 minutes coordinating, documenting, and providing care for this patient excluding time spent in the performance of separately billed services and time spent by another provider/QHP. This included personally reviewing all current laboratories and imaging studies, medical reconciliation, outpatient chart review and discussion with specialists. This chart was completed in part utilizing Speech Voice Recognition Software. Grammatical errors, random word insertions, pronoun errors, and incomplete s entences are an occasional consequence of this system due to software limitations, ambient noise, and hardware issues. Any formal questions or concerns about the content, text, or information contained within the body of this dictation should be directly addressed to the provider for clarification. Admission and Anticipated Discharge Date Admission Date: May 20, 2024 Supervising Physician Co-Signing Physician Notes Attending Addendum: Case reviewed with the advanced practitioner. I have personally performed a history and physical examination on the patient. I have reviewed the advanced practitioner's documentation on the date of service referenced in note, and I agree with, and take responsibility for the plan of care. please refer to her notes for full details patient seen and examined, records reviewed by myself as well diagnoses and plan of care as per advanced practitioner's notes Hussain Daniels MD Subjective Patient seen and examined at bedside this morning in room N376-1. He is pretty sleepy this AM; seems to be common for him to be less interactive in the AM; and more interactive throughout the day. He does open his eyes and respond to verbal command. Has not required any antipsychotics since 06/11. Unable to respond to ROS due to aphagia. Discussed with CM; goal for SNF once bed available. I updated his daughter Marcia over the phone. Patient does not appear to be in any apparent distress. Review of Systems Review of Systems: Unable to properly obtain secondary to the patient's mentation status/expressive aphasia. Physical Exam Physical Exam: Neuro: AAOx1, PERRLA, no aphagia, memory changes, CNII-XII grossly intact; follows simple commands; is focal throughout the day HEENT: head normocephalic, dry mucus membranes CV: S1/S2, (-) M/G/R, (-) edema, cap refill < 3 seconds Resp: Lungs decreased in all kelley. On RA GI: Abdomen S/NT/ND, Ax4 bowel sounds, (-) CVA tenderness Musculoskeletal: 5/5 LUE strength, 5/5 LLE strength. Entire R side flacidity Skin: (-) rashes , (-) erythema. Psych: euthymic mood Results & Data Results & Data Vital Signs (Past 12 Hours) Vital Signs Temp Pulse Resp BP Pulse Ox O2 Del Method 06/17/24 14:20 36.8 C 71 16 110/66 97 Room Air 06/17/24 08:20 36.8 C 85 16 118/62 94 Room Air 06/17/24 08:01 Room Air Laboratory Results BMP 06/17/24 08:20 Sodium 139 Potassium 4.1 Chloride 106 Carbon Dioxide 26 BUN 30 H Creatinine 1.15 Glucose 131 H Calcium 9.7
[2024-06-17] MEDS ORDERED: INSULIN ASPART PER UNIT CHARGE SC SCH (16:30)
[2024-06-17] MEDS ORDERED: LANTUS PER UNIT CHARGE SQ SCH (21:00)
[2024-06-18] MEDS: CHLORHEXIDINE GLUCONATE 0.12% 480 ML MT SCH (10:16)
[2024-06-18] MEDS: hydrALAZINE 10 MG TAB PO SCH (10:23)
[2024-06-18] MEDS: LANTUS PER UNIT CHARGE SQ SCH (10:27)
--- NOTE | 2024-06-18 14:14 | Hospitalist Progress Note ---
Date of Service June 18, 2024 Assessment & Plan (1) Acute drug-induced confusion: (2) Aphasia due to recent cerebrovascular accident (CVA): (3) Acute kidney injury superimposed on CKD: (4) Gross hematuria: Plan Mg Little is an 84y/o M with PMHx significant for DMII, diabetic polyneuropathy, alcohol use, arthritis, gout, HTN, GERD, Anderson's esophagus, diverticulitis, CKD stage III and recent acute ischemic left MCA stroke who presented to the ED via EMS from [facility] on 05/18/2024 secondary to increased lethargy. Pertinent recent hospital course: Patient was recently admitted to [facility] on 05/08/2024 with acute onset of right- sided weakness and was ultimately found to have an acute CVA due to left MCA M3 branch occlusion, received TNK at that time. Had worsening expressive aphasia, new right-sided facial drooping and right hemiparesis on 05/09/2024, repeat CTA revealed possible residual thrombus in the M2 segment therefore the patient was transferred to [facility]. At [facility] [place], CTP showed slowed perfusion in the left hemisphere. DSA was performed and no LVO was found, but LICA stent was placed. MRI brain showed multiple small acute infarcts in the left cerebral hemisphere, the largest in the parietal lobe. These are in the middle anterior cerebral artery distribution. Small petechial hemorrhage in the left postcentral gyrus. TTE showing small PFO, unlikely contributory. Clinical course was complicated by hyperactive delirium which required Precedex which was eventually transitioned to scheduled Seroquel. LTM EEG showed slowing but no epileptiform activity. Initially required NG tube due to poor oral tolerance but with resolution of his delirium he began eating PO. He was evaluated by speech therapy at [facility] who recommended soft & bite-sized solids with thin liquids. Was then discharged to [facility]. While there, had Seroquel dose increased due to agitation (75mg HS) and presented to [facility] on 05/18/[address] from 05/18/2024 showed subacute infarcts similar in distribution to areas of infarct seen on brain MRI done 05/10/24 at [facility] per Epic records. Acute Drug-Induced Confusion, Delirium Severe Expressive Aphasia & Cognitive Changes 2/2 Recent CVA: Repeat head CT done 05/30/2024 negative, shows evolving changes of recent CVA but decreasing in size. Per psych recommendation on 06/01, trialed a less sedating antipsychotic such as Abilify 2.5mg daily -> titrated up to 5mg BID. Seroquel discontinued. Zyprexa 2.5mg BID was added to his regimen 2/2 increased agitation however he developed significant lethargy -> reduced Zyprexa dose to 2.5mg only HS on 06/11. Has not required antipsychotics since 06/11. Continue Abilify 5mg BID, Zyprexa 5mg HS. Continue DAPT and statin for recent CVA. Patient has been working with PT/OT intermittently --> Feel he is at his new medical baseline and would be best suited at SNF; he will likely need long-term placement after rehab stay. Daughter Marcia heavily involved with process MICHAEL on CKD Stage III - RESOLVED: Baseline Cr ~1.4-1.7 per chart review. Cr at baseline as of 06/10; continue to hold chlorthalidone. Home losartan resumed. Follows with [facility] [Dr. Mackey]. SBP ranges 100-150 Gross Hematuria - RESOLVED: Patient noted to have vernon hematuria in his condom catheter on 05/18/2024. UA from 05/18 with no evidence of urine bacteria. CTAP on 05/18/2024 --> Noted stable left renal cortical cyst measuring 8.5mm, blood clot burden within the bladder. Urology was consulted. S/p cystoscopy on 05/19/2025. Had Dominguez in place. Was on ciprofloxacin while on CBI per urology's recommendation, this has been completed. Hematuria has cleared as of 05/27/2024 --> ASA 81mg daily and SQ heparin resumed as they were previously placed on hold ISO active bleeding. Dominguez catheter removed on 05/28/2024; spontaneous voiding trial. Still with urinary incontinence, uses urinal. Bladder scan PRN. Plavix also resumed as hematuria has resolved. HTN: All BP meds were on hold previously 2/2 relative hypotension. Losartan resumed on 06/04. Continue to hold chlorthalidone and hydralazine. L cielo chlorthalidone and hydralazine can be discontinued at discharge if he remains normotensive. DMII: Chronic, stable. Hgb A1c was 7.2 on 05/09/2024. SSI on board, BSG remains stable. Hypomagnesemia: Mg 1.7 Trend Mg+ in AM DVT Prophylaxis: SQ Heparin Code Status: DNR/DNI - No Resuscitation PCP: Art Cavazos DO Disposition: PT/OT recommending rehab; awaiting SNF placement. Patient's daughter/POA, Marcia, returned back home to [place] yesterday. She is requesting routine updates. She is working with to secure placement hopefully in [facility] close to other relatives vs [place] near his brother. She can be reached at the following phone #: . I spent a total of 46 minutes coordinating, documenting, and providing care for this patient excluding time spent in the performance of separately billed services and time spent by another provider/QHP. This included personally reviewing all current laboratories and imaging studies, medical reconciliation, outpatient chart review and discussion with specialists. This chart was completed in part utilizing Speech Voice Recognition Software. Grammatical errors, random word insertions, pronoun errors, and incomplete sentences are an occasional consequence of this system due to software limitations, ambient noise, and hardware issues. Any formal questions or concerns about the content, text, or information contained within the body of this dictation should be directly addressed to the provider for clarification. Admission and Anticipated Discharge Date Admission Date: May 20, 2024 Supervising Physician Co-Signing Physician Notes Attending Addendum: Case reviewed with the advanced practitioner. I have reviewed the advanced practitioner's documentation on the date of service referenced in note, and I agree with, and take responsibility for the plan of care. please refer to her notes for full details patient seen and examined, records reviewed by myself as well diagnoses and plan of care as per advanced practitioner's notes Hussain Daniels MD I spent a total of 20 minutes coordinating, documenting and providing care for this patient excluding time spent in the performance of separately billed services or time spent by another provider/QHP. Subjective Patient seen and examined at bedside this morning in room N376-1. He is pretty tired in the mornings. seems to be common for him to be less interactive in the AM; and more interactive throughout the day. He does open his eyes and respond to verbal command. Unable to respond to ROS due to aphagia. Has not required any antipsychotics since 06/11. Discussed with CM; goal for SNF once bed available. Patient does not appear to be in any apparent distress. Review of Systems Review of Systems: Unable to properly obtain secondary to the patient's mentation status/expressive aphasia. Physical Exam Physical Exam: Neuro: AAOx1, PERRLA, no aphagia, memory changes, CNII-XII grossly intact; follows simple commands; is focal throughout the day HEENT: head normocephalic, dry mucus membranes CV: S1/S2, (-) M/G/R, (-) edema, cap refill < 3 seconds Resp: Lungs decreased in all kelley. On RA GI: Abdomen S/NT/ND, Ax4 bowel sounds, (-) CVA tenderness Musculoskeletal: 5/5 LUE strength, 5/5 LLE strength. Entire R side flacidity Skin: (-) rashes , (-) erythema. Psych: euthymic mood Results & Data Results & Data Vital Signs (Past 12 Hours) Vital Signs Temp Pulse Resp BP Pulse Ox O2 Del Method 06/18/24 07:05 36.5 C 65 18 122/82 96 Room Air
[2024-06-18] MEDS: CYANOCOBALAMIN (B-12) 500 MCG TABLET PO SCH (19:54)
[2024-06-18] MEDS: ATORVASTATIN 40 MG TAB PO SCH (19:55)
[2024-06-18] MEDS: LATANOPROST 0.005% OP SOLN 2.5 ML BTL OPB SCH (19:56)
--- NOTE | 2024-06-19 07:48 | Hospitalist Progress Note ---
Date of Service June 19, 2024 Assessment & Plan (1) Acute drug-induced confusion: (2) Aphasia due to recent cerebrovascular accident (CVA): (3) Acute kidney injury superimposed on CKD: (4) Gross hematuria: Plan Mg Little is an 84y/o M with PMHx significant for DMII, diabetic polyneuropathy, alcohol use, arthritis, gout, HTN, GERD, Anderson's esophagus, diverticulitis, CKD stage III and recent acute ischemic left MCA stroke who presented to the ED via EMS from [facility] on 05/18/2024 secondary to increased lethargy. Pertinent recent hospital course: Patient was recently admitted to [facility] on 05/08/2024 with acute onset of right- sided weakness and was ultimately found to have an acute CVA due to left MCA M3 branch occlusion, received TNK at that time. Had worsening expressive aphasia, new right-sided facial drooping and right hemiparesis on 05/09/2024, repeat CTA revealed possible residual thrombus in the M2 segment therefore the patient was transferred to [facility]. At [facility] [place], [place]P showed slowed perfusion in the left hemisphere. DSA was performed and no LVO was found, but LICA stent was placed. MRI brain showed multiple small acute infarcts in the left cerebral hemisphere, the largest in the parietal lobe. These are in the middle anterior cerebral artery distribution. Small petechial hemorrhage in the left postcentral gyrus. TTE showing small PFO, unlikely contributory. Clinical course was complicated by hyperactive delirium which required Precedex which was eventually transitioned to scheduled Seroquel. LTM EEG showed slowing but no epileptiform activity. Initially required NG tube due to poor oral tolerance but with resolution of his delirium he began eating PO. He was evaluated by speech therapy at [facility] who recommended soft & bite-sized solids with thin liquids. Was then discharged to [facility]. While there, had Seroquel dose increased due to agitation (75mg HS) and presented to [facility] on 05/18/[address] from 05/18/2024 showed subacute infarcts similar in distribution to areas of infarct seen on brain MRI done 05/10/24 at [facility] per Epic records. Acute Drug-Induced Confusion, Delirium Severe Expressive Aphasia & Cognitive Changes 2/2 Recent CVA: Repeat head CT done 05/30/2024 negative, shows evolving changes of recent CVA but decreasing in size. Per psych recommendation on 06/01, trialed a less sedating antipsychotic such as Abilify 2.5mg daily -> titrated up to 5mg BID. Seroquel discontinued. Zyprexa 2.5mg BID was added to his regimen 2/2 increased agitation however he developed significant lethargy -> reduced Zyprexa dose to 2.5mg only HS on 06/11. Has not required antipsychotics since 06/11. Continue Abilify 5mg BID, Zyprexa 5mg HS. Continue DAPT and statin for recent CVA. Patient has been working with PT/OT intermittently --> Feel he is at his new medical baseline and would be best suited at SNF; he will likely need long-term placement after rehab stay. Daughter Marcia heavily involved with process. MICHAEL on CKD Stage III - RESOLVED: Baseline Cr ~1.4-1.7 per chart review. Cr at baseline as of 06/10; continue to hold chlorthalidone. Home losartan resumed. Follows with [facility] [Dr. Mackey]. SBP ranges 100-150. Gross Hematuria - RESOLVED: Patient noted to have vernon hematuria in his condom catheter on 05/18/2024. UA from 05/18 with no evidence of urine bacteria. CTAP on 05/18/2024 --> Noted stable left renal cortical cyst measuring 8.5mm, blood clot burden within the bladder. Urology was consulted. S/p cystoscopy on 05/19/2025. Had Dominguez in place. Was on ciprofloxacin while on CBI per urology's recommendation, this has been completed. Hematuria has cleared as of 05/27/2024 --> ASA 81mg daily and SQ heparin resumed as they were previously placed on hold ISO active bleeding. Dominguez catheter removed on 05/28/2024; spontaneous voiding trial. Still with urinary incontinence, uses urinal. Bladder scan PRN. Plavix also resumed as hematuria has resolved. HTN: All BP meds were on hold previously 2/2 relative hypotension. Losartan resumed on 06/04. Continue to hold chlorthalidone and hydralazine. Gabbie piña chlorthalidone and hydralazine can be discontinued at discharge if he remains normotensive. DMII: Chronic, stable. Hgb A1c was 7.2 on 05/09/2024. SSI on board, BSG remains stable. Hypomagnesemia: Mg 1.7 Trend Mg+ in AM DVT Prophylaxis: SQ Heparin Code Status: DNR/DNI - No Resuscitation PCP: Art Cavazos DO Disposition: PT/OT recommending rehab; awaiting SNF placement. Patient's daughter/POA, Marcia, returned back home to [place] yesterday. She is requesting routine updates. She is working with to secure placement hopefully in [facility] close to other relatives vs [place] near his brother. She can be reached at the following phone #: . I spent a total of 46 minutes coordinating, documenting, and providing care for this patient excluding time spent in the performance of separately billed services and time spent by another provider/QHP. This included personally reviewing all current laboratories and imaging studies, medical reconciliation, outpatient chart review and discussion with specialists. This chart was completed in part utilizing Speech Voice Recognition Software. Grammatical errors, random word insertions, pronoun errors, and incomplete sentences are an occasional consequence of this system due to software limitations, ambient noise, and hardware issues. Any formal questions or concerns about the content, text, or information contained within the body of this dictation should be directly addressed to the provider for clarification. Admission and Anticipated Discharge Date Admission Date: May 20, 2024 Supervising Physician Co-Signing Physician Notes Attending Addendum: Case reviewed with the advanced practitioner. I have reviewed the advanced practitioner's documentation on the date of service referenced in note, and I agree with, and take responsibility for the plan of care. please refer to her notes for full details diagnoses and plan of care as per advanced practitioner's notes Hussain Daniels MD Subjective Patient seen and examined at bedside this morning in room N376-1. He was more interactive today than he has been in the mornings. I talked to him about running a marathon myself and he looked at me and said "congratulations". He does open his eyes and respond to verbal command and had good focus with eye contact. Has not required any antipsychotics since 06/11. Discussed with CM; goal for SNF once bed available. Patient does not appear to be in any apparent distress. Review of Systems Review of Systems: Unable to properly obtain secondary to the patient's mentation status/expressive aphasia. Physical Exam Physical Exam: Neuro: AAOx1, PERRLA, no aphagia, memory changes, CNII-XII grossly intact; follows simple commands; is focal throughout the day HEENT: head normocephalic, dry mucus membranes CV: S1/S2, (-) M/G/R, (-) edema, cap refill < 3 seconds Resp: Lungs decreased in all kelley. On RA GI: Abdomen S/NT/ND, Ax4 bowel sounds, (-) CVA tenderness Musculoskeletal: 5/5 LUE strength, 5/5 LLE strength. Entire R side flacidity Skin: (-) rashes , (-) erythema. Psych: euthymic mood Results & Data Results & Data Vital Signs (Past 12 Hours) Vital Signs Temp Pulse Resp BP Pulse Ox O2 Del Method 06/18/24 19:51 37.0 C 89 16 119/71 96 Room Air
[2024-06-20 06:56] LABS: Hematocrit (blood only) 33.4 % (42.0-52.0); Hemoglobin 11.4 g/dl (14.0-18.0); Mean Corpuscular Hemoglobin 29.2 pg (25.0-34.0); Mean Corpuscular Hgb Conc 34.1 g/dL (32.0-36.0); Mean Corpuscular Volume 85.4 fL (80.0-100.0); Mean Platelet Volume 9.7 fL (9.4-12.4); Platelet Count 291 K/uL (130-400); RDW Coefficient of Variation 14.2 % (11.5-14.5); RDW Standard Deviation 44.1 fL (36.4-46.3); Red Blood Count 3.91 M/uL (4.70-6.10); White Blood Count 7.82 K/ul (4.8-10.8)
[2024-06-20 07:09] LABS: BUN Creatinine Ratio 35.8 (10-20); Calcium 9.8 mg/dl (8.6-10.3); Creatinine Clr Calc Pharmacy 47.4 ml/min; Potassium 3.8 mmol/L (3.5-5.1)
--- NOTE | 2024-06-20 07:21 | Hospitalist Progress Note ---
Date of Service June 20, 2024 Assessment & Plan (1) Acute drug-induced confusion: (2) Aphasia due to recent cerebrovascular accident (CVA): (3) Acute kidney injury superimposed on CKD: (4) Gross hematuria: Plan Mg Little is an 84y/o M with PMHx significant for DMII, diabetic polyneuropathy, alcohol use, arthritis, gout, HTN, GERD, Anderson's esophagus, diverticulitis, CKD stage III and recent acute ischemic left MCA stroke who presented to the ED via EMS from [facility] on 05/18/2024 secondary to increased lethargy. Pertinent recent hospital course: Patient was recently admitted to [facility] on 05/08/2024 with acute onset of right- sided weakness and was ultimately found to have an acute CVA due to left MCA M3 branch occlusion, received TNK at that time. Had worsening expressive aphasia, new right-sided facial drooping and right hemiparesis on 05/09/2024, repeat CTA revealed possible residual thrombus in the M2 segment therefore the patient was transferred to [facility]. At [facility], CTP showed slowed perfusion in the left hemisphere. DSA was performed and no LVO was found, but LICA stent was placed. MRI brain showed multiple small acute infarcts in the left cerebral hemisphere, the largest in the parietal lobe. These are in the middle anterior cerebral artery distribution. Small petechial hemorrhage in the left postcentral gyrus. TTE showing small PFO, unlikely contributory. Clinical course was complicated by hyperactive delirium which required Precedex which was eventually transitioned to scheduled Seroquel. LTM EEG showed slowing but no epileptiform activity. Initially required NG tube due to poor oral tolerance but with resolution of his delirium he began eating PO. He was evaluated by speech therapy at [facility] who recommended soft & bite-sized solids with thin liquids. Was then discharged to [facility]. While there, had Seroquel dose increased due to agitation (75mg HS) and presented to [facility] on 05/18/[address] from 05/18/2024 showed subacute infarcts similar in distribution to areas of infarct seen on brain MRI done 05/10/24 at [facility] per Epic records. Acute Drug-Induced Confusion, Delirium Severe Expressive Aphasia & Cognitive Changes 2/2 Recent CVA: Repeat head CT done 05/30/2024 negative, shows evolving changes of recent CVA but decreasing in size. Per psych recommendation seroquel discontinued. Zyprexa 5 mg QHS which was started on 06/11. Continue Abilify 5mg BID, Zyprexa 5mg HS. Continue DAPT and statin for recent CVA. Feel he is at his new medical baseline and would be best suited at SNF; he will likely need long-term placement after rehab stay. Daughter Marcia heavily involved with process. MICHAEL on CKD Stage III - RESOLVED: Baseline Cr ~1.4-1.7 per chart review. Creatinine 1.20 today Cr at baseline as of 06/10; continue to hold chlorthalidone. Follows with [facility] [Dr. Mackey]. SBP ranges 100-150. Gross Hematuria - RESOLVED: Patient noted to have vernon hematuria in his condom catheter on 05/18/2024. UA from 05/18 with no evidence of urine bacteria. CTAP on 05/18/2024 --> Noted stable left renal cortical cyst measuring 8.5mm, blood clot burden within the bladder. Urology was consulted. S/p cystoscopy on 05/19/2025. Had Dominguez in place. Was on ciprofloxacin while on CBI per urology's recommendation, this has been completed. Hematuria has cleared as of 05/27/2024 --> ASA 81mg daily and SQ heparin resumed as they were previously placed on hold ISO active bleeding. Dominguez catheter removed on 05/28/2024; spontaneous voiding trial. Still with urinary incontinence, uses urinal. Bladder scan PRN. Plavix also resumed as hematuria has resolved. HTN: All BP meds were on hold previously 2/2 relative hypotension. Losartan resumed on 06/04. Continue to hold chlorthalidone and hydralazine. Likely chlorthalidone and hydralazine can be discontinued at discharge if he remains normotensive. DMII: Chronic, stable. Hgb A1c was 7.2 on 05/09/2024. SSI on board, BSG remains stable. Hypomagnesemia: Mg 1.7 RESOLVED DVT Prophylaxis: SQ Heparin Code Status: DNR/DNI PCP: Art Cavazos, Disposition: PT/OT recommending rehab; awaiting SNF placement. Patient's daughter/POA, Marcia, lives in [place]. She is requesting routine updates. She is working with CM to secure placement hopefully in [facility] close to other relatives vs [place] near his brother. She can be reached at the following phone #: . I spent a total of 46 minutes coordinating, documenting, and providing care for this patient excluding time spent in the performance of separately billed services and time spent by another provider/QHP. This included personally reviewing all current laboratories and imaging studies, medical reconciliation, outpatient chart review and discussion with specialists. Admission and Anticipated Discharge Date Admission Date: May 20, 2024 Supervising Physician Co-Signing Physician Notes Attending Addendum: Case reviewed with the advanced practitioner. I have reviewed the advanced practitioner's documentation on the date of service referenced in note, and I agree with, and take responsibility for the plan of care. please refer to her notes for full details patient seen and examined, records reviewed by myself as well diagnoses and plan of care as per advanced practitioner's notes I spent a total of 20 minutes coordinating, documenting, and providing care for this patient, excluding time spent in the performance of separately billed services or time spent by another provider/QHP Hussain Daniels MD Subjective Patient seen and examined at bedside this morning in room N376-1. Nursing messaged in the AM to notify me that he was more restless this AM. I went to see him and he was upside down in the bed with his head at the foot of bed and his feet at the head of bed. He received Olanzepine 5 mg once. No attempt to get out of bed. He does have soft bed rails in place and bed alarm is active. I asked him how he was doing today; he said very slowly 'change of scenery' No changes in vital signs; will attempt UA to cover infective base. Remains on RA with adequate saturations with no adventitious lung sounds; no need for CXR at this time. Discussed with CM; goal for SNF once bed available. Unable to participate in ROS reliably; however, patient said 'no, I do not have pain' Call to patient daughter Marcia @ [phone] and left Voicemail. She has been ill with the flu herself. Review of Systems Review of Systems: Unable to properly obtain secondary to the patient's mentation status/expressive aphasia. Physical Exam Physical Exam: Neuro: AAOx1 PERRLA, no aphagia, memory changes, CNII-XII grossly intact; follows simple commands; is focal throughout the day HEENT: head normocephalic, dry mucus membranes CV: S1/S2, (-) M/G/R, (-) edema, cap refill < 3 seconds Resp: Lungs decreased in all kelley. On RA GI: Abdomen S/NT/ND, Ax4 bowel sounds, (-) CVA tenderness Musculoskeletal: 5/5 LUE strength, 5/5 LLE strength. Entire R side flacidity Skin: (-) rashes , (-) erythema. Psych: euthymic mood Results & Data Results & Data Laboratory Results Short CBC 06/20/24 Range/Units 06:28 WBC 7.82 (4.8-10.8) K/ul Hgb 11.4 L (14.0-18.0) g/dl Hct 33.4 L (42.0-52.0) % Plt Count 291 (130-400) K/uL BMP 06/20/24 06:28 Sodium 140 Potassium 3.8 Chloride 107 Carbon Dioxide 24 BUN 43 H Creatinine 1.20 Glucose 101 H Calcium 9.8
[2024-06-20] MEDS: OLANZapine 5 MG TABLET PO ONE (10:14)
[2024-06-20 12:49] LABS: Magnesium 1.8 mg/dl (1.7-2.4)
--- NOTE | 2024-06-21 10:15 | Hospitalist Progress Note ---
Date of Service June 21, 2024 Assessment & Plan (1) Acute drug-induced confusion: (2) Aphasia due to recent cerebrovascular accident (CVA): (3) Acute kidney injury superimposed on CKD: (4) Gross hematuria: Plan Mg Little is an 84y/o M with PMHx significant for DMII, diabetic polyneuropathy, alcohol use, arthritis, gout, HTN, GERD, Anderson's esophagus, diverticulitis, CKD stage III and recent acute ischemic left MCA stroke who presented to the ED via EMS from [facility] on 05/18/2024 secondary to increased lethargy. Pertinent recent hospital course: Patient was recently admitted to [facility] on 05/08/2024 with acute onset of right- sided weakness and was ultimately found to have an acute CVA due to left MCA M3 branch occlusion, received TNK at that time. Had worsening expressive aphasia, new right-sided facial drooping and right hemiparesis on 05/09/2024, repeat CTA revealed possible residual thrombus in the M2 segment therefore the patient was transferred to [facility]. At [facility], CTP showed slowed perfusion in the left hemisphere. DSA was performed and no LVO was found, but LICA stent was placed. MRI brain showed multiple small acute infarcts in the left cerebral hemisphere, the largest in the parietal lobe. These are in the middle anterior cerebral artery distribution. Small petechial hemorrhage in the left postcentral gyrus. TTE showing small PFO, unlikely contributory. Clinical course was complicated by hyperactive delirium which required Precedex which was eventually transitioned to scheduled Seroquel. LTM EEG showed slowing but no epileptiform activity. Initially required NG tube due to poor oral tolerance but with resolution of his delirium he began eating PO. He was evaluated by speech therapy at [facility] who recommended soft & bite-sized solids with thin liquids. Was then discharged to [facility]. While there, had Seroquel dose increased due to agitation (75mg HS) and presented to [facility] on 05/18/[address] from 05/18/2024 showed subacute infarcts similar in distribution to areas of infarct seen on brain MRI done 05/10/24 at [facility] per Epic records. Acute Drug-Induced Confusion, Delirium Severe Expressive Aphasia & Cognitive Changes 2/2 Recent CVA: Repeat head CT done 05/30/2024 negative, shows evolving changes of recent CVA but decreasing in size. Per psych recommendation seroquel discontinued. Zyprexa 5 mg QHS which was started on 06/11. Continue Abilify 5mg BID, Zyprexa 5mg HS. Continue DAPT and statin for recent CVA. Feel he is at his new medical baseline and would be best suited at SNF; he will likely need long-term placement after rehab stay. Daughter Marcia heavily involved with process. MICHAEL on CKD Stage III - RESOLVED: Baseline Cr ~1.4-1.7 per chart review. Creatinine 1.20 today Cr at baseline as of 06/10; continue to hold chlorthalidone. Follows with [facility] [Dr. Mackey]. HTN: All BP meds were on hold previously 2/2 relative hypotension. Losartan resumed on 06/04. His hydralazine was also resumed on 06/18. D/C chlorthalidone DMII: Chronic, stable. Hgb A1c was 7.2 on 05/09/2024. SSI on board, BSG on lower side, discontinue Lantus Hypomagnesemia: Mg 1.7 RESOLVED DVT Prophylaxis: SQ Heparin Code Status: DNR/DNI PCP: Art Cavazos DO Disposition:awaiting SNF placement. Patient's daughter/POA, Marcia, lives in [place]. She is requesting routine updates. She is working with to secure placement hopefully in [facility] close to other relatives vs [place] near his brother. She can be reached at the following phone #: . I spent a total of 33 minutes coordinating, documenting, and providing care for this patient excluding time spent in the performance of separately billed services and time spent by another provider/QHP. This included personally reviewing all current laboratories and imaging studies, medical reconciliation, outpatient chart review and discussion with specialists. Admission and Anticipated Discharge Date Admission Date: May 20, 2024 Subjective Pt seen in 376-1. ROS difficult to obtain 2/2 mental status/cognition. No nursing concerns reported. Pt appears comfortable Review of Systems Review of Systems: Unobtainable due to cognitive status Physical Exam Physical Exam: Gen: Tall, Thin, M, lying in bed, drowsy, arouses to tactile stimuli severe expressive aphasia HEENT: Normocephalic, atraumatic, conjunctivae moist, sclerae anicteric, mucous membranes dry. Lung: Clear to Auscultation bilaterally, no wheezes/rales/rhonchi Heart: Regular rate, regular rhythm, no murmurs, rubs, or gallops Abdomen: Soft, NT, ND +BS x 4 Extremities: No edema, RHP Skin: Warm, no rash, negative turgor. Results & Data Results & Data Vital Signs (Past 12 Hours) Vital Signs Temp Pulse Resp BP Pulse Ox O2 Del Method 06/21/24 07:23 36.5 C 85 19 152/89 H 92 Room Air Medications Administered Current Inpatient Medications Acetaminophen (Acetaminophen 325 Mg Tab) 650 mg PO Q4H PRN PRN Reason: Pain/Fever Stop: 07/12/24 11:47 Last Admin: 06/20/24 20:20 Dose: 650 mg Aripiprazole (Aripiprazole 5 Mg Tab) 5 mg PO BID CRISTIAN Stop: 07/04/24 20:59 Last Admin: 06/21/24 08:24 Dose: 5 mg Atorvastatin Calcium (Atorvastatin 40 Mg Tab) 40 mg PO HS CRISTIAN Stop: 07/18/24 20:59 Last Admin: 06/20/24 20:13 Dose: 40 mg Chlorhexidine Gluconate (Chlorhexidine Gluconate 0.12% 480 Ml) 15 ml MT BID CRISTIAN Stop: 07/18/24 08:59 Last Admin: 06/21/24 08:32 Dose: 15 ml Ciprofloxacin (Ciprofloxacin Hcl 0.3% Op Soln 2.5 Ml Btl) 2 drops OPL Q4H CRISTIAN Stop: 06/25/24 00:29 Last Admin: 06/21/24 08:29 Dose: 2 drops Cyanocobalamin (Cyanocobalamin (B-12) 500 Mcg Tablet) 1,000 mcg PO HS CRISTIAN Stop: 07/18/24 20:59 Last Admin: 06/20/24 20:12 Dose: 1,000 mcg Dextrose (Dextrose 50% 50 Ml Syringe) 25 - 50 ml IV UD PRN; Protocol PRN Reason: Hypoglycemia Protocol Stop: 07/17/24 21:30 Ferrous Sulfate (Ferrous Sulfate 325 Mg/7.4 Ml Udp) 325 mg PO QPM CRISTIAN Stop: 07/04/24 20:59 Last Admin: 06/20/24 20:13 Dose: 325 mg Glucagon (Glucagon For Inj 1 Mg Vial) 1 mg SQ UD PRN; Protocol PRN Reason: Hypoglycemia Protocol Stop: 07/17/24 21:30 Glucose (Glucose 40% Gel 15 Gm Tube) 15 - 30 gm PO UD PRN; Protocol PRN Reason: Hypoglycemia Protocol Stop: 07/17/24 21:30 Glucose (Glucose 10 Tab/Tube) 4 - 8 tab PO UD PRN; Protocol PRN Reason: Hypoglycemia Protocol Stop: 07/17/24 21:30 Hydralazine HCl (Hydralazine 10 Mg Tab) 10 mg PO BID CRISTIAN Stop: 07/18/24 08:59 Last Admin: 06/21/24 08:25 Dose: 10 mg Insulin Aspart (Insulin Aspart Per Unit Charge) 0 units SC ACHS CRISTIAN Stop: 06/24/24 16:29 Last Admin: 06/21/24 08:30 Dose: Not Given Insulin Glargine (Lantus Per Unit Charge) 4 units SQ BID CRISTIAN Stop: 07/18/24 08:59 Last Admin: 06/21/24 08:55 Dose: Not Given Lactobacillus Acidophilus (Advanced Probiotic 625 Mg Capsule) 1,250 mg PO DAILY CRISTIAN Stop: 06/22/24 08:59 Last Admin: 06/21/24 08:26 Dose: 1,250 mg Latanoprost (Latanoprost 0.005% Op Soln 2.5 Ml Btl) 1 drops OPB [facility] Stop: 07/18/24 20:59 Last Admin: 06/20/24 20:12 Dose: 1 drops Magnesium Oxide (Magnesium Oxide 400 Mg Tab) 400 mg PO QAM CRISTIAN Stop: 07/15/24 08:59 Last Admin: 06/21/24 08:26 Dose: 400 mg Melatonin (Melatonin 3 Mg Tab) 9 mg PO HS [facility] Stop: 07/04/24 20:59 Last Admin: 06/20/24 20:20 Dose: 9 mg Miscellaneous (Carbohydrates For Hypoglycemia ) 15 - 30 gm PO UD PRN PRN Reason: Hypoglycemia Protocol Stop: 07/17/24 21:30 Olanzapine (Olanzapine 5 Mg Tablet) 5 mg PO HS [facility] Stop: 07/12/24 20:59 Last Admin: 06/20/24 20:13 Dose: 5 mg Sennosides (Senna 8.6 Mg Tab) 8.6 mg PO BID PRN PRN Reason: Constipation Stop: 07/18/24 08:59
[2024-06-21] MEDS: HEPARIN SOD 5,000 UNIT/0.5 ML VIAL SQ SCH (10:58)
--- NOTE | 2024-06-22 10:44 | Hospitalist Progress Note ---
Date of Service June 22, 2024 Assessment & Plan (1) Acute drug-induced confusion: (2) Aphasia due to recent cerebrovascular accident (CVA): (3) Acute kidney injury superimposed on CKD: (4) Gross hematuria: Plan Mg Little is an 84y/o M with PMHx significant for DMII, diabetic polyneuropathy, alcohol use, arthritis, gout, HTN, GERD, Anderson's esophagus, diverticulitis, CKD stage III and recent acute ischemic left MCA stroke who presented to the ED via EMS from [facility] on 05/18/2024 secondary to increased lethargy. Pertinent recent hospital course: Patient was recently admitted to [facility] on 05/08/2024 with acute onset of right- sided weakness and was ultimately found to have an acute CVA due to left MCA M3 branch occlusion, received TNK at that time. Had worsening expressive aphasia, new right-sided facial drooping and right hemiparesis on 05/09/2024, repeat CTA revealed possible residual thrombus in the M2 segment therefore the patient was transferred to [facility]. At [facility], CTP showed slowed perfusion in the left hemisphere. DSA was performed and no LVO was found, but LICA stent was placed. MRI brain showed multiple small acute infarcts in the left cerebral hemisphere, the largest in the parietal lobe. These are in the middle anterior cerebral artery distribution. Small petechial hemorrhage in the left postcentral gyrus. TTE showing small PFO, unlikely contributory. Clinical course was complicated by hyperactive delirium which required Precedex which was eventually transitioned to scheduled Seroquel. LTM EEG showed slowing but no epileptiform activity. Initially required NG tube due to poor oral tolerance but with resolution of his delirium he began eating PO. He was evaluated by speech therapy at [facility] who recommended soft & bite-sized solids with thin liquids. Was then discharged to [facility]. While there, had Seroquel dose increased due to agitation (75mg HS) and presented to [facility] on 05/18/[address] from 05/18/2024 showed subacute infarcts similar in distribution to areas of infarct seen on brain MRI done 05/10/24 at [facility] per Epic records. Acute Drug-Induced Confusion, Delirium Severe Expressive Aphasia & Cognitive Changes 2/2 Recent CVA: Repeat head CT done 05/30/2024 negative, shows evolving changes of recent CVA but decreasing in size. Per psych recommendation seroquel discontinued. Zyprexa 5 mg QHS which was started on 06/11. Continue Abilify 5mg BID, Zyprexa 5mg HS. Continue DAPT and statin for recent CVA. Feel he is at his new medical baseline and would be best suited at SNF; he will likely need long-term placement after rehab stay. Daughter Marcia heavily involved with process. MICHAEL on CKD Stage III - RESOLVED: Baseline Cr ~1.4-1.7 per chart review. Creatinine 1.20 today Cr at baseline as of 06/10; continue to hold chlorthalidone. Follows with [facility] [Dr. Mackey]. HTN: All BP meds were on hold previously 2/2 relative hypotension. Losartan resumed on 06/04. His hydralazine was also resumed on 06/18. D/C chlorthalidone DMII: Chronic, stable. Hgb A1c was 7.2 on 05/09/2024. SSI on board, BSG on lower side, discontinue Lantus Hypomagnesemia: Mg 1.7 RESOLVED DVT Prophylaxis: SQ Heparin Code Status: DNR/DNI PCP: Art Cavazos DO Disposition:awaiting SNF placement. Patient's daughter/POA, Marcia, lives in [place]. She is working with to secure placement hopefully in [facility] [address] [facility] close to other relatives vs [place] near his brother. She can be reached at the following phone #: . I spent a total of 34 minutes coordinating, documenting, and providing care for this patient excluding time spent in the performance of separately billed services and time spent by another provider/QHP. This included personally reviewing all current laboratories and imaging studies, medical reconciliation, outpatient chart review and discussion with specialists. Admission and Anticipated Discharge Date Admission Date: May 20, 2024 Supervising Physician Co-Signing Physician Notes Attending Addendum: Case reviewed with the advanced practitioner. I have reviewed the advanced practitioner's documentation on the date of service referenced in note, and I agree with, and take responsibility for the plan of care. diagnoses and plan of care as per advanced practitioner's notes I spent a total of 20 minutes coordinating, documenting, and providing care for this patient, excluding time spent in the performance of separately billed services or time spent by another provider/QHP. Hussain Daniels MD Subjective Pt seen in 376-1. ROS difficult to obtain 2/2 mental status/cognition. Discussed with RITCHIE Zimmerman at bedside. Pt slept most of yesterday. HE didn't eat/drink well. Nurse helped clean up his facial hair. Pt appears comfortable Review of Systems Review of Systems: Unobtainable due to cognitive status Physical Exam Physical Exam: Gen: Tall, Thin, M, lying in bed, drowsy, arouses to tactile stimuli severe expressive aphasia HEENT: Normocephalic, atraumatic, conjunctivae moist, sclerae anicteric, mucous membranes dry. Lung: Clear to Auscultation bilaterally, no wheezes/rales/rhonchi Heart: Regular rate, regular rhythm, no murmurs, rubs, or gallops Abdomen: Soft, NT, ND +BS x 4 Extremities: No edema, RHP Skin: Warm, no rash, negative turgor. Results & Data Results & Data Vital Signs (Past 12 Hours) Vital Signs Temp Pulse Resp BP Pulse Ox O2 Del Method 06/22/24 07:59 36.9 C 74 16 110/66 95 Room Air Medications Administered Current Inpatient Medications Acetaminophen (Acetaminophen 325 Mg Tab) 650 mg PO Q4H PRN PRN Reason: Pain/Fever Stop: 07/12/24 11:47 Last Admin: 06/21/24 20:02 Dose: 650 mg Aripiprazole (Aripiprazole 5 Mg Tab) 5 mg PO BID CRISTIAN Stop: 07/04/24 20:59 Last Admin: 06/22/24 08:05 Dose: 5 mg Atorvastatin Calcium (Atorvastatin 40 Mg Tab) 40 mg PO HS CRISTIAN Stop: 07/18/24 20:59 Last Admin: 06/21/24 20:09 Dose: 40 mg Chlorhexidine Gluconate (Chlorhexidine Gluconate 0.12% 480 Ml) 15 ml MT BID CRISTIAN Stop: 07/18/24 08:59 Last Admin: 06/22/24 08:03 Dose: 15 ml Ciprofloxacin (Ciprofloxacin Hcl 0.3% Op Soln 2.5 Ml Btl) 2 drops OPL Q4H CRISTIAN Stop: 06/25/24 00:29 Last Admin: 06/22/24 08:03 Dose: 2 drops Cyanocobalamin (Cyanocobalamin (B-12) 500 Mcg Tablet) 1,000 mcg PO HS CRISTIAN Stop: 07/18/24 20:59 Last Admin: 06/21/24 20:09 Dose: 1,000 mcg Dextrose (Dextrose 50% 50 Ml Syringe) 25 - 50 ml IV UD PRN; Protocol PRN Reason: Hypoglycemia Protocol Stop: 07/17/24 21:30 Ferrous Sulfate (Ferrous Sulfate 325 Mg/7.4 Ml Udp) 325 mg PO QPM CRISTIAN Stop: 07/04/24 20:59 Last Admin: 06/21/24 20:09 Dose: 325 mg Glucagon (Glucagon For Inj 1 Mg Vial) 1 mg SQ UD PRN; Protocol PRN Reason: Hypoglycemia Protocol Stop: 07/17/24 21:30 Glucose (Glucose 40% Gel 15 Gm Tube) 15 - 30 gm PO UD PRN; Protocol PRN Reason: Hypoglycemia Protocol Stop: 07/17/24 21:30 Glucose (Glucose 10 Tab/Tube) 4 - 8 tab PO UD PRN; Protocol PRN Reason: Hypoglycemia Protocol Stop: 07/17/24 21:30 Heparin Sodium (Porcine) (Heparin Sod 5,000 Unit/0.5 Ml Vial) 5,000 units SQ Q12 CRISTIAN Stop: 07/21/24 10:29 Last Admin: 06/22/24 08:14 Dose: 5,000 units Hydralazine HCl (Hydralazine 10 Mg Tab) 10 mg PO BID CRISTIAN Stop: 07/18/24 08:59 Last Admin: 06/22/24 08:06 Dose: 10 mg Insulin Aspart (Insulin Aspart Per Unit Charge) 0 units SC ACHS CRISTIAN Stop: 06/24/24 16:29 Last Admin: 06/22/24 08:35 Dose: Not Given Latanoprost (Latanoprost 0.005% Op Soln 2.5 Ml Btl) 1 drops OPB HS CRISTIAN Stop: 07/18/24 20:59 Last Admin: 06/21/24 20:12 Dose: 1 drops Magnesium Oxide (Magnesium Oxide 400 Mg Tab) 400 mg PO QAM CRISTIAN Stop: 07/15/24 08:59 Last Admin: 06/22/24 08:06 Dose: 400 mg Melatonin (Melatonin 3 Mg Tab) 9 mg PO HS CRISTIAN Stop: 07/04/24 20:59 Last Admin: 06/21/24 20:02 Dose: 9 mg Miscellaneous (Carbohydrates For Hypoglycemia ) 15 - 30 gm PO UD PRN PRN Reason: Hypoglycemia Protocol Stop: 07/17/24 21:30 Olanzapine (Olanzapine 5 Mg Tablet) 5 mg PO HS CRISTIAN Stop: 07/12/24 20:59 Last Admin: 06/21/24 20:09 Dose: 5 mg Sennosides (Senna 8.6 Mg Tab) 8.6 mg PO BID PRN PRN Reason: Constipation Stop: 07/18/24 08:59
--- NOTE | 2024-06-23 07:35 | Hospitalist Progress Note ---
Date of Service June 23, 2024 Assessment & Plan (1) Acute drug-induced confusion: (2) Aphasia due to recent cerebrovascular accident (CVA): Plan Mg Little is an 84y/o M with PMHx significant for DMII, diabetic polyneuropathy, alcohol use, arthritis, gout, HTN, GERD, Anderson's esophagus, diverticulitis, CKD stage III and recent acute ischemic left MCA stroke who presented to the ED via EMS from [facility] on 05/18/2024 secondary to increased lethargy. Pertinent recent hospital course: Patient was recently admitted to [facility] on 05/08/2024 with acute onset of right- sided weakness and was ultimately found to have an acute CVA due to left MCA M3 branch occlusion, received TNK at that time. Had worsening expressive aphasia, new right-sided facial drooping and right hemiparesis on 05/09/2024, repeat CTA revealed possible residual thrombus in the M2 segment therefore the patient was transferred to [facility]. At [facility], CTP showed slowed perfusion in the left hemisphere. DSA was performed and no LVO was found, but LICA stent was placed. MRI brain showed multiple small acute infarcts in the left cerebral hemisphere, the largest in the parietal lobe. These are in the middle anterior cerebral artery distribution. Small petechial hemorrhage in the left postcentral gyrus. TTE showing small PFO, unlikely contributory. Clinical course was complicated by hyperactive delirium which required Precedex which was eventually transitioned to scheduled Seroquel. LTM EEG showed slowing but no epileptiform activity. Initially required NG tube due to poor oral tolerance but with resolution of his delirium he began eating PO. He was evaluated by speech therapy at [facility] who recommended soft & bite-sized solids with thin liquids. Was then discharged to [facility]. While there, had Seroquel dose increased due to agitation (75mg HS) and presented to [facility] on 05/18/[address] from 05/18/2024 showed subacute infarcts similar in distribution to areas of infarct seen on brain MRI done 05/10/24 at [facility] per [facility] records. Acute Drug-Induced Confusion, Delirium Severe Expressive Aphasia & Cognitive Changes 2/2 Recent CVA: Repeat head CT on 05/30 negative, shows evolving changes of recent CVA but decreasing in size. Seroquel discontinued per psych's recommendation. Zyprexa 5mg QHS started on 06/11. Continue Abilify 5mg BID as well. Continue DAPT and statin for recent CVA. Feel he is at his new medical baseline and would be best suited at SNF; he will likely need long-term placement after rehab stay. Delirium precautions. 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 Bruising noted on BLE, R hip region 2/2 restlessness/hitting bed rails. Voltaren ordered for R hip. Patient's daughter, Marcia, is heavily involved with the placement process. She can be reached at the following phone #: . Will continue to update her routinely. MICHAEL on CKD Stage III - RESOLVED: Baseline Cr ~1.4-1.7 per chart review. Cr was previously elevated at 1.85 on admission, trended up to 2.57 on 05/22/2024. Cr at baseline as of 06/10; holding chlorthalidone. Follows with [facility] [Dr. Mackey]. HTN: All BP meds were previously on hold 2/2 relative hypotension. Losartan resumed on 06/04. Hydralazine resumed on 06/18. Likely can D/C chlorthalidone at discharge if her remains normotensive. DMII: Chronic, stable. Hgb A1c was 7.2 on 05/09/2024. SSI on board, BSG on lower side therefore Lantus D/C on 06/21. DVT Prophylaxis: SQ Heparin Code Status: DNR/DNI - No Resuscitation PCP: Art Cavazos, Disposition: Awaiting SNF placement - Looking for options closer to [facility] as patient's brother lives near there. Marcia lives in [place] but would like him to be close to other relatives whom live in [place]. Per CM's note yesterday, Marcia [facility] [place]. Patient seen in collaboration with Dr. Redding. Please see addendum. I spent a total of 30 minutes coordinating, documenting, and providing care for this patient excluding time spent in the performance of separately billed services or time spent by another provider/QHP. This included personally reviewing all current laboratories and imaging studies, medical reconciliation, outpatient chart review and discussion with specialists. This chart was completed in part utilizing Speech Voice Recognition Software. Grammatical errors, random word insertions, pronoun errors, and incomplete sentences are an occasional consequence of this system due to software limitations, ambient noise, and hardware issues. Any formal questions or concerns about the content, text, or information contained within the body of this dictation should be directly addressed to the provider for clarification. Admission and Anticipated Discharge Date Admission Date: May 20, 2024 Supervising Physician Co-Signing Physician Notes I have seen and discussed the case with the collaborating advanced practitioner. I agree with the above H&P. I have reviewed and confirmed the patients medical history, the findings on physical examination, and the patients diagnosis and treatment plan with Jaylon PRESLEY and agree with the information documented. Patient evaluated at bedside Dysarthria noted, no distress overall apparent exam notable for chronically appearing gentleman right side hemiplegia Pending dispo to snf I spent a total of 15 minutes coordinating, documenting, and providing care for this patient excluding time spent in the performance of separately billed s ervices. All of the aforementioned completed outside of collaborating with the assigned advanced practitioner for a full treatment plan. I have reviewed the advanced practitioner's documentation, and I agree with, and take responsibility for the plan of care Subjective Patient seen and examined at bedside in room N376-1. NAEO. He was calm and appeared comfortable when I entered the room. He was lying in bed with his gown partially on. Discussed patient with RITCHIE Zimmerman. He ate all of his breakfast this morning and has been cooperative with staff. Alert to self only; notable post- stroke aphasia/garbled speech however he does well with direct yes/no questioning. He responded "yes" when asked if he was comfortable. Full ROS difficult to obtain otherwise due to mental status/cognition. Review of Systems Review of Systems: Unable to properly obtain 2/2 patient's cognitive/mentation status. Physical Exam Physical Exam: General: Tall/thin M, laying in bed, severe expressive aphasia, A&O to self mostly but does answer to direct yes/no questioning. HEENT: Normocephalic, atraumatic. Conjunctivae normal, anicteric sclerae. Mucous membranes dry. Respiratory: Normal respiratory effort, lungs clear to auscultation, no wheeze/rales/rhonchi. No accessory muscle use. Cardiovascular: Regular rate, rhythm, normal peripheral pulses, no BLE edema. Vessels: No JVD. Results & Data Results & Data Vital Signs (Past 12 Hours) Vital Signs Temp Pulse Pulse Resp BP Pulse Ox O2 Del Method 06/23/24 07:29 36.5 C 92 H 16 120/62 94 Room Air 06/22/24 20:00 Room Air 06/22/24 20:00 36.4 C L 74 20 112/69 95 Room Air
[2024-06-23] MEDS: DICLOFENAC SOD 1% GEL 100 GM TUBE EXT SCH (20:53)
--- NOTE | 2024-06-24 07:38 | Hospitalist Progress Note ---
<Statement entered by Avery Hinojosa, DO - 06/24/24 16:38> I have seen and examined the patient and have discussed the case with the advance practice provider. I have reviewed the advanced practitioner's documentation, and I agree with, and take responsibility for that plan of care. No acute issues reported over last 24 hours. Plan of care as outlined below I spent a total of 10 minutes coordinating, documenting, and providing care for this patient excluding time spent by another provider/QHP. Date of Service June 24, 2024 Assessment & Plan (1) Acute drug-induced confusion: (2) Aphasia due to recent cerebrovascular accident (CVA): Plan Mg Little is an 84y/o M with PMHx significant for DMII, diabetic polyneuropathy, alcohol use, arthritis, gout, HTN, GERD, Anderson's esophagus, diverticulitis, CKD stage III and recent acute ischemic left MCA stroke who presented to the ED via EMS from [facility] on 05/18/2024 secondary to increased lethargy. Pertinent recent hospital course: Patient was recently admitted to [facility] on 05/08/2024 with acute onset of right- sided weakness and was ultimately found to have an acute CVA due to left MCA M3 branch occlusion, received TNK at that time. Had worsening expressive aphasia, new right-sided facial drooping and right hemiparesis on 05/09/2024, repeat CTA revealed possible residual thrombus in the M2 segment therefore the patient was transferred to [facility]. At [facility], CTP showed slowed perfusion in the left hemisphere. DSA was performed and no LVO was found, but LICA stent was placed. MRI brain showed multiple small acute infarcts in the left cerebral hemisphere, the largest in the parietal lobe. These are in the middle anterior cerebral artery distribution. Small petechial hemorrhage in the left postcentral gyrus. TTE showing small PFO, unlikely contributory. Clinical course was complicated by hyperactive delirium which required Precedex which was eventually transitioned to scheduled Seroquel. LTM EEG showed slowing but no epileptiform activity. Initially required NG tube due to poor oral tolerance but with resolution of his delirium he began eating PO. He was evaluated by speech therapy at [facility] who recommended soft & bite-sized solids with thin liquids. Was then discharged to [facility]. While there, had Seroquel dose increased due to agitation (75mg HS) and presented to [facility] on 05/18/[address] from 05/18/2024 showed subacute infarcts similar in distribution to areas of infarct seen on brain MRI done 05/10/24 at [facility] per [facility] records. Acute Drug-Induced Confusion, Delirium Severe Expressive Aphasia & Cognitive Changes 2/2 Recent CVA: Repeat head CT on 05/30 negative, shows evolving changes of recent CVA but decreasing in size. Seroquel discontinued per psych's recommendation. Zyprexa 5mg QHS started on 06/11. Continue Abilify 5mg BID as well. Continue DAPT and statin for recent CVA. Feel he is at his new medical baseline and would be best suited at SNF; he will likely need long-term placement after rehab stay. Delirium precautions. 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 Bruising noted on BLE, R hip region 2/2 restlessness/hitting bed rails. Voltaren ordered for R hip. Patient's daughter, Marcia, is heavily involved with the placement process. She can be reached at the following phone #: . Spoke with her over the phone today. MICHAEL on CKD Stage III - RESOLVED: Baseline Cr ~1.4-1.7 per chart review. Cr was previously elevated at 1.85 on admission, trended up to 2.57 on 05/22/2024. Cr at baseline as of 06/10; holding chlorthalidone. Follows with [facility] [Dr. Mackey]. HTN: All BP meds were previously on hold 2/2 relative hypotension. Losartan resumed on 06/04. Hydralazine resumed on 06/18. BP stable. Likely can D/C chlorthalidone at discharge if her remains normotensive. DMII: Chronic, stable. Hgb A1c was 7.2 on 05/09/2024. SSI on board, BSG on lower side therefore Lantus D/C on 06/21. DVT Prophylaxis: SQ Heparin Code Status: DNR/DNI - No Resuscitation PCP: Art Cavazos DO Disposition: Stable for discharge, still awaiting placement. CM and patient's daughter, Marcia, heavily involved with placement process. Patient seen in collaboration with Dr. Hinojosa. Please see addendum. I spent a total of 25 minutes coordinating, documenting, and providing care for this patient excluding time spent in the performance of separately billed services or time spent by another provider/QHP. This included personally reviewing all current laboratories and imaging studies, medical reconciliation, outpatient chart review and discussion with specialists. This chart was completed in part utilizing Speech Voice Recognition Software. Grammatical errors, random word insertions, pronoun errors, and incomplete sentences are an occasional consequence of this system due to software limitations, ambient noise, and hardware issues. Any formal questions or concerns about the content, text, or information contained within the body of this dictation should be directly addressed to the provider for clarification. Admission and Anticipated Discharge Date Admission Date: May 20, 2024 Subjective Patient seen and examined at bedside in room N376-1. [facility]. He was mostly sleeping during my evaluation this morning. Ate some of his breakfast today. Review of Systems Review of Systems: Unable to properly obtain 2/2 patient's cognitive/mentation status. Physical Exam Physical Exam: General: Tall/thin M, laying in bed, severe expressive aphasia/garbled speech, A&O to self. HEENT: Normocephalic, atraumatic. Conjunctivae normal, anicteric sclerae. Mucous membranes somewhat dry. Respiratory: Normal respiratory effort, lungs clear to auscultation, no wheeze/rales/rhonchi. No accessory muscle use. Cardiovascular: Regular rate, rhythm, normal peripheral pulses, no BLE edema. Vessels: No JVD. Results & Data Results & Data Vital Signs (Past 12 Hours) Vital Signs Temp Pulse Resp BP Pulse Ox O2 Del Method 06/24/24 07:02 36.6 C 76 18 108/73 97 Room Air
--- NOTE | 2024-06-25 07:16 | Hospitalist Progress Note ---
<Statement entered by Avery Hinojosa, - 06/25/24 12:42> I have seen and examined the patient and have discussed the case with the advance practice provider. I have reviewed the advanced practitioner's documentation, and I agree with, and take responsibility for that plan of care. Patient awake and much more interactive this morning. Able to answer some simple questions. Denied any concerns. Continue with current plan of care and to continue to pursue placement options Communication with case management, they are expanding their search to the [facility] area I spent a total of 15 minutes coordinating, documenting, and providing care for this patient excluding time spent by another provider/QHP. Date of Service June 25, 2024 Assessment & Plan (1) Acute drug-induced confusion: (2) Aphasia due to recent cerebrovascular accident (CVA): Plan Mg Little is an 84y/o M with PMHx significant for DMII, diabetic polyneuropathy, alcohol use, arthritis, gout, HTN, GERD, Anderson's esophagus, diverticulitis, CKD stage III and recent acute ischemic left MCA stroke who presented to the ED via EMS from [facility] on 05/18/2024 secondary to increased lethargy. Pertinent recent hospital course: Patient was recently admitted to [facility] on 05/08/2024 with acute onset of right- sided weakness and was ultimately found to have an acute CVA due to left MCA M3 branch occlusion, received TNK at that time. Had worsening expressive aphasia, new right-sided facial drooping and right hemiparesis on 05/09/2024, repeat CTA revealed possible residual thrombus in the M2 segment therefore the patient was transferred to [facility]. At [facility], CTP showed slowed perfusion in the left hemisphere. DSA was performed and no LVO was found, but LICA stent was placed. MRI brain showed multiple small acute infarcts in the left cerebral hemisphere, the largest in the parietal lobe. These are in the middle anterior cerebral artery distribution. Small petechial hemorrhage in the left postcentral gyrus. TTE showing small PFO, unlikely contributory. Clinical course was complicated by hyperactive delirium which required Precedex which was eventually transitioned to scheduled Seroquel. LTM EEG showed slowing but no epileptiform activity. Initially required NG tube due to poor oral tolerance but with resolution of his delirium he began eating PO. He was evaluated by speech therapy at [facility] who recommended soft & bite-sized solids with thin liquids. Was then discharged to [facility]. While there, had Seroquel dose increased due to agitation (75mg HS) and presented to [facility] on 05/18/[address] from 05/18/2024 showed subacute infarcts similar in distribution to areas of infarct seen on brain MRI done 05/10/24 at [facility] per [facility] records. Acute Drug-Induced Confusion, Delirium Severe Expressive Aphasia & Cognitive Changes 2/2 Recent CVA: Repeat head CT on 05/30 negative, shows evolving changes of recent CVA but decreasing in size. Seroquel discontinued per psych's recommendation. Zyprexa 5mg QHS started on 06/11. Continue Abilify 5mg BID as well. Continue DAPT and statin for recent CVA. Feel he is at his new medical baseline and would be best suited at SNF; he will likely need long-term placement after rehab stay. Delirium precautions. 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 Bruising noted on BLE, R hip region 2/2 restlessness/hitting bed rails. Voltaren ordered for R hip. Patient's daughter, Marcia, is heavily involved with the placement process. She can be reached at the following phone #: . Spoke with Marcia yesterday. MICHAEL on CKD Stage III - RESOLVED: Baseline Cr ~1.4-1.7 per chart review. Cr was previously elevated at 1.85 on admission, trended up to 2.57 on 05/22/2024. Cr at baseline as of 06/10; holding chlorthalidone. Follows with [facility] [Dr. Mackey]. HTN: All BP meds were previously on hold 2/2 relative hypotension. Losartan resumed on 06/04. Hydralazine resumed on 06/18 - however holding dose this morning 2/2 hypotension. Likely can D/C chlorthalidone at discharge if her remains normotensive. DMII: Chronic, stable. Hgb A1c was 7.2 on 05/09/2024. SSI on board, BSG on lower side therefore Lantus D/C on 06/21. DVT Prophylaxis: SQ Heparin Code Status: DNR/DNI - No Resuscitation PCP: Art Cavazos DO Disposition: Stable for discharge, still awaiting placement. CM and patient's daughter, Marcia, heavily involved with placement process. Patient seen in collaboration with Dr. Hinojosa. Please see addendum. I spent a total of 25 minutes coordinating, documenting, and providing care for this patient excluding time spent in the performance of separately billed services or time spent by another provider/QHP. This included personally reviewing all current laboratories and imaging studies, medical reconciliation, outpatient chart review and discussion with specialists. This chart was completed in part utilizing Speech Voice Recognition Software. Grammatical errors, random word insertions, pronoun errors, and incomplete sentences are an occasional consequence of this system due to software limitations, ambient noise, and hardware issues. Any formal questions or concerns about the content, text, or information contained within the body of this dictation should be directly addressed to the provider for clarification. Admission and Anticipated Discharge Date Admission Date: May 20, 2024 Subjective Patient seen and examined at bedside in room N3-1. NAEO. Quite sleepy this morning but did take all of his medications in pudding. Waxing/waning alertness. Holding dose of hydralazine this morning 2/2 hypotension. Discussed care with RITCHIE Cooper. Continuing to encourage oral intake. Review of Systems Review of Systems: Unable to properly obtain 2/2 patient's cognitive/mentation status. Physical Exam Physical Exam: General: Tall/thin M, laying in bed, severe expressive aphasia/garbled speech, A&O to self. Quite sleepy. HEENT: Normocephalic, atraumatic. Conjunctivae normal, anicteric sclerae. Mucous membranes mildly dry. Respiratory: Normal respiratory effort/lungs clear to auscultation, no wheeze/rales/rhonchi. No accessory muscle use. Cardiovascular: Regular rate, rhythm, normal peripheral pulses, no BLE edema. Vessels: No JVD. Results & Data Results & Data Vital Signs (Past 12 Hours) Vital Signs Temp Pulse Resp BP Pulse Ox O2 Del Method 06/24/24 20:00 Room Air 06/24/24 19:58 36.7 C 82 16 113/67 91 Room Air
--- NOTE | 2024-06-26 09:30 | Hospitalist Progress Note ---
Date of Service June 26, 2024 Assessment & Plan (1) Acute drug-induced confusion: (2) Aphasia due to recent cerebrovascular accident (CVA): Plan Mg Little is an 84y/o M with PMHx significant for DMII, diabetic polyneuropathy, alcohol use, arthritis, gout, HTN, GERD, Anderson's esophagus, diverticulitis, CKD stage III and recent acute ischemic left MCA stroke who presented to the ED via EMS from [facility] on 05/18/2024 secondary to increased lethargy. Pertinent recent hospital course: Patient was recently admitted to [facility] on 05/08/2024 with acute onset of right- sided weakness and was ultimately found to have an acute CVA due to left MCA M3 branch occlusion, received TNK at that time. Had worsening expressive aphasia, new right-sided facial drooping and right hemiparesis on 05/09/2024, repeat CTA revealed possible residual thrombus in the M2 segment therefore the patient was transferred to [facility]. At [facility], CTP showed slowed perfusion in the left hemisphere. DSA was performed and no LVO was found, but LICA stent was placed. MRI brain showed multiple small acute infarcts in the left cerebral hemisphere, the largest in the parietal lobe. These are in the middle anterior cerebral artery distribution. Small petechial hemorrhage in the left postcentral gyrus. TTE showing small PFO, unlikely contributory. Clinical course was complicated by hyperactive delirium which required Precedex which was eventually transitioned to scheduled Seroquel. LTM EEG showed slowing but no epileptiform activity. Initially required NG tube due to poor oral tolerance but with resolution of his delirium he began eating PO. He was evaluated by speech therapy at [facility] who recommended soft & bite-sized solids with thin liquids. Was then discharged to [facility]. While there, had Seroquel dose increased due to agitation (75mg HS) and presented to [facility] on 05/18/[address] from 05/18/2024 showed subacute infarcts similar in distribution to areas of infarct seen on brain MRI done 05/10/24 at [facility] per [facility] records. Acute Drug-Induced Confusion, Delirium Severe Expressive Aphasia & Cognitive Changes 2/2 Recent CVA: Currently maintaining on Zyprexa 5mg QHS started on 06/11. Continue Abilify 5mg BID as well. Continue DAPT and statin for recent CVA. Unfortunately unlikely to make significant recovery at this point, SNF placement pending MICHAEL on CKD Stage III - RESOLVED: Baseline Cr ~1.4-1.7 per chart review. Resolved Chlorthalidone discontinued HTN: All BP meds were previously on hold 2/2 relative hypotension. Losartan resumed on 06/04. Hydralazine resumed on 06/18 - however holding dose this morning 2/2 hypotension. D/C Chlorthalidone at d/c DMII: Chronic, stable. Hgb A1c was 7.2 on 05/09/2024. Insulin d/c 2/2 lower bsg, given condition/age tight control not recommended DVT Prophylaxis: SQ Heparin Code Status: DNR/DNI PCP: Art Cavazos, Disposition: Stable for discharge, still awaiting placement. CM and patient's daughter, Marcia, heavily involved with placement process. Minerva # . Patient seen in collaboration with Dr. Hinojosa. Please see addendum. I spent a total of 20 minutes coordinating, documenting, and providing care for this patient excluding time spent in the performance of separately billed services or time spent by another provider/QHP. This included personally reviewing all current laboratories and imaging studies, medical reconciliation, outpatient chart review and discussion with specialists. Admission and Anticipated Discharge Date Admission Date: May 20, 2024 Subjective Pt seen in 376-1. Unable to obtain ROS due to cognition. He is resting comfortably Review of Systems Review of Systems: All systems reviewed & are unremarkable except as noted in HPI & below Physical Exam Physical Exam: Gen: Tall, Thin, M, lying in bed, resting in bed HEENT: Normocephalic, atraumatic, conjunctivae moist, sclerae anicteric, mucous membranes dry. Lung: Clear to Auscultation bilaterally, no wheezes/rales/rhonchi Heart: Regular rate, regular rhythm, no murmurs, rubs, or gallops Abdomen: Soft, NT, ND +BS x 4 Extremities: No edema, RHP Skin: Warm, no rash, negative turgor. Results & Data Results & Data Vital Signs (Past 12 Hours) Vital Signs Temp Pulse Resp BP Pulse Ox O2 Del Method 06/26/24 08:31 36.7 C 76 16 154/74 H 95 Room Air 06/26/24 07:15 Room Air 06/25/24 22:12 Room Air Medications Administered Current Inpatient Medications Acetaminophen (Acetaminophen 325 Mg Tab) 650 mg PO Q4H PRN PRN Reason: Pain/Fever Stop: 07/12/24 11:47 Last Admin: 06/25/24 20:26 Dose: 650 mg Aripiprazole (Aripiprazole 5 Mg Tab) 5 mg PO BID [facility] Stop: 07/04/24 20:59 Last Admin: 06/26/24 08:51 Dose: 5 mg Atorvastatin Calcium (Atorvastatin 40 Mg Tab) 40 mg PO HS [facility] Stop: 07/18/24 20:59 Last Admin: 06/25/24 20:20 Dose: 40 mg Chlorhexidine Gluconate (Chlorhexidine Gluconate 0.12% 480 Ml) 15 ml MT BID [facility] Stop: 07/18/24 08:59 Last Admin: 06/26/24 09:00 Dose: Not Given Cyanocobalamin (Cyanocobalamin (B-12) 500 Mcg Tablet) 1,000 mcg PO HS [facility] Stop: 07/18/24 20:59 Last Admin: 06/25/24 20:21 Dose: 1,000 mcg Dextrose (Dextrose 50% 50 Ml Syringe) 25 - 50 ml IV UD PRN; Protocol PRN Reason: Hypoglycemia Protocol Stop: 07/17/24 21:30 Diclofenac Sodium (Diclofenac Sod 1% Gel 100 Gm Tube) 2 gm EXT BID [facility]; Protocol Stop: 07/23/24 20:59 Last Admin: 06/26/24 08:51 Dose: 2 gm Ferrous Sulfate (Ferrous Sulfate 325 Mg/7.4 Ml Udp) 325 mg PO QPM [facility] Stop: 07/04/24 20:59 Last Admin: 06/25/24 20:26 Dose: 325 mg Glucagon (Glucagon For Inj 1 Mg Vial) 1 mg SQ UD PRN; Protocol PRN Reason: Hypoglycemia Protocol Stop: 07/17/24 21:30 Glucose (Glucose 40% Gel 15 Gm Tube) 15 - 30 gm PO UD PRN; Protocol PRN Reason: Hypoglycemia Protocol Stop: 07/17/24 21:30 Glucose (Glucose 10 Tab/Tube) 4 - 8 tab PO UD PRN; Protocol PRN Reason: Hypoglycemia Protocol Stop: 07/17/24 21:30 Heparin Sodium (Porcine) (Heparin Sod 5,000 Unit/0.5 Ml Vial) 5,000 units SQ Q12 [facility] Stop: 07/21/24 10:29 Last Admin: 06/26/24 08:54 Dose: 5,000 units Hydralazine HCl (Hydralazine 10 Mg Tab) 10 mg PO BID [facility] Stop: 07/18/24 08:59 Last Admin: 06/26/24 08:51 Dose: 10 mg Latanoprost (Latanoprost 0.005% Op Soln 2.5 Ml Btl) 1 drops OPB [facility] Stop: 07/18/24 20:59 Last Admin: 06/25/24 20:22 Dose: 1 drops Magnesium Oxide (Magnesium Oxide 400 Mg Tab) 400 mg PO QAM [facility] Stop: 07/15/24 08:59 Last Admin: 06/26/24 08:51 Dose: 400 mg Melatonin (Melatonin 3 Mg Tab) 9 mg PO HS [facility] Stop: 07/04/24 20:59 Last Admin: 06/25/24 20:26 Dose: 9 mg Miscellaneous (Carbohydrates For Hypoglycemia ) 15 - 30 gm PO UD PRN PRN Reason: Hypoglycemia Protocol Stop: 07/17/24 21:30 Olanzapine (Olanzapine 5 Mg Tablet) 5 mg PO [facility] Stop: 07/12/24 20:59 Last Admin: 06/25/24 20:22 Dose: 5 mg Sennosides (Senna 8.6 Mg Tab) 8.6 mg PO BID PRN PRN Reason: Constipation Stop: 07/18/24 08:59
--- NOTE | 2024-06-27 10:14 | Hospitalist Progress Note ---
Date of Service June 27, 2024 Assessment & Plan (1) Acute drug-induced confusion: (2) Aphasia due to recent cerebrovascular accident (CVA): Plan Mg Little is an 84y/o M with PMHx significant for DMII, diabetic polyneuropathy, alcohol use, arthritis, gout, HTN, GERD, Anderson's esophagus, diverticulitis, CKD stage III and recent acute ischemic left MCA stroke who presented to the ED via EMS from [facility] on 05/18/2024 secondary to increased lethargy. Pertinent recent hospital course: Patient was recently admitted to [facility] on 05/08/2024 with acute onset of right- sided weakness and was ultimately found to have an acute CVA due to left MCA M3 branch occlusion, received TNK at that time. Had worsening expressive aphasia, new right-sided facial drooping and right hemiparesis on 05/09/2024, repeat CTA revealed possible residual thrombus in the M2 segment therefore the patient was transferred to [facility]. At [facility], CTP showed slowed perfusion in the left hemisphere. DSA was performed and no LVO was found, but LICA stent was placed. MRI brain showed multiple small acute infarcts in the left cerebral hemisphere, the largest in the parietal lobe. These are in the middle anterior cerebral artery distribution. Small petechial hemorrhage in the left postcentral gyrus. TTE showing small PFO, unlikely contributory. Clinical course was complicated by hyperactive delirium which required Precedex which was eventually transitioned to scheduled Seroquel. LTM EEG showed slowing but no epileptiform activity. Initially required NG tube due to poor oral tolerance but with resolution of his delirium he began eating PO. He was evaluated by speech therapy at [facility] who recommended soft & bite-sized solids with thin liquids. Was then discharged to [facility]. While there, had Seroquel dose increased due to agitation (75mg HS) and presented to [facility] on 05/18/[address] from 05/18/2024 showed subacute infarcts similar in distribution to areas of infarct seen on brain MRI done 05/10/24 at [facility] per [facility] records. Acute Drug-Induced Confusion, Delirium Severe Expressive Aphasia & Cognitive Changes 2/2 Recent CVA: Currently maintaining on Zyprexa 5mg QHS started on 06/11. Continue Abilify 5mg BID as well. Continue DAPT and statin for recent CVA. Unfortunately unlikely to make significant recovery at this point, SNF placement pending MICHAEL on CKD Stage III - RESOLVED: Baseline Cr ~1.4-1.7 per chart review. Resolved Chlorthalidone discontinued HTN: BP stable, currently only on hydralazine 10mg bid, bp on low normal side, parameters placed, could consider d/c and monitor BP if remains on lower side losartan/chlorthalidone d/c DMII: Chronic, stable. Hgb A1c was 7.2 on 05/09/2024. Insulin d/c 2/2 lower bsg, given condition/age tight control not recommended DVT Prophylaxis: SQ Heparin Code Status: DNR/DNI PCP: Art Cavazos, Disposition: Stable for discharge, still awaiting placement. CM and patient's daughter, Marcia, heavily involved with placement process. Minerva # . I spent a total of 20 minutes coordinating, documenting, and providing care for this patient excluding time spent in the performance of separately billed services or time spent by another provider/QHP. This included personally reviewing all current laboratories and imaging studies, medical reconciliation, outpatient chart review and discussion with specialists. Admission and Anticipated Discharge Date Admission Date: May 20, 2024 Subjective Pt seen in 376-1. Unable to obtain ROS due to cognition. He is resting comfortably Nurse reports Bp 113/67 and requesting a hold on his hydralazine. Nurse reports pt ate breakfast this morning and has no concerns. Review of Systems Review of Systems: Unobtainable due to cognitive status Physical Exam Physical Exam: Gen: Tall, Thin, M, lying in bed, resting in bed HEENT: Normocephalic, atraumatic, conjunctivae moist, sclerae anicteric, mucous membranes dry. Lung: Clear to Auscultation bilaterally, no wheezes/rales/rhonchi Heart: Regular rate, regular rhythm, no murmurs, rubs, or gallops Abdomen: Soft, NT, ND +BS x 4 Extremities: No edema, RHP Skin: Warm, no rash, negative turgor. Results & Data Results & Data Vital Signs (Past 12 Hours) Vital Signs Temp Pulse Resp BP Pulse Ox O2 Del Method 06/27/24 08:50 36.3 C L 85 16 113/67 95 Room Air Medications Administered Current Inpatient Medications Acetaminophen (Acetaminophen 325 Mg Tab) 650 mg PO Q4H PRN PRN Reason: Pain/Fever Stop: 07/12/24 11:47 Last Admin: 06/25/24 20:26 Dose: 650 mg Aripiprazole (Aripiprazole 5 Mg Tab) 5 mg PO BID [facility] Stop: 07/04/24 20:59 Last Admin: 06/27/24 10:00 Dose: 5 mg Atorvastatin Calcium (Atorvastatin 40 Mg Tab) 40 mg PO [facility] Stop: 07/18/24 20:59 Last Admin: 06/26/24 19:45 Dose: 40 mg Chlorhexidine Gluconate (Chlorhexidine Gluconate 0.12% 480 Ml) 15 ml MT BID [facility] Stop: 07/18/24 08:59 Last Admin: 06/27/24 10:06 Dose: Not Given Cyanocobalamin (Cyanocobalamin (B-12) 500 Mcg Tablet) 1,000 mcg PO [facility] Stop: 07/18/24 20:59 Last Admin: 06/26/24 19:46 Dose: 1,000 mcg Dextrose (Dextrose 50% 50 Ml Syringe) 25 - 50 ml IV UD PRN; Protocol PRN Reason: Hypoglycemia Protocol Stop: 07/17/24 21:30 Diclofenac Sodium (Diclofenac Sod 1% Gel 100 Gm Tube) 2 gm EXT BID [facility]; Protocol Stop: 07/23/24 20:59 Last Admin: 06/27/24 10:01 Dose: 2 gm Ferrous Sulfate (Ferrous Sulfate 325 Mg/7.4 Ml Udp) 325 mg PO QPM [facility] Stop: 07/04/24 20:59 Last Admin: 06/26/24 20:18 Dose: 325 mg Glucagon (Glucagon For Inj 1 Mg Vial) 1 mg SQ UD PRN; Protocol PRN Reason: Hypoglycemia Protocol Stop: 07/17/24 21:30 Glucose (Glucose 40% Gel 15 Gm Tube) 15 - 30 gm PO UD PRN; Protocol PRN Reason: Hypoglycemia Protocol Stop: 07/17/24 21:30 Glucose (Glucose 10 Tab/Tube) 4 - 8 tab PO UD PRN; Protocol PRN Reason: Hypoglycemia Protocol Stop: 07/17/24 21:30 Heparin Sodium (Porcine) (Heparin Sod 5,000 Unit/0.5 Ml Vial) 5,000 units SQ Q12 [facility] Stop: 07/21/24 10:29 Last Admin: 06/27/24 10:01 Dose: 5,000 units Hydralazine HCl (Hydralazine 10 Mg Tab) 10 mg PO BID [facility] Stop: 07/18/24 08:59 Last Admin: 06/27/24 10:00 Dose: Not Given Latanoprost (Latanoprost 0.005% Op Soln 2.5 Ml Btl) 1 drops OPB HS [facility] Stop: 07/18/24 20:59 Last Admin: 06/26/24 19:44 Dose: 1 drops Magnesium Oxide (Magnesium Oxide 400 Mg Tab) 400 mg PO QAM [facility] Stop: 07/15/24 08:59 Last Admin: 06/27/24 10:00 Dose: 400 mg Melatonin (Melatonin 3 Mg Tab) 9 mg PO HS [facility] Stop: 07/04/24 20:59 Last Admin: 06/26/24 19:43 Dose: 9 mg Miscellaneous (Carbohydrates For Hypoglycemia ) 15 - 30 gm PO UD PRN PRN Reason: Hypoglycemia Protocol Stop: 07/17/24 21:30 Olanzapine (Olanzapine 5 Mg Tablet) 5 mg PO [facility] Stop: 07/12/24 20:59 Last Admin: 06/26/24 19:44 Dose: 5 mg Sennosides (Senna 8.6 Mg Tab) 8.6 mg PO BID PRN PRN Reason: Constipation Stop: 07/18/24 08:59
[2024-06-27] MEDS: CLOPIDOGREL BISULFATE 75 MG TAB PO SCH (11:07)
[2024-06-27] MEDS: ASPIRIN 81 MG ECTAB PO SCH (11:07)
[2024-06-27] MEDS: allopurinoL 100 MG TAB PO SCH (11:07)
[2024-06-27] MEDS: CHOLECALCIFEROL 10 MCG (400 UNITS) TAB PO SCH (11:07)
[2024-06-27] MEDS: hydrALAZINE 10 MG TAB PO SCH (20:46)
[2024-06-28] MEDS: PANTOprazole 40 MG TAB PO SCH (09:29)
--- NOTE | 2024-06-28 14:53 | Hospitalist Progress Note ---
<Statement entered by Avery Hinojosa, DO - 06/28/24 15:28> I have seen and examined the patient and have discussed the case with the advance practice provider. I have reviewed the advanced practitioner's documentation, and I agree with, and take responsibility for that plan of care. Patient asleep, no acute issues overnight. I spent a total of 10 minutes coordinating, documenting, and providing care for this patient excluding time spent by another provider/QHP. Date of Service June 28, 2024 Assessment & Plan (1) Acute drug-induced confusion: (2) Aphasia due to recent cerebrovascular accident (CVA): Plan Mg Little is an 84y/o M with PMHx significant for DMII, diabetic polyneuropathy, alcohol use, arthritis, gout, HTN, GERD, Anderson's esophagus, diverticulitis, CKD stage III and recent acute ischemic left MCA stroke who presented to the ED via EMS from [facility] on 05/18/2024 secondary to increased lethargy. Pertinent recent hospital course: Patient was recently admitted to [facility] on 05/08/2024 with acute onset of right- sided weakness and was ultimately found to have an acute CVA due to left MCA M3 branch occlusion, received TNK at that time. Had worsening expressive aphasia, new right-sided facial drooping and right hemiparesis on 05/09/2024, repeat CTA revealed possible residual thrombus in the M2 segment therefore the patient was transferred to [facility] At [facility], CTP showed slowed perfusion in the left hemisphere. DSA was performed and no LVO was found, but LICA stent was placed. MRI brain showed multiple small acute infarcts in the left cerebral hemisphere, the largest in the parietal lobe. These are in the middle anterior cerebral artery distribution. Small petechial hemorrhage in the left postcentral gyrus. TTE showing small PFO, unlikely contributory. Clinical course was complicated by hyperactive delirium which required Precedex which was eventually transitioned to scheduled Seroquel. LTM EEG showed slowing but no epileptiform activity. Initially required NG tube due to poor oral tolerance but with resolution of his delirium he began eating PO. He was evaluated by speech therapy at [facility] who recommended soft & bite-sized solids with thin liquids. Was then discharged to [facility]. While there, had Seroquel dose increased due to agitation (75mg HS) and presented to [facility] on 05/18/[address] from 05/18/2024 showed subacute infarcts similar in distribution to areas of infarct seen on brain MRI done 05/10/24 at [facility] per [facility] records. Acute Drug-Induced Confusion, Delirium Severe Expressive Aphasia & Cognitive Changes 2/2 Recent CVA: Repeat head CT on 05/30 negative, shows evolving changes of recent CVA but decreasing in size. Seroquel discontinued. Currently maintaining on Zyprexa 5mg QHS started on 06/11. Continue Abilify 5mg BID as well. Delirium precautions. Noted R arm contracture. Unfortunately unlikely to make any significant recovery at this point. Continue DAPT and statin for recent CVA. Feel he is at his new medical baseline and would be best suited at SNF; he will likely need long-term placement after rehab stay. MICHAEL on CKD Stage III - RESOLVED: Cr was previously elevated at 1.85 on admission, trended up to 2.57 on 05/22/2024. Baseline Cr ~1.4-1.7 per chart review. Cr at baseline as of 06/10; chlorthalidone discontinued. Follows with [facility] [Dr. Mackey]. HTN: All BP meds were previously on hold 2/2 relative hypotension. Currently only on hydralazine 10mg BID. Losartan and chlorthalidone discontinued . DMII: Chronic, stable. Hgb A1c was 7.2 on 05/09/2024. SSI discontinued 2/2 lower BSGs. Given condition/age, tight BSG control not recommended. DVT Prophylaxis: SQ Heparin Code Status: DNR/DNI - No Resuscitation PCP: Art Cavazos, Disposition: Stable for discharge, still awaiting placement. CM and patient's daughter, Marcia [ ], heavily involved with placement process. Patient seen in collaboration with Dr. Hinojosa. Please see addendum. I spent a total of 20 minutes coordinating, documenting, and providing care for this patient excluding time spent in the performance of separately billed se rvices or time spent by another provider/QHP. This included personally reviewing all current laboratories and imaging studies, medical reconciliation, outpatient chart review and discussion with specialists. This chart was completed in part utilizing Speech Voice Recognition Software. Grammatical errors, random word insertions, pronoun errors, and incomplete sentences are an occasional consequence of this system due to software limitations, ambient noise, and hardware issues. Any formal questions or concerns about the content, text, or information contained within the body of this dictation should be directly addressed to the provider for clarification. Admission and Anticipated Discharge Date Admission Date: May 20, 2024 Subjective Patient seen and examined in room [facility]. [facility]. He is resting comfortably. RN, Liban, reports patient did not eat much of his breakfast but did take his morning medications crushed in pudding. Review of Systems Review of Systems: Unable to properly obtain 2/2 patient's cognitive/mentation status. Physical Exam Physical Exam: General: Tall/thin M, laying in bed, severe expressive aphasia/garbled speech, A&O to self. Resting comfortably. HEENT: Normocephalic, atraumatic. Conjunctivae normal, anicteric sclerae. Mucous membranes slightly dry. Respiratory: Normal respiratory effort/lungs clear to auscultation, no wheeze/rales/rhonchi. No accessory muscle use. Cardiovascular: Regular rate, rhythm, normal peripheral pulses, no BLE edema. Vessels: No JVD. Results & Data Results & Data Vital Signs (Past 12 Hours) Vital Signs Temp Pulse Resp BP Pulse Ox O2 Del Method 06/28/24 14:31 37.0 C 79 18 116/65 94 Room Air 06/28/24 07:04 37.2 C 80 16 101/66 95 Room Air
[2024-06-28] MEDS ORDERED: LIDOCAINE 2% JELLY 5 ML TUBE EXT PRN (15:28)
[2024-06-28 16:21] LABS: Appearance Urine Clear (Clear); Bacteria Urine Automated None Seen (None Seen); Bilirubin Urine Negative (Negative); Blood Urine Negative (Negative); Cast Urine Automated 0-2 /lpf (0-2); Color Urine Yellow; Epithelial Cell Urine Auto 0-2 /hpf (0-2); Glucose Urine UA Negative (Negative); Ketones Urine Trace (Negative); Leukocyte Esterase Urine Negative (Negative); Nitrite Urine Negative (Negative); Protein Urine 1+ (Negative); RBC Urine Automated 0-2 /hpf (0-2); Specific Gravity Urine 1.022 (1.000-1.030); Urobilinogen Urine Negative (Negative); WBC Urine Automated 0-5 /hpf (0-5)
--- NOTE | 2024-06-29 07:55 | Hospitalist Progress Note ---
<Statement entered by Avery Hinojosa, DO - 06/29/24 13:07> I have seen and examined the patient and have discussed the case with the advance practice provider. I have reviewed the advanced practitioner's documentation, and I agree with, and take responsibility for that plan of care. Patient does not appear to be in any acute distress. Seems to attempt to answer questions or converse with me, however speech is completely unintelligible and garbled and mumbled words. Continue with current care Continue to pursue placement Additional plan of care as outlined below I spent a total of 15 minutes coordinating, documenting, and providing care for this patient excluding time spent by another provider/QHP. Date of Service June 29, 2024 Assessment & Plan (1) Acute drug-induced confusion: (2) Aphasia due to recent cerebrovascular accident (CVA): (3) Acute urinary retention: Plan Mg Little is an 84y/o M with PMHx significant for DMII, diabetic polyneuropathy, alcohol use, arthritis, gout, HTN, GERD, Anderson's esophagus, diverticulitis, CKD stage III and recent acute ischemic left MCA stroke who presented to the ED via EMS from [facility] on 05/18/2024 secondary to increased lethargy. Pertinent recent hospital course: Patient was recently admitted to [facility] on 05/08/2024 with acute onset of right- sided weakness and was ultimately found to have an acute CVA due to left MCA M3 branch occlusion, received TNK at that time. Had worsening expressive aphasia, new right-sided facial drooping and right hemiparesis on 05/09/2024, repeat CTA revealed possible residual thrombus in the M2 segment therefore the patient was transferred to [facility]. At [facility], CTP showed slowed perfusion in the left hemisphere. DSA was performed and no LVO was found, but LICA stent was placed. MRI brain showed multiple small acute infarcts in the left cerebral hemisphere, the largest in the parietal lobe. These are in the middle anterior cerebral artery distribution. Small petechial hemorrhage in the left postcentral gyrus. TTE showing small PFO, unlikely contributory. Clinical course was complicated by hyperactive delirium which required Precedex which was eventually transitioned to scheduled Seroquel. LTM EEG showed slowing but no epileptiform activity. Initially required NG tube due to poor oral tolerance but with resolution of his delirium he began eating PO. He was evaluated by speech therapy at [facility] who recommended soft & bite-sized solids with thin liquids. Was then discharged to [facility]. While there, had Seroquel dose increased due to agitation (75mg HS) and presented to [facility] on 05/18/[address] from 05/18/2024 showed subacute infarcts similar in distribution to areas of infarct seen on brain MRI done 05/10/24 at [facility] per Epic records. Acute Drug-Induced Confusion, Delirium Severe Expressive Aphasia & Cognitive Changes 2/2 Recent CVA: Repeat head CT on 05/30 negative, shows evolving changes of recent CVA but decreasing in size. Seroquel discontinued. Currently maintaining on Zyprexa 5mg QHS started on 06/11. Continue Abilify 5mg BID as well. Delirium precautions. Noted R arm contracture. Unfortunately unlikely to make any significant recovery at this point. Continue DAPT and statin for recent CVA. Feel he is at his new medical baseline and would be best suited at SNF; he will likely need long-term placement after rehab stay. Acute Urinary Retention: Spoke with bedside RNPaige. Patient did not void overnight. Last recorded void was at 16:00 on 06/28 via straight catheterization with 700mL urine output. Bladder scanned for 230mL this morning and repeat straight cath with 425mL urine output. Repeat UA negative for infection. Continue bladder scan QS. Check BMP in AM. MICHAEL on CKD Stage III - RESOLVED: Cr was previously elevated at 1.85 on admission, trended up to 2.57 on 05/22/2024. Baseline Cr ~1.4-1.7 per chart review. Cr at baseline as of 06/10; chlorthalidone discontinued. Follows with [facility] [Dr. Mackey]. HTN: All BP meds were previously on hold 2/2 relative hypotension. Currently only on hydralazine 10mg BID. Losartan and chlorthalidone discontinued . May be able to discontinue hydralazine as well 2/2 recent normotensive pressures - has not required it for past 4 days. Continue to monitor BP. DMII: Chronic, stable. Hgb A1c was 7.2 on 05/09/2024. SSI discontinued 2/2 lower BSGs. Given condition/age, tight BSG control not recommended. DVT Prophylaxis: SQ Heparin Code Status: DNR/DNI - No Resuscitation PCP: Art Cavazos DO Disposition: Stable for discharge, still awaiting placement. CM and patient's daughter, Marcia [ ], heavily involved with placement process. Patient seen in collaboration with Dr. Hinojosa. Please see addendum. I spent a total of 30 minutes coordinating, documenting, and providing care for this patient excluding time spent in the performance of separately billed services or time spent by another provider/QHP. This included personally reviewing all current laboratories and imaging studies, medical reconciliation, outpatient chart review and discussion with specialists. This chart was completed in part utilizing Speech Voice Recognition Software. Grammatical errors, random word insertions, pronoun errors, and incomplete sentences are an occasional consequence of this system due to software limitations, ambient noise, and hardware issues. Any formal questions or concerns about the content, text, or information contained within the body of this dictation should be directly addressed to the provider for clarification. Admission and Anticipated Discharge Date Admission Date: May 20, 2024 Subjective Patient seen and examined in room N376-1. He is resting comfortably. Incontinent of stool. Spoke with RN, Paige. Patient did not void overnight. Last recorded void was at 16:00 on 06/28 via straight catheterization with 700mL urine output. Bladder scanned for 230mL this morning per Paige. Straight cath with 425mL urine output. Order changed to bladder scan QS instead of PRN - Paige made aware. Review of Systems Review of Systems: Unable to properly obtain 2/2 patient's cognitive/mentation status. Physical Exam Physical Exam: General: Tall/thin M, laying in bed, severe expressive aphasia/garbled speech, A&O to self. Resting comfortably. HEENT: Normocephalic, atraumatic. Conjunctivae normal, anicteric sclerae. Mucous membranes slightly dry. Respiratory: Normal respiratory effort/lungs clear to auscultation, no wheeze/rales/rhonchi. No accessory muscle use. Cardiovascular: Regular rate, rhythm, normal peripheral pulses, no BLE edema. Vessels: No JVD. Results & Data Results & Data Vital Signs (Past 12 Hours) Vital Signs Temp Pulse Resp BP 06/29/24 07:14 36.6 C 75 16 108/65 06/28/24 20:23 110/66 Laboratory Results Urine 06/28/24 Range/Units Unknown Urine Color Yellow Urine Appearance Clear (Clear) Urine pH 5.0 (4.5-7.5) Ur Specific [place] 1.022 (1.000-1.030) Urine Protein 1+ H (Negative) Urine Glucose (UA) Negative (Negative)
[2024-06-30] MEDS: SENNA 8.6 MG TAB PO PRN (08:14)
[2024-06-30 09:20] LABS: Hematocrit (blood only) 33.8 % (42.0-52.0); Hemoglobin 11.3 g/dl (14.0-18.0); Mean Corpuscular Hemoglobin 29.4 pg (25.0-34.0); Mean Corpuscular Hgb Conc 33.4 g/dL (32.0-36.0); Mean Corpuscular Volume 87.8 fL (80.0-100.0); Mean Platelet Volume 10.2 fL (9.4-12.4); Platelet Count 258 K/uL (130-400); RDW Coefficient of Variation 14.4 % (11.5-14.5); RDW Standard Deviation 46.5 fL (36.4-46.3); Red Blood Count 3.85 M/uL (4.70-6.10); White Blood Count 4.98 K/ul (4.8-10.8)
[2024-06-30 09:40] LABS: BUN Creatinine Ratio 34.9 (10-20); Calcium 9.6 mg/dl (8.6-10.3); Creatinine Clr Calc Pharmacy 37.5 ml/min
--- NOTE | 2024-06-30 13:39 | Hospitalist Progress Note ---
Date of Service June 30, 2024 Assessment & Plan (1) Acute drug-induced confusion: (2) Aphasia due to recent cerebrovascular accident (CVA): (3) Acute urinary retention: Plan Mg Little is an 84y/o M with PMHx significant for DMII, diabetic polyneuropathy, alcohol use, arthritis, gout, HTN, GERD, Anderson's esophagus, diverticulitis, CKD stage III and recent acute ischemic left MCA stroke who presented to the ED via EMS from [facility] on 05/18/2024 sec ondary to increased lethargy. Pertinent recent hospital course: Patient was recently admitted to [facility] on 05/08/2024 with acute onset of right- sided weakness and was ultimately found to have an acute CVA due to left MCA M3 branch occlusion, received TNK at that time. Had worsening expressive aphasia, new right-sided facial drooping and right hemiparesis on 05/09/2024, repeat CTA revealed possible residual thrombus in the M2 segment therefore the patient was transferred to [facility]. At [facility], CTP showed slowed perfusion in the left hemisphere. DSA was performed and no LVO was found, but LICA stent was placed. MRI brain showed multiple small acute infarcts in the left cerebral hemisphere, the largest in the parietal lobe. These are in the middle anterior cerebral a rtery distribution. Small petechial hemorrhage in the left postcentral gyrus. TTE showing small PFO, unlikely contributory. Clinical course was complicated by hyperactive delirium which required Precedex which was eventually transitioned to scheduled Seroquel. LTM EEG showed slowing but no epileptiform activity. Initially required NG tube due to poor oral tolerance but with resolution of his delirium he began eating PO. He was evaluated by speech therapy at [facility] who recommended soft & bite-sized solids with thin liquids. Was then discharged to [facility]. While there, had Seroquel dose increased due to agitation (75mg HS) and presented to [facility] on 05/18/[address] from 05/18/2024 showed subacute infarcts similar in distribution to areas of infarct seen on brain MRI done 05/10/24 at [facility] per [facility] records. Acute Drug-Induced Confusion, Delirium Severe Expressive Aphasia & Cognitive Changes 2/2 Recent CVA: Repeat head CT on 05/30 negative, shows evolving changes of recent CVA but decreasing in size. Seroquel discontinued. Currently maintaining on Zyprexa 5mg QHS started on 06/11. Continue Abilify 5mg BID as well. Delirium precautions. Noted R arm contracture. Unfortunately unlikely to make any significant recovery at this point. Continue DAPT and statin for recent CVA. Feel he is at his new medical baseline and would be best suited at SNF; he will likely need long-term placement after rehab stay. Acute Urinary Retention - Improved: Spoke with bedside RN, Paige, again this morning. Patient spontaneously voided urine last evening. Labs unremarkable this morning, renal function at baseline. Has not required a straight cath since yesterday morning. Bladder scan noted 285mL urine this morning, no PVR. Repeat UA negative. Continue bladder scan QS, straight cath PRN. CKD Stage III: Cr was previously elevated at 1.85 on admission, trended up to 2.57 on 05/22/2024. Downtrended to 1.2 on 06/20/24. Upon further review of his chart, appears baseline Cr since 2019 has trended around 1.3-1.6; Cr 1.52 on repeat labs today. BUN 53, Na 144 on repeat labs today. Cr appears to be around his baseline looking back in his chart, however it was down to 1.2 on 06/20/24. Oral intake waxes/wanes. Suspect mild dehydration. 0.5L bag of D5w ordered. Will repeat labs tomorrow. Follows with [facility] [Dr. Mackey]. HTN: All BP meds were previously on hold 2/2 relative hypotension. Currently only on hydralazine 10mg BID. Losartan and chlorthalidone discontinued . May be able to discontinue hydralazine as well 2/2 recent normotensive pressures - has not required it for past 4 days. Was noted to be hypotensive this morning with BP of 95/60 but this has since improved. Holding hydralazine. Continue to monitor BP. DMII: Chronic, stable. Hgb A1c was 7.2 on 05/09/2024. SSI discontinued 2/2 lower BSGs. Given condition/age, tight BSG control not recommended. Continue BSG checks BID. DVT Prophylaxis: SQ Heparin Code Status: DNR/DNI - No Resuscitation PCP: Art Cavazos DO Disposition: Stable for discharge, still awaiting placement. CM and patient's daughter, Marcia [ ], heavily involved with placement process. Patient seen in collaboration with Dr. Red[place]. Please see addendum. I spent a total of 20 minutes coordinating, documenting, and providing care for this patient excluding time spent in the performance of separately billed services or time spent by another provider/QHP. This included personally reviewing all current laboratories and imaging studies, medical reconciliation, outpatient chart review and discussion with specialists. This chart was completed in part utilizing Speech Voice Recognition Software. Grammatical errors, random word insertions, pronoun errors, and incomplete sentences are an occasional consequence of this system due to software limitations, ambient noise, and hardware issues. Any formal questions or concerns about the content, text, or information contained within the body of this dictation should be directly addressed to the provider for clarification. Admission and Anticipated Discharge Date Admission Date: May 20, 2024 Supervising Physician Co-Signing Physician Notes I have seen and discussed the case with the collaborating advanced practitioner. I agree with the above PN. I have reviewed and confirmed the patients medical history, the findings on physical examination, and the patients diagnosis and treatment plan with Jaylon PRESLEY and agree with the information documented. Martita is an 84 year old man with recent MCA who is awaiting placement. Noted that BUN/Cr uptrending, cr uptrending, and bun as well. sodium up to 144. Will add free water replacement with d5w for 1 l rest of plan as above I spent a total of 15 minutes coordinating, documenting, and providing care for this patient excluding time spent in the performance of separately billed services. All of the aforementioned completed outside of collaborating with the assigned advanced practitioner for a full treatment plan. I have reviewed the advanced practitioner's documentation, and I agree with, and take responsibility for the plan of care Subjective Patient seen and examined in room N376-1. He is sleeping and appears comfortable. He ate breakfast. Incontinent of stools and urine. Noted to be retaining urine yesterday. Spoke with RN, Paige, this morning. No further need to straight cath patient since yesterday morning. Noted to spontaneously void urine last evening. Discussed labs from this morning. Review of Systems Review of Systems: Unable to properly obtain 2/2 patient's cognitive/mentation status. Physical Exam Physical Exam: General: Tall/thin M, laying in bed, severe expressive aphasia/garbled speech, A&O to self. Resting comfortably. HEENT: Normocephalic, atraumatic. Conjunctivae normal, anicteric sclerae. Mucous membranes slightly dry. Respiratory: Normal respiratory effort/lungs clear to auscultation, no wheeze/rales/rhonchi. No accessory muscle use. Cardiovascular: Regular rate, rhythm, normal peripheral pulses, no BLE edema. Vessels: No JVD. Abdomen/GI: Normal bowel sounds, soft, nondistended, nontender to palpation in all quadrants. Results & Data Results & Data Vital Signs (Past 12 Hours) Vital Signs Temp Pulse Resp BP Pulse Ox O2 Del Method 06/30/24 11:23 16 124/70 06/30/24 08:00 Room Air 06/30/24 07:19 36.6 C 76 16 95/60 L 95 Room Air Laboratory Results Short CBC 06/30/24 Range/Units 08:56 WBC 4.98 (4.8-10.8) K/ul Hgb 11.3 L (14.0-18.0) g/dl Hct 33.8 L (42.0-52.0) % Plt Count 258 (130-400) K/uL BMP 06/30/24 08:56 Sodium 144 Potassium 4.0 Chloride 111 H Carbon Dioxide 27 BUN 53 H Creatinine 1.52 H Glucose 172 H Calcium 9.6
[2024-06-30] MEDS: DEXTROSE 5% 500 ML IV SCH (16:47)
[2024-07-01 09:00] LABS: Hematocrit (blood only) 35.8 % (42.0-52.0); Hemoglobin 11.8 g/dl (14.0-18.0); Mean Corpuscular Hemoglobin 28.6 pg (25.0-34.0); Mean Corpuscular Volume 86.7 fL (80.0-100.0); Platelet Count 263 K/uL (130-400); RDW Coefficient of Variation 14.3 % (11.5-14.5); RDW Standard Deviation 45.1 fL (36.4-46.3); Red Blood Count 4.13 M/uL (4.70-6.10); White Blood Count 5.72 K/ul (4.8-10.8)
[2024-07-01 09:13] LABS: BUN Creatinine Ratio 33.1 (10-20); Calcium 9.4 mg/dl (8.6-10.3); Creatinine Clr Calc Pharmacy 42.8 ml/min; Magnesium 2.3 mg/dl (1.7-2.4); Potassium 4.2 mmol/L (3.5-5.1)
--- NOTE | 2024-07-01 16:22 | Hospitalist Progress Note ---
Date of Service July 01, 2024 Assessment & Plan (1) Acute drug-induced confusion: (2) Aphasia due to recent cerebrovascular accident (CVA): (3) Acute urinary retention: Plan Mg Little is an 84y/o M with PMHx significant for DMII, diabetic polyneuropathy, alcohol use, arthritis, gout, HTN, GERD, Anderson's esophagus, diverticulitis, CKD stage III and recent acute ischemic left MCA stroke who presented to the ED via EMS from [facility] on 05/18/2024 sec ondary to increased lethargy. Pertinent recent hospital course: Patient was recently admitted to [facility] on 05/08/2024 with acute onset of right- sided weakness and was ultimately found to have an acute CVA due to left MCA M3 branch occlusion, received TNK at that time. Had worsening expressive aphasia, new right-sided facial drooping and right hemiparesis on 05/09/2024, repeat CTA revealed possible residual thrombus in the M2 segment therefore the patient was transferred to [facility] [place] [facility], CTP showed slowed perfusion in the left hemisphere. DSA was performed and no LVO was found, but LICA stent was placed. MRI brain showed multiple small acute infarcts in the left cerebral hemisphere, the largest in the parietal lobe. These are in the middle anterior cerebral a rtery distribution. Small petechial hemorrhage in the left postcentral gyrus. TTE showing small PFO, unlikely contributory. Clinical course was complicated by hyperactive delirium which required Precedex which was eventually transitioned to scheduled Seroquel. LTM EEG showed slowing but no epileptiform activity. Initially required NG tube due to poor oral tolerance but with resolution of his delirium he began eating PO. He was evaluated by speech therapy at [facility] who recommended soft & bite-sized solids with thin liquids. Was then discharged to [facility]. While there, had Seroquel dose increased due to agitation (75mg HS) and presented to [facility] on 05/18/[address] from 05/18/2024 showed subacute infarcts similar in distribution to areas of infarct seen on brain MRI done 05/10/24 at [facility] per [facility] records. Acute Drug-Induced Confusion, Delirium Severe Expressive Aphasia & Cognitive Changes 2/2 Recent CVA Repeat head CT on 05/30 negative, shows evolving changes of recent CVA but decreasing in size. Seroquel discontinued. Currently maintaining on Zyprexa 5mg QHS started on 06/11. Continue Abilify 5mg BID as well. Delirium precautions. Noted R arm contracture. Unfortunately unlikely to make any significant recovery at this point. Continue DAPT and statin for recent CVA. Feel he is at his new medical baseline and would be best suited at SNF; he will likely need long-term placement after rehab stay. Acute Urinary Retention Patient has required straight cath x 3 in the past [address] Dominguez, start tamsulosin, possible void trial in a few days CKD Stage III Cr was previously elevated at 1.85 on admission, trended up to 2.57 on 05/22/2024. Downtrended to 1.2 on 06/20/24. Upon further review of his chart, appears baseline Cr since 2019 has trended around 1.3-1.6 2/5 - BUN 53, Na 144, Cr 1.5. Cr appears to be around his baseline looking back in his chart, however it was down to 1.2 on 06/20/24. Oral intake waxes/wanes. Suspect mild dehydration. 0.5L bag of D5w ordered Creatinine 1.3 today, may also have some component of postobstructive uropathy with urinary retention Follow renal function Follows with [facility] [Dr. Mackey]. HTN All BP meds were previously on hold 2/2 relative hypotension. Currently only on hydralazine 10mg BID for systolic BP > 130. Losartan and chlorthalidone discontinued. May be able to discontinue hydralazine as well 2/2 recent normotensive pressures - has not required it for past 4 days. DMII Chronic, stable Hgb A1c was 7.2 on 05/09/2024 SSI discontinued 2/2 lower BSGs Given condition/age, tight BSG control not recommended. Continue BSG checks BID. DVT Prophylaxis: SQ Heparin Code Status: DNR/DNI - No Resuscitation PCP: Art Cavazos, Disposition: Stable for discharge, still awaiting placement. CM and patient's daughter, Marcia [ ], heavily involved with placement process. I spent a total of 20 minutes coordinating, documenting, and providing care for this patient excluding time spent in the performance of separately billed services. This included personally reviewing all current laboratories and imaging studies, medication reconciliation, outpatient chart review, and discussion with specialists. Admission and Anticipated Discharge Date Admission Date: May 20, 2024 Supervising Physician Co-Signing Physician Notes I have seen and discussed the case with the collaborating advanced practitioner. I agree with the above PN. I have reviewed and confirmed the patients medical history, the findings on physical examination, and the patients diagnosis and treatment plan with Love RANDY and agree with the information documented. Mr Little is an 84 year old man with recent MCA who is awaiting placement. No acute changes to his management I spent a total of 10 minutes coordinating, documenting, and providing care for this patient excluding time spent in the performance of separately billed services. All of the aforementioned completed outside of collaborating with the assigned advanced practitioner for a full treatment plan. I have reviewed the advanced practitioner's documentation, and I agree with, and take responsibility for the plan of care Subjective Follow-up for delirium. Patient seen and examined. Resting in bed. Speech remains garbled with expressive aphasia. Patient is able to answer some yes/no questions. Does not appear to be in any acute distress. Physical Exam Constitutional: no acute distress Chronically ill-appearing Respiratory: normal respiratory effort, lungs clear to auscultation Cardiovascular: Rate/Rhythm: regular rate and regular rhythm Vessels: normal peripheral pulses Extremities: no edema Skin: no rashes, warm and dry Neurologic: awake Speech / Cognition: + abnormal speech and + expressive aphasia Results & Data Results & Data Vital Signs (Past 12 Hours) Vital Signs Temp Pulse Resp BP Pulse Ox O2 Del Method 07/01/24 14:34 36.5 C 87 18 167/69 H 92 Room Air 07/01/24 11:50 Room Air 07/01/24 06:21 36.4 C L 65 16 113/70 96 Room Air Laboratory Results Short CBC 07/01/24 Range/Units 08:28 WBC 5.72 (4.8-10.8) K/ul Hgb 11.8 L (14.0-18.0) g/dl Hct 35.8 L (42.0-52.0) % Plt Count 263 (130-400) K/uL BMP 07/01/24 08:28 Sodium 142 Potassium 4.2 Chloride 111 H Carbon Dioxide 23 BUN 44 H Creatinine 1.33 Glucose 148 H Calcium 9.4
[2024-07-01] MEDS: TAMSULOSIN HCL 0.4 MG CAP PO SCH (21:47)
[2024-07-02 09:57] LABS: BUN Creatinine Ratio 27.5 (10-20); Calcium 9.7 mg/dl (8.6-10.3); Creatinine Clr Calc Pharmacy 41.3 ml/min
--- NOTE | 2024-07-02 14:36 | Hospitalist Progress Note ---
Date of Service July 02, 2024 Assessment & Plan (1) Acute drug-induced confusion: (2) Aphasia due to recent cerebrovascular accident (CVA): (3) Acute urinary retention: Plan Mg Little is an 84y/o M with PMHx significant for DMII, diabetic polyneuropathy, alcohol use, arthritis, gout, HTN, GERD, Anderson's esophagus, diverticulitis, CKD stage III and recent acute ischemic left MCA stroke who presented to the ED via EMS from [facility] on 05/18/2024 sec ondary to increased lethargy. Pertinent recent hospital course: Patient was recently admitted to [facility] on 05/08/2024 with acute onset of right- sided weakness and was ultimately found to have an acute CVA due to left MCA M3 branch occlusion, received TNK at that time. Had worsening expressive aphasia, new right-sided facial drooping and right hemiparesis on 05/09/2024, repeat CTA revealed possible residual thrombus in the M2 segment therefore the patient was transferred to [facility]. At [facility], CTP showed slowed perfusion in the left hemisphere. DSA was performed and no LVO was found, but LICA stent was placed. MRI brain showed multiple small acute infarcts in the left cerebral hemisphere, the largest in the parietal lobe. These are in the middle anterior cerebral a rtery distribution. Small petechial hemorrhage in the left postcentral gyrus. TTE showing small PFO, unlikely contributory. Clinical course was complicated by hyperactive delirium which required Precedex which was eventually transitioned to scheduled Seroquel. LTM EEG showed slowing but no epileptiform activity. Initially required NG tube due to poor oral tolerance but with resolution of his delirium he began eating PO. He was evaluated by speech therapy at [facility] who recommended soft & bite-sized solids with thin liquids. Was then discharged to [facility]. While there, had Seroquel dose increased due to agitation (75mg HS) and presented to [facility] on 05/18/[address] from 05/18/2024 showed subacute infarcts similar in distribution to areas of infarct seen on brain MRI done 05/10/24 at [facility] per [facility] records. Acute Drug-Induced Confusion, Delirium Severe Expressive Aphasia & Cognitive Changes 2/2 Recent CVA Repeat head CT on 05/30 negative, shows evolving changes of recent CVA but decreasing in size. Seroquel discontinued. Currently maintaining on Zyprexa 5mg QHS started on 06/11. Continue Abilify 5mg BID as well. Delirium precautions. Noted R arm contracture. Unfortunately unlikely to make any significant recovery at this point. Continue DAPT and statin for recent CVA. Feel he is at his new medical baseline and would be best suited at SNF; he will likely need long-term placement after rehab stay. Acute Urinary Retention Patient required straight cath x 3 in 24 hours Dominguez placed on 07/01, started tamsulosin, possible void trial in a few days Check UA CKD Stage III Cr was previously elevated at 1.85 on admission, trended up to 2.57 on 05/22/2024. Downtrended to 1.2 on 06/20/24. Appears baseline Cr since 2019 has trended around 1.3-1.6 06/30 - BUN 53, Na 144, Cr 1.5. Cr appears to be around his baseline looking back in his chart, however it was down to 1.2 on 06/20/24. Oral intake waxes/wanes. Suspect mild dehydration. 0.5L bag of D5w ordered Creatinine 1.3 -> 1.3 today, may also have some component of postobstructive uropathy with urinary retention Follow renal function Follows with [facility] [Dr. Mackey]. HTN All BP meds were previously on hold 2/2 relative hypotension. Currently only on hydralazine 10mg BID for systolic BP > 130. Losartan and chlorthalidone discontinued. May be able to discontinue hydralazine as well 2/2 recent normotensive pressures - has not required it for several days DMII Chronic, stable Hgb A1c was 7.2 on 05/09/2024 SSI discontinued 2/2 lower BSGs Given condition/age, tight BSG control not recommended. Continue BSG checks BID. DVT Prophylaxis: SQ Heparin Code Status: DNR/DNI - No Resuscitation PCP: Art Cavazos, Disposition: Stable for discharge, still awaiting placement. CM and patient's daughter, Marcia [ ], heavily involved with placement process. I spent a total of 20 minutes coordinating, documenting, and providing care for this patient excluding time spent in the performance of separately billed services. This included personally reviewing all current laboratories and imaging studies, medication reconciliation, outpatient chart review, and discussion with specialists. Admission and Anticipated Discharge Date Admission Date: May 20, 2024 Supervising Physician Co-Signing Physician Notes I have seen and discussed the case with the collaborating advanced practitioner. I agree with the above PN. I have reviewed and confirmed the patients medical history, the findings on physical examination, and the patients diagnosis and treatment plan with Love HUNTING GUIDE and agree with the information documented. Mr Little is an 84 year old man with recent MCA who is awaiting placement. Active UA +new onset retention, will follow culture CTX for now; I spent a total of 10 minutes coordinating, documenting, and providing care for this patient excluding time spent in the performance of separately billed services. All of the aforementioned completed outside of collaborating with the assigned advanced practitioner for a full treatment plan. I have reviewed the advanced practitioner's documentation, and I agree with, and take responsibility for the plan of care Subjective Follow-up for delirium, history of recent CVA. Patient seen and examined. Resting in bed. Per nurses aide, patient ate most of his lunch. He is currently resting in bed, sleeping, but arouses easily to verbal stimuli. Seems to be tolerating Dominguez catheter. Physical Exam Constitutional: no acute distress Chronically ill appearing Respiratory: normal respiratory effort, lungs clear to auscultation Cardiovascular: Rate/Rhythm: regular rate and regular rhythm Vessels: normal peripheral pulses Extremities: no edema Skin: no rashes, warm and dry Neurologic: sleeping but arouses easily to verbal stimuli, history of CVA with chronic right sided weakness, garbled speech, expressive aphasia Results & Data Results & Data Vital Signs (Past 12 Hours) Vital Signs Temp Pulse Resp BP Pulse Ox O2 Del Method 07/02/24 14:13 36.5 C 73 17 101/58 L 96 Room Air 07/02/24 07:44 36.3 C L 58 L 17 102/57 L 97 Room Air Laboratory Results [facility] 07/02/24 08:50 Sodium 144 Potassium 4.0 Chloride 110 H Carbon Dioxide 28 BUN 38 H Creatinine 1.38 Glucose 133 H Calcium 9.7
[2024-07-02 15:31] LABS: Appearance Urine Clear (Clear); Bacteria Urine Automated None Seen (None Seen); Bilirubin Urine Negative (Negative); Blood Urine 2+ (Negative); Color Urine Yellow; Epithelial Cell Urine Auto 0-2 /hpf (0-2); Glucose Urine UA Negative (Negative); Ketones Urine Trace (Negative); Leukocyte Esterase Urine 2+ (Negative); Nitrite Urine Negative (Negative); Protein Urine 1+ (Negative); Specific Gravity Urine 1.025 (1.000-1.030); Urobilinogen Urine Negative (Negative); WBC Urine Automated 21-50 /hpf (0-5)
--- NOTE | 2024-07-02 16:28 | Communication Note ---
Date of Service: July 02, 2024 UA reviewed, suggest possible UTI Will start empiric IV ceftriaxone, follow urine culture [facility]
[2024-07-02] MEDS: cefTRIAXone SODIUM 1,000 MG/50 ML BAG IV SCH (17:42)
[2024-07-03 06:32] LABS: Hematocrit (blood only) 34.5 % (42.0-52.0); Hemoglobin 11.5 g/dl (14.0-18.0); Mean Corpuscular Hemoglobin 28.8 pg (25.0-34.0); Mean Corpuscular Hgb Conc 33.3 g/dL (32.0-36.0); Mean Corpuscular Volume 86.5 fL (80.0-100.0); Platelet Count 242 K/uL (130-400); RDW Coefficient of Variation 14.2 % (11.5-14.5); RDW Standard Deviation 45.1 fL (36.4-46.3); Red Blood Count 3.99 M/uL (4.70-6.10); White Blood Count 7.86 K/ul (4.8-10.8)
[2024-07-03 06:48] LABS: BUN Creatinine Ratio 28.1 (10-20); Calcium 9.6 mg/dl (8.6-10.3); Creatinine Clr Calc Pharmacy 42.2 ml/min; Potassium 4.1 mmol/L (3.5-5.1)
--- NOTE | 2024-07-03 11:03 | Hospitalist Progress Note ---
Date of Service July 03, 2024 Assessment & Plan (1) Acute drug-induced confusion: (2) Aphasia due to recent cerebrovascular accident (CVA): (3) Acute urinary retention: Plan Mg Little is an 84y/o M with PMHx significant for DMII, diabetic polyneuropathy, alcohol use, arthritis, gout, HTN, GERD, Anderson's esophagus, diverticulitis, CKD stage III and recent acute ischemic left MCA stroke who presented to the ED via EMS from [facility] on 05/18/2024 sec ondary to increased lethargy. Pertinent recent hospital course: Patient was recently admitted to [facility] on 05/08/2024 with acute onset of right- sided weakness and was ultimately found to have an acute CVA due to left MCA M3 branch occlusion, received TNK at that time. Had worsening expressive aphasia, new right-sided facial drooping and right hemiparesis on 05/09/2024, repeat CTA revealed possible residual thrombus in the M2 segment therefore the patient was transferred to [facility]. At [facility], CTP showed slowed perfusion in the left hemisphere. DSA was performed and no LVO was found, but LICA stent was placed. MRI brain showed multiple small acute infarcts in the left cerebral hemisphere, the largest in the parietal lobe. These are in the middle anterior cerebral a rtery distribution. Small petechial hemorrhage in the left postcentral gyrus. TTE showing small PFO, unlikely contributory. Clinical course was complicated by hyperactive delirium which required Precedex which was eventually transitioned to scheduled Seroquel. LTM EEG showed slowing but no epileptiform activity. Initially required NG tube due to poor oral tolerance but with resolution of his delirium he began eating PO. He was evaluated by speech therapy at [facility] who recommended soft & bite-sized solids with thin liquids. Was then discharged to [facility]. While there, had Seroquel dose increased due to agitation (75mg HS) and presented to [facility] on 05/18/[address] from 05/18/2024 showed subacute infarcts similar in distribution to areas of infarct seen on brain MRI done 05/10/24 at [facility] per [facility] records. Acute Drug-Induced Confusion, Delirium Severe Expressive Aphasia & Cognitive Changes 2/2 Recent CVA -Repeat head CT on 05/30 negative, shows evolving changes of recent CVA but decreasing in size. -Seroquel discontinued. Currently maintaining on Zyprexa 5mg QHS started on 06/11. Continue Abilify 5mg BID as well. Delirium precautions. Noted R arm contracture. Unfortunately unlikely to make any significant recovery at this point. Continue DAPT and statin for recent CVA. Feel he is at his new medical baseline and would be best suited at SNF; he will likely need long-term placement after rehab stay. Acute Urinary Retention -Patient required straight cath x 3 in 24 hours -Dominguez placed on 07/01, started tamsulosin, possible void trial in a few days -UCx + Enterococcus facialis; not covered by IV ceftriaxone Given hypotension and recent urinary retention, will continue IV Vanco, patient has allergy to amoxicillin CKD Stage III -Cr was previously elevated at 1.85 on admission, trended up to 2.57 on 05/22/2024. Downtrended to 1.2 on 06/20/24. -Appears baseline Cr since 2019 has trended around 1.3-1.6 -Follow renal function -Follows with [facility] [Dr. Mackey]. HTN All BP meds were previously on hold 2/2 relative hypotension. Currently only on hydralazine 10mg BID for systolic BP > 130. Losartan and chlorthalidone discontinued. May be able to discontinue hydralazine as well 2/2 recent normotensive pressures - has not required it for several days DMII Chronic, stable Hgb A1c was 7.2 on 05/09/2024 SSI discontinued 2/2 lower BSGs Given condition/age, tight BSG control not recommended. Continue BSG checks BID. DVT Prophylaxis: SQ Heparin Code Status: DNR/DNI - No Resuscitation PCP: Art Cavazos DO Disposition: Stable for discharge, still awaiting placement. CM and patient's daughter, Marcia [ ], heavily involved with placement process. I spent a total of 30 minutes coordinating, documenting, and providing care for this patient excluding time spent in the performance of separately billed services. This included personally reviewing all current laboratories and imaging studies, medication reconciliation, outpatient chart review, and discussion with specialists. Admission and Anticipated Discharge Date Admission Date: May 20, 2024 Supervising Physician Co-Signing Physician Notes I have seen and discussed the case with the collaborating advanced practitioner. I agree with the above PN. I have reviewed and confirmed the patients medical history, the findings on physical examination, and the patients diagnosis and treatment plan with Shun PADILLA and agree with the information documented. Mr Little is an 84 year old man with recent MCA who is awaiting placement. Active UA +new onset retention--given relative hypotension and inability to a ssess symptoms will treat short course of Vanc (allergy to ampicillin documented) I spent a total of 10 minutes coordinating, documenting, and providing care for this patient excluding time spent in the performance of separately billed services. All of the aforementioned completed outside of collaborating with the assigned advanced practitioner for a full treatment plan. I have reviewed the advanced practitioner's documentation, and I agree with, and take responsibility for the plan of care Subjective Patient seen and examined. Confused at baseline. Denies any complaints overnight. Per nursing, no acute events overnight Review of Systems Review of Systems: All systems reviewed & are unremarkable except as noted in HPI & below Physical Exam Constitutional: WD/WN, vitals as above no acute distress Eyes: PERRL, conjunctivae normal, anicteric sclerae ENMT: external ear and nose normal, oropharynx normal Neck: trachea midline, no thyromegaly Respiratory: normal respiratory effort, lungs clear to auscultation Cardiovascular: RRR, no murmur, no edema Gastrointestinal (Abdomen): normal bowel sounds, soft, nontender, no hepatosplenomegaly Musculoskeletal: no cyanosis or clubbing, extremities motor strength 5/5 Skin: no rashes, warm and dry Neurologic: PERRL, EOMI, accommodation nl, no face palsy, no dysarthria Psychiatric: A+Ox3, euthymic affect Orientation: oriented to person Lymphatic: no cervical or axillary lymphadenopathy Results & Data Results & Data Vital Signs (Past 12 Hours) Vital Signs Temp Pulse Resp BP Pulse Ox O2 Del Method 07/03/24 07:26 36.7 C 79 16 99/62 L 96 Room Air Diagnostic Findings Laboratory Results WBC 7.86 K/ul (4.8-10.8) 07/03/24 06:04 RBC 3.99 M/uL (4.70-6.10) L 07/03/24 06:04 Hgb 11.5 g/dl (14.0-18.0) L 07/03/24 06:04 Hct 34.5 % (42.0-52.0) L 07/03/24 06:04 MCV 86.5 fL (80.0-100.0) 07/03/24 06:04 MCH 28.8 pg (25.0-34.0) 07/03/24 06:04 MCHC 33.3 g/dL (32.0-36.0) 07/03/24 06:04 RDW Std Deviation 45.1 fL (36.4-46.3) 07/03/24 06:04 RDW Coeff of Vaibhav 14.2 % (11.5-14.5) 07/03/24 06:04 Plt Count 242 K/uL (130-400) 07/03/24 06:04 MPV 10.0 fL (9.4-12.4) 07/03/24 06:04 Immature Gran % (Auto) 0.5 % 06/15/24 05:45 Neut % (Auto) 74.5 % 06/15/24 05:45 Lymph % (Auto) 17.5 % 06/15/24 05:45 [place] % (Auto) 6.3 % 06/15/24 05:45 Eos % (Auto) 0.2 % 06/15/24 05:45 Baso % (Auto) 1.0 % 06/15/24 05:45 Neut # (Auto) 6.12 K/uL (1.40-6.50) 06/15/24 05:45 Lymph # (Auto) 1.44 K/uL (1.20-3.40) 06/15/24 05:45 [place] # (Auto) 0.52 K/uL (0.11-0.59) 06/15/24 05:45 Eos # (Auto) 0.02 K/uL (0.00-0.50) 06/15/24 05:45 Baso # (Auto) 0.08 K/uL (0.00-0.20) 06/15/24 05:45 Immature Gran # (Auto) 0.04 K/uL (0.01-0.20) 06/15/24 05:45 PT 11.7 Seconds (9.0-12.0) 05/18/24 11:21 INR 1.1 (0.9-1.1) 05/18/24 11:21 VBG pH 7.36 (7.36-7.41) 05/28/24 11:50 VBG pCO2 41 mmHg (38-50) 05/28/24 11:50 VBG pO2 42 mmHg 05/28/24 11:50 VBG HCO3 23 mmol/L 05/28/24 11:50 VBG O2 Saturation 72.3 % 05/28/24 11:50 VBG Base Excess -2.2 mEq/L 05/28/24 11:50 Sodium 144 mmol/L (136-145) 07/03/24 06:04 Potassium 4.1 mmol/L (3.5-5.1) 07/03/24 06:04 Chloride 111 mmol/L (98-107) H 07/03/24 06:04 Carbon Dioxide 26 mmol/L (21-32) 07/03/24 06:04 Anion Gap 7 (3-11) 07/03/24 06:04 BUN 38 mg/dl (6-23) H 07/03/24 06:04 Creatinine 1.35 mg/dl (0.6-1.4) 07/03/24 06:04 Est Cr Clr Drug Dosing 42.2 ml/min 07/03/24 06:04 eGFR 51.77 07/03/24 06:04 BUN/Creatinine Ratio 28.1 (10-20) H 07/03/24 06:04 Glucose 136 mg/dl (70-99(Fasting)) H 07/03/24 06:04 POC Glucose 158 mg/dl (70-99) H 07/03/24 11:28 Lactate 1.7 mmol/L (0.4-2.0) 05/31/24 11:33 Calcium 9.6 mg/dl (8.6-10.3) 07/03/24 06:04 Phosphorus 3.4 mg/dl (2.5-4.9) 05/25/24 05:40 Magnesium 2.3 mg/dl (1.7-2.4) 07/01/24 08:28 Total Bilirubin 0.7 mg/dl (0.2-1.0) 05/21/24 20:33 AST 18 U/L (13-39) 05/21/24 20:33 ALT 17 U/L (7-52) 05/21/24 20:33 Alkaline Phosphatase 79 U/L (34-104) 05/21/24 20:33 Troponin I High Sens 15.5 pg/ml (0-20) 05/18/24 11:21 Total Protein 7.2 gm/dl (6.0-8.3) 05/21/24 20:33 Albumin 3.7 gm/dl (3.4-5.0) 05/21/24 20:33 Globulin 3.5 gm/dl (2.5-4.0) 05/21/24 20: Albumin/Globulin Ratio 1.1 (0.9-2) 05/21/24 20:33 Lipase 16 U/L (11-82) 05/18/24 11:21 Procalcitonin 0.06 ng/ml (0-0.5) 05/31/24 11:33 Urine Color Yellow 07/02/24 15:05 Urine Appearance Clear (Clear) 07/02/24 15:05 Urine pH 5.0 (4.5-7.5) 07/02/24 15:05 Ur Specific [place] 1.025 (1.000-1.030) 07/02/24 15:05 Urine Protein 1+ (Negative) H 07/02/24 15:05 Urine Glucose (UA) Negative (Negative) 07/02/24 15:05 Urine Ketones Trace (Negative) H 07/02/24 15:05 Urine Blood 2+ (Negative) H 07/02/24 15:05 Urine Nitrite Negative (Negative) 07/02/24 15:05 Urine Bilirubin Negative (Negative) 07/02/24 15:05 Urine Urobilinogen Negative (Negative) 07/02/24 15:05 Ur Leukocyte Esterase 2+ (Negative) H 07/02/24 15:05 Urine WBC (Auto) 21-50 /hpf (0-5) H 07/02/24 15:05 Urine RBC (Auto) 6-10 /hpf (0-2) H 07/02/24 15:05 U Hyaline Cast (Auto) 3-5 /lpf (0-2) H 07/02/24 15:05 U Epithel Cells (Auto) 0-2 /hpf (0-2) 07/02/24 15:05 Urine Bacteria (Auto) None Seen (None Seen) 07/02/24 15:05 Hyaline Casts Present /lpf (None Presnt) A 05/18/24 11:15 Nasal Screen MRSA (PCR) Negative (Negative) 05/18/24 17:50 SARS-CoV-2, RNA, NAAT NEGATIVE (NEGATIVE) 05/18/24 12:36 Blood Type A Negative 05/23/24 20:35 Antibody Screen NEGATIVE 05/23/24 20:35 Impressions Chest X-Ray 05/18/24 11:00 XR chest 1V portable CLINICAL HISTORY: Altered mental status COMPARISON STUDY: Chest radiograph April 08, 2018. FINDINGS: Lung volumes are normal. There is no consolidation. Linear right lower lung density suggests atelectasis. There is no pneumothorax or pleural effusion. Cardiac size is normal. Mediastinal contours are normal. There is no evidence for pulmonary edema. IMPRESSION: No acute cardiopulmonary findings. ACT 112: Negative or not required by law. Electronically signed by: Issa Graf M.D. 05/18/2024 11:41 AM Abdomen/Pelvis CT 05/24/24 08:48 CT OF THE ABDOMEN AND PELVIS WITHOUT CONTRAST CLINICAL HISTORY: Gross hematuria. COMPARISON STUDY: CT of the abdomen and pelvis May 18, 2024. TECHNIQUE: Axial images of the abdomen and pelvis were obtained without IV contrast. Images were reviewed in the axial, sagittal, and coronal planes. Automated exposure control was utilized for the study. A dose lowering technique was utilized adhering to the principles of ALARA. FINDINGS: No pneumatosis, free air or portal venous gas is present. No renal, ureteral or bladder calculi are present. There is no hydronephrosis. A Dominguez balloon within the bladder is noted. Hyperdense material within the bladder is again noted. This suggests a moderate amount of clot. Sensitivity for detection of urothelial lesions is diminished on unenhanced exam. Prostate is enlarged, measuring 6.5 cm in caliber. A small amount of hemorrhage within the right groin is noted. Density of the clot has decreased since prior CT. Evaluation the remainder of the abdomen and pelvis is suboptimal on this unenhanced examination. Liver, spleen, adrenal glands and pancreas are unremarkable with the exception of pancreatic glandular atrophy. There is no lymphadenopathy. There is no evidence for a bowel obstruction. Note is made of extensive colonic diverticulosis without evidence for acute diverticulitis. IMPRESSION: 1. No urinary calculi or hydronephrosis. 2. Moderate amount of hyperdense material within the bladder consistent with cl ot. Dominguez balloon within the bladder. 3. Enlarged prostate. 4. Redemonstration of a small amount of hemorrhage within the right groin which has decreased in density since prior CT. ACT 112: Negative or not required by law. Electronically signed by: Issa Graf M.D. 05/24/2024 11:[address] 05/30/24 13:38 CT head without contrast History: Altered mental status Comparison: 05/18/2024 Technique: Using multidetector thin collimation helical acquisition technique, axial, coronal and sagittal CT images from the skull base to the vertex were obtained without intravenous contrast. Dose reduction techniques were achieved by using automatic exposure control and/or adjustment of mA and/or kV according to patient size and/or use of iterative reconstruction technique. Findings: No intracranial hemorrhage, mass-effect, or midline shift. The ventricles are proportionate to the cerebral sulci. There is marked cerebral atrophy. Evolving areas of previously seen infarct which are decreasing in conspicuity in the high left frontal lobe, the left caudate nucleus, and in the left temporal parietal lobe. No convincing evidence for new infarct. The basal cisterns are patent. The visualized paranasal sinuses are clear. Mastoid air cells are clear. Impression: No acute intracranial pathology. Electronically signed by Sathya Claire 05-30-2024 3:13 PM
[2024-07-03] MEDS ORDERED: VANCOMYCIN CONSULT ACTIVE PRN (12:43)
[2024-07-03] MEDS: VANCOMYCIN HCL 1,500 MG in SODIUM CHLORIDE 0.9% 500 ML IV STA (14:16)
[2024-07-03] MEDS: LACTATED RINGER'S 500 ML IV ONE (15:13)
--- NOTE | 2024-07-03 15:30 | Pharmacy Report ---
Pharmacy PK ABX Note - Date of Service July 03, 2024 - Assessment and Plan Assessment 84 year old M receiving vancomycin for treatment of enterococcal UTI. Patient has an amoxicillin allergy thus avoiding using ampicillin/amoxicillin and complicated infection can't be ruled out due to patient's altered mental status. Patient has been admitted since 05/18 and had a Dominguez catheter placed 07/01. Patient is afebrile, however is confused and hypotensive with urinary retention per discussion with the provider. Day # 1 of antimicrobial therapy. Plan Vancomycin * Loading dose: 1500 mg IV x 1 * Maintenance dose: 1250 mg IV every 24 hours starting tomorrow * Regimen is predicted to achieve target AUC/AMBER of 400-600 mg/L.hr * Random level ordered for: 07/05/24 with AM labs Pharmacy will continue to follow and will adjust dose/frequency as necessary. Thank you. Pharmacy has transitioned to AUC monitoring for vancomycin. AUC/AMBER is the preferred PK/PD target and is associated with decreased risk of nephrotoxicity compared to traditional trough targets.
[2024-07-04 07:23] LABS: Basophils # (auto) 0.05 K/uL (0.00-0.20); Basophils % (auto) 0.7 %; Eosinophils # (auto) 0.02 K/uL (0.00-0.50); Eosinophils % (auto) 0.3 %; Hematocrit (blood only) 33.6 % (42.0-52.0); Hemoglobin 11.2 g/dl (14.0-18.0); Immature Granulocytes % (auto) 1.3 %; Lymphocytes # (auto) 1.17 K/uL (1.20-3.40); Lymphocytes % (auto) 15.5 %; Mean Corpuscular Hgb Conc 33.3 g/dL (32.0-36.0); Mean Platelet Volume 10.1 fL (9.4-12.4); Monocytes # (auto) 0.65 K/uL (0.11-0.59); Monocytes % (auto) 8.6 %; Neutrophils # (auto) 5.58 K/uL (1.40-6.50); Neutrophils % (auto) 73.6 %; Platelet Count 248 K/uL (130-400); Red Blood Count 3.86 M/uL (4.70-6.10); White Blood Count 7.57 K/ul (4.8-10.8)
[2024-07-04 07:37] LABS: Albumin Globulin Ratio 1.2 (0.9-2); Albumin Level 3.7 gm/dl (3.4-5.0); Bilirubin,Total 0.6 mg/dl (0.2-1.0); Calcium 9.7 mg/dl (8.6-10.3); Creatinine Clr Calc Pharmacy 46.7 ml/min; Globulin 3.2 gm/dl (2.5-4.0); Potassium 3.8 mmol/L (3.5-5.1); Total Protein 6.9 gm/dl (6.0-8.3)
--- NOTE | 2024-07-04 11:35 | Hospitalist Progress Note ---
Date of Service July 04, 2024 Assessment & Plan (1) Acute drug-induced confusion: (2) Aphasia due to recent cerebrovascular accident (CVA): (3) Acute urinary retention: Plan Mg Little is an 84y/o M with PMHx significant for DMII, diabetic polyneuropathy, alcohol use, arthritis, gout, HTN, GERD, Anderson's esophagus, diverticulitis, CKD stage III and recent acute ischemic left MCA stroke who presented to the ED via EMS from [facility] on 05/18/2024 sec ondary to increased lethargy. Pertinent recent hospital course: Patient was recently admitted to [facility] on 05/08/2024 with acute onset of right- sided weakness and was ultimately found to have an acute CVA due to left MCA M3 branch occlusion, received TNK at that time. Had worsening expressive aphasia, new right-sided facial drooping and right hemiparesis on 05/09/2024, repeat CTA revealed possible residual thrombus in the M2 segment therefore the patient was transferred to [facility]. At [facility], CTP showed slowed perfusion in the left hemisphere. DSA was performed and no LVO was found, but LICA stent was placed. MRI brain showed multiple small acute infarcts in the left cerebral hemisphere, the largest in the parietal lobe. These are in the middle anterior cerebral a rtery distribution. Small petechial hemorrhage in the left postcentral gyrus. TTE showing small PFO, unlikely contributory. Clinical course was complicated by hyperactive delirium which required Precedex which was eventually transitioned to scheduled Seroquel. LTM EEG showed slowing but no epileptiform activity. Initially required NG tube due to poor oral tolerance but with resolution of his delirium he began eating PO. He was evaluated by speech therapy at [facility] who recommended soft & bite-sized solids with thin liquids. Was then discharged to [facility]. While there, had Seroquel dose increased due to agitation (75mg HS) and presented to [facility] on 05/18/[address] from 05/18/2024 showed subacute infarcts similar in distribution to areas of infarct seen on brain MRI done 05/10/24 at [facility] per [facility] records. Acute Drug-Induced Confusion, Delirium Severe Expressive Aphasia & Cognitive Changes 2/2 Recent CVA -Repeat head CT on 05/30 negative, shows evolving changes of recent CVA but decreasing in size. -Seroquel discontinued. Currently maintaining on Zyprexa 5mg QHS started on 06/11. Continue Abilify 5mg BID as well. Delirium precautions. Noted R arm contracture. Unfortunately unlikely to make any significant recovery at this point. Continue DAPT and statin for recent CVA. Feel he is at his new medical baseline and would be best suited at SNF; he will likely need long-term placement after rehab stay. Acute Urinary Retention -Patient required straight cath x 3 in 24 hours -Dominguez placed on 07/01, started tamsulosin, possible void trial in a few days -UCx + Enterococcus facialis; not covered by IV ceftriaxone Given hypotension and recent urinary retention, will continue IV Vanco- started on 07/03- patient has allergy to amoxicillin CKD Stage III -Cr was previously elevated at 1.85 on admission, trended up to 2.57 on 05/22/2024. Downtrended to 1.2 on 06/20/24. -Appears baseline Cr since 2019 has trended around 1.3-1.6 -Follow renal function -Follows with [facility] [Dr. Mackey]. HTN All BP meds were previously on hold 2/2 relative hypotension. Currently only on hydralazine 10mg BID for systolic BP > 130. Losartan and chlorthalidone discontinued. May be able to discontinue hydralazine as well 2/2 recent normotensive pressures - has not required it for several days DMII Chronic, stable Hgb A1c was 7.2 on 05/09/2024 SSI discontinued 2/2 lower BSGs Given condition/age, tight BSG control not recommended. Continue BSG checks BID. DVT Prophylaxis: SQ Heparin Code Status: DNR/DNI - No Resuscitation PCP: Art Cavazos DO Disposition: Stable for discharge, still awaiting placement. CM and patient's daughter, Marcia [ ], heavily involved with placement process. I spent a total of 30 minutes coordinating, documenting, and providing care for this patient excluding time spent in the performance of separately billed services. This included personally reviewing all current laboratories and imaging studies, medication reconciliation, outpatient chart review, and discussion with specialists. Admission and Anticipated Discharge Date Admission Date: May 20, 2024 Subjective Patient seen and examined. Confused at baseline. Denies any complaints overnight. Per nursing, no acute events overnight Physical Exam Constitutional: WD/WN, vitals as above no acute distress Eyes: PERRL, conjunctivae normal, anicteric sclerae ENMT: external ear and nose normal, oropharynx normal Neck: trachea midline, no thyromegaly Respiratory: normal respiratory effort, lungs clear to auscultation Cardiovascular: RRR, no murmur, no edema Gastrointestinal (Abdomen): normal bowel sounds, soft, nontender, no hepatosplenomegaly Musculoskeletal: no cyanosis or clubbing, extremities motor strength 5/5 Skin: no rashes, warm and dry Neurologic: PERRL, EOMI, accommodation nl, no face palsy, no dysarthria Psychiatric: A+Ox3, euthymic affect Orientation: oriented to person Lymphatic: no cervical or axillary lymphadenopathy Results & Data Results & Data Vital Signs (Past 12 Hours) Vital Signs Temp Pulse Resp BP Pulse Ox O2 Del Method 07/04/24 09:31 Room Air 07/04/24 07:26 36.8 C 82 17 139/102 H 96 Room Air
[2024-07-04] MEDS: VANCOMYCIN HCL 1,250 MG in SODIUM CHLORIDE 0.9% 250 ML IV SCH (14:30)
[2024-07-05 05:59] LABS: Basophils # (auto) 0.04 K/uL (0.00-0.20); Basophils % (auto) 0.5 %; Eosinophils # (auto) 0.01 K/uL (0.00-0.50); Eosinophils % (auto) 0.1 %; Hematocrit (blood only) 35.4 % (42.0-52.0); Hemoglobin 11.7 g/dl (14.0-18.0); Immature Granulocytes # (auto) 0.03 K/uL (0.01-0.20); Immature Granulocytes % (auto) 0.4 %; Lymphocytes # (auto) 1.13 K/uL (1.20-3.40); Mean Corpuscular Hemoglobin 28.3 pg (25.0-34.0); Mean Corpuscular Hgb Conc 33.1 g/dL (32.0-36.0); Mean Corpuscular Volume 85.7 fL (80.0-100.0); Mean Platelet Volume 9.9 fL (9.4-12.4); Monocytes # (auto) 0.59 K/uL (0.11-0.59); Monocytes % (auto) 7.8 %; Neutrophils # (auto) 5.73 K/uL (1.40-6.50); Neutrophils % (auto) 76.2 %; Platelet Count 255 K/uL (130-400); RDW Standard Deviation 43.8 fL (36.4-46.3); Red Blood Count 4.13 M/uL (4.70-6.10); White Blood Count 7.53 K/ul (4.8-10.8)
[2024-07-05 06:14] LABS: Albumin Globulin Ratio 1.1 (0.9-2); Albumin Level 3.7 gm/dl (3.4-5.0); BUN Creatinine Ratio 24.4 (10-20); Bilirubin,Total 0.7 mg/dl (0.2-1.0); Calcium 9.8 mg/dl (8.6-10.3); Creatinine Clr Calc Pharmacy 47.8 ml/min; Globulin 3.3 gm/dl (2.5-4.0); Potassium 3.8 mmol/L (3.5-5.1)
--- NOTE | 2024-07-05 09:12 | Hospitalist Progress Note ---
Date of Service July 05, 2024 Assessment & Plan (1) Acute drug-induced confusion: (2) Aphasia due to recent cerebrovascular accident (CVA): (3) Acute urinary retention: Plan Mg Little is an 84y/o M with PMHx significant for DMII, diabetic polyneuropathy, alcohol use, arthritis, gout, HTN, GERD, Anderson's esophagus, diverticulitis, CKD stage III and recent acute ischemic left MCA stroke who presented to the ED via EMS from [facility] on 05/18/2024 se condary to increased lethargy. Pertinent recent hospital course: Patient was recently admitted to [facility] on 05/08/2024 with acute onset of right- sided weakness and was ultimately found to have an acute CVA due to left MCA M3 branch occlusion, received TNK at that time. Had worsening expressive aphasia, new right-sided facial drooping and right hemiparesis on 05/09/2024, repeat CTA revealed possible residual thrombus in the M2 segment therefore the patient was transferred to [facility]. At [facility], CTP showed slowed perfusion in the left hemisphere. DSA was performed and no LVO was found, but LICA stent was placed. MRI brain showed multiple small acute infarcts in the left cerebral hemisphere, the largest in the parietal lobe. These are in the middle anterior cerebral artery distribution. Small petechial hemorrhage in the left postcentral gyrus. TTE showing small PFO, unlikely contributory. Clinical course was complicated by hyperactive delirium which required Precedex which was eventually transitioned to scheduled Seroquel. LTM EEG showed slowing but no epileptiform activity. Initially required NG tube due to poor oral tolerance but with resolution of his delirium he began eating PO. He was evaluated by speech therapy at [facility] who recommended soft & bite-sized solids with thin liquids. Was then discharged to [facility]. While there, had Seroquel dose increased due to agitation (75mg HS) and presented to [facility] on 05/18/[address] from 05/18/2024 showed subacute infarcts similar in distribution to areas of infarct seen on brain MRI done 05/10/24 at [facility] per [facility] records. Acute Drug-Induced Confusion, Delirium Severe Expressive Aphasia & Cognitive Changes 2/2 Recent CVA -Repeat head CT on 05/30 negative, shows evolving changes of recent CVA but decreasing in size. -Seroquel discontinued. Currently maintaining on Zyprexa 5mg QHS started on 06/11. Continue Abilify 5mg BID as well. Delirium precautions. Noted R arm contracture. Unfortunately unlikely to make any significant recovery at this point. Continue DAPT and statin for recent CVA. Feel he is at his new medical baseline and would be best suited at SNF; he will likely need long-term placement after rehab stay. Acute Urinary Retention -Patient required straight cath x 3 in 24 hours -Dominguez placed on 07/01, started tamsulosin, possible void trial in a few days -UCx + Enterococcus facialis; not covered by IV ceftriaxone Given hypotension and recent urinary retention, will continue IV Vanco- started on 07/03 x 7 days- patient has allergy to amoxicillin CKD Stage III -Cr was previously elevated at 1.85 on admission, trended up to 2.57 on 05/22/2024. Downtrended to 1.2 on 06/20/24. -Appears baseline Cr since 2019 has trended around 1.3-1.6 -Follow renal function -Follows with [facility] [Dr. Mackey]. HTN All BP meds were previously on hold 2/2 relative hypotension. Currently only on hydralazine 10mg BID for systolic BP > 130. Losartan and chlorthalidone discontinued. May be able to discontinue hydralazine as well 2/2 recent normotensive pressures - has not required it for several days DMII Chronic, stable Hgb A1c was 7.2 on 05/09/2024 SSI discontinued 2/2 lower BSGs Given condition/age, tight BSG control not recommended. Continue BSG checks BID. DVT Prophylaxis: SQ Heparin Code Status: DNR/DNI - No Resuscitation PCP: Art Cavazos DO Disposition: Stable for discharge, still awaiting placement. CM and patient's daughter, Marcia [ ], heavily involved with placement process. I spent a total of 30 minutes coordinating, documenting, and providing care for this patient excluding time spent in the performance of separately billed services. This included personally reviewing all current laboratories and imaging studies, medication reconciliation, outpatient chart review, and discussion with specialists. Admission and Anticipated Discharge Date Admission Date: May 20, 2024 Subjective Patient seen and examined. Confused at baseline. Denies any complaints overnight. Per nursing, no acute events overnight Physical Exam Constitutional: WD/WN, vitals as above no acute distress Eyes: PERRL, conjunctivae normal, anicteric sclerae ENMT: external ear and nose normal, oropharynx normal Neck: trachea midline, no thyromegaly Respiratory: normal respiratory effort, lungs clear to auscultation Cardiovascular: RRR, no murmur, no edema Gastrointestinal (Abdomen): normal bowel sounds, soft, nontender, no hepatosplenomegaly Musculoskeletal: no cyanosis or clubbing, extremities motor strength 5/5 Skin: no rashes, warm and dry Neurologic: PERRL, EOMI, accommodation nl, no face palsy, no dysarthria Psychiatric: A+Ox3, euthymic affect Orientation: oriented to person Lymphatic: no cervical or axillary lymphadenopathy Results & Data Results & Data Vital Signs (Past 12 Hours) Vital Signs Temp Pulse Resp BP Pulse Ox O2 Del Method 07/05/24 07:11 37.6 C H 87 18 104/65 95 Room Air
[2024-07-06 08:37] LABS: Basophils # (auto) 0.07 K/uL (0.00-0.20); Eosinophils # (auto) 0.02 K/uL (0.00-0.50); Eosinophils % (auto) 0.3 %; Hematocrit (blood only) 35.5 % (42.0-52.0); Hemoglobin 11.5 g/dl (14.0-18.0); Immature Granulocytes # (auto) 0.03 K/uL (0.01-0.20); Immature Granulocytes % (auto) 0.4 %; Lymphocytes # (auto) 1.08 K/uL (1.20-3.40); Lymphocytes % (auto) 15.2 %; Mean Corpuscular Hemoglobin 28.8 pg (25.0-34.0); Mean Corpuscular Hgb Conc 32.4 g/dL (32.0-36.0); Mean Corpuscular Volume 88.8 fL (80.0-100.0); Monocytes # (auto) 0.62 K/uL (0.11-0.59); Monocytes % (auto) 8.7 %; Neutrophils # (auto) 5.27 K/uL (1.40-6.50); Neutrophils % (auto) 74.4 %; Platelet Count 245 K/uL (130-400); RDW Coefficient of Variation 14.5 % (11.5-14.5); White Blood Count 7.09 K/ul (4.8-10.8)
[2024-07-06 08:54] LABS: Albumin Globulin Ratio 1.1 (0.9-2); Albumin Level 3.8 gm/dl (3.4-5.0); BUN Creatinine Ratio 23.1 (10-20); Bilirubin,Total 0.6 mg/dl (0.2-1.0); Calcium 9.7 mg/dl (8.6-10.3); Creatinine Clr Calc Pharmacy 32.7 ml/min; Globulin 3.4 gm/dl (2.5-4.0); Total Protein 7.2 gm/dl (6.0-8.3)
--- NOTE | 2024-07-06 13:15 | Hospitalist Progress Note ---
Date of Service July 06, 2024 Assessment & Plan (1) Hypovolemia dehydration: (2) Urinary tract infection due to Enterococcus: (3) Recent cerebrovascular accident (CVA): (4) Acute kidney injury superimposed on CKD: (5) Hemiparesis affecting right side as late effect of cerebrovascular accident (CVA): (6) Aphasia due to recent cerebrovascular accident (CVA): (7) Acute urinary retention: (8) Acute drug-induced confusion: (9) Diabetes mellitus, type II: Plan Patient status post CVA with aphasia, waxing and waning mental status, right hemiparesis. Patient's oral intake waxes and wanes as well. Today's laboratory studies consistent with Free water deficit/dehydration. Patient being treated for Enterococcus UTI with vancomycin, today will be 4 days, suspect this is adequate therapy. Will discontinue vancomycin after today's dose IV fluids for dehydration, monitor BMP Communication with case management, have sent out additional applications for possible long-term care, at this time no 1 has accepted him. Extensive conversation with patient's daughter via phone, explained his laboratory studies and evidence of dehydration. Explained that this is most likely will be a recurrent issue just because he cannot feed himself. She was quite clear that he would not want a feeding tube. I brought up palliative care services to her. She would be willing to speak with them and have additional goals of care conversation with them. At this time she definitely would want him to get IV fluids and treat any other acute issue that would arise before he would go to a rehab/long-term care facility Consult palliative care Continue therapies as able here in the hospital understanding that we are not a rehab facility Encourage free water intake, offer drink every 2 hours 51 minutes spent on reviewing record, evaluation patient bedside, communication with nurse, communication with family, communication with other support services, interpretation of diagnostic data and placement of orders. Admission and Anticipated Discharge Date Admission Date: May 20, 2024 Subjective Patient a bit sleepy today. No other acute issues. Nurse did note that sometimes he misses meals because he is sleepy. Physical Exam Physical Exam: Constitutional: Drowsy but does awaken, thin, frail, cachectic HEENT: Mucous membranes dry Lungs: Decreased breath sounds CV: S1-S2, regular Abdomen: Soft, nontender, nondistended Extremities: No significant edema Neuro: Aphasia,Right hemiparesis Psych: Depressed affect Results & Data Results & Data Vital Signs (Past 12 Hours) Vital Signs Temp Pulse Resp BP Pulse Ox O2 Del Method 07/06/24 07:24 36.4 C L 65 18 100/61 97 Room Air Laboratory Results Reviewed imaging, laboratory and diagnostic studies. Pertinent findings as below. Hemoglobin 11.5 WBCs 7.0 Sodium 147 Potassium 4.0 Chloride 114 BUN 36 Creatinine 1.56 mg (9) Diabetes mellitus, type II Diabetes mellitus buttermaker helper insulin use: without buttermaker helper use Diabetes mellitus complication status: with kidney complications Diabetes mellitus complication detail: with chronic kidney disease Chronic kidney disease stage: stage 3 (moderate) Chronic kidney disease stage 3 subtype: unspecified whether 3a or 3b Qualified Code(s): E11.22 - Type 2 diabetes mellitus with diabetic chronic kidney disease; N18.30 - Chronic kidney disease, stage 3 unspecified
[2024-07-06] MEDS: DEXTROSE 5% 1,000 ML IV SCH (15:34)
[2024-07-07 08:18] LABS: Calcium 8.9 mg/dl (8.6-10.3); Creatinine Clr Calc Pharmacy 35.4 ml/min; Potassium 3.8 mmol/L (3.5-5.1)
--- NOTE | 2024-07-07 11:47 | Palliative Care Consultation ---
Date of Consultation July 07, 2024 Assessment & Plan (1) Palliative care by specialist: Met with pt at bedside, awake and alert but nonverbal. No visitors present. Phone contact made with pt's dtr/HCPYONI Kennedy. Introduced Palliative Medicine and explained our role in advanced care planning, symptom management and navigation through the progression of life limiting disease. Patient's daughter was receptive to palliative services for goals of care discussions. Reviewed we are different from hospice, a home health nurse visiting service. (2) Quality of life palliative care encounter: (3) Counseling regarding advanced directives and goals of care: Plan Assessed pt at bedside, no visitors present. 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 He is able to say "no" and mumbles incomprehensible words . He does answer "no" to all questions, even those where "yes" would be appropriate. Patient does currently lack decisional capacity based on the inability to convey understanding of personal PMHx, current medical condition, treatment options nor the risks / benefits of those options, and lack of ability to make decisions based on such knowledge. Hospital does have written documentation of patient wishes concerning his chosen proxy for medical decisions and Pt does require a proxy for medical decisions. AD paperwork on file which was properly executed by patient on 10/02/2022 designates patient's daughter Marcia Urban ([phone]) as primary HCPOA and his granddaughter Muna Hoyt ([phone]) as secondary HCPOA for all medical decisions in the event she lacks decisional capacity. They both currently live in [place]. 45 minute phone conversation held with pt's dtr/primary HCPOA Marcia who lives in [place]. Marcia shared that the pt was completely independent with all ADLs and iADLs prior to his stroke in mid April 2024. She shared that he was living independently, still driving, and even jogging multiple times per week. She shared concern that the pt is not being encouraged to do anything while in the hospital and is generally "ignored and borderline neglected". She shared belief that PT/OT had not yet seen the pt throughout this lengthy admission and he is "just laying there in bed all day without anyone talking to him or trying to help him". She shared that she has visited with pt twice during this admission, last on June 11. She feels that during her visits and when other family members visit, pt is communicative, appropriate and follows commands. She questions why pt "is just left to lie there and get more depressed". She said that she has heard from multiple healthcare practitioners who have told her that the pt does not follow commands nor answer questions. She shared that she does "not agree with that because I have seen him speak with my uncle and family last time I was there". She shared belief that it is simply delirium or depression causing him to not participate in his care. I shared with Marcia that it is not unusual for patients to be more interactive with the familiar voices of friends and family. I encouraged her to treasure those moments and encouraged visitation. She stated that she wants patient discharged to a SNF in [facility] where his brother can be present for meals and therapy to encourage pt participation. Mary Marcia understand that to qualify for IPR pt must be able AND willing to participate with PT/OT and multiple notes throughout admission document pt's resistance to participate with PT as well as nursing staff. Marcia stated that she does not believe this because she has seen patient respond appropriately. Mary Marcia understand that pt's cognitive state may wax and wane, but to improve in health and strength he would need to consistently cooperate with therapy and thus far he has not even intermittently worked with PT after multiple attempts. I again encouraged visitation, Marcia shared that pt's brother does occasionally visit and has told her that patient also speaks with him. I encouraged her to request her uncle set up a video chat with her form pt's room so that she can see pt in his current state. I shared my contact info and asked that she have her uncle call me when he plans a visit so that I can assess pt's cognitive ability while family is present. Marcia shared frustration that pt is still in hospital and desire to have pt DC to SNF in the [facility] where his brother can be present to "be sure he gets the attention he needs" and is encouraged to eat and participate with PT. Discussed that pt has been dehydrated and malnourished due to poor PO intake and this will likely recur. Discussed that pt is currently not taking enough PO for proper nutrition nor hydration and may need supplemental feeding. Shared concern that if pt is discharged without a plan in place for adequate nutrition, the SNF will likely send pt back to hospital. She emphasized desire for NO artificial feeds through a tube. Discussed options for hospice care and pleasure feeds if pt does not want feeding tube. Discussed hospice benefit: an interdisciplinary program offered by nurses, nurses aides, social workers, chaplains and a medical translator for patients with a terminal condition and a life expectancy of less than 6 months. This is covered by Medicare at 100%/no out of pocket expense to patient and all meds/supplies needed by patient for the reason they are on hospice are paid for/covered by hospice. The goal is assure quality of life of the patient in their home setting (home, snf, inpatient hospice setting) by providing symptoms management, psychosocial and spiritual support. However, they cannot offer 24 hours care and if the family is unable to provide that care, they will have to consider personal care with out of pocket cost vs. snf placement. We discussed the goals of hospice as a patient service and the goals of care; we discussed EOL trajectories and transitions mercedez the emotional impact of realizing mortality as a concrete reality from prior abstract considerations. Pt was reassured that no matter where they are along this trajectory, they are not alone - their medical team will remain by their side through their journey. Discussed the pros/cons of accepting help when especially weakened and distressed by pain-which would also help provide relief/decrease caregiver burden/strain. Later in day, I rec'd incoming call from pt's brother Mikey Little and NEGRITO Georgie [place] ([phone]). Discussed GOC and relayed previous conversation as above for 45min. Mikey and Georgie both agree that pt has been very clear about his wishes and values for several years. They shared that he was a very active and proud nab prior to his stroke last year. Mikey expressed concern that Marcia is not accepting how sick the pt really is. He shared that he lives in [facility] and not able to visit in the icy weather, but he had been to visit about 3 weeks ago. At that time Mikey reports that the pt was just lying in bed, not really reacting to them but seemed to be trying to speak and occasionally seemed to laugh. He said that if the pt does not regain his independence and cognitive function he would consider this a fate worse than . Georgie also shared that the pt has always said that he would not want to be fed and kept alive on machines. We discussed concerns that if pt does not take enough food to sustain life and cannot participate with PT/OT how he appears now is likely the best he will ever be. Georgie shared belief that if his current state will not improve he would want to just be kept comfortable for whatever time he has left. They shared desire to have pt discharged to SNF in [facility] where family can visit him. They shared that the pt does not have anyone in the [facility] that will visit with him. Mikey shared that pt does have a son, Mg Little, who lives in [place], but he will not visit with pt. Both shared that the pt "would tell us to just let him if he could talk". Discussed hospice as described above. Mikey shared that he will be discussing this with Marcia guzmán. No decisions made today, I will plan to revisit [facility] with family tomorrow. Case discussed with MERRITT CLARK and attending team. History of Present Illness Reason for Consultation: goals of care Requesting Physician: Avery Hinojosa MD Attending Physician: Brando Nunez MD History of Present Illness Mg Little is a 84 y/o male with PMHx including recent acute CVA, DM2, CKD3, MCI, HTN, GERD, and dyslipidemia, sent to ED from [facility] on 05/18/2024 with increased lethargy. 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 Developed expressive aphasia and word finding after administration of TNK but had significant improvement in the right sided weakness. Early on 05/09, pt had worsening expressive aphasia, new right facial droop, and right hemiparesis. Repeat CT head did not show any new acute intracranial findings but CTA showed possible residual thrombus in the M2 segment so pt was transferred to [facility] for possible thrombectomy. Angiography showed no LVO so he was treated with LICA stent and DAPT. While admitted at [facility], he did have issues with hyperactive delirium that was initially treated with Precedex before being transitioned to oral Seroquel. The dose was rapidly titrated to the discharge dose of 25 mg in the AM, 50 mg HS, which seemed to control the symptoms per neurology notes from [facility]. He was evaluated by speech therapy who recommended soft & bite-sized solids with thin liquids, HOB at 90 degrees for all intake including meds. Pt was discharged to [facility] 05/17 for rehab. [facility] was that patient reported increased agitation and increased Seroquel dose to 75 mg; after which pt was sent to the ED for somnolence. Pt has had protracted admission without significant improvement in cognitive or functional ability. Allergies Allergy/AdvReac Type Severity Reaction Status Date / Time amoxicillin Allergy Mild FEVER, RASH Verified 07/18/22 20:15 Home Medications Medication Instructions Recorded Confirmed Type aspirin 81 mg tablet,delayed 81 mg PO DAILY 07/18/22 05/18/24 History release cholecalciferol (vitamin D3) 10 20 mcg PO DAILY 07/18/22 05/18/24 History mcg (400 unit) tablet (Vitamin D3) cyanocobalamin (vitamin B-12) 1,000 mcg PO QPM 07/18/22 05/18/24 History 1,000 mcg tablet (Vitamin B-12) empagliflozin 25 mg tablet 25 mg PO QAM 07/18/22 05/18/24 History (Jardiance) ferrous sulfate 325 mg (65 mg 325 mg PO QPM 07/18/22 05/18/24 History iron) tablet [id number]-[id number] C-Mn 500 1 cap PO AMHS 07/18/22 05/18/24 History mg-400 mg capsule allopurinol 100 mg tablet 100 mg PO DAILY 05/08/24 05/18/24 History hydralazine 10 mg tablet 10 mg PO BID 05/08/24 05/18/24 History latanoprost 0.005 % eye drops 1 drp OPB QPM 05/08/24 05/18/24 History acetaminophen 325 mg tablet 650 mg PO QID PRN Fever Or Pain 05/18/24 05/18/24 History atorvastatin 40 mg tablet 40 mg PO PM 05/18/24 05/18/24 History chlorhexidine gluconate 0.12 % 15 ml buccal BID 05/18/24 05/18/24 History mouthwash chlorthalidone 25 mg tablet 25 mg PO DAILY 05/18/24 05/18/24 History clopidogrel 75 mg tablet 75 mg PO DAILY 05/18/24 05/18/24 History melatonin 3 mg tablet 3 mg PO HS 05/18/24 05/18/24 History olmesartan 20 mg tablet 20 mg PO DAILY 05/18/24 05/18/24 History pantoprazole 40 mg tablet,delayed 40 mg PO DAILY 05/18/24 05/18/24 History release potassium chloride 10 mEq 40 meq PO DAILY 05/18/24 05/18/24 History tablet,extended release(part/cryst) quetiapine 25 mg tablet 25 mg PO DAILY 05/18/24 05/18/24 History quetiapine 50 mg tablet 50 mg PO HS 05/18/24 05/18/24 History sennosides 8.6 mg tablet (senna) 8.6 mg PO BID 05/18/24 05/18/24 History Patient History Medical History (Updated 07/07/24 @ 12:31 by RANDY Gayle) Diverticulitis GI bleed Alcohol use HTN (hypertension) CKD (chronic kidney disease), stage III Diabetes mellitus, type II GERD (gastroesophageal reflux disease) Surgical History (Updated 06/09/24 @ 00:07 by Carl Guillen) History of vasectomy History of colonoscopy Family History Other Alzheimer disease Social History Smoking Status: Unknown if ever smoked Second Hand Exposure: No; Preferred Language: Maltese Communication Ability: Impaired Jailer Required: No Beliefs That Will Affect Care: None Current Living Situation: Rehab Assistive Devices: None Review of Systems Review of Systems: Unobtainable due to cognitive status Physical Exam Constitutional: + ill appearing, + cachectic and + alter ed mental status; + uncooperative Eyes: constant moaning and garbled speech, does not follow commands ENMT: external ear and nose normal, oropharynx normal Neck: trachea midline, no thyromegaly Respiratory: normal respiratory effort and symmetric chest movement Auscultation: + diminished lung sounds and + crackles Cardiovascular: RRR, no murmur, no edema Gastrointestinal (Abdomen): normal bowel sounds, soft, nontender, no hepatosplenomegaly Skin: + turgor decreased, + dry skin and + pal chucky Neurologic: awake and + confused Speech / Cognition: + abnormal speech and + expressive aphasia CHERYL fully 2/2 AMS, does not follow commands and has expressive aphasia at baseline Results & Data Vital Signs (Past 12 Hours) Vital Signs Temp Pulse Resp BP Pulse Ox O2 Del Method 07/07/24 07:42 36.4 C L 74 18 150/69 H 95 Room Air Laboratory Results Abnormal lab results 07/06/24 07/07/24 Range/Units 21:11 07:35 Chloride 110 H (98-107) mmol/L BUN 36 H (6-23) mg/dl Creatinine 1.44 H (0.6-1.4) mg/dl BUN/Creatinine Ratio 25.0 H (10-20) Glucose 219 H (70-99(Fasting)) mg/dl POC Glucose 121 H (70-99) mg/dl Diagnostic Findings Chest X-Ray 05/18/24 11:00 XR chest 1V portable CLINICAL HISTORY: Altered mental status COMPARISON STUDY: Chest radiograph April 08, 2018. FINDINGS: Lung volumes are normal. There is no consolidation. Linear right lower lung density suggests atelectasis. There is no pneumothorax or pleural effusion. Cardiac size is normal. Mediastinal contours are normal. There is no evidence for pulmonary edema. IMPRESSION: No acute cardiopulmonary findings. ACT 112: Negative or not required by law. Electronically signed by: Issa Graf M.D. 05/18/2024 11:41 AM Abdomen/Pelvis CT 05/24/24 08:48 CT OF THE ABDOMEN AND PELVIS WITHOUT CONTRAST CLINICAL HISTORY: Gross hematuria. COMPARISON STUDY: CT of the abdomen and pelvis May 18, 2024. TECHNIQUE: Axial images of the abdomen and pelvis were obtained without IV contrast. Images were reviewed in the axial, sagittal, and coronal planes. Automated exposure control was utilized for the study. A dose lowering technique was utilized adhering to the principles of ALARA. FINDINGS: No pneumatosis, free air or portal venous gas is present. No renal, ureteral or bladder calculi are present. There is no hydronephrosis. A Dominguez balloon within the bladder is noted. Hyperdense material within the bladder is again noted. This suggests a moderate amount of clot. Sensitivity for detection of urothelial lesions is diminished on unenhanced exam. Prostate is enlarged, measuring 6.5 cm in caliber. A small amount of hemorrhage within the right groin is noted. Density of the clot has decreased since prior CT. Evaluation the remainder of the abdomen and pelvis is suboptimal on this unenhanced examination. Liver, spleen, adrenal glands and pancreas are unremarkable with the exception of pancreatic glandular atrophy. There is no lymphadenopathy. There is no evidence for a bowel obstruction. Note is made of extensive colonic diverticulosis without evidence for acute diverticulitis. IMPRESSION: 1. No urinary calculi or hydronephrosis. 2. Moderate amount of hyperdense material within the bladder consistent with clot. Dominguez balloon within the bladder. 3. Enlarged prostate. 4. Redemonstration of a small amount of hemorrhage within the right groin which has decreased in density since prior CT. ACT 112: Negative or not required by law. Electronically signed by: Issa Graf M.D. 05/24/2024 11:[address] 05/30/24 13:38 CT head without contrast History: Altered mental status Comparison: 05/18/2024 Technique: Using multidetector thin collimation helical acquisition technique, axial, coronal and sagittal CT images from the skull base to the vertex were obtained without intravenous contrast. Dose reduction techniques were achieved by using automatic exposure control and/or adjustment of mA and/or kV according to patient size and/or use of iterative reconstruction technique. Findings: No intracranial hemorrhage, mass-effect, or midline shift. The ventricles are proportionate to the cerebral sulci. There is marked cerebral atrophy. Evolving areas of previously seen infarct which are decreasing in conspicuity in the high left frontal lobe, the left caudate nucleus, and in the left temporal parietal lobe. No convincing evidence for new infarct. The basal cisterns are patent. The visualized paranasal sinuses are clear. Mastoid air cells are clear. Impression: No acute intracranial pathology. Electronically signed by Sathya Claire 05-30-2024 3:13 PM Medications Administered Current Inpatient Medications Acetaminophen (Acetaminophen 325 Mg Tab) 650 mg PO Q4H PRN PRN Reason: Pain/Fever Stop: 07/12/24 11:47 Last Admin: 07/03/24 17:15 Dose: 650 mg Allopurinol (Allopurinol 100 Mg Tab) 100 mg PO DAILY CRISTIAN Stop: 07/27/24 10:44 Last Admin: 07/07/24 10:36 Dose: 100 mg Aspirin (Aspirin 81 Mg Ectab) 81 mg PO QAM C[facility]STIAN Stop: 07/27/24 10:29 Last Admin: 07/07/24 10:36 Dose: 81 mg Atorvastatin Calcium (Atorvastatin 40 Mg Tab) 40 mg PO HS CRISTIAN Stop: 07/18/24 20:59 Last Admin: 07/06/24 21:52 Dose: 40 mg Chlorhexidine Gluconate (Chlorhexidine Gluconate 0.12% 480 Ml) 15 ml MT BID CRISTIAN Stop: 07/18/24 08:59 Last Admin: 07/07/24 10:38 Dose: 15 ml Clopidogrel Bisulfate (Clopidogrel Bisulfate 75 Mg Tab) 75 mg PO QAM C[facility]IAN Stop: 07/27/24 10:29 Last Admin: 07/07/24 10:35 Dose: 75 mg Cyanocobalamin (Cyanocobalamin (B-12) 500 Mcg Tablet) 1,000 mcg PO HS CRISTIAN Stop: 07/18/24 20:59 Last Admin: 07/06/24 21:52 Dose: 1,000 mcg Dextrose (Dextrose 50% 50 Ml Syringe) 25 - 50 ml IV UD PRN; Protocol PRN Reason: Hypoglycemia Protocol Stop: 07/17/24 21:30 Diclofenac Sodium (Diclofenac Sod 1% Gel 100 Gm Tube) 2 gm EXT BID CRISTIAN; Protocol Stop: 07/23/24 20:59 Last Admin: 07/07/24 10:36 Dose: 2 gm Glucagon (Glucagon For Inj 1 Mg Vial) 1 mg SQ UD PRN; Protocol PRN Reason: Hypoglycemia Protocol Stop: 07/17/24 21:30 Glucose (Glucose 40% Gel 15 Gm Tube) 15 - 30 gm PO UD PRN; Protocol PRN Reason: Hypoglycemia Protocol Stop: 07/17/24 21:30 Glucose (Glucose 10 Tab/Tube) 4 - 8 tab PO UD PRN; Protocol PRN Reason: Hypoglycemia Protocol Stop: 07/17/24 21:30 Heparin Sodium (Porcine) (Heparin Sod 5,000 Unit/0.5 Ml Vial) 5,000 units SQ Q12 CRISTIAN Stop: 07/21/24 10:29 Last Admin: 07/07/24 10:37 Dose: 5,000 units Dextrose (D5w) 1,000 mls @ 100 mls/hr IV .Q10H CIRSTIAN Stop: 07/07/24 12:59 Last Admin: 07/07/24 10:38 Dose: Not Given Latanoprost (Latanoprost 0.005% Op Soln 2.5 Ml Btl) 1 drops OPB [facility] Stop: 07/18/24 20:59 Last Admin: 07/06/24 21:51 Dose: 1 drops Lidocaine HCl (Lidocaine 2% Jelly 5 Ml Tube) 5 ml EXT PRN PRN PRN Reason: Pain Stop: 07/28/24 15:29 Magnesium Oxide (Magnesium Oxide 400 Mg Tab) 400 mg PO QAM [facility] Stop: 07/15/24 08:59 Last Admin: 07/07/24 10:36 Dose: 400 mg Miscellaneous (Carbohydrates For Hypoglycemia ) 15 - 30 gm PO UD PRN PRN Reason: Hypoglycemia Protocol Stop: 07/17/24 21:30 Olanzapine (Olanzapine 5 Mg Tablet) 5 mg PO [facility] Stop: 07/12/24 20:59 Last Admin: 07/06/24 21:52 Dose: 5 mg Pantoprazole Sodium (Pantoprazole 40 Mg Tab) 40 mg PO QAM [facility] Stop: 07/28/24 08:59 Last Admin: 07/07/24 10:36 Dose: 40 mg Sennosides (Senna 8.6 Mg Tab) 8.6 mg PO BID PRN PRN Reason: Constipation Stop: 07/18/24 08:59 Last Admin: 06/30/24 08:14 Dose: 8.6 mg Tamsulosin HCl (Tamsulosin Hcl 0.4 Mg Cap) 0.4 mg PO [facility] Stop: 07/31/24 20:59 Last Admin: 07/06/24 21:52 Dose: 0.4 mg Vitamin D (Cholecalciferol 10 Mcg (400 Units) Tab) [facility] Stop: 07/27/24 10:59 Last Admin: 07/07/24 10:36 Dose: 10 mcg PG Care Time/CCT Total # of Minutes Spent Total Time Spent with Patient: Total time spent is greater than 50% in coordination of care (as documented) at patient's floor/unit and/or counseling patient: Advanced Care Planning 06748 Advanced Care Planning 30 Min 79103 Advanced Care Planning Additional 30 [place] [address] IN/OBS CONSULT LVL 3,45M Patient Type New Medical Decision Making Moderate Complexity Diagnoses Palliative care by specialist Z51.5 Quality of life palliative care encounter Z51.5 Counseling regarding advanced directives and goals of care Z71.89 Additional Codes Advanced Care Planning - 40116 Advanced Care Planning 30 Min: 35746 Advanced Care Planning 30 Min ([id number]) Advanced Care Planning - 99268 Advanced Care Planning Additional 30 Min: 75922 Advanced Care Planning Additional 30 Min ([id number])
[2024-07-07] MEDS ORDERED: VANCOMYCIN CONSULT ACTIVE PRN (13:05)
--- NOTE | 2024-07-07 13:12 | Hospitalist Progress Note ---
Date of Service July 07, 2024 Assessment & Plan (1) Hypovolemia dehydration: (2) Urinary tract infection due to Enterococcus: (3) Recent cerebrovascular accident (CVA): (4) Acute kidney injury superimposed on CKD: (5) Hemiparesis affecting right side as late effect of cerebrovascular accident (CVA): (6) Aphasia due to recent cerebrovascular accident (CVA): (7) Acute urinary retention: (8) Acute drug-induced confusion: Plan Patient status post CVA with aphasia, waxing and waning mental status, right hemiparesis. Patient's oral intake waxes and wanes as well. Pt with labs on 07/06 that reflected dehydration and free water deficit given hypernatremia and elevated renal fxn, this is 06/27 to waxing and waning intake Patient being treated for Enterococcus UTI with vancomycin, will continue for a total of 7 days treatment given complicated UTI in a male pt with a callaway catheter Callaway cath was exchanged on 07/01 Pt completed 24hrs of IVF, will continue additional IVF for 1 more L, repeat BMP in a.m. Communication with case management, have sent out additional applications for possible long-term care, at this time no 1 has accepted him. Pt daughter had extensive conversation today with palliative care provider Sue Tomas regarding goals of care. Plan is for Sue to meet with a local family member to further discuss. I will reach out to Marcia tomorrow. Pt unfortunately at baseline with gradual decline due to poor oral intake/lack of ability to feed self. This will be a vicious cycle unfortunately. I feel a goals of care decision is appropriate and pt may even benefit from hospice services to prevent from unwanted hospitalization and stress on pt given his current state. Will further discuss with Marcia tomorrow to give her time to digest today's conversation with palliative Continue therapies as able here in the hospital understanding that we are not a rehab facility Encourage free water intake, offer drink every 2 hours 32 minutes spent on reviewing record, evaluation patient bedside, communication with nurse, communication with family, communication with other support services, interpretation of diagnostic data and placement of orders. Hospital Bed: l. The patient has a medical condition which requires positioning of the body in ways not feasible with ordinary bed due to his CVA. He also needs HOB elevated more than 30 degrees due to concern for aspiration in hx of CVA.. Admission and Anticipated Discharge Date Admission Date: May 20, 2024 Supervising Physician Co-Signing Physician Notes Pt seen and examined by me , care coordinated w/ B. SAKINA Pena, pls refer to her note above for further detail. Pt seen laying in bed in NAD. RITCHIE Davidson present at the bedside and discussed with in detail as well. Pt comfortable and denies any discomfort, smiling at times, denies having any concerns at this time. He has RUE contracture, and not moving his RLE. Lungs with some decreased breath sounds. Abdomen soft and nontender. Pt communicates w/ some difficulty but able to answer simple questions. CM involved in DC planning. MD Mayra I spent a total of 20 minutes coordinating, documenting, and providing care for this patient excluding time spend in the performance of separately billed services or time spent by another provider / QHP. Subjective Pt seen in 376-1. F/U CVA, awaiting placement. ROS difficult to obtain. He denies pain. Discussed with nurse who states he ate about 60-75% of breakfast and lunch. Encouraged nursing to wash face to help remove some dry skin. Review of Systems Review of Systems: Unobtainable due to cognitive status Physical Exam Physical Exam: Gen: Tall, Thin, appears more cachectic then my last eval, M, lying in bed, resting in bed HEENT: Normocephalic, atraumatic, conjunctivae moist, sclerae anicteric, mucous membranes dry. Lung: Clear to Auscultation bilaterally, no wheezes/rales/rhonchi Heart: Regular rate, regular rhythm, no murmurs, rubs, or gallops Abdomen: Soft, NT, ND +BS x 4 Extremities: No edema, RHP Skin: Warm, no rash, negative turgor. Results & Data Results & Data Vital Signs (Past 12 Hours) Vital Signs Temp Pulse Resp BP Pulse Ox O2 Del Method 07/07/24 07:45 Room Air 07/07/24 07:42 36.4 C L 74 18 150/69 H 95 Room Air Laboratory Results I personally and independently interpreted pts BMP [facility] 07/07/24 07:35 Sodium 141 Potassium 3.8 Chloride 110 H Carbon Dioxide 23 BUN 36 H Creatinine 1.44 H Glucose 219 H Calcium 8.9 Medications Administered Current Inpatient Medications Acetaminophen (Acetaminophen 325 Mg Tab) 650 mg PO Q4H PRN PRN Reason: Pain/Fever Stop: 07/12/24 11:47 Last Admin: 07/03/24 17:15 Dose: 650 mg Allopurinol (Allopurinol 100 Mg Tab) 100 mg PO DAILY [facility] Stop: 07/27/24 10:44 Last Admin: 07/07/24 10:36 Dose: 100 mg Aspirin (Aspirin 81 Mg Ectab) 81 mg PO QAM [facility] Stop: 07/27/24 10:29 Last Admin: 07/07/24 10:36 Dose: 81 mg Atorvastatin Calcium (Atorvastatin 40 Mg Tab) 40 mg PO HS [facility] Stop: 07/18/24 20:59 Last Admin: 07/06/24 21:52 Dose: 40 mg Chlorhexidine Gluconate (Chlorhexidine Gluconate 0.12% 480 Ml) 15 ml MT BID [facility] Stop: 07/18/24 08:59 Last Admin: 07/07/24 10:38 Dose: 15 ml Clopidogrel Bisulfate (Clopidogrel Bisulfate 75 Mg Tab) [facility] Stop: 07/27/24 10:29 Last Admin: 07/07/24 10:35 Dose: 75 mg Cyanocobalamin (Cyanocobalamin (B-12) 500 Mcg Tablet) 1,000 mcg PO [facility] Stop: 07/18/24 20:59 Last Admin: 07/06/24 21:52 Dose: 1,000 mcg Dextrose (Dextrose 50% 50 Ml Syringe) 25 - 50 ml IV UD PRN; Protocol PRN Reason: Hypoglycemia Protocol Stop: 07/17/24 21:30 Diclofenac Sodium (Diclofenac Sod 1% Gel 100 Gm Tube) 2 gm EXT BID [facility]; Protocol Stop: 07/23/24 20:59 Last Admin: 07/07/24 10:36 Dose: 2 gm Glucagon (Glucagon For Inj 1 Mg Vial) 1 mg SQ UD PRN; Protocol PRN Reason: Hypoglycemia Protocol Stop: 07/17/24 21:30 Glucose (Glucose 40% Gel 15 Gm Tube) 15 - 30 gm PO UD PRN; Protocol PRN Reason: Hypoglycemia Protocol Stop: 07/17/24 21:30 Glucose (Glucose 10 Tab/Tube) 4 - 8 tab PO UD PRN; Protocol PRN Reason: Hypoglycemia Protocol Stop: 07/17/24 21:30 Heparin Sodium (Porcine) (Heparin Sod 5,000 Unit/0.5 Ml Vial) 5,000 units SQ Q12 [facility] Stop: 07/21/24 10:29 Last Admin: 07/07/24 10:37 Dose: 5,000 units Latanoprost (Latanoprost 0.005% Op Soln 2.5 Ml Btl) 1 drops OPB HS [facility] Stop: 07/18/24 20:59 Last Admin: 07/06/24 21:51 Dose: 1 drops Lidocaine HCl (Lidocaine 2% Jelly 5 Ml Tube) 5 ml EXT PRN PRN PRN Reason: Pain Stop: 07/28/24 15:29 Magnesium Oxide (Magnesium Oxide 400 Mg Tab) 400 mg PO QAM [facility] Stop: 07/15/24 08:59 Last Admin: 07/07/24 10:36 Dose: 400 mg Miscellaneous (Carbohydrates For Hypoglycemia ) 15 - 30 gm PO UD PRN PRN Reason: Hypoglycemia Protocol Stop: 07/17/24 21:30 Olanzapine (Olanzapine 5 Mg Tablet) 5 mg PO [facility] Stop: 07/12/24 20:59 Last Admin: 07/06/24 21:52 Dose: 5 mg Pantoprazole Sodium (Pantoprazole 40 Mg Tab) 40 mg PO QAM [facility] Stop: 07/28/24 08:59 Last Admin: 07/07/24 10:36 Dose: 40 mg Sennosides (Senna 8.6 Mg Tab) 8.6 mg PO BID PRN PRN Reason: Constipation Stop: 07/18/24 08:59 Last Admin: 06/30/24 08:14 Dose: 8.6 mg Tamsulosin HCl (Tamsulosin Hcl 0.4 Mg Cap) 0.4 mg PO [facility] Stop: 07/31/24 20:59 Last Admin: 07/06/24 21:52 Dose: 0.4 mg Vitamin D (Cholecalciferol 10 Mcg (400 Units) Tab) 10 mcg PO QAM [facility] Stop: 07/27/24 10:59 Last Admin: 07/07/24 10:36 Dose: 10 mcg
[2024-07-07] MEDS: SODIUM CHLORIDE 0.9% 1,000 ML IV SCH (14:41)
--- NOTE | 2024-07-07 15:51 | Pharmacy Report ---
Pharmacy PK ABX Note - Date of Service July 07, 2024 - Assessment and Plan Assessment 07/07 Vancomycin to complete 7 days for treatment of enterococcal UTI. Random level 15.7 mcg/mL today. Predicts therapeutic dosing for through the next 3 doses, will continue previous dosing. 07/04 84 year old M receiving vancomycin for treatment of enterococcal UTI. Patient has an amoxicillin allergy thus avoiding using ampicillin/amoxicillin and complicated infection can't be ruled out due to patient's altered mental status. Patient has been admitted since 05/18 and had a Dominguez catheter placed 07/01. Patient is afebrile, however is confused and hypotensive with urinary retention per discussion with the provider. Day # 1 of antimicrobial therapy. Plan Vancomycin * Loading dose: 1500 mg IV x 1 * Maintenance dose: 1250 mg IV every 24 hours starting tomorrow * Regimen is predicted to achieve target AUC/AMBER of 400-600 mg/L.hr * Random level to be ordered with significant change in renal function. Pharmacy will continue to follow and will adjust dose/frequency as necessary. Thank you. Pharmacy has transitioned to AUC monitoring for vancomycin. AUC/AMBER is the preferred PK/PD target and is associated with decreased risk of nephrotoxicity compared to traditional trough targets.
[2024-07-07] MEDS: VANCOMYCIN HCL 1,250 MG in SODIUM CHLORIDE 0.9% 250 ML IV SCH (17:35)
[2024-07-08 07:45] VITALS: RESP 16
[2024-07-08 08:07] LABS: Hematocrit (blood only) 28.8 % (42.0-52.0); Hemoglobin 9.5 g/dl (14.0-18.0); Mean Corpuscular Hemoglobin 29.2 pg (25.0-34.0); Mean Corpuscular Volume 88.6 fL (80.0-100.0); Mean Platelet Volume 10.5 fL (9.4-12.4); Platelet Count 222 K/uL (130-400); RDW Coefficient of Variation 14.1 % (11.5-14.5); RDW Standard Deviation 45.7 fL (36.4-46.3); Red Blood Count 3.25 M/uL (4.70-6.10); White Blood Count 6.32 K/ul (4.8-10.8)
[2024-07-08 08:21] LABS: BUN Creatinine Ratio 23.6 (10-20); Calcium 8.4 mg/dl (8.6-10.3); Creatinine Clr Calc Pharmacy 34.5 ml/min; Potassium 3.6 mmol/L (3.5-5.1)
--- NOTE | 2024-07-08 08:53 | Palliative Care Progress Note ---
Date of Service July 08, 2024 Assessment & Plan Admission and Anticipated Discharge Date Admission Date: May 20, 2024 Results & Data Vital Signs (Past 12 Hours) Vital Signs Temp Pulse Resp BP Pulse Ox O2 Del Method 07/08/24 07:44 36.4 C L 56 L 16 124/55 L 94 Room Air 07/07/24 21:30 Room Air 07/07/24 21:06 36.8 C 72 18 109/59 L 95 Room Air PG Care Time/CCT Total # of Minutes Spent Total Time Spent with Patient: Total time spent is greater than 50% in coordination of care (as documented) at patient's floor/unit and/or counseling patient: Coding
--- NOTE | 2024-07-08 09:21 | Hospitalist Progress Note ---
Date of Service July 08, 2024 Assessment & Plan (1) Hypovolemia dehydration: (2) Urinary tract infection due to Enterococcus: (3) Recent cerebrovascular accident (CVA): (4) Acute kidney injury superimposed on CKD: (5) Hemiparesis affecting right side as late effect of cerebrovascular accident (CVA): (6) Aphasia due to recent cerebrovascular accident (CVA): (7) Acute urinary retention: (8) Acute drug-induced confusion: Plan Patient status post CVA with aphasia, waxing and waning mental status, right hemiparesis. Patient's oral intake waxes and wanes as well. Pt with labs on 07/06 that reflected dehydration and free water deficit given hypernatremia and elevated renal fxn, this is 2 to waxing and waning intake Patient being treated for Enterococcus UTI with vancomycin, will continue for a total of 7 days (EOT 07/09) treatment given complicated UTI in a male pt with a callaway catheter Callaway cath was exchanged on 07/01 Pt completed 24hrs of IVF, will continue additional IVF for 1 more L, repeat BMP in a.m. Communication with case management, have sent out additional applications for possible long-term care, at this time no one has accepted him. Pt daughter had extensive conversation today with palliative care provider Sue Tomas regarding goals of care. Plan is for Sue to meet with a local family member to further discuss. Pt unfortunately at baseline with gradual decline due to poor oral intake/lack of ability to feed self. This will be a vicious cycle unfortunately. I feel a goals of care decision is appropriate and pt may even benefit from hospice services to prevent from unwanted hospitalization and stress on pt given his current state. Continue therapies as able here in the hospital understanding that we are not a rehab facility Encourage free water intake, offer drink every 2 hours Had a long conversation over the phone with daughter Marcia today. She is feeling frustrated and helpless being out of state and trying to work on long- term placement for her dad. Reassured her that patient is getting excellent care and that he is at an optimized place with his new baseline. She understands. Asked palliative care for recommendations regarding pain control for R hand. 45 minutes spent on reviewing record, evaluation patient bedside, communication with nurse, communication with family, communication with other support services, interpretation of diagnostic data and placement of orders. Hospital Bed: . The patient has a medical condition which requires positioning of the body in ways not feasible with ordinary bed due to his CVA. He also needs HOB elevated more than 30 degrees due to concern for aspiration in hx of CVA. Admission and Anticipated Discharge Date Admission Date: May 20, 2024 Supervising Physician Co-Signing Physician Notes Pt seen and examined by me , care coordinated w/ Sussy Castillo PA-C, pls refer to her note above for further detail. Pt seen sitting up in bed in NAD. Reports having nasal congestion and RUE pain. Discussed w/RITCHIE Davidson on the floor - will start nasal spray, guaifenesin. Will try prn baclofen as well. On phys. exam pt has RUE contracture, and not moving his RLE. Lungs with some decreased breath sounds. Abdomen soft and nontender. Pt communicates w/ some difficulty but able to answer simple questions. CM involved in DC planning. MD Mayra I spent a total of 15 minutes coordinating, documenting, and providing care for this patient excluding time spend in the performance of separately billed services or time spent by another provider / QHP. Subjective Pt seen in 376-1.F/U CVA, awaiting placement. Difficult to understand with dysarthria but alert, appears comfortable, was able to communicate that he still having pain in right hand. Nursing staff said he ate a good breakfast and was able to hold his cup in his right hand. Review of Systems Review of Systems: Unable to properly obtain 2/2 patient's cognitive/mentation status. Physical Exam Physical Exam: Gen: WD/WN, NAD, resting in bed comfortably, alert, responsive, + baseline expressive aphasia HEENT: Normocephalic, atraumatic, conjunctivae moist, sclerae anicteric, mucous membranes moist Lung: Clear to Auscultation bilaterally, no wheezes/rales/rhonchi Heart: Regular rate, regular rhythm Abdomen: Soft, NT, ND +BS x 4 : + Callaway draining yellow urine Extremities: + R sided weakness (chronic), R hand with contracture, no edema Skin: Warm, no rash Results & Data Results & Data Vital Signs (Past 12 Hours) Vital Signs Temp Pulse Resp BP Pulse Ox O2 Del Method 07/08/24 07:44 36.4 C L 56 L 16 124/55 L 94 Room Air 07/07/24 21:30 Room Air Laboratory Results Short CBC 07/08/24 Range/Units 06:49 WBC 6.32 (4.8-10.8) K/ul Hgb 9.5 L (14.0-18.0) g/dl Hct 28.8 L (42.0-52.0) % Plt Count 222 (130-400) K/uL BMP 07/08/24 06:49 Sodium 142 Potassium 3.6 Chloride 112 H Carbon Dioxide 25 BUN 35 H Creatinine 1.48 H Glucose 121 H Calcium 8.4 L Diagnostic Findings Head CT 05/18/24 10:59 CT OF THE HEAD WITHOUT CONTRAST CLINICAL HISTORY: Altered mental status. COMPARISON STUDY: MRI of the brain and head CT and CTA of the head May 08, 2024. Head CT May 09, 2024. CT DOSE: 625.8 mGy.cm TECHNIQUE: Helical axial images of the head were obtained without IV contrast. Automated exposure control was utilized for the study. A dose lowering technique was utilized adhering to the principles of ALARA. FINDINGS: No acute intracranial hemorrhage, midline shift or mass effect is present. Ventricular system is unremarkable. Basal cisterns are patent. There are no extra-axial collections. A 5.3 cm hypodense focus with loss of crump-white differentiation within the left parietal lobe is noted. This favors a subacute infarct which has increased in extent since MRI of May 08, 2024. A few additional suspected subacute infarcts within left basal ganglia and left diego radiata are present. There is no mass effect. There is no evidence for hemorrhagic conversion. Punctate radiodensities within the left parietal lobe infarct favor calcifications. IMPRESSION: 1. No acute intracranial hemorrhage. No mass effect. 2. 5.3 cm hypodense focus with loss of crump-white differentiation within the left parietal lobe. This favors a subacute infarct with increase in extent since MRI of May 08, 2024. Several additional suspected subacute infarcts within the left basal ganglia and left diego radiata. ACT 112: Negative or not required by law. Electronically signed by: Issa Graf M.D. 05/18/2024 12:23 PM Chest X-Ray 05/18/24 11:00 XR chest 1V portable CLINICAL HISTORY: Altered mental status COMPARISON STUDY: Chest radiograph April 08, 2018. FINDINGS: Lung volumes are normal. There is no consolidation. Linear right lower lung density suggests atelectasis. There is no pneumothorax or pleural effusion. Cardiac size is normal. Mediastinal contours are normal. There is no evidence for pulmonary edema. IMPRESSION: No acute cardiopulmonary findings. ACT 112: Negative or not required by law. Electronically signed by: Issa Graf M.D. 05/18/2024 11:41 AM Abdomen/Pelvis CT 05/18/24 19:14 Exam(s): CT ABDOMEN + PELVIS Without Contrast EXAM: CT Abdomen and Pelvis Without Intravenous Contrast CLINICAL HISTORY: Lui hematuria. Assess. TECHNIQUE: Axial computed tomography images of the abdomen and pelvis without intravenous contrast. CTDI is 22.78 mGy and DLP is 1179.28 mGy-cm. Automated exposure control was utilized for the study. A dose lowering technique was utilized adhering to the principles of ALARA. COMPARISON: CT abdomen and pelvis with contrast dated 04/15/2018 FINDINGS: Artifacts: Scatter artifact likely related to patient's arm position. Limitations: There is respiratory artifact, which degrades image quality on multiple image slices. Lung bases: Curvilinear changes noted at the lung bases. No consolidation. ABDOMEN: Liver: Unremarkable. Gallbladder and bile ducts: Unremarkable. No calcified stones. No ductal dilation. Pancreas: Unremarkable. No ductal dilation. Spleen: Unremarkable. No splenomegaly. Adrenals: Unremarkable. No mass. Kidneys and ureters: The unenhanced kidneys demonstrate similar contours to the prior examination. No hydronephrosis, nephrolithiasis or ureteral stones. The previously noted cortical cyst posteriorly at the midpole of the left kidney is grossly stable, measuring approximately 8.5 mm. Detail evaluation limited. Stomach and bowel: No evidence for bowel obstruction. Evaluation of the bowel mucosa is slightly limited without contrast. Extensive diverticulosis noted involving the distal descending and sigmoid colon. No obvious diverticulitis. PELVIS: Appendix: A normal caliber appendix is noted in the right lower quadrant. Bladder: A Callaway catheter is noted in the bladder. There is extensive hyperdense material throughout the bladder. Is most consistent with hemorrhagic clot burden throughout the bladder. Detail evaluation limited without contrast. No stones. Reproductive: Prostatic hypertrophy. ABDOMEN and PELVIS: Intraperitoneal space: Unremarkable. No free air. No significant fluid collection. Bones/joints: No acute fracture. No dislocation. Soft tissues: Hyperdense crescentic and irregular soft tissue swelling noted superficial to the right common femoral vasculature at the right groin. Vasculature: Unremarkable. No abdominal aortic aneurysm. Lymph nodes: Unremarkable. No enlarged lymph nodes. IMPRESSION: 1. The unenhanced kidneys demonstrate similar contours to the prior examination. No hydronephrosis, nephrolithiasis or ureteral stones. The previously noted cortical cyst posteriorly at the midpole of the left kidney is grossly stable, measuring approximately 8.5 mm. Detail evaluation limited. 2. A Callaway catheter is noted in the bladder. There is extensive hyperdense material throughout the bladder. The appearance is most consistent with brain clot burden. No obvious focal bladder wall thickening. Detail evaluation limited. Prostatic hypertrophy. 3. Hyperdense crescentic and irregular soft tissue swelling noted superficial to the right common femoral vasculature at the right groin. Please correlate clinically for attempted vascular access in this region. Electronically signed by: George Newman MD 05/18/24 22:08 PM Abdomen/Pelvis CT 05/24/24 08:48 CT OF THE ABDOMEN AND PELVIS WITHOUT CONTRAST CLINICAL HISTORY: Gross hematuria. COMPARISON STUDY: CT of the abdomen and pelvis May 18, 2024. TECHNIQUE: Axial images of the abdomen and pelvis were obtained without IV contrast. Images were reviewed in the axial, sagittal, and coronal planes. Automated exposure control was utilized for the study. A dose lowering technique was utilized adhering to the principles of ALARA. FINDINGS: No pneumatosis, free air or portal venous gas is present. No renal, ureteral or bladder calculi are present. There is no hydronephrosis. A Callaway balloon within the bladder is noted. Hyperdense material within the bladder is again noted. This suggests a moderate amount of clot. Sensitivity for detection of urothelial lesions is diminished on unenhanced exam. Prostate is enlarged, measuring 6.5 cm in caliber. A small amount of hemorrhage within the right groin is noted. Density of the clot has decreased since prior CT. Evaluation the remainder of the abdomen and pelvis is suboptimal on this unenhanced examination. Liver, spleen, adrenal glands and pancreas are unremarkable with the exception of pancreatic glandular atrophy. There is no lymphadenopathy. There is no evidence for a bowel obstruction. Note is made of extensive colonic diverticulosis without evidence for acute diverticulitis. IMPRESSION: 1. No urinary calculi or hydronephrosis. 2. Moderate amount of hyperdense material within the bladder consistent with clot. Callaway balloon within the bladder. 3. Enlarged prostate. 4. Redemonstration of a small amount of hemorrhage within the right groin which has decreased in density since prior CT. ACT 112: Negative or not required by law. Electronically signed by: Issa Graf M.D. 05/24/2024 11:[address] 05/30/24 13:38 CT head without contrast History: Altered mental status Comparison: 05/18/2024 Technique: Using multidetector thin collimation helical acquisition technique, axial, coronal and sagittal CT images from the skull base to the vertex were obtained without intravenous contrast. Dose reduction techniques were achieved by using automatic exposure control and/or adjustment of mA and/or kV according to patient size and/or use of iterative reconstruction technique. Findings: No intracranial hemorrhage, mass-effect, or midline shift. The ventricles are proportionate to the cerebral sulci. There is marked cerebral atrophy. Evolving areas of previously seen infarct which are decreasing in conspicuity in the high left frontal lobe, the left caudate nucleus, and in the left temporal parietal lobe. No convincing evidence for new infarct. The basal cisterns are patent. The visualized paranasal sinuses are clear. Mastoid air cells are clear. Impression: No acute intracranial pathology. Electronically signed by Sathya Claire 05-30-2024 3:13 PM
[2024-07-08] MEDS ORDERED: BACLOFEN 10 MG TAB PO PRN (10:46)
[2024-07-08] MEDS: guaiFENesin SUGAR FREE 100 MG/5 ML UDC PO SCH (12:28)
[2024-07-08] MEDS: SODIUM CHLORIDE 0.65% NA SOLN 45 ML (OCEAN) ONE (13:12)
[2024-07-08] MEDS: SODIUM CHLORIDE 0.65% NA SOLN 45 ML (OCEAN) SCH (13:23)
[2024-07-08] MEDS: BACLOFEN 10 MG TAB PO PRN (13:23)
[2024-07-08 16:50] LABS: Hematocrit (blood only) 30.8 % (42.0-52.0); Hemoglobin 10.2 g/dl (14.0-18.0)
[2024-07-08 19:58] VITALS: TEMP 97.9
[2024-07-09 08:38] VITALS: BP 139/77; PULSE 82; O2SAT 94
[2024-07-09 09:36] LABS: Creatinine Clr Calc Pharmacy 40.2 ml/min
[2024-07-09] MEDS: DAPTOmycin 275 MG in SYRINGE 0 ML IV ONE (11:31)
--- NOTE | 2024-07-09 11:34 | Discharge Summary ---
Discharge Summary Date of Service July 09, 2024 Principal Dx & Hospital Course #1 = Principal Diagnosis (1) Hypovolemia dehydration: (2) Urinary tract infection due to Enterococcus: (3) Recent cerebrovascular accident (CVA): (4) Acute kidney injury superimposed on CKD: (5) Hemiparesis affecting right side as late effect of cerebrovascular accident (CVA): (6) Aphasia due to recent cerebrovascular accident (CVA): (7) Acute urinary retention: (8) Acute drug-induced confusion: Plan (1) Acute drug-induced confusion: (2) Aphasia due to recent cerebrovascular accident (CVA): (3) Acute urinary retention: Patient is an 84y/o M with PMHx significant for DMII, diabetic polyneuropathy, alcohol use, arthritis, gout, HTN, GERD, Anderson's esophagus, diverticulitis, CKD stage III and recent acute ischemic left MCA stroke who presented to the ED via EMS from [facility] on 05/18/2024 secondary to increased lethargy. Pertinent recent hospital course: Patient was recently admitted to [facility] on 05/08/2024 with acute onset of right- sided weakness and was ultimately found to have an acute CVA due to left MCA M3 branch occlusion, received TNK at that time. Had worsening expressive aphasia, new right-sided facial drooping and right hemiparesis on 05/09/2024, repeat CTA revealed possible residual thrombus in the M2 segment therefore the patient was transferred to [facility]. At [facility], CTP showed slowed perfusion in the left hemisphere. DSA was performed and no LVO was found, but LICA stent was placed. MRI brain showed multiple small acute infarcts in the left cerebral hemisphere, the largest in the parietal lobe. These are in the middle anterior cerebral artery distribution. Small petechial hemorrhage in the left postcentral gyrus. TTE showing small PFO, unlikely contributory. Clinical course was complicated by hyperactive delirium which required Precedex which was eventually transitioned to scheduled Seroquel. LTM EEG showed slowing but no epileptiform activity. Initially required NG tube due to poor oral tolerance but with resolution of his delirium he began eating PO. He was evaluated by speech therapy at [facility] who recommended soft & bite-sized solids with thin liquids. Was then discharged to [facility]. While there, had Seroquel dose increased due to agitation (75mg HS) and presented from [facility] to [facility] on 05/18/[address] from 05/18/2024 showed subacute infarcts similar in distribution to areas of infarct seen on brain MRI done 05/10/24 at [facility] per [facility] records. Acute Drug-Induced Confusion, Delirium Severe Expressive Aphasia & Cognitive Changes 2/2 Recent CVA Repeat head CT on 05/30 negative, shows evolving changes of recent CVA but decreasing in size. Likely new cognitive baseline in setting of recent CVA and severe expressive aphasia. During lengthy admission, Seroquel discontinued. Titrated Zyprexa and Abilify to optimize treatment. More alert, redirectable. Abilify 5mg BID stopped on 07/04. Continue Zyprexa PO 5mg QHS at discharge. Delirium precautions. Noted R arm contracture. Did add Baclofen 5mg BID PRN for post-CVA pain in R hand, continue diclofenac gel BID Continue DAPT and statin for recent CVA Encourage free water intake, offer drink every 2 hours Continue aspiration precautions, elevating HOB Acute Urinary Retention Patient required straight cath x 3 in 24 hours Dominguez exchanged on 07/01, started tamsulosin UCx + Enterococcus facialis - completed 7 day treatment course as of 07/09 CKD Stage III Cr was previously elevated at 1.85 on admission, trended up to 2.57 on 05/22/2024. Downtrended to 1.2 on 06/20/24 [facility] [Dr. Mackey] Cr back to baseline ~.127. Recommend repeat BMP 1 week HTN All BP meds were previously on hold 2/2 relative hypotension Losartan, chlorthalidone and hydralazine all discontinued during admission Patient remains normotensive DM II Chronic, stable Hgb A1c was 7.2 on 05/09/2024 SSI discontinued 2/2 lower BSGs Given condition/age, tight BSG control not recommended. Continue BSG checks BID Anemia Hgb 10.2 (baseline 10-11) Continue iron, B12 supplementation Nutrition has improved now more alert Recommend repeat CBC in 1 week to monitor Called daughter Marcia with update. Patient discharging to [facility] today. Notes For Next Care Provider Likely new cognitive baseline in setting of recent CVA and severe expressive aphasia. Continue Zyprexa PO 5mg QHS at discharge. Continue DAPT and statin for recent CVA UCx + Enterococcus facialis - completed 7 day treatment course as of 07/09 Medication Changes From Visit 60 Admission HPI Per Admitting Provider This is an 84 y/o male with recent acute CVA, DM2, CKD3, MCI, HTN, GERD, dyslipidemia, and other history as outlined below who presented to the ED today from [facility] with increased lethargy. Pt was recently admitted to [facility] on 05/08 with acute CVA due to left MCA M3 branch occlusion - received TNK per [facility] neuro evaluation. Developed expressive aphasia and word finding after administration of TNK but had significant improvement in the right sided weakness. Early on 05/09, pt had worsening expressive aphasia, new right facial droop, and right hemiparesis. Repeat CT head did not show any new acute intr acranial findings but CTA showed possible residual thrombus in the M2 segment so pt was transferred to [facility] for possible thrombectomy. DSA showed no LVO so he was treated with LICA stent and DAPT. While admitted at [facility], he did have issues with hyperactive delirium that was initially treated with Precedex before being transitioned to oral Seroquel. The dose was rapidly titrated to the disch arge dose of 25 mg in the AM, 50 mg HS, which seemed to control the symptoms per neurology notes from [facility]. He was evaluated by speech therapy who recommended soft & bite-sized solids with thin liquids, HOB at 90 degrees for all intake including meds. Pt was discharged to [facility] yesterday for rehab. His [facility] chart was extensively reviewed including recent neurology notes and imaging from admission to assist with history today due to pt's lethargy and expressive aphasia. Report from [facility] was that patient was more agitated last evening so given 75 mg of Seroquel instead of his usual dose. Since then, pt has been sleeping and difficult to arouse so he was sent to the ED for evaluation. History from the patient is unobtainable due to the expressive aphasia. He was more arousable at the time of my evaluation. Admission Exam Per Admitting Provider General: Elderly man in no distress Eyes: PERRL, conjunctivae normal, not pale, anicteric sclerae, EOM intact bilaterally ENMT: External ear and nose normal, oropharynx normal Respiratory: Normal respiratory effort, no respiratory distress, lungs clear to auscultation, no crackles and no wheezes Cardiovascular: RRR S1 S2 Gastrointestinal (Abdomen): Abdomen is not distended, soft, non-tender to palpation, no guarding, no palpable hepatosplenomegaly, normal bowel sounds Musculoskeletal: No pedal edema Skin: Maculopapular rash on trunk. Multiple areas of ecchymoses/bruise in lower right groin, legs Neurologic: Awake, alert, +expressive aphasia. Follows simple commands. Right hemiparesis Discharge Exam Gen: WD/WN, NAD, resting in bed comfortably, alert, responsive, + baseline expressive aphasia HEENT: Normocephalic, atraumatic, conjunctivae moist, sclerae anicteric, mucous membranes moist Lung: Clear to Auscultation bilaterally, no wheezes/rales/rhonchi Heart: Regular rate, regular rhythm Abdomen: Soft, NT, ND +BS x 4 : + Dominguez draining yellow urine Extremities: + R sided weakness (chronic), R hand with contracture, no edema Skin: Warm, no rash Updated Medication List Medication Instructions Recorded Confirmed Type aspirin 81 mg tablet,delayed 81 mg PO DAILY 07/18/22 05/18/24 History release cholecalciferol (vitamin D3) 10 20 mcg PO DAILY 07/18/22 05/18/24 History mcg (400 unit) tablet (Vitamin D3) cyanocobalamin (vitamin B-12) 1,000 mcg PO QPM 07/18/22 05/18/24 History 1,000 mcg tablet (Vitamin B-12) empagliflozin 25 mg tablet 25 mg PO QAM 07/18/22 05/18/24 History (Jardiance) ferrous sulfate 325 mg (65 mg 325 mg PO QPM 07/18/22 05/18/24 History iron) tablet lzzttipwnry-rrthstezi-dds C-Mn 500 1 cap PO AMHS 07/18/22 05/18/24 History mg-400 mg capsule allopurinol 100 mg tablet 100 mg PO DAILY 05/08/24 05/18/24 History latanoprost 0.005 % eye drops 1 drp OPB QPM 05/08/24 05/18/24 History acetaminophen 325 mg tablet 650 mg PO QID PRN Fever Or Pain 05/18/24 05/18/24 History atorvastatin 40 mg tablet 40 mg PO PM 05/18/24 05/18/24 History chlorhexidine gluconate 0.12 % 15 ml buccal BID 05/18/24 05/18/24 History mouthwash clopidogrel 75 mg tablet 75 mg PO DAILY 05/18/24 05/18/24 History melatonin 3 mg tablet 3 mg PO HS 05/18/24 05/18/24 History pantoprazole 40 mg tablet,delayed 40 mg PO DAILY 05/18/24 05/18/24 History release baclofen 10 mg tablet 5 mg (1/2 x 10 mg) PO BID PRN 07/09/24 Rx muscle spasm #30 tabs diclofenac sodium 1 % topical gel 2 g EXT BID #100 grams 07/09/24 Rx (Voltaren Arthritis Pain) magnesium oxide 400 mg (241.3 mg 400 mg PO QAM #30 tabs 07/09/24 Rx magnesium) tablet olanzapine 5 mg tablet 5 mg PO HS #30 tabs 07/09/24 Rx sennosides 8.6 mg tablet (senna) 8.6 mg PO BID PRN constipation #30 07/09/24 05/18/24 Rx tabs tamsulosin 0.4 mg capsule 0.4 mg PO HS #30 caps 07/09/24 Rx Hospital Stay Data Consultations 05/18/24 12:31 ED Decision to Admit Stat 05/18/24 19:14 Consult Urology Routine 07/06/24 12:58 Consult Palliative Care Routine Diagnostic Imagining Performed 05/18/24 10:59 CT head/brain wo con Stat 05/18/24 19:14 CT Abd and Pelvis [CT abd pelvis wo con] Urgent 05/24/24 08:48 CT Abd and Pelvis [CT abd pelvis wo con] Urgent 05/30/24 13:[address] [CT head/brain wo con] Urgent Pending Results Patient Have Any Pending Studies at Discharge: No Discharge Instructions Given to Patient (Per Discharging Provider) MEDICATION CHANGES: Continue olanzapine 5mg PO HS Continue tamsulosin 0.4mg PO HS Continue Baclofen 5mg BID PRN for R hand/arm pain Continue magnesium supplement Blood pressure medications were discontinued during admission, remains normotensive SUMMARY OF TEST RESULTS: Admitted for acute drug-induced confusion. Seroquel discontinued. Olanzapine 5mg PO HS has been effective at optimizing new baseline in setting of recent CVA and severe expressive aphasia. Repeat head CT on 05/30 negative, shows evolving changes of recent CVA but decreasing in size. Developed acute urinary retention during admission. Dominguez exchanged on 07/01. Completed 7 days antibiotic course on 07/09 for Enterococcus UTI. Continue Flomax PENDING TEST RESULTS: None RECOMMENDATIONS FOR FOLLOW-UP: Follow up with PCP as scheduled. Repeat CBC and BMP in one week to monitor. Cr at baseline 1.27, Hgb 10.2. Continue medication regimen as scheduled aside from changes noted above. OTHER INSTRUCTIONS: Seek medical attention if you have: * temperature above 101 * chest pain or trouble breathing * abdominal pain, nausea, vomiting * diarrhea, dark stools or bloody stools * any unanswered questions or concerns Call 911 if symptoms are severe. Please take good care of yourself. Call if you have any questions or problems. You can reach a [facility] hospitalist on duty at [facility] 24 hours a day by calling [phone]. Total Time Total Time Spent Total Time Spent (In Minutes): 60 Supervising Physician Co-Signing Physician Notes Pt seen and examined by me , care coordinated w/ Messi. SAKINA Castillo, pls refer to her note above for further detail. Pt seen resting in bed in NAD, pt has RUE contracture, and not moving his RLE (due to CVA). Lungs with decreased breath sounds. Abdomen soft and nontender. + Dominguez. Pt communicates w/ some difficulty but able to answer simple questions. Pt has been calm and cooperative. Finished treatment w/ vancomycin. Medication changes as described in detail in the note. MD Mayra
== END 2024-07-09 12:05 | disposition home or self-care (01) | DRG 948 ==
LOC: 2N 10:52 → ED 10:52 → SUATTDRO 13:28 → 2N 14:44 → SUATTDRO 05-20 16:06 → 3N 06-01 17:37